=== PATIENT | female | born 1950 | race Caucasian/White ===

== ENCOUNTER 2016-08-29 19:37 | Inpatient (IN) | payer MEDICARE, OTHER ==
[2016-08-29] MEDS ORDERED: SODIUM CHLORIDE 0.9% 1,000 ML IV STA (20:14)
[2016-08-29 20:28] LABS: Basophils # (A) 0.1 k/uL (0-0.2); Basophils % (A) 1 %; CH 27.8; CHCM 33.2; Eosinophils # (A) 0.2 k/uL (0-0.7); Eosinophils % (A) 2 %; HCT 39.1 % (34.0-46.0); HDW 2.71; HGB 12.7 gm/dL (11.4-16.0); Luc # (Auto) 0.14; Luc % (Auto) 2; Lymphocytes # (A) 1.3 k/uL (1.0-4.8); Lymphocytes % (A) 14 %; MCH 27.3 pg (25.0-35.0); MCHC 32.4 g/dL (31.0-37.0); Monocytes # (A) 0.4 k/uL (0-1.0); Monocytes % (A) 5 %; Neutrophils # (A) 6.9 k/uL (1.3-7.7); Neutrophils % (A) 77 %; RBC 4.64 m/uL (3.80-5.40); RDW 15.2 % (11.5-15.5); WBC (Perox) 9.68
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
[2016-08-29] MEDS ORDERED: ONDANSETRON 4 MG/2 ML VIAL IVP STA (20:32)
[2016-08-29 20:36] LABS: ALT 34 U/L (9-52); AST 26 U/L (14-36); Alkaline Phosphatase 113 U/L (38-126); Anion Gap 13 mmol/L; Blood Urea Nitrogen 12 mg/dL (7-17); Calcium 9.5 mg/dL (8.4-10.2); Carbon Dioxide 23 mmol/L (22-30); Chloride 110 mmol/L (98-107); Glucose 113 mg/dL (74-99); Magnesium 1.8 mg/dL (1.6-2.3); Non-African American GFR(MDRD) >60 (>60 ml/min/1.73 sqM); Potassium 4.1 mmol/L (3.5-5.1); Sodium 146 mmol/L (137-145); Total Bilirubin 0.5 mg/dL (0.2-1.3); Total Protein 7.3 g/dL (6.3-8.2)
[2016-08-29 20:38] LABS: Creatine Kinase 116 U/L (30-135)
[2016-08-29 20:40] LABS: MCV 84.3 fL (80.0-100.0)
[2016-08-29 20:41] LABS: INR 1.1 (<1.1); Partial Thromboplastin Time 23.1 sec (22.0-30.0); Prothrombin Time 10.7 sec (9.0-12.0)
[2016-08-29 20:52] LABS: Creatine Kinase MB 1.2 ng/mL (0.0-2.4); Troponin I <0.012 ng/mL (0.000-0.034)
[2016-08-29] MEDS ORDERED: MORPHINE SULFATE 4 MG/ML SYRINGE IVP STA (21:39)
[2016-08-29] MEDS ORDERED: HYDROmorphone 2 MG/ML 1 ML SYRINGE IVP STA (21:40)
--- NOTE | 2016-08-29 21:43 | XR ---
EXAMINATION TYPE: XR chest 2V DATE OF EXAM: 08/29/2016 9:37 PM COMPARISON: 06/21/2016 HISTORY: Chest pain TECHNIQUE: Frontal and lateral views of the chest are obtained. FINDINGS: There is no heart failure nor confluent pneumonic infiltrate. Heart and mediastinum are no rmal. There are no hilar masses. There are chest leads. Bony thorax is intact. IMPRESSION: No active cardiopulmonary disease. No change.
[2016-08-29] MEDS ORDERED: IPRATROPIUM-ALBUTEROL 3 ML NEB INHALATION PRN (22:41)
[2016-08-29] MEDS ORDERED: IPRATROPIUM-ALBUTEROL 3 ML NEB INHALATION STA (22:41)
[2016-08-29] MEDS: FUROSEMIDE 10 MG/ML 4 ML VIAL IV SCH (22:53)
[2016-08-30] MEDS: HYDROmorphone 1 MG/ML 1 ML SYRINGE IVP PRN ×3 (00:25→08:55)
[2016-08-30] MEDS: ONDANSETRON 4 MG/2 ML VIAL IVP PRN ×2 (02:10→09:00)
[2016-08-30] MEDS: ENOXAPARIN 40 MG/0.4 ML SYRINGE SQ SCH (08:55)
[2016-08-30] MEDS ORDERED: CHOLESTYRAMINE (WITH SUGAR) 4 GM PACKET PO PRN (09:07)
[2016-08-30 09:41] LABS: Basophils % (A) 1 %; CH 27.5; CHCM 31.7; Eosinophils # (A) 0.2 k/uL (0-0.7); Eosinophils % (A) 3 %; HCT 37.4 % (34.0-46.0); HDW 2.65; HGB 11.9 gm/dL (11.4-16.0); Hypochromasia Slight; Luc % (Auto) 1; Lymphocytes # (A) 1.2 k/uL (1.0-4.8); Lymphocytes % (A) 16 %; MCH 27.6 pg (25.0-35.0); MCHC 31.7 g/dL (31.0-37.0); MCV 87.3 fL (80.0-100.0); Mean Platelet Volume 7.8; Monocytes # (A) 0.6 k/uL (0-1.0); Monocytes % (A) 7 %; Neutrophils # (A) 5.4 k/uL (1.3-7.7); Neutrophils % (A) 72 %; RBC 4.29 m/uL (3.80-5.40); RDW 15.2 % (11.5-15.5); WBC 7.5 k/uL (3.8-10.6); WBC (Perox) 7.88
[2016-08-30 09:44] LABS: ALT 39 U/L (9-52); AST 21 U/L (14-36); Alkaline Phosphatase 97 U/L (38-126); Anion Gap 14 mmol/L; Blood Urea Nitrogen 13 mg/dL (7-17); Carbon Dioxide 24 mmol/L (22-30); Chloride 108 mmol/L (98-107); Glucose 111 mg/dL (74-99); Non-African American GFR(MDRD) >60 (>60 ml/min/1.73 sqM); Potassium 4.1 mmol/L (3.5-5.1); Sodium 146 mmol/L (137-145); Total Bilirubin 0.5 mg/dL (0.2-1.3)
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
[2016-08-30] MEDS ORDERED: LISINOPRIL 2.5 MG TAB PO SCH (10:00)
[2016-08-30] MEDS ORDERED: LISINOPRIL 5 MG TAB PO SCH (10:15)
[2016-08-30] MEDS: IPRATROPIUM-ALBUTEROL 3 ML NEB INHALATION SCH ×4 (11:26→21:30)
[2016-08-30] MEDS: FUROSEMIDE 10 MG/ML 4 ML VIAL IV SCH ×3 (11:46→20:10)
[2016-08-30] MEDS: HYDROcodone/APAP 7.5-325MG 1 EACH TAB PO PRN ×3 (13:17→20:46)
--- NOTE | 2016-08-30 13:38 | CONS ---
DATE OF CONSULTATION: Renée Krishnan is a 66-year-old female who presented with increasing shortness of breath and audible wheezing and stated that she had swelling in her legs. She was at [facility]. When she came in, she was treated with IV Lasix and she felt a lot better. She follows up with Dr. Cruz in the office. In November 2015, she underwent a coronary angiogram which showed normal coronary arteries and an ejection fraction of 60%. So far, her BNP is 592, troponin is negative x2. Her blood pressure was elevated at 153/75 mmHg. Medication list was reviewed and includes cholestyramine, Lasix, trazodone, omeprazole, melatonin, metoprolol succinate 25 mg daily, levothyroxine. Allergies to KETOROLAC, NSAIDS, PROCHLORPERAZINE, TRAMADOL and MORPHINE. REVIEW OF SYSTEMS: No fever, chills, or rigors. She did have a cough, phlegm, audible wheezing. No nausea, vomiting or diarrhea. No hematuria or dysuria. No strokes or seizures. She has back pain and lower extremity swelling. On examination, she is afebrile. Her blood pressure was 153/75 mmHg and 185/77 mmHg. Head and neck examination is normal. She is morbidly obese. Heart sounds S1 and S2 are soft. Breath sounds are reduced bilaterally with bilateral rhonchi. Extremities are warm. I do not see any pitting edema. ECG is normal. Cardiac enzymes have been normal. IMPRESSION: 1. Uncontrolled hypertension. 2. Morbid obesity, likely sleep apnea. 3. Diastolic heart failure secondary to uncontrolled hypertension. 4. Noncompliance with Lasix and medical treatment. SUGGEST: Maximize RENETTA inhibitors, add spironolactone. Continue IV Lasix and in the next 1 to 2 days she can switch to p.o. Lasix. This lady was prescribed Lasix and had not been taking it. She follows with Dr. Cruz and will continue to do so. Her main problem is hypertension and it is quite likely she may have sleep apnea. Without addressing that, her problems will continue.
--- NOTE | 2016-08-30 15:05 | ECHOF ---
Referral Reason:Shortness of breath CHF MEASUREMENTS -------- HEIGHT: 157.5 cm WEIGHT: 124.7 kg BP: IVSd: 1.1 cm (0.6 - 1.1) LVIDd: 4.8 cm (3.9 - 5.3) LVPWd: 1.0 cm (0.6 - 1.1) LVIDs: 3.5 cm LA Diam: 3.6 cm (2.7 - 3.8) RVIDd: 3.0 cm (< 3.3) Ao Diam: 3.3 cm (2.0 - 3.7) LA Diam: 3.9 cm (2.7 - 3.8) AV Cusp: 1.7 cm (1.5 - 2.6) EPSS: 0.3 cm MV E Izaiah: 0.64 m/s MV DecT: 249 ms MV A Izaiah: 1.23 m/s MV E/A Ratio: 0.52 RAP: 5.00 mmHg RVSP: 16.86 mmHg MV EF SLOPE: 116.60 mm/s (70 - 150) MV EXCURSION: 19.09 mm (> 18.000) FINDINGS -------- Sinus rhythm. This was a technically adequate study. Morbid Obesity There is mild concentric left ventricular hypertrophy. Overall left ventricular systolic function is low-normal with, an EF between 50 - 55 %. The right ventricle is normal in size. The left atrial size is normal. The right atrial size is normal. There is mild aortic valve sclerosis. There is no evidence of aortic regurgitation. Mild mitral annular calcification present. Mild mitral regurgitation is present. Mild tricuspid regurgitation present. There is no evidence of pulmonary hypertension. The right ventricular systolic pressure, as measured by Doppler, is 16.86mmHg. There is no pulmonic regurgitation present. The aortic root size is normal. There is no pericardial effusion. CONCLUSIONS -------- 1. Morbid Obesity 2. There is mild concentric left ventricular hypertrophy. 3. Overall left ventricular systolic function is low-normal with, an EF between 50 - 55 %. 4. There is mild aortic valve sclerosis. 5. Mild mitral annular calcification present. 6. Mild mitral regurgitation is present. 7. Mild tricuspid regurgitation present. 8. There is no evidence of pulmonary hypertension. 9. The right ventricular systolic pressure, as measured by Doppler, is 16.86mmHg. TRAINING AND DEVELOPMENT ASSISTANT: Jeni Shipley RDCS
--- NOTE | 2016-08-30 15:14 | CONS ---
DATE OF CONSULTATION: Renée Krishnan is a 66-year-old female who presented to the ED at [facility] with increasing shortness of breath. She had recently been at [facility] when she had fallen down and was there for approximately 7 days. She subsequently was sent to the rehab and gained about 30 pounds, most likely of fluid. She had been home and subsequently became worse as far as shortness of breath goes. She came to the ER and was admitted for further evaluation. She denied any fever or chills. The patient also had been having some occasional cough and some wheezing. Past medical history is positive for angina, congestive heart failure, osteoarthritis, upper GI bleed, peptic ulcer disease, prolapsed heart valve, irregular heartbeat occasionally, nephrolithiasis, eczema, chronic lower extremity edema, right lower extremity fracture, C. difficile colitis, adenoidectomy, bladder surgery, cholecystectomy, joint replacement in the form of right knee replacement, right knee arthroscopy, left hip replacement. Family history is positive for cancer in her father who of lung cancer. Mother had a history of coronary artery disease and lupus. The patient is a never smoker, does not drink alcohol excessively. Medications prior to admission were trazodone, omeprazole, Toprol XL, melatonin, Synthroid, hydrocodone with acetaminophen, Lasix, cholestyramine. The patient is allergic to TORADOL, NONSTEROIDAL ANTI-INFLAMMATORIES, COMPAZINE, MORPHINE and TRAMADOL. Review of systems is noncontributory except for obesity. On physical examination, respiratory rate is 18, pulse rate 82, temperature 97.5, blood pressure 143/71, O2 sat on room air is 95%. HEENT reveals pupils are equal. Mild prominence of the jugular vein. Chest reveals decreased breath sounds, prolonged expiration wheeze only on forced expiration. There are occasional basal crackles. Cardiovascular system reveals an S1 and S2. Abdomen is soft. There is 2+ pedal edema. Labs reveal a white count of 9, hemoglobin 12.7. Sodium 146, potassium 4.1, chloride 110, bicarb 23. Glucose 113. Albumin 4.4. Lipase is 164. NT-proBNP of 592. Troponin less than 0.012. Chest x-ray shows no active cardiopulmonary disease. IMPRESSION: 1. Shortness of breath that is multifactorial in part due to obesity and congestive heart failure due to most likely diastolic etiology with acute exacerbation. 2. Asthma. 3. Super obesity. 4. Narcotic dependence. 5. Possible obstructive sleep apnea though patient insists that she does not have obstructive sleep apnea as she apparently does not snore. At this point in time, would continue her on albuterol with ipratropium, aggressively diurese her with Lasix, keep her on GI and DVT prophylaxis. Add inhaled steroids to her regimen. Increase her activity level. We will follow closely with you and appreciate the opportunity to participate in her care.
[2016-08-30] MEDS: PANTOPRAZOLE 40 MG TABLET PO SCH (17:00)
[2016-08-30] MEDS: traZODone HCL 50 MG TAB PO SCH (20:07)
[2016-08-30] MEDS: MELATONIN 5 MG TABLET PO SCH (20:07)
[2016-08-30] MEDS: ALPRAZolam 0.25 MG TAB PO PRN (20:46)
[2016-08-30] MEDS ORDERED: LISINOPRIL 10 MG TAB PO SCH (21:00)
[2016-08-30] MEDS: BUDESONIDE 0.5 MG/2 ML NEBU INHALATION SCH (21:30)
[2016-08-31] MEDS: HYDROcodone/APAP 7.5-325MG 1 EACH TAB PO PRN ×5 (00:49→22:47)
[2016-08-31] MEDS ORDERED: LEVOTHYROXINE 75 MCG TAB PO SCH (06:30)
[2016-08-31] MEDS: IPRATROPIUM-ALBUTEROL 3 ML NEB INHALATION SCH ×4 (08:18→19:44)
[2016-08-31] MEDS: BUDESONIDE 0.5 MG/2 ML NEBU INHALATION SCH ×2 (08:18→19:44)
[2016-08-31 08:30] LABS: Potassium 4.7 mmol/L (3.5-5.1); Total Bilirubin 0.6 mg/dL (0.2-1.3); Total Protein 6.4 g/dL (6.3-8.2)
--- NOTE | 2016-08-31 10:04 | P.PN ---
Subjective 66-year-old female being seen this morning on rounds. Patient states that she could not take the IV Lasix last evening "did not want to be up on my going to the bathroom" the Lasix dose was held. Did note the creatinine is up this morning 2.1 on admission the creatinine was 0.8 did note the patient additionally had a low blood pressure systolic in the 70s at 4:00 in the morning currently patient states breathing feels slightly improved but continues to feel short of breath with any exertion. Did note cardiology's recommendations maximize the RENETTA inhibitor , Aldactone continue IV Lasix for the next couple days. It's also noted the patient has not been compliant in the outpatient setting with taking Lasix additionally pulmonology consultation was requested recommendations noted and appreciated and reviewed. Patient's shortness of breath was felt to be multifactorial partly due to morbid obesity congestive heart failure likely diastolic with an acute exacerbation. Patient likely has obstructive sleep apnea even though the patient insists that she does not snore Currently we'll hold lisinopril Lasix and Aldactone given the creatinine going up to 2 Echocardiogram was obtained did show an ejection fraction 50-55% no evidence of pulmonary hypertension Objective - Vital Signs Vital signs: Vital Signs Temp 97.4 F L 08/31/16 07:39 Pulse 86 08/31/16 08:36 Resp 18 08/31/16 07:39 BP 100/55 08/31/16 07:39 Pulse Ox 96 08/31/16 08:22 Intake & Output 08/30/16 08/31/16 08/31/16 18:59 06:59 18:59 Intake Total 360 240 Balance 360 240 Weight 147.5 kg Intake: Oral 360 240 Other: Voiding Method Bedside Commode Bedside Commode # Voids 1 1 # Bowel Movements 0 - Exam Physical exam 66-year-old female resting in bed states breathing feels slightly improved but continues to feel short of breath with exertion Lungs no audible wheezing diminished at the bases upper airways adequate air movement sats are 93% on room air Heart S1-S2 audible regular denying chest pain Abdomen obese soft nontender states urinating no difficulty denying any frequent stooling Extremities a trace pedal edema bilaterally - Labs CBC & Chem 7: 08/30/16 06:14 08/31/16 07:26 Labs: Abnormal Lab Results - Last 24 Hours (Table) 01/29/17 Range/Units 07:26 BUN 23 H (7-17) mg/dL Creatinine 2.13 H (0.52-1.04) mg/dL Glucose 105 H (74-99) mg/dL TSH 6.520 H (0.465-4.680) mIU/L Assessment and Plan Plan: Impression Present on admission shortness of breath increase edema to the lower extremities suspect exacerbation asthma and diastolic heart failure Super morbid obesity BMI 50.3 Heart catheterization November 2015 no evidence of coronary artery occlusive disease EF per LV gram 60% Chronic lower back pain narcotic dependence History of osteoarthritis involving the lumbar spine History of irritable bowel syndrome Hypothyroid on supplements EGD in June 2016 showed gastritis no acute findings Super morbid obesity suspect undiagnosed obstructive sleep apnea Chronic diastolic heart failure Acute renal failure suspect due to diuresing and hypovolemic Echocardiogram left ventricular systolic function normal EF 50-55% with no pulmonary hypertension echo done August 30 Plan Resume home meds as appropriate hold RENETTA inhibitor, Lasix, Aldactone Start aerosol bronchodilator Patient would benefit from Weight loss Monitor electrolytes keep in a therapeutic range DVT and GI prophylaxis Lasix 40 IV every 12 monitor the response we'll hold given creatinine up Low-sodium diet Daily weights Start RENETTA inhibitor monitor blood pressure and potassium level will hold Further recommendations pending will follow The above dictated assessment and findings were discussed with dr paez. Impression and the plan of care have been dictated as directed. Tessa Hawk nurse practitioner acting as a scribe for dr paez
[2016-08-31] MEDS: ALPRAZolam 0.25 MG TAB PO PRN ×2 (10:06→21:44)
[2016-08-31] MEDS: METOPROLOL SUCCINATE (ER) 25 MG TAB.ER.24H PO SCH (10:07)
[2016-08-31] MEDS: PANTOPRAZOLE 40 MG TABLET PO SCH ×2 (10:07→18:46)
[2016-08-31] MEDS: ENOXAPARIN 40 MG/0.4 ML SYRINGE SQ SCH (10:07)
[2016-08-31] MEDS: SPIRONOLACTONE 25 MG TAB PO SCH (10:15)
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
[2016-08-31] MEDS: SODIUM CHLORIDE 0.9% 1,000 ML IV SCH (11:21)
[2016-08-31] MEDS ORDERED: LEVOTHYROXINE 25 MCG TAB PO ONE (12:00)
--- NOTE | 2016-08-31 12:37 | US ---
EXAMINATION TYPE: US kidneys/renal and bladder DATE OF EXAM: 08/31/2016 12:27 PM COMPARISON: NONE CLINICAL HISTORY: [facility] EXAM MEASUREMENTS: Right Kidney: 9.6 x 5.6 x 5.4 cm Left Kidney: unable to visualize at this time TECHNOLOGIST IMPRESSION: portions visualized appear wnl. Limited examination due to body habitus, lo w patient tolerance (disgruntled about getting examination), and low cooperation (not rolling or hold ing breath during exam). Right Kidney: portions visualized appear wnl Left Kidney: not visualized at this time Bladder: not seen at this time likely due to bladder not filled Bilateral Jets seen: Not at this time There is no evidence for hydronephrosis at this point in time. No nephrolithiasis is seen. No celestine s are identified. The urinary bladder is anechoic. IMPRESSION: The right kidney is small without evidence of mass or obstruction. Left kidney is not identified.
[2016-08-31 14:27] LABS: Amorphous Sediment,Urine Rare /hpf; Appearance,Urine Turbid (Clear); Bacteria,Urine Few /hpf; Bilirubin,Urine Negative (Negative); Glucose,Urine (UA) Negative (Negative); Ketones,Urine Trace (Negative); Leukocyte Esterase,Urine Large (Negative); Mucus,Urine Occasional /hpf; Nitrite,Urine Negative (Negative); Particle Count 16089; Protein,Urine 1+ (Negative); Squamous Epithelial Cell,Urine 2 /hpf (0-4); UA Billing (MACRO vs. MICRO) MICRO; Urobilinogen,Urine <2.0 mg/dL (<2.0); WBC,Urine >182 /hpf (0-5)
--- NOTE | 2016-08-31 18:12 | PN ---
Renée Krishnan is a 66-year-old female who came in with fluctuating but elevated blood pressures. She is lying comfortably in bed today. Her blood pressure is in the mid 90s to low 100s. I started on RENETTA inhibitors and spironolactone. Today her blood pressure is 93/45 mm of mercury and 82/55 millimeters of mercury, her Lasix was discontinued. She is afebrile, heart rate is in the 80s. Head and neck examination is normal. Heart sounds are normal. Breath sounds are normal. No rhonchi. No crackles. EXTREMITIES: Warm. No edema. IMPRESSION: Uncontrolled hypertension currently now with low blood pressure. Suggest: Hold spironolactone and hold the Zestril for now. We will restart at a low dose tomorrow.
[2016-08-31] MEDS: traZODone HCL 50 MG TAB PO SCH (21:44)
[2016-08-31] MEDS: MELATONIN 5 MG TABLET PO SCH (21:44)
[2016-08-31] MEDS: MORPHINE SULFATE ER 15 MG TABLET PO PRN (21:44)
[2016-08-31] MEDS: CIPROFLOXACIN HCL 250 MG TAB PO SCH (21:44)
[2016-09-01] MEDS: LEVOTHYROXINE 100 MCG TAB PO SCH (05:23)
[2016-09-01] MEDS: LEVOTHYROXINE 75 MCG TAB PO SCH (05:23)
[2016-09-01] MEDS: HYDROcodone/APAP 7.5-325MG 1 EACH TAB PO PRN ×3 (05:44→22:32)
[2016-09-01] MEDS: SODIUM CHLORIDE 0.9% 1,000 ML IV SCH (05:46)
[2016-09-01 07:32] LABS: Basophils % (A) 1 %; CH 27.2; CHCM 31.5; Eosinophils # (A) 0.3 k/uL (0-0.7); Eosinophils % (A) 7 %; HCT 34.7 % (34.0-46.0); HDW 2.59; HGB 10.9 gm/dL (11.4-16.0); Hypochromasia Slight; Luc # (Auto) 0.17; Luc % (Auto) 3; Lymphocytes # (A) 1.3 k/uL (1.0-4.8); Lymphocytes % (A) 25 %; MCH 27.3 pg (25.0-35.0); MCHC 31.5 g/dL (31.0-37.0); MCV 86.6 fL (80.0-100.0); Mean Platelet Volume 6.7; Monocytes # (A) 0.4 k/uL (0-1.0); Monocytes % (A) 8 %; Neutrophils # (A) 2.9 k/uL (1.3-7.7); Neutrophils % (A) 57 %; RDW 14.7 % (11.5-15.5); WBC 5.1 k/uL (3.8-10.6); WBC (Perox) 5.49
[2016-09-01 07:45] LABS: Potassium 4.4 mmol/L (3.5-5.1); Total Bilirubin 0.5 mg/dL (0.2-1.3); Total Protein 6.2 g/dL (6.3-8.2)
[2016-09-01] MEDS: IPRATROPIUM-ALBUTEROL 3 ML NEB INHALATION SCH ×4 (08:25→19:53)
[2016-09-01] MEDS: BUDESONIDE 0.5 MG/2 ML NEBU INHALATION SCH ×2 (08:25→19:53)
[2016-09-01] MEDS: CIPROFLOXACIN HCL 250 MG TAB PO SCH ×2 (09:53→21:10)
[2016-09-01] MEDS: PANTOPRAZOLE 40 MG TABLET PO SCH ×2 (09:53→18:24)
[2016-09-01] MEDS: METOPROLOL SUCCINATE (ER) 25 MG TAB.ER.24H PO SCH (09:55)
[2016-09-01] MEDS: MORPHINE SULFATE ER 15 MG TABLET PO PRN ×2 (09:55→21:11)
[2016-09-01] MEDS: ALPRAZolam 0.25 MG TAB PO PRN ×3 (09:59→21:10)
--- NOTE | 2016-09-01 10:11 | PN ---
DATE OF SERVICE: 08/31/2016 She is less short of breath but feels weak today. She has had some episodes of hypotension. Her last blood pressure was 82/51 with a mean of 61, respiratory rate 18, pulse rate of 78, temperature 97.7, O2 sat on room air is 99%. HEENT reveals pupils are equal. Chest reveals decreased breath sounds at the base. Cardiovascular system reveals S1 and S2. Abdomen is soft. There is 1+ to 2+ pedal edema. BUN is 23, creatinine 2.13. Sodium 142, potassium 4.7, chloride 106, bicarbonate 25. IMPRESSION: 1. Congestive heart failure. 2. Morbid obesity. 3. Obstructive sleep apnea is likely, patient declined further work-up. 4. Acute renal failure, in part due to hypovolemia. At this point in time, would agree with holding the loop diuretic in the form of Lasix. Continue to hold the spironolactone as well. Allow her to retain some fluid. Echocardiogram shows no evidence of pulmonary hypertension at this time. Patient's prognosis is overall guarded.
--- NOTE | 2016-09-01 11:06 | P.PN ---
Subjective Patient is seen in follow for acute kidney injury. Her basic creatinine is near 1 and was elevated at 2.1 yesterday. She was noted to be hypotensive and was also maintained on multiple diuretics. Diuretics are currently held. Renal function is improved with creatinine of 1.5 today. She did receive IV fluids for a few hours yesterday. Her IV malfunctioned and she refused further IV fluids thereafter. She does admit to dyspnea with minimal exertion. States she has gained a lot of weight while at the rehab. Vital signs are stable. General: The patient appeared well nourished and normally developed. HEENT: Head exam is unremarkable. Neck is without jugular venous distension. LUNGS: Lungs are clear to auscultation and percussion. Breath sounds decreased. HEART: Rate and Rhythm are regular. First and second heart sounds normal. No murmurs, rubs or gallops. ABDOMEN: Abdominal exam reveals normal bowel sounds. Non-tender and non- distended. No evidence of peritonitis. EXTREMITITES: No clubbing, cyanosis, or edema. Objective - Vital Signs Vital signs: Vital Signs Temp 97.8 F 09/01/16 07:53 Pulse 77 09/01/16 07:53 Resp 18 09/01/16 07:53 BP 113/56 09/01/16 07:53 Pulse Ox 99 09/01/16 07:53 Intake & Output 08/31/16 09/01/16 09/01/16 18:59 06:59 18:59 Intake Total 480 150 Output Total 60 Balance 420 150 Weight 157 kg Intake: Oral 480 150 Output: Urine 60 Other: Voiding Method Bedside Commode Bedside Commode Bedside Commode # Voids 1 1 - Labs CBC & Chem 7: 09/01/16 07:13 09/01/16 07:13 Labs: Abnormal Lab Results - Last 24 Hours (Table) 08/31/16 09/01/16 09/01/16 Range/Units 13:35 07:13 07:13 Hgb 10.9 L (11.4-16.0) gm/dL BUN 33 H (7-17) mg/dL Creatinine 1.56 H (0.52-1.04) mg/dL Glucose 104 H (74-99) mg/dL Total Protein 6.2 L (6.3-8.2) g/dL Urine Appearance Turbid H (Clear) Urine Protein 1+ H (Negative) Urine Ketones Trace H (Negative) Ur Leukocyte Esterase Large H (Negative) Urine WBC >182 H (0-5) /hpf Urine WBC Clumps Many H (None) /hpf Amorphous Sediment Rare H (None) /hpf Urine Bacteria Few H (None) /hpf Hyaline Casts 16 H (0-2) /lpf Urine Mucus Occasional H (None) /hpf Assessment and Plan Plan: Assessment: #1. Nonoliguric acute kidney injury mostly prerenal in nature secondary to diuretics and hypotension. Creatinine improved to 1.5 today. Baseline creatinine 0.8. #2. Hypotension. Patient was on multiple antihypertensives. Improved. #3. Morbid obesity. #4. Pyuria. Plan: Agree with holding diuretics as well as lisinopril at this time. Hep-Lock IV fluids. Avoid nephrotoxic agents and hypotensive episodes. Repeat electrolytes in the morning. Check urine culture. Repeat chest x-ray. No evidence of fluid overload noted on chest x-ray done at admission.
[2016-09-01] MEDS: ENOXAPARIN 40 MG/0.4 ML SYRINGE SQ SCH (13:10)
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
--- NOTE | 2016-09-01 16:06 | XR ---
EXAMINATION TYPE: XR chest 1V portable DATE OF EXAM: 09/01/2016 3:22 PM HISTORY: Shortness of breath. COMPARISON: 08/29/2016 TECHNIQUE: Single view of the chest is submitted. FINDINGS: Demonstrated are scattered senescent parenchymal change. There is increased density left lower lobe. Underlying infiltrate is difficult to exclude. Correlate clinically and consider standard views of the chest. The heart is stable. Hilar and mediastinal structures are within normal limits. Degenerative changes are seen of the dorsal spine. IMPRESSION: 1. There is increased density left lower lobe. Underlying infiltrate is difficult to exclude. Correl ate clinically and consider standard views of the chest.
[2016-09-01] MEDS: MELATONIN 5 MG TABLET PO SCH (21:10)
[2016-09-01] MEDS: traZODone HCL 50 MG TAB PO SCH (21:10)
[2016-09-01] MEDS: LISINOPRIL 10 MG TAB PO SCH (21:13)
[2016-09-02] MEDS: BUDESONIDE 0.5 MG/2 ML NEBU INHALATION SCH ×2 (07:41→18:55)
[2016-09-02] MEDS: IPRATROPIUM-ALBUTEROL 3 ML NEB INHALATION SCH ×4 (07:41→18:55)
[2016-09-02 07:45] LABS: Basophils % (A) 1 %; CH 27.2; CHCM 31.2; Eosinophils # (A) 0.3 k/uL (0-0.7); Eosinophils % (A) 8 %; HCT 35.2 % (34.0-46.0); HDW 2.57; Hypochromasia Slight; Luc # (Auto) 0.13; Luc % (Auto) 3; Lymphocytes # (A) 1.1 k/uL (1.0-4.8); Lymphocytes % (A) 25 %; MCH 27.4 pg (25.0-35.0); MCHC 31.4 g/dL (31.0-37.0); MCV 87.4 fL (80.0-100.0); Mean Platelet Volume 6.7; Monocytes # (A) 0.3 k/uL (0-1.0); Monocytes % (A) 6 %; Neutrophils # (A) 2.4 k/uL (1.3-7.7); Neutrophils % (A) 57 %; RBC 4.02 m/uL (3.80-5.40); RDW 14.5 % (11.5-15.5); WBC 4.2 k/uL (3.8-10.6); WBC (Perox) 4.65
[2016-09-02 08:00] LABS: ALT 33 U/L (9-52); AST 18 U/L (14-36); Alkaline Phosphatase 88 U/L (38-126); Anion Gap 11 mmol/L; Blood Urea Nitrogen 25 mg/dL (7-17); Carbon Dioxide 25 mmol/L (22-30); Chloride 106 mmol/L (98-107); Glucose 101 mg/dL (74-99); Non-African American GFR(MDRD) >60 (>60 ml/min/1.73 sqM); Sodium 142 mmol/L (137-145); Total Bilirubin 0.5 mg/dL (0.2-1.3); Total Protein 6.1 g/dL (6.3-8.2)
[2016-09-02] MEDS: MORPHINE SULFATE ER 15 MG TABLET PO PRN (08:18)
[2016-09-02] MEDS: ENOXAPARIN 30 MG/0.3 ML SYRINGE SQ SCH (08:18)
[2016-09-02] MEDS: LEVOTHYROXINE 100 MCG TAB PO SCH (08:19)
[2016-09-02] MEDS: METOPROLOL SUCCINATE (ER) 25 MG TAB.ER.24H PO SCH (08:19)
[2016-09-02] MEDS: CIPROFLOXACIN HCL 250 MG TAB PO SCH ×2 (08:19→21:20)
[2016-09-02] MEDS: PANTOPRAZOLE 40 MG TABLET PO SCH ×2 (08:20→17:47)
[2016-09-02] MEDS: LEVOTHYROXINE 75 MCG TAB PO SCH (08:20)
[2016-09-02] MEDS: ALPRAZolam 0.25 MG TAB PO PRN ×2 (08:24→21:20)
[2016-09-02] MEDS ORDERED: FUROSEMIDE 10 MG/ML 10 ML VIAL IV STA (10:41)
[2016-09-02] MEDS ORDERED: FUROSEMIDE 20 MG TAB PO STA (10:48)
[2016-09-02] MEDS: oxyCODONE-APAP 10-325MG 1 EACH TAB PO PRN ×3 (11:11→23:00)
[2016-09-02] MEDS: LIDOCAINE 5% PATCH TOPICAL SCH (11:50)
--- NOTE | 2016-09-02 11:51 | PN ---
She was seen on 09/02/2016. She has remained hemodynamically stable. She has some increase in her shortness of breath. Blood pressure has been doing better overall. On physical examination, her blood pressure 122/78, respiratory rate 18, pulse rate 87, temperature 97.8, O2 sat on room air is 94%. HEENT is unremarkable. Chest reveals decreased breath sounds at bases. Cardiovascular system reveals an S1 and S2. Abdomen is soft. There is 1+ to 2+ pedal edema. White count is 4.2, hemoglobin of 11. Sodium 142, potassium 5, chloride 106, bicarb 25, BUN 25, creatinine 0.85. Urine leukocyte esterase is large with greater than 182 WBCs. IMPRESSION AT THIS TIME: 1. Congestive heart failure. 2. Obesity. 3. Urinary tract infection. 4. Acute kidney injury. Continue antibiotics. Upon review of her I's and O's. Her weight has gone up from 124 kg to 157 kg. She most likely has been retaining fluid. Will give her a single dose of Lasix today to hopefully optimize her fluid status. Otherwise, she may start to get worse from a pulmonary standpoint. She was counseled regarding her condition and this approach.
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
--- NOTE | 2016-09-02 13:14 | P.PN ---
Subjective Patient is having multiple nonspecific complaints today. She's complaining of neck pain and discomfort. She is also concerned that she started retaining fluid after her Lasix was stopped during this admission. She denies any shortness of breath or chest pain. Objective - Vital Signs Vital signs: Vital Signs Temp 98.3 F 09/02/16 12:00 Pulse 79 09/02/16 12:00 Resp 18 09/02/16 12:00 BP 120/59 09/02/16 12:00 Pulse Ox 95 09/02/16 12:00 Intake & Output 09/01/16 09/02/16 09/02/16 18:59 06:59 18:59 Intake Total 444 120 Output Total 225 Balance 219 120 Weight 157 kg Intake: Oral 444 120 Output: Urine 225 Other: Voiding Method Bedside Commode Bedside Commode Bedside Commode # Voids 1 3 1 - Exam General: The patient is awake and alert, in no distress Eye: there is normal conjunctiva bilaterally. Neck: The neck is supple, there is no JVD. Cardiovascular: Normal S1-S2, no S3-S4, no murmurs. Respiratory: Lungs clear to auscultation bilaterally Gastrointestinal: Abdomen is soft, nontender Musculoskeletal: There is no pedal edema. Neurological:. Speech is normal. Skin: Skin is warm and dry - Labs CBC & Chem 7: 09/02/16 07:06 09/02/16 07:06 Labs: Abnormal Lab Results - Last 24 Hours (Table) 09/02/16 09/02/16 Range/Units 07:06 07:06 Hgb 11.0 L (11.4-16.0) gm/dL BUN 25 H (7-17) mg/dL Glucose 101 H (74-99) mg/dL Total Protein 6.1 L (6.3-8.2) g/dL Microbiology - Last 24 Hours (Table) 09/01/16 13:32 Urine Culture - Preliminary Urine,Voided Assessment and Plan Plan: 1. Shortness of breath or lower extremity edema present on admission possibly secondary to diastolic congestive heart failure exacerbation. 2. Acute diastolic CHF exacerbation secondary to uncontrolled hypertension. Evaluated by cardiology. Will resume diuresis today with Lasix as kidney function is back to normal 3. Morbid obesity 4. Acute kidney injury mostly prerenal secondary to diuretics and hypotension. Creatinine is back to normal range. Nephrology following. 5. UTI patient started on Cipro. Await urine culture. 6. Neck pain with previous MRI of the neck in July after injury. Pain medication adjusted by pain management team. Continue current regimen otherwise. Repeat lab work in the morning. Anticipate discharge home tomorrow.
[2016-09-02] MEDS: LISINOPRIL 10 MG TAB PO SCH (21:20)
[2016-09-02] MEDS: traZODone HCL 50 MG TAB PO SCH (21:21)
[2016-09-02] MEDS: MELATONIN 5 MG TABLET PO SCH (21:21)
[2016-09-03] MEDS: LEVOTHYROXINE 75 MCG TAB PO SCH (05:35)
[2016-09-03] MEDS: oxyCODONE-APAP 10-325MG 1 EACH TAB PO PRN ×4 (05:35→21:02)
[2016-09-03] MEDS: LEVOTHYROXINE 100 MCG TAB PO SCH (05:35)
[2016-09-03] MEDS: LIDOCAINE 5% PATCH TOPICAL SCH (08:10)
[2016-09-03] MEDS: PANTOPRAZOLE 40 MG TABLET PO SCH ×2 (08:11→17:59)
[2016-09-03] MEDS: CIPROFLOXACIN HCL 250 MG TAB PO SCH ×2 (08:12→21:02)
[2016-09-03] MEDS: ENOXAPARIN 30 MG/0.3 ML SYRINGE SQ SCH (08:12)
[2016-09-03] MEDS: METOPROLOL SUCCINATE (ER) 25 MG TAB.ER.24H PO SCH (08:12)
[2016-09-03] MEDS: FUROSEMIDE 40 MG TAB PO SCH (08:12)
[2016-09-03] MEDS: ALPRAZolam 0.25 MG TAB PO PRN ×3 (08:15→21:01)
[2016-09-03] MEDS: BUDESONIDE 0.5 MG/2 ML NEBU INHALATION SCH ×2 (08:29→19:49)
[2016-09-03] MEDS: IPRATROPIUM-ALBUTEROL 3 ML NEB INHALATION SCH ×4 (08:30→19:49)
[2016-09-03 08:44] LABS: Basophils # (A) 0.1 k/uL (0-0.2); Basophils % (A) 1 %; CH 27.5; CHCM 31.7; Eosinophils # (A) 0.3 k/uL (0-0.7); Eosinophils % (A) 6 %; HCT 36.2 % (34.0-46.0); HDW 2.54; HGB 11.2 gm/dL (11.4-16.0); Luc # (Auto) 0.12; Luc % (Auto) 2; Lymphocytes # (A) 1.1 k/uL (1.0-4.8); Lymphocytes % (A) 20 %; MCHC 30.9 g/dL (31.0-37.0); MCV 87.1 fL (80.0-100.0); Mean Platelet Volume 8.3; Monocytes # (A) 0.5 k/uL (0-1.0); Monocytes % (A) 8 %; Neutrophils # (A) 3.7 k/uL (1.3-7.7); Neutrophils % (A) 64 %; RBC 4.16 m/uL (3.80-5.40); RDW 14.7 % (11.5-15.5); WBC 5.7 k/uL (3.8-10.6); WBC (Perox) 6.37
[2016-09-03 09:03] LABS: Calcium 9.3 mg/dL (8.4-10.2); Total Bilirubin 0.7 mg/dL (0.2-1.3); Total Protein 6.6 g/dL (6.3-8.2)
--- NOTE | 2016-09-03 09:38 | PN ---
DATE OF SERVICE: 09/03/2016 She has been hemodynamically stable. No episodes of hypotension. She has some improvement in her shortness of breath and did urinate after the oral Lasix yesterday. She complains of pain in the right flank. On physical examination, blood pressure 103/56, respiratory rate of 20, pulse rate of 60, temperature 97.5, O2 sat on 2 L by nasal cannula is 95%. HEENT is unremarkable. Chest reveals decreased breath sounds in the base. Cardiovascular system reveals an S1 and S2. Abdomen is soft. There is 1+ to 2+ pedal edema. IMPRESSION: 1. Congestive heart failure. 2. Obesity. 3. Urinary tract infection. 4. Acute kidney injury. Continue to optimize her fluid status. Continue antibiotics for her urinary tract infection. Continue pain management. Urine culture has shown greater than 100,000 ( ) and/or genital adria and may have essentially been a poor specimen. Will follow her closely during her hospital stay.
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
[2016-09-03] MEDS: ONDANSETRON ODT 4 MG TAB PO PRN ×2 (12:29→21:12)
--- NOTE | 2016-09-03 16:20 | PN ---
Patient is seen for followup for acute kidney injury. Her renal function had improved with serum creatinine down to 0.85 mg/dL yesterday, and today her creatinine is back up to 1.57. Blood pressure is noted to be on the lower side. Patient did have increased lower extremity edema, for which she had received Lasix. On examination, blood pressure is 90/52, heart rate 73 per minute. She is afebrile. EXAMINATION OF THE HEART: S1 and S2. EXAMINATION OF LUNGS: Bilateral breath sounds are heard. ABDOMEN: Soft, nontender. Examination of lower extremities shows edema 1+ bilaterally. BIAS BINDING FOLDER exam is grossly intact. Labs show sodium 141, potassium 5.0, BUN 34, serum creatinine 1.57. Hemoglobin 11.2 g/dL. ASSESSMENT: 1. Acute kidney injury associated with hypoperfusion. I will discontinue the lisinopril for now, as blood pressure remains on the lower side. We can continue with the Lasix. There is evidence of significant WBCs in the urine; however, urine culture did not grow anything specific. Patient is maintained on Cipro. Will repeat labs in a.m. Doubt underlying acute interstitial nephritis at this time. 2. Acute kidney injury on initial admission, mainly prerenal, with improvement in renal function and creatinine going down to 0.8 yesterday. PLAN: Discontinue lisinopril. Repeat labs in a.m. May continue with the Lasix for now.
[2016-09-03] MEDS: traZODone HCL 50 MG TAB PO SCH (21:02)
[2016-09-03] MEDS: MELATONIN 5 MG TABLET PO SCH (21:02)
--- NOTE | 2016-09-03 22:38 | P.PN ---
Subjective Principal diagnosis: Acute renal failure, CHF This is 66-year-old female is admitted with acute renal failure and uncontrolled hypertension. Patient was started on RENETTA inhibitor or so and also spinal lactone and patient developed hypotension. Patient is taken off diuretics and also RENETTA inhibitor. Today's blood pressure still low. Her creatinine has gone up to 1.5. Patient was seen by nephrology . It was suggested to discontinue lisinopril and continue with Lasix. Patient is alert but complaints of having flank discomfort and also some vague chest discomfort. Her blood pressure running in the range of 80-90. Objective - Vital Signs Vital signs: Vital Signs Temp 97.4 F L 09/03/16 14:55 Pulse 90 09/03/16 15:51 Resp 18 09/03/16 14:55 BP 94/50 09/03/16 14:55 Pulse Ox 96 09/03/16 14:55 Intake & Output 09/03/16 09/03/16 09/04/16 06:59 18:59 06:59 Intake Total 600 0 Balance 600 0 Intake: Oral 600 0 Other: Voiding Method Bedside Commode Bedside Commode # Voids 2 0 - Exam GENERAL EXAM: Patient is alert and oriented and planes of planned pain and also mild chest discomfort HEENT: Normocephalic. Normal reaction of pupils, equal size, normal range of extraocular motion. No erythema or exudates in the throat. NECK: No masses, no nuchal rigidity. CHEST: No chest wall deformity. LUNGS: Equal air entry with no crackles or wheeze. HEART: S1 and S2 normal with no audible mumurs or gallops. Regular rhythm, femorals equal on both sides.. ABDOMEN: No hepatosplenomegaly, normal bowel sounds, no guarding or rigidity. SKIN: No rashes CENTRAL NERVOUS SYSTEM: No focal deficits. EXTREMITIES: No cyanosis, clubbing or edema. - Labs CBC & Chem 7: 09/03/16 07:46 09/03/16 07:46 Labs: Abnormal Lab Results - Last 24 Hours (Table) 09/03/16 09/03/16 Range/Units 07:46 07:46 Hgb 11.2 L (11.4-16.0) gm/dL MCHC 30.9 L (31.0-37.0) g/dL BUN 34 H (7-17) mg/dL Creatinine 1.57 H (0.52-1.04) mg/dL Microbiology - Last 24 Hours (Table) 09/01/16 13:32 Urine Culture - Final Urine,Voided Assessment and Plan (1) Atypical chest pain Status: Acute (2) CHF (congestive heart failure) Status: Acute (3) Morbid obesity Status: Acute (4) Obesity hypoventilation syndrome Status: Acute (5) Hypertension Status: Acute Plan: Because of the low blood pressure will be on hold RENETTA inhibitor. Diuretic doses as per nephrology. Patient has atypical chest pain. The rest of the medication to be continued. We'll follow.
[2016-09-04] MEDS: LEVOTHYROXINE 75 MCG TAB PO SCH (05:48)
[2016-09-04] MEDS: LEVOTHYROXINE 100 MCG TAB PO SCH (05:48)
[2016-09-04] MEDS: oxyCODONE-APAP 10-325MG 1 EACH TAB PO PRN ×2 (06:05→20:00)
[2016-09-04] MEDS: METOPROLOL SUCCINATE (ER) 25 MG TAB.ER.24H PO SCH (07:51)
[2016-09-04] MEDS: ENOXAPARIN 30 MG/0.3 ML SYRINGE SQ SCH (07:55)
[2016-09-04] MEDS: FUROSEMIDE 40 MG TAB PO SCH (07:55)
[2016-09-04] MEDS: LIDOCAINE 5% PATCH TOPICAL SCH (07:56)
[2016-09-04] MEDS: CIPROFLOXACIN HCL 250 MG TAB PO SCH ×2 (07:56→20:19)
[2016-09-04] MEDS: PANTOPRAZOLE 40 MG TABLET PO SCH ×2 (07:56→17:48)
[2016-09-04] MEDS: BUDESONIDE 0.5 MG/2 ML NEBU INHALATION SCH ×2 (08:25→20:06)
[2016-09-04] MEDS: IPRATROPIUM-ALBUTEROL 3 ML NEB INHALATION SCH ×4 (08:25→20:06)
[2016-09-04] MEDS ORDERED: LISINOPRIL 2.5 MG TAB PO SCH (09:00)
[2016-09-04 10:20] LABS: Basophils % (A) 1 %; CH 27.3; Eosinophils # (A) 0.3 k/uL (0-0.7); Eosinophils % (A) 4 %; HCT 34.7 % (34.0-46.0); HDW 2.53; HGB 11.3 gm/dL (11.4-16.0); Luc # (Auto) 0.21; Luc % (Auto) 3; Lymphocytes # (A) 1.4 k/uL (1.0-4.8); Lymphocytes % (A) 18 %; MCH 27.9 pg (25.0-35.0); MCHC 32.6 g/dL (31.0-37.0); MCV 85.6 fL (80.0-100.0); Monocytes # (A) 0.5 k/uL (0-1.0); Monocytes % (A) 6 %; Neutrophils # (A) 5.4 k/uL (1.3-7.7); Neutrophils % (A) 69 %; RBC 4.05 m/uL (3.80-5.40); RDW 14.6 % (11.5-15.5); WBC 7.9 k/uL (3.8-10.6)
--- NOTE | 2016-09-04 10:32 | P.PN ---
Subjective Patient presented to the emergency room with lower extremity edema and shortness of breath. Treated for CHF exacerbation. She then had acute kidney injury with creatinine up to 2.13. Patient's neck pain appears is showing improvement. Pain medication is helping. She was hypotensive this morning with a blood pressure of 71/42. Repeat blood pressures 82/50. Blood pressure medications held. Patient reports that she had not urinated at all yesterday or yet this morning. Per I an O's she did have a void in the morning yesterday. Bladder scan completed revealing 280 miles. Swenson catheter will be inserted. Patient denies any chest pain or shortness of breath. Denies a nausea or vomiting. Objective - Vital Signs Vital signs: Vital Signs Temp 97.6 F 09/04/16 07:00 Pulse 83 09/04/16 07:00 Resp 22 09/04/16 07:00 BP 82/50 09/04/16 08:41 Pulse Ox 96 09/04/16 08:26 Intake & Output 09/03/16 09/04/16 09/04/16 18:59 06:59 18:59 Intake Total 150 0 Balance 150 0 Weight 155 kg Intake: Oral 150 0 Other: Voiding Method Bedside Commode Bedside Commode # Voids 0 0 - Exam Head normocephalic Neck supple Lungs clear Heart regular rate and rhythm S1-S2, no rub or gallop Abdomen is soft nontender nondistended positive bowel sounds no hepatosplenomegaly Extremities no edema Neuro alert and orientated to 3 - Labs CBC & Chem 7: 09/04/16 09:44 09/03/16 07:46 Labs: Abnormal Lab Results - Last 24 Hours (Table) 09/04/16 Range/Units 09:44 Hgb 11.3 L (11.4-16.0) gm/dL Assessment and Plan Plan: 1. Shortness of breath or lower extremity edema present on admission possibly secondary to diastolic congestive heart failure exacerbation. 2. Acute diastolic CHF exacerbation secondary to uncontrolled hypertension. Evaluated by cardiology. Cardiology following 3. Morbid obesity 4. Acute kidney injury mostly prerenal secondary to diuretics and hypotension. Nephrology following await their further recommendations. Patient currently has no IV access. Awaiting today's labs 5. UTI patient started on Cipro. Urine culture showing normal skin adria. Continue a short course of 5 days for antibiotics 6. Neck pain with previous MRI of the neck in July after injury. Per patient there is no evidence of any fracture or herniated disks. Evaluated by pain service. Continue with her current treatment. Pain is better controlled 7. Medical debility consult PT 8. Urinary retention: Swenson catheter inserted. 9. Hypotension: Blood pressure meds held this morning. Parameters placed around blood pressure medications. Continue to monitor closely.
[2016-09-04 11:12] LABS: Calcium 9.3 mg/dL (8.4-10.2); Potassium 5.8 mmol/L (3.5-5.1)
[2016-09-04] MEDS ORDERED: SODIUM POLYSTYRENE SULFONATE 15 GM/60 ML BOTTLE PO STA (13:49)
--- NOTE | 2016-09-04 17:10 | P.PN ---
Subjective Principal diagnosis: Acute exacerbation of CHF Patient seen and examined. Patient has multiple complaints including just not feeling good. She is unable to further quantify or qualify what is wrong with her. She states she just doesn't feel good. She is also complaining of pain all over. Feeling like she can't take a deep breath. She states that she has never been diagnosed with obstructive sleep apnea and has never been tested. She states "I know I don't have it." Objective - Vital Signs Vital signs: Vital Signs Temp 98.9 F 09/04/16 14:51 Pulse 87 09/04/16 14:51 Resp 22 09/04/16 14:51 BP 92/50 09/04/16 14:51 Pulse Ox 91 L 09/04/16 14:51 Intake & Output 09/03/16 09/04/16 09/04/16 18:59 06:59 18:59 Intake Total 150 240 Output Total 475 Balance 150 -235 Weight 155 kg Intake: Oral 150 240 Output: Urine 475 Other: Voiding Method Bedside Commode Bedside Commode # Voids 0 0 # Bowel Movements 0 - Exam Gen.: Patient is alert and oriented 3, no acute distress, morbidly obese Cardiovascular: Regular rate and rhythm, S1/S2 Lungs: Diminished breath sounds bilaterally Abdomen: Soft nontender nondistended positive bowel sounds Extremities: Trace edema - Labs CBC & Chem 7: 09/04/16 09:44 09/04/16 09:44 Labs: Abnormal Lab Results - Last 24 Hours (Table) 09/04/16 09/04/16 Range/Units 09:44 09:44 Hgb 11.3 L (11.4-16.0) gm/dL Potassium 5.8 H (3.5-5.1) mmol/L BUN 51 H (7-17) mg/dL Creatinine 3.20 H (0.52-1.04) mg/dL Glucose 113 H (74-99) mg/dL Assessment and Plan Plan: Acute exacerbation of diastolic congestive heart failure Super morbid obesity Urinary tract infection Acute kidney injury Likely underlying obstructive sleep apnea Hypothyroidism History of asthma, unknown type Hypertension Deconditioning O2 to maintain saturation greater than equal to 88% Bronchodilators and Pulmicort Antibiotics: Rocephin Will hold diuretics until evaluated by nephrology GI and DVT prophylaxis Would recommend outpatient PSG and weight loss
[2016-09-04] MEDS: MELATONIN 5 MG TABLET PO SCH (20:19)
[2016-09-04] MEDS: traZODone HCL 50 MG TAB PO SCH (20:19)
[2016-09-05] MEDS: oxyCODONE-APAP 10-325MG 1 EACH TAB PO PRN ×3 (04:32→16:55)
[2016-09-05] MEDS: LEVOTHYROXINE 75 MCG TAB PO SCH (05:42)
[2016-09-05] MEDS: LEVOTHYROXINE 100 MCG TAB PO SCH (05:42)
[2016-09-05] MEDS: ALPRAZolam 0.25 MG TAB PO PRN ×4 (05:45→19:56)
[2016-09-05] MEDS: IPRATROPIUM-ALBUTEROL 3 ML NEB INHALATION SCH ×4 (07:39→19:13)
[2016-09-05] MEDS: BUDESONIDE 0.5 MG/2 ML NEBU INHALATION SCH ×2 (07:39→19:13)
[2016-09-05] MEDS: PANTOPRAZOLE 40 MG TABLET PO SCH ×2 (08:16→16:56)
[2016-09-05] MEDS: CIPROFLOXACIN HCL 250 MG TAB PO SCH ×2 (08:16→20:33)
[2016-09-05] MEDS: SPIRONOLACTONE 25 MG TAB PO SCH (08:16)
[2016-09-05] MEDS: LIDOCAINE 5% PATCH TOPICAL SCH (08:17)
[2016-09-05] MEDS: ENOXAPARIN 30 MG/0.3 ML SYRINGE SQ SCH (08:17)
[2016-09-05 08:21] LABS: Basophils # (A) 0.1 k/uL (0-0.2); Basophils % (A) 1 %; CH 27.4; CHCM 32.1; Eosinophils # (A) 0.3 k/uL (0-0.7); Eosinophils % (A) 5 %; HCT 34.3 % (34.0-46.0); HDW 2.45; Luc # (Auto) 0.24; Luc % (Auto) 4; Lymphocytes # (A) 1.2 k/uL (1.0-4.8); Lymphocytes % (A) 19 %; MCH 27.4 pg (25.0-35.0); MCHC 31.9 g/dL (31.0-37.0); MCV 85.7 fL (80.0-100.0); Mean Platelet Volume 7.8; Monocytes # (A) 0.5 k/uL (0-1.0); Monocytes % (A) 8 %; Neutrophils % (A) 63 %; RDW 14.3 % (11.5-15.5); WBC 6.3 k/uL (3.8-10.6)
[2016-09-05 08:51] LABS: Calcium 8.8 mg/dL (8.4-10.2); Potassium 4.9 mmol/L (3.5-5.1)
[2016-09-05] MEDS ORDERED: diphenhydrAMINE 25 MG CAP PO PRN (12:43)
[2016-09-05] MEDS ORDERED: MINERAL OIL-WHITE PETROLATUM 120 GM JAR TOPICAL PRN (12:43)
--- NOTE | 2016-09-05 12:47 | P.PN ---
Subjective Patient's had a rise in her creatinine yesterday to 3.20 is down to 2.86 today. She did evidence of urinary retention Swenson catheter was inserted yesterday. Patient lying in bed comfortably. Nursing staff is now reporting that she is complaining of flank pain. Kidney ultrasound was ordered per nephrology Objective - Vital Signs Vital signs: Vital Signs Temp 96.1 F L 09/05/16 07:00 Pulse 76 09/05/16 08:00 Resp 20 09/05/16 07:00 BP 100/62 09/05/16 07:00 Pulse Ox 95 09/05/16 07:00 Intake & Output 09/04/16 09/05/16 09/05/16 18:59 06:59 18:59 Intake Total 240 740 Output Total 475 375 Balance -235 365 Weight 155 kg 155 kg Intake: Oral 240 740 Output: Urine 475 375 Other: Voiding Method Indwelling Catheter Indwelling Catheter # Voids 1 # Bowel Movements 0 - Exam Head normocephalic Neck supple Lungs clear Heart regular rate and rhythm S1-S2, no rub or gallop Abdomen is soft nontender nondistended positive bowel sounds no hepatosplenomegaly Extremities no edema Neuro alert and orientated to 3 - Labs CBC & Chem 7: 09/05/16 07:39 09/05/16 07:39 Labs: Abnormal Lab Results - Last 24 Hours (Table) 09/05/16 09/05/16 Range/Units 07:39 07:39 Hgb 11.0 L (11.4-16.0) gm/dL BUN 63 H (7-17) mg/dL Creatinine 2.86 H (0.52-1.04) mg/dL Glucose 118 H (74-99) mg/dL Assessment and Plan Plan: 1. Shortness of breath or lower extremity edema present on admission possibly secondary to diastolic congestive heart failure exacerbation. 2. Acute diastolic CHF exacerbation secondary to uncontrolled hypertension. Evaluated by cardiology. Cardiology following 3. Morbid obesity 4. Acute kidney injury mostly prerenal secondary to diuretics and hypotension. Creatinine 3.20 down to 2.86. Nephrology is following. Nephrology has ordered a kidney ultrasound 5. UTI patient started on Cipro. Urine culture showing normal skin adria. Continue a short course of 5 days for antibiotics 6. Neck pain with previous MRI of the neck in July after injury. Per patient there is no evidence of any fracture or herniated disks. Evaluated by pain service. Continue with her current treatment. Pain is better controlled 7. Medical debility continue physical therapy 8. Urinary retention: Swenson catheter in place 9. Hypotension: Blood pressure meds held this morning. Parameters placed around blood pressure medications. Continue to monitor closely. Blood pressures have shown some improvement. Start blood pressure has been in the low 100s
--- NOTE | 2016-09-05 15:27 | P.PN ---
Subjective Principal diagnosis: AECHF Patient seen and examined. Patient states her breathing is good today. She feels better today than she has in the past few days. She has been afebrile. No other concerns or complaints. Objective - Vital Signs Vital signs: Vital Signs Temp 96.1 F L 09/05/16 07:00 Pulse 76 09/05/16 08:00 Resp 20 09/05/16 07:00 BP 100/62 09/05/16 07:00 Pulse Ox 95 09/05/16 07:00 Intake & Output 09/04/16 09/05/16 09/05/16 18:59 06:59 18:59 Intake Total 240 740 Output Total 475 375 Balance -235 365 Weight 155 kg 155 kg Intake: Oral 240 740 Output: Urine 475 375 Other: Voiding Method Indwelling Catheter Indwelling Catheter # Voids 1 # Bowel Movements 0 - Exam Gen.: Patient is alert and oriented 3, no acute distress, morbidly obese Cardiovascular: Regular rate and rhythm, S1/S2 Lungs: Diminished breath sounds bilaterally Abdomen: Soft nontender nondistended positive bowel sounds Extremities: Trace edema - Labs CBC & Chem 7: 09/05/16 07:39 09/05/16 07:39 Labs: Abnormal Lab Results - Last 24 Hours (Table) 09/05/16 09/05/16 Range/Units 07:39 07:39 Hgb 11.0 L (11.4-16.0) gm/dL BUN 63 H (7-17) mg/dL Creatinine 2.86 H (0.52-1.04) mg/dL Glucose 118 H (74-99) mg/dL Assessment and Plan Plan: Acute exacerbation of diastolic congestive heart failure Super morbid obesity Urinary tract infection Acute kidney injury Likely underlying obstructive sleep apnea Hypothyroidism History of asthma, unknown type Hypertension Deconditioning O2 to maintain saturation greater than equal to 88% Bronchodilators and Pulmicort Antibiotics: Rocephin Will hold diuretics until further evaluated by nephrology GI and DVT prophylaxis Would recommend outpatient PSG and weight loss Respiratory status is stable
[2016-09-05 15:45] VITALS: BMI 62.4
--- NOTE | 2016-09-05 18:57 | PN ---
Patient is seen for follow-up for acute kidney injury. Yesterday, her serum creatinine had increased to 3.2 from 1.57 the day before. The potassium was up at 5.8. Lisinopril was discontinued. Patient was also hypotensive and therefore other medications were also adjusted. This morning patient is comfortable and she states she is having pain on the right side and she insists that it is in the right kidney. The patient denies any urinary symptoms. I had ordered an ultrasound of the kidneys; however, patient did have an ultrasound on the , which showed no significant abnormality in the right kidney.; Therefore, at this time we would hold off any further imaging. Renal function has improved. On examination, blood pressure is 100/62, heart rate 76 per minute. She is afebrile. Examination of the heart S1 and S2. Examination of the lungs: Bilateral breath sounds are heard. No crackles or wheezing is heard. ABDOMEN: Soft, obese, nontender. Examination of lower extremities shows edema 1+ bilaterally. Labs show sodium 140, potassium 4.9, BUN 63, serum creatinine 2.86. Hemoglobin 11.0 g/dL. ASSESSMENT: 1. Acute kidney injury with improvement in renal function and repeated elevation in serum creatinine over the last couple of days which is mainly secondary to hypotension, hypoperfusion. Patient was on RENETTA inhibitors in the setting of hypertension and the Lisinopril was discontinued. Medications have been adjusted. Systolic blood pressure has improved and patient renal function has improved as well. There was suggestion of some urine retention; however, the urine obtained on initial Swenson catheter insertion was less than 300. 2. Hyperkalemia associated with acute kidney injury status post Kayexalate, currently improved. Continue to maintain patient off of RENETTA inhibitors. 3. Mild volume overload. Patient was on Lasix which was held yesterday. We will continue to maintain her off of any IV fluids as oral intake is encouraged. 4. Pain in the right flank area. Patient has been reassured that ultrasound did not show any evidence of stones or cyst on the right kidney. The patient believes that she had a cyst on the right side. We will hold off on repeat ultrasound for now. PLAN: The repeat labs in the a.m. Continue to avoid any further nephrotoxic agents. Continue to hold off on RENETTA inhibitors and we may be able to start oral diuretics tomorrow.
[2016-09-05] MEDS: MELATONIN 5 MG TABLET PO SCH (20:33)
[2016-09-05] MEDS: traZODone HCL 50 MG TAB PO SCH (20:34)
[2016-09-06] MEDS: ALPRAZolam 0.25 MG TAB PO PRN ×5 (00:11→21:28)
[2016-09-06] MEDS: oxyCODONE-APAP 10-325MG 1 EACH TAB PO PRN ×4 (00:11→20:26)
[2016-09-06] MEDS: LEVOTHYROXINE 100 MCG TAB PO SCH (05:32)
[2016-09-06] MEDS: LEVOTHYROXINE 75 MCG TAB PO SCH (05:32)
[2016-09-06] MEDS: PANTOPRAZOLE 40 MG TABLET PO SCH ×2 (08:52→16:52)
[2016-09-06] MEDS: ENOXAPARIN 30 MG/0.3 ML SYRINGE SQ SCH (08:52)
[2016-09-06] MEDS: CIPROFLOXACIN HCL 250 MG TAB PO SCH ×2 (08:52→20:26)
[2016-09-06] MEDS: LIDOCAINE 5% PATCH TOPICAL SCH (08:53)
[2016-09-06 10:35] LABS: Calcium 9.6 mg/dL (8.4-10.2); Potassium 4.9 mmol/L (3.5-5.1)
[2016-09-06] MEDS: IPRATROPIUM-ALBUTEROL 3 ML NEB INHALATION SCH ×2 (12:44→19:24)
[2016-09-06] MEDS: BUDESONIDE 0.5 MG/2 ML NEBU INHALATION SCH ×2 (12:44→19:24)
--- NOTE | 2016-09-06 13:33 | P.PN ---
Subjective No events overnight. Patient is feeling depressed today as it's the Memorial of her sister. Objective - Vital Signs Vital signs: Vital Signs Temp 97.1 F L 09/06/16 07:00 Pulse 75 09/06/16 07:00 Resp 14 09/06/16 07:00 BP 108/56 09/06/16 07:00 Pulse Ox 90 L 09/06/16 07:00 Intake & Output 09/05/16 09/06/16 09/06/16 18:59 06:59 18:59 Output Total 700 900 Balance -700 -900 Weight 155 kg 159 kg Output: Urine 700 900 Other: Voiding Method Indwelling Catheter Indwelling Catheter Indwelling Catheter - Exam General: The patient is awake and alert, in no distress Eye: there is normal conjunctiva bilaterally. Neck: The neck is supple, there is no JVD. Cardiovascular: Normal S1-S2, no S3-S4, no murmurs. Respiratory: Lungs clear to auscultation bilaterally Gastrointestinal: Abdomen is soft, nontender Musculoskeletal: There is no pedal edema. Neurological:. Speech is normal. Skin: Skin is warm and dry - Labs CBC & Chem 7: 09/05/16 07:39 09/06/16 08:32 Labs: Abnormal Lab Results - Last 24 Hours (Table) 09/06/16 Range/Units 08:32 BUN 52 H (7-17) mg/dL Creatinine 1.28 H (0.52-1.04) mg/dL Glucose 150 H (74-99) mg/dL Assessment and Plan Plan: 1. Shortness of breath or lower extremity edema present on admission possibly secondary to diastolic congestive heart failure exacerbation. 2. Acute diastolic CHF exacerbation secondary to uncontrolled hypertension. Evaluated by cardiology. Cardiology following 3. Morbid obesity 4. Acute kidney injury mostly prerenal secondary to diuretics and hypotension. Creatinine 3.20 down to 2.86. Nephrology is following. Nephrology has ordered a kidney ultrasound 5. UTI patient started on Cipro. Urine culture showing normal skin adria. Continue a short course of 5 days for antibiotics 6. Neck pain with previous MRI of the neck in July after injury. Per patient there is no evidence of any fracture or herniated disks. Evaluated by pain service. Continue with her current treatment. Pain is better controlled 7. Medical debility continue physical therapy 8. Urinary retention: Swenson catheter in place. Plan to discontinue catheter today and voiding trial. Encouraged ambulation. Discontinue antibiotics tomorrow.
--- NOTE | 2016-09-06 14:38 | PN ---
Patient is seen for followup for acute kidney injury which was recently mostly due to hypotension and hypoperfusion. Patient's RENETTA inhibitors were held and her blood pressure medications were decreased. Renal function has improved significantly with creatinine down to 1.28 from 3.2 mg/dL on 09/04/2016. On examination today, blood pressure is 108/56, heart rate 75 per minute. She is afebrile. EXAMINATION OF THE HEART: S1 and S2. EXAMINATION OF THE LUNGS: Bilateral breath sounds are heard. ABDOMEN: Soft, morbidly obese. Examination of lower extremities shows edema 1+ bilaterally. Labs show serum creatinine 1.28, sodium 140, potassium 4.9. Hemoglobin 11.0 g/dL. ASSESSMENT: 1. Acute kidney injury secondary to hypotension, hypoperfusion, currently significantly improved. 2. Hyperkalemia associated with acute kidney injury and use of RENETTA inhibitors, currently resolved. 3. Morbid obesity. 4. Mild volume overload. 5. Urine retention with Swenson catheter in place. PLAN: Can resume oral Lasix and to repeat labs in a.m.
--- NOTE | 2016-09-06 15:29 | PN ---
DATE OF SERVICE: 09/06/2016. The patient remains hemodynamically stable. She complains of back pain. She is at her baseline as far as shortness of breath goes. Her blood pressure is 108/56, respiratory rate 14, pulse rate is 75, temperature 97.1, O2 sat on room air is 98%. HEENT reveals pupils are equal. Chest reveals decreased breath sounds. No wheeze. Cardiovascular system reveals an S1 and S2. ABDOMEN: Soft. There is no pedal edema. IMPRESSION: 1. Congestive heart failure. 2. Morbid obesity. 3. Obstructive sleep apnea is likely, but the patient declines further work-up. 4. Urinary tract infection. 5. Acute kidney injury. Optimize fluid status. Increase her activity level. Continue her on her current medications, which were reviewed. She was counseled regarding her condition.
[2016-09-06] MEDS: FUROSEMIDE 40 MG TAB PO SCH (16:52)
[2016-09-06] MEDS: traZODone HCL 50 MG TAB PO SCH (20:25)
[2016-09-06] MEDS: MELATONIN 5 MG TABLET PO SCH (20:25)
[2016-09-07] MEDS: oxyCODONE-APAP 10-325MG 1 EACH TAB PO PRN ×3 (05:04→18:43)
[2016-09-07] MEDS: LEVOTHYROXINE 100 MCG TAB PO SCH (05:26)
[2016-09-07] MEDS: LEVOTHYROXINE 75 MCG TAB PO SCH (05:26)
[2016-09-07] MEDS: ALPRAZolam 0.25 MG TAB PO PRN ×5 (05:26→23:58)
[2016-09-07] MEDS: IPRATROPIUM-ALBUTEROL 3 ML NEB INHALATION SCH ×4 (08:02→20:12)
[2016-09-07] MEDS: BUDESONIDE 0.5 MG/2 ML NEBU INHALATION SCH ×2 (08:02→20:12)
[2016-09-07 08:48] LABS: Anion Gap 10 mmol/L; Blood Urea Nitrogen 41 mg/dL (7-17); Calcium 9.6 mg/dL (8.4-10.2); Carbon Dioxide 31 mmol/L (22-30); Chloride 101 mmol/L (98-107); Glucose 127 mg/dL (74-99); Non-African American GFR(MDRD) 52 (>60 ml/min/1.73 sqM); Potassium 4.4 mmol/L (3.5-5.1); Sodium 142 mmol/L (137-145)
[2016-09-07] MEDS: ENOXAPARIN 30 MG/0.3 ML SYRINGE SQ SCH (09:38)
[2016-09-07] MEDS: CIPROFLOXACIN HCL 250 MG TAB PO SCH (09:38)
[2016-09-07] MEDS: PANTOPRAZOLE 40 MG TABLET PO SCH ×2 (09:38→17:16)
[2016-09-07] MEDS: LIDOCAINE 5% PATCH TOPICAL SCH (09:38)
[2016-09-07] MEDS: FUROSEMIDE 40 MG TAB PO SCH (09:38)
--- NOTE | 2016-09-07 13:57 | P.PN ---
Subjective No events overnight. Patient refused to have her Swenson catheter removed yesterday as planned for voiding trial. She is agreeable today. Objective - Vital Signs Vital signs: Vital Signs Temp 96.8 F L 09/07/16 07:00 Pulse 74 09/07/16 07:00 Resp 16 09/07/16 07:00 BP 117/67 09/07/16 07:00 Pulse Ox 97 09/07/16 07:00 Intake & Output 09/06/16 09/07/16 09/07/16 18:59 06:59 18:59 Intake Total 400 Output Total 700 400 Balance -700 0 Weight 155.5 kg Intake: Oral 400 Output: Urine 700 400 Other: Voiding Method Indwelling Catheter Indwelling Catheter Indwelling Catheter # Bowel Movements 0 - Exam General: The patient is awake and alert, in no distress Eye: there is normal conjunctiva bilaterally. Neck: The neck is supple, there is no JVD. Cardiovascular: Normal S1-S2, no S3-S4, no murmurs. Respiratory: Lungs clear to auscultation bilaterally Gastrointestinal: Abdomen is soft, nontender Musculoskeletal: There is no pedal edema. Neurological:. Speech is normal. Skin: Skin is warm and dry - Labs CBC & Chem 7: 09/05/16 07:39 09/07/16 08:19 Labs: Abnormal Lab Results - Last 24 Hours (Table) 09/07/16 Range/Units 08:19 Carbon Dioxide 31 H (22-30) mmol/L BUN 41 H (7-17) mg/dL Creatinine 1.06 H (0.52-1.04) mg/dL Glucose 127 H (74-99) mg/dL Assessment and Plan Plan: 1. Shortness of breath or lower extremity edema present on admission possibly secondary to diastolic congestive heart failure exacerbation. 2. Acute diastolic CHF exacerbation secondary to uncontrolled hypertension. Evaluated by cardiology. Cardiology following 3. Morbid obesity 4. Acute kidney injury mostly prerenal secondary to diuretics and hypotension. Creatinine 3.20 down to 2.86. Nephrology is following. Nephrology has ordered a kidney ultrasound 5. UTI: Urine culture showing normal skin adria. Finished 5 days course of Cipro 6. Neck pain with previous MRI of the neck in July after injury. Per patient there is no evidence of any fracture or herniated disks. Evaluated by pain service. Continue with her current treatment. Pain is better controlled 7. Medical debility continue physical therapy 8. Urinary retention: Swenson catheter in place. Plan to discontinue catheter today and voiding trial. Encouraged ambulation. Discharge home tomorrow. Patient was offered PT/OT evaluation and possible placement at [facility] that she completely refused. May set up home care and home PT tomorrow. Discharge home tomorrow if passed voiding trial. If not 40 catheter should be reinserted and patient will be discharged home with the Swenson and follow-up with urology as an outpatient.
[2016-09-07] MEDS: OLANZapine 2.5 MG TAB PO SCH ×2 (17:16→20:23)
[2016-09-07] MEDS: MELATONIN 5 MG TABLET PO SCH (20:23)
[2016-09-07] MEDS: traZODone HCL 50 MG TAB PO SCH (20:23)
--- NOTE | 2016-09-07 21:54 | CONS ---
DATE OF CONSULTATION: 09/06/2016 Purpose for consultation: Evaluate for depression. HISTORY OF PRESENTING ILLNESS: The patient was admitted to the medical floor through the emergency room due to issues with chest pain, shortness of breath and a history of CHF, and other medical complications. She apparently has had increasing debility and worsening of shortness of breath for some time. She also has chronic back pain. She was having difficulty sleeping. She was waking with shortness of breath. She has morbid obesity. Medical records do notate a history of anxiety and depression. Currently, the patient is on trazodone 150 mg at bedtime. In addition, she is on melatonin, which she has been taking nightly. She is prescribed Xanax 0.25 mg p.r.n., which she has not been using. Staff have noted since her hospitalization that she seems to have a fair amount of distress. She has had some recent losses and apparently has been struggling with grief. She had a brother, who this last November and then she had a son who one year ago apparently due to substance abuse issues. She has had other losses in the family. Her sister just and that seems to have raised a lot of grief issues as well as grief relating to the loss of others. The patient acknowledges that she has had depression for a long time. It seems to come and go. She seemed to suggest that she took Zoloft at one time though would not consider taking Zoloft again. She was not clear as to why. She acknowledges that she has been sleeping poorly. She wakes quite a bit through the night. She can have an irritable and negative outlook. Staff who work with her have noted that she seems to be fairly persistently down in her mood. Patient does not provide much information in regards to factors relating to her depression. When I talked to her about stress she may be experiencing, she acknowledged stress that she is having currently. She acknowledges that it is affecting how she is functioning, though on the other hand, she was very resistant to the idea of taking any medications. She was adamantly opposed to an antidepressant and in particular, named Zoloft and Prozac as ones that she would not take. I discussed other options and for the most part she was quite resistant to the idea of taking any medications at all, in spite of the fact that she could also acknowledged that she is struggling with serious grief and depression. The most immediate issue that I could discern was that today is the memorial for her sister who has just . MENTAL STATUS: Patient was in her bed to with her had half raised. She gave fairly good eye contact. Psychomotor activity was a little slowed. She answered questions with brief responses. She did not say a lot. She was not too spontaneous or interactive. Her affect was flat. Her mood seem depressed. She was moderately distressed. On cognition she was clear. ASSESSMENT: This 66-year-old female has likely diagnosis of major depression, chronic. She has ongoing significant grief issues. I talked at length about medication options. The patient was very adamant about the idea of not wanting to take antidepressants. She was not very clear about the reason though when we talked about antidepressants, she almost seemed angry about the idea of being on an antidepressant medication. I did suggest using a low dose of Zyprexa. I reviewed the indications for Zyprexa. I reviewed side effects and potential benefits. Patient again declined considering that though she did say that she would think about it and would have her son review the medication as well. I discussed that Zyprexa in low dose may be effective at helping clear her thoughts giving her some improvement in her mood and lessening anxiety and reducing some severe grief reaction is that she may be experiencing. I discussed with her that in addition to the ( ) benefits, the range of side effects are relatively low. I reviewed briefly weight related issues in regards to Zyprexa. I also suggested a range of other medications that could possibly be of benefit as well. At this point, the patient declines any psychotropic medications. He did express some concern relating to the use of medications such as benzodiazepines due to issues of not only respiratory depression, but also cognitive clouding. I will see patient again that tomorrow and see if she wishes to consider the alternative medication options. SAL
--- NOTE | 2016-09-07 23:22 | PN ---
DATE OF SERVICE: 09/07/2016. She has been hemodynamically stable and is not complaining of shortness of breath. She is complaining of pain in her entire body. On physical examination, her blood pressure 131/75, respiratory rate 18, pulse 84, temperature 97 degrees Fahrenheit. O2 sat on room air is 92%. HEENT is unremarkable. Chest is clear. Cardiovascular system reveals an S1 and S2. ABDOMEN: Soft. There is 1+ pedal edema. IMPRESSION: 1. Chronic pain. 2. Super morbid obesity with obstructive sleep apnea and obesity hypoventilation syndrome is likely. 3. Urinary tract infection. 4. Congestive heart failure. Her meds were reviewed. Continue her on the same. Increase her activity level. Her prognosis at this time is guarded.
[2016-09-08] MEDS: oxyCODONE-APAP 10-325MG 1 EACH TAB PO PRN ×3 (01:53→14:25)
[2016-09-08] MEDS: LEVOTHYROXINE 100 MCG TAB PO SCH (05:53)
[2016-09-08] MEDS: LEVOTHYROXINE 75 MCG TAB PO SCH (05:53)
[2016-09-08 07:55] VITALS: TEMP 96.2
[2016-09-08] MEDS: ALPRAZolam 0.25 MG TAB PO PRN ×2 (08:06→14:27)
[2016-09-08] MEDS: PANTOPRAZOLE 40 MG TABLET PO SCH (08:06)
[2016-09-08] MEDS: FUROSEMIDE 40 MG TAB PO SCH (08:06)
[2016-09-08] MEDS: OLANZapine 2.5 MG TAB PO SCH (08:06)
[2016-09-08] MEDS: ENOXAPARIN 30 MG/0.3 ML SYRINGE SQ SCH (08:06)
--- NOTE | 2016-09-08 08:06 | CONS ---
DATE OF CONSULTATION: 09/07/2016 PURPOSE FOR CONSULTATION: Evaluate for depression. INTERVAL HISTORY: Patient has been doing fair. From the standpoint of her renal and respiratory functions things have been improving. My understanding is from the patient, she will be going home tomorrow. Her creatinine has been normalizing. Her respiratory status has stabilized. The patient will be returning to home. She lives with her son. It is noteworthy that today she had talked about a number of stress issues. One is that her sister has recently , which has been very difficult for her and has brought up other grief issues. Another thing she is struggling with is being home and not having a productive activities. She feels that she worked for so many years in her life and now she does not have work situation that gives her a sense of purpose. There have been some volunteer social activities that has been offered to her by friends, though she tends to turn those down, feeling that she really needs some kind of basic work situation to feel productive and to meet some of the needs she has. She acknowledges that she pretty much blocks herself away in her room at her son's house and barely does anything at all. She does except that is not a good situation for her at all. She continues to report poor sleep. She says that she has a lot of anxiety as she is riddled with various thoughts of some grief issues, some typical life issues. Says she worries about both her sons and health issues. She acknowledges that she has trouble quieting her thoughts down and calming her mood. She acknowledges that depression has been something that has been there for her for some period of time. I had a telephone contact with the patient's son with whom she lives. I reviewed medications with the son and he stated a clear indication that he thought he would probably be helpful for her. The son talked with the patient this afternoon before I saw her and she was in agreement with taking the medication. One issue she is concerned about his that she has been on [place]. She says she has been on higher doses in the past. She has tried to go off and has had significant withdrawal issues particularly a lot of restlessness, and shaking in her legs as well as other symptoms. She has been working to slowly cut herself down on the medicine and feels that she has been successful at that though she does have the desire to go off of [place] altogether. She continues with some back pain complaints. When I reviewed issues relating to starting Zyprexa, she felt that it was reasonable consideration for her. When I saw the patient, she was lying down. She gave me good eye contact. She actually was quite spontaneous and interactive. She talked a lot about a number of different issues she has had. She shared concerns about negative experiences she has had getting medical help and has felt that at times that she has not had the best experience with some of her physicians and other medical staff. Her thoughts were clear and coherent. Her affect was anxious. She had a distressed manner. Her mood was dysphoric. She seemed somewhat distressed. ASSESSMENT: I would diagnose the patient with major depression and acute grief. She has significant stress issues. I have recommended to the patient that we start Zyprexa 2.5 mg twice a day. I clarified with the patient that while the primary indications for the medications include psychosis and bipolar disorder that in her case those are not the factors that we are using the medication for. I discussed with the patient that Zyprexa is commonly used as a medication to help in depression, that medication that can help reduce acute stress issues in situations such as grief or people suffering from significant emotional trauma. Patient may actually fit into that category. I will start the patient on 2.5 mg twice a day. I discussed with the patient that if she does not see improvement over 4 or 5 days to a week, her primary doctor could consider going up to possibly 2.5 mg 3 times a day or 5 mg twice a day. I discussed that she may some early response and if she tolerates the medicine though has not seen an early response with some calming and improvement in her overall level of function that titrating up on the medicine would be appropriate. I also discussed issues with withdrawal from things like opioids. I discussed that Zyprexa is a medicine I commonly use to help with early withdrawal. I indicated to the patient that if she was on a low to moderate dose of Zyprexa and felt it was helping her, she might also find that she could cut back on [place] with less in terms of withdrawal symptoms. I encouraged her to work with her doctor to look at cutting back or possibly going off of [place] altogether. If she were to go off [place], I noted that her physician may want to titrate up on the Zyprexa. I have commonly used doses in the range of 5 mg 3 times a day and occasionally higher for early withdrawal symptoms and discussed that if she can maintain herself off of opioid pain medications for about one month, many studies have shown that beyond that point in time, pain is significantly reduced and better managed off opioids then on. I noted that augmentation medications such as Neurontin sometimes can be helpful and generally not a problem. I did suggest that medicines such as Xanax are potentially problematic. I noted that any benzodiazepines such as Xanax, Valium or Ativan does have a side effect of interfering with cognitive function, which is not helpful in regards to resolving issues of grief and managing mood and anxiety issues over an extended period of time. The patient is on trazodone 150 mg at bedtime. With the addition of Xanax she may actually start sleeping and better. I would aim for 5 or 6 hours of solid sleep. Once she is on Zyprexa for a week or more her physician could look to just gets all her Zyprexa at bedtime. She may get some better sleep benefits from that. Though the issues of reducing anxiety and stress issues generally respond well even to once a day dosing. Over the next few weeks there might be consideration for adding an antidepressant into the picture, though that would take some additional education to the patient to understand the role of antidepressants. I note that when I had brought up the issue of antidepressants, she was reluctant to consider either Zoloft or Prozac. I did make mentioned to her that Prozac is a very effective antidepressant with limited side effects and that in fact of a combination of Zyprexa and Prozac have been studied in more severe depression and do have an FDA approved for more severe depression so that is at least one option to consider. I will continue to follow the patient while she is in the hospital. Her physician should feel free to call me at any point for further discussion about her mental health issues and medications.
[2016-09-08] MEDS: LIDOCAINE 5% PATCH TOPICAL SCH (08:07)
[2016-09-08] MEDS: BUDESONIDE 0.5 MG/2 ML NEBU INHALATION SCH (08:18)
[2016-09-08] MEDS: IPRATROPIUM-ALBUTEROL 3 ML NEB INHALATION SCH ×3 (08:18→15:54)
[2016-09-08 08:56] LABS: Anion Gap 11 mmol/L; Blood Urea Nitrogen 39 mg/dL (7-17); Calcium 9.4 mg/dL (8.4-10.2); Carbon Dioxide 30 mmol/L (22-30); Chloride 101 mmol/L (98-107); Glucose 102 mg/dL (74-99); Non-African American GFR(MDRD) >60 (>60 ml/min/1.73 sqM); Potassium 4.6 mmol/L (3.5-5.1); Sodium 142 mmol/L (137-145)
--- NOTE | 2016-09-08 10:45 | P.PN ---
Progress Note - Text SUBJECTIVE: Patient was seen for psychiatric follow-up ,patient was started on Zyprexa 2.5 mg BID on 09/[address] Servin ,patient denies any AM sedation ,still endorsing poor sleep despite being on Melatonin ,Trazodone and Zyprexa ,patient rates her anxiety 10 ,depression / ,10 being the worse ,denies any hopeless feeling , when I told her about SSRI or Remeron for anxiety and sleep ,she replied in angry voice:"I just started this new medication ,I do not want to change it ,I have my Xanax and it is helping me".she offered psych0-education regarding addiction potential of Xanax but patient was resistant to try any other medication MENTAL STATUS EXAM: Morbid obese female ,angry demeanor ,avoiding eyes contact ,superficially cooperative ,denies any psychotic features ,denies any suicidal or homicidal ideation ,no evidence for juanis or hypomania PLAN:Patient is not imminent for self harm , SW to give patient referral to outpatient counseling , patient can be discharged home when medically cleared
--- NOTE | 2016-09-08 12:22 | P.PN ---
Subjective Principal diagnosis: Acute exacerbation of CHF Patient seen and examined. Patient states her breathing is fine today. She states she is planning to go home today. She is adamant she will not go to an ECF or group home for rehab. She gets very angry when this is discussed with her. Objective - Vital Signs Vital signs: Vital Signs Temp 96.2 F L 09/08/16 07:00 Pulse 79 09/08/16 07:00 Resp 19 09/08/16 07:00 BP 120/72 09/08/16 07:00 Pulse Ox 99 09/08/16 07:00 Intake & Output 09/07/16 09/08/16 09/08/16 18:59 06:59 18:59 Intake Total 350 Output Total 1999 Balance -1999 350 Weight 150 kg Intake: Oral 350 Output: Urine/Stool Mix 1999 Other: Voiding Method Self-Catheterization Bedside Commode Bedside Commode # Voids 1 1 # Bowel Movements 1 - Exam Gen.: Patient is alert and oriented 3, no acute distress, morbidly obese Cardiovascular: Regular rate and rhythm, S1/S2 Lungs: Diminished breath sounds bilaterally Abdomen: Soft nontender nondistended positive bowel sounds Extremities: Trace edema - Labs CBC & Chem 7: 09/05/16 07:39 09/08/16 07:11 Labs: Abnormal Lab Results - Last 24 Hours (Table) 09/08/16 Range/Units 07:11 BUN 39 H (7-17) mg/dL Glucose 102 H (74-99) mg/dL Assessment and Plan Plan: Acute exacerbation of diastolic congestive heart failure Super morbid obesity Urinary tract infection Acute kidney injury Likely underlying obstructive sleep apnea Hypothyroidism History of asthma, unknown type Hypertension Deconditioning O2 to maintain saturation greater than equal to 88% Bronchodilators and Pulmicort Antibiotics: Rocephin Will hold diuretics until further evaluated by nephrology GI and DVT prophylaxis Would recommend outpatient PSG and weight loss Respiratory status is stable. Okay to DC from pulmonary standpoint
[2016-09-08 15:21] VITALS: BP 116/66; PULSE 87; RESP 17
--- NOTE | 2016-09-08 16:06 | P.DS ---
Providers Date of admission: 08/31/16 10:44 Expected date of discharge: 09/08/16 Attending physician: Amanda Garcia Consults: 09/01/16 13:28 Consult Physician Routine Consulting Provider: Pedrito Ballard Consult Reason/Comments: pain management Do you want consulting provider notified?: Yes 09/05/16 15:30 Consult Physician Routine Consulting Provider: Jillian Cedeno Consult Reason/Comments: depression Do you want consulting provider notified?: Already Contacted Cardiology Dr. ROBIN Nguyễn Primary care physician: [facility] Course: Discharge diagnosis 1. Shortness of breath or lower extremity edema present on admission possibly secondary to diastolic congestive heart failure exacerbation. 2. Acute diastolic CHF exacerbation secondary to uncontrolled hypertension. Evaluated by cardiology. Cardiology following 3. Morbid obesity 4. Acute kidney injury mostly prerenal secondary to diuretics and hypotension. Kidney function has shown improvement creatinine is at 1.06 5. UTI: Urine culture showing normal skin adria. Finished 5 days course of Cipro 6. Neck pain with previous MRI of the neck in July after injury. Per patient there is no evidence of any fracture or herniated disks. Evaluated by pain service. Continue with her current treatment. Pain is better controlled 7. Medical debility continue physical therapy 8. Urinary retention: Resolved. Hospital course This is a 66-year-old female initially presented with worsening shortness of breath and lower extremity edema and was treated for an acute CHF exacerbation.. She was given IV Lasix and then developed acute kidney injury. It is felt that her acute kidney injury was related to the diuretics as well as hypotension. RENETTA inhibitor, spironolactone, and metoprolol were discontinued. Lasix was held for a few days. Dose adjusted to 40 mg by mouth daily. Patient was evaluated by cardiology, pulmonary service and nephrology. Patient had kidney ultrasound completed showing right kidney is small without evidence of mass or obstruction. Nephrology eventually restarted Lasix. Again patient is tolerating the Lasix 40 mg daily and will continue that at home. Patient had a urinary tract infection during this admission and completed a five-day course of treatment. She was complaining of neck pain that's chronic she was seen evaluated by pain service. Patient was placed on Percocets. She is requesting to be placed back on her [place] as at home. Patient had urinary retention again this resolved after having a few days with a Swenson catheter and decompressing the bladder. I she is urinating well no evidence of urinary retention. Patient 's symptoms have improved. She was evaluated by physical therapy and encouraged to go to rehab. Patient is refusing rehab and will have home care set up. Patient is medically stable for discharge. Please refer to chart for any further details. Patient Condition at Discharge: Stable Plan - Discharge Summary New Discharge Prescriptions: Furosemide [Lasix] 40 mg PO DAILY #30 tab OLANZapine [ZyPREXA] 2.5 mg PO BID #60 tab Discharge Medication List Levothyroxine Sodium [Synthroid] 150 mcg PO DAILY 01/25/15 [History] Metoprolol Succinate [Toprol XL] 25 mg PO DAILY 01/25/15 [History] HYDROcodone/APAP 7.5-325MG [[place] 7.5-325] 1 tab PO QID PRN 10/24/15 [History] Melatonin 5 mg PO HS 10/24/15 [History] Omeprazole 20 mg PO BID 10/24/15 [History] traZODone HCL 150 mg PO HS 11/23/15 [History] Cholestyramine (with Sugar) [Cholestyramine Powder] 1 packet PO TID PRN [History] Furosemide [Lasix] 40 mg PO DAILY #30 tab 09/08/16 [Rx] OLANZapine [ZyPREXA] 2.5 mg PO BID #60 tab 09/08/16 [Rx] Follow up Appointment(s)/Referral(s): Rosa Lloyd MD [Primary Care Provider] - 1 Week Andrew Blas MD [STAFF PHYSICIAN] - 1 Week Patient Instructions/Handouts: Heart Failure (DC) Activity/Diet/Wound Care/Special Instructions: Diet: cardiac Activity as tolerated Discharge Disposition: HOME WITH HOME HEALTH SERVICES
--- NOTE | 2016-09-08 20:58 | CONS ---
DATE OF CONSULTATION: 09/08/2016 PURPOSE FOR CONSULTATION: Evaluate for depression. INTERVAL HISTORY: Patient has been doing fair. She slept fair last night. She said she woke some on and off. She had some restlessness yesterday and again this morning, particularly where she shakes her legs. She calls it the "heebgurpreet jeebselvin." She says that is a reaction she gets when she has tried stopping her opioid pain medications. It is noted that she has not been receiving opioid pain medications until today this afternoon. I saw her before she got a 2:30 dose of Percocet. The patient was started on a low dose of Zyprexa yesterday and continued on the medication today. She has not had any complaints related to her medications. She notes that going home is the best option for her, even though she recognizes that she needs some rehabilitation for gaining strength for the strength she has lost during her hospitalization. She believes that she can manage to make an effort at home. It is difficult to say if she has had any change in her mood, though she does seem to be a little more aware of her situation and able to think through appropriate issues for discharge. When I saw the patient earlier in the morning, she was quite sleepy. I saw her around noontime and she was more interactive. She had a calm, quiet manner. Her thoughts were clear. She did not appear to be distressed. ASSESSMENT: I will continue the current diagnosis. The patient has significant grief issues, particularly relating to the loss of her sister and a recent memorial for the sister. She has had long-term issues with depression. 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 We discussed at length issues relating to opioid withdrawal. Her aim is to be off opioid pain medications. I recommend continuing Zyprexa 2.5 mg twice a day. In my previous note, I outlined longer term use of Zyprexa and potential use of Zyprexa in opioid withdrawal issues. Though she does have some leg shaking, it is not clear that she is having EPS from Zyprexa. Zyprexa has a very low incidence of EPS. Patient herself seems to relate it to being off opioid pain medications. She was given progress notes where I detailed information about diagnosis and treatment plan. I encouraged her to do review these at length with her physician as appropriate.
--- NOTE | 2016-09-08 22:14 | PN ---
Patient is seen for followup for acute kidney injury. Her renal function has improved significantly. Patient has been restarted on oral Lasix. She will likely be discharged today. On examination, blood pressure is 116/66, heart rate of 87 per minute. Patient is afebrile. EXAMINATION OF THE HEART: S1 and S2. EXAMINATION OF THE LUNGS: Bilateral breath sounds are heard. ABDOMEN: Soft, morbidly obese. Examination of lower extremities shows edema 1+ bilaterally. Labs show sodium 142, potassium 4.6, serum creatinine down to 0.9. Hemoglobin 11.0 g/dL. ASSESSMENT: 1. Acute kidney injury associated with hypoperfusion and RENETTA inhibitors on board, currently significantly improved. Continue off of IV fluids. May continue with the Lasix as well. 2. Morbid obesity. 3. Hyperkalemia associated with acute kidney injury and use of RENETTA inhibitors, currently resolved. 4. Urine retention with removal of Swenson catheter. PLAN: Patient is stable for discharge. Continue off of RENETTA inhibitors for now.
[2016-09-09] MEDS ORDERED: ENOXAPARIN 40 MG/0.4 ML SYRINGE SQ SCH (09:00)
== END 2016-09-08 16:37 | disposition home or self-care (01) | DRG 292 ==
LOC: EC 19:37 → 3OBS 22:41 → OBSVTOIN 08-31 10:44 → 4MS4W 09-02 13:53
PROVIDERS: ADMIT Internal Medicine; ATTEND Internal Medicine
PROC: 0T9B70Z Drainage of Bladder with Drainage Device, Via Natural or Artificial Opening (ICD-10-PCS; principal; 2016-09-04)
DX: I11.0 Hypertensive heart disease with heart failure (principal); N17.9 Acute kidney failure, unspecified; I95.9 Hypotension, unspecified; E86.1 Hypovolemia; F11.20 Opioid dependence, uncomplicated; E66.2 Morbid (severe) obesity with alveolar hypoventilation; J45.901 Unspecified asthma with (acute) exacerbation; E87.5 Hyperkalemia; Z68.43 Body mass index [BMI] 50.0-59.9, adult; N39.0 Urinary tract infection, site not specified; G89.29 Other chronic pain; I50.33 Acute on chronic diastolic (congestive) heart failure; M51.24 Other intervertebral disc displacement, thoracic region; T50.2X5A Adverse effect of carbonic-anhydrase inhibitors, benzothiadiazides and other diuretics, initial encounter; R33.9 Retention of urine, unspecified; M51.36 Other intervertebral disc degeneration, lumbar region; M79.1 Myalgia; T50.1X6A Underdosing of loop [high-ceiling] diuretics, initial encounter; F43.20 Adjustment disorder, unspecified; M51.27 Other intervertebral disc displacement, lumbosacral region; M47.816 Spondylosis without myelopathy or radiculopathy, lumbar region; F41.9 Anxiety disorder, unspecified; I25.2 Old myocardial infarction; K29.70 Gastritis, unspecified, without bleeding; E03.9 Hypothyroidism, unspecified; R53.1 Weakness; K58.9 Irritable bowel syndrome, unspecified; F32.9 Major depressive disorder, single episode, unspecified; R32 Unspecified urinary incontinence; M54.2 Cervicalgia; L30.9 Dermatitis, unspecified; G47.9 Sleep disorder, unspecified; M13.0 Polyarthritis, unspecified; Z90.49 Acquired absence of other specified parts of digestive tract; Z87.442 Personal history of urinary calculi; Z80.1 Family history of malignant neoplasm of trachea, bronchus and lung; Z87.11 Personal history of peptic ulcer disease; Z82.3 Family history of stroke; Z82.49 Family history of ischemic heart disease and other diseases of the circulatory system; Z85.42 Personal history of malignant neoplasm of other parts of uterus; Z96.651 Presence of right artificial knee joint; Z96.642 Presence of left artificial hip joint; Z88.6 Allergy status to analgesic agent; Z79.899 Other long term (current) drug therapy; Z87.19 Personal history of other diseases of the digestive system; Z88.5 Allergy status to narcotic agent; Z88.8 Allergy status to other drugs, medicaments and biological substances; Z87.440 Personal history of urinary (tract) infections; Z87.448 Personal history of other diseases of urinary system; Z87.01 Personal history of pneumonia (recurrent); Z87.828 Personal history of other (healed) physical injury and trauma; Z87.81 Personal history of (healed) traumatic fracture; Z86.19 Personal history of other infectious and parasitic diseases; Z91.81 History of falling; Z91.19 Patient's noncompliance with other medical treatment and regimen; Z91.128 Patient's intentional underdosing of medication regimen for other reason; Z83.3 Family history of diabetes mellitus; Z81.4 Family history of other substance abuse and dependence; Z84.1 Family history of disorders of kidney and ureter; Z90.710 Acquired absence of both cervix and uterus; Z80.52 Family history of malignant neoplasm of bladder
CPT/HCPCS: 36415; 71010; 71020; 76770; 80048; 80053; 81001; 82550; 82553; 83690; 83735; 83880; 84439; 84443; 84484; 85025; 85610; 85730; 87086; 93005; 93306; 94640; 94760; 96361; 96372; 96374; 96375; 99285

== ENCOUNTER 2016-09-15 16:59 | Inpatient (IN) | payer MEDICARE, OTHER ==
[2016-09-15] MEDS ORDERED: HYDROmorphone 1 MG/ML 1 ML SYRINGE IVP STA ×2 (18:04→20:32)
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
[2016-09-15 18:44] LABS: Basophils % (A) 0 %; CH 27.7; CHCM 33.2; Eosinophils # (A) 0.2 k/uL (0-0.7); Eosinophils % (A) 3 %; HCT 36.5 % (34.0-46.0); HDW 2.72; Luc # (Auto) 0.19; Luc % (Auto) 2; Lymphocytes # (A) 1.8 k/uL (1.0-4.8); Lymphocytes % (A) 20 %; MCH 27.5 pg (25.0-35.0); MCHC 32.8 g/dL (31.0-37.0); MCV 83.7 fL (80.0-100.0); Mean Platelet Volume 7.3; Monocytes # (A) 0.4 k/uL (0-1.0); Monocytes % (A) 4 %; Neutrophils # (A) 6.4 k/uL (1.3-7.7); Neutrophils % (A) 71 %; RBC 4.36 m/uL (3.80-5.40); RDW 14.2 % (11.5-15.5); WBC 9.1 k/uL (3.8-10.6); WBC (Perox) 9.65
[2016-09-15 19:00] LABS: Carbon Dioxide 22 mmol/L (22-30); Chloride 109 mmol/L (98-107); Glucose 95 mg/dL (74-99); Sodium 143 mmol/L (137-145)
[2016-09-15 19:01] LABS: ALT 27 U/L (9-52); AST 22 U/L (14-36); Alkaline Phosphatase 103 U/L (38-126); Anion Gap 12 mmol/L; Blood Urea Nitrogen 9 mg/dL (7-17); Calcium 9.6 mg/dL (8.4-10.2); Magnesium 1.7 mg/dL (1.6-2.3); Non-African American GFR(MDRD) >60 (>60 ml/min/1.73 sqM); Total Bilirubin 0.8 mg/dL (0.2-1.3)
[2016-09-15 19:03] LABS: Potassium 4.3 mmol/L (3.5-5.1)
[2016-09-15 19:21] LABS: Creatine Kinase MB 0.4 ng/mL (0.0-2.4); Troponin I <0.012 ng/mL (0.000-0.034)
--- NOTE | 2016-09-15 19:42 | CT ---
EXAMINATION TYPE: CT brain wo con DATE OF EXAM: 09/15/2016 7:30 PM COMPARISON: 12/26/2015 HISTORY: PT STATES OF FALL WITH HEAD INJURY. CT DLP: 1052 mGycm Automated exposure control for dose reduction was used. FINDINGS: Ventricles have normal size. There is no mass effect nor midline shift. There is no sign of intracran ial hemorrhage. Calvarium is intact. There is a 2 x 1.5 cm rounded calcified mass in the suprasellar region. Margins are sharp. There is no surrounding edema. IMPRESSION: Suprasellar calcified mass is unchanged compared to old CT scan. Appearance could relate to a meningi samantha or osteochondroma. No acute intracranial abnormality.
[2016-09-15] MEDS ORDERED: ONDANSETRON 4 MG/2 ML VIAL IVP STA (19:56)
--- NOTE | 2016-09-15 20:19 | XR ---
EXAMINATION TYPE: XR ribs RT w pa chest xray DATE OF EXAM: 09/15/2016 8:12 PM COMPARISON: NONE HISTORY: Right-sided rib pain. Short of breath. TECHNIQUE: 5 views FINDINGS: Heart and mediastinum are normal. Lungs are clear. There is no sign of pleural effusion or pneumothorax. The right ribs appear intact. IMPRESSION: No active cardiopulmonary disease. Normal right ribs.
--- NOTE | 2016-09-15 20:21 | XR ---
EXAMINATION TYPE: XR pelvis AP view DATE OF EXAM: 09/15/2016 8:12 PM COMPARISON: 01/25/2015 HISTORY: Pain after a fall TECHNIQUE: Single view FINDINGS: The pelvic ring is intact. There is a left hip prosthesis. Sacroiliac joints appear normal. I see no acute fracture. There is spurring of the right acetabulum. IMPRESSION: Osteoarthritis in the right hip joint. No fracture seen.
--- NOTE | 2016-09-15 20:22 | XR ---
EXAMINATION TYPE: XR thoracic spine 2V DATE OF EXAM: 09/15/2016 8:13 PM COMPARISON: NONE HISTORY: Back pain TECHNIQUE: 3 views FINDINGS: Thoracic vertebra have fairly normal alignment. There is anterior spurring throughout the t horacic spine. I see no compression fracture. There is a mild upper thoracic kyphotic curvature. Pos terior elements are intact. There is no paraspinal mass. IMPRESSION: Moderate multilevel spondylosis. No fracture seen.
[2016-09-15] MEDS ORDERED: FUROSEMIDE 10 MG/ML 4 ML VIAL IV STA (20:32)
[2016-09-15] MEDS ORDERED: NITROGLYCERIN OINT 1 INCH/GM PACKET TOPICAL STA (20:32)
[2016-09-15 22:28] LABS: INR 1.1 (<1.1); Prothrombin Time 10.7 sec (9.0-12.0)
[2016-09-15 22:35] LABS: Partial Thromboplastin Time 18.2 sec (22.0-30.0)
[2016-09-15] MEDS ORDERED: CHOLESTYRAMINE (WITH SUGAR) 4 GM PACKET PO PRN (22:45)
[2016-09-16] MEDS: OLANZapine 2.5 MG TAB PO SCH ×3 (00:06→19:32)
[2016-09-16] MEDS: PANTOPRAZOLE 40 MG TABLET PO SCH ×3 (00:06→19:20)
[2016-09-16] MEDS: MELATONIN 5 MG TABLET PO SCH ×2 (00:06→19:20)
[2016-09-16] MEDS: traZODone HCL 50 MG TAB PO SCH ×2 (00:06→19:20)
[2016-09-16] MEDS: HYDROcodone/APAP 7.5-325MG 1 EACH TAB PO PRN (00:08)
[2016-09-16] MEDS: ONDANSETRON 4 MG/2 ML VIAL IVP PRN ×2 (01:21→09:47)
[2016-09-16] MEDS: HYDROmorphone 1 MG/ML 1 ML SYRINGE IVP PRN ×6 (01:21→23:33)
[2016-09-16] MEDS: METOPROLOL SUCCINATE (ER) 25 MG TAB.ER.24H PO SCH (09:47)
[2016-09-16] MEDS: FUROSEMIDE 40 MG TAB PO SCH (09:48)
[2016-09-16] MEDS: LEVOTHYROXINE 75 MCG TAB PO SCH (09:48)
[2016-09-16 10:12] VITALS: BMI 63.3
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
[2016-09-17] MEDS: HYDROmorphone 1 MG/ML 1 ML SYRINGE IVP PRN ×5 (04:02→20:29)
[2016-09-17] MEDS: FUROSEMIDE 40 MG TAB PO SCH (07:36)
[2016-09-17] MEDS: LEVOTHYROXINE 75 MCG TAB PO SCH (07:36)
[2016-09-17] MEDS: METOPROLOL SUCCINATE (ER) 25 MG TAB.ER.24H PO SCH (07:36)
[2016-09-17] MEDS: OLANZapine 2.5 MG TAB PO SCH ×2 (07:37→19:45)
[2016-09-17] MEDS: PANTOPRAZOLE 40 MG TABLET PO SCH ×2 (07:37→19:45)
[2016-09-17 08:16] LABS: Anion Gap 13 mmol/L; Blood Urea Nitrogen 14 mg/dL (7-17); Calcium 8.8 mg/dL (8.4-10.2); Carbon Dioxide 25 mmol/L (22-30); Chloride 107 mmol/L (98-107); Glucose 104 mg/dL (74-99); Non-African American GFR(MDRD) >60 (>60 ml/min/1.73 sqM); Potassium 4.5 mmol/L (3.5-5.1); Sodium 145 mmol/L (137-145)
[2016-09-17 09:14] LABS: Basophils % (A) 1 %; Eosinophils # (A) 0.3 k/uL (0-0.7); Eosinophils % (A) 4 %; HCT 35.3 % (34.0-46.0); HDW 2.53; HGB 11.1 gm/dL (11.4-16.0); Hypochromasia Slight; Luc # (Auto) 0.13; Luc % (Auto) 2; Lymphocytes # (A) 1.1 k/uL (1.0-4.8); Lymphocytes % (A) 16 %; MCH 27.4 pg (25.0-35.0); MCHC 31.4 g/dL (31.0-37.0); MCV 87.3 fL (80.0-100.0); Mean Platelet Volume 6.2; Monocytes # (A) 0.3 k/uL (0-1.0); Monocytes % (A) 5 %; Neutrophils % (A) 74 %; RBC 4.05 m/uL (3.80-5.40); RDW 14.2 % (11.5-15.5); WBC 6.8 k/uL (3.8-10.6); WBC (Perox) 7.19
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
--- NOTE | 2016-09-17 12:35 | P.PN ---
Subjective Principal diagnosis: CHF exacerbation Patient was seen and evaluated today by cardiology. There is concern about possible diastolic heart failure exacerbation with elevated BNP. She was started on IV Lasix. She did not have a bowel movement since yesterday. Objective - Vital Signs Vital signs: Vital Signs Temp 98.1 F 09/17/16 07:00 Pulse 76 09/17/16 07:00 Resp 16 09/17/16 07:00 BP 129/57 09/17/16 07:00 Pulse Ox 93 L 09/17/16 07:00 Intake & Output 09/16/16 09/17/16 09/17/16 18:59 06:59 18:59 Intake Total 420 300 Output Total 800 Balance -380 300 Weight 157 kg 139.5 kg Intake: Oral 420 300 Output: Urine 800 Other: Voiding Method Toilet Bedside Commode # Voids 2 # Bowel Movements 1 - Exam General: The patient is awake and alert, in no distress Eye: there is normal conjunctiva bilaterally. Neck: The neck is supple, there is no JVD. Cardiovascular: Normal S1-S2, no S3-S4, no murmurs. Respiratory: Lungs clear to auscultation bilaterally Gastrointestinal: Abdomen is soft, nontender Musculoskeletal: There is no pedal edema. Neurological:. Speech is normal. Skin: Skin is warm and dry - Labs CBC & Chem 7: 09/17/16 08:52 09/17/16 06:32 Labs: Abnormal Lab Results - Last 24 Hours (Table) 09/17/16 09/17/16 Range/Units 06:32 08:52 Hgb 11.1 L (11.4-16.0) gm/dL Glucose 104 H (74-99) mg/dL Assessment and Plan Plan: 1. Opiate dependence with chronic arthritis pain 2. One episode of diarrhea awaiting stool sample to rule out C. diff 3. Underlying diastolic congestive heart failure with mild exacerbation at this time started on IV Lasix 4. Morbid obesity 5. Obesity hypoventilation syndrome/chronic dyspnea Awaiting stool sample to rule out C. diff. continue IV Lasix for 24 hours per cardiology recommendations. Echocardiogram done in August 2016 reviewed showed preserved ejection fraction of 50-55%. No pulmonary hypertension. No significant valvular abnormality. Consult PT/OT. Consult social work for placement possibly to ECF to prevent further re-admissions. Patient was counseled extensively on previous admissions regarding opiate use. She was seen and evaluated by psychiatry at some point and recommended Zyprexa twice daily.
[2016-09-17] MEDS: traZODone HCL 50 MG TAB PO SCH (19:45)
[2016-09-17] MEDS: FUROSEMIDE 10 MG/ML 4 ML VIAL IV SCH (19:46)
[2016-09-17] MEDS: MELATONIN 5 MG TABLET PO SCH (19:46)
[2016-09-18] MEDS: HYDROmorphone 1 MG/ML 1 ML SYRINGE IVP PRN ×4 (01:19→12:52)
[2016-09-18] MEDS: LEVOTHYROXINE 75 MCG TAB PO SCH (08:15)
[2016-09-18] MEDS: METOPROLOL SUCCINATE (ER) 25 MG TAB.ER.24H PO SCH (08:15)
[2016-09-18] MEDS: OLANZapine 2.5 MG TAB PO SCH ×2 (08:15→19:49)
[2016-09-18] MEDS: FUROSEMIDE 10 MG/ML 4 ML VIAL IV SCH ×2 (08:15→18:32)
[2016-09-18] MEDS: PANTOPRAZOLE 40 MG TABLET PO SCH ×2 (08:16→21:49)
[2016-09-18 09:12] LABS: Basophils % (A) 1 %; CH 27.4; CHCM 32.5; Eosinophils # (A) 0.5 k/uL (0-0.7); Eosinophils % (A) 7 %; HCT 36.2 % (34.0-46.0); HDW 2.62; HGB 11.7 gm/dL (11.4-16.0); Luc # (Auto) 0.16; Luc % (Auto) 2; Lymphocytes # (A) 1.3 k/uL (1.0-4.8); Lymphocytes % (A) 18 %; MCH 27.3 pg (25.0-35.0); MCHC 32.3 g/dL (31.0-37.0); MCV 84.6 fL (80.0-100.0); Mean Platelet Volume 6.4; Monocytes # (A) 0.3 k/uL (0-1.0); Monocytes % (A) 3 %; Neutrophils # (A) 5.1 k/uL (1.3-7.7); Neutrophils % (A) 69 %; RBC 4.29 m/uL (3.80-5.40); RDW 14.3 % (11.5-15.5); WBC 7.3 k/uL (3.8-10.6); WBC (Perox) 7.31
[2016-09-18 09:44] LABS: Anion Gap 12 mmol/L; Blood Urea Nitrogen 18 mg/dL (7-17); Carbon Dioxide 26 mmol/L (22-30); Chloride 104 mmol/L (98-107); Glucose 138 mg/dL (74-99); Non-African American GFR(MDRD) >60 (>60 ml/min/1.73 sqM); Potassium 4.1 mmol/L (3.5-5.1); Sodium 142 mmol/L (137-145)
--- NOTE | 2016-09-18 11:17 | P.PN ---
Subjective CHF exacerbation Patient is still complaining of shortness of breath. Is only able to walk to the bedside commode. She started on IV Lasix yesterday. Cardiology is following. She denies any chest pain. Denies any nausea or vomiting. She had a formed stool yesterday. Diarrhea has resolved. Denies difficulty urinating. Objective - Vital Signs Vital signs: Vital Signs Temp 98.1 F 09/18/16 07:00 Pulse 75 09/18/16 07:00 Resp 16 09/18/16 07:00 BP 139/71 09/18/16 07:00 Pulse Ox 94 L 09/18/16 07:00 Intake & Output 09/17/16 09/18/16 09/18/16 18:59 06:59 18:59 Intake Total 240 Balance 240 Weight 139.5 kg Intake: Oral 240 Other: Voiding Method Bedside Commode Bedside Commode # Voids 1 2 # Bowel Movements 1 - Exam Head normocephalic Neck supple Lungs clear to auscultation bilaterally no wheezing or crackles Heart regular rate and rhythm S1-S2, no rub or gallop Abdomen is soft nontender nondistended positive bowel sounds no hepatosplenomegaly Extremities no edema Neuro alert and orientated to 3 - Labs CBC & Chem 7: 09/18/16 09:00 09/18/16 09:00 Labs: Abnormal Lab Results - Last 24 Hours (Table) 09/18/16 Range/Units 09:00 BUN 18 H (7-17) mg/dL Glucose 138 H (74-99) mg/dL Assessment and Plan Plan: 1. Acute diastolic CHF exacerbation: Currently on IV Lasix. Echo done in August 2016 showing an EF of 50-55%. Cardiology is following 2. Opiate dependence with chronic arthritis pain 3. Episode of diarrhea now rate resolved. Unable to collect stool for C. diff 4. Morbid obesity 5. Obesity hypoventilation syndrome with chronic dyspnea 6. Medical debility: Continue with physical therapy. Possible ECF placement at time of discharge
[2016-09-18] MEDS: HYDROcodone/APAP 7.5-325MG 1 EACH TAB PO PRN ×3 (11:25→21:49)
--- NOTE | 2016-09-18 13:20 | P.PN ---
Progress Note - Text This is a pleasant 66-year-old female patient who sees Dr. IFEOMA Cruz as an outpatient with a past medical history significant for obesity, hypertension, and chronic diastolic congestive heart failure, presented to the hospital complaining of shortness of breath. The patient stated that she was having dinner with a friend when she tried to get up and walk toward her current and then she fell. She did not lose her consciousness. After that incident, the patient started experiencing exertional dyspnea. She stated that she have chronic orthopnea. No chest pain or chest discomfort. She stated that she gained significant amount of weight over the last several weeks and she has been experiencing intermittent bilateral lower extremities edema. The patient presented to the emergency room and she was going to be discharged home when her oxygen drop upon walking. For that reason the patient was kept in the hospital. The EKG showed sinus rhythm without any significant ST or T-wave abnormalities. The only abnormalities I can find on the blood work was elevated BNP which was more than 1000. On physical examination I was able to hear pansystolic murmur left upper sternal border. But the patient underwent an echocardiogram that was performed earlier last month and showed normal of the function without any significant valvular abnormalities. I I would keep the patient on the IV Lasix for additional 24 hours with anticipation of discharge tomorrow. She seems to be diuresing very well.
[2016-09-18] MEDS: MELATONIN 5 MG TABLET PO SCH (19:48)
[2016-09-18] MEDS: traZODone HCL 50 MG TAB PO SCH (19:48)
[2016-09-19] MEDS: HYDROcodone/APAP 7.5-325MG 1 EACH TAB PO PRN ×3 (03:08→11:41)
[2016-09-19] MEDS: ONDANSETRON 4 MG/2 ML VIAL IVP PRN (03:08)
[2016-09-19 07:24] LABS: Basophils % (A) 1 %; CH 27.3; CHCM 31.9; Eosinophils # (A) 0.3 k/uL (0-0.7); Eosinophils % (A) 5 %; HDW 2.59; HGB 11.6 gm/dL (11.4-16.0); Luc # (Auto) 0.17; Luc % (Auto) 2; Lymphocytes # (A) 1.3 k/uL (1.0-4.8); Lymphocytes % (A) 19 %; MCH 27.7 pg (25.0-35.0); MCHC 32.3 g/dL (31.0-37.0); MCV 85.8 fL (80.0-100.0); Mean Platelet Volume 6.3; Monocytes # (A) 0.3 k/uL (0-1.0); Monocytes % (A) 5 %; Neutrophils # (A) 4.8 k/uL (1.3-7.7); Neutrophils % (A) 69 %; RDW 14.2 % (11.5-15.5); WBC (Perox) 7.36
[2016-09-19 08:00] LABS: Anion Gap 12 mmol/L; Blood Urea Nitrogen 23 mg/dL (7-17); Carbon Dioxide 27 mmol/L (22-30); Chloride 100 mmol/L (98-107); Glucose 110 mg/dL (74-99); Non-African American GFR(MDRD) >60 (>60 ml/min/1.73 sqM); Potassium 4.3 mmol/L (3.5-5.1); Sodium 139 mmol/L (137-145)
[2016-09-19] MEDS ORDERED: ALPRAZolam 0.5 MG TAB PO STA (10:37)
[2016-09-19] MEDS: FUROSEMIDE 10 MG/ML 4 ML VIAL IV SCH (11:14)
[2016-09-19] MEDS: PANTOPRAZOLE 40 MG TABLET PO SCH (11:15)
[2016-09-19] MEDS: LEVOTHYROXINE 75 MCG TAB PO SCH (11:17)
[2016-09-19] MEDS: METOPROLOL SUCCINATE (ER) 25 MG TAB.ER.24H PO SCH (11:17)
[2016-09-19] MEDS: OLANZapine 2.5 MG TAB PO SCH (11:18)
--- NOTE | 2016-09-19 13:10 | P.PN ---
Progress Note - Text This is a pleasant 66-year-old female patient who sees Dr. IFEOMA Cruz as an outpatient with a past medical history significant for obesity, hypertension, and chronic diastolic congestive heart failure, presented to the hospital complaining of shortness of breath. The patient stated that she was having dinner with a friend when she tried to get up and walk toward her current and then she fell. She did not lose her consciousness. After that incident, the patient started experiencing exertional dyspnea. She stated that she have chronic orthopnea. No chest pain or chest discomfort. She stated that she gained significant amount of weight over the last several weeks and she has been experiencing intermittent bilateral lower extremities edema. The patient presented to the emergency room and she was going to be discharged home when her oxygen drop upon walking. For that reason the patient was kept in the hospital. The EKG showed sinus rhythm without any significant ST or T-wave abnormalities. The only abnormalities I can find on the blood work was elevated BNP which was more than 1000. I am going to change the Lasix to by mouth. The patient can be discharged home.
--- NOTE | 2016-09-19 13:20 | P.DS ---
Providers Date of admission: 09/17/16 15:14 Expected date of discharge: 09/19/16 Attending physician: Marycruz Hopkins Consults: Dr. Momin Primary care physician: Rosa Lloyd Hospital Course: Discharge diagnosis 1. Acute diastolic CHF exacerbation: Currently on IV Lasix. Echo done in August 2016 showing an EF of 50-55%. Cardiology is following 2. Opiate dependence with chronic arthritis pain 3. Episode of diarrhea now rate resolved. Unable to collect stool for C. diff 4. Morbid obesity 5. Obesity hypoventilation syndrome with chronic dyspnea 6. Medical debility Hospital course This is 66-year-old female with past medical history noted below significant for opiate dependence who presented to the emergency room with worsening back pain and shortness of breath. Patient said that after she was released from the hospital last week she went with her friend for lunch in [place] and right-sided to get out of the restaurant she missed a step and feet and landed on her buttock. She said that she also hit her head in the process. She had no loss of consciousness. She had a computed tomography scan of the brain, x- ray of the thoracic spine, x-ray of the left hip which were all unremarkable. No evidence of any fractures. Patient is complaining of shortness of breath she did have a drop in oxygen saturation in the emergency room 92%. Was started on IV Lasix for an acute CHF exacerbation. Chest x-ray initially was unremarkable. BNP elevated at 1270. Patient was evaluated by cardiology and she is placed on IV Lasix 40 every 12 hours. Her shortness of breath and oxygen saturation did improve. And she is stable for discharge. She will be going to [facility] for further [facility]. Patient still complaining of some chronic pain. her Dahlgren will be increased to 10 mg every 6 hours as needed for pain. And she will be given Xanax 0.25 mg daily as needed for her anxiety. Patient is medically stable for discharge. Please refer to chart for any further details. Patient Condition at Discharge: Stable Plan - Discharge Summary New Discharge Prescriptions: ALPRAZolam [Xanax] 0.25 mg PO DAILY PRN #20 tab PRN Reason: Anxiety Furosemide [Lasix] 20 mg PO DIRECTED #60 tab HYDROcodone/APAP 10-325MG [Dahlgren 10-325] 1 tab PO Q6H PRN #40 tab PRN Reason: Pain Discharge Medication List Levothyroxine Sodium [Synthroid] 150 mcg PO DAILY 01/25/15 [History] Metoprolol Succinate [Toprol XL] 25 mg PO DAILY 01/25/15 [History] Melatonin 5 mg PO HS 10/24/15 [History] Omeprazole 20 mg PO BID 10/24/15 [History] traZODone HCL 150 mg PO HS 11/23/15 [History] Cholestyramine (with Sugar) [Cholestyramine Powder] 1 packet PO TID PRN [History] OLANZapine [ZyPREXA] 2.5 mg PO BID #60 tab 09/08/16 [Rx] ALPRAZolam [Xanax] 0.25 mg PO DAILY PRN #20 tab 09/19/16 [Rx] Furosemide [Lasix] 20 mg PO DIRECTED #60 tab 09/19/16 [Rx] HYDROcodone/APAP 10-325MG [Dahlgren 10-325] 1 tab PO Q6H PRN #40 tab 09/19/16 [Rx] Follow up Appointment(s)/Referral(s): Rosa Lloyd MD [Primary Care Provider] - 1 Week Activity/Diet/Wound Care/Special Instructions: Diet: cardiac Activity: as tolerated check BMP in 1 week Ok to d/c to [facility] Discharge Disposition: TRANSFER TO SNF/ECF
[2016-09-19] MEDS ORDERED: FUROSEMIDE 40 MG TAB PO SCH (16:00)
[2016-09-19 16:54] VITALS: BP 118/69; PULSE 91; RESP 16; TEMP 99.4
== END 2016-09-19 14:10 | DRG 292 ==
LOC: EC 16:59 → 3SUR 21:17 → OBSVTOIN 09-17 15:14 → 3SUR 09-17 19:54
PROVIDERS: ADMIT Internal Medicine; ATTEND Internal Medicine
DX: I11.0 Hypertensive heart disease with heart failure (principal); E66.2 Morbid (severe) obesity with alveolar hypoventilation; F11.20 Opioid dependence, uncomplicated; E03.9 Hypothyroidism, unspecified; I50.33 Acute on chronic diastolic (congestive) heart failure; F32.9 Major depressive disorder, single episode, unspecified; F41.9 Anxiety disorder, unspecified; G89.4 Chronic pain syndrome; I25.2 Old myocardial infarction; M19.90 Unspecified osteoarthritis, unspecified site; W10.9XXA Fall (on) (from) unspecified stairs and steps, initial encounter; Z79.899 Other long term (current) drug therapy; Z82.49 Family history of ischemic heart disease and other diseases of the circulatory system; Z85.42 Personal history of malignant neoplasm of other parts of uterus; Z87.19 Personal history of other diseases of the digestive system; Z87.442 Personal history of urinary calculi; Z88.6 Allergy status to analgesic agent; Z88.8 Allergy status to other drugs, medicaments and biological substances
CPT/HCPCS: 36415; 70450; 72070; 72170; 80048; 80053; 82553; 83605; 83735; 83880; 84484; 85025; 85610; 85730; 93005; 96374; 96375; 96376; 99285

== ENCOUNTER 2016-10-10 16:20 | Inpatient (IN) | payer MEDICARE, OTHER ==
[2016-10-10] MEDS ORDERED: IPRATROPIUM-ALBUTEROL 3 ML NEB INHALATION STA (16:46)
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
[2016-10-10 17:24] LABS: Basophils # (A) 0.1 k/uL (0-0.2); Basophils % (A) 1 %; CH 27.3; CHCM 31.8; Eosinophils # (A) 0.2 k/uL (0-0.7); Eosinophils % (A) 2 %; HCT 41.3 % (34.0-46.0); HDW 2.72; HGB 12.8 gm/dL (11.4-16.0); Hypochromasia Slight; Luc # (Auto) 0.17; Luc % (Auto) 2; Lymphocytes % (A) 11 %; MCH 26.7 pg (25.0-35.0); MCHC 30.9 g/dL (31.0-37.0); MCV 86.3 fL (80.0-100.0); Mean Platelet Volume 6.4; Monocytes # (A) 0.4 k/uL (0-1.0); Monocytes % (A) 4 %; Neutrophils % (A) 80 %; RBC 4.79 m/uL (3.80-5.40); RDW 14.7 % (11.5-15.5); WBC 8.8 k/uL (3.8-10.6)
[2016-10-10 17:28] LABS: ALT 25 U/L (9-52); AST 22 U/L (14-36); Alkaline Phosphatase 128 U/L (38-126); Anion Gap 13 mmol/L; Blood Urea Nitrogen 11 mg/dL (7-17); Calcium 9.6 mg/dL (8.4-10.2); Carbon Dioxide 25 mmol/L (22-30); Chloride 105 mmol/L (98-107); Glucose 119 mg/dL (74-99); Magnesium 1.5 mg/dL (1.6-2.3); Non-African American GFR(MDRD) >60 (>60 ml/min/1.73 sqM); Partial Thromboplastin Time 22.4 sec (22.0-30.0); Potassium 4.2 mmol/L (3.5-5.1); Prothrombin Time 10.4 sec (9.0-12.0); Sodium 143 mmol/L (137-145); Total Bilirubin 0.8 mg/dL (0.2-1.3); Total Protein 7.4 g/dL (6.3-8.2)
[2016-10-10 17:36] LABS: Creatine Kinase 124 U/L (30-135)
[2016-10-10] MEDS ORDERED: ONDANSETRON 4 MG/2 ML VIAL IVP STA (17:36)
[2016-10-10] MEDS ORDERED: ACETAMINOPHEN IV (For NPO) 1,000 MG in SALINE 1 100ML.BAG IVPB STA (17:36)
[2016-10-10 17:50] LABS: Creatine Kinase MB 3.5 ng/mL (0.0-2.4); Troponin I <0.012 ng/mL (0.000-0.034)
--- NOTE | 2016-10-10 18:20 | XR ---
EXAMINATION TYPE: XR chest 2V DATE OF EXAM: 10/10/2016 6:04 PM COMPARISON: 09/01/2016 HISTORY: Difficulty breathing TECHNIQUE: Frontal and lateral views of the chest are obtained. FINDINGS: Heart and mediastinum are normal. Lungs are clear of infiltrate. There are chest leads. Th ere is no heart failure. There are no hilar masses. Bony thorax is intact. IMPRESSION: No active cardiopulmonary disease. No change.
[2016-10-10] MEDS ORDERED: MAGNESIUM SULFATE-D5W PMX 1 GM in DEXTROSE/WATER 1 100ML.BAG IVPB ONE (18:30)
[2016-10-10] MEDS ORDERED: HYDROmorphone 1 MG/ML 1 ML SYRINGE IVP STA (19:00)
[2016-10-10] MEDS ORDERED: ALPRAZolam 0.25 MG TAB PO PRN (19:10)
[2016-10-10] MEDS: traZODone HCL 50 MG TAB PO SCH (22:42)
[2016-10-10] MEDS: MELATONIN 5 MG TABLET PO SCH (22:42)
[2016-10-10] MEDS: MORPHINE SULFATE ER 15 MG TABLET PO SCH (22:53)
[2016-10-10] MEDS: IPRATROPIUM-ALBUTEROL 3 ML NEB INHALATION SCH (23:36)
[2016-10-11] MEDS: HYDROmorphone 1 MG/ML 1 ML SYRINGE IVP PRN ×6 (00:10→20:30)
[2016-10-11] MEDS: methylPREDNISolone SOD SUCCI 125 MG/2 ML VIAL IV SCH ×5 (01:11→23:55)
[2016-10-11] MEDS: IPRATROPIUM-ALBUTEROL 3 ML NEB INHALATION SCH ×6 (05:55→23:05)
[2016-10-11] MEDS: LEVOTHYROXINE 75 MCG TAB PO SCH (05:55)
[2016-10-11 07:53] LABS: Glucose,Whole Blood 154 mg/dL (75-99)
[2016-10-11] MEDS: MORPHINE SULFATE ER 15 MG TABLET PO SCH ×2 (08:20→20:28)
[2016-10-11] MEDS: INSULIN LISPRO (humaLOG) 300 UNIT/3 ML VIAL SQ SCH ×4 (08:20→21:54)
[2016-10-11] MEDS: PANTOPRAZOLE 40 MG TABLET PO SCH (08:20)
[2016-10-11] MEDS: LEVOFLOXACIN 500 MG TAB PO SCH (08:20)
[2016-10-11] MEDS: METOPROLOL SUCCINATE (ER) 25 MG TAB.ER.24H PO SCH (08:20)
[2016-10-11 12:05] LABS: Glucose,Whole Blood 150 mg/dL (75-99)
[2016-10-11 13:55] LABS: Hemoglobin A1C 5.5 % (4.2-6.1)
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
[2016-10-11 17:16] LABS: Glucose,Whole Blood 154 mg/dL (75-99)
[2016-10-11] MEDS: traZODone HCL 50 MG TAB PO SCH (20:28)
[2016-10-11] MEDS: MELATONIN 5 MG TABLET PO SCH (20:29)
[2016-10-11 21:22] LABS: Glucose,Whole Blood 239 mg/dL (75-99)
[2016-10-11] MEDS: HEPARIN SODIUM,PORCINE 5,000 UNIT/ML 1 ML VIAL SQ SCH (21:56)
[2016-10-12] MEDS: HYDROmorphone 1 MG/ML 1 ML SYRINGE IVP PRN ×7 (00:29→21:22)
[2016-10-12] MEDS: IPRATROPIUM-ALBUTEROL 3 ML NEB INHALATION SCH ×5 (03:16→20:44)
[2016-10-12] MEDS: LEVOTHYROXINE 75 MCG TAB PO SCH (06:44)
[2016-10-12] MEDS: methylPREDNISolone SOD SUCCI 125 MG/2 ML VIAL IV SCH ×3 (06:44→20:34)
[2016-10-12 07:39] LABS: Glucose,Whole Blood 161 mg/dL (75-99)
[2016-10-12] MEDS: PANTOPRAZOLE 40 MG TABLET PO SCH (08:17)
[2016-10-12] MEDS: INSULIN LISPRO (humaLOG) 300 UNIT/3 ML VIAL SQ SCH ×4 (08:17→22:25)
[2016-10-12] MEDS: MORPHINE SULFATE ER 15 MG TABLET PO SCH ×2 (08:17→20:28)
[2016-10-12] MEDS: HEPARIN SODIUM,PORCINE 5,000 UNIT/ML 1 ML VIAL SQ SCH ×2 (08:17→22:28)
[2016-10-12] MEDS: LEVOFLOXACIN 500 MG TAB PO SCH (08:17)
[2016-10-12] MEDS: METOPROLOL SUCCINATE (ER) 25 MG TAB.ER.24H PO SCH (08:17)
[2016-10-12 08:27] LABS: Basophils % (A) 0 %; CH 27.5; CHCM 32.2; Eosinophils % (A) 0 %; HCT 34.7 % (34.0-46.0); HDW 2.61; HGB 10.9 gm/dL (11.4-16.0); Luc # (Auto) 0.11; Luc % (Auto) 2; Lymphocytes # (A) 0.8 k/uL (1.0-4.8); Lymphocytes % (A) 11 %; MCH 26.9 pg (25.0-35.0); MCHC 31.4 g/dL (31.0-37.0); MCV 85.8 fL (80.0-100.0); Mean Platelet Volume 7.3; Monocytes # (A) 0.3 k/uL (0-1.0); Monocytes % (A) 4 %; Neutrophils # (A) 6.3 k/uL (1.3-7.7); Neutrophils % (A) 83 %; RBC 4.04 m/uL (3.80-5.40); RDW 14.5 % (11.5-15.5); WBC 7.6 k/uL (3.8-10.6); WBC (Perox) 7.66
[2016-10-12 09:14] LABS: Anion Gap 8 mmol/L; Blood Urea Nitrogen 20 mg/dL (7-17); Calcium 9.4 mg/dL (8.4-10.2); Carbon Dioxide 26 mmol/L (22-30); Chloride 107 mmol/L (98-107); Glucose 146 mg/dL (74-99); Magnesium 1.8 mg/dL (1.6-2.3); Non-African American GFR(MDRD) >60 (>60 ml/min/1.73 sqM); Sodium 141 mmol/L (137-145)
--- NOTE | 2016-10-12 10:48 | P.PN ---
Subjective Principal diagnosis: Acute COPD exacerbation Patient is a 66-year-old female admitted to [facility] was worsening shortness of breath, she has a known history of congestive heart failure however, on presentation chest x-ray and BNP did not suggest acute CHF exacerbation, she was admitted to medical floor she was started on IV steroids and inhaled bronchodilators and IV antibiotics, preliminary diagnosis is COPD exacerbation. Patient denies ever smoking she states she was exposed to secondhand smoking all her life. Today she reports some improvement in her shortness of breath she was offered discharged home she states she is not ready yet she is still having significant shortness of breath. Objective - Vital Signs Vital signs: Vital Signs Temp 97.8 F 10/12/16 07:00 Pulse 84 10/12/16 07:00 Resp 20 10/12/16 07:00 BP 131/66 10/12/16 07:00 Pulse Ox 97 10/12/16 07:00 Intake & Output 10/11/16 10/12/16 10/12/16 17:59 06:59 18:59 Intake Total Balance Weight Intake: Oral Other: Voiding Method Bedside Commode Incontinent # Voids # Bowel Movements - Exam In general patient is alert and oriented 3 in no apparent distress HEENT head normocephalic and atraumatic Neck is supple no JVD no goiter no lymphadenopathy Chest exam reveals a few scattered crackles no wheezing Cardiac exam reveals regular heart sounds no gallops no murmurs Abdomen is soft nontender no organomegaly Extremity exam reveals no edema no cyanosis or clubbing - Labs CBC & Chem 7: 10/12/16 07:50 10/12/16 07:50 Labs: Abnormal Lab Results - Last 24 Hours (Table) 10/11/16 10/11/16 10/11/16 Range/Units 11:45 16:47 21:16 Hgb (11.4-16.0) gm/dL Lymphocytes # (1.0-4.8) k/uL BUN (7-17) mg/dL Glucose (74-99) mg/dL POC Glucose (mg/dL) 150 H 154 H 239 H (75-99) mg/dL 10/12/16 10/12/16 10/12/16 Range/Units 07:18 07:50 07:50 Hgb 10.9 L (11.4-16.0) gm/dL Lymphocytes # 0.8 L (1.0-4.8) k/uL BUN 20 H (7-17) mg/dL Glucose 146 H (74-99) mg/dL POC Glucose (mg/dL) 161 H (75-99) mg/dL Assessment and Plan Plan: #1 acute purulent bronchitis with low-grade fever #2 acute exacerbation of chronic obstructive pulmonary disease #3 underlying history of chronic congestive heart failure #4 chronic back pain #5 hyperglycemia due to steroid use maintained on insulin sliding scale At this time medication and labs were reviewed will continue was current management pulmonary consultation was requested will follow closely
[2016-10-12 11:44] LABS: Glucose,Whole Blood 167 mg/dL (75-99)
[2016-10-12] MEDS ORDERED: NITROGLYCERIN SL TABS 0.4 MG TAB SUBLINGUAL PRN (12:00)
[2016-10-12] MEDS ORDERED: ONDANSETRON 4 MG/2 ML VIAL IVP PRN (12:16)
--- NOTE | 2016-10-12 12:58 | PN ---
DATE OF SERVICE: 10/12/2016. HISTORY OF PRESENT ILLNESS: Patient is a 66-year-old female who initially came in with shortness of breath with any activity and low grade fever with occasional cough. She was admitted with dyspnea and history of acute on chronic diastolic CHF and COPD from secondhand smoke and problems with anxiety. She does also have problems with chronic pain. Patient is seen today. She is quite upset, she is crying and stating that she feels worse today than she did yesterday. She is noted to occasionally have a nonproductive cough. She is complaining at this time of problems with chest pain and nausea and subsequently will order an EKG and stat labs and put her on telemetry. Her vital signs are hemodynamically stable at this time. Lung sounds are diminished. She states that yesterday when she finally did urinate that her urine was black and subsequently will order a urine for further evaluation. Patient was advised to she probably could be discharged to home today by her PCP and patient is blatantly saying that she is not ready to be discharged. She has denies any problems with diarrhea. She has had lots of complaints about her diet. She states that she is being ignored. Her Solu-Medrol will be decreased. She is sating well on room air at 97%. She states that she has been up to the bedside commode. Will await her EKG and cardiac labs. She does have a history of heart catheterizations in the past and history of diastolic CHF and paroxysmal atrial fibrillation. On physical examination, vital signs show temperature of 97.8, heart rate 84, respiratory rate 20, blood pressure is 131/66, oxygen saturation is 97% on room air. LABS: WBCs are 7.6, hemoglobin 10.9, hematocrit 34.7, platelets are 301. Sodium is 141, potassium is 5, chloride 107, carbon dioxide 26, BUN 20, creatinine 0.7, glucose 167, calcium 9.4. Magnesium is 1.8. Blood cultures have been negative. GENERAL: She is a 66-year-old female who appears in no acute respiratory distress, though she is crying and anxious at this time. HEENT: Pupils are reactive. Mucous membranes are moist. Neck is short, supple, thick. LUNGS: Sounds are diminished throughout. No wheezing or rhonchi heard. CARDIOVASCULAR: S1 and S2 are heard; distant. ABDOMEN: Soft, obese. Extremities with 1+ edema. Dorsalis pedis pulses weakly palpable. NEUROLOGIC: She is awake, alert. IMPRESSION: 1. Atypical chest pain. 2. Dyspnea on admission. 3. Low-grade fever with cough. 4. History of acute on chronic diastolic congestive heart failure. 5. Chronic obstructive pulmonary disease with secondhand smoke. 6. Anxiety. 7. Chronic pain. 8. Hypothyroidism. 9. Hypertension with coronary artery disease. PLAN: Will order a stat EKG. Will put the patient on telemetry. Will order nitro sublingual as needed. Will do lab work-up for cardiac panel. Will collect a urine for questionable UTI. Will continue with GI and DVT prophylaxis. Her Solu-Medrol will be decreased. Will do repeat labs in the morning and will continue with medications as ordered at this time. Will continue to follow patient with you and make further changes as necessary.
[2016-10-12 14:03] LABS: Troponin I <0.012 ng/mL (0.000-0.034)
[2016-10-12 14:06] LABS: Creatine Kinase MB 2.7 ng/mL (0.0-2.4)
[2016-10-12 17:36] LABS: Glucose,Whole Blood 143 mg/dL (75-99)
[2016-10-12 17:41] LABS: Appearance,Urine Clear (Clear); Bilirubin,Urine Negative (Negative); Glucose,Urine (UA) Negative (Negative); Ketones,Urine Negative (Negative); Leukocyte Esterase,Urine Negative (Negative); Nitrite,Urine Negative (Negative); PH, Urine 5.5 (5.0-8.0); Protein,Urine Negative (Negative); Specific Gravity,Urine 1.022 (1.001-1.035); UA Billing (MACRO vs. MICRO) CHEM; Urobilinogen,Urine <2.0 mg/dL (<2.0)
[2016-10-12] MEDS ORDERED: IPRATROPIUM-ALBUTEROL 3 ML NEB INHALATION PRN (18:58)
[2016-10-12 20:03] LABS: Creatine Kinase MB 2.3 ng/mL (0.0-2.4); Troponin I <0.012 ng/mL (0.000-0.034)
[2016-10-12 20:29] LABS: Glucose,Whole Blood 149 mg/dL (75-99)
[2016-10-12] MEDS: traZODone HCL 50 MG TAB PO SCH (20:29)
[2016-10-12] MEDS: MELATONIN 5 MG TABLET PO SCH (20:30)
[2016-10-13] MEDS: HYDROmorphone 1 MG/ML 1 ML SYRINGE IVP PRN ×8 (00:22→21:30)
[2016-10-13 01:17] LABS: Creatine Kinase MB 1.8 ng/mL (0.0-2.4); Troponin I <0.012 ng/mL (0.000-0.034)
[2016-10-13] MEDS: LEVOTHYROXINE 75 MCG TAB PO SCH (06:37)
[2016-10-13 07:51] LABS: Glucose,Whole Blood 140 mg/dL (75-99)
[2016-10-13] MEDS: MORPHINE SULFATE ER 15 MG TABLET PO SCH ×2 (08:24→20:01)
[2016-10-13] MEDS: LEVOFLOXACIN 500 MG TAB PO SCH (08:24)
[2016-10-13] MEDS: HEPARIN SODIUM,PORCINE 5,000 UNIT/ML 1 ML VIAL SQ SCH ×2 (08:24→20:01)
[2016-10-13] MEDS: INSULIN LISPRO (humaLOG) 300 UNIT/3 ML VIAL SQ SCH ×4 (08:24→20:33)
[2016-10-13] MEDS: PANTOPRAZOLE 40 MG TABLET PO SCH (08:25)
[2016-10-13] MEDS: METOPROLOL SUCCINATE (ER) 25 MG TAB.ER.24H PO SCH (08:25)
[2016-10-13] MEDS: methylPREDNISolone SOD SUCCI 125 MG/2 ML VIAL IV SCH (08:25)
[2016-10-13] MEDS: IPRATROPIUM-ALBUTEROL 3 ML NEB INHALATION SCH ×4 (08:54→20:40)
[2016-10-13] MEDS: FUROSEMIDE 20 MG TAB PO SCH (11:25)
[2016-10-13 12:19] LABS: Glucose,Whole Blood 184 mg/dL (75-99)
--- NOTE | 2016-10-13 12:44 | PN ---
DATE OF SERVICE: 10/13/2016 HISTORY OF PRESENT ILLNESS: Patient is a 66-year-old female who states that she is still not feeling any better. She states that she feels that her chest is tight and that something is sitting on her chest. Will order a portable chest x-ray to be done. She has been just started back on Lasix, which she states that she was taking at home, and has not been ordered here. She is also asking for inhalers for at home. She feels that she is still not ready to be discharged, that she is not feeling any better. She did have cardiac work-up done yesterday which was negative for her chest pain. This was relayed to patient. She is denying any nausea, vomiting or diarrhea today. She was informed that her urine work-up from yesterday was also negative. She is getting nebulizer treatments. She denies having a nebulizer at home. On physical examination, vital signs show temperature of 98.3, heart rate 88, respiratory rate 16, blood pressure is 147/66, oxygen saturation 97% on 2 L. Labs for today show a glucose of 140, CK 116, CK-MB 1.8, and troponin was less than 0.012. Blood cultures have been negative. Urine culture still pending. GENERAL: She is a 66-year-old female who appears in no acute respiratory distress at this time. HEENT: Pupils are reactive. Mucous membranes are moist. Neck is short, supple, thick. Lung sounds remain diminished throughout. No wheezing or rhonchi are heard. CARDIOVASCULAR: S1 and S2 is heard. Appears regular. Abdomen is soft, obese. Extremities with 1+ at least edema noted. Right leg seems somewhat larger than left. NEUROLOGIC: She is awake, alert. She denies any leg pain at this time. IMPRESSION: 1. Dyspnea on admission, may have some components of asthma. 2. Atypical chest pain. 3. Low grade fever with cough. 4. History of acute on chronic diastolic congestive heart failure. 5. Possible chronic obstructive pulmonary disease related to secondhand smoke. 6. Anxiety. 7. Chronic pain. 8. Hypothyroidism. 9. Urinary retention. 10. Hypertension with coronary artery disease. PLAN: 1. Will order chest x-ray and see if she has had any fluid buildup. 2. Her Lasix has been resumed. 3. Will continue with GI and DVT prophylaxis. Will make adjustments to her steroids. 4. Patient is requesting an inhaler for home. 5. Will continue with supportive care.
--- NOTE | 2016-10-13 13:33 | P.PN ---
Subjective Acute COPD exacerbation Patient is a 66-year-old female admitted to [facility] was worsening shortness of breath, she has a known history of congestive heart failure however, on presentation chest x-ray and BNP did not suggest acute CHF exacerbation, she was admitted to medical floor she was started on IV steroids and inhaled bronchodilators and IV antibiotics, preliminary diagnosis is COPD exacerbation. Patient denies ever smoking she states she was exposed to secondhand smoking all her life. Patient reports that she still having shortness of breath. Also she feels that her legs are starting to have more swelling. Requesting that her home Lasix be restarted. She she did have episode chest pain yesterday. EKG had shown normal sinus rhythm and troponins were negative. Denies any nausea or vomiting. She is having bowel movement denies any difficulty urinating Objective - Vital Signs Vital signs: Vital Signs Temp 98.3 F 10/13/16 07:00 Pulse 88 10/13/16 09:28 Resp 16 10/13/16 07:00 BP 147/66 10/13/16 07:00 Pulse Ox 97 10/13/16 07:00 Intake & Output 10/12/16 10/13/16 10/13/16 18:59 06:59 18:59 Intake Total 480 920 Balance 480 920 Weight 159.5 kg Intake: Oral 480 920 Other: Voiding Method Bedside Commode Bedside Commode Incontinent Incontinent # Voids 1 2 1 # Bowel Movements 0 - Exam Head normocephalic Neck supple Lungs clear to auscultation bilaterally no wheezing or crackles Heart regular rate and rhythm S1-S2, no rub or gallop Abdomen is soft nontender nondistended positive bowel sounds no hepatosplenomegaly Extremities bilateral swelling lower extremities Neuro alert and orientated to 3 - Labs CBC & Chem 7: 10/12/16 07:50 10/12/16 07:50 Labs: Abnormal Lab Results - Last 24 Hours (Table) 10/12/16 10/12/16 10/12/16 Range/Units 12:56 12:56 17:24 POC Glucose (mg/dL) 143 H (75-99) mg/dL Creatine Kinase 140 H (30-135) U/L CK-MB (CK-2) 2.7 H* (0.0-2.4) ng/mL 10/12/16 10/12/1617 Range/Units 18:53 20:24 07:49 POC Glucose (mg/dL) 149 H 140 H (75-99) mg/dL Creatine Kinase 136 H (30-135) U/L CK-MB (CK-2) (0.0-2.4) ng/mL 10/13/16 Range/Units 12:18 POC Glucose (mg/dL) 184 H (75-99) mg/dL Creatine Kinase (30-135) U/L CK-MB (CK-2) (0.0-2.4) ng/mL Microbiology - Last 24 Hours (Table) 10/12/16 17:30 Urine Culture - Preliminary Urine,Clean Catch Assessment and Plan Plan: #1 acute purulent bronchitis: Continue Levaquin #2 acute exacerbation of chronic obstructive pulmonary disease: Continue IV Solu -Medrol. Pulmicort service following #3 underlying history of chronic congestive heart failure. Resume patient's home Lasix 20 mg by mouth daily. Pulmonary service ordered another chest x- ray. Continue to monitor #4 chronic back pain #5 hyperglycemia due to steroid use maintained on insulin sliding scale
--- NOTE | 2016-10-13 15:57 | XR ---
EXAMINATION TYPE: XR chest 1V portable DATE OF EXAM: 10/13/2016 3:18 PM COMPARISON: Prior chest x-ray 10 October 2016 HISTORY: Chest pressure TECHNIQUE: Single frontal view of the chest is obtained. FINDINGS: Patient is markedly rotated. Heart may be enlarged although accentuation of heart size may be due to rotation. There are overlying cardiac leads. No evident pneumothorax or pleural effusion. IMPRESSION: Cardiomegaly may be present, rotated exam, no definite acute abnormality
[2016-10-13 16:50] LABS: Glucose,Whole Blood 121 mg/dL (75-99)
[2016-10-13] MEDS: MELATONIN 5 MG TABLET PO SCH (20:01)
[2016-10-13] MEDS: traZODone HCL 50 MG TAB PO SCH (20:01)
[2016-10-13 20:48] LABS: Glucose,Whole Blood 160 mg/dL (75-99)
[2016-10-14] MEDS: HYDROmorphone 1 MG/ML 1 ML SYRINGE IVP PRN ×6 (00:51→16:03)
[2016-10-14] MEDS: LEVOTHYROXINE 75 MCG TAB PO SCH (06:23)
[2016-10-14 06:59] LABS: Glucose,Whole Blood 91 mg/dL (75-99)
[2016-10-14 07:35] VITALS: RESP 16
[2016-10-14] MEDS: IPRATROPIUM-ALBUTEROL 3 ML NEB INHALATION SCH ×3 (08:25→15:57)
[2016-10-14] MEDS ORDERED: methylPREDNISolone SOD SUCCI 125 MG/2 ML VIAL IV SCH (09:00)
[2016-10-14] MEDS: LEVOFLOXACIN 500 MG TAB PO SCH (09:06)
[2016-10-14] MEDS: METOPROLOL SUCCINATE (ER) 25 MG TAB.ER.24H PO SCH (09:06)
[2016-10-14] MEDS: PANTOPRAZOLE 40 MG TABLET PO SCH (09:07)
[2016-10-14] MEDS: MORPHINE SULFATE ER 15 MG TABLET PO SCH (09:07)
[2016-10-14] MEDS: HEPARIN SODIUM,PORCINE 5,000 UNIT/ML 1 ML VIAL SQ SCH (09:07)
[2016-10-14] MEDS: INSULIN LISPRO (humaLOG) 300 UNIT/3 ML VIAL SQ SCH ×2 (09:08→12:44)
[2016-10-14 09:35] LABS: ALT 26 U/L (9-52); AST 16 U/L (14-36); Alkaline Phosphatase 79 U/L (38-126); Anion Gap 7 mmol/L; Blood Urea Nitrogen 26 mg/dL (7-17); Calcium 8.9 mg/dL (8.4-10.2); Carbon Dioxide 31 mmol/L (22-30); Chloride 104 mmol/L (98-107); Glucose 86 mg/dL (74-99); Non-African American GFR(MDRD) >60 (>60 ml/min/1.73 sqM); Potassium 4.5 mmol/L (3.5-5.1); Sodium 142 mmol/L (137-145); Total Bilirubin 0.4 mg/dL (0.2-1.3)
[2016-10-14 09:39] LABS: Basophils % (A) 0 %; CH 27.6; CHCM 32.4; Eosinophils % (A) 0 %; HCT 33.8 % (34.0-46.0); HDW 2.52; HGB 10.9 gm/dL (11.4-16.0); Luc # (Auto) 0.16; Luc % (Auto) 2; Lymphocytes # (A) 1.5 k/uL (1.0-4.8); Lymphocytes % (A) 23 %; MCH 27.6 pg (25.0-35.0); MCHC 32.3 g/dL (31.0-37.0); MCV 85.5 fL (80.0-100.0); Mean Platelet Volume 7.6; Monocytes # (A) 0.4 k/uL (0-1.0); Monocytes % (A) 6 %; Neutrophils # (A) 4.6 k/uL (1.3-7.7); Neutrophils % (A) 68 %; RBC 3.95 m/uL (3.80-5.40); RDW 14.6 % (11.5-15.5); WBC 6.8 k/uL (3.8-10.6); WBC (Perox) 7.23
[2016-10-14 12:10] LABS: Glucose,Whole Blood 116 mg/dL (75-99)
--- NOTE | 2016-10-14 13:59 | P.DS ---
Providers Date of admission: 10/10/16 19:08 Expected date of discharge: 10/14/16 Attending physician: Amanda Garcia Consults: 10/11/16 13:05 Consult Physician Routine Consulting Provider: Abbie Jacob Consult Reason/Comments: dyspnea Do you want consulting provider notified?: Yes Primary care physician: Rosa Lloyd Hospital Course: Diagnosis on Discharge #1 Acute purulant bronchitis #2 Acute exacerbation of COPD #3 chronic diastolic congestive heart failure without any evidence of exacerbation at this time #4 morbid obesity #5 episode of chest tightness without lynda chest pain EKG and 3 sets of troponin normal Hospital course patient is a 66-year-old female who presented to [facility] with a chief complaint of cough and shortness of breath Chest x-ray on presentation failed to reveal any abnormality Repeat chest x-ray on 10/13/2016 also failed to reveal any longer abnormality Patient was evaluated by pulmonary, diagnosis was acute purulent bronchitis and acute exacerbation of chronic obstructive pulmonary disease Patient received IV antibiotic IV steroids and inhaled bronchodilators he improved gradually During this admission patient had an episode of chest tightness EKG and 3 sets of cardiac enzymes were negative Patient was discharged home on 10/14/2016 She should follow-up with her primary care physician within one week She should follow-up with pulmonary and with her fullerette within 1 week She will be continued on Levaquin 500 mg 1 daily for 5 more days She was also given a prescription for a nebulizer and DuoNeb 4 times daily as needed Otherwise she will continue with her home medications Patient Condition at Discharge: Stable Plan - Discharge Summary Discharge Medication List Levothyroxine Sodium [Synthroid] 150 mcg PO DAILY 01/25/15 [History] Metoprolol Succinate [Toprol XL] 25 mg PO DAILY 01/25/15 [History] Melatonin 5 mg PO HS 10/24/15 [History] Omeprazole 20 mg PO BID 10/24/15 [History] traZODone HCL 150 mg PO HS 11/23/15 [History] ALPRAZolam [Xanax] 0.25 mg PO DAILY PRN #20 tab 09/19/16 [Rx] Morphine Sulfate [Ms Contin] 15 mg PO Q12H 10/10/16 [History] Furosemide [Lasix] 20 mg PO DAILY tab 10/14/16 [Rx] Ipratropium-Albuterol Nebulize [Duoneb 0.5 mg-3 mg/3 ml Soln] 3 ml INHALATION RT -QID ampul.neb 10/14/16 [Rx] Levofloxacin [Levaquin] 500 mg PO DAILY tab 10/14/16 [Rx] Nitroglycerin Sl Tabs [Nitrostat] 0.4 mg SUBLINGUAL Q5M PRN #0 tab 10/14/16 [Rx] Follow up Appointment(s)/Referral(s): Abbie Jacob DO [Doctor of Osteopathic Medicine] - 1 Week Rosa Lloyd MD [Primary Care Provider] - 1 Week
[2016-10-14 16:08] VITALS: BP 136/79; PULSE 81; TEMP 98.6
[2016-10-14] MEDS: FUROSEMIDE 20 MG TAB PO SCH (17:46)
== END 2016-10-14 18:29 | disposition home or self-care (01) | DRG 191 ==
LOC: EC 16:20 → 4MS4W 19:08
PROVIDERS: ADMIT Internal Medicine; ATTEND Internal Medicine
DX: J44.0 Chronic obstructive pulmonary disease with (acute) lower respiratory infection (principal); I50.32 Chronic diastolic (congestive) heart failure; I11.0 Hypertensive heart disease with heart failure; I48.0 Paroxysmal atrial fibrillation; F32.9 Major depressive disorder, single episode, unspecified; E03.9 Hypothyroidism, unspecified; J20.9 Acute bronchitis, unspecified; J44.1 Chronic obstructive pulmonary disease with (acute) exacerbation; F41.9 Anxiety disorder, unspecified; G89.29 Other chronic pain; I25.10 Atherosclerotic heart disease of native coronary artery without angina pectoris; K58.9 Irritable bowel syndrome, unspecified; M13.0 Polyarthritis, unspecified; R33.9 Retention of urine, unspecified; Z77.22 Contact with and (suspected) exposure to environmental tobacco smoke (acute) (chronic); Z79.899 Other long term (current) drug therapy; Z80.1 Family history of malignant neoplasm of trachea, bronchus and lung; I25.2 Old myocardial infarction; Z82.49 Family history of ischemic heart disease and other diseases of the circulatory system; Z85.42 Personal history of malignant neoplasm of other parts of uterus; Z88.6 Allergy status to analgesic agent
CPT/HCPCS: 36415; 71010; 71020; 80048; 80053; 81003; 82550; 82553; 83036; 83605; 83735; 83880; 84484; 85025; 85610; 85730; 87040; 87086; 87502; 93005; 94640; 94760; 96365; 96366; 96367; 96375; 99291

== ENCOUNTER 2017-02-01 19:11 | Emergency (ER) | payer MEDICARE, OTHER ==
[2017-02-01] MEDS ORDERED: SODIUM CHLORIDE 0.9% 1,000 ML IV STA (19:45)
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
--- NOTE | 2017-02-01 20:20 | XR ---
EXAMINATION TYPE: XR KUB DATE OF EXAM: 02/01/2017 COMPARISON: NONE HISTORY: Pain TECHNIQUE: Single supine KUB image of the abdomen is obtained FINDINGS: Small bowel demonstrates no evidence for dilatation or air fluid levels. Gas and fecal material is seen in non-distended colon. No convincing evidence for pneumoperitoneum. No unusual calcifications. The lung bases are clear. The osseous structures are intact. IMPRESSION: 1. Overall nonobstructive bowel gas pattern.
--- NOTE | 2017-02-01 20:20 | XR ---
EXAMINATION TYPE: XR chest 2V DATE OF EXAM: 02/01/2017 COMPARISON: 10/13/2016 HISTORY: Shortness of breath TECHNIQUE: Frontal and lateral views of the chest are obtained. FINDINGS: Scattered senescent parenchymal changes noted. Hyperinflation compatible with COPD. No evidence for infiltrate. No evidence for atelectasis. Heart size is stable. Mediastinal structures are stable and grossly unremarkable. No evidence for hilar prominence. Degenerative changes dorsal spine. IMPRESSION: 1. No evidence for acute pulmonary disease.
[2017-02-01] MEDS ORDERED: ONDANSETRON 4 MG/2 ML VIAL IVP STA (21:40)
[2017-02-01] MEDS ORDERED: HYDROmorphone 1 MG/ML 1 ML SYRINGE IVP STA (21:40)
[2017-02-01 21:45] LABS: Basophils % (A) 1 %; CH 27.7; CHCM 33.4; Eosinophils # (A) 0.2 k/uL (0-0.7); Eosinophils % (A) 3 %; HCT 36.2 % (34.0-46.0); HDW 2.79; Luc # (Auto) 0.11; Luc % (Auto) 2; Lymphocytes # (A) 1.1 k/uL (1.0-4.8); Lymphocytes % (A) 16 %; MCH 27.7 pg (25.0-35.0); MCHC 33.3 g/dL (31.0-37.0); MCV 83.4 fL (80.0-100.0); Mean Platelet Volume 6.8; Monocytes # (A) 0.3 k/uL (0-1.0); Monocytes % (A) 5 %; Neutrophils # (A) 5.3 k/uL (1.3-7.7); Neutrophils % (A) 75 %; RBC 4.34 m/uL (3.80-5.40); WBC 7.1 k/uL (3.8-10.6); WBC (Perox) 7.39
[2017-02-01 21:53] LABS: INR 1.1 (<1.1); Prothrombin Time 11.1 sec (9.0-12.0)
[2017-02-01 21:54] LABS: ALT 35 U/L (9-52); AST 30 U/L (14-36); Alkaline Phosphatase 121 U/L (38-126); Amylase <30 U/L (30-110); Anion Gap 11 mmol/L; Blood Urea Nitrogen 9 mg/dL (7-17); Calcium 9.2 mg/dL (8.4-10.2); Carbon Dioxide 27 mmol/L (22-30); Chloride 105 mmol/L (98-107); Glucose 95 mg/dL (74-99); Magnesium 1.7 mg/dL (1.6-2.3); Non-African American GFR(MDRD) >60 (>60 ml/min/1.73 sqM); Sodium 143 mmol/L (137-145); Total Bilirubin 0.5 mg/dL (0.2-1.3); Total Protein 6.8 g/dL (6.3-8.2)
[2017-02-01 22:02] LABS: Creatine Kinase 26 U/L (30-135)
[2017-02-01 22:15] LABS: Creatine Kinase MB 0.3 ng/mL (0.0-2.4); Troponin I <0.012 ng/mL (0.000-0.034)
[2017-02-02 00:35] LABS: Appearance,Urine Clear (Clear); Bacteria,Urine Rare /hpf; Bilirubin,Urine Negative (Negative); Glucose,Urine (UA) Negative (Negative); Ketones,Urine 1+ (Negative); Leukocyte Esterase,Urine Moderate (Negative); Mucus,Urine Few /hpf; Nitrite,Urine Negative (Negative); PH, Urine 5.5 (5.0-8.0); Particle Count 5932; Protein,Urine Trace (Negative); RBC,Urine 2 /hpf (0-5); Squamous Epithelial Cell,Urine <1 /hpf (0-4); UA Billing (MACRO vs. MICRO) MICRO; WBC,Urine 26 /hpf (0-5)
[2017-02-02] MEDS ORDERED: HYDROmorphone 1 MG/ML 1 ML SYRINGE IVP STA (01:08)
[2017-02-02 01:23] VITALS: BP 132/77; PULSE 72; RESP 16; TEMP 97.6
== END 2017-02-02 02:05 | disposition home or self-care (01) ==
LOC: EC 19:11 → SUPCPDRO 19:11 → EC 02-02 02:05
DX: R10.84 Generalized abdominal pain (principal); R19.7 Diarrhea, unspecified; E66.01 Morbid (severe) obesity due to excess calories; E03.9 Hypothyroidism, unspecified; F41.9 Anxiety disorder, unspecified; F32.9 Major depressive disorder, single episode, unspecified; Z90.49 Acquired absence of other specified parts of digestive tract; Z96.651 Presence of right artificial knee joint; Z96.642 Presence of left artificial hip joint; Z79.899 Other long term (current) drug therapy; Z88.6 Allergy status to analgesic agent; Z88.8 Allergy status to other drugs, medicaments and biological substances
CPT/HCPCS: 36415; 93005; 83880; 80053; 82150; 82550; 82553; 83690; 83735; 84484; 85025; 85610; 85730; 81001; 87324; 87086; 87045; 89055; 87046; 71020; 74000; 99285; 96374; 96375; 96376; 96361; J2405; J1170 ×2; 87077; 87186; 99284

== ENCOUNTER 2017-02-02 13:09 | Inpatient (IN) | payer MEDICARE, OTHER ==
[2017-02-02] MEDS ORDERED: SODIUM CHLORIDE 0.9% 1,000 ML IV STA ×2 (13:37)
[2017-02-02] MEDS ORDERED: RX INFO: IV CONTRAST WAS GIVEN 1 EACH MISC MISCELLANE PRN (13:37)
[2017-02-02] MEDS ORDERED: HYDROmorphone 1 MG/ML 1 ML SYRINGE IVP STA ×2 (13:37→15:44)
[2017-02-02] MEDS ORDERED: ONDANSETRON 4 MG/2 ML VIAL IVP STA (13:37)
[2017-02-02] MEDS ORDERED: LEVOFLOXACIN 750MG-D5W PMX 750 MG in DEXTROSE/WATER 1 150ML.BAG IVPB STA (14:00)
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
[2017-02-02 14:15] LABS: Basophils % (A) 0 %; CH 27.2; CHCM 33.3; Eosinophils # (A) 0.2 k/uL (0-0.7); Eosinophils % (A) 3 %; HCT 35.2 % (34.0-46.0); HDW 2.88; HGB 12.2 gm/dL (11.4-16.0); Luc # (Auto) 0.09; Luc % (Auto) 1; Lymphocytes # (A) 0.6 k/uL (1.0-4.8); Lymphocytes % (A) 10 %; MCH 28.5 pg (25.0-35.0); MCHC 34.8 g/dL (31.0-37.0); MCV 82.1 fL (80.0-100.0); Mean Platelet Volume 7.3; Monocytes # (A) 0.2 k/uL (0-1.0); Monocytes % (A) 4 %; Neutrophils # (A) 5.5 k/uL (1.3-7.7); Neutrophils % (A) 83 %; RBC 4.29 m/uL (3.80-5.40); RDW 13.8 % (11.5-15.5); WBC 6.6 k/uL (3.8-10.6); WBC (Perox) 7.01
[2017-02-02 14:24] LABS: ALT 25 U/L (9-52); AST 24 U/L (14-36); Alkaline Phosphatase 104 U/L (38-126); Anion Gap 13 mmol/L; Blood Urea Nitrogen 9 mg/dL (7-17); Calcium 8.8 mg/dL (8.4-10.2); Carbon Dioxide 24 mmol/L (22-30); Chloride 106 mmol/L (98-107); Glucose 115 mg/dL (74-99); Non-African American GFR(MDRD) >60 (>60 ml/min/1.73 sqM); Potassium 3.9 mmol/L (3.5-5.1); Sodium 143 mmol/L (137-145); Total Bilirubin 0.5 mg/dL (0.2-1.3); Total Protein 6.6 g/dL (6.3-8.2)
--- NOTE | 2017-02-02 15:31 | CT ---
EXAMINATION TYPE: CT abdomen pelvis w con DATE OF EXAM: 02/02/2017 COMPARISON: 06/22/2016 INDICATION: Right upper quadrant pain with nausea and diarrhea. DLP: 2188.80 mGycm, Automated exposure control for dose reduction was used. CONTRAST: 50 mL of Omnipaque 300. Study performed without Oral Contrast TECHNIQUE: Axial images were obtained from above the diaphragm to the pubic rami in the axial plane a t 5 mm thick sections. Reconstructed images are reviewed on the computer in the coronal plane. FINDINGS: Limited CT sections are obtained the lung bases. The lung bases are clear. Some coronary artery estefania cification is likely present. CT ABDOMEN: Liver: Normal Spleen: Normal Pancreas: Some fatty infiltration of the pancreas. Adrenal glands: The adrenal glands are normal. Gallbladder: Not visualized. Kidneys: No masses are evident. No hydronephrosis is present. No cysts are present. Images obtaine d through the kidneys were delayed images. Aorta: Vascular calcification is within the aorta. Inferior vena cava: Normal. CT PELVIS: Mesenteric fat containing hernias in the periumbilical region. Diverticular changes are within the visualized colon. There are loops of bowel which are incompletely distended or lack oral contrast limiting their evaluation. Appendix: What appears to be the appendix is normal. Urinary bladder: Urinary bladder is limited evaluation due to beam hardening artifact from a left hip prosthesis. Genitourinary structures: Uterus and ovaries are not identified. Osseous structures: Left hip prosthesis is present facet degenerative changes are within the lumbar s pine. IMPRESSIONS: 1. Mild diverticulosis without acute diverticulitis.
[2017-02-02] MEDS ORDERED: ACETAMINOPHEN TAB 325 MG TAB PO PRN (16:26)
[2017-02-02] MEDS ORDERED: NALOXONE 0.4 MG/ML 1 ML VIAL IV PRN (16:26)
[2017-02-02] MEDS ORDERED: NITROGLYCERIN SL TABS 0.4 MG TAB SUBLINGUAL PRN (16:29)
[2017-02-02] MEDS ORDERED: ALBUTEROL NEBULIZED 2.5 MG/3 ML INHALATION PRN (16:29)
[2017-02-02 18:09] VITALS: BMI 73.1
[2017-02-02] MEDS: HYDROmorphone 1 MG/ML 1 ML SYRINGE IV PRN ×2 (18:16→22:21)
[2017-02-02] MEDS: traZODone HCL 50 MG TAB PO SCH (21:10)
[2017-02-03] MEDS: HYDROmorphone 1 MG/ML 1 ML SYRINGE IV PRN ×6 (01:24→23:38)
[2017-02-03] MEDS: ONDANSETRON 4 MG/2 ML VIAL IVP PRN ×3 (01:30→21:08)
[2017-02-03] MEDS: LEVOTHYROXINE 100 MCG TAB PO SCH (05:38)
[2017-02-03] MEDS: PYRIDOXINE 50 MG TAB PO SCH (07:55)
[2017-02-03] MEDS: PANTOPRAZOLE 40 MG/10 ML VIAL IVP SCH ×2 (07:55→21:08)
[2017-02-03] MEDS: METOPROLOL SUCCINATE (ER) 25 MG TAB.ER.24H PO SCH (07:55)
[2017-02-03] MEDS: HYDROcodone/APAP 10-325MG 1 EACH TAB PO PRN ×3 (07:56→21:15)
[2017-02-03] MEDS: ENOXAPARIN 40 MG/0.4 ML SYRINGE SQ SCH (08:49)
[2017-02-03] MEDS ORDERED: PANTOPRAZOLE 40 MG/10 ML VIAL IV SCH (09:00)
[2017-02-03] MEDS: LEVOFLOXACIN 750MG-D5W PMX 750 MG in DEXTROSE/WATER 1 150ML.BAG IVPB SCH (15:12)
[2017-02-03] MEDS: MELATONIN 3 MG TABLET PO SCH (21:10)
[2017-02-03] MEDS: traZODone HCL 50 MG TAB PO SCH (21:10)
[2017-02-04] MEDS: HYDROmorphone 1 MG/ML 1 ML SYRINGE IV PRN ×5 (04:58→20:59)
[2017-02-04] MEDS: LEVOTHYROXINE 100 MCG TAB PO SCH (05:42)
[2017-02-04] MEDS: HYDROcodone/APAP 10-325MG 1 EACH TAB PO PRN ×3 (05:45→18:29)
[2017-02-04] MEDS: PANTOPRAZOLE 40 MG/10 ML VIAL IVP SCH ×2 (08:22→21:11)
[2017-02-04] MEDS: METOPROLOL SUCCINATE (ER) 25 MG TAB.ER.24H PO SCH (08:22)
[2017-02-04] MEDS: PYRIDOXINE 50 MG TAB PO SCH (08:23)
[2017-02-04] MEDS: LEVOFLOXACIN 750MG-D5W PMX 750 MG in DEXTROSE/WATER 1 150ML.BAG IVPB SCH ×2 (15:16→16:19)
[2017-02-04] MEDS: LEVOFLOXACIN 750 MG TAB PO SCH (17:02)
[2017-02-04] MEDS: ONDANSETRON 4 MG/2 ML VIAL IVP PRN (20:59)
[2017-02-04] MEDS: traZODone HCL 50 MG TAB PO SCH (21:10)
[2017-02-04] MEDS: MELATONIN 3 MG TABLET PO SCH (21:11)
[2017-02-05] MEDS: HYDROmorphone 1 MG/ML 1 ML SYRINGE IV PRN ×6 (00:11→20:00)
[2017-02-05] MEDS: ONDANSETRON 4 MG/2 ML VIAL IVP PRN ×2 (06:23→15:05)
[2017-02-05] MEDS: LEVOTHYROXINE 100 MCG TAB PO SCH (06:23)
[2017-02-05] MEDS: METOPROLOL SUCCINATE (ER) 25 MG TAB.ER.24H PO SCH (09:51)
[2017-02-05] MEDS: ENOXAPARIN 40 MG/0.4 ML SYRINGE SQ SCH (09:51)
[2017-02-05] MEDS: PYRIDOXINE 50 MG TAB PO SCH (09:51)
[2017-02-05] MEDS: PANTOPRAZOLE 40 MG TABLET PO SCH ×2 (10:28→19:07)
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
[2017-02-05] MEDS: LEVOFLOXACIN 750 MG TAB PO SCH (15:05)
[2017-02-05] MEDS: HYDROcodone/APAP 10-325MG 1 EACH TAB PO PRN (15:05)
[2017-02-05 16:56] LABS: Basophils % (A) 0 %; CH 27.2; CHCM 33.6; Eosinophils # (A) 0.3 k/uL (0-0.7); Eosinophils % (A) 4 %; HCT 34.8 % (34.0-46.0); HDW 2.93; Luc # (Auto) 0.11; Luc % (Auto) 2; Lymphocytes % (A) 14 %; MCH 27.9 pg (25.0-35.0); MCHC 34.3 g/dL (31.0-37.0); MCV 81.2 fL (80.0-100.0); Mean Platelet Volume 7.6; Monocytes # (A) 0.4 k/uL (0-1.0); Monocytes % (A) 6 %; Neutrophils # (A) 5.4 k/uL (1.3-7.7); Neutrophils % (A) 75 %; RBC 4.29 m/uL (3.80-5.40); WBC 7.2 k/uL (3.8-10.6); WBC (Perox) 8.16
[2017-02-05 17:21] LABS: Anion Gap 8 mmol/L; Blood Urea Nitrogen 6 mg/dL (7-17); Calcium 8.8 mg/dL (8.4-10.2); Carbon Dioxide 26 mmol/L (22-30); Chloride 105 mmol/L (98-107); Glucose 98 mg/dL (74-99); Non-African American GFR(MDRD) >60 (>60 ml/min/1.73 sqM); Sodium 139 mmol/L (137-145)
[2017-02-05 17:23] LABS: Potassium 4.6 mmol/L (3.5-5.1)
[2017-02-05] MEDS: MELATONIN 3 MG TABLET PO SCH (20:53)
[2017-02-05] MEDS: traZODone HCL 50 MG TAB PO SCH (20:53)
[2017-02-06] MEDS: HYDROmorphone 1 MG/ML 1 ML SYRINGE IV PRN ×4 (02:09→20:29)
[2017-02-06] MEDS: HYDROcodone/APAP 10-325MG 1 EACH TAB PO PRN ×4 (03:50→22:02)
[2017-02-06] MEDS: LEVOTHYROXINE 100 MCG TAB PO SCH (05:43)
[2017-02-06] MEDS: PYRIDOXINE 50 MG TAB PO SCH (07:54)
[2017-02-06] MEDS: ONDANSETRON 4 MG/2 ML VIAL IVP PRN ×2 (07:59→20:29)
[2017-02-06] MEDS: PANTOPRAZOLE 40 MG TABLET PO SCH ×2 (08:03→16:58)
[2017-02-06] MEDS: METOPROLOL SUCCINATE (ER) 25 MG TAB.ER.24H PO SCH (08:05)
[2017-02-06 08:33] LABS: Basophils % (A) 1 %; CH 27.9; CHCM 34.6; Eosinophils # (A) 0.3 k/uL (0-0.7); Eosinophils % (A) 6 %; HCT 32.4 % (34.0-46.0); HGB 11.6 gm/dL (11.4-16.0); Luc # (Auto) 0.08; Luc % (Auto) 1; Lymphocytes % (A) 17 %; MCHC 35.8 g/dL (31.0-37.0); Mean Platelet Volume 8.7; Monocytes # (A) 0.4 k/uL (0-1.0); Monocytes % (A) 7 %; Neutrophils # (A) 4.2 k/uL (1.3-7.7); Neutrophils % (A) 69 %; RDW 14.2 % (11.5-15.5); WBC (Perox) 5.94
[2017-02-06 08:52] LABS: Anion Gap 8 mmol/L; Blood Urea Nitrogen 6 mg/dL (7-17); Calcium 8.7 mg/dL (8.4-10.2); Carbon Dioxide 26 mmol/L (22-30); Chloride 108 mmol/L (98-107); Glucose 100 mg/dL (74-99); Non-African American GFR(MDRD) >60 (>60 ml/min/1.73 sqM); Sodium 142 mmol/L (137-145)
[2017-02-06] MEDS: ENOXAPARIN 40 MG/0.4 ML SYRINGE SQ SCH (09:00)
[2017-02-06 09:01] LABS: Potassium 4.3 mmol/L (3.5-5.1)
[2017-02-06] MEDS ORDERED: LIDOCAINE 1% INJ 10MG/ML (20 ML MDV) ONE (13:28)
[2017-02-06] MEDS ORDERED: PROPOFOL 10 MG/ML 20 ML VIAL IV ONE (13:28)
[2017-02-06] MEDS ORDERED: IV FLUID CONTINUATION 800 ML IV ONE (13:42)
--- NOTE | 2017-02-06 13:43 | P.PCN ---
Date of Procedure: 02/06/17 Preoperative Diagnosis: Postoperative Diagnosis: Procedure(s) Performed: BRIEF HISTORY: Patient is a 66-year-old, pleasant, white female, scheduled for an upper endoscopy as a part of evaluation of epigastric pain and atypical chest pain for the last 1 month duration.. PROCEDURE PERFORMED: Esophagogastroduodenoscopy with biopsy. PREOPERATIVE DIAGNOSIS: Epigastric pain and atypical chest pain of one month duration. IV sedation per anesthesia. PROCEDURE: After informed consent was obtained, the patient was brought into the endoscopy unit. IV sedation was administered by Anesthesia under continuous monitoring. Initially the Olympus GIF-140 video endoscope was inserted into the mouth. Esophagus intubated without any difficulty. It was gradually advanced into the stomach and duodenum and carefully examined. The bulb and the second part of the duodenum appeared normal. biopsies were done from the duodenum to rule out celiac disease. The scope at this time was withdrawn to the stomach, adequately insufflated with air, and upon careful examination, mucosa of the antrum, had mild gastritis and biopsies were done from this area. The body, cardia and the fundus appeared normal. The scope was then withdrawn into the esophagus.small hiatal hernia noted. The GE junction was located at 39 cm from the incisors. The esophagus appeared normal. There were no erosions or ulcerations seen and the patient tolerated the procedure well. IMPRESSION: 1. Mild antral gastritis. 2. Small hiatal hernia. RECOMMENDATIONS: The findings of this examination were discussed with the patient. She was advised to follow with the biopsy results. She will be continued on her current medications and diet will be advanced as tolerated.. Implants: Indications for Procedure: Operative Findings: Description of Procedure:
[2017-02-06] MEDS: LEVOFLOXACIN 750 MG TAB PO SCH (15:24)
[2017-02-06] MEDS: ARIPiprazole 2 MG TAB PO SCH (15:27)
--- NOTE | 2017-02-06 15:39 | XR ---
EXAMINATION TYPE: XR chest 1V portable DATE OF EXAM: 02/06/2017 HISTORY: chf. REFERENCE: Previous study dated 02/01/2017. FINDINGS: The study is somewhat limited by the patient's size. The lungs appear clear. Heart size upper limits of normal. Pleural spaces are clear. IMPRESSION: NO ACUTE INTRATHORACIC ABNORMALITY.
--- NOTE | 2017-02-06 19:19 | HP ---
CHIEF COMPLAINT: Abdominal pain. HISTORY OF PRESENT ILLNESS: This 66-year-old woman with a past medical history of CHF, history of myocardial infarction, DJD, was complaining of abdominal pain. The patient previously had C difficile colitis. The patient also had diarrhea. Abdominal pain was felt in the upper part of the abdomen. It was provoked by food. The patient came to [facility] and was admitted for further evaluation and treatment. There is no history of any fever, rigor or chills. No history of headache, loss of consciousness, seizures. Abdominopelvic CT scan was done which was reviewed personally. It shows mild diverticulosis without any acute diverticulitis. PAST MEDICAL HISTORY: 1. History of CHF. 2. History of myocardial infarction. 3. DJD. 4. History of pneumonia. 5. History of colitis. HOME MEDICATIONS: 1. Abilify 2 mg p.o. daily. 2. Trazodone 150 mg at bedtime. 3. Vitamin B6 50 mg p.o. daily. 4. Nitrostat 0.4 sublingually p.r.n. 5. Toprol XL 25 mg daily. 6. Synthroid 100 mcg p.o. daily. 7. Stratton 1 tablet q.6 p.r.n. 8. Cipro 500 mg p.o. b.i.d. 9. Ventolin HFA 2 puffs q.i.d. p.r.n. ALLERGIES: 1. KETOROLAC. 2. ROBAXIN. 3. NSAIDS. 4. COMPAZINE. 5. ULTRAM. FAMILY HISTORY: History of cancer, CVA, hypertension, myocardial infarction, bladder and lung cancer in the family. SOCIAL HISTORY: No history of smoking. No history of alcohol intake. REVIEW OF SYSTEMS: ENT: No diminished hearing. No diminished vision. CARDIOVASCULAR SYSTEM: No angina. RESPIRATORY SYSTEM: No cough, hemoptysis. GI: As mentioned earlier. : No dysuria, retention. NERVOUS SYSTEM: No numbness, weakness. ALLERGY/IMMUNOLOGY: No asthma, hayfever. MUSCULOSKELETAL: As mentioned earlier. HEMATOLOGY/ONCOLOGY: No history of anemia. ENDOCRINE: Hypothyroidism. CONSTITUTIONAL: As mentioned earlier. DERMATOLOGIC: Negative. RHEUMATOLOGIC: Negative. PSYCHIATRY: As mentioned earlier. PHYSICAL EXAMINATION: Patient is alert and oriented x3. Pulse is 85, blood pressure 168/77, respiration 20, temperature 99.7, pulse ox 95% on room air. HEENT: Conjunctivae normal. Oral mucosa moist. NECK: No jugular venous congestion. No carotid bruit. No lymph node enlargement. CARDIAC: S1, S2 muffled. No S3. No S4. RESPIRATORY: Breath sounds diminished at the bases. No rhonchi. No crackles. ABDOMEN: Soft. Obese. Mild diffuse tenderness and discomfort in the epigastrium. No guarding. No rigidity. No mass palpable. No hepatosplenomegaly. Bowel sounds present. LEGS: No edema. No swelling. NERVOUS SYSTEM: Higher functions as mentioned earlier. Moves all 4 limbs. No focal motor or sensory deficit. LYMPHATICS: No lymph node palpable in neck, axillae or groin. SKIN: No ulcer, rash or bleeding. Labs at this time show CBC within normal limits. Glucose 115. ASSESSMENT: 1. Abdominal pain with possible acute gastritis or gastroenteritis. Rule out peptic ulcer disease. 2. History of congestive heart failure. 3. History of gastrointestinal bleed. 4. History of peptic ulcer disease. 5. History of colitis. 6. Multiple other medical problems. RECOMMENDATIONS AND DISCUSSION: In this 66-year-old woman who presented with multiple complex medical issues, we will monitor the patient closely, continue the current medications, continue with symptomatic treatment. Otherwise, at this time I would recommend gastroenterology evaluation, proton pump inhibitors. Guarded prognosis. Further recommendations to follow. See orders for further details. MTDD
--- NOTE | 2017-02-06 19:24 | PN ---
DATE OF SERVICE: 02/03/2017 This 66-year-old woman who was admitted with abdominal pain is suspected to have peptic ulcer disease. No chest pain. No palpitations. No fever. On exam, alert and oriented x3. Pulse 64, blood pressure 109/60, respiration 18 , temperature 97.3, pulse ox 93% on room air. HEENT: Conjunctivae normal. NECK: No jugular venous distention. CARDIOVASCULAR: S1, S2 muffled. RESPIRATORY: Breath sounds diminished at the bases. A few rhonchi. ABDOMEN: Soft. Mild diffuse tenderness in the epigastrium. No guarding. No rigidity. No mass palpable. LEGS: No edema. No swelling. NERVOUS SYSTEM: No focal deficit. LABS: CBC, BMP within normal limits. ASSESSMENT: 1. Upper abdominal pain, possibly acute gastroenteritis or peptic ulcer disease. 2. History of congestive heart failure. 3. History of myocardial infarction. 4. History of degenerative joint disease. 5. History of colitis. RECOMMENDATIONS AND DISCUSSION: I recommend to continue current medications, continue with symptomatic treatment. Continue with the proton pump inhibitors. Gastroenterology consultation. Possible EGD. Further recommendations to follow. MTDD
--- NOTE | 2017-02-06 19:29 | PN ---
DATE OF SERVICE: 02/04/2017 This 66-year-old woman who was admitted with upper abdominal discomfort and possible peptic ulcer disease is being closely monitored. No chest pain. No palpitations. No fever. On exam, alert and oriented x3. Pulse is 91, blood pressure 111/50, respiration 20, temperature 98.2, pulse ox 93% on room air. HEENT: Conjunctivae normal. NECK: No jugular venous distention. CARDIOVASCULAR: S1, S2 muffled. RESPIRATORY: Breath sounds diminished at the bases. No rhonchi. No crackles. ABDOMEN: Soft. Mild diffuse tenderness. LEGS: No edema. No swelling. NERVOUS SYSTEM: No focal deficit. LABS: CBC within normal limits. ASSESSMENT: 1. Upper abdominal pain; possibly peptic ulcer disease. 2. History of congestive heart failure. 3. History of gastrointestinal bleed. 4. History of pneumonia. 5. History of colitis. RECOMMENDATIONS AND DISCUSSION: I recommend to continue current medications, continue with symptomatic treatment. Possible endoscopy by Gastroenterology. Guarded prognosis. Symptomatic treatment will be continued. Further recommendations to follow. MTDD
--- NOTE | 2017-02-06 19:34 | PN ---
DATE OF SERVICE: 02/05/2017 This 66-year-old woman was admitted with upper abdominal pain. She is being evaluated for peptic ulcer disease. Dr. Rivero has recommended possible upper endoscopy tomorrow. No chest pain. No palpitations. No fever. Patient is unable to keep anything down, triggering significant upper abdominal pain. The patient is receiving Dilaudid around the clock. On exam, alert and oriented x3. Pulse is 68, blood pressure 125/72, respiration 13, temperature 98 degrees, pulse ox 92% on room air. HEENT: Conjunctivae normal. NECK: No jugular venous distention. CARDIOVASCULAR: S1, S2 muffled. RESPIRATORY: Breath sounds diminished at the bases. No rhonchi. No crackles. ABDOMEN: Soft. Mild diffuse tenderness in the epigastrium. LEGS: No edema. No swelling. NERVOUS SYSTEM: No focal deficit. LABS: CBC, BMP within normal limits. ASSESSMENT: 1. Upper abdominal pain, possibly peptic ulcer disease. 2. History congestive heart failure. 3. History of myocardial infarction. 4. History of coronary artery disease. 5. History of colitis. 6. Multiple other medical issues. RECOMMENDATIONS AND DISCUSSION: I recommend to continue current medications, continue symptomatic treatment. Otherwise, at this time repeat labs. Will closely follow with Gastroenterology for possible upper endoscopy. Prognosis guarded. Discussed with the patient, who understands and agrees. Dietary modifications. MTDD
[2017-02-06] MEDS: MELATONIN 3 MG TABLET PO SCH (20:37)
[2017-02-06] MEDS: traZODone HCL 50 MG TAB PO SCH (20:37)
[2017-02-07] MEDS: HYDROmorphone 1 MG/ML 1 ML SYRINGE IV PRN ×4 (03:08→20:43)
[2017-02-07] MEDS: ONDANSETRON 4 MG/2 ML VIAL IVP PRN ×3 (05:12→23:11)
[2017-02-07] MEDS: HYDROcodone/APAP 10-325MG 1 EACH TAB PO PRN ×4 (05:12→23:10)
[2017-02-07] MEDS: LEVOTHYROXINE 100 MCG TAB PO SCH (05:53)
[2017-02-07] MEDS: METOPROLOL SUCCINATE (ER) 25 MG TAB.ER.24H PO SCH (09:46)
[2017-02-07] MEDS: PANTOPRAZOLE 40 MG TABLET PO SCH ×2 (09:46→17:11)
[2017-02-07] MEDS: ARIPiprazole 2 MG TAB PO SCH (09:46)
[2017-02-07] MEDS: PYRIDOXINE 50 MG TAB PO SCH (09:46)
[2017-02-07] MEDS: ENOXAPARIN 40 MG/0.4 ML SYRINGE SQ SCH (09:47)
[2017-02-07] MEDS: LEVOFLOXACIN 750 MG TAB PO SCH (16:09)
[2017-02-07] MEDS: traZODone HCL 50 MG TAB PO SCH (20:43)
[2017-02-07] MEDS: MELATONIN 3 MG TABLET PO SCH (20:43)
[2017-02-08] MEDS: HYDROmorphone 1 MG/ML 1 ML SYRINGE IV PRN (04:28)
[2017-02-08] MEDS: HYDROcodone/APAP 10-325MG 1 EACH TAB PO PRN ×4 (06:16→20:47)
[2017-02-08] MEDS: LEVOTHYROXINE 100 MCG TAB PO SCH (06:16)
[2017-02-08] MEDS: ARIPiprazole 2 MG TAB PO SCH (08:11)
[2017-02-08] MEDS: PANTOPRAZOLE 40 MG TABLET PO SCH ×2 (08:11→18:16)
[2017-02-08] MEDS: ONDANSETRON 4 MG/2 ML VIAL IVP PRN ×2 (08:11→16:03)
[2017-02-08] MEDS: ENOXAPARIN 40 MG/0.4 ML SYRINGE SQ SCH (08:11)
[2017-02-08] MEDS: METOPROLOL SUCCINATE (ER) 25 MG TAB.ER.24H PO SCH (08:11)
[2017-02-08] MEDS: PYRIDOXINE 50 MG TAB PO SCH (08:11)
--- NOTE | 2017-02-08 08:49 | PN ---
DATE OF SERVICE: 02/06/2017 This 66-year-old woman who was admitted with abdominal pain is scheduled to have EGD today. No chest pain, no palpitations. No fever. On exam, alert and oriented x3. Pulse 75, blood pressure 120/76, respirations 18 , temperature 98.4, pulse ox 92% on room air. HEENT: Conjunctivae normal. NECK: No jugular venous distention. CARDIOVASCULAR: S1, S2. RESPIRATORY: Breath sounds are diminished at the bases. A few scattered rhonchi and crackles. ABDOMEN: Soft, nontender. LEGS: No edema. NERVOUS SYSTEM: No focal deficits. LABS: Hemoglobin 11.7. ASSESSMENT: 1. Acute abdominal pain possibly peptic ulcer disease rule out acute gastritis. 2. History of congestion heart failure. 3. History of myocardial infarction. 4. History of renal disease. RECOMMENDATIONS AND DISCUSSION: I recommend to continue the current medications , continue monitoring and symptomatic treatment. Otherwise closely monitor. EGD by Gastroenterology. Guarded prognosis. Further recommendations to follow. MTDD
[2017-02-08] MEDS: DIAZEPAM 2 MG TAB PO PRN ×2 (12:41→18:16)
[2017-02-08] MEDS: LEVOFLOXACIN 750 MG TAB PO SCH (16:03)
[2017-02-08] MEDS ORDERED: DICYCLOMINE 10 MG CAP PO PRN (18:44)
[2017-02-08] MEDS: traZODone HCL 50 MG TAB PO SCH (20:46)
[2017-02-08] MEDS: MELATONIN 3 MG TABLET PO SCH (20:46)
[2017-02-08] MEDS: SUCRALFATE 1 GM TAB PO SCH (20:47)
[2017-02-09] MEDS ORDERED: ONDANSETRON 4 MG/2 ML VIAL ONE (00:30)
[2017-02-09] MEDS ORDERED: DIAZEPAM 2 MG TAB ONE (00:30)
[2017-02-09] MEDS ORDERED: HYDROcodone/APAP 10-325MG 1 EACH TAB ONE (00:30)
[2017-02-09] MEDS: HYDROcodone/APAP 10-325MG 1 EACH TAB PO PRN ×3 (04:34→12:51)
[2017-02-09] MEDS: LEVOTHYROXINE 100 MCG TAB PO SCH (06:21)
[2017-02-09] MEDS: DIAZEPAM 2 MG TAB PO PRN ×2 (06:29→12:51)
[2017-02-09 07:41] VITALS: BP 121/63; PULSE 71; RESP 18; TEMP 96.8
[2017-02-09] MEDS: ENOXAPARIN 40 MG/0.4 ML SYRINGE SQ SCH (08:13)
[2017-02-09] MEDS: SUCRALFATE 1 GM TAB PO SCH ×2 (08:14→11:22)
[2017-02-09] MEDS: METOPROLOL SUCCINATE (ER) 25 MG TAB.ER.24H PO SCH (08:14)
[2017-02-09] MEDS: PYRIDOXINE 50 MG TAB PO SCH (08:14)
[2017-02-09] MEDS: PANTOPRAZOLE 40 MG TABLET PO SCH (08:14)
[2017-02-09] MEDS: ARIPiprazole 2 MG TAB PO SCH (08:14)
[2017-02-09] MEDS: ONDANSETRON 4 MG/2 ML VIAL IVP PRN (08:19)
--- NOTE | 2017-02-09 13:17 | PN ---
DATE OF SERVICE: 02/07/17 This 66 year old woman was admitted with severe abdominal pain. The EGD showed and duodenitis. No chest pain. No palpitations. ECF rehab is planned. No fever, no cough. PHYSICAL EXAMINATION: The patient is alert and oriented times three. Pulse is 65 Blood pressure is 114/78. Respiratory rate 18. Temperature 97.4. Pulse ox 95% on room air. HEENT: Conjunctivae normal. NECK: No JVD. CARDIOVASCULAR: S1, S2 muffled. RESPIRATORY: Breath sounds diminished at the bases. A few scattered rhonchi. ABDOMEN: Soft, mild diffuse discomfort in the epigastrium. no guarding. No rigidity. No mass palpable. LEGS: No edema. No swelling. NERVOUS SYSTEM: No focal deficits. LABS: CBC noted. ASSESSMENT: 1. Upper abdominal pain with possibly acute gastritis and duodenitis. 2. History of peptic ulcer disease. 3. History of congestive heart failure. 4. History of myocardial infarction. 5. History of coronary artery disease. 6. History fo colitis. 7. Multiple other medical issues. 8. Gait dysfunction. RECOMMENDATIONS AND DISCUSSION: Continue the current medications, continue symptomatic treatment. Otherwise, continue proton pump inhibitors. Closely follow up . See orders for further details. Discussed with Jesus ([id number]) the son. Prognosis guarded. Further recommendations to follow. Possible ECF rehab. [facility]
--- NOTE | 2017-02-09 13:35 | P.DS ---
Providers Date of admission: 02/02/17 16:29 Attending physician: Carine Miller Consults: 02/02/17 16:28 Consult Physician Urgent Consulting Provider: Ray Rivero Consult Reason/Comments: abd pain, diarrhea Do you want consulting provider notified?: Yes [facility] [place] [facility] Course: This 66-year-old woman who is being followed by Dr. garcia was admitted with upper abdominal pain and for possible acute gastritis and duodenitis to [facility]. The patient was evaluated by Dr. Amaral who performed EGD. EGD showed gastritis and duodenitis. The patient was treated symptomatically. The patient also had a chronic pain syndrome. On exam weight is a stable. cardio system S1-S2 normal. RS: resp sounds diminished. Abdomen soft no guarding or rigidity. Bowel sounds present. Next The patient be transferred to [facility] for continued rehabilitation and monitoring. I recommended the patient to follow up closely with Dr. Amaral and primary physician. Currently patient is stable but overall prognosis is guarded because of multiple medical issues. Final diagnosis. 1. Upper abdominal pain with the possibility of gastritis and/or Ranexa. 2. History of peptic ulcer disease. 3. History of CHF. 4. History of MO. I. History of coronary disease. 6. History of colitis. 7. Multiple medical issues. 8. Gait dysfunction. Patient Condition at Discharge: Fair Plan - Discharge Summary New Discharge Prescriptions: New Diazepam [Valium] 2.5 mg PO QID PRN #20 tab PRN Reason: Agitation Or Acute Anxiety Dicyclomine [Bentyl] 10 mg PO QID PRN cap PRN Reason: Abdominal Distention Melatonin 6 mg PO HS tab Pantoprazole [Protonix] 40 mg PO AC-BID tab Sucralfate [Carafate] 1 gm PO ACHS tab Continue Metoprolol Succinate [Toprol XL] 25 mg PO DAILY traZODone HCL 150 mg PO HS Nitroglycerin Sl Tabs [Nitrostat] 0.4 mg SUBLINGUAL Q5M PRN #0 tab PRN Reason: Chest Pain Levothyroxine Sodium [Synthroid] 100 mcg PO DAILY Albuterol Nebulized [Ventolin Nebulized] 2.5 mg INHALATION RT-QID PRN PRN Reason: Shortness Of Breath Pyridoxine [Vitamin B-6] 50 mg PO DAILY ARIPiprazole [Abilify] 2 mg PO DAILY Ciprofloxacin HCl [Cipro] 500 mg PO Q12HR #10 tablet HYDROcodone/APAP 10-325MG [Wheelwright 10-325] 1 tab PO Q6H PRN #20 PRN Reason: Pain Discharge Medication List Metoprolol Succinate [Toprol XL] 25 mg PO DAILY 01/25/15 [History] traZODone HCL 150 mg PO HS 11/23/15 [History] Nitroglycerin Sl Tabs [Nitrostat] 0.4 mg SUBLINGUAL Q5M PRN #0 tab 10/14/16 [Rx] Albuterol Nebulized [Ventolin Nebulized] 2.5 mg INHALATION RT-QID PRN 02/01/17 [ History] Levothyroxine Sodium [Synthroid] 100 mcg PO DAILY 02/01/17 [History] Pyridoxine [Vitamin B-6] 50 mg PO DAILY 02/01/17 [History] ARIPiprazole [Abilify] 2 mg PO DAILY 02/05/17 [History] Ciprofloxacin HCl [Cipro] 500 mg PO Q12HR #10 tablet 02/09/17 [Rx] Diazepam [Valium] 2.5 mg PO QID PRN #20 tab 02/09/17 [Rx] Dicyclomine [Bentyl] 10 mg PO QID PRN cap 02/09/17 [Rx] HYDROcodone/APAP 10-325MG [Wheelwright 10-325] 1 tab PO Q6H PRN #20 02/09/17 [Rx] Melatonin 6 mg PO HS tab 02/09/17 [Rx] Pantoprazole [Protonix] 40 mg PO AC-BID tab 02/09/17 [Rx] Sucralfate [Carafate] 1 gm PO ACHS tab 02/09/17 [Rx] Follow up Appointment(s)/Referral(s): Jorje Domingo MD [Primary Care Provider] - 1-2 days Activity/Diet/Wound Care/Special Instructions: diet soft bland act as tolerated Discharge Disposition: TRANSFER TO SNF/ECF
[2017-02-09 14:22] LABS: ALT 24 U/L (9-52); AST 27 U/L (14-36); Alkaline Phosphatase 86 U/L (38-126); Anion Gap 9 mmol/L; Blood Urea Nitrogen 8 mg/dL (7-17); Calcium 8.9 mg/dL (8.4-10.2); Carbon Dioxide 26 mmol/L (22-30); Chloride 106 mmol/L (98-107); Glucose 108 mg/dL (74-99); Non-African American GFR(MDRD) >60 (>60 ml/min/1.73 sqM); Potassium 4.1 mmol/L (3.5-5.1); Sodium 141 mmol/L (137-145); Total Bilirubin 0.6 mg/dL (0.2-1.3); Total Protein 5.9 g/dL (6.3-8.2)
[2017-02-09] MEDS: LEVOFLOXACIN 750 MG TAB PO SCH (15:28)
--- NOTE | 2017-02-09 20:29 | PN ---
DATE OF SERVICE: 02/08/2017 This 66-year-old woman was admitted with severe abdominal pain. She had gastritis and duodenitis on the EGD. No chest pain. No palpitations. No fever. On exam, alert and oriented x3. Pulse 66, blood pressure 109/71, respiration 18 , temperature 97.8, pulse ox 97% on room air. HEENT: Conjunctivae normal. NECK: No jugular venous distention. CARDIOVASCULAR: S1, S2 muffled. RESPIRATORY: Breath sounds diminished at the bases. Scattered rhonchi and crackles. ABDOMEN: Soft. Minimal diffuse tenderness. LEGS: No edema. No swelling. NERVOUS SYSTEM: No focal deficit. LABS: CRP is 22.3. ESR is 34. ASSESSMENT: 1. Upper abdominal pain, possibly severe esophagitis and gastritis, status post EGD. 2. History of congestive heart failure. 3. History of myocardial infarction. 4. History of coronary artery disease. 5. History of colitis. 6. Multiple medical issues. RECOMMENDATIONS AND DISCUSSION: I recommend to continue current medications, continue symptomatic treatment, monitor the patient closely. Guarded prognosis. Further recommendations to follow. MTDD
== END 2017-02-09 16:07 | DRG 392 ==
LOC: EC 13:09 → 3SUR 16:29 → 4MS4W 19:34
PROVIDERS: ADMIT Hospitalist; ATTEND Hospitalist
PROC: 0DB68ZX Excision of Stomach, Via Natural or Artificial Opening Endoscopic, Diagnostic (ICD-10-PCS; principal; 2017-02-02)
PROC: 0DB98ZX Excision of Duodenum, Via Natural or Artificial Opening Endoscopic, Diagnostic (ICD-10-PCS; principal; 2017-02-02)
DX: K29.60 Other gastritis without bleeding (principal); I50.9 Heart failure, unspecified; E66.01 Morbid (severe) obesity due to excess calories; E03.9 Hypothyroidism, unspecified; K29.80 Duodenitis without bleeding; G89.4 Chronic pain syndrome; I25.10 Atherosclerotic heart disease of native coronary artery without angina pectoris; K22.70 Barrett's esophagus without dysplasia; K44.9 Diaphragmatic hernia without obstruction or gangrene; K57.90 Diverticulosis of intestine, part unspecified, without perforation or abscess without bleeding; K58.9 Irritable bowel syndrome, unspecified; M13.0 Polyarthritis, unspecified; Z87.442 Personal history of urinary calculi; Z79.899 Other long term (current) drug therapy; Z80.1 Family history of malignant neoplasm of trachea, bronchus and lung; Z82.3 Family history of stroke; Z82.49 Family history of ischemic heart disease and other diseases of the circulatory system; Z85.42 Personal history of malignant neoplasm of other parts of uterus; Z86.19 Personal history of other infectious and parasitic diseases; I25.2 Old myocardial infarction; Z87.01 Personal history of pneumonia (recurrent); Z96.651 Presence of right artificial knee joint; Z88.6 Allergy status to analgesic agent; Z88.1 Allergy status to other antibiotic agents
CPT/HCPCS: 36415; 43239; 71010; 74177; 80048; 80053; 85025; 85652; 86140; 87324; 88305; 88342

== ENCOUNTER 2017-02-28 15:13 | Observation (INO) | payer MEDICARE, OTHER ==
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
[2017-02-28] MEDS ORDERED: ONDANSETRON 4 MG/2 ML VIAL IVP STA (16:13)
[2017-02-28] MEDS ORDERED: DICYCLOMINE 10 MG/ML 2 ML AMP IM STA (16:15)
[2017-02-28 17:05] LABS: Appearance,Urine Clear (Clear); Bilirubin,Urine Negative (Negative); Glucose,Urine (UA) Negative (Negative); Ketones,Urine Negative (Negative); Leukocyte Esterase,Urine Negative (Negative); Nitrite,Urine Negative (Negative); Protein,Urine Trace (Negative); Specific Gravity,Urine 1.011 (1.001-1.035); UA Billing (MACRO vs. MICRO) CHEM; Urobilinogen,Urine <2.0 mg/dL (<2.0)
--- NOTE | 2017-02-28 17:20 | XR ---
Abdomen HISTORY: Pain Frontal view of the abdomen on 2 images and correlated to prior exam 02/01/2017 There is no interval change. Air-fluid levels without bowel distention are noted. Postop change noted to the left hip. Calcifications compatible injection granuloma present in the gluteal regions. IMPRESSION: Correlate for enteritis or ileus.
[2017-02-28 17:45] LABS: Basophils % (A) 0 %; CH 27.2; CHCM 32.7; Eosinophils # (A) 0.1 k/uL (0-0.7); Eosinophils % (A) 1 %; HCT 39.3 % (34.0-46.0); HGB 12.7 gm/dL (11.4-16.0); Luc # (Auto) 0.08; Luc % (Auto) 1; Lymphocytes % (A) 14 %; MCH 27.1 pg (25.0-35.0); MCHC 32.4 g/dL (31.0-37.0); MCV 83.6 fL (80.0-100.0); Mean Platelet Volume 7.8; Monocytes # (A) 0.3 k/uL (0-1.0); Monocytes % (A) 5 %; Neutrophils # (A) 5.5 k/uL (1.3-7.7); Neutrophils % (A) 79 %; RDW 14.2 % (11.5-15.5); WBC (Perox) 7.27
[2017-02-28 18:02] LABS: ALT 30 U/L (9-52); AST 45 U/L (14-36); Alkaline Phosphatase 98 U/L (38-126); Amylase <30 U/L (30-110); Anion Gap 10 mmol/L; Blood Urea Nitrogen 6 mg/dL (7-17); Calcium 9.1 mg/dL (8.4-10.2); Carbon Dioxide 25 mmol/L (22-30); Chloride 105 mmol/L (98-107); Glucose 98 mg/dL (74-99); Non-African American GFR(MDRD) >60 (>60 ml/min/1.73 sqM); Sodium 140 mmol/L (137-145); Total Protein 7.3 g/dL (6.3-8.2)
[2017-02-28 18:07] LABS: Potassium 4.3 mmol/L (3.5-5.1)
[2017-02-28] MEDS ORDERED: HYDROmorphone 1 MG/ML 1 ML SYRINGE IVP STA (18:44)
[2017-02-28] MEDS ORDERED: SODIUM CHLORIDE 0.9% 1,000 ML IV ONE (18:46)
[2017-02-28] MEDS ORDERED: ALBUTEROL NEBULIZED 2.5 MG/3 ML INHALATION PRN (22:06)
[2017-02-28 22:42] VITALS: BMI 60.3
[2017-02-28] MEDS: HYDROmorphone 1 MG/ML 1 ML SYRINGE IVP PRN (23:20)
[2017-02-28] MEDS: METOPROLOL SUCCINATE (ER) 25 MG TAB.ER.24H PO SCH (23:21)
[2017-02-28] MEDS: traZODone HCL 100 MG TAB PO SCH (23:21)
[2017-03-01] MEDS: HYDROmorphone 1 MG/ML 1 ML SYRINGE IVP PRN ×2 (04:52→08:52)
[2017-03-01] MEDS: METOPROLOL SUCCINATE (ER) 25 MG TAB.ER.24H PO SCH (08:52)
[2017-03-01] MEDS: ONDANSETRON 4 MG/2 ML VIAL IVP PRN ×2 (12:17→21:51)
[2017-03-01] MEDS ORDERED: HYDROcodone/APAP 10-325MG 1 EACH TAB PO PRN (12:55)
[2017-03-01] MEDS ORDERED: DIAZEPAM 2 MG TAB PO PRN (12:55)
[2017-03-01] MEDS ORDERED: LOPERAMIDE 2 MG CAP PO PRN (12:55)
[2017-03-01] MEDS: MORPHINE SULFATE ER 15 MG TABLET PO SCH ×2 (13:12→21:52)
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
[2017-03-01] MEDS ORDERED: DIPHENOX-ATROP 2.5-0.025 MG 1 EACH TAB PO PRN (16:55)
[2017-03-01] MEDS: traZODone HCL 100 MG TAB PO SCH (21:51)
[2017-03-02 04:12] VITALS: TEMP 97.6
[2017-03-02] MEDS ORDERED: LEVOTHYROXINE 100 MCG TAB PO SCH (06:30)
[2017-03-02 08:43] VITALS: BP 119/65; PULSE 77; RESP 18
[2017-03-02] MEDS: METOPROLOL SUCCINATE (ER) 25 MG TAB.ER.24H PO SCH (08:52)
[2017-03-02] MEDS: MORPHINE SULFATE ER 15 MG TABLET PO SCH (08:54)
[2017-03-02] MEDS ORDERED: ARIPiprazole 2 MG TAB PO SCH (09:00)
--- NOTE | 2017-03-02 12:58 | P.DS ---
Providers Date of admission: 02/28/17 18:47 Attending physician: Carine Miller Consults: 03/01/17 16:54 Consult Physician Stat Consulting Provider: Ray Rivero Consult Reason/Comments: Abdominal Pain, Diarrhea Do you want consulting provider notified?: Yes Primary care [facility] [place] Hospital Course: This is a 66-year-old female who was recently admitted to the hospital with epigastric pain. Patient at that time underwent an upper endoscopy was noted to have small hiatal hernia and gastritis. Patient states that her pain has been non-resolving for the last 2 months. States also that she has had watery loose stools for the last 2 months. Patient has a diagnosis of IBS. Patient states her her last colonoscopy was over 5 years ago States that the she has tried Imodium, Questran and other medications to decrease her diarrhea however nothing has helped Patient states that she has been feeling weak states that her pain is severe Pain in the abdomen as epigastric states that is on the top of her abdomen is worsened with any movement including sitting up or making a lateral movements across the chest Denies having any fevers headaches blurry vision nausea vomiting 03/02/2017 Patient was seen by her GI specialist. Patient apparently was not reasonable and answer questions I walk into the room to ask about her progress patient states that the that she is annoyed at the fact that I did not want to give her medications and I'll help her appropriately This was regarding the refusing of IV Dilaudid as this is a chronic pain issue Patient at the time of my evaluation was resting comfortably however stated that her pain was 10 out of 10 Patient states that she has had loose stools about 3 and states that she cannot live like this The GI specialist offered different medications for the above-described condition Physical exam Gen. appearance oriented 3 in no distress, obese Neck is supple no JVD Lungs good air entry clear to auscultation no rhonchi or wheezing Heart S1-S2 heard regular rate and rhythm no murmurs appreciated Abdomen reproducible pain on her abdominal wall superiorly no palpation of deep palpation consistent with a abdominal wall trauma or panniculitis Neurologically cranial nerves II-12 grossly intact no focal motor or sensory deficits noted Skin no abnormalities appreciated Assessment and Plan Plan: Abdominal pain this is likely due to abdominal muscle tear Chronic watery diarrhea in a patient with a history of IBS. Hiatal hernia Neuropathy Obesity Essential hypertension Dyslipidemia Patient does take Bentyl at home we'll prescribe the patient Lomotil and will be discharged home This is more of a chronic issue and needs to be followed up outpatient There is some difficulty in communicating with the patient as she refuses to understand the different etiologies of of her problem Plan - Discharge Summary New Discharge Prescriptions: New Diphenox-Atrop 2.5-0.025 mg [Lomotil] 1 each PO Q6HR PRN #15 tab PRN Reason: Diarrhea Continue Metoprolol Succinate [Toprol XL] 25 mg PO DAILY traZODone HCL 150 mg PO HS Nitroglycerin Sl Tabs [Nitrostat] 0.4 mg SUBLINGUAL Q5M PRN #0 tab PRN Reason: Chest Pain Levothyroxine Sodium [Synthroid] 100 mcg PO DAILY Albuterol Nebulized [Ventolin Nebulized] 2.5 mg INHALATION RT-QID PRN PRN Reason: Shortness Of Breath Pyridoxine [Vitamin B-6] 50 mg PO DAILY ARIPiprazole [Abilify] 2 mg PO DAILY Dicyclomine [Bentyl] 10 mg PO QID PRN cap PRN Reason: Abdominal Distention Melatonin 6 mg PO HS tab Pantoprazole [Protonix] 40 mg PO AC-BID tab Sucralfate [Carafate] 1 gm PO ACHS tab HYDROcodone/APAP 10-325MG [[place] 10-325] 1 tab PO Q6H PRN #20 PRN Reason: Pain Loperamide [Imodium] 2 mg PO Q6H PRN #1 cap PRN Reason: Diarrhea Diazepam [Valium] 2 mg PO QID PRN PRN Reason: Agitation Or Acute Anxiety Discharge Medication List Metoprolol Succinate [Toprol XL] 25 mg PO DAILY 01/25/15 [History] traZODone HCL 150 mg PO HS 11/23/15 [History] Nitroglycerin Sl Tabs [Nitrostat] 0.4 mg SUBLINGUAL Q5M PRN #0 tab 10/14/16 [Rx] Albuterol Nebulized [Ventolin Nebulized] 2.5 mg INHALATION RT-QID PRN 02/01/17 [ History] Levothyroxine Sodium [Synthroid] 100 mcg PO DAILY 02/01/17 [History] Pyridoxine [Vitamin B-6] 50 mg PO DAILY 02/01/17 [History] ARIPiprazole [Abilify] 2 mg PO DAILY 02/05/17 [History] Dicyclomine [Bentyl] 10 mg PO QID PRN cap 02/09/17 [Rx] HYDROcodone/APAP 10-325MG [[place] 10-325] 1 tab PO Q6H PRN #20 02/09/17 [Rx] Loperamide [Imodium] 2 mg PO Q6H PRN #1 cap 02/09/17 [Rx] Melatonin 6 mg PO HS tab 02/09/17 [Rx] Pantoprazole [Protonix] 40 mg PO AC-BID tab 02/09/17 [Rx] Sucralfate [Carafate] 1 gm PO ACHS tab 02/09/17 [Rx] Diazepam [Valium] 2 mg PO QID PRN 02/28/17 [History] Diphenox-Atrop 2.5-0.025 mg [Lomotil] 1 each PO Q6HR PRN #15 tab 03/02/17 [Rx] Follow up Appointment(s)/Referral(s): Ray Rivero MD [STAFF PHYSICIAN] - 1 Week Jorje Domingo MD [Primary Care Provider] - 1-2 days Discharge Disposition: HOME SELF-CARE
[2017-03-02] MEDS ORDERED: DICYCLOMINE 20 MG TAB PO SCH (13:00)
--- NOTE | 2017-03-02 16:56 | CONS ---
DATE OF CONSULTATION: 03/01/2017 REASON FOR CONSULTATION: Abdominal pain and diarrhea. HISTORY OF PRESENT ILLNESS: The patient is a 66-year-old white female with a long-standing history of irritable bowel syndrome, admitted to the hospital with severe abdominal pain and diarrhea for the last 2 months' duration. The patient says that she has bowel movements anywhere from 10 to 15 a day which are loose to watery in consistency, but no blood or mucus in the stool. She complains of epigastric discomfort associated with ( ) regurgitation, heartburn, some nausea and vomiting. She was admitted 3 weeks ago to the hospital for similar symptoms. She had an upper endoscopy done by me that showed evidence of mild gastritis and small hiatal hernia. Last colonoscopy apparently was about 4 or 5 years and, according to the patient, was within normal limits. She was subsequently diagnosed with irritable bowel syndrome and was treated on an outpatient basis with Imodium, Bentyl, Lomotil, Questran, and patient says that none of these medications help her. She is quite frustrated and very upset with the ongoing symptoms. She denies any weight loss. Past medical history is significant for: 1. Congestive heart failure. 2. Coronary artery disease, status post ME in the past. 3. Osteoarthritis. 4. Hypothyroidism. 5. Chronic back pain. PAST SURGICAL HISTORY: 1. Bladder surgery. 2. Adenoidectomy. 3. Cholecystectomy. 4. Cardiac catheterization. 5. Hysterectomy. 6. Right knee replacement. 7. Right arthroscopy. 8. Bladder suspension. Medications at home include: 1. Toprol. 2. Ventolin. 3. Trazodone. 4. Synthroid. 5. Vitamin B6. 6. Abilify. 7. Valium. ALLERGIES: 1. ( ) 2. TORADOL. 3. NSAIDS. 4. COMPAZINE. SOCIAL HISTORY: Non-smoker. No alcohol use. FAMILY HISTORY: Father had CVA, hypertension. Mother had ME. REVIEW OF SYSTEMS: CARDIOPULMONARY: No chest pain, shortness of breath. GENITOURINARY: No dysuria or hematuria. MUSCULOSKELETAL: Chronic back pain. NEUROLOGY: Unremarkable. PSYCHIATRY: Anxiety, depression. ENT/VISION: Unremarkable. CONSTITUTIONAL: No recent weight loss. No fever, chills, night sweats. HEMATOLOGY: Unremarkable. ENDOCRINE: Unremarkable. On physical examination, blood pressure 107/59, pulse 56, temperature 97.6. HEENT EXAMINATION: Unremarkable. Conjunctivae are pink, sclerae anicteric. Oral cavity with no lesions. NECK: No JVD or lymph node enlargement. Chest was clear to auscultation. Abdomen is very obese. Tender in the epigastric area as well as in the lower abdomen. EXTREMITIES: No pedal edema. SKIN: No rashes. NEURO: Alert and oriented x3. No focal deficits. LABS: WBC 7, hemoglobin 12.7, platelet 304. Basic metabolic panel is within normal limits. Amylase and lipase are normal. ALT, AST, total bilirubin and alkaline phosphatase are normal. Urine analysis is negative. C difficile toxin is negative. IMPRESSION: This is a patient with long-standing history of irritable bowel syndrome, admitted to the hospital with ongoing severe abdominal pain with worsening diarrhea, bowel movements anywhere from 10 to 15 a day, loose to watery in consistency, for the last 2 months' duration. She was treated with various anti-motility agents on an outpatient basis, including Imodium, Bentyl, Lomotil, with no help. She has also tried Questran 1 packet 4 times daily, with no help. At present, since being in the hospital, she is getting Imodium every 6 hours and Lomotil every 6 hours as needed. Still very upset that no medications are working at this time. RECOMMENDATIONS: 1. Will start her on Bentyl 20 mg 4 times daily and continue Lomotil for now. 2. If there is no help, I will add Questran 1 packet 4 times daily. 3. Start her on soft diet. 4. Will continue to follow the patient closely during her hospital stay. Thank you for this consultation. SAL
== END 2017-03-02 13:22 | disposition home or self-care (01) ==
LOC: EC 15:13 → 3OBS 18:47
PROVIDERS: ADMIT Hospitalist; ATTEND Hospitalist
DX: K58.0 Irritable bowel syndrome with diarrhea (principal); M19.90 Unspecified osteoarthritis, unspecified site; I50.9 Heart failure, unspecified; I11.0 Hypertensive heart disease with heart failure; I25.2 Old myocardial infarction; G89.29 Other chronic pain; E03.9 Hypothyroidism, unspecified; F32.9 Major depressive disorder, single episode, unspecified; K44.9 Diaphragmatic hernia without obstruction or gangrene; F41.9 Anxiety disorder, unspecified; G62.9 Polyneuropathy, unspecified; E78.5 Hyperlipidemia, unspecified; E66.9 Obesity, unspecified; I25.10 Atherosclerotic heart disease of native coronary artery without angina pectoris; M54.9 Dorsalgia, unspecified; Z82.3 Family history of stroke; Z79.899 Other long term (current) drug therapy; Z88.6 Allergy status to analgesic agent; Z88.5 Allergy status to narcotic agent; Z88.8 Allergy status to other drugs, medicaments and biological substances; Z87.442 Personal history of urinary calculi; Z82.49 Family history of ischemic heart disease and other diseases of the circulatory system; Z85.9 Personal history of malignant neoplasm, unspecified; Z68.44 Body mass index [BMI] 60.0-69.9, adult; Z87.19 Personal history of other diseases of the digestive system
CPT/HCPCS: 96361 ×2; 96376 ×2; 96372; 96374; 96375; 99285; 36415; 80053; 82150; 83690; 85025; 81003; 87324; 74000; G0378 ×3; J0500; J2405 ×2; J1170 ×2

== ENCOUNTER 2017-11-10 05:15 | Inpatient (IN) | payer MEDICARE, OTHER ==
[2017-11-10] MEDS ORDERED: methylPREDNISolone SOD SUCCI 125 MG/2 ML VIAL IV STA (05:48)
[2017-11-10] MEDS ORDERED: SODIUM CHLORIDE 0.9% 1,000 ML IV STA (05:48)
[2017-11-10] MEDS ORDERED: MORPHINE SULFATE 4MG/4ML SYRG IVP STA ×2 (05:48→08:00)
[2017-11-10] MEDS ORDERED: ONDANSETRON 4 MG/2 ML VIAL IVP STA (05:48)
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
[2017-11-10 06:26] LABS: Basophils % (A) 0 %; Eosinophils # (A) 0.1 k/uL (0-0.7); Eosinophils % (A) 2 %; HCT 32.8 % (34.0-46.0); HGB 10.4 gm/dL (11.4-16.0); Hypochromasia Slight; Lymphocytes % (A) 22 %; MCH 26.6 pg (25.0-35.0); MCHC 31.7 g/dL (31.0-37.0); MCV 83.8 fL (80.0-100.0); Mean Platelet Volume 6.8; Monocytes # (A) 0.2 k/uL (0-1.0); Monocytes % (A) 4 %; Neutrophils # (A) 3.2 k/uL (1.3-7.7); Neutrophils % (A) 70 %; Platelet Count 250 k/uL (150-450); RBC 3.91 m/uL (3.80-5.40); RDW 13.8 % (11.5-15.5); WBC 4.6 k/uL (3.8-10.6)
--- NOTE | 2017-11-10 06:32 | XR ---
EXAM: XR Chest, 2 Views CLINICAL HISTORY: ITS.REASON XR Reason: difficulty breathing TECHNIQUE: Frontal and lateral views of the chest. COMPARISON: 06/29/17 FINDINGS: Lungs: Mild interstitial prominence. Lower lobe airspace disease, left more prominent than right. Pleural space: Unremarkable. No pneumothorax. Heart: Mild cardiomegaly is present with pulmonary venous congestion. Mediastinum: Stable appearance with uncoiled configuration of the aorta. Bones/joints: Degenerative disc changes with disc space height loss and osteophytosis. IMPRESSION: 1. Cardiomegaly with central venous prominence. Correlate for congestive failure. Mild interstitial prominence may be related to low lung volume though component of interstitial edema not excluded. 2. Lower lobe airspace disease favors atelectasis though nonspecific. Alveolar edema or pneumonia also in the differential.
[2017-11-10] MEDS ORDERED: IPRATROPIUM-ALBUTEROL 3 ML NEB INHALATION STA (06:34)
[2017-11-10 06:36] LABS: ALT 41 U/L (9-52); AST 26 U/L (14-36); Albumin 3.4 g/dL (3.5-5.0); Alkaline Phosphatase 181 U/L (38-126); Anion Gap 11 mmol/L; Blood Urea Nitrogen 7 mg/dL (7-17); Calcium 8.4 mg/dL (8.4-10.2); Carbon Dioxide 25 mmol/L (22-30); Chloride 106 mmol/L (98-107); Glucose 123 mg/dL (74-99); Potassium 3.8 mmol/L (3.5-5.1); Sodium 142 mmol/L (137-145); Total Bilirubin 0.3 mg/dL (0.2-1.3); Total Protein 5.9 g/dL (6.3-8.2)
[2017-11-10 06:40] LABS: D-Dimer 1.39 mg/L FEU (<0.60); Partial Thromboplastin Time 24.5 sec (22.0-30.0); Prothrombin Time 9.9 sec (9.0-12.0)
[2017-11-10] MEDS ORDERED: RX INFO: IV CONTRAST WAS GIVEN 1 EACH MISC MISCELLANE PRN (06:43)
[2017-11-10 06:55] LABS: Creatine Kinase 46 U/L (30-135)
[2017-11-10 07:08] LABS: Creatine Kinase MB 0.5 ng/mL (0.0-2.4); Troponin I <0.012 ng/mL (0.000-0.034)
[2017-11-10] MEDS: SODIUM CHLORIDE 0.9% 1,000 ML IV SCH (08:37)
[2017-11-10] MEDS ORDERED: AZITHROMYCIN 500 MG in SODIUM CHLORIDE 0.9% 250 ML IVPB SCH (09:00)
[2017-11-10] MEDS ORDERED: cefTRIAXone IN SWFI 1,000 MG/10 ML SYRINGE IVP SCH (09:00)
[2017-11-10] MEDS ORDERED: ALBUTEROL NEBULIZED 2.5 MG/3 ML INHALATION PRN (09:39)
[2017-11-10] MEDS ORDERED: PNEUMONIA PROTOCOL UTILIZED 1 EACH MISC PO PRN (09:39)
[2017-11-10] MEDS ORDERED: MORPHINE ORAL SOLN 10 MG/5 ML CUP PO PRN (09:42)
[2017-11-10] MEDS ORDERED: ALPRAZolam 0.25 MG TAB PO PRN (09:42)
[2017-11-10] MEDS ORDERED: NALOXONE 0.4 MG/ML 1 ML VIAL IV PRN (09:42)
[2017-11-10] MEDS ORDERED: ACETAMINOPHEN TAB 325 MG TAB PO PRN (09:42)
[2017-11-10] MEDS ORDERED: MELATONIN 3 MG TABLET PO PRN (09:42)
[2017-11-10] MEDS ORDERED: FUROSEMIDE 40 MG TAB PO PRN (10:17)
[2017-11-10] MEDS ORDERED: DIAZEPAM 2 MG TAB PO PRN (10:17)
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
[2017-11-10] MEDS: OSELTAMIVIR 75 MG CAP PO SCH ×2 (12:08→20:28)
[2017-11-10] MEDS: methylPREDNISolone SOD SUCCI 125 MG/2 ML VIAL IV SCH ×3 (12:09→23:46)
[2017-11-10 12:40] LABS: Glucose,Whole Blood 166 mg/dL (75-99)
[2017-11-10] MEDS: oxyCODONE-APAP 7.5-325MG 1 EACH TAB PO PRN ×3 (14:15→23:29)
[2017-11-10 14:45] VITALS: BMI 58.5
[2017-11-10] MEDS: IPRATROPIUM-ALBUTEROL 3 ML NEB INHALATION SCH ×2 (15:20→19:19)
[2017-11-10] MEDS: MORPHINE ORAL SOLN 10 MG/5 ML CUP PO PRN ×2 (16:20→20:25)
[2017-11-10] MEDS: PIPERACILLIN-TAZOBACTAM 3.375 GM in DEXTROSE/WATER 1 50ML.BAG IVPB SCH ×2 (16:20→23:29)
[2017-11-10 16:29] LABS: Hemoglobin A1C 5.1 % (4.0-6.0)
[2017-11-10 17:18] LABS: Glucose,Whole Blood 211 mg/dL (75-99)
[2017-11-10] MEDS: PANTOPRAZOLE 40 MG TABLET PO SCH (18:40)
[2017-11-10] MEDS: PRAMIPEXOLE 0.25 MG TAB PO SCH (20:26)
[2017-11-10] MEDS: MELATONIN 3 MG TABLET PO SCH (20:26)
[2017-11-10 21:05] LABS: Glucose,Whole Blood 183 mg/dL (75-99)
[2017-11-11] MEDS: SODIUM CHLORIDE 0.9% 1,000 ML IV SCH ×3 (00:13→20:39)
[2017-11-11] MEDS: MORPHINE ORAL SOLN 10 MG/5 ML CUP PO PRN ×5 (02:44→23:13)
[2017-11-11] MEDS: IPRATROPIUM-ALBUTEROL 3 ML NEB INHALATION SCH ×4 (03:57→19:30)
[2017-11-11] MEDS: LEVOTHYROXINE 100 MCG TAB PO SCH (05:48)
[2017-11-11] MEDS: methylPREDNISolone SOD SUCCI 125 MG/2 ML VIAL IV SCH ×4 (05:48→23:10)
[2017-11-11] MEDS: oxyCODONE-APAP 7.5-325MG 1 EACH TAB PO PRN ×4 (05:53→20:37)
[2017-11-11 07:49] LABS: Glucose,Whole Blood 153 mg/dL (75-99)
[2017-11-11] MEDS: ENOXAPARIN 40 MG/0.4 ML SYRINGE SQ SCH (08:10)
[2017-11-11] MEDS: PANTOPRAZOLE 40 MG TABLET PO SCH ×2 (08:10→16:49)
[2017-11-11] MEDS: OSELTAMIVIR 75 MG CAP PO SCH ×2 (08:10→20:37)
[2017-11-11] MEDS: PIPERACILLIN-TAZOBACTAM 3.375 GM in DEXTROSE/WATER 1 50ML.BAG IVPB SCH (08:10)
--- NOTE | 2017-11-11 08:54 | XR ---
EXAMINATION TYPE: XR chest 2V DATE OF EXAM: 11/11/2017 COMPARISON: 11/10/2017 INDICATION: Pneumonia TECHNIQUE: Frontal and lateral views of the chest are obtained. FINDINGS: The heart size is normal. The pulmonary vasculature is normal. The lungs are clear. Previous left lower lobe infiltrate is resolved. IMPRESSION: 1. No acute pulmonary process.
[2017-11-11 09:04] LABS: ALT 33 U/L (9-52); AST 25 U/L (14-36); Albumin 3.8 g/dL (3.5-5.0); Alkaline Phosphatase 161 U/L (38-126); Anion Gap 15 mmol/L; Blood Urea Nitrogen 11 mg/dL (7-17); Calcium 8.8 mg/dL (8.4-10.2); Carbon Dioxide 22 mmol/L (22-30); Chloride 106 mmol/L (98-107); Glucose 152 mg/dL (74-99); Magnesium 1.9 mg/dL (1.6-2.3); Phosphorus 2.6 mg/dL (2.5-4.5); Potassium 4.3 mmol/L (3.5-5.1); Sodium 143 mmol/L (137-145); Total Bilirubin 0.2 mg/dL (0.2-1.3); Total Protein 6.5 g/dL (6.3-8.2)
[2017-11-11] MEDS ORDERED: LEVOFLOXACIN 750MG-D5W PMX 750 MG in DEXTROSE/WATER 1 150ML.BAG IVPB SCH (09:41)
[2017-11-11 11:52] LABS: Glucose,Whole Blood 177 mg/dL (75-99)
[2017-11-11 12:14] LABS: HCT 36.3 % (34.0-46.0); Hypochromasia Moderate; MCH 26.1 pg (25.0-35.0); MCHC 30.3 g/dL (31.0-37.0); MCV 86.1 fL (80.0-100.0); Mean Platelet Volume 7.4; Platelet Count 306 k/uL (150-450); RBC 4.22 m/uL (3.80-5.40); RDW 13.6 % (11.5-15.5); WBC 3.7 k/uL (3.8-10.6)
[2017-11-11] MEDS ORDERED: BENZONATATE 100 MG CAP PO PRN (12:27)
--- NOTE | 2017-11-11 15:57 | P.PN ---
Subjective Progress Note Date: 11/11/17 Principal diagnosis: Shortness of breath and cough Patient is a 67-year-old female with a past medical history of COPD, congestive heart failure, morbid obesity, arthritis, and multiple other comorbid conditions who presented to the ER via EMS with complaints of shortness of breath. In the ER she underwent an extensive evaluation. She was slightly hypertensive on arrival with a blood pressure 163/77. Her laboratory analysis showed slightly low hemoglobin at 10.4. Her labs were otherwise unremarkable. She did come back influenza A positive. Chest x-ray showed bibasilar infiltrate which on review by myself appears more left sided and radiology felt likely atelectasis . She did have a positive d-dimer at 1.39. However she has a chronically positive d-dimer and was recently at [facility] less than one week ago where she underwent an extensive evaluation for possible DVT and clot all which came back negative. Patient does not feel as though she has a blood clot does not want a CT or VQ scan secondary to not being able to lay flat, discussed risk vs benefits including , chronic shortness of breath, and heart strain. She still did not want to proceed with further testing. However patient was alert and oriented 3 with clear thought process she just has gone through this multiple times. her Wells was 0 and therefore this seems reasonable. She was admitted to the general medical floor for further monitoring and care. she did struggle with pain control and her morphine and Percocet dose was escalated. On the morning of 11/11 and a repeat chest x-ray was obtained which showed no acute process. She has been afebrile and white blood cell was decreased at 3.7. Patient seen and examined at bedside. She states she is still coughing that is nonproductive. She states she feels like she is choking. She also complains of shortness. She has chest tightness still with cough but no overt chest pain. Her diarrhea is resolved. We discussed that she is here as observation status she has remained afebrile her white blood cell count was never elevated. Her chest x-ray is negative. She was positive for influenza she is frustrated at being observation again and she was recently observation twice at [facility] though this was for leg pain. we did discuss that if she continues on her current course she will be discharged tomorrow. She again expresses full social stressors including lack of financial means, inability to obtain rides, inability to adequately grocery shop , and inability to get to doctor appointments. We again discussed Meals on Wheels, Medicaid ride, and food pantry. She again states she does not want meals on wheels meals or food pantry, as this is not adequate food. She says she has exhausted all of her options and no one can help her. I discussed seeing if we can obtain a wheelchair for her from her insurance company. She states that she lives in a trailer and was too small for her wheelchair and she can't use it. She then states she has a wheelchair she could not get up. I suggested this so she could use a wheelchair van for rides to and from appointments. I brought up the fact that stress can negatively impact your health status, and that some of what she is going through may be secondary to stress and its effects on your immune system. She became very upset about this stating that someone told her that before and she ended up in the psychiatry unit but then required to have her gallbladder out. She then started crying. She did become upset and started yelling. She then stated it is not because of me but that she is just frustrated of always being admitted as observation going home 2 days later and then having to come back to the hospital again. However it appears that her recent hospitalizations are rather unrelated. Objective - Vital Signs Vital signs: Vital Signs Temp 98.2 F 11/11/17 15:00 Pulse 69 11/11/17 15:00 Resp 16 11/11/17 15:00 BP 136/76 11/11/17 15:00 Pulse Ox 95 11/11/17 15:00 Intake & Output 11/10/17 11/11/17 11/11/17 18:59 06:59 18:59 Intake Total 450 1500 360 Balance 450 1500 360 Weight 145.15 kg 145.15 kg Intake: Intake, IV Titration 450 400 360 Amount Levofloxacin 750Mg-D5w 150 Pmx 750 mg In Dextrose/ Water 1 150ml.bag @ 100 mls/hr IVPB Q24HR [facility] Rx# :[id number] Piperacillin-Tazobactam 3 100 50 .375 gm In Dextrose/Water 1 50ml.bag @ 12.5 mls/hr IVPB Q8HR [facility] Rx#: [id number] Sodium Chloride 0.9% 1, 300 000 ml @ 100 mls/hr IV . Q10H STA Rx#:[id number] Sodium Chloride 0.9% 1, 450 160 000 ml @ 75 mls/hr IV . [id number] [facility] Rx#:[id number] Oral 1100 Other: Voiding Method Toilet Toilet Toilet # Voids 2 2 2 - Exam General: non toxic, no distress, appears at stated age, morbid obesity Derm: warm, dry Head: atraumatic, normocephalic, symmetric Eyes: EOMI, no lid lag, anicteric sclera Mouth: no lip lesion, mucus membranes moist Cardiovascular: S1S2 reg, no murmur, positive posterior tibial pulse bilateral, Lungs: decreased breath sounds bilaterally, no wheeze, no rhonchi, no rales , no accessory muscle use Abdominal: soft, nontender to palpation, no guarding, no appreciable organomegaly Ext: no gross muscle atrophy, trace edema bilateral lower extremities, no contractures Neuro: CN II-XI grossly intact, no focal neuro deficits Psych: Alert, oriented, upset, crying - Labs CBC & Chem 7: 11/11/17 07:52 11/11/17 07:52 Labs: Abnormal Lab Results - Last 24 Hours (Table) 11/10/17 11/10/17 11/11/17 Range/Units 17:17 20:45 07:48 WBC (3.8-10.6) k/uL Hgb (11.4-16.0) gm/dL MCHC (31.0-37.0) g/dL Glucose (74-99) mg/dL POC Glucose (mg/dL) 211 H 183 H 153 H (75-99) mg/dL Alkaline Phosphatase (38-126) U/L 11/11/17 11/11/17 11/11/17 Range/Units 07:52 07:52 11:51 WBC 3.7 L (3.8-10.6) k/uL Hgb 11.0 L (11.4-16.0) gm/dL MCHC 30.3 L (31.0-37.0) g/dL Glucose 152 H (74-99) mg/dL POC Glucose (mg/dL) 177 H (75-99) mg/dL Alkaline Phosphatase 161 H (38-126) U/L Microbiology - Last 24 Hours (Table) 11/10/17 05:45 Blood Culture - Preliminary Blood No Growth after 24 hours Assessment and Plan Assessment: acute exacerbation of COPD -Pneumonia has been ruled out as repeat chest x-ray which provides better views shows no acute process on radiology's assessment and I am in agreement with this. I have personally reviewed chest x-ray and there appears to be no acute process at this point in time. A pneumonia would not have cleared this quickly. -steroids -Bronchodilators -Levaquin -Tessalon Perles to help with cough -Mucinex Influenza A positive -day 2 of 5 of Tamiflu, placed on this secondary to COPD HTN, now controlled -continue with as needed Lasix, not on additional medications at home Morbid obesity BMI 58.5 - structed outpatient weight loss Chronically elevated D-dimer - Patients D-dimer has been elevated every time it has been measured here -Her well's criteria is 0 as her surgery is 6 weeks out - Patient also refusing CTA or VQ scan -Doubt deep vein thrombosis or pulmonary emboli -Also had negative workup for DVT at [facility] one week ago Chronic diastolic congestive heart failure with ejection fraction 55-60% -Continue home Lasix -Not chronically on beta karol or RENETTA inhibitor -Monitor fluid status closely Acute on chronic low back pain and left knee pain -continue current Percocet dose -Morphine for breakthrough pain Social stressor - No transportation - limited financial means as spouse passed - refusing meals on wheels/ medicaid rides -Has met with social work and states she cannot help normocytic anemia -Likely related to recent knee surgery -Repeat CBC as outpatient in 4-6 weeks Diarrhea, resolved Chronic: Hypothyroidism Arthritis GERD IBS DVT prophylaxis: Lovenox Discussed with: Patient, floor nursing Anticipated discharge:[address]: home with home health A total of 35 minutes was spent on the care of this complex patient more than 50 % of the time was spent in counseling and care coordination.
[2017-11-11 17:19] LABS: Glucose,Whole Blood 166 mg/dL (75-99)
[2017-11-11 20:23] LABS: Glucose,Whole Blood 174 mg/dL (75-99)
[2017-11-11] MEDS: MELATONIN 3 MG TABLET PO SCH (20:37)
[2017-11-11] MEDS: PRAMIPEXOLE 0.25 MG TAB PO SCH (20:39)
[2017-11-11] MEDS: guaiFENesin 600 MG TABLET.ER PO SCH (20:43)
[2017-11-12] MEDS: oxyCODONE-APAP 7.5-325MG 1 EACH TAB PO PRN ×2 (01:33→07:37)
[2017-11-12] MEDS: IPRATROPIUM-ALBUTEROL 3 ML NEB INHALATION SCH ×4 (02:18→19:45)
[2017-11-12] MEDS: MORPHINE ORAL SOLN 10 MG/5 ML CUP PO PRN ×3 (04:36→19:28)
[2017-11-12] MEDS: methylPREDNISolone SOD SUCCI 125 MG/2 ML VIAL IV SCH ×3 (06:11→23:17)
[2017-11-12] MEDS: LEVOTHYROXINE 100 MCG TAB PO SCH (06:15)
[2017-11-12] MEDS: PANTOPRAZOLE 40 MG TABLET PO SCH ×2 (07:37→16:41)
[2017-11-12] MEDS: ENOXAPARIN 40 MG/0.4 ML SYRINGE SQ SCH (08:34)
[2017-11-12] MEDS: OSELTAMIVIR 75 MG CAP PO SCH ×2 (08:35→21:14)
[2017-11-12] MEDS: LEVOFLOXACIN 750 MG TAB PO SCH (08:35)
[2017-11-12] MEDS: guaiFENesin 600 MG TABLET.ER PO SCH ×2 (08:35→21:14)
--- NOTE | 2017-11-12 10:41 | P.PN ---
Subjective Progress Note Date: 11/12/17 Principal diagnosis: Shortness of breath and cough Patient is a 67-year-old female with a past medical history of COPD, congestive heart failure, morbid obesity, arthritis, and multiple other comorbid conditions who presented to the ER via EMS with complaints of shortness of breath. In the ER she underwent an extensive evaluation. She was slightly hypertensive on arrival with a blood pressure 163/77. Her laboratory analysis showed slightly low hemoglobin at 10.4. Her labs were otherwise unremarkable. She did come back influenza A positive. Chest x-ray showed bibasilar infiltrate which on review by myself appears more left sided and radiology felt likely atelectasis . She did have a positive d-dimer at 1.39. However she has a chronically positive d-dimer and was recently at [place] less than one week ago where she underwent an extensive evaluation for possible DVT and clot all which came back negative. Patient does not feel as though she has a blood clot does not want a CT or VQ scan secondary to not being able to lay flat, discussed risk vs benefits including , chronic shortness of breath, and heart strain. She still did not want to proceed with further testing. However patient was alert and oriented 3 with clear thought process she just has gone through this multiple times. Her Wells was 0 and therefore this seems reasonable. She was admitted to the general medical floor for further monitoring and care. She did struggle with pain control and her morphine and Percocet dose was escalated. On the morning of 11/11 a repeat chest x-ray was obtained which showed no acute process. She has been afebrile and white blood cell was decreased at 3.7. She continued to struggle with SOB and cough, she is winded with minimal exertion. Patient seen and examined at bedside. States that she is wheezing more today. Cough is less. Had a loose stool X 1. No chest pain. minimal nausea. Still worried about going home and she is talking to . Objective - Vital Signs Vital signs: Vital Signs Temp 97.7 F 11/12/17 07:25 Pulse 72 11/12/17 09:13 Resp 18 11/12/17 07:45 BP 160/95 11/12/17 07:25 Pulse Ox 96 11/12/17 07:25 Intake & Output 11/11/17 11/12/17 11/12/17 18:59 06:59 18:59 Intake Total 360 2740 240 Balance 360 2740 240 Weight 145.15 kg 145.15 kg Intake: Intake, IV Titration 360 950 Amount Levofloxacin 750Mg-D5w 150 Pmx 750 mg In Dextrose/ Water 1 150ml.bag @ 100 mls/hr IVPB Q24HR BRETT Rx# :[id number] Piperacillin-Tazobactam 3 50 50 .375 gm In Dextrose/Water 1 50ml.bag @ 12.5 mls/hr IVPB Q8HR BRETT Rx#: [id number] Sodium Chloride 0.9% 1, 160 900 000 ml @ 75 mls/hr IV . [id number] BRETT Rx#:[id number] Oral 1790 240 Other: Voiding Method Toilet Toilet Toilet Diaper # Voids 2 3 1 - Exam General: non toxic, no distress, appears at stated age, morbid obesity Derm: warm, dry Head: atraumatic, normocephalic, symmetric Eyes: EOMI, no lid lag, anicteric sclera Mouth: no lip lesion, mucus membranes moist Cardiovascular: S1S2 reg, no murmur, positive posterior tibial pulse bilateral, Lungs: minimal wheeze right base, no rhonchi, no rales , no accessory muscle use Abdominal: soft, nontender to palpation, no guarding, no appreciable organomegaly Ext: no gross muscle atrophy, trace edema bilateral lower extremities, no contractures Neuro: CN II-XI grossly intact, no focal neuro deficits Psych: Alert, oriented, upset, crying - Labs CBC & Chem 7: 11/11/17 07:52 11/11/17 07:52 Labs: Abnormal Lab Results - Last 24 Hours (Table) 11/11/17 11/11/17 11/11/17 Range/Units 07:52 11:51 17:15 WBC 3.7 L (3.8-10.6) k/uL Hgb 11.0 L (11.4-16.0) gm/dL MCHC 30.3 L (31.0-37.0) g/dL POC Glucose (mg/dL) 177 H 166 H (75-99) mg/dL 11/11/17 Range/Units 20:21 WBC (3.8-10.6) k/uL Hgb (11.4-16.0) gm/dL MCHC (31.0-37.0) g/dL POC Glucose (mg/dL) 174 H (75-99) mg/dL Microbiology - Last 24 Hours (Table) 11/10/17 05:45 Blood Culture - Preliminary Blood No Growth after 48 hours Assessment and Plan Assessment: acute exacerbation of COPD -steroids decrease, some swelling due to steroids, Lasix IVP X 1 -Bronchodilators -Levaquin -Tessalon Perles to help with cough -Mucinex Influenza A positive -day 3 of 5 of Tamiflu, placed on this secondary to COPD HTN, now controlled -continue with as needed Lasix, not on additional medications at home Morbid obesity BMI 58.5 - structured outpatient weight loss Chronically elevated D-dimer - Patients D-dimer has been elevated every time it has been measured here - Her well's criteria is 0 as her surgery is 6 weeks out - Patient also refusing CTA or VQ scan - Doubt deep vein thrombosis or pulmonary emboli - Also had negative workup for DVT at [place] one week ago Chronic diastolic congestive heart failure with ejection fraction 55-60% -Continue home Lasix -Not chronically on beta karol or RENETTA inhibitor -Monitor fluid status closely Acute on chronic low back pain and left knee pain -Increase percocet dose, and decrease frequency of morphine to help with pain. Social stressor - No transportation - limited financial means as spouse passed - refusing meals on wheels/ medicaid rides -Has met with social work and states she cannot help normocytic anemia -Likely related to recent knee surgery -Repeat CBC as outpatient in 4-6 weeks Diarrhea, resolved Chronic: Hypothyroidism Arthritis GERD IBS DVT prophylaxis: Lovenox Discussed with: Patient, floor nursing Anticipated discharge:[address]: home with home health A total of 35 minutes was spent on the care of this complex patient more than 50 % of the time was spent in counseling and care coordination.
[2017-11-12] MEDS ORDERED: FUROSEMIDE 10 MG/ML 4 ML VIAL IV STA (10:43)
[2017-11-12] MEDS: SODIUM CHLORIDE 0.9% 1,000 ML IV SCH ×2 (10:48→10:49)
[2017-11-12] MEDS: oxyCODONE-APAP 10-325MG 1 EACH TAB PO PRN ×3 (12:27→21:10)
[2017-11-12] MEDS: PRAMIPEXOLE 0.25 MG TAB PO SCH (21:14)
[2017-11-12] MEDS: MELATONIN 3 MG TABLET PO SCH (21:14)
[2017-11-12] MEDS: LACTOBACILLUS ACIDOPH & BULGAR 1 EACH PACKET PO SCH (21:15)
[2017-11-13] MEDS: MORPHINE ORAL SOLN 10 MG/5 ML CUP PO PRN ×4 (02:03→21:23)
[2017-11-13] MEDS: oxyCODONE-APAP 10-325MG 1 EACH TAB PO PRN ×4 (05:16→22:06)
[2017-11-13] MEDS: LEVOTHYROXINE 100 MCG TAB PO SCH (05:38)
[2017-11-13 07:39] LABS: HCT 34.8 % (34.0-46.0); HGB 11.2 gm/dL (11.4-16.0); Hypochromasia Slight; MCHC 32.1 g/dL (31.0-37.0); MCV 84.1 fL (80.0-100.0); Mean Platelet Volume 7.3; Platelet Count 277 k/uL (150-450); RBC 4.14 m/uL (3.80-5.40); RDW 13.4 % (11.5-15.5); WBC 6.2 k/uL (3.8-10.6)
[2017-11-13 08:06] LABS: Anion Gap 11 mmol/L; Blood Urea Nitrogen 20 mg/dL (7-17); Calcium 8.9 mg/dL (8.4-10.2); Carbon Dioxide 29 mmol/L (22-30); Chloride 101 mmol/L (98-107); Glucose 131 mg/dL (74-99); Potassium 4.2 mmol/L (3.5-5.1); Sodium 141 mmol/L (137-145)
[2017-11-13] MEDS: OSELTAMIVIR 75 MG CAP PO SCH ×2 (08:08→20:28)
[2017-11-13] MEDS: LEVOFLOXACIN 750 MG TAB PO SCH (08:08)
[2017-11-13] MEDS: methylPREDNISolone SOD SUCCI 125 MG/2 ML VIAL IV SCH (08:09)
[2017-11-13] MEDS: ENOXAPARIN 40 MG/0.4 ML SYRINGE SQ SCH (08:09)
[2017-11-13] MEDS: LACTOBACILLUS ACIDOPH & BULGAR 1 EACH PACKET PO SCH ×3 (08:09→20:29)
[2017-11-13] MEDS: guaiFENesin 600 MG TABLET.ER PO SCH ×2 (08:09→20:28)
[2017-11-13] MEDS: PANTOPRAZOLE 40 MG TABLET PO SCH ×2 (08:09→17:57)
[2017-11-13] MEDS: SODIUM CHLORIDE 0.9% 1,000 ML IV SCH (08:18)
[2017-11-13] MEDS: IPRATROPIUM-ALBUTEROL 3 ML NEB INHALATION SCH ×3 (10:20→18:47)
[2017-11-13 11:58] LABS: Glucose,Whole Blood 264 mg/dL (75-99)
--- NOTE | 2017-11-13 13:57 | P.PN ---
Subjective Progress Note Date: 11/13/17 Principal diagnosis: Shortness of breath and cough Patient is a 67-year-old female with a past medical history of COPD, congestive heart failure, morbid obesity, arthritis, and multiple other comorbid conditions who presented to the ER via EMS with complaints of shortness of breath. In the ER she underwent an extensive evaluation. She was slightly hypertensive on arrival with a blood pressure 163/77. Her laboratory analysis showed slightly low hemoglobin at 10.4. Her labs were otherwise unremarkable. She did come back influenza A positive. Chest x-ray showed bibasilar infiltrate which on review by myself appears more left sided and radiology felt likely atelectasis . She did have a positive d-dimer at 1.39. However she has a chronically positive d-dimer and was recently at [facility] less than one week ago where she underwent an extensive evaluation for possible DVT and clot all which came back negative. Patient does not feel as though she has a blood clot does not want a CT or VQ scan secondary to not being able to lay flat, discussed risk vs benefits including , chronic shortness of breath, and heart strain. She still did not want to proceed with further testing. However patient was alert and oriented 3 with clear thought process she just has gone through this multiple times. Her Wells was 0 and therefore this seems reasonable. She was admitted to the general medical floor for further monitoring and care. She did struggle with pain control and her morphine and Percocet dose was escalated. On the morning of 11/11 a repeat chest x-ray was obtained which showed no acute process. She has been afebrile and white blood cell was decreased at 3.7. She continued to struggle with SOB and cough, she is winded with minimal exertion. She worked with physical therapy and did well. Patient seen and examined at bedside. Still complains of not feeling well. Still struggling with a cough and wheeze. States she would not be able to take care of herself at home and would not be able to afford her Tamiflu. She cannot afford any medications. We discussed that she will likely go home tomorrow once her Tamiflu is completed and she is okay with this. Objective - Vital Signs Vital signs: Vital Signs Temp 97.0 F L 11/13/17 07:00 Pulse 72 11/13/17 10:32 Resp 16 11/13/17 07:00 BP 157/86 11/13/17 07:00 Pulse Ox 93 L 11/13/17 07:00 Intake & Output 11/12/17 11/13/17 11/13/17 18:59 06:59 18:59 Intake Total 430 130 Balance 430 130 Weight 145.15 kg 145.15 kg Intake: Intake, IV Titration 190 130 Amount Piperacillin-Tazobactam 3 50 .375 gm In Dextrose/Water 1 50ml.bag @ 12.5 mls/hr IVPB Q8HR BRETT Rx#: [id number] Sodium Chloride 0.9% 1, 140 130 000 ml @ 20 mls/hr IV . Q24H BRETT Rx#:[id number] Oral 240 Other: Voiding Method Toilet Bedside Commode Bedside Commode Diaper Diaper Diaper # Voids 3 2 # Bowel Movements 1 - Exam General: non toxic, no distress, appears at stated age, morbid obesity Derm: warm, dry Head: atraumatic, normocephalic, symmetric Eyes: EOMI, no lid lag, anicteric sclera Mouth: no lip lesion, mucus membranes moist Cardiovascular: S1S2 reg, no murmur, positive posterior tibial pulse bilateral, Lungs:decreased bs b/l bases, no rhonchi, no rales , no accessory muscle use Abdominal: soft, nontender to palpation, no guarding, no appreciable organomegaly Ext: no gross muscle atrophy, trace edema bilateral lower extremities, no contractures Neuro: CN II-XI grossly intact, no focal neuro deficits Psych: Alert, oriented, upset, crying - Labs CBC & Chem 7: 11/13/17 07:21 11/13/17 07:21 Labs: Abnormal Lab Results - Last 24 Hours (Table) 11/13/17 11/13/17 11/13/17 Range/Units 07:21 07:21 11:41 Hgb 11.2 L (11.4-16.0) gm/dL BUN 20 H (7-17) mg/dL Glucose 131 H (74-99) mg/dL POC Glucose (mg/dL) 264 H (75-99) mg/dL Microbiology - Last 24 Hours (Table) 11/10/17 05:45 Blood Culture - Preliminary Blood No Growth after 72 hours Assessment and Plan Assessment: acute exacerbation of COPD with acute bronchitis -change steroids to PO -Bronchodilators -Levaquin -Tessalon Perles to help with cough -Mucinex Influenza A positive -day 4 of 5 of Tamiflu, placed on this secondary to COPD HTN, now controlled -continue with as needed Lasix, not on additional medications at home Morbid obesity BMI 58.5 - structured outpatient weight loss Chronically elevated D-dimer - Patients D-dimer has been elevated every time it has been measured here - Her well's criteria is 0 as her surgery is 6 weeks out - Patient also refusing CTA or VQ scan - Doubt deep vein thrombosis or pulmonary emboli - Also had negative workup for DVT at [facility] one week ago Chronic diastolic congestive heart failure with ejection fraction 55-60% -Continue home Lasix -Not chronically on beta karol or RENETTA inhibitor -Monitor fluid status closely Acute on chronic low back pain and left knee pain -Increase percocet dose, and decrease frequency of morphine to help with pain. Social stressor - No transportation - limited financial means as spouse passed - refusing meals on wheels/ medicaid rides -Has met with social work and states she cannot help normocytic anemia -Likely related to recent knee surgery -Repeat CBC as outpatient in 4-6 weeks Diarrhea, resolved Chronic: Hypothyroidism Arthritis GERD IBS DVT prophylaxis: Lovenox Discussed with: Patient, floor nursing Anticipated discharge:[address]: home with home health A total of 35 minutes was spent on the care of this complex patient more than 50 % of the time was spent in counseling and care coordination.
[2017-11-13] MEDS ORDERED: AMPICILLIN-SULBACTAM 3 GM in SODIUM CHLORIDE 0.9% 100 ML IVPB SCH (18:00)
[2017-11-13] MEDS: MELATONIN 3 MG TABLET PO SCH (20:27)
[2017-11-13] MEDS: PRAMIPEXOLE 0.25 MG TAB PO SCH (20:28)
[2017-11-14] MEDS: MORPHINE ORAL SOLN 10 MG/5 ML CUP PO PRN ×2 (03:43→10:03)
[2017-11-14] MEDS: oxyCODONE-APAP 10-325MG 1 EACH TAB PO PRN ×2 (04:08→08:16)
[2017-11-14] MEDS: LEVOTHYROXINE 100 MCG TAB PO SCH (05:31)
[2017-11-14] MEDS: IPRATROPIUM-ALBUTEROL 3 ML NEB INHALATION SCH ×2 (07:57→13:37)
[2017-11-14] MEDS: OSELTAMIVIR 75 MG CAP PO SCH (08:15)
[2017-11-14] MEDS: PANTOPRAZOLE 40 MG TABLET PO SCH (08:15)
[2017-11-14] MEDS: guaiFENesin 600 MG TABLET.ER PO SCH (08:15)
[2017-11-14] MEDS: LACTOBACILLUS ACIDOPH & BULGAR 1 EACH PACKET PO SCH (08:15)
[2017-11-14] MEDS: LEVOFLOXACIN 750 MG TAB PO SCH (08:16)
[2017-11-14] MEDS: ENOXAPARIN 40 MG/0.4 ML SYRINGE SQ SCH (08:16)
[2017-11-14 08:24] VITALS: BP 151/87; RESP 18; TEMP 97
[2017-11-14] MEDS ORDERED: predniSONE 20 MG TAB PO SCH (09:00)
[2017-11-14] MEDS ORDERED: ALBUTEROL NEBULIZED 2.5 MG/3 ML INHALATION PRN (09:21)
--- NOTE | 2017-11-14 09:43 | P.DS ---
Providers Date of admission: 11/10/17 07:40 Expected date of discharge: 11/14/17 Attending physician: Juan Winston MD Primary care physician: Jorje Domingo - Discharge Diagnosis(es) (1) COPD (chronic obstructive pulmonary disease) with acute bronchitis Current Visit: Yes Status: Acute (2) Acute bronchitis Current Visit: Yes Status: Acute (3) Influenza A Current Visit: Yes Status: Acute (4) Chronic CHF Current Visit: Yes Status: Acute (5) Elevated d-dimer Current Visit: No Status: Acute (6) Hypertension Current Visit: No Status: Acute (7) Morbid obesity Current Visit: No Status: Acute Hospital Course: Patient is a 67-year-old female with a past medical history of COPD, congestive heart failure, morbid obesity, arthritis, and multiple other comorbid conditions who presented to the ER via EMS with complaints of shortness of breath. In the ER she underwent an extensive evaluation. She was slightly hypertensive on arrival with a blood pressure 163/77. Her laboratory analysis showed slightly low hemoglobin at 10.4. Her labs were otherwise unremarkable. She did come back influenza A positive. Chest x-ray showed bibasilar infiltrate which on review by myself appears more left sided and radiology felt likely atelectasis . She did have a positive d-dimer at 1.39. However she has a chronically positive d-dimer and was recently at [place] less than one week ago where she underwent an extensive evaluation for possible DVT and clot all which came back negative. Patient does not feel as though she has a blood clot does not want a CT or VQ scan secondary to not being able to lay flat, discussed risk vs benefits including , chronic shortness of breath, and heart strain. She still did not want to proceed with further testing. However patient was alert and oriented 3 with clear thought process she just has gone through this multiple times. Her Wells was 0 and therefore this seems reasonable. She was admitted to the general medical floor for further monitoring and care. She did struggle with pain control and her morphine and Percocet dose was escalated. On the morning of 11/11 a repeat chest x-ray was obtained which showed no acute process. She has been afebrile and white blood cell was decreased at 3.7. She continued to struggle with SOB and cough, she is winded with minimal exertion. She worked with physical therapy and did well. She had slow improvement of her hospitalization. Her blood pressure was mildly elevated during hospitalization but she did not want to adjust her blood pressure medications as she felt secondary to pain. She has been recently having her pain medicines escalated by her orthopedic team. Her oxycodone 7.5 with no longer working and we had to escalate her to oxycodone 10/325. I did run an [facility] automated prescription charting on her and what she reported to me was consistent with what I found on that chart. She did complete her duration of Tamiflu during hospital. She was given multiple resources but was resistant to trying them. We did arrange transportation home and gave her coupons to help with her prednisone, Levaquin, and Mirapex prescriptions. Patient seen and examined at bedside. Still with a cough. States she is wheezing we discussed that this is all upper airway and is not coming from her lungs. We also discussed that it'll take her several weeks to recover from influenza [place] and she can anticipate some low-level cough through that time Vital signs reviewed and stable. General: non toxic, no distress, appears at stated age morbid obesity Derm: warm, dry Head: atraumatic, normocephalic, symmetric Eyes: EOMI, no lid lag, anicteric sclera Mouth: no lip lesion, mucus membranes moist Cardiovascular: S1S2 reg, no murmur, positive posterior tibial pulse bilateral, Lungs: Decreased breath sounds bilateral bases, no rhonchi, no rales , no accessory muscle use Abdominal: soft, nontender to palpation, no guarding, no appreciable organomegaly Ext: no gross muscle atrophy, no edema, no contractures Neuro: CN II-XI grossly intact, no focal neuro deficits Psych: Alert, oriented, appropriate affect A total of 41 minutes of time were spent preparing this complex discharge summary . Pertinent Studies: Chest x-ray-no acute process Patient Condition at Discharge: Serious Plan - Discharge Summary Discharge Rx Participant: No New Discharge Prescriptions: New RX: guaiFENesin [Mucinex] 600 mg PO Q12HR #30 tablet.er RX: Levofloxacin [Levaquin] 750 mg PO DAILY #2 tab RX: oxyCODONE-APAP 10-325MG [Percocet 10-325 mg] 2 each PO Q4H PRN #21 tab PRN Reason: Pain RX: predniSONE 60 mg PO DAILY #6 tab Continue RX: Albuterol Nebulized [Ventolin Nebulized] 2.5 mg INHALATION RT-QID PRN PRN Reason: Shortness Of Breath RX: Furosemide [Lasix] 40 mg PO DAILY PRN PRN Reason: Edema RX: Omeprazole 20 mg PO BID RX: Melatonin 6 mg PO HS RX: Diazepam [Valium] 2 mg PO BID PRN PRN Reason: Anxiety RX: Levothyroxine Sodium [Synthroid] 100 mcg PO DAILY RX: Albuterol Inhaler [Ventolin Hfa Inhaler] 1 - 2 puff INHALATION RT-Q6H PRN PRN Reason: Shortness Of Breath Or Wheezing RX: Pramipexole [Mirapex] 0.25 mg PO HS #30 tab Discontinued oxyCODONE-APAP 7.5-325MG [Percocet 7.5-325 mg] 1 - 2 tab PO Q6HR PRN PRN Reason: Pain Discharge Medication List RX: Albuterol Nebulized [Ventolin Nebulized] 2.5 mg INHALATION RT-QID PRN [History] RX: Furosemide [Lasix] 40 mg PO DAILY PRN 06/29/17 [History] RX: Albuterol Inhaler [Ventolin Hfa Inhaler] 1 - 2 puff INHALATION RT-Q6H PRN [History] RX: Diazepam [Valium] 2 mg PO BID PRN 11/10/17 [History] RX: Levothyroxine Sodium [Synthroid] 100 mcg PO DAILY 11/10/17 [History] RX: Melatonin 6 mg PO HS 11/10/17 [History] RX: Omeprazole 20 mg PO BID 11/10/17 [History] RX: Levofloxacin [Levaquin] 750 mg PO DAILY #2 tab 11/14/17 [Rx] RX: Pramipexole [Mirapex] 0.25 mg PO HS #30 tab 11/14/17 [Rx] RX: guaiFENesin [Mucinex] 600 mg PO Q12HR #30 tablet.er 11/14/17 [Rx] RX: oxyCODONE-APAP 10-325MG [Percocet 10-325 mg] 2 each PO Q4H PRN #21 tab 11/14 [Rx] RX: predniSONE 60 mg PO DAILY #6 tab 11/14/17 [Rx] Follow up Appointment(s)/Referral(s): Jorje Domingo MD [Primary Care Provider] - 1-2 days
[2017-11-14 10:22] VITALS: PULSE 69
== END 2017-11-14 14:04 | disposition home health service (06) | DRG 194 ==
LOC: EC 05:15 → OBSVTOIN 07:40 → 4MS4W 07:40 → 5MS5E 09:15
PROVIDERS: ADMIT Family Medicine; ATTEND Family Medicine
DX: J10.1 Influenza due to other identified influenza virus with other respiratory manifestations (principal); J44.0 Chronic obstructive pulmonary disease with (acute) lower respiratory infection; I11.0 Hypertensive heart disease with heart failure; I50.32 Chronic diastolic (congestive) heart failure; E66.01 Morbid (severe) obesity due to excess calories; M51.24 Other intervertebral disc displacement, thoracic region; Z68.43 Body mass index [BMI] 50.0-59.9, adult; J44.1 Chronic obstructive pulmonary disease with (acute) exacerbation; J98.11 Atelectasis; J20.9 Acute bronchitis, unspecified; F41.9 Anxiety disorder, unspecified; F32.9 Major depressive disorder, single episode, unspecified; G89.29 Other chronic pain; M51.26 Other intervertebral disc displacement, lumbar region; M51.27 Other intervertebral disc displacement, lumbosacral region; K58.0 Irritable bowel syndrome with diarrhea; M19.91 Primary osteoarthritis, unspecified site; E03.9 Hypothyroidism, unspecified; K21.9 Gastro-esophageal reflux disease without esophagitis; D64.9 Anemia, unspecified; R79.1 Abnormal coagulation profile; T38.0X5A Adverse effect of glucocorticoids and synthetic analogues, initial encounter; R60.9 Edema, unspecified; I25.2 Old myocardial infarction; R32 Unspecified urinary incontinence; Z79.890 Hormone replacement therapy; Z79.899 Other long term (current) drug therapy; Z71.3 Dietary counseling and surveillance; Z85.42 Personal history of malignant neoplasm of other parts of uterus; Z96.653 Presence of artificial knee joint, bilateral; Z87.11 Personal history of peptic ulcer disease; Z87.81 Personal history of (healed) traumatic fracture; Z91.410 Personal history of adult physical and sexual abuse; Z90.49 Acquired absence of other specified parts of digestive tract; Z90.710 Acquired absence of both cervix and uterus; Z96.642 Presence of left artificial hip joint; Z87.01 Personal history of pneumonia (recurrent); Z87.442 Personal history of urinary calculi; Z88.5 Allergy status to narcotic agent; Z88.8 Allergy status to other drugs, medicaments and biological substances; Z91.041 Radiographic dye allergy status; Z82.69 Family history of other diseases of the musculoskeletal system and connective tissue; Z82.49 Family history of ischemic heart disease and other diseases of the circulatory system; Z80.1 Family history of malignant neoplasm of trachea, bronchus and lung; L30.9 Dermatitis, unspecified; M54.30 Sciatica, unspecified side; Z86.19 Personal history of other infectious and parasitic diseases
CPT/HCPCS: 36415; 71046; 80048; 80053; 82550; 82553; 83036; 83605; 83735; 83880; 84100; 84484; 85025; 85027; 85379; 85610; 85730; 87040; 87502; 93005; 94640; 94760; 96361; 96365; 96366; 96375; 96376; 99285

== ENCOUNTER 2017-12-02 20:42 | Observation (INO) | payer MEDICARE, OTHER ==
[2017-12-02 21:12] LABS: Basophils % (A) 1 %; Eosinophils # (A) 0.3 k/uL (0-0.7); Eosinophils % (A) 3 %; HCT 34.2 % (34.0-46.0); HGB 11.5 gm/dL (11.4-16.0); Lymphocytes # (A) 1.5 k/uL (1.0-4.8); Lymphocytes % (A) 18 %; MCH 26.6 pg (25.0-35.0); MCHC 33.6 g/dL (31.0-37.0); MCV 79.2 fL (80.0-100.0); Mean Platelet Volume 6.7; Monocytes # (A) 0.4 k/uL (0-1.0); Monocytes % (A) 4 %; Neutrophils # (A) 6.3 k/uL (1.3-7.7); Neutrophils % (A) 72 %; Platelet Count 327 k/uL (150-450); RBC 4.31 m/uL (3.80-5.40); RDW 13.5 % (11.5-15.5); WBC 8.7 k/uL (3.8-10.6)
[2017-12-02 21:29] LABS: ALT 31 U/L (9-52); AST 27 U/L (14-36); Alkaline Phosphatase 169 U/L (38-126); Anion Gap 14 mmol/L; Blood Urea Nitrogen 10 mg/dL (7-17); Calcium 9.5 mg/dL (8.4-10.2); Carbon Dioxide 25 mmol/L (22-30); Chloride 103 mmol/L (98-107); Glucose 130 mg/dL (74-99); Magnesium 1.6 mg/dL (1.6-2.3); Potassium 3.9 mmol/L (3.5-5.1); Sodium 142 mmol/L (137-145); Total Bilirubin 0.4 mg/dL (0.2-1.3); Total Protein 6.7 g/dL (6.3-8.2)
[2017-12-02 21:34] LABS: Partial Thromboplastin Time 22.3 sec (22.0-30.0); Prothrombin Time 9.9 sec (9.0-12.0)
[2017-12-02 21:37] LABS: D-Dimer 1.85 mg/L FEU (<0.60)
[2017-12-02 21:49] LABS: Creatine Kinase MB 0.4 ng/mL (0.0-2.4); Troponin I <0.012 ng/mL (0.000-0.034)
[2017-12-02] MEDS ORDERED: ONDANSETRON 4 MG/2 ML VIAL IVP STA (21:53)
[2017-12-02] MEDS ORDERED: HYDROcodone/APAP 10-325MG 1 EACH TAB PO ONE (21:53)
[2017-12-02] MEDS ORDERED: methylPREDNISolone SOD SUCCI 125 MG/2 ML VIAL IV STA (22:09)
--- NOTE | 2017-12-02 22:09 | XR ---
EXAMINATION: XR chest 3V DATE AND TIME: 12/02/2017 9:31 PM ORDERING PROVIDER: Ant Munson DO CLINICAL INDICATION: SOB, h/o CHF TECHNIQUE: AP and 2 lateral views COMPARISON: 11/11/2017 DESCRIPTION: The lungs are clear. The pleural spaces are negative. The cardiac silhouette is not enlarged. Tortuous thoracic aorta redemonstrated. The skeletal structures are intact without focal findings. The soft tissues are unremarkable. IMPRESSION: NO ACUTE PROCESS.
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
[2017-12-02] MEDS ORDERED: NALOXONE 0.4 MG/ML 1 ML VIAL IV PRN (22:30)
[2017-12-02] MEDS ORDERED: HYDROcodone/APAP 10-325MG 1 EACH TAB PO PRN (23:09)
[2017-12-02] MEDS ORDERED: FUROSEMIDE 40 MG TAB PO PRN (23:09)
[2017-12-03] MEDS ORDERED: IPRATROPIUM-ALBUTEROL 3 ML NEB INHALATION PRN (00:06)
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
[2017-12-03] MEDS: oxyCODONE-APAP 10-325MG 1 EACH TAB PO PRN ×2 (01:04→08:43)
[2017-12-03] MEDS ORDERED: MELATONIN 3 MG TABLET PO ONE (02:01)
[2017-12-03] MEDS ORDERED: PRAMIPEXOLE 0.25 MG TAB PO STA (02:02)
[2017-12-03] MEDS: PRAMIPEXOLE 0.25 MG TAB PO SCH ×2 (03:06→20:20)
[2017-12-03] MEDS ORDERED: HYDROcodone/APAP 10-325MG 1 EACH TAB PO ONE (03:17)
[2017-12-03 03:18] VITALS: BMI 54.8
[2017-12-03] MEDS: PANTOPRAZOLE 40 MG TABLET PO SCH ×2 (08:46→19:19)
[2017-12-03] MEDS: predniSONE 20 MG TAB PO SCH (08:46)
[2017-12-03] MEDS: LEVOTHYROXINE 100 MCG TAB PO SCH (08:47)
[2017-12-03] MEDS: HYDROcodone/APAP 10-325MG 1 EACH TAB PO PRN ×2 (13:54→19:21)
--- NOTE | 2017-12-03 14:41 | P.PN ---
Subjective Progress Note Date: 12/03/17 Principal diagnosis: shortness of breath Patient is a 67-year-old female with a history of diastolic congestive heart failure COPD without home O2, chronic back pain, and recent ones and pneumonia who presented to the hospital after her son found her with her lips turning blue called 911. She had recently been here 3 weeks ago where she was treated by myself for influenza, pneumonia, and mild CHF exacerbation. She had been discharged home on antibiotics and systemic steroids. She had improvement for quite some time but 2 days ago started becoming symptomatic again. In the ER she underwent an extensive evaluation. Her oxygen levels were found to be 90-92% on room air. She was also found to have an elevated d- dimer. The ED physician was concerned that she needs to be ruled out either a VQ scan or CTA of the chest. She was also diagnosed with acute exacerbation of COPD. She was started on steroids and bronchodilators and admitted for observation. She has a history of a chronically elevated d-dimer. Her most recent surgery was 9 weeks ago with left knee. She is adamantly refusing either CTA of the chest or VQ scan that she cannot lay flat and she ALLERGIC to iodine. She was offered prep for her iodine ALLERGY as well as medications to help her tolerate the procedure that she is still refused. Patient seen and examined at bedside. She states that she is having increased back pain. She also states that her shortness of breath is increased when laying on her left side. She reports that it was very hot the last 2 days at her house and her window was not opening and she then became short of breath and congested. She also explained that she takes [place] for pain at home. she denies any unusual diarrhea or constipation Objective - Vital Signs Vital signs: Vital Signs Temp 98.5 F 12/03/17 07:25 Pulse 95 12/03/17 11:20 Resp 18 12/03/17 11:10 BP 138/85 12/03/17 07:25 Pulse Ox 95 12/03/17 07:25 Intake & Output 12/02/17 12/03/17 12/03/17 18:59 06:59 18:59 Intake Total 240 Balance 240 Weight 137.4 kg Intake: Oral 240 Other: Voiding Method Toilet # Voids 2 - Exam General: non toxic, no distress, appears at stated age, obese Derm: warm, dry Head: atraumatic, normocephalic, symmetric Eyes: EOMI, no lid lag, anicteric sclera Mouth: no lip lesion, mucus membranes moist Cardiovascular: S1S2 reg, no murmur, positive posterior tibial pulse bilateral, Lungs: Decreased breath sounds on the right, no rhonchi, no rales , no accessory muscle use Abdominal: soft, nontender to palpation, no guarding, no appreciable organomegaly Ext: no gross muscle atrophy, no edema, no contractures Neuro: CN II-XI grossly intact, no focal neuro deficits Psych: Alert, oriented, appropriate affect - Labs CBC & Chem 7: 12/02/17 21:00 12/02/17 21:00 Labs: Abnormal Lab Results - Last 24 Hours (Table) 12/02/17 12/02/17 12/02/17 Range/Units 21:00 21:00 21:00 MCV 79.2 L (80.0-100.0) fL D-Dimer 1.85 H (<0.60) mg/L FEU Glucose 130 H (74-99) mg/dL Alkaline Phosphatase 169 H (38-126) U/L Assessment and Plan Assessment: Acute exacerbation of COPD -Steroids, bronchodilators, Mucinex, antibiotic -needs home assessment for O2 prior to discharge -Negative for influenza Hypertensive urgency on arrival, now improved -Not on any chronic antihypertensive medications Chronic low back pain -Resume patient's home [place] 10 2 tablets every 4 hours Subacute diarrhea -Patient suffers from this frequently -Rule out C. diff if recurs Chronic diastolic CHF, EF 55-60% -Continue home as needed Lasix -Not chronically on beta karol or RENETTA inhibitor Chronically elevated d-dimer -Patient continues to refuse VQ scan and CTA chest Morbid obesity with BMI 55.4 -Structured outpatient weight loss DVT prophylaxis: Lovenox Discussed with: Patient, nursing Anticipated discharge: 24-[address]: home with home health A total of 35 minutes was spent on the care of this complex patient more than 50 % of the time was spent in counseling and care coordination.
[2017-12-03] MEDS: IPRATROPIUM-ALBUTEROL 3 ML NEB INHALATION SCH ×2 (17:13→20:54)
[2017-12-03] MEDS: LORATADINE 10 MG TAB PO SCH (19:19)
[2017-12-03] MEDS: DOXYCYCLINE MONOHYDRATE 100 MG CAPSULE PO SCH (19:19)
[2017-12-03] MEDS: guaiFENesin 600 MG TABLET.ER PO SCH (20:20)
[2017-12-03] MEDS ORDERED: MELATONIN 3 MG TABLET PO SCH (21:00)
[2017-12-03] MEDS ORDERED: PRAMIPEXOLE 0.25 MG TAB PO SCH (21:00)
[2017-12-04 00:05] VITALS: RESP 16
[2017-12-04] MEDS: HYDROcodone/APAP 10-325MG 1 EACH TAB PO PRN ×3 (00:06→09:04)
[2017-12-04] MEDS ORDERED: ONDANSETRON 4 MG/2 ML VIAL IVP PRN (04:20)
--- NOTE | 2017-12-04 07:17 | XR ---
EXAMINATION TYPE: XR chest 2V DATE OF EXAM: 12/04/2017 COMPARISON: December 02, 2017 HISTORY: Shortness of breath TECHNIQUE: Frontal and lateral views of the chest are obtained. FINDINGS: Scattered senescent parenchymal changes noted. Hyperinflation compatible with COPD. No evidence for infiltrate. No evidence for atelectasis. Heart size is stable. Mediastinal structures are stable and grossly unremarkable. No evidence for hilar prominence. Degenerative changes dorsal spine. IMPRESSION: 1. No evidence for acute pulmonary disease.
[2017-12-04] MEDS: LEVOTHYROXINE 100 MCG TAB PO SCH (07:22)
[2017-12-04 07:36] LABS: HCT 34.5 % (34.0-46.0); HGB 10.8 gm/dL (11.4-16.0); Hypochromasia Slight; MCH 26.1 pg (25.0-35.0); MCHC 31.3 g/dL (31.0-37.0); MCV 83.3 fL (80.0-100.0); Mean Platelet Volume 7.1; Platelet Count 343 k/uL (150-450); RBC 4.14 m/uL (3.80-5.40); RDW 13.7 % (11.5-15.5); WBC 10.1 k/uL (3.8-10.6)
[2017-12-04 07:50] LABS: Anion Gap 13 mmol/L; Blood Urea Nitrogen 22 mg/dL (7-17); Calcium 9.3 mg/dL (8.4-10.2); Carbon Dioxide 25 mmol/L (22-30); Chloride 105 mmol/L (98-107); Glucose 108 mg/dL (74-99); Potassium 4.8 mmol/L (3.5-5.1); Sodium 143 mmol/L (137-145)
[2017-12-04] MEDS: IPRATROPIUM-ALBUTEROL 3 ML NEB INHALATION SCH ×2 (08:01→11:49)
[2017-12-04 08:49] VITALS: BP 143/73; TEMP 98.1
[2017-12-04] MEDS: DOXYCYCLINE MONOHYDRATE 100 MG CAPSULE PO SCH (08:56)
[2017-12-04] MEDS: LORATADINE 10 MG TAB PO SCH (08:56)
[2017-12-04] MEDS: PANTOPRAZOLE 40 MG TABLET PO SCH (08:56)
[2017-12-04] MEDS: guaiFENesin 600 MG TABLET.ER PO SCH (08:56)
[2017-12-04] MEDS: predniSONE 20 MG TAB PO SCH (08:56)
[2017-12-04] MEDS ORDERED: FUROSEMIDE 40 MG TAB PO SCH (09:00)
--- NOTE | 2017-12-04 10:35 | CT ---
EXAMINATION TYPE: CT chest wo con DATE OF EXAM: 12/04/2017 COMPARISON: CT chest November 23, 2015. Chest x-ray earlier today and older x-rays. HISTORY: SOB, possible mass, pneumonia CT DLP: 774 mGycm. Automated Exposure Control for Dose Reduction was Utilized. TECHNIQUE: CT scan of the thorax is performed without IV contrast. FINDINGS: Exam is slightly suboptimal secondary to patient's large body habitus. LUNGS: There is respiratory motion artifact degradation making evaluation slightly suboptimal especia lly for subcentimeter nodularity. No obvious parenchymal mass is present. No suspicious consolidation or groundglass opacity is seen. No pleural effusion or pneumothorax is noted. Tracheobronchial tree is patent. MEDIASTINUM: Lack of IV contrast is noted to limit evaluation for mediastinal and especially hilar a denopathy. There are no definitive greater than 1 cm hilar or mediastinal lymph nodes. No cardiomeg beatriz or pericardial effusion is seen. 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 Coronary artery calcification proximal LAD is seen near axial image 26, noted marker for coronary artery disease. OTHER: Moderate to severe multilevel spurring in the thoracic spine is present. IMPRESSION: No suspicious acute pulmonary process. No worrisome mass identified.
[2017-12-04 12:18] VITALS: PULSE 87
--- NOTE | 2017-12-04 12:18 | ECHOF ---
Referral Reason:CHF, right heart strain MEASUREMENTS -------- HEIGHT: 157.5 cm WEIGHT: 138.3 kg BP: RVIDd: 3.5 cm (< 3.3) IVSd: 1.1 cm (0.6 - 1.1) LVIDd: 4.0 cm (3.9 - 5.3) LVPWd: 1.2 cm (0.6 - 1.1) IVSs: 1.6 cm LVIDs: 1.6 cm LVPWs: 1.8 cm Ao Diam: 3.4 cm (2.0 - 3.7) AV Cusp: 1.7 cm (1.5 - 2.6) LA Diam: 3.2 cm (2.7 - 3.8) MV EXCURSION: 13.189 mm (> 18.000) MV EF SLOPE: 42 mm/s (70 - 150) EPSS: 0.6 cm MV E Izaiah: 0.73 m/s MV DecT: 184 ms MV A Izaiah: 0.64 m/s MV E/A Ratio: 1.14 RAP: 5.00 mmHg RVSP: 12.14 mmHg FINDINGS -------- Sinus rhythm. This was a technically difficult study with suboptimal views. The left ventricular size is normal. There is mild concentric left ventricular hypertrophy. Overa ll left ventricular systolic function is normal with, an EF between 55 - 60 %. The right ventricle is mildly enlarged. The left atrium is normal in size. The right atrium is normal in size. Aortic valve is trileaflet and is mildly thickened. There is trace mitral regurgitation. Trace tricuspid regurgitation present. The right ventricular systolic pressure, as measured by Dopp ler, is 12.14mmHg. Pulmonic valve appears structurally normal. The aortic root size is normal. The pericardium is normal. CONCLUSIONS -------- 1. Sinus rhythm. 2. This was a technically difficult study with suboptimal views. 3. The left ventricular size is normal. 4. There is mild concentric left ventricular hypertrophy. 5. Overall left ventricular systolic function is normal with, an EF between 55 - 60 %. 6. The right ventricle is mildly enlarged. 7. The left atrium is normal in size. 8. The right atrium is normal in size. 9. Aortic valve is trileaflet and is mildly thickened. 10. There is trace mitral regurgitation. 11. Trace tricuspid regurgitation present. 12. The right ventricular systolic pressure, as measured by Doppler, is 12.14mmHg. 13. Pulmonic valve appears structurally normal. 14. The aortic root size is normal. 15. The pericardium is normal. DRAPERY ESTIMATOR: Christina Patel RDCS
--- NOTE | 2017-12-04 12:57 | P.DS ---
Providers Date of admission: 12/02/17 22:32 Expected date of discharge: 12/04/17 Attending physician: Laura Wiley MD Primary care physician: Jorje Domingo - Discharge Diagnosis(es) (1) COPD exacerbation Current Visit: Yes Status: Acute (2) Elevated d-dimer Current Visit: Yes Status: Acute (3) Hypertensive urgency Current Visit: Yes Status: Acute (4) Chronic diastolic CHF (congestive heart failure), NYHA class 2 Current Visit: Yes Status: Acute (5) Chronic back pain Current Visit: No Status: Acute (6) Chronic diarrhea Current Visit: Yes Status: Acute (7) Morbid obesity with BMI of 50.0-59.9, adult Current Visit: No Status: Chronic Hospital Course: Patient is a 67-year-old female with a history of diastolic congestive heart failure COPD without home O2, chronic back pain, and recent influenza and pneumonia who presented to the hospital after her son found her with her lips turning blue and called 911. She had recently been here 3 weeks ago where she was treated by myself for influenza, pneumonia, and mild CHF exacerbation. She had been discharged home on antibiotics and systemic steroids. She had improvement for quite some time but 2 days ago started becoming symptomatic again. In the ER she underwent an extensive evaluation. Her oxygen levels were found to be 90-92% on room air. She was also found to have an elevated d-dimer. The ED physician was concerned that she needs to be ruled out either a VQ scan or CTA of the chest. She was also diagnosed with acute exacerbation of COPD. She was started on steroids and bronchodilators and admitted for observation. She has a history of a chronically elevated d- dimer. Her most recent surgery was 9 weeks ago with left knee. She is adamantly refusing either CTA of the chest or VQ scan that she cannot lay flat and she ALLERGIC to iodine. She was offered prep for her iodine ALLERGY as well as medications to help her tolerate the procedure that she is still refused. Her breathing had greatly improved after 1 day of steroids. She was still complaining of pain in between her sternum and back bone. We again discussed CTA with contrast she still refused despite discussing possibility of pulmonary embolism. She was agreeable to CT chest without contrast to rule out mass or obstructing lesion. CT chest was negative but did show a left sided aortic arch. She also under echo which showed preserved ejection fraction and no right heart strain. She was determined stable for discharge. She will complete a course of steroids, doxycycline, Claritin, and mucinex. We did discuss that she may have a shortness of breath at night and her symptoms of lip turning blue due to obstructive sleep apnea. I did discuss with her at length the need for outpatient sleep study and that most of the time these will be covered by her insurance and can be done at home. I have encouraged her to talk with her provider about this. We also discussed the fact that she may have difficulty laying on her left side secondary to her aberrant right subclavian artery that runs posterior to the esophagus. She stated that she will run out of her [place] because she was supposed to have an appointment with her PCP today but did not make that appointment. I did review her [place] prescription index. She last had [place] 10 mg filled on 11/27 with 80 tablets. This should have lasted her almost 7 days. She came in on day 5. I will therefore refill her [place] 10/325 with 60 tablets until she can make an appointment with her physician next week to avoid her running out of these suffering from opiate withdrawal. I have advised her that she needs to decrease the amount of opiates have changed her prescription to every 6 hours from every 4 hours. Patient seen and examined at bedside. Breathing is better, no chest pain, still having intermittent back pain. Concerned about transportation home and affording medications. Provided a coupon for medications. Vital signs reviewed and stable. General: non toxic, no distress, appears at stated age Derm: warm, dry Head: atraumatic, normocephalic, symmetric Eyes: EOMI, no lid lag, anicteric sclera Mouth: no lip lesion, mucus membranes moist Cardiovascular: S1S2 reg, no murmur, positive posterior tibial pulse bilateral, Lungs: decreased bs right base, no rhonchi, no rales , no accessory muscle use Abdominal: soft, nontender to palpation, no guarding, no appreciable organomegaly Ext: no gross muscle atrophy, no edema, no contractures Neuro: CN II-XI grossly intact, no focal neuro deficits Psych: Alert, oriented, appropriate affect A total of 25 minutes of time were spent preparing this complex discharge summary . Pertinent Studies: CT chest-no suspicious acute pulmonary process. No worrisome masses identified. Redemonstration of left aortic arch with a bare right subclavian running posterior to esophagus. Echocardiogram-ejection fraction 55-60%, RVSP 12.4 Patient Condition at Discharge: Stable Plan - Discharge Summary New Discharge Prescriptions: New Doxycycline Monohydrate [Vibramycin] 100 mg PO DAILY #3 capsule guaiFENesin [Mucinex] 600 mg PO Q12HR PRN #30 tablet.er PRN Reason: Congestion Loratadine [Claritin] 10 mg PO DAILY #30 tab predniSONE 40 mg PO DAILY 4 Days #8 tab Continue Albuterol Nebulized [Ventolin Nebulized] 2.5 mg INHALATION RT-QID PRN PRN Reason: Shortness Of Breath Furosemide [Lasix] 40 mg PO DAILY PRN PRN Reason: Edema Omeprazole 20 mg PO BID Melatonin 6 mg PO HS Levothyroxine Sodium [Synthroid] 100 mcg PO DAILY Albuterol Inhaler [Ventolin Hfa Inhaler] 1 - 2 puff INHALATION RT-Q6H PRN PRN Reason: Shortness Of Breath Or Wheezing Pramipexole [Mirapex] 0.25 mg PO HS #30 tablet Changed Hydrocodone/Acetaminophen [[place] 10-325] 2 tab PO Q6HR PRN #60 tablet PRN Reason: Pain Discharge Medication List Albuterol Nebulized [Ventolin Nebulized] 2.5 mg INHALATION RT-QID PRN 02/01/17 [ History] Furosemide [Lasix] 40 mg PO DAILY PRN 06/29/17 [History] Albuterol Inhaler [Ventolin Hfa Inhaler] 1 - 2 puff INHALATION RT-Q6H PRN [History] Levothyroxine Sodium [Synthroid] 100 mcg PO DAILY 11/10/17 [History] Melatonin 6 mg PO HS 11/10/17 [History] Omeprazole 20 mg PO BID 11/10/17 [History] Pramipexole [Mirapex] 0.25 mg PO HS #30 tablet 11/14/17 [Rx] Doxycycline Monohydrate [Vibramycin] 100 mg PO DAILY #3 capsule 12/04/17 [Rx] Hydrocodone/Acetaminophen [[place] 10-325] 2 tab PO Q6HR PRN #60 tablet 12/04/17 [ Rx] Loratadine [Claritin] 10 mg PO DAILY #30 tab 12/04/17 [Rx] guaiFENesin [Mucinex] 600 mg PO Q12HR PRN #30 tablet.er 12/04/17 [Rx] predniSONE 40 mg PO DAILY 4 Days #8 tab 12/04/17 [Rx] Follow up Appointment(s)/Referral(s): Jorje Domingo MD [Primary Care Provider] - 1-2 days Activity/Diet/Wound Care/Special Instructions: heart healthy diet Activity as tolerated You would benefit from a sleep study please discuss this with Dr. Domingo at your next appointment. Discharge Disposition: HOME SELF-CARE
== END 2017-12-04 15:20 | disposition home or self-care (01) ==
LOC: EC 20:42 → 3OBS 22:32
PROVIDERS: ADMIT Internal Medicine; ATTEND Internal Medicine
DX: J96.01 Acute respiratory failure with hypoxia (principal); J44.1 Chronic obstructive pulmonary disease with (acute) exacerbation; R07.89 Other chest pain; I16.0 Hypertensive urgency; R78.89 Finding of other specified substances, not normally found in blood; K58.9 Irritable bowel syndrome, unspecified; M19.90 Unspecified osteoarthritis, unspecified site; G89.29 Other chronic pain; M54.5 Low back pain; E03.9 Hypothyroidism, unspecified; E66.01 Morbid (severe) obesity due to excess calories; Z68.43 Body mass index [BMI] 50.0-59.9, adult; F32.9 Major depressive disorder, single episode, unspecified; F41.9 Anxiety disorder, unspecified; I50.32 Chronic diastolic (congestive) heart failure; I25.2 Old myocardial infarction; Z71.3 Dietary counseling and surveillance; Z79.890 Hormone replacement therapy; Z79.899 Other long term (current) drug therapy; Z85.42 Personal history of malignant neoplasm of other parts of uterus; Z88.8 Allergy status to other drugs, medicaments and biological substances; Z87.440 Personal history of urinary (tract) infections; Z88.6 Allergy status to analgesic agent; Z91.041 Radiographic dye allergy status; Z96.651 Presence of right artificial knee joint; Z96.642 Presence of left artificial hip joint; Z82.49 Family history of ischemic heart disease and other diseases of the circulatory system; Z80.1 Family history of malignant neoplasm of trachea, bronchus and lung; Z82.3 Family history of stroke; Z87.442 Personal history of urinary calculi; Z76.5 Malingerer [conscious simulation]; Z90.710 Acquired absence of both cervix and uterus
CPT/HCPCS: 96374 ×2; 96375 ×2; 99285 ×2; 96376; 36415; 94640 ×4; 94760; 93005; 93306; 85379; 83880; 80053; 80048; 82553; 83735; 84484; 85025; 85027; 85610; 85730; 87502; 71046 ×2; 71250; G0378 ×3; J2930; J2405 ×2; J7512 ×2

== ENCOUNTER 2017-12-26 18:03 | Inpatient (IN) | payer MEDICARE, OTHER ==
[2017-12-26] MEDS ORDERED: methylPREDNISolone SOD SUCCI 125 MG/2 ML VIAL IV STA (18:19)
[2017-12-26] MEDS ORDERED: IPRATROPIUM-ALBUTEROL 3 ML NEB INHALATION STA (18:19)
[2017-12-26] MEDS ORDERED: FUROSEMIDE 10 MG/ML 4 ML VIAL IV STA (18:19)
[2017-12-26] MEDS ORDERED: ASPIRIN 81 MG PO STA (18:20)
[2017-12-26] MEDS ORDERED: NITROGLYCERIN OINT 1 INCH/GM PACKET TOPICAL STA (18:20)
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
[2017-12-26] MEDS ORDERED: ONDANSETRON 4 MG/2 ML VIAL IVP STA (18:34)
[2017-12-26 18:42] LABS: Basophils % (A) 1 %; Eosinophils # (A) 0.2 k/uL (0-0.7); Eosinophils % (A) 3 %; Lymphocytes # (A) 1.2 k/uL (1.0-4.8); Lymphocytes % (A) 17 %; MCH 26.1 pg (25.0-35.0); MCHC 32.4 g/dL (31.0-37.0); MCV 80.4 fL (80.0-100.0); Mean Platelet Volume 6.4; Monocytes # (A) 0.3 k/uL (0-1.0); Monocytes % (A) 4 %; Neutrophils # (A) 5.2 k/uL (1.3-7.7); Neutrophils % (A) 74 %; Platelet Count 299 k/uL (150-450); RDW 14.3 % (11.5-15.5); WBC 7.1 k/uL (3.8-10.6)
[2017-12-26] MEDS ORDERED: HYDROcodone/APAP 10-325MG 1 EACH TAB PO ONE (18:43)
[2017-12-26 19:01] LABS: Creatine Kinase 27 U/L (30-135)
[2017-12-26 19:08] LABS: ALT 27 U/L (9-52); AST 24 U/L (14-36); Albumin 4.2 g/dL (3.5-5.0); Alkaline Phosphatase 118 U/L (38-126); Anion Gap 16 mmol/L; Blood Urea Nitrogen 12 mg/dL (7-17); Calcium 9.2 mg/dL (8.4-10.2); Carbon Dioxide 24 mmol/L (22-30); Chloride 102 mmol/L (98-107); Glucose 127 mg/dL (74-99); Potassium 3.9 mmol/L (3.5-5.1); Sodium 142 mmol/L (137-145); Total Bilirubin 0.5 mg/dL (0.2-1.3); Total Protein 6.7 g/dL (6.3-8.2)
[2017-12-26 19:09] LABS: Partial Thromboplastin Time 23.7 sec (22.0-30.0); Prothrombin Time 10.1 sec (9.0-12.0)
[2017-12-26 19:13] LABS: Creatine Kinase MB 0.2 ng/mL (0.0-2.4); Troponin I <0.012 ng/mL (0.000-0.034)
--- NOTE | 2017-12-26 19:49 | XR ---
EXAMINATION TYPE: XR chest 2V DATE OF EXAM: 12/26/2017 COMPARISON: 12/04/2017 HISTORY: Shortness of breath TECHNIQUE: Frontal and lateral views of the chest are obtained. FINDINGS: There is a new left basilar opacity overlying the thoracic spine on the lateral image. Car diomediastinal silhouette is nonenlarged. No lynda pulmonary vascular congestion. No sizable pleural effusion. Osseous structures are grossly intact with moderate degenerative changes of the thoracic sp ine. IMPRESSION: New left posterior basilar segment consolidation suspicious for pneumonia.
[2017-12-26] MEDS ORDERED: VANCOMYCIN IV PER PHARMACY 1 EACH MISC MISCELLANE PRN (19:54)
[2017-12-26] MEDS ORDERED: VANCOMYCIN 1,000 MG in SODIUM CHLORIDE 0.9% 250 ML IVPB STA (19:54)
[2017-12-26] MEDS ORDERED: PIPERACILLIN-TAZOBACTAM 3.375 GM in DEXTROSE/WATER 1 50ML.BAG IVPB STA (19:54)
[2017-12-26] MEDS ORDERED: VANCOMYCIN 2,250 MG in SODIUM CHLORIDE 0.9% 500 ML IVPB STA (20:02)
[2017-12-26] MEDS ORDERED: PNEUMONIA PROTOCOL UTILIZED 1 EACH MISC PO PRN (20:15)
[2017-12-26] MEDS ORDERED: guaiFENesin 600 MG TABLET.ER PO PRN (20:37)
[2017-12-26] MEDS ORDERED: FUROSEMIDE 40 MG TAB PO PRN (20:37)
[2017-12-26 21:32] VITALS: BMI 62.1
[2017-12-26] MEDS: MELATONIN 3 MG TABLET PO SCH (21:49)
[2017-12-26] MEDS: methylPREDNISolone SOD SUCCI 125 MG/2 ML VIAL IV SCH (22:21)
[2017-12-26] MEDS: PRAMIPEXOLE 0.25 MG TAB PO SCH (22:22)
[2017-12-26] MEDS ORDERED: MORPHINE SULFATE 4 MG/ML SYRINGE IVP STA (22:36)
[2017-12-26] MEDS: PIPERACILLIN-TAZOBACTAM 3.375 GM in DEXTROSE/WATER 1 50ML.BAG IVPB SCH (22:56)
[2017-12-27] MEDS: HYDROcodone/APAP 10-325MG 1 EACH TAB PO PRN ×4 (00:09→17:59)
[2017-12-27] MEDS ORDERED: ONDANSETRON 4 MG/2 ML VIAL IVP PRN (05:36)
[2017-12-27] MEDS: LEVOTHYROXINE 100 MCG TAB PO SCH (05:51)
[2017-12-27] MEDS ORDERED: VANCOMYCIN 2,250 MG in SODIUM CHLORIDE 0.9% 500 ML IVPB SCH (09:00)
[2017-12-27] MEDS: ENOXAPARIN 40 MG/0.4 ML SYRINGE SQ SCH (09:41)
[2017-12-27] MEDS: LORATADINE 10 MG TAB PO SCH (09:42)
[2017-12-27] MEDS: methylPREDNISolone SOD SUCCI 125 MG/2 ML VIAL IV SCH ×4 (09:42→21:22)
[2017-12-27] MEDS: PANTOPRAZOLE 40 MG TABLET PO SCH (09:43)
[2017-12-27] MEDS: PIPERACILLIN-TAZOBACTAM 3.375 GM in DEXTROSE/WATER 1 50ML.BAG IVPB SCH ×2 (13:10→17:27)
--- NOTE | 2017-12-27 20:35 | HP ---
HISTORY AND PHYSICAL DATE OF SERVICE: 12/27/2017 CHIEF COMPLAINT: Shortness of breath. HISTORY OF PRESENT ILLNESS: This 67-year-old woman with a past medical history of multiple medical problems, history of CHF, history of GI bleed, history of DJD, history of pneumonia, history of colitis, history of adenoidectomy, history of obesity, being followed by in the outpatient setting, was complaining of shortness of breath over the past several days. The patient was recently admitted to [facility] with complaints of chronic obstructive pulmonary disease, acute exacerbation. Patient also complaining of chest pain which is felt in the anterior part of the chest radiating to the back also. Please note patient had extensive cardiac evaluation by Dr. Kaden Cruz and including cardiac catheterization and other issues also. The patient also complaining of right arm tremors periodically also which is of recent onset. No history of trauma. PAST MEDICAL HISTORY: History of CHF, COPD, history of GI bleed, history pneumonia, history of colitis , history of adenoidectomy, history of bladder surgery. MEDICATIONS: Prior to admission include home medications are: 1. Melatonin 6 mg p.o. at bedtime. 2. Mirapex 0.25 mg. 3. Omeprazole. 4. Levothyroxine 100 mcg daily. 5. Hydrocodone 2 tablets p.r.n. 6. Lasix 40 mg. 7. Albuterol 2.5 q.i.d. p.r.n. ALLERGIES: IODINATED CONTRAST DYES, KETORALAC; NSAIDS, PROCHLORPERAZINE AND TRAMADOL. FAMILY HISTORY: History of cancer, CVA, TIA, hypertension, myocardial infarction and history of bladder cancer. SOCIAL HISTORY: No history of smoking. No history of alcohol intake. REVIEW OF SYSTEMS: ENT: No diminished vision, no diminished hearing. Cardiovascular: As mentioned earlier. Respiratory: As mentioned earlier. Respiratory: As mentioned earlier. GI no nausea or vomiting. no dysuria or retention. Central nervous system: No numbness or weakness. ALLERGY/IMMUNOLOGY: No asthma or hayfever. Musculoskeletal: As mentioned earlier. Hematology/Oncology: No history of anemia. Endocrine: Hypothyroidism. Constitutional: As mentioned earlier. Dermatology: Negative. Rheumatology: Negative. Psychiatry : As mentioned earlier. PHYSICAL EXAM: GENERAL APPEARANCE: The patient is alert and oriented times three. VITAL SIGNS: Pulse 92, blood pressure 150/70, respirations 16, temperature 98.4 , pulse ox 91% on 2 L. HEENT is conjunctivae normal. Oral mucosa moist. NECK is no jugular venous distention. No carotid bruit. No lymph node enlargement. CARDIOVASCULAR system: S1, S2 muffled. RESPIRATORY: Breath sounds diminished in the bases. Bilateral scattered rhonchi and crackles. Breath sounds diminished on the left side. ABDOMEN: Soft, nontender. No mass palpable. Legs no edema. No swelling. NERVOUS SYSTEM: Higher functions as mentioned earlier. Moves all four limbs. No focal deficits. LYMPHATICS: No lymph nodes palpable in the neck, axillae or groin. SKIN: No rashes. LAB STUDIES: At this time shows CBC within normal limits. Glucose 127, creatine kinase 27. The chest x-ray noted possible left lower lobe pneumonia. ASSESSMENT: 1. Chronic obstructive pulmonary disease acute exacerbation with possible left lower lobe pneumonia possibly gram-negative. 2. History of congestive heart failure. 3. History of gastrointestinal bleed. 4. History of coronary artery disease. 5. History of degenerative joint disease. 6. History of pneumonia. 7. History of colitis. 8. History of uterine cancer and surgery. 9. History of chronic back pain, degenerative joint disease. 10.History of C diff colitis. 11.History of cholecystectomy. 12.History of anxiety/depression. RECOMMENDATIONS AND DISCUSSION: In this 67-year-old woman who presented with multiple complex medical issues, we will monitor the patient closely. Continue the current medications, management and symptomatic treatment. Continue with bronchodilators and otherwise continue with steroids have been initiated. Broad-spectrum IV antibiotics have been used including Zosyn and Vanco. I would also recommend evaluation by Dr. Shoemaker from [facility]. Otherwise, followup labs will be recommended. Also resume the home medications. DVT prophylaxis. Proton pump inhibitors. Repeat labs. Prognosis guarded because of multiple complex medical issues. Further recommendations to follow. As mentioned earlier the patient also had chest pain which has been also evaluated. Troponins are negative. The chest x-ray was personally reviewed. I would order UA with micro and further recommendations to follow. MMODL / IJN: [id number] / MTDD
[2017-12-27 21:16] LABS: Amorphous Sediment,Urine Rare /hpf; Appearance,Urine Turbid (Clear); Bilirubin,Urine Negative (Negative); Blood,Urine Negative (Negative); Color,Urine Yellow; Glucose,Urine (UA) Trace (Negative); Ketones,Urine 1+ (Negative); Leukocyte Esterase,Urine Negative (Negative); Nitrite,Urine Negative (Negative); PH, Urine 5.5 (5.0-8.0); Protein,Urine Negative (Negative); Specific Gravity,Urine 1.025 (1.001-1.035); Squamous Epithelial Cell,Urine 1 /hpf (0-4); Uric Acid Crystals,Urine Occasional /hpf; Urobilinogen,Urine <2.0 mg/dL (<2.0)
[2017-12-27] MEDS: MELATONIN 3 MG TABLET PO SCH (21:17)
[2017-12-27] MEDS: MORPHINE SULFATE 4 MG/ML SYRINGE IVP PRN (21:17)
[2017-12-27] MEDS: PRAMIPEXOLE 0.25 MG TAB PO SCH (21:23)
[2017-12-28] MEDS: HYDROcodone/APAP 10-325MG 1 EACH TAB PO PRN ×4 (00:09→17:41)
[2017-12-28] MEDS: PIPERACILLIN-TAZOBACTAM 3.375 GM in DEXTROSE/WATER 1 50ML.BAG IVPB SCH ×3 (00:58→15:10)
[2017-12-28] MEDS: MORPHINE SULFATE 4 MG/ML SYRINGE IVP PRN ×4 (03:02→20:41)
[2017-12-28] MEDS: VANCOMYCIN 2,250 MG in SODIUM CHLORIDE 0.9% 500 ML IVPB SCH ×2 (04:54→19:09)
[2017-12-28] MEDS: LEVOTHYROXINE 100 MCG TAB PO SCH (06:04)
[2017-12-28] MEDS: IPRATROPIUM-ALBUTEROL 3 ML NEB INHALATION PRN ×4 (07:53→20:12)
[2017-12-28 08:08] LABS: Basophils % (A) 0 %; Eosinophils % (A) 0 %; HCT 35.3 % (34.0-46.0); HGB 11.3 gm/dL (11.4-16.0); Lymphocytes # (A) 0.7 k/uL (1.0-4.8); Lymphocytes % (A) 8 %; MCH 25.9 pg (25.0-35.0); MCHC 31.9 g/dL (31.0-37.0); Mean Platelet Volume 6.7; Monocytes # (A) 0.3 k/uL (0-1.0); Monocytes % (A) 3 %; Neutrophils # (A) 8.6 k/uL (1.3-7.7); Neutrophils % (A) 88 %; Platelet Count 364 k/uL (150-450); RBC 4.36 m/uL (3.80-5.40); RDW 14.4 % (11.5-15.5); WBC 9.8 k/uL (3.8-10.6)
[2017-12-28 08:18] LABS: Anion Gap 14 mmol/L; Blood Urea Nitrogen 18 mg/dL (7-17); Calcium 9.3 mg/dL (8.4-10.2); Carbon Dioxide 24 mmol/L (22-30); Chloride 104 mmol/L (98-107); Glucose 141 mg/dL (74-99); Potassium 4.5 mmol/L (3.5-5.1); Sodium 142 mmol/L (137-145)
[2017-12-28] MEDS: PANTOPRAZOLE 40 MG TABLET PO SCH (08:44)
[2017-12-28] MEDS: LORATADINE 10 MG TAB PO SCH (08:44)
[2017-12-28] MEDS: methylPREDNISolone SOD SUCCI 125 MG/2 ML VIAL IV SCH ×2 (08:45→13:49)
[2017-12-28] MEDS: ENOXAPARIN 40 MG/0.4 ML SYRINGE SQ SCH (08:45)
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
[2017-12-28] MEDS: MELATONIN 3 MG TABLET PO SCH (20:40)
[2017-12-28] MEDS: PRAMIPEXOLE 0.25 MG TAB PO SCH (20:40)
[2017-12-28 21:07] LABS: Glucose,Whole Blood 163 mg/dL (75-99)
--- NOTE | 2017-12-28 23:06 | PN ---
PROGRESS NOTE DATE OF SERVICE: 12/28/2017 This 67-year-old woman with a past history of multiple medical problems was admitted with COPD acute exacerbation, as well as left lower pneumonia. The patient is being closely monitored. Dr. Shoemaker is also following the patient closely. No chest pain. No palpitations. No fever. PHYSICAL EXAM: Alert and oriented x3. Pulse 80, blood pressure 149/70, respiration 18, temperature 99.2, pulse ox 98% on 2 L. HEENT: Conjunctivae normal. Oral mucosa moist. NECK: No jugular venous distention. No carotid bruit. No lymph node enlargement. CARDIOVASCULAR SYSTEM: S1, S2 muffled. RESPIRATORY: Breath sounds diminished in the bases. A few scattered rhonchi and crackles. Breath sounds diminished more on the left side. ABDOMEN: Soft, nontender. NERVOUS SYSTEM: No focal deficits. LABS: WBC 9.2, hemoglobin 11.3. ASSESSMENT: 1. Chronic obstructive pulmonary disease acute exacerbation with possible left lower lobe pneumonia with possibly gram-negative. 2. History of congestive heart failure. 3. History of gastrointestinal bleed. 4. History of coronary artery disease. 5. History of degenerative joint disease. 6. History of pneumonia. 7. History of colitis. 8. Uterine cancer and surgery. 9. History of chronic back pain and DJD. 10.History of Clostridium difficile colitis. 11.History of cholecystectomy. 12.Anxiety and depression. RECOMMENDATIONS AND DISCUSSION: Recommend to continue current management and continue with symptomatic treatment. Continue with broad-spectrum IV antibiotics. Otherwise, continue with the bronchodilators and closely follow with Dr. Shoemaker and Pulmonary. Further recommendations to follow. MMODL / IJN: [id number] /
[2017-12-29] MEDS: HYDROcodone/APAP 10-325MG 1 EACH TAB PO PRN ×4 (00:28→18:41)
[2017-12-29] MEDS: PIPERACILLIN-TAZOBACTAM 3.375 GM in DEXTROSE/WATER 1 50ML.BAG IVPB SCH ×4 (01:03→23:17)
[2017-12-29] MEDS: MORPHINE SULFATE 4 MG/ML SYRINGE IVP PRN ×3 (03:33→21:06)
[2017-12-29] MEDS: LEVOTHYROXINE 100 MCG TAB PO SCH (06:12)
[2017-12-29] MEDS: IPRATROPIUM-ALBUTEROL 3 ML NEB INHALATION PRN ×2 (07:23→11:08)
[2017-12-29] MEDS: PANTOPRAZOLE 40 MG TABLET PO SCH (07:41)
[2017-12-29] MEDS: LORATADINE 10 MG TAB PO SCH (07:41)
[2017-12-29] MEDS: ENOXAPARIN 40 MG/0.4 ML SYRINGE SQ SCH (07:41)
[2017-12-29 08:39] LABS: Basophils % (A) 0 %; Eosinophils % (A) 0 %; HCT 35.8 % (34.0-46.0); HGB 11.2 gm/dL (11.4-16.0); Hypochromasia Slight; Lymphocytes # (A) 1.2 k/uL (1.0-4.8); Lymphocytes % (A) 13 %; MCH 25.9 pg (25.0-35.0); MCHC 31.4 g/dL (31.0-37.0); MCV 82.4 fL (80.0-100.0); Mean Platelet Volume 6.7; Monocytes # (A) 0.5 k/uL (0-1.0); Monocytes % (A) 5 %; Neutrophils # (A) 7.6 k/uL (1.3-7.7); Neutrophils % (A) 81 %; Platelet Count 349 k/uL (150-450); RBC 4.35 m/uL (3.80-5.40); RDW 14.6 % (11.5-15.5); WBC 9.5 k/uL (3.8-10.6)
[2017-12-29 08:54] LABS: Anion Gap 15 mmol/L; Blood Urea Nitrogen 19 mg/dL (7-17); Calcium 9.1 mg/dL (8.4-10.2); Carbon Dioxide 25 mmol/L (22-30); Chloride 102 mmol/L (98-107); Glucose 102 mg/dL (74-99); Potassium 4.4 mmol/L (3.5-5.1); Sodium 142 mmol/L (137-145)
[2017-12-29] MEDS: VANCOMYCIN 2,250 MG in SODIUM CHLORIDE 0.9% 500 ML IVPB SCH (11:34)
--- NOTE | 2017-12-29 11:47 | CDI ---
Last Revision, July 2017 Documentation Clarification Form Date: 12/29/17 1142 From: Kasie Manriquez RN, CCDS Admit Date: 12/28/2017 12:19:00 PM Patient Name: Renée Krishnan Visit Number: [id number] ATTENTION: The Clinical Documentation Specialists (CDI) and [facility] Coding Staff appreciate your assistance in clarifying documentation. Please respond to the clarification below the line at the bottom and electronically sign. The CDI & [facility] Coding staff will review the response and follow-up if needed. Please note: Queries are made part of the Legal Health Record. If you have any questions, please contact the author of this message via ITS. Dr. Miller History/Risk Factors: Hx of CHF, COPD, GIB Clinical Indicators: VS/Pulse OX: Temp 99, hr 88, rr 16, b/p 167/81, spo2 100% 2l nc BNP: 275 12/14/17 Echocardiogram Results: EF 55-60%, mild concentric LVH Chest X Ray: New left posterior basilar segment consolidation suspicious for pneumonia. Treatment: Lasix 60 mg IVP x1, followed by Lasix 40 mg PO QD In your professional opinion, can you please clarify the acuity and type of CHF if known? Chronic Systolic Heart Failure: Chronic Diastolic Heart Failure: Chronic Systolic & Diastolic Heart Failure: Unable to Determine Other, please specify Please continue to document in your progress notes and discharge summary in order to capture severity of illness and risk of mortality. Include clinical findings that support your diagnosis. Chronic Diastolic Heart Failure: MTDD
--- NOTE | 2017-12-29 14:58 | PN ---
PROGRESS NOTE DATE OF SERVICE: 12/29/2017 This 67-year-old woman is admitted with COPD acute exacerbation as well as pneumonia, is being closely monitored. No chest pain. No palpitations. No fever. PHYSICAL EXAM: Alert and oriented x3. Pulse is 77, blood pressure 180/94, respiration 20, temperature 96.8, pulse ox 94% on 2 L. HEENT Conjunctivae normal. NECK: No jugular venous distension. CARDIOVASCULAR: S1, S2, muffled. RESPIRATORY: Breath sounds diminished at the bases, a few rhonchi, no crackles ABDOMEN: Soft, nontender. No mass. LEGS: No edema, no swelling. NERVOUS SYSTEM: No focal deficits. LABS: WBC 9, hemoglobin 11.2. ASSESSMENT: 1. Chronic obstructive pulmonary disease acute exacerbation with possible left lower lobe pneumonia possibly gram-negative. 2. History of congestive heart failure with chronic diastolic dysfunction. 3. History of gastrointestinal bleed. 4. History of coronary artery disease. 5. History of degenerative joint disease, history of pneumonia. 6. History of colitis. 7. History of colon cancer surgery, history of back pain DJD. 8. History of Clostridium difficile colitis, history of cholecystectomy. 9. Anxiety, depression. RECOMMENDATION AND DISCUSSION: Recommend to continue current medications monitor symptomatic treatment. Otherwise at this time I recommend continue with current medications. Continue with antibiotics closely follow with the broad-spectrum antibiotics. Patient is on Zosyn and Vanco. Closely follow with Dr. Carmen gross. Further recommendations. MMODL / IJN: [id number] /
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
--- NOTE | 2017-12-29 18:01 | P.PN ---
Subjective Progress Note Date: 12/29/17 Principal diagnosis: Probable left lower lobe pneumonia Consult dated 12/28/2017 67-year-old female who presented to the emergency department on December 26 and 1812 with complaints of shortness of breath. It apparently started the day prior to admission. In addition, the shortness of breath was primarily present with exertion not so much at rest. In addition, she complained of some bilateral lower extremity edema. She had a nonproductive cough. There is no fevers or chills. No nausea vomiting or diarrhea. She does have a long-standing history of congestive heart failure. In route from home, she was given breathing treatments by the EMS personnel. She was recently hospitalized about 6 weeks prior with a diagnosis of congestive heart failure "COPD" pneumonia and influenza. She is feeling a bit better. She is a lifelong nonsmoker. Denies any prior history of any lung disease per se. She states that she lived with a smoker. Denies any asthma emphysema or chronic bronchitis. Her past medical history includes angina, congestive heart failure, GI bleed, myocardial infarction, colitis, urinary incontinence, urinary tract infections, uterine cancer, upper GI bleed, hypothyroidism, kidney stones," Clostridium difficile colitis. On 12/29/2017 patient seen in follow-up on medical surgical floor, denies any worsening dyspnea, although remains very dyspneic with any exertion. She is still having some chest tightness with deep inspiration, particularly over left lower lung, and occasionally on the right side as well. She is being treated with a combination of Zosyn and vancomycin. She has a dry cough, and is not able to expectorate any sputum. She is receiving oral diuretics on as-needed basis, she has chronic lower extremity swelling. She is on room air, and her pulse ox is 94%, she is afebrile, denies any fever or chills. Blood culture has been negative at the 48 hour joe, lab work has been negative for any evidence of leukocytosis, electrolytes are within normal limits, BUN is 19, creatinine is 0.79, no acute events overnight, continue with current plan of treatment. Objective - Vital Signs Vital signs: Vital Signs Temp 98.7 F 12/29/17 15:00 Pulse 81 12/29/17 15:00 Resp 18 12/29/17 15:00 BP 146/83 12/29/17 15:00 Pulse Ox 94 L 12/29/17 15:00 Intake & Output 12/28/17 12/29/17 12/29/17 18:59 06:59 18:59 Output Total 1300 Balance -1300 Output: Urine 1300 Other: # Voids 1 1 # Bowel Movements 1 1 - Exam 67-year-old morbidly obese white female, no acute distress, oriented 3. HEENT examination is grossly unremarkable. Mucous membranes are moist. No oral lesions. Neck supple. Full range of motion. No adenopathy or thyromegaly. Neck veins are flat. Cardiovascular examination reveals regular rhythm rate. S1-S2 normal. No S3- S4 or murmur. Heart sounds are distant. Lungs reveal diminished breath sounds bilaterally. No wheezes. No crackles. Air exchange is reasonable. Abdomen obese. Bowel sounds are heard. No masses or tenderness. Extremities are intact. No cyanosis or clubbing. Slight edema is noted in the lower extremities. Skin without rash. Neurologic examination is prepared nonfocal. - Labs CBC & Chem 7: 12/29/17 07:49 12/29/17 07:49 Labs: Abnormal Lab Results - Last 24 Hours (Table) 12/28/17 12/29/17 12/29/17 Range/Units 20:55 07:49 07:49 Hgb 11.2 L (11.4-16.0) gm/dL BUN 19 H (7-17) mg/dL Glucose 102 H (74-99) mg/dL POC Glucose (mg/dL) 163 H (75-99) mg/dL Microbiology - Last 24 Hours (Table) 12/26/17 18:21 Blood Culture - Preliminary Blood No Growth after 48 hours Assessment and Plan Plan: Assessment: Probable left lower lobe pneumonia Recent hospitalization for COPD exacerbation and influenza tracheobronchitis Morbid obesity Medical noncompliance History of diastolic CHF History of GI bleed. Pneumonia by history History of colitis. Hypothyroidism Insomnia GERD Multiple other medical problems and comorbidities Plan: Plan dated 12/28/2017 The patient seemed be doing relatively well. Steroids were discontinued. She is not bronchospastic and she is a lifelong nonsmoker. We will review the medications. Additional recommendations suggestions are forthcoming. We'll make sure that she's got breathing treatments ordered. Plan dated 12/29/2017 Patient still complaining of some tightness in her chest, and some chest wall discomfort exacerbated by coughing and deep breathing. No fever, no chills, vital signs are stable, no chest congestio or phlegm production. Patient continues on empiric antibiotic coverage in the form of Zosyn and vancomycin. Continue monitoring fever pattern, continue monitoring labs. GI and DVT prophylaxis, nebulized treatments. We'll repeat chest x-ray in the morning I performed a history & physical examination of the patient and discussed their management with my nurse practitioner, Sahra Hendricks. I reviewed the nurse practitioner's note and agree with the documented findings and plan of care. Lung sounds are diminished breath sounds. The findings and the impression was discussed with the patient. I attest to the documentation by the nurse practitioner. Time with Patient: Less than 30
--- NOTE | 2017-12-29 20:17 | CT ---
EXAMINATION TYPE: CT brain wo con DATE OF EXAM: 12/29/2017 COMPARISON: Prior CT brain 09/15/2016 HISTORY: Patient with remote history of brain lesion. CT DLP: 1104.1 mGycm Automated exposure control for dose reduction was used. Helical imaging through the brain. FINDINGS: Exam is stable. No hemorrhage or hydrocephalus. Large calcified mass is present at the level of the p ituitary gland as on previous exam measuring approximately 19 mm in diameter. There is an inferior im pression on the brain as on prior exam. Anterior temporal calcified mass is also present in the right middle cranial fossa and is stable. IMPRESSION: STABLE CALCIFIED MASSES.
[2017-12-29] MEDS: MELATONIN 3 MG TABLET PO SCH (21:05)
[2017-12-29] MEDS: PRAMIPEXOLE 0.25 MG TAB PO SCH (21:05)
[2017-12-30] MEDS ORDERED: VANCOMYCIN TROUGH DUE 1 EACH MISC MISCELLANE ONE (01:00)
[2017-12-30] MEDS: HYDROcodone/APAP 10-325MG 1 EACH TAB PO PRN ×4 (01:11→19:52)
[2017-12-30] MEDS: VANCOMYCIN 2,250 MG in SODIUM CHLORIDE 0.9% 500 ML IVPB SCH (02:36)
[2017-12-30] MEDS: MORPHINE SULFATE 4 MG/ML SYRINGE IVP PRN (03:32)
[2017-12-30] MEDS: LEVOTHYROXINE 100 MCG TAB PO SCH (06:23)
--- NOTE | 2017-12-30 07:35 | XR ---
EXAMINATION TYPE: XR chest 2V DATE OF EXAM: 12/30/2017 COMPARISON: 12/26/2017 INDICATION: Follow-up left lower lobe pneumonia. TECHNIQUE: Frontal and lateral views of the chest are obtained. FINDINGS: The heart size is normal. The pulmonary vasculature is normal. The lungs are clear. No suspicious infiltrate left base. IMPRESSION: 1. No acute pulmonary process.
[2017-12-30] MEDS: PIPERACILLIN-TAZOBACTAM 3.375 GM in DEXTROSE/WATER 1 50ML.BAG IVPB SCH ×3 (08:12→23:11)
[2017-12-30] MEDS: LORATADINE 10 MG TAB PO SCH (08:12)
[2017-12-30] MEDS: ENOXAPARIN 40 MG/0.4 ML SYRINGE SQ SCH (08:12)
[2017-12-30] MEDS: PANTOPRAZOLE 40 MG TABLET PO SCH (08:12)
[2017-12-30] MEDS: MORPHINE SULFATE 2 MG/ML SYRINGE IVP PRN ×3 (11:05→18:49)
[2017-12-30] MEDS ORDERED: FUROSEMIDE 10 MG/ML 4 ML VIAL IV STA (11:54)
[2017-12-30 12:47] LABS: Basophils % (A) 0 %; Eosinophils # (A) 0.2 k/uL (0-0.7); Eosinophils % (A) 3 %; HCT 34.9 % (34.0-46.0); HGB 11.4 gm/dL (11.4-16.0); Lymphocytes # (A) 1.4 k/uL (1.0-4.8); Lymphocytes % (A) 18 %; MCH 26.2 pg (25.0-35.0); MCHC 32.7 g/dL (31.0-37.0); MCV 79.9 fL (80.0-100.0); Mean Platelet Volume 7.3; Monocytes # (A) 0.5 k/uL (0-1.0); Monocytes % (A) 7 %; Neutrophils # (A) 5.5 k/uL (1.3-7.7); Neutrophils % (A) 72 %; Platelet Count 328 k/uL (150-450); RBC 4.37 m/uL (3.80-5.40); RDW 14.7 % (11.5-15.5); WBC 7.6 k/uL (3.8-10.6)
[2017-12-30 13:01] LABS: Calcium 8.4 mg/dL (8.4-10.2); Potassium 4.3 mmol/L (3.5-5.1)
--- NOTE | 2017-12-30 13:59 | P.PN ---
Subjective Progress Note Date: 12/30/17 Principal diagnosis: Probable left lower lobe pneumonia Consult dated 12/28/2017 67-year-old female who presented to the emergency department on December 26 and 1812 with complaints of shortness of breath. It apparently started the day prior to admission. In addition, the shortness of breath was primarily present with exertion not so much at rest. In addition, she complained of some bilateral lower extremity edema. She had a nonproductive cough. There is no fevers or chills. No nausea vomiting or diarrhea. She does have a long-standing history of congestive heart failure. In route from home, she was given breathing treatments by the EMS personnel. She was recently hospitalized about 6 weeks prior with a diagnosis of congestive heart failure "COPD" pneumonia and influenza. She is feeling a bit better. She is a lifelong nonsmoker. Denies any prior history of any lung disease per se. She states that she lived with a smoker. Denies any asthma emphysema or chronic bronchitis. Her past medical history includes angina, congestive heart failure, GI bleed, myocardial infarction, colitis, urinary incontinence, urinary tract infections, uterine cancer, upper GI bleed, hypothyroidism, kidney stones," Clostridium difficile colitis. On 12/29/2017 patient seen in follow-up on medical surgical floor, denies any worsening dyspnea, although remains very dyspneic with any exertion. She is still having some chest tightness with deep inspiration, particularly over left lower lung, and occasionally on the right side as well. She is being treated with a combination of Zosyn and vancomycin. She has a dry cough, and is not able to expectorate any sputum. She is receiving oral diuretics on as-needed basis, she has chronic lower extremity swelling. She is on room air, and her pulse ox is 94%, she is afebrile, denies any fever or chills. Blood culture has been negative at the 48 hour joe, lab work has been negative for any evidence of leukocytosis, electrolytes are within normal limits, BUN is 19, creatinine is 0.79, no acute events overnight, continue with current plan of treatment. On 12/30/2017 patient seen in follow-up on medical surgical floor. She is complaining of ongoing dyspnea, worse with exertion. Still complaining of some chest tightness exacerbated by deep inspiration particularly over left lower chest wall area. Today's chest x-ray has been reviewed by Dr. Will and showed no acute pulmonary process, the lungs are clear, no suspicious infiltrate at the left base. Work has been negative for any evidence of leukocytosis, patient has been afebrile, denies any fever or chills, she is on room air, with a pulse ox of 95%, lung sounds are clear to auscultation. Patient in the past has had marginally elevated d-dimer, nonspecific, the most recent one on 12/02/2017 at 1.82. Patient has ALLERGIES to IV contrast, and has been refusing CT angiography, and refusing VQ scan stating that she is unable to lay flat for the test. Patient has been receiving Lasix on an as- needed basis chronic lower extremity edema, and she states her weight has been fluctuating significantly. Looking back at her previous admission weight it appears that she had a significant weight increase since her last admission from 138.4 kg on 12/04/2017 to 154.2 kg on 12/26/2017, of around 5.8 kg in less than a month. Patient has been quite cautious about taking diuretics on the regular basis related to a previous episode of dehydration, and acute injury. She seems quite frustrated with a lack of definitive reason for her ongoing shortness of breath. It was explained to her patient's it creates her inability and to undergo certain testing. For now will continue current antibiotic coverage, however there has been no evidence to support the bacterial pneumonia diagnosis. Objective - Vital Signs Vital signs: Vital Signs Temp 98.1 F 12/30/17 07:00 Pulse 82 12/30/17 07:00 Resp 19 12/30/17 11:36 BP 143/73 12/30/17 07:00 Pulse Ox 96 12/30/17 07:00 Intake & Output 12/29/17 12/30/17 12/30/17 18:59 06:59 18:59 Intake Total 600 200 Output Total 1300 Balance -1300 600 200 Intake: Oral 600 200 Output: Urine 1300 Other: Voiding Method Bedside Commode Bedside Commode # Voids 1 # Bowel Movements 1 - Exam 67-year-old morbidly obese white female, no acute distress, oriented 3. HEENT examination is grossly unremarkable. Mucous membranes are moist. No oral lesions. Neck supple. Full range of motion. No adenopathy or thyromegaly. Neck veins are flat. Cardiovascular examination reveals regular rhythm rate. S1-S2 normal. No S3- S4 or murmur. Heart sounds are distant. Lungs reveal clear breath sounds bilaterally. No wheezes. No crackles. Air exchange is reasonable. Abdomen obese. Bowel sounds are heard. No masses or tenderness. Extremities are intact. No cyanosis or clubbing. Slight edema is noted in the lower extremities. Skin without rash. Neurologic examination is prepared nonfocal. - Labs CBC & Chem 7: 12/30/17 12:10 12/30/17 12:10 Labs: Abnormal Lab Results - Last 24 Hours (Table) 12/30/17 12/30/17 Range/Units 12:10 12:10 MCV 79.9 L (80.0-100.0) fL BUN 23 H (7-17) mg/dL Microbiology - Last 24 Hours (Table) 12/26/17 18:21 Blood Culture - Preliminary Blood No Growth after 72 hours Assessment and Plan Plan: Assessment: Probable left lower lobe pneumonia. Today's chest x-ray showed no evidence of left lower lobe infiltrate, there has been no fever, no chest congestion no sputum production, no leukocytosis. She does complain of left lower lobe chest wall discomfort with deep inspiration Recent hospitalization for COPD exacerbation and influenza tracheobronchitis Morbid obesity Medical noncompliance History of diastolic CHF History of GI bleed. Pneumonia by history History of colitis. Hypothyroidism Insomnia GERD Multiple other medical problems and comorbidities Plan: Plan dated 12/28/2017 The patient seemed be doing relatively well. Steroids were discontinued. She is not bronchospastic and she is a lifelong nonsmoker. We will review the medications. Additional recommendations suggestions are forthcoming. We'll make sure that she's got breathing treatments ordered. Plan dated 12/29/2017 Patient still complaining of some tightness in her chest, and some chest wall discomfort exacerbated by coughing and deep breathing. No fever, no chills, vital signs are stable, no chest congestio or phlegm production. Patient continues on empiric antibiotic coverage in the form of Zosyn and vancomycin. Continue monitoring fever pattern, continue monitoring labs. GI and DVT prophylaxis, nebulized treatments. We'll repeat chest x-ray in the morning Plan dated 12/30/2017 We'll give the patient a dose of IV Lasix, came back at her previous admission there has been of 15.8 low weight increase in less than a month, it is possible that her dyspnea is related to fluid overload. Chest x-ray has been reviewed by Dr. Will, and showed no acute pulmonary process, no infiltrate, no pulmonary edema, no pleural effusion, no atelectasis. Patient remains afebrile , no fever or chills, we'll continue current antibiotic coverage for another 24 hours, so far there has been no evidence to substantiate the bacterial pneumonia diagnosis. Unfortunately patient is unable to undergo CTA chest or VQ scan due to her inability to have IV contrast or lie flat for the exam. Continue to follow I performed a history & physical examination of the patient and discussed their management with my nurse practitioner, Sahra Hendricks. I reviewed the nurse practitioner's note and agree with the documented findings and plan of care. Lung sounds are clear breath sounds. The findings and the impression was discussed with the patient. I attest to the documentation by the nurse practitioner. Time with Patient: Less than 30
--- NOTE | 2017-12-30 15:46 | EEG ---
ELECTROENCEPHALOGRAM REPORT DATE OF EE12/30/2017. REFERRING PHYSICIAN: Dr. Narayanan. INTERPRETING PHYSICIAN: Dr. Sonya Avery MD ELECTROENCEPHALOGRAPHIC EXAMINATION REPORT: INDICATION FOR EXAMINATION: This patient is a 67-year-old female being evaluated for right hand tremors. 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 AGE: [age]. EEG FINDINGS: A routine 21 channel awake digital EEG recording was accomplished utilizing the 10-20 international system with bipolar and referential montages. The background activity in the most alert resting state consists of a low to medium amplitude, fairly well developed and well sustained 8-9 hertz activity over the posterior head regions. This posterior rhythm attenuates to eye opening. There is a small amount of low amplitude 18-20 Hz beta activity seen maximally over the anterior head regions. Muscle and movement artifact was observed on a few occasions during the tracing. Hyperventilation was not performed. Photic stimulation at flash frequencies of 2-30 Hz produced a minimal occipital driving response. No epileptiform discharges were seen. IMPRESSION: This EEG is within normal limits for the patient's age. The EEG failed to reveal any focal, lateralized, or epileptiform abnormalities. Clinical correlation is recommended. MMODL / IJN: [id number] /
--- NOTE | 2017-12-30 18:09 | P.PN ---
Subjective Progress Note Date: 12/30/17 Progress note being dictated for Dr. Cunningham. Interval history: This a 67-year-old female admitted with acute COPD exacerbation, possible left lower lobe pneumonia, restrictive lung disease and multiple other medical issues. Maintained on empiric antibiotic.Complains of exertional dyspnea. Declining CT angiographically as well as VQ scan. Chest x- ray nonacute. Afebrile, normal WBC. Maintaining O2 sats in the mid 90s on room air. Denies chest pain, palpitations. Significant weight gain since last admission, 3 weeks ago; states fear of kidney failure, but has been compliant with her Lasix regimen. History of CHF, Recent suboptimal Echo of 12/04/2017 reports normal LV function, EF 55-60%. Objective - Vital Signs Vital signs: Vital Signs Temp 98.5 F 12/30/17 15:00 Pulse 88 12/30/17 15:45 Resp 17 12/30/17 15:45 BP 100/58 12/30/17 15:00 Pulse Ox 100 12/30/17 15:00 Intake & Output 12/29/17 12/30/17 12/30/17 18:59 06:59 18:59 Intake Total 600 200 Output Total 1300 300 Balance -1300 600 -100 Weight 154 kg Intake: Oral 600 200 Output: Urine 1300 300 Other: Voiding Method Bedside Commode Bedside Commode # Voids 1 # Bowel Movements 1 - Exam PHYSICAL EXAM: VITAL SIGNS: As above GENERAL: Sitting up in bed, no acute distress, eating lunch HEENT: Conjunctivae normal. eyes normal. Oral mucosa moist NECK: Supple, No JVD. No thyroid enlargement. CARDIOVASCULAR: S1, S2 muffled. Systolic murmur. RESPIRATION: Breath sounds diminished in the bases. No rhonchi or crackles. No bronchial breathing. ABDOMEN: Obese, Soft, nontender . No guarding. no masses palpable.Bowel sounds heard. LEGS: Minimal edema. no cyanosis, no pain. PSYCHIATRY: Alert and oriented -3, mood and affect normal. NERVOUS SYSTEM: Cranial N 2-12 grossly normal. Moves all 4 limbs. Diffuse weakness No focal deficits. Skin: no ulcer no rash - Labs CBC & Chem 7: 12/30/17 12:10 12/30/17 12:10 Labs: Abnormal Lab Results - Last 24 Hours (Table) 12/30/17 12/30/17 Range/Units 12:10 12:10 MCV 79.9 L (80.0-100.0) fL BUN 23 H (7-17) mg/dL Microbiology - Last 24 Hours (Table) 12/26/17 18:21 Blood Culture - Preliminary Blood No Growth after 72 hours Assessment and Plan Assessment: 1. Acute exacerbation COPD with possible left lower lobe pneumonia, possibly gram-negative, in a patient with restrictive lung disease 2. History of CHF with chronic diastolic dysfunction 3. CAD 4. Degenerative joint disease 5. Morbid obesity 6. Anxiety, depression Plan: Continue on current medication regime ,monitoring and symptomatic treatment. Maintain IV antibiotics. Lasix as per pulmonary. PT/OT. Dietary consulted. Discharge planning in progress for tomorrow, discussed with patient. The impression and plan of care has been dictated as directed. : I performed a history and examination of this patient, discussed the same with the dictator. I agree with the dictator's note ,documented as a scribe. Any additional findings or plans will be noted.
--- NOTE | 2017-12-30 18:57 | P.PN ---
Subjective Progress Note Date: 12/30/17 This patient is a 67-year-old right-handed white female who was initially admitted to hospital for acute COPD exacerbation. Neurology was consulted yesterday for further evaluation of right hand tremor. Patient underwent a computed tomography scan of the brain yesterday as she has a known history of intracranial calcification in the past. Apparently this was detected on an MRI 2 or 3 years ago at in [place]. The patient underwent computed tomography scan of the brain yesterday which revealed stable findings of large calcified mass at the level of the pituitary gland. This was noted on previous examination done in September 2016. Measurement of 19 mm is unchanged from previous CAT scan done in 2017. There was also a anterior temporal calcification noted in the right middle cranial fossa. Given her hand tremors there was concern for possibility of partial seizures. She did undergo an EEG today which is reviewed and is entirely normal for her age with no epileptiform discharges. Patient does not show any evidence of tremors today. As noted her tremors are very nonspecific. These are likely benign tremors if at all symptomatic. She does not require specific medication at this time. We have recommended she follow up with her neurosurgeon regarding the calcified brain lesions. She was seen at and had seen a specialist there. We would recommend she scheduled for follow-up with them even though the CAT scan reveals no significant change in the size of these calcified mass lesion. The patient otherwise seems to be doing fairly well. She is being considered for possible discharge home tomorrow. Her COPD and left lower lobe pneumonia have improved. She denies any headache at this time. We will continue to follow her progress closely during this admission. Objective - Vital Signs Vital signs: Vital Signs Temp 98.5 F 12/30/17 15:00 Pulse 88 12/30/17 15:45 Resp 17 12/30/17 15:45 BP 100/58 12/30/17 15:00 Pulse Ox 100 12/30/17 15:00 Intake & Output 12/29/17 12/30/17 12/30/17 18:59 06:59 18:59 Intake Total 600 200 Output Total 1300 300 Balance -1300 600 -100 Weight 154 kg Intake: Oral 600 200 Output: Urine 1300 300 Other: Voiding Method Bedside Commode Bedside Commode # Voids 1 # Bowel Movements 1 - Exam Physical examination: PHYSICAL EXAMINATION: Patient is resting comfortably in bed. VITAL SIGNS: Blood pressure is [100/58]. Heart rate is [88]. Respiration is [17] . Temperature is [98.5]. HEENT: Head is atraumatic, neck is supple, there were no carotid bruits. CHEST: Lungs are clear to auscultation and percussion. CARDIAC: S1, S2 normal rate and rhythm. There is no murmur. ABDOMEN: Soft and nontender. Bowel sounds are present. EXTREMITIES: There is no pedal edema. Peripheral pulses are present. Neurological examination: Patient's neurological examination is unchanged from yesterday and remains nonfocal. She has no evidence of rest tremor versus tension hand tremors on exam today. - Labs CBC & Chem 7: 12/30/17 12:10 12/30/17 12:10 Labs: Abnormal Lab Results - Last 24 Hours (Table) 12/30/17 12/30/17 Range/Units 12:10 12:10 MCV 79.9 L (80.0-100.0) fL BUN 23 H (7-17) mg/dL Microbiology - Last 24 Hours (Table) 12/26/17 18:21 Blood Culture - Preliminary Blood No Growth after 72 hours Assessment and Plan (1) Tremor Current Visit: Yes Status: Acute Code(s): R25.1 - TREMOR, UNSPECIFIED SNOMED Code(s): 44142407 (2) COPD exacerbation Current Visit: Yes Status: Acute Code(s): J44.1 - CHRONIC OBSTRUCTIVE PULMONARY DISEASE W (ACUTE) EXACERBATION SNOMED Code(s): 169487966 (3) Pneumonia Current Visit: Yes Status: Acute Code(s): J18.9 - PNEUMONIA, UNSPECIFIED ORGANISM SNOMED Code(s): 480466419 (4) CHF exacerbation Current Visit: No Status: Acute Code(s): I50.9 - HEART FAILURE, UNSPECIFIED SNOMED Code(s): 07827072 Plan: This patient is a 67-year-old female who was admitted to hospital for acute COPD exacerbation. Neurology was consulted yesterday for evaluation of right hand tremor. She underwent a computed tomography scan of the brain yesterday which reveals stable calcified mass in the pituitary region. Routine EEG was performed today and was reviewed and is normal for age. There is no evidence to suggest underlying seizure disorder for this patient. She does not require any specific medication for her treatment of the benign tremor at this time. We will continue to follow her progress closely. We reviewed the results of the CAT scan and EEG in detail with the patient today. We recommend she follow up with her specialist at regarding the calcified brain lesion. Her overall prognosis at this time remains guarded.
[2017-12-30] MEDS ORDERED: VANCOMYCIN 2,000 MG in SODIUM CHLORIDE 0.9% 500 ML IVPB SCH (20:00)
[2017-12-30] MEDS: MELATONIN 3 MG TABLET PO SCH (20:44)
[2017-12-30] MEDS: PRAMIPEXOLE 0.25 MG TAB PO SCH (20:44)
[2017-12-31] MEDS ORDERED: MORPHINE SULFATE 2 MG/ML SYRINGE ONE (01:55)
[2017-12-31] MEDS: HYDROcodone/APAP 10-325MG 1 EACH TAB PO PRN ×3 (06:34→12:44)
[2017-12-31] MEDS: LEVOTHYROXINE 100 MCG TAB PO SCH (06:39)
[2017-12-31] MEDS: PIPERACILLIN-TAZOBACTAM 3.375 GM in DEXTROSE/WATER 1 50ML.BAG IVPB SCH (07:31)
[2017-12-31] MEDS: PANTOPRAZOLE 40 MG TABLET PO SCH (07:32)
[2017-12-31] MEDS: ENOXAPARIN 40 MG/0.4 ML SYRINGE SQ SCH (07:32)
[2017-12-31] MEDS: LORATADINE 10 MG TAB PO SCH (07:32)
[2017-12-31 07:35] VITALS: BP 128/74; PULSE 84; RESP 18; TEMP 98.9
[2017-12-31 08:05] LABS: Basophils % (A) 0 %; Eosinophils # (A) 0.3 k/uL (0-0.7); Eosinophils % (A) 4 %; HCT 37.2 % (34.0-46.0); Hypochromasia Slight; Lymphocytes # (A) 1.3 k/uL (1.0-4.8); Lymphocytes % (A) 19 %; MCH 26.5 pg (25.0-35.0); MCHC 32.3 g/dL (31.0-37.0); MCV 82.1 fL (80.0-100.0); Monocytes # (A) 0.5 k/uL (0-1.0); Monocytes % (A) 7 %; Neutrophils # (A) 4.5 k/uL (1.3-7.7); Neutrophils % (A) 68 %; Platelet Count 266 k/uL (150-450); RBC 4.53 m/uL (3.80-5.40); RDW 14.9 % (11.5-15.5); WBC 6.6 k/uL (3.8-10.6)
[2017-12-31 08:31] LABS: Calcium 8.4 mg/dL (8.4-10.2); Potassium 4.8 mmol/L (3.5-5.1)
[2017-12-31] MEDS: MORPHINE SULFATE 2 MG/ML SYRINGE IVP PRN (09:06)
[2017-12-31] MEDS ORDERED: MORPHINE ORAL SOLN 10 MG/5 ML CUP PO PRN (10:01)
--- NOTE | 2017-12-31 11:58 | P.DS ---
Providers Date of admission: 12/29/17 14:47 Expected date of discharge: 12/31/17 Attending physician: Desmond Cunningham Consults: 12/27/17 16:47 Consult Physician Routine Consulting Provider: Regan Shoemaker Consult Reason/Comments: pneumonia Do you want consulting provider notified?: Yes 12/28/17 11:58 Consult Physician Routine Consulting Provider: Alma Avery Consult Reason/Comments: intermittent tremor Do you want consulting provider notified?: Yes Primary care physician: [facility] Course: Final Diagnoses: 1. Acute exacerbation COPD.Pneumonia ruled out as per pulmonary, in a patient with restrictive lung disease 2. History of CHF with chronic diastolic dysfunction, E 55-60%. 3. CAD 4. Degenerative joint disease 5. Morbid obesity 6. Anxiety, depression 7. Stable Calcified Brain Lesion, to be followed with pts. own NeurologySpecialist at [place]. Hospital Course:This a 67-year-old female admitted with acute COPD exacerbation , possible left lower lobe pneumonia, restrictive lung disease and multiple other medical issues. Maintained on empiric antibiotic.Evaluated by pulmonary, pneumonia ruled out with no antibiotics at discharge rec. per pulmonary.Declined CT angiographically as well as VQ scan. Chest x-ray nonacute. Afebrile, normal WBC. Maintaining O2 sats in the mid 90s on room air. Denies chest pain, palpitations. Dietary consulted, patient declined.Evaluated by Neurology for evalutaion of nonspecific right hand tremors. Brain CT reported stable findings of large calcified mass at the level of the pituitary gland. This was noted on previous examination, unchanged. There was also a anterior temporal calcification noted in the right middle cranial fossa. EEG completed, reported as normal with no epileptiform discharges. Tremors resolved.Neurology recommends patient follows up with her own Neurologist/Specialist at [facility].PT/OT consulted, patient declined.Patient has been cleared for discharge by Pulmonary and Neurology.Patient is being discharged home in a stable condition with guarded prognosis. The impression and plan of care has been dictated as directed. : I performed a history and examination of this patient, discussed the same with the dictator. I agree with the dictator's note ,documented as a scribe. Any additional findings or plans will be noted. TIme taken :35min. Patient Condition at Discharge: Stable Plan - Discharge Summary Discharge Rx Participant: Yes New Discharge Prescriptions: New Loratadine [Claritin] 10 mg PO DAILY tab Continue Albuterol Nebulized [Ventolin Nebulized] 2.5 mg INHALATION RT-QID PRN PRN Reason: Shortness Of Breath Furosemide [Lasix] 40 mg PO DAILY PRN PRN Reason: Edema Omeprazole 20 mg PO BID Melatonin 6 mg PO HS Levothyroxine Sodium [Synthroid] 100 mcg PO DAILY Albuterol Inhaler [Ventolin Hfa Inhaler] 1 - 2 puff INHALATION RT-Q6H PRN PRN Reason: Shortness Of Breath Or Wheezing Pramipexole [Mirapex] 0.25 mg PO HS #30 tablet Hydrocodone/Acetaminophen [[place] 10-325] 2 tab PO Q6HR PRN #60 tablet PRN Reason: Pain Discharge Medication List Albuterol Nebulized [Ventolin Nebulized] 2.5 mg INHALATION RT-QID PRN 02/01/17 [ History] Furosemide [Lasix] 40 mg PO DAILY PRN 06/29/17 [History] Albuterol Inhaler [Ventolin Hfa Inhaler] 1 - 2 puff INHALATION RT-Q6H PRN [History] Levothyroxine Sodium [Synthroid] 100 mcg PO DAILY 11/10/17 [History] Melatonin 6 mg PO HS 11/10/17 [History] Omeprazole 20 mg PO BID 11/10/17 [History] Pramipexole [Mirapex] 0.25 mg PO HS #30 tablet 11/14/17 [Rx] Hydrocodone/Acetaminophen [[place] 10-325] 2 tab PO Q6HR PRN #60 tablet 12/04/17 [ Rx] Loratadine [Claritin] 10 mg PO DAILY tab 12/31/17 [Rx] Follow up Appointment(s)/Referral(s): Jorje Domingo MD [Primary Care Provider] - 3 Days Anne Will MD [STAFF PHYSICIAN] - 2 Weeks Activity/Diet/Wound Care/Special Instructions: No antibx. rec. per pulmonary.
--- NOTE | 2017-12-31 12:25 | P.PN ---
Subjective Progress Note Date: 12/31/17 Principal diagnosis: Probable left lower lobe pneumonia Consult dated 12/28/2017 67-year-old female who presented to the emergency department on December 26 and 1812 with complaints of shortness of breath. It apparently started the day prior to admission. In addition, the shortness of breath was primarily present with exertion not so much at rest. In addition, she complained of some bilateral lower extremity edema. She had a nonproductive cough. There is no fevers or chills. No nausea vomiting or diarrhea. She does have a long-standing history of congestive heart failure. In route from home, she was given breathing treatments by the EMS personnel. She was recently hospitalized about 6 weeks prior with a diagnosis of congestive heart failure "COPD" pneumonia and influenza. She is feeling a bit better. She is a lifelong nonsmoker. Denies any prior history of any lung disease per se. She states that she lived with a smoker. Denies any asthma emphysema or chronic bronchitis. Her past medical history includes angina, congestive heart failure, GI bleed, myocardial infarction, colitis, urinary incontinence, urinary tract infections, uterine cancer, upper GI bleed, hypothyroidism, kidney stones," Clostridium difficile colitis. On 12/29/2017 patient seen in follow-up on medical surgical floor, denies any worsening dyspnea, although remains very dyspneic with any exertion. She is still having some chest tightness with deep inspiration, particularly over left lower lung, and occasionally on the right side as well. She is being treated with a combination of Zosyn and vancomycin. She has a dry cough, and is not able to expectorate any sputum. She is receiving oral diuretics on as-needed basis, she has chronic lower extremity swelling. She is on room air, and her pulse ox is 94%, she is afebrile, denies any fever or chills. Blood culture has been negative at the 48 hour joe, lab work has been negative for any evidence of leukocytosis, electrolytes are within normal limits, BUN is 19, creatinine is 0.79, no acute events overnight, continue with current plan of treatment. On 12/30/2017 patient seen in follow-up on medical surgical floor. She is complaining of ongoing dyspnea, worse with exertion. Still complaining of some chest tightness exacerbated by deep inspiration particularly over left lower chest wall area. Today's chest x-ray has been reviewed by Dr. Will and showed no acute pulmonary process, the lungs are clear, no suspicious infiltrate at the left base. Work has been negative for any evidence of leukocytosis, patient has been afebrile, denies any fever or chills, she is on room air, with a pulse ox of 95%, lung sounds are clear to auscultation. Patient in the past has had marginally elevated d-dimer, nonspecific, the most recent one on 12/02/2017 at 1.82. Patient has ALLERGIES to IV contrast, and has been refusing CT angiography, and refusing VQ scan stating that she is unable to lay flat for the test. Patient has been receiving Lasix on an as- needed basis chronic lower extremity edema, and she states her weight has been fluctuating significantly. Looking back at her previous admission weight it appears that she had a significant weight increase since her last admission from 138.4 kg on 12/04/2017 to 154.2 kg on 12/26/2017, of around 5.8 kg in less than a month. Patient has been quite cautious about taking diuretics on the regular basis related to a previous episode of dehydration, and acute injury. She seems quite frustrated with a lack of definitive reason for her ongoing shortness of breath. It was explained to her patient's it creates her inability and to undergo certain testing. For now will continue current antibiotic coverage, however there has been no evidence to support the bacterial pneumonia diagnosis. On 12/31/2017 patient remains stable from pulmonary standpoint, although continues to complain of exertional dyspnea. We gave the patient 1 dose of IV Lasix yesterday, patient states she has been diuresing, but but she still complains of shortness of breath. Patient is seen resting in bed, in no acute distress at rest, room air pulse ox is 97%, vital signs are stable, patient has been afebrile, lung sounds are clear. Yesterday's chest x-ray was normal, no evidence of infiltrates, no evidence of congestive heart failure, pleural effusion or atelectasis. Patient has been unable to undergo CT angiography related to her contrast ALLERGY, and refusing VQ scan because she is unable to lie flat. She has been treated empirically with combination of vancomycin and Zosyn, she has had no evidence of leukocytosis, no chest congestion no sputum production. Yesterday's chest x-ray ruled out pneumonia, today we will discontinue the antibiotics, is stable for discharge home. She does not want to follow with pulmonary service after discharge, and the patient can follow with her primary care provider. Objective - Vital Signs Vital signs: Vital Signs Temp 98.9 F 12/31/17 07:35 Pulse 84 12/31/17 07:35 Resp 18 12/31/17 07:35 BP 128/74 12/31/17 07:35 Pulse Ox 97 12/31/17 07:35 Intake & Output 12/30/17 12/31/17 12/31/17 18:59 06:59 18:59 Intake Total 200 550 50 Output Total 300 300 Balance -100 550 -250 Weight 154 kg 154 kg 154 kg Intake: Intake, IV Titration 550 50 Amount Piperacillin-Tazobactam 3 50 50 .375 gm In Dextrose/Water 1 50ml.bag @ 12.5 mls/hr IVPB Q8HR BRETT Rx#: [id number] Vancomycin 2,000 mg In 500 Sodium Chloride 0.9% 500 ml @ 167 mls/hr IVPB Q16H BRETT Rx#:[id number] Oral 200 Output: Urine 300 300 Other: Voiding Method Bedside Commode Bedside Commode Bedside Commode # Voids 1 1 # Bowel Movements 2 2 - Exam 67-year-old morbidly obese white female, no acute distress, oriented 3. HEENT examination is grossly unremarkable. Mucous membranes are moist. No oral lesions. Neck supple. Full range of motion. No adenopathy or thyromegaly. Neck veins are flat. Cardiovascular examination reveals regular rhythm rate. S1-S2 normal. No S3- S4 or murmur. Heart sounds are distant. Lungs reveal clear breath sounds bilaterally. No wheezes. No crackles. Air exchange is reasonable. Abdomen obese. Bowel sounds are heard. No masses or tenderness. Extremities are intact. No cyanosis or clubbing. Slight edema is noted in the lower extremities. Skin without rash. Neurologic examination is prepared nonfocal. - Labs CBC & Chem 7: 12/31/17 07:42 12/31/17 07:42 Labs: Abnormal Lab Results - Last 24 Hours (Table) 12/30/17 12/30/17 12/31/17 Range/Units 12:10 12:10 07:42 MCV 79.9 L (80.0-100.0) fL BUN 23 H 23 H (7-17) mg/dL Microbiology - Last 24 Hours (Table) 12/26/17 18:21 Blood Culture - Preliminary Blood No Growth after 96 hours Assessment and Plan Plan: Assessment: Probable left lower lobe pneumonia, ruled out. Yesterday's chest x-ray showed no evidence of left lower lobe infiltrate, there has been no fever, no chest congestion no sputum production, no leukocytosis, or no other evidence to support a diagnosis of bacterial pneumonia. Exertional dyspnea, possibly related to deconditioning Recent hospitalization for COPD exacerbation and influenza tracheobronchitis Morbid obesity Medical noncompliance History of diastolic CHF History of GI bleed. Pneumonia by history History of colitis. Hypothyroidism Insomnia GERD Multiple other medical problems and comorbidities Plan: Plan dated 12/28/2017 The patient seemed be doing relatively well. Steroids were discontinued. She is not bronchospastic and she is a lifelong nonsmoker. We will review the medications. Additional recommendations suggestions are forthcoming. We'll make sure that she's got breathing treatments ordered. Plan dated 12/29/2017 Patient still complaining of some tightness in her chest, and some chest wall discomfort exacerbated by coughing and deep breathing. No fever, no chills, vital signs are stable, no chest congestio or phlegm production. Patient continues on empiric antibiotic coverage in the form of Zosyn and vancomycin. Continue monitoring fever pattern, continue monitoring labs. GI and DVT prophylaxis, nebulized treatments. We'll repeat chest x-ray in the morning Plan dated 12/30/2017 We'll give the patient a dose of IV Lasix, came back at her previous admission there has been of 15.8 low weight increase in less than a month, it is possible that her dyspnea is related to fluid overload. Chest x-ray has been reviewed by Dr. Will, and showed no acute pulmonary process, no infiltrate, no pulmonary edema, no pleural effusion, no atelectasis. Patient remains afebrile , no fever or chills, we'll continue current antibiotic coverage for another 24 hours, so far there has been no evidence to substantiate the bacterial pneumonia diagnosis. Unfortunately patient is unable to undergo CTA chest or VQ scan due to her inability to have IV contrast or lie flat for the exam. Continue to follow Plan dated 12/31/2017 Patient states despite the empiric antibiotics, and diuresis he does not feel better, and she still remains dyspneic with exertion. So far there has been no evidence to support a diagnosis of bacterial pneumonia, there has been no fever or chills, no chest congestion or sputum production, no leukocytosis. We will discontinue the vancomycin and Zosyn, patient remains stable, no acute events overnight, increase activity as tolerated. She is maintaining good oxygenation on room air, denies any fever or chills, denies any chest pain. Her exertional dyspnea may be related to her overall deconditioning. Patient is stable for discharge home today. Patient does not wish to follow with pulmonary service, he can follow up with her primary care provider. I performed a history & physical examination of the patient and discussed their management with my nurse practitioner, Sahra Hendricks. I reviewed the nurse practitioner's note and agree with the documented findings and plan of care. Lung sounds are clear breath sounds. The findings and the impression was discussed with the patient. I attest to the documentation by the nurse practitioner. Time with Patient: Less than 30
== END 2017-12-31 15:54 | disposition home or self-care (01) | DRG 191 ==
LOC: EC 18:03 → 4MS4W 20:18 → OBSVTOIN 12-28 12:19 → INTOOBSV 12-28 12:19 → OBSVTOIN 12-29 14:47 → 4MS4W 12-30 09:36
PROVIDERS: ADMIT Internal Medicine; ATTEND Internal Medicine
DX: J44.1 Chronic obstructive pulmonary disease with (acute) exacerbation (principal); I50.32 Chronic diastolic (congestive) heart failure; I11.0 Hypertensive heart disease with heart failure; E03.9 Hypothyroidism, unspecified; E66.01 Morbid (severe) obesity due to excess calories; F32.9 Major depressive disorder, single episode, unspecified; F40.240 Claustrophobia; G47.00 Insomnia, unspecified; G89.29 Other chronic pain; G93.9 Disorder of brain, unspecified; I25.10 Atherosclerotic heart disease of native coronary artery without angina pectoris; I25.2 Old myocardial infarction; J98.4 Other disorders of lung; K21.9 Gastro-esophageal reflux disease without esophagitis; K58.9 Irritable bowel syndrome, unspecified; M13.0 Polyarthritis, unspecified; M46.90 Unspecified inflammatory spondylopathy, site unspecified; F41.9 Anxiety disorder, unspecified; L30.9 Dermatitis, unspecified; M51.24 Other intervertebral disc displacement, thoracic region; R32 Unspecified urinary incontinence; M54.9 Dorsalgia, unspecified; R25.1 Tremor, unspecified; M51.37 Other intervertebral disc degeneration, lumbosacral region; Z85.038 Personal history of other malignant neoplasm of large intestine; Z85.42 Personal history of malignant neoplasm of other parts of uterus; Z86.19 Personal history of other infectious and parasitic diseases; Z87.01 Personal history of pneumonia (recurrent); Z87.442 Personal history of urinary calculi; Z90.49 Acquired absence of other specified parts of digestive tract; Z90.710 Acquired absence of both cervix and uterus; Z91.19 Patient's noncompliance with other medical treatment and regimen; Z79.890 Hormone replacement therapy; Z79.899 Other long term (current) drug therapy; Z88.5 Allergy status to narcotic agent; Z88.6 Allergy status to analgesic agent; Z91.041 Radiographic dye allergy status; Z88.8 Allergy status to other drugs, medicaments and biological substances; Z87.440 Personal history of urinary (tract) infections; Z87.11 Personal history of peptic ulcer disease; Z96.642 Presence of left artificial hip joint; Z96.651 Presence of right artificial knee joint; Z80.1 Family history of malignant neoplasm of trachea, bronchus and lung; Z82.3 Family history of stroke; Z82.49 Family history of ischemic heart disease and other diseases of the circulatory system; Z80.52 Family history of malignant neoplasm of bladder; Z84.89 Family history of other specified conditions
CPT/HCPCS: 36415; 70450; 71046; 80048; 80053; 80202; 81001; 82550; 82553; 83880; 84484; 85025; 85610; 85730; 87040; 93005; 94640; 95816; 96374; 96375; 99285

== ENCOUNTER 2018-01-04 19:05 | Observation (INO) | payer MEDICARE, OTHER ==
[2018-01-04] MEDS ORDERED: IPRATROPIUM-ALBUTEROL 3 ML NEB INHALATION STA (20:05)
[2018-01-04] MEDS ORDERED: NITROGLYCERIN OINT 1 INCH/GM PACKET TOPICAL STA (20:05)
[2018-01-04] MEDS ORDERED: MORPHINE SULFATE 2 MG/ML SYRINGE IVP STA (20:07)
[2018-01-04] MEDS ORDERED: ONDANSETRON 4 MG/2 ML VIAL IVP STA (20:08)
[2018-01-04] MEDS ORDERED: ASPIRIN 81 MG PO STA (20:08)
[2018-01-04 20:17] LABS: Basophils % (A) 0 %; Eosinophils # (A) 0.3 k/uL (0-0.7); Eosinophils % (A) 3 %; HCT 35.5 % (34.0-46.0); HGB 11.4 gm/dL (11.4-16.0); Lymphocytes # (A) 1.3 k/uL (1.0-4.8); Lymphocytes % (A) 13 %; MCH 25.6 pg (25.0-35.0); MCHC 32.2 g/dL (31.0-37.0); MCV 79.3 fL (80.0-100.0); Mean Platelet Volume 6.6; Monocytes # (A) 0.6 k/uL (0-1.0); Monocytes % (A) 6 %; Neutrophils # (A) 8.2 k/uL (1.3-7.7); Neutrophils % (A) 78 %; Platelet Count 393 k/uL (150-450); RBC 4.47 m/uL (3.80-5.40); RDW 14.8 % (11.5-15.5); WBC 10.5 k/uL (3.8-10.6)
[2018-01-04 20:26] LABS: ALT 32 U/L (9-52); AST 17 U/L (14-36); Albumin 3.8 g/dL (3.5-5.0); Alkaline Phosphatase 106 U/L (38-126); Anion Gap 13 mmol/L; Blood Urea Nitrogen 14 mg/dL (7-17); Calcium 9.5 mg/dL (8.4-10.2); Carbon Dioxide 24 mmol/L (22-30); Chloride 105 mmol/L (98-107); Glucose 107 mg/dL (74-99); Potassium 4.1 mmol/L (3.5-5.1); Sodium 142 mmol/L (137-145); Total Bilirubin 0.3 mg/dL (0.2-1.3); Total Protein 6.3 g/dL (6.3-8.2)
[2018-01-04 20:28] LABS: Creatine Kinase 22 U/L (30-135)
[2018-01-04 20:41] LABS: Creatine Kinase MB 0.4 ng/mL (0.0-2.4); Prothrombin Time 9.8 sec (9.0-12.0); Troponin I <0.012 ng/mL (0.000-0.034)
--- NOTE | 2018-01-04 21:09 | XR ---
EXAMINATION: XR chest 2V DATE AND TIME: 01/04/2018 8:44 PM ORDERING PROVIDER: Regan Johnson CLINICAL INDICATION: difficulty breathing TECHNIQUE: PA and lateral COMPARISON: 12/30/2017 DESCRIPTION: The overlying soft tissues are very prominent. The radiograph is rotated RPO. There is consolidative opacity in the left lower lobe seen on both the frontal and lateral radiograph s, consistent with bronchopneumonia. Cardiac silhouette is mildly enlarged, appearing stable. Aortic ectasia noted, also appearing stable given the differences in technique. No acute skeletal or soft tissue findings are evident. IMPRESSION: RADIOGRAPHIC EVIDENCE OF LEFT LOWER LOBE BRONCHOPNEUMONIA. Would suggest six-week posttreatment follo w-up radiographs to prove resolution of the findings.
[2018-01-04] MEDS ORDERED: ACETAMINOPHEN IV (For NPO) 1,000 MG in EMPTY BAG 1 BAG IVPB ONE (22:15)
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
[2018-01-04] MEDS ORDERED: PIPERACILLIN-TAZOBACTAM 3.375 GM in DEXTROSE/WATER 1 50ML.BAG IVPB STA (22:52)
[2018-01-04] MEDS ORDERED: VANCOMYCIN IV PER PHARMACY 1 EACH MISC MISCELLANE PRN (22:52)
[2018-01-04] MEDS ORDERED: HYDROcodone/APAP 10-325MG 1 EACH TAB PO ONE (22:53)
[2018-01-04] MEDS ORDERED: PNEUMONIA PROTOCOL UTILIZED 1 EACH MISC PO PRN (22:59)
[2018-01-04] MEDS ORDERED: IPRATROPIUM-ALBUTEROL 3 ML NEB INHALATION PRN (22:59)
[2018-01-04] MEDS ORDERED: VANCOMYCIN 2,250 MG in SODIUM CHLORIDE 0.9% 500 ML IVPB STA (23:00)
[2018-01-04] MEDS ORDERED: HYDROcodone/APAP 10-325MG 1 EACH TAB PO PRN (23:01)
[2018-01-04] MEDS ORDERED: FUROSEMIDE 40 MG TAB PO PRN (23:01)
[2018-01-05] MEDS: PIPERACILLIN-TAZOBACTAM 3.375 GM in DEXTROSE/WATER 1 50ML.BAG IVPB SCH ×4 (00:24→23:30)
[2018-01-05 00:56] VITALS: BMI 60.2
[2018-01-05] MEDS: MELATONIN 3 MG TABLET PO SCH ×2 (01:08→20:07)
[2018-01-05] MEDS: methylPREDNISolone SOD SUCCI 125 MG/2 ML VIAL IV SCH ×5 (01:08→21:31)
[2018-01-05] MEDS: PRAMIPEXOLE 0.25 MG TAB PO SCH ×2 (01:08→20:07)
[2018-01-05] MEDS ORDERED: MORPHINE SULFATE 2 MG/ML SYRINGE IVP ONE (02:49)
[2018-01-05] MEDS: LEVOTHYROXINE 100 MCG TAB PO SCH (05:36)
[2018-01-05 07:14] LABS: Glucose,Whole Blood 175 mg/dL (75-99)
[2018-01-05] MEDS: ENOXAPARIN 40 MG/0.4 ML SYRINGE SQ SCH (08:17)
[2018-01-05] MEDS: PANTOPRAZOLE 40 MG TABLET PO SCH ×2 (08:17→20:07)
[2018-01-05] MEDS ORDERED: HYDROcodone/APAP 10-325MG 1 EACH TAB PO ONE (10:01)
--- NOTE | 2018-01-05 12:05 | CT ---
EXAMINATION TYPE: CT chest wo con DATE OF EXAM: 01/05/2018 COMPARISON: 12/04/2017 HISTORY: Pneumonia CT DLP: 833 mGycm, Automated exposure control for dose reduction was used. CONTRAST: Performed injected with 0 mL of Isovue 370. TECHNIQUE: Axial images were obtained at 5 mm thick sections. Reconstructed images are reviewed on Xray [employer] computer in the coronal plane. FINDINGS: Portion of the thyroid visualized is normal. No suspicious lung nodules or focal infiltrates are present. There is a retroesophageal right subclavian artery. No enlarged mediastinal or hilar adenopathy is evident. [place] lymphadenopathy is at the level the lety and pretracheal space. The ascending aorta diameter at the level of the main pulmonary artery is 3.5 cm. The main pulmonary artery diameter at the bifurcation is 2.6 cm. Coronary artery calcific ations present. Limited CT sections are obtained through the upper abdomen. Abdomen is essentially unremarkable. IMPRESSIONS: 1. No acute cardio pulmonary process by CT.
[2018-01-05 12:11] LABS: Glucose,Whole Blood 195 mg/dL (75-99)
[2018-01-05] MEDS: HYDROcodone/APAP 10-325MG 1 EACH TAB PO PRN ×2 (14:44→20:07)
[2018-01-05 16:51] LABS: Glucose,Whole Blood 209 mg/dL (75-99)
[2018-01-05] MEDS ORDERED: VANCOMYCIN 2,250 MG in SODIUM CHLORIDE 0.9% 500 ML IVPB SCH (17:00)
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
[2018-01-05 20:37] LABS: Glucose,Whole Blood 152 mg/dL (75-99)
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
[2018-01-06] MEDS: HYDROcodone/APAP 10-325MG 1 EACH TAB PO PRN ×5 (00:46→20:52)
[2018-01-06] MEDS ORDERED: ONDANSETRON 4 MG/2 ML VIAL IVP PRN (01:55)
[2018-01-06] MEDS: LEVOTHYROXINE 100 MCG TAB PO SCH (05:09)
[2018-01-06 07:10] LABS: Glucose,Whole Blood 147 mg/dL (75-99)
[2018-01-06] MEDS: methylPREDNISolone SOD SUCCI 125 MG/2 ML VIAL IV SCH ×4 (08:29→20:50)
[2018-01-06] MEDS: PANTOPRAZOLE 40 MG TABLET PO SCH ×2 (08:30→20:50)
[2018-01-06] MEDS: DOXYCYCLINE MONOHYDRATE 100 MG CAPSULE PO SCH ×2 (08:30→20:50)
[2018-01-06] MEDS: ENOXAPARIN 40 MG/0.4 ML SYRINGE SQ SCH (08:30)
[2018-01-06] MEDS ORDERED: DOXYCYCLINE 50 MG CAP PO SCH (09:00)
[2018-01-06 12:07] LABS: Glucose,Whole Blood 139 mg/dL (75-99)
--- NOTE | 2018-01-06 16:00 | P.PN ---
Subjective Progress Note Date: 01/06/18 Principal diagnosis: Acute COPD exacerbation, suspect component of ALLERGIC asthma and chronic asthma , sleep disorder breathing and sleep apnea, congestive heart failure likely acute on chronic diastolic heart failure, severe morbid obesity, coronary artery disease, restless leg syndrome, hypothyroidism 01/06/2018, patient seen eval examined clinically she is doing slightly better cough congestion and wheezing and improved significantly patient remains on IV steroids tolerating very well as well as on breathing treatments she has been taken off of the broad-spectrum antibiotics, labs reviewed medications reviewed currently patient is on doxycycline 100 mg daily with breathing treatments she is still feeling short of breath however denies any chest pain, computed tomography scan finding reviewed with the patient C7-year-old morbidly obese female without any significant history of smoking and nicotine use has a history of the influenza and pneumonia and respiratory failure back in the November 2017 followed by an episode of pneumonia and later part of December 2017 patient was discharged from the hospital and end of last month on oral steroids and antibiotic did well for a few days however in the last 1-2 day felt that shortness of breath is coming back with increased cough congestion unable to produce any sputum came into the hospital for further evaluation patient underwent a chest x-ray which revealed patchy left-sided infiltrate however a computed tomography scan of the chest was performed earlier this morning which I reviewed it no obvious infiltrate identified which is not dry nonproductive Ammann on specific questioning denies any seizure-like to a loss of consciousness) denies any weakness in any part of the body but does have generalized weakness, denies any chest pain left-sided radiation of pain some tightness in the center part of the chest was present at time of arrival however resolved now, denies any hemoptysis denies any thick purulent sputum production, denies any bowel or bladder dysfunction, patient has been suspected in past to have sleep apnea in the past however she refused Sleep study as she cannot use the CPAP machine. Objective - Vital Signs Vital signs: Vital Signs Temp 97.0 F L 01/06/18 15:16 Pulse 64 01/06/18 15:16 Resp 18 01/06/18 15:16 BP 150/73 01/06/18 15:16 Pulse Ox 99 01/06/18 15:16 Intake & Output 01/05/18 01/06/18 01/06/18 18:59 06:59 18:59 Intake Total 300 Balance 300 Intake: IV 300 Piperacillin-Tazobactam 3 50 .375 gm In Dextrose/Water 1 50ml.bag @ 12.5 mls/hr IVPB ONCE STA Rx#: [id number] Vancomycin 2,250 mg In 250 Sodium Chloride 0.9% 500 ml @ 167 mls/hr IVPB Q16H [facility] Rx#:[id number] Other: # Voids 1 1 # Bowel Movements 0 - Exam - Constitutional General appearance: disheveled, morbidly obese, no acute distress - EENT Eyes: anicteric sclerae, EOMI, PERRLA, normal appearance ENT: normal oropharynx Ears: bilateral: normal - Neck Neck: normal ROM Carotids: bilateral: upstroke normal, bruit absent - Respiratory Respiratory: bilateral: diminished, prolonged expiration, negative: dullness, rales, rhonchi, wheezing - Cardiovascular Heart sounds: normal: S1, S2 - Gastrointestinal General gastrointestinal: decreased bowel sounds, soft - Integumentary Integumentary: normal, normal turgor - Neurologic Neurologic: CNII-XII intact - Musculoskeletal Musculoskeletal: gait normal, generalized weakness, strength equal bilaterally - Psychiatric Psychiatric: A&O x's 3, appropriate affect, intact judgment & insight - Labs CBC & Chem 7: 01/04/18 19:25 01/04/18 19:25 Labs: Abnormal Lab Results - Last 24 Hours (Table) 01/05/18 01/05/18 01/06/18 Range/Units 16:48 20:27 07:00 POC Glucose (mg/dL) 209 H 152 H 147 H (75-99) mg/dL 01/06/18 Range/Units 12:00 POC Glucose (mg/dL) 139 H (75-99) mg/dL Microbiology - Last 24 Hours (Table) 01/04/18 19:25 Blood Culture - Preliminary Blood No Growth after 24 hours Assessment and Plan Assessment: Acute asthma exacerbation Tracheobronchitis acute Acute COPD exacerbation Suspect chronic moderate to severe persistent asthma History of prior pneumonia and influenza and pneumonia History of coronary artery disease with stent placement Computed tomography scan of the chest failed to reveal any significant infiltrate or pneumonia Morbid obesity suspect component of obstructive sleep apnea with very well have obesity hypoventilation as well Restless leg syndrome Hypothyroidism Plan: Agree with IV steroids, can be switched to oral at the time of discharge Gentle rehydration as tolerated Continue breathing treatments Can DC Vanco and Zosyn simple antibiotics like doxycycline 100 mg by mouth 2 times a day for 5-7 days Increase activity as tolerated DVT and peptic ulcer disease prophylaxis Further recommendations pending plan of care as per clinical response of the patient Time with Patient: Greater than 30
[2018-01-06 17:07] LABS: Glucose,Whole Blood 178 mg/dL (75-99)
[2018-01-06] MEDS: PRAMIPEXOLE 0.25 MG TAB PO SCH (20:50)
[2018-01-06] MEDS: MELATONIN 3 MG TABLET PO SCH (20:50)
[2018-01-06 21:54] LABS: Glucose,Whole Blood 150 mg/dL (75-99)
--- NOTE | 2018-01-06 23:40 | P.PN ---
Subjective Progress Note Date: 01/06/18 Principal diagnosis: Acute asthma exacerbation Patient is a 67-year-old female with a known history of smoking, history of influenza and pneumonia in November 2017, recent admission with COPD exacerbation and was discharged on 12/31/2017 came back to the hospital with worsening shortness of breath. Patient also has history of coronary artery disease and stent placement, colitis, IBS, urinary incontinence, uterine cancer with surgery , severe peptic/esophageal ulcer, prolapsed.heart valve, chronic back pain and herniated disc at multiple levels, fracture of the stepmom 2 and chronic sternal pain, hypothyroidism, bilateral lower extremity swelling and osteoarthritis and multiple other medical problems. Patient says that for the last 1-2 days patient felt very short of breath along with increased cough and congestion and was also noted have lips turning blue. Patient came back to the hospital for further evaluation. Patient does have cough without sputum production. Patient felt chest tightness. Denied any nausea vomiting or abdominal pain. Patient felt cold and clammy but denied any fever. No diarrhea. Chest x-ray showed patchy left-sided infiltrate/pneumonia. CT chest did not show any evidence of pneumonia. No acute process was noted in the CT. Pulmonary was consulted for further evaluation. 01/06/2018 Patient's breathing status is improved today. Otherwise no complaints of chest pain. Patient is being continued on IV steroids and breathing treatments and antibiotics have been changed to doxycycline by mouth for tracheal bronchitis. No rales and pneumonia on CT chest. Pulmonary is following. Anticipate discharge next 24 hours with more clinical improvement. All other review of systems negative except the above Current medications reviewed Objective - Vital Signs Vital signs: Vital Signs Temp 97.0 F L 01/06/18 15:16 Pulse 64 01/06/18 15:16 Resp 18 01/06/18 15:16 BP 150/73 01/06/18 15:16 Pulse Ox 94 L 01/06/18 18:04 Intake & Output 01/06/18 01/06/18 01/07/18 06:59 18:59 06:59 Other: # Voids 1 1 0 # Bowel Movements 0 0 - Exam PHYSICAL EXAMINATION: Patient is lying in the bed comfortably, no acute distress, awake alert and oriented. Morbidly obese. HEENT: Normocephalic. Neck is supple. Pupils reactive. Nostrils clear. Oral cavity is moist. Ears reveal no drainage. Neck reveals no JVD, carotid bruits, or thyromegaly. CHEST EXAMINATION: Trachea is central. Symmetrical expansion. Bilateral air entry improved with minimal expiratory wheeze. CARDIAC: Normal S1, S2 with no gallops. No murmurs ABDOMEN: Soft. Bowel sounds normal. No organomegaly. No abdominal bruits. Extremities: reveal no edema. No clubbing or cyanosis Neurologically awake, alert, oriented x3 with well-coordinated movements. No focal deficits noted Skin: No rash or skin lesions. Psychiatric: Coperative. Nonsuicidal Musculoskeletal: No joint swelling or deformity. Normal range of motion. - Labs CBC & Chem 7: 01/04/18 19:25 01/04/18 19:25 Labs: Abnormal Lab Results - Last 24 Hours (Table) 01/06/18 01/06/18 01/06/18 Range/Units 07:00 12:00 16:55 POC Glucose (mg/dL) 147 H 139 H 178 H (75-99) mg/dL 01/06/18 Range/Units 21:50 POC Glucose (mg/dL) 150 H (75-99) mg/dL Microbiology - Last 24 Hours (Table) 01/04/18 19:25 Blood Culture - Preliminary Blood No Growth after 24 hours Assessment and Plan Assessment: Shortness of breath multifactorial secondary to acute asthma/COPD exacerbation likely due to tracheobronchitis along with morbid obesity/obesity hypoventilation. No evidence of pneumonia as per CT. History of influenza and pneumonia in early this year Hypothyroidism Restless leg syndrome History of coronary disease with stent placement 2 Degenerative joint disease Chronic CHF with diastolic dysfunction ejection fraction 55-60% Anxiety and depression Morbid obesity BMI 55 Stable calcified brain lesion. Follow-up with her neurologist at [facility] DVT prophylaxis Plan: Patient will be continued on IV steroids and breathing treatments and was started on antibiotics in the form of vancomycin and Zosyn in the ER. Antibiotics changed to to doxycycline as per pulmonary recommendations. Continue the home medications and follow up closely. No evidence of pneumonia and the CT chest. Further recommendations based on the clinical course. Discussed with the patient in detail. Prognosis is guarded. Time with Patient: Greater than 30
[2018-01-07 00:41] VITALS: RESP 20
[2018-01-07] MEDS: HYDROcodone/APAP 10-325MG 1 EACH TAB PO PRN ×3 (00:42→14:20)
[2018-01-07] MEDS: MORPHINE SULFATE 2 MG/ML SYRINGE IVP PRN ×3 (01:33→10:24)
[2018-01-07] MEDS: LEVOTHYROXINE 100 MCG TAB PO SCH (06:08)
[2018-01-07 07:30] LABS: Glucose,Whole Blood 134 mg/dL (75-99)
[2018-01-07] MEDS: methylPREDNISolone SOD SUCCI 125 MG/2 ML VIAL IV SCH (08:10)
[2018-01-07] MEDS: DOXYCYCLINE MONOHYDRATE 100 MG CAPSULE PO SCH (08:11)
[2018-01-07] MEDS: PANTOPRAZOLE 40 MG TABLET PO SCH (08:11)
[2018-01-07] MEDS: ENOXAPARIN 40 MG/0.4 ML SYRINGE SQ SCH (08:11)
[2018-01-07 11:40] LABS: Glucose,Whole Blood 182 mg/dL (75-99)
[2018-01-07] MEDS ORDERED: predniSONE 50 MG TAB PO SCH (12:00)
--- NOTE | 2018-01-07 14:16 | P.PN ---
Subjective Progress Note Date: 01/07/18 Principal diagnosis: Acute COPD exacerbation, COPD mild to moderate suspect component of ALLERGIC asthma and chronic asthma, sleep disorder breathing and sleep apnea, congestive heart failure likely acute on chronic diastolic heart failure, severe morbid obesity, coronary artery disease, restless leg syndrome, hypothyroidism 01/07/2018, patient seen eval examined during the rounds clinically patient is doing slightly better and denies any wheezing cuff congestion breathing more comfortably findings on the x-ray as well as CAT scan has been reviewed with the patient at length patient is likely being discharged later on today has recommended follow-ups for further evaluation can be performed on patient setting 01/06/2018, patient seen eval examined clinically she is doing slightly better cough congestion and wheezing and improved significantly patient remains on IV steroids tolerating very well as well as on breathing treatments she has been taken off of the broad-spectrum antibiotics, labs reviewed medications reviewed currently patient is on doxycycline 100 mg daily with breathing treatments she is still feeling short of breath however denies any chest pain, computed tomography scan finding reviewed with the patient C7-year-old morbidly obese female without any significant history of smoking and nicotine use has a history of the influenza and pneumonia and respiratory failure back in the November 2017 followed by an episode of pneumonia and later part of December 2017 patient was discharged from the hospital and end of last month on oral steroids and antibiotic did well for a few days however in the last 1-2 day felt that shortness of breath is coming back with increased cough congestion unable to produce any sputum came into the hospital for further evaluation patient underwent a chest x-ray which revealed patchy left-sided infiltrate however a computed tomography scan of the chest was performed earlier this morning which I reviewed it no obvious infiltrate identified which is not dry nonproductive Ammann on specific questioning denies any seizure-like to a loss of consciousness) denies any weakness in any part of the body but does have generalized weakness, denies any chest pain left-sided radiation of pain some tightness in the center part of the chest was present at time of arrival however resolved now, denies any hemoptysis denies any thick purulent sputum production, denies any bowel or bladder dysfunction, patient has been suspected in past to have sleep apnea in the past however she refused Sleep study as she cannot use the CPAP machine. Objective - Vital Signs Vital signs: Vital Signs Temp 97 F L 01/07/18 06:15 Pulse 76 01/07/18 06:15 Resp 20 01/07/18 06:15 BP 149/96 01/07/18 06:15 Pulse Ox 94 L 01/07/18 06:15 Intake & Output 01/06/18 01/07/18 01/07/18 18:59 06:59 18:59 Intake Total 1000 600 Balance 1000 600 Weight 155 kg Intake: Oral 1000 600 Other: # Voids 1 2 2 # Bowel Movements 0 0 - Exam - Constitutional General appearance: disheveled, morbidly obese, no acute distress - EENT Eyes: anicteric sclerae, EOMI, PERRLA, normal appearance ENT: normal oropharynx Ears: bilateral: normal - Neck Neck: normal ROM Carotids: bilateral: upstroke normal, bruit absent - Respiratory Respiratory: bilateral: diminished, prolonged expiration, negative: dullness, rales, rhonchi, wheezing - Cardiovascular Heart sounds: normal: S1, S2 - Gastrointestinal General gastrointestinal: decreased bowel sounds, soft - Integumentary Integumentary: normal, normal turgor - Neurologic Neurologic: CNII-XII intact - Musculoskeletal Musculoskeletal: gait normal, generalized weakness, strength equal bilaterally - Psychiatric Psychiatric: A&O x's 3, appropriate affect, intact judgment & insight - Labs CBC & Chem 7: 01/04/18 19:25 01/04/18 19:25 Labs: Abnormal Lab Results - Last 24 Hours (Table) 01/06/18 01/06/18 01/07/18 Range/Units 16:55 21:50 07:20 POC Glucose (mg/dL) 178 H 150 H 134 H (75-99) mg/dL 01/07/18 Range/Units 11:37 POC Glucose (mg/dL) 182 H (75-99) mg/dL Microbiology - Last 24 Hours (Table) 01/04/18 19:25 Blood Culture - Preliminary Blood No Growth after 48 hours Assessment and Plan Assessment: Acute asthma exacerbation Tracheobronchitis acute Acute COPD exacerbation Acute exacerbation of CHF likely related to acute on chronic diastolic heart failure Suspect chronic moderate to severe persistent asthma History of prior pneumonia and influenza and pneumonia History of coronary artery disease with stent placement Computed tomography scan of the chest failed to reveal any significant infiltrate or pneumonia Morbid obesity suspect component of obstructive sleep apnea with very well have obesity hypoventilation as well Restless leg syndrome Hypothyroidism Plan: Agree with IV steroids, can be switched to oral at the time of discharge Gentle rehydration as tolerated Continue breathing treatments Continue doxycycline 100 mg by mouth 2 times a day for 5-7 days Increase activity as tolerated DVT and peptic ulcer disease prophylaxis Further recommendations pending plan of care as per clinical response of the patient Time with Patient: Greater than 30
[2018-01-07 15:33] VITALS: BP 146/64; PULSE 74; TEMP 97.6
--- NOTE | 2018-01-17 22:58 | P.DS ---
Providers Date of admission: 01/04/18 23:02 Expected date of discharge: 01/07/18 Attending physician: Ananth Hobson MD Consults: 01/05/18 13:11 Consult Physician Routine Consulting Provider: Peter Howard Consult Reason/Comments: pneumonia Do you want consulting provider notified?: Yes Primary care physician: [place] [facility] Course: Dsicharge diagnosis. Shortness of breath multifactorial secondary to acute asthma/COPD exacerbation likely due to tracheobronchitis along with morbid obesity/obesity hypoventilation. No evidence of pneumonia as per CT. History of influenza and pneumonia in early this year Hypothyroidism Restless leg syndrome History of coronary disease with stent placement 2 Degenerative joint disease Chronic CHF with diastolic dysfunction ejection fraction 55-60% Anxiety and depression Morbid obesity BMI 55 Stable calcified brain lesion. Follow-up with her neurologist at [facility] DVT prophylaxis Hospital course. Patient is a 67-year-old female with a known history of smoking, history of influenza and pneumonia in November 2017, recent admission with COPD exacerbation and was discharged on 12/31/2017 came back to the hospital with worsening shortness of breath. Patient also has history of coronary artery disease and stent placement, colitis, IBS, urinary incontinence, uterine cancer with surgery , severe peptic/esophageal ulcer, prolapsed.heart valve, chronic back pain and herniated disc at multiple levels, fracture of the stepmom 2 and chronic sternal pain, hypothyroidism, bilateral lower extremity swelling and osteoarthritis and multiple other medical problems. Patient says that for the last 1-2 days patient felt very short of breath along with increased cough and congestion and was also noted have lips turning blue. Patient came back to the hospital for further evaluation. Patient does have cough without sputum production. Patient felt chest tightness. Denied any nausea vomiting or abdominal pain. Patient felt cold and clammy but denied any fever. No diarrhea. Chest x-ray showed patchy left-sided infiltrate/pneumonia. CT chest did not show any evidence of pneumonia. No acute process was noted in the CT. Pulmonary was consulted for further evaluation. 01/06/2018 Patient's breathing status is improved today. Otherwise no complaints of chest pain. Patient is being continued on IV steroids and breathing treatments and antibiotics have been changed to doxycycline by mouth for tracheal bronchitis. No rales and pneumonia on CT chest. Pulmonary is following. Anticipate discharge next 24 hours with more clinical improvement. 01/07/18 Breathing status is much improved. pt denied any cP/SOB. no acut eovernight issues. Pt. was seen and examined. Plan: Patient was continued on IV steroids and breathing treatments and was started on antibiotics in the form of vancomycin and Zosyn in the ER. Antibiotics changed to to doxycycline as per pulmonary recommendations. Continued the home medications and follow up closely. No evidence of pneumonia and the CT chest. FDiscussed with the patient in detail. Prognosis is guarded. PHYSICAL EXAMINATION: Patient is lying in the bed comfortably, no acute distress, awake alert and oriented. Morbidly obese. HEENT: Normocephalic. Neck is supple. Pupils reactive. Nostrils clear. Oral cavity is moist. Ears reveal no drainage. Neck reveals no JVD, carotid bruits, or thyromegaly. CHEST EXAMINATION: Trachea is central. Symmetrical expansion. Bilateral air entry improved with minimal expiratory wheeze. CARDIAC: Normal S1, S2 with no gallops. No murmurs ABDOMEN: Soft. Bowel sounds normal. No organomegaly. No abdominal bruits. Extremities: reveal no edema. No clubbing or cyanosis Neurologically awake, alert, oriented x3 with well-coordinated movements. No focal deficits noted Skin: No rash or skin lesions. Psychiatric: Coperative. Nonsuicidal Musculoskeletal: No joint swelling or deformity. Normal range of motion. Vitals reviewed. time take >35 min Patient Condition at Discharge: Fair Plan - Discharge Summary New Discharge Prescriptions: New Doxycycline Monohydrate [Vibramycin] 100 mg PO BID 3 Days #6 capsule predniSONE See Taper PO DAILY #30 tab Continue Albuterol Nebulized [Ventolin Nebulized] 2.5 mg INHALATION RT-QID PRN PRN Reason: Shortness Of Breath Furosemide [Lasix] 40 mg PO DAILY PRN PRN Reason: Edema Omeprazole 20 mg PO BID Melatonin 6 mg PO HS Levothyroxine Sodium [Synthroid] 100 mcg PO DAILY Albuterol Inhaler [Ventolin Hfa Inhaler] 1 - 2 puff INHALATION RT-Q6H PRN PRN Reason: Shortness Of Breath Or Wheezing Pramipexole [Mirapex] 0.25 mg PO HS #30 tablet Hydrocodone/Acetaminophen [[place] 10-325] 1 - 2 tab PO Q6HR PRN PRN Reason: Pain Discharge Medication List Albuterol Nebulized [Ventolin Nebulized] 2.5 mg INHALATION RT-QID PRN 02/01/17 [ History] Furosemide [Lasix] 40 mg PO DAILY PRN 06/29/17 [History] Albuterol Inhaler [Ventolin Hfa Inhaler] 1 - 2 puff INHALATION RT-Q6H PRN [History] Levothyroxine Sodium [Synthroid] 100 mcg PO DAILY 11/10/17 [History] Melatonin 6 mg PO HS 11/10/17 [History] Omeprazole 20 mg PO BID 11/10/17 [History] Pramipexole [Mirapex] 0.25 mg PO HS #30 tablet 11/14/17 [Rx] Hydrocodone/Acetaminophen [[place] 10-325] 1 - 2 tab PO Q6HR PRN 01/04/18 [History ] Doxycycline Monohydrate [Vibramycin] 100 mg PO BID 3 Days #6 capsule 01/07/18 [ Rx] predniSONE See Taper PO DAILY #30 tab 01/07/18 [Rx] Follow up Appointment(s)/Referral(s): Peter Howard MD [STAFF PHYSICIAN] - 01/14/18 12:15 pm Patient Instructions/Handouts: Pneumonitis (DC) Discharge Disposition: HOME SELF-CARE
== END 2018-01-07 15:54 | disposition home or self-care (01) ==
LOC: EC 19:05 → 4MS4W 23:02
PROVIDERS: ADMIT Internal Medicine; ATTEND Internal Medicine
DX: J44.1 Chronic obstructive pulmonary disease with (acute) exacerbation (principal); R07.9 Chest pain, unspecified; E66.2 Morbid (severe) obesity with alveolar hypoventilation; Z68.43 Body mass index [BMI] 50.0-59.9, adult; I11.0 Hypertensive heart disease with heart failure; I50.32 Chronic diastolic (congestive) heart failure; G25.81 Restless legs syndrome; E03.9 Hypothyroidism, unspecified; I25.10 Atherosclerotic heart disease of native coronary artery without angina pectoris; Z85.42 Personal history of malignant neoplasm of other parts of uterus; G89.29 Other chronic pain; F32.9 Major depressive disorder, single episode, unspecified; F41.9 Anxiety disorder, unspecified; G47.33 Obstructive sleep apnea (adult) (pediatric); G93.9 Disorder of brain, unspecified; I25.2 Old myocardial infarction; M19.90 Unspecified osteoarthritis, unspecified site; K58.9 Irritable bowel syndrome, unspecified; J45.901 Unspecified asthma with (acute) exacerbation; Z86.19 Personal history of other infectious and parasitic diseases; Z87.01 Personal history of pneumonia (recurrent); Z80.1 Family history of malignant neoplasm of trachea, bronchus and lung; Z82.49 Family history of ischemic heart disease and other diseases of the circulatory system; Z87.442 Personal history of urinary calculi; Z87.891 Personal history of nicotine dependence; Z90.710 Acquired absence of both cervix and uterus; Z96.651 Presence of right artificial knee joint
CPT/HCPCS: 96376 ×3; 96366 ×2; 96372 ×3; 96375 ×2; 96368; 96365; 99285; 36415; 94640; 94760 ×2; 93005; 83880; 80053; 82550; 82553; 84484; 85025; 85610; 85730; 87040; 71046; 71250; G0378 ×4; J3370; J2930 ×3; J2405 ×2; J1650 ×3; J2270 ×3; J2543 ×2; J7512

== ENCOUNTER 2018-01-22 19:46 | Inpatient (IN) | payer MEDICARE, OTHER ==
[2018-01-22] MEDS ORDERED: ONDANSETRON 4 MG/2 ML VIAL IVP STA (20:30)
[2018-01-22] MEDS ORDERED: ASPIRIN 325 MG TAB PO STA (20:30)
[2018-01-22] MEDS ORDERED: IPRATROPIUM-ALBUTEROL 3 ML NEB INHALATION STA (20:31)
[2018-01-22] MEDS ORDERED: MORPHINE SULFATE 2 MG/ML SYRINGE IVP STA (20:33)
[2018-01-22 21:17] LABS: Basophils % (A) 0 %; Eosinophils # (A) 0.2 k/uL (0-0.7); Eosinophils % (A) 3 %; HCT 36.2 % (34.0-46.0); Lymphocytes # (A) 1.1 k/uL (1.0-4.8); Lymphocytes % (A) 13 %; MCH 26.5 pg (25.0-35.0); MCHC 33.1 g/dL (31.0-37.0); MCV 79.9 fL (80.0-100.0); Mean Platelet Volume 6.4; Monocytes # (A) 0.3 k/uL (0-1.0); Monocytes % (A) 4 %; Neutrophils # (A) 6.5 k/uL (1.3-7.7); Neutrophils % (A) 79 %; Platelet Count 252 k/uL (150-450); RBC 4.53 m/uL (3.80-5.40); RDW 15.6 % (11.5-15.5); WBC 8.3 k/uL (3.8-10.6)
[2018-01-22 21:31] LABS: Anion Gap 13 mmol/L; Blood Urea Nitrogen 8 mg/dL (7-17); Calcium 9.4 mg/dL (8.4-10.2); Carbon Dioxide 24 mmol/L (22-30); Chloride 104 mmol/L (98-107); Glucose 121 mg/dL (74-99); Potassium 3.8 mmol/L (3.5-5.1); Sodium 141 mmol/L (137-145)
--- NOTE | 2018-01-22 21:37 | XR ---
EXAMINATION TYPE: XR chest 2V DATE OF EXAM: 01/22/2018 COMPARISON: 01/04/2018 HISTORY: Short of breath TECHNIQUE: Frontal and lateral views of the chest are obtained. FINDINGS: There is no heart failure nor confluent pneumonic infiltrate. Heart size is normal. Bony t horax is intact. Costophrenic angles are clear. IMPRESSION: No active cardiopulmonary disease. Normal heart. No change.
[2018-01-22] MEDS ORDERED: HYDROmorphone 0.5 MG/0.5 ML SYRINGE IVP STA (21:46)
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
[2018-01-22] MEDS ORDERED: ONDANSETRON 4 MG/2 ML VIAL IVP PRN (23:52)
[2018-01-22] MEDS ORDERED: NALOXONE 0.4 MG/ML 1 ML VIAL IV PRN (23:52)
[2018-01-22] MEDS ORDERED: ACETAMINOPHEN TAB 325 MG TAB PO PRN (23:52)
[2018-01-22] MEDS ORDERED: IBUPROFEN 400 MG TAB PO PRN (23:52)
[2018-01-22] MEDS ORDERED: traMADol 50 MG TAB PO PRN (23:52)
[2018-01-23] MEDS ORDERED: IPRATROPIUM-ALBUTEROL 3 ML NEB INHALATION SCH
[2018-01-23] MEDS ORDERED: IPRATROPIUM-ALBUTEROL 3 ML NEB INHALATION PRN (00:45)
[2018-01-23] MEDS ORDERED: hydrOXYzine PAMOATE 25 MG CAP PO STA (01:26)
[2018-01-23] MEDS ORDERED: MELATONIN 3 MG TABLET PO STA (01:27)
[2018-01-23] MEDS ORDERED: MELATONIN 5 MG TABLET PO STA (01:27)
[2018-01-23] MEDS: MORPHINE SULFATE 2 MG/ML SYRINGE IV PRN ×4 (02:24→21:40)
[2018-01-23] MEDS: HYDROcodone/APAP 5-325MG 1 EACH TAB PO PRN ×3 (04:40→17:46)
[2018-01-23] MEDS: LEVOTHYROXINE 100 MCG TAB PO SCH (06:15)
[2018-01-23] MEDS: PANTOPRAZOLE 40 MG TABLET PO SCH ×2 (08:02→21:39)
[2018-01-23 08:17] LABS: Basophils % (A) 0 %; Eosinophils % (A) 0 %; HCT 33.9 % (34.0-46.0); HGB 10.8 gm/dL (11.4-16.0); Lymphocytes # (A) 0.6 k/uL (1.0-4.8); Lymphocytes % (A) 10 %; MCH 25.5 pg (25.0-35.0); MCHC 31.9 g/dL (31.0-37.0); MCV 79.8 fL (80.0-100.0); Mean Platelet Volume 6.8; Monocytes # (A) 0.2 k/uL (0-1.0); Monocytes % (A) 3 %; Neutrophils # (A) 5.4 k/uL (1.3-7.7); Neutrophils % (A) 86 %; Platelet Count 293 k/uL (150-450); RBC 4.25 m/uL (3.80-5.40); RDW 15.8 % (11.5-15.5); WBC 6.3 k/uL (3.8-10.6)
[2018-01-23 08:24] LABS: Anion Gap 13 mmol/L; Blood Urea Nitrogen 12 mg/dL (7-17); Calcium 9.1 mg/dL (8.4-10.2); Carbon Dioxide 23 mmol/L (22-30); Chloride 104 mmol/L (98-107); Glucose 131 mg/dL (74-99); Potassium 4.8 mmol/L (3.5-5.1); Sodium 140 mmol/L (137-145)
[2018-01-23] MEDS: IPRATROPIUM-ALBUTEROL 3 ML NEB INHALATION SCH ×4 (09:04→19:58)
[2018-01-23] MEDS ORDERED: diphenhydrAMINE 50 MG/ML 1 ML VIAL IVP STA (14:31)
[2018-01-23] MEDS ORDERED: methylPREDNISolone SOD SUCCI 125 MG/2 ML VIAL IV STA (14:31)
[2018-01-23] MEDS ORDERED: FAMOTIDINE 20 MG/2 ML VIAL IV STA (14:31)
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
--- NOTE | 2018-01-23 17:34 | CT ---
EXAMINATION TYPE: CT chest angio for PE DATE OF EXAM: 01/23/2018 COMPARISON: 11/23/2015 HISTORY: 67-year-old female shortness of breath R/O PE TECHNIQUE: Contiguous axial scanning of the chest performed with IV Contrast, patient injected with 1 00 mL of Isovue 370. Coronal/sagittal MIP reconstructions performed. CT DLP: 1376.6 mGycm Automated exposure control for dose reduction was used. FINDINGS: Heart upper limits of normal in size without pericardial effusion. Coronary vessel calcifications are present in remarkable for coronary artery disease. Aorta normal caliber with aberrant right subclavian artery which takes a retroesophageal course. The patient was rescanned due to poor bolus timing. The patient was a difficult flush limiting their injection to a rate of 2 mL/s. There is no large central pulmonary embolus. Both scans are otherwise nondiagnostic due largely to po or opacification. Respiratory motion artifacts are also present. Large caliber to the main right and left pulmonary arteries and 2.7 and 2.5 cm, respectively, suggest ing underlying pulmonary hypertension. Evaluation of the lung show strandy areas of atelectasis. There is mild diffuse bronchial wall thicke juliocesar which could represent bronchitis or asthma. No consolidation or pleural effusion. Tiny hiatal hernia. Visualized upper abdomen shows a prominent but not enlarged 1.2 cm portacaval lym ph node. Bones: Comminuted anterior endplate spondylosis. IMPRESSION: 1. NO LARGE CENTRAL PULMONARY EMBOLUS. THE PATIENT WAS RESCANNED DUE TO POOR BOLUS TIMING. BOTH SCANS ARE NONDIAGNOSTIC FOR PULMONARY EMBOLI IN THE LOBAR OR MORE DISTAL BRANCHES. 2. FINDINGS SUGGEST PULMONARY ARTERIAL HYPERTENSION. 3. MILD DIFFUSE BRONCHIAL WALL THICKENING COULD REFLECT BRONCHITIS OR ASTHMA.
[2018-01-23] MEDS: methylPREDNISolone SOD SUCCI 40 MG/ML 1 ML VIAL IV SCH ×2 (17:44→23:43)
[2018-01-23] MEDS: HEPARIN SODIUM,PORCINE 5,000 UNIT/ML 1 ML VIAL SQ SCH ×2 (17:46→23:43)
[2018-01-23] MEDS: INSULIN ASPART 100 UNIT/ML 1 ML 10 ML VIAL SQ SCH ×2 (17:48→21:38)
[2018-01-23 17:50] LABS: Glucose,Whole Blood 127 mg/dL (75-99)
[2018-01-23 20:51] LABS: Glucose,Whole Blood 170 mg/dL (75-99)
[2018-01-23] MEDS: hydrOXYzine PAMOATE 25 MG CAP PO SCH (21:37)
[2018-01-23] MEDS: PRAMIPEXOLE 0.25 MG TAB PO SCH (21:39)
[2018-01-23] MEDS: MELATONIN 3 MG TABLET PO SCH (21:39)
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
[2018-01-24] MEDS: HYDROcodone/APAP 5-325MG 1 EACH TAB PO PRN ×4 (02:12→21:19)
[2018-01-24] MEDS: LEVOTHYROXINE 100 MCG TAB PO SCH (05:10)
[2018-01-24] MEDS: MORPHINE SULFATE 2 MG/ML SYRINGE IV PRN ×4 (05:10→19:27)
[2018-01-24 07:13] LABS: Glucose,Whole Blood 174 mg/dL (75-99)
[2018-01-24] MEDS: HEPARIN SODIUM,PORCINE 5,000 UNIT/ML 1 ML VIAL SQ SCH ×2 (08:01→16:08)
[2018-01-24] MEDS: methylPREDNISolone SOD SUCCI 40 MG/ML 1 ML VIAL IV SCH ×2 (08:01→16:08)
[2018-01-24] MEDS: INSULIN ASPART 100 UNIT/ML 1 ML 10 ML VIAL SQ SCH ×4 (08:06→21:14)
[2018-01-24] MEDS: PANTOPRAZOLE 40 MG TABLET PO SCH ×2 (08:07→20:29)
[2018-01-24] MEDS: IPRATROPIUM-ALBUTEROL 3 ML NEB INHALATION SCH ×4 (08:23→20:08)
[2018-01-24 11:54] LABS: Glucose,Whole Blood 153 mg/dL (75-99)
[2018-01-24] MEDS: LORazepam 0.5 MG TAB PO PRN (17:15)
[2018-01-24 17:16] LABS: Glucose,Whole Blood 186 mg/dL (75-99)
[2018-01-24] MEDS: PRAMIPEXOLE 0.25 MG TAB PO SCH (20:28)
[2018-01-24] MEDS: MELATONIN 3 MG TABLET PO SCH (20:29)
[2018-01-24 20:52] LABS: Glucose,Whole Blood 139 mg/dL (75-99)
[2018-01-24] MEDS: hydrOXYzine PAMOATE 25 MG CAP PO SCH (21:14)
[2018-01-25] MEDS: methylPREDNISolone SOD SUCCI 40 MG/ML 1 ML VIAL IV SCH ×4 (00:07→23:36)
[2018-01-25] MEDS: HEPARIN SODIUM,PORCINE 5,000 UNIT/ML 1 ML VIAL SQ SCH ×4 (00:07→23:36)
[2018-01-25] MEDS: MORPHINE SULFATE 2 MG/ML SYRINGE IV PRN ×6 (00:08→23:36)
[2018-01-25] MEDS: HYDROcodone/APAP 5-325MG 1 EACH TAB PO PRN ×5 (03:17→21:43)
[2018-01-25] MEDS: LEVOTHYROXINE 100 MCG TAB PO SCH (06:21)
[2018-01-25] MEDS: PANTOPRAZOLE 40 MG TABLET PO SCH ×2 (06:22→20:01)
[2018-01-25] MEDS: LORazepam 0.5 MG TAB PO PRN ×2 (07:31→15:40)
[2018-01-25] MEDS: INSULIN ASPART 100 UNIT/ML 1 ML 10 ML VIAL SQ SCH ×4 (07:32→21:43)
[2018-01-25 07:57] LABS: Glucose,Whole Blood 131 mg/dL (75-99)
--- NOTE | 2018-01-25 08:17 | P.PN ---
Subjective Progress Note Date: 01/24/18 (Late entry note) Principal diagnosis: Right-sided chest pain, acute asthma exacerbation, severe COPD, pulmonary hypertension, obstructive sleep apnea and sleep disorder breathing 01/24/2018, patient seen eval examined during the rounds clinically not much change some degree or shortness of breath and right-sided pleuritic chest pain is still present but severity has improved computed tomography scan of the chest findings reviewed no major filling defect are seen small peripheral emboli however cannot be excluded due to flow of the dye but overall appears less likely, finding of the bronchial wall inflammation is seen suggestive of ongoing bronchitis inflammatory changes also evidence of urinary hypertension is seen patient however continued to refuse using BiPAP or CPAP machine Miss Chinchilla is a 67-year-old morbidly obese female who was seen eval reexamined on fourth floor this patient has been admitted into the hospital with 2 day history of pleuritic type of chest pain on the right side 2 days ago patient woke up for severe degree of chest pain however it has some paroxysmal Petrin deep breathing does have ongoing shortness of breath off note that patient oxygen level usually is 96% however she had some borderline the saturation on 2- 4 L oxygen her saturation were ranging from 90-94%, she denies any cough or sputum production denies any night sweats fever or chills, denies any seizure- like to a loss of consciousness), denies any other bowel or bladder dysfunction , she does feel some increased swelling of the lower extremity however is present bilateral In addition to above patient has been complaining of severe degree of leg movements related to restless leg as she has not receive her Mirapex Objective - Vital Signs Vital signs: Vital Signs Temp 97.6 F 01/25/18 06:43 Pulse 92 01/25/18 06:43 Resp 18 01/25/18 06:43 BP 164/78 01/25/18 06:43 Pulse Ox 94 L 01/25/18 06:43 Intake & Output 01/24/18 01/25/18 01/25/18 18:59 06:59 18:59 Intake Total 1200 600 Balance 1200 600 Intake: Oral 1200 600 Other: Voiding Method Bedside Commode # Voids 1 2 - Exam Head exam: Present: atraumatic, normocephalic, normal inspection Eye exam: Present: normal appearance, PERRL, EOMI. Absent: scleral icterus, conjunctival injection, periorbital swelling ENT exam: Present: normal exam, normal oropharynx Neck exam: Present: normal inspection. Absent: tenderness, meningismus, lymphadenopathy Respiratory exam: Present: respiratory distress, wheezes, accessory muscle use, decreased breath sounds. Absent: normal lung sounds bilaterally, rales, rhonchi , stridor, chest wall tenderness Cardiovascular Exam: Present: normal rhythm, tachycardia GI/Abdominal exam: Present: soft. Absent: distended, tenderness, guarding, rebound, rigid Extremities exam: Present: normal inspection, full ROM Back exam: Present: normal inspection Neurological exam: Present: alert, oriented X3, CN II-XII intact Psychiatric exam: Present: normal affect, normal mood Skin exam: Present: warm, dry, intact, normal color. Absent: rash - Labs CBC & Chem 7: 01/23/18 07:39 01/23/18 07:39 Labs: Abnormal Lab Results - Last 24 Hours (Table) 01/24/18 01/24/18 01/24/18 Range/Units 11:43 17:00 20:50 POC Glucose (mg/dL) 153 H 186 H 139 H (75-99) mg/dL 01/25/18 Range/Units 07:22 POC Glucose (mg/dL) 131 H (75-99) mg/dL Assessment and Plan Assessment: Acute onset of chest pain and shortness of breath appeared to be related to acute asthma as well as musculoskeletal pain reviewed spiral CT scan of the chest, major pulmonary embolism less likely Acute asthma exacerbation initiate and maintain patient on steroids breathing treatments and monitor clinical course closely Severe morbid obesity along with baseline sleep disorder breathing and sleep apnea, patient Polysomnogram as well as CPAP and/or or BiPAP machine in if patient agreeable History of coronary artery disease myocardial infarction Degenerative joint disease osteoarthritis especially of the spine with multiple herniated disc C. difficile infection by history History of atrial fibrillation in the past Plan: Reviewed computed tomography scan of the chest deep breathing exercise incentive spirometry Bronchodilators and IV steroids Further recommendations pending plan of care as per clinical response of the patient Maintain patient on DVT and peptic ulcer disease prophylaxis Time with Patient: Greater than 30
--- NOTE | 2018-01-25 08:20 | P.PN ---
Subjective Progress Note Date: 01/25/18 Principal diagnosis: Right-sided chest pain, acute asthma exacerbation, severe COPD, pulmonary hypertension, obstructive sleep apnea and sleep disorder breathing 01/24/2018, patient seen eval examined during the rounds clinically overall not much change continued to have issues with the right-sided pleuritic chest pain severity however slightly better she is being treated for acute asthma with deep breathing exercise incentive spirometry bronchodilators and IV steroids also on peptic ulcer disease prophylaxis and DVT prophylaxis patient continue to refuse CPAP and/or BiPAP or evaluation for sleep disorder breathing and sleep apnea 01/24/2018, patient seen eval examined during the rounds clinically not much change some degree or shortness of breath and right-sided pleuritic chest pain is still present but severity has improved computed tomography scan of the chest findings reviewed no major filling defect are seen small peripheral emboli however cannot be excluded due to flow of the dye but overall appears less likely, finding of the bronchial wall inflammation is seen suggestive of ongoing bronchitis inflammatory changes also evidence of urinary hypertension is seen patient however continued to refuse using BiPAP or CPAP machine Miss Chinchilla is a 67-year-old morbidly obese female who was seen eval reexamined on fourth floor this patient has been admitted into the hospital with 2 day history of pleuritic type of chest pain on the right side 2 days ago patient woke up for severe degree of chest pain however it has some paroxysmal Petrin deep breathing does have ongoing shortness of breath off note that patient oxygen level usually is 96% however she had some borderline the saturation on 2- 4 L oxygen her saturation were ranging from 90-94%, she denies any cough or sputum production denies any night sweats fever or chills, denies any seizure- like to a loss of consciousness), denies any other bowel or bladder dysfunction , she does feel some increased swelling of the lower extremity however is present bilateral In addition to above patient has been complaining of severe degree of leg movements related to restless leg as she has not receive her Mirapex Objective - Vital Signs Vital signs: Vital Signs Temp 97.6 F 01/25/18 06:43 Pulse 92 01/25/18 06:43 Resp 18 01/25/18 06:43 BP 164/78 01/25/18 06:43 Pulse Ox 94 L 01/25/18 06:43 Intake & Output 01/24/18 01/25/18 01/25/18 18:59 06:59 18:59 Intake Total 1200 600 Balance 1200 600 Intake: Oral 1200 600 Other: Voiding Method Bedside Commode # Voids 1 2 - Exam Head exam: Present: atraumatic, normocephalic, normal inspection Eye exam: Present: normal appearance, PERRL, EOMI. Absent: scleral icterus, conjunctival injection, periorbital swelling ENT exam: Present: normal exam, normal oropharynx Neck exam: Present: normal inspection. Absent: tenderness, meningismus, lymphadenopathy Respiratory exam: Present: respiratory distress, wheezes, accessory muscle use, decreased breath sounds. Absent: normal lung sounds bilaterally, rales, rhonchi , stridor, chest wall tenderness Cardiovascular Exam: Present: normal rhythm, tachycardia GI/Abdominal exam: Present: soft. Absent: distended, tenderness, guarding, rebound, rigid Extremities exam: Present: normal inspection, full ROM Back exam: Present: normal inspection Neurological exam: Present: alert, oriented X3, CN II-XII intact Psychiatric exam: Present: normal affect, normal mood Skin exam: Present: warm, dry, intact, normal color. Absent: rash - Labs CBC & Chem 7: 01/23/18 07:39 01/23/18 07:39 Labs: Abnormal Lab Results - Last 24 Hours (Table) 01/24/18 01/24/18 01/24/18 Range/Units 11:43 17:00 20:50 POC Glucose (mg/dL) 153 H 186 H 139 H (75-99) mg/dL 01/25/18 Range/Units 07:22 POC Glucose (mg/dL) 131 H (75-99) mg/dL Assessment and Plan Assessment: Acute onset of chest pain and shortness of breath appeared to be related to acute asthma as well as musculoskeletal pain reviewed spiral CT scan of the chest, major pulmonary embolism less likely Acute asthma exacerbation initiate and maintain patient on steroids breathing treatments and monitor clinical course closely Severe morbid obesity along with baseline sleep disorder breathing and sleep apnea, patient Pulmonary hypertension multifactorial Polysomnogram as well as CPAP and/or or BiPAP machine in if patient agreeable History of coronary artery disease myocardial infarction Degenerative joint disease osteoarthritis especially of the spine with multiple herniated disc C. difficile infection by history History of atrial fibrillation in the past Plan: Reviewed computed tomography scan of the chest deep breathing exercise incentive spirometry Bronchodilators and IV steroids Further recommendations pending plan of care as per clinical response of the patient Maintain patient on DVT and peptic ulcer disease prophylaxis Check duplex ultrasound of the lower extremity Time with Patient: Greater than 30
[2018-01-25] MEDS: IPRATROPIUM-ALBUTEROL 3 ML NEB INHALATION SCH ×4 (08:38→20:27)
[2018-01-25 11:59] LABS: Glucose,Whole Blood 101 mg/dL (75-99)
--- NOTE | 2018-01-25 14:55 | CDI ---
Last Revision, July 2017 Documentation Clarification Form Date: 01/25/18 From: Dulce Wu Admit Date: 01/22/2018 11:52:00 PM Patient Name: Reéne Krishnan Visit Number: [id number] ATTENTION: The Clinical Documentation Specialists (CDI) and [facility] Coding Staff appreciate your assistance in clarifying documentation. Please respond to the clarification below the line at the bottom and electronically sign. The CDI & [facility] Coding staff will review the response and follow-up if needed. Please note: Queries are made part of the Legal Health Record. If you have any questions, please contact the author of this message via ITS. Dr. Peter Howard, Asthma is documented in the consult note 01/23 and your progress notes 01/24 and 01/25. Patient presented with shortness of breath. Patient history/risk factors: smoker, pneumonia, COPD, asthma, UTIs angina, CHF , GI bleed, MT, OA, renal dx. , skin disorder, hypothyroid , uterine cancer, severe ulcers, , murmur, prolapsed heart valve, chronic back pain, bilateral lower leg edema, c-diff, morbid obesity Clinical Indicators: Radiology: CHEST CTA: pulmonary arterial htn, no PE, mild diffuse bronchial wall thickening reflect bronchitis or asthma Vital Signs on admission: t 99.7, p 105, R 24, 177/72, 98% 4L Treatment: Medication: Duoneb, IV Solu-Medrol Consults: pulmonary 4L nasal cannula In your professional opinion, can you please further specify the following, if known? Severity: Mild intermittent Mild persistent Moderate persistent Severe persistent Other, please specify Unable to determine Please continue to document in your progress notes and discharge summary in order to capture severity of illness and risk of mortality. Include clinical findings that support your diagnosis. MTDD
[2018-01-25 17:26] LABS: Glucose,Whole Blood 130 mg/dL (75-99)
[2018-01-25] MEDS: hydrOXYzine PAMOATE 25 MG CAP PO SCH (20:00)
[2018-01-25] MEDS: PRAMIPEXOLE 0.25 MG TAB PO SCH (20:01)
[2018-01-25] MEDS: MELATONIN 3 MG TABLET PO SCH (20:01)
[2018-01-25 21:20] LABS: Glucose,Whole Blood 183 mg/dL (75-99)
--- NOTE | 2018-01-26 01:44 | P.PN ---
Subjective Progress Note Date: 01/24/18 Principal diagnosis: Acute COPD exacerbation Patient is a 67-year-old female with a known history of smoking, history of influenza and pneumonia in November 2017, recent admission with COPD/asthma exacerbation and was discharged on 01/07/2018 came back to the hospital with sudden onset of shortness of breath. Patient also has history of coronary artery disease and stent placement, colitis, IBS, urinary incontinence, uterine cancer with surgery, severe peptic/esophageal ulcer, prolapsed.heart valve, chronic back pain and herniated disc at multiple levels, fracture of the stepmom 2 and chronic sternal pain, hypothyroidism, bilateral lower extremity swelling and osteoarthritis and multiple other medical problems. Patient has multiple admissions due to asthma/COPD exacerbation. patient was not a smoker in the past..Patient does have sudden onset of shortness of breath along with chest pain right anterior retrosternal worsens with deep breathing. Denied any sputum production patient does have cough but no sputum production. No fever no chills. Patient does have worsening shortness of breath and wheezing associated with chest discomfort last couple of days but her symptoms suddenly got worse before admission. She states that there is no increased lower extremity edema. Denies nausea vomiting abdominal pain however she does intermittently have chest pain. She took breathing treatments at home and the ambulance with steroids without improvement. Chest x-ray showed no active cardiopulmonary process CT angiogram showed no evidence of pulmonary embolism. Findings suggest pulmonary hypertension. Mild diffuse bronchial wall thickening could reflect bronchitis or asthma. Troponin 1 negative. BNP 354 01/24/2018 Patient is still complaining of shortness of breath with walking. Otherwise resting comfortably. Patient refused to use BiPAP at this time. Otherwise patient is being continued on IV steroids and breathing treatments. Patient became very emotionally upset due to her financial status and unable to pay her rent as well. We will Case management and social work will come to be consulted. We'll consult psychiatry as well. Pulmonary is following. No complaints of chest pain. No fever no chills. No nausea vomiting or abdominal pain. All other review of systems negative except the above Current medications reviewed Objective - Vital Signs Vital signs: Vital Signs Temp 98.4 F 01/24/18 14:34 Pulse 87 01/24/18 14:34 Resp 18 01/24/18 14:34 BP 137/72 01/24/18 14:34 Pulse Ox 98 01/24/18 14:34 Intake & Output 01/23/18 01/24/18 01/24/18 18:59 06:59 18:59 Intake Total 1200 600 Balance 1200 600 Intake: Oral 1200 600 Other: # Voids 4 3 3 - Exam PHYSICAL EXAMINATION: Patient is lying in the bed comfortably, no acute distress, awake alert and oriented. Morbid obese. HEENT: Normocephalic. Neck is supple. Pupils reactive. Nostrils clear. Oral cavity is moist. Ears reveal no drainage. Neck reveals no JVD, carotid bruits, or thyromegaly. CHEST EXAMINATION: Trachea is central. Symmetrical expansion. Bilateral basilar diminished air entry. Poor respiratory effort and diminished air movement CARDIAC: Normal S1, S2 with no gallops. No murmurs ABDOMEN: Soft. Bowel sounds normal. No organomegaly. No abdominal bruits. Extremities: Trace edema. No clubbing or cyanosis Neurologically awake, alert, oriented x3 with well-coordinated movements. No focal deficits noted Skin: No rash or skin lesions. Psychiatric: Cooperative. Nonsuicidal Musculoskeletal: No joint swelling or deformity. Normal range of motion. - Labs CBC & Chem 7: 01/23/18 07:39 01/23/18 07:39 Labs: Abnormal Lab Results - Last 24 Hours (Table) 01/23/18 01/23/18 01/24/18 Range/Units 17:28 20:49 07:01 POC Glucose (mg/dL) 127 H 170 H 174 H (75-99) mg/dL 01/24/18 Range/Units 11:43 POC Glucose (mg/dL) 153 H (75-99) mg/dL Assessment and Plan Assessment: Shortness of breath multifactorial secondary to acute asthma/COPD exacerbation along with morbid obesity/obesity hypoventilation. No evidence of pneumonia as per CT. Possible obstructive sleep apnea Recent admission with asthma exacerbation Pulmonary hypertension History of influenza and pneumonia in early this year Hypothyroidism Restless leg syndrome History of coronary disease with stent placement 2 Degenerative joint disease Chronic CHF with diastolic dysfunction ejection fraction 55-60% Anxiety and depression Morbid obesity BMI 55 Stable calcified brain lesion. Follow-up with her neurologist at [facility] DVT prophylaxis Plan: Patient will be continued on DuoNeb's and methylprednisolone 60 mg every 8. Pulmonary is following. CTA chest was done showed no evidence of pulmonary embolism. We will continue the home medications and follow closely. Further recommendations based on the clinical course. Prognosis is guarded with multiple medical problems and comorbid conditions. Time with Patient: Greater than 30
--- NOTE | 2018-01-26 01:45 | P.PN ---
Subjective Progress Note Date: 01/25/18 Principal diagnosis: Acute COPD exacerbation Patient is a 67-year-old female with a known history of smoking, history of influenza and pneumonia in November 2017, recent admission with COPD/asthma exacerbation and was discharged on 01/07/2018 came back to the hospital with sudden onset of shortness of breath. Patient also has history of coronary artery disease and stent placement, colitis, IBS, urinary incontinence, uterine cancer with surgery, severe peptic/esophageal ulcer, prolapsed.heart valve, chronic back pain and herniated disc at multiple levels, fracture of the stepmom 2 and chronic sternal pain, hypothyroidism, bilateral lower extremity swelling and osteoarthritis and multiple other medical problems. Patient has multiple admissions due to asthma/COPD exacerbation. patient was not a smoker in the past..Patient does have sudden onset of shortness of breath along with chest pain right anterior retrosternal worsens with deep breathing. Denied any sputum production patient does have cough but no sputum production. No fever no chills. Patient does have worsening shortness of breath and wheezing associated with chest discomfort last couple of days but her symptoms suddenly got worse before admission. She states that there is no increased lower extremity edema. Denies nausea vomiting abdominal pain however she does intermittently have chest pain. She took breathing treatments at home and the ambulance with steroids without improvement. Chest x-ray showed no active cardiopulmonary process CT angiogram showed no evidence of pulmonary embolism. Findings suggest pulmonary hypertension. Mild diffuse bronchial wall thickening could reflect bronchitis or asthma. Troponin 1 negative. BNP 354 01/24/2018 Patient is still complaining of shortness of breath with walking. Otherwise resting comfortably. Patient refused to use BiPAP at this time. Otherwise patient is being continued on IV steroids and breathing treatments. Patient became very emotionally upset due to her financial status and unable to pay her rent as well. We will Case management and social work will come to be consulted. We'll consult psychiatry as well. Pulmonary is following. No complaints of chest pain. No fever no chills. No nausea vomiting or abdominal pain. 01/25/2018 Today patient says that she feels better but still having right sided chest pain with deep breathing. No fever no chills. Patient is being continued on IV steroids and breathing treatments. Patient refuses to use BiPAP machine. Patient also refused to get bilateral lower extremity duplex scan due to pain with the procedure. No fever no chills. No other acute overnight issues. All other review of systems negative except the above Current medications reviewed Objective - Vital Signs Vital signs: Vital Signs Temp 98.0 F 01/25/18 14:09 Pulse 96 01/25/18 15:59 Resp 18 01/25/18 14:09 BP 157/84 01/25/18 14:09 Pulse Ox 95 01/25/18 15:47 Intake & Output 01/25/18 01/25/18 01/26/18 06:59 18:59 06:59 Intake Total 600 Balance 600 Intake: Oral 600 Other: Voiding Method Bedside Commode # Voids 2 3 2 # Bowel Movements 1 - Exam PHYSICAL EXAMINATION: Patient is lying in the bed comfortably, no acute distress, awake alert and oriented. Morbid obese. HEENT: Normocephalic. Neck is supple. Pupils reactive. Nostrils clear. Oral cavity is moist. Ears reveal no drainage. Neck reveals no JVD, carotid bruits, or thyromegaly. CHEST EXAMINATION: Trachea is central. Symmetrical expansion. Bilateral basilar diminished air entry. Poor respiratory effort and diminished air movement CARDIAC: Normal S1, S2 with no gallops. No murmurs ABDOMEN: Soft. Bowel sounds normal. No organomegaly. No abdominal bruits. Extremities: Trace edema. No clubbing or cyanosis Neurologically awake, alert, oriented x3 with well-coordinated movements. No focal deficits noted Skin: No rash or skin lesions. Psychiatric: Cooperative. Nonsuicidal Musculoskeletal: No joint swelling or deformity. Normal range of motion. - Labs CBC & Chem 7: 01/23/18 07:39 01/23/18 07:39 Labs: Abnormal Lab Results - Last 24 Hours (Table) 01/25/18 01/25/18 01/25/18 Range/Units 07:22 11:54 17:21 POC Glucose (mg/dL) 131 H 101 H 130 H (75-99) mg/dL 01/25/18 Range/Units 21:15 POC Glucose (mg/dL) 183 H (75-99) mg/dL Assessment and Plan Assessment: Shortness of breath multifactorial secondary to acute asthma/COPD exacerbation along with morbid obesity/obesity hypoventilation. No evidence of pneumonia as per CT. Possible obstructive sleep apnea Recent admission with asthma exacerbation Pulmonary hypertension History of influenza and pneumonia in early this year Hypothyroidism Restless leg syndrome History of coronary disease with stent placement 2 Degenerative joint disease Chronic CHF with diastolic dysfunction ejection fraction 55-60% Anxiety and depression Morbid obesity BMI 55 Stable calcified brain lesion. Follow-up with her neurologist at [facility] DVT prophylaxis Plan: Patient will be continued on DuoNeb's and methylprednisolone 60 mg every 8. Pulmonary is following. CTA chest was done showed no evidence of pulmonary embolism. We will continue the home medications and follow closely. Further recommendations based on the clinical course. Prognosis is guarded with multiple medical problems and comorbid conditions. Time with Patient: Greater than 30
[2018-01-26] MEDS: MORPHINE SULFATE 2 MG/ML SYRINGE IV PRN ×5 (03:40→21:26)
[2018-01-26] MEDS: LORazepam 0.5 MG TAB PO PRN ×4 (04:51→23:34)
[2018-01-26] MEDS: LEVOTHYROXINE 100 MCG TAB PO SCH (06:12)
[2018-01-26] MEDS: HYDROcodone/APAP 5-325MG 1 EACH TAB PO PRN ×5 (06:15→23:39)
[2018-01-26 07:09] LABS: Glucose,Whole Blood 128 mg/dL (75-99)
[2018-01-26] MEDS: IPRATROPIUM-ALBUTEROL 3 ML NEB INHALATION SCH ×4 (07:22→20:13)
[2018-01-26] MEDS: INSULIN ASPART 100 UNIT/ML 1 ML 10 ML VIAL SQ SCH ×4 (07:52→21:27)
[2018-01-26] MEDS: methylPREDNISolone SOD SUCCI 40 MG/ML 1 ML VIAL IV SCH ×3 (08:41→23:34)
[2018-01-26] MEDS: PANTOPRAZOLE 40 MG TABLET PO SCH ×2 (08:42→20:06)
[2018-01-26] MEDS: HEPARIN SODIUM,PORCINE 5,000 UNIT/ML 1 ML VIAL SQ SCH ×3 (08:42→23:34)
[2018-01-26 12:14] LABS: Glucose,Whole Blood 161 mg/dL (75-99)
--- NOTE | 2018-01-26 14:07 | P.CN ---
Psychiatric Consult - . Consult date: 01/26/18 Consult:: IDENTIFYING DATA: The patient is a 67-year-old female admitted to medicine service for treatment of acute exacerbation of COPD. HISTORY OF PRESENT ILLNESS: Her attending consulted psychiatry to evaluate her for depression. I reviewed the medical record and interviewed the patient. She described feeling depressed, sad, hopeless and helpless. She attributed her depression to several stresses the most significant of which was the loss of her in September of this year and ongoing and severe financial problems. Her as a consequence of chronic medical problems. They' ve for 32 years and she continues to mourn his . Her grief symptoms include rumination over his loss, feeling numbness reattach, bitterness about the loss and loss of ability to enjoy herself. Since his , she describes ongoing financial problems. She has been unable to pay the rent for her trailer. She is negotiated partial pain in his landlord and expects to be issued an eviction notice because she is unable to make this month 's rent payment. She stated that the trailer is in poor condition and unrepairable. 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 She described feelings depression, sadness, helplessness, hopelessness and worthlessness. She described ideas of guilt and feels are present illness as a punishment. She feels that life is not worth living but denied that she wishes she were or has thoughts of suicide. She has difficulty falling and staying asleep. She has decreased energy and experiences chronic fatigue and weakness. She feels tense, nervous and irritable. She denied recent loss of weight. These symptoms have been present for many years and fluctuating intensity. She denied experiencing periods of increased anxiety consistent with a panic attack. She ruminates about her financial problems but denied experiencing obsessions or compulsions. She denied use of alcohol or drugs. She denied psychotic symptoms such as auditory, visual or olfactory hallucinations, ideas reference, thought insertion, thought broadcasting etc. PAST PSYCHIATRIC HISTORY: She has a history of depression, depression treatment and admission to our psychiatric unit for the treatment of depression. She stated that her last admission was approximately 20 years ago. Her primary care provider has prescribed her several different antidepressant medications. During our discussion of treatment history she acknowledged intolerable, side effects or lack of response to every antidepressant that I was able to name. She denied a history of elevated mood, euphoria or sustained irritability consistent with juanis or hypomania. PAST MEDICAL HISTORY: See admission history and physical ALLERGIES: She has multiple drug ALLERGIES including Toradol, Robaxin, tramadol and Compazine. SUBSTANCE USE HISTORY: She denied a history of substance use problems. SOCIAL HISTORY: She lives with her 50-year-old son and a trailer in [place]. She receives Social Security income. She had 2 sons one of whom is .. MENTAL STATUS EXAM: She presented as an obese elderly female who was resting comfortably in bed. She made eye contact and appeared to attend to the interview. She had no distinguishing features or prominent physical abnormalities. She had a sad facial expression. She was alert and oriented to person, place and time. She showed psychomotor retardation but no abnormal movements. Her speech was spontaneous with markedly decreased volume. Her affect was depressed and not reactive. She denied suicidal ideation or wishes. She denied homicidal ideation. She expressed depressive cognitions including hopelessness, helplessness and worthlessness. She ruminated about her health, her divorce her and particularly to financial problems. She did not express phobias, ideas reference, paranoid ideation or delusions. Her thinking was abstract and associations were coherent and logical. She denied hallucinations and did not appear to be responding to internal stimuli. IMPRESSIONS: She is a 67-year-old female who has a history of a depressive disorder. She presented to [facility] for treatment of acute exacerbation of COPD. She has multiple stresses contributed to the depression most significant of which is ongoing financial problems. She she has many symptoms of depression. She's been treated with multiple antidepressants and is either not been able tolerate the medicine or described lack of efficacy to all of the antidepressants that I could name. Considering the the clear psychosocial stresses and lack of effectiveness of antidepressants should best be treated on an outpatient basis with individual therapy. PSYCHIATRIC DIAGNOSIS: Persistent depressive disorder, bereavement PLAN: There is no indication for psychiatric hospitalization is distressed time. This consult with social work about referral for outpatient mental health services that are available in her community. Thank you for the consult.
[2018-01-26 17:23] LABS: Glucose,Whole Blood 153 mg/dL (75-99)
--- NOTE | 2018-01-26 17:36 | P.PN ---
Subjective Progress Note Date: 01/26/18 Principal diagnosis: Right-sided chest pain, acute asthma exacerbation, severe COPD, pulmonary hypertension, obstructive sleep apnea and sleep disorder breathing, generalized aches and pain all over the body from head to toe 01/26/2018, patient seen eval examined during the rounds clinically patient is doing not much different from baseline is still complaining of chest pain shortness of breath she has pain in the [place] as well as pain in the legs she also complains of generalized headache as well patient is being evaluated for psychiatric about major depression, she has some nonproductive cough. labs reviewed medications reviewed, patient has refused the duplex ultrasound of the lower extremity 01/25/2018, patient seen eval examined during the rounds clinically overall not much change continued to have issues with the right-sided pleuritic chest pain severity however slightly better she is being treated for acute asthma with deep breathing exercise incentive spirometry bronchodilators and IV steroids also on peptic ulcer disease prophylaxis and DVT prophylaxis patient continue to refuse CPAP and/or BiPAP or evaluation for sleep disorder breathing and sleep apnea 01/24/2018, patient seen eval examined during the rounds clinically not much change some degree or shortness of breath and right-sided pleuritic chest pain is still present but severity has improved computed tomography scan of the chest findings reviewed no major filling defect are seen small peripheral emboli however cannot be excluded due to flow of the dye but overall appears less likely, finding of the bronchial wall inflammation is seen suggestive of ongoing bronchitis inflammatory changes also evidence of urinary hypertension is seen patient however continued to refuse using BiPAP or CPAP machine Miss Chinchilla is a 67-year-old morbidly obese female who was seen eval reexamined on fourth floor this patient has been admitted into the hospital with 2 day history of pleuritic type of chest pain on the right side 2 days ago patient woke up for severe degree of chest pain however it has some paroxysmal Petrin deep breathing does have ongoing shortness of breath off note that patient oxygen level usually is 96% however she had some borderline the saturation on 2- 4 L oxygen her saturation were ranging from 90-94%, she denies any cough or sputum production denies any night sweats fever or chills, denies any seizure- like to a loss of consciousness), denies any other bowel or bladder dysfunction , she does feel some increased swelling of the lower extremity however is present bilateral In addition to above patient has been complaining of severe degree of leg movements related to restless leg as she has not receive her Mirapex Objective - Vital Signs Vital signs: Vital Signs Temp 97.8 F 01/26/18 15:00 Pulse 98 01/26/18 17:17 Resp 18 01/26/18 15:00 BP 153/79 01/26/18 15:00 Pulse Ox 95 01/26/18 15:00 Intake & Output 01/25/18 01/26/18 01/26/18 18:59 06:59 18:59 Weight 146.51 kg Other: Voiding Method Bedside Commode # Voids 3 1 3 # Bowel Movements 1 1 - Exam Head exam: Present: atraumatic, normocephalic, normal inspection Eye exam: Present: normal appearance, PERRL, EOMI. Absent: scleral icterus, conjunctival injection, periorbital swelling ENT exam: Present: normal exam, normal oropharynx Neck exam: Present: normal inspection. Absent: tenderness, meningismus, lymphadenopathy Respiratory exam: Present: Bilateral good air entrywith no significant wheeze or rhonchi rales or rub Noted Cardiovascular Exam: Present: normal rhythm, tachycardia GI/Abdominal exam: Present: soft. Absent: distended, tenderness, guarding, rebound, rigid Extremities exam: Present: normal inspection, full ROM Back exam: Present: normal inspection Neurological exam: Present: alert, oriented X3, CN II-XII intact Psychiatric exam: Present: normal affect, normal mood Skin exam: Present: warm, dry, intact, normal color. Absent: rash - Labs CBC & Chem 7: 01/23/18 07:39 01/23/18 07:39 Labs: Abnormal Lab Results - Last 24 Hours (Table) 01/25/18 01/26/18 01/26/18 Range/Units 21:15 07:07 12:10 POC Glucose (mg/dL) 183 H 128 H 161 H (75-99) mg/dL 01/26/18 Range/Units 17:20 POC Glucose (mg/dL) 153 H (75-99) mg/dL Assessment and Plan Assessment: Generalized aches and pain all over the body Major depression Acute onset of chest pain and shortness of breath appeared to be related to acute asthma as well as musculoskeletal pain reviewed spiral CT scan of the chest, major pulmonary embolism less likely Acute asthma exacerbation initiate and maintain patient on steroids breathing treatments and monitor clinical course closely Severe morbid obesity along with baseline sleep disorder breathing and sleep apnea, patient Pulmonary hypertension multifactorial Polysomnogram as well as CPAP and/or or BiPAP machine in if patient agreeable History of coronary artery disease myocardial infarction Degenerative joint disease osteoarthritis especially of the spine with multiple herniated disc C. difficile infection by history History of atrial fibrillation in the past Plan: Reviewed computed tomography scan of the chest deep breathing exercise incentive spirometry Bronchodilators and IV steroids, steroids can be switched to oral Further recommendations pending plan of care as per clinical response of the patient Maintain patient on DVT and peptic ulcer disease prophylaxis Check duplex ultrasound of the lower extremity when patient is agreeable however currently patient is refusing it Time with Patient: Greater than 30
[2018-01-26] MEDS: MELATONIN 3 MG TABLET PO SCH (20:05)
[2018-01-26] MEDS: hydrOXYzine PAMOATE 25 MG CAP PO SCH (20:05)
[2018-01-26] MEDS: PRAMIPEXOLE 0.25 MG TAB PO SCH (20:05)
[2018-01-26 20:35] LABS: Glucose,Whole Blood 150 mg/dL (75-99)
[2018-01-27] MEDS: MORPHINE SULFATE 2 MG/ML SYRINGE IV PRN ×3 (02:13→20:59)
[2018-01-27] MEDS ORDERED: LEVOTHYROXINE 100 MCG TAB ONE (06:00)
[2018-01-27] MEDS ORDERED: MORPHINE SULFATE 2 MG/ML SYRINGE ONE ×2 (06:00)
[2018-01-27] MEDS ORDERED: methylPREDNISolone SOD SUCCI 125 MG/2 ML VIAL ONE (06:00)
[2018-01-27] MEDS ORDERED: PANTOPRAZOLE 40 MG TABLET PO ONE (06:00)
[2018-01-27] MEDS ORDERED: HEPARIN SODIUM,PORCINE 5,000 UNIT/ML 1 ML VIAL ONE (06:00)
[2018-01-27] MEDS ORDERED: LORazepam 0.5 MG TAB ONE (06:00)
[2018-01-27] MEDS ORDERED: IPRATROPIUM-ALBUTEROL 3 ML NEB ONE (06:00)
[2018-01-27 07:13] LABS: Glucose,Whole Blood 124 mg/dL (75-99)
[2018-01-27] MEDS: LEVOTHYROXINE 100 MCG TAB PO SCH (10:48)
[2018-01-27] MEDS: HEPARIN SODIUM,PORCINE 5,000 UNIT/ML 1 ML VIAL SQ SCH ×3 (10:48→23:08)
[2018-01-27] MEDS: methylPREDNISolone SOD SUCCI 40 MG/ML 1 ML VIAL IV SCH ×3 (10:48→23:07)
[2018-01-27] MEDS: INSULIN ASPART 100 UNIT/ML 1 ML 10 ML VIAL SQ SCH ×4 (10:48→21:21)
[2018-01-27] MEDS: IPRATROPIUM-ALBUTEROL 3 ML NEB INHALATION SCH ×4 (10:48→20:27)
[2018-01-27] MEDS: PANTOPRAZOLE 40 MG TABLET PO SCH ×2 (10:49→20:59)
[2018-01-27 11:38] LABS: Glucose,Whole Blood 107 mg/dL (75-99)
[2018-01-27] MEDS: LORazepam 0.5 MG TAB PO PRN ×3 (11:59→23:07)
[2018-01-27] MEDS: HYDROcodone/APAP 5-325MG 1 EACH TAB PO PRN ×3 (11:59→23:08)
[2018-01-27 13:12] VITALS: BMI 59.1
--- NOTE | 2018-01-27 14:11 | P.PN ---
Subjective Progress Note Date: 01/27/18 Principal diagnosis: Right-sided chest pain, acute asthma exacerbation, severe COPD, pulmonary hypertension, obstructive sleep apnea and sleep disorder breathing, generalized aches and pain all over the body from head to toe 01/27/2018, patient seen eval examined during the rounds clinically patient is not much change from baseline is still have generalized aches and pain is still episodes of shortness of breath and right-sided chest pain however severity has improved psychiatric services been following this patient as well 01/26/2018, patient seen eval examined during the rounds clinically patient is doing not much different from baseline is still complaining of chest pain shortness of breath she has pain in the [place] as well as pain in the legs she also complains of generalized headache as well patient is being evaluated for psychiatric about major depression, she has some nonproductive cough. labs reviewed medications reviewed, patient has refused the duplex ultrasound of the lower extremity 01/25/2018, patient seen eval examined during the rounds clinically overall not much change continued to have issues with the right-sided pleuritic chest pain severity however slightly better she is being treated for acute asthma with deep breathing exercise incentive spirometry bronchodilators and IV steroids also on peptic ulcer disease prophylaxis and DVT prophylaxis patient continue to refuse CPAP and/or BiPAP or evaluation for sleep disorder breathing and sleep apnea 01/24/2018, patient seen eval examined during the rounds clinically not much change some degree or shortness of breath and right-sided pleuritic chest pain is still present but severity has improved computed tomography scan of the chest findings reviewed no major filling defect are seen small peripheral emboli however cannot be excluded due to flow of the dye but overall appears less likely, finding of the bronchial wall inflammation is seen suggestive of ongoing bronchitis inflammatory changes also evidence of urinary hypertension is seen patient however continued to refuse using BiPAP or CPAP machine Miss Chinchilla is a 67-year-old morbidly obese female who was seen eval reexamined on fourth floor this patient has been admitted into the hospital with 2 day history of pleuritic type of chest pain on the right side 2 days ago patient woke up for severe degree of chest pain however it has some paroxysmal Petrin deep breathing does have ongoing shortness of breath off note that patient oxygen level usually is 96% however she had some borderline the saturation on 2- 4 L oxygen her saturation were ranging from 90-94%, she denies any cough or sputum production denies any night sweats fever or chills, denies any seizure- like to a loss of consciousness), denies any other bowel or bladder dysfunction , she does feel some increased swelling of the lower extremity however is present bilateral In addition to above patient has been complaining of severe degree of leg movements related to restless leg as she has not receive her Mirapex Objective - Vital Signs Vital signs: Vital Signs Temp 97.2 F L 01/26/18 22:43 Pulse 74 01/26/18 22:43 Resp 18 01/26/18 22:43 BP 136/72 01/26/18 22:43 Pulse Ox 94 L 01/26/18 22:43 Intake & Output 01/26/18 01/27/18 01/27/18 18:59 06:59 18:59 Intake Total 200 Balance 200 Weight 146.51 kg 146.51 kg Intake: Oral 200 Other: Voiding Method Bedside Commode Bedside Commode # Voids 2 1 1 # Bowel Movements 1 0 1 - Exam Head exam: Present: atraumatic, normocephalic, normal inspection Eye exam: Present: normal appearance, PERRL, EOMI. Absent: scleral icterus, conjunctival injection, periorbital swelling ENT exam: Present: normal exam, normal oropharynx Neck exam: Present: normal inspection. Absent: tenderness, meningismus, lymphadenopathy Respiratory exam: Present: Bilateral good air entrywith no significant wheeze or rhonchi rales or rub Noted Cardiovascular Exam: Present: normal rhythm, tachycardia GI/Abdominal exam: Present: soft. Absent: distended, tenderness, guarding, rebound, rigid Extremities exam: Present: normal inspection, full ROM Back exam: Present: normal inspection Neurological exam: Present: alert, oriented X3, CN II-XII intact Psychiatric exam: Present: normal affect, normal mood Skin exam: Present: warm, dry, intact, normal color. Absent: rash - Labs CBC & Chem 7: 01/23/18 07:39 01/23/18 07:39 Labs: Abnormal Lab Results - Last 24 Hours (Table) 01/26/18 01/26/18 01/27/18 Range/Units 17:20 20:31 07:05 POC Glucose (mg/dL) 153 H 150 H 124 H (75-99) mg/dL 01/27/18 Range/Units 11:37 POC Glucose (mg/dL) 107 H (75-99) mg/dL Assessment and Plan Assessment: Generalized aches and pain all over the body Major depression Acute onset of chest pain and shortness of breath appeared to be related to acute asthma as well as musculoskeletal pain reviewed spiral CT scan of the chest, major pulmonary embolism less likely Acute asthma exacerbation initiate and maintain patient on steroids breathing treatments and monitor clinical course closely Severe morbid obesity along with baseline sleep disorder breathing and sleep apnea, patient Pulmonary hypertension multifactorial Polysomnogram as well as CPAP and/or or BiPAP machine in if patient agreeable History of coronary artery disease myocardial infarction Degenerative joint disease osteoarthritis especially of the spine with multiple herniated disc C. difficile infection by history History of atrial fibrillation in the past Plan: Reviewed computed tomography scan of the chest deep breathing exercise incentive spirometry Bronchodilators and IV steroids, steroids can be switched to oral Further recommendations pending plan of care as per clinical response of the patient Maintain patient on DVT and peptic ulcer disease prophylaxis Check duplex ultrasound of the lower extremity when patient is agreeable however currently patient is refusing it Time with Patient: Greater than 30
[2018-01-27 17:09] LABS: Glucose,Whole Blood 157 mg/dL (75-99)
--- NOTE | 2018-01-27 20:55 | P.PN ---
Subjective Progress Note Date: 01/26/18 Progress note being dictated for Dr. Miller. Acute COPD exacerbation Patient is a 67-year-old female with a known history of smoking, history of influenza and pneumonia in November 2017, recent admission with COPD/asthma exacerbation and was discharged on 01/07/2018 came back to the hospital with sudden onset of shortness of breath. Patient also has history of coronary artery disease and stent placement, colitis, IBS, urinary incontinence, uterine cancer with surgery, severe peptic/esophageal ulcer, prolapsed.heart valve, chronic back pain and herniated disc at multiple levels, fracture of the stepmom 2 and chronic sternal pain, hypothyroidism, bilateral lower extremity swelling and osteoarthritis and multiple other medical problems. Patient has multiple admissions due to asthma/COPD exacerbation. patient was not a smoker in the past..Patient does have sudden onset of shortness of breath along with chest pain right anterior retrosternal worsens with deep breathing. Denied any sputum production patient does have cough but no sputum production. No fever no chills. Patient does have worsening shortness of breath and wheezing associated with chest discomfort last couple of days but her symptoms suddenly got worse before admission. She states that there is no increased lower extremity edema. Denies nausea vomiting abdominal pain however she does intermittently have chest pain. She took breathing treatments at home and the ambulance with steroids without improvement. Chest x-ray showed no active cardiopulmonary process CT angiogram showed no evidence of pulmonary embolism. Findings suggest pulmonary hypertension. Mild diffuse bronchial wall thickening could reflect bronchitis or asthma. Troponin 1 negative. BNP 354 01/24/2018 Patient is still complaining of shortness of breath with walking. Otherwise resting comfortably. Patient refused to use BiPAP at this time. Otherwise patient is being continued on IV steroids and breathing treatments. Patient became very emotionally upset due to her financial status and unable to pay her rent as well. We will Case management and social work will come to be consulted. We'll consult psychiatry as well. Pulmonary is following. No complaints of chest pain. No fever no chills. No nausea vomiting or abdominal pain. 01/25/2018 Today patient says that she feels better but still having right sided chest pain with deep breathing. No fever no chills. Patient is being continued on IV steroids and breathing treatments. Patient refuses to use BiPAP machine. Patient also refused to get bilateral lower extremity duplex scan due to pain with the procedure. No fever no chills. No other acute overnight issues. All other review of systems negative except the above Current medications reviewed 01/26/2018 no overnight events. Feeling better. Objective - Vital Signs Vital signs: Vital Signs Temp 97.8 F 01/26/18 15:00 Pulse 98 01/26/18 17:17 Resp 18 01/26/18 15:00 BP 153/79 01/26/18 15:00 Pulse Ox 95 01/26/18 15:00 Intake & Output 01/25/18 01/26/18 01/26/18 18:59 06:59 18:59 Weight 146.51 kg Other: Voiding Method Bedside Commode # Voids 3 1 3 # Bowel Movements 1 1 - Exam Patient is sitting up in the bed comfortably, no acute distress, awake alert and oriented. HEENT: Normocephalic. Neck is supple. Pupils reactive. Nostrils clear. Oral cavity is moist. Neck reveals no JVD, carotid bruits, or thyromegaly. CHEST EXAMINATION: Trachea is central. Symmetrical expansion. Bilateral basilar diminished air entry. Poor respiratory effort and diminished air movement CARDIAC: Normal S1, S2 with no gallops. No murmurs ABDOMEN: Soft. Bowel sounds normal. No organomegaly. No abdominal bruits. Extremities: Trace edema. No clubbing or cyanosis Neurologically awake, alert, oriented x3 with well-coordinated movements. No focal deficits noted Skin: No rash or skin lesions. Psychiatric: Cooperative. Nonsuicidal Musculoskeletal: No joint swelling or deformity. Normal range of motion. - Labs CBC & Chem 7: 01/23/18 07:39 01/23/18 07:39 Labs: Abnormal Lab Results - Last 24 Hours (Table) 01/25/18 01/26/18 01/26/18 Range/Units 21:15 07:07 12:10 POC Glucose (mg/dL) 183 H 128 H 161 H (75-99) mg/dL 01/26/18 Range/Units 17:20 POC Glucose (mg/dL) 153 H (75-99) mg/dL Assessment and Plan Assessment: Shortness of breath multifactorial secondary to acute asthma/COPD exacerbation along with morbid obesity/obesity hypoventilation. No evidence of pneumonia as per CT. Possible obstructive sleep apnea Recent admission with asthma exacerbation Pulmonary hypertension History of influenza and pneumonia in early this year Hypothyroidism Restless leg syndrome History of coronary disease with stent placement 2 Degenerative joint disease Chronic CHF with diastolic dysfunction ejection fraction 55-60% Anxiety and depression, bereavement Morbid obesity BMI 55 Stable calcified brain lesion. Follow-up with her neurologist at [facility] DVT prophylaxis Plan: Patient will be continued on DuoNeb's and methylprednisolone 60 mg every 8. Pulmonary is following. CTA chest was done showed no evidence of pulmonary embolism. We will continue the home medications and follow closely. Further recommendations based on the clinical course. Prognosis is guarded with multiple medical problems and comorbid conditions. 01/26/2018 Continue current medication regime ,monitoring and symptomatic treatment. Psychiatry consult in place with recommendations pending. Discharge planning in progress pending pulmonary clearance. The impression and plan of care has been dictated as directed. : I performed a history and examination of this patient, discussed the same with the dictator. I agree with the dictator's note ,documented as a scribe. Any additional findings or plans will be noted.
[2018-01-27] MEDS: MELATONIN 3 MG TABLET PO SCH (20:59)
[2018-01-27] MEDS: PRAMIPEXOLE 0.25 MG TAB PO SCH (20:59)
[2018-01-27] MEDS ORDERED: MIRTAZAPINE 15 MG TAB PO SCH ×2 (21:00)
[2018-01-27 21:11] LABS: Glucose,Whole Blood 165 mg/dL (75-99)
[2018-01-27] MEDS: hydrOXYzine PAMOATE 25 MG CAP PO SCH (21:19)
[2018-01-28] MEDS: MORPHINE SULFATE 2 MG/ML SYRINGE IV PRN ×4 (01:38→14:28)
[2018-01-28] MEDS: LORazepam 0.5 MG TAB PO PRN ×2 (05:42→12:19)
[2018-01-28] MEDS: LEVOTHYROXINE 100 MCG TAB PO SCH (06:54)
[2018-01-28 07:23] LABS: Glucose,Whole Blood 184 mg/dL (75-99)
[2018-01-28] MEDS: IPRATROPIUM-ALBUTEROL 3 ML NEB INHALATION SCH ×3 (07:24→15:50)
[2018-01-28] MEDS: INSULIN ASPART 100 UNIT/ML 1 ML 10 ML VIAL SQ SCH ×2 (08:08→12:19)
[2018-01-28] MEDS: HEPARIN SODIUM,PORCINE 5,000 UNIT/ML 1 ML VIAL SQ SCH (08:08)
[2018-01-28] MEDS: PANTOPRAZOLE 40 MG TABLET PO SCH (08:08)
[2018-01-28] MEDS: methylPREDNISolone SOD SUCCI 40 MG/ML 1 ML VIAL IV SCH (08:08)
[2018-01-28] MEDS: HYDROcodone/APAP 5-325MG 1 EACH TAB PO PRN ×2 (08:13→12:19)
[2018-01-28 11:54] LABS: Glucose,Whole Blood 162 mg/dL (75-99)
--- NOTE | 2018-01-28 12:35 | P.DS ---
Providers Date of admission: 01/22/18 23:52 Expected date of discharge: 01/28/18 Attending physician: Carine Miller Final Diagnoses: Shortness of breath multifactorial secondary to acute asthma/COPD exacerbation along with morbid obesity/obesity hypoventilation. No evidence of pneumonia as per CT. Possible obstructive sleep apnea Recent admission with asthma exacerbation Pulmonary hypertension History of influenza and pneumonia in early this year Hypothyroidism Restless leg syndrome History of coronary disease with stent placement 2 Degenerative joint disease Chronic CHF with diastolic dysfunction ejection fraction 55-60% Anxiety and depression, bereavement Morbid obesity BMI 55 Stable calcified brain lesion. Follow-up with her neurologist at [facility] course:Acute COPD exacerbation Patient is a 67-year-old female with a known history of smoking, history of influenza and pneumonia in November 2017, recent admission with COPD/asthma exacerbation and was discharged on 01/07/2018 came back to the hospital with sudden onset of shortness of breath. Patient also has history of coronary artery disease and stent placement, colitis, IBS, urinary incontinence, uterine cancer with surgery, severe peptic/esophageal ulcer, prolapsed.heart valve, chronic back pain and herniated disc at multiple levels, fracture of the stepmom 2 and chronic sternal pain, hypothyroidism, bilateral lower extremity swelling and osteoarthritis and multiple other medical problems. Patient has multiple admissions due to asthma/COPD exacerbation. patient was not a smoker in the past..Patient does have sudden onset of shortness of breath along with chest pain right anterior retrosternal worsens with deep breathing. Denied any sputum production patient does have cough but no sputum production. No fever no chills. Patient does have worsening shortness of breath and wheezing associated with chest discomfort last couple of days but her symptoms suddenly got worse before admission. She states that there is no increased lower extremity edema. Denies nausea vomiting abdominal pain however she does intermittently have chest pain. She took breathing treatments at home and the ambulance with steroids without improvement. Chest x-ray showed no active cardiopulmonary process CT angiogram showed no evidence of pulmonary embolism. Findings suggest pulmonary hypertension. Mild diffuse bronchial wall thickening could reflect bronchitis or asthma. Troponin 1 negative. BNP 354 Evaluated by pulmonary and psychiatry. Maintained on nebulized bronchodilators , IV steroids. Significant clinical improvement. Cleared by pulmonary for discharge. Patient became very emotionally upset due to her financial status and unable to pay her rent as well. Recently, her . Evaluated by psychiatry and community mental health recommended at discharge. Patient is being discharged to [facility] subacute rehab. In a stable condition with guarded prognosis. EXAM: GENERAL:Patient is sitting up in the bed comfortably, no acute distress, awake alert and oriented. CHEST EXAMINATION: Trachea is central. Symmetrical expansion. Bilateral basilar diminished air entry. Poor respiratory effort and diminished air movement CARDIAC: Normal S1, S2 with no gallops. No murmurs ABDOMEN: Soft. Bowel sounds normal. No organomegaly. No abdominal bruits. Neurologically awake, alert, oriented x3 with well-coordinated movements. No focal deficits noted Psychiatric: Cooperative. Nonsuicidal The impression and plan of care has been dictated as directed. : I performed a history and examination of this patient, discussed the same with the dictator. I agree with the dictator's note ,documented as a scribe. Any additional findings or plans will be noted. Time taken: 35 minutes Consults: 01/22/18 23:52 Consult Physician Routine Consulting Provider: Peter Howard Consult Reason/Comments: COPD exacerbation Do you want consulting provider notified?: Yes 01/25/18 18:46 Consult Physician Routine Consulting Provider: French Mcclendon Consult Reason/Comments: depression Do you want consulting provider notified?: Yes Primary care physician: Jorje Domingo Patient Condition at Discharge: Stable Plan - Discharge Summary Discharge Rx Participant: Yes New Discharge Prescriptions: New Acetaminophen Tab [Tylenol] 650 mg PO Q6HR PRN tab PRN Reason: Mild Pain Or Fever > 100.5 HYDROcodone/APAP 5-325MG [[place] 5-325] 1 each PO Q4HR PRN #18 tab PRN Reason: Moderate Pain Ipratropium-Albuterol Nebulize [Duoneb 0.5 mg-3 mg/3 ml Soln] 3 ml INHALATION RT-QID ampul.neb Ipratropium-Albuterol Nebulize [Duoneb 0.5 mg-3 mg/3 ml Soln] 3 ml INHALATION Q4H PRN ampul.neb PRN Reason: Shortness Of Breath Or Wheezing LORazepam [Ativan] 0.5 mg PO Q6HR PRN #12 tab PRN Reason: Anxiety Mirtazapine [Remeron] 15 mg PO HS tab predniSONE 10 mg PO DIRECTED #30 tab Continue Omeprazole 20 mg PO BID Melatonin 6 mg PO HS Levothyroxine Sodium [Synthroid] 100 mcg PO DAILY hydrOXYzine PAMOATE [Vistaril] 25 mg PO HS Pramipexole [Mirapex] 0.25 mg PO HS Discontinued Albuterol Nebulized [Ventolin Nebulized] 2.5 mg INHALATION RT-QID PRN PRN Reason: Shortness Of Breath Albuterol Inhaler [Ventolin Hfa Inhaler] 1 - 2 puff INHALATION RT-Q6H PRN PRN Reason: Shortness Of Breath Or Wheezing Hydrocodone/Acetaminophen [[place] 10-325] 1 - 2 tab PO Q6HR PRN PRN Reason: Pain Discharge Medication List Levothyroxine Sodium [Synthroid] 100 mcg PO DAILY 11/10/17 [History] Melatonin 6 mg PO HS 11/10/17 [History] Omeprazole 20 mg PO BID 11/10/17 [History] hydrOXYzine PAMOATE [Vistaril] 25 mg PO HS 01/22/18 [History] Pramipexole [Mirapex] 0.25 mg PO HS 01/23/18 [History] Acetaminophen Tab [Tylenol] 650 mg PO Q6HR PRN tab 01/28/18 [Rx] HYDROcodone/APAP 5-325MG [[place] 5-325] 1 each PO Q4HR PRN #18 tab 01/28/18 [Rx] Ipratropium-Albuterol Nebulize [Duoneb 0.5 mg-3 mg/3 ml Soln] 3 ml INHALATION Q4H PRN ampul.neb 01/28/18 [Rx] Ipratropium-Albuterol Nebulize [Duoneb 0.5 mg-3 mg/3 ml Soln] 3 ml INHALATION RT -QID ampul.neb 01/28/18 [Rx] LORazepam [Ativan] 0.5 mg PO Q6HR PRN #12 tab 01/28/18 [Rx] Mirtazapine [Remeron] 15 mg PO HS tab 01/28/18 [Rx] predniSONE 10 mg PO DIRECTED #30 tab 01/28/18 [Rx] Follow up Appointment(s)/Referral(s): Jorje Domingo MD [Primary Care Provider] - 1 Week (After discharge from subacute rehab) Nitish Olivares MD [REFERRING] - 3 Days (at [facility]) [facility] mental health, psychiatry [Other] - 1 Week Neurology, DrSukhjinder patient's own [place] [Other] - 2 Weeks Peter Howard MD [STAFF PHYSICIAN] - 2 Weeks Activity/Diet/Wound Care/Special Instructions: [facility] Diet: Cardiac Activity: Limited until follow up CBC, BMP in 3 days
[2018-01-28 15:05] VITALS: BP 156/94; PULSE 103; RESP 20; TEMP 98.4
--- NOTE | 2018-01-28 19:17 | P.PN ---
Subjective Progress Note Date: 01/27/18 Progress note being dictated for Dr. Miller. Acute COPD exacerbation Patient is a 67-year-old female with a known history of smoking, history of influenza and pneumonia in November 2017, recent admission with COPD/asthma exacerbation and was discharged on 01/07/2018 came back to the hospital with sudden onset of shortness of breath. Patient also has history of coronary artery disease and stent placement, colitis, IBS, urinary incontinence, uterine cancer with surgery, severe peptic/esophageal ulcer, prolapsed.heart valve, chronic back pain and herniated disc at multiple levels, fracture of the stepmom 2 and chronic sternal pain, hypothyroidism, bilateral lower extremity swelling and osteoarthritis and multiple other medical problems. Patient has multiple admissions due to asthma/COPD exacerbation. patient was not a smoker in the past..Patient does have sudden onset of shortness of breath along with chest pain right anterior retrosternal worsens with deep breathing. Denied any sputum production patient does have cough but no sputum production. No fever no chills. Patient does have worsening shortness of breath and wheezing associated with chest discomfort last couple of days but her symptoms suddenly got worse before admission. She states that there is no increased lower extremity edema. Denies nausea vomiting abdominal pain however she does intermittently have chest pain. She took breathing treatments at home and the ambulance with steroids without improvement. Chest x-ray showed no active cardiopulmonary process CT angiogram showed no evidence of pulmonary embolism. Findings suggest pulmonary hypertension. Mild diffuse bronchial wall thickening could reflect bronchitis or asthma. Troponin 1 negative. BNP 354 01/24/2018 Patient is still complaining of shortness of breath with walking. Otherwise resting comfortably. Patient refused to use BiPAP at this time. Otherwise patient is being continued on IV steroids and breathing treatments. Patient became very emotionally upset due to her financial status and unable to pay her rent as well. We will Case management and social work will come to be consulted. We'll consult psychiatry as well. Pulmonary is following. No complaints of chest pain. No fever no chills. No nausea vomiting or abdominal pain. 01/25/2018 Today patient says that she feels better but still having right sided chest pain with deep breathing. No fever no chills. Patient is being continued on IV steroids and breathing treatments. Patient refuses to use BiPAP machine. Patient also refused to get bilateral lower extremity duplex scan due to pain with the procedure. No fever no chills. No other acute overnight issues. All other review of systems negative except the above Current medications reviewed 01/26/2018 no overnight events. Feeling better. 01/27/2018 no overnight events. Afebrile, maintaining O2 sats in the 90s on room air. Good diet intake. Evaluated by psychiatry with recommendations noted. Objective - Vital Signs Vital signs: Vital Signs Temp 98.8 F 01/27/18 15:00 Pulse 91 01/27/18 15:00 Resp 16 01/27/18 15:00 BP 158/83 01/27/18 15:00 Pulse Ox 92 L 01/27/18 15:00 Intake & Output 01/27/18 01/27/18 01/28/18 06:59 18:59 06:59 Intake Total 200 Balance 200 Weight 146.51 kg 146.51 kg Intake: Oral 200 Other: Voiding Method Bedside Commode Bedside Commode # Voids 1 2 # Bowel Movements 0 1 - Exam Patient is sitting up in the bed comfortably, no acute distress, awake alert and oriented, teary-eyed. HEENT: Normocephalic. Neck is supple. Pupils reactive. Nostrils clear. Oral cavity is moist. Neck reveals no JVD, carotid bruits, or thyromegaly. CHEST EXAMINATION: Trachea is central. Symmetrical expansion. Bilateral basilar diminished air entry. Poor respiratory effort and diminished air movement CARDIAC: Normal S1, S2 with no gallops. No murmurs ABDOMEN: Soft. Bowel sounds normal. No organomegaly. No abdominal bruits. Extremities: Trace edema. No clubbing or cyanosis Neurologically awake, alert, oriented x3 with well-coordinated movements. No focal deficits noted Skin: No rash or skin lesions. Psychiatric: Cooperative. Nonsuicidal Musculoskeletal: No joint swelling or deformity. Normal range of motion. - Labs CBC & Chem 7: 01/23/18 07:39 01/23/18 07:39 Labs: Abnormal Lab Results - Last 24 Hours (Table) 01/27/18 01/27/18 01/27/18 Range/Units 07:05 11:37 17:07 POC Glucose (mg/dL) 124 H 107 H 157 H (75-99) mg/dL Assessment and Plan Assessment: Shortness of breath multifactorial secondary to acute asthma/COPD exacerbation along with morbid obesity/obesity hypoventilation. No evidence of pneumonia as per CT. Possible obstructive sleep apnea Recent admission with asthma exacerbation Pulmonary hypertension History of influenza and pneumonia in early this year Hypothyroidism Restless leg syndrome History of coronary disease with stent placement 2 Degenerative joint disease Chronic CHF with diastolic dysfunction ejection fraction 55-60% Anxiety and depression, bereavement Morbid obesity BMI 55 Stable calcified brain lesion. Follow-up with her neurologist at [facility] DVT prophylaxis Plan: Patient will be continued on DuoNeb's and methylprednisolone 60 mg every 8. Pulmonary is following. CTA chest was done showed no evidence of pulmonary embolism. We will continue the home medications and follow closely. Further recommendations based on the clinical course. Prognosis is guarded with multiple medical problems and comorbid conditions. 01/26/2018 Continue current medication regime ,monitoring and symptomatic treatment. Psychiatry consult in place with recommendations pending. Discharge planning in progress pending pulmonary clearance. 01/27/2018 continue on current medication regime ,monitoring and symptomatic treatment. Spiritual consult offered, patient declined. Discussed discharge planning for tomorrow with patient, pending pulmonary clearance. The impression and plan of care has been dictated as directed. : I performed a history and examination of this patient, discussed the same with the dictator. I agree with the dictator's note ,documented as a scribe. Any additional findings or plans will be noted.
--- NOTE | 2018-01-28 19:29 | P.PN ---
Subjective Progress Note Date: 01/28/18 Principal diagnosis: Right-sided chest pain, acute asthma exacerbation, severe COPD, pulmonary hypertension, obstructive sleep apnea and sleep disorder breathing, generalized aches and pain all over the body from head to toe 01/28/2018, patient seen eval examined during the rounds is still a problem associated last Deisy leg syndrome but severity has improved has some ongoing cough congestion but severity has improved as well patient is being planned for possible discharge in extended care facility later on labs reviewed medications reviewed care plan discussed with the patient at length 01/27/2018, patient seen eval examined during the rounds clinically patient is not much change from baseline is still have generalized aches and pain is still episodes of shortness of breath and right-sided chest pain however severity has improved psychiatric services been following this patient as well 01/26/2018, patient seen eval examined during the rounds clinically patient is doing not much different from baseline is still complaining of chest pain shortness of breath she has pain in the Tiffani as well as pain in the legs she also complains of generalized headache as well patient is being evaluated for psychiatric about major depression, she has some nonproductive cough. labs reviewed medications reviewed, patient has refused the duplex ultrasound of the lower extremity 01/25/2018, patient seen eval examined during the rounds clinically overall not much change continued to have issues with the right-sided pleuritic chest pain severity however slightly better she is being treated for acute asthma with deep breathing exercise incentive spirometry bronchodilators and IV steroids also on peptic ulcer disease prophylaxis and DVT prophylaxis patient continue to refuse CPAP and/or BiPAP or evaluation for sleep disorder breathing and sleep apnea 01/24/2018, patient seen eval examined during the rounds clinically not much change some degree or shortness of breath and right-sided pleuritic chest pain is still present but severity has improved computed tomography scan of the chest findings reviewed no major filling defect are seen small peripheral emboli however cannot be excluded due to flow of the dye but overall appears less likely, finding of the bronchial wall inflammation is seen suggestive of ongoing bronchitis inflammatory changes also evidence of urinary hypertension is seen patient however continued to refuse using BiPAP or CPAP machine Miss Chinchilla is a 67-year-old morbidly obese female who was seen eval reexamined on fourth floor this patient has been admitted into the hospital with 2 day history of pleuritic type of chest pain on the right side 2 days ago patient woke up for severe degree of chest pain however it has some paroxysmal Petrin deep breathing does have ongoing shortness of breath off note that patient oxygen level usually is 96% however she had some borderline the saturation on 2- 4 L oxygen her saturation were ranging from 90-94%, she denies any cough or sputum production denies any night sweats fever or chills, denies any seizure- like to a loss of consciousness), denies any other bowel or bladder dysfunction , she does feel some increased swelling of the lower extremity however is present bilateral In addition to above patient has been complaining of severe degree of leg movements related to restless leg as she has not receive her Mirapex Objective - Vital Signs Vital signs: Vital Signs Temp 98.4 F 01/28/18 14:11 Pulse 103 H 01/28/18 14:11 Resp 20 01/28/18 14:11 BP 156/94 01/28/18 14:11 Pulse Ox 95 01/28/18 14:11 Intake & Output 01/28/18 01/28/18 01/29/18 06:59 18:59 06:59 Intake Total 840 Balance 840 Intake: Oral 840 Other: # Voids 1 1 # Bowel Movements 0 1 - Exam Head exam: Present: atraumatic, normocephalic, normal inspection Eye exam: Present: normal appearance, PERRL, EOMI. Absent: scleral icterus, conjunctival injection, periorbital swelling ENT exam: Present: normal exam, normal oropharynx Neck exam: Present: normal inspection. Absent: tenderness, meningismus, lymphadenopathy Respiratory exam: Present: Bilateral good air entrywith no significant wheeze or rhonchi rales or rub Noted Cardiovascular Exam: Present: normal rhythm, tachycardia GI/Abdominal exam: Present: soft. Absent: distended, tenderness, guarding, rebound, rigid Extremities exam: Present: normal inspection, full ROM Back exam: Present: normal inspection Neurological exam: Present: alert, oriented X3, CN II-XII intact Psychiatric exam: Present: normal affect, normal mood Skin exam: Present: warm, dry, intact, normal color. Absent: rash - Labs CBC & Chem 7: 01/23/18 07:39 01/23/18 07:39 Labs: Abnormal Lab Results - Last 24 Hours (Table) 01/27/18 01/28/18 01/28/18 Range/Units 21:05 07:18 11:50 POC Glucose (mg/dL) 165 H 184 H 162 H (75-99) mg/dL Assessment and Plan Assessment: Generalized aches and pain all over the body Major depression Acute onset of chest pain and shortness of breath appeared to be related to acute asthma as well as musculoskeletal pain reviewed spiral CT scan of the chest, major pulmonary embolism less likely Acute asthma exacerbation initiate and maintain patient on steroids breathing treatments and monitor clinical course closely Severe morbid obesity along with baseline sleep disorder breathing and sleep apnea, patient Pulmonary hypertension multifactorial Polysomnogram as well as CPAP and/or or BiPAP machine in if patient agreeable History of coronary artery disease myocardial infarction Degenerative joint disease osteoarthritis especially of the spine with multiple herniated disc C. difficile infection by history History of atrial fibrillation in the past Plan: Reviewed computed tomography scan of the chest deep breathing exercise incentive spirometry Bronchodilators and IV steroids, steroids can be switched to oral Further recommendations pending plan of care as per clinical response of the patient Maintain patient on DVT and peptic ulcer disease prophylaxis Check duplex ultrasound of the lower extremity when patient is agreeable however currently patient is refusing it
--- NOTE | 2018-02-01 07:34 | CDI ---
Last Revision, July 2017 Documentation Clarification Form Date: 01/25/2018 2:54:00 PM From: Dulce uW Admit Date: 01/22/2018 11:52:00 PM Patient Name: Renée Krishnan Visit Number: [id number] Discharge Date: 01/29/28 ATTENTION: The Clinical Documentation Specialists (CDI) and [facility] Coding Staff appreciate your assistance in clarifying documentation. Please respond to the clarification below the line at the bottom and electronically sign. The CDI & [facility] Coding staff will review the response and follow-up if needed. Please note: Queries are made part of the Legal Health Record. If you have any questions, please contact the author of this message via ITS. Dr. Peter Howard, Asthma is documented in the consult note 01/23 and your progress notes 01/24 and 01/25. Patient presented with shortness of breath. Patient history/risk factors: smoker, pneumonia, copd, asthma, UTIs angina, chf , gi bleed, VT, OA, renal dx. , skin disorder, hypothyroid , uterine cancer, severe ulcers, , murmur, prolapsed heart valve, chronic back pain, bilateral lower leg edema, cdiff, morbid obesity Clinical Indicators: Radiology: CHEST CTA: pulmonary arterial htn, no PE, mild diffuse bronchial wall thickening reflect bronchitis or asthma Vital Signs on admission: t 99.7, p 105, R 24, 177/72, 98% 4L Treatment: Medication: Duoneb, IV Solu-Medrol Consults: pulmonary 4L nasal cannula In your professional opinion, can you please further specify the following, if known? Severity: Mild intermittent Mild persistent Moderate persistent Severe persistent Other, please specify Unable to determine Please continue to document in your progress notes, under the line below and/or in the discharge summary in order to capture severity of illness and risk of mortality. Include clinical findings that support your diagnosis. MTDD
== END 2018-01-28 15:55 | DRG 202 ==
LOC: EC 19:46 → 4MS4W 23:52
PROVIDERS: ADMIT Hospitalist; ATTEND Hospitalist
DX: J45.901 Unspecified asthma with (acute) exacerbation (principal); J44.1 Chronic obstructive pulmonary disease with (acute) exacerbation; I50.32 Chronic diastolic (congestive) heart failure; Z68.43 Body mass index [BMI] 50.0-59.9, adult; E66.2 Morbid (severe) obesity with alveolar hypoventilation; Z88.5 Allergy status to narcotic agent; I27.20 Pulmonary hypertension, unspecified; M51.24 Other intervertebral disc displacement, thoracic region; G47.33 Obstructive sleep apnea (adult) (pediatric); G25.81 Restless legs syndrome; I25.10 Atherosclerotic heart disease of native coronary artery without angina pectoris; F32.9 Major depressive disorder, single episode, unspecified; F41.9 Anxiety disorder, unspecified; I25.2 Old myocardial infarction; R09.02 Hypoxemia; G93.9 Disorder of brain, unspecified; G89.29 Other chronic pain; I34.1 Nonrheumatic mitral (valve) prolapse; M47.9 Spondylosis, unspecified; E03.9 Hypothyroidism, unspecified; K58.9 Irritable bowel syndrome, unspecified; R32 Unspecified urinary incontinence; M51.27 Other intervertebral disc displacement, lumbosacral region; M51.26 Other intervertebral disc displacement, lumbar region; L30.9 Dermatitis, unspecified; Z71.3 Dietary counseling and surveillance; Z79.890 Hormone replacement therapy; Z79.899 Other long term (current) drug therapy; Z87.01 Personal history of pneumonia (recurrent); Z87.11 Personal history of peptic ulcer disease; Z87.440 Personal history of urinary (tract) infections; Z85.42 Personal history of malignant neoplasm of other parts of uterus; Z87.19 Personal history of other diseases of the digestive system; Z87.81 Personal history of (healed) traumatic fracture; Z91.410 Personal history of adult physical and sexual abuse; Z87.442 Personal history of urinary calculi; Z86.19 Personal history of other infectious and parasitic diseases; Z90.710 Acquired absence of both cervix and uterus; Z96.651 Presence of right artificial knee joint; Z96.652 Presence of left artificial knee joint; Z96.642 Presence of left artificial hip joint; Z87.448 Personal history of other diseases of urinary system; Z87.891 Personal history of nicotine dependence; Z95.5 Presence of coronary angioplasty implant and graft; Z86.79 Personal history of other diseases of the circulatory system; Z90.49 Acquired absence of other specified parts of digestive tract; Z63.4 Disappearance and death of family member; Z88.8 Allergy status to other drugs, medicaments and biological substances; Z91.041 Radiographic dye allergy status; Z82.49 Family history of ischemic heart disease and other diseases of the circulatory system; Z80.1 Family history of malignant neoplasm of trachea, bronchus and lung; Z83.49 Family history of other endocrine, nutritional and metabolic diseases; Z82.3 Family history of stroke; Z80.52 Family history of malignant neoplasm of bladder
CPT/HCPCS: 36415; 71046; 71275; 80048; 83880; 84484; 85025; 93005; 94640; 94760; 96374; 96375; 99285

== ENCOUNTER 2018-02-19 20:18 | Emergency (ER) | payer MEDICARE, OTHER ==
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
[2018-02-19] MEDS ORDERED: MORPHINE SULFATE 4 MG/ML SYRINGE IVP STA (21:25)
[2018-02-19] MEDS ORDERED: ONDANSETRON 4 MG/2 ML VIAL IVP STA (21:25)
[2018-02-19 22:09] VITALS: RESP 18
--- NOTE | 2018-02-19 22:55 | CT ---
EXAMINATION TYPE: CT brain duine wo con DATE OF EXAM: 02/19/2018 COMPARISON: 12/29/2017 HISTORY: fall headache. Neck pain. CT DLP: 2019.4 mGycm Automated exposure control for dose reduction was used. TECHNIQUE: CT scan of the head and cervical spine are performed without contrast. FINDINGS: Ventricles have fairly normal size. There is no mass effect nor midline shift. There is n o sign of intracranial hemorrhage. There is mild atrophy. There is calcified sellar mass noted. This is centered at the anterior clinoid process in the midline. The mass is rounded and measures 1.8 cm i n diameter. There is 8 mm bony density which appears to be an exostosis of the inner table of the rig ht temporal bone in the middle cranial fossa. There is mild straightening of the cervical vertebra. There is spurring of the endplates from C4 to T 1. Posterior elements are intact. There is mild hypertrophic facet arthropathy. There is intact skull base. IMPRESSION: Calcified intracranial masses appear extra-axial and appears stable compared to old CT scan. No acute intracranial abnormality. Spondylotic changes in the cervical spine. No fracture. Cervical spine is stable compared to 6.
--- NOTE | 2018-02-19 23:08 | XR ---
EXAMINATION TYPE: XR lumbar spine 2 or 3V DATE OF EXAM: 02/19/2018 COMPARISON: 06/29/2017 HISTORY: Low back pain TECHNIQUE: 4 views FINDINGS: Lumbar vertebra have normal alignment. There is disc space narrowing from L3 to S1. Exam is limited by the patient size. There is spurring of the endplates. Posterior elements appear intact. S acroiliac joints are intact. IMPRESSION: No fracture seen. Spondylotic changes. Limited exam. No change.
--- NOTE | 2018-02-19 23:10 | XR ---
EXAMINATION TYPE: XR pelvis AP view DATE OF EXAM: 02/19/2018 COMPARISON: 09/15/2016 HISTORY: Pain TECHNIQUE: Single view FINDINGS: There is a left hip prosthesis. Components appear in anatomic position. Pelvic ring is inta ct. Sacroiliac joints appear intact. Proximal right femur and hip joint appear intact. IMPRESSION: Normal exam. No change compared to old exam.
[2018-02-19 23:11] VITALS: PULSE 99
[2018-02-19] MEDS ORDERED: Acetaminophen-Codeine 300-30mg TAB PO STA (23:16)
[2018-02-19] MEDS ORDERED: ACET/COD 300 MG/30 MG STARTER PACK 6 TAB BTL PO STA (23:16)
[2018-02-20 00:03] VITALS: BP 144/65; TEMP 98.8
== END 2018-02-20 00:02 | disposition home or self-care (01) ==
LOC: EC 20:18
DX: S09.90XA Unspecified injury of head, initial encounter (principal); M54.5 Low back pain; I50.9 Heart failure, unspecified; I25.2 Old myocardial infarction; E03.9 Hypothyroidism, unspecified; Z85.42 Personal history of malignant neoplasm of other parts of uterus; Z95.818 Presence of other cardiac implants and grafts; Z96.652 Presence of left artificial knee joint; Z96.643 Presence of artificial hip joint, bilateral; Z79.899 Other long term (current) drug therapy; Z91.041 Radiographic dye allergy status; Z88.6 Allergy status to analgesic agent; Z88.8 Allergy status to other drugs, medicaments and biological substances; W19.XXXA Unspecified fall, initial encounter; Y92.009 Unspecified place in unspecified non-institutional (private) residence as the place of occurrence of the external cause
CPT/HCPCS: 72100; 72170; 72125; 70450; 99284; 96374; 96375; J2270; J2405

== ENCOUNTER 2018-03-17 21:15 | Emergency (ER) | payer MEDICARE, OTHER ==
[2018-03-17] MEDS ORDERED: IPRATROPIUM-ALBUTEROL 3 ML NEB INHALATION STA ×3 (21:17→23:11)
[2018-03-17] MEDS ORDERED: methylPREDNISolone SOD SUCCI 125 MG/2 ML VIAL IV STA (21:17)
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
--- NOTE | 2018-03-17 21:40 | XR ---
EXAMINATION TYPE: XR chest 1V portable DATE OF EXAM: 03/17/2018 COMPARISON: 01/22/2018 HISTORY: Short of breath TECHNIQUE: Single frontal view of the chest is obtained. FINDINGS: Heart is normal. Thoracic aorta is atheromatous. Costophrenic angles are clear. Bony thora x is intact. IMPRESSION: No active cardiopulmonary disease. No change.
[2018-03-17] MEDS ORDERED: MORPHINE SULFATE 4 MG/ML SYRINGE IVP STA ×2 (21:57→23:09)
[2018-03-17] MEDS ORDERED: ONDANSETRON 4 MG/2 ML VIAL IVP STA (21:57)
[2018-03-17 23:00] LABS: Basophils % (A) 0 %; Eosinophils # (A) 0.3 k/uL (0-0.7); Eosinophils % (A) 4 %; HCT 33.7 % (34.0-46.0); HGB 10.9 gm/dL (11.4-16.0); Lymphocytes # (A) 1.5 k/uL (1.0-4.8); Lymphocytes % (A) 18 %; MCH 26.4 pg (25.0-35.0); MCHC 32.5 g/dL (31.0-37.0); MCV 81.3 fL (80.0-100.0); Mean Platelet Volume 8.1; Monocytes # (A) 0.5 k/uL (0-1.0); Monocytes % (A) 6 %; Neutrophils # (A) 5.7 k/uL (1.3-7.7); Neutrophils % (A) 70 %; Platelet Count 271 k/uL (150-450); RBC 4.14 m/uL (3.80-5.40); RDW 15.5 % (11.5-15.5); WBC 8.2 k/uL (3.8-10.6)
[2018-03-17 23:06] LABS: Prothrombin Time 10.1 sec (9.0-12.0)
[2018-03-17 23:09] LABS: ALT 30 U/L (9-52); AST 19 U/L (14-36); Albumin 3.4 g/dL (3.5-5.0); Alkaline Phosphatase 83 U/L (38-126); Anion Gap 7 mmol/L; Blood Urea Nitrogen 10 mg/dL (7-17); Calcium 8.8 mg/dL (8.4-10.2); Carbon Dioxide 25 mmol/L (22-30); Chloride 107 mmol/L (98-107); Glucose 127 mg/dL (74-99); Magnesium 1.7 mg/dL (1.6-2.3); Sodium 139 mmol/L (137-145); Total Bilirubin 0.2 mg/dL (0.2-1.3); Total Protein 5.9 g/dL (6.3-8.2)
[2018-03-17 23:20] LABS: Partial Thromboplastin Time 21.7 sec (22.0-30.0)
[2018-03-17 23:26] LABS: Creatine Kinase 33 U/L (30-135)
[2018-03-17 23:38] LABS: Creatine Kinase MB 0.5 ng/mL (0.0-2.4); Troponin I <0.012 ng/mL (0.000-0.034)
[2018-03-18 00:36] VITALS: BP 153/74; PULSE 98; RESP 20; TEMP 98.4
== END 2018-03-18 00:35 | disposition home or self-care (01) ==
LOC: EC 21:15
DX: J44.0 Chronic obstructive pulmonary disease with (acute) lower respiratory infection (principal); J20.9 Acute bronchitis, unspecified; E03.9 Hypothyroidism, unspecified; F41.9 Anxiety disorder, unspecified; Z79.899 Other long term (current) drug therapy; Z88.5 Allergy status to narcotic agent; Z88.6 Allergy status to analgesic agent; Z88.8 Allergy status to other drugs, medicaments and biological substances; Z91.041 Radiographic dye allergy status; Z85.42 Personal history of malignant neoplasm of other parts of uterus; Z87.19 Personal history of other diseases of the digestive system; Z87.2 Personal history of diseases of the skin and subcutaneous tissue; Z98.890 Other specified postprocedural states; Z80.1 Family history of malignant neoplasm of trachea, bronchus and lung
CPT/HCPCS: 36415; 94640 ×2; 93005; 83880; 80053; 82550; 82553; 83735; 84484; 85025; 85610; 85730; 71045; 99285; 96374; 96375 ×2; 96376; J2270; J2930; J2405

== ENCOUNTER 2018-03-19 16:59 | Inpatient (IN) | payer MEDICARE, OTHER ==
[2018-03-19] MEDS ORDERED: ONDANSETRON 4 MG/2 ML VIAL IVP STA (17:19)
[2018-03-19] MEDS ORDERED: MORPHINE SULFATE 4 MG/ML SYRINGE IV STA (17:19)
[2018-03-19] MEDS ORDERED: SODIUM CHLORIDE 0.9% 1,000 ML IV STA (17:19)
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
[2018-03-19 17:32] LABS: Basophils % (A) 0 %; Eosinophils # (A) 0.2 k/uL (0-0.7); Eosinophils % (A) 1 %; HCT 37.3 % (34.0-46.0); HGB 11.9 gm/dL (11.4-16.0); Lymphocytes # (A) 1.3 k/uL (1.0-4.8); Lymphocytes % (A) 10 %; MCH 26.1 pg (25.0-35.0); MCV 81.7 fL (80.0-100.0); Mean Platelet Volume 6.8; Monocytes # (A) 0.5 k/uL (0-1.0); Monocytes % (A) 4 %; Neutrophils # (A) 11.2 k/uL (1.3-7.7); Neutrophils % (A) 84 %; Platelet Count 360 k/uL (150-450); RBC 4.57 m/uL (3.80-5.40); RDW 15.7 % (11.5-15.5); WBC 13.3 k/uL (3.8-10.6)
[2018-03-19 17:42] LABS: ALT 28 U/L (9-52); AST 20 U/L (14-36); Albumin 4.1 g/dL (3.5-5.0); Alkaline Phosphatase 107 U/L (38-126); Amylase 65 U/L (30-110); Anion Gap 10 mmol/L; Blood Urea Nitrogen 12 mg/dL (7-17); Calcium 9.3 mg/dL (8.4-10.2); Carbon Dioxide 23 mmol/L (22-30); Chloride 107 mmol/L (98-107); Glucose 102 mg/dL (74-99); Lipase 53 U/L (23-300); Potassium 4.3 mmol/L (3.5-5.1); Sodium 140 mmol/L (137-145); Total Bilirubin 0.5 mg/dL (0.2-1.3); Total Protein 6.6 g/dL (6.3-8.2)
[2018-03-19 17:48] LABS: Partial Thromboplastin Time 22.8 sec (22.0-30.0)
[2018-03-19 17:58] LABS: Creatine Kinase 70 U/L (30-135)
[2018-03-19 18:11] LABS: Creatine Kinase MB 1.5 ng/mL (0.0-2.4); Troponin I <0.012 ng/mL (0.000-0.034)
[2018-03-19] MEDS ORDERED: FAMOTIDINE 20 MG/2 ML VIAL IV STA (18:42)
[2018-03-19] MEDS ORDERED: diphenhydrAMINE 50 MG/ML 1 ML VIAL IVP STA (18:42)
[2018-03-19] MEDS ORDERED: methylPREDNISolone SOD SUCCI 125 MG/2 ML VIAL IV STA (18:42)
--- NOTE | 2018-03-19 18:52 | XR ---
EXAMINATION TYPE: XR chest 2V DATE OF EXAM: 03/19/2018 COMPARISON: 03/17/2018 HISTORY: Fall TECHNIQUE: Frontal and lateral views of the chest are obtained. FINDINGS: There is no heart failure nor confluent pneumonic infiltrate. Costophrenic angles are santiago r. Bony thorax is intact. Heart size is normal. IMPRESSION: No active cardiopulmonary disease. No change.
--- NOTE | 2018-03-19 18:54 | XR ---
EXAMINATION TYPE: XR KUB DATE OF EXAM: 03/19/2018 COMPARISON: 02/28/2017 HISTORY: Abdominal pain TECHNIQUE: 4 views supine FINDINGS: There is no sign of intestinal obstruction or pneumoperitoneum. There is left hip prosthesi s. There are no pathologic calcification over the kidneys. IMPRESSION: Nonacute abdomen. No change.
--- NOTE | 2018-03-19 19:01 | XR ---
EXAMINATION TYPE: XR lumbar spine 2 or 3V DATE OF EXAM: 03/19/2018 COMPARISON: 02/19/2018 HISTORY: Back pain TECHNIQUE: 3 views FINDINGS: There is spurring in the lumbar spine. Vertebra have normal alignment. Exam is limited by t he patient's size. There is no compression fracture. Sacroiliac joints appear intact. IMPRESSION: Spondylotic changes. No fracture seen. No change.
[2018-03-19] MEDS ORDERED: LORazepam 2 MG/ML INJ IV STA (20:01)
--- NOTE | 2018-03-19 20:15 | CT ---
EXAMINATION TYPE: CT abdomen pelvis w con DATE OF EXAM: 03/19/2018 COMPARISON: 02/02/2017 HISTORY: Back pain from fall yesterday. Frequent urination and diarrhea since fall. CT DLP: 2447 mGycm Automated exposure control for dose reduction was used. TECHNIQUE: Helical acquisition of images was performed from the lung bases through the pelvis. CONTRAST: Performed without Oral Contrast and with IV Contrast, patient injected with 100ml mL of Isovue M300. FINDINGS: The lung bases are clear. There is no pleural effusion. Liver and spleen appear normal. There is no p ancreatic mass. Bile ducts are not dilated. Gallbladder is not seen. There is no adrenal mass. Kidneys have normal size and contour. There is no hydronephrosis. There is no retroperitoneal adenopathy. There is no ascites. There is left hip prosthesis. Bladder distends sm oothly. There are numerous sigmoid diverticula. Exam is limited by the patient's size. There are spon dylotic changes in the thoracic and lumbar spine. There is no compression fracture. The bony pelvis a ppears intact. IMPRESSION: NO FRACTURE SEEN. NO EVIDENCE OF TRAUMATIC INJURY WITHIN THE ABDOMEN AND PELVIS. NO RENAL OBSTRUCTION . SIGMOID DIVERTICULOSIS.
[2018-03-19] MEDS ORDERED: SODIUM CHLORIDE 0.9% 1,000 ML IV ONE (20:24)
[2018-03-19] MEDS ORDERED: NALOXONE 0.4 MG/ML 1 ML VIAL IV PRN (20:24)
[2018-03-19] MEDS ORDERED: ACETAMINOPHEN TAB 325 MG TAB PO PRN (20:24)
[2018-03-19] MEDS ORDERED: LORazepam 2 MG/ML INJ IV PRN (20:24)
[2018-03-19 20:40] LABS: Appearance,Urine Clear (Clear); Bilirubin,Urine Negative (Negative); Blood,Urine Negative (Negative); Color,Urine Light Yellow; Glucose,Urine (UA) Negative (Negative); Ketones,Urine Negative (Negative); Leukocyte Esterase,Urine Negative (Negative); Nitrite,Urine Negative (Negative); Protein,Urine Negative (Negative); Specific Gravity,Urine 1.043 (1.001-1.035); Urobilinogen,Urine <2.0 mg/dL (<2.0)
[2018-03-19] MEDS: MORPHINE SULFATE 4 MG/ML SYRINGE IV PRN (21:38)
[2018-03-20] MEDS: PANTOPRAZOLE 40 MG TABLET PO SCH ×2 (01:08→08:05)
[2018-03-20] MEDS: MIRTAZAPINE 15 MG TAB PO SCH ×2 (01:08→20:27)
[2018-03-20] MEDS: hydrOXYzine PAMOATE 25 MG CAP PO SCH ×2 (01:08→20:26)
[2018-03-20] MEDS: PRAMIPEXOLE 0.25 MG TAB PO SCH ×2 (01:09→20:27)
[2018-03-20] MEDS: HYDROcodone/APAP 10-325MG 1 EACH TAB PO PRN ×4 (01:09→20:26)
[2018-03-20] MEDS: PREGABALIN 50 MG CAP PO SCH ×4 (01:11→20:26)
[2018-03-20] MEDS: LEVOTHYROXINE 100 MCG TAB PO SCH (05:54)
[2018-03-20] MEDS: ONDANSETRON 4 MG/2 ML VIAL IVP PRN (05:54)
[2018-03-20] MEDS: MORPHINE SULFATE 4 MG/ML SYRINGE IV PRN ×4 (05:55→18:49)
[2018-03-20 08:25] LABS: Basophils % (A) 0 %; Eosinophils % (A) 1 %; HGB 10.9 gm/dL (11.4-16.0); Lymphocytes # (A) 0.7 k/uL (1.0-4.8); Lymphocytes % (A) 11 %; MCH 26.5 pg (25.0-35.0); MCHC 32.2 g/dL (31.0-37.0); MCV 82.3 fL (80.0-100.0); Mean Platelet Volume 6.9; Monocytes # (A) 0.2 k/uL (0-1.0); Monocytes % (A) 3 %; Neutrophils # (A) 5.7 k/uL (1.3-7.7); Neutrophils % (A) 85 %; Platelet Count 290 k/uL (150-450); RBC 4.13 m/uL (3.80-5.40); RDW 15.2 % (11.5-15.5); WBC 6.8 k/uL (3.8-10.6)
[2018-03-20 08:32] LABS: ALT 26 U/L (9-52); AST 18 U/L (14-36); Albumin 3.5 g/dL (3.5-5.0); Alkaline Phosphatase 80 U/L (38-126); Anion Gap 8 mmol/L; Blood Urea Nitrogen 13 mg/dL (7-17); Calcium 8.6 mg/dL (8.4-10.2); Carbon Dioxide 25 mmol/L (22-30); Chloride 107 mmol/L (98-107); Glucose 143 mg/dL (74-99); Potassium 4.6 mmol/L (3.5-5.1); Sodium 140 mmol/L (137-145); Total Bilirubin 0.5 mg/dL (0.2-1.3)
[2018-03-20] MEDS: IPRATROPIUM-ALBUTEROL 3 ML NEB INHALATION SCH ×4 (08:42→19:41)
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
[2018-03-21] MEDS: MORPHINE SULFATE 4 MG/ML SYRINGE IV PRN ×4 (03:50→23:22)
[2018-03-21] MEDS: HYDROcodone/APAP 10-325MG 1 EACH TAB PO PRN ×3 (06:15→20:26)
[2018-03-21] MEDS: LEVOTHYROXINE 100 MCG TAB PO SCH (06:16)
[2018-03-21] MEDS: IPRATROPIUM-ALBUTEROL 3 ML NEB INHALATION SCH ×4 (07:36→19:42)
[2018-03-21] MEDS: PANTOPRAZOLE 40 MG TABLET PO SCH (09:15)
[2018-03-21] MEDS: PREGABALIN 50 MG CAP PO SCH ×3 (09:19→20:27)
[2018-03-21] MEDS: HEPARIN SODIUM,PORCINE 5,000 UNIT/ML 1 ML VIAL SQ SCH ×2 (15:18→23:17)
[2018-03-21] MEDS: hydrOXYzine PAMOATE 25 MG CAP PO SCH (20:26)
[2018-03-21] MEDS: PRAMIPEXOLE 0.25 MG TAB PO SCH (20:27)
[2018-03-21] MEDS: MIRTAZAPINE 15 MG TAB PO SCH (20:27)
--- NOTE | 2018-03-21 23:10 | P.PN ---
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 Patient was also complaining of some epigastric pain as well. Patient says that she was at [facility] due to her lower back pain and fall. Patient had imaging studies there and was sent home with home physical therapy. Patient says that yesterday she was walking in the hallway and was trying to put the phone at charging station and suddenly fell down and landed on her sacral area. She Has not taken her [place] today due to the nausea vomiting. Is having increased pain in her lower back she had a fall yesterday. She states she went to lean against the sink and slipped falling down. Denies any bowel or bladder incontinence or retention. Denies any saddle anesthesia. Denies any lumbar radiculopathy. Patient doesn't pain in the epigastric. The abdomen. Patient denies any recent fever, chills, shortness of breath, chest pain, dysuria or hematuria, headaches or visual changes, or any other complaints. Patient had multiple admissions previously with asthma exacerbation and chronic pain. CT of the abdominal pelvis showed no evidence of traumatic injury within the abdomen and pelvis. No renal obstruction. Lumbar spine x-ray showed spondylitic changes no fractures is seen. WBC 13.3 on admission. UA negative 03/21/2018 Patient denied any complaints of nausea vomiting today. Abdominal pain resolved. Otherwise still complaining of pain especially lower back. Pain is being controlled with pain medications. Otherwise patient will be continued on PT OT and possible arrange for home PT upon discharge. Anticipate discharged tomorrow. No fever no chills. Objective - Vital Signs Vital signs: Vital Signs Temp 99.4 F 03/21/18 14:59 Pulse 78 03/21/18 15:47 Resp 18 03/21/18 14:59 BP 112/55 03/21/18 14:59 Pulse Ox 96 03/21/18 14:59 Intake & Output 03/21/18 03/21/18 03/22/18 06:59 18:59 06:59 Other: Voiding Method Bedside Commode # Voids 2 1 - Exam PHYSICAL EXAMINATION: Patient is lying in the bed comfortably, no acute distress, awake alert and oriented.. Morbidly obese. HEENT: Normocephalic. Neck is supple. Pupils reactive. Nostrils clear. Oral cavity is moist. Ears reveal no drainage. Neck reveals no JVD, carotid bruits, or thyromegaly. CHEST EXAMINATION: Trachea is central. Symmetrical expansion. Bibasilar diminished air entry. Lung bah clear to auscultation and percussion. CARDIAC: Normal S1, S2 with no gallops. No murmurs ABDOMEN: Soft. Nontender. Bowel sounds normal. No organomegaly. No abdominal bruits. Extremities: reveal no edema. No clubbing or cyanosis Neurologically awake, alert, oriented x3 with well-coordinated movements. No focal deficits noted Skin: No rash or skin lesions. Psychiatric: Coperative. Nonsuicidal Musculoskeletal: No joint swelling or deformity. Normal range of motion. - Labs CBC & Chem 7: 03/20/18 07:41 03/20/18 07:41 Assessment and Plan Assessment: Acute lower back pain status post fall/mechanical. Continued with pain medications. Improving now. Continue with PT OT Abdominal pain with nausea and vomiting resolved now. CT of abdomen pelvis negative Previous multiple admissions with asthma exacerbation and chronic pain History of colitis and IBS Urinary incontinence History of severe peptic/esophageal ulcers. Mitral valve prolapse. Neck slight chronic back pain Urinary disc at T8 due to 4 and L4 to S1 Nephrolithiasis with passage stone history Osteoarthritis History of C. diff Anxiety and depression Coronary artery disease history of stent placement Morbid obesity BMI 60.0 Possible obesity hypoventilation syndrome DVT prophylaxis Plan: Patient be continued on morphine for pain. Continue with [place] and avoid IV pain medications. Symptomatic management for nausea and vomiting. Continue with the breathing treatments continue the home medications and follow closely. Anticipate to be discharged home with pain improvement otherwise. Prognosis is guarded with multiple medical problems and comorbid conditions. Time with Patient: Greater than 30
[2018-03-22] MEDS: MORPHINE SULFATE 4 MG/ML SYRINGE IV PRN ×5 (05:00→21:47)
[2018-03-22] MEDS: LEVOTHYROXINE 100 MCG TAB PO SCH (06:36)
[2018-03-22] MEDS: HYDROcodone/APAP 10-325MG 1 EACH TAB PO PRN ×3 (06:36→16:35)
[2018-03-22] MEDS: IPRATROPIUM-ALBUTEROL 3 ML NEB INHALATION SCH ×4 (08:07→19:46)
[2018-03-22] MEDS: PANTOPRAZOLE 40 MG TABLET PO SCH (08:52)
[2018-03-22] MEDS: HEPARIN SODIUM,PORCINE 5,000 UNIT/ML 1 ML VIAL SQ SCH ×3 (08:52→23:17)
[2018-03-22] MEDS: PREGABALIN 50 MG CAP PO SCH ×3 (08:57→21:47)
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
--- NOTE | 2018-03-22 17:49 | P.PN ---
Subjective Progress Note Date: 03/22/18 Progress note being dictated for Dr. 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 Patient was also complaining of some epigastric pain as well. Patient says that she was at [facility] due to her lower back pain and fall. Patient had imaging studies there and was sent home with home physical therapy. Patient says that yesterday she was walking in the hallway and was trying to put the phone at charging station and suddenly fell down and landed on her sacral area. She Has not taken her [place] today due to the nausea vomiting. Is having increased pain in her lower back she had a fall yesterday. She states she went to lean against the sink and slipped falling down. Denies any bowel or bladder incontinence or retention. Denies any saddle anesthesia. Denies any lumbar radiculopathy. Patient doesn't pain in the epigastric. The abdomen. Patient denies any recent fever, chills, shortness of breath, chest pain, dysuria or hematuria, headaches or visual changes, or any other complaints. Patient had multiple admissions previously with asthma exacerbation and chronic pain. CT of the abdominal pelvis showed no evidence of traumatic injury within the abdomen and pelvis. No renal obstruction. Lumbar spine x-ray showed spondylitic changes no fractures is seen. WBC 13.3 on admission. UA negative 03/21/2018 Patient denied any complaints of nausea vomiting today. Abdominal pain resolved. Otherwise still complaining of pain especially lower back. Pain is being controlled with pain medications. Otherwise patient will be continued on PT OT and possible arrange for home PT upon discharge. Anticipate discharged tomorrow. No fever no chills. 03/22/2018 Patient sustained a significant fall with lower back pain. Evaluated by orthopedic spinal surgery, radiology studies reviewed - no evidence of vertebral body compression fracture, significant degenerative disc disease of L2 -3 and L5 to S1, and lumbar spine spurring. Back pain currently controlled.Afebrile, maintaining O2 sats in the high 90s on room air. Denies chest pain, palpitations or increasing shortness of breath. Objective - Vital Signs Vital signs: Vital Signs Temp 98.7 F 03/22/18 15:00 Pulse 64 03/22/18 15:00 Resp 18 03/22/18 15:00 BP 137/84 03/22/18 15:00 Pulse Ox 96 03/22/18 15:00 Intake & Output 03/21/18 03/22/18 03/22/18 18:59 06:59 18:59 Intake Total 600 Balance 600 Intake: Oral 600 Other: Voiding Method Bedside Commode Bedside Commode # Voids 1 3 1 # Bowel Movements 0 - Exam PHYSICAL EXAMINATION: Patient is lying in the bed comfortably, no acute distress, awake alert and oriented.. Morbidly obese. HEENT: Normocephalic. Neck is supple. Pupils reactive. Nostrils clear. Oral cavity is moist. Ears reveal no drainage. Neck reveals no JVD, carotid bruits, or thyromegaly. CHEST EXAMINATION: Trachea is central. Symmetrical expansion. Bibasilar diminished air entry. Lung bah clear to auscultation and percussion. CARDIAC: Normal S1, S2 with no gallops. No murmurs ABDOMEN: Soft. Nontender. Bowel sounds normal. No organomegaly. No abdominal bruits. Extremities: reveal no edema. No clubbing or cyanosis Neurologically awake, alert, oriented x3 with well-coordinated movements. No focal deficits noted Skin: No rash or skin lesions. Psychiatric: Coperative. Nonsuicidal Musculoskeletal: No joint swelling or deformity. Normal range of motion. - Labs CBC & Chem 7: 03/20/18 07:41 03/20/18 07:41 Assessment and Plan Assessment: Acute lower back pain status post fall/mechanical. Abdominal pain with nausea and vomiting resolved now. CT of abdomen pelvis negative Previous multiple admissions with asthma exacerbation and chronic pain History of colitis and IBS Urinary incontinence History of severe peptic/esophageal ulcers. Mitral valve prolapse. Neck slight chronic back pain L2-3 and L5-S1 degenerative disc disease Nephrolithiasis with passage stone history Osteoarthritis History of C. diff Anxiety and depression Coronary artery disease history of stent placement Morbid obesity BMI 60.0 Possible obesity hypoventilation syndrome Plan: Continue on current medication regime ,monitoring and symptomatic treatment. Patient sustained a significant fall, agreeable to subacute rehab. PT/OT. Dr. Penn consulted from orthopedic spine surgery with recommendations noted. Pain management. Maintain nebulized bronchodilators. Discharge planning in progress for subacute rehab. tomorrow. Prognosis is guarded with multiple medical problems and comorbid conditions. The impression and plan of care has been dictated as directed. : I performed a history and examination of this patient, discussed the same with the dictator. I agree with the dictator's note ,documented as a scribe. Any additional findings or plans will be noted.
[2018-03-22] MEDS: MIRTAZAPINE 15 MG TAB PO SCH (21:43)
[2018-03-22] MEDS: PRAMIPEXOLE 0.25 MG TAB PO SCH (21:43)
[2018-03-22] MEDS: hydrOXYzine PAMOATE 25 MG CAP PO SCH (21:47)
[2018-03-23] MEDS: HYDROcodone/APAP 10-325MG 1 EACH TAB PO PRN ×4 (01:25→20:11)
[2018-03-23] MEDS: ONDANSETRON 4 MG/2 ML VIAL IVP PRN (01:26)
[2018-03-23] MEDS: MORPHINE SULFATE 4 MG/ML SYRINGE IV PRN ×5 (03:47→22:16)
[2018-03-23] MEDS: LEVOTHYROXINE 100 MCG TAB PO SCH (06:25)
[2018-03-23] MEDS: HEPARIN SODIUM,PORCINE 5,000 UNIT/ML 1 ML VIAL SQ SCH ×3 (09:12→23:52)
[2018-03-23] MEDS: PANTOPRAZOLE 40 MG TABLET PO SCH (09:12)
[2018-03-23] MEDS: PREGABALIN 50 MG CAP PO SCH ×3 (09:12→21:15)
[2018-03-23] MEDS: IPRATROPIUM-ALBUTEROL 3 ML NEB INHALATION SCH ×4 (09:16→19:33)
[2018-03-23 13:32] LABS: Appearance,Urine Clear (Clear); Bacteria,Urine Few /hpf; Bilirubin,Urine Negative (Negative); Blood,Urine Negative (Negative); Color,Urine Light Yellow; Glucose,Urine (UA) Negative (Negative); Ketones,Urine Negative (Negative); Leukocyte Esterase,Urine Moderate (Negative); Nitrite,Urine Negative (Negative); Protein,Urine Negative (Negative); RBC,Urine 1 /hpf (0-5); Specific Gravity,Urine 1.012 (1.001-1.035); Squamous Epithelial Cell,Urine 1 /hpf (0-4); Urobilinogen,Urine <2.0 mg/dL (<2.0)
[2018-03-23] MEDS: LEVOFLOXACIN 500MG-D5W PMX 500 MG in DEXTROSE/WATER 1 100ML.BAG IVPB SCH (13:47)
--- NOTE | 2018-03-23 19:13 | P.PN ---
Subjective Progress Note Date: 03/23/18 Progress note being dictated for Dr. 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 Patient was also complaining of some epigastric pain as well. Patient says that she was at [facility] due to her lower back pain and fall. Patient had imaging studies there and was sent home with home physical therapy. Patient says that yesterday she was walking in the hallway and was trying to put the phone at charging station and suddenly fell down and landed on her sacral area. She Has not taken her [place] today due to the nausea vomiting. Is having increased pain in her lower back she had a fall yesterday. She states she went to lean against the sink and slipped falling down. Denies any bowel or bladder incontinence or retention. Denies any saddle anesthesia. Denies any lumbar radiculopathy. Patient doesn't pain in the epigastric. The abdomen. Patient denies any recent fever, chills, shortness of breath, chest pain, dysuria or hematuria, headaches or visual changes, or any other complaints. Patient had multiple admissions previously with asthma exacerbation and chronic pain. CT of the abdominal pelvis showed no evidence of traumatic injury within the abdomen and pelvis. No renal obstruction. Lumbar spine x-ray showed spondylitic changes no fractures is seen. WBC 13.3 on admission. UA negative 03/21/2018 Patient denied any complaints of nausea vomiting today. Abdominal pain resolved. Otherwise still complaining of pain especially lower back. Pain is being controlled with pain medications. Otherwise patient will be continued on PT OT and possible arrange for home PT upon discharge. Anticipate discharged tomorrow. No fever no chills. 03/22/2018 Patient sustained a significant fall with lower back pain. Evaluated by orthopedic spinal surgery, radiology studies reviewed - no evidence of vertebral body compression fracture, significant degenerative disc disease of L2 -3 and L5 to S1, and lumbar spine spurring. Back pain currently controlled.Afebrile, maintaining O2 sats in the high 90s on room air. Denies chest pain, palpitations or increasing shortness of breath. 03/23/18 Feels well this morning but feels that she has a urinary tract infection, complaining of frequency and pressure. Denies abdominal pain. Afebrile, normal WBC. Maintaining O2 sats low to mid 90s on room air. Back pain controlled. Denies chest pain, palpitations. Objective - Vital Signs Vital signs: Vital Signs Temp 98 F 03/23/18 15:00 Pulse 82 03/23/18 15:00 Resp 16 03/23/18 15:00 BP 124/58 03/23/18 15:00 Pulse Ox 90 L 03/23/18 15:00 Intake & Output 03/23/18 03/23/18 03/24/18 06:59 18:59 06:59 Intake Total 900 Output Total 400 Balance 900 -400 Intake: Oral 900 Output: Urine 400 Other: Voiding Method Bedside Commode Bedside Commode # Voids 1 # Bowel Movements 1 - Exam PHYSICAL EXAMINATION: Patient is sitting up in bed, no acute distress, awake alert and oriented. HEENT: Normocephalic. Neck is supple. Pupils reactive. Nostrils clear. Oral cavity is moist. Neck reveals no JVD, carotid bruits, or thyromegaly. CHEST EXAMINATION: Trachea is central. Symmetrical expansion. Bibasilar diminished air entry. Lung bah clear to auscultation and percussion. CARDIAC: Normal S1, S2 with no gallops. No murmurs ABDOMEN: Soft. Nontender. Bowel sounds normal. No organomegaly. No abdominal bruits. Extremities: reveal no edema. No clubbing or cyanosis Neurologically awake, alert, oriented x3 with well-coordinated movements. No focal deficits noted Psychiatric: Coperative. Nonsuicidal - Labs CBC & Chem 7: 03/20/18 07:41 03/20/18 07:41 Labs: Abnormal Lab Results - Last 24 Hours (Table) 03/23/18 Range/Units 13:00 Ur Leukocyte Esterase Moderate H (Negative) Urine WBC 38 H (0-5) /hpf Urine WBC Clumps Occasional H (None) /hpf Urine Bacteria Few H (None) /hpf Microbiology - Last 24 Hours (Table) 03/23/18 13:00 Urine Culture - Preliminary Urine,Clean Catch Assessment and Plan Assessment: Acute lower back pain status post fall/mechanical. Abdominal pain with nausea and vomiting resolved now. CT of abdomen pelvis negative Previous multiple admissions with asthma exacerbation and chronic pain History of colitis and IBS Urinary incontinence, possible acute UTI History of severe peptic/esophageal ulcers. Mitral valve prolapse. Neck slight chronic back pain L2-3 and L5-S1 degenerative disc disease Nephrolithiasis with passage stone history Osteoarthritis History of C. diff Anxiety and depression Coronary artery disease history of stent placement Morbid obesity BMI 60.0 Possible obesity hypoventilation syndrome Plan: Continue on current medication regime ,monitoring and symptomatic treatment. Urine culture, UA ordered. Empiric IV antibiotics -Levaquin ordered. PT/OT. Pain management. Maintain nebulized bronchodilators. Discharge planning in progress for subacute rehab. tomorrow. Prognosis is guarded with multiple medical problems and comorbid conditions. The impression and plan of care has been dictated as directed. : I performed a history and examination of this patient, discussed the same with the dictator. I agree with the dictator's note ,documented as a scribe. Any additional findings or plans will be noted.
[2018-03-23] MEDS: hydrOXYzine PAMOATE 25 MG CAP PO SCH (21:15)
[2018-03-23] MEDS: MIRTAZAPINE 15 MG TAB PO SCH (21:15)
[2018-03-23] MEDS: PRAMIPEXOLE 0.25 MG TAB PO SCH (21:15)
[2018-03-24] MEDS: MORPHINE SULFATE 4 MG/ML SYRINGE IV PRN ×3 (05:30→14:15)
[2018-03-24] MEDS: LEVOTHYROXINE 100 MCG TAB PO SCH (06:34)
[2018-03-24] MEDS: IPRATROPIUM-ALBUTEROL 3 ML NEB INHALATION SCH ×3 (08:07→15:29)
[2018-03-24] MEDS: PREGABALIN 50 MG CAP PO SCH (08:58)
[2018-03-24] MEDS: HEPARIN SODIUM,PORCINE 5,000 UNIT/ML 1 ML VIAL SQ SCH (08:58)
[2018-03-24] MEDS: PANTOPRAZOLE 40 MG TABLET PO SCH (08:58)
[2018-03-24] MEDS: LEVOFLOXACIN 500MG-D5W PMX 500 MG in DEXTROSE/WATER 1 100ML.BAG IVPB SCH (10:34)
[2018-03-24] MEDS: HYDROcodone/APAP 10-325MG 1 EACH TAB PO PRN (11:47)
--- NOTE | 2018-03-24 13:53 | P.DS ---
Providers Date of admission: 03/21/18 20:45 Expected date of discharge: 03/24/18 Attending physician: Carine Miller Final Diagnoses Acute lower back pain status post fall/mechanical. Abdominal pain with nausea and vomiting resolved now. CT of abdomen pelvis negative Previous multiple admissions with asthma exacerbation and chronic pain History of colitis and IBS Urinary incontinence, possible acute UTI History of severe peptic/esophageal ulcers. Mitral valve prolapse. Neck slight chronic back pain L2-3 and L5-S1 degenerative disc disease Nephrolithiasis with passage stone history Osteoarthritis History of C. 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 Patient was also complaining of some epigastric pain as well. Patient says that she was at [facility] due to her lower back pain and fall. Patient had imaging studies there and was sent home with home physical therapy. Patient says that yesterday she was walking in the hallway and was trying to put the phone at charging station and suddenly fell down and landed on her sacral area. She Has not taken her Simpson today due to the nausea vomiting. Is having increased pain in her lower back she had a fall yesterday. She states she went to lean against the sink and slipped falling down. Denies any bowel or bladder incontinence or retention. Denies any saddle anesthesia. Denies any lumbar radiculopathy. Patient doesn't pain in the epigastric. The abdomen. Patient denies any recent fever, chills, shortness of breath, chest pain, dysuria or hematuria, headaches or visual changes, or any other complaints. Patient had multiple admissions previously with asthma exacerbation and chronic pain. CT of the abdominal pelvis showed no evidence of traumatic injury within the abdomen and pelvis. No renal obstruction. Lumbar spine x-ray showed spondylitic changes no fractures is seen. WBC 13.3 on admission. UA negative 03/21/2018 Patient denied any complaints of nausea vomiting today. Abdominal pain resolved. Otherwise still complaining of pain especially lower back. Pain is being controlled with pain medications. Otherwise patient will be continued on PT OT and possible arrange for home PT upon discharge. Anticipate discharged tomorrow. No fever no chills. 03/22/2018 Patient sustained a significant fall with lower back pain. Evaluated by orthopedic spinal surgery, radiology studies reviewed - no evidence of vertebral body compression fracture, significant degenerative disc disease of L2 -3 and L5 to S1, and lumbar spine spurring. Back pain currently controlled.Afebrile, maintaining O2 sats in the high 90s on room air. Denies chest pain, palpitations or increasing shortness of breath. 03/23/18 Feels well this morning but feels that she has a urinary tract infection, complaining of frequency and pressure. Denies abdominal pain. Afebrile, normal WBC. Maintaining O2 sats low to mid 90s on room air. Back pain controlled. Denies chest pain, palpitations. 03/24/2018 significant clinical improvement. Final urine culture results pending. Afebrile, patient has been cleared by orthopedic surgery for discharge. Patient is being discharged to [facility] subacute rehab in a stable condition with guarded prognosis. Exam PHYSICAL EXAMINATION: Gen. :no acute distress, awake alert and oriented X 3. CHEST EXAMINATION: Trachea is central. Symmetrical expansion. Bibasilar diminished air entry. Lung bah clear to auscultation and percussion. CARDIAC: Normal S1, S2 with no gallops. No murmurs ABDOMEN: Soft. Nontender. Bowel sounds normal. No organomegaly. Neurologically No focal deficits noted The impression and plan of care has been dictated as directed. : I performed a history and examination of this patient, discussed the same with the dictator. I agree with the dictator's note ,documented as a scribe. Any additional findings or plans will be noted. Time taken: 35 minutes Consults: 03/22/18 16:19 Consult Physician Routine Consulting Provider: Shaniqua Penn Consult Reason/Comments: fall,back pain Do you want consulting provider notified?: Yes Primary care physician: Jorje Domingo Patient Condition at Discharge: Stable Plan - Discharge Summary Discharge Rx Participant: No New Discharge Prescriptions: New Levofloxacin [Levaquin] 500 mg PO DAILY #4 tab Acetaminophen Tab [Tylenol] 650 mg PO Q6HR PRN tab PRN Reason: Mild Pain Or Fever > 100.5 Pregabalin [Lyrica] 50 mg PO TID #9 cap Continue Omeprazole 20 mg PO BID Levothyroxine Sodium [Synthroid] 100 mcg PO DAILY hydrOXYzine PAMOATE [Vistaril] 25 mg PO HS Pramipexole [Mirapex] 0.25 mg PO HS Mirtazapine [Remeron] 15 mg PO HS tab HYDROcodone/APAP 10-325MG [Simpson 10-325] 1 tab PO QID PRN #12 tab PRN Reason: Pain Ipratropium-Albuterol Nebulize [Duoneb 0.5 mg-3 mg/3 ml Soln] 3 ml INHALATION RT-QID #0 ampul.neb Discharge Medication List Levothyroxine Sodium [Synthroid] 100 mcg PO DAILY 11/10/17 [History] Omeprazole 20 mg PO BID 11/10/17 [History] hydrOXYzine PAMOATE [Vistaril] 25 mg PO HS 01/22/18 [History] Pramipexole [Mirapex] 0.25 mg PO HS 01/23/18 [History] Mirtazapine [Remeron] 15 mg PO HS tab 01/28/18 [Rx] Acetaminophen Tab [Tylenol] 650 mg PO Q6HR PRN tab 03/24/18 [Rx] HYDROcodone/APAP 10-325MG [Simpson 10-325] 1 tab PO QID PRN #12 tab 03/24/18 [Rx] Ipratropium-Albuterol Nebulize [Duoneb 0.5 mg-3 mg/3 ml Soln] 3 ml INHALATION RT -QID #0 ampul.neb 03/24/18 [Rx] Levofloxacin [Levaquin] 500 mg PO DAILY #4 tab 03/24/18 [Rx] Pregabalin [Lyrica] 50 mg PO TID #9 cap 03/24/18 [Rx] Follow up Appointment(s)/Referral(s): Melchor Ortega MD [STAFF PHYSICIAN] - 3 Days (While at subacute rehab) Valentino Basurto PAC [PHYSICIAN MACHINE FILLER SERVICER] - As Needed (Patient may follow-up with Valentino Basurto PA-C or Dr. Manish Penn at [facility] on an as-needed basis following discharge. ) Jorje Domingo MD [Primary Care Provider] - 3 Days (After DC from subacute rehab) Patient Instructions/Handouts: Heart Failure (DC) Activity/Diet/Wound Care/Special Instructions: [facility] Diet cardiac Activity: As tolerated CBC, BMP in 3 days Discharge Disposition: TRANSFER TO SNF/ECF
[2018-03-24 15:09] VITALS: BP 123/59; PULSE 89; RESP 20; TEMP 98.7
[2018-03-25] MEDS ORDERED: LEVOFLOXACIN 500 MG TAB PO SCH (11:00)
== END 2018-03-24 16:23 | DRG 552 ==
LOC: EC 16:59 → 4MS4W 21:16 → OBSVTOIN 03-21 20:45
PROVIDERS: ADMIT Hospitalist; ATTEND Hospitalist
DX: M51.16 Intervertebral disc disorders with radiculopathy, lumbar region (principal); Z68.44 Body mass index [BMI] 60.0-69.9, adult; E66.2 Morbid (severe) obesity with alveolar hypoventilation; R11.2 Nausea with vomiting, unspecified; E03.9 Hypothyroidism, unspecified; Z79.890 Hormone replacement therapy; F32.9 Major depressive disorder, single episode, unspecified; F41.9 Anxiety disorder, unspecified; G89.29 Other chronic pain; I25.10 Atherosclerotic heart disease of native coronary artery without angina pectoris; I25.2 Old myocardial infarction; I34.1 Nonrheumatic mitral (valve) prolapse; I50.9 Heart failure, unspecified; J45.909 Unspecified asthma, uncomplicated; K58.9 Irritable bowel syndrome, unspecified; M13.0 Polyarthritis, unspecified; W01.0XXA Fall on same level from slipping, tripping and stumbling without subsequent striking against object, initial encounter; Z74.01 Bed confinement status; Z80.1 Family history of malignant neoplasm of trachea, bronchus and lung; Z82.49 Family history of ischemic heart disease and other diseases of the circulatory system; Z85.42 Personal history of malignant neoplasm of other parts of uterus; Z87.19 Personal history of other diseases of the digestive system; Z87.442 Personal history of urinary calculi; Z90.710 Acquired absence of both cervix and uterus; Z96.642 Presence of left artificial hip joint; Z96.651 Presence of right artificial knee joint; Z79.899 Other long term (current) drug therapy; Z88.8 Allergy status to other drugs, medicaments and biological substances; Z88.6 Allergy status to analgesic agent; Z91.041 Radiographic dye allergy status; Z87.01 Personal history of pneumonia (recurrent); Z87.440 Personal history of urinary (tract) infections; Z82.3 Family history of stroke; Z87.11 Personal history of peptic ulcer disease; I48.91 Unspecified atrial fibrillation; Z80.52 Family history of malignant neoplasm of bladder; Z95.5 Presence of coronary angioplasty implant and graft
CPT/HCPCS: 36415; 71046; 72100; 74018; 74177; 80053; 81001; 81003; 82150; 82550; 82553; 83690; 84484; 85025; 85610; 85730; 87086; 93005; 94640; 96361; 96374; 96375; 96376; 99285

== ENCOUNTER 2018-04-18 20:42 | Inpatient (IN) | payer MEDICARE, OTHER ==
[2018-04-18] MEDS ORDERED: methylPREDNISolone SOD SUCCI 125 MG/2 ML VIAL IV STA (21:23)
[2018-04-18] MEDS ORDERED: IPRATROPIUM-ALBUTEROL 3 ML NEB INHALATION STA ×2 (21:23→21:24)
[2018-04-18] MEDS ORDERED: FUROSEMIDE 10 MG/ML 4 ML VIAL IV STA (21:23)
[2018-04-18] MEDS ORDERED: ONDANSETRON 4 MG/2 ML VIAL IVP STA (22:02)
[2018-04-18 22:14] LABS: ALT 23 U/L (9-52); AST 21 U/L (14-36); Albumin 3.8 g/dL (3.5-5.0); Alkaline Phosphatase 104 U/L (38-126); Anion Gap 8 mmol/L; Blood Urea Nitrogen 9 mg/dL (7-17); Calcium 9.4 mg/dL (8.4-10.2); Carbon Dioxide 26 mmol/L (22-30); Chloride 108 mmol/L (98-107); Glucose 105 mg/dL (74-99); Magnesium 1.7 mg/dL (1.6-2.3); Potassium 3.9 mmol/L (3.5-5.1); Sodium 142 mmol/L (137-145); Total Bilirubin 0.6 mg/dL (0.2-1.3); Total Protein 6.4 g/dL (6.3-8.2)
[2018-04-18 22:16] LABS: Hypochromasia Slight; Partial Thromboplastin Time 22.5 sec (22.0-30.0); Prothrombin Time 10.1 sec (9.0-12.0)
[2018-04-18 22:28] LABS: Creatine Kinase 58 U/L (30-135)
[2018-04-18 22:41] LABS: Creatine Kinase MB 0.7 ng/mL (0.0-2.4); Troponin I <0.012 ng/mL (0.000-0.034)
[2018-04-18] MEDS ORDERED: diphenhydrAMINE 50 MG/ML 1 ML VIAL IVP STA (22:50)
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
--- NOTE | 2018-04-18 23:07 | XR ---
EXAMINATION TYPE: XR chest 2V DATE OF EXAM: 04/18/2018 COMPARISON: 03/19/2018 HISTORY: Difficulty breathing TECHNIQUE: Frontal and lateral views of the chest are obtained. FINDINGS: There is no heart failure nor confluent pneumonic infiltrate. There is mild coarsening of interstitial markings. There are chest leads. Bony thorax is intact. IMPRESSION: No heart failure or pulmonary consolidation. Inspiration is decreased compared to last e xam.
[2018-04-18] MEDS ORDERED: MORPHINE SULFATE 4 MG/ML SYRINGE IVP STA (23:11)
[2018-04-18 23:12] LABS: Mean Platelet Volume 6.9
[2018-04-18] MEDS ORDERED: IPRATROPIUM-ALBUTEROL 3 ML NEB INHALATION PRN (23:30)
[2018-04-18 23:44] LABS: RBC 4.21 m/uL (3.80-5.40); WBC 8.1 k/uL (3.8-10.6)
[2018-04-18 23:45] LABS: HCT 33.8 % (34.0-46.0); MCHC 32.4 g/dL (31.0-37.0); MCV 80.3 fL (80.0-100.0)
[2018-04-18 23:46] LABS: Lymphocytes % (A) 17 %; Monocytes % (A) 6 %; Neutrophils % (A) 72 %; Platelet Count 296 k/uL (150-450); RDW 14.5 % (11.5-15.5)
[2018-04-18 23:47] LABS: Basophils % (A) 1 %; Eosinophils % (A) 2 %; Lymphocytes # (A) 1.4 k/uL (1.0-4.8); Neutrophils # (A) 5.8 k/uL (1.3-7.7)
[2018-04-18 23:48] LABS: Eosinophils # (A) 0.2 k/uL (0-0.7); Monocytes # (A) 0.5 k/uL (0-1.0)
[2018-04-19 01:42] VITALS: BMI 64.0
[2018-04-19] MEDS: FUROSEMIDE 10 MG/ML 4 ML VIAL IV SCH ×4 (02:17→19:08)
[2018-04-19] MEDS: MORPHINE SULFATE 2 MG/ML SYRINGE IVP PRN ×2 (02:22→05:38)
[2018-04-19] MEDS: MIRTAZAPINE 15 MG TAB PO SCH ×2 (04:02→21:27)
[2018-04-19 06:13] LABS: Creatine Kinase MB 0.8 ng/mL (0.0-2.4); Troponin I 0.012 ng/mL (0.000-0.034)
[2018-04-19 06:53] LABS: Glucose,Whole Blood 179 mg/dL (75-99)
[2018-04-19] MEDS: MORPHINE SULFATE 4 MG/ML SYRINGE IVP PRN ×4 (08:48→22:35)
[2018-04-19] MEDS: ASPIRIN 325 MG TAB PO SCH (08:49)
[2018-04-19] MEDS: ONDANSETRON 4 MG/2 ML VIAL IVP PRN ×2 (08:49→16:21)
[2018-04-19] MEDS ORDERED: predniSONE 20 MG TAB PO SCH (09:00)
[2018-04-19 11:46] LABS: Glucose,Whole Blood 205 mg/dL (75-99)
[2018-04-19] MEDS: LORazepam 0.5 MG TAB PO PRN ×2 (12:04→18:17)
[2018-04-19 12:34] LABS: Creatine Kinase MB 1.4 ng/mL (0.0-2.4); Troponin I <0.012 ng/mL (0.000-0.034)
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
--- NOTE | 2018-04-19 15:08 | CT ---
EXAMINATION TYPE: CT chest wo con DATE OF EXAM: 04/19/2018 COMPARISON: None HISTORY: High resolution CT DLP: 845 mGycm High-resolution noncontrast CT of the chest was performed with the patient in the prone and supine po sitions. Lung and mediastinal window settings are submitted. The lungs appear to be well-aerated. I do not see evidence for fibrotic change. There is no eviden ce for bronchiectasis, groundglass infiltrate, nodule or mass. No pleural effusion is identified. I do not see evidence for hilar or mediastinal mass or adenopathy. IMPRESSION: No significant abnormality is seen. Correlate clinically.
[2018-04-19] MEDS: IPRATROPIUM-ALBUTEROL 3 ML NEB INHALATION SCH (16:36)
[2018-04-19] MEDS: PREGABALIN 50 MG CAP PO SCH ×2 (16:52→21:27)
[2018-04-19 17:27] LABS: Glucose,Whole Blood 158 mg/dL (75-99)
[2018-04-19] MEDS ORDERED: NON-FORMULARY DRUG (Omeprazole 20 MG) PO SCH (17:30)
[2018-04-19] MEDS: INSULIN ASPART 100 UNIT/ML 1 ML 10 ML VIAL SQ SCH ×2 (18:17→21:27)
[2018-04-19] MEDS: methylPREDNISolone SOD SUCCI 125 MG/2 ML VIAL IV SCH (18:17)
--- NOTE | 2018-04-19 18:57 | HP ---
HISTORY AND PHYSICAL DATE OF SERVICE: 04/29/2018 CHIEF COMPLAINT: Shortness of breath. HISTORY OF PRESENT ILLNESS: This 68-year-old woman with a past medical history of CHF, history of GI bleed, history of DJD, history of COPD, history of hypothyroidism, being for Dr. Domingo in the outpatient setting, was admitted with back pain; mechanical pain and fall and gait dysfunction. Patient was in [facility] on the [place]. Patient improved significantly. Currently apparently patient is living at home. Patient was complaining of increasing shortness of breath and cough for the past several days. Patient was complaining of some pain, also. Patient also complained of severe anxiety. The patient apparently is living with her son, but her son is hospitalized currently at this time. PAST MEDICAL HISTORY: 1. History of chest pain. 2. History of CHF. 3. GI bleed. 4. Myocardial infarction. 5. History of pneumonia. 6. History of DJD. 7. History of hypothyroidism. HOME MEDICATIONS: 1. Protonix 1 p.o. daily. 2. Prilosec 20 mg b.i.d. 3. Albuterol 1-2 puffs q.6 p.r.n. 4. Vistaril 25 mg at bedtime. 5. Lyrica 50 mg p.o. t.i.d. 6. Synthroid 100 mcg p.o. daily. 7. Ativan 0.5 mg t.i.d. p.r.n. 8. DuoNeb q.i.d. 9. [place] 1 tablet p.o. q.i.d. p.r.n. 10.MiraLAX 0.25 mg at bedtime. 11.Remeron 15 mg at bedtime. ALLERGIES: 1. IODINATED CONTRAST DYE. 2. KETOROLAC. 3. METHOCARBAMOL. 4. NSAIDS. 5. COMPAZINE. FAMILY HISTORY: History of cancer, CVA, TIA, hypertension, history of myocardial infarction, history of bladder and lung cancer. SOCIAL HISTORY: No history of smoking. No history of alcohol intake. REVIEW OF SYSTEMS: ENT: No diminished hearing. No diminished vision. CARDIOVASCULAR SYSTEM: No angina, palpitations. RESPIRATORY SYSTEM: As mentioned earlier. GI: No nausea, vomiting, diarrhea. : No dysuria or retention. NERVOUS SYSTEM: No numbness, weakness. ALLERGY/IMMUNOLOGY: No asthma, hayfever. MUSCULOSKELETAL: As mentioned earlier. HEMATOLOGY/ONCOLOGY: As mentioned earlier. ENDOCRINE: As mentioned earlier. CONSTITUTIONAL: As mentioned earlier. DERMATOLOGY: Negative. RHEUMATOLOGY: Negative. PSYCHIATRY: As mentioned earlier. PHYSICAL EXAMINATION: Patient is alert and oriented x3. Pulse is 83, blood pressure 130/76, respirations 16, temperature 97.6, pulse ox 96% on 2 L nasal cannula. HEENT: Conjunctivae normal. Oral mucosa moist. NECK: No jugular venous distention. No carotid bruit. No lymph node enlargement. CARDIOVASCULAR SYSTEM: S1, S2 muffled. RESPIRATORY SYSTEM: Breath sounds diminished at the bases. A few scattered rhonchi and crackles. Expiratory wheezing also heard. ABDOMEN: Soft, non-tender. No mass palpable. LEGS: No edema. No swelling. NERVOUS SYSTEM: Higher functions as mentioned earlier. Moves all 4 limbs. No focal motor or sensory deficit. LYMPHATICS: No lymph node palpable in neck, axillae or groin. SKIN: No ulcer, rash, bleeding. LABS: The D-dimer is 2.81, hemoglobin 11.1. ASSESSMENT: 1. Shortness of breath, possibly chronic obstructive pulmonary disease, acute exacerbation, with acute purulent tracheobronchitis. 2. History of recent fall and mechanical pain. 3. History of colitis and irritable bowel syndrome. 4. History of chest pain. 5. History of congestive heart failure. 6. History of gastrointestinal bleed. 7. History of myocardial infarction. 8. History of degenerative joint disease. 9. History if pneumonia. 10.History of renal disorder. 11.History of urinary incontinence. 12.History of frequent urinary tract infections. 13.History of fractures. 14.Hypothyroidism. 15.History of nephrolithiasis. 16.History of Clostridium difficile colitis. 17.Cholecystectomy. 18.Morbid obesity with a body mass index of 64. 19.History of anxiety, depression. RECOMMENDATIONS AND DISCUSSION: In this 68-year-old woman who presented with multiple complex medical issues, we will monitor the patient closely, continue the current medications, continue with symptomatic treatment. Otherwise at this time I would recommend continuing the bronchodilators, pain medications, empiric antibiotics. Closely monitor with Pulmonary and Cardiology for CHF. Guarded prognosis. Further recommendations to follow. See orders for further details. MMODL / IJN: [id number] /
[2018-04-19] MEDS: HYDROcodone/APAP 10-325MG 1 EACH TAB PO PRN (19:58)
[2018-04-19 20:23] LABS: Glucose,Whole Blood 207 mg/dL (75-99)
[2018-04-19] MEDS ORDERED: MIRTAZAPINE 15 MG TAB PO SCH (21:00)
[2018-04-19] MEDS: PRAMIPEXOLE 0.25 MG TAB PO SCH (21:27)
[2018-04-19] MEDS: MELATONIN 3 MG TABLET PO SCH (21:27)
[2018-04-19] MEDS: hydrOXYzine PAMOATE 25 MG CAP PO SCH (21:27)
[2018-04-19] MEDS: HEPARIN SODIUM,PORCINE 5,000 UNIT/ML 1 ML VIAL SQ SCH (21:27)
[2018-04-20] MEDS: MORPHINE SULFATE 4 MG/ML SYRINGE IVP PRN ×5 (00:09→20:48)
[2018-04-20] MEDS: LORazepam 0.5 MG TAB PO PRN (00:09)
[2018-04-20] MEDS: methylPREDNISolone SOD SUCCI 125 MG/2 ML VIAL IV SCH ×4 (00:09→17:25)
[2018-04-20] MEDS: IPRATROPIUM-ALBUTEROL 3 ML NEB INHALATION SCH ×5 (02:12→21:02)
[2018-04-20] MEDS: FORMOTEROL FUMARATE 20 MCG/2 ML NEBU INHALATION SCH ×3 (02:12→21:02)
[2018-04-20] MEDS: BUDESONIDE 1 MG/2 ML NEBU INHALATION SCH ×3 (02:12→21:02)
[2018-04-20] MEDS: LEVOTHYROXINE 100 MCG TAB PO SCH (05:25)
[2018-04-20 06:50] LABS: Glucose,Whole Blood 164 mg/dL (75-99)
[2018-04-20 07:48] LABS: Anion Gap 8 mmol/L; Blood Urea Nitrogen 18 mg/dL (7-17); Calcium 8.9 mg/dL (8.4-10.2); Carbon Dioxide 27 mmol/L (22-30); Chloride 107 mmol/L (98-107); Glucose 155 mg/dL (74-99); Potassium 4.5 mmol/L (3.5-5.1); Sodium 142 mmol/L (137-145)
[2018-04-20 08:04] LABS: Basophils % (A) 0 %; Eosinophils % (A) 1 %; HCT 33.4 % (34.0-46.0); HGB 10.7 gm/dL (11.4-16.0); Hypochromasia Slight; Lymphocytes # (A) 0.5 k/uL (1.0-4.8); Lymphocytes % (A) 6 %; MCH 26.4 pg (25.0-35.0); MCHC 32.2 g/dL (31.0-37.0); MCV 82.2 fL (80.0-100.0); Mean Platelet Volume 6.9; Monocytes # (A) 0.2 k/uL (0-1.0); Monocytes % (A) 3 %; Neutrophils # (A) 7.4 k/uL (1.3-7.7); Neutrophils % (A) 90 %; Platelet Count 325 k/uL (150-450); RBC 4.06 m/uL (3.80-5.40); RDW 14.3 % (11.5-15.5); WBC 8.3 k/uL (3.8-10.6)
[2018-04-20] MEDS: INSULIN ASPART 100 UNIT/ML 1 ML 10 ML VIAL SQ SCH ×4 (08:14→20:59)
[2018-04-20] MEDS: PANTOPRAZOLE 40 MG TABLET PO SCH (08:14)
[2018-04-20] MEDS: PREGABALIN 50 MG CAP PO SCH ×3 (08:14→22:17)
[2018-04-20] MEDS: ASPIRIN 325 MG TAB PO SCH (08:14)
[2018-04-20] MEDS: HEPARIN SODIUM,PORCINE 5,000 UNIT/ML 1 ML VIAL SQ SCH ×2 (08:14→20:49)
[2018-04-20] MEDS ORDERED: PANTOPRAZOLE PO SCH (09:00)
[2018-04-20] MEDS: HYDROcodone/APAP 10-325MG 1 EACH TAB PO PRN ×3 (09:51→20:07)
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
--- NOTE | 2018-04-20 10:19 | P.PN ---
Subjective Progress Note Date: 04/20/18 Principal diagnosis: Acute COPD exacerbation, tracheobronchitis, obstructive sleep apnea, sleep disorder breathing 04/20/2018, patient seen eval reexamined during the rounds clinically overall not much change aches and pains that has been present in the shoulder area and neck headache and throughout the body slightly better with the pain management, respiratory status slightly better patient continued to complain of the water retention however denies any hemoptysis denies any purulent sputum production does have intermittent cough does get short of breath on activity 68-year-old female well-known to me patient has severe degree of sleep disorder breathing and sleep apnea but has declined evaluation as well as treatment of with BiPAP in that regard patient has baseline condition of the COPD related to chronic persistent asthma as well as a history of congestive heart failure patient was at home and start developing increasing shortness of breath also intermittent cough congestion and wheezing symptoms started one to 2 day prior to coming into the hospital she also noted increased swelling of the lower extremity with the start gaining weight for the last several week with worsening overall problems decided to come into the hospital for further evaluation, Patient reports she is experiencing wheezing and feeling as though she cannot catch her breath. Patient also complains of chest pain which is worsened today than her baseline. Pain is described as tightness throughout her chest. She is uncertain if it's related to wheezing or related to her heart. She cannot identify any exacerbating or relieving factors to this pain. She has not attempted to be active to see if activity worsens the pain. On specific questioning she denies any chest pain but is more of a tightness, has generalized aches and pain all over the body denies any loss of consciousness) denies any hemoptysis denies any other bowel or bladder dysfunction Objective - Vital Signs Vital signs: Vital Signs Temp 97.9 F 04/20/18 07:05 Pulse 80 04/20/18 08:41 Resp 16 04/20/18 07:05 BP 154/87 04/20/18 07:05 Pulse Ox 91 L 04/20/18 07:05 Intake & Output 04/19/18 04/20/18 04/20/18 18:59 06:59 18:59 Intake Total 1450 417 Output Total 500 Balance 950 417 Weight 158.757 kg Intake: Oral 1450 417 Output: Urine 500 Other: Voiding Method Bedside Commode Bedside Commode Bedside Commode # Voids 2 - Exam GENERAL: Chronically ill-appearing, obese, in moderate respiratory distress HENT: Normocephalic, Atraumatic. Neck is soft and supple. No significant lymphadenopathy is noted. Oropharynx is clear. Moist mucous membranes. Neck has full range of motion without eliciting any pain. EYES: The sclera were anicteric and conjunctiva were pink and moist. Extraocular movements were intact and pupils were equal round and reactive to light. Eyelids were unremarkable. PULMONARY: Poor air entry basis fine wheezing are present on fours expiration CARDIOVASCULAR: There is a regular rate and rhythm without any murmurs gallops or rubs. ABDOMEN: Soft and nontender with normal bowel sounds. SKIN: Skin is clear with no lesions or rashes and otherwise unremarkable. : Rectal exam with decreased rectal tone which is unchanged from the patient, guaiac-negative NEUROLOGIC: Patient is alert and oriented x3. Cranial nerves II through XII are grossly intact. MUSCULOSKELETAL: 1+ pitting edema to the bilateral lower extremities, range of motion is limited by patient's body habitus, normal strength in all extremities LYMPHATICS: No significant lymphadenopathy is noted PSYCHIATRIC: Anxious Limitations: no limitations - Labs CBC & Chem 7: 04/20/18 07:03 04/20/18 07:03 Labs: Abnormal Lab Results - Last 24 Hours (Table) 04/19/18 04/19/18 04/19/18 Range/Units 11:44 11:48 17:13 Hgb (11.4-16.0) gm/dL Hct (34.0-46.0) % Lymphocytes # (1.0-4.8) k/uL D-Dimer 2.81 H (<0.60) mg/L FEU BUN (7-17) mg/dL Glucose (74-99) mg/dL POC Glucose (mg/dL) 205 H 158 H (75-99) mg/dL 04/19/18 04/20/18 04/20/18 Range/Units 20:18 06:46 07:03 Hgb 10.7 L (11.4-16.0) gm/dL Hct 33.4 L (34.0-46.0) % Lymphocytes # 0.5 L (1.0-4.8) k/uL D-Dimer (<0.60) mg/L FEU BUN (7-17) mg/dL Glucose (74-99) mg/dL POC Glucose (mg/dL) 207 H 164 H (75-99) mg/dL 04/20/18 Range/Units 07:03 Hgb (11.4-16.0) gm/dL Hct (34.0-46.0) % Lymphocytes # (1.0-4.8) k/uL D-Dimer (<0.60) mg/L FEU BUN 18 H (7-17) mg/dL Glucose 155 H (74-99) mg/dL POC Glucose (mg/dL) (75-99) mg/dL Assessment and Plan Assessment: Acute COPD exacerbation Chronic persistent mild to moderate asthma Tracheobronchitis Acute exacerbation of CHF likely diastolic heart failure likely secondary to do to above Prior history of recurrent fall generalized aches and pain colitis History of myocardial infarction Severe morbid obesity Sleep disorder breathing and sleep apnea Plan: Gentle diuresis Bronchodilators DVT and peptic ulcer disease prophylaxis IV steroids Supportive care and pain management Further recommendations pending plan of care as per clinical response of the patient Time with Patient: Greater than 30
[2018-04-20 11:11] LABS: Glucose,Whole Blood 242 mg/dL (75-99)
--- NOTE | 2018-04-20 14:51 | P.PN ---
Subjective Mrs. Krishnan is seen and examined sitting up in bed. She states she started coughing yesterday on some lemonade and has had an increased difficulty in breathing since. She was sent down for a VQ scan yesterday to assess for PE and was unable to tolerate the exam. High resolution CT of the chest was obtained and shows no significant abnormalities. Blood pressure 149/77 heart rate 88 afebrile maintaining oxygen saturation on room air. Laboratory data reviewed, hemoglobin 10.7, platelets 325, sodium 142, potassium 4.5, creatinine 0.7. Objective - Vital Signs Vital signs: Vital Signs Temp 97.8 F 04/20/18 14:20 Pulse 80 04/20/18 14:20 Resp 16 04/20/18 14:20 BP 149/77 04/20/18 14:20 Pulse Ox 100 04/20/18 14:20 Intake & Output 04/19/18 04/20/18 04/20/18 18:59 06:59 18:59 Intake Total 1450 657 Output Total 500 300 Balance 950 357 Weight 158.757 kg Intake: Oral 1450 657 Output: Urine 500 300 Other: Voiding Method Bedside Commode Bedside Commode Bedside Commode # Voids 2 1 - Exam GENERAL: Well-appearing, well-nourished and in no acute distress. Morbidly obese. NECK: Supple without JVD or thyromegaly. LUNGS: Breath sounds clear to auscultation bilaterally. Respiration equal and unlabored. No wheezes, rales or rhonchi. Diminished bilaterally. HEART: Distant heart sounds. Regular rate and rhythm without murmurs, rubs or gallops. S1 and S2 heard. EXTREMITIES: Normal range of motion, no edema. No clubbing or cyanosis. Peripheral pulses intact. - Labs CBC & Chem 7: 04/20/18 07:03 04/20/18 07:03 Labs: Abnormal Lab Results - Last 24 Hours (Table) 04/19/18 04/19/18 04/20/18 Range/Units 17:13 20:18 06:46 Hgb (11.4-16.0) gm/dL Hct (34.0-46.0) % Lymphocytes # (1.0-4.8) k/uL BUN (7-17) mg/dL Glucose (74-99) mg/dL POC Glucose (mg/dL) 158 H 207 H 164 H (75-99) mg/dL 04/20/18 04/20/18 04/20/18 Range/Units 07:03 07:03 11:06 Hgb 10.7 L (11.4-16.0) gm/dL Hct 33.4 L (34.0-46.0) % Lymphocytes # 0.5 L (1.0-4.8) k/uL BUN 18 H (7-17) mg/dL Glucose 155 H (74-99) mg/dL POC Glucose (mg/dL) 242 H (75-99) mg/dL Assessment and Plan Assessment: ASSESSMENT Shortness of breath, unknown etiology. No evidence of heart failure. Normal NTproBNP, normal chest xray and no peripheral edema. Elevated d-dimer. Chest pain, atypical. An acute event has been ruled out. Normal catheterization 2015. Morbid obesity PLAN An acute coronary event has been ruled out with no EKG evidence of ischemia and negative cardiac enzymes. Ongoing medical management per primary care team. Stable from a cardiac perspective. We will continue to follow as needed. Nurse Practitioner note has been reviewed, I agree with a documented findings and plan of care. Patient was seen and examined.
[2018-04-20 17:09] LABS: Glucose,Whole Blood 142 mg/dL (75-99)
[2018-04-20 19:56] LABS: Hemoglobin A1C 5.5 % (4.0-6.0)
[2018-04-20] MEDS: MELATONIN 3 MG TABLET PO SCH (20:49)
[2018-04-20] MEDS: MIRTAZAPINE 15 MG TAB PO SCH (20:49)
[2018-04-20] MEDS: hydrOXYzine PAMOATE 25 MG CAP PO SCH (20:49)
[2018-04-20] MEDS: PRAMIPEXOLE 0.25 MG TAB PO SCH (20:49)
[2018-04-20 20:56] LABS: Glucose,Whole Blood 151 mg/dL (75-99)
[2018-04-21] MEDS: MORPHINE SULFATE 4 MG/ML SYRINGE IVP PRN ×2 (00:35→07:51)
[2018-04-21] MEDS: methylPREDNISolone SOD SUCCI 125 MG/2 ML VIAL IV SCH ×3 (00:36→15:19)
[2018-04-21] MEDS: LEVOTHYROXINE 100 MCG TAB PO SCH (05:50)
[2018-04-21] MEDS: HYDROcodone/APAP 10-325MG 1 EACH TAB PO PRN (05:51)
[2018-04-21 07:23] LABS: Glucose,Whole Blood 169 mg/dL (75-99)
[2018-04-21] MEDS: INSULIN ASPART 100 UNIT/ML 1 ML 10 ML VIAL SQ SCH ×4 (07:51→21:11)
[2018-04-21] MEDS: PREGABALIN 50 MG CAP PO SCH ×3 (07:52→21:11)
[2018-04-21] MEDS: PANTOPRAZOLE 40 MG TABLET PO SCH (07:52)
[2018-04-21] MEDS: ASPIRIN 325 MG TAB PO SCH (07:52)
[2018-04-21] MEDS: HEPARIN SODIUM,PORCINE 5,000 UNIT/ML 1 ML VIAL SQ SCH ×2 (07:54→21:10)
[2018-04-21 08:07] LABS: Basophils % (A) 0 %; Eosinophils % (A) 0 %; HCT 33.8 % (34.0-46.0); HGB 10.8 gm/dL (11.4-16.0); Hypochromasia Slight; Lymphocytes # (A) 0.5 k/uL (1.0-4.8); Lymphocytes % (A) 6 %; MCH 26.7 pg (25.0-35.0); MCHC 32.1 g/dL (31.0-37.0); MCV 83.3 fL (80.0-100.0); Mean Platelet Volume 7.3; Monocytes # (A) 0.3 k/uL (0-1.0); Monocytes % (A) 3 %; Neutrophils # (A) 7.3 k/uL (1.3-7.7); Neutrophils % (A) 90 %; Platelet Count 335 k/uL (150-450); RBC 4.06 m/uL (3.80-5.40); RDW 14.4 % (11.5-15.5); WBC 8.2 k/uL (3.8-10.6)
[2018-04-21 08:21] LABS: Calcium 8.8 mg/dL (8.4-10.2); Potassium 4.4 mmol/L (3.5-5.1)
[2018-04-21] MEDS: BUDESONIDE 1 MG/2 ML NEBU INHALATION SCH ×2 (08:44→21:05)
[2018-04-21] MEDS: FORMOTEROL FUMARATE 20 MCG/2 ML NEBU INHALATION SCH ×2 (08:44→21:05)
[2018-04-21] MEDS: IPRATROPIUM-ALBUTEROL 3 ML NEB INHALATION SCH ×4 (08:44→21:07)
[2018-04-21] MEDS ORDERED: FENOFIBRATE 160 MG TAB PO SCH (09:00)
[2018-04-21 11:24] LABS: Glucose,Whole Blood 128 mg/dL (75-99)
[2018-04-21] MEDS: LORazepam 0.5 MG TAB PO PRN (13:15)
[2018-04-21] MEDS: oxyCODONE-APAP 7.5-325MG 1 EACH TAB PO PRN ×2 (15:28→21:12)
[2018-04-21] MEDS: methylPREDNISolone SOD SUCCI 40 MG/ML 1 ML VIAL IV SCH (15:29)
[2018-04-21 17:29] LABS: Glucose,Whole Blood 178 mg/dL (75-99)
[2018-04-21 20:00] LABS: Glucose,Whole Blood 205 mg/dL (75-99)
[2018-04-21] MEDS: hydrOXYzine PAMOATE 25 MG CAP PO SCH (21:10)
[2018-04-21] MEDS: MELATONIN 3 MG TABLET PO SCH (21:11)
[2018-04-21] MEDS: MIRTAZAPINE 15 MG TAB PO SCH (21:11)
[2018-04-21] MEDS: PRAMIPEXOLE 0.25 MG TAB PO SCH (21:11)
--- NOTE | 2018-04-21 23:43 | P.PN ---
Subjective Progress Note Date: 04/20/18 Principal diagnosis: Acute COPD exacerbation Patient is a 68-year-old female with known history of COPD, CHF with diastolic dysfunction, morbid obesity and obesity hypoventilation syndrome, chronic pain and pain syndrome and chronic back pain and history of recent fall and multiple other medical problems and frequent previous admissions came to ER with complaints of shortness of breath worsening for the past few days. Patient had previous admission with COPD exacerbation. Patient is also complaining of chronic back pain and history of falls and wants to be placed to rehab. Patient lives with her son who is also hospitalized now. Patient does have a history of anxiety and depression issues. 04/20/2018 Patient denied any complaints of chest pain. Patient does have shortness of breath and unable to ambulate the hallway. Following PT OT but could not make good effort due to pain. Requesting IV pain medications otherwise. Patient was sent to VQ scan yesterday (pulmonary embolism but unable to tolerate the exam. Spiral CT of the chest was obtained shows no significant abnormalities. No evidence of pulmonary embolism. Currently patient is saturating well on room air. Blood pressure is controlled. Patient is being continued on IV steroids and breathing treatments and pain medications in the form of morphine patient be changed to [place]. PT OT is following. No other acute overnight issues. Current medications reviewed. Objective - Vital Signs Vital signs: Vital Signs Temp 97.8 F 04/20/18 14:20 Pulse 80 04/20/18 14:20 Resp 16 04/20/18 14:20 BP 149/77 04/20/18 14:20 Pulse Ox 100 04/20/18 14:20 Intake & Output 04/19/18 04/20/18 04/20/18 18:59 06:59 18:59 Intake Total 1450 657 Output Total 500 300 Balance 950 357 Weight 158.757 kg Intake: Oral 1450 657 Output: Urine 500 300 Other: Voiding Method Bedside Commode Bedside Commode Bedside Commode # Voids 2 1 - Exam PHYSICAL EXAMINATION: Patient is lying in the bed comfortably, no acute distress, awake alert and oriented. Morbid obesity. HEENT: Normocephalic. Neck is supple. Pupils reactive. Nostrils clear. Oral cavity is moist. Ears reveal no drainage. Neck reveals no JVD, carotid bruits, or thyromegaly. CHEST EXAMINATION: Trachea is central. Symmetrical expansion. Bibasilar diminished air entry and expiratory wheezing. CARDIAC: Normal S1, S2 with no gallops. No murmurs ABDOMEN: Soft. Bowel sounds normal. No organomegaly. No abdominal bruits. Extremities: reveal no edema. No clubbing or cyanosis Neurologically awake, alert, oriented x3 with well-coordinated movements. No focal deficits noted Skin: No rash or skin lesions. Psychiatric: Coperative. Being emotional and crying sometimes with conversation Musculoskeletal: No joint swelling or deformity. Normal range of motion. - Labs CBC & Chem 7: 04/21/18 06:59 04/21/18 06:59 Labs: Abnormal Lab Results - Last 24 Hours (Table) 04/19/18 04/19/18 04/20/18 Range/Units 17:13 20:18 06:46 Hgb (11.4-16.0) gm/dL Hct (34.0-46.0) % Lymphocytes # (1.0-4.8) k/uL BUN (7-17) mg/dL Glucose (74-99) mg/dL POC Glucose (mg/dL) 158 H 207 H 164 H (75-99) mg/dL 04/20/18 04/20/18 04/20/18 Range/Units 07:03 07:03 11:06 Hgb 10.7 L (11.4-16.0) gm/dL Hct 33.4 L (34.0-46.0) % Lymphocytes # 0.5 L (1.0-4.8) k/uL BUN 18 H (7-17) mg/dL Glucose 155 H (74-99) mg/dL POC Glucose (mg/dL) 242 H (75-99) mg/dL Assessment and Plan Assessment: Shortness breath secondary to acute COPD exacerbation and possible tracheal bronchitis CTA is negative for pulmonary embolism Recent mechanical fall and chronic back pain and chronic pain syndrome History of CHF with diastolic dysfunction chronic GERD History of IA degenerative joint disease Urinary incontinence chronic Hypothyroidism Morbid obesity BMI 67 DVT prophylaxis Plan: Patient be continued on breathing treatments and IV steroids. Continue with pain management. Avoid IV pain medications. Rule out pulmonary embolism. PTOT and possible transfer to rehab. Time with Patient: Greater than 30
--- NOTE | 2018-04-21 23:45 | P.PN ---
Subjective Progress Note Date: 04/21/18 Principal diagnosis: Acute COPD exacerbation Patient is a 68-year-old female with known history of COPD, CHF with diastolic dysfunction, morbid obesity and obesity hypoventilation syndrome, chronic pain and pain syndrome and chronic back pain and history of recent fall and multiple other medical problems and frequent previous admissions came to ER with complaints of shortness of breath worsening for the past few days. Patient had previous admission with COPD exacerbation. Patient is also complaining of chronic back pain and history of falls and wants to be placed to rehab. Patient lives with her son who is also hospitalized now. Patient does have a history of anxiety and depression issues. 04/20/2018 Patient denied any complaints of chest pain. Patient does have shortness of breath and unable to ambulate the hallway. Following PT OT but could not make good effort due to pain. Requesting IV pain medications otherwise. Patient was sent to VQ scan yesterday (pulmonary embolism but unable to tolerate the exam. Spiral CT of the chest was obtained shows no significant abnormalities. No evidence of pulmonary embolism. Currently patient is saturating well on room air. Blood pressure is controlled. Patient is being continued on IV steroids and breathing treatments and pain medications in the form of morphine patient be changed to [place]. PT OT is following. No other acute overnight issues. 04/20/2018 Patient's breathing status is much improved. Otherwise still complaining of pain and shortness of breath with walking with physical therapy. PT OT recommends rehab transfer. Otherwise patient did use her REHAB days for dysuria. No fever no chills. No cough is from production. Patient continues to be on IV steroids. We will decrease dose to 40 mg every 8 hourly. Continue the oral pain management. Current medications reviewed. Objective - Vital Signs Vital signs: Vital Signs Temp 98.6 F 04/21/18 19:15 Pulse 80 04/21/18 19:15 Resp 14 04/21/18 19:15 BP 147/73 04/21/18 19:15 Pulse Ox 93 L 04/21/18 19:15 Intake & Output 04/21/18 04/21/18 04/22/18 06:59 18:59 06:59 Intake Total 400 437 Balance 400 437 Weight 166.043 kg Intake: Oral 400 437 Other: Voiding Method Bedside Commode Bedside Commode Bedside Commode # Voids 2 2 1 - Exam PHYSICAL EXAMINATION: Patient is lying in the bed comfortably, no acute distress, awake alert and oriented. Morbid obesity. HEENT: Normocephalic. Neck is supple. Pupils reactive. Nostrils clear. Oral cavity is moist. Ears reveal no drainage. Neck reveals no JVD, carotid bruits, or thyromegaly. CHEST EXAMINATION: Trachea is central. Symmetrical expansion. Prolonged expiration and poor inspiratory effort. No wheezing noted.. CARDIAC: Normal S1, S2 with no gallops. No murmurs ABDOMEN: Soft. Bowel sounds normal. No organomegaly. No abdominal bruits. Extremities: reveal no edema. No clubbing or cyanosis Neurologically awake, alert, oriented x3 with well-coordinated movements. No focal deficits noted Skin: No rash or skin lesions. Psychiatric: Coperative. Being emotional and crying sometimes with conversation Musculoskeletal: No joint swelling or deformity. Normal range of motion. - Labs CBC & Chem 7: 04/21/18 06:59 04/21/18 06:59 Labs: Abnormal Lab Results - Last 24 Hours (Table) 04/21/18 04/21/18 04/21/18 Range/Units 06:59 06:59 07:11 Hgb 10.8 L (11.4-16.0) gm/dL Hct 33.8 L (34.0-46.0) % Lymphocytes # 0.5 L (1.0-4.8) k/uL Chloride 108 H (98-107) mmol/L BUN 24 H (7-17) mg/dL Glucose 160 H (74-99) mg/dL POC Glucose (mg/dL) 169 H (75-99) mg/dL 04/21/18 04/21/18 04/21/18 Range/Units 11:23 17:27 19:58 Hgb (11.4-16.0) gm/dL Hct (34.0-46.0) % Lymphocytes # (1.0-4.8) k/uL Chloride (98-107) mmol/L BUN (7-17) mg/dL Glucose (74-99) mg/dL POC Glucose (mg/dL) 128 H 178 H 205 H (75-99) mg/dL Assessment and Plan Assessment: Shortness breath secondary to acute COPD exacerbation and possible tracheal bronchitis CTA is negative for pulmonary embolism Recent mechanical fall and chronic back pain and chronic pain syndrome History of CHF with diastolic dysfunction chronic GERD History of CT degenerative joint disease Urinary incontinence chronic Hypothyroidism Morbid obesity BMI 67 DVT prophylaxis Plan: Patient be continued on breathing treatments and IV steroids. Continue with pain management. Avoid IV pain medications. Ruled out pulmonary embolism. PTOT and possible transfer to rehab. Time with Patient: Greater than 30
[2018-04-22] MEDS: methylPREDNISolone SOD SUCCI 40 MG/ML 1 ML VIAL IV SCH ×2 (00:14→08:37)
[2018-04-22 01:15] VITALS: RESP 16
[2018-04-22] MEDS: oxyCODONE-APAP 7.5-325MG 1 EACH TAB PO PRN ×3 (03:33→15:30)
[2018-04-22] MEDS: LEVOTHYROXINE 100 MCG TAB PO SCH (05:49)
[2018-04-22 07:12] LABS: Glucose,Whole Blood 135 mg/dL (75-99)
[2018-04-22] MEDS: INSULIN ASPART 100 UNIT/ML 1 ML 10 ML VIAL SQ SCH ×2 (07:45→12:35)
[2018-04-22] MEDS: IPRATROPIUM-ALBUTEROL 3 ML NEB INHALATION SCH ×3 (08:35→16:45)
[2018-04-22] MEDS: BUDESONIDE 1 MG/2 ML NEBU INHALATION SCH (08:35)
[2018-04-22] MEDS: FORMOTEROL FUMARATE 20 MCG/2 ML NEBU INHALATION SCH (08:35)
[2018-04-22] MEDS: PREGABALIN 50 MG CAP PO SCH ×2 (08:37→15:30)
[2018-04-22] MEDS: ASPIRIN 325 MG TAB PO SCH (08:37)
[2018-04-22] MEDS: HEPARIN SODIUM,PORCINE 5,000 UNIT/ML 1 ML VIAL SQ SCH (08:37)
[2018-04-22 09:18] LABS: Basophils % (A) 0 %; Eosinophils # (A) 0.1 k/uL (0-0.7); Eosinophils % (A) 1 %; HCT 36.5 % (34.0-46.0); HGB 11.6 gm/dL (11.4-16.0); Hypochromasia Slight; Lymphocytes # (A) 0.8 k/uL (1.0-4.8); Lymphocytes % (A) 9 %; MCH 26.5 pg (25.0-35.0); MCHC 31.8 g/dL (31.0-37.0); MCV 83.5 fL (80.0-100.0); Mean Platelet Volume 6.9; Monocytes # (A) 0.3 k/uL (0-1.0); Monocytes % (A) 4 %; Neutrophils # (A) 7.7 k/uL (1.3-7.7); Neutrophils % (A) 86 %; Platelet Count 341 k/uL (150-450); RBC 4.37 m/uL (3.80-5.40); RDW 14.4 % (11.5-15.5); WBC 8.9 k/uL (3.8-10.6)
[2018-04-22] MEDS: LORazepam 0.5 MG TAB PO PRN (09:30)
[2018-04-22] MEDS ORDERED: NITROGLYCERIN SL TABS 0.4 MG TAB SUBLINGUAL PRN (09:35)
[2018-04-22] MEDS: PANTOPRAZOLE 40 MG TABLET PO SCH (09:42)
[2018-04-22 12:03] LABS: Glucose,Whole Blood 121 mg/dL (75-99)
[2018-04-22] MEDS: HYDROcodone/APAP 10-325MG 1 EACH TAB PO PRN (12:32)
--- NOTE | 2018-04-22 14:34 | P.PN ---
Subjective Progress Note Date: 04/22/18 Principal diagnosis: Acute COPD exacerbation, tracheobronchitis, obstructive sleep apnea, sleep disorder breathing 04/22/2018, patient seen eval reexamined during the rounds clinically from [place] standpoint doing better noted that steroids are being tapered down would recommend to change it to oral prednisone over next 24, continue other supportive care, care plan discussed with the patient as well as staff at length 04/21/18, patient seen and evaluated examined during the rounds still of ongoing cough congestion shortness of breath severity has not improved though she has been tolerating breathing treatments fairly well able to sleep relatively better now no more episodes of coughing spells happening at nighttime , patient continued to refuse CPAP machine and evaluation for sleep disorder breathing and sleep apnea, agree with lowering down the IV steroids 04/20/2018, patient seen eval reexamined during the rounds clinically overall not much change aches and pains that has been present in the shoulder area and neck headache and throughout the body slightly better with the pain management, respiratory status slightly better patient continued to complain of the water retention however denies any hemoptysis denies any purulent sputum production does have intermittent cough does get short of breath on activity 68-year-old female well-known to me patient has severe degree of sleep disorder breathing and sleep apnea but has declined evaluation as well as treatment of with BiPAP in that regard patient has baseline condition of the COPD related to chronic persistent asthma as well as a history of congestive heart failure patient was at home and start developing increasing shortness of breath also intermittent cough congestion and wheezing symptoms started one to 2 day prior to coming into the hospital she also noted increased swelling of the lower extremity with the start gaining weight for the last several week with worsening overall problems decided to come into the hospital for further evaluation, Patient reports she is experiencing wheezing and feeling as though she cannot catch her breath. Patient also complains of chest pain which is worsened today than her baseline. Pain is described as tightness throughout her chest. She is uncertain if it's related to wheezing or related to her heart. She cannot identify any exacerbating or relieving factors to this pain. She has not attempted to be active to see if activity worsens the pain. On specific questioning she denies any chest pain but is more of a tightness, has generalized aches and pain all over the body denies any loss of consciousness) denies any hemoptysis denies any other bowel or bladder dysfunction Objective - Vital Signs Vital signs: Vital Signs Temp 98.2 F 04/22/18 07:00 Pulse 88 04/22/18 08:57 Resp 16 04/22/18 07:00 BP 164/90 04/22/18 07:00 Pulse Ox 98 04/22/18 08:38 Intake & Output 04/21/18 04/22/18 04/22/18 18:59 06:59 18:59 Intake Total 437 580 Balance 437 580 Intake: Oral 437 580 Other: Voiding Method Bedside Commode Bedside Commode Bedside Commode # Voids 2 1 - Exam GENERAL: Chronically ill-appearing, obese, in moderate respiratory distress HENT: Normocephalic, Atraumatic. Neck is soft and supple. No significant lymphadenopathy is noted. Oropharynx is clear. Moist mucous membranes. Neck has full range of motion without eliciting any pain. EYES: The sclera were anicteric and conjunctiva were pink and moist. Extraocular movements were intact and pupils were equal round and reactive to light. Eyelids were unremarkable. PULMONARY: Poor air entry basis fine wheezing are present on fours expiration CARDIOVASCULAR: There is a regular rate and rhythm without any murmurs gallops or rubs. ABDOMEN: Soft and nontender with normal bowel sounds. SKIN: Skin is clear with no lesions or rashes and otherwise unremarkable. : Rectal exam with decreased rectal tone which is unchanged from the patient, guaiac-negative NEUROLOGIC: Patient is alert and oriented x3. Cranial nerves II through XII are grossly intact. MUSCULOSKELETAL: 1+ pitting edema to the bilateral lower extremities, range of motion is limited by patient's body habitus, normal strength in all extremities LYMPHATICS: No significant lymphadenopathy is noted PSYCHIATRIC: Anxious Limitations: no limitations - Labs CBC & Chem 7: 04/22/18 09:05 04/21/18 06:59 Labs: Abnormal Lab Results - Last 24 Hours (Table) 04/21/18 04/21/18 04/22/18 Range/Units 17:27 19:58 07:10 Lymphocytes # (1.0-4.8) k/uL POC Glucose (mg/dL) 178 H 205 H 135 H (75-99) mg/dL 04/22/18 04/22/18 Range/Units 09:05 12:00 Lymphocytes # 0.8 L (1.0-4.8) k/uL POC Glucose (mg/dL) 121 H (75-99) mg/dL Assessment and Plan Assessment: Acute COPD exacerbation Chronic persistent mild to moderate asthma Tracheobronchitis Acute exacerbation of CHF likely diastolic heart failure likely secondary to do to above Prior history of recurrent fall generalized aches and pain colitis History of myocardial infarction Severe morbid obesity Sleep disorder breathing and sleep apnea Plan: Gentle diuresis Bronchodilators DVT and peptic ulcer disease prophylaxis IV steroids, continued to progressively tapered down as tolerated, can be switched over next 24 hours Supportive care and pain management Further recommendations pending plan of care as per clinical response of the patient Time with Patient: Greater than 30
[2018-04-22 16:37] VITALS: BP 150/82; PULSE 91; TEMP 98.3
--- NOTE | 2018-04-23 00:10 | P.DS ---
Providers Date of admission: 04/18/18 23:35 Expected date of discharge: 04/22/18 Attending physician: Ananth Hobson MD Consults: 04/18/18 23:30 Consult Physician Routine Consulting Provider: [facility] Consult Reason/Comments: CHF Do you want consulting provider notified?: Yes, Notify in am Consult Physician Routine Consulting Provider: Peter Howard Consult Reason/Comments: COPD Do you want consulting provider notified?: Already Contacted [facility] Course: Discharge diagnosis Shortness breath secondary to acute COPD exacerbation CTA is negative for pulmonary embolism Recent mechanical fall and chronic back pain and chronic pain syndrome History of CHF with diastolic dysfunction chronic GERD History of [place] degenerative joint disease Urinary incontinence chronic Hypothyroidism Morbid obesity BMI 67 DVT prophylaxis Hospital course Patient is a 68-year-old female with known history of COPD, CHF with diastolic dysfunction, morbid obesity and obesity hypoventilation syndrome, chronic pain and pain syndrome and chronic back pain and history of recent fall and multiple other medical problems and frequent previous admissions came to ER with complaints of shortness of breath worsening for the past few days. Patient had previous admission with COPD exacerbation. Patient is also complaining of chronic back pain and history of falls and wants to be placed to rehab. Patient lives with her son who is also hospitalized now. Patient does have a history of anxiety and depression issues. 04/20/2018 Patient denied any complaints of chest pain. Patient does have shortness of breath and unable to ambulate the hallway. Following PT OT but could not make good effort due to pain. Requesting IV pain medications otherwise. Patient was sent to VQ scan yesterday (pulmonary embolism but unable to tolerate the exam. Spiral CT of the chest was obtained shows no significant abnormalities. No evidence of pulmonary embolism. Currently patient is saturating well on room air. Blood pressure is controlled. Patient is being continued on IV steroids and breathing treatments and pain medications in the form of morphine patient be changed to [place]. PT OT is following. No other acute overnight issues. 04/20/2018 Patient's breathing status is much improved. Otherwise still complaining of pain and shortness of breath with walking with physical therapy. PT OT recommends rehab transfer. Otherwise patient did use her REHAB days for dysuria. No fever no chills. No cough is from production. Patient continues to be on IV steroids. We will decrease dose to 40 mg every 8 hourly. Continue the oral pain management. 04/22/2018 Patient's breathing status is much improved now. She drives will be changed to oral. Monitor for antibiotics. PTOT recommends home PT. Patient is being discharged home today. Patient was recommended to follow with primary care physician. Counseled her medication compliance and follow-up. Vital Signs - 24 hr 04/22/18 04/22/18 04/22/18 00:35 07:00 08:38 Temperature 98.1 F 98.2 F Pulse Rate 88 Pulse Rate [ 70 96 Pulse Oximetery ] Respiratory 16 16 Rate Blood Pressure 125/73 164/90 [Left Radial Artery] O2 Sat by Pulse 97 96 98 Oximetry 04/22/18 04/22/18 04/22/18 08:52 08:57 15:00 Temperature 98.3 F Pulse Rate 84 88 Pulse Rate [ 91 Pulse Oximetery ] Respiratory 16 Rate Blood Pressure 150/82 [Left Radial Artery] O2 Sat by Pulse 94 L Oximetry PHYSICAL EXAMINATION: Patient is lying in the bed comfortably, no acute distress, awake alert and oriented. Morbid obesity. HEENT: Normocephalic. Neck is supple. Pupils reactive. Nostrils clear. Oral cavity is moist. Ears reveal no drainage. Neck reveals no JVD, carotid bruits, or thyromegaly. CHEST EXAMINATION: Trachea is central. Symmetrical expansion. Prolonged expiration and poor inspiratory effort. No wheezing noted.. CARDIAC: Normal S1, S2 with no gallops. No murmurs ABDOMEN: Soft. Bowel sounds normal. No organomegaly. No abdominal bruits. Extremities: reveal no edema. No clubbing or cyanosis Neurologically awake, alert, oriented x3 with well-coordinated movements. No focal deficits noted Skin: No rash or skin lesions. Psychiatric: Coperative. Being emotional and crying sometimes with conversation Musculoskeletal: No joint swelling or deformity. Normal range of motion. Total time taken greater than 35 minutes including 18 minutes for counseling and coordination of care. Patient Condition at Discharge: Stable Plan - Discharge Summary Discharge Rx Participant: No New Discharge Prescriptions: New predniSONE See Taper PO DAILY #18 tab oxyCODONE-APAP 7.5-325MG [Percocet 7.5-325 mg] 1 each PO Q4HR PRN 3 Days #18 tab PRN Reason: SEVERE Pain Continue Levothyroxine Sodium [Synthroid] 100 mcg PO DAILY hydrOXYzine PAMOATE [Vistaril] 25 mg PO HS Pramipexole [Mirapex] 0.25 mg PO HS Mirtazapine [Remeron] 15 mg PO HS tab Pregabalin [Lyrica] 50 mg PO TID #9 cap Ipratropium-Albuterol Nebulize [Duoneb 0.5 mg-3 mg/3 ml Soln] 3 ml INHALATION RT-QID #0 ampul.neb LORazepam [Ativan] 0.5 mg PO TID PRN #9 tab PRN Reason: Anxiety Omeprazole [PriLOSEC] 20 mg PO AC-BID Albuterol Inhaler [Ventolin Hfa Inhaler] 1 - 2 puff INHALATION RT-Q6H PRN PRN Reason: Shortness Of Breath Protonix Unknown Strength 1 tab PO DAILY Discontinued HYDROcodone/APAP 10-325MG [[place] 10-325] 1 tab PO QID PRN #12 tab PRN Reason: Pain Discharge Medication List Levothyroxine Sodium [Synthroid] 100 mcg PO DAILY 11/10/17 [History] hydrOXYzine PAMOATE [Vistaril] 25 mg PO HS 01/22/18 [History] Pramipexole [Mirapex] 0.25 mg PO HS 01/23/18 [History] Mirtazapine [Remeron] 15 mg PO HS tab 01/28/18 [Rx] Ipratropium-Albuterol Nebulize [Duoneb 0.5 mg-3 mg/3 ml Soln] 3 ml INHALATION RT -QID #0 ampul.neb 03/24/18 [Rx] LORazepam [Ativan] 0.5 mg PO TID PRN #9 tab 03/24/18 [Rx] Pregabalin [Lyrica] 50 mg PO TID #9 cap 03/24/18 [Rx] Albuterol Inhaler [Ventolin Hfa Inhaler] 1 - 2 puff INHALATION RT-Q6H PRN [History] Omeprazole [PriLOSEC] 20 mg PO AC-BID 04/19/18 [History] Protonix Unknown Strength 1 tab PO DAILY 04/19/18 [History] oxyCODONE-APAP 7.5-325MG [Percocet 7.5-325 mg] 1 each PO Q4HR PRN 3 Days #18 tab 04/22/18 [Rx] predniSONE See Taper PO DAILY #18 tab 04/22/18 [Rx] Follow up Appointment(s)/Referral(s): [facility], [NON-STAFF] - Jorje Domingo MD [Primary Care Provider] - 1-2 days Discharge Disposition: HOME WITH HOME HEALTH SERVICES
--- NOTE | 2018-04-23 06:08 | CDI ---
Last Revision, July 2017 Documentation Clarification Form Date: 04/23/2018 5:51:34 AM From: Eva Blanco Phone: If you have a question about this query, please contact Anel Wooten Brownell Operator at [phone] between 8am and 5pm. Admit Date: 04/18/2018 11:35:00 PM Patient Name: Renée Krishnan Visit Number: [id number] Discharge Date: 04/21/18 ATTENTION: The Clinical Documentation Specialists (CDI) and [facility] Coding Staff appreciate your assistance in clarifying documentation. Please respond to the clarification below the line at the bottom and electronically sign. The CDI & [facility] Coding staff will review the response and follow-up if needed. Please note: Queries are made part of the Legal Health Record. If you have any questions, please contact the author of this message via ITS. Dr. SMITH, Ananth Mcgovern MD History/Risk Factors:. COPD, bronchitis, chronic diastolic CHF, morbid obesity, family hx. Clinical Indicators: increased swelling of lower extremities, wheezing, cough congestion, cannot catch her breath, hx [place], CP VS/Pulse OX: lowest 91 RA 04/20/18 BNP: 787 Chest X Ray: negative Treatment: Gental diuresis Pulmonary consult documents Acute exacerbation of CHF likely diastolic heart failure secondary to above. Please clarify if patient had an acute exacerbation of diastolic heart failure. Diastolic Heart Failure: Acute Chronic Acute on Chronic Unable to Determine Other, please specify If so, was it POA? unable to determine MTDD
== END 2018-04-22 16:35 | disposition home health service (06) | DRG 191 ==
LOC: EC 20:42 → 3SUR 23:35
PROVIDERS: ADMIT Internal Medicine; ATTEND Internal Medicine
DX: J44.0 Chronic obstructive pulmonary disease with (acute) lower respiratory infection (principal); E66.2 Morbid (severe) obesity with alveolar hypoventilation; I50.32 Chronic diastolic (congestive) heart failure; Z68.44 Body mass index [BMI] 60.0-69.9, adult; E03.9 Hypothyroidism, unspecified; J44.1 Chronic obstructive pulmonary disease with (acute) exacerbation; F40.240 Claustrophobia; G89.4 Chronic pain syndrome; I25.2 Old myocardial infarction; J20.9 Acute bronchitis, unspecified; K21.9 Gastro-esophageal reflux disease without esophagitis; K58.9 Irritable bowel syndrome, unspecified; M19.90 Unspecified osteoarthritis, unspecified site; M79.7 Fibromyalgia; R32 Unspecified urinary incontinence; R79.1 Abnormal coagulation profile; Z79.899 Other long term (current) drug therapy; Z80.1 Family history of malignant neoplasm of trachea, bronchus and lung; Z82.3 Family history of stroke; Z82.49 Family history of ischemic heart disease and other diseases of the circulatory system; Z80.52 Family history of malignant neoplasm of bladder; Z85.42 Personal history of malignant neoplasm of other parts of uterus; Z86.19 Personal history of other infectious and parasitic diseases; Z87.01 Personal history of pneumonia (recurrent); Z87.19 Personal history of other diseases of the digestive system; Z87.440 Personal history of urinary (tract) infections; Z87.442 Personal history of urinary calculi; Z90.710 Acquired absence of both cervix and uterus; M54.9 Dorsalgia, unspecified; W19.XXXS Unspecified fall, sequela; Z96.653 Presence of artificial knee joint, bilateral; Z96.642 Presence of left artificial hip joint; Z79.890 Hormone replacement therapy; J45.40 Moderate persistent asthma, uncomplicated; Z88.5 Allergy status to narcotic agent; Z88.8 Allergy status to other drugs, medicaments and biological substances; Z91.041 Radiographic dye allergy status; Z88.6 Allergy status to analgesic agent; Z87.11 Personal history of peptic ulcer disease
CPT/HCPCS: 36415; 71046; 71250; 80048; 80053; 82272; 82550; 82553; 83036; 83735; 83880; 84484; 85025; 85379; 85610; 85730; 86850; 86900; 86901; 86920; 93005; 94640; 94760; 96374; 96375; 99291

== ENCOUNTER 2018-04-25 14:02 | Inpatient (IN) | payer MEDICARE, OTHER ==
[2018-04-25] MEDS ORDERED: IPRATROPIUM-ALBUTEROL 3 ML NEB INHALATION STA (14:07)
[2018-04-25] MEDS ORDERED: DEXAMETHASONE SOD PHOSPHATE 10 MG/ML 1 ML VIAL IV STA (14:08)
[2018-04-25 14:40] LABS: Basophils % (A) 0 %; Eosinophils # (A) 0.4 k/uL (0-0.7); Eosinophils % (A) 4 %; HGB 11.4 gm/dL (11.4-16.0); Hypochromasia Slight; Lymphocytes # (A) 1.3 k/uL (1.0-4.8); Lymphocytes % (A) 11 %; MCH 25.9 pg (25.0-35.0); MCHC 30.8 g/dL (31.0-37.0); MCV 84.3 fL (80.0-100.0); Mean Platelet Volume 6.3; Monocytes # (A) 0.3 k/uL (0-1.0); Monocytes % (A) 3 %; Neutrophils # (A) 8.9 k/uL (1.3-7.7); Neutrophils % (A) 81 %; Platelet Count 236 k/uL (150-450); RBC 4.39 m/uL (3.80-5.40); RDW 14.6 % (11.5-15.5)
--- NOTE | 2018-04-25 14:43 | XR ---
EXAMINATION TYPE: XR chest 2V DATE OF EXAM: 04/25/2018 COMPARISON: 04/18/2018 HISTORY: 68-year-old female shortness of breath, difficulty breathing TECHNIQUE: Frontal and lateral views FINDINGS: Rightward patient rotation altering the normal cardiac and mediastinal contours. Large patient body h abitus and underpenetrated exam. Heart appears borderline enlarged. Elongated/ectatic thoracic aorta. Lung bases particularly the left base is underpenetrated and not well assessed. No significant pleur al effusion seen. IMPRESSION: Suboptimal rotated and underpenetrated exam. No appreciable pneumothorax or pleural effusion.
[2018-04-25 14:49] LABS: ALT 21 U/L (9-52); AST 19 U/L (14-36); Albumin 3.5 g/dL (3.5-5.0); Alkaline Phosphatase 83 U/L (38-126); Anion Gap 8 mmol/L; Blood Urea Nitrogen 17 mg/dL (7-17); Calcium 8.6 mg/dL (8.4-10.2); Carbon Dioxide 26 mmol/L (22-30); Chloride 105 mmol/L (98-107); Glucose 136 mg/dL (74-99); Sodium 139 mmol/L (137-145); Total Bilirubin 0.6 mg/dL (0.2-1.3); Total Protein 5.9 g/dL (6.3-8.2)
[2018-04-25 14:52] LABS: Prothrombin Time 10.1 sec (9.0-12.0)
[2018-04-25 14:59] LABS: Partial Thromboplastin Time 21.4 sec (22.0-30.0)
[2018-04-25 15:10] LABS: Creatine Kinase 24 U/L (30-135)
[2018-04-25] MEDS ORDERED: ONDANSETRON 4 MG/2 ML VIAL IVP STA (15:21)
[2018-04-25 15:22] LABS: Creatine Kinase MB 0.5 ng/mL (0.0-2.4); Troponin I <0.012 ng/mL (0.000-0.034)
[2018-04-25] MEDS ORDERED: MORPHINE SULFATE 4 MG/ML SYRINGE IVP STA (15:22)
[2018-04-25 15:27] LABS: Amorphous Sediment,Urine Occasional /hpf; Appearance,Urine Turbid (Clear); Bacteria,Urine Moderate /hpf; Bilirubin,Urine Negative (Negative); Blood,Urine Small (Negative); Color,Urine Yellow; Glucose,Urine (UA) Negative (Negative); Ketones,Urine Negative (Negative); Leukocyte Esterase,Urine Large (Negative); Mucus,Urine Many /hpf; Nitrite,Urine Positive (Negative); Protein,Urine Trace (Negative); RBC,Urine 19 /hpf (0-5); Specific Gravity,Urine 1.018 (1.001-1.035); Urobilinogen,Urine <2.0 mg/dL (<2.0); WBC,Urine >182 /hpf (0-5)
[2018-04-25] MEDS ORDERED: cefTRIAXone 2,000 MG in SODIUM CHLORIDE 0.9% 100 ML IVPB STA (15:44)
[2018-04-25] MEDS ORDERED: AZITHROMYCIN 500 MG in SODIUM CHLORIDE 0.9% 250 ML IVPB STA (15:45)
[2018-04-25] MEDS ORDERED: NALOXONE 0.4 MG/ML 1 ML VIAL IV PRN (15:54)
[2018-04-25] MEDS ORDERED: SODIUM CHLORIDE 0.9% 500 ML IV ONE (15:54)
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
[2018-04-25] MEDS ORDERED: oxyCODONE-APAP 10-325MG 1 EACH TAB PO PRN (17:52)
[2018-04-25] MEDS ORDERED: oxyCODONE-APAP 7.5-325MG 1 EACH TAB PO PRN (20:01)
[2018-04-25] MEDS ORDERED: MORPHINE SULFATE 2 MG/ML SYRINGE IVP STA (20:43)
[2018-04-25] MEDS: MIRTAZAPINE 15 MG TAB PO SCH (21:25)
[2018-04-25] MEDS: PREGABALIN 50 MG CAP PO SCH (21:25)
[2018-04-25] MEDS: PRAMIPEXOLE 0.25 MG TAB PO SCH (21:25)
[2018-04-25] MEDS: hydrOXYzine PAMOATE 25 MG CAP PO SCH (21:28)
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
[2018-04-26] MEDS: HYDROcodone/APAP 10-325MG 1 EACH TAB PO PRN ×3 (01:35→13:26)
[2018-04-26] MEDS: LEVOTHYROXINE 100 MCG TAB PO SCH (06:20)
[2018-04-26] MEDS: IPRATROPIUM-ALBUTEROL 3 ML NEB INHALATION SCH ×4 (07:23→15:27)
[2018-04-26] MEDS: PANTOPRAZOLE 40 MG TABLET PO SCH (07:24)
[2018-04-26] MEDS: HEPARIN SODIUM,PORCINE 5,000 UNIT/ML 1 ML VIAL SQ SCH ×2 (07:27→15:43)
[2018-04-26] MEDS: PREGABALIN 50 MG CAP PO SCH ×3 (08:00→22:06)
[2018-04-26] MEDS: predniSONE 10 MG TAB PO SCH (08:00)
[2018-04-26] MEDS ORDERED: PANTOPRAZOLE PO SCH (09:00)
[2018-04-26] MEDS ORDERED: AZITHROMYCIN 500 MG in SODIUM CHLORIDE 0.9% 250 ML IVPB SCH (09:00)
[2018-04-26] MEDS ORDERED: ONDANSETRON 4 MG/2 ML VIAL IVP STA (09:13)
--- NOTE | 2018-04-26 16:00 | P.PN ---
Subjective Progress Note Date: 04/26/18 Principal diagnosis: Acute urinary tract infection COPD exacerbation Patient is a 68-year-old female with known history of COPD, CHF with diastolic dysfunction, morbid obesity and obesity hypoventilation syndrome, chronic pain and pain syndrome and chronic back pain and history of recent fall and multiple other medical problems and frequent previous admissions came to ER with complaints of shortness of breath worsening times one day. Patient was discharged on hospital on Thursday and was treated for acute COPD exacerbation. Patient had previous admission with COPD exacerbation. Patient had an extensive workup done for shortness of breath.. CT angiogram is negative for any pulmonary embolism. Patient was seen by pulmonary and cardiology during last admission. Patient is also complaining of chronic back pain and history of falls and wants to be placed to rehab. Patient lives with her son who is also hospitalized now. Patient does have a history of anxiety and depression issues. Patient was also complaining of subjective fever and chills. No complaints of chest pain. No nausea vomiting or abdominal pain. T-max is 100.3 on admission. Chest x-ray showed suboptimal rotated and underpenetrated exam. No appreciable pneumothorax or pleural effusion. EKG normal sinus rhythm Lactic acid 2.7. WBC 11.0 UA positive for infection 04/26/2018 Patient refused to get lab tests morning. Patient is being continued on breathing treatments and steroid tapering dose as per recent admission. Continued on antibiotics in the form of ceftriaxone for urinary tract infection. Follow-up urine culture report. Patient is still complaining of back pain and chest pain. Otherwise patient is lying in the bed comfortably. Patient is requesting IV morphine. Currently on Purchase 10 every 6 hourly when necessary. No fever no chills. No nausea vomiting or abdominal pain. No diarrhea. No chest pain or worsening shortness of breath. Current medications reviewed Objective - Vital Signs Vital signs: Vital Signs Temp 98.8 F 04/26/18 15:07 Pulse 99 04/26/18 15:39 Resp 18 04/26/18 15:07 BP 133/73 04/26/18 15:07 Pulse Ox 97 04/26/18 15:27 Intake & Output 04/25/18 04/26/18 04/26/18 18:59 06:59 18:59 Intake Total 820 540 Balance 820 540 Weight 149.685 kg Intake: Intake, IV Titration 100 300 Amount Azithromycin 500 mg In 250 Sodium Chloride 0.9% 250 ml @ 250 mls/hr IVPB ONCE ST[facility] Rx#:[id number] cefTRIAXone 1,000 mg In 100 50 Sodium Chloride 0.9% 50 ml @ 100 mls/hr IVPB Q24HR [facility] Rx#:[id number] Oral 720 240 Other: Voiding Method Bedside Commode Bedside Commode # Voids 3 - Exam PHYSICAL EXAMINATION: Patient is lying in the bed comfortably, no acute distress, awake alert and oriented. Morbid obesity. HEENT: Normocephalic. Neck is supple. Pupils reactive. Nostrils clear. Oral cavity is moist. Ears reveal no drainage. Neck reveals no JVD, carotid bruits, or thyromegaly. CHEST EXAMINATION: Trachea is central. Symmetrical expansion. Bibasilar diminished air entry. Mild expiratory wheeze. Lung bah clear to auscultation and percussion. CARDIAC: Normal S1, S2 with no gallops. No murmurs ABDOMEN: Soft. Bowel sounds normal. No organomegaly. No abdominal bruits. Extremities: reveal no edema. No clubbing or cyanosis Neurologically awake, alert, oriented x3 with well-coordinated movements. No focal deficits noted Skin: No rash or skin lesions. Psychiatric: Coperative. Anxious and emotional. Nonsuicidal Musculoskeletal: No joint swelling or deformity. Normal range of motion. - Labs CBC & Chem 7: 04/25/18 14:00 04/25/18 14:00 Labs: Microbiology - Last 24 Hours (Table) 04/25/18 15:15 Urine Culture - Preliminary Urine,Catheterized Assessment and Plan Assessment: Acute urinary tract infection. Urine culture report pending. Shortness breath secondary to acute COPD exacerbation. Obesity with possible obesity hypoventilation syndrome and obstructive sleep apnea Recent CTA is negative for pulmonary embolism Recent mechanical fall and chronic back pain and chronic pain syndrome History of CHF with diastolic dysfunction chronic GERD History of MO degenerative joint disease Urinary incontinence chronic Hypothyroidism Morbid obesity BMI 67 DVT prophylaxis Plan: Patient was started on antibiotics in the form of ceftriaxone. Patient will be be continued on DuoNeb's and prednisone tapering dose as per recent discharge. Continue the pain medications in the form of Percocet 10 as per patient's home regimen. Continue with other home medications and follow up closely. DVT prophylaxis. PT OT and an increase ambulation. Follow-up urine culture report. Further recommendations based on the clinical course. prognosis is guarded.. Time with Patient: Greater than 30
[2018-04-26] MEDS: ALBUTEROL NEBULIZED 2.5 MG/3 ML INHALATION PRN (19:09)
[2018-04-26] MEDS: oxyCODONE-APAP 10-325MG 1 EACH TAB PO PRN (19:58)
[2018-04-26] MEDS: hydrOXYzine PAMOATE 25 MG CAP PO SCH (21:33)
[2018-04-26] MEDS: MIRTAZAPINE 15 MG TAB PO SCH (21:33)
[2018-04-26] MEDS: PRAMIPEXOLE 0.25 MG TAB PO SCH (21:33)
[2018-04-27] MEDS: HEPARIN SODIUM,PORCINE 5,000 UNIT/ML 1 ML VIAL SQ SCH ×3 (01:14→16:06)
[2018-04-27] MEDS: oxyCODONE-APAP 10-325MG 1 EACH TAB PO PRN ×4 (03:32→21:31)
[2018-04-27] MEDS: LEVOTHYROXINE 100 MCG TAB PO SCH (06:14)
[2018-04-27] MEDS: IPRATROPIUM-ALBUTEROL 3 ML NEB INHALATION SCH ×4 (07:10→20:04)
[2018-04-27] MEDS: predniSONE 10 MG TAB PO SCH (07:57)
[2018-04-27] MEDS: PANTOPRAZOLE 40 MG TABLET PO SCH (07:57)
[2018-04-27] MEDS: PREGABALIN 50 MG CAP PO SCH ×3 (07:57→21:31)
[2018-04-27] MEDS: hydrOXYzine PAMOATE 25 MG CAP PO SCH (21:31)
[2018-04-27] MEDS: PRAMIPEXOLE 0.25 MG TAB PO SCH (21:31)
[2018-04-27] MEDS: MIRTAZAPINE 15 MG TAB PO SCH (21:31)
[2018-04-28] MEDS: HEPARIN SODIUM,PORCINE 5,000 UNIT/ML 1 ML VIAL SQ SCH ×3 (00:20→15:26)
[2018-04-28] MEDS: oxyCODONE-APAP 10-325MG 1 EACH TAB PO PRN ×3 (03:50→21:10)
[2018-04-28] MEDS: LEVOTHYROXINE 100 MCG TAB PO SCH (05:54)
[2018-04-28] MEDS: IPRATROPIUM-ALBUTEROL 3 ML NEB INHALATION SCH ×4 (08:02→19:38)
[2018-04-28] MEDS: predniSONE 10 MG TAB PO SCH (08:20)
[2018-04-28] MEDS: PREGABALIN 50 MG CAP PO SCH ×3 (08:20→22:54)
[2018-04-28] MEDS: PANTOPRAZOLE 40 MG TABLET PO SCH (08:20)
--- NOTE | 2018-04-28 08:22 | CDI ---
Last Revision, July 2017 Documentation Clarification Form Date: 04/28/18 From: Dulce Wu RN Admit Date: 04/25/2018 4:36:00 PM Patient Name: Renée Krishnan Visit Number: [id number] ATTENTION: The Clinical Documentation Specialists (CDI) and [facility] Coding Staff appreciate your assistance in clarifying documentation. Please respond to the clarification below the line at the bottom and electronically sign. The CDI & [facility] Coding staff will review the response and follow-up if needed. Please note: Queries are made part of the Legal Health Record. If you have any questions, please contact the author of this message via ITS. Dr. Ananth Hobson MD, Can you please render your opinion on the following documentation? Pt. admitted with COPD exacerbation and UTI. History/Risk Factors: COPD, CHF, morbid obesity, hypoventilation syndrome, chronic pain, falls, OA, renal disease, skin disorder, hypothyroid, arthritis , c diff, anxiety, and depression Clinical Indicators: WBC on admission: 11.0 Lactic acid: 2.7 Blood cultures: no growth after 48 hours Vitals signs on admission: T 100.3, P 98, R 24, 177/100, 100% 2L Treatment: Antibiotics: Azithromycin IVPB, Ceftriaxone VPB IV Bolus: .9 500ml x 1 In your professional opinion, please clarify if these findings signify one of the following conditions, whether the condition is POA, and cause, if known: Sepsis ruled in Sepsis ruled out SIRS, without underlying infectious process Other, please specify Unable to determine Present on Admission: Yes No Identify the (suspected) organism SIRS with leukocytosis and fever , possible sepsis secondary to pna an penile discharge, pt is on antibiotic MTDD
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
[2018-04-28] MEDS ORDERED: MORPHINE SULFATE 2 MG/ML SYRINGE IVP ONE ×2 (13:45→15:03)
[2018-04-28 14:27] LABS: Basophils % (A) 0 %; Eosinophils # (A) 0.1 k/uL (0-0.7); Eosinophils % (A) 1 %; HGB 11.2 gm/dL (11.4-16.0); Hypochromasia Slight; Lymphocytes # (A) 0.7 k/uL (1.0-4.8); Lymphocytes % (A) 6 %; MCHC 30.4 g/dL (31.0-37.0); MCV 85.5 fL (80.0-100.0); Mean Platelet Volume 6.7; Monocytes # (A) 0.3 k/uL (0-1.0); Monocytes % (A) 3 %; Neutrophils # (A) 10.5 k/uL (1.3-7.7); Neutrophils % (A) 90 %; Platelet Count 310 k/uL (150-450); RBC 4.33 m/uL (3.80-5.40); RDW 14.8 % (11.5-15.5); WBC 11.7 k/uL (3.8-10.6)
[2018-04-28 14:53] LABS: Anion Gap 7 mmol/L; Blood Urea Nitrogen 22 mg/dL (7-17); Calcium 8.7 mg/dL (8.4-10.2); Carbon Dioxide 27 mmol/L (22-30); Chloride 106 mmol/L (98-107); Glucose 164 mg/dL (74-99); Potassium 5.3 mmol/L (3.5-5.1); Sodium 140 mmol/L (137-145)
[2018-04-28] MEDS ORDERED: ALPRAZolam 0.25 MG TAB PO STA (15:13)
--- NOTE | 2018-04-28 16:01 | US ---
EXAMINATION TYPE: US venous doppler duplex LE DATE OF EXAM: 04/28/2018 3:53 PM COMPARISON: US 2017 CLINICAL HISTORY: Rule out DVT. Bilateral leg pain, patient on blood thinners, exam done portable. SIDE PERFORMED: Bilateral TECHNIQUE: The lower extremity deep venous system is examined utilizing real time linear array sonog mariana with graded compression, doppler sonography and color-flow sonography. VESSELS IMAGED: External Iliac Vein (EIV) Common Femoral Vein Deep Femoral Vein Greater Saphenous Vein * Femoral Vein Popliteal Vein Small Saphenous Vein * Proximal Calf Veins (* superficial vessels) Difficult and limited study due to patient body habitus, patient unable to tolerate transducer pres sure = compression images not done. Right Leg: Appears negative for DVT as visualized Left Leg: Appears negative for DVT as visualized IMPRESSION: No evidence for DVT at this time.
--- NOTE | 2018-04-28 20:54 | CT ---
EXAMINATION TYPE: CT chest wo con DATE OF EXAM: 04/28/2018 COMPARISON: 04/19/2018 HISTORY: Short of breath CT DLP: 567.9 mGycm. Automated Exposure Control for Dose Reduction was Utilized. TECHNIQUE: CT scan of the thorax is performed without IV contrast. FINDINGS: There is mild linear density at the lung bases. Lungs are clear of consolidation. There is no pericar dial effusion. There are no hilar masses. There is no mediastinal adenopathy. There is spurring in th e thoracic spine. There is no aortic aneurysm. IMPRESSION: Minimal subsegmental atelectasis at the lung bases. No pulmonary mass or consolidation. N o adverse change compared to old exam.
[2018-04-28] MEDS: hydrOXYzine PAMOATE 25 MG CAP PO SCH (21:10)
[2018-04-28] MEDS: PRAMIPEXOLE 0.25 MG TAB PO SCH (21:10)
[2018-04-28] MEDS: MIRTAZAPINE 15 MG TAB PO SCH (21:10)
[2018-04-29] MEDS: HEPARIN SODIUM,PORCINE 5,000 UNIT/ML 1 ML VIAL SQ SCH ×4 (00:46→23:58)
[2018-04-29] MEDS: oxyCODONE-APAP 10-325MG 1 EACH TAB PO PRN ×4 (04:33→22:42)
[2018-04-29] MEDS: LEVOTHYROXINE 100 MCG TAB PO SCH (06:34)
[2018-04-29] MEDS: IPRATROPIUM-ALBUTEROL 3 ML NEB INHALATION SCH ×4 (07:27→19:36)
[2018-04-29] MEDS: predniSONE 10 MG TAB PO SCH (08:01)
[2018-04-29] MEDS: PANTOPRAZOLE 40 MG TABLET PO SCH (08:01)
[2018-04-29 08:05] LABS: Anion Gap 7 mmol/L; Blood Urea Nitrogen 17 mg/dL (7-17); Calcium 8.7 mg/dL (8.4-10.2); Carbon Dioxide 27 mmol/L (22-30); Chloride 106 mmol/L (98-107); Glucose 81 mg/dL (74-99); Potassium 4.8 mmol/L (3.5-5.1); Sodium 140 mmol/L (137-145)
[2018-04-29] MEDS: PREGABALIN 50 MG CAP PO SCH ×3 (08:06→21:25)
[2018-04-29 08:09] LABS: Basophils % (A) 0 %; Eosinophils # (A) 0.2 k/uL (0-0.7); Eosinophils % (A) 2 %; HCT 37.3 % (34.0-46.0); HGB 11.6 gm/dL (11.4-16.0); Hypochromasia Marked; Lymphocytes # (A) 1.9 k/uL (1.0-4.8); Lymphocytes % (A) 19 %; Mean Platelet Volume 6.5; Monocytes # (A) 0.6 k/uL (0-1.0); Monocytes % (A) 6 %; Neutrophils % (A) 71 %; Platelet Count 264 k/uL (150-450); RBC 4.28 m/uL (3.80-5.40); RDW 14.8 % (11.5-15.5); WBC 9.8 k/uL (3.8-10.6)
[2018-04-29 09:32] LABS: Poikilocytosis (M) Present
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
[2018-04-29] MEDS: ALBUTEROL NEBULIZED 2.5 MG/3 ML INHALATION PRN (19:14)
[2018-04-29] MEDS: MIRTAZAPINE 15 MG TAB PO SCH (21:23)
[2018-04-29] MEDS: PRAMIPEXOLE 0.25 MG TAB PO SCH (21:23)
[2018-04-29] MEDS: hydrOXYzine PAMOATE 25 MG CAP PO SCH (21:23)
[2018-04-30] MEDS: oxyCODONE-APAP 10-325MG 1 EACH TAB PO PRN ×4 (05:36→22:55)
[2018-04-30] MEDS: LEVOTHYROXINE 100 MCG TAB PO SCH (05:36)
[2018-04-30] MEDS: HEPARIN SODIUM,PORCINE 5,000 UNIT/ML 1 ML VIAL SQ SCH ×3 (07:59→22:49)
[2018-04-30] MEDS: PANTOPRAZOLE 40 MG TABLET PO SCH (07:59)
[2018-04-30] MEDS: predniSONE 10 MG TAB PO SCH (08:01)
[2018-04-30] MEDS: IPRATROPIUM-ALBUTEROL 3 ML NEB INHALATION SCH ×4 (08:07→20:46)
[2018-04-30] MEDS: PREGABALIN 50 MG CAP PO SCH ×3 (09:05→22:49)
[2018-04-30] MEDS: LORazepam 0.5 MG TAB PO PRN ×2 (11:10→20:21)
[2018-04-30] MEDS ORDERED: MORPHINE SULFATE 2 MG/ML SYRINGE IVP ONE (12:57)
[2018-04-30] MEDS: hydrOXYzine PAMOATE 25 MG CAP PO SCH (20:20)
[2018-04-30] MEDS: PRAMIPEXOLE 0.25 MG TAB PO SCH (20:20)
[2018-04-30] MEDS: MIRTAZAPINE 15 MG TAB PO SCH (20:21)
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
[2018-05-01] MEDS: oxyCODONE-APAP 10-325MG 1 EACH TAB PO PRN ×3 (05:22→21:12)
[2018-05-01] MEDS: LEVOTHYROXINE 100 MCG TAB PO SCH (05:22)
[2018-05-01] MEDS: HEPARIN SODIUM,PORCINE 5,000 UNIT/ML 1 ML VIAL SQ SCH ×3 (07:53→23:41)
[2018-05-01] MEDS: PANTOPRAZOLE 40 MG TABLET PO SCH (07:53)
[2018-05-01] MEDS: predniSONE 10 MG TAB PO SCH (07:53)
[2018-05-01] MEDS: PREGABALIN 50 MG CAP PO SCH ×3 (07:54→22:15)
[2018-05-01] MEDS: LORazepam 0.5 MG TAB PO PRN ×2 (08:08→16:27)
[2018-05-01] MEDS: IPRATROPIUM-ALBUTEROL 3 ML NEB INHALATION SCH ×4 (09:40→19:16)
--- NOTE | 2018-05-01 13:38 | P.PN ---
Subjective Progress Note Date: 05/01/18 Principal diagnosis: Tracheobronchitis, UTI Mrs. Krishnan is a 68-year-old female with a past medical history of GA, osteoarthritis, CK 80, thyroid disorder coming into the hospital with a chief complaint of increasing shortness of breath and also a fever of 100.3. Patient had a computed tomography scan of the chest was that was negative for PE and has been admitted for further workup. Is currently on antibiotics for her COPD exacerbation which is secondary to acute tracheobronchitis. Patient's urine culture is positive for E. coli and Proteus mirabilis for which she is on ceftriaxone. Today the patient is lying in the bed appears to be in no acute distress.. On review of systems: Patient complains of increased shortness of breath when she goes to use the restroom. She states that it is her baseline. She denies having any chest pain or palpitations. No abdominal pain nausea vomiting or diarrhea. No dysuria or hematuria. Patient has history of chronic low back pain that has been stable. Objective - Vital Signs Vital signs: Vital Signs Temp 97.7 F 05/01/18 12:24 Pulse 115 H 05/01/18 12:34 Resp 18 05/01/18 12:24 BP 147/79 05/01/18 12:24 Pulse Ox 94 L 05/01/18 12:34 Intake & Output 04/30/18 05/01/18 05/01/18 18:59 06:59 18:59 Intake Total 1200 Output Total 300 450 Balance 900 -450 Weight 163.7 kg 165.5 kg Intake: Intake, IV Titration 50 Amount cefTRIAXone 1,000 mg In 50 Sodium Chloride 0.9% 50 ml @ 100 mls/hr IVPB Q24HR [facility] Rx#:[id number] Oral 1150 Output: Urine 300 450 Other: Voiding Method Bedside Commode Bedside Commode Bedside Commode # Voids 2 2 # Bowel Movements 1 - Exam GENERAL: The patient is alert and oriented x3, not in any acute distress. Morbidly obese. HEENT: Pupils are round and equally reacting to light. EOMI. No scleral icterus. No conjunctival pallor. Normocephalic, atraumatic. No pharyngeal erythema. No thyromegaly. CARDIOVASCULAR: S1 and S2 present. No murmurs, rubs, or gallops. PULMONARY: Mild wheezing bilaterally. Decreased breath sounds at the lower lung bases. ABDOMEN: Soft, nontender, nondistended, normoactive bowel sounds. Organomegaly difficult to appreciate due to huge body habitus MUSCULOSKELETAL: No joint swelling or deformity. EXTREMITIES: Patient has bilateral pedal edema up to the ankle. No leg swelling or pain or tenderness NEUROLOGICAL: Gross neurological examination did not reveal any focal deficits. SKIN: No rashes. - Labs CBC & Chem 7: 04/29/18 07:01 04/29/18 07:01 Labs: Microbiology - Last 24 Hours (Table) 04/25/18 14:00 Blood Culture - Preliminary Blood No Growth after 120 hours Assessment and Plan Assessment: ASSESSMENT Acute exacerbation of COPD due to tracheobronchitis UTI secondary to gram-negative organisms Chronic persistent asthma Morbidly obese with BMI of 66 Obesity with possible obesity hypoventilation syndrome and obstructive sleep apnea Recent CTA is negative for pulmonary embolism Recent mechanical fall and chronic back pain and chronic pain syndrome History of CHF with diastolic dysfunction chronic GERD History of GA degenerative joint disease Urinary incontinence chronic Hypothyroidism DVT prophylaxis Plan: Patient to be continued on antibiotics in the form of ceftriaxone. Continue with the prednisone and breathing treatments. Continue with the rest of her current medication regimen. Overall prognosis is guarded. Further recommendations depending on the progress of the patient. PT OT on board.
--- NOTE | 2018-05-01 17:41 | P.PN ---
Subjective Progress Note Date: 04/30/18 (late entry note) Principal diagnosis: Tracheobronchitis, acute COPD exacerbation, chronic persistent asthma, sleep disorder breathing and sleep apnea, severe degree of morbid obesity, sirs-like process related to urinary tract infection, polymicrobial urinary tract infection related to E. coli as well as Proteus April 30, 2018 patient seen eval examined during the rounds clinically patient has been doing slightly better with still feel congested get short of breath on minimal activity and exertion labs reviewed medications reviewed, patient remains on breathing treatments and IV Rocephin along with DVT prophylaxis bronchodilator and oral prednisone tolerating well Renée Krishnan is a 68-year-old female well-known to me for history of chronic persistent asthma and severe COPD she also has a history of sleep disorder breathing and sleep apnea of severe category however has declined the CPAP machine therapeutic trial, other active medical problems significant for a congestive heart failure related to chronic diastolic dysfunction along with severe degree of morbid obesity and compare obesity hypoventilation syndrome, patient presented emergency department with increasing shortness of breath cough congestion in the ER patient underwent a computed tomography scan of his chest which was negative for pulmonary embolism she also has a temperature 100.3 on arrival chest x-ray was essentially unremarkable white cell, mildly elevated along with lactic acid the urine was positive for vitiligo ascites strays suggestive of UTI, on specific questioning patient denies any seizure- like to a loss of consciousness), denies any chest pain or radiation pain Does have generalized body aches and pain denies any other bowel or bladder dysfunction Objective - Vital Signs Vital signs: Vital Signs Temp 97.7 F 05/01/18 12:24 Pulse 88 05/01/18 15:49 Resp 18 05/01/18 12:24 BP 147/79 05/01/18 12:24 Pulse Ox 94 L 05/01/18 12:34 Intake & Output 04/30/18 05/01/18 05/01/18 18:59 06:59 18:59 Intake Total 1200 Output Total 300 450 Balance 900 -450 Weight 163.7 kg 165.5 kg Intake: Intake, IV Titration 50 Amount cefTRIAXone 1,000 mg In 50 Sodium Chloride 0.9% 50 ml @ 100 mls/hr IVPB Q24HR [facility] Rx#:[id number] Oral 1150 Output: Urine 300 450 Other: Voiding Method Bedside Commode Bedside Commode Bedside Commode # Voids 2 2 2 # Bowel Movements 1 0 - Exam Patient is lying in the bed comfortably, no acute distress, awake alert and oriented. Morbid obesity. HEENT: Normocephalic. Neck is supple. Pupils reactive. Nostrils clear. Oral cavity is moist. Ears reveal no drainage. Neck reveals no JVD, carotid bruits, or thyromegaly. CHEST EXAMINATION: Trachea is central. Symmetrical expansion. Bibasilar diminished air entry. Mild expiratory wheeze. Lung bah clear to auscultation and percussion. CARDIAC: Normal S1, S2 with no gallops. No murmurs ABDOMEN: Soft. Bowel sounds normal. No organomegaly. No abdominal bruits. Extremities: reveal no edema. No clubbing or cyanosis Neurologically awake, alert, oriented x3 with well-coordinated movements. No focal deficits noted Skin: No rash or skin lesions. Psychiatric: Coperative. Anxious and emotional. Nonsuicidal Musculoskeletal: No joint swelling or deformity. Normal range of motion. - Labs CBC & Chem 7: 04/29/18 07:01 04/29/18 07:01 Labs: Microbiology - Last 24 Hours (Table) 04/25/18 14:00 Blood Culture - Preliminary Blood No Growth after 120 hours Assessment and Plan Assessment: Polymicrobial urinary tract infection related to E. coli and Proteus, both sensitive to Rocephin Tracheobronchitis Acute COPD exacerbation Chronic persistent asthma Severe morbid obesity Sleep disorder breathing and sleep apnea Possible urinary tract infection and Sirs-like process stated with that Plan: Broad-spectrum antibiotics with IV Rocephin Breathing treatments Oral prednisone Bronchodilators Deep breathing exercise incentive spirometry Increase activity as tolerated Patient continued to refuse CPAP or BiPAP machine as well as sleep apnea evaluation Time with Patient: Greater than 30
[2018-05-01] MEDS: MIRTAZAPINE 15 MG TAB PO SCH (21:12)
[2018-05-01] MEDS: PRAMIPEXOLE 0.25 MG TAB PO SCH (21:12)
[2018-05-01] MEDS: hydrOXYzine PAMOATE 25 MG CAP PO SCH (21:13)
[2018-05-02] MEDS: LORazepam 0.5 MG TAB PO PRN ×2 (03:34→11:45)
[2018-05-02] MEDS: oxyCODONE-APAP 10-325MG 1 EACH TAB PO PRN ×3 (03:34→16:56)
[2018-05-02] MEDS: LEVOTHYROXINE 100 MCG TAB PO SCH (06:16)
[2018-05-02] MEDS: IPRATROPIUM-ALBUTEROL 3 ML NEB INHALATION SCH ×4 (07:15→19:42)
[2018-05-02 07:18] LABS: Basophils % (A) 0 %; Eosinophils # (A) 0.2 k/uL (0-0.7); Eosinophils % (A) 1 %; HCT 34.7 % (34.0-46.0); HGB 10.6 gm/dL (11.4-16.0); Hypochromasia Moderate; Lymphocytes # (A) 2.1 k/uL (1.0-4.8); Lymphocytes % (A) 17 %; MCH 26.3 pg (25.0-35.0); MCHC 30.5 g/dL (31.0-37.0); MCV 86.1 fL (80.0-100.0); Mean Platelet Volume 6.2; Monocytes # (A) 0.5 k/uL (0-1.0); Monocytes % (A) 4 %; Neutrophils # (A) 9.5 k/uL (1.3-7.7); Neutrophils % (A) 76 %; Platelet Count 280 k/uL (150-450); RBC 4.03 m/uL (3.80-5.40); RDW 14.7 % (11.5-15.5); WBC 12.5 k/uL (3.8-10.6)
[2018-05-02 07:28] LABS: Anion Gap 7 mmol/L; Blood Urea Nitrogen 20 mg/dL (7-17); Calcium 8.7 mg/dL (8.4-10.2); Carbon Dioxide 29 mmol/L (22-30); Chloride 104 mmol/L (98-107); Glucose 94 mg/dL (74-99); Potassium 4.9 mmol/L (3.5-5.1); Sodium 140 mmol/L (137-145)
[2018-05-02] MEDS: PANTOPRAZOLE 40 MG TABLET PO SCH (10:12)
[2018-05-02] MEDS: HEPARIN SODIUM,PORCINE 5,000 UNIT/ML 1 ML VIAL SQ SCH ×2 (10:12→16:56)
[2018-05-02] MEDS: predniSONE 10 MG TAB PO SCH (10:13)
[2018-05-02] MEDS: PREGABALIN 50 MG CAP PO SCH ×3 (10:13→21:52)
[2018-05-02] MEDS ORDERED: oxyCODONE-APAP 10-325MG 1 EACH TAB PO ONE (13:58)
--- NOTE | 2018-05-02 16:55 | P.PN ---
Subjective Progress Note Date: 05/02/18 Principal diagnosis: Tracheobronchitis, UTI Mrs. Krishnan is a 68-year-old female with a past medical history of KS, osteoarthritis, CK 80, thyroid disorder coming into the hospital with a chief complaint of increasing shortness of breath and also a fever of 100.3. Patient had a computed tomography scan of the chest was that was negative for PE and has been admitted for further workup. Is currently on antibiotics for her COPD exacerbation which is secondary to acute tracheobronchitis. Patient's urine culture is positive for E. coli and Proteus mirabilis for which she is on ceftriaxone. Today the patient is lying in the bed appears to be in no acute distress. As soon as I walk into the room patient complains of pain that is 10 out of 10, even though she has been resting comfortably in the bed. Patient does have a history of pain seeking behavior. On review of systems: Patient complains of increased shortness of breath when she goes to use the restroom. She states that it is her baseline. She denies having any chest pain or palpitations. No abdominal pain nausea vomiting or diarrhea. No dysuria or hematuria. Patient has history of chronic low back pain that has been stable. Objective - Vital Signs Vital signs: Vital Signs Temp 98.2 F 05/02/18 12:21 Pulse 82 05/02/18 12:21 Resp 20 05/02/18 12:21 BP 148/83 05/02/18 12:21 Pulse Ox 97 05/02/18 12:21 Intake & Output 05/01/18 05/02/18 05/02/18 18:59 06:59 18:59 Intake Total 1550 Balance 1550 Weight 165.5 kg Intake: Oral 1550 Other: Voiding Method Bedside Commode Bedside Commode Bedside Commode # Voids 2 1 1 # Bowel Movements 0 1 0 - Exam GENERAL: The patient is alert and oriented x3, not in any acute distress. Morbidly obese, comfortable in the bed HEENT: Pupils are round and equally reacting to light. EOMI. No scleral icterus. No conjunctival pallor. Normocephalic, atraumatic. No pharyngeal erythema. No thyromegaly. CARDIOVASCULAR: S1 and S2 present. No murmurs, rubs, or gallops. PULMONARY: Mild wheezing bilaterally. Decreased breath sounds at the lower lung bases. ABDOMEN: Soft, nontender, nondistended, normoactive bowel sounds. Organomegaly difficult to appreciate due to huge body habitus MUSCULOSKELETAL: No joint swelling or deformity. EXTREMITIES: Patient has bilateral pedal edema up to the ankle. No leg swelling or pain or tenderness NEUROLOGICAL: Gross neurological examination did not reveal any focal deficits. SKIN: No rashes. - Labs CBC & Chem 7: 05/02/18 06:45 05/02/18 06:45 Labs: Abnormal Lab Results - Last 24 Hours (Table) 05/02/18 05/02/18 Range/Units 06:45 06:45 WBC 12.5 H (3.8-10.6) k/uL Hgb 10.6 L (11.4-16.0) gm/dL MCHC 30.5 L (31.0-37.0) g/dL Neutrophils # 9.5 H (1.3-7.7) k/uL BUN 20 H (7-17) mg/dL Microbiology - Last 24 Hours (Table) 04/25/18 14:00 Blood Culture - Final Blood No Growth after 144 hours Assessment and Plan Assessment: ASSESSMENT Acute exacerbation of COPD due to tracheobronchitis UTI secondary to gram-negative organisms Chronic persistent asthma Morbidly obese with BMI of 66 Obesity with possible obesity hypoventilation syndrome and obstructive sleep apnea Recent CTA is negative for pulmonary embolism Recent mechanical fall and chronic back pain and chronic pain syndrome History of CHF with diastolic dysfunction chronic GERD History of KS degenerative joint disease Urinary incontinence chronic Hypothyroidism DVT prophylaxis Plan: Patient to be continued on antibiotics in the form of ceftriaxone. Continue with the prednisone and breathing treatments. Continue with the rest of her current medication regimen. Overall prognosis is guarded. Further recommendations depending on the progress of the patient. PT OT on board.
[2018-05-02] MEDS: MIRTAZAPINE 15 MG TAB PO SCH (21:48)
[2018-05-02] MEDS: PRAMIPEXOLE 0.25 MG TAB PO SCH (21:48)
[2018-05-02] MEDS: hydrOXYzine PAMOATE 25 MG CAP PO SCH (21:48)
[2018-05-03] MEDS: LORazepam 0.5 MG TAB PO PRN ×4 (00:21→23:51)
[2018-05-03] MEDS: oxyCODONE-APAP 10-325MG 1 EACH TAB PO PRN ×5 (00:21→23:51)
[2018-05-03] MEDS: HEPARIN SODIUM,PORCINE 5,000 UNIT/ML 1 ML VIAL SQ SCH ×4 (00:21→23:52)
[2018-05-03] MEDS: LEVOTHYROXINE 100 MCG TAB PO SCH (06:11)
[2018-05-03] MEDS: IPRATROPIUM-ALBUTEROL 3 ML NEB INHALATION SCH ×4 (07:21→19:17)
[2018-05-03] MEDS: predniSONE 10 MG TAB PO SCH (08:31)
[2018-05-03] MEDS: PANTOPRAZOLE 40 MG TABLET PO SCH (08:31)
[2018-05-03] MEDS: PREGABALIN 50 MG CAP PO SCH ×3 (08:43→21:41)
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
[2018-05-03 09:53] LABS: Basophils % (A) 0 %; Eosinophils # (A) 0.2 k/uL (0-0.7); Eosinophils % (A) 1 %; HCT 34.6 % (34.0-46.0); HGB 10.7 gm/dL (11.4-16.0); Hypochromasia Slight; Lymphocytes # (A) 2.1 k/uL (1.0-4.8); Lymphocytes % (A) 18 %; MCH 26.3 pg (25.0-35.0); MCV 84.9 fL (80.0-100.0); Mean Platelet Volume 6.7; Monocytes # (A) 0.6 k/uL (0-1.0); Monocytes % (A) 5 %; Neutrophils % (A) 75 %; Platelet Count 269 k/uL (150-450); RBC 4.07 m/uL (3.80-5.40); RDW 14.5 % (11.5-15.5)
--- NOTE | 2018-05-03 18:16 | PN ---
PROGRESS NOTE DATE OF SERVICE: 05/02/2018. HISTORY: Ms. Renée Krishnan is seen, evaluated and examined during rounds. Her cough congestion and shortness of breath are slightly improved. She remains on broad-spectrum antibiotics for polymicrobial urinary tract infection. Her labs are reviewed. Medications reviewed. Patient is being monitored off of IV steroids. She is currently being switched to oral prednisone. EXAMINATION: Her vitals include blood pressure is 104/60, respirations 16, pulse 81, temperature 98, saturation of 96% on room air. HEENT atraumatic, normocephalic. Pharynx is clear, narrow pharyngeal opening is present. Neck is supple without lymphadenopathy, jugular venous distention or bruit. Lungs, bilateral good air entry is present without significant rales, rhonchi or rub. Heart, regular rate and rhythm. S1, S2 audible. Abdomen is soft. No rebound. Extremities +1 pedal pulses. Neurological examination, otherwise awake and alert. IMPRESSION: 1. Polymicrobial urinary tract infection associated with Proteus and E coli. The patient has been on IV Rocephin, tolerating well. 2. Acute chronic obstructive pulmonary disease exacerbation, on bronchodilator, IV steroids are being switched to oral, and on breathing treatments, tolerating well. 3. Severe morbid obesity. 4. Sleep-disordered breathing and sleep apnea. The patient has refused CPAP machine. We will follow clinical course closely. Further recommendations pending date. MMODL / IJN: [id number] /
--- NOTE | 2018-05-03 18:22 | PN ---
PROGRESS NOTE DATE OF SERVICE: 05/03/18 Ms. Renée Krishnan is seen, evaluated and examined. She is somewhat upset as she lost control of her urine and she is being cleaned up. From respiratory standpoint, she is doing relatively better. She has been switched from IV steroids to oral prednisone, breathing comfortably. Labs reviewed. MEDICATIONS: Reviewed. Her blood pressure is 131/62, respiratory rate 14, pulse 80, temp is 98, saturation 96% on 2 L oxygen. PHYSICAL EXAMINATION: Otherwise not much change from baseline. HEENT unremarkable. NECK: Supple. Lungs: Good air entry bilaterally. HEART: Regular rate and rhythm. ABDOMEN: Soft. Neurological exam is otherwise awake, and alert. CT scan of the chest and other laboratory data has been reviewed. IMPRESSION: 1. Chronic persistent asthma. Overall stable. 2. Chronic obstructive pulmonary disease. Overall stable. 3. Polymicrobial urinary tract infection on IV Rocephin, which can be switched to oral. 4. Severe morbid obesity and sleep-disordered breathing. Sleep apnea. Patient has declined and refused CPAP machine. Will follow. Agree with discharge planning. MMODL / IJN: [id number] /
[2018-05-03] MEDS: hydrOXYzine PAMOATE 25 MG CAP PO SCH (21:41)
[2018-05-03] MEDS: PRAMIPEXOLE 0.25 MG TAB PO SCH (21:41)
[2018-05-03] MEDS: MIRTAZAPINE 15 MG TAB PO SCH (21:42)
[2018-05-04] MEDS: LEVOTHYROXINE 100 MCG TAB PO SCH (05:57)
[2018-05-04] MEDS: oxyCODONE-APAP 10-325MG 1 EACH TAB PO PRN ×2 (05:57→12:43)
[2018-05-04] MEDS: PANTOPRAZOLE 40 MG TABLET PO SCH (08:24)
[2018-05-04] MEDS: HEPARIN SODIUM,PORCINE 5,000 UNIT/ML 1 ML VIAL SQ SCH (08:24)
[2018-05-04] MEDS: PREGABALIN 50 MG CAP PO SCH (08:25)
[2018-05-04] MEDS: predniSONE 10 MG TAB PO SCH (08:25)
[2018-05-04] MEDS: LORazepam 0.5 MG TAB PO PRN (08:27)
[2018-05-04] MEDS: IPRATROPIUM-ALBUTEROL 3 ML NEB INHALATION SCH ×2 (08:29→11:45)
[2018-05-04 09:07] LABS: HCT 36.6 % (34.0-46.0); HGB 11.4 gm/dL (11.4-16.0); Hypochromasia Slight; MCH 26.7 pg (25.0-35.0); MCHC 31.1 g/dL (31.0-37.0); MCV 85.9 fL (80.0-100.0); Mean Platelet Volume 6.6; Platelet Count 299 k/uL (150-450); RBC 4.26 m/uL (3.80-5.40); RDW 14.7 % (11.5-15.5); WBC 13.6 k/uL (3.8-10.6)
--- NOTE | 2018-05-04 10:13 | P.PN ---
Subjective Progress Note Date: 05/04/18 Principal diagnosis: Tracheobronchitis, acute COPD exacerbation, chronic persistent asthma, sleep disorder breathing and sleep apnea, severe degree of morbid obesity, sirs-like process related to urinary tract infection, polymicrobial urinary tract infection related to E. coli as well as Proteus 05/04/2018, patient seen eval reexamined during the rounds she is more composed less anxious and agitated breathing more comfortably she has significant symptoms and dyspnea on exertion however oxygen saturation remains stable she denies any shortness of breath cough or sputum production addressed patient is being planned for possible discharge later on today mom a care plan discussed with the primary service as well as patient at length April 30, 2018 patient seen eval examined during the rounds clinically patient has been doing slightly better with still feel congested get short of breath on minimal activity and exertion labs reviewed medications reviewed, patient remains on breathing treatments and IV Rocephin along with DVT prophylaxis bronchodilator and oral prednisone tolerating well Renée Krishnan is a 68-year-old female well-known to me for history of chronic persistent asthma and severe COPD she also has a history of sleep disorder breathing and sleep apnea of severe category however has declined the CPAP machine therapeutic trial, other active medical problems significant for a congestive heart failure related to chronic diastolic dysfunction along with severe degree of morbid obesity and compare obesity hypoventilation syndrome, patient presented emergency department with increasing shortness of breath cough congestion in the ER patient underwent a computed tomography scan of his chest which was negative for pulmonary embolism she also has a temperature 100.3 on arrival chest x-ray was essentially unremarkable white cell, mildly elevated along with lactic acid the urine was positive for vitiligo ascites strays suggestive of UTI, on specific questioning patient denies any seizure- like to a loss of consciousness), denies any chest pain or radiation pain Does have generalized body aches and pain denies any other bowel or bladder dysfunction Objective - Vital Signs Vital signs: Vital Signs Temp 98.3 F 05/04/18 07:15 Pulse 76 05/04/18 08:45 Resp 22 05/04/18 07:15 BP 106/60 05/04/18 07:15 Pulse Ox 97 05/04/18 07:15 Intake & Output 05/03/18 05/04/18 05/04/18 18:59 06:59 18:59 Intake Total 1330 1800 Output Total 450 Balance 880 1800 Weight 165.5 kg 161 kg Intake: Intake, IV Titration 50 Amount cefTRIAXone 1,000 mg In 50 Sodium Chloride 0.9% 50 ml @ 100 mls/hr IVPB Q24HR REPLACED BY [facility] Rx#:[id number] Oral 1280 1800 Output: Urine 450 Other: Voiding Method Bedside Commode Bedside Commode # Voids 3 1 # Bowel Movements 0 - Exam Patient is lying in the bed comfortably, no acute distress, awake alert and oriented. Morbid obesity. HEENT: Normocephalic. Neck is supple. Pupils reactive. Nostrils clear. Oral cavity is moist. Ears reveal no drainage. Neck reveals no JVD, carotid bruits, or thyromegaly. CHEST EXAMINATION: Trachea is central. Symmetrical expansion. Bibasilar diminished air entry. No more expiratory wheeze noted during current exam. Lung abh clear to auscultation and percussion. CARDIAC: Normal S1, S2 with no gallops. No murmurs ABDOMEN: Soft. Bowel sounds normal. No organomegaly. No abdominal bruits. Extremities: reveal no edema. No clubbing or cyanosis Neurologically awake, alert, oriented x3 with well-coordinated movements. No focal deficits noted Skin: No rash or skin lesions. Psychiatric: Coperative. Anxious and emotional. Nonsuicidal Musculoskeletal: No joint swelling or deformity. Normal range of motion. - Labs CBC & Chem 7: 05/04/18 07:36 05/02/18 06:45 Labs: Abnormal Lab Results - Last 24 Hours (Table) 05/04/18 Range/Units 07:36 WBC 13.6 H (3.8-10.6) k/uL Assessment and Plan Assessment: Polymicrobial urinary tract infection related to E. coli and Proteus, both sensitive to Rocephin Tracheobronchitis Acute COPD exacerbation Chronic persistent asthma Severe morbid obesity Sleep disorder breathing and sleep apnea Possible urinary tract infection and Sirs-like process stated with that Plan: Broad-spectrum antibiotics can be switched to oral Breathing treatments Oral prednisone Bronchodilators Deep breathing exercise incentive spirometry Increase activity as tolerated Patient continued to refuse CPAP or BiPAP machine as well as sleep apnea evaluation Agree with discharge planning and follow-up as needed Time with Patient: Greater than 30
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
[2018-05-04 11:42] VITALS: BMI 64.9
[2018-05-04 12:19] VITALS: BP 130/62; PULSE 79; RESP 18; TEMP 98
== END 2018-05-04 13:05 | disposition home health service (06) | DRG 871 ==
LOC: EC 14:02 → 5MS5E 15:54 → OBSVTOIN 16:36 → INTOOBSV 16:36 → 5MS5E 16:49 → OBSVTOIN 04-27 16:56
PROVIDERS: ADMIT Internal Medicine; ATTEND Internal Medicine
DX: A41.9 Sepsis, unspecified organism (principal); J18.9 Pneumonia, unspecified organism; I50.32 Chronic diastolic (congestive) heart failure; J44.0 Chronic obstructive pulmonary disease with (acute) lower respiratory infection; J44.1 Chronic obstructive pulmonary disease with (acute) exacerbation; N39.0 Urinary tract infection, site not specified; R18.8 Other ascites; Z68.44 Body mass index [BMI] 60.0-69.9, adult; B96.20 Unspecified Escherichia coli [E. coli] as the cause of diseases classified elsewhere; E03.9 Hypothyroidism, unspecified; E66.01 Morbid (severe) obesity due to excess calories; F32.9 Major depressive disorder, single episode, unspecified; F41.9 Anxiety disorder, unspecified; G47.33 Obstructive sleep apnea (adult) (pediatric); G89.4 Chronic pain syndrome; I25.10 Atherosclerotic heart disease of native coronary artery without angina pectoris; I25.2 Old myocardial infarction; I34.1 Nonrheumatic mitral (valve) prolapse; J20.9 Acute bronchitis, unspecified; K21.9 Gastro-esophageal reflux disease without esophagitis; K58.9 Irritable bowel syndrome, unspecified; L80 Vitiligo; M13.0 Polyarthritis, unspecified; R32 Unspecified urinary incontinence; T38.0X5A Adverse effect of glucocorticoids and synthetic analogues, initial encounter; Z79.899 Other long term (current) drug therapy; Z80.1 Family history of malignant neoplasm of trachea, bronchus and lung; Z82.49 Family history of ischemic heart disease and other diseases of the circulatory system; Z85.42 Personal history of malignant neoplasm of other parts of uterus; Z87.19 Personal history of other diseases of the digestive system; Z87.442 Personal history of urinary calculi; Z90.710 Acquired absence of both cervix and uterus; Z91.81 History of falling; Z96.651 Presence of right artificial knee joint; Z79.890 Hormone replacement therapy; Z79.891 Long term (current) use of opiate analgesic; Z79.52 Long term (current) use of systemic steroids; Z88.8 Allergy status to other drugs, medicaments and biological substances; Z88.6 Allergy status to analgesic agent; Z91.041 Radiographic dye allergy status
CPT/HCPCS: 36415; 71046; 71250; 80048; 80053; 81001; 82550; 82553; 83605; 83735; 83880; 84132; 84484; 85025; 85027; 85610; 85730; 87040; 87077; 87086; 87186; 93005; 93970; 94640; 94760; 96365; 96375; 99285

== ENCOUNTER 2018-05-17 18:00 | Inpatient (IN) | payer MEDICARE, OTHER ==
[2018-05-17] MEDS ORDERED: methylPREDNISolone SOD SUCCI 125 MG/2 ML VIAL IV STA (18:27)
[2018-05-17] MEDS ORDERED: FUROSEMIDE 10 MG/ML 4 ML VIAL IV STA (18:27)
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
[2018-05-17 19:44] LABS: Basophils % (A) 0 %; Eosinophils # (A) 0.3 k/uL (0-0.7); Eosinophils % (A) 4 %; HCT 31.7 % (34.0-46.0); HGB 10.7 gm/dL (11.4-16.0); Lymphocytes # (A) 1.3 k/uL (1.0-4.8); Lymphocytes % (A) 18 %; MCH 26.7 pg (25.0-35.0); MCHC 33.8 g/dL (31.0-37.0); Mean Platelet Volume 6.8; Monocytes # (A) 0.4 k/uL (0-1.0); Monocytes % (A) 5 %; Neutrophils # (A) 4.8 k/uL (1.3-7.7); Neutrophils % (A) 71 %; Platelet Count 313 k/uL (150-450); RBC 4.02 m/uL (3.80-5.40); RDW 14.2 % (11.5-15.5); WBC 6.8 k/uL (3.8-10.6)
[2018-05-17] MEDS ORDERED: HYDROmorphone 1 MG/ML 1 ML SYRINGE IVP STA ×2 (19:53→22:23)
[2018-05-17] MEDS ORDERED: ONDANSETRON 4 MG/2 ML VIAL IVP STA (19:53)
[2018-05-17 20:03] LABS: ALT 20 U/L (9-52); AST 18 U/L (14-36); Albumin 3.3 g/dL (3.5-5.0); Alkaline Phosphatase 84 U/L (38-126); Anion Gap 7 mmol/L; Blood Urea Nitrogen 11 mg/dL (7-17); Calcium 8.8 mg/dL (8.4-10.2); Carbon Dioxide 28 mmol/L (22-30); Chloride 107 mmol/L (98-107); Glucose 124 mg/dL (74-99); Magnesium 1.6 mg/dL (1.6-2.3); Potassium 3.8 mmol/L (3.5-5.1); Sodium 142 mmol/L (137-145); Total Bilirubin 0.4 mg/dL (0.2-1.3); Total Protein 5.9 g/dL (6.3-8.2)
[2018-05-17 20:06] LABS: Creatine Kinase 43 U/L (30-135)
[2018-05-17 20:19] LABS: Creatine Kinase MB 0.8 ng/mL (0.0-2.4); Troponin I <0.012 ng/mL (0.000-0.034)
--- NOTE | 2018-05-17 20:27 | XR ---
EXAMINATION: XR chest 2V DATE AND TIME: 05/17/2018 8:00 PM CLINICAL INDICATION: difficulty breathing TECHNIQUE: PA and lateral COMPARISON: 04/25/2018 FINDINGS: The overlying soft tissues are prominent. Given this factor, the lungs appear to be clear - as can be seen. The pleural spaces appear to be negative. The cardiac silhouette is not enlarged; thoracic aortic ectasia redemonstrated. The skeletal structures and soft tissues are negative for acute findings. IMPRESSION: 1. NO DEFINITE ACUTE PROCESS SEEN. 2. THORACIC AORTIC ECTASIA.
[2018-05-17 20:53] LABS: Prothrombin Time 9.7 sec (9.0-12.0)
[2018-05-18] MEDS: methylPREDNISolone SOD SUCCI 125 MG/2 ML VIAL IV SCH ×4 (00:14→16:56)
[2018-05-18] MEDS ORDERED: HYDROcodone/APAP 10-325MG 1 EACH TAB PO ONE (00:30)
[2018-05-18] MEDS ORDERED: PRAMIPEXOLE 0.25 MG TAB PO STA (00:31)
[2018-05-18] MEDS ORDERED: PREGABALIN 50 MG CAP PO STA (00:31)
[2018-05-18] MEDS: IPRATROPIUM-ALBUTEROL 3 ML NEB INHALATION SCH ×5 (01:03→21:30)
[2018-05-18 01:41] VITALS: BMI 56.9
[2018-05-18] MEDS: LEVOTHYROXINE 100 MCG TAB PO SCH (05:12)
[2018-05-18] MEDS: HYDROmorphone 1 MG/ML 1 ML SYRINGE IVP PRN (05:13)
[2018-05-18] MEDS: HYDROcodone/APAP 10-325MG 1 EACH TAB PO SCH ×4 (08:06→21:32)
[2018-05-18] MEDS: FUROSEMIDE 40 MG TAB PO SCH (08:06)
[2018-05-18] MEDS: PANTOPRAZOLE 40 MG TABLET PO SCH ×2 (08:06→16:55)
[2018-05-18] MEDS: PREGABALIN 50 MG CAP PO SCH ×3 (08:06→21:32)
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
[2018-05-18] MEDS: PRAMIPEXOLE 0.25 MG TAB PO SCH (21:32)
[2018-05-18] MEDS: LORazepam 0.5 MG TAB PO PRN (21:38)
[2018-05-19] MEDS: IPRATROPIUM-ALBUTEROL 3 ML NEB INHALATION SCH ×6 (00:15→21:42)
[2018-05-19] MEDS: guaiFENesin 600 MG TABLET.ER PO PRN (00:43)
[2018-05-19] MEDS: methylPREDNISolone SOD SUCCI 125 MG/2 ML VIAL IV SCH ×4 (00:43→17:21)
[2018-05-19] MEDS: HYDROmorphone 1 MG/ML 1 ML SYRINGE IVP PRN ×4 (04:35→19:44)
[2018-05-19] MEDS: LEVOTHYROXINE 100 MCG TAB PO SCH (06:13)
[2018-05-19] MEDS: PREGABALIN 50 MG CAP PO SCH ×3 (07:22→21:46)
[2018-05-19] MEDS: FUROSEMIDE 40 MG TAB PO SCH (07:22)
[2018-05-19] MEDS: HYDROcodone/APAP 10-325MG 1 EACH TAB PO SCH ×4 (07:22→23:49)
[2018-05-19] MEDS: PANTOPRAZOLE 40 MG TABLET PO SCH ×2 (07:22→17:21)
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
--- NOTE | 2018-05-19 19:54 | P.PN ---
Subjective Progress Note Date: 05/19/18 Principal diagnosis: Chronic persistent severe asthma, GERD, severe morbid obesity, obstructive sleep apnea, hypertension hypertensive cardiovascular disease, history of GI bleed, 05/19/2018, patient seen eval reexamined during the rounds breathing has been a stable status intermittent shortness of breath and dry nonproductive cough overall respiratory status is stable, patient is being evaluated for possible endoscopy for Scales's esophagus by GI services patient remains on 3 L oxygen saturation has been a stable into mid 90s overall if needed her eyes may proceed with endoscopy however patient remains at [id number] risk of respiratory failure during procedure given her morbid obesity sleep apnea This patient is a 68-year-old female who is a morbidly obese with severe degree of sleep disorder breathing and sleep apnea patient has declined STACI evaluation and CPAP machine she is been having issues associated with cough and shortness of breath came into the hospital also had some loose stool but has resolved now she has chronic edema of the lower extremity she has been on Lasix seems to be helping Objective - Vital Signs Vital signs: Vital Signs Temp 98.1 F 05/19/18 16:25 Pulse 84 05/19/18 16:46 Resp 16 05/19/18 18:48 BP 146/83 05/19/18 16:25 Pulse Ox 98 05/19/18 16:25 Intake & Output 05/19/18 05/19/18 05/20/18 06:59 18:59 06:59 Intake Total 1400 240 Output Total 200 Balance 1400 40 Weight 162.704 kg Intake: Oral 1400 240 Output: Gastric Drainage 200 Other: Voiding Method Bedside Commode # Voids 3 4 - Exam General appearance: alert, anxious Head exam: Present: atraumatic, normocephalic, normal inspection Eye exam: Present: normal appearance, PERRL, EOMI. Absent: scleral icterus, conjunctival injection, periorbital swelling ENT exam: Present: normal exam, mucous membranes moist Neck exam: Present: normal inspection. Absent: tenderness, meningismus, lymphadenopathy Respiratory exam: Present: decreased breath sounds, other (Decreased breath sounds especially on the left at this time no definite wheezing she did receive a nebulizer in route by EMS). Absent: respiratory distress, wheezes, rales, rhonchi, stridor Cardiovascular Exam: Present: regular rate, normal rhythm, normal heart sounds. Absent: systolic murmur, diastolic murmur, rubs, gallop, clicks GI/Abdominal exam: Present: soft, normal bowel sounds. Absent: distended, tenderness, guarding, rebound, rigid Extremities exam: Present: full ROM, normal capillary refill, pedal edema. Absent: tenderness, joint swelling, calf tenderness Back exam: Present: normal inspection Neurological exam: Present: alert, oriented X3, CN II-XII intact Psychiatric exam: Present: normal affect, normal mood Skin exam: Present: warm, dry, intact, normal color. Absent: rash - Labs CBC & Chem 7: 05/17/18 19:25 05/17/18 19:25 Assessment and Plan Assessment: Chronic persistent asthma Baseline COPD Sleep disorder breathing and sleep apnea Congestive heart failure chronic diastolic heart failure History of GERD Plan: Continue breathing treatment Steroids can be switched to oral Patient can be discharged home from pulmonary standpoint pending GI workup May proceed with endoscopy however creatinine post procedure needs to be monitor observe closely given presence of sleep disorder breathing and sleep apnea and chronic asthma Time with Patient: Greater than 30
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
--- NOTE | 2018-05-19 21:45 | P.PN ---
Subjective Progress Note Date: 05/19/18 Principal diagnosis: Acute COPD exacerbation Dysphagia Patient is a 68-year-old female with known history of COPD, CHF with diastolic dysfunction, morbid obesity and obesity hypoventilation syndrome, chronic pain and pain syndrome and chronic back pain and history of recent fall and multiple other medical problems and frequent previous admissions came to ER with complaints of shortness of breath came to ER with complaints of shortness of breath last night which is progressively getting worse and not responding to her breathing treatments at home. No complaints of fever or chills. Does have cough without sputum production. No complaints of chest pain. No headache or dizziness or lightheadedness. Patient is also complaining of choking-like feeling with solid foods and is also complaining of dysphagia. Patient says that she has a history of Scales's esophagitis during previous EGD. She also feels like she is getting fluid overloaded. Patient says that she's trying to lose weight by controlling her diet. Patient was recently discharged from hospital and was treated for E. coli and Proteus urinary tract infection. Chest x-ray showed no acute process. Thoracic aortic ectasia is seen. EKG showed normal sinus rhythm. 05/19/2018 Patient denied any complaints of chest pain or worsening shortness of breath. Patient is still complaining of pain. Also complains of dysphagia. Patient was seen by GI and recommended endoscopy tomorrow. IV steroids will be changed to by mouth. No fever no chills. No chest pain. No nausea vomiting or abdominal pain. All other review of systems negative except the above. Current medications reviewed. Objective - Vital Signs Vital signs: Vital Signs Temp 98.1 F 05/19/18 16:25 Pulse 84 05/19/18 16:46 Resp 16 05/19/18 18:48 BP 146/83 05/19/18 16:25 Pulse Ox 98 05/19/18 16:25 Intake & Output 05/19/18 05/19/18 05/20/18 06:59 18:59 06:59 Intake Total 1400 240 Output Total 200 Balance 1400 40 Weight 162.704 kg Intake: Oral 1400 240 Output: Gastric Drainage 200 Other: Voiding Method Bedside Commode # Voids 3 4 - Exam PHYSICAL EXAMINATION: Patient is lying in the bed comfortably, no acute distress, awake alert and oriented. Morbid obesity. HEENT: Normocephalic. Neck is supple. Pupils reactive. Nostrils clear. Oral cavity is moist. Ears reveal no drainage. Neck reveals no JVD, carotid bruits, or thyromegaly. CHEST EXAMINATION: Trachea is central. Symmetrical expansion. Bibasilar diminished air entry. Prolonged expiration. Lung bah clear to auscultation and percussion. CARDIAC: Normal S1, S2 with no gallops. No murmurs ABDOMEN: Soft. Bowel sounds normal. No organomegaly. No abdominal bruits. Extremities: reveal no edema. No clubbing or cyanosis Neurologically awake, alert, oriented x3 with well-coordinated movements. No focal deficits noted Skin: No rash or skin lesions. Psychiatric: Coperative. Anxious and emotional. Nonsuicidal Musculoskeletal: No joint swelling or deformity. Normal range of motion. - Labs CBC & Chem 7: 05/17/18 19:25 05/17/18 19:25 Assessment and Plan Assessment: Chronic persistent asthma. Improving clinically. Shortness breath secondary to acute COPD exacerbation Dysphagia with history of Scales's esophagitis Obesity with possible obesity hypoventilation syndrome and obstructive sleep apnea Recent urinary tract infection Recent CTA is negative for pulmonary embolism Recent mechanical fall and chronic back pain and chronic pain syndrome History of CHF with diastolic dysfunction chronic GERD History of [place] degenerative joint disease Urinary incontinence chronic Hypothyroidism Morbid obesity BMI 67 DVT prophylaxis with heparin subcu Plan: Patient will be continued on DuoNeb's and IV steroids. IV steroids can be changed prednisone by mouth. Pulmonary is following. GI is planning for endoscopy tomorrow. Nothing by mouth after midnight.. We will continue the pain management and follow up closely. Further recommendations based on the clinical course. Prognosis is guarded with multiple medical problems and comorbid conditions. Time with Patient: Greater than 30
[2018-05-19] MEDS: PRAMIPEXOLE 0.25 MG TAB PO SCH (21:46)
[2018-05-19] MEDS ORDERED: IPRATROPIUM-ALBUTEROL 3 ML NEB INHALATION PRN (21:49)
[2018-05-19] MEDS: LORazepam 0.5 MG TAB PO PRN (22:00)
[2018-05-19] MEDS: HEPARIN SODIUM,PORCINE 5,000 UNIT/ML 1 ML VIAL SQ SCH (23:52)
[2018-05-20] MEDS: HYDROmorphone 1 MG/ML 1 ML SYRINGE IVP PRN ×5 (02:24→20:24)
[2018-05-20] MEDS: HYDROcodone/APAP 10-325MG 1 EACH TAB PO SCH ×3 (05:36→17:22)
[2018-05-20] MEDS: LEVOTHYROXINE 100 MCG TAB PO SCH (05:36)
[2018-05-20] MEDS: HEPARIN SODIUM,PORCINE 5,000 UNIT/ML 1 ML VIAL SQ SCH ×2 (07:59→15:30)
[2018-05-20] MEDS: FUROSEMIDE 40 MG TAB PO SCH (08:00)
[2018-05-20] MEDS: predniSONE 20 MG TAB PO SCH (08:00)
[2018-05-20] MEDS: PANTOPRAZOLE 40 MG TABLET PO SCH ×2 (08:00→17:22)
[2018-05-20] MEDS: PREGABALIN 50 MG CAP PO SCH ×3 (08:00→22:15)
[2018-05-20] MEDS: IPRATROPIUM-ALBUTEROL 3 ML NEB INHALATION SCH ×4 (09:07→19:49)
[2018-05-20] MEDS ORDERED: LIDOCAINE 1% INJ 10MG/ML (20 ML MDV) ONE (12:39)
[2018-05-20] MEDS ORDERED: PROPOFOL 10 MG/ML 20 ML VIAL IV ONE (12:39)
[2018-05-20] MEDS ORDERED: SODIUM CHLORIDE 0.9% 500 ML 500 ML IV ONE (12:48)
--- NOTE | 2018-05-20 13:23 | P.PCN ---
Date of Procedure: 05/20/18 Procedure(s) Performed: Procedure: Esophagogastroduodenoscopy. Preoperative diagnosis: Dysphagia. Postoperative diagnosis: 1. Small sliding hiatal hernia with no obvious esophagitis or complicated reflux disease. 2. Normal stomach and then duodenum. Preparation and sedation: Was provided by anesthesia. Brief clinical history: The patient is a 68-year-old female with a history of COPD, IBS, GERD, hiatal hernia, morbid obesity BMI 65, sleep apnea, Scales's esophagus and shortness of breath. Consultation requested for dysphagia. Patient states over the last week or so she's had feelings of food being stuck in the mid to distal esophagus. No emesis. Denies hematemesis hematochezia or melena. Presently she is requiring O2 via nasal cannula 3 L oxygen saturation around 95%. EGD January 2017 for evaluation of epigastric pain identified mild antral gastritis small hiatal hernia no evidence of esophageal strictures or Scales's. EGD June 2016 findings of small sliding hiatal hernia Scales's esophagus no evidence of esophagitis or strictures. Most current laboratory studies white count 6.8. Hemoglobin 10.7. Platelets 313. INR 1.0. I will details are summarized in the history and physical and dictated consultation notes. Procedure: With the patient on her left lateral decubitus position and after informed consent and adequate sedation, I passed the Olympus-GIF 160 video upper endoscope through the cricopharyngeus down the esophagus. GE junction was irregular at around 40 cm from the incisors and there was no definite Scales's esophagus on this exam today. There was a small sliding hiatal hernia. No evidence of esophagitis or strictures. No abnormalities in the esophagus to account for her symptoms. The endoscope was then passed into the stomach which was insufflated with air and inspected in detail including the retroflex view in the cardia. No abnormalities were noted. Pyloric channel, duodenal bulb, post bulbar area and descending duodenum appeared within normal limits. The patient tolerated the procedure well. Plan: The patient was reassured. Will allow regular diet. Further plans based on her course. Consideration would be given for a motility study if her symptoms persist and especially if there is nutritional compromise.
--- NOTE | 2018-05-20 15:36 | P.PN ---
Subjective Progress Note Date: 05/20/18 Principal diagnosis: Chronic persistent severe asthma, GERD, severe morbid obesity, obstructive sleep apnea, hypertension hypertensive cardiovascular disease, history of GI bleed, 05/20/2018, patient seen quentin examined during the rounds clinically has been doing well shortness of breath and cough is present but overall stable care plan discussed with the GI service patient is for endoscopy by Dr. Amaral overall from respiratory standpoint she is doing better after endoscopy she can be monitored and observed and eventually can be discharged tomorrow 05/19/2018, patient seen quentin reexamined during the rounds breathing has been a stable status intermittent shortness of breath and dry nonproductive cough overall respiratory status is stable, patient is being evaluated for possible endoscopy for Scales's esophagus by GI services patient remains on 3 L oxygen saturation has been a stable into mid 90s overall if needed her eyes may proceed with endoscopy however patient remains at [id number] risk of respiratory failure during procedure given her morbid obesity sleep apnea This patient is a 68-year-old female who is a morbidly obese with severe degree of sleep disorder breathing and sleep apnea patient has declined STACI evaluation and CPAP machine she is been having issues associated with cough and shortness of breath came into the hospital also had some loose stool but has resolved now she has chronic edema of the lower extremity she has been on Lasix seems to be helping Objective - Vital Signs Vital signs: Vital Signs Temp 98.2 F 05/20/18 15:00 Pulse 91 05/20/18 15:00 Resp 18 05/20/18 15:00 BP 139/73 05/20/18 15:00 Pulse Ox 94 L 05/20/18 15:00 Intake & Output 05/19/18 05/20/18 05/20/18 18:59 06:59 18:59 Intake Total 240 100 Output Total 200 2 Balance 40 98 Intake: IV 100 Oral 240 Output: Gastric Drainage 200 Urine 2 Other: Voiding Method Bedside Commode # Voids 4 2 - Exam General appearance: alert, anxious Head exam: Present: atraumatic, normocephalic, normal inspection Eye exam: Present: normal appearance, PERRL, EOMI. Absent: scleral icterus, conjunctival injection, periorbital swelling ENT exam: Present: normal exam, mucous membranes moist Neck exam: Present: normal inspection. Absent: tenderness, meningismus, lymphadenopathy Respiratory exam: Present: decreased breath sounds, other (Decreased breath sounds especially on the left at this time no definite wheezing she did receive a nebulizer in route by EMS). Absent: respiratory distress, wheezes, rales, rhonchi, stridor Cardiovascular Exam: Present: regular rate, normal rhythm, normal heart sounds. Absent: systolic murmur, diastolic murmur, rubs, gallop, clicks GI/Abdominal exam: Present: soft, normal bowel sounds. Absent: distended, tenderness, guarding, rebound, rigid Extremities exam: Present: full ROM, normal capillary refill, pedal edema. Absent: tenderness, joint swelling, calf tenderness Back exam: Present: normal inspection Neurological exam: Present: alert, oriented X3, CN II-XII intact Psychiatric exam: Present: normal affect, normal mood Skin exam: Present: warm, dry, intact, normal color. Absent: rash - Labs CBC & Chem 7: 05/17/18 19:25 05/17/18 19:25 Assessment and Plan Assessment: Chronic persistent asthma Baseline COPD Sleep disorder breathing and sleep apnea Congestive heart failure chronic diastolic heart failure History of GERD Plan: Continue breathing treatment Steroids can be switched to oral Patient can be discharged home from pulmonary standpoint pending GI workup May proceed with endoscopy however creatinine post procedure needs to be monitor observe closely given presence of sleep disorder breathing and sleep apnea and chronic asthma Time with Patient: Greater than 30
[2018-05-20] MEDS: PRAMIPEXOLE 0.25 MG TAB PO SCH (20:23)
[2018-05-20] MEDS ORDERED: ONDANSETRON 4 MG/2 ML VIAL IVP SCH (21:00)
[2018-05-20] MEDS ORDERED: ONDANSETRON 4 MG/2 ML VIAL IVP PRN (21:20)
[2018-05-21] MEDS: guaiFENesin 600 MG TABLET.ER PO PRN (00:16)
[2018-05-21] MEDS: HYDROcodone/APAP 10-325MG 1 EACH TAB PO SCH ×4 (00:16→18:10)
[2018-05-21] MEDS: HEPARIN SODIUM,PORCINE 5,000 UNIT/ML 1 ML VIAL SQ SCH ×3 (00:16→17:23)
[2018-05-21] MEDS: HYDROmorphone 1 MG/ML 1 ML SYRINGE IVP PRN ×6 (01:44→23:06)
--- NOTE | 2018-05-21 02:58 | P.PN ---
Subjective Progress Note Date: 05/20/18 Principal diagnosis: Acute COPD exacerbation Dysphagia Patient is a 68-year-old female with known history of COPD, CHF with diastolic dysfunction, morbid obesity and obesity hypoventilation syndrome, chronic pain and pain syndrome and chronic back pain and history of recent fall and multiple other medical problems and frequent previous admissions came to ER with complaints of shortness of breath came to ER with complaints of shortness of breath last night which is progressively getting worse and not responding to her breathing treatments at home. No complaints of fever or chills. Does have cough without sputum production. No complaints of chest pain. No headache or dizziness or lightheadedness. Patient is also complaining of choking-like feeling with solid foods and is also complaining of dysphagia. Patient says that she has a history of Scales's esophagitis during previous EGD. She also feels like she is getting fluid overloaded. Patient says that she's trying to lose weight by controlling her diet. Patient was recently discharged from hospital and was treated for E. coli and Proteus urinary tract infection. Chest x-ray showed no acute process. Thoracic aortic ectasia is seen. EKG showed normal sinus rhythm. 05/19/2018 Patient denied any complaints of chest pain or worsening shortness of breath. Patient is still complaining of pain. Also complains of dysphagia. Patient was seen by GI and recommended endoscopy tomorrow. IV steroids will be changed to by mouth. No fever no chills. No chest pain. No nausea vomiting or abdominal pain. All other review of systems negative except the above. 05/20/2018 Patient says that she had shortness of breath this morning. Also had choking feeling. Patient did have EGD today which showed Postoperative diagnosis: 1. Small sliding hiatal hernia with no obvious esophagitis or complicated reflux disease. 2. Normal stomach and then duodenum. Patient is being continued on steroids and breathing treatments. And pain medications. Pulmonary is following. Further recommendations from GI standpoint regarding her dysphagia. Current medications reviewed. Objective - Vital Signs Vital signs: Vital Signs Temp 98.2 F 05/20/18 15:00 Pulse 86 05/20/18 15:39 Resp 18 05/20/18 15:00 BP 139/73 05/20/18 15:00 Pulse Ox 94 L 05/20/18 15:00 Intake & Output 05/20/18 05/20/18 05/21/18 06:59 18:59 06:59 Intake Total 100 Output Total 2 Balance 98 Intake: IV 100 Output: Urine 2 Other: # Voids 2 - Exam PHYSICAL EXAMINATION: Patient is lying in the bed comfortably, no acute distress, awake alert and oriented. Morbid obesity. HEENT: Normocephalic. Neck is supple. Pupils reactive. Nostrils clear. Oral cavity is moist. Ears reveal no drainage. Neck reveals no JVD, carotid bruits, or thyromegaly. CHEST EXAMINATION: Trachea is central. Symmetrical expansion. Bibasilar diminished air entry. Prolonged expiration. Lung bah clear to auscultation and percussion. CARDIAC: Normal S1, S2 with no gallops. No murmurs ABDOMEN: Soft. Bowel sounds normal. No organomegaly. No abdominal bruits. Extremities: reveal no edema. No clubbing or cyanosis Neurologically awake, alert, oriented x3 with well-coordinated movements. No focal deficits noted Skin: No rash or skin lesions. Psychiatric: Coperative. Anxious and emotional. Nonsuicidal Musculoskeletal: No joint swelling or deformity. Normal range of motion. - Labs CBC & Chem 7: 05/17/18 19:25 05/17/18 19:25 Assessment and Plan Assessment: Chronic persistent asthma. Improving clinically. Shortness breath secondary to acute COPD exacerbation Dysphagia with history of Scales's esophagitis. EGD on 05/20/2018 negative for any stricture or Scales's esophagitis. Obesity with possible obesity hypoventilation syndrome and obstructive sleep apnea Recent urinary tract infection Recent CTA is negative for pulmonary embolism Recent mechanical fall and chronic back pain and chronic pain syndrome History of CHF with diastolic dysfunction chronic GERD History of [place] degenerative joint disease Urinary incontinence chronic Hypothyroidism Morbid obesity BMI 67 DVT prophylaxis with heparin subcu Plan: Patient will be continued on DuoNeb's and IV steroids. IV steroids were changed prednisone by mouth. Pulmonary is following. Status post- EGD. We will continue the pain management and follow up closely. Further recommendations based on the clinical course. Prognosis is guarded with multiple medical problems and comorbid conditions. Time with Patient: Greater than 30
[2018-05-21] MEDS: LEVOTHYROXINE 100 MCG TAB PO SCH (06:02)
[2018-05-21] MEDS: predniSONE 20 MG TAB PO SCH (08:04)
[2018-05-21] MEDS: FUROSEMIDE 40 MG TAB PO SCH ×2 (08:04→11:22)
[2018-05-21] MEDS: PANTOPRAZOLE 40 MG TABLET PO SCH ×2 (08:04→17:23)
[2018-05-21] MEDS: PREGABALIN 50 MG CAP PO SCH ×3 (08:09→20:29)
[2018-05-21 09:34] LABS: Calcium 8.5 mg/dL (8.4-10.2); Potassium 3.9 mmol/L (3.5-5.1)
[2018-05-21 09:44] LABS: Basophils % (A) 0 %; Eosinophils # (A) 0.1 k/uL (0-0.7); Eosinophils % (A) 1 %; HCT 37.1 % (34.0-46.0); HGB 11.9 gm/dL (11.4-16.0); Hypochromasia Slight; Lymphocytes # (A) 1.8 k/uL (1.0-4.8); Lymphocytes % (A) 26 %; MCHC 32.2 g/dL (31.0-37.0); Mean Platelet Volume 6.7; Monocytes # (A) 0.5 k/uL (0-1.0); Monocytes % (A) 7 %; Neutrophils # (A) 4.7 k/uL (1.3-7.7); Neutrophils % (A) 65 %; Platelet Count 331 k/uL (150-450); RBC 4.41 m/uL (3.80-5.40); RDW 14.7 % (11.5-15.5); WBC 7.1 k/uL (3.8-10.6)
[2018-05-21 09:48] LABS: MCV 84.1 fL (80.0-100.0)
[2018-05-21] MEDS: IPRATROPIUM-ALBUTEROL 3 ML NEB INHALATION SCH ×4 (10:00→19:14)
[2018-05-21] MEDS: LORazepam 0.5 MG TAB PO PRN (11:21)
--- NOTE | 2018-05-21 14:33 | P.PN ---
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 Amaral postoperative note I've discussed with the patient at length given that ongoing chronic symptoms that would likely to be encountered which would likely will not resolve as her baseline status is bed bound with minimal activity and when she also does not go to doctors offices she has refused the BiPAP machine as well 05/20/2018, patient seen eval examined during the rounds clinically has been doing well shortness of breath and cough is present but overall stable care plan discussed with the GI service patient is for endoscopy by Dr. Amaral overall from respiratory standpoint she is doing better after endoscopy she can be monitored and observed and eventually can be discharged tomorrow 05/19/2018, patient seen evjudith reexamined during the rounds breathing has been a stable status intermittent shortness of breath and dry nonproductive cough overall respiratory status is stable, patient is being evaluated for possible endoscopy for Scales's esophagus by GI services patient remains on 3 L oxygen saturation has been a stable into mid 90s overall if needed her eyes may proceed with endoscopy however patient remains at [id number] risk of respiratory failure during procedure given her morbid obesity sleep apnea This patient is a 68-year-old female who is a morbidly obese with severe degree of sleep disorder breathing and sleep apnea patient has declined STACI evaluation and CPAP machine she is been having issues associated with cough and shortness of breath came into the hospital also had some loose stool but has resolved now she has chronic edema of the lower extremity she has been on Lasix seems to be helping Objective - Vital Signs Vital signs: Vital Signs Temp 97.0 F L 05/21/18 06:34 Pulse 82 05/21/18 13:43 Resp 16 05/21/18 06:34 BP 129/68 05/21/18 06:34 Pulse Ox 98 05/21/18 06:34 Intake & Output 05/20/18 05/21/18 05/21/18 18:59 06:59 18:59 Intake Total 100 Output Total 2 Balance 98 Intake: IV 100 Output: Urine 2 Other: # Voids 2 3 - Exam General appearance: alert, anxious Head exam: Present: atraumatic, normocephalic, normal inspection Eye exam: Present: normal appearance, PERRL, EOMI. Absent: scleral icterus, conjunctival injection, periorbital swelling ENT exam: Present: normal exam, mucous membranes moist Neck exam: Present: normal inspection. Absent: tenderness, meningismus, lymphadenopathy Respiratory exam: Present: decreased breath sounds, other (Decreased breath sounds especially on the left at this time no definite wheezing she did receive a nebulizer in route by EMS). Absent: respiratory distress, wheezes, rales, rhonchi, stridor Cardiovascular Exam: Present: regular rate, normal rhythm, normal heart sounds. Absent: systolic murmur, diastolic murmur, rubs, gallop, clicks GI/Abdominal exam: Present: soft, normal bowel sounds. Absent: distended, tenderness, guarding, rebound, rigid Extremities exam: Present: full ROM, normal capillary refill, pedal edema. Absent: tenderness, joint swelling, calf tenderness Back exam: Present: normal inspection Neurological exam: Present: alert, oriented X3, CN II-XII intact Psychiatric exam: Present: normal affect, normal mood Skin exam: Present: warm, dry, intact, normal color. Absent: rash - Labs CBC & Chem 7: 05/21/18 08:21 05/21/18 08:21 Labs: Abnormal Lab Results - Last 24 Hours (Table) 05/21/18 Range/Units 08:21 BUN 31 H (7-17) mg/dL Glucose 110 H (74-99) mg/dL Assessment and Plan Assessment: Shortness of breath on activity and exertion Chronic persistent asthma Baseline COPD Sleep disorder breathing and sleep apnea Congestive heart failure chronic diastolic heart failure History of GERD Plan: Continue breathing treatment Steroids can be switched to oral Patient can be discharged home from pulmonary standpoint pending GI workup Time with Patient: Greater than 30
[2018-05-21] MEDS: PRAMIPEXOLE 0.25 MG TAB PO SCH (20:29)
--- NOTE | 2018-05-21 21:44 | P.PN ---
Subjective Progress Note Date: 05/21/18 Principal diagnosis: Globus, dysphagia Patient had EGD which was negative for any anatomical defect or pathology to explain dysphagia. She reports feeling frustrated about her breathing and shortness of breath and episodes of dysphagia. No nausea vomiting or change in bowel habits at this time. Objective - Vital Signs Vital signs: Vital Signs Temp 98.0 F 05/21/18 15:00 Pulse 88 05/21/18 15:00 Resp 18 05/21/18 15:00 BP 110/52 05/21/18 15:00 Pulse Ox 92 L 05/21/18 15:00 Intake & Output 05/21/18 05/21/18 05/22/18 06:59 18:59 06:59 Other: # Voids 2 4 # Bowel Movements 1 - Exam On physical examination, patient appears comfortable in no apparent distress. HEAD: Normocephalic, atraumatic. EYES: No scleral icterus. No conjunctival injection. MOUTH: No lesions, tongue midline. NECK: Trachea midline, no gross abnormalities. CHEST: Decreased air entry in all lung bah ABDOMEN: Soft, morbidly obese. Bowel sounds are positive. No guarding or rigidity. EXTREMITIES: No pedal edema. SKIN: No rashes, no jaundice. NEUROLOGIC: Alert and oriented x3. - Labs CBC & Chem 7: 05/21/18 08:21 05/21/18 08:21 Labs: Abnormal Lab Results - Last 24 Hours (Table) 05/21/18 Range/Units 08:21 BUN 31 H (7-17) mg/dL Glucose 110 H (74-99) mg/dL Assessment and Plan (1) Dysphagia Narrative/Plan: Patient has reported dysphagia to both solids and liquids. EGD done in evaluation was negative for any malignancy, anatomical defect or pathology to explain dysphagia. His possible that the patient may have an underlying motility disorder which may be chronic or secondary to current medical illness. This can be further evaluated with a motility study in the outpatient setting with recommendations to continue symptomatic treatment with eating/swallowing precautions. Current Visit: Yes Status: Acute Code(s): R13.10 - DYSPHAGIA, UNSPECIFIED SNOMED Code(s): 38453391 (2) GERD (gastroesophageal reflux disease) Narrative/Plan: History of GERD and possible Scales's esophagus with no mucosal changes seen on EGD. Current Visit: Yes Status: Acute Code(s): K21.9 - GASTRO-ESOPHAGEAL REFLUX DISEASE WITHOUT ESOPHAGITIS SNOMED Code(s): 530224233 (3) Irritable bowel syndrome (IBS) Narrative/Plan: History of irritable bowel syndrome, diarrhea predominant. Current Visit: No Status: Acute Code(s): K58.9 - IRRITABLE BOWEL SYNDROME WITHOUT DIARRHEA SNOMED Code(s): 03360945 Plan: Supportive care Okay for diet as tolerated Continue Protonix therapy Small bites, swallowing with sips of water, eating and drinking an upright position and other symptomatic treatments for dysphagia No anatomical or pathologic findings to explain dysphagia, this may be related to a acute or chronic motility disorder with further evaluation in the outpatient setting with motility study if the patient is agreeable This is been discussed and explained to the patient in detail, no further recommendations at this time Will stand by, please feel free to call us back with any questions or concerns
[2018-05-22] MEDS: HYDROcodone/APAP 10-325MG 1 EACH TAB PO SCH ×3 (00:04→12:30)
[2018-05-22] MEDS: HEPARIN SODIUM,PORCINE 5,000 UNIT/ML 1 ML VIAL SQ SCH ×2 (00:04→09:02)
[2018-05-22] MEDS: HYDROmorphone 1 MG/ML 1 ML SYRINGE IVP PRN ×3 (03:24→11:27)
[2018-05-22] MEDS: LEVOTHYROXINE 100 MCG TAB PO SCH (06:12)
[2018-05-22] MEDS: IPRATROPIUM-ALBUTEROL 3 ML NEB INHALATION SCH ×2 (07:20→11:12)
[2018-05-22 07:41] VITALS: BP 118/67; PULSE 76; RESP 16; TEMP 98
[2018-05-22] MEDS: FUROSEMIDE 40 MG TAB PO SCH ×2 (09:01→09:08)
[2018-05-22] MEDS: predniSONE 20 MG TAB PO SCH (09:01)
[2018-05-22] MEDS: PANTOPRAZOLE 40 MG TABLET PO SCH (09:01)
[2018-05-22] MEDS: PREGABALIN 50 MG CAP PO SCH (09:08)
--- NOTE | 2018-05-22 09:38 | P.PN ---
Subjective Progress Note Date: 05/22/18 Principal diagnosis: Chronic persistent severe asthma, GERD, severe morbid obesity, obstructive sleep apnea, hypertension hypertensive cardiovascular disease, history of GI bleed, 05/22/2018, patient seen quentin examined during the rounds clinically patient has been doing well however patient has somewhat restless night, while I walked into the room patient was sleeping comfortably no obvious respiratory distress was present on noted woke her up she expressed that she was somewhat restless at night but however denies any chest pain she has predominantly dyspnea on exertion but denies any shortness of breath at rest she is being planned for discharge later on today her hemodynamic status stable, labs reviewed as well slight pretibial azotemia is present likely multifactorial associated with the steroids as well, discussed with RN to check room air pulse ox with activity at the time of discharge, 05/21/2018, patient seen quentin examined during the rounds clinically overall not much change from baseline patient has chronic shortness of breath on activity and exertion also intermittent dry cough overall not much different from baseline she says status post endoscopy and 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 Amaral postoperative note I've discussed with the patient at length given that ongoing chronic symptoms that would likely to be encountered which would likely will not resolve as her baseline status is bed bound with minimal activity and when she also does not go to doctors offices she has refused the BiPAP machine as well 05/20/2018, patient seen quentin examined during the rounds clinically has been doing well shortness of breath and cough is present but overall stable care plan discussed with the GI service patient is for endoscopy by Dr. Amaral overall from respiratory standpoint she is doing better after endoscopy she can be monitored and observed and eventually can be discharged tomorrow 05/19/2018, patient seen quentin reexamined during the rounds breathing has been a stable status intermittent shortness of breath and dry nonproductive cough overall respiratory status is stable, patient is being evaluated for possible endoscopy for Scales's esophagus by GI services patient remains on 3 L oxygen saturation has been a stable into mid 90s overall if needed her eyes may proceed with endoscopy however patient remains at [id number] risk of respiratory failure during procedure given her morbid obesity sleep apnea This patient is a 68-year-old female who is a morbidly obese with severe degree of sleep disorder breathing and sleep apnea patient has declined STACI evaluation and CPAP machine she is been having issues associated with cough and shortness of breath came into the hospital also had some loose stool but has resolved now she has chronic edema of the lower extremity she has been on Lasix seems to be helping Objective - Vital Signs Vital signs: Vital Signs Temp 98.0 F 05/22/18 07:13 Pulse 76 05/22/18 07:13 Resp 16 05/22/18 07:13 BP 118/67 05/22/18 07:13 Pulse Ox 99 05/22/18 07:13 Intake & Output 05/21/18 05/22/18 05/22/18 18:59 06:59 18:59 Intake Total 240 Balance 240 Intake: Oral 240 Other: Voiding Method Bedside Commode # Voids 4 1 # Bowel Movements 1 - Exam General appearance: alert, anxious Head exam: Present: atraumatic, normocephalic, normal inspection Eye exam: Present: normal appearance, PERRL, EOMI. Absent: scleral icterus, conjunctival injection, periorbital swelling ENT exam: Present: normal exam, mucous membranes moist Neck exam: Present: normal inspection. Absent: tenderness, meningismus, lymphadenopathy Respiratory exam: Present: decreased breath sounds, other (Decreased breath sounds especially on the left at this time no definite wheezing she did receive a nebulizer in route by EMS). Absent: respiratory distress, wheezes, rales, rhonchi, stridor Cardiovascular Exam: Present: regular rate, normal rhythm, normal heart sounds. Absent: systolic murmur, diastolic murmur, rubs, gallop, clicks GI/Abdominal exam: Present: soft, normal bowel sounds. Absent: distended, tenderness, guarding, rebound, rigid Extremities exam: Present: full ROM, normal capillary refill, pedal edema. Absent: tenderness, joint swelling, calf tenderness Back exam: Present: normal inspection Neurological exam: Present: alert, oriented X3, CN II-XII intact Psychiatric exam: Present: normal affect, normal mood Skin exam: Present: warm, dry, intact, normal color. Absent: rash - Labs CBC & Chem 7: 05/21/18 08:21 05/21/18 08:21 Assessment and Plan Assessment: Shortness of breath on activity and exertion Severe morbid obesity Chronic persistent asthma Baseline COPD Sleep disorder breathing and sleep apnea Congestive heart failure chronic diastolic heart failure History of GERD Plan: Continue breathing treatment Steroids can be tapered and DC on outpatient setting Patient can be discharged home from pulmonary standpoint Check pulse ox at room air before and after activity prior to discharge for home O2 assessment Time with Patient: Greater than 30
--- NOTE | 2018-05-22 10:47 | P.PN ---
Subjective Progress Note Date: 05/21/18 Principal diagnosis: Acute COPD exacerbation Dysphagia Patient is a 68-year-old female with known history of COPD, CHF with diastolic dysfunction, morbid obesity and obesity hypoventilation syndrome, chronic pain and pain syndrome and chronic back pain and history of recent fall and multiple other medical problems and frequent previous admissions came to ER with complaints of shortness of breath came to ER with complaints of shortness of breath last night which is progressively getting worse and not responding to her breathing treatments at home. No complaints of fever or chills. Does have cough without sputum production. No complaints of chest pain. No headache or dizziness or lightheadedness. Patient is also complaining of choking-like feeling with solid foods and is also complaining of dysphagia. Patient says that she has a history of Scales's esophagitis during previous EGD. She also feels like she is getting fluid overloaded. Patient says that she's trying to lose weight by controlling her diet. Patient was recently discharged from hospital and was treated for E. coli and Proteus urinary tract infection. 05/21/2018; Patient is seen and evaluated in the room at bedside; patient is concerned about EGD results and relates she was told she has some growth on right side of the stomach; EGD report reviewed and discussed with patient in great detail no such growth has been reported in EGD; patient relates that she would then want to stay another day since her breathing is still hard and not at baseline Objective - Vital Signs Vital signs: Vital Signs Temp 97.0 F L 05/21/18 06:34 Pulse 79 05/21/18 06:34 Resp 16 05/21/18 06:34 BP 129/68 05/21/18 06:34 Pulse Ox 98 05/21/18 06:34 Intake & Output 05/20/18 05/21/18 05/21/18 18:59 06:59 18:59 Intake Total 100 Output Total 2 Balance 98 Intake: IV 100 Output: Urine 2 Other: # Voids 2 - Exam Patient is lying in the bed comfortably, no acute distress, awake alert and oriented. Morbid obesity. HEENT: Normocephalic. Neck is supple. Pupils reactive. Nostrils clear. Oral cavity is moist. Ears reveal no drainage. Neck reveals no JVD, carotid bruits, or thyromegaly. CHEST EXAMINATION: Trachea is central. Symmetrical expansion. Bibasilar diminished air entry. Prolonged expiration. Lung bah clear to auscultation and percussion. CARDIAC: Normal S1, S2 with no gallops. No murmurs ABDOMEN: Soft. Bowel sounds normal. No organomegaly. No abdominal bruits. Extremities: reveal no edema. No clubbing or cyanosis Neurologically awake, alert, oriented x3 with well-coordinated movements. No focal deficits noted Skin: No rash or skin lesions. Psychiatric: Coperative. Anxious and emotional. Nonsuicidal Musculoskeletal: No joint swelling or deformity. Normal range of motion. - Labs CBC & Chem 7: 05/21/18 08:21 05/21/18 08:21 Assessment and Plan Assessment: Chronic persistent asthma. Improving clinically. Shortness breath secondary to acute COPD exacerbation Dysphagia with history of Scales's esophagitis. EGD on 05/20/2018 negative for any stricture or Scales's esophagitis. Obesity with possible obesity hypoventilation syndrome and obstructive sleep apnea Recent urinary tract infection Recent CTA is negative for pulmonary embolism Recent mechanical fall and chronic back pain and chronic pain syndrome History of CHF with diastolic dysfunction chronic GERD History of PA degenerative joint disease Urinary incontinence chronic Hypothyroidism Morbid obesity BMI 67 DVT prophylaxis with heparin subcu Plan: Patient will be continued on DuoNeb's and IV steroids. IV steroids were changed prednisone by mouth. Pulmonary is following. Status post- EGD. We will continue the pain management and follow up closely. Further recommendations based on the clinical course. Prognosis is guarded with multiple medical problems and comorbid conditions. Anticipated discharge in next 24 hours Time with Patient: Greater than 30
== END 2018-05-22 14:16 | disposition home or self-care (01) | DRG 191 ==
LOC: EC 18:00 → 4MS4W 23:16 → OBSVTOIN 05-20 08:37
PROVIDERS: ADMIT Internal Medicine; ATTEND Internal Medicine
PROC: 0DJ08ZZ Inspection of Upper Intestinal Tract, Via Natural or Artificial Opening Endoscopic (ICD-10-PCS; principal; 2018-05-20 07:30)
DX: J44.1 Chronic obstructive pulmonary disease with (acute) exacerbation (principal); E66.2 Morbid (severe) obesity with alveolar hypoventilation; Z68.44 Body mass index [BMI] 60.0-69.9, adult; I50.32 Chronic diastolic (congestive) heart failure; I11.0 Hypertensive heart disease with heart failure; R13.10 Dysphagia, unspecified; M51.24 Other intervertebral disc displacement, thoracic region; M51.26 Other intervertebral disc displacement, lumbar region; M51.27 Other intervertebral disc displacement, lumbosacral region; K44.9 Diaphragmatic hernia without obstruction or gangrene; L30.9 Dermatitis, unspecified; G47.33 Obstructive sleep apnea (adult) (pediatric); E03.9 Hypothyroidism, unspecified; J45.50 Severe persistent asthma, uncomplicated; I25.2 Old myocardial infarction; K58.0 Irritable bowel syndrome with diarrhea; M19.91 Primary osteoarthritis, unspecified site; F41.9 Anxiety disorder, unspecified; I77.810 Thoracic aortic ectasia; G89.4 Chronic pain syndrome; M54.9 Dorsalgia, unspecified; R32 Unspecified urinary incontinence; Z79.890 Hormone replacement therapy; Z79.891 Long term (current) use of opiate analgesic; Z79.52 Long term (current) use of systemic steroids; Z79.899 Other long term (current) drug therapy; Z87.440 Personal history of urinary (tract) infections; Z90.49 Acquired absence of other specified parts of digestive tract; Z90.710 Acquired absence of both cervix and uterus; Z85.42 Personal history of malignant neoplasm of other parts of uterus; Z96.651 Presence of right artificial knee joint; Z96.642 Presence of left artificial hip joint; Z87.442 Personal history of urinary calculi; Z87.01 Personal history of pneumonia (recurrent); Z87.11 Personal history of peptic ulcer disease; Z87.19 Personal history of other diseases of the digestive system; Z86.79 Personal history of other diseases of the circulatory system; Z87.81 Personal history of (healed) traumatic fracture; Z88.5 Allergy status to narcotic agent; Z88.8 Allergy status to other drugs, medicaments and biological substances; Z91.041 Radiographic dye allergy status; Z82.3 Family history of stroke; Z82.49 Family history of ischemic heart disease and other diseases of the circulatory system; Z80.1 Family history of malignant neoplasm of trachea, bronchus and lung; Z80.52 Family history of malignant neoplasm of bladder; Z83.49 Family history of other endocrine, nutritional and metabolic diseases
CPT/HCPCS: 36415; 43235; 71046; 80048; 80053; 82550; 82553; 83735; 83880; 84484; 85025; 85610; 85730; 93005; 94640; 94760; 96374; 96375; 96376; 99291

== ENCOUNTER 2018-05-24 13:07 | Observation (INO) | payer MEDICARE, OTHER ==
[2018-05-24] MEDS ORDERED: IPRATROPIUM-ALBUTEROL 3 ML NEB INHALATION STA (13:16)
[2018-05-24] MEDS ORDERED: methylPREDNISolone SOD SUCCI 125 MG/2 ML VIAL IV STA (13:16)
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
[2018-05-24] MEDS ORDERED: ONDANSETRON 4 MG/2 ML VIAL IVP STA (14:04)
[2018-05-24 14:27] LABS: Basophils % (A) 0 %; Eosinophils # (A) 0.2 k/uL (0-0.7); Eosinophils % (A) 2 %; HCT 35.1 % (34.0-46.0); HGB 11.3 gm/dL (11.4-16.0); Lymphocytes # (A) 1.7 k/uL (1.0-4.8); Lymphocytes % (A) 13 %; MCH 26.2 pg (25.0-35.0); MCHC 32.1 g/dL (31.0-37.0); MCV 81.5 fL (80.0-100.0); Mean Platelet Volume 6.7; Monocytes # (A) 0.5 k/uL (0-1.0); Monocytes % (A) 4 %; Neutrophils # (A) 10.6 k/uL (1.3-7.7); Neutrophils % (A) 80 %; Platelet Count 356 k/uL (150-450); RBC 4.31 m/uL (3.80-5.40); RDW 14.7 % (11.5-15.5); WBC 13.2 k/uL (3.8-10.6)
[2018-05-24 14:35] LABS: ALT 27 U/L (9-52); AST 17 U/L (14-36); Albumin 3.4 g/dL (3.5-5.0); Alkaline Phosphatase 91 U/L (38-126); Anion Gap 7 mmol/L; Blood Urea Nitrogen 13 mg/dL (7-17); Calcium 8.8 mg/dL (8.4-10.2); Carbon Dioxide 26 mmol/L (22-30); Chloride 104 mmol/L (98-107); Glucose 85 mg/dL (74-99); Potassium 4.5 mmol/L (3.5-5.1); Sodium 137 mmol/L (137-145); Total Bilirubin 0.6 mg/dL (0.2-1.3)
[2018-05-24 14:48] LABS: Creatine Kinase 28 U/L (30-135)
[2018-05-24] MEDS ORDERED: MORPHINE SULFATE 4 MG/ML SYRINGE IVP STA ×2 (14:57→17:49)
[2018-05-24 15:01] LABS: Creatine Kinase MB 0.8 ng/mL (0.0-2.4); Troponin I <0.012 ng/mL (0.000-0.034)
--- NOTE | 2018-05-24 15:54 | XR ---
EXAMINATION TYPE: XR chest 2V DATE OF EXAM: 05/24/2018 COMPARISON: 05/17/2018 HISTORY: Shortness of breath TECHNIQUE: Frontal and lateral views of the chest are obtained. FINDINGS: Scattered senescent parenchymal changes noted. Hyperinflation compatible with COPD. No evidence for infiltrate. No evidence for atelectasis. Heart size is stable. Mediastinal structures are stable and grossly unremarkable. No evidence for hilar prominence. Degenerative changes dorsal spine. IMPRESSION: 1. No evidence for acute pulmonary disease.
[2018-05-24] MEDS ORDERED: IPRATROPIUM-ALBUTEROL 3 ML NEB INHALATION PRN (16:38)
[2018-05-24] MEDS: IPRATROPIUM-ALBUTEROL 3 ML NEB INHALATION SCH (19:04)
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
[2018-05-24] MEDS ORDERED: LORazepam 0.5 MG TAB PO PRN (20:45)
[2018-05-24] MEDS ORDERED: ALBUTEROL INHALER 60 PUFF/8 GM INHALER INHALATION PRN (20:45)
[2018-05-24] MEDS: methylPREDNISolone SOD SUCCI 125 MG/2 ML VIAL IV SCH (20:55)
[2018-05-24 21:51] LABS: Glucose,Whole Blood 240 mg/dL (75-99)
[2018-05-24] MEDS: PRAMIPEXOLE 0.25 MG TAB PO SCH (22:16)
[2018-05-24] MEDS: INSULIN ASPART 100 UNIT/ML 1 ML 10 ML VIAL SQ SCH (22:16)
[2018-05-24] MEDS: PREGABALIN 50 MG CAP PO SCH (22:16)
[2018-05-24] MEDS: HYDROcodone/APAP 10-325MG 1 EACH TAB PO SCH (23:38)
[2018-05-25] MEDS: methylPREDNISolone SOD SUCCI 125 MG/2 ML VIAL IV SCH ×3 (00:04→12:21)
[2018-05-25] MEDS: HYDROmorphone 1 MG/ML 1 ML SYRINGE IVP PRN ×3 (03:15→11:50)
[2018-05-25] MEDS: LEVOTHYROXINE 100 MCG TAB PO SCH (06:14)
[2018-05-25] MEDS: HYDROcodone/APAP 10-325MG 1 EACH TAB PO SCH ×2 (06:15→13:01)
[2018-05-25 07:02] LABS: Glucose,Whole Blood 200 mg/dL (75-99)
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
[2018-05-25] MEDS: IPRATROPIUM-ALBUTEROL 3 ML NEB INHALATION SCH ×4 (07:37→19:32)
[2018-05-25 07:41] LABS: Basophils % (A) 0 %; Eosinophils # (A) 0.1 k/uL (0-0.7); Eosinophils % (A) 1 %; HCT 36.1 % (34.0-46.0); HGB 11.4 gm/dL (11.4-16.0); Lymphocytes % (A) 6 %; MCH 26.1 pg (25.0-35.0); MCHC 31.5 g/dL (31.0-37.0); Monocytes # (A) 0.3 k/uL (0-1.0); Monocytes % (A) 2 %; Neutrophils # (A) 13.7 k/uL (1.3-7.7); Neutrophils % (A) 91 %; Platelet Count 408 k/uL (150-450); RBC 4.35 m/uL (3.80-5.40); RDW 14.7 % (11.5-15.5); WBC 15.2 k/uL (3.8-10.6)
[2018-05-25] MEDS: PREGABALIN 50 MG CAP PO SCH ×3 (07:43→21:19)
[2018-05-25] MEDS: AZITHROMYCIN 500 MG TAB PO SCH (07:43)
[2018-05-25] MEDS: PANTOPRAZOLE 40 MG TABLET PO SCH ×2 (07:43→17:17)
[2018-05-25] MEDS: FUROSEMIDE 40 MG TAB PO SCH (07:43)
[2018-05-25] MEDS: INSULIN ASPART 100 UNIT/ML 1 ML 10 ML VIAL SQ SCH ×4 (07:44→20:43)
[2018-05-25 08:04] LABS: Anion Gap 8 mmol/L; Blood Urea Nitrogen 18 mg/dL (7-17); Calcium 9.3 mg/dL (8.4-10.2); Carbon Dioxide 26 mmol/L (22-30); Chloride 104 mmol/L (98-107); Glucose 163 mg/dL (74-99); Potassium 5.5 mmol/L (3.5-5.1); Sodium 138 mmol/L (137-145)
[2018-05-25 12:22] LABS: Glucose,Whole Blood 145 mg/dL (75-99)
[2018-05-25] MEDS ORDERED: HYDROmorphone 2 MG TAB PO PRN (12:45)
[2018-05-25] MEDS: predniSONE 10 MG TAB PO SCH (15:43)
[2018-05-25 17:05] LABS: Glucose,Whole Blood 163 mg/dL (75-99)
[2018-05-25] MEDS ORDERED: HYDROcodone/APAP 10-325MG 1 EACH TAB PO PRN (17:08)
[2018-05-25] MEDS: HYDROcodone/APAP 10-325MG 1 EACH TAB PO PRN ×2 (17:13→21:18)
--- NOTE | 2018-05-25 17:26 | P.PN ---
Subjective Progress Note Date: 05/25/18 Principal diagnosis: COPD exacerbation, chronic cough, depression, generalized anxiety disorder, hypothyroidism, obesity hypoventilation syndrome, noncompliance 05/25/2018, patient seen eval examined during the rounds from respiratory standpoint doing fairly well still of intermittent shortness of breath cough severity however has improved 68-year-old morbidly obese female with the some component of noncompliance associated with treatment and evaluation of sleep-disordered breathing and sleep apnea patient also has a history of COPD and obesity hypoventilation she has chronic ongoing dyspnea on exertion recently she has been hospitalized for shortness of breath she has been treated with IV steroids breathing treatment with some improvement was eventually discharged patient was okay for a day or so and then started developing increasing shortness of breath cough worsening our chronic pain as well with those problem patient called me advised to come into the hospital for further evaluation, patient has declined extended care facility placement as well he does have intermittent cough off note that her saturation was 90% however improved to 95% on 2 L oxygen she responded well with bronchodilator she was talking on the phone as I walked in however did break into tears though on specific questioning he denies any seizure-like a loss of consciousness) denies any chest pain or radiation of pain denies any night sweats fever that she chills denies any bowel or bladder related problem patient does have chronic anasarca which has not changed Objective - Vital Signs Vital signs: Vital Signs Temp 97.8 F 05/25/18 15:51 Pulse 97 05/25/18 15:51 Resp 16 05/25/18 15:51 BP 138/77 05/25/18 15:51 Pulse Ox 97 05/25/18 15:51 Intake & Output 05/24/18 05/25/18 05/25/18 18:59 06:59 18:59 Intake Total 666 936 Balance 666 936 Weight 154.221 kg 155.3 kg Intake: Oral 666 936 Other: Voiding Method Bedside Commode Diaper # Voids 2 - Exam - Constitutional General appearance: cooperative, disheveled, morbidly obese, no acute distress - EENT Eyes: anicteric sclerae, EOMI, PERRLA, poor dentition, normal appearance ENT: normal oropharynx Ears: bilateral: normal - Neck Neck: normal ROM Carotids: bilateral: upstroke normal, bruit absent Thyroid: bilateral: normal size - Respiratory Respiratory: bilateral: diminished, negative: dullness, rales, rhonchi, wheezing - Cardiovascular Heart sounds: normal: S1, S2 - Gastrointestinal General gastrointestinal: distended, normal bowel sounds - Integumentary Integumentary: normal, normal turgor - Neurologic Neurologic: CNII-XII intact - Musculoskeletal Musculoskeletal: gait normal, generalized weakness, strength equal bilaterally - Psychiatric Psychiatric: A&O x's 3, appropriate affect, intact judgment & insight - Labs CBC & Chem 7: 05/25/18 07:00 05/25/18 07:00 Labs: Abnormal Lab Results - Last 24 Hours (Table) 05/24/18 05/25/18 05/25/18 Range/Units 21:49 06:45 07:00 WBC 15.2 H (3.8-10.6) k/uL Neutrophils # 13.7 H (1.3-7.7) k/uL Potassium (3.5-5.1) mmol/L BUN (7-17) mg/dL Glucose (74-99) mg/dL POC Glucose (mg/dL) 240 H 200 H (75-99) mg/dL 05/25/18 05/25/18 05/25/18 Range/Units 07:00 12:01 16:54 WBC (3.8-10.6) k/uL Neutrophils # (1.3-7.7) k/uL Potassium 5.5 H (3.5-5.1) mmol/L BUN 18 H (7-17) mg/dL Glucose 163 H (74-99) mg/dL POC Glucose (mg/dL) 145 H 163 H (75-99) mg/dL Assessment and Plan Assessment: Acute COPD exacerbation Severe degree of obstructive sleep apnea Severe morbid obesity Noncompliance Borderline hyperglycemia likely related to steroids Plan: Continue supportive care Breathing treatment and steroids Oral antibiotics Please activity as tolerated Patient will benefit from placement in extended care facility or jail, can be discharged home from pulmonary standpoint Time with Patient: Greater than 30
[2018-05-25] MEDS: PRAMIPEXOLE 0.25 MG TAB PO SCH (21:19)
[2018-05-26] MEDS: HYDROcodone/APAP 10-325MG 1 EACH TAB PO PRN ×2 (01:35→05:56)
[2018-05-26] MEDS: LEVOTHYROXINE 100 MCG TAB PO SCH (05:56)
[2018-05-26] MEDS: IPRATROPIUM-ALBUTEROL 3 ML NEB INHALATION SCH ×2 (07:15→11:59)
[2018-05-26 07:24] VITALS: BP 145/86; PULSE 83; RESP 16; TEMP 98.4
[2018-05-26] MEDS: INSULIN ASPART 100 UNIT/ML 1 ML 10 ML VIAL SQ SCH (09:31)
[2018-05-26] MEDS: PREGABALIN 50 MG CAP PO SCH (09:39)
[2018-05-26] MEDS: predniSONE 10 MG TAB PO SCH (09:40)
[2018-05-26] MEDS: PANTOPRAZOLE 40 MG TABLET PO SCH (09:40)
[2018-05-26] MEDS: AZITHROMYCIN 500 MG TAB PO SCH (09:40)
[2018-05-26] MEDS: FUROSEMIDE 40 MG TAB PO SCH (09:40)
[2018-05-26] MEDS ORDERED: SODIUM POLYSTYRENE SULFONATE 15 GM/60 ML BOTTLE PO STA (09:43)
--- NOTE | 2018-05-26 23:34 | P.PN ---
Subjective Progress Note Date: 05/25/18 Principal diagnosis: Chronic persistent asthma Patient is a 68-year-old female with known history of COPD, CHF with diastolic dysfunction, morbid obesity and obesity hypoventilation syndrome, chronic pain and pain syndrome and chronic back pain and history of recent fall and multiple other medical problems and frequent previous admissions came to ER with complaints of shortness of breath came to ER with complaints of shortness of breath last night which is progressively getting worse and not responding to her breathing treatments at home. Patient is also complaining of bilateral leg swelling. Patient called her pulmonary physician Dr. Howard and was recommended to come to the hospital. No complaints of fever or chills. Does have cough without sputum production. No complaints of chest pain. No headache or dizziness or lightheadedness. She also feels like she is getting fluid overloaded. Patient says that she's trying to lose weight by controlling her diet. Patient was recently discharged from hospital and was treated for E. coli and Proteus urinary tract infection. Patient was complaining of choking-like feeling with solid foods and is also complaining of dysphagia. Patient says that she has a history of Scales's esophagitis during previous EGD. Patient had EGD during recent admission showed no evidence of Scales's esophagus of obstruction or peptic ulcer disease. Chest x-ray showed no acute process. EKG showed normal sinus rhythm. 05/25/2018 Patient says that her breathing is better. No complaints of chest pain. Patient is requesting to increase her pain medications. Potassium level was 5.5 today. Kayexalate was ordered. Otherwise no acute overnight issues. No fever no chills. No nausea vomiting or abdominal pain. No diarrhea or dysuria. Current medications reviewed. Objective - Vital Signs Vital signs: Vital Signs Temp 97.8 F 05/25/18 15:51 Pulse 97 05/25/18 15:51 Resp 16 05/25/18 15:51 BP 138/77 05/25/18 15:51 Pulse Ox 97 05/25/18 15:51 Intake & Output 05/24/18 05/25/18 05/25/18 18:59 06:59 18:59 Intake Total 666 936 Balance 666 936 Weight 154.221 kg 155.3 kg Intake: Oral 666 936 Other: Voiding Method Bedside Commode Diaper # Voids 2 - Exam PHYSICAL EXAMINATION: Patient is lying in the bed comfortably, no acute distress, awake alert and oriented. Morbid obesity. HEENT: Normocephalic. Neck is supple. Pupils reactive. Nostrils clear. Oral cavity is moist. Ears reveal no drainage. Neck reveals no JVD, carotid bruits, or thyromegaly. CHEST EXAMINATION: Trachea is central. Symmetrical expansion. Bibasilar diminished air entry. Mild expiratory wheeze. Lung bah clear to auscultation and percussion. CARDIAC: Normal S1, S2 with no gallops. No murmurs ABDOMEN: Soft. Bowel sounds normal. No organomegaly. No abdominal bruits. Extremities: reveal no edema. No clubbing or cyanosis Neurologically awake, alert, oriented x3 with well-coordinated movements. No focal deficits noted Skin: No rash or skin lesions. Psychiatric: Coperative. Anxious and emotional. Nonsuicidal Musculoskeletal: No joint swelling or deformity. Normal range of motion. - Labs CBC & Chem 7: 05/25/18 07:00 05/25/18 07:00 Labs: Abnormal Lab Results - Last 24 Hours (Table) 05/24/18 05/25/18 05/25/18 Range/Units 21:49 06:45 07:00 WBC 15.2 H (3.8-10.6) k/uL Neutrophils # 13.7 H (1.3-7.7) k/uL Potassium (3.5-5.1) mmol/L BUN (7-17) mg/dL Glucose (74-99) mg/dL POC Glucose (mg/dL) 240 H 200 H (75-99) mg/dL 05/25/18 05/25/18 Range/Units 07:00 12:01 WBC (3.8-10.6) k/uL Neutrophils # (1.3-7.7) k/uL Potassium 5.5 H (3.5-5.1) mmol/L BUN 18 H (7-17) mg/dL Glucose 163 H (74-99) mg/dL POC Glucose (mg/dL) 145 H (75-99) mg/dL Assessment and Plan Assessment: Chronic persistent asthma. Improving clinically. Shortness breath secondary to acute COPD exacerbation and asthma Dysphagia with history of Scales's esophagitis. EGD on 05/20/2018 negative for any stricture or Scales's esophagitis. Obesity with possible obesity hypoventilation syndrome and obstructive sleep apnea Recent urinary tract infection Recent CTA is negative for pulmonary embolism Recent mechanical fall and chronic back pain and chronic pain syndrome History of CHF with diastolic dysfunction chronic GERD History of DC degenerative joint disease Urinary incontinence chronic Hypothyroidism Morbid obesity BMI 67 DVT prophylaxis with heparin subcu Plan: Patient will be continued on steroids which will be changed to by mouth. No evidence of wheezing today. Continue with the DuoNeb's and pain medications in the form of [place] 10 as per her home dose. Continue the current medications and follow closely. Anticipate discharge next 24 hours with more clinical improvement. Prognosis is guarded with multiple medical problems and comorbid conditions. Time with Patient: Greater than 30
--- NOTE | 2018-05-26 23:38 | P.DS ---
Providers Date of admission: 05/24/18 16:38 Expected date of discharge: 05/26/18 Attending physician: Carine Miller Consults: 05/24/18 16:38 Consult Physician Routine Consulting Provider: Peter Howard Consult Reason/Comments: COPD Do you want consulting provider notified?: Yes Primary care physician: [facility] Course: Discharge diagnosis Chronic persistent asthma. Improving clinically.. Shortness breath secondary to acute COPD exacerbation and asthma Dysphagia with history of Scales's esophagitis. EGD on 05/20/2018 negative for any stricture or Scales's esophagitis. Obesity with possible obesity hypoventilation syndrome and obstructive sleep apnea Recent urinary tract infection Recent CTA is negative for pulmonary embolism Recent mechanical fall and chronic back pain and chronic pain syndrome History of CHF with diastolic dysfunction chronic GERD History of AR degenerative joint disease Urinary incontinence chronic Hypothyroidism Morbid obesity BMI 67 DVT prophylaxis with heparin subcu Hospital course Patient is a 68-year-old female with known history of COPD, CHF with diastolic dysfunction, morbid obesity and obesity hypoventilation syndrome, chronic pain and pain syndrome and chronic back pain and history of recent fall and multiple other medical problems and frequent previous admissions came to ER with complaints of shortness of breath came to ER with complaints of shortness of breath last night which is progressively getting worse and not responding to her breathing treatments at home. Patient is also complaining of bilateral leg swelling. Patient called her pulmonary physician Dr. Howard and was recommended to come to the hospital. No complaints of fever or chills. Does have cough without sputum production. No complaints of chest pain. No headache or dizziness or lightheadedness. She also feels like she is getting fluid overloaded. Patient says that she's trying to lose weight by controlling her diet. Patient was recently discharged from hospital and was treated for E. coli and Proteus urinary tract infection. Patient was complaining of choking-like feeling with solid foods and is also complaining of dysphagia. Patient says that she has a history of Scales's esophagitis during previous EGD. Patient had EGD during recent admission showed no evidence of Scales's esophagus of obstruction or peptic ulcer disease. Chest x-ray showed no acute process. EKG showed normal sinus rhythm. 05/25/2018 Patient says that her breathing is better. No complaints of chest pain. Patient is requesting to increase her pain medications. Potassium level was 5.5 today. Kayexalate was ordered. Otherwise no acute overnight issues. No fever no chills. No nausea vomiting or abdominal pain. No diarrhea or dysuria. 05/26/2018 Presents status is much improved now. Patient wants to be discharged home. Otherwise potassium was 5.5 yesterday. Kayexalate dose was given. Patient refused lab workup this morning. No other acute overnight issues. No cough or sputum production. Patient is fairly stable to be discharged home. Plan: Patient was continued on IV steroids which have been changed to by mouth in the form of prednisone. Continue with tapering dose. Continue with breathing treatments and recommended to follow with primary care physician pulmonary clinic as an outpatient. Patient is otherwise saturating well on room air at 95 %. Does not require home oxygen. Patient was discharged home in stable condition. Discharge physical examination was done and vitals reviewed. Vital Signs - 24 hr 05/25/18 05/26/18 05/26/18 23:51 00:00 04:00 Temperature 98.0 F Pulse Rate [ 85 78 78 Pulse Oximetery ] Respiratory 15 16 16 Rate Blood Pressure 119/72 [Left Arm] O2 Sat by Pulse 99 Oximetry 05/26/18 05/26/18 05/26/18 04:46 07:23 08:00 Temperature 98.0 F 98.4 F Pulse Rate [ 73 83 83 Pulse Oximetery ] Respiratory 15 16 16 Rate Blood Pressure 128/76 145/86 [Left Arm] O2 Sat by Pulse 96 95 Oximetry Patient Condition at Discharge: Stable Plan - Discharge Summary Discharge Rx Participant: No New Discharge Prescriptions: New Ipratropium-Albuterol Nebulize [Duoneb 0.5 mg-3 mg/3 ml Soln] 3 ml INHALATION RT-QID ampul.neb Continue Levothyroxine Sodium [Synthroid] 100 mcg PO DAILY Pramipexole [Mirapex] 0.25 mg PO HS Pregabalin [Lyrica] 50 mg PO TID #9 cap LORazepam [Ativan] 0.5 mg PO TID PRN #9 tab PRN Reason: Anxiety Omeprazole [PriLOSEC] 20 mg PO AC-BID Albuterol Inhaler [Ventolin Hfa Inhaler] 1 - 2 puff INHALATION RT-Q6H PRN PRN Reason: Shortness Of Breath Furosemide [Lasix] 40 mg PO DAILY HYDROcodone/APAP 10-325MG [[place] 10-325] 1 tab PO QID predniSONE See Taper PO DAILY Discharge Medication List Levothyroxine Sodium [Synthroid] 100 mcg PO DAILY 11/10/17 [History] Pramipexole [Mirapex] 0.25 mg PO HS 01/23/18 [History] LORazepam [Ativan] 0.5 mg PO TID PRN #9 tab 03/24/18 [Rx] Pregabalin [Lyrica] 50 mg PO TID #9 cap 03/24/18 [Rx] Albuterol Inhaler [Ventolin Hfa Inhaler] 1 - 2 puff INHALATION RT-Q6H PRN [History] Omeprazole [PriLOSEC] 20 mg PO AC-BID 04/19/18 [History] Furosemide [Lasix] 40 mg PO DAILY 05/17/18 [History] HYDROcodone/APAP 10-325MG [[place] 10-325] 1 tab PO QID 05/17/18 [History] predniSONE See Taper PO DAILY 05/24/18 [History] Ipratropium-Albuterol Nebulize [Duoneb 0.5 mg-3 mg/3 ml Soln] 3 ml INHALATION RT -QID ampul.neb 05/26/18 [Rx] Follow up Appointment(s)/Referral(s): Jorje Domingo MD [Primary Care Provider] - 1-2 days Activity/Diet/Wound Care/Special Instructions: [place] [facility] transportation: #[phone] Discharge Disposition: HOME SELF-CARE
--- NOTE | 2018-06-01 14:37 | CDI ---
Outpatient Documentation Clarification Form Date: 06-01-18 CDS/Car [place] Name: YUMIKO LAM Phone: If any questions, call Anel Wooten Rn Concurrent Review at [phone] Patient Name: BRIONNA FRIEDMAN Admit Date: 05-24-18 Discharge Date: 05-26-18 ATTENTION: The [facility] Coding Staff appreciate your assistance in clarifying documentation. Please respond to the clarification below the line at the bottom and electronically sign. The [facility] Coding staff will review the response and follow-up if needed. Please note: Queries are made part of the Legal Health Record. If you have any questions, please contact the Rn Concurrent Review. Dear Dr. DEL TORO, 1. PLEASE SPECIFY DEGREE OF CHRONIC PERSISTENT ASTHMA BELOW THE LINE. IE: MILD MODERATE SEVERE 2. PLEASE ADD DIAGNOSIS OF HYPERKALEMIA IF APPLICABLE BELOW THE LINE. PT'S POTASSIUM ELEVATED, TREATED WITH KAYEXALATE. Moderate persistent Thank you for your kind consideration. MTDD
== END 2018-05-26 11:27 | disposition home or self-care (01) ==
LOC: EC 13:07 → 1SOBS 16:38
PROVIDERS: ADMIT Hospitalist; ATTEND Hospitalist
DX: R06.02 Shortness of breath (principal); J44.1 Chronic obstructive pulmonary disease with (acute) exacerbation; J45.40 Moderate persistent asthma, uncomplicated; R13.10 Dysphagia, unspecified; K22.70 Barrett's esophagus without dysplasia; Z68.44 Body mass index [BMI] 60.0-69.9, adult; E66.01 Morbid (severe) obesity due to excess calories; E03.9 Hypothyroidism, unspecified; R32 Unspecified urinary incontinence; M19.90 Unspecified osteoarthritis, unspecified site; I25.2 Old myocardial infarction; K21.9 Gastro-esophageal reflux disease without esophagitis; I50.32 Chronic diastolic (congestive) heart failure; G89.4 Chronic pain syndrome; M79.89 Other specified soft tissue disorders; Z87.440 Personal history of urinary (tract) infections; Z87.01 Personal history of pneumonia (recurrent); K52.9 Noninfective gastroenteritis and colitis, unspecified; Z79.899 Other long term (current) drug therapy; Z79.890 Hormone replacement therapy; Z88.5 Allergy status to narcotic agent; Z88.8 Allergy status to other drugs, medicaments and biological substances; Z91.048 Other nonmedicinal substance allergy status; Z82.49 Family history of ischemic heart disease and other diseases of the circulatory system; Z82.3 Family history of stroke; Z80.1 Family history of malignant neoplasm of trachea, bronchus and lung; Z80.52 Family history of malignant neoplasm of bladder; Z87.891 Personal history of nicotine dependence; Z87.19 Personal history of other diseases of the digestive system; Z86.19 Personal history of other infectious and parasitic diseases; M54.9 Dorsalgia, unspecified; Z87.11 Personal history of peptic ulcer disease; N28.9 Disorder of kidney and ureter, unspecified; R09.02 Hypoxemia; G47.33 Obstructive sleep apnea (adult) (pediatric); Z91.19 Patient's noncompliance with other medical treatment and regimen; Z85.42 Personal history of malignant neoplasm of other parts of uterus; Z87.442 Personal history of urinary calculi; R20.2 Paresthesia of skin; R20.0 Anesthesia of skin; Z79.891 Long term (current) use of opiate analgesic; Z91.041 Radiographic dye allergy status; R73.9 Hyperglycemia, unspecified; F32.9 Major depressive disorder, single episode, unspecified; F41.9 Anxiety disorder, unspecified; Z84.89 Family history of other specified conditions; D72.829 Elevated white blood cell count, unspecified; R60.1 Generalized edema; F41.1 Generalized anxiety disorder
CPT/HCPCS: 99285; 96374 ×2; 96375 ×4; 96376 ×4; 36415; 94640 ×3; 93005; 83880; 80053; 80048; 82550; 82553; 83735; 84484; 85025 ×2; 87324; 83036; 71046; G0378 ×3; J2270; J2930 ×2; J2405; J1170; J7512 ×2

== ENCOUNTER 2018-06-18 07:21 | Inpatient (IN) | payer MEDICARE, OTHER ==
[2018-06-18 08:21] LABS: Basophils % (A) 0 %; Eosinophils # (A) 0.1 k/uL (0-0.7); Eosinophils % (A) 2 %; HCT 34.4 % (34.0-46.0); HGB 11.5 gm/dL (11.4-16.0); Lymphocytes # (A) 1.2 k/uL (1.0-4.8); Lymphocytes % (A) 19 %; MCH 26.8 pg (25.0-35.0); MCHC 33.6 g/dL (31.0-37.0); MCV 79.8 fL (80.0-100.0); Mean Platelet Volume 6.3; Monocytes # (A) 0.4 k/uL (0-1.0); Monocytes % (A) 6 %; Neutrophils # (A) 4.6 k/uL (1.3-7.7); Neutrophils % (A) 70 %; Platelet Count 418 k/uL (150-450); RBC 4.31 m/uL (3.80-5.40); RDW 15.9 % (11.5-15.5); WBC 6.5 k/uL (3.8-10.6)
[2018-06-18 08:33] LABS: ALT 27 U/L (9-52); AST 21 U/L (14-36); Albumin 3.8 g/dL (3.5-5.0); Alkaline Phosphatase 94 U/L (38-126); Anion Gap 10 mmol/L; Blood Urea Nitrogen 11 mg/dL (7-17); Calcium 9.1 mg/dL (8.4-10.2); Carbon Dioxide 26 mmol/L (22-30); Chloride 102 mmol/L (98-107); Glucose 122 mg/dL (74-99); Potassium 3.4 mmol/L (3.5-5.1); Sodium 138 mmol/L (137-145); Total Bilirubin 0.8 mg/dL (0.2-1.3); Total Protein 6.3 g/dL (6.3-8.2)
[2018-06-18] MEDS ORDERED: ONDANSETRON 4 MG/2 ML VIAL IVP STA (09:49)
[2018-06-18] MEDS ORDERED: MORPHINE SULFATE 4 MG/ML SYRINGE IVP STA (09:57)
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
[2018-06-18] MEDS ORDERED: HYDROmorphone 1 MG/ML 1 ML SYRINGE IVP STA (10:59)
--- NOTE | 2018-06-18 11:43 | CT ---
EXAMINATION TYPE: CT abdomen pelvis wo con DATE OF EXAM: 06/18/2018 COMPARISON: 03/19/2018 HISTORY: Nausea, Vomiting, Diarrhea CT DLP: 1791.4 mGycm Automated exposure control for dose reduction was used. TECHNIQUE: Helical acquisition of images was performed from the lung bases through the pelvis. FINDINGS: LUNG BASES: No significant abnormality is appreciated. LIVER/GB: No significant abnormality is appreciated. PANCREAS: There may be minimal ill-definition of the fat surrounding the pancreatic head which be cor related with serum enzymes. SPLEEN: No significant abnormality is seen. ADRENALS: No significant abnormality is seen. KIDNEYS: No significant abnormality is seen. URINARY BLADDER: No significant abnormality is seen. PELVIC ADENOPATHY: None visualized. OSSEOUS STRUCTURES: Hypertrophic and degenerative change of the vertebral column. Postsurgical chanel e involving the left hip. Arthropathy of the right hip noted. BOWEL: Diverticulosis of the colon no CT evidence of diverticulitis. Stomach is decompressed and allen ited in assessment. Bowel gas pattern nonspecific with no diagnostic evidence of obstruction. Artifac t from the left hip prostheses obscures evaluation of the bladder and pelvis. Previous hysterectomy s uspected. OTHER: There is a right lateral anterior abdominal wall hernia but no evidence of obstruction. IMPRESSION: 1. Nonspecific abdomen with no diagnostic evidence of obstruction. 2. Colonic diverticulosis. 3. Right lateral anterior abdominal wall hernia. 4. Slight ill definition of the fat surrounding the pancreatic head may be related to partial volume averaging. Correlate with serum enzymes to exclude early pancreatitis.
[2018-06-18 12:31] LABS: Amylase 31 U/L (30-110); Lipase 80 U/L (23-300)
[2018-06-18] MEDS ORDERED: NALOXONE 0.4 MG/ML 1 ML VIAL IV PRN (12:48)
[2018-06-18] MEDS ORDERED: POTASSIUM CHLORIDE ER 20 MEQ TAB.ER PO STA (12:50)
[2018-06-18] MEDS: SODIUM CHLORIDE 0.9% 1,000 ML IV SCH (13:01)
[2018-06-18] MEDS: HYDROmorphone 1 MG/ML 1 ML SYRINGE IVP PRN ×4 (14:17→23:55)
[2018-06-18] MEDS: ONDANSETRON 4 MG/2 ML VIAL IVP PRN ×2 (14:54→23:56)
[2018-06-18] MEDS ORDERED: guaiFENesin 600 MG TABLET.ER PO PRN (23:46)
[2018-06-18] MEDS ORDERED: IPRATROPIUM-ALBUTEROL 3 ML NEB INHALATION PRN (23:47)
[2018-06-18] MEDS ORDERED: QUEtiapine 25 MG TAB PO STA (23:49)
[2018-06-19] MEDS: SODIUM CHLORIDE 0.9% 1,000 ML IV SCH ×3 (00:33→16:00)
[2018-06-19] MEDS: HEPARIN SODIUM,PORCINE 5,000 UNIT/ML 1 ML VIAL SQ SCH ×3 (00:36→17:11)
[2018-06-19] MEDS: HYDROmorphone 1 MG/ML 1 ML SYRINGE IVP PRN ×6 (03:56→21:59)
[2018-06-19] MEDS: LEVOTHYROXINE 75 MCG TAB PO SCH (05:24)
[2018-06-19] MEDS: PANTOPRAZOLE 40 MG TABLET PO SCH ×2 (07:58→08:12)
[2018-06-19] MEDS: PREGABALIN 50 MG CAP PO SCH (08:02)
[2018-06-19] MEDS: ONDANSETRON 4 MG/2 ML VIAL IVP PRN ×2 (08:03→15:23)
[2018-06-19 08:54] LABS: Anisocytosis Slight; Basophils # (A) 0.1 k/uL (0-0.2); Basophils % (A) 1 %; Eosinophils # (A) 0.3 k/uL (0-0.7); Eosinophils % (A) 5 %; HCT 32.4 % (34.0-46.0); HGB 11.1 gm/dL (11.4-16.0); Lymphocytes # (A) 1.5 k/uL (1.0-4.8); Lymphocytes % (A) 23 %; MCH 27.6 pg (25.0-35.0); MCHC 34.2 g/dL (31.0-37.0); MCV 80.8 fL (80.0-100.0); Mean Platelet Volume 7.5; Monocytes # (A) 0.5 k/uL (0-1.0); Monocytes % (A) 7 %; Neutrophils # (A) 4.1 k/uL (1.3-7.7); Neutrophils % (A) 62 %; Platelet Count 341 k/uL (150-450); RBC 4.01 m/uL (3.80-5.40); RDW 16.3 % (11.5-15.5); WBC 6.6 k/uL (3.8-10.6)
[2018-06-19] MEDS ORDERED: FUROSEMIDE 40 MG TAB PO SCH (09:00)
[2018-06-19] MEDS ORDERED: PANTOPRAZOLE 40 MG/10 ML VIAL IV SCH (09:00)
[2018-06-19] MEDS ORDERED: HYDROmorphone 1 MG/ML 1 ML SYRINGE IVP STA (11:15)
[2018-06-19 15:41] VITALS: BMI 47.2
[2018-06-19 16:55] LABS: Appearance,Urine Cloudy (Clear); Bacteria,Urine Occasional /hpf; Bilirubin,Urine Negative (Negative); Blood,Urine Negative (Negative); Color,Urine Yellow; Glucose,Urine (UA) Negative (Negative); Ketones,Urine Negative (Negative); Leukocyte Esterase,Urine Large (Negative); Mucus,Urine Few /hpf; Nitrite,Urine Positive (Negative); PH, Urine 5.5 (5.0-8.0); Protein,Urine Trace (Negative); RBC,Urine 4 /hpf (0-5); Specific Gravity,Urine 1.013 (1.001-1.035); Squamous Epithelial Cell,Urine 5 /hpf (0-4); Urobilinogen,Urine <2.0 mg/dL (<2.0)
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
--- NOTE | 2018-06-19 17:11 | P.PN ---
Subjective Progress Note Date: 06/19/18 Principal diagnosis: Acute viral gastroenteritis Acute urinary tract infection Patient is a 68-year-old female with known history of COPD, CHF with diastolic dysfunction, morbid obesity and obesity hypoventilation syndrome, chronic pain and pain syndrome and chronic back pain and history of recent fall and multiple other medical problems and frequent previous admissions came to ER with complaints of nausea and vomiting and unable to tolerate oral diet for the past 1 week. Patient was also having loose stools as well. Otherwise denied any complaints of shortness of breath. No chest pain. Patient does have abdominal pain mainly right lower quadrant. Denied any hematemesis or melena. Denied any NSAID use at home. Patient was on steroids previously but which was stopped during last admission. No fever no chills. No headache or dizziness or lightheadedness. Patient recently had EGD which showed small hiatal hernia and no evidence of esophagitis. Patient otherwise denied any dysuria or hematuria. Patient is complaining of pain and is requesting IV pain medications. Patient does have a history of E. coli and Proteus urinary tract infection previously CT of abdomen pelvis showed nonspecific abdomen with no diagnostic evidence of obstruction. Colonic diverticulosis. Right lateral anterior abdominal wall hernia. Slight ill-definition of the fat surrounding the pancreatic head may be related to the partial volume averaging. Lipase is not elevated. 06/19/2018 Patient is still complaining of abdominal pain and is requesting IV pain medications to be increased. Still having nausea and episodes of vomiting and not tolerating oral diet. No fever no chills. UA showed nitrite positive and large leukocyte esterase with WBC greater than 116. Patient will be started on antibiotics of ceftriaxone and follow-up urine culture. Otherwise no fever no chills. No chest pain or shortness of breath. No headache or dizziness or lightheadedness. Current medications reviewed. Active Medications Albuterol/Ipratropium (Duoneb 0.5 Mg-3 Mg/3 Ml Soln) 3 ml INHALATION RT-QID PRN PRN Reason: Shortness Of Breath Or Wheezing Guaifenesin (Mucinex) 600 mg PO Q12H PRN PRN Reason: Congestion Heparin Sodium (Porcine) (Heparin) 5,000 unit SQ Q8HR BRETT Last Admin: 06/19/18 08:02 Dose: 5,000 unit Hydromorphone HCl (Dilaudid) 0.5 mg IVP Q3HR PRN PRN Reason: Moderate Pain Last Admin: 06/19/18 14:41 Dose: 0.5 mg Hydromorphone HCl (Dilaudid) 1 mg IVP Q4HR PRN PRN Reason: SEVERE PAIN Sodium Chloride (Saline 0.9%) 1,000 mls @ 100 mls/hr IV .Q10H [facility] Last Admin: 06/19/18 16:00 Dose: Not Given Ceftriaxone Sodium 1,000 mg/ (Sodium Chloride) 50 mls @ 100 mls/hr IVPB Q24HR [facility] Levothyroxine Sodium (Synthroid) 150 mcg PO DAILY@0630 [facility] Last Admin: 06/19/18 05:24 Dose: Not Given Melatonin (Melatonin) 10 mg PO HS [facility] Naloxone HCl (Narcan) 0.2 mg IV Q2M PRN PRN Reason: Opioid Reversal Ondansetron HCl (Zofran) 4 mg IVP Q8HR PRN PRN Reason: Nausea And Vomiting Last Admin: 06/19/18 15:23 Dose: 4 mg Pantoprazole Sodium (Protonix) 40 mg PO AC-BID [facility] Last Admin: 06/19/18 08:12 Dose: Not Given Pramipexole Dihydrochloride (Mirapex) 0.25 mg PO HS [facility] Pregabalin (Lyrica) 50 mg PO DAILY [facility] Last Admin: 06/19/18 08:02 Dose: Not Given Quetiapine Fumarate (Seroquel) 25 mg PO HS [facility] Objective - Vital Signs Vital signs: Vital Signs Temp 97 F L 06/19/18 14:38 Pulse 87 06/19/18 14:38 Resp 22 06/19/18 14:38 BP 137/82 06/19/18 14:38 Pulse Ox 95 06/19/18 14:38 Intake & Output 06/18/18 06/19/18 06/19/18 18:59 06:59 18:59 Intake Total 1440 800 Output Total 200 Balance 1240 800 Weight 117.027 kg 117.027 kg Intake: Intake, IV Titration 1440 800 Amount Sodium Chloride 0.9% 1, 1440 800 000 ml @ 100 mls/hr IV . Q10H [facility] Rx#:[id number] Output: Urine 200 Other: # Voids 2 # Bowel Movements 1 - Exam PHYSICAL EXAMINATION: Patient is lying in the bed comfortably, no acute distress, awake alert and oriented.. HEENT: Normocephalic. Neck is supple. Pupils reactive. Nostrils clear. Oral cavity is moist. Ears reveal no drainage. Neck reveals no JVD, carotid bruits, or thyromegaly. CHEST EXAMINATION: Trachea is central. Symmetrical expansion. Lung bah clear to auscultation and percussion. CARDIAC: Normal S1, S2 with no gallops. No murmurs ABDOMEN: Soft. Nontender abdomen. Bowel sounds normal. No organomegaly. No abdominal bruits. Extremities: reveal no edema. No clubbing or cyanosis Neurologically awake, alert, oriented x3 with well-coordinated movements. No focal deficits noted Skin: No rash or skin lesions. Psychiatric: Coperative. Nonsuicidal Musculoskeletal: No joint swelling or deformity. Normal range of motion. - Labs CBC & Chem 7: 06/19/18 07:41 06/18/18 08:00 Labs: Abnormal Lab Results - Last 24 Hours (Table) 06/19/18 06/19/18 Range/Units 07:41 15:00 Hgb 11.1 L (11.4-16.0) gm/dL Hct 32.4 L (34.0-46.0) % RDW 16.3 H (11.5-15.5) % Urine Appearance Cloudy H (Clear) Urine Protein Trace H (Negative) Urine Nitrite Positive H (Negative) Ur Leukocyte Esterase Large H (Negative) Urine WBC 116 H (0-5) /hpf Ur Squamous Epith Cells 5 H (0-4) /hpf Urine Bacteria Occasional H (None) /hpf Urine Mucus Few H (None) /hpf Assessment and Plan Assessment: Nausea vomiting and diarrhea along with abdominal pain. Likely due to viral gastroenteritis. C. diff negative. Acute urinary tract infection Chronic persistent asthma. Stable now.. COPD stable. Dysphagia with history of Scales's esophagitis. EGD on 05/20/2018 negative for any stricture or Scales's esophagitis. Showed small hiatal hernia. Obesity with possible obesity hypoventilation syndrome and obstructive sleep apnea Recent urinary tract infection Recent CTA is negative for pulmonary embolism Recent mechanical fall and chronic back pain and chronic pain syndrome History of CHF with diastolic dysfunction chronic GERD History of MS degenerative joint disease Urinary incontinence chronic Hypothyroidism Morbid obesity BMI 67 DVT prophylaxis with heparin subcu Plan: Patient be continued on IV fluids, normal saline and pain management with Dilaudid IV. Continue with symptomatic management for nausea and vomiting. C. diff toxin is negative. Follow-up urine culture report. And with antibiotics in the form of ceftriaxone. Continue with the home blood pressure medications and breathing treatments. Hold Lasix due to patient not eating well. Follow closely. Further recommendations based on the clinical course. Prognosis is guarded with multiple medical problems and comorbid conditions. Time with Patient: Greater than 30
[2018-06-19] MEDS: PRAMIPEXOLE 0.25 MG TAB PO SCH (20:35)
[2018-06-19] MEDS: QUEtiapine 25 MG TAB PO SCH (20:35)
[2018-06-19] MEDS: MELATONIN 5 MG TABLET PO SCH (20:37)
[2018-06-20] MEDS: SODIUM CHLORIDE 0.9% 1,000 ML IV SCH ×4 (03:39→23:44)
[2018-06-20] MEDS: HEPARIN SODIUM,PORCINE 5,000 UNIT/ML 1 ML VIAL SQ SCH ×4 (03:39→22:46)
[2018-06-20] MEDS: ONDANSETRON 4 MG/2 ML VIAL IVP PRN ×2 (03:46→17:50)
[2018-06-20] MEDS: HYDROmorphone 1 MG/ML 1 ML SYRINGE IVP PRN ×6 (03:47→22:45)
[2018-06-20] MEDS: LEVOTHYROXINE 75 MCG TAB PO SCH (07:21)
[2018-06-20] MEDS: PANTOPRAZOLE 40 MG TABLET PO SCH ×2 (08:23→17:50)
[2018-06-20] MEDS: PREGABALIN 50 MG CAP PO SCH (08:24)
[2018-06-20] MEDS: DEXTROSE 5%-0.9% NACL 1,000 ML IV SCH ×2 (15:15→22:47)
[2018-06-20] MEDS: QUEtiapine 25 MG TAB PO SCH (21:31)
[2018-06-20] MEDS: PRAMIPEXOLE 0.25 MG TAB PO SCH (21:31)
[2018-06-20] MEDS: MELATONIN 5 MG TABLET PO SCH (21:31)
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
--- NOTE | 2018-06-21 01:52 | P.PN ---
Subjective Progress Note Date: 06/20/18 Principal diagnosis: Acute viral gastroenteritis Acute urinary tract infection Patient is a 68-year-old female with known history of COPD, CHF with diastolic dysfunction, morbid obesity and obesity hypoventilation syndrome, chronic pain and pain syndrome and chronic back pain and history of recent fall and multiple other medical problems and frequent previous admissions came to ER with complaints of nausea and vomiting and unable to tolerate oral diet for the past 1 week. Patient was also having loose stools as well. Otherwise denied any complaints of shortness of breath. No chest pain. Patient does have abdominal pain mainly right lower quadrant. Denied any hematemesis or melena. Denied any NSAID use at home. Patient was on steroids previously but which was stopped during last admission. No fever no chills. No headache or dizziness or lightheadedness. Patient recently had EGD which showed small hiatal hernia and no evidence of esophagitis. Patient otherwise denied any dysuria or hematuria. Patient is complaining of pain and is requesting IV pain medications. Patient does have a history of E. coli and Proteus urinary tract infection previously CT of abdomen pelvis showed nonspecific abdomen with no diagnostic evidence of obstruction. Colonic diverticulosis. Right lateral anterior abdominal wall hernia. Slight ill-definition of the fat surrounding the pancreatic head may be related to the partial volume averaging. Lipase is not elevated. 06/19/2018 Patient is still complaining of abdominal pain and is requesting IV pain medications to be increased. Still having nausea and episodes of vomiting and not tolerating oral diet. No fever no chills. UA showed nitrite positive and large leukocyte esterase with WBC greater than 116. Patient will be started on antibiotics of ceftriaxone and follow-up urine culture. Otherwise no fever no chills. No chest pain or shortness of breath. No headache or dizziness or lightheadedness. 06/20/2018 Patient is still complaining of abdominal pain mainly right lower quadrant. Patient is unable to tolerate oral diet. Still having nausea and episodes of vomiting. Continued on IV pain medications in the form of Dilaudid. Continue with IV fluids. GI is following. Urine culture is growing gram-negative bacilli. Continued on ceftriaxone. Denied any complaints of chest pain or shortness of breath. No fever no chills. No headache or dizziness or lightheadedness. C. diff toxin is negative. IV fluids will be changed to D5 normal saline. Current medications reviewed. Active Medications Albuterol/Ipratropium (Duoneb 0.5 Mg-3 Mg/3 Ml Soln) 3 ml INHALATION RT-QID PRN PRN Reason: Shortness Of Breath Or Wheezing Guaifenesin (Mucinex) 600 mg PO Q12H PRN PRN Reason: Congestion Heparin Sodium (Porcine) (Heparin) 5,000 unit SQ Q8HR [facility] Last Admin: 06/19/18 08:02 Dose: 5,000 unit Hydromorphone HCl (Dilaudid) 0.5 mg IVP Q3HR PRN PRN Reason: Moderate Pain Last Admin: 06/19/18 14:41 Dose: 0.5 mg Hydromorphone HCl (Dilaudid) 1 mg IVP Q4HR PRN PRN Reason: SEVERE PAIN Sodium Chloride (Saline 0.9%) 1,000 mls @ 100 mls/hr IV .Q10H [facility] Last Admin: 06/19/18 16:00 Dose: Not Given Ceftriaxone Sodium 1,000 mg/ (Sodium Chloride) 50 mls @ 100 mls/hr IVPB Q24HR [facility] Levothyroxine Sodium (Synthroid) 150 mcg PO DAILY@0630 [facility] Last Admin: 06/19/18 05:24 Dose: Not Given Melatonin (Melatonin) 10 mg PO HS [facility] Naloxone HCl (Narcan) 0.2 mg IV Q2M PRN PRN Reason: Opioid Reversal Ondansetron HCl (Zofran) 4 mg IVP Q8HR PRN PRN Reason: Nausea And Vomiting Last Admin: 06/19/18 15:23 Dose: 4 mg Pantoprazole Sodium (Protonix) 40 mg PO AC-BID [facility] Last Admin: 06/19/18 08:12 Dose: Not Given Pramipexole Dihydrochloride (Mirapex) 0.25 mg PO [facility] Pregabalin (Lyrica) 50 mg PO DAILY [facility] Last Admin: 06/19/18 08:02 Dose: Not Given Quetiapine Fumarate (Seroquel) 25 mg PO [facility] Objective - Vital Signs Vital signs: Vital Signs Temp 98.2 F 06/20/18 15:00 Pulse 82 06/20/18 15:00 Resp 20 06/20/18 15:00 BP 150/79 06/20/18 15:00 Pulse Ox 98 06/20/18 15:00 Intake & Output 06/19/18 06/20/18 06/20/18 18:59 06:59 18:59 Intake Total 800 Balance 800 Weight 117.027 kg Intake: Intake, IV Titration 800 Amount Sodium Chloride 0.9% 1, 800 000 ml @ 100 mls/hr IV . Q10H [facility] Rx#:[id number] Other: # Voids 1 2 # Bowel Movements 1 - Exam PHYSICAL EXAMINATION: Patient is lying in the bed comfortably, no acute distress, awake alert and oriented.. HEENT: Normocephalic. Neck is supple. Pupils reactive. Nostrils clear. Oral cavity is moist. Ears reveal no drainage. Neck reveals no JVD, carotid bruits, or thyromegaly. CHEST EXAMINATION: Trachea is central. Symmetrical expansion. Lung bah clear to auscultation and percussion. CARDIAC: Normal S1, S2 with no gallops. No murmurs ABDOMEN: Soft. Nontender abdomen. Bowel sounds normal. No organomegaly. No abdominal bruits. Extremities: reveal no edema. No clubbing or cyanosis Neurologically awake, alert, oriented x3 with well-coordinated movements. No focal deficits noted Skin: No rash or skin lesions. Psychiatric: Coperative. Nonsuicidal Musculoskeletal: No joint swelling or deformity. Normal range of motion. - Labs CBC & Chem 7: 06/19/18 07:41 06/18/18 08:00 Labs: Abnormal Lab Results - Last 24 Hours (Table) 06/19/18 Range/Units 15:00 Urine Appearance Cloudy H (Clear) Urine Protein Trace H (Negative) Urine Nitrite Positive H (Negative) Ur Leukocyte Esterase Large H (Negative) Urine WBC 116 H (0-5) /hpf Ur Squamous Epith Cells 5 H (0-4) /hpf Urine Bacteria Occasional H (None) /hpf Urine Mucus Few H (None) /hpf Microbiology - Last 24 Hours (Table) 06/19/18 15:00 Urine Culture - Preliminary Urine,Voided Assessment and Plan Assessment: Nausea vomiting and diarrhea along with abdominal pain. Likely due to viral gastroenteritis. C. diff negative. Acute urinary tract infection with gram-negative bacilli Chronic persistent asthma. Stable now.. COPD stable. Dysphagia with history of Scales's esophagitis. EGD on 05/20/2018 negative for any stricture or Scales's esophagitis. Showed small hiatal hernia. Obesity with possible obesity hypoventilation syndrome and obstructive sleep apnea Recent urinary tract infection Recent CTA is negative for pulmonary embolism Recent mechanical fall and chronic back pain and chronic pain syndrome History of CHF with diastolic dysfunction chronic GERD History of [place] degenerative joint disease Urinary incontinence chronic Hypothyroidism Morbid obesity BMI 67 DVT prophylaxis with heparin subcu Plan: Patient be continued on IV fluids, normal saline and pain management with Dilaudid IV. Continue with symptomatic management for nausea and vomiting. C. diff toxin is negative. Follow-up urine culture final report. And with antibiotics in the form of ceftriaxone. Continue with the home blood pressure medications and breathing treatments. Hold Lasix due to patient not eating well. Follow closely. Further recommendations based on the clinical course. Prognosis is guarded with multiple medical problems and comorbid conditions. Time with Patient: Greater than 30
[2018-06-21] MEDS: ONDANSETRON 4 MG/2 ML VIAL IVP PRN ×3 (03:39→16:09)
[2018-06-21] MEDS: HYDROmorphone 1 MG/ML 1 ML SYRINGE IVP PRN ×5 (03:39→20:04)
[2018-06-21] MEDS: LEVOTHYROXINE 75 MCG TAB PO SCH (05:09)
[2018-06-21] MEDS: HEPARIN SODIUM,PORCINE 5,000 UNIT/ML 1 ML VIAL SQ SCH ×2 (07:39→16:02)
[2018-06-21] MEDS: PREGABALIN 50 MG CAP PO SCH ×2 (07:39→07:46)
[2018-06-21] MEDS: PANTOPRAZOLE 40 MG TABLET PO SCH ×2 (07:39→16:02)
[2018-06-21] MEDS: DEXTROSE 5%-0.9% NACL 1,000 ML IV SCH ×2 (07:40→09:27)
[2018-06-21] MEDS: ALPRAZolam 0.25 MG TAB PO PRN (09:30)
[2018-06-21 10:16] LABS: Anisocytosis Slight; Basophils % (A) 0 %; Eosinophils # (A) 0.4 k/uL (0-0.7); Eosinophils % (A) 6 %; HCT 33.5 % (34.0-46.0); Lymphocytes # (A) 0.9 k/uL (1.0-4.8); Lymphocytes % (A) 14 %; MCH 26.7 pg (25.0-35.0); MCHC 32.9 g/dL (31.0-37.0); MCV 81.1 fL (80.0-100.0); Mean Platelet Volume 6.8; Monocytes # (A) 0.3 k/uL (0-1.0); Monocytes % (A) 5 %; Neutrophils # (A) 4.8 k/uL (1.3-7.7); Neutrophils % (A) 74 %; Platelet Count 326 k/uL (150-450); RBC 4.13 m/uL (3.80-5.40); RDW 16.2 % (11.5-15.5); WBC 6.5 k/uL (3.8-10.6)
[2018-06-21 10:56] LABS: Anion Gap 6 mmol/L; Blood Urea Nitrogen 3 mg/dL (7-17); Calcium 8.5 mg/dL (8.4-10.2); Carbon Dioxide 25 mmol/L (22-30); Chloride 109 mmol/L (98-107); Glucose 129 mg/dL (74-99); Potassium 3.5 mmol/L (3.5-5.1); Sodium 140 mmol/L (137-145)
--- NOTE | 2018-06-21 15:52 | P.PN ---
Subjective Progress Note Date: 06/21/18 Progress note being dictated for Dr. Miller. Interval history:Patient is a 68-year-old female with known history of COPD, CHF with diastolic dysfunction, morbid obesity and obesity hypoventilation syndrome, chronic pain and pain syndrome and chronic back pain and history of recent fall and multiple other medical problems and frequent previous admissions came to ER with complaints of nausea and vomiting and unable to tolerate oral diet for the past 1 week. Patient was also having loose stools as well. Otherwise denied any complaints of shortness of breath. No chest pain. Patient does have abdominal pain mainly right lower quadrant. Denied any hematemesis or melena. Denied any NSAID use at home. Patient was on steroids previously but which was stopped during last admission. No fever no chills. No headache or dizziness or lightheadedness. Patient recently had EGD which showed small hiatal hernia and no evidence of esophagitis. Patient otherwise denied any dysuria or hematuria. Patient is complaining of pain and is requesting IV pain medications. Patient does have a history of E. coli and Proteus urinary tract infection previously CT of abdomen pelvis showed nonspecific abdomen with no diagnostic evidence of obstruction. Colonic diverticulosis. Right lateral anterior abdominal wall hernia. Slight ill-definition of the fat surrounding the pancreatic head may be related to the partial volume averaging. Lipase is not elevated. 06/19/2018 Patient is still complaining of abdominal pain and is requesting IV pain medications to be increased. Still having nausea and episodes of vomiting and not tolerating oral diet. No fever no chills. UA showed nitrite positive and large leukocyte esterase with WBC greater than 116. Patient will be started on antibiotics of ceftriaxone and follow-up urine culture. Otherwise no fever no chills. No chest pain or shortness of breath. No headache or dizziness or lightheadedness. 06/20/2018 Patient is still complaining of abdominal pain mainly right lower quadrant. Patient is unable to tolerate oral diet. Still having nausea and episodes of vomiting. Continued on IV pain medications in the form of Dilaudid. Continue with IV fluids. GI is following. Urine culture is growing gram-negative bacilli. Continued on ceftriaxone. Denied any complaints of chest pain or shortness of breath. No fever no chills. No headache or dizziness or lightheadedness. C. diff toxin is negative. IV fluids will be changed to D5 normal saline. Review of systems: CONSTITUTIONAL: fatigue. HEENT: No recent visual problems or hearing problems. Denied any sore throat. CARDIOVASCULAR: No chest pain, orthopnea, PND, no palpitations, no syncope. PULMONARY: No shortness of breath, no cough, no hemoptysis. GASTROINTESTINAL: Positive nausea, positive vomiting, RLQ abdominal pain. Normoactive bowel sounds. NEUROLOGICAL: No headaches, no weakness, no numbness. HEMATOLOGICAL: Denies any bleeding or petechiae. GENITOURINARY: Denies any burning micturition, frequency, or urgency. MUSCULOSKELETAl: Generalized diffuse weakness ENDOCRINE: Denies any polyuria or polydipsia. The rest of the 14 point review of systems is negative Active Medications Albuterol/Ipratropium (Duoneb 0.5 Mg-3 Mg/3 Ml Soln) 3 ml INHALATION RT-QID PRN PRN Reason: Shortness Of Breath Or Wheezing Alprazolam (Xanax) 0.25 mg PO BID PRN PRN Reason: Anxiety Last Admin: 06/21/18 09:30 Dose: 0.25 mg Guaifenesin (Mucinex) 600 mg PO Q12H PRN PRN Reason: Congestion Heparin Sodium (Porcine) (Heparin) 5,000 unit SQ Q8HR [facility] Last Admin: 06/21/18 07:39 Dose: 5,000 unit Hydromorphone HCl (Dilaudid) 0.5 mg IVP Q3HR PRN PRN Reason: Moderate Pain Last Admin: 06/19/18 14:41 Dose: 0.5 mg Hydromorphone HCl (Dilaudid) 1 mg IVP Q4HR PRN PRN Reason: SEVERE PAIN Last Admin: 06/21/18 11:55 Dose: 1 mg Sodium Chloride (Saline 0.9%) 1,000 mls @ 100 mls/hr IV .Q10H [facility] Last Admin: 06/20/18 23:44 Dose: Not Given Ceftriaxone Sodium 1,000 mg/ (Sodium Chloride) 50 mls @ 100 mls/hr IVPB Q24HR [facility] Last Admin: 06/21/18 07:44 Dose: 100 mls/hr Dextrose/Sodium Chloride (Dextrose 5%-Ns Iv Soln) 1,000 mls @ 100 mls/hr IV .Q10H [facility] Last Admin: 06/21/18 09:27 Dose: 100 mls/hr Levothyroxine Sodium (Synthroid) 150 mcg PO DAILY@0630 [facility] Last Admin: 06/21/18 05:09 Dose: 150 mcg Melatonin (Melatonin) 10 mg PO [facility] Last Admin: 06/20/18 21:31 Dose: 10 mg Naloxone HCl (Narcan) 0.2 mg IV Q2M PRN PRN Reason: Opioid Reversal Ondansetron HCl (Zofran) 4 mg IVP Q8HR PRN PRN Reason: Nausea And Vomiting Last Admin: 06/21/18 07:31 Dose: 4 mg Pantoprazole Sodium (Protonix) 40 mg PO AC-BID [facility] Last Admin: 06/21/18 07:39 Dose: 40 mg Pramipexole Dihydrochloride (Mirapex) 0.25 mg PO [facility] Last Admin: 06/20/18 21:31 Dose: 0.25 mg Pregabalin (Lyrica) 50 mg PO DAILY [facility] Last Admin: 06/21/18 07:46 Dose: Not Given Quetiapine Fumarate (Seroquel) 25 mg PO [facility] Last Admin: 06/20/18 21:31 Dose: 25 mg 06/21/2018 complains of right lower quadrant abdominal pain, improving. Nauseated with no further emesis. No diarrhea this morning. Denies chest pain , palpitations, increased in shortness of breath. Maintained on Rocephin for acute UTI with gram-negative bacilli. Afebrile, normal WBC. Objective - Vital Signs Vital signs: Vital Signs Temp 98.5 F 06/21/18 07:00 Pulse 80 06/21/18 07:00 Resp 12 06/21/18 07:00 BP 133/83 06/21/18 07:00 Pulse Ox 98 06/21/18 07:00 Intake & Output 06/20/18 06/21/18 06/21/18 18:59 06:59 18:59 Intake Total 1400 Balance 1400 Intake: Intake, IV Titration 1400 Amount Dextrose 5%-0.9% NaCl 1, 1350 000 ml @ 100 mls/hr IV . Q10H [facility] Rx#:[id number] cefTRIAXone 1,000 mg In 50 Sodium Chloride 0.9% 50 ml @ 100 mls/hr IVPB Q24HR [facility] Rx#:[id number] Other: Voiding Method Bedside Commode # Voids 2 2 - Exam Patient is lying in the bed comfortably, no acute distress, awake alert and oriented.. HEENT: Normocephalic. Neck is supple. Pupils reactive. Oral mucosa moist Neck reveals no JVD, carotid bruits, or thyromegaly. CHEST EXAMINATION: Trachea is central. Symmetrical expansion. Lung bah clear to auscultation and percussion. CARDIAC: Normal S1, S2 with no gallops. No murmurs ABDOMEN: Soft. Nontender abdomen. Bowel sounds normal. No organomegaly. Extremities: reveal no edema. No clubbing or cyanosis Neurologically awake, alert, oriented x3 with well-coordinated movements. No focal deficits noted Skin: No rash or skin lesions. - Labs CBC & Chem 7: 06/21/18 09:40 06/21/18 09:40 Labs: Abnormal Lab Results - Last 24 Hours (Table) 06/21/18 06/21/18 Range/Units 09:40 09:40 Hgb 11.0 L (11.4-16.0) gm/dL Hct 33.5 L (34.0-46.0) % RDW 16.2 H (11.5-15.5) % Lymphocytes # 0.9 L (1.0-4.8) k/uL Chloride 109 H (98-107) mmol/L BUN 3 L (7-17) mg/dL Glucose 129 H (74-99) mg/dL Microbiology - Last 24 Hours (Table) 06/19/18 15:00 Urine Culture - Preliminary Urine,Voided Gram Neg Bacilli Assessment and Plan Assessment: Nausea vomiting and diarrhea along with abdominal pain. Likely due to viral gastroenteritis. C. diff negative. Improving. Acute urinary tract infection with gram-negative bacilli Chronic persistent asthma. Stable now.. COPD stable. Dysphagia with history of Scales's esophagitis. EGD on 05/20/2018 negative for any stricture or Scales's esophagitis. Showed small hiatal hernia. Obesity with possible obesity hypoventilation syndrome and obstructive sleep apnea Recent urinary tract infection Recent CTA is negative for pulmonary embolism Recent mechanical fall and chronic back pain and chronic pain syndrome History of CHF with diastolic dysfunction chronic GERD History of [place] degenerative joint disease Urinary incontinence chronic Hypothyroidism Morbid obesity BMI 67 Plan: Continue current medication regime ,monitoring and symptomatic treatment. Diet has been advanced to bland diet. Maintain IV fluid hydration until patient tolerating diet better. No urine culture results pending. Continue with Rocephin. Prognosis guarded given multiple complex medical issues. The impression and plan of care has been dictated as directed. : I performed a history and examination of this patient, discussed the same with the dictator. I agree with the dictator's note ,documented as a scribe. Any additional findings or plans will be noted.
[2018-06-21] MEDS: QUEtiapine 25 MG TAB PO SCH (20:05)
[2018-06-21] MEDS: MELATONIN 5 MG TABLET PO SCH (20:05)
[2018-06-21] MEDS: PRAMIPEXOLE 0.25 MG TAB PO SCH (20:05)
[2018-06-22] MEDS: HYDROmorphone 1 MG/ML 1 ML SYRINGE IVP PRN ×6 (00:26→21:48)
[2018-06-22] MEDS: HEPARIN SODIUM,PORCINE 5,000 UNIT/ML 1 ML VIAL SQ SCH ×3 (00:45→17:05)
[2018-06-22] MEDS: ONDANSETRON 4 MG/2 ML VIAL IVP PRN ×3 (03:31→21:49)
[2018-06-22] MEDS: DEXTROSE 5%-0.9% NACL 1,000 ML IV SCH ×2 (06:21→17:05)
[2018-06-22] MEDS: LEVOTHYROXINE 75 MCG TAB PO SCH (06:22)
[2018-06-22] MEDS: PANTOPRAZOLE 40 MG TABLET PO SCH ×2 (09:21→17:05)
[2018-06-22] MEDS: PREGABALIN 50 MG CAP PO SCH (09:21)
[2018-06-22] MEDS: HYDROcodone/APAP 7.5-325MG 1 EACH TAB PO PRN (14:48)
[2018-06-22] MEDS ORDERED: Potassium Replacement Protocol 1 EACH MISC MISCELLANE PRN (17:05)
--- NOTE | 2018-06-22 17:18 | P.PN ---
Subjective Progress Note Date: 06/22/18 Progress note being dictated for Dr. Miller. Interval history:Patient is a 68-year-old female with known history of COPD, CHF with diastolic dysfunction, morbid obesity and obesity hypoventilation syndrome, chronic pain and pain syndrome and chronic back pain and history of recent fall and multiple other medical problems and frequent previous admissions came to ER with complaints of nausea and vomiting and unable to tolerate oral diet for the past 1 week. Patient was also having loose stools as well. Otherwise denied any complaints of shortness of breath. No chest pain. Patient does have abdominal pain mainly right lower quadrant. Denied any hematemesis or melena. Denied any NSAID use at home. Patient was on steroids previously but which was stopped during last admission. No fever no chills. No headache or dizziness or lightheadedness. Patient recently had EGD which showed small hiatal hernia and no evidence of esophagitis. Patient otherwise denied any dysuria or hematuria. Patient is complaining of pain and is requesting IV pain medications. Patient does have a history of E. coli and Proteus urinary tract infection previously CT of abdomen pelvis showed nonspecific abdomen with no diagnostic evidence of obstruction. Colonic diverticulosis. Right lateral anterior abdominal wall hernia. Slight ill-definition of the fat surrounding the pancreatic head may be related to the partial volume averaging. Lipase is not elevated. 06/19/2018 Patient is still complaining of abdominal pain and is requesting IV pain medications to be increased. Still having nausea and episodes of vomiting and not tolerating oral diet. No fever no chills. UA showed nitrite positive and large leukocyte esterase with WBC greater than 116. Patient will be started on antibiotics of ceftriaxone and follow-up urine culture. Otherwise no fever no chills. No chest pain or shortness of breath. No headache or dizziness or lightheadedness. 06/20/2018 Patient is still complaining of abdominal pain mainly right lower quadrant. Patient is unable to tolerate oral diet. Still having nausea and episodes of vomiting. Continued on IV pain medications in the form of Dilaudid. Continue with IV fluids. GI is following. Urine culture is growing gram-negative bacilli. Continued on ceftriaxone. Denied any complaints of chest pain or shortness of breath. No fever no chills. No headache or dizziness or lightheadedness. C. diff toxin is negative. IV fluids will be changed to D5 normal saline. Review of systems: CONSTITUTIONAL: fatigue. HEENT: No recent visual problems or hearing problems. Denied any sore throat. CARDIOVASCULAR: No chest pain, orthopnea, PND, no palpitations, no syncope. PULMONARY: No shortness of breath, no cough, no hemoptysis. GASTROINTESTINAL: Positive nausea, positive vomiting, RLQ abdominal pain. Normoactive bowel sounds. NEUROLOGICAL: No headaches, no weakness, no numbness. HEMATOLOGICAL: Denies any bleeding or petechiae. GENITOURINARY: Denies any burning micturition, frequency, or urgency. MUSCULOSKELETAl: Generalized diffuse weakness ENDOCRINE: Denies any polyuria or polydipsia. The rest of the 14 point review of systems is negative Active Medications Albuterol/Ipratropium (Duoneb 0.5 Mg-3 Mg/3 Ml Soln) 3 ml INHALATION RT-QID PRN PRN Reason: Shortness Of Breath Or Wheezing Alprazolam (Xanax) 0.25 mg PO BID PRN PRN Reason: Anxiety Last Admin: 06/21/18 09:30 Dose: 0.25 mg Guaifenesin (Mucinex) 600 mg PO Q12H PRN PRN Reason: Congestion Heparin Sodium (Porcine) (Heparin) 5,000 unit SQ Q8HR [facility] Last Admin: 06/21/18 07:39 Dose: 5,000 unit Hydromorphone HCl (Dilaudid) 0.5 mg IVP Q3HR PRN PRN Reason: Moderate Pain Last Admin: 06/19/18 14:41 Dose: 0.5 mg Hydromorphone HCl (Dilaudid) 1 mg IVP Q4HR PRN PRN Reason: SEVERE PAIN Last Admin: 06/21/18 11:55 Dose: 1 mg Sodium Chloride (Saline 0.9%) 1,000 mls @ 100 mls/hr IV .Q10H [facility] Last Admin: 06/20/18 23:44 Dose: Not Given Ceftriaxone Sodium 1,000 mg/ (Sodium Chloride) 50 mls @ 100 mls/hr IVPB Q24HR [facility] Last Admin: 06/21/18 07:44 Dose: 100 mls/hr Dextrose/Sodium Chloride (Dextrose 5%-Ns Iv Soln) 1,000 mls @ 100 mls/hr IV .Q10H [facility] Last Admin: 06/21/18 09:27 Dose: 100 mls/hr Levothyroxine Sodium (Synthroid) 150 mcg PO DAILY@0630 [facility] Last Admin: 06/21/18 05:09 Dose: 150 mcg Melatonin (Melatonin) 10 mg PO [facility] Last Admin: 06/20/18 21:31 Dose: 10 mg Naloxone HCl (Narcan) 0.2 mg IV Q2M PRN PRN Reason: Opioid Reversal Ondansetron HCl (Zofran) 4 mg IVP Q8HR PRN PRN Reason: Nausea And Vomiting Last Admin: 06/21/18 07:31 Dose: 4 mg Pantoprazole Sodium (Protonix) 40 mg PO AC-BID [facility] Last Admin: 06/21/18 07:39 Dose: 40 mg Pramipexole Dihydrochloride (Mirapex) 0.25 mg PO [facility] Last Admin: 06/20/18 21:31 Dose: 0.25 mg Pregabalin (Lyrica) 50 mg PO DAILY [facility] Last Admin: 06/21/18 07:46 Dose: Not Given Quetiapine Fumarate (Seroquel) 25 mg PO [facility] Last Admin: 06/20/18 21:31 Dose: 25 mg 06/21/2018 complains of right lower quadrant abdominal pain, improving. Nauseated with no further emesis. No diarrhea this morning. Denies chest pain , palpitations, increased in shortness of breath. Maintained on Rocephin for acute UTI with gram-negative bacilli. Afebrile, normal WBC. 06/22/2018 consumed 100% of dinner last night , no breakfast this morning .C/O abdominal pain, nauseated, no emesis. Diarrhea improving, once this morning and twice during the night, negative for C. difficile colitis. Afebrile. Maintained on Rocephin. Urine cultures reporting Klebsiella pneumonia. Denies chest pain, palpitations or increasing shortness of breath. Objective - Vital Signs Vital signs: Vital Signs Temp 98.1 F 06/22/18 15:10 Pulse 86 06/22/18 15:10 Resp 16 06/22/18 15:10 BP 138/67 06/22/18 15:10 Pulse Ox 95 06/22/18 15:10 Intake & Output 06/21/18 06/22/18 06/22/18 18:59 06:59 18:59 Intake Total 1600 Balance 1600 Weight 117.027 kg Intake: Intake, IV Titration 1600 Amount Dextrose 5%-0.9% NaCl 1, 1600 000 ml @ 100 mls/hr IV . Q10H [facility] Rx#:[id number] Other: Voiding Method Bedside Commode # Voids 3 1 1 # Bowel Movements 1 1 1 - Exam Patient is sitting up in the bed comfortably, no acute distress, awake alert and oriented.. HEENT: Normocephalic. Neck is supple. Pupils reactive. Oral mucosa moist Neck reveals no JVD, carotid bruits, or thyromegaly. CHEST EXAMINATION: Trachea is central. Symmetrical expansion. Lung bah clear to auscultation and percussion. CARDIAC: Normal S1, S2 with no gallops. No murmurs ABDOMEN: Soft. Nontender abdomen. Bowel sounds normal. No organomegaly. Extremities: reveal no edema. No clubbing or cyanosis Neurologically awake, alert, oriented x3 with well-coordinated movements. No focal deficits noted Skin: No rash or skin lesions. - Labs CBC & Chem 7: 06/21/18 09:40 06/21/18 09:40 Labs: Microbiology - Last 24 Hours (Table) 06/19/18 15:00 Urine Culture - Final Urine,Voided Klebsiella pneumoniae Assessment and Plan Assessment: Nausea vomiting and diarrhea along with abdominal pain. Likely due to viral gastroenteritis. C. diff negative. Improving. Acute urinary tract infection with Klebsiella pneumoniae Chronic persistent asthma. Stable now.. COPD stable. Dysphagia with history of Scales's esophagitis. EGD on 05/20/2018 negative for any stricture or Scales's esophagitis. Showed small hiatal hernia. Obesity with possible obesity hypoventilation syndrome and obstructive sleep apnea Recent urinary tract infection Recent CTA is negative for pulmonary embolism Recent mechanical fall and chronic back pain and chronic pain syndrome History of CHF with diastolic dysfunction chronic GERD History of [place] degenerative joint disease Urinary incontinence chronic Hypothyroidism Morbid obesity BMI 67 Plan: Continue current medication regime ,monitoring and symptomatic treatment. [place] added to pain regime. Gentle IV fluid hydration until patient tolerating diet better. Maintain IV antibiotics. Patient updated on plan of care including discharge planning tomorrow. The impression and plan of care has been dictated as directed. : I performed a history and examination of this patient, discussed the same with the dictator. I agree with the dictator's note ,documented as a scribe. Any additional findings or plans will be noted.
[2018-06-22] MEDS: PRAMIPEXOLE 0.25 MG TAB PO SCH (21:48)
[2018-06-22] MEDS: QUEtiapine 25 MG TAB PO SCH (21:48)
[2018-06-22] MEDS: MELATONIN 5 MG TABLET PO SCH (21:48)
[2018-06-23] MEDS: HEPARIN SODIUM,PORCINE 5,000 UNIT/ML 1 ML VIAL SQ SCH ×3 (00:26→15:36)
[2018-06-23] MEDS: DEXTROSE 5%-0.9% NACL 1,000 ML IV SCH ×3 (02:37→23:00)
[2018-06-23] MEDS: HYDROmorphone 1 MG/ML 1 ML SYRINGE IVP PRN ×4 (03:18→21:40)
[2018-06-23] MEDS: LEVOTHYROXINE 75 MCG TAB PO SCH (06:24)
[2018-06-23] MEDS: HYDROcodone/APAP 7.5-325MG 1 EACH TAB PO PRN ×2 (06:26→15:36)
[2018-06-23] MEDS: ONDANSETRON 4 MG/2 ML VIAL IVP PRN (08:39)
[2018-06-23] MEDS: PANTOPRAZOLE 40 MG TABLET PO SCH ×2 (08:40→19:28)
[2018-06-23] MEDS: PREGABALIN 50 MG CAP PO SCH (10:07)
[2018-06-23] MEDS: ALPRAZolam 0.25 MG TAB PO PRN (10:17)
[2018-06-23] MEDS ORDERED: LOPERAMIDE 2 MG CAP PO PRN (14:13)
--- NOTE | 2018-06-23 20:30 | P.PN ---
Subjective Progress Note Date: 06/23/18 Progress note being dictated for Dr. Miller. Interval history:Patient is a 68-year-old female with known history of COPD, CHF with diastolic dysfunction, morbid obesity and obesity hypoventilation syndrome, chronic pain and pain syndrome and chronic back pain and history of recent fall and multiple other medical problems and frequent previous admissions came to ER with complaints of nausea and vomiting and unable to tolerate oral diet for the past 1 week. Patient was also having loose stools as well. Otherwise denied any complaints of shortness of breath. No chest pain. Patient does have abdominal pain mainly right lower quadrant. Denied any hematemesis or melena. Denied any NSAID use at home. Patient was on steroids previously but which was stopped during last admission. No fever no chills. No headache or dizziness or lightheadedness. Patient recently had EGD which showed small hiatal hernia and no evidence of esophagitis. Patient otherwise denied any dysuria or hematuria. Patient is complaining of pain and is requesting IV pain medications. Patient does have a history of E. coli and Proteus urinary tract infection previously CT of abdomen pelvis showed nonspecific abdomen with no diagnostic evidence of obstruction. Colonic diverticulosis. Right lateral anterior abdominal wall hernia. Slight ill-definition of the fat surrounding the pancreatic head may be related to the partial volume averaging. Lipase is not elevated. 06/19/2018 Patient is still complaining of abdominal pain and is requesting IV pain medications to be increased. Still having nausea and episodes of vomiting and not tolerating oral diet. No fever no chills. UA showed nitrite positive and large leukocyte esterase with WBC greater than 116. Patient will be started on antibiotics of ceftriaxone and follow-up urine culture. Otherwise no fever no chills. No chest pain or shortness of breath. No headache or dizziness or lightheadedness. 06/20/2018 Patient is still complaining of abdominal pain mainly right lower quadrant. Patient is unable to tolerate oral diet. Still having nausea and episodes of vomiting. Continued on IV pain medications in the form of Dilaudid. Continue with IV fluids. GI is following. Urine culture is growing gram-negative bacilli. Continued on ceftriaxone. Denied any complaints of chest pain or shortness of breath. No fever no chills. No headache or dizziness or lightheadedness. C. diff toxin is negative. IV fluids will be changed to D5 normal saline. Review of systems: CONSTITUTIONAL: fatigue. HEENT: No recent visual problems or hearing problems. Denied any sore throat. CARDIOVASCULAR: No chest pain, orthopnea, PND, no palpitations, no syncope. PULMONARY: No shortness of breath, no cough, no hemoptysis. GASTROINTESTINAL: Positive nausea, positive vomiting, RLQ abdominal pain. Normoactive bowel sounds. NEUROLOGICAL: No headaches, no weakness, no numbness. HEMATOLOGICAL: Denies any bleeding or petechiae. GENITOURINARY: Denies any burning micturition, frequency, or urgency. MUSCULOSKELETAl: Generalized diffuse weakness ENDOCRINE: Denies any polyuria or polydipsia. The rest of the 14 point review of systems is negative Active Medications Albuterol/Ipratropium (Duoneb 0.5 Mg-3 Mg/3 Ml Soln) 3 ml INHALATION RT-QID PRN PRN Reason: Shortness Of Breath Or Wheezing Alprazolam (Xanax) 0.25 mg PO BID PRN PRN Reason: Anxiety Last Admin: 06/21/18 09:30 Dose: 0.25 mg Guaifenesin (Mucinex) 600 mg PO Q12H PRN PRN Reason: Congestion Heparin Sodium (Porcine) (Heparin) 5,000 unit SQ Q8HR [facility] Last Admin: 06/21/18 07:39 Dose: 5,000 unit Hydromorphone HCl (Dilaudid) 0.5 mg IVP Q3HR PRN PRN Reason: Moderate Pain Last Admin: 06/19/18 14:41 Dose: 0.5 mg Hydromorphone HCl (Dilaudid) 1 mg IVP Q4HR PRN PRN Reason: SEVERE PAIN Last Admin: 06/21/18 11:55 Dose: 1 mg Sodium Chloride (Saline 0.9%) 1,000 mls @ 100 mls/hr IV .Q10H [facility] Last Admin: 06/20/18 23:44 Dose: Not Given Ceftriaxone Sodium 1,000 mg/ (Sodium Chloride) 50 mls @ 100 mls/hr IVPB Q24HR [facility] Last Admin: 06/21/18 07:44 Dose: 100 mls/hr Dextrose/Sodium Chloride (Dextrose 5%-Ns Iv Soln) 1,000 mls @ 100 mls/hr IV .Q10H [facility] Last Admin: 06/21/18 09:27 Dose: 100 mls/hr Levothyroxine Sodium (Synthroid) 150 mcg PO DAILY@0630 [facility] Last Admin: 06/21/18 05:09 Dose: 150 mcg Melatonin (Melatonin) 10 mg PO [facility] Last Admin: 06/20/18 21:31 Dose: 10 mg Naloxone HCl (Narcan) 0.2 mg IV Q2M PRN PRN Reason: Opioid Reversal Ondansetron HCl (Zofran) 4 mg IVP Q8HR PRN PRN Reason: Nausea And Vomiting Last Admin: 06/21/18 07:31 Dose: 4 mg Pantoprazole Sodium (Protonix) 40 mg PO AC-BID [facility] Last Admin: 06/21/18 07:39 Dose: 40 mg Pramipexole Dihydrochloride (Mirapex) 0.25 mg PO [facility] Last Admin: 06/20/18 21:31 Dose: 0.25 mg Pregabalin (Lyrica) 50 mg PO DAILY [facility] Last Admin: 06/21/18 07:46 Dose: Not Given Quetiapine Fumarate (Seroquel) 25 mg PO [facility] Last Admin: 06/20/18 21:31 Dose: 25 mg 06/21/2018 complains of right lower quadrant abdominal pain, improving. Nauseated with no further emesis. No diarrhea this morning. Denies chest pain , palpitations, increased in shortness of breath. Maintained on Rocephin for acute UTI with gram-negative bacilli. Afebrile, normal WBC. 06/22/2018 consumed 100% of dinner last night , no breakfast this morning .C/O abdominal pain, nauseated, no emesis. Diarrhea improving, once this morning and twice during the night, negative for C. difficile colitis. Afebrile. Maintained on Rocephin. Urine cultures reporting Klebsiella pneumonia. Denies chest pain, palpitations or increasing shortness of breath. 06/23/18 attempted to eat, developed abdominal cramping, nausea. Diarrhea.. Afebrile. Denies chest pain, palpitations. No increased shortness of breath. Objective - Vital Signs Vital signs: Vital Signs Temp 98.4 F 06/23/18 19:30 Pulse 84 06/23/18 19:30 Resp 16 06/23/18 19:30 BP 112/72 06/23/18 19:30 Pulse Ox 95 11/21/18 19:30 Intake & Output 06/23/18 06/23/18 06/24/18 06:59 18:59 06:59 Intake Total 1570 Balance 1570 Intake: Intake, IV Titration 800 Amount Dextrose 5%-0.9% NaCl 1, 800 000 ml @ 100 mls/hr IV . Q10H [facility] Rx#:[id number] Oral 770 Other: Voiding Method Bedside Commode # Voids 1 # Bowel Movements 1 - Exam Patient is sitting up in the bed, no acute distress, awake alert and oriented.. HEENT: Normocephalic. Neck is supple. Pupils reactive. Oral mucosa moist Neck reveals no JVD, carotid bruits, or thyromegaly. CHEST EXAMINATION: Trachea is central. Symmetrical expansion. Lung bah clear to auscultation and percussion. CARDIAC: Normal S1, S2 with no gallops. No murmurs ABDOMEN: Soft. Nontender abdomen. Bowel sounds normal. No organomegaly. Extremities: reveal no edema. No clubbing or cyanosis Neurologically awake, alert, oriented x3 with well-coordinated movements. No focal deficits noted - Labs CBC & Chem 7: 06/21/18 09:40 06/21/18 09:40 Assessment and Plan Assessment: Nausea vomiting and diarrhea along with abdominal pain. Likely due to viral gastroenteritis. C. diff negative. Improving. Acute urinary tract infection with Klebsiella pneumoniae Chronic persistent asthma. Stable now.. COPD stable. Dysphagia with history of Scales's esophagitis. EGD on 05/20/2018 negative for any stricture or Scales's esophagitis. Showed small hiatal hernia. Obesity with possible obesity hypoventilation syndrome and obstructive sleep apnea Recent urinary tract infection Recent CTA is negative for pulmonary embolism Recent mechanical fall and chronic back pain and chronic pain syndrome History of CHF with diastolic dysfunction chronic GERD History of [place] degenerative joint disease Urinary incontinence chronic Hypothyroidism Morbid obesity BMI 67 Plan: Continue current medication regime ,monitoring and symptomatic treatment. Recheck stool for C. difficile, and Imodium when necessary diarrhea as ordered. Maintain IV fluid hydration until patient tolerating diet better. Continue IV antibiotics. Patient updated on plan of care including potential discharge planning tomorrow, pending improvement. The impression and plan of care has been dictated as directed. : I performed a history and examination of this patient, discussed the same with the dictator. I agree with the dictator's note ,documented as a scribe. Any additional findings or plans will be noted.
[2018-06-23] MEDS: PRAMIPEXOLE 0.25 MG TAB PO SCH (21:40)
[2018-06-23] MEDS: QUEtiapine 25 MG TAB PO SCH (21:40)
[2018-06-23] MEDS: MELATONIN 5 MG TABLET PO SCH (21:40)
[2018-06-24] MEDS: HEPARIN SODIUM,PORCINE 5,000 UNIT/ML 1 ML VIAL SQ SCH ×3 (00:32→17:54)
[2018-06-24] MEDS: HYDROmorphone 1 MG/ML 1 ML SYRINGE IVP PRN ×5 (02:47→19:34)
[2018-06-24] MEDS: LEVOTHYROXINE 75 MCG TAB PO SCH (07:00)
[2018-06-24 08:27] LABS: Anisocytosis Slight; Basophils % (A) 0 %; Eosinophils # (A) 0.3 k/uL (0-0.7); Eosinophils % (A) 5 %; HCT 32.7 % (34.0-46.0); HGB 10.6 gm/dL (11.4-16.0); Lymphocytes # (A) 1.5 k/uL (1.0-4.8); Lymphocytes % (A) 25 %; MCH 26.5 pg (25.0-35.0); MCHC 32.3 g/dL (31.0-37.0); Mean Platelet Volume 7.9; Monocytes # (A) 0.4 k/uL (0-1.0); Monocytes % (A) 7 %; Neutrophils # (A) 3.7 k/uL (1.3-7.7); Neutrophils % (A) 61 %; Platelet Count 298 k/uL (150-450); RBC 3.99 m/uL (3.80-5.40); RDW 16.4 % (11.5-15.5); WBC 6.1 k/uL (3.8-10.6)
[2018-06-24 08:38] LABS: Anion Gap 2 mmol/L; Blood Urea Nitrogen 2 mg/dL (7-17); Calcium 8.5 mg/dL (8.4-10.2); Carbon Dioxide 27 mmol/L (22-30); Chloride 114 mmol/L (98-107); Glucose 105 mg/dL (74-99); Potassium 4.2 mmol/L (3.5-5.1); Sodium 143 mmol/L (137-145)
[2018-06-24] MEDS: ONDANSETRON 4 MG/2 ML VIAL IVP PRN (08:48)
[2018-06-24] MEDS: HYDROcodone/APAP 7.5-325MG 1 EACH TAB PO PRN ×3 (09:02→21:05)
[2018-06-24] MEDS: DEXTROSE 5%-0.9% NACL 1,000 ML IV SCH ×3 (10:44→19:37)
[2018-06-24] MEDS: PANTOPRAZOLE 40 MG TABLET PO SCH ×2 (10:44→17:53)
[2018-06-24] MEDS: PREGABALIN 50 MG CAP PO SCH (10:49)
[2018-06-24] MEDS: QUEtiapine 25 MG TAB PO SCH (21:05)
[2018-06-24] MEDS: MELATONIN 5 MG TABLET PO SCH (21:05)
[2018-06-24] MEDS: PRAMIPEXOLE 0.25 MG TAB PO SCH (21:05)
[2018-06-25] MEDS: ONDANSETRON 4 MG/2 ML VIAL IVP PRN (00:11)
[2018-06-25] MEDS: HEPARIN SODIUM,PORCINE 5,000 UNIT/ML 1 ML VIAL SQ SCH ×2 (00:11→07:55)
[2018-06-25] MEDS: HYDROmorphone 1 MG/ML 1 ML SYRINGE IVP PRN ×3 (00:11→10:16)
--- NOTE | 2018-06-25 00:30 | PN ---
PROGRESS NOTE DATE OF SERVICE: 06/24/2018 This 68-year-old woman who was admitted with nausea, vomiting, diarrhea, abdominal pain with possible acute gastroenteritis, being closely monitored. Patient had persistent abdominal symptoms and pain also. No chest pain. No palpitations. No fever. EXAM: Alert and oriented. Pulse 85, blood pressure 143/88, respirations 16, temp 98.1, pulse ox 94% on room air. HEENT: Conjunctivae normal. Oral mucosa. NECK: No jugular venous distention. No lymph node enlargement. CARDIOVASCULAR: S1, S2. RESPIRATORY: Diminished breath sounds at the bases. No rhonchi, no crackles. ABDOMEN: Soft. Mild diffuse discomfort. LEGS: No swelling. NERVOUS SYSTEM: No focal deficits. LABS: WBC 6.1, hemoglobin 10.6 sodium 140, potassium 4.2. ASSESSMENT: 1. Nausea, vomiting and diarrhea with abdominal pain continued with possibly gastroenteritis. Clostridium difficile is negative. 2. Acute urinary tract infection with Klebsiella pneumonia. 3. Chronic persistent asthma. 4. COPD, stable. 5. Dysphagia with history of Scales's esophagus. 6. Obesity with possible obesity hypoventilation syndrome, sleep apnea. 7. Recent recurrent urinary tract infection. 8. History of recent CT negative for pulmonary embolus. 9. Recent mechanical fall and chronic low back pain and chronic pain syndrome. 10.History of congestive heart failure with diastolic dysfunction, chronic. 11.GERD. 12.History of myocardial infarction. 13.History of DJD. 14.Hypothyroidism. 15.Morbid obesity. RECOMMENDATIONS AND DISCUSSION: Recommend to continue current management, continue symptomatic treatment. Continue with antibiotics. Continue the pain medications. Increase ambulation. Guarded prognosis. Further recommendations to follow. MMODL / IJN: [id number] /
[2018-06-25] MEDS: HYDROcodone/APAP 7.5-325MG 1 EACH TAB PO PRN ×2 (03:30→08:52)
[2018-06-25] MEDS: LEVOTHYROXINE 75 MCG TAB PO SCH (05:55)
[2018-06-25] MEDS: DEXTROSE 5%-0.9% NACL 1,000 ML IV SCH (05:59)
[2018-06-25 07:25] VITALS: RESP 12
[2018-06-25] MEDS: PANTOPRAZOLE 40 MG TABLET PO SCH (07:55)
[2018-06-25] MEDS: PREGABALIN 50 MG CAP PO SCH (07:55)
[2018-06-25 08:22] LABS: Anisocytosis Slight; Basophils % (A) 1 %; Eosinophils # (A) 0.3 k/uL (0-0.7); Eosinophils % (A) 5 %; HCT 32.5 % (34.0-46.0); Hypochromasia Slight; Lymphocytes # (A) 1.1 k/uL (1.0-4.8); Lymphocytes % (A) 23 %; MCH 26.3 pg (25.0-35.0); MCHC 30.9 g/dL (31.0-37.0); MCV 85.2 fL (80.0-100.0); Mean Platelet Volume 6.4; Monocytes # (A) 0.3 k/uL (0-1.0); Monocytes % (A) 6 %; Neutrophils % (A) 64 %; Platelet Count 271 k/uL (150-450); RBC 3.82 m/uL (3.80-5.40); WBC 4.8 k/uL (3.8-10.6)
[2018-06-25 08:37] LABS: Anion Gap 4 mmol/L; Blood Urea Nitrogen 2 mg/dL (7-17); Calcium 8.5 mg/dL (8.4-10.2); Carbon Dioxide 27 mmol/L (22-30); Chloride 112 mmol/L (98-107); Glucose 107 mg/dL (74-99); Potassium 3.6 mmol/L (3.5-5.1); Sodium 143 mmol/L (137-145)
[2018-06-25 14:47] VITALS: BP 133/86; PULSE 83; TEMP 98.1
--- NOTE | 2018-06-25 22:16 | DS ---
DISCHARGE SUMMARY DATE OF SERVICE: 06/25/2018 FINAL DIAGNOSES: 1. Nausea, vomiting, diarrhea with abdominal pain continued, possible gastroenteritis. C difficile is negative. 2. Acute urinary tract infection with Klebsiella pneumonia. 3. Chronic persistent asthma. 4. Chronic obstructive pulmonary disease, stable. 5. Dysphagia with history of Scales's esophagus. 6. Obesity with possible obesity hypoventilation syndrome, sleep apnea. 7. Recurrent urinary tract infections. 8. History of recent CT is negative for pulmonary embolus. 9. Recent mechanical fall and low back pain with chronic pain syndrome. 10.History of congestive heart failure with chronic diastolic dysfunction. 11.Gastroesophageal reflux disease. 12.History of myocardial infarction. 13.History of degenerative joint disease. 14.History of hypothyroidism. 15.History of morbid obesity. DISCHARGE DISPOSITION: The patient is being discharged in stable condition with guarded prognosis. HISTORY OF PRESENT ILLNESS: This is a 68-year-old woman with a past medical history of multiple medical problems was being followed by Dr. Welsh in the outpatient setting was admitted with multiple symptomatology as well as above list. The patient treated symptomatically. See orders for details. The patient improved significantly. On exam, vitals signs are stable. Cardiovascular S1, S2. Abdomen soft. Nervous system: No focal deficits. The patient also had a UTI, treated with antibiotics. DISCHARGE ADVICE AND MEDICATIONS: 1. Discharge diet is cardiac diet. 2. Activity limited until followup. 3. Follow up with Dr. Domingo in 2-3 days. MEDICATIONS: Medications are as follows: Medications will be: 1. Albuterol q.i.d. and p.r.n. 2. Lasix 40 mg b.i.d. 3. Mucinex 600 mg p.o. b.i.d. 4. [place] 10 mg q.i.d. p.r.n. 5. Synthroid 150 mcg p.o. daily. 6. Ativan 0.5 mg b.i.d. p.r.n. 7. Melatonin 10 mg p.o. q.h.s. 8. Prilosec 20 mg a.c. b.i.d. 9. Mirapex 0.25 mg q.h.s. 10.Lyrica 50 mg p.o. daily. 11.Seroquel 25 mg q.h.s. 12.Ceftin 500 mg p.o. b.i.d. for 3 days. Once again, the patient is being discharged in stable condition with guarded prognosis. MMODL / IJN: [id number] /
== END 2018-06-25 16:09 | disposition home or self-care (01) | DRG 392 ==
LOC: EC 07:21 → 4SSUR 12:46 → OBSVTOIN 06-20 14:29
PROVIDERS: ADMIT Internal Medicine; ATTEND Internal Medicine
DX: K52.9 Noninfective gastroenteritis and colitis, unspecified (principal); I50.32 Chronic diastolic (congestive) heart failure; N39.0 Urinary tract infection, site not specified; Z68.44 Body mass index [BMI] 60.0-69.9, adult; B96.1 Klebsiella pneumoniae [K. pneumoniae] as the cause of diseases classified elsewhere; E03.9 Hypothyroidism, unspecified; E66.01 Morbid (severe) obesity due to excess calories; G89.4 Chronic pain syndrome; I25.2 Old myocardial infarction; I48.91 Unspecified atrial fibrillation; J44.9 Chronic obstructive pulmonary disease, unspecified; K21.9 Gastro-esophageal reflux disease without esophagitis; K22.70 Barrett's esophagus without dysplasia; K43.9 Ventral hernia without obstruction or gangrene; K44.9 Diaphragmatic hernia without obstruction or gangrene; K57.30 Diverticulosis of large intestine without perforation or abscess without bleeding; K58.9 Irritable bowel syndrome, unspecified; M13.0 Polyarthritis, unspecified; R32 Unspecified urinary incontinence; Z79.899 Other long term (current) drug therapy; Z80.1 Family history of malignant neoplasm of trachea, bronchus and lung; Z82.49 Family history of ischemic heart disease and other diseases of the circulatory system; Z85.42 Personal history of malignant neoplasm of other parts of uterus; Z87.19 Personal history of other diseases of the digestive system; Z87.440 Personal history of urinary (tract) infections; Z87.442 Personal history of urinary calculi; Z90.49 Acquired absence of other specified parts of digestive tract; Z90.710 Acquired absence of both cervix and uterus; Z96.653 Presence of artificial knee joint, bilateral; Z79.891 Long term (current) use of opiate analgesic; Z79.890 Hormone replacement therapy; Z88.8 Allergy status to other drugs, medicaments and biological substances; Z88.6 Allergy status to analgesic agent; Z88.1 Allergy status to other antibiotic agents; Z91.041 Radiographic dye allergy status; G47.33 Obstructive sleep apnea (adult) (pediatric)
CPT/HCPCS: 36415; 74176; 80048; 80053; 81001; 82150; 83690; 85025; 87077; 87086; 87186; 87324; 87493; 96374; 96375; 99285

== ENCOUNTER 2018-07-11 10:17 | Inpatient (IN) | payer MEDICARE, OTHER ==
[2018-07-11] MEDS ORDERED: MORPHINE SULFATE 4 MG/ML SYRINGE IV STA ×2 (10:52→13:57)
[2018-07-11] MEDS ORDERED: ONDANSETRON 4 MG/2 ML VIAL IVP STA (10:52)
[2018-07-11] MEDS ORDERED: SODIUM CHLORIDE 0.9% 1,000 ML IV STA (10:52)
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
[2018-07-11 12:46] LABS: Basophils % (A) 0 %; Eosinophils # (A) 0.2 k/uL (0-0.7); Eosinophils % (A) 2 %; HCT 35.1 % (34.0-46.0); HGB 11.2 gm/dL (11.4-16.0); Lymphocytes # (A) 1.1 k/uL (1.0-4.8); Lymphocytes % (A) 13 %; MCH 26.2 pg (25.0-35.0); MCV 81.8 fL (80.0-100.0); Mean Platelet Volume 6.7; Monocytes # (A) 0.4 k/uL (0-1.0); Monocytes % (A) 5 %; Neutrophils # (A) 6.6 k/uL (1.3-7.7); Neutrophils % (A) 79 %; Platelet Count 363 k/uL (150-450); RBC 4.28 m/uL (3.80-5.40); RDW 15.9 % (11.5-15.5); WBC 8.4 k/uL (3.8-10.6)
[2018-07-11 12:54] LABS: ALT 25 U/L (9-52); AST 19 U/L (14-36); Albumin 3.9 g/dL (3.5-5.0); Alkaline Phosphatase 95 U/L (38-126); Amylase <30 U/L (30-110); Anion Gap 8 mmol/L; Blood Urea Nitrogen 4 mg/dL (7-17); Calcium 9.2 mg/dL (8.4-10.2); Carbon Dioxide 28 mmol/L (22-30); Chloride 104 mmol/L (98-107); Glucose 114 mg/dL (74-99); Lipase 46 U/L (23-300); Potassium 4.1 mmol/L (3.5-5.1); Sodium 140 mmol/L (137-145); Total Bilirubin 0.6 mg/dL (0.2-1.3); Total Protein 6.4 g/dL (6.3-8.2)
[2018-07-11 12:56] LABS: Partial Thromboplastin Time 23.4 sec (22.0-30.0); Prothrombin Time 10.3 sec (9.0-12.0)
[2018-07-11 13:06] LABS: Creatine Kinase 38 U/L (30-135)
[2018-07-11 13:19] LABS: Creatine Kinase MB 0.6 ng/mL (0.0-2.4); Troponin I <0.012 ng/mL (0.000-0.034)
[2018-07-11] MEDS ORDERED: FAMOTIDINE 20 MG/2 ML VIAL IV STA (13:28)
[2018-07-11] MEDS ORDERED: diphenhydrAMINE 50 MG/ML 1 ML VIAL IVP STA (13:28)
[2018-07-11] MEDS ORDERED: methylPREDNISolone SOD SUCCI 125 MG/2 ML VIAL IV STA (13:28)
--- NOTE | 2018-07-11 14:29 | XR ---
EXAMINATION TYPE: XR chest 2V DATE OF EXAM: 07/11/2018 COMPARISON: 05/24/2018 HISTORY: Right-sided pain TECHNIQUE: Frontal and lateral views of the chest are obtained. FINDINGS: There is no heart failure nor confluent pneumonic infiltrate. Costophrenic angles are santiago r. There are chest leads. There is spurring in the thoracic spine. Thoracic aorta is atheromatous. IMPRESSION: No active cardiopulmonary disease. Limited exam due to patient size. No adverse change c ompared to old exam.
--- NOTE | 2018-07-11 14:38 | CT ---
EXAMINATION TYPE: CT abdomen pelvis wo con DATE OF EXAM: 07/11/2018 COMPARISON: 06/18/2018 HISTORY: Nausea, vomiting and dehydration CT DLP: 2121.4 mGycm Automated exposure control for dose reduction was used. TECHNIQUE: Helical acquisition of images was performed from the lung bases through the pelvis. FINDINGS: Lung bases are clear of consolidation. There is no pleural effusion. Liver shows no focal defect. Jesus Alberto e ducts are not dilated. There is no pericardial effusion. Spleen appears normal. There is no pancrea tic mass. Gallbladder is absent. There is no adrenal mass. Kidneys of normal size and contour. There is no hydronephrosis. There is no evidence of retroperitoneal adenopathy. There is a left hip prosthesis. Bladder distends smoothly. There is no free fluid in the pelvis. Ther e is no inguinal hernia. There are few sigmoid diverticula. There is no sign of diverticulitis. There is no evidence of a andrew l obstruction. Appendix is not seen. There is no sign of appendicitis. There are spondylotic changes in the lumbar spine. I see no bony destructive process. Bony pelvis rafa ears intact. There is increased density in the subcutaneous fat over the lateral right side of the ab domen. Exam is limited by the patient's size. IMPRESSION: NO ACUTE ABNORMALITY SEEN WITHIN THE ABDOMEN AND PELVIS. SUBCUTANEOUS DENSITY ON THE RIGHT SIDE IS NO NSPECIFIC AND COULD RELATE TO EDEMA OR BRUISING. No change within the abdomen and pelvis compared to old exam.
[2018-07-11] MEDS ORDERED: DICYCLOMINE 10 MG/ML 2 ML AMP IM STA (15:09)
[2018-07-11 15:28] LABS: Appearance,Urine Clear (Clear); Bilirubin,Urine Negative (Negative); Blood,Urine Negative (Negative); Color,Urine Yellow; Glucose,Urine (UA) Negative (Negative); Ketones,Urine Negative (Negative); Leukocyte Esterase,Urine Negative (Negative); Nitrite,Urine Negative (Negative); Protein,Urine Negative (Negative); Urobilinogen,Urine <2.0 mg/dL (<2.0)
[2018-07-11] MEDS ORDERED: NALOXONE 0.4 MG/ML 1 ML VIAL IV PRN (19:07)
[2018-07-11] MEDS ORDERED: LORazepam 0.5 MG TAB PO PRN (23:00)
[2018-07-11] MEDS ORDERED: guaiFENesin 600 MG TABLET.ER PO PRN (23:00)
[2018-07-11] MEDS: HYDROmorphone 1 MG/ML 1 ML SYRINGE IVP PRN (23:09)
[2018-07-11] MEDS: ONDANSETRON 4 MG/2 ML VIAL IVP PRN (23:09)
[2018-07-11] MEDS: SODIUM CHLORIDE 0.9% 1,000 ML IV SCH (23:35)
[2018-07-11] MEDS: PANTOPRAZOLE 40 MG/10 ML VIAL IV SCH (23:36)
[2018-07-12] MEDS: QUEtiapine 25 MG TAB PO SCH ×2 (00:24→22:23)
[2018-07-12] MEDS: ONDANSETRON 4 MG/2 ML VIAL IVP PRN ×2 (05:30→17:55)
[2018-07-12] MEDS: LEVOTHYROXINE 75 MCG TAB PO SCH (05:31)
[2018-07-12] MEDS: HYDROmorphone 1 MG/ML 1 ML SYRINGE IVP PRN ×4 (05:31→22:23)
[2018-07-12] MEDS: MELATONIN 5 MG TABLET PO SCH ×2 (07:09→22:23)
[2018-07-12] MEDS: PANTOPRAZOLE 40 MG/10 ML VIAL IV SCH (09:27)
[2018-07-12] MEDS: FUROSEMIDE 40 MG TAB PO SCH (09:28)
[2018-07-12] MEDS: METOCLOPRAMIDE 5 MG/ML 2 ML VIAL IVP PRN (10:28)
[2018-07-12] MEDS: SODIUM CHLORIDE 0.9% 1,000 ML IV SCH ×2 (11:03→22:24)
[2018-07-12] MEDS ORDERED: HYDROmorphone 1 MG/ML 1 ML SYRINGE IVP STA ×2 (15:31→17:06)
[2018-07-12] MEDS ORDERED: PEG 3350-NA SULF,BICARB,CL/KCL 4,000 ML BOTTLE PO ONE (17:00)
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
[2018-07-12] MEDS ORDERED: LIDOCAINE 1% 20 ML VIAL (10MG/ML) FOR IV START INTRADERMA PRN (22:37)
[2018-07-13] MEDS ORDERED: DICYCLOMINE 20 MG TAB PO PRN (00:31)
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
[2018-07-13] MEDS: HYDROmorphone 1 MG/ML 1 ML SYRINGE IVP PRN ×6 (01:56→21:50)
[2018-07-13] MEDS: LACTATED RINGERS 1,000 ML IV SCH ×2 (04:59→22:16)
[2018-07-13] MEDS: LEVOTHYROXINE 75 MCG TAB PO SCH (05:00)
[2018-07-13] MEDS: PANTOPRAZOLE 40 MG/10 ML VIAL IV SCH (10:06)
[2018-07-13] MEDS: FUROSEMIDE 40 MG TAB PO SCH (10:11)
[2018-07-13] MEDS: LORazepam 0.5 MG TAB PO PRN (10:13)
[2018-07-13 10:20] LABS: Anion Gap 7 mmol/L; Blood Urea Nitrogen 4 mg/dL (7-17); Calcium 8.7 mg/dL (8.4-10.2); Carbon Dioxide 28 mmol/L (22-30); Chloride 107 mmol/L (98-107); Glucose 98 mg/dL (74-99); Potassium 4.2 mmol/L (3.5-5.1); Sodium 142 mmol/L (137-145)
[2018-07-13 10:40] LABS: Basophils % (A) 1 %; Eosinophils # (A) 0.4 k/uL (0-0.7); Eosinophils % (A) 5 %; HCT 33.3 % (34.0-46.0); HGB 10.7 gm/dL (11.4-16.0); Lymphocytes # (A) 1.1 k/uL (1.0-4.8); Lymphocytes % (A) 14 %; MCH 26.4 pg (25.0-35.0); MCHC 32.1 g/dL (31.0-37.0); MCV 82.2 fL (80.0-100.0); Monocytes # (A) 0.5 k/uL (0-1.0); Monocytes % (A) 6 %; Neutrophils # (A) 5.6 k/uL (1.3-7.7); Neutrophils % (A) 73 %; Platelet Count 321 k/uL (150-450); RBC 4.05 m/uL (3.80-5.40); RDW 15.8 % (11.5-15.5); WBC 7.8 k/uL (3.8-10.6)
--- NOTE | 2018-07-13 11:17 | P.PN ---
Subjective This is a pleasant 68 years old female with past medical history of atrial fibrillation, asthma/COPD, chest pain, GI bleed, posterior arthritis, pneumonia , colitis, urinary incontinence, irritable bowel syndrome, UTIs, peptic ulcer disease. C. diff. She presents with nausea vomiting and abdominal pain and diarrhea , the pain is in the left lower abdomin non radiating , non specific in character, moderate in severity has been going on for about 4-5 days. associated with watery diarreha , pt states it was 9 times 2 days ago. and twice yesterday but once today so far. it is watery with no blood in it as per pt pt with no fever, no leukocytosis, CT of the abd did not show specific cause for pt complaints. 07/13/2018 Patient still has abdominal pain. No nausea vomiting. Patient thought she has watery bowel movement from bowel preparation. Staph culture. Colonoscopy might be canceled today as patient did not have good bowel preparation however patient still wants to be done. Content the GI team for reevaluation for possible scope today. Increased pain medication of Dilaudid from 0.5 to 1 milligrams. Vital are stable. Labs are reviewed with no significant change Objective - Vital Signs Vital signs: Vital Signs Temp 97.8 F 07/13/18 00:58 Pulse 93 07/13/18 10:16 Resp 16 07/13/18 10:16 BP 164/85 07/13/18 10:16 Pulse Ox 93 L 07/13/18 10:16 Intake & Output 07/12/18 07/13/18 07/13/18 18:59 06:59 18:59 Intake Total 975 Balance 975 Intake: Intake, IV Titration 975 Amount Sodium Chloride 0.9% 1, 975 000 ml @ 75 mls/hr IV . [id number] [facility] Rx#:[id number] Other: # Voids 2 1 # Bowel Movements 1 - Labs CBC & Chem 7: 07/13/18 09:14 07/13/18 09:14 Labs: Abnormal Lab Results - Last 24 Hours (Table) 07/13/18 07/13/18 Range/Units 09:14 09:14 Hgb 10.7 L (11.4-16.0) gm/dL Hct 33.3 L (34.0-46.0) % RDW 15.8 H (11.5-15.5) % BUN 4 L (7-17) mg/dL Microbiology - Last 24 Hours (Table) 07/11/18 12:25 Blood Culture - Preliminary Blood No Growth after 24 hours Assessment and Plan Assessment: Gastroenteritis-like picture History of atrial fibrillation History of C. diff History of coronary artery disease and heart failure History of colitis History of irritable bowel syndrome History of urine incontinence. Plan: This is a pleasant 75 old female presents with gastroenteritis-like picture with abd pain and diarrhea. Continue with IV fluids, pain medication. GI consult is appreciated and the recommended scope Labs and medication were reviewed. c/w pain management. Continue same treatment. Continue with symptomatic treatment. Resume home medication. Monitor lytes and vitals. DVT and GI prophylaxis. Further recommendations of the clinical course of the patient DVT prophylaxis: Subcutaneous heparin GI Prophylaxis: Pepcid Prognosis is guarded
[2018-07-13] MEDS: SODIUM CHLORIDE 0.9% 1,000 ML IV SCH (15:58)
[2018-07-13] MEDS ORDERED: BISACODYL 5 MG TABLET.DR PO STA (16:50)
[2018-07-13] MEDS ORDERED: PEG 3350-NA SULF,BICARB,CL/KCL 4,000 ML BOTTLE PO ONE (17:00)
[2018-07-13] MEDS: ONDANSETRON 4 MG/2 ML VIAL IVP PRN (17:34)
[2018-07-13] MEDS: MELATONIN 5 MG TABLET PO SCH (21:20)
[2018-07-13] MEDS: QUEtiapine 25 MG TAB PO SCH (21:20)
[2018-07-14] MEDS: SODIUM CHLORIDE 0.9% 1,000 ML IV SCH ×2 (00:31→13:38)
[2018-07-14] MEDS: ONDANSETRON 4 MG/2 ML VIAL IVP PRN ×3 (02:57→22:40)
[2018-07-14] MEDS: HYDROmorphone 1 MG/ML 1 ML SYRINGE IVP PRN ×4 (02:57→20:26)
[2018-07-14] MEDS: LEVOTHYROXINE 75 MCG TAB PO SCH (05:49)
[2018-07-14] MEDS: HYDROcodone/APAP 10-325MG 1 EACH TAB PO PRN ×4 (05:51→23:54)
[2018-07-14] MEDS: METOCLOPRAMIDE 5 MG/ML 2 ML VIAL IVP PRN (07:43)
[2018-07-14] MEDS: FUROSEMIDE 40 MG TAB PO SCH (08:52)
[2018-07-14] MEDS: PANTOPRAZOLE 40 MG/10 ML VIAL IV SCH (08:52)
[2018-07-14 09:37] LABS: Anisocytosis Slight; Basophils % (A) 1 %; Eosinophils # (A) 0.4 k/uL (0-0.7); Eosinophils % (A) 6 %; HCT 32.8 % (34.0-46.0); HGB 10.4 gm/dL (11.4-16.0); Lymphocytes # (A) 0.9 k/uL (1.0-4.8); Lymphocytes % (A) 15 %; MCH 26.2 pg (25.0-35.0); MCHC 31.7 g/dL (31.0-37.0); MCV 82.6 fL (80.0-100.0); Mean Platelet Volume 7.5; Monocytes # (A) 0.4 k/uL (0-1.0); Monocytes % (A) 6 %; Neutrophils # (A) 4.5 k/uL (1.3-7.7); Neutrophils % (A) 71 %; Platelet Count 315 k/uL (150-450); RBC 3.97 m/uL (3.80-5.40); RDW 16.1 % (11.5-15.5); WBC 6.3 k/uL (3.8-10.6)
[2018-07-14 10:03] LABS: Anion Gap 9 mmol/L; Blood Urea Nitrogen 3 mg/dL (7-17); Calcium 8.9 mg/dL (8.4-10.2); Carbon Dioxide 27 mmol/L (22-30); Chloride 106 mmol/L (98-107); Glucose 97 mg/dL (74-99); Potassium 4.1 mmol/L (3.5-5.1); Sodium 142 mmol/L (137-145)
--- NOTE | 2018-07-14 10:51 | P.PN ---
Subjective This is a pleasant 68 years old female with past medical history of atrial fibrillation, asthma/COPD, chest pain, GI bleed, posterior arthritis, pneumonia , colitis, urinary incontinence, irritable bowel syndrome, UTIs, peptic ulcer disease. C. diff. She presents with nausea vomiting and abdominal pain and diarrhea , the pain is in the left lower abdomin non radiating , non specific in character, moderate in severity has been going on for about 4-5 days. associated with watery diarreha , pt states it was 9 times 2 days ago. and twice yesterday but once today so far. it is watery with no blood in it as per pt pt with no fever, no leukocytosis, CT of the abd did not show specific cause for pt complaints. 07/13/2018 Patient still has abdominal pain. No nausea vomiting. Patient thought she has watery bowel movement from bowel preparation. Staph culture. Colonoscopy might be canceled today as patient did not have good bowel preparation however patient still wants to be done. Content the GI team for reevaluation for possible scope today. Increased pain medication of Dilaudid from 0.5 to 1 milligrams. Vital are stable. Labs are reviewed with no significant change 07/14/2018 Patient possible going for colonoscopy today. She still have pain. vitals Stable. BMP was unremarkable. Patient still needs pain medication. Objective - Vital Signs Vital signs: Vital Signs Temp 98.1 F 07/14/18 07:35 Pulse 91 07/14/18 07:35 Resp 16 07/14/18 07:35 BP 167/91 07/14/18 07:35 Pulse Ox 96 07/14/18 07:35 Intake & Output 07/13/18 07/14/18 07/14/18 18:59 06:59 18:59 Intake Total 3290 Balance 3290 Intake: Intake, IV Titration 750 Amount Sodium Chloride 0.9% 1, 750 000 ml @ 75 mls/hr IV . [id number] [facility] Rx#:[id number] Oral 2540 Other: Voiding Method Bedside Commode # Voids 2 3 # Bowel Movements 3 - Exam GENERAL: The patient is alert and oriented x3, not in any acute distress. Well developed, well nourished. HEENT: Pupils are round and equally reacting to light. EOMI. No scleral icterus. No conjunctival pallor. Normocephalic, atraumatic. No pharyngeal erythema. No thyromegaly. CARDIOVASCULAR: S1 and S2 present. No murmurs, rubs, or gallops. PULMONARY: Chest is clear to auscultation, no wheezing or crackles. -ABDOMEN: Soft, mild right lower abdominal tenderness, with no rebound tenderness nondistended, normoactive bowel sounds. No palpable organomegaly. MUSCULOSKELETAL: No joint swelling or deformity. EXTREMITIES: No cyanosis, clubbing, or pedal edema. NEUROLOGICAL: Gross neurological examination did not reveal any focal deficits. SKIN: No rashes. - Labs CBC & Chem 7: 07/14/18 08:31 07/14/18 08:31 Labs: Abnormal Lab Results - Last 24 Hours (Table) 07/14/18 07/14/18 Range/Units 08:31 08:31 Hgb 10.4 L (11.4-16.0) gm/dL Hct 32.8 L (34.0-46.0) % RDW 16.1 H (11.5-15.5) % Lymphocytes # 0.9 L (1.0-4.8) k/uL BUN 3 L (7-17) mg/dL Microbiology - Last 24 Hours (Table) 07/11/18 12:25 Blood Culture - Preliminary Blood No Growth after 48 hours Assessment and Plan Assessment: Gastroenteritis-like picture History of atrial fibrillation History of C. diff History of coronary artery disease and heart failure History of colitis History of irritable bowel syndrome History of urine incontinence. Plan: This is a pleasant 75 old female presents with gastroenteritis-like picture with abd pain and diarrhea. Continue with IV fluids, pain medication. GI consult is appreciated and the recommended scope Labs and medication were reviewed. c/w pain management. Continue same treatment. Continue with symptomatic treatment. Resume home medication. Monitor lytes and vitals. DVT and GI prophylaxis. Further recommendations of the clinical course of the patient DVT prophylaxis: Subcutaneous heparin GI Prophylaxis: Pepcid Prognosis is guarded
[2018-07-14] MEDS ORDERED: LIDOCAINE 1% INJ 10MG/ML (20 ML MDV) ONE (15:36)
[2018-07-14] MEDS ORDERED: PROPOFOL 10 MG/ML 20 ML VIAL IV ONE (15:36)
[2018-07-14] MEDS ORDERED: MIDAZOLAM 2 MG/2 ML VIAL ONE (15:36)
[2018-07-14] MEDS ORDERED: LACTATED RINGERS 1,000 ML IV ONE (15:38)
--- NOTE | 2018-07-14 16:22 | P.PCN ---
Date of Procedure: 07/14/18 Description of Procedure: BRIEF HISTORY: The patient is a 68-year-old female who is well-known to the gastroenterology service with a medical history significant for atrial fibrillation, asthma/COPD , irritable bowel syndrome diarrhea predominant, and arthritis who presents to the hospital with complaints of abdominal pain and diarrhea. The patient reports right-sided abdominal pain which is severe in nature. She also reports a long-standing history of diarrhea but feels that this is been present over the past few days at a more severe level than prior. She states that she is going to the bathroom up to 10 times per day with loose bowel movements reported. She reports multiple episodes of stool incontinence and urgency with bowel movements. She has had multiple upper endoscopies with the last performed on 05/20/18 for reports of dysphagia which was significant for a hiatal hernia. She reports that her last colonoscopy was almost 10 years ago. On presentation the patient had a computed tomography scan of the abdomen which showed no acute abdominal or pelvic process and a surgically removed gallbladder. The patient has failed to follow up with gastroenterology in the outpatient setting she reports she has had lapses in her insurance. PROCEDURE PERFORMED: Colonoscopy with biopsies. PREOPERATIVE DIAGNOSIS: Abdominal pain, change in bowel habits. ESTIMATED BLOOD LOSS: Minimal. IV sedation per Anesthesia. PROCEDURE: After informed consent was obtained, the patient, was brought into the endoscopy unit. IV sedation was administered by Anesthesia under continuous monitoring. Digital rectal examination was normal. Initially the Olympus CF- 190 flexible video colonoscope was then inserted in the rectum, gradually advanced into the cecum without any difficulty. Careful examination was performed as the scope was gradually being withdrawn. Ileocecal valve and the appendiceal orifice were visualized and appeared normal. Prep was good. Mucosa of the cecum, ascending colon, transverse colon, descending colon, sigmoid colon , and rectum appeared normal. Random biopsies were taken in the right colon and transverse colon and the left colon. Mild scattered diverticulosis in the descending and sigmoid colon was found. Retroflexion was performed in the rectum and no lesions were seen, mild internal hemorrhoids were noted. The patient tolerated the procedure well. IMPRESSION: Normal-appearing colon from rectum to cecum, with mild internal hemorrhoids on retroflexion and mild diverticulosis seen. RECOMMENDATIONS: Findings of this examination were discussed with the patient. Await pathology from random biopsies. Continue symptomatic treatment. Computed tomography scan and colonoscopy essentially been negative. Can consider Doppler ultrasound for further evaluation of postprandial pain to rule out chronic mesenteric ischemia. We will continue to follow.
[2018-07-14] MEDS: MELATONIN 5 MG TABLET PO SCH (20:25)
[2018-07-14] MEDS: QUEtiapine 25 MG TAB PO SCH (20:25)
[2018-07-14] MEDS: LACTATED RINGERS 1,000 ML IV SCH (21:01)
[2018-07-15] MEDS: HYDROmorphone 1 MG/ML 1 ML SYRINGE IVP PRN ×5 (03:16→19:55)
[2018-07-15] MEDS: SODIUM CHLORIDE 0.9% 1,000 ML IV SCH ×2 (03:56→15:41)
[2018-07-15] MEDS: ONDANSETRON 4 MG/2 ML VIAL IVP PRN ×2 (05:33→11:46)
[2018-07-15] MEDS: HYDROcodone/APAP 10-325MG 1 EACH TAB PO PRN ×3 (05:33→18:19)
[2018-07-15] MEDS: LEVOTHYROXINE 75 MCG TAB PO SCH (05:33)
[2018-07-15] MEDS: FUROSEMIDE 40 MG TAB PO SCH (07:35)
[2018-07-15 07:40] LABS: Anisocytosis Slight; Basophils % (A) 1 %; Eosinophils # (A) 0.3 k/uL (0-0.7); Eosinophils % (A) 7 %; HCT 31.9 % (34.0-46.0); Lymphocytes % (A) 19 %; MCHC 31.5 g/dL (31.0-37.0); MCV 82.6 fL (80.0-100.0); Monocytes # (A) 0.4 k/uL (0-1.0); Monocytes % (A) 7 %; Neutrophils # (A) 3.4 k/uL (1.3-7.7); Neutrophils % (A) 66 %; Platelet Count 305 k/uL (150-450); RBC 3.86 m/uL (3.80-5.40); RDW 16.1 % (11.5-15.5); WBC 5.2 k/uL (3.8-10.6)
[2018-07-15 08:21] LABS: Anion Gap 7 mmol/L; Blood Urea Nitrogen 2 mg/dL (7-17); Calcium 8.7 mg/dL (8.4-10.2); Carbon Dioxide 27 mmol/L (22-30); Chloride 106 mmol/L (98-107); Glucose 87 mg/dL (74-99); Potassium 4.1 mmol/L (3.5-5.1); Sodium 140 mmol/L (137-145)
[2018-07-15] MEDS: PANTOPRAZOLE 40 MG/10 ML VIAL IV SCH (09:06)
--- NOTE | 2018-07-15 10:51 | P.PN ---
Subjective This is a pleasant 68 years old female with past medical history of atrial fibrillation, asthma/COPD, chest pain, GI bleed, posterior arthritis, pneumonia , colitis, urinary incontinence, irritable bowel syndrome, UTIs, peptic ulcer disease. C. diff. She presents with nausea vomiting and abdominal pain and diarrhea , the pain is in the left lower abdomin non radiating , non specific in character, moderate in severity has been going on for about 4-5 days. associated with watery diarreha , pt states it was 9 times 2 days ago. and twice yesterday but once today so far. it is watery with no blood in it as per pt pt with no fever, no leukocytosis, CT of the abd did not show specific cause for pt complaints. 07/13/2018 Patient still has abdominal pain. No nausea vomiting. Patient thought she has watery bowel movement from bowel preparation. Staph culture. Colonoscopy might be canceled today as patient did not have good bowel preparation however patient still wants to be done. Content the GI team for reevaluation for possible scope today. Increased pain medication of Dilaudid from 0.5 to 1 milligrams. Vital are stable. Labs are reviewed with no significant change 07/14/2018 Patient possible going for colonoscopy today. She still have pain. vitals Stable. BMP was unremarkable. Patient still needs pain medication. 07/15/2018 Patient had colonoscopy yesterday and the result showing mild diverticulosis, I did not show a possible cause for patient's symptoms. And GI follow-up is appreciated and the recommended Doppler ultrasound for further evaluation of postprandial pain to rule out chronic mesenteric ischemia. The radiology department and stated they don't do this test here. We're going to discussed with the team. Patient still complains from right lower quadrant abdominal pain , patient says that if she has this pain for more than 6 month. On and off. Associated with nausea vomiting sometimes. But states this morning she didn't have any vomiting. And she didn't have bowel movement since yesterday. However patient suddenly her vomiting is resolved and her diarrhea has been resolved. Review of systems CONSTITUTIONAL: No fever, no malaise, no fatigue. HEENT: No recent visual problems or hearing problems. Denied any sore throat. CARDIOVASCULAR: No orthopnea, PND, no palpitations, no syncope. PULMONARY: No shortness of breath, no cough, no hemoptysis. GASTROINTESTINAL: No diarrhea,Normoactive bowel sounds. NEUROLOGICAL: No headaches, no weakness, no numbness. HEMATOLOGICAL: Denies any bleeding or petechiae. GENITOURINARY: Denies any burning micturition, frequency, or urgency. MUSCULOSKELETAL/RHEUMATOLOGICAL: Denies any joint pain, swelling, or any muscle pain. ENDOCRINE: Denies any polyuria or polydipsia. Medications reviewed and include Bentyl, Lasix, Mucinex, [place], Dilaudid, Ringer lactate, Synthroid, Ativan, melatonin, Reglan, Narcan, Zofran, Protonix, and Seroquel Objective - Vital Signs Vital signs: Vital Signs Temp 98.2 F 07/15/18 07:48 Pulse 84 07/15/18 07:48 Resp 20 07/15/18 07:48 BP 148/85 07/15/18 07:48 Pulse Ox 92 L 07/15/18 07:48 Intake & Output 07/14/18 07/15/18 07/15/18 18:59 06:59 18:59 Intake Total 500 1050 Output Total 300 Balance 200 1050 Intake: IV 500 Intake, IV Titration 750 Amount Sodium Chloride 0.9% 1, 750 000 ml @ 75 mls/hr IV . [id number] [facility] Rx#:[id number] Oral 300 Output: Urine 300 Other: Voiding Method Bedside Commode Bedside Commode # Voids 2 2 - Exam GENERAL: The patient is alert and oriented x3, not in any acute distress. Well developed, well nourished. HEENT: Pupils are round and equally reacting to light. EOMI. No scleral icterus. No conjunctival pallor. Normocephalic, atraumatic. No pharyngeal erythema. No thyromegaly. CARDIOVASCULAR: S1 and S2 present. No murmurs, rubs, or gallops. PULMONARY: Chest is clear to auscultation, no wheezing or crackles. -ABDOMEN: Soft, mild right lower abdominal tenderness, with no rebound tenderness nondistended, normoactive bowel sounds. No palpable organomegaly. MUSCULOSKELETAL: No joint swelling or deformity. EXTREMITIES: No cyanosis, clubbing, or pedal edema. NEUROLOGICAL: Gross neurological examination did not reveal any focal deficits. SKIN: No rashes. - Labs CBC & Chem 7: 07/15/18 06:47 07/15/18 06:47 Labs: Abnormal Lab Results - Last 24 Hours (Table) 07/15/18 07/15/18 Range/Units 06:47 06:47 Hgb 10.0 L (11.4-16.0) gm/dL Hct 31.9 L (34.0-46.0) % RDW 16.1 H (11.5-15.5) % BUN 2 L (7-17) mg/dL Microbiology - Last 24 Hours (Table) 07/11/18 12:25 Blood Culture - Preliminary Blood No Growth after 72 hours Assessment and Plan Assessment: Gastroenteritis-like picture, with chronic right lower quadrant abdominal pain Diverticulosis, without inflammation. History of atrial fibrillation History of C. diff History of coronary artery disease and heart failure History of colitis History of irritable bowel syndrome History of urine incontinence. Plan: This is a pleasant 75 old female presents with gastroenteritis-like picture with abd pain and diarrhea. Continue with IV fluids, pain medication. GI consult is appreciated and the recommended scope Labs and medication were reviewed. c/w pain management. Continue same treatment. Continue with symptomatic treatment. Resume home medication. Monitor lytes and vitals. DVT and GI prophylaxis. Further recommendations of the clinical course of the patient DVT prophylaxis: Subcutaneous heparin GI Prophylaxis: Pepcid Prognosis is guarded
--- NOTE | 2018-07-15 13:40 | P.PN ---
Subjective Progress Note Date: 07/15/18 Principal diagnosis: Abdominal pain Status post unremarkable colonoscopy yesterday. Still reports right-sided abdominal pain after eating. Few loose nonbloody bowel moments. Afebrile. Objective - Vital Signs Vital signs: Vital Signs Temp 98.2 F 07/15/18 07:48 Pulse 84 07/15/18 07:48 Resp 20 07/15/18 07:48 BP 148/85 07/15/18 07:48 Pulse Ox 92 L 07/15/18 07:48 Intake & Output 07/14/18 07/15/18 07/15/18 18:59 06:59 18:59 Intake Total 500 1050 Output Total 300 Balance 200 1050 Intake: IV 500 Intake, IV Titration 750 Amount Sodium Chloride 0.9% 1, 750 000 ml @ 75 mls/hr IV . [id number] [facility] Rx#:[id number] Oral 300 Output: Urine 300 Other: Voiding Method Bedside Commode Bedside Commode # Voids 2 2 - Exam General appearance: The patient is alert, oriented, in no acute distress. HET: Head is normocephalic and atraumatic. Pupils are equal and reactive. Oropharynx is clear without lesions. Neck: Supple without lymphadenopathy. Trachea midline. Heart: S1 S2. Regular rate and rhythm. Lungs: No crackles or wheezes are heard. Abdomen: Soft, mild tenderness to the right side of abdomen, nondistended with bowel sounds. No peritoneal signs. No palpable organomegaly or masses. Extremities: Normal skin color and turgor. No cyanosis, rash, ulceration, clubbing, or edema. Radial and pedal pulses are 2/4 bilaterally. Neurological: No focal deficits. Strength and sensation are grossly intact. - Labs CBC & Chem 7: 07/15/18 06:47 07/15/18 06:47 Labs: Abnormal Lab Results - Last 24 Hours (Table) 07/15/18 07/15/18 Range/Units 06:47 06:47 Hgb 10.0 L (11.4-16.0) gm/dL Hct 31.9 L (34.0-46.0) % RDW 16.1 H (11.5-15.5) % BUN 2 L (7-17) mg/dL Microbiology - Last 24 Hours (Table) 07/11/18 12:25 Blood Culture - Preliminary Blood No Growth after 72 hours Assessment and Plan (1) Abdominal pain Narrative/Plan: Etiology unclear status post unremarkable colonoscopy. Still expressing persistent right-sided abdominal pain. Upper endoscopy in April was negative. Possible IBS possible chronic mesenteric ischemia. Current Visit: Yes Status: Acute Code(s): R10.9 - UNSPECIFIED ABDOMINAL PAIN SNOMED Code(s): 07225205 Plan: 1. Bentyl 20 mg 4 times a day. Diet as tolerated. Supportive measures. Consideration for Doppler ultrasound to further evaluation of postprandial pain to rule out chronic mesenteric ischemia. Assessment and plan a care discussed with Dr. Truong
[2018-07-15] MEDS: DICYCLOMINE 20 MG TAB PO SCH ×2 (18:20→19:55)
[2018-07-15] MEDS: MELATONIN 5 MG TABLET PO SCH (19:55)
[2018-07-15] MEDS: QUEtiapine 25 MG TAB PO SCH (19:55)
[2018-07-16] MEDS: ONDANSETRON 4 MG/2 ML VIAL IVP PRN ×3 (00:43→21:11)
[2018-07-16] MEDS: HYDROmorphone 1 MG/ML 1 ML SYRINGE IVP PRN ×6 (00:43→21:12)
[2018-07-16] MEDS: LACTATED RINGERS 1,000 ML IV SCH ×2 (02:12→22:43)
[2018-07-16] MEDS: LEVOTHYROXINE 75 MCG TAB PO SCH (05:15)
[2018-07-16] MEDS: SODIUM CHLORIDE 0.9% 1,000 ML IV SCH ×2 (05:54→21:16)
[2018-07-16] MEDS: FUROSEMIDE 40 MG TAB PO SCH (08:21)
[2018-07-16] MEDS: DICYCLOMINE 20 MG TAB PO SCH ×4 (09:02→22:42)
[2018-07-16] MEDS: PANTOPRAZOLE 40 MG TABLET PO SCH (09:03)
[2018-07-16] MEDS: HYDROcodone/APAP 10-325MG 1 EACH TAB PO PRN ×3 (10:07→22:23)
--- NOTE | 2018-07-16 11:03 | P.PN ---
Subjective This is a pleasant 68 years old female with past medical history of atrial fibrillation, asthma/COPD, chest pain, GI bleed, posterior arthritis, pneumonia , colitis, urinary incontinence, irritable bowel syndrome, UTIs, peptic ulcer disease. C. diff. She presents with nausea vomiting and abdominal pain and diarrhea , the pain is in the left lower abdomin non radiating , non specific in character, moderate in severity has been going on for about 4-5 days. associated with watery diarreha , pt states it was 9 times 2 days ago. and twice yesterday but once today so far. it is watery with no blood in it as per pt pt with no fever, no leukocytosis, CT of the abd did not show specific cause for pt complaints. 07/13/2018 Patient still has abdominal pain. No nausea vomiting. Patient thought she has watery bowel movement from bowel preparation. Staph culture. Colonoscopy might be canceled today as patient did not have good bowel preparation however patient still wants to be done. Content the GI team for reevaluation for possible scope today. Increased pain medication of Dilaudid from 0.5 to 1 milligrams. Vital are stable. Labs are reviewed with no significant change 07/14/2018 Patient possible going for colonoscopy today. She still have pain. vitals Stable. BMP was unremarkable. Patient still needs pain medication. 07/15/2018 Patient had colonoscopy yesterday and the result showing mild diverticulosis, I did not show a possible cause for patient's symptoms. And GI follow-up is appreciated and the recommended Doppler ultrasound for further evaluation of postprandial pain to rule out chronic mesenteric ischemia. The radiology department and stated they don't do this test here. We're going to discussed with the team. Patient still complains from right lower quadrant abdominal pain , patient says that if she has this pain for more than 6 month. On and off. Associated with nausea vomiting sometimes. But states this morning she didn't have any vomiting. And she didn't have bowel movement since yesterday. However patient suddenly her vomiting is resolved and her diarrhea has been resolved. 07/16/2018 Patient continued to have right mid abdominal pain which was going on for months on and off, and currently is bothered the patient with nausea vomiting and preventing her from eating. Colonoscopy was unremarkable for finding a cause. And gastroenterology team recommended to do a duplex study to rule out mesenteric ischemia, however this study is not available at this hospital, confirmed with radiology department. We'll discuss with the gastroenterology team for the next systems. I explained to the patient risks of a by mouth she is using with a recommendation to switch from IV up, as they might contributing to her systems eventually Might cause problems and side effects. Patient accepts this recommendation and she is trying to take the oral pills rather than the IV medication. Review of systems CONSTITUTIONAL: No fever, no malaise, no fatigue. HEENT: No recent visual problems or hearing problems. Denied any sore throat. CARDIOVASCULAR: No orthopnea, PND, no palpitations, no syncope. PULMONARY: No shortness of breath, no cough, no hemoptysis. GASTROINTESTINAL: No diarrhea,Normoactive bowel sounds. NEUROLOGICAL: No headaches, no weakness, no numbness. HEMATOLOGICAL: Denies any bleeding or petechiae. GENITOURINARY: Denies any burning micturition, frequency, or urgency. MUSCULOSKELETAL/RHEUMATOLOGICAL: Denies any joint pain, swelling, or any muscle pain. ENDOCRINE: Denies any polyuria or polydipsia. Medications reviewed and include Bentyl, Lasix, Mucinex, [place], Dilaudid, Ringer lactate, Synthroid, Ativan, melatonin, Reglan, Narcan, Zofran, Protonix, and Seroquel Objective - Vital Signs Vital signs: Vital Signs Temp 98.5 F 07/16/18 07:00 Pulse 85 07/16/18 07:00 Resp 15 07/16/18 07:00 BP 144/83 07/16/18 07:00 Pulse Ox 96 07/16/18 07:00 Intake & Output 07/15/18 07/16/18 07/16/18 18:59 06:59 18:59 Intake Total 840 937.5 240 Output Total 301 Balance 539 937.5 240 Weight 100.698 kg Intake: Intake, IV Titration 600 937.5 Amount Sodium Chloride 0.9% 1, 600 937.5 000 ml @ 75 mls/hr IV . [id number] [facility] Rx#:[id number] Oral 240 240 Output: Urine 300 Stool 1 Other: Voiding Method Bedside Commode Bedside Commode Bedside Commode # Voids 1 2 - Exam GENERAL: The patient is alert and oriented x3, not in any acute distress. Well developed, well nourished. HEENT: Pupils are round and equally reacting to light. EOMI. No scleral icterus. No conjunctival pallor. Normocephalic, atraumatic. No pharyngeal erythema. No thyromegaly. CARDIOVASCULAR: S1 and S2 present. No murmurs, rubs, or gallops. PULMONARY: Chest is clear to auscultation, no wheezing or crackles. -ABDOMEN: Soft, mild right lower abdominal tenderness, with no rebound tenderness nondistended, normoactive bowel sounds. No palpable organomegaly. MUSCULOSKELETAL: No joint swelling or deformity. EXTREMITIES: No cyanosis, clubbing, or pedal edema. NEUROLOGICAL: Gross neurological examination did not reveal any focal deficits. SKIN: No rashes. - Labs CBC & Chem 7: 07/15/18 06:47 07/15/18 06:47 Labs: Microbiology - Last 24 Hours (Table) 07/11/18 12:25 Blood Culture - Preliminary Blood No Growth after 96 hours Assessment and Plan Assessment: Gastroenteritis-like picture, with chronic right lower quadrant abdominal pain Diverticulosis, without inflammation. History of atrial fibrillation History of C. diff History of coronary artery disease and heart failure History of colitis History of irritable bowel syndrome History of urine incontinence. Plan: This is a pleasant 75 old female presents with gastroenteritis-like picture with abd pain and diarrhea. Patient needs Doppler ultrasounds are equivalent study to rule out ischemic mesentery. Continue with IV fluids, pain medication. GI consult is appreciated and the recommended scope Labs and medication were reviewed. c/w pain management. Continue same treatment. Continue with symptomatic treatment. Resume home medication. Monitor lytes and vitals. DVT and GI prophylaxis. Further recommendations of the clinical course of the patient DVT prophylaxis: Subcutaneous heparin GI Prophylaxis: Pepcid Prognosis is guarded
[2018-07-16 11:40] LABS: Basophils % (A) 0 %; Eosinophils # (A) 0.4 k/uL (0-0.7); Eosinophils % (A) 7 %; HCT 32.8 % (34.0-46.0); HGB 10.6 gm/dL (11.4-16.0); Hypochromasia Slight; Lymphocytes # (A) 0.8 k/uL (1.0-4.8); Lymphocytes % (A) 15 %; MCH 26.6 pg (25.0-35.0); MCHC 32.3 g/dL (31.0-37.0); MCV 82.3 fL (80.0-100.0); Mean Platelet Volume 6.7; Monocytes # (A) 0.3 k/uL (0-1.0); Monocytes % (A) 6 %; Neutrophils % (A) 71 %; Platelet Count 333 k/uL (150-450); RBC 3.98 m/uL (3.80-5.40); RDW 15.7 % (11.5-15.5); WBC 5.6 k/uL (3.8-10.6)
[2018-07-16 11:45] LABS: Anion Gap 7 mmol/L; Blood Urea Nitrogen 3 mg/dL (7-17); Calcium 8.6 mg/dL (8.4-10.2); Carbon Dioxide 27 mmol/L (22-30); Chloride 107 mmol/L (98-107); Glucose 119 mg/dL (74-99); Potassium 3.8 mmol/L (3.5-5.1); Sodium 141 mmol/L (137-145)
[2018-07-16] MEDS: LORazepam 0.5 MG TAB PO PRN (13:08)
[2018-07-16] MEDS: QUEtiapine 25 MG TAB PO SCH (21:12)
[2018-07-16] MEDS: MELATONIN 5 MG TABLET PO SCH (21:12)
[2018-07-17] MEDS: ONDANSETRON 4 MG/2 ML VIAL IVP PRN ×3 (03:12→17:54)
[2018-07-17] MEDS: HYDROmorphone 1 MG/ML 1 ML SYRINGE IVP PRN ×5 (03:12→20:59)
[2018-07-17] MEDS: LEVOTHYROXINE 75 MCG TAB PO SCH (05:56)
[2018-07-17] MEDS: PANTOPRAZOLE 40 MG TABLET PO SCH (07:36)
[2018-07-17 08:09] LABS: Basophils % (A) 0 %; Eosinophils # (A) 0.4 k/uL (0-0.7); Eosinophils % (A) 7 %; HCT 31.2 % (34.0-46.0); Hypochromasia Slight; Lymphocytes # (A) 1.1 k/uL (1.0-4.8); Lymphocytes % (A) 19 %; MCH 26.4 pg (25.0-35.0); MCHC 32.2 g/dL (31.0-37.0); MCV 82.2 fL (80.0-100.0); Mean Platelet Volume 7.5; Monocytes # (A) 0.3 k/uL (0-1.0); Monocytes % (A) 6 %; Neutrophils # (A) 3.7 k/uL (1.3-7.7); Neutrophils % (A) 66 %; Platelet Count 326 k/uL (150-450); RDW 15.7 % (11.5-15.5); WBC 5.7 k/uL (3.8-10.6)
[2018-07-17 08:26] LABS: Anion Gap 7 mmol/L; Blood Urea Nitrogen 5 mg/dL (7-17); Calcium 8.8 mg/dL (8.4-10.2); Carbon Dioxide 27 mmol/L (22-30); Chloride 110 mmol/L (98-107); Glucose 107 mg/dL (74-99); Sodium 144 mmol/L (137-145)
[2018-07-17 08:29] LABS: Potassium 4.8 mmol/L (3.5-5.1)
[2018-07-17] MEDS: FUROSEMIDE 40 MG TAB PO SCH (09:45)
[2018-07-17] MEDS: DICYCLOMINE 20 MG TAB PO SCH ×4 (09:45→21:01)
[2018-07-17] MEDS: HYDROcodone/APAP 10-325MG 1 EACH TAB PO PRN ×2 (10:29→17:53)
--- NOTE | 2018-07-17 11:25 | P.PN ---
Subjective This is a pleasant 68 years old female with past medical history of atrial fibrillation, asthma/COPD, chest pain, GI bleed, posterior arthritis, pneumonia , colitis, urinary incontinence, irritable bowel syndrome, UTIs, peptic ulcer disease. C. diff. She presents with nausea vomiting and abdominal pain and diarrhea , the pain is in the left lower abdomin non radiating , non specific in character, moderate in severity has been going on for about 4-5 days. associated with watery diarreha , pt states it was 9 times 2 days ago. and twice yesterday but once today so far. it is watery with no blood in it as per pt pt with no fever, no leukocytosis, CT of the abd did not show specific cause for pt complaints. 07/13/2018 Patient still has abdominal pain. No nausea vomiting. Patient thought she has watery bowel movement from bowel preparation. Staph culture. Colonoscopy might be canceled today as patient did not have good bowel preparation however patient still wants to be done. Content the GI team for reevaluation for possible scope today. Increased pain medication of Dilaudid from 0.5 to 1 milligrams. Vital are stable. Labs are reviewed with no significant change 07/14/2018 Patient possible going for colonoscopy today. She still have pain. vitals Stable. BMP was unremarkable. Patient still needs pain medication. 07/15/2018 Patient had colonoscopy yesterday and the result showing mild diverticulosis, I did not show a possible cause for patient's symptoms. And GI follow-up is appreciated and the recommended Doppler ultrasound for further evaluation of postprandial pain to rule out chronic mesenteric ischemia. The radiology department and stated they don't do this test here. We're going to discussed with the team. Patient still complains from right lower quadrant abdominal pain , patient says that if she has this pain for more than 6 month. On and off. Associated with nausea vomiting sometimes. But states this morning she didn't have any vomiting. And she didn't have bowel movement since yesterday. However patient suddenly her vomiting is resolved and her diarrhea has been resolved. 07/16/2018 Patient continued to have right mid abdominal pain which was going on for months on and off, and currently is bothered the patient with nausea vomiting and preventing her from eating. Colonoscopy was unremarkable for finding a cause. And gastroenterology team recommended to do a duplex study to rule out mesenteric ischemia, however this study is not available at this hospital, confirmed with radiology department. We'll discuss with the gastroenterology team for the next systems. I explained to the patient risks of a by mouth she is using with a recommendation to switch from IV up, as they might contributing to her systems eventually Might cause problems and side effects. Patient accepts this recommendation and she is trying to take the oral pills rather than the IV medication. 07/17/18 pt is still complaining from pain on her right abd, she states she still has loose bowel movement. She still taking Dilaudid and [place]. I explained to the patient more than once about the risk of these medications including but not limited to the risk of cardiopulmonary depression and at rest, risk of , risk of addiction. Patient verbalized understanding that she will told me she tried to lower the need for pain medication. GI team recommended duplex to rule out mesenteric ischemia, but this test is not available from this hospital as per radiology team. We'll advance diet as tolerated. Continue patient on IV fluids Review of systems CONSTITUTIONAL: No fever, no malaise, no fatigue. HEENT: No recent visual problems or hearing problems. Denied any sore throat. CARDIOVASCULAR: No orthopnea, PND, no palpitations, no syncope. PULMONARY: No shortness of breath, no cough, no hemoptysis. GASTROINTESTINAL: No diarrhea,Normoactive bowel sounds. NEUROLOGICAL: No headaches, no weakness, no numbness. HEMATOLOGICAL: Denies any bleeding or petechiae. GENITOURINARY: Denies any burning micturition, frequency, or urgency. MUSCULOSKELETAL/RHEUMATOLOGICAL: Denies any joint pain, swelling, or any muscle pain. ENDOCRINE: Denies any polyuria or polydipsia. Medications reviewed and include Bentyl, Lasix, Mucinex, [place], Dilaudid, Ringer lactate, Synthroid, Ativan, melatonin, Reglan, Narcan, Zofran, Protonix, and Seroquel Objective - Vital Signs Vital signs: Vital Signs Temp 99.1 F 07/17/18 07:33 Pulse 82 07/17/18 07:33 Resp 16 07/17/18 07:33 BP 145/87 07/17/18 07:33 Pulse Ox 94 L 07/17/18 07:33 Intake & Output 07/16/18 07/17/18 07/17/18 18:59 06:59 18:59 Intake Total 970 650 Balance 970 650 Intake: Intake, IV Titration 650 Amount Sodium Chloride 0.9% 1, 650 000 ml @ 75 mls/hr IV . [id number] [facility] Rx#:[id number] Oral 970 Other: Voiding Method Bedside Commode Bedside Commode # Voids 1 - Exam GENERAL: The patient is alert and oriented x3, not in any acute distress. Well developed, well nourished. HEENT: Pupils are round and equally reacting to light. EOMI. No scleral icterus. No conjunctival pallor. Normocephalic, atraumatic. No pharyngeal erythema. No thyromegaly. CARDIOVASCULAR: S1 and S2 present. No murmurs, rubs, or gallops. PULMONARY: Chest is clear to auscultation, no wheezing or crackles. -ABDOMEN: Soft, mild right lower abdominal tenderness, with no rebound tenderness nondistended, normoactive bowel sounds. No palpable organomegaly. MUSCULOSKELETAL: No joint swelling or deformity. EXTREMITIES: No cyanosis, clubbing, or pedal edema. NEUROLOGICAL: Gross neurological examination did not reveal any focal deficits. SKIN: No rashes. - Labs CBC & Chem 7: 07/17/18 07:20 07/17/18 07:20 Labs: Abnormal Lab Results - Last 24 Hours (Table) 07/16/18 07/16/18 07/17/18 Range/Units 11:18 11:18 07:20 Hgb 10.6 L 10.0 L (11.4-16.0) gm/dL Hct 32.8 L 31.2 L (34.0-46.0) % RDW 15.7 H 15.7 H (11.5-15.5) % Lymphocytes # 0.8 L (1.0-4.8) k/uL Chloride (98-107) mmol/L BUN 3 L (7-17) mg/dL Glucose 119 H (74-99) mg/dL 07/17/18 Range/Units 07:20 Hgb (11.4-16.0) gm/dL Hct (34.0-46.0) % RDW (11.5-15.5) % Lymphocytes # (1.0-4.8) k/uL Chloride 110 H (98-107) mmol/L BUN 5 L (7-17) mg/dL Glucose 107 H (74-99) mg/dL Microbiology - Last 24 Hours (Table) 07/11/18 12:25 Blood Culture - Preliminary Blood No Growth after 120 hours Assessment and Plan Assessment: Gastroenteritis-like picture, with chronic right lower quadrant abdominal pain Diverticulosis, without inflammation. History of atrial fibrillation History of C. diff History of coronary artery disease and heart failure History of colitis History of irritable bowel syndrome History of urine incontinence. Plan: This is a pleasant 75 old female presents with gastroenteritis-like picture with abd pain and diarrhea. Patient needs Doppler ultrasounds are equivalent study to rule out ischemic mesentery. Continue with IV fluids, pain medication. GI consult is appreciated and the recommended scope Labs and medication were reviewed. c/w pain management. Continue same treatment. Continue with symptomatic treatment. Resume home medication. Monitor lytes and vitals. DVT and GI prophylaxis. Further recommendations of the clinical course of the patient DVT prophylaxis: Subcutaneous heparin GI Prophylaxis: Pepcid Prognosis is guarded
[2018-07-17] MEDS: SODIUM CHLORIDE 0.9% 1,000 ML IV SCH ×2 (14:21→23:56)
[2018-07-17] MEDS: MELATONIN 5 MG TABLET PO SCH (21:00)
[2018-07-17] MEDS: QUEtiapine 25 MG TAB PO SCH (21:00)
[2018-07-17] MEDS: LACTATED RINGERS 1,000 ML IV SCH (23:57)
[2018-07-18] MEDS: HYDROmorphone 1 MG/ML 1 ML SYRINGE IVP PRN ×5 (01:50→22:16)
[2018-07-18] MEDS: HYDROcodone/APAP 10-325MG 1 EACH TAB PO PRN ×3 (05:39→17:50)
[2018-07-18] MEDS: LEVOTHYROXINE 75 MCG TAB PO SCH (05:39)
[2018-07-18] MEDS: FUROSEMIDE 40 MG TAB PO SCH ×2 (07:55→12:28)
[2018-07-18] MEDS: DICYCLOMINE 20 MG TAB PO SCH ×4 (07:55→22:16)
[2018-07-18] MEDS: PANTOPRAZOLE 40 MG TABLET PO SCH (07:55)
[2018-07-18 08:12] LABS: Anion Gap 8 mmol/L; Blood Urea Nitrogen 5 mg/dL (7-17); Calcium 9.1 mg/dL (8.4-10.2); Carbon Dioxide 24 mmol/L (22-30); Chloride 111 mmol/L (98-107); Glucose 103 mg/dL (74-99); Potassium 4.4 mmol/L (3.5-5.1); Sodium 143 mmol/L (137-145)
[2018-07-18 08:56] LABS: Basophils % (A) 0 %; Eosinophils # (A) 0.3 k/uL (0-0.7); Eosinophils % (A) 6 %; HCT 31.3 % (34.0-46.0); HGB 10.4 gm/dL (11.4-16.0); Hypochromasia Slight; Lymphocytes # (A) 1.2 k/uL (1.0-4.8); Lymphocytes % (A) 21 %; MCH 27.7 pg (25.0-35.0); MCHC 33.1 g/dL (31.0-37.0); MCV 83.6 fL (80.0-100.0); Mean Platelet Volume 7.6; Monocytes # (A) 0.4 k/uL (0-1.0); Monocytes % (A) 7 %; Neutrophils # (A) 3.7 k/uL (1.3-7.7); Neutrophils % (A) 65 %; Platelet Count 272 k/uL (150-450); RBC 3.75 m/uL (3.80-5.40); RDW 15.6 % (11.5-15.5); WBC 5.7 k/uL (3.8-10.6)
[2018-07-18] MEDS: SODIUM CHLORIDE 0.9% 1,000 ML IV SCH (11:24)
[2018-07-18] MEDS: ONDANSETRON 4 MG/2 ML VIAL IVP PRN (11:28)
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
[2018-07-18] MEDS: LORazepam 0.5 MG TAB PO PRN (12:40)
[2018-07-18] MEDS: QUEtiapine 25 MG TAB PO SCH (22:16)
[2018-07-18] MEDS: MELATONIN 5 MG TABLET PO SCH (22:16)
[2018-07-19] MEDS: HYDROcodone/APAP 10-325MG 1 EACH TAB PO PRN ×3 (01:27→16:58)
[2018-07-19] MEDS: HYDROmorphone 1 MG/ML 1 ML SYRINGE IVP PRN ×6 (03:14→22:35)
[2018-07-19] MEDS: LACTATED RINGERS 1,000 ML IV SCH ×2 (03:14→22:37)
[2018-07-19] MEDS: SODIUM CHLORIDE 0.9% 1,000 ML IV SCH ×2 (06:13→08:50)
[2018-07-19] MEDS: LEVOTHYROXINE 75 MCG TAB PO SCH (06:14)
[2018-07-19] MEDS: DICYCLOMINE 20 MG TAB PO SCH ×5 (08:49→22:35)
[2018-07-19] MEDS: PANTOPRAZOLE 40 MG TABLET PO SCH (08:49)
[2018-07-19] MEDS: FUROSEMIDE 40 MG TAB PO SCH (08:49)
--- NOTE | 2018-07-19 09:02 | P.PN ---
Subjective This is a pleasant 68 years old female with past medical history of atrial fibrillation, asthma/COPD, chest pain, GI bleed, posterior arthritis, pneumonia , colitis, urinary incontinence, irritable bowel syndrome, UTIs, peptic ulcer disease. C. diff. She presents with nausea vomiting and abdominal pain and diarrhea , the pain is in the left lower abdomin non radiating , non specific in character, moderate in severity has been going on for about 4-5 days. associated with watery diarreha , pt states it was 9 times 2 days ago. and twice yesterday but once today so far. it is watery with no blood in it as per pt pt with no fever, no leukocytosis, CT of the abd did not show specific cause for pt complaints. 07/13/2018 Patient still has abdominal pain. No nausea vomiting. Patient thought she has watery bowel movement from bowel preparation. Staph culture. Colonoscopy might be canceled today as patient did not have good bowel preparation however patient still wants to be done. Content the GI team for reevaluation for possible scope today. Increased pain medication of Dilaudid from 0.5 to 1 milligrams. Vital are stable. Labs are reviewed with no significant change 07/14/2018 Patient possible going for colonoscopy today. She still have pain. vitals Stable. BMP was unremarkable. Patient still needs pain medication. 07/15/2018 Patient had colonoscopy yesterday and the result showing mild diverticulosis, I did not show a possible cause for patient's symptoms. And GI follow-up is appreciated and the recommended Doppler ultrasound for further evaluation of postprandial pain to rule out chronic mesenteric ischemia. The radiology department and stated they don't do this test here. We're going to discussed with the team. Patient still complains from right lower quadrant abdominal pain , patient says that if she has this pain for more than 6 month. On and off. Associated with nausea vomiting sometimes. But states this morning she didn't have any vomiting. And she didn't have bowel movement since yesterday. However patient suddenly her vomiting is resolved and her diarrhea has been resolved. 07/16/2018 Patient continued to have right mid abdominal pain which was going on for months on and off, and currently is bothered the patient with nausea vomiting and preventing her from eating. Colonoscopy was unremarkable for finding a cause. And gastroenterology team recommended to do a duplex study to rule out mesenteric ischemia, however this study is not available at this hospital, confirmed with radiology department. We'll discuss with the gastroenterology team for the next systems. I explained to the patient risks of a by mouth she is using with a recommendation to switch from IV up, as they might contributing to her systems eventually Might cause problems and side effects. Patient accepts this recommendation and she is trying to take the oral pills rather than the IV medication. 07/17/18 pt is still complaining from pain on her right abd, she states she still has loose bowel movement. She still taking Dilaudid and Narco. I explained to the patient more than once about the risk of these medications including but not limited to the risk of cardiopulmonary depression and at rest, risk of , risk of addiction. Patient verbalized understanding that she will told me she tried to lower the need for pain medication. GI team recommended duplex to rule out mesenteric ischemia, but this test is not available from this hospital as per radiology team. We'll advance diet as tolerated. Continue patient on IV fluids 07/18/2018 Patient still have struggling with her diet and complaining of from right sided mid abdominal pain. Surgical consult is appreciated. Most likely patient have right lateral abdominal wall hernia without active small bowel obstruction. And the recommended surgical intervention, patient thinks is going to be in 1 month. Cardiology preop evaluation is ordered. Labs reviewed and are unremarkable except for anemia 10.4 hemoglobin. Vitals are stable. Review of systems CONSTITUTIONAL: No fever, no malaise, no fatigue. HEENT: No recent visual problems or hearing problems. Denied any sore throat. CARDIOVASCULAR: No orthopnea, PND, no palpitations, no syncope. PULMONARY: No shortness of breath, no cough, no hemoptysis. GASTROINTESTINAL: No diarrhea,Normoactive bowel sounds. NEUROLOGICAL: No headaches, no weakness, no numbness. HEMATOLOGICAL: Denies any bleeding or petechiae. GENITOURINARY: Denies any burning micturition, frequency, or urgency. MUSCULOSKELETAL/RHEUMATOLOGICAL: Denies any joint pain, swelling, or any muscle pain. ENDOCRINE: Denies any polyuria or polydipsia. Medications reviewed and include Bentyl, Lasix, Mucinex, [place], Dilaudid, Ringer lactate, Synthroid, Ativan, melatonin, Reglan, Narcan, Zofran, Protonix, and Seroquel Objective - Vital Signs Vital signs: Vital Signs Temp 99.5 F 07/18/18 14:18 Pulse 106 H 07/18/18 14:18 Resp 20 07/18/18 14:18 BP 162/71 07/18/18 14:18 Pulse Ox 93 L 07/18/18 14:18 Intake & Output 07/17/18 07/18/18 07/18/18 18:59 06:59 18:59 Intake Total 600 Balance 600 Weight 166.922 kg Intake: IV 600 Sodium Chloride 0.9% 1, 600 000 ml @ 75 mls/hr IV . [id number] [facility] Rx#:[id number] Other: Voiding Method Bedside Commode Bedside Commode # Voids 1 1 1 - Exam GENERAL: The patient is alert and oriented x3, not in any acute distress. Well developed, well nourished. HEENT: Pupils are round and equally reacting to light. EOMI. No scleral icterus. No conjunctival pallor. Normocephalic, atraumatic. No pharyngeal erythema. No thyromegaly. CARDIOVASCULAR: S1 and S2 present. No murmurs, rubs, or gallops. PULMONARY: Chest is clear to auscultation, no wheezing or crackles. -ABDOMEN: Soft, mild right lower abdominal tenderness, with no rebound tenderness nondistended, normoactive bowel sounds. No palpable organomegaly. MUSCULOSKELETAL: No joint swelling or deformity. EXTREMITIES: No cyanosis, clubbing, or pedal edema. NEUROLOGICAL: Gross neurological examination did not reveal any focal deficits. SKIN: No rashes. - Labs CBC & Chem 7: 07/18/18 06:55 07/18/18 06:55 Labs: Abnormal Lab Results - Last 24 Hours (Table) 07/18/18 07/18/18 Range/Units 06:55 06:55 RBC 3.75 L (3.80-5.40) m/uL Hgb 10.4 L (11.4-16.0) gm/dL Hct 31.3 L (34.0-46.0) % RDW 15.6 H (11.5-15.5) % Chloride 111 H (98-107) mmol/L BUN 5 L (7-17) mg/dL Glucose 103 H (74-99) mg/dL Microbiology - Last 24 Hours (Table) 07/11/18 12:25 Blood Culture - Final Blood No Growth after 144 hours Assessment and Plan Assessment: Gastroenteritis-like picture, with chronic right lower quadrant abdominal pain Diverticulosis, without inflammation. History of atrial fibrillation History of C. diff History of coronary artery disease and heart failure History of colitis History of irritable bowel syndrome History of urine incontinence. Plan: This is a pleasant 75 old female presents with gastroenteritis-like picture with abd pain and diarrhea. Patient needs Doppler ultrasounds are equivalent study to rule out ischemic mesentery. Continue with IV fluids, pain medication. GI consult is appreciated and the recommended scope Labs and medication were reviewed. c/w pain management. Continue same treatment. Continue with symptomatic treatment. Resume home medication. Monitor lytes and vitals. DVT and GI prophylaxis. Further recommendations of the clinical course of the patient DVT prophylaxis: Subcutaneous heparin GI Prophylaxis: Pepcid Prognosis is guarded
[2018-07-19 09:45] LABS: Anion Gap 7 mmol/L; Blood Urea Nitrogen 5 mg/dL (7-17); Carbon Dioxide 30 mmol/L (22-30); Chloride 104 mmol/L (98-107); Glucose 108 mg/dL (74-99); Potassium 3.9 mmol/L (3.5-5.1); Sodium 141 mmol/L (137-145)
[2018-07-19 10:13] LABS: Basophils % (A) 1 %; Eosinophils # (A) 0.3 k/uL (0-0.7); Eosinophils % (A) 5 %; HCT 35.9 % (34.0-46.0); HGB 11.5 gm/dL (11.4-16.0); Lymphocytes # (A) 1.2 k/uL (1.0-4.8); Lymphocytes % (A) 19 %; MCH 26.3 pg (25.0-35.0); MCHC 32.1 g/dL (31.0-37.0); MCV 81.9 fL (80.0-100.0); Mean Platelet Volume 9.1; Monocytes # (A) 0.5 k/uL (0-1.0); Monocytes % (A) 8 %; Neutrophils # (A) 4.1 k/uL (1.3-7.7); Neutrophils % (A) 66 %; Platelet Count 199 k/uL (150-450); RBC 4.39 m/uL (3.80-5.40); RDW 15.9 % (11.5-15.5); WBC 6.3 k/uL (3.8-10.6)
--- NOTE | 2018-07-19 12:02 | P.PN ---
Subjective Progress Note Date: 07/19/18 Patient noncompliant with bariatric pured diet. "Everything looks like vomiting.". Patient still requesting schedule narcotics. Imaging consistent with no evidence of bowel obstruction or incarceration. Patient has chronic abdominal pain. She is pending cardiology consultation. Surgical intervention with ventral hernia repair described. Surgical intervention pending cardiac risk assessment for history of COPD including congestive heart failure. Objective - Vital Signs Vital signs: Vital Signs Temp 99.0 F 07/19/18 08:45 Pulse 83 07/19/18 10:08 Resp 20 07/19/18 08:45 BP 149/89 07/19/18 10:08 Pulse Ox 92 L 07/19/18 08:45 Intake & Output 07/18/18 07/19/18 07/19/18 18:59 06:59 18:59 Intake Total 1120 Output Total 900 Balance 1120 -900 Weight 166.922 kg Intake: Intake, IV Titration 120 Amount Lactated Ringers 1,000 ml 120 @ 20 mls/hr IV .Q24H [facility] Rx#:[id number] Oral 1000 Output: Urine 900 Other: Voiding Method Bedside Commode Incontinent Incontinent # Voids 5 0 - Labs CBC & Chem 7: 07/19/18 08:25 07/19/18 08:25 Labs: Abnormal Lab Results - Last 24 Hours (Table) 07/19/18 07/19/18 Range/Units 08:25 08:25 RDW 15.9 H (11.5-15.5) % BUN 5 L (7-17) mg/dL Glucose 108 H (74-99) mg/dL Assessment and Plan (1) Right lower quadrant abdominal pain Current Visit: Yes Status: Acute Code(s): R10.31 - RIGHT LOWER QUADRANT PAIN SNOMED Code(s): 597293990 (2) Unintentional weight change Current Visit: Yes Status: Acute Code(s): R68.89 - OTHER GENERAL SYMPTOMS AND SIGNS SNOMED Code(s): 711771024 (3) Morbid obesity due to excess calories Current Visit: Yes Status: Acute Code(s): E66.01 - MORBID (SEVERE) OBESITY DUE TO EXCESS CALORIES SNOMED Code(s): 847290554 (4) COPD (chronic obstructive pulmonary disease) Current Visit: Yes Status: Acute Code(s): J44.9 - CHRONIC OBSTRUCTIVE PULMONARY DISEASE, UNSPECIFIED SNOMED Code(s): 31774261 (5) Congestive heart failure Current Visit: No Status: Acute Code(s): I50.9 - HEART FAILURE, UNSPECIFIED SNOMED Code(s): 54865068 (6) Hypothyroidism Current Visit: No Status: Acute Code(s): E03.9 - HYPOTHYROIDISM, UNSPECIFIED SNOMED Code(s): 76776441 (7) Inability to ambulate due to multiple joints Current Visit: No Status: Acute Code(s): R26.2 - DIFFICULTY IN WALKING, NOT ELSEWHERE CLASSIFIED SNOMED Code(s): 811156739 (8) Irritable bowel syndrome (IBS) Current Visit: No Status: Acute Code(s): K58.9 - IRRITABLE BOWEL SYNDROME WITHOUT DIARRHEA SNOMED Code(s): 46801954 (9) Obesity hypoventilation syndrome Current Visit: No Status: Acute Code(s): E66.2 - MORBID (SEVERE) OBESITY WITH ALVEOLAR HYPOVENTILATION SNOMED Code(s): 044915266 (10) Morbid obesity with BMI of 50.0-59.9, adult Current Visit: No Status: Chronic Code(s): E66.01 - MORBID (SEVERE) OBESITY DUE TO EXCESS CALORIES; Z68.43 - BODY MASS INDEX (BMI) 50-59.9, ADULT SNOMED Code(s): 895629212 (11) Diverticulosis large intestine w/o perforation or abscess w/bleeding Current Visit: Yes Status: Acute Code(s): K57.31 - DVRTCLOS OF LG INT W/O PERFORATION OR ABSCESS W BLEEDING SNOMED Code(s): 5558897
[2018-07-19] MEDS ORDERED: HYDROmorphone 0.5 MG/0.5 ML SYRINGE IVP PRN (12:45)
[2018-07-19] MEDS: LORazepam 0.5 MG TAB PO PRN (13:43)
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
[2018-07-19 15:09] VITALS: BMI 66.4
--- NOTE | 2018-07-19 15:18 | P.PN ---
Subjective Progress Note Date: 07/19/18 This is a pleasant 68 years old female with past medical history of atrial fibrillation, asthma/COPD, chest pain, GI bleed, posterior arthritis, pneumonia , colitis, urinary incontinence, irritable bowel syndrome, UTIs, peptic ulcer disease. C. diff. She presents with nausea vomiting and abdominal pain and diarrhea , the pain is in the left lower abdomin non radiating , non specific in character, moderate in severity has been going on for about 4-5 days. associated with watery diarreha , pt states it was 9 times 2 days ago. and twice yesterday but once today so far. it is watery with no blood in it as per pt pt with no fever, no leukocytosis, CT of the abd did not show specific cause for pt complaints. 07/13/2018 Patient still has abdominal pain. No nausea vomiting. Patient thought she has watery bowel movement from bowel preparation. Staph culture. Colonoscopy might be canceled today as patient did not have good bowel preparation however patient still wants to be done. Content the GI team for reevaluation for possible scope today. Increased pain medication of Dilaudid from 0.5 to 1 milligrams. Vital are stable. Labs are reviewed with no significant change 07/14/2018 Patient possible going for colonoscopy today. She still have pain. vitals Stable. BMP was unremarkable. Patient still needs pain medication. 07/15/2018 Patient had colonoscopy yesterday and the result showing mild diverticulosis, I did not show a possible cause for patient's symptoms. And GI follow-up is appreciated and the recommended Doppler ultrasound for further evaluation of postprandial pain to rule out chronic mesenteric ischemia. The radiology department and stated they don't do this test here. We're going to discussed with the team. Patient still complains from right lower quadrant abdominal pain , patient says that if she has this pain for more than 6 month. On and off. Associated with nausea vomiting sometimes. But states this morning she didn't have any vomiting. And she didn't have bowel movement since yesterday. However patient suddenly her vomiting is resolved and her diarrhea has been resolved. 07/16/2018 Patient continued to have right mid abdominal pain which was going on for months on and off, and currently is bothered the patient with nausea vomiting and preventing her from eating. Colonoscopy was unremarkable for finding a cause. And gastroenterology team recommended to do a duplex study to rule out mesenteric ischemia, however this study is not available at this hospital, confirmed with radiology department. We'll discuss with the gastroenterology team for the next systems. I explained to the patient risks of a by mouth she is using with a recommendation to switch from IV up, as they might contributing to her systems eventually Might cause problems and side effects. Patient accepts this recommendation and she is trying to take the oral pills rather than the IV medication. 07/17/18 pt is still complaining from pain on her right abd, she states she still has loose bowel movement. She still taking Dilaudid and Narco. I explained to the patient more than once about the risk of these medications including but not limited to the risk of cardiopulmonary depression and at rest, risk of , risk of addiction. Patient verbalized understanding that she will told me she tried to lower the need for pain medication. GI team recommended duplex to rule out mesenteric ischemia, but this test is not available from this hospital as per radiology team. We'll advance diet as tolerated. Continue patient on IV fluids 07/18/2018 Patient still have struggling with her diet and complaining of from right sided mid abdominal pain. Surgical consult is appreciated. Most likely patient have right lateral abdominal wall hernia without active small bowel obstruction. And the recommended surgical intervention, patient thinks is going to be in 1 month. Cardiology preop evaluation is ordered. Labs reviewed and are unremarkable except for anemia 10.4 hemoglobin. Vitals are stable. 07/19/2018 Patient still complaining of pain in the right lower quadrant. Surgery requested cardiac clearance for possible surgical intervention. Cardiology cleared the patient for surgery. Patient still complaining of pain. Says that some of the diet is causing her to have pain. Working with nutrition to get the right diet plan Objective - Vital Signs Vital signs: Vital Signs Temp 99.0 F 07/19/18 08:45 Pulse 83 07/19/18 10:08 Resp 20 07/19/18 08:45 BP 149/89 07/19/18 10:08 Pulse Ox 92 L 07/19/18 08:45 Intake & Output 07/18/18 07/19/18 07/19/18 18:59 06:59 18:59 Intake Total 1120 600 Output Total 900 Balance 1120 -900 600 Weight 166.922 kg 164.8 kg Intake: IV 600 Sodium Chloride 0.9% 1, 600 000 ml @ 75 mls/hr IV . [id number] BRETT Rx#:[id number] Intake, IV Titration 120 Amount Lactated Ringers 1,000 ml 120 @ 20 mls/hr IV .Q24H BRETT Rx#:[id number] Oral 1000 Output: Urine 900 Other: Voiding Method Bedside Commode Incontinent Incontinent # Voids 5 0 - Exam GENERAL: The patient is alert and oriented x3, not in any acute distress. Well developed, well nourished. HEENT: Pupils are round and equally reacting to light. EOMI. No scleral icterus. No conjunctival pallor. Normocephalic, atraumatic. No pharyngeal erythema. No thyromegaly. CARDIOVASCULAR: S1 and S2 present. No murmurs, rubs, or gallops. PULMONARY: Chest is clear to auscultation, no wheezing or crackles. -ABDOMEN: Soft, mild right lower abdominal tenderness, with no rebound tenderness nondistended, normoactive bowel sounds. No palpable organomegaly. MUSCULOSKELETAL: No joint swelling or deformity. EXTREMITIES: No cyanosis, clubbing, or pedal edema. NEUROLOGICAL: Gross neurological examination did not reveal any focal deficits. SKIN: No rashes. - Labs CBC & Chem 7: 07/19/18 08:25 07/19/18 08:25 Labs: Abnormal Lab Results - Last 24 Hours (Table) 07/19/18 07/19/18 Range/Units 08:25 08:25 RDW 15.9 H (11.5-15.5) % BUN 5 L (7-17) mg/dL Glucose 108 H (74-99) mg/dL Assessment and Plan Assessment: Gastroenteritis-like picture, with chronic right lower quadrant abdominal pain Diverticulosis, without inflammation. History of atrial fibrillation History of C. diff History of coronary artery disease and heart failure History of colitis History of irritable bowel syndrome History of urine incontinence. Plan: We'll continue pain management Continue diet regimen. Patient to work with nutrition to see what diet plan works for her so that she can go home and have surgery We will for surgeries on recommendations DVT and GI prophylaxis We'll order for lab work in the morning We'll follow up on the patient
[2018-07-19] MEDS: ONDANSETRON 4 MG/2 ML VIAL IVP PRN (22:34)
[2018-07-19] MEDS: MELATONIN 5 MG TABLET PO SCH (22:35)
[2018-07-19] MEDS: QUEtiapine 25 MG TAB PO SCH (22:35)
--- NOTE | 2018-07-19 23:02 | P.PN ---
Subjective Progress Note Date: 07/19/18 Principal diagnosis: Abdominal pain, diarrhea Patient has had her diet advanced which she is tolerated. She continues to complain of abdominal pain. She continues to report loose stool. Objective - Vital Signs Vital signs: Vital Signs Temp 98.3 F 07/19/18 19:35 Pulse 86 07/19/18 19:35 Resp 14 07/19/18 19:35 BP 131/79 07/19/18 19:35 Pulse Ox 94 L 07/19/18 19:35 Intake & Output 07/19/18 07/19/18 07/20/18 06:59 18:59 06:59 Intake Total 600 Output Total 900 Balance -900 600 Weight 164.8 kg Intake: IV 600 Sodium Chloride 0.9% 1, 600 000 ml @ 75 mls/hr IV . [id number] BRETT Rx#:[id number] Output: Urine 900 Other: Voiding Method Incontinent Incontinent # Voids 0 - Exam On physical examination, patient appears comfortable in no apparent distress. HEAD: Normocephalic, atraumatic. EYES: No scleral icterus. No conjunctival injection. MOUTH: No lesions, tongue midline. NECK: Trachea midline, no gross abnormalities. CHEST: Clear to auscultation with no wheezing or rhonchi appreciated. HEART: Regular rate and rhythm. ABDOMEN: Soft, obese. Bowel sounds are positive. No organomegaly. No guarding or rigidity. EXTREMITIES: Bilateral pedal edema. SKIN: No rashes, no jaundice. NEUROLOGIC: Alert and oriented x3. No focal deficits. - Labs CBC & Chem 7: 07/19/18 08:25 07/19/18 08:25 Labs: Abnormal Lab Results - Last 24 Hours (Table) 07/19/18 07/19/18 Range/Units 08:25 08:25 RDW 15.9 H (11.5-15.5) % BUN 5 L (7-17) mg/dL Glucose 108 H (74-99) mg/dL Assessment and Plan (1) Abdominal pain Narrative/Plan: Patient continues to complain of right-sided abdominal pain improved with bowel movements and worsened with food with negative imaging studies. She also had upper endoscopy in April which was negative for any etiology to explain her pain and a colonoscopy on this admission which did not show any pathology to explain patient's pain. The patient reports she has tried multiple medications for control the pain in the past with no success. Unclear etiology with differential including a functional disorder, in the setting of known irritable bowel syndrome. Current Visit: Yes Status: Acute Code(s): R10.9 - UNSPECIFIED ABDOMINAL PAIN SNOMED Code(s): 32889769 (2) Irritable bowel syndrome with diarrhea Current Visit: No Status: Chronic Code(s): K58.0 - IRRITABLE BOWEL SYNDROME WITH DIARRHEA SNOMED Code(s): 009766251 Plan: Supportive care Diet as tolerated Computed tomography scan reviewed Dicyclomine as needed Recent upper endoscopy and colonoscopy performed on this admission Continue fluid hydration Surgical consult appreciated, plan is for No further recommendations by the gastroenterology service at this time, the patient was follow-up in the outpatient setting for a further workup and treatment of her irritable bowel syndrome Thank you for allowing us to participate in the care of this patient, we will sign off, please call us back with any questions or concerns
[2018-07-20] MEDS: HYDROcodone/APAP 10-325MG 1 EACH TAB PO PRN ×3 (00:45→20:18)
[2018-07-20] MEDS: HYDROmorphone 1 MG/ML 1 ML SYRINGE IVP PRN ×7 (02:34→21:30)
[2018-07-20] MEDS: LEVOTHYROXINE 75 MCG TAB PO SCH (05:32)
[2018-07-20] MEDS: PANTOPRAZOLE 40 MG TABLET PO SCH (08:25)
[2018-07-20] MEDS: FUROSEMIDE 40 MG TAB PO SCH (08:28)
[2018-07-20] MEDS: DICYCLOMINE 20 MG TAB PO SCH ×4 (08:28→22:21)
[2018-07-20 11:27] LABS: Appearance,Urine Turbid (Clear); Bacteria,Urine Occasional /hpf; Bilirubin,Urine Negative (Negative); Blood,Urine Small (Negative); Color,Urine Yellow; Glucose,Urine (UA) Negative (Negative); Ketones,Urine Negative (Negative); Leukocyte Esterase,Urine Large (Negative); Mucus,Urine Rare /hpf; Nitrite,Urine Positive (Negative); Protein,Urine 1+ (Negative); RBC,Urine 7 /hpf (0-5); Specific Gravity,Urine 1.017 (1.001-1.035); Squamous Epithelial Cell,Urine 7 /hpf (0-4); WBC,Urine >182 /hpf (0-5)
[2018-07-20 11:59] LABS: Basophils % (A) 0 %; Eosinophils # (A) 0.3 k/uL (0-0.7); Eosinophils % (A) 5 %; HCT 34.5 % (34.0-46.0); HGB 11.1 gm/dL (11.4-16.0); Lymphocytes # (A) 0.9 k/uL (1.0-4.8); Lymphocytes % (A) 13 %; MCH 26.4 pg (25.0-35.0); MCHC 32.1 g/dL (31.0-37.0); MCV 82.3 fL (80.0-100.0); Mean Platelet Volume 7.8; Monocytes # (A) 0.4 k/uL (0-1.0); Monocytes % (A) 6 %; Neutrophils # (A) 4.9 k/uL (1.3-7.7); Neutrophils % (A) 74 %; Platelet Count 326 k/uL (150-450); RBC 4.19 m/uL (3.80-5.40); RDW 15.7 % (11.5-15.5); WBC 6.7 k/uL (3.8-10.6)
--- NOTE | 2018-07-20 12:02 | ECHOF ---
Referral Reason:pre op MEASUREMENTS -------- HEIGHT: 157.5 cm WEIGHT: 164.7 kg BP: IVSd: 1.6 cm (0.6 - 1.1) LVIDd: 4.4 cm (3.9 - 5.3) LVPWd: 1.6 cm (0.6 - 1.1) IVSs: 1.8 cm LVIDs: 2.5 cm LVPWs: 1.9 cm Ao Diam: 2.8 cm (2.0 - 3.7) AV Cusp: 2.3 cm (1.5 - 2.6) LA Diam: 3.2 cm (2.7 - 3.8) MV E Izaiah: 1.08 m/s MV DecT: 149 ms MV A Izaiah: 0.60 m/s MV E/A Ratio: 1.79 RAP: 5.00 mmHg RVSP: 12.42 mmHg FINDINGS -------- Sinus rhythm. This was a technically difficult study with suboptimal views. Morbid Obesity Limited Study The left ventricular size is normal. There is moderate concentric left ventricular hypertrophy. O verall left ventricular systolic function is normal with, an EF between 55 - 60 %. The RV was not well visualized. The left atrium was not well visualized. The right atrium was not well visualized. Lumason used The aortic valve was not well visualized. The mitral valve was not well visualized. The tricuspid valve was not well visualized. The pulmonic valve was not well visualized. CONCLUSIONS -------- 1. Sinus rhythm. 2. This was a technically difficult study with suboptimal views. 3. Morbid Obesity 4. Limited Study 5. The left ventricular size is normal. 6. There is moderate concentric left ventricular hypertrophy. 7. Overall left ventricular systolic function is normal with, an EF between 55 - 60 %. 8. The RV was not well visualized. 9. The left atrium was not well visualized. 10. The right atrium was not well visualized. 11. Lumason used 12. The aortic valve was not well visualized. 13. The mitral valve was not well visualized. 14. The tricuspid valve was not well visualized. 15. The pulmonic valve was not well visualized. BILLING COLLECTIONS SPECIALIST: Christina Patel [facility]
[2018-07-20 12:03] LABS: Anion Gap 5 mmol/L; Blood Urea Nitrogen 11 mg/dL (7-17); Calcium 9.1 mg/dL (8.4-10.2); Carbon Dioxide 34 mmol/L (22-30); Chloride 101 mmol/L (98-107); Glucose 107 mg/dL (74-99); Potassium 4.1 mmol/L (3.5-5.1); Sodium 140 mmol/L (137-145)
[2018-07-20 14:49] VITALS: RESP 16
--- NOTE | 2018-07-20 18:14 | P.PN ---
Subjective Progress Note Date: 07/20/18 CHIEF COMPLAINT: Chronic abdominal pain HISTORY OF PRESENT ILLNESS: The patient is 68-year-old female with super morbid obesity comes in her chronic abdominal pain. Imaging studies were consistent with fat containing right lower quadrant abdominal wall hernia. Cardiology assessment completed. Patient had been seen by bariatric dietitian for adjustment of her diet. PHYSICAL EXAM: VITAL SIGNS: Reviewed. GENERAL: Well-developed in no acute distress. HEENT: No sclera icterus. Extraocular movements grossly intact. Moist buccal mucosa. Head is atraumatic, normocephalic. Hears conversational speech. No nasal drainage. NECK: Supple without lymphadenopathy. CHEST: Non-labored respirations and equal bilateral excursions. CARDIOVASCULAR: Palpable 2+ radial pulses. ABDOMEN: Soft. Nondistended. No peritonitis on exam. Mild tenderness right lower quadrant. MUSCULOSKELETAL: No clubbing, cyanosis or edema. NEUROLOGIC: No focal or lateralizing signs. Cranial nerves II through XII grossly intact. PSYCH: Appropriate affect. Alert and oriented to person, place and time. SKIN: Well perfused. Good skin turgor. ASSESSMENT: 1. Super morbid obesity, BMI 66.5 2. Chronic right lower quadrant abdominal pain 3. Right lower quadrant ventral hernia without obstruction PLAN: 1. Outpatient management for robotic assisted ventral hernia described given patient's large body habitus. 2. Additionally, patient has inadequate protein intake. We'll need at least 4 weeks of optimal nutrition prior to surgical intervention. 3. Care plan described to patient for which outpatient surgical intervention reviewed. Objective - Vital Signs Vital signs: Vital Signs Temp 99.1 F 07/20/18 14:48 Pulse 88 07/20/18 14:48 Resp 16 07/20/18 14:48 BP 129/80 07/20/18 14:48 Pulse Ox 93 L 07/20/18 14:48 Intake & Output 07/19/18 07/20/18 07/20/18 18:59 06:59 18:59 Intake Total 600 975 Balance 600 975 Weight 164.8 kg Intake: IV 600 Sodium Chloride 0.9% 1, 600 000 ml @ 75 mls/hr IV . [id number] BRETT Rx#:[id number] Intake, IV Titration 825 Amount Sodium Chloride 0.9% 1, 825 000 ml @ 75 mls/hr IV . [id number] BRETT Rx#:[id number] Oral 150 Other: Voiding Method Incontinent Bedside Commode # Voids 1 2 - Labs CBC & Chem 7: 07/20/18 10:49 07/20/18 10:49 Labs: Abnormal Lab Results - Last 24 Hours (Table) 07/20/18 07/20/18 07/20/18 Range/Units 10:09 10:49 10:49 Hgb 11.1 L (11.4-16.0) gm/dL RDW 15.7 H (11.5-15.5) % Lymphocytes # 0.9 L (1.0-4.8) k/uL Carbon Dioxide 34 H (22-30) mmol/L Glucose 107 H (74-99) mg/dL Urine Appearance Turbid H (Clear) Urine Protein 1+ H (Negative) Urine Blood Small H (Negative) Urine Nitrite Positive H (Negative) Ur Leukocyte Esterase Large H (Negative) Urine RBC 7 H (0-5) /hpf Urine WBC >182 H (0-5) /hpf Urine WBC Clumps Many H (None) /hpf Ur Squamous Epith Cells 7 H (0-4) /hpf Urine Bacteria Occasional H (None) /hpf Urine Mucus Rare H (None) /hpf Microbiology - Last 24 Hours (Table) 07/20/18 10:09 Urine Culture - Preliminary Urine,Clean Catch Assessment and Plan (1) Right lower quadrant abdominal pain Current Visit: Yes Status: Acute Code(s): R10.31 - RIGHT LOWER QUADRANT PAIN SNOMED Code(s): 545574759 (2) Unintentional weight change Current Visit: Yes Status: Acute Code(s): R68.89 - OTHER GENERAL SYMPTOMS AND SIGNS SNOMED Code(s): 360455488 (3) Morbid obesity due to excess calories Current Visit: Yes Status: Acute Code(s): E66.01 - MORBID (SEVERE) OBESITY DUE TO EXCESS CALORIES SNOMED Code(s): 257508931 (4) COPD (chronic obstructive pulmonary disease) Current Visit: Yes Status: Acute Code(s): J44.9 - CHRONIC OBSTRUCTIVE PULMONARY DISEASE, UNSPECIFIED SNOMED Code(s): 76653932 (5) Congestive heart failure Current Visit: No Status: Acute Code(s): I50.9 - HEART FAILURE, UNSPECIFIED SNOMED Code(s): 29763925 (6) Hypothyroidism Current Visit: No Status: Acute Code(s): E03.9 - HYPOTHYROIDISM, UNSPECIFIED SNOMED Code(s): 84345554 (7) Inability to ambulate due to multiple joints Current Visit: No Status: Acute Code(s): R26.2 - DIFFICULTY IN WALKING, NOT ELSEWHERE CLASSIFIED SNOMED Code(s): 735445780 (8) Irritable bowel syndrome (IBS) Current Visit: No Status: Acute Code(s): K58.9 - IRRITABLE BOWEL SYNDROME WITHOUT DIARRHEA SNOMED Code(s): 86970469 (9) Obesity hypoventilation syndrome Current Visit: No Status: Acute Code(s): E66.2 - MORBID (SEVERE) OBESITY WITH ALVEOLAR HYPOVENTILATION SNOMED Code(s): 404440643 (10) Morbid obesity with BMI of 50.0-59.9, adult Current Visit: No Status: Chronic Code(s): E66.01 - MORBID (SEVERE) OBESITY DUE TO EXCESS CALORIES; Z68.43 - BODY MASS INDEX (BMI) 50-59.9, ADULT SNOMED Code(s): 597302627 (11) Diverticulosis large intestine w/o perforation or abscess w/bleeding Current Visit: Yes Status: Acute Code(s): K57.31 - DVRTCLOS OF LG INT W/O PERFORATION OR ABSCESS W BLEEDING SNOMED Code(s): 7187506 (12) Ventral hernia Current Visit: Yes Status: Acute Code(s): K43.9 - VENTRAL HERNIA WITHOUT OBSTRUCTION OR GANGRENE SNOMED Code(s): 252217582 (13) Chronic abdominal pain Current Visit: Yes Status: Acute Code(s): R10.9 - UNSPECIFIED ABDOMINAL PAIN ; G89.29 - OTHER CHRONIC PAIN SNOMED Code(s): 668427303 (14) Peritoneal adhesions Current Visit: Yes Status: Acute Code(s): K66.0 - PERITONEAL ADHESIONS ( POSTPROCEDURAL) (POSTINFECTION) SNOMED Code(s): 98418875 (15) Medical non-compliance Current Visit: Yes Status: Acute Code(s): Z91.19 - PATIENT'S NONCOMPLIANCE W OTH MEDICAL TREATMENT AND REGIMEN SNOMED Code(s): 607034469
--- NOTE | 2018-07-20 20:24 | P.PN ---
Subjective Progress Note Date: 07/20/18 This is a pleasant 68 years old female with past medical history of atrial fibrillation, asthma/COPD, chest pain, GI bleed, posterior arthritis, pneumonia , colitis, urinary incontinence, irritable bowel syndrome, UTIs, peptic ulcer disease. C. diff. She presents with nausea vomiting and abdominal pain and diarrhea , the pain is in the left lower abdomin non radiating , non specific in character, moderate in severity has been going on for about 4-5 days. associated with watery diarreha , pt states it was 9 times 2 days ago. and twice yesterday but once today so far. it is watery with no blood in it as per pt pt with no fever, no leukocytosis, CT of the abd did not show specific cause for pt complaints. 07/13/2018 Patient still has abdominal pain. No nausea vomiting. Patient thought she has watery bowel movement from bowel preparation. Staph culture. Colonoscopy might be canceled today as patient did not have good bowel preparation however patient still wants to be done. Content the GI team for reevaluation for possible scope today. Increased pain medication of Dilaudid from 0.5 to 1 milligrams. Vital are stable. Labs are reviewed with no significant change 07/14/2018 Patient possible going for colonoscopy today. She still have pain. vitals Stable. BMP was unremarkable. Patient still needs pain medication. 07/15/2018 Patient had colonoscopy yesterday and the result showing mild diverticulosis, I did not show a possible cause for patient's symptoms. And GI follow-up is appreciated and the recommended Doppler ultrasound for further evaluation of postprandial pain to rule out chronic mesenteric ischemia. The radiology department and stated they don't do this test here. We're going to discussed with the team. Patient still complains from right lower quadrant abdominal pain , patient says that if she has this pain for more than 6 month. On and off. Associated with nausea vomiting sometimes. But states this morning she didn't have any vomiting. And she didn't have bowel movement since yesterday. However patient suddenly her vomiting is resolved and her diarrhea has been resolved. 07/16/2018 Patient continued to have right mid abdominal pain which was going on for months on and off, and currently is bothered the patient with nausea vomiting and preventing her from eating. Colonoscopy was unremarkable for finding a cause. And gastroenterology team recommended to do a duplex study to rule out mesenteric ischemia, however this study is not available at this hospital, confirmed with radiology department. We'll discuss with the gastroenterology team for the next systems. I explained to the patient risks of a by mouth she is using with a recommendation to switch from IV up, as they might contributing to her systems eventually Might cause problems and side effects. Patient accepts this recommendation and she is trying to take the oral pills rather than the IV medication. 07/17/18 pt is still complaining from pain on her right abd, she states she still has loose bowel movement. She still taking Dilaudid and Narco. I explained to the patient more than once about the risk of these medications including but not limited to the risk of cardiopulmonary depression and at rest, risk of , risk of addiction. Patient verbalized understanding that she will told me she tried to lower the need for pain medication. GI team recommended duplex to rule out mesenteric ischemia, but this test is not available from this hospital as per radiology team. We'll advance diet as tolerated. Continue patient on IV fluids 07/18/2018 Patient still have struggling with her diet and complaining of from right sided mid abdominal pain. Surgical consult is appreciated. Most likely patient have right lateral abdominal wall hernia without active small bowel obstruction. And the recommended surgical intervention, patient thinks is going to be in 1 month. Cardiology preop evaluation is ordered. Labs reviewed and are unremarkable except for anemia 10.4 hemoglobin. Vitals are stable. 07/19/2018 Patient still complaining of pain in the right lower quadrant. Surgery requested cardiac clearance for possible surgical intervention. Cardiology cleared the patient for surgery. Patient still complaining of pain. Says that some of the diet is causing her to have pain. Working with nutrition to get the right diet plan 2017 Patient still complaining of pain the the right lower quadrant. She was also c/ o burning urine and suprapubic pain. Sheis toleratong food. no chest pain, no racing heart, no cough, no sob, no vomiting, no headache, no itch , no rash Objective - Vital Signs Vital signs: Vital Signs Temp 99.1 F 07/20/18 14:48 Pulse 88 07/20/18 14:48 Resp 16 07/20/18 14:48 BP 129/80 07/20/18 14:48 Pulse Ox 93 L 07/20/18 14:48 Intake & Output 07/20/18 07/20/18 07/21/18 06:59 18:59 06:59 Intake Total 975 Balance 975 Intake: Intake, IV Titration 825 Amount Sodium Chloride 0.9% 1, 825 000 ml @ 75 mls/hr IV . [id number] BRETT Rx#:[id number] Oral 150 Other: Voiding Method Bedside Commode # Voids 1 2 - Exam GENERAL: The patient is alert and oriented x3, not in any acute distress. Well developed, well nourished. HEENT: Pupils are round and equally reacting to light. EOMI. No scleral icterus. No conjunctival pallor. Normocephalic, atraumatic. No pharyngeal erythema. No thyromegaly. CARDIOVASCULAR: S1 and S2 present. No murmurs, rubs, or gallops. PULMONARY: Chest is clear to auscultation, no wheezing or crackles. -ABDOMEN: Soft, mild right lower abdominal tenderness, with no rebound tenderness nondistended, normoactive bowel sounds. No palpable organomegaly. MUSCULOSKELETAL: No joint swelling or deformity. EXTREMITIES: No cyanosis, clubbing, or pedal edema. NEUROLOGICAL: Gross neurological examination did not reveal any focal deficits. SKIN: No rashes. - Labs CBC & Chem 7: 07/20/18 10:49 07/20/18 10:49 Labs: Abnormal Lab Results - Last 24 Hours (Table) 07/20/18 07/20/18 07/20/18 Range/Units 10:09 10:49 10:49 Hgb 11.1 L (11.4-16.0) gm/dL RDW 15.7 H (11.5-15.5) % Lymphocytes # 0.9 L (1.0-4.8) k/uL Carbon Dioxide 34 H (22-30) mmol/L Glucose 107 H (74-99) mg/dL Urine Appearance Turbid H (Clear) Urine Protein 1+ H (Negative) Urine Blood Small H (Negative) Urine Nitrite Positive H (Negative) Ur Leukocyte Esterase Large H (Negative) Urine RBC 7 H (0-5) /hpf Urine WBC >182 H (0-5) /hpf Urine WBC Clumps Many H (None) /hpf Ur Squamous Epith Cells 7 H (0-4) /hpf Urine Bacteria Occasional H (None) /hpf Urine Mucus Rare H (None) /hpf Microbiology - Last 24 Hours (Table) 07/20/18 10:09 Urine Culture - Preliminary Urine,Clean Catch Assessment and Plan Assessment: 1. Gastroenteritis-like picture, with chronic right lower quadrant abdominal pain 2. Diverticulosis, without inflammation. 3. UTI 4. History of atrial fibrillation 5. History of C. diff 6. History of coronary artery disease and heart failure 7. History of colitis 8. History of irritable bowel syndrome 9. History of urine incontinence. Plan: We'll continue pain management UA was orderd which was positive. culture aand sensitivity sent. Started on rocephin Continue diet regimen. Patient to work with nutrition to see what diet plan works for her so that she can go home and have surgery Awaiting further recommendations form surgery GI signed off DVT and GI prophylaxis We'll order for lab work in the morning We'll follow up on the patient Time with Patient: Greater than 30
[2018-07-20] MEDS: LACTATED RINGERS 1,000 ML IV SCH (21:24)
[2018-07-20] MEDS: MELATONIN 5 MG TABLET PO SCH (21:29)
[2018-07-20] MEDS: QUEtiapine 25 MG TAB PO SCH (21:29)
[2018-07-21] MEDS: HYDROmorphone 1 MG/ML 1 ML SYRINGE IVP PRN ×4 (00:36→10:43)
[2018-07-21] MEDS: HYDROcodone/APAP 10-325MG 1 EACH TAB PO PRN ×2 (02:27→14:09)
[2018-07-21] MEDS: LEVOTHYROXINE 75 MCG TAB PO SCH (05:43)
[2018-07-21] MEDS: PANTOPRAZOLE 40 MG TABLET PO SCH (07:44)
[2018-07-21 07:54] VITALS: BP 108/67; PULSE 85; TEMP 97.8
[2018-07-21] MEDS ORDERED: CIPROFLOXACIN HCL 500 MG TAB PO SCH (09:00)
--- NOTE | 2018-07-21 09:14 | P.DS ---
Providers Date of admission: 07/13/18 19:11 Expected date of discharge: 07/21/18 Attending physician: Desmond Narayanan Consults: 07/17/18 18:07 Consult Physician Routine Consulting Provider: Veronica Max Consult Reason/Comments: abdominal pain Do you want consulting provider notified?: Yes 07/18/18 11:41 Consult Physician Routine Consulting Provider: Kajal Cruz Consult Reason/Comments: preop clearance Do you want consulting provider notified?: Yes Primary care physician: [facility] Course: Discharge diagnoses #1. Right low quadrant chronic abdominal pain possibly due to ventral hernia. Possibly need outpatient surgical intervention #2. UTI patient was discharged on Cipro #3. History of A. fib #4. History of COPD #5. History of C. diff his is a pleasant 68 years old female with past medical history of atrial fibrillation, asthma/COPD, chest pain, GI bleed, posterior arthritis, pneumonia , colitis, urinary incontinence, irritable bowel syndrome, UTIs, peptic ulcer disease. C. diff. She presents with nausea vomiting and abdominal pain and diarrhea , the pain is in the left lower abdomin non radiating , non specific in character, moderate in severity has been going on for about 4-5 days. associated with watery diarreha , pt states it was 9 times 2 days ago. and twice yesterday but once today so far. it is watery with no blood in it as per pt pt with no fever, no leukocytosis, CT of the abd did not show specific cause for pt complaints. 07/13/2018 Patient still has abdominal pain. No nausea vomiting. Patient thought she has watery bowel movement from bowel preparation. Staph culture. Colonoscopy might be canceled today as patient did not have good bowel preparation however patient still wants to be done. Content the GI team for reevaluation for possible scope today. Increased pain medication of Dilaudid from 0.5 to 1 milligrams. Vital are stable. Labs are reviewed with no significant change 07/14/2018 Patient possible going for colonoscopy today. She still have pain. vitals Stable. BMP was unremarkable. Patient still needs pain medication. 07/15/2018 Patient had colonoscopy yesterday and the result showing mild diverticulosis, I did not show a possible cause for patient's symptoms. And GI follow-up is appreciated and the recommended Doppler ultrasound for further evaluation of postprandial pain to rule out chronic mesenteric ischemia. The radiology department and stated they don't do this test here. We're going to discussed with the team. Patient still complains from right lower quadrant abdominal pain , patient says that if she has this pain for more than 6 month. On and off. Associated with nausea vomiting sometimes. But states this morning she didn't have any vomiting. And she didn't have bowel movement since yesterday. However patient suddenly her vomiting is resolved and her diarrhea has been resolved. 07/16/2018 Patient continued to have right mid abdominal pain which was going on for months on and off, and currently is bothered the patient with nausea vomiting and preventing her from eating. Colonoscopy was unremarkable for finding a cause. And gastroenterology team recommended to do a duplex study to rule out mesenteric ischemia, however this study is not available at this hospital, confirmed with radiology department. We'll discuss with the gastroenterology team for the next systems. I explained to the patient risks of a by mouth she is using with a recommendation to switch from IV up, as they might contributing to her systems eventually Might cause problems and side effects. Patient accepts this recommendation and she is trying to take the oral pills rather than the IV medication. 07/17/18 pt is still complaining from pain on her right abd, she states she still has loose bowel movement. She still taking Dilaudid and Narco. I explained to the patient more than once about the risk of these medications including but not limited to the risk of cardiopulmonary depression and at rest, risk of , risk of addiction. Patient verbalized understanding that she will told me she tried to lower the need for pain medication. GI team recommended duplex to rule out mesenteric ischemia, but this test is not available from this hospital as per radiology team. We'll advance diet as tolerated. Continue patient on IV fluids 07/18/2018 Patient still have struggling with her diet and complaining of from right sided mid abdominal pain. Surgical consult is appreciated. Most likely patient have right lateral abdominal wall hernia without active small bowel obstruction. And the recommended surgical intervention, patient thinks is going to be in 1 month. Cardiology preop evaluation is ordered. Labs reviewed and are unremarkable except for anemia 10.4 hemoglobin. Vitals are stable. 07/19/2018 Patient still complaining of pain in the right lower quadrant. Surgery requested cardiac clearance for possible surgical intervention. Cardiology cleared the patient for surgery. Patient still complaining of pain. Says that some of the diet is causing her to have pain. Working with nutrition to get the right diet plan 2017 Patient still complaining of pain the the right lower quadrant. She was also c/ o burning urine and suprapubic pain. Sheis toleratong food. no chest pain, no racing heart, no cough, no sob, no vomiting, no headache, no itch , no rash 07/21/2018 On the day of discharge the patient was still complaining of pain was a still same. The patient is tolerating diet. She has had a bowel movement yet but is passing gases. We'll probably discharge her on her pain medications at home, Bentyl and some laxatives to help with the bowel movements if okay with general surgery. On the day of discharge Patient's vitals were stable Gen-patient alert oriented seems to be no distress HEENT-head atraumatic normocephalic no pain no discharge from the ear or nose, throat no erythema no exudate CVS-S1-S2 positive Respiratory-normal breath sounds no rhonchi rales or wheezing Abdomen-soft, tender in the rigth lower quadrant,bowel sounds present Neuro-alert oriented 3, reflexes +2 positive all extremities, strength 5/5 positive all extremities Patient Condition at Discharge: Fair Plan - Discharge Summary Discharge Rx Participant: No New Discharge Prescriptions: New Ciprofloxacin HCl [Cipro] 500 mg PO BID #14 tab Dicyclomine [Bentyl] 20 mg PO QID #15 tab Continue Pramipexole [Mirapex] 0.25 mg PO HS Omeprazole [PriLOSEC] 20 mg PO AC-BID Furosemide [Lasix] 40 mg PO DAILY HYDROcodone/APAP 10-325MG [[place] 10-325] 1 tab PO QID PRN PRN Reason: Pain QUEtiapine [SEROquel] 25 mg PO HS Melatonin 10 mg PO HS Levothyroxine Sodium [Synthroid] 150 mcg PO DAILY guaiFENesin [Mucinex] 600 mg PO Q12H PRN PRN Reason: Congestion Albuterol Nebulized [Ventolin Nebulized] 2.5 mg INHALATION RT-Q4H PRN PRN Reason: Shortness Of Breath Pregabalin [Lyrica] 50 mg PO DAILY LORazepam [Ativan] 0.5 mg PO BID PRN PRN Reason: Anxiety Ondansetron [Zofran ODT] 8 mg PO Q8H Discharge Medication List Pramipexole [Mirapex] 0.25 mg PO HS 01/23/18 [History] Omeprazole [PriLOSEC] 20 mg PO AC-BID 04/19/18 [History] Furosemide [Lasix] 40 mg PO DAILY 05/17/18 [History] HYDROcodone/APAP 10-325MG [[place] 10-325] 1 tab PO QID PRN 05/17/18 [History] Albuterol Nebulized [Ventolin Nebulized] 2.5 mg INHALATION RT-Q4H PRN 06/18/18 [ History] LORazepam [Ativan] 0.5 mg PO BID PRN 06/18/18 [History] Levothyroxine Sodium [Synthroid] 150 mcg PO DAILY 06/18/18 [History] Melatonin 10 mg PO HS 06/18/18 [History] Pregabalin [Lyrica] 50 mg PO DAILY 06/18/18 [History] QUEtiapine [SEROquel] 25 mg PO HS 06/18/18 [History] guaiFENesin [Mucinex] 600 mg PO Q12H PRN 06/18/18 [History] Ondansetron [Zofran ODT] 8 mg PO Q8H 07/11/18 [History] Ciprofloxacin HCl [Cipro] 500 mg PO BID #14 tab 07/21/18 [Rx] Dicyclomine [Bentyl] 20 mg PO QID #15 tab 07/21/18 [Rx] Follow up Appointment(s)/Referral(s): Jorje Domingo MD [Primary Care Provider] - 1-2 days Activity/Diet/Wound Care/Special Instructions: DC PENDING FURTHER RECOMMENDATIONS FROM GENERAL SURGERY Discharge Disposition: HOME SELF-CARE
[2018-07-21 09:22] LABS: Anion Gap 8 mmol/L; Blood Urea Nitrogen 12 mg/dL (7-17); Calcium 9.3 mg/dL (8.4-10.2); Carbon Dioxide 29 mmol/L (22-30); Chloride 104 mmol/L (98-107); Glucose 133 mg/dL (74-99); Sodium 141 mmol/L (137-145)
[2018-07-21 10:11] LABS: Basophils % (A) 1 %; Eosinophils # (A) 0.4 k/uL (0-0.7); Eosinophils % (A) 8 %; HCT 34.3 % (34.0-46.0); Hypochromasia Slight; Lymphocytes # (A) 1.1 k/uL (1.0-4.8); Lymphocytes % (A) 22 %; MCH 26.3 pg (25.0-35.0); MCV 82.3 fL (80.0-100.0); Mean Platelet Volume 7.7; Monocytes # (A) 0.3 k/uL (0-1.0); Monocytes % (A) 7 %; Neutrophils % (A) 61 %; Platelet Count 318 k/uL (150-450); RBC 4.17 m/uL (3.80-5.40); RDW 15.3 % (11.5-15.5)
[2018-07-21] MEDS: DICYCLOMINE 20 MG TAB PO SCH ×2 (10:39→14:05)
[2018-07-21] MEDS: FUROSEMIDE 40 MG TAB PO SCH (10:40)
== END 2018-07-21 16:13 | disposition home or self-care (01) | DRG 394 ==
LOC: EC 10:17 → 4SSUR 19:07 → OBSVTOIN 07-13 19:11
PROVIDERS: ADMIT Internal Medicine; ATTEND Internal Medicine
PROC: 0DBL8ZX Excision of Transverse Colon, Via Natural or Artificial Opening Endoscopic, Diagnostic (ICD-10-PCS; principal; 2018-07-14 09:00)
PROC: 0DBG8ZX Excision of Left Large Intestine, Via Natural or Artificial Opening Endoscopic, Diagnostic (ICD-10-PCS; principal; 2018-07-14 09:00)
PROC: 0DBF8ZX Excision of Right Large Intestine, Via Natural or Artificial Opening Endoscopic, Diagnostic (ICD-10-PCS; principal; 2018-07-14 09:00)
DX: K43.9 Ventral hernia without obstruction or gangrene (principal); E66.2 Morbid (severe) obesity with alveolar hypoventilation; Z68.44 Body mass index [BMI] 60.0-69.9, adult; K55.1 Chronic vascular disorders of intestine; I42.9 Cardiomyopathy, unspecified; N39.0 Urinary tract infection, site not specified; I11.0 Hypertensive heart disease with heart failure; I50.9 Heart failure, unspecified; R15.9 Full incontinence of feces; M51.24 Other intervertebral disc displacement, thoracic region; J44.9 Chronic obstructive pulmonary disease, unspecified; D64.9 Anemia, unspecified; G89.29 Other chronic pain; K21.9 Gastro-esophageal reflux disease without esophagitis; K44.9 Diaphragmatic hernia without obstruction or gangrene; M79.7 Fibromyalgia; K58.0 Irritable bowel syndrome with diarrhea; K64.8 Other hemorrhoids; K57.30 Diverticulosis of large intestine without perforation or abscess without bleeding; F32.9 Major depressive disorder, single episode, unspecified; F41.9 Anxiety disorder, unspecified; K22.70 Barrett's esophagus without dysplasia; E03.9 Hypothyroidism, unspecified; N39.41 Urge incontinence; M19.90 Unspecified osteoarthritis, unspecified site; I25.2 Old myocardial infarction; I25.10 Atherosclerotic heart disease of native coronary artery without angina pectoris; K66.0 Peritoneal adhesions (postprocedural) (postinfection); M51.27 Other intervertebral disc displacement, lumbosacral region; M51.26 Other intervertebral disc displacement, lumbar region; L30.9 Dermatitis, unspecified; Z91.11 Patient's noncompliance with dietary regimen; Z71.3 Dietary counseling and surveillance; Z79.890 Hormone replacement therapy; Z79.899 Other long term (current) drug therapy; Z86.79 Personal history of other diseases of the circulatory system; Z87.01 Personal history of pneumonia (recurrent); Z87.440 Personal history of urinary (tract) infections; Z85.42 Personal history of malignant neoplasm of other parts of uterus; Z87.11 Personal history of peptic ulcer disease; Z87.442 Personal history of urinary calculi; Z86.19 Personal history of other infectious and parasitic diseases; Z90.49 Acquired absence of other specified parts of digestive tract; Z96.653 Presence of artificial knee joint, bilateral; Z96.642 Presence of left artificial hip joint; Z87.81 Personal history of (healed) traumatic fracture; Z87.19 Personal history of other diseases of the digestive system; Z90.710 Acquired absence of both cervix and uterus; Z88.5 Allergy status to narcotic agent; Z88.8 Allergy status to other drugs, medicaments and biological substances; Z91.041 Radiographic dye allergy status; Z82.49 Family history of ischemic heart disease and other diseases of the circulatory system; Z80.1 Family history of malignant neoplasm of trachea, bronchus and lung; Z80.52 Family history of malignant neoplasm of bladder; Z83.49 Family history of other endocrine, nutritional and metabolic diseases; Z82.3 Family history of stroke
CPT/HCPCS: 36415; 45380; 71046; 74176; 80048; 80053; 81001; 81003; 82150; 82550; 82553; 83605; 83690; 83880; 84484; 85025; 85610; 85730; 87040; 87077; 87086; 87186; 88305; 93005; 93306; 96361; 96372; 96374; 96375; 96376; 99285

== ENCOUNTER 2018-08-07 14:56 | Observation (INO) | payer MEDICARE, OTHER ==
[2018-08-07] MEDS ORDERED: SODIUM CHLORIDE 0.9% 500 ML 500 ML IV STA (15:59)
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
[2018-08-07 16:25] LABS: Basophils % (A) 0 %; Eosinophils # (A) 0.2 k/uL (0-0.7); Eosinophils % (A) 3 %; HCT 36.1 % (34.0-46.0); HGB 11.9 gm/dL (11.4-16.0); Lymphocytes # (A) 1.2 k/uL (1.0-4.8); Lymphocytes % (A) 13 %; MCH 26.5 pg (25.0-35.0); MCHC 32.9 g/dL (31.0-37.0); MCV 80.6 fL (80.0-100.0); Mean Platelet Volume 6.6; Monocytes # (A) 0.3 k/uL (0-1.0); Monocytes % (A) 4 %; Neutrophils # (A) 7.2 k/uL (1.3-7.7); Neutrophils % (A) 79 %; Platelet Count 315 k/uL (150-450); RBC 4.48 m/uL (3.80-5.40); RDW 15.2 % (11.5-15.5); WBC 9.1 k/uL (3.8-10.6)
[2018-08-07 16:36] LABS: ALT 43 U/L (9-52); AST 33 U/L (14-36); Alkaline Phosphatase 96 U/L (38-126); Anion Gap 10 mmol/L; Blood Urea Nitrogen 14 mg/dL (7-17); Calcium 9.7 mg/dL (8.4-10.2); Carbon Dioxide 26 mmol/L (22-30); Chloride 103 mmol/L (98-107); Glucose 119 mg/dL (74-99); Lipase 61 U/L (23-300); Magnesium 1.7 mg/dL (1.6-2.3); Potassium 4.5 mmol/L (3.5-5.1); Sodium 139 mmol/L (137-145); Total Bilirubin 0.6 mg/dL (0.2-1.3); Total Protein 6.5 g/dL (6.3-8.2)
[2018-08-07] MEDS ORDERED: methylPREDNISolone SOD SUCCI 125 MG/2 ML VIAL IV STA (17:17)
[2018-08-07] MEDS ORDERED: diphenhydrAMINE 50 MG/ML 1 ML VIAL IVP STA (17:17)
[2018-08-07] MEDS ORDERED: HYDROmorphone 0.5 MG/0.5 ML SYRINGE IVP STA ×2 (17:17→21:05)
[2018-08-07] MEDS ORDERED: FAMOTIDINE 20 MG/2 ML VIAL IV STA (17:17)
--- NOTE | 2018-08-07 19:20 | CT ---
EXAMINATION TYPE: CT abdomen pelvis w con DATE OF EXAM: 08/07/2018 COMPARISON: 07/11/2018 HISTORY: hx hernia, nausea,vomiting CT DLP: 3392 mGycm Automated exposure control for dose reduction was used. TECHNIQUE: Helical acquisition of images was performed from the lung bases through the pelvis. CONTRAST: Performed without Oral Contrast and with IV Contrast, patient injected with 100 mL of Isovue 300. FINDINGS: The lung bases are clear. There is no pleural effusion. Heart size is normal. Liver shows no focal defect. Exam is limited by the obesity. Spleen appears normal. There is no pancr eatic mass. The bile ducts are not dilated. Gallbladder appears contracted. There is no adrenal mass. Kidneys show satisfactory contrast opacification. There is no hydronephrosi s. There is no retroperitoneal adenopathy. There is no ascites. Bladder distends smoothly. There is left hip prosthesis. There is no inguinal hernia. There is no winston e fluid in the pelvis. There is no mesenteric edema or adenopathy. There is no sign of free air. I se e no sign of bowel obstruction. The ureters are not dilated. There are spondylotic changes in the lum bar spine. There is no compression fracture. There is mild sigmoid diverticulosis. There is no divert iculitis. IMPRESSION: NO ACUTE ABNORMALITY OF THE ABDOMEN AND PELVIS. THERE IS BROAD-BASED LARGE RIGHT LATERAL ABDOMINAL WA LL HERNIA UNCHANGED.
[2018-08-07] MEDS ORDERED: HYDROmorphone 0.5 MG/0.5 ML SYRINGE IVP PRN ×2 (21:21→23:00)
[2018-08-07] MEDS ORDERED: NALOXONE 0.4 MG/ML 1 ML VIAL IV PRN (21:21)
[2018-08-07] MEDS ORDERED: HYDROmorphone 1 MG/ML 1 ML SYRINGE IM PRN (22:59)
[2018-08-07] MEDS ORDERED: ALBUTEROL NEBULIZED 2.5 MG/3 ML INHALATION PRN (23:01)
[2018-08-07] MEDS ORDERED: guaiFENesin 600 MG TABLET.ER PO PRN (23:01)
[2018-08-07] MEDS ORDERED: DICYCLOMINE 20 MG TAB PO PRN (23:01)
[2018-08-07 23:12] VITALS: BMI 64.9
[2018-08-08] MEDS: HYDROmorphone 1 MG/ML 1 ML SYRINGE IVP PRN ×9 (00:10→23:49)
[2018-08-08 00:33] LABS: Appearance,Urine Clear (Clear); Bilirubin,Urine Negative (Negative); Blood,Urine Negative (Negative); Color,Urine Light Yellow; Glucose,Urine (UA) 3+ (Negative); Ketones,Urine Negative (Negative); Leukocyte Esterase,Urine Negative (Negative); Nitrite,Urine Negative (Negative); Protein,Urine Negative (Negative); Specific Gravity,Urine 1.019 (1.001-1.035); Urobilinogen,Urine <2.0 mg/dL (<2.0)
[2018-08-08] MEDS: ONDANSETRON 4 MG/2 ML VIAL IVP PRN ×2 (00:47→06:10)
[2018-08-08] MEDS: QUEtiapine 25 MG TAB PO SCH ×2 (01:56→21:02)
[2018-08-08] MEDS: LEVOTHYROXINE 75 MCG TAB PO SCH (06:26)
[2018-08-08] MEDS: FUROSEMIDE 40 MG TAB PO SCH (08:30)
[2018-08-08] MEDS: PREGABALIN 50 MG CAP PO SCH (12:16)
[2018-08-08] MEDS: PANTOPRAZOLE 40 MG TABLET PO SCH (12:17)
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
[2018-08-08] MEDS: PRAMIPEXOLE 0.25 MG TAB PO SCH (21:02)
[2018-08-08] MEDS: MELATONIN 5 MG TABLET PO SCH (21:02)
[2018-08-08] MEDS: SODIUM CHLORIDE 0.9% 1,000 ML IV SCH (23:31)
[2018-08-09] MEDS: HYDROmorphone 1 MG/ML 1 ML SYRINGE IVP PRN ×7 (02:50→21:09)
[2018-08-09] MEDS: LEVOTHYROXINE 75 MCG TAB PO SCH (05:39)
[2018-08-09] MEDS: FUROSEMIDE 40 MG TAB PO SCH (09:01)
[2018-08-09] MEDS: PREGABALIN 50 MG CAP PO SCH (09:01)
[2018-08-09] MEDS: PANTOPRAZOLE 40 MG TABLET PO SCH (09:01)
[2018-08-09] MEDS: LORazepam 0.5 MG TAB PO PRN ×2 (09:33→21:09)
[2018-08-09] MEDS: ONDANSETRON 4 MG/2 ML VIAL IVP PRN (09:33)
--- NOTE | 2018-08-09 13:30 | P.PN ---
<Zully Shabazz - Last Filed: 08/09/18 13:17> Subjective Progress Note Date: 08/09/18 CHIEF COMPLAINT: Abdominal pain HISTORY OF PRESENT ILLNESS: 68-year-old female who presented to the emergency room with chief complaint of abdominal pain. Computed tomography scan revealed large right lateral abdominal wall hernia unchanged from previous CT. Patient is requiring IV narcotics and continues to complain of severe abdominal pain. She was evaluated by Dr. Max during a previous hospitalization. Patient was placed on a bariatric diet in attempts to lose weight for future surgery. Patient reports she has been eating ground foods at home including ground steak, ground beef, cottage cheese, ground vegetables, pudding, and applesauce. Patient reports 19 pounds weight loss. BMI during previous hospitalization was 65.6. Current BMI 64.9. Patient extremely upset and tearful over her diet at this time. She spoke with the bariatric dietitian today as well. She does not want eggs brought on her tray and is upset at the portion sizes she is receiving. PHYSICAL EXAM: VITAL SIGNS: Reviewed GENERAL: Well-developed female in no acute distress. HEENT: No scleral icterus. Moist buccal mucosa. NECK: Supple without lymphadenopathy. CHEST: Equal expansion. Lungs clear. CARDIOVASCULAR: Regular rate regular rhythm rhythm. Distal 2+ pulses. ABDOMEN: Obese. Soft. Nondistended. Positive bowel sounds. MUSCULOSKELETAL: No clubbing, cyanosis, or edema. NEURO : Strength equal bilaterally. No seizure activity noted. PSYCH: Awake and alert. A/O x 3. SKIN: Well perfused. Good skin turgor. No cyanosis. No jaundice. ASSESSMENT: 1. Chronic right lower quadrant abdominal pain 2. Large ventral hernia without obstruction, CT reveals stable and unchanged from previous imaging in 07/2018 3. Super morbid obesity: BMI 64.9 PLAN: 1. Continue pain medications 2. Continue current diet 3. Will discuss above with Dr. Max. Further recommendations pending. Nurse practitioner note has been reviewed by physician. Signing provider agrees with the documented findings, assessment, and plan of care. Objective - Vital Signs Vital signs: Vital Signs Temp 97.8 F 08/09/18 08:00 Pulse 92 08/09/18 08:00 Resp 18 08/09/18 08:00 BP 133/77 08/09/18 08:00 Pulse Ox 97 08/09/18 08:00 Intake & Output 08/08/18 08/09/18 08/09/18 18:59 06:59 18:59 Intake Total 420 Balance 420 Intake: Oral 420 Other: Voiding Method Bedside Commode Bedside Commode Bedside Commode # Voids 1 - Labs CBC & Chem 7: 08/07/18 16:14 08/07/18 16:14 Assessment and Plan (1) Abdominal pain Current Visit: No Status: Acute Code(s): R10.9 - UNSPECIFIED ABDOMINAL PAIN SNOMED Code(s): 08606868 (2) Morbid obesity Current Visit: No Status: Acute Code(s): E66.01 - MORBID (SEVERE) OBESITY DUE TO EXCESS CALORIES SNOMED Code(s): 177505144 (3) Ventral hernia Current Visit: No Status: Acute Code(s): K43.9 - VENTRAL HERNIA WITHOUT OBSTRUCTION OR GANGRENE SNOMED Code(s): 103373448 <Veronica Max N - Last Filed: 08/10/18 09:17> Objective - Vital Signs Vital signs: Vital Signs Temp 98.0 F 08/10/18 07:51 Pulse 93 08/10/18 07:51 Resp 18 08/10/18 07:51 BP 126/76 08/10/18 07:51 Pulse Ox 95 08/10/18 07:51 Intake & Output 08/09/18 08/10/18 08/10/18 18:59 06:59 18:59 Intake Total 520 200 Balance 520 200 Weight 161.025 kg 161.025 kg Intake: Oral 520 200 Other: Voiding Method Bedside Commode Bedside Commode # Voids 1 - Labs CBC & Chem 7: 08/07/18 16:14 08/07/18 16:14 Assessment and Plan Plan: I had a long discussion regarding patient care plan at 08/09/18 19:00. She is complaining of taste of food and wants chronic pain meds. Pain has chronic abdominal pain for over 8 months. Her pain provider is her PCP. She has not seen a pain specialist. She reports losing 20 pounds in 2 weeks. She is very risk for any abdominal surgery including with her non-compliance to care. In presence of her nurse, she was told that a healthy diet and weight loss will help with any future surgery at this time. She is 230-pounds overweight and immobile. A bariatric diet was prescribed for her. With her multiple risk factors, care at [facility] and [place] was described to her as options. Weight loss was advised. She does not have an acute abdomen and hernia surgery is ELECTIVE. She has no bowel obstruction, free air, or intra-abdominal surgery to warrant urgent surgical intervention. Discharge home was described after consultation with pain specialist tomorrow. Patient was upset and the goals of her care was for safety and not for luxury of having any diet as she pleased including overuse of narcotics.
[2018-08-09] MEDS: HYDROcodone/APAP 10-325MG 1 EACH TAB PO PRN ×2 (13:51→19:43)
[2018-08-09] MEDS: PRAMIPEXOLE 0.25 MG TAB PO SCH (21:09)
[2018-08-09] MEDS: MELATONIN 5 MG TABLET PO SCH (21:09)
[2018-08-09] MEDS: QUEtiapine 25 MG TAB PO SCH (21:09)
[2018-08-09] MEDS: SODIUM CHLORIDE 0.9% 1,000 ML IV SCH (21:20)
[2018-08-10] MEDS: HYDROmorphone 1 MG/ML 1 ML SYRINGE IVP PRN ×4 (00:23→10:43)
[2018-08-10] MEDS: HYDROcodone/APAP 10-325MG 1 EACH TAB PO PRN (06:08)
[2018-08-10] MEDS: PANTOPRAZOLE 40 MG TABLET PO SCH (06:08)
[2018-08-10] MEDS: LEVOTHYROXINE 75 MCG TAB PO SCH (06:09)
[2018-08-10 07:52] VITALS: BP 126/76; PULSE 93; RESP 18; TEMP 98
--- NOTE | 2018-08-10 09:19 | P.PN ---
Progress Note - Text Progress Note Date: 08/10/18 Please see full note. Patient unhappy with her food selection. She will not have any surgery for her hernia as she is too high risk and non-compliant with care. She is pending pain specialist consultation prior to discharge today.
[2018-08-10] MEDS: PREGABALIN 50 MG CAP PO SCH (10:00)
[2018-08-10] MEDS: FUROSEMIDE 40 MG TAB PO SCH (10:06)
--- NOTE | 2018-08-10 11:08 | P.DS ---
Providers Date of admission: 08/07/18 21:26 Expected date of discharge: 08/10/18 Attending physician: Veronica Max Primary care physician: Jorje Domingo - Discharge Diagnosis(es) (1) Abdominal pain Current Visit: No Status: Acute (2) Morbid obesity Current Visit: No Status: Acute (3) Ventral hernia Current Visit: No Status: Acute Hospital Course: 68-year-old female who presented to the emergency room with chief complaint of abdominal pain. Computed tomography scan revealed large right lateral abdominal wall hernia unchanged from previous CT. Patient is requiring IV narcotics and continues to complain of severe abdominal pain. She was evaluated by Dr. Max during a previous hospitalization. Patient was placed on a bariatric diet in attempts to lose weight for future surgery. Patient reports she has been eating ground foods at home including ground steak , ground beef, cottage cheese, ground vegetables, pudding, and applesauce. Patient reports 19 pounds weight loss, unsure of validity of weight loss. BMI during previous hospitalization was 65.6. Current BMI 64.9. Patient extremely upset and tearful over her diet at this time. She spoke with the bariatric dietitian as well during hospitalization. Dr. Max will not be proceeding with any surgery on Renée as she is too high risk and non-compliant with care. Pain management consult is placed and patient may be discharged home after she is evaluated by pain management. She is to follow up with her primary care physician. Discharge Diagnosis: 1. Chronic right lower quadrant abdominal pain 2. Large ventral hernia without obstruction, CT reveals stable and unchanged from previous imaging in 07/2018 3. Super morbid obesity: BMI 64.9 Nurse practitioner note has been reviewed by physician. Signing provider agrees with the documented findings, assessment, and plan of care. Patient Condition at Discharge: Good Plan - Discharge Summary New Discharge Prescriptions: Continue Pramipexole [Mirapex] 0.25 mg PO HS Omeprazole [PriLOSEC] 20 mg PO AC-BID Furosemide [Lasix] 40 mg PO DAILY HYDROcodone/APAP 10-325MG [[place] 10-325] 1 tab PO QID PRN PRN Reason: Pain QUEtiapine [SEROquel] 25 mg PO HS Melatonin 10 mg PO HS Levothyroxine Sodium [Synthroid] 150 mcg PO DAILY guaiFENesin [Mucinex] 600 mg PO Q12H PRN PRN Reason: Congestion Albuterol Nebulized [Ventolin Nebulized] 2.5 mg INHALATION RT-QID PRN PRN Reason: Shortness Of Breath Pregabalin [Lyrica] 50 mg PO DAILY LORazepam [Ativan] 0.5 mg PO BID PRN PRN Reason: Anxiety Ondansetron [Zofran ODT] 8 mg PO Q8H PRN PRN Reason: Nausea Dicyclomine [Bentyl] 20 mg PO QID PRN PRN Reason: Gi Upset Discharge Medication List Pramipexole [Mirapex] 0.25 mg PO HS 01/23/18 [History] Omeprazole [PriLOSEC] 20 mg PO AC-BID 04/19/18 [History] Furosemide [Lasix] 40 mg PO DAILY 05/17/18 [History] HYDROcodone/APAP 10-325MG [[place] 10-325] 1 tab PO QID PRN 05/17/18 [History] Albuterol Nebulized [Ventolin Nebulized] 2.5 mg INHALATION RT-QID PRN 06/18/18 [ History] LORazepam [Ativan] 0.5 mg PO BID PRN 06/18/18 [History] Levothyroxine Sodium [Synthroid] 150 mcg PO DAILY 06/18/18 [History] Melatonin 10 mg PO HS 06/18/18 [History] Pregabalin [Lyrica] 50 mg PO DAILY 06/18/18 [History] QUEtiapine [SEROquel] 25 mg PO HS 06/18/18 [History] guaiFENesin [Mucinex] 600 mg PO Q12H PRN 06/18/18 [History] Ondansetron [Zofran ODT] 8 mg PO Q8H PRN 07/11/18 [History] Dicyclomine [Bentyl] 20 mg PO QID PRN 08/07/18 [History] Follow up Appointment(s)/Referral(s): Jorje Domingo MD [Primary Care Provider] - 1-2 days Patient Instructions/Handouts: Safe Use of Narcotics (GEN) Activity/Diet/Wound Care/Special Instructions: Continue bariatric diet for optimal weight loss. Discharge Disposition: HOME SELF-CARE
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
== END 2018-08-10 12:55 | disposition home or self-care (01) ==
LOC: EC 14:56 → 1SOBS 21:26
PROVIDERS: ADMIT Surgery Plastic and Reconstructive Surgery; ATTEND Surgery Plastic and Reconstructive Surgery
DX: K43.9 Ventral hernia without obstruction or gangrene (principal); G89.29 Other chronic pain; E66.01 Morbid (severe) obesity due to excess calories; Z68.44 Body mass index [BMI] 60.0-69.9, adult; Z91.19 Patient's noncompliance with other medical treatment and regimen; J44.9 Chronic obstructive pulmonary disease, unspecified; I50.9 Heart failure, unspecified; K58.9 Irritable bowel syndrome, unspecified; R32 Unspecified urinary incontinence; M54.9 Dorsalgia, unspecified; E03.9 Hypothyroidism, unspecified; M13.0 Polyarthritis, unspecified; K22.70 Barrett's esophagus without dysplasia; I25.2 Old myocardial infarction; F41.9 Anxiety disorder, unspecified; F32.9 Major depressive disorder, single episode, unspecified; Z87.19 Personal history of other diseases of the digestive system; Z87.01 Personal history of pneumonia (recurrent); Z87.440 Personal history of urinary (tract) infections; Z87.11 Personal history of peptic ulcer disease; Z85.42 Personal history of malignant neoplasm of other parts of uterus; Z87.442 Personal history of urinary calculi; Z16.24 Resistance to multiple antibiotics; Z90.49 Acquired absence of other specified parts of digestive tract; Z63.79 Other stressful life events affecting family and household; Z82.3 Family history of stroke; Z80.52 Family history of malignant neoplasm of bladder; Z80.1 Family history of malignant neoplasm of trachea, bronchus and lung; Z83.2 Family history of diseases of the blood and blood-forming organs and certain disorders involving the immune mechanism; Z79.899 Other long term (current) drug therapy; Z79.890 Hormone replacement therapy; Z88.5 Allergy status to narcotic agent; Z88.8 Allergy status to other drugs, medicaments and biological substances; Z91.041 Radiographic dye allergy status
CPT/HCPCS: 96375 ×2; 96376 ×4; 96361; 96374; 99285; 36415; 80053; 83690; 83735; 85025; 81003; 74177; G0378 ×4; J1200; J2930; J2405 ×2; J1170 ×4

== ENCOUNTER 2018-08-12 19:27 | Emergency (ER) | payer MEDICARE, OTHER ==
[2018-08-12] MEDS ORDERED: ALBUTEROL NEBULIZED 2.5 MG/3 ML INHALATION STA (21:42)
[2018-08-12] MEDS ORDERED: ONDANSETRON 4 MG/2 ML VIAL IVP STA (21:43)
[2018-08-12] MEDS ORDERED: HYDROcodone/APAP 10-325MG 1 EACH TAB PO ONE (21:45)
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
[2018-08-12 22:09] LABS: Basophils % (A) 0 %; Eosinophils # (A) 0.3 k/uL (0-0.7); Eosinophils % (A) 4 %; HCT 36.5 % (34.0-46.0); HGB 11.9 gm/dL (11.4-16.0); Lymphocytes # (A) 1.1 k/uL (1.0-4.8); Lymphocytes % (A) 13 %; MCH 26.7 pg (25.0-35.0); MCHC 32.7 g/dL (31.0-37.0); MCV 81.6 fL (80.0-100.0); Mean Platelet Volume 6.7; Monocytes # (A) 0.4 k/uL (0-1.0); Monocytes % (A) 4 %; Neutrophils # (A) 6.3 k/uL (1.3-7.7); Neutrophils % (A) 78 %; Platelet Count 287 k/uL (150-450); RBC 4.47 m/uL (3.80-5.40); RDW 15.5 % (11.5-15.5); WBC 8.1 k/uL (3.8-10.6)
[2018-08-12 22:21] LABS: ALT 41 U/L (9-52); AST 29 U/L (14-36); Albumin 3.8 g/dL (3.5-5.0); Alkaline Phosphatase 91 U/L (38-126); Anion Gap 8 mmol/L; Blood Urea Nitrogen 10 mg/dL (7-17); Calcium 9.4 mg/dL (8.4-10.2); Carbon Dioxide 25 mmol/L (22-30); Chloride 108 mmol/L (98-107); Glucose 113 mg/dL (74-99); Potassium 4.4 mmol/L (3.5-5.1); Sodium 141 mmol/L (137-145); Total Bilirubin 0.5 mg/dL (0.2-1.3); Total Protein 6.4 g/dL (6.3-8.2)
[2018-08-12 22:30] LABS: Creatine Kinase 69 U/L (30-135)
[2018-08-12 22:43] LABS: Creatine Kinase MB 0.7 ng/mL (0.0-2.4); Troponin I <0.012 ng/mL (0.000-0.034)
--- NOTE | 2018-08-13 00:03 | XR ---
EXAMINATION TYPE: XR chest 2V DATE OF EXAM: 08/12/2018 COMPARISON: 07/11/2018 HISTORY: Cough and difficulty breathing TECHNIQUE: Frontal and lateral views of the chest are obtained. FINDINGS: There is no heart failure nor confluent pneumonic infiltrate. Costophrenic angles are santiago r. Thoracic aorta is atheromatous. There is spurring in the thoracic spine. IMPRESSION: Atheromatous aorta. No active cardiopulmonary disease. No change.
[2018-08-13] MEDS ORDERED: predniSONE 20 MG TAB PO STA (00:17)
[2018-08-13] MEDS ORDERED: ALBUTEROL NEBULIZED 2.5 MG/3 ML INHALATION STA (00:17)
[2018-08-13] MEDS ORDERED: MORPHINE SULFATE 4 MG/ML SYRINGE IV STA (01:12)
[2018-08-13 05:42] VITALS: BP 156/86; PULSE 78; RESP 16; TEMP 97.6
== END 2018-08-13 03:00 | disposition home or self-care (01) ==
LOC: EC 19:27
DX: J44.1 Chronic obstructive pulmonary disease with (acute) exacerbation (principal); I50.9 Heart failure, unspecified; I25.2 Old myocardial infarction; M19.90 Unspecified osteoarthritis, unspecified site; E03.9 Hypothyroidism, unspecified; K22.70 Barrett's esophagus without dysplasia; F32.9 Major depressive disorder, single episode, unspecified; Z79.899 Other long term (current) drug therapy; Z91.041 Radiographic dye allergy status; Z88.6 Allergy status to analgesic agent; Z88.8 Allergy status to other drugs, medicaments and biological substances; Z88.5 Allergy status to narcotic agent; Z85.42 Personal history of malignant neoplasm of other parts of uterus; Z95.5 Presence of coronary angioplasty implant and graft; Z96.642 Presence of left artificial hip joint; Z96.653 Presence of artificial knee joint, bilateral
CPT/HCPCS: 36415; 94640 ×2; 93005; 85379; 80053; 82550; 82553; 83605; 84484; 85025; 87040; 87502; 71046; 99285; 96374; 96375; J2270; J2405; J7512

== ENCOUNTER 2018-10-27 21:16 | Observation (INO) | payer MEDICARE, OTHER ==
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
[2018-10-27] MEDS ORDERED: ONDANSETRON 4 MG/2 ML VIAL IVP STA (22:16)
[2018-10-27] MEDS ORDERED: HYDROmorphone 1 MG/ML 1 ML SYRINGE IVP STA (22:16)
[2018-10-27] MEDS ORDERED: PANTOPRAZOLE 40 MG/10 ML VIAL IVP STA (22:16)
[2018-10-27 22:17] LABS: Anisocytosis Slight; Basophils % (A) 1 %; Eosinophils # (A) 0.2 k/uL (0-0.7); Eosinophils % (A) 2 %; HCT 38.4 % (34.0-46.0); Lymphocytes # (A) 1.2 k/uL (1.0-4.8); Lymphocytes % (A) 13 %; MCH 24.8 pg (25.0-35.0); MCHC 31.3 g/dL (31.0-37.0); MCV 79.2 fL (80.0-100.0); Mean Platelet Volume 6.8; Microcytosis Slight; Monocytes # (A) 0.5 k/uL (0-1.0); Monocytes % (A) 5 %; Neutrophils # (A) 6.9 k/uL (1.3-7.7); Neutrophils % (A) 78 %; Platelet Count 320 k/uL (150-450); RBC 4.85 m/uL (3.80-5.40); RDW 16.1 % (11.5-15.5); WBC 8.8 k/uL (3.8-10.6)
--- NOTE | 2018-10-27 22:24 | XR ---
EXAM: XR Chest, 2 Views CLINICAL HISTORY: History of atrial fibrillation, asthma, heart failure, COPD. Previous DC. Reason: Chest Pain TECHNIQUE: Frontal and lateral views of the chest. COMPARISON: Chest radiograph on 08/13/2018 FINDINGS: Hardware: None. Lungs/pleura: Opacities in the mid and lower lung zones are likely related to overlying soft tissue density. No focal consolidation. Possible pulmonary vasculature congestion. Heart/mediastinum: Stable mild enlargement of the cardiomediastinal silhouette. Soft tissues: Unremarkable. Bones: No acute fracture. Degenerative changes of the spine. Upper abdomen: Normal. IMPRESSION: Overlying soft tissue density projected over the mid and lower lung zones. No focal consolidation. Possible mild pulmonary vasculature congestion.
[2018-10-27 22:27] LABS: INR 0.9 (<1.2); Prothrombin Time 10.1 sec (9.0-12.0)
[2018-10-27 22:37] LABS: Partial Thromboplastin Time 19.1 sec (22.0-30.0)
[2018-10-27 22:38] LABS: ALT 25 U/L (9-52); AST 22 U/L (14-36); Albumin 4.4 g/dL (3.5-5.0); Alkaline Phosphatase 117 U/L (38-126); Anion Gap 12 mmol/L; Blood Urea Nitrogen 9 mg/dL (7-17); Calcium 10.2 mg/dL (8.4-10.2); Carbon Dioxide 25 mmol/L (22-30); Chloride 106 mmol/L (98-107); Glucose 113 mg/dL (74-99); Lipase 91 U/L (23-300); Magnesium 1.7 mg/dL (1.6-2.3); Potassium 3.7 mmol/L (3.5-5.1); Sodium 143 mmol/L (137-145); Total Bilirubin 0.7 mg/dL (0.2-1.3); Total Protein 7.3 g/dL (6.3-8.2)
[2018-10-27] MEDS ORDERED: ASPIRIN 81 MG PO STA (23:43)
[2018-10-27] MEDS ORDERED: NITROGLYCERIN SL TABS 0.4 MG TAB SUBLINGUAL PRN (23:43)
[2018-10-28] MEDS: MORPHINE SULFATE 4 MG/ML SYRINGE IV PRN ×4 (00:23→12:05)
[2018-10-28 07:19] LABS: Cholesterol 151 mg/dL (<200); HDL Cholesterol 42 mg/dL (40-60); LDL Cholesterol,Calculated 74 mg/dL (0-99); Triglycerides 174 mg/dL (<150)
[2018-10-28] MEDS ORDERED: ASPIRIN 325 MG TAB PO SCH (09:00)
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
[2018-10-28] MEDS ORDERED: guaiFENesin 600 MG TABLET.ER PO PRN (13:31)
[2018-10-28] MEDS ORDERED: LORazepam 0.5 MG TAB PO PRN (13:31)
[2018-10-28] MEDS: HYDROcodone/APAP 10-325MG 1 EACH TAB PO PRN ×2 (15:01→20:52)
[2018-10-28] MEDS: LEVOTHYROXINE 75 MCG TAB PO SCH (15:01)
[2018-10-28] MEDS: PANTOPRAZOLE 40 MG TABLET PO SCH (15:01)
[2018-10-28 15:52] VITALS: BMI 62.1
[2018-10-28] MEDS ORDERED: ALBUTEROL NEBULIZED 2.5 MG/3 ML INHALATION PRN (16:28)
[2018-10-28] MEDS ORDERED: FUROSEMIDE 40 MG TAB PO PRN (16:28)
[2018-10-28] MEDS: FAMOTIDINE 20 MG TAB PO SCH (20:52)
[2018-10-28] MEDS ORDERED: QUEtiapine 25 MG TAB PO SCH (21:00)
--- NOTE | 2018-10-28 21:58 | HP ---
HISTORY AND PHYSICAL DATE OF SERVICE: 10/28/2018 CHIEF COMPLAINT: Epigastric and chest pain. HISTORY OF PRESENT ILLNESS: This 68-year-old woman with a past medical history of atrial fibrillation, asthma, history of chest pain, CHF, COPD, history of GI bleed, myocardial infarction, history of DJD, history of pneumonia, history of renal disease, history of colitis, history of adenoidectomy, bladder surgery, cholecystectomy, being followed by Dr. Domingo in the outpatient setting, was complaining of epigastric pain radiating up towards the chest, and patient came to [facility] and was admitted for further evaluation and treatment. There is no history of any fever, rigor or chills. No history of headache, loss of consciousness, seizures. The initial troponins were negative. Cardiology evaluation is in progress. There is no history of excessive sweating or palpitations. The pain was burning in character, according to her. PAST MEDICAL HISTORY: 1. History of atrial fibrillation. 2. History of asthma. 3. Chest pain. 4. CHF. 5. COPD. 6. GI bleed. 7. History of myocardial infarction. 8. DJD. 9. History of pneumonia. 10.History of colitis. 11.History of urinary incontinence. HOME MEDICATIONS: 1. Mucinex 600 mg p.o. b.i.d. p.r.n. 2. Seroquel 25 mg at bedtime. 3. Prilosec 20 mg before meals b.i.d. 4. Synthroid 150 mcg p.o. daily. 5. Ativan 0.5 mg b.i.d. p.r.n. 6. [place] 10 mg q.i.d. p.r.n. 7. Lasix 40 mg daily p.r.n. 8. Pepcid 20 mg p.o. b.i.d. 9. Ventolin 2.5 q.i.d. p.r.n. ALLERGIES: 1. IODINATED CONTRAST DYES. 2. TORADOL. 3. ROBAXIN. 4. NSAIDS. 5. COMPAZINE. 6. TRAMADOL. 7. ULTRAM. FAMILY HISTORY: History of cancer, CVA, TIA, hypertension, history of myocardial infarction, bladder and lung cancer. SOCIAL HISTORY: No history of smoking. No history of alcohol intake. REVIEW OF SYSTEMS: ENT: No diminished hearing. No diminished vision. CARDIOVASCULAR SYSTEM: As mentioned earlier. RESPIRATORY SYSTEM: As mentioned earlier. GI: As mentioned earlier. : No dysuria or retention. NERVOUS SYSTEM: No numbness, weakness. ALLERGY/IMMUNOLOGY: No asthma, hayfever. MUSCULOSKELETAL: As mentioned earlier. HEMATOLOGY/ONCOLOGY: No history of anemia. ENDOCRINE: No history of diabetes. CONSTITUTIONAL: As mentioned earlier. DERMATOLOGY: Negative. RHEUMATOLOGY: Negative. PSYCHIATRY: As mentioned earlier. PHYSICAL EXAMINATION: Patient is alert and oriented x3. Pulse 78, blood pressure 116/68, respiration 18, temperature 97.6, pulse ox 96% on room air. HEENT: Conjunctivae normal. NECK: No jugular venous distention. CARDIOVASCULAR SYSTEM: S1, S2 muffled. RESPIRATORY SYSTEM: Breath sounds diminished at the bases. Scattered rhonchi and crackles. ABDOMEN: Soft. Minimal discomfort in the epigastrium. No guarding. No rigidity. No mass palpable. LEGS: No edema. No swelling. NERVOUS SYSTEM: Higher functions as mentioned earlier. Moves all 4 limbs. No focal motor or sensory deficit. LYMPHATICS: No lymph node palpable in neck, axillae or groin. SKIN: No ulcer, rash, bleeding. JOINTS: No active deforming arthropathy. LABS: WBC 8.8, hemoglobin 12, MCV 79.2. Glucose 113. ASSESSMENT: 1. Epigastric and chest pain, possible gastroesophageal reflux disease. 2. Myocardial infarction ruled out. 3. Possible unstable angina. 4. Atrial fibrillation. 5. Asthma. 6. History of chest pain, angina. 7. History of congestive heart failure. 8. Chronic obstructive pulmonary disease. 9. History of gastrointestinal bleed. 10.History of myocardial infarction. 11.History of degenerative joint disease. 12.History of pneumonia. 13.History of colitis. 14.History of irritable bowel syndrome. 15.History of recurrent urinary tract infections. 16.History of Scales's esophagus. 17.History of Clostridium difficile colitis. 18.History of bladder surgery. 19.History of tonsillectomy. 20.Anxiety, depression. 21.Super morbid obesity with a body mass index of 62.2. RECOMMENDATIONS AND DISCUSSION: In this 68-year-old woman who presented with multiple complex medical issues, we will monitor the patient closely, continue the current medications, continue with symptomatic treatment. Resume the home medications. Otherwise, closely follow with Cardiology. Rule out myocardial infarction. Guarded prognosis because of multiple complex medical issues. Further recommendations to follow. A copy of this dictation is being forwarded to Dr. Domingo, who is the primary physician. HARRIS / YADIRAN: [id number] / [id number]
[2018-10-29] MEDS: HYDROcodone/APAP 10-325MG 1 EACH TAB PO PRN ×2 (03:32→09:11)
[2018-10-29 03:42] VITALS: RESP 18
[2018-10-29] MEDS: LEVOTHYROXINE 75 MCG TAB PO SCH ×2 (05:17→05:22)
[2018-10-29] MEDS ORDERED: LEVOTHYROXINE 75 MCG TAB PO SCH (06:30)
[2018-10-29 06:59] VITALS: BP 146/82; PULSE 71; TEMP 97.4
[2018-10-29] MEDS: PANTOPRAZOLE 40 MG TABLET PO SCH (07:52)
[2018-10-29] MEDS: FAMOTIDINE 20 MG TAB PO SCH (07:52)
[2018-10-29] MEDS ORDERED: ASPIRIN 81 MG PO SCH (09:00)
[2018-10-29] MEDS ORDERED: HYDROcodone/APAP 10-325MG 1 EACH TAB PO ONE (10:59)
--- NOTE | 2018-10-29 22:47 | DS ---
DISCHARGE SUMMARY DATE OF SERVICE: 10/29/2018. FINAL DIAGNOSES: 1. Epigastric and chest pain, possible gastroesophageal reflux disease. 2. Myocardial infarction ruled out. 3. Possible unstable angina. 4. Atrial fibrillation. 5. Asthma. 6. History of chest pain angina. 7. History of congestive heart failure. 8. History of chronic obstructive pulmonary disease. 9. History of gastrointestinal bleed. 10.History of myocardial infarction. 11.History of degenerative joint disease. 12.History of pneumonia. 13.History of colitis. 14.History of irritable bowel syndorme. 15.History of recurrent urinary tract infection. 16.History of Scales's esophagus. 17.History of C difficile colitis. 18.History of bladder surgery. 19.History of tonsillectomy. 20.Anxiety, depression. 21.Super morbid obesity with body mass index of 62.2. DISCHARGE DISPOSITION: The patient will be discharged in stable condition with guarded prognosis. HISTORY OF PRESENT ILLNESS: This 68-year-old woman with past medical history admitted with epigastric chest pain. Cardiology saw the patient. The patient cleared for discharge. On exam, vitals are stable. Cardiac systems: S1, S2. Abdomen soft. Central nervous system: No focal deficits. The patient was treated conservatively. Patient discharged in stable condition with guarded prognosis. DISCHARGE ADVICE AND MEDICATIONS: 1. Diet is cardiac diet. 2. Activity limited until follow up. FOLLOWUP: Follow up with Dr. Domingo in 2-3 days, primary physician. Follow up with Cardiology as recommended. MEDS: Other medications are as follows: Ativan 0.5 mg b.i.d. p.r.n., Lasix 40 mg p.r.n., Mucinex p.r.n., [place] 10 mg q.i.d. p.r.n. Pepcid 20 mg b.i.d., Prilosec 20 mg b.i.d., Seroquel 25 mg q.8, Synthroid 150 mcg subcu daily. Ventolin 2.5 q.i.d. p.r.n. Please send a copy of dictation to my office, Dr. Domingo and also Dr. Kaden Cruz. Follow up with Dr. Kaden Cruz as recommended. MMODL / IJN: [id number] /
== END 2018-10-29 12:30 | disposition home or self-care (01) ==
LOC: EC 21:16 → 1SOBS 23:44
PROVIDERS: ADMIT Hospitalist; ATTEND Hospitalist
DX: R07.89 Other chest pain (principal); R10.13 Epigastric pain; R11.2 Nausea with vomiting, unspecified; E03.9 Hypothyroidism, unspecified; K21.9 Gastro-esophageal reflux disease without esophagitis; F32.9 Major depressive disorder, single episode, unspecified; K58.0 Irritable bowel syndrome with diarrhea; F41.9 Anxiety disorder, unspecified; E66.01 Morbid (severe) obesity due to excess calories; Z68.44 Body mass index [BMI] 60.0-69.9, adult; Z96.653 Presence of artificial knee joint, bilateral; I48.91 Unspecified atrial fibrillation; G89.29 Other chronic pain; Z90.710 Acquired absence of both cervix and uterus; Z87.442 Personal history of urinary calculi; Z87.440 Personal history of urinary (tract) infections; Z87.19 Personal history of other diseases of the digestive system; Z87.01 Personal history of pneumonia (recurrent); Z86.19 Personal history of other infectious and parasitic diseases; Z85.42 Personal history of malignant neoplasm of other parts of uterus; Z79.899 Other long term (current) drug therapy; Z79.890 Hormone replacement therapy; I25.2 Old myocardial infarction; Z82.49 Family history of ischemic heart disease and other diseases of the circulatory system; Z82.3 Family history of stroke; Z80.1 Family history of malignant neoplasm of trachea, bronchus and lung
CPT/HCPCS: 96376; 96374; 96375 ×2; 99285; 36415; 94760; 94762; 93005; 83880; 80061; 80053; 83690; 83735; 84484 ×2; 85025; 85610; 85730; 71046; G0378 ×3; J2270; J2405; J1170; C9113

== ENCOUNTER 2018-12-15 13:16 | Observation (INO) | payer MEDICARE, OTHER ==
[2018-12-15] MEDS ORDERED: IPRATROPIUM-ALBUTEROL 3 ML NEB INHALATION STA (13:42)
[2018-12-15] MEDS ORDERED: HYDROmorphone 1 MG/ML 1 ML SYRINGE IVP STA (13:43)
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
[2018-12-15 14:56] LABS: Basophils % (A) 1 %; Eosinophils # (A) 0.2 k/uL (0-0.7); Eosinophils % (A) 3 %; HCT 34.7 % (34.0-46.0); Lymphocytes # (A) 0.9 k/uL (1.0-4.8); Lymphocytes % (A) 13 %; MCH 25.2 pg (25.0-35.0); MCHC 31.6 g/dL (31.0-37.0); MCV 79.7 fL (80.0-100.0); Mean Platelet Volume 6.8; Monocytes # (A) 0.3 k/uL (0-1.0); Monocytes % (A) 5 %; Neutrophils # (A) 5.2 k/uL (1.3-7.7); Neutrophils % (A) 77 %; Platelet Count 328 k/uL (150-450); RBC 4.35 m/uL (3.80-5.40); WBC 6.8 k/uL (3.8-10.6)
[2018-12-15 15:03] LABS: ALT 20 U/L (9-52); AST 22 U/L (14-36); Albumin 3.9 g/dL (3.5-5.0); Alkaline Phosphatase 109 U/L (38-126); Anion Gap 8 mmol/L; Blood Urea Nitrogen 5 mg/dL (7-17); Carbon Dioxide 25 mmol/L (22-30); Chloride 108 mmol/L (98-107); Glucose 94 mg/dL (74-99); Magnesium 1.6 mg/dL (1.6-2.3); Potassium 4.6 mmol/L (3.5-5.1); Sodium 141 mmol/L (137-145); Total Bilirubin 0.5 mg/dL (0.2-1.3); Total Protein 6.3 g/dL (6.3-8.2)
[2018-12-15 15:29] LABS: INR 1.1 (<1.2)
[2018-12-15 15:30] LABS: Prothrombin Time 11.9 sec (9.0-12.0)
--- NOTE | 2018-12-15 15:35 | XR ---
EXAMINATION TYPE: XR chest 2V DATE OF EXAM: 12/15/2018 COMPARISON: 10/27/2018 HISTORY: Difficulty breathing. Bilateral lower extremity pain. History of congestive heart failure. TECHNIQUE: Frontal and lateral views of the chest are obtained. FINDINGS: There is an enlarged cardiac mediastinal silhouette and hazy appearance of the lower lungs partially obscured by copious overlying soft tissues. No discrete pulmonary vascular congestion is s een. No sizable pneumothorax or pleural effusion. Mild degenerative changes of the spine. IMPRESSION: Cardiomegaly. No radiographic sequela of decompensated congestive heart failure at this time.
[2018-12-15 15:43] LABS: D-Dimer 1.86 mg/L FEU (<0.60)
[2018-12-15] MEDS ORDERED: methylPREDNISolone SOD SUCCI 125 MG/2 ML VIAL IV STA (16:30)
[2018-12-15] MEDS ORDERED: FAMOTIDINE 20 MG/2 ML VIAL IV STA (16:30)
[2018-12-15] MEDS ORDERED: diphenhydrAMINE 50 MG/ML 1 ML VIAL IVP STA (16:30)
[2018-12-15] MEDS ORDERED: HYDROmorphone 0.5 MG/0.5 ML SYRINGE IVP STA ×2 (16:47→19:28)
--- NOTE | 2018-12-15 19:16 | CT ---
EXAMINATION TYPE: CT chest angio for PE DATE OF EXAM: 12/15/2018 COMPARISON: CTA chest January 23, 2018. HISTORY: Back and chest pain CT DLP: 1016.8 mGycm. Automated Exposure Control for Dose Reduction was Utilized. CONTRAST: CTA scan of the thorax is performed with IV Contrast, patient injected with 80 mL of Isovue 370, pulm onary embolism protocol. MIP Images are created on CT scanner and reviewed. FINDINGS: Exam noted suboptimal due to patient's large body habitus. LUNGS: Elevation and eventration of right hemidiaphragm is redemonstrated. Dependent atelectasis righ t lower lobe is present. No suspicious focal consolidation. No pleural effusion or pneumothorax. No s uspicious nodules or masses. Tracheobronchial tree is patent. MEDIASTINUM: There is near equal contrast in right and left heart systems without convincing CT evide nce for acute pulmonary embolism. There are no greater than 1 cm hilar or mediastinal lymph nodes. No cardiomegaly or pericardial effusion is seen. Coronary artery calcification is present which is n oted marker for underlying coronary artery disease. Some ectatic course to descending thoracic aorta without dissection or aneurysm. OTHER: Moderate to severe multilevel spurring in the thoracic spine is redemonstrated. There is signi ficant contrast extravasation in the anterior left upper chest subcutaneous tissue. IMPRESSION: 1. No CT evidence for acute pulmonary embolism. 2. Low lung volumes without suspicious acute pulmonary process. 3. Contrast extravasation identified causing streak artifact anterior left upper chest subcutaneous f at. Technologist states approximately 50 cc was extravasated. Manage clinically if patient have sympt oms of pain. Short-term monitoring advised. Need to plastic surgical evaluation should be based on cl inical correlation.
--- NOTE | 2018-12-15 19:23 | US ---
EXAMINATION TYPE: US venous doppler duplex LE RT DATE OF EXAM: 12/15/2018 3:41 PM COMPARISON: Bilateral lower extremity venous ultrasound April 28, 2018 CLINICAL HISTORY: Pain. Morbid obesity. SIDE PERFORMED: Bilateral TECHNIQUE: The lower extremity deep venous system is examined utilizing real time linear array sonog mariana with graded compression, doppler sonography and color-flow sonography. VESSELS IMAGED: External Iliac Vein (EIV) Common Femoral Vein Deep Femoral Vein Greater Saphenous Vein * Femoral Vein Popliteal Vein Small Saphenous Vein * Proximal Calf Veins (* superficial vessels) Patient 5'2", 358lb Right Leg: Limited exam, EIV, CFV, DFV, GSV not seen due to large panus. Portions visualized appear negative for DVT. Grayscale, color doppler, spectral doppler imaging performed of the deep veins of the right lower ext remity. There is normal flow, compressibility, vascular waveforms in visualized portion. IMPRESSION: Suboptimal study without convincing evidence of acute DVT in visualized portions. Al e portions of the right lower extremity cannot be evaluated due to body habitus.
[2018-12-15] MEDS: IPRATROPIUM-ALBUTEROL 3 ML NEB INHALATION SCH (20:12)
[2018-12-15 22:09] VITALS: BMI 65.5
[2018-12-15] MEDS: HYDROcodone/APAP 10-325MG 1 EACH TAB PO PRN (22:34)
[2018-12-15] MEDS ORDERED: FUROSEMIDE 40 MG TAB PO PRN (22:49)
[2018-12-15] MEDS ORDERED: LORazepam 0.5 MG TAB PO PRN (22:50)
[2018-12-15] MEDS: HYDROmorphone 1 MG/ML 1 ML SYRINGE IVP PRN (23:05)
[2018-12-16] MEDS: methylPREDNISolone SOD SUCCI 125 MG/2 ML VIAL IV SCH ×3 (00:44→11:12)
[2018-12-16] MEDS: HYDROcodone/APAP 10-325MG 1 EACH TAB PO PRN ×4 (03:56→22:01)
[2018-12-16] MEDS: HYDROmorphone 1 MG/ML 1 ML SYRINGE IVP PRN ×3 (04:53→16:45)
[2018-12-16] MEDS: LEVOTHYROXINE 75 MCG TAB PO SCH (06:27)
--- NOTE | 2018-12-16 07:12 | HP ---
HISTORY AND PHYSICAL CHIEF COMPLAINTS: Shortness of breath as well as leg swelling. HISTORY OF PRESENT ILLNESS: This 68-year-old woman with a past medical history of multiple medical problems including history of atrial fibrillation, history of asthma, CHF, COPD, myocardial infarction, DJD, history of pneumonia being followed by Dr. Domingo in the outpatient setting was complaining of increased shortness of breath and as well as bilateral leg swelling and pain. The patient came to [facility] and admitted for further evaluation and treatment. The patient reports also some gained weight over the past several days and also complaining of significant diffuse aches and pains as well. There is no history of any fever, rigors. No history of headache, loss of consciousness or seizures. A CT angio was negative for pulmonary embolism. Ultrasound was negative for pulmonary embolism. Patient admitted for further evaluation and treatment. There is no history of any fever, rigors. No history of headache, loss of consciousness or seizures at this time. PAST MEDICAL HISTORY: History of asthma, chest pain, CHF, COPD, GI bleed, history of myocardial infarction, DJD, history of pneumonia, renal disease, hypothyroidism. MEDICATIONS: Medications are home medications: 1. Vistaril 50 mg p.o. q.h.s. 2. Synthroid 150 mcg p.o. daily. 3. Latty 10 mg q.i.d. p.r.n. 4. Lasix 40 mg daily p.r.n. 5. Ventolin 2.5 q.i.d. p.r.n. 6. Prilosec 20 mg a.c. b.i.d. 7. Ativan 0.5 mg b.i.d. p.r.n. ALLERGIES: Allergies are IODINATED CONTRAST, KETOROLAC, ROBAXIN, NSAIDS, COMPAZINE. FAMILY HISTORY: History of CA, history of CVA, TIA, hypertension, history of myocardial infarction. SOCIAL HISTORY: No history of smoking. No history of alcohol intake. REVIEW OF SYSTEMS: ENT: No diminished hearing or diminished vision. CARDIOVASCULAR SYSTEM: No angina. RESPIRATORY SYSTEM: As mentioned earlier. GI: No nausea. : No dysuria. NERVOUS SYSTEM: No numbness or weakness. ALLERGY/IMMUNOLOGY: Asthma. MUSCULOSKELETAL: As mentioned earlier. HEMATOLOGY/ONCOLOGY: No history of anemia. ENDOCRINE: Hypothyroidism. CONSTITUTIONAL: As mentioned earlier. DERMATOLOGY: Negative. RHEUMATOLOGY: Negative. PSYCHIATRY: As mentioned earlier. PHYSICAL EXAMINATION: The patient is alert and oriented x3. Pulse 80, blood pressure 160/89, respirations 16, temperature normal, pulse ox 94% on room air. HEENT: Conjunctivae normal. Oral mucosa moist. NECK: No jugular venous distention. No carotid bruit. No lymph node enlargement. CARDIOVASCULAR: S1, S2 muffled. No S3, no S4. RESPIRATORY: Breath sounds diminished at the bases. Bilateral scattered rhonchi and crackles. ABDOMEN: Soft, obese, nontender. LEGS: Bilateral leg edema. NERVOUS SYSTEM: Higher functions as mentioned earlier. Moves all 4 limbs. No focal motor or sensory deficits. LYMPHATICS: No lymphadenopathy of the neck, axillae or groin. SKIN: No ulcer, rash or bleeding. JOINTS: No active deforming arthropathy. LABS: WBC 6.8, hemoglobin is 11. INR is 1.1. ASSESSMENT: 1. Asthma, chronic obstructive pulmonary disease, acute exacerbation with shortness of breath. 2. Bilateral leg swelling. 3. Atrial fibrillation. 4. History of congestive heart failure. 5. History of gastrointestinal bleed. 6. History of myocardial infarction. 7. History of degenerative joint disease. 8. History of pneumonia. 9. History of hypothyroidism. 10.History of colitis. 11.History of urinary incontinence. 12.History of chronic pain syndrome. 13.History of degenerative joint disease. 14.History of Clostridium difficile colitis. 15.History of cholecystectomy. 16.History of anxiety, depression. RECOMMENDATIONS AND DISCUSSION: Recommend to continue current medication, continue with symptomatic treatment. Otherwise, continue the current medication. Continue with bronchodilators, symptomatic treatment. See orders for details. Otherwise prognosis guarded because of multiple complex medical issues. Further recommendations to follow. A copy of dictation forwarded to Dr. Domingo who is the primary physician. MMODL / IJN: [id number] / SAL
[2018-12-16] MEDS: IPRATROPIUM-ALBUTEROL 3 ML NEB INHALATION SCH ×4 (07:28→19:43)
[2018-12-16] MEDS: SYMBICORT 160-4.5 MCG INHALER INHALATION SCH ×2 (07:28→19:43)
[2018-12-16] MEDS: PANTOPRAZOLE 40 MG TABLET PO SCH ×2 (07:35→16:42)
[2018-12-16 09:41] LABS: Anion Gap 11 mmol/L; Blood Urea Nitrogen 13 mg/dL (7-17); Calcium 9.4 mg/dL (8.4-10.2); Carbon Dioxide 23 mmol/L (22-30); Chloride 106 mmol/L (98-107); Glucose 216 mg/dL (74-99); Potassium 4.5 mmol/L (3.5-5.1); Sodium 140 mmol/L (137-145)
[2018-12-16 10:42] LABS: Basophils % (A) 0 %; Eosinophils % (A) 0 %; HCT 37.2 % (34.0-46.0); HGB 11.9 gm/dL (11.4-16.0); Lymphocytes # (A) 0.6 k/uL (1.0-4.8); Lymphocytes % (A) 9 %; MCH 25.7 pg (25.0-35.0); MCHC 32.1 g/dL (31.0-37.0); MCV 80.2 fL (80.0-100.0); Mean Platelet Volume 7.5; Monocytes # (A) 0.2 k/uL (0-1.0); Monocytes % (A) 3 %; Neutrophils % (A) 88 %; Platelet Count 259 k/uL (150-450); RBC 4.64 m/uL (3.80-5.40); RDW 15.9 % (11.5-15.5); WBC 6.8 k/uL (3.8-10.6)
[2018-12-16] MEDS: HEPARIN SODIUM,PORCINE 5,000 UNIT/ML 1 ML VIAL SQ SCH (16:08)
[2018-12-16] MEDS ORDERED: hydrOXYzine PAMOATE 25 MG CAP PO SCH (21:00)
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
[2018-12-17] MEDS: HYDROmorphone 1 MG/ML 1 ML SYRINGE IVP PRN ×3 (00:56→12:33)
[2018-12-17] MEDS: HEPARIN SODIUM,PORCINE 5,000 UNIT/ML 1 ML VIAL SQ SCH ×2 (00:57→07:18)
[2018-12-17] MEDS: MAGNESIUM SULFATE-D5W PMX 1 GM in DEXTROSE/WATER 1 100ML.BAG IVPB SCH ×2 (00:59→03:19)
[2018-12-17] MEDS: LEVOTHYROXINE 75 MCG TAB PO SCH (06:08)
[2018-12-17] MEDS: HYDROcodone/APAP 10-325MG 1 EACH TAB PO PRN (06:08)
[2018-12-17] MEDS: IPRATROPIUM-ALBUTEROL 3 ML NEB INHALATION SCH ×2 (06:58→12:08)
[2018-12-17] MEDS: SYMBICORT 160-4.5 MCG INHALER INHALATION SCH (06:58)
[2018-12-17 07:10] VITALS: PULSE 84
[2018-12-17] MEDS: PANTOPRAZOLE 40 MG TABLET PO SCH (07:18)
[2018-12-17 07:26] VITALS: RESP 16
[2018-12-17 08:02] VITALS: BP 148/79; TEMP 98.2
[2018-12-17] MEDS ORDERED: predniSONE 10 MG TAB PO SCH (09:00)
--- NOTE | 2018-12-17 15:40 | P.DS ---
Providers Date of admission: 12/15/18 19:43 Expected date of discharge: 12/17/18 Attending physician: Carine Miller Primary care physician: [facility] Course: 68-year-old female with known history of COPD, CHF with diastolic dysfunction, morbid obesity and obesity hypoventilation syndrome, chronic pain and pain syndrome and chronic back pain and history of fall and multiple other medical problems and frequent previous admissions came to ER with complaints of increased leg swelling and shortness of breath and exertional dyspnea for the past few days. Patient does have a history of CHF with preserved ejection fraction. Patient says that her right leg is more swollen but is much improved now. Patient was also having shortness of breath and exertional dyspnea. Patient does have chronic pain and is taking Howard 10 at home. Otherwise denied any complaints of chest pain. No nausea vomiting or diarrhea. No fever no chills. No complaints of abdominal pain. No numbness or tingling. Denied any falls again recently. Right lower extremity swelling is completely resolved now. Ultrasound lower extremity is suboptimal study without convincing evidence of acute DVT in the visualized portions. Some portions of the right lower extremity cannot be evaluated due to body habitus. CT angiogram of the chest showed no acute pulmonary embolism. Lower lung volumes without suspicious acute pulmonary process. Contrast extravasation the identified causing streak artifact anterior left upper chest subcutaneous fat. Chest x-ray showed cardiomegaly. No radiographic sequelae of decompensated congestive heart failure at this time. BNP 990, magnesium 1.6, troponin 1 negative. All other laboratory data within normal limits. Patient was treated with DuoNeb nebulizer treatments and IV steroids which did improve symptoms; still rates were/to oral form and then slowly tapered without any complication; patient is planned to be discharged home with steroid taper and continue all current nebulizer and inhaler treatments and follow up with pulmonary and PCP as an outpatient Plan - Discharge Summary New Discharge Prescriptions: New predniSONE See Taper PO DIRECTED #21 tab Continue Omeprazole [PriLOSEC] 20 mg PO AC-BID Furosemide [Lasix] 40 mg PO DAILY PRN PRN Reason: Edema HYDROcodone/APAP 10-325MG [Howard 10-325] 1 tab PO QID PRN PRN Reason: Pain Levothyroxine Sodium [Synthroid] 150 mcg PO DAILY Albuterol Nebulized [Ventolin Nebulized] 2.5 mg INHALATION RT-QID PRN PRN Reason: Shortness Of Breath LORazepam [Ativan] 0.5 mg PO BID PRN PRN Reason: Anxiety hydrOXYzine PAMOATE [Vistaril] 50 mg PO HS Discharge Medication List Omeprazole [PriLOSEC] 20 mg PO AC-BID 04/19/18 [History] Furosemide [Lasix] 40 mg PO DAILY PRN 05/17/18 [History] HYDROcodone/APAP 10-325MG [Howard 10-325] 1 tab PO QID PRN 05/17/18 [History] Albuterol Nebulized [Ventolin Nebulized] 2.5 mg INHALATION RT-QID PRN 06/18/18 [History] LORazepam [Ativan] 0.5 mg PO BID PRN 06/18/18 [History] Levothyroxine Sodium [Synthroid] 150 mcg PO DAILY 06/18/18 [History] hydrOXYzine PAMOATE [Vistaril] 50 mg PO HS 12/15/18 [History] predniSONE See Taper PO DIRECTED #21 tab 12/17/18 [Rx] Follow up Appointment(s)/Referral(s): Jorje Domingo MD [Primary Care Provider] - 1-2 days Patient Instructions/Handouts: COPD (Chronic Obstructive Pulmonary Disease) (DC) Discharge Disposition: HOME SELF-CARE
== END 2018-12-17 14:45 | disposition home or self-care (01) ==
LOC: EC 13:16 → 4MS4W 19:43 → 4SSUR 12-16 17:16
PROVIDERS: ADMIT Hospitalist; ATTEND Hospitalist
DX: J44.1 Chronic obstructive pulmonary disease with (acute) exacerbation (principal); I50.32 Chronic diastolic (congestive) heart failure; J45.30 Mild persistent asthma, uncomplicated; R22.43 Localized swelling, mass and lump, lower limb, bilateral; E03.9 Hypothyroidism, unspecified; M79.661 Pain in right lower leg; M19.90 Unspecified osteoarthritis, unspecified site; I48.91 Unspecified atrial fibrillation; G89.4 Chronic pain syndrome; M54.9 Dorsalgia, unspecified; R79.89 Other specified abnormal findings of blood chemistry; K22.70 Barrett's esophagus without dysplasia; K44.9 Diaphragmatic hernia without obstruction or gangrene; K21.9 Gastro-esophageal reflux disease without esophagitis; R32 Unspecified urinary incontinence; K58.9 Irritable bowel syndrome, unspecified; E66.2 Morbid (severe) obesity with alveolar hypoventilation; Z68.44 Body mass index [BMI] 60.0-69.9, adult; F41.9 Anxiety disorder, unspecified; F32.9 Major depressive disorder, single episode, unspecified; L30.9 Dermatitis, unspecified; M51.27 Other intervertebral disc displacement, lumbosacral region; M51.24 Other intervertebral disc displacement, thoracic region; Z79.890 Hormone replacement therapy; Z79.891 Long term (current) use of opiate analgesic; Z79.899 Other long term (current) drug therapy; Z88.5 Allergy status to narcotic agent; Z88.8 Allergy status to other drugs, medicaments and biological substances; Z88.6 Allergy status to analgesic agent; Z91.041 Radiographic dye allergy status; Z87.442 Personal history of urinary calculi; Z87.19 Personal history of other diseases of the digestive system; Z85.42 Personal history of malignant neoplasm of other parts of uterus; Z87.01 Personal history of pneumonia (recurrent); Z86.19 Personal history of other infectious and parasitic diseases; Z90.49 Acquired absence of other specified parts of digestive tract; Z87.440 Personal history of urinary (tract) infections; Z16.24 Resistance to multiple antibiotics; Z87.81 Personal history of (healed) traumatic fracture; Z90.710 Acquired absence of both cervix and uterus; Z96.653 Presence of artificial knee joint, bilateral; Z96.642 Presence of left artificial hip joint; I25.2 Old myocardial infarction; Z77.22 Contact with and (suspected) exposure to environmental tobacco smoke (acute) (chronic); Z91.81 History of falling; Z82.49 Family history of ischemic heart disease and other diseases of the circulatory system; Z80.1 Family history of malignant neoplasm of trachea, bronchus and lung; Z83.49 Family history of other endocrine, nutritional and metabolic diseases; Z80.52 Family history of malignant neoplasm of bladder; Z82.3 Family history of stroke
CPT/HCPCS: 96376 ×4; 96365; 96366; 96372 ×2; 96375; 99285; 36415; 94640 ×4; 93005; 85379; 83880; 80053; 80048; 83735; 84484; 85025 ×2; 85610; 85730; 87040; 71046; 93971; 71275; G0378 ×3; J1200; J1644 ×2; J2930 ×2; J1170 ×4; J3475; J7512; Q9967

== ENCOUNTER 2018-12-23 12:00 | Inpatient (IN) | payer MEDICARE, OTHER ==
[2018-12-23] MEDS ORDERED: ALPRAZolam 0.25 MG TAB PO STA (12:45)
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
[2018-12-23] MEDS ORDERED: MORPHINE SULFATE 4 MG/ML SYRINGE IVP STA ×3 (13:42→15:20)
[2018-12-23 13:57] LABS: Basophils % (A) 0 %; Eosinophils # (A) 0.3 k/uL (0-0.7); Eosinophils % (A) 2 %; HCT 36.8 % (34.0-46.0); HGB 11.9 gm/dL (11.4-16.0); Lymphocytes # (A) 1.3 k/uL (1.0-4.8); Lymphocytes % (A) 12 %; MCH 25.5 pg (25.0-35.0); MCHC 32.4 g/dL (31.0-37.0); MCV 78.9 fL (80.0-100.0); Mean Platelet Volume 6.2; Microcytosis Slight; Monocytes # (A) 0.5 k/uL (0-1.0); Monocytes % (A) 5 %; Neutrophils # (A) 8.7 k/uL (1.3-7.7); Neutrophils % (A) 80 %; Platelet Count 371 k/uL (150-450); RBC 4.67 m/uL (3.80-5.40); RDW 15.7 % (11.5-15.5)
[2018-12-23] MEDS ORDERED: ONDANSETRON 4 MG/2 ML VIAL IVP STA (13:57)
[2018-12-23 14:03] LABS: INR 0.9 (<1.2); Partial Thromboplastin Time 23.6 sec (22.0-30.0); Prothrombin Time 9.8 sec (9.0-12.0)
--- NOTE | 2018-12-23 14:07 | XR ---
EXAMINATION TYPE: XR chest 2V DATE OF EXAM: 12/23/2018 COMPARISON: 12/15/2018 INDICATION: Difficulty breathing TECHNIQUE: Frontal and lateral views of the chest are obtained. FINDINGS: The heart size is normal. The pulmonary vasculature is normal. The lungs are clear. IMPRESSION: 1. No acute pulmonary process.
[2018-12-23 14:09] LABS: ALT 25 U/L (9-52); AST 20 U/L (14-36); Albumin 4.4 g/dL (3.5-5.0); Alkaline Phosphatase 128 U/L (38-126); Anion Gap 8 mmol/L; Blood Urea Nitrogen 9 mg/dL (7-17); Calcium 9.7 mg/dL (8.4-10.2); Carbon Dioxide 28 mmol/L (22-30); Chloride 104 mmol/L (98-107); Glucose 104 mg/dL (74-99); Potassium 4.7 mmol/L (3.5-5.1); Sodium 140 mmol/L (137-145); Total Bilirubin 0.8 mg/dL (0.2-1.3); Total Protein 7.1 g/dL (6.3-8.2)
[2018-12-23] MEDS ORDERED: IPRATROPIUM-ALBUTEROL 3 ML NEB INHALATION STA (14:42)
[2018-12-23] MEDS ORDERED: ALBUTEROL NEBULIZED 2.5 MG/3 ML INHALATION PRN (15:17)
[2018-12-23] MEDS ORDERED: FUROSEMIDE 40 MG TAB PO PRN (15:17)
[2018-12-23] MEDS: HYDROcodone/APAP 10-325MG 1 EACH TAB PO PRN (17:54)
[2018-12-23 18:21] VITALS: BMI 63.1
[2018-12-23 18:28] LABS: Appearance,Urine Cloudy (Clear); Bacteria,Urine Occasional /hpf; Bilirubin,Urine Negative (Negative); Blood,Urine Trace (Negative); Calcium Oxalate Crystals,Urine Occasional /hpf; Color,Urine Yellow; Glucose,Urine (UA) Negative (Negative); Ketones,Urine Negative (Negative); Leukocyte Esterase,Urine Large (Negative); Mucus,Urine Occasional /hpf; Nitrite,Urine Negative (Negative); Protein,Urine Negative (Negative); RBC,Urine 46 /hpf (0-5); Specific Gravity,Urine 1.016 (1.001-1.035); Squamous Epithelial Cell,Urine 3 /hpf (0-4); Urobilinogen,Urine <2.0 mg/dL (<2.0)
[2018-12-23] MEDS: MORPHINE SULFATE 4 MG/ML SYRINGE IVP PRN ×2 (18:42→22:39)
[2018-12-23] MEDS: hydrOXYzine PAMOATE 25 MG CAP PO SCH (22:39)
[2018-12-24] MEDS: HYDROcodone/APAP 10-325MG 1 EACH TAB PO PRN ×4 (00:29→22:40)
[2018-12-24] MEDS: MORPHINE SULFATE 4 MG/ML SYRINGE IVP PRN ×5 (02:41→20:06)
[2018-12-24] MEDS: LEVOTHYROXINE 75 MCG TAB PO SCH (06:03)
[2018-12-24] MEDS: predniSONE 20 MG TAB PO SCH (07:56)
[2018-12-24] MEDS: PANTOPRAZOLE 40 MG TABLET PO SCH (07:57)
[2018-12-24] MEDS: IPRATROPIUM-ALBUTEROL 3 ML NEB INHALATION PRN (12:05)
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
[2018-12-24] MEDS: hydrOXYzine PAMOATE 25 MG CAP PO SCH (20:07)
[2018-12-25] MEDS: MORPHINE SULFATE 4 MG/ML SYRINGE IVP PRN ×3 (00:17→08:13)
[2018-12-25] MEDS: LEVOTHYROXINE 75 MCG TAB PO SCH (05:08)
[2018-12-25] MEDS: HYDROcodone/APAP 10-325MG 1 EACH TAB PO PRN ×5 (05:08→22:39)
[2018-12-25] MEDS: predniSONE 20 MG TAB PO SCH (08:13)
[2018-12-25] MEDS: PANTOPRAZOLE 40 MG TABLET PO SCH (08:14)
[2018-12-25 08:16] LABS: Anion Gap 7 mmol/L; Blood Urea Nitrogen 16 mg/dL (7-17); Calcium 9.2 mg/dL (8.4-10.2); Carbon Dioxide 25 mmol/L (22-30); Chloride 105 mmol/L (98-107); Glucose 104 mg/dL (74-99); Potassium 4.7 mmol/L (3.5-5.1); Sodium 137 mmol/L (137-145)
[2018-12-25] MEDS: LORazepam 0.5 MG TAB PO PRN ×2 (08:19→20:00)
[2018-12-25 08:39] LABS: Anisocytosis Slight; HCT 33.8 % (34.0-46.0); HGB 10.9 gm/dL (11.4-16.0); MCH 26.1 pg (25.0-35.0); MCHC 32.3 g/dL (31.0-37.0); MCV 80.7 fL (80.0-100.0); Mean Platelet Volume 7.3; Platelet Count 284 k/uL (150-450); RBC 4.18 m/uL (3.80-5.40); RDW 16.3 % (11.5-15.5); WBC 8.7 k/uL (3.8-10.6)
--- NOTE | 2018-12-25 10:17 | P.PN ---
Subjective Progress Note Date: 12/25/18 Principal diagnosis: Generalized anxiety disorder, obesity hypoventilation syndrome, obstructive sleep apnea, COPD, chronic persistent asthma, morbid obesity, chronic back pain, history of uterine cancer, chronic back pain with herniated disc at L2-3 L4 5 and S1, hypothyroidism, colitis, degenerative joint disease 12/25/2018, patient seen eval reexamined during the rounds she is breathing comfortably, today symptoms have appears to be improved she frequently breaks into tears intermittently agitated and intermittently still having some pains which are more general involving thoracoabdominal and back Patient is a 68-year-old female with history of asthma COPD heart failure presented with dyspnea cough and shortness of breath Objective - Vital Signs Vital signs: Vital Signs Temp 98.1 F 12/25/18 05:38 Pulse 82 12/25/18 05:38 Resp 18 12/25/18 05:38 BP 109/64 12/25/18 05:38 Pulse Ox 94 L 12/25/18 05:38 Intake & Output 12/24/18 12/25/18 12/25/18 18:59 06:59 18:59 Intake Total 520 320 Output Total 200 Balance 320 320 Intake: Oral 520 320 Output: Urine 200 Other: Voiding Method Bedside Commode Bedside Commode Bedside Commode # Voids 2 3 - Constitutional General appearance: Present: disheveled, morbidly obese, no acute distress - EENT Eyes: Present: EOMI, PERRLA, normal appearance ENT: Present: normal oropharynx Ears: bilateral: normal - Neck Neck: Present: normal ROM Carotids: bilateral: upstroke normal - Respiratory Respiratory: bilateral: CTA - Cardiovascular Rhythm: regular Heart sounds: normal: S1, S2 - Gastrointestinal General gastrointestinal: Present: decreased bowel sounds, soft - Neurologic Neurologic: Present: CNII-XII intact - Musculoskeletal Musculoskeletal: Present: gait normal, generalized weakness, strength equal bilaterally - Psychiatric Psychiatric: Present: A&O x's 3, appropriate affect - Labs CBC & Chem 7: 12/25/18 07:23 12/25/18 07:23 Labs: Abnormal Lab Results - Last 24 Hours (Table) 12/25/18 12/25/18 Range/Units 07:23 07:23 Hgb 10.9 L (11.4-16.0) gm/dL Hct 33.8 L (34.0-46.0) % RDW 16.3 H (11.5-15.5) % Glucose 104 H (74-99) mg/dL - Imaging and Cardiology Chest x-ray: report reviewed, image reviewed (Chest x-ray within normal limits) Assessment and Plan Assessment: Chronic persistent asthma with exacerbation Chronic pain syndrome Morbid obesity Mood disorder and depression Plan: Continue breathing treatments Antibiotics Continue home medications DVT and peptic ulcer disease prophylaxis Increase activity as tolerated Further recommendations pending plan of care as per clinical response of patient Lungs are fairly stable agree with discharge planning to rehab Time with Patient: Greater than 30
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
[2018-12-25] MEDS: oxyCODONE ER 15 MG TAB.ER.12H PO SCH (20:00)
[2018-12-25] MEDS: hydrOXYzine PAMOATE 25 MG CAP PO SCH (20:01)
[2018-12-26] MEDS: HYDROcodone/APAP 10-325MG 1 EACH TAB PO PRN ×4 (03:10→17:07)
[2018-12-26] MEDS: PANTOPRAZOLE 40 MG TABLET PO SCH (07:09)
[2018-12-26] MEDS: LEVOTHYROXINE 75 MCG TAB PO SCH (07:09)
[2018-12-26] MEDS: predniSONE 20 MG TAB PO SCH ×2 (07:09→07:10)
[2018-12-26] MEDS ORDERED: cefTRIAXone 1,000 MG VIAL (IM USE) IM SCH (09:00)
[2018-12-26] MEDS: LORazepam 0.5 MG TAB PO PRN (09:33)
[2018-12-26] MEDS: oxyCODONE ER 15 MG TAB.ER.12H PO SCH (09:33)
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
--- NOTE | 2018-12-26 14:52 | ECHOF ---
Referral Reason: MEASUREMENTS -------- HEIGHT: 160.0 cm WEIGHT: 156.5 kg BP: IVSd: 1.6 cm (0.6 - 1.1) LVIDd: 3.8 cm (3.9 - 5.3) LVPWd: 1.5 cm (0.6 - 1.1) IVSs: 1.5 cm LVIDs: 1.8 cm LVPWs: 2.1 cm LA Diam: 1.6 cm (2.7 - 3.8) Ao Diam: 3.1 cm (2.0 - 3.7) AV Cusp: 1.4 cm (1.5 - 2.6) LA Diam: 3.1 cm (2.7 - 3.8) MV EXCURSION: 19.089 mm (> 18.000) MV EF SLOPE: 63 mm/s (70 - 150) EPSS: 0.5 cm MV E Izaiah: 0.86 m/s MV DecT: 188 ms MV A Izaiah: 0.85 m/s MV E/A Ratio: 1.02 AV maxP.66 mmHg AV meanP.89 mmHg RAP: 5.00 mmHg RVSP: 32.48 mmHg FINDINGS -------- Sinus rhythm. This was a technically difficult study with suboptimal views. Morbid Obesity Pt is uncooperative. Unable to use Lumason due to no I.V. The left ventricular size is normal. There is moderate concentric left ventricular hypertrophy. O verall left ventricular systolic function is normal with, an EF between 55 - 60 %. The RV was not well visualized. The left atrium was not well visualized. The right atrium was not well visualized. Aortic valve is trileaflet and is mildly thickened. There is mild aortic stenosis present. There is trace mitral regurgitation. Mild tricuspid regurgitation present. There is no evidence of pulmonary hypertension. The right v entricular systolic pressure, as measured by Doppler, is 32.48mmHg. The pulmonic valve was not well visualized. The aortic root size is normal. IVC Not well visulized. There is no pericardial effusion. CONCLUSIONS -------- 1. Sinus rhythm. 2. This was a technically difficult study with suboptimal views. 3. Morbid Obesity 4. Pt is uncooperative. Unable to use Lumason due to no I.V. 5. The left ventricular size is normal. 6. There is moderate concentric left ventricular hypertrophy. 7. Overall left ventricular systolic function is normal with, an EF between 55 - 60 %. 8. The RV was not well visualized. 9. The left atrium was not well visualized. 10. The right atrium was not well visualized. 11. Aortic valve is trileaflet and is mildly thickened. 12. There is mild aortic stenosis present. 13. There is trace mitral regurgitation. 14. Mild tricuspid regurgitation present. 15. There is no evidence of pulmonary hypertension. 16. The right ventricular systolic pressure, as measured by Doppler, is 32.48mmHg. 17. The pulmonic valve was not well visualized. 18. The aortic root size is normal. 19. IVC Not well visulized. 20. There is no pericardial effusion. SITE SUPERVISING TECHNICAL OPERATOR: Christina Patel RDCS
[2018-12-26] MEDS: MORPHINE SULFATE 4 MG/ML SYRINGE IVP PRN ×2 (15:14→19:20)
[2018-12-26] MEDS: CEPHALEXIN 500 MG CAP PO SCH ×2 (15:23→20:49)
[2018-12-26] MEDS: ALPRAZolam 0.5 MG TAB PO PRN (15:23)
[2018-12-26] MEDS: hydrOXYzine PAMOATE 25 MG CAP PO SCH (20:48)
[2018-12-26] MEDS ORDERED: oxyCODONE ER 20 MG TAB.ER.12H PO SCH (21:00)
[2018-12-27] MEDS: MORPHINE SULFATE 4 MG/ML SYRINGE IVP PRN ×6 (00:42→21:22)
[2018-12-27] MEDS: HYDROcodone/APAP 10-325MG 1 EACH TAB PO PRN ×3 (02:18→19:27)
[2018-12-27] MEDS: LEVOTHYROXINE 75 MCG TAB PO SCH (05:48)
[2018-12-27] MEDS: PANTOPRAZOLE 40 MG TABLET PO SCH (07:56)
[2018-12-27] MEDS: CEPHALEXIN 500 MG CAP PO SCH ×3 (07:56→19:27)
[2018-12-27] MEDS: predniSONE 20 MG TAB PO SCH (07:56)
--- NOTE | 2018-12-27 10:03 | P.PN ---
Subjective Progress Note Date: 12/27/18 Principal diagnosis: Generalized anxiety disorder, obesity hypoventilation syndrome, obstructive sleep apnea, COPD, chronic persistent asthma, morbid obesity, chronic back pain, history of uterine cancer, chronic back pain with herniated disc at L2-3 L4 5 and S1, hypothyroidism, colitis, degenerative joint disease 12/27/2018, patient seen and evaluated during the rounds, she continued to have pain in the chest and back which was chronic in nature morphine has been helping [place] is not very helpful from breathing standpoint she still have shortness of breath but severity has improved denies any cough or sputum production, she is on room air oxygen saturations 95% nonlabored breathing is present, labs and medications are reviewed, patient is being switched to oral antibiotics and oral prednisone which was tapered gradually 12/25/2018, patient seen eval reexamined during the rounds she is breathing comfortably, today symptoms have appears to be improved she frequently breaks into tears intermittently agitated and intermittently still having some pains which are more general involving thoracoabdominal and back Patient is a 68-year-old female with history of asthma COPD heart failure presented with dyspnea cough and shortness of breath Objective - Vital Signs Vital signs: Vital Signs Temp 98.4 F 12/27/18 05:00 Pulse 76 12/27/18 05:00 Resp 20 12/27/18 05:00 BP 115/71 12/27/18 05:00 Pulse Ox 95 12/27/18 05:00 Intake & Output 12/26/18 12/27/18 12/27/18 18:59 06:59 18:59 Intake Total 1080 1200 Balance 1080 1200 Intake: Oral 1080 1200 Other: Voiding Method Bedside Commode Bedside Commode # Voids 1 1 # Bowel Movements 1 - Exam - Constitutional General appearance: Present: disheveled, morbidly obese, no acute distress - EENT Eyes: Present: EOMI, PERRLA, normal appearance ENT: Present: normal oropharynx Ears: bilateral: normal - Neck Neck: Present: normal ROM Carotids: bilateral: upstroke normal - Respiratory Respiratory: bilateral: CTA - Cardiovascular Rhythm: regular Heart sounds: normal: S1, S2 - Gastrointestinal General gastrointestinal: Present: decreased bowel sounds, soft - Neurologic Neurologic: Present: CNII-XII intact - Musculoskeletal Musculoskeletal: Present: gait normal, generalized weakness, strength equal bilaterally - Psychiatric Psychiatric: Present: A&O x's 3, appropriate affect - Labs CBC & Chem 7: 12/25/18 07:23 12/25/18 07:23 Assessment and Plan Assessment: Chronic persistent asthma with exacerbation Chronic pain syndrome Morbid obesity Mood disorder and depression Plan: Continue breathing treatments Antibiotics Continue home medications DVT and peptic ulcer disease prophylaxis Increase activity as tolerated Further recommendations pending plan of care as per clinical response of patient Lungs are fairly stable agree with discharge planning to rehab Time with Patient: Greater than 30
[2018-12-27] MEDS: IPRATROPIUM-ALBUTEROL 3 ML NEB INHALATION PRN (15:43)
[2018-12-27] MEDS: hydrOXYzine PAMOATE 25 MG CAP PO SCH (19:27)
--- NOTE | 2018-12-27 21:32 | P.PN ---
Subjective 12/25/2018 Patient today was really frustrated as her IV blew and she can get her pain medications She is still complaining of pain in the chest and the back She said that she still short of breath because of the pain 12/26/2018 Patient says that her pain is not controlled. She was frustrated and furious about not having an IV. Still complains of back pain and chest soreness 12/27/18 Pt says pain is better still c/o of chest tightness and back pain Objective - Vital Signs Vital signs: Vital Signs Temp 98.0 F 12/27/18 13:00 Pulse 80 12/27/18 15:54 Resp 18 12/27/18 13:00 BP 124/84 12/27/18 13:00 Pulse Ox 97 12/27/18 13:00 Intake & Output 12/27/18 12/27/18 12/28/18 06:59 18:59 06:59 Intake Total 1200 540 Balance 1200 540 Intake: Oral 1200 540 Other: Voiding Method Bedside Commode Bedside Commode # Voids 1 3 # Bowel Movements 1 - Exam On exam, alert and oriented x3. HEENT: Conjunctivae normal. eyes normal. NECK: No JVD. No thyroid enlargement. No LNs CARDIOVASCULAR: his S2 positive. Patient is having reproducible tenderness on palpating her chest in the front RESPIRATION: Breath sounds diminished in the bases. No rhonchi or crackles. No b ronchial breathing. ABDOMEN: Soft, nontender . No guarding. no masses palpable. No ascites, No hep atosplenomegaly.Bowel sounds heard. LEGS: No edema. no swelling NERVOUS SYSTEM: Cranial N 2-12 grossly normal. Moves all 4 limbs. No focal deficits. No sensory deficit. No signs of cerebellar dysfucntion. Skin: no ulcer no rash - Labs CBC & Chem 7: 12/25/18 07:23 12/25/18 07:23 Assessment and Plan Assessment: - dyspnea and chest pain need to rule out the cause - History of chronic back pain - Obesity - history of uterine cancer - history of herniated disc 2-3 for, L4 5 and S1 - History of sternal fracture twice - History of hypothyroidism - History of arthritis - History of colitis Plan 12/24/2018 - we'll admit the patient to [facility] with telemetry - Pulmonology consulted for dyspnea and soreness in the chest - Patient thinks patient says that the pain is similar to when she had the st ernal fracture. She is also complaining of back pain. Orthopedic surgery consulted - We'll monitor troponin levels to make sure it is not cardiac and also order for echocardiogram although it seems on probability as the pain is reproducible - We'll resume the patient's home medications - Continue pain control - DVT and GI prophylaxis - We'll order for lab work in the morning - Patient is full code 12/25/2018 Patient was frustrated as her IV blew and she does not have an IV access for pain medications and anesthesia trying to put an IV line. To that time we'll give her [place]. Patient unhappy at this We will go to DC her morphine as she is no longer getting it Patient to go to rehab We'll consult we'll consult PT OT 12/26/2018 - We'll increase her oxycodone ER to 20 mg twice a day and continue with [place] every 4 hours - We'll change her Rocephin IV to keflex 500 mg by mouth 3 times a day - Anesthesia called again to see if they can get an IV ultrasound-guided - Continue rest of the medical care - PTOT consulted - Patient to go to rehab 12/27/18 - Continue morphine and norco - Pt continues to have chest pain, echo shows no wall motion abnormality, will consult cardio - Awaiting rehab placement - Will monitor. Time with Patient: Less than 30
[2018-12-27 23:11] VITALS: RESP 20
[2018-12-28] MEDS: MORPHINE SULFATE 4 MG/ML SYRINGE IVP PRN ×3 (02:54→11:55)
[2018-12-28] MEDS: HYDROcodone/APAP 10-325MG 1 EACH TAB PO PRN ×2 (04:08→09:57)
[2018-12-28] MEDS: LEVOTHYROXINE 75 MCG TAB PO SCH (05:39)
[2018-12-28] MEDS: CEPHALEXIN 500 MG CAP PO SCH (07:53)
[2018-12-28] MEDS: PANTOPRAZOLE 40 MG TABLET PO SCH (07:53)
[2018-12-28] MEDS: predniSONE 20 MG TAB PO SCH (08:09)
[2018-12-28] MEDS: IPRATROPIUM-ALBUTEROL 3 ML NEB INHALATION PRN (09:24)
[2018-12-28] MEDS: ALPRAZolam 0.5 MG TAB PO PRN (12:11)
[2018-12-28 13:30] VITALS: BP 135/75; PULSE 78; TEMP 98.3
--- NOTE | 2018-12-28 14:18 | P.PN ---
Subjective Progress Note Date: 12/28/18 Principal diagnosis: Generalized anxiety disorder, obesity hypoventilation syndrome, obstructive sleep apnea, COPD, chronic persistent asthma, morbid obesity, chronic back pain, history of uterine cancer, chronic back pain with herniated disc at L2-3 L4 5 and S1, hypothyroidism, colitis, degenerative joint disease 12/28/2018, patient seen eval reexamined during the rounds from respiratory standpoint doing fairly well but intermittently has episodes of anxiety and depression during which she complaining of chest pain and shortness of breath she has chronic back pain from respiratory standpoint she can be tapered off of prednisone agree with discharge planning placement in rehab , patient seen and evaluated during the rounds, she continued to have pain in the chest and back which was chronic in nature morphine has been helping Mcguffey is not very helpful from breathing standpoint she still have shortness of breath but severity has improved denies any cough or sputum production, she is on room air oxygen saturations 95% nonlabored breathing is present, labs and medications are reviewed, patient is being switched to oral antibiotics and oral prednisone which was tapered gradually 12/25/2018, patient seen eval reexamined during the rounds she is breathing comfortably, today symptoms have appears to be improved she frequently breaks into tears intermittently agitated and intermittently still having some pains which are more general involving thoracoabdominal and back Patient is a 68-year-old female with history of asthma COPD heart failure presented with dyspnea cough and shortness of breath Objective - Vital Signs Vital signs: Vital Signs Temp 98.3 F 12/28/18 12:43 Pulse 78 12/28/18 12:43 Resp 20 12/28/18 12:43 BP 135/75 12/28/18 12:43 Pulse Ox 92 L 12/28/18 12:43 Intake & Output 12/27/18 12/28/18 12/28/18 18:59 06:59 18:59 Intake Total 540 1100 200 Balance 540 1100 200 Intake: Oral 540 1100 200 Other: Voiding Method Bedside Commode Bedside Commode # Voids 3 3 2 # Bowel Movements 1 1 - Exam - Constitutional General appearance: Present: disheveled, morbidly obese, no acute distress - EENT Eyes: Present: EOMI, PERRLA, normal appearance ENT: Present: normal oropharynx Ears: bilateral: normal - Neck Neck: Present: normal ROM Carotids: bilateral: upstroke normal - Respiratory Respiratory: bilateral: CTA - Cardiovascular Rhythm: regular Heart sounds: normal: S1, S2 - Gastrointestinal General gastrointestinal: Present: decreased bowel sounds, soft - Neurologic Neurologic: Present: CNII-XII intact - Musculoskeletal Musculoskeletal: Present: gait normal, generalized weakness, strength equal bilaterally - Psychiatric Psychiatric: Present: A&O x's 3, appropriate affect - Labs CBC & Chem 7: 12/25/18 07:23 12/25/18 07:23 Assessment and Plan Assessment: Chronic persistent asthma with exacerbation Chronic pain syndrome Morbid obesity Mood disorder and depression Plan: Continue breathing treatments Antibiotics Continue home medications DVT and peptic ulcer disease prophylaxis Increase activity as tolerated Further recommendations pending plan of care as per clinical response of patient Lungs are fairly stable agree with discharge planning to rehab Time with Patient: Greater than 30
--- NOTE | 2018-12-28 14:54 | P.DS ---
Providers Date of admission: 12/25/18 15:13 Expected date of discharge: 12/28/18 Attending physician: Ananth Hobson MD Consults: 12/23/18 15:15 Consult Physician Routine Consulting Provider: Shaniqua Penn Consult Reason/Comments: back pain Do you want consulting provider notified?: Yes 12/24/18 02:01 Consult Physician Routine Consulting Provider: Peter Howard Consult Reason/Comments: patient known to you. dyspnea Do you want consulting provider notified?: Yes, Notify in am [facility] Course: Discharge diagnosis - dyspnea and chest pain. Ruled out ACS. - Chronic persistent asthma- - acute on chronic back pain - Morbid Obesity - Chronic pain syndrome - history of uterine cancer - history of herniated disc 2-3 for, L4 5 and S1 - History of sternal fracture twice - History of hypothyroidism - History of arthritis - History of colitis Hospital course this is a 68-year-old female with a history of multiple admissions in the past. Comes in with complaints of shortness of breath, chest pain and back pain.. The patient says thatshe was recently discharged from the hospital on 12/17/2018. She was feeling fine. Few days ago she started having shortness of breath again and this time started having chest pain which she described more as a soreness in the center of the chest. She is also having pain in her back which is chron ic for her.she otherwise does not complain of any cough, any fever or chills, any nausea vomiting, no diarrhea constipation, noting numbness on his extremities, and additional rest. ER course-temperature 97.4 pulse 85 respiration 20 blood pressure 153/94 satting 93% on 2 L. WBC 11.0 hemoglobin 11.9 platelets 371 sodium 140 potassium 4.7 BU and 9 creatinine 0.70.EKG shows normal sinus rhythm. Patient was admitted to the hospitalist service and consulted with orthopedic surgery and pulmonology. Patient was seen by orthopedic surgery and recommended to continue with current pain medications and follow up as an outpatient. Patient was seen by pulmonary as well and is being continued on antibiotics in the form of ceftriaxone, changed to Keflex while in the hospital. Continued on tapering steroid dose and breathing treatments for acute asthma/COPD exacerbation. Patient had 2-D echocardiogram done showed normal ejection fraction and no wall motion abnormalities noted. Patient will be continued on current pain medications with [place] 10 as needed and Xanax 0.5 twice a day. PT OT recommends transfer to rehab for therapy. Patient otherwise clinically stable to be discharged. On exam, alert and oriented x3. HEENT: Conjunctivae normal. eyes normal. NECK: No JVD. No thyroid enlargement. No LNs CARDIOVASCULAR: his S2 positive. Patient is having reproducible tenderness on palpating her chest in the front RESPIRATION: Breath sounds diminished in the bases. No rhonchi or crackles. No bronchial breathing. ABDOMEN: Soft, nontender . No guarding. no masses palpable. No ascites, No hepatosplenomegaly.Bowel sounds heard. LEGS: No edema. no swelling NERVOUS SYSTEM: Cranial N 2-12 grossly normal. Moves all 4 limbs. No focal deficits. No sensory deficit. No signs of cerebellar dysfucntion. Skin: no ulcer no rash Vital Signs 12/28/18 12/28/18 12/28/18 09:24 09:35 12:43 Temperature 98.3 F Pulse Rate 92 92 Pulse Rate [ 78 Pulse Oximetery ] Respiratory 20 Rate Blood Pressure 135/75 [Left Arm] O2 Sat by Pulse 92 L Oximetry Total time taken greater than 35 minutes including 18 minutes for counseling and coordination of care. Patient Condition at Discharge: Good Plan - Discharge Summary New Discharge Prescriptions: New predniSONE See Taper PO DAILY 6 Days #9 tab Continue Omeprazole [PriLOSEC] 20 mg PO AC-BID Furosemide [Lasix] 40 mg PO DAILY PRN PRN Reason: Edema Levothyroxine Sodium [Synthroid] 150 mcg PO DAILY Albuterol Nebulized [Ventolin Nebulized] 2.5 mg INHALATION RT-QID PRN PRN Reason: Shortness Of Breath hydrOXYzine PAMOATE [Vistaril] 50 mg PO HS LORazepam [Ativan] 0.5 mg PO BID PRN 3 Days #6 tab PRN Reason: Anxiety HYDROcodone/APAP 10-325MG [[place] 10-325] 1 tab PO QID PRN 3 Days #12 tab PRN Reason: Pain Discharge Medication List Omeprazole [PriLOSEC] 20 mg PO AC-BID 04/19/18 [History] Furosemide [Lasix] 40 mg PO DAILY PRN 05/17/18 [History] Albuterol Nebulized [Ventolin Nebulized] 2.5 mg INHALATION RT-QID PRN 06/18/18 [History] Levothyroxine Sodium [Synthroid] 150 mcg PO DAILY 06/18/18 [History] hydrOXYzine PAMOATE [Vistaril] 50 mg PO HS 12/15/18 [History] HYDROcodone/APAP 10-325MG [[place] 10-325] 1 tab PO QID PRN 3 Days #12 tab 12/28/18 [Rx] LORazepam [Ativan] 0.5 mg PO BID PRN 3 Days #6 tab 12/28/18 [Rx] predniSONE See Taper PO DAILY 6 Days #9 tab 12/28/18 [Rx] Follow up Appointment(s)/Referral(s): Valentino Basurto PAC [[facility]] - As Needed (Patient may follow-up with Valentino Basurto PA-C or Dr. Manish Penn at [facility] on an as-needed basis following discharge. ) Jorje Domingo MD [Primary Care Provider] - 1-2 days Discharge Disposition: TRANSFER TO SNF/ECF
--- NOTE | 2018-12-28 15:11 | CDI ---
Documentation Clarification Form Date: 12/28/2018 From: Neelam Wall Admit Date: 12/25/2018 3:13:00 PM Patient Name: Renée Krishnan Visit Number: [id number] Discharge Date: ATTENTION: The Clinical Documentation Specialists (CDI) and [facility] Coding Staff appreciate your assistance in clarifying documentation. Please respond to the clarification below the line at the bottom and electronically sign. The CDI & [facility] Coding staff will review the response and follow-up if needed. Please note: Queries are made part of the Legal Health Record. If you have any questions, please contact the author of this message via ITS. Dr. Desmond Narayanan MD The patient presented with Dyspnea and Chest Pain History/Risk Factors: 68 year old female with a medical history of COPD, Asthma , heart failure, afib Clinical Indicators: Pulmonary consult [place] persistent asthma with exacerbation Lab findings: wbc 8.7, hgb 10.9, Radiology findings: CXR no acute pulmonary process. Vital Signs: 109/64 82 98.1 94% ra Other Clinical Indicators: Treatment: prednisone; Keflex; Albuterol; Ipatropium; Consults: Pulmonary In your professional opinion, can you please clarify the diagnosis being treated with Keflex PO? * Acute Exacerbation of Asthma/ COPD with tracehobronchitis * Acute Exacerbation of Asthma/ COPD with bronchitis * Other, please specify * Unable to determine (Last Revision: November 2017) Acute Exacerbation of Asthma/ COPD with tracehobronchitis MTDD
--- NOTE | 2018-12-29 11:38 | CDI ---
Documentation Clarification Form Date: 12/29/18 From: Eli Pringle Phone: If questions call Anel Wooten @ [phone], Hours-8:30 am & 5 pm M- F Admit Date: 12/25/2018 3:13:00 PM Patient Name: Renée Krishnan Visit Number: [id number] Discharge Date: 12/28/2018 3:37:00 PM ATTENTION: The Clinical Documentation Specialists (CDI) and [facility] Coding Staff appreciate your assistance in clarifying documentation. Please respond to the clarification below the line at the bottom and electronically sign. The CDI & [facility] Coding staff will review the response and follow-up if needed. Please note: Queries are made part of the Legal Health Record. If you have any questions, please contact the author of this message via ITS. Dr. Peter Howard Chronic persistent asthma in exacerbaton is documented in your consult, PNs 12/25, 12/27, 12/28 & DS. History/risk factors: COPD, heart failure Radiology: CXR no acute pulmonary process Vital Signs: 109/64 82 98.1 94% ra Treatment: Duoneb, Albuterol nebulizer In your professional opinion, can you please further specify the severity of chronic persistent asthma? Severity Mild persistent Moderate persistent Severe persistent Other, please specify ____ Unable to determine MTDD
== END 2018-12-28 15:37 | DRG 191 ==
LOC: EC 12:00 → 4MS4W 15:15 → OBSVTOIN 12-25 15:13
PROVIDERS: ADMIT Internal Medicine; ATTEND Internal Medicine
DX: J44.1 Chronic obstructive pulmonary disease with (acute) exacerbation (principal); E66.2 Morbid (severe) obesity with alveolar hypoventilation; Z68.44 Body mass index [BMI] 60.0-69.9, adult; I50.32 Chronic diastolic (congestive) heart failure; R13.10 Dysphagia, unspecified; J44.0 Chronic obstructive pulmonary disease with (acute) lower respiratory infection; J20.9 Acute bronchitis, unspecified; E03.9 Hypothyroidism, unspecified; K22.70 Barrett's esophagus without dysplasia; K58.9 Irritable bowel syndrome, unspecified; G47.33 Obstructive sleep apnea (adult) (pediatric); M51.14 Intervertebral disc disorders with radiculopathy, thoracic region; M51.17 Intervertebral disc disorders with radiculopathy, lumbosacral region; M51.16 Intervertebral disc disorders with radiculopathy, lumbar region; G89.4 Chronic pain syndrome; F32.9 Major depressive disorder, single episode, unspecified; M19.90 Unspecified osteoarthritis, unspecified site; K44.9 Diaphragmatic hernia without obstruction or gangrene; R32 Unspecified urinary incontinence; J45.998 Other asthma; L30.9 Dermatitis, unspecified; I25.2 Old myocardial infarction; Z79.890 Hormone replacement therapy; Z79.899 Other long term (current) drug therapy; Z85.42 Personal history of malignant neoplasm of other parts of uterus; Z90.710 Acquired absence of both cervix and uterus; Z90.49 Acquired absence of other specified parts of digestive tract; Z96.653 Presence of artificial knee joint, bilateral; Z96.642 Presence of left artificial hip joint; Z86.19 Personal history of other infectious and parasitic diseases; Z87.442 Personal history of urinary calculi; Z87.19 Personal history of other diseases of the digestive system; Z86.79 Personal history of other diseases of the circulatory system; Z87.01 Personal history of pneumonia (recurrent); Z91.81 History of falling; Z88.5 Allergy status to narcotic agent; Z88.8 Allergy status to other drugs, medicaments and biological substances; Z91.041 Radiographic dye allergy status; Z82.49 Family history of ischemic heart disease and other diseases of the circulatory system; Z80.1 Family history of malignant neoplasm of trachea, bronchus and lung; Z83.49 Family history of other endocrine, nutritional and metabolic diseases; Z80.52 Family history of malignant neoplasm of bladder; Z82.3 Family history of stroke; F41.1 Generalized anxiety disorder
CPT/HCPCS: 36415; 71046; 80048; 80053; 81001; 83880; 84484; 85025; 85027; 85610; 85730; 93005; 93306; 94640; 96374; 96375; 96376; 99285

== ENCOUNTER 2019-01-21 19:32 | Emergency (ER) | payer MEDICARE, OTHER ==
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
[2019-01-21 20:52] LABS: ALT 28 U/L (9-52); AST 21 U/L (14-36); African American GFR (CKD) >90 (>60 ml/min/1.73 sqM); Albumin 4.3 g/dL (3.5-5.0); Alkaline Phosphatase 138 U/L (38-126); Anion Gap 10 mmol/L; Basophils # (A) 0.1 k/uL (0-0.2); Basophils % (A) 0 %; Blood Urea Nitrogen 10 mg/dL (7-17); Calcium 9.5 mg/dL (8.4-10.2); Carbon Dioxide 25 mmol/L (22-30); Chloride 106 mmol/L (98-107); Eosinophils # (A) 0.2 k/uL (0-0.7); Eosinophils % (A) 1 %; Glucose 110 mg/dL (74-99); HCT 34.9 % (34.0-46.0); HGB 11.2 gm/dL (11.4-16.0); Lymphocytes # (A) 1.4 k/uL (1.0-4.8); Lymphocytes % (A) 13 %; MCH 25.2 pg (25.0-35.0); MCV 78.6 fL (80.0-100.0); Monocytes # (A) 0.6 k/uL (0-1.0); Monocytes % (A) 6 %; Neutrophils # (A) 8.1 k/uL (1.3-7.7); Neutrophils % (A) 78 %; Platelet Count 362 k/uL (150-450); Potassium 4.3 mmol/L (3.5-5.1); RBC 4.44 m/uL (3.80-5.40); RDW 15.7 % (11.5-15.5); Sodium 141 mmol/L (137-145); Total Bilirubin 0.5 mg/dL (0.2-1.3); WBC 10.3 k/uL (3.8-10.6)
[2019-01-21] MEDS ORDERED: LORazepam 2 MG/ML INJ IM STA (20:57)
[2019-01-21] MEDS ORDERED: MORPHINE SULFATE 4 MG/ML SYRINGE IM STA (20:57)
[2019-01-21] MEDS ORDERED: LIDOCAINE 5% PATCH TOPICAL STA (21:22)
--- NOTE | 2019-01-21 21:35 | XR ---
EXAMINATION TYPE: XR chest 2V DATE OF EXAM: 01/21/2019 COMPARISON: 12/23/2018 HISTORY: Short of breath TECHNIQUE: Frontal and lateral views of the chest are obtained. FINDINGS: There is no heart failure nor confluent pneumonic infiltrate. Costophrenic angles are santiago r. There are chest leads. IMPRESSION: No active cardiopulmonary disease. No change.
--- NOTE | 2019-01-21 21:37 | XR ---
EXAMINATION TYPE: XR thoracic spine 2V DATE OF EXAM: 01/21/2019 COMPARISON: NONE HISTORY: Back pain TECHNIQUE: 3 views FINDINGS: Vertebra have normal alignment. There is hypertrophic spurring of the endplates. I see no c ompression fracture. There is no thoracic paraspinal mass. There is hypertrophic moderate bridging os teophyte formation. IMPRESSION: Spondylotic changes. No fracture. No significant change compared to chest x-ray of 019.
[2019-01-21] MEDS ORDERED: HYDROmorphone 1 MG/ML 1 ML SYRINGE IM STA (22:12)
[2019-01-21 23:02] VITALS: BP 126/99; PULSE 87; RESP 18; TEMP 98.2
== END 2019-01-21 23:01 | disposition home or self-care (01) ==
LOC: EC 19:32
DX: S29.012A Strain of muscle and tendon of back wall of thorax, initial encounter (principal); I48.91 Unspecified atrial fibrillation; I50.9 Heart failure, unspecified; I25.2 Old myocardial infarction; M19.90 Unspecified osteoarthritis, unspecified site; J44.9 Chronic obstructive pulmonary disease, unspecified; E03.9 Hypothyroidism, unspecified; K58.9 Irritable bowel syndrome, unspecified; Z79.890 Hormone replacement therapy; Z53.29 Procedure and treatment not carried out because of patient's decision for other reasons; Z79.899 Other long term (current) drug therapy; Z88.5 Allergy status to narcotic agent; Z88.6 Allergy status to analgesic agent; Z91.041 Radiographic dye allergy status; Z88.8 Allergy status to other drugs, medicaments and biological substances; Z96.653 Presence of artificial knee joint, bilateral; Z96.642 Presence of left artificial hip joint; Z95.818 Presence of other cardiac implants and grafts; W01.0XXA Fall on same level from slipping, tripping and stumbling without subsequent striking against object, initial encounter
CPT/HCPCS: 36415; 93005; 83880; 80053; 84484; 85025; 72070; 71046; 99285; 96372 ×3; J2060; J2270; J1170; 96374

== ENCOUNTER 2019-01-22 13:15 | Emergency (ER) | payer MEDICARE, OTHER ==
[2019-01-22 13:20] VITALS: TEMP 98.1
[2019-01-22] MEDS ORDERED: MORPHINE SULFATE 4 MG/ML SYRINGE IVP STA ×2 (15:43→17:23)
[2019-01-22] MEDS ORDERED: ONDANSETRON 4 MG/2 ML VIAL IVP STA (15:44)
[2019-01-22 15:51] LABS: Basophils # (A) 0.1 k/uL (0-0.2); Basophils % (A) 0 %; Eosinophils # (A) 0.2 k/uL (0-0.7); Eosinophils % (A) 1 %; HCT 38.3 % (34.0-46.0); HGB 12.1 gm/dL (11.4-16.0); Lymphocytes % (A) 10 %; MCH 25.2 pg (25.0-35.0); MCHC 31.5 g/dL (31.0-37.0); MCV 80.1 fL (80.0-100.0); Mean Platelet Volume 6.8; Monocytes # (A) 0.3 k/uL (0-1.0); Monocytes % (A) 3 %; Neutrophils # (A) 9.3 k/uL (1.3-7.7); Neutrophils % (A) 85 %; Platelet Count 371 k/uL (150-450); RBC 4.78 m/uL (3.80-5.40); RDW 15.7 % (11.5-15.5)
[2019-01-22 16:06] LABS: ALT 24 U/L (9-52); AST 30 U/L (14-36); African American GFR (CKD) >90 (>60 ml/min/1.73 sqM); Albumin 4.7 g/dL (3.5-5.0); Alkaline Phosphatase 142 U/L (38-126); Anion Gap 13 mmol/L; Blood Urea Nitrogen 11 mg/dL (7-17); Calcium 9.9 mg/dL (8.4-10.2); Carbon Dioxide 23 mmol/L (22-30); Chloride 106 mmol/L (98-107); Glucose 113 mg/dL (74-99); Potassium 4.5 mmol/L (3.5-5.1); Sodium 142 mmol/L (137-145); Total Bilirubin 0.7 mg/dL (0.2-1.3); Total Protein 7.4 g/dL (6.3-8.2)
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
--- NOTE | 2019-01-22 16:08 | XR ---
EXAMINATION TYPE: XR chest 2V DATE OF EXAM: 01/22/2019 COMPARISON: 01/21/2019 HISTORY: Short of breath TECHNIQUE: Frontal and lateral views of the chest are obtained. FINDINGS: There is no heart failure nor confluent pneumonic infiltrate. Thoracic aorta is atheromato us. There is no pleural effusion. Bony thorax is intact. IMPRESSION: No active cardiopulmonary disease. No change.
[2019-01-22] MEDS ORDERED: FUROSEMIDE 10 MG/ML 4 ML VIAL IV STA (16:09)
[2019-01-22 16:11] LABS: INR 0.9 (<1.2); Partial Thromboplastin Time 22.1 sec (22.0-30.0); Prothrombin Time 9.9 sec (9.0-12.0)
[2019-01-22 17:28] VITALS: BP 151/88; PULSE 104; RESP 18
== END 2019-01-22 19:14 | disposition home or self-care (01) ==
LOC: EC 13:15
DX: R06.02 Shortness of breath (principal); G89.29 Other chronic pain; M54.9 Dorsalgia, unspecified; R79.1 Abnormal coagulation profile; I50.9 Heart failure, unspecified; I25.2 Old myocardial infarction; E03.9 Hypothyroidism, unspecified; J44.9 Chronic obstructive pulmonary disease, unspecified; Z79.890 Hormone replacement therapy; Z79.899 Other long term (current) drug therapy; Z91.041 Radiographic dye allergy status; Z88.6 Allergy status to analgesic agent; Z88.8 Allergy status to other drugs, medicaments and biological substances; Z87.440 Personal history of urinary (tract) infections; Z96.642 Presence of left artificial hip joint; Z95.818 Presence of other cardiac implants and grafts
CPT/HCPCS: 36415; 93005; 85379; 83880; 80053; 84484; 85025; 85610; 85730; 71046; 99285; 96374; 96375 ×2; 96376; J2270; J1940; J2405

== ENCOUNTER 2019-02-17 16:39 | Inpatient (IN) | payer MEDICARE, OTHER ==
[2019-02-17] MEDS ORDERED: MORPHINE SULFATE 4 MG/ML SYRINGE IM STA (18:29)
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
[2019-02-17] MEDS ORDERED: MORPHINE SULFATE 4 MG/ML SYRINGE IVP STA (19:36)
[2019-02-17] MEDS ORDERED: SODIUM CHLORIDE 0.9% 500 ML 500 ML IV ONE (19:36)
[2019-02-17] MEDS ORDERED: NALOXONE 0.4 MG/ML 1 ML VIAL IV PRN (20:04)
[2019-02-17] MEDS ORDERED: SODIUM CHLORIDE 0.9% 1,000 ML IV SCH (20:15)
[2019-02-17 20:53] LABS: Basophils % (A) 0 %; Eosinophils # (A) 0.6 k/uL (0-0.7); Eosinophils % (A) 6 %; HCT 34.4 % (34.0-46.0); HGB 11.2 gm/dL (11.4-16.0); Lymphocytes # (A) 1.8 k/uL (1.0-4.8); Lymphocytes % (A) 17 %; MCH 26.2 pg (25.0-35.0); MCHC 32.5 g/dL (31.0-37.0); MCV 80.6 fL (80.0-100.0); Mean Platelet Volume 6.4; Monocytes # (A) 0.4 k/uL (0-1.0); Monocytes % (A) 4 %; Neutrophils # (A) 7.2 k/uL (1.3-7.7); Neutrophils % (A) 71 %; Platelet Count 306 k/uL (150-450); RBC 4.26 m/uL (3.80-5.40); RDW 15.6 % (11.5-15.5); WBC 10.1 k/uL (3.8-10.6)
[2019-02-17 21:08] LABS: ALT 18 U/L (9-52); AST 16 U/L (14-36); African American GFR (CKD) >90 (>60 ml/min/1.73 sqM); Albumin 3.8 g/dL (3.5-5.0); Alkaline Phosphatase 104 U/L (38-126); Anion Gap 8 mmol/L; Blood Urea Nitrogen 11 mg/dL (7-17); Calcium 9.1 mg/dL (8.4-10.2); Carbon Dioxide 24 mmol/L (22-30); Chloride 107 mmol/L (98-107); Glucose 114 mg/dL (74-99); Potassium 4.3 mmol/L (3.5-5.1); Sodium 139 mmol/L (137-145); Total Bilirubin 0.4 mg/dL (0.2-1.3); Total Protein 6.3 g/dL (6.3-8.2)
[2019-02-18] MEDS ORDERED: ALBUTEROL NEBULIZED 2.5 MG/3 ML INHALATION PRN (00:08)
[2019-02-18] MEDS ORDERED: ACETAMINOPHEN TAB 325 MG TAB PO PRN (00:17)
[2019-02-18] MEDS: MORPHINE SULFATE 4 MG/ML SYRINGE IV PRN ×5 (00:50→22:06)
[2019-02-18] MEDS: MELATONIN 5 MG TABLET PO SCH ×2 (00:54→20:27)
[2019-02-18] MEDS: QUEtiapine 25 MG TAB PO SCH ×2 (03:25→20:27)
[2019-02-18] MEDS: LEVOTHYROXINE 50 MCG TAB PO SCH (05:46)
[2019-02-18 07:36] LABS: Amorphous Sediment,Urine Rare /hpf; Appearance,Urine Clear (Clear); Bacteria,Urine Few /hpf; Bilirubin,Urine Negative (Negative); Blood,Urine Trace (Negative); Color,Urine Yellow; Glucose,Urine (UA) Negative (Negative); Ketones,Urine Negative (Negative); Leukocyte Esterase,Urine Small (Negative); Mucus,Urine Few /hpf; Nitrite,Urine Positive (Negative); PH, Urine 5.5 (5.0-8.0); Protein,Urine Trace (Negative); RBC,Urine 1 /hpf (0-5); Specific Gravity,Urine 1.022 (1.001-1.035); Squamous Epithelial Cell,Urine 3 /hpf (0-4); Urobilinogen,Urine <2.0 mg/dL (<2.0); WBC,Urine 12 /hpf (0-5)
[2019-02-18] MEDS: PANTOPRAZOLE 40 MG TABLET PO SCH (08:42)
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
[2019-02-18] MEDS: HYDROcodone/APAP 10-325MG 1 EACH TAB PO PRN ×2 (13:57→20:27)
--- NOTE | 2019-02-18 15:49 | CT ---
EXAMINATION TYPE: CT thor lumbar spine wo con DATE OF EXAM: 02/18/2019 COMPARISON: None HISTORY: Back pain. Pt states she fell at the end of January CT DLP: 3212.[address] of the thoracic and lumbar spine was performed. Bone and soft tissue window settings a re submitted as well as coronal and sagittal reconstructions. There is no evidence for fracture of the thoracic or lumbar segments. There is curvature seen convex to the right. Moderate to severe multilevel degenerative disc space narrowing is seen throughout the thoracic spine. Ventral spondylosis seen. No evidence for central stenosis at this time. Severe degen erative change lower lumbar spine with vacuum disc seen. There is grade 1 anterolisthesis of L4 on L5 measuring 4 mm. Central stenosis is noted at this level. IMPRESSION: 1. No evidence for acute fracture of the thoracic or lumbar spine. 2. Multilevel degenerative disc disease and spondylosis. 3. Grade 1 anterolisthesis L4 and L5 with central stenosis noted.
[2019-02-19] MEDS: MORPHINE SULFATE 4 MG/ML SYRINGE IV PRN ×5 (03:23→19:31)
[2019-02-19] MEDS: HYDROcodone/APAP 10-325MG 1 EACH TAB PO PRN ×3 (06:03→17:51)
[2019-02-19] MEDS: LEVOTHYROXINE 50 MCG TAB PO SCH (06:05)
[2019-02-19] MEDS: PANTOPRAZOLE 40 MG TABLET PO SCH (07:17)
--- NOTE | 2019-02-19 12:09 | P.PN ---
Subjective From the records This 68-year-old female with a past medical history significant for chronic back pain and has multiple admissions in the past for back pain comes in with the same complaint. The patient says that she was discharged to rehab during the last admission and then she did good and rehab. She said that she was doing fine until last few days when she started having pain again that has been persistent and uncontrolled with [place]. She said that the pain is so bad that she cannot longer perform any daily activities of life. She otherwise does not complain of any chest pain racing heart, no cough no shortness breath, no abdominal pain, nausea and vomiting, or diarrhea constipation, noting numbness on in the extremities, no itch no rash. ER course-temperature was 97.9 pulse rate is respirations 18 blood pressure 136/77 satting 96% on room air. Labwork was initial WBC 10.1 hemoglobin 11.2 platelets 306 sodium 139 potassium 4.3 B1 11 creatinine 0.55 GFR more than 90 LFTs are normal. Patient was admitted to the hospitalist service for further evaluation and management and was put on pain medications Subjective: This is first time taking care of the patient 02/19/2019 This is a pleasant 68 years old female with past medical history of COPD, CHF with diastolic dysfunction, morbid obesity and obesity hypoventilation syndrome, chronic pain and pain syndrome and chronic back pain and history of fall and multiple, she presents this time with back pain secondary to fall. Patient states last time she's been discharged from the hospital she went to rehab which benefited her significantly, eventually she could lower her [place] 10/325 mg dose from 4 times a day to 2 times a day, while she kept functioning well when she is been discharged from rehab. However about 2 weeks ago she tripped and fell on her back and she got hurt at her back, with increasingly progressive pain and she is currently on oral morphine and other pain medication as needed. She denies Weakness in her legs or abnormal sensation or bowel incontinence or urinary incontinence. No saddle anesthesia. She states that she supposed to see Dr. Penn from orthopedic team as an outpatient as he saw her last time on 12/2016 at this hospital. Yesterday she had thoracic and lumbar spines CAT scan: No acute fracture, multilevel degenerative disc disease and spondylosis with central stenosis at L4 to L5. Also patient is complaining of from dysuria, her urinalysis on admission was suspicious for infection. Review of systems CONSTITUTIONAL: No fever, no malaise, no fatigue. HEENT: No recent visual problems or hearing problems. Denied any sore throat. CARDIOVASCULAR: No orthopnea, PND, no palpitations, no syncope. PULMONARY: No shortness of breath, no cough, no hemoptysis. GASTROINTESTINAL: No diarrhea, no nausea, no vomiting, no abdominal pain. Normoactive bowel sounds. NEUROLOGICAL: No headaches, no weakness, no numbness. HEMATOLOGICAL: Denies any bleeding or petechiae. GENITOURINARY: Denies any burning micturition, frequency, or urgency. MUSCULOSKELETAL/RHEUMATOLOGICAL: Denies any joint pain or swelling, ENDOCRINE: Denies any polyuria or polydipsia. Active Medications Generic Name Dose Route Start Last Admin Trade Name Freq PRN Reason Stop Dose Admin Acetaminophen 650 mg 02/18/19 00:17 Tylenol Tab PO Q6HR PRN Fever and/ or Pain Hydrocodone Bitart/Acetaminophen 1 each 02/18/19 13:08 02/19/19 11:55 [place] 10 PO 1 each Q6H PRN Administration Pain Albuterol Sulfate 2.5 mg 02/18/19 00:08 Ventolin Nebulized INHALATION RT-QID PRN Shortness Of Breath Famotidine 20 mg 02/19/19 21:00 Pepcid IV Q12HR [facility] Heparin Sodium (Porcine) 5,000 unit 02/19/19 21:00 Heparin SQ Q12HR [facility] Ceftriaxone Sodium 1 gm/ 50 mls @ 100 mls/hr 02/19/19 12:15 Sodium Chloride IVPB Q24HR [facility] Levothyroxine Sodium 150 mcg 02/18/19 06:30 02/19/19 06:05 Synthroid PO 150 mcg DAILY@0630 BRETT Administration Melatonin 5 mg 02/18/19 00:30 02/18/19 20:27 Melatonin PO 5 mg HS BRETT Administration Morphine Sulfate 4 mg 02/17/19 20:04 02/19/19 11:05 Morphine Sulfate (Inj) IV 4 mg Q4HR PRN Administration Severe Pain Naloxone HCl 0.2 mg 02/17/19 20:04 Narcan IV Q2M PRN Opioid Reversal Pantoprazole Sodium 40 mg 02/18/19 07:30 02/19/19 07:17 Protonix PO 40 mg DAILY@0730 BRETT Administration Quetiapine Fumarate 25 mg 02/18/19 00:15 02/18/19 20:27 Seroquel PO 25 mg HS BRETT Administration Objective - Vital Signs Vital signs: Vital Signs Temp 97.4 F L 02/19/19 04:44 Pulse 79 02/19/19 04:44 Resp 20 02/19/19 04:44 BP 120/73 02/19/19 04:44 Pulse Ox 96 02/19/19 04:44 Intake & Output 02/18/19 02/19/19 02/19/19 18:59 06:59 18:59 Other: Voiding Method Bedside Commode Bedside Commode Bedside Commode # Voids 4 1 # Bowel Movements 0 - Exam GENERAL: The patient is alert and oriented x3, not in any acute distress. Well developed, well nourished. HEENT: Pupils are round and equally reacting to light. EOMI. No scleral icterus. No conjunctival pallor. Normocephalic, atraumatic. No pharyngeal erythema. No thyromegaly. CARDIOVASCULAR: S1 and S2 present. No murmurs, rubs, or gallops. PULMONARY: Chest is clear to auscultation, no wheezing or crackles. ABDOMEN: Soft, nontender, nondistended, normoactive bowel sounds. No palpable organomegaly. MUSCULOSKELETAL: No joint swelling or deformity. EXTREMITIES: No cyanosis, clubbing, or pedal edema. NEUROLOGICAL: Gross neurological examination cranial nerves are grossly intact. No asymmetry and strength examination both upper and lower extremity. Sensation is intact bilaterally. SKIN: No rashes. - Labs CBC & Chem 7: 02/17/19 20:35 02/17/19 20:35 Assessment and Plan Assessment: Recurrent falls Acute and chronic back pain Multilevel degenerative disc disease and spondylolisthesis, with central canal stenosis at L4-5. Acute urinary tract infection, History of COPD, not an active issue Chronic diastolic CHF. Morbid obesity Obesity hypoventilation syndrome Chronic pain syndrome Multiple admissions to the hospital this is a pleasant 68 years old female who presents with back pain. Continue with pain management. Consult orthopedic team. Plan: This is a pleasant 68 years old female who presents with acute back pain secondary to fall. CT thoracic and lumbar spine was done and results as above, we'll consult orthopedic team was known to the patient from prior admission. Total The patient short course of steroids. Continue with antibiotics for UTI. F ollow-up urine culture. Labs and medication were reviewed.. Continue same treatment. Continue with symptomatic treatment. Resume home medication. Monitor lytes and vitals. DVT and GI prophylaxis. Further recommendations of the clinical course of the patient DVT prophylaxis: Subcutaneous heparin GI Prophylaxis: Pepcid PT/OT: Recommended subacute rehab Prognosis is guarded
[2019-02-19] MEDS: MELATONIN 5 MG TABLET PO SCH (21:22)
[2019-02-19] MEDS: HEPARIN SODIUM,PORCINE 5,000 UNIT/ML 1 ML VIAL SQ SCH (21:22)
[2019-02-19] MEDS: FAMOTIDINE 20 MG/2 ML VIAL IV SCH (21:22)
[2019-02-19] MEDS: QUEtiapine 25 MG TAB PO SCH (21:22)
[2019-02-20] MEDS: MORPHINE SULFATE 4 MG/ML SYRINGE IV PRN ×6 (00:31→21:08)
[2019-02-20] MEDS: DEXAMETHASONE 4 MG TAB PO SCH ×5 (00:32→20:36)
[2019-02-20] MEDS: HYDROcodone/APAP 10-325MG 1 EACH TAB PO PRN ×3 (05:56→18:07)
[2019-02-20] MEDS: LEVOTHYROXINE 50 MCG TAB PO SCH (05:56)
[2019-02-20] MEDS: HEPARIN SODIUM,PORCINE 5,000 UNIT/ML 1 ML VIAL SQ SCH ×2 (07:35→20:36)
[2019-02-20] MEDS: FAMOTIDINE 20 MG/2 ML VIAL IV SCH (07:35)
[2019-02-20] MEDS: PANTOPRAZOLE 40 MG TABLET PO SCH (07:36)
--- NOTE | 2019-02-20 08:54 | P.PN ---
Subjective From the records This 68-year-old female with a past medical history significant for chronic back pain and has multiple admissions in the past for back pain comes in with the same complaint. The patient says that she was discharged to rehab during the last admission and then she did good and rehab. She said that she was doing fine until last few days when she started having pain again that has been persistent and uncontrolled with Amistad. She said that the pain is so bad that she cannot longer perform any daily activities of life. She otherwise does not complain of any chest pain racing heart, no cough no shortness breath, no abdominal pain, nausea and vomiting, or diarrhea constipation, noting numbness on in the extremities, no itch no rash. ER course-temperature was 97.9 pulse rate is respirations 18 blood pressure 136/77 satting 96% on room air. Labwork was initial WBC 10.1 hemoglobin 11.2 platelets 306 sodium 139 potassium 4.3 B1 11 creatinine 0.55 GFR more than 90 LFTs are normal. Patient was admitted to the hospitalist service for further evaluation and management and was put on pain medications Subjective: This is first time taking care of the patient 02/19/2019 This is a pleasant 68 years old female with past medical history of COPD, CHF with diastolic dysfunction, morbid obesity and obesity hypoventilation syndrome, chronic pain and pain syndrome and chronic back pain and history of fall and multiple, she presents this time with back pain secondary to fall. Patient states last time she's been discharged from the hospital she went to rehab which benefited her significantly, eventually she could lower her Amistad 10/325 mg dose from 4 times a day to 2 times a day, while she kept functioning well when she is been discharged from rehab. However about 2 weeks ago she tripped and fell on her back and she got hurt at her back, with increasingly progressive pain and she is currently on oral morphine and other pain medication as needed. She denies Weakness in her legs or abnormal sensation or bowel incontinence or urinary incontinence. No saddle anesthesia. She states that she supposed to see Dr. Penn from orthopedic team as an outpatient as he saw her last time on 12/2016 at this hospital. Yesterday she had thoracic and lumbar spines CAT scan: No acute fracture, multilevel degenerative disc disease and spondylosis with central stenosis at L4 to L5. Also patient is complaining of from dysuria, her urinalysis on admission was suspicious for infection. 02/20/2019 Patient is awake and oriented. Clinically complaining of from the same problem of back pain, no worsening or improvement. She still have some difficulty moving due to her chronic leg weakness and recent trauma to her back with back pain. Her level of back pain is about 8/10 in severity. Still complaining of from UTI symptoms. Vitas is stable and patient is afebrile. Patient was started on ceftriaxone and dexamethasone. Labs ordered. Patient also asking for appointment for her itchy scaly feet soles. Patient might need ECF upon discharge for rehab. Patient admission was switched to inpatient status, discussed with staff. Orthopedic team have been consulted, however patient does not look interested in surgery. Objective - Vital Signs Vital signs: Vital Signs Temp 97.9 F 02/20/19 05:31 Pulse 77 02/20/19 05:31 Resp 18 02/20/19 05:31 BP 152/89 02/20/19 05:31 Pulse Ox 95 02/20/19 05:31 Intake & Output 02/19/19 02/20/19 02/20/19 18:59 06:59 18:59 Other: Voiding Method Bedside Commode Bedside Commode Bedside Commode # Voids 2 2 - Exam GENERAL: The patient is alert and oriented x3, not in any acute distress. Well developed, well nourished. HEENT: Pupils are round and equally reacting to light. EOMI. No scleral icterus. No conjunctival pallor. Normocephalic, atraumatic. No pharyngeal erythema. No thyromegaly. CARDIOVASCULAR: S1 and S2 present. No murmurs, rubs, or gallops. PULMONARY: Chest is clear to auscultation, no wheezing or crackles. ABDOMEN: Soft, nontender, nondistended, normoactive bowel sounds. No palpable organomegaly. MUSCULOSKELETAL: No joint swelling or deformity. EXTREMITIES: No cyanosis, clubbing, or pedal edema. -NEUROLOGICAL: Gross neurological examination cranial nerves are grossly intact. No asymmetry and strength examination both upper and lower extremity. Patient has difficulty ambulating, looks related to her chronic problems and pain in her back. Sensation is intact bilaterally. SKIN: No rashes. - Labs CBC & Chem 7: 02/17/19 20:35 02/17/19 20:35 Assessment and Plan Assessment: Recurrent falls Acute and chronic back pain Multilevel degenerative disc disease and spondylolisthesis, with central canal stenosis at L4-5. Acute urinary tract infection, History of COPD, not an active issue Chronic diastolic CHF. Morbid obesity Obesity hypoventilation syndrome Chronic pain syndrome Multiple admissions to the hospital this is a pleasant 68 years old female who presents with back pain. Continue with pain management. Consult orthopedic team. Plan: This is a pleasant 68 years old female who presents with acute back pain secondary to fall. CT thoracic and lumbar spine was done and results as above, we'll consult orthopedic team was known to the patient from prior admission. Total The patient short course of steroids. Continue with antibiotics for UTI. Follow-up urine culture. Labs and medication were reviewed.. Continue same treatment. Continue with symptomatic treatment. Resume home medication. Monitor lytes and vitals. DVT and GI prophylaxis. Further recommendations of the clinical course of the patient DVT prophylaxis: Subcutaneous heparin GI Prophylaxis: Pepcid PT/OT: Recommended subacute rehab Prognosis is guarded
[2019-02-20] MEDS: CLOTRIMAZOLE 1% CREAM 15 GM TUBE TOPICAL SCH ×2 (09:22→20:38)
[2019-02-20 09:54] LABS: Basophils % (A) 0 %; Eosinophils # (A) 0.1 k/uL (0-0.7); Eosinophils % (A) 1 %; HCT 36.4 % (34.0-46.0); HGB 11.4 gm/dL (11.4-16.0); Lymphocytes # (A) 0.6 k/uL (1.0-4.8); Lymphocytes % (A) 8 %; MCH 25.5 pg (25.0-35.0); MCHC 31.2 g/dL (31.0-37.0); MCV 81.8 fL (80.0-100.0); Mean Platelet Volume 6.4; Monocytes # (A) 0.2 k/uL (0-1.0); Monocytes % (A) 2 %; Neutrophils # (A) 6.2 k/uL (1.3-7.7); Neutrophils % (A) 88 %; Platelet Count 308 k/uL (150-450); RBC 4.46 m/uL (3.80-5.40); RDW 15.3 % (11.5-15.5); WBC 7.1 k/uL (3.8-10.6)
[2019-02-20 10:07] LABS: Calcium 9.4 mg/dL (8.4-10.2); Potassium 4.8 mmol/L (3.5-5.1)
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
[2019-02-20] MEDS: MELATONIN 5 MG TABLET PO SCH (20:35)
[2019-02-20] MEDS: QUEtiapine 25 MG TAB PO SCH (20:36)
[2019-02-21] MEDS: MORPHINE SULFATE 4 MG/ML SYRINGE IV PRN ×6 (01:09→21:32)
[2019-02-21] MEDS: HYDROcodone/APAP 10-325MG 1 EACH TAB PO PRN ×4 (02:11→20:00)
[2019-02-21] MEDS: LEVOTHYROXINE 50 MCG TAB PO SCH (05:43)
[2019-02-21] MEDS: HEPARIN SODIUM,PORCINE 5,000 UNIT/ML 1 ML VIAL SQ SCH ×2 (07:17→20:00)
[2019-02-21] MEDS: PANTOPRAZOLE 40 MG TABLET PO SCH (07:17)
[2019-02-21] MEDS: DEXAMETHASONE 4 MG TAB PO SCH ×4 (07:18→21:32)
[2019-02-21] MEDS: CLOTRIMAZOLE 1% CREAM 15 GM TUBE TOPICAL SCH ×2 (07:22→20:00)
--- NOTE | 2019-02-21 08:25 | P.PN ---
Subjective From the records This 68-year-old female with a past medical history significant for chronic back pain and has multiple admissions in the past for back pain comes in with the same complaint. The patient says that she was discharged to rehab during the last admission and then she did good and rehab. She said that she was doing fine until last few days when she started having pain again that has been persistent and uncontrolled with Hood. She said that the pain is so bad that she cannot longer perform any daily activities of life. She otherwise does not complain of any chest pain racing heart, no cough no shortness breath, no abdominal pain, nausea and vomiting, or diarrhea constipation, noting numbness on in the extremities, no itch no rash. ER course-temperature was 97.9 pulse rate is respirations 18 blood pressure 136/77 satting 96% on room air. Labwork was initial WBC 10.1 hemoglobin 11.2 platelets 306 sodium 139 potassium 4.3 B1 11 creatinine 0.55 GFR more than 90 LFTs are normal. Patient was admitted to the hospitalist service for further evaluation and management and was put on pain medications Subjective: 02/19/2019 This is a pleasant 68 years old female with past medical history of COPD, CHF with diastolic dysfunction, morbid obesity and obesity hypoventilation syndrome, chronic pain and pain syndrome and chronic back pain and history of fall and multiple, she presents this time with back pain secondary to fall. Patient states last time she's been discharged from the hospital she went to rehab which benefited her significantly, eventually she could lower her Hood 10/325 mg dose from 4 times a day to 2 times a day, while she kept functioning well when she is been discharged from rehab. However about 2 weeks ago she tripped and fell on her back and she got hurt at her back, with increasingly progressive pain and she is currently on oral morphine and other pain medication as needed. She denies Weakness in her legs or abnormal sensation or bowel incontinence or urinary incontinence. No saddle anesthesia. She states that she supposed to see Dr. Penn from orthopedic team as an outpatient as he saw her last time on 12/2016 at this hospital. Yesterday she had thoracic and lumbar spines CAT scan: No acute fracture, multilevel degenerative disc disease and spondylosis with central stenosis at L4 to L5. Also patient is complaining of from dysuria, her urinalysis on admission was suspicious for infection. 02/20/2019 Patient is awake and oriented. Clinically complaining of from the same problem of back pain, no worsening or improvement. She still have some difficulty moving due to her chronic leg weakness and recent trauma to her back with back pain. Her level of back pain is about 8/10 in severity. Still complaining of from UTI symptoms. Vitas is stable and patient is afebrile. Patient was started on ceftriaxone and dexamethasone. Labs ordered. Patient also asking for appointment for her itchy scaly feet soles. Patient might need ECF upon discharge for rehab. Patient admission was switched to inpatient status, discussed with staff. Orthopedic team have been consulted, however patient does not look interested in surgery. 02/21/2019 Patient feels slight improvement and she thinks her steroids pills are helping her. She agrees to continue with the same pain pills she is taking currently. She still complaining from dysuria. Urine culture still pending. Orthopedic input is appreciated. Physical therapy recommended subacute rehab. cylinder worker has been consulted. Patient asked to change her diet to regular diet rather than heart healthy diet. Patient currently on ceftriaxone. Objective - Vital Signs Vital signs: Vital Signs Temp 97.6 F 02/21/19 05:00 Pulse 78 02/21/19 05:00 Resp 18 02/21/19 05:00 BP 146/77 02/21/19 05:00 Pulse Ox 96 02/21/19 05:00 Intake & Output 02/20/19 02/21/19 02/21/19 18:59 06:59 18:59 Intake Total 200 700 Balance 200 700 Weight 176.674 kg Intake: Oral 200 700 Other: Voiding Method Bedside Commode Bedside Commode # Voids 2 3 - Exam GENERAL: The patient is alert and oriented x3, not in any acute distress. Well developed, well nourished. HEENT: Pupils are round and equally reacting to light. EOMI. No scleral icterus. No conjunctival pallor. Normocephalic, atraumatic. No pharyngeal erythema. No thyromegaly. CARDIOVASCULAR: S1 and S2 present. No murmurs, rubs, or gallops. PULMONARY: Chest is clear to auscultation, no wheezing or crackles. ABDOMEN: Soft, nontender, nondistended, normoactive bowel sounds. No palpable organomegaly. MUSCULOSKELETAL: No joint swelling or deformity. EXTREMITIES: No cyanosis, clubbing, or pedal edema. -NEUROLOGICAL: Gross neurological examination cranial nerves are grossly intact. No asymmetry and strength examination both upper and lower extremity. Patient has difficulty ambulating, looks related to her chronic problems and pain in her back. Sensation is intact bilaterally. SKIN: No rashes. - Labs CBC & Chem 7: 02/20/19 09:30 02/20/19 09:30 Labs: Abnormal Lab Results - Last 24 Hours (Table) 02/20/19 02/20/19 Range/Units 09:30 09:30 Lymphocytes # 0.6 L (1.0-4.8) k/uL Glucose 175 H (74-99) mg/dL Microbiology - Last 24 Hours (Table) 02/20/19 10:30 Urine Culture - Preliminary Urine,Voided Assessment and Plan Assessment: Recurrent falls Acute and chronic back pain Multilevel degenerative disc disease and spondylolisthesis, with central canal stenosis at L4-5. Acute urinary tract infection, History of COPD, not an active issue Chronic diastolic CHF. Morbid obesity Obesity hypoventilation syndrome Chronic pain syndrome Multiple admissions to the hospital this is a pleasant 68 years old female who presents with back pain. Continue with pain management. Consult orthopedic team. Plan: This is a pleasant 68 years old female who presents with acute back pain secondary to fall. CT thoracic and lumbar spine was done and results as above, we'll consult orthopedic team was known to the patient from prior admission. Total The patient short course of steroids. Continue with antibiotics for UTI. Follow-up urine culture. Labs and medication were reviewed.. Continue same treatment. Continue with symptomatic treatment. Resume home medication. Monitor lytes and vitals. DVT and GI prophylaxis. Further recommendations of the clinical course of the patient DVT prophylaxis: Subcutaneous heparin GI Prophylaxis: Pepcid PT/OT: Recommended subacute rehab Prognosis is guarded
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
[2019-02-21] MEDS ORDERED: ALPRAZolam 0.25 MG TAB PO STA (16:01)
[2019-02-21] MEDS: MELATONIN 5 MG TABLET PO SCH (20:00)
[2019-02-21] MEDS: QUEtiapine 25 MG TAB PO SCH (20:00)
[2019-02-22] MEDS: MORPHINE SULFATE 4 MG/ML SYRINGE IV PRN ×6 (01:25→21:56)
[2019-02-22] MEDS: HYDROcodone/APAP 10-325MG 1 EACH TAB PO PRN ×4 (03:49→22:30)
[2019-02-22] MEDS: LEVOTHYROXINE 50 MCG TAB PO SCH (05:39)
[2019-02-22] MEDS: DEXAMETHASONE 4 MG TAB PO SCH ×4 (08:24→19:58)
[2019-02-22] MEDS: PANTOPRAZOLE 40 MG TABLET PO SCH (08:24)
[2019-02-22] MEDS: HEPARIN SODIUM,PORCINE 5,000 UNIT/ML 1 ML VIAL SQ SCH ×2 (08:24→19:58)
[2019-02-22] MEDS: CLOTRIMAZOLE 1% CREAM 15 GM TUBE TOPICAL SCH ×2 (08:24→19:58)
--- NOTE | 2019-02-22 08:28 | P.PN ---
Subjective From the records This 68-year-old female with a past medical history significant for chronic back pain and has multiple admissions in the past for back pain comes in with the same complaint. The patient says that she was discharged to rehab during the last admission and then she did good and rehab. She said that she was doing fine until last few days when she started having pain again that has been persistent and uncontrolled with [place]. She said that the pain is so bad that she cannot longer perform any daily activities of life. She otherwise does not complain of any chest pain racing heart, no cough no shortness breath, no abdominal pain, nausea and vomiting, or diarrhea constipation, noting numbness on in the extremities, no itch no rash. ER course-temperature was 97.9 pulse rate is respirations 18 blood pressure 136/77 satting 96% on room air. Labwork was initial WBC 10.1 hemoglobin 11.2 platelets 306 sodium 139 potassium 4.3 B1 11 creatinine 0.55 GFR more than 90 LFTs are normal. Patient was admitted to the hospitalist service for further evaluation and management and was put on pain medications Subjective: 02/19/2019 This is a pleasant 68 years old female with past medical history of COPD, CHF with diastolic dysfunction, morbid obesity and obesity hypoventilation syndrome, chronic pain and pain syndrome and chronic back pain and history of fall and multiple, she presents this time with back pain secondary to fall. Patient states last time she's been discharged from the hospital she went to rehab which benefited her significantly, eventually she could lower her [place] 10/325 mg dose from 4 times a day to 2 times a day, while she kept functioning well when she is been discharged from rehab. However about 2 weeks ago she tripped and fell on her back and she got hurt at her back, with increasingly progressive pain and she is currently on oral morphine and other pain medication as needed. She denies Weakness in her legs or abnormal sensation or bowel incontinence or urinary incontinence. No saddle anesthesia. She states that she supposed to see Dr. Penn from orthopedic team as an outpatient as he saw her last time on 12/2016 at this hospital. Yesterday she had thoracic and lumbar spines CAT scan: No acute fracture, multilevel degenerative disc disease and spondylosis with central stenosis at L4 to L5. Also patient is complaining of from dysuria, her urinalysis on admission was suspicious for infection. 02/20/2019 Patient is awake and oriented. Clinically complaining of from the same problem of back pain, no worsening or improvement. She still have some difficulty moving due to her chronic leg weakness and recent trauma to her back with back pain. Her level of back pain is about 8/10 in severity. Still complaining of from UTI symptoms. Vitas is stable and patient is afebrile. Patient was started on ceftriaxone and dexamethasone. Labs ordered. Patient also asking for appointment for her itchy scaly feet soles. Patient might need ECF upon discharge for rehab. Patient admission was switched to inpatient status, discussed with staff. Orthopedic team have been consulted, however patient does not look interested in surgery. 02/21/2019 Patient feels slight improvement and she thinks her steroids pills are helping her. She agrees to continue with the same pain pills she is taking currently. She still complaining from dysuria. Urine culture still pending. Orthopedic input is appreciated. Physical therapy recommended subacute rehab. chemical worker has been consulted. Patient asked to change her diet to regular diet rather than heart healthy diet. Patient currently on ceftriaxone. 02/22/2019 Patient states that her back pain is still improving and the pain level today is 7-8/10 compared to 10/10 on admission. She does not complain much of her leg weakness although it was limited by her pain but the she thinks she is improving. However she still have dysuria and urine culture came back positive for enterococcus. Patient already is on ceftriaxone however consult has been placed for infectious disease for help. Patient is eager to go to rehab as she benefited from its significantly last time, social services manager on the case. Objective - Vital Signs Vital signs: Vital Signs Temp 98.3 F 02/22/19 05:00 Pulse 72 02/22/19 05:00 Resp 18 02/22/19 05:00 BP 147/87 02/22/19 05:00 Pulse Ox 92 L 02/22/19 05:00 Intake & Output 02/21/19 02/22/19 02/22/19 18:59 06:59 18:59 Intake Total 700 240 Balance 700 240 Weight 176.901 kg Intake: Oral 700 240 Other: Voiding Method Bedside Commode # Voids 4 3 # Bowel Movements 0 - Exam GENERAL: The patient is alert and oriented x3, not in any acute distress. Well developed, well nourished. HEENT: Pupils are round and equally reacting to light. EOMI. No scleral icterus. No conjunctival pallor. Normocephalic, atraumatic. No pharyngeal erythema. No thyromegaly. CARDIOVASCULAR: S1 and S2 present. No murmurs, rubs, or gallops. PULMONARY: Chest is clear to auscultation, no wheezing or crackles. ABDOMEN: Soft, nontender, nondistended, normoactive bowel sounds. No palpable organomegaly. MUSCULOSKELETAL: No joint swelling or deformity. EXTREMITIES: No cyanosis, clubbing, or pedal edema. -NEUROLOGICAL: Gross neurological examination cranial nerves are grossly intact. No asymmetry and strength examination both upper and lower extremity. Patient has difficulty ambulating, looks related to her chronic problems and pain in her back. Sensation is intact bilaterally. SKIN: No rashes. - Labs CBC & Chem 7: 02/20/19 09:30 02/20/19 09:30 Labs: Microbiology - Last 24 Hours (Table) 02/20/19 10:30 Urine Culture - Preliminary Urine,Voided Group D Enterococcus Assessment and Plan Assessment: Recurrent falls Acute and chronic back pain. Orthopedic team consulted. Medical management Multilevel degenerative disc disease and spondylolisthesis, with central canal stenosis at L4-5. Acute urinary tract infection, with enterococcus in the urine culture History of COPD, not an active issue Chronic diastolic CHF. Morbid obesity Obesity hypoventilation syndrome Chronic pain syndrome Multiple admissions to the hospital this is a pleasant 68 years old female who presents with back pain. Continue with pain management. Consult orthopedic team. Plan: This is a pleasant 68 years old female who presents with acute back pain secondary to fall. CT thoracic and lumbar spine was done and results as above, orthopedic consult is appreciated, they recommended medical management.. Total The patient short course of steroids, as patient thinks she benefits from it. Continue with antibiotics for UTI and consult ID for enterococcus in UC. Follow-up urine culture. Labs and medication were reviewed.. Continue same treatment. Continue with symptomatic treatment. Resume home medication. Monitor lytes and vitals. DVT and GI prophylaxis. Further recommendations of the clinical course of the patient DVT prophylaxis: Subcutaneous heparin GI Prophylaxis: Pepcid PT/OT: Recommended subacute rehab Prognosis is guarded
[2019-02-22] MEDS: LORazepam 0.5 MG TAB PO PRN (16:20)
[2019-02-22] MEDS: AMPICILLIN-SULBACTAM 1.5 GM in SODIUM CHLORIDE 0.9% 50 ML IVPB SCH ×2 (17:14→23:32)
[2019-02-22] MEDS: MELATONIN 5 MG TABLET PO SCH (19:58)
[2019-02-22] MEDS: QUEtiapine 25 MG TAB PO SCH (19:58)
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
[2019-02-23] MEDS: MORPHINE SULFATE 4 MG/ML SYRINGE IV PRN ×5 (02:31→18:06)
[2019-02-23] MEDS: HYDROcodone/APAP 10-325MG 1 EACH TAB PO PRN ×3 (04:26→16:30)
[2019-02-23] MEDS: AMPICILLIN-SULBACTAM 1.5 GM in SODIUM CHLORIDE 0.9% 50 ML IVPB SCH ×3 (06:17→18:06)
[2019-02-23] MEDS: LEVOTHYROXINE 50 MCG TAB PO SCH (06:17)
[2019-02-23] MEDS: DEXAMETHASONE 4 MG TAB PO SCH ×3 (07:15→18:05)
[2019-02-23] MEDS: PANTOPRAZOLE 40 MG TABLET PO SCH (07:15)
[2019-02-23] MEDS: CLOTRIMAZOLE 1% CREAM 15 GM TUBE TOPICAL SCH ×2 (07:15→20:49)
[2019-02-23] MEDS: HEPARIN SODIUM,PORCINE 5,000 UNIT/ML 1 ML VIAL SQ SCH ×2 (07:15→20:49)
--- NOTE | 2019-02-23 07:20 | P.PN ---
Subjective From the records This 68-year-old female with a past medical history significant for chronic back pain and has multiple admissions in the past for back pain comes in with the same complaint. The patient says that she was discharged to rehab during the last admission and then she did good and rehab. She said that she was doing fine until last few days when she started having pain again that has been persistent and uncontrolled with [place]. She said that the pain is so bad that she cannot longer perform any daily activities of life. She otherwise does not complain of any chest pain racing heart, no cough no shortness breath, no abdominal pain, nausea and vomiting, or diarrhea constipation, noting numbness on in the extremities, no itch no rash. ER course-temperature was 97.9 pulse rate is respirations 18 blood pressure 136/77 satting 96% on room air. Labwork was initial WBC 10.1 hemoglobin 11.2 platelets 306 sodium 139 potassium 4.3 B1 11 creatinine 0.55 GFR more than 90 LFTs are normal. Patient was admitted to the hospitalist service for further evaluation and management and was put on pain medications Subjective: 02/19/2019 This is a pleasant 68 years old female with past medical history of COPD, CHF with diastolic dysfunction, morbid obesity and obesity hypoventilation syndrome, chronic pain and pain syndrome and chronic back pain and history of fall and multiple, she presents this time with back pain secondary to fall. Patient states last time she's been discharged from the hospital she went to rehab which benefited her significantly, eventually she could lower her [place] 10/325 mg dose from 4 times a day to 2 times a day, while she kept functioning well when she is been discharged from rehab. However about 2 weeks ago she tripped and fell on her back and she got hurt at her back, with increasingly progressive pain and she is currently on oral morphine and other pain medication as needed. She denies Weakness in her legs or abnormal sensation or bowel incontinence or urinary incontinence. No saddle anesthesia. She states that she supposed to see Dr. Penn from orthopedic team as an outpatient as he saw her last time on 12/2016 at this hospital. Yesterday she had thoracic and lumbar spines CAT scan: No acute fracture, multilevel degenerative disc disease and spondylosis with central stenosis at L4 to L5. Also patient is complaining of from dysuria, her urinalysis on admission was suspicious for infection. 02/20/2019 Patient is awake and oriented. Clinically complaining of from the same problem of back pain, no worsening or improvement. She still have some difficulty moving due to her chronic leg weakness and recent trauma to her back with back pain. Her level of back pain is about 8/10 in severity. Still complaining of from UTI symptoms. Vitas is stable and patient is afebrile. Patient was started on ceftriaxone and dexamethasone. Labs ordered. Patient also asking for appointment for her itchy scaly feet soles. Patient might need ECF upon discharge for rehab. Patient admission was switched to inpatient status, discussed with staff. Orthopedic team have been consulted, however patient does not look interested in surgery. 02/21/2019 Patient feels slight improvement and she thinks her steroids pills are helping her. She agrees to continue with the same pain pills she is taking currently. She still complaining from dysuria. Urine culture still pending. Orthopedic input is appreciated. Physical therapy recommended subacute rehab. tradeshow worker has been consulted. Patient asked to change her diet to regular diet rather than heart healthy diet. Patient currently on ceftriaxone. 02/22/2019 Patient states that her back pain is still improving and the pain level today is 7-8/10 compared to 10/10 on admission. She does not complain much of her leg weakness although it was limited by her pain but the she thinks she is improving. However she still have dysuria and urine culture came back positive for enterococcus. Patient already is on ceftriaxone however consult has been placed for infectious disease for help. Patient is eager to go to rehab as she benefited from its significantly last time, protective services social worker on the case. 02/22/2019 Patient clinically looks much difference than the last couple days, her back pain is isn't down slightly. Patient will need physical therapy after discharge from the hospital to help her with strengthening exercises. Patient has enterococcus UTI. Infectious disease consult is appreciated, patient was starte d on Unasyn and she will need IV antibiotics for 2 more days. Also repeat urinalysis urine culture. Start normal saline at 75 L/h. Objective - Vital Signs Vital signs: Vital Signs Temp 97.4 F L 02/23/19 04:30 Pulse 73 02/23/19 04:30 Resp 20 02/23/19 04:30 BP 154/80 02/23/19 04:30 Pulse Ox 96 02/23/19 04:30 Intake & Output 02/22/19 02/23/19 02/23/19 18:59 06:59 18:59 Intake Total 770 1500 Balance 770 1500 Weight 158.939 kg Intake: IV 50 cefTRIAXone 1 gm In 50 Sodium Chloride 0.9% 50 ml @ 100 mls/hr IVPB Q24HR BRETT Rx#:[id number] Oral 720 1500 Other: # Voids 3 - Exam GENERAL: The patient is alert and oriented x3, not in any acute distress. Well developed, well nourished. HEENT: Pupils are round and equally reacting to light. EOMI. No scleral icterus. No conjunctival pallor. Normocephalic, atraumatic. No pharyngeal erythema. No thyromegaly. CARDIOVASCULAR: S1 and S2 present. No murmurs, rubs, or gallops. PULMONARY: Chest is clear to auscultation, no wheezing or crackles. ABDOMEN: Soft, nontender, nondistended, normoactive bowel sounds. No palpable organomegaly. MUSCULOSKELETAL: No joint swelling or deformity. EXTREMITIES: No cyanosis, clubbing, or pedal edema. -NEUROLOGICAL: Gross neurological examination cranial nerves are grossly intact. No asymmetry and strength examination both upper and lower extremity. Patient has difficulty ambulating, looks related to her chronic problems and pain in her back. Sensation is intact bilaterally. SKIN: No rashes. - Labs CBC & Chem 7: 02/20/19 09:30 02/20/19 09:30 Labs: Microbiology - Last 24 Hours (Table) 02/20/19 10:30 Urine Culture - Final Urine,Voided Enterococcus faecalis Assessment and Plan Assessment: Recurrent falls Acute and chronic back pain. Orthopedic team consulted. Medical management Multilevel degenerative disc disease and spondylolisthesis, with central canal stenosis at L4-5. Acute urinary tract infection, with enterococcus in the urine culture History of COPD, not an active issue Chronic diastolic CHF. Morbid obesity Obesity hypoventilation syndrome Chronic pain syndrome Multiple admissions to the hospital this is a pleasant 68 years old female who presents with back pain. Continue with pain management. Consult orthopedic team. Plan: This is a pleasant 68 years old female who presents with acute back pain secondary to fall. CT thoracic and lumbar spine was done and results as above, orthopedic consult is appreciated, they recommended medical management.The patient is on short course of steroids, as patient thinks she benefits from it. Continue with antibiotics for UTI for enterococcus in UC. ID team input is appreciated. Continue with Unasyn while in-house. Repeat UA and urine culture.. Labs and medication were reviewed.. Continue same treatment. Continue with symptomatic treatment. Resume home medication. Monitor lytes and vitals. DVT and GI prophylaxis. Further recommendations of the clinical course of the patient DVT prophylaxis: Subcutaneous heparin GI Prophylaxis: Pepcid PT/OT: Recommended subacute rehab Prognosis is guarded
[2019-02-23] MEDS: SODIUM CHLORIDE 0.9% 1,000 ML IV SCH ×2 (07:45→12:08)
[2019-02-23 08:44] LABS: Appearance,Urine Clear (Clear); Bilirubin,Urine Negative (Negative); Blood,Urine Negative (Negative); Color,Urine Yellow; Glucose,Urine (UA) Negative (Negative); Ketones,Urine Negative (Negative); Leukocyte Esterase,Urine Negative (Negative); Nitrite,Urine Negative (Negative); PH, Urine 5.5 (5.0-8.0); Protein,Urine Negative (Negative); Urobilinogen,Urine <2.0 mg/dL (<2.0)
[2019-02-23] MEDS: LORazepam 0.5 MG TAB PO PRN (15:01)
--- NOTE | 2019-02-23 16:49 | PN ---
PROGRESS NOTE DATE OF SERVICE: 02/23/2019 REASON FOR FOLLOWUP: Enterococcus urinary tract infection. INTERVAL HISTORY: The patient is currently afebrile. The patient has been feeling better, breathing comfortably. Slight difficulties because of her back pain issue. No nausea, vomiting, abdominal pain or diarrhea. PHYSICAL EXAMINATION: Blood pressure 158/82 with a pulse of 88, temperature 98.3. She is 96% on room air. General description is an elderly female lying in bed in no distress. RESPIRATORY SYSTEM: Unlabored breathing. Clear to auscultation anteriorly. HEART: S1, S2. Regular rate and rhythm. ABDOMEN: Soft. No tenderness. LABS: The patient did have a repeat UA that is essentially negative. DIAGNOSTIC IMPRESSION AND PLAN: Patient with a positive urine culture with Enterococcus faecalis, possible mild cystitis, adequately treated. The patient did have significant urinary symptoms and the UA is negative. Unasyn can be safely discontinued. MMODL / IJN: [id number] /
[2019-02-23] MEDS: MELATONIN 5 MG TABLET PO SCH (20:49)
[2019-02-23] MEDS: QUEtiapine 25 MG TAB PO SCH (20:49)
[2019-02-23 22:20] VITALS: RESP 20
[2019-02-24] MEDS: DEXAMETHASONE 4 MG TAB PO SCH ×2 (00:58→08:18)
[2019-02-24] MEDS: MORPHINE SULFATE 4 MG/ML SYRINGE IV PRN ×4 (00:58→12:35)
[2019-02-24] MEDS: HYDROcodone/APAP 10-325MG 1 EACH TAB PO PRN ×3 (00:58→14:31)
[2019-02-24] MEDS: AMPICILLIN-SULBACTAM 1.5 GM in SODIUM CHLORIDE 0.9% 50 ML IVPB SCH ×3 (00:58→11:08)
[2019-02-24] MEDS: LEVOTHYROXINE 50 MCG TAB PO SCH (05:21)
[2019-02-24 06:07] VITALS: BP 144/80; PULSE 76; TEMP 98.9
--- NOTE | 2019-02-24 07:56 | P.PN ---
Subjective From the records This 68-year-old female with a past medical history significant for chronic back pain and has multiple admissions in the past for back pain comes in with the same complaint. The patient says that she was discharged to rehab during the last admission and then she did good and rehab. She said that she was doing fine until last few days when she started having pain again that has been persistent and uncontrolled with Danube. She said that the pain is so bad that she cannot longer perform any daily activities of life. She otherwise does not complain of any chest pain racing heart, no cough no shortness breath, no abdominal pain, nausea and vomiting, or diarrhea constipation, noting numbness on in the extremities, no itch no rash. ER course-temperature was 97.9 pulse rate is respirations 18 blood pressure 136/77 satting 96% on room air. Labwork was initial WBC 10.1 hemoglobin 11.2 platelets 306 sodium 139 potassium 4.3 B1 11 creatinine 0.55 GFR more than 90 LFTs are normal. Patient was admitted to the hospitalist service for further evaluation and management and was put on pain medications Subjective: 02/19/2019 This is a pleasant 68 years old female with past medical history of COPD, CHF with diastolic dysfunction, morbid obesity and obesity hypoventilation syndrome, chronic pain and pain syndrome and chronic back pain and history of fall and multiple, she presents this time with back pain secondary to fall. Patient states last time she's been discharged from the hospital she went to rehab which benefited her significantly, eventually she could lower her Danube 10/325 mg dose from 4 times a day to 2 times a day, while she kept functioning well when she is been discharged from rehab. However about 2 weeks ago she tripped and fell on her back and she got hurt at her back, with increasingly progressive pain and she is currently on oral morphine and other pain medication as needed. She denies Weakness in her legs or abnormal sensation or bowel incontinence or urinary incontinence. No saddle anesthesia. She states that she supposed to see Dr. Penn from orthopedic team as an outpatient as he saw her last time on 12/2016 at this hospital. Yesterday she had thoracic and lumbar spines CAT scan: No acute fracture, multilevel degenerative disc disease and spondylosis with central stenosis at L4 to L5. Also patient is complaining of from dysuria, her urinalysis on admission was suspicious for infection. 02/20/2019 Patient is awake and oriented. Clinically complaining of from the same problem of back pain, no worsening or improvement. She still have some difficulty moving due to her chronic leg weakness and recent trauma to her back with back pain. Her level of back pain is about 8/10 in severity. Still complaining of from UTI symptoms. Vitas is stable and patient is afebrile. Patient was started on ceftriaxone and dexamethasone. Labs ordered. Patient also asking for appointment for her itchy scaly feet soles. Patient might need ECF upon discharge for rehab. Patient admission was switched to inpatient status, discussed with staff. Orthopedic team have been consulted, however patient does not look interested in surgery. 02/21/2019 Patient feels slight improvement and she thinks her steroids pills are helping her. She agrees to continue with the same pain pills she is taking currently. She still complaining from dysuria. Urine culture still pending. Orthopedic input is appreciated. Physical therapy recommended subacute rehab. adoption worker has been consulted. Patient asked to change her diet to regular diet rather than heart healthy diet. Patient currently on ceftriaxone. 02/22/2019 Patient states that her back pain is still improving and the pain level today is 7-8/10 compared to 10/10 on admission. She does not complain much of her leg weakness although it was limited by her pain but the she thinks she is improving. However she still have dysuria and urine culture came back positive for enterococcus. Patient already is on ceftriaxone however consult has been placed for infectious disease for help. Patient is eager to go to rehab as she benefited from its significantly last time, social work therapist on the case. 02/22/2019 Patient clinically looks much difference than the last couple days, her back pain is isn't down slightly. Patient will need physical therapy after discharge from the hospital to help her with strengthening exercises. Patient has enterococcus UTI. Infectious disease consult is appreciated, patient was starte d on Unasyn and she will need IV antibiotics for 2 more days. Also repeat urinalysis urine culture. Start normal saline at 75 L/h. 02/23/2019 patient is awake, she still complaining of from ongoing low back pain which is going to be treated conservatively. Pain-free much is controlled with pain pills. Patient is afebrile and vital signs stable. Infectious disease input is appreciated. It looks like patient does not need more antibiotics as her repeat urine analysis is negative and she is been adequately treated with antibiotics. No diarrhea. Patient is medically stable for discharge today however patient wanted to go to rehab but she was not approved by her insurance company and I discussed with the patient today she does not want to pay out of pocket. She agrees for home with home care however states that her son is not available today to pick her up or to meet her at home so she wants to leave tomorrow morning. Probably will discharge the patient and Danube 10-325 mg, which patient used to take before but that higher dose. Patient is medically stable for discharge pending placement Objective - Vital Signs Vital signs: Vital Signs Temp 98.9 F 02/24/19 04:35 Pulse 76 02/24/19 04:35 Resp 20 02/24/19 04:35 BP 144/80 02/24/19 04:35 Pulse Ox 95 02/24/19 04:35 Intake & Output 02/23/19 02/24/19 02/24/19 18:59 06:59 18:59 Intake Total 480 1700 Balance 480 1700 Intake: Oral 480 1700 Other: Voiding Method Bedside Commode # Voids 3 3 # Bowel Movements 1 - Exam GENERAL: The patient is alert and oriented x3, not in any acute distress. Well developed, well nourished. HEENT: Pupils are round and equally reacting to light. EOMI. No scleral icterus. No conjunctival pallor. Normocephalic, atraumatic. No pharyngeal erythema. No thyromegaly. CARDIOVASCULAR: S1 and S2 present. No murmurs, rubs, or gallops. PULMONARY: Chest is clear to auscultation, no wheezing or crackles. ABDOMEN: Soft, nontender, nondistended, normoactive bowel sounds. No palpable organomegaly. MUSCULOSKELETAL: No joint swelling or deformity. EXTREMITIES: No cyanosis, clubbing, or pedal edema. -NEUROLOGICAL: Gross neurological examination cranial nerves are grossly intact. No asymmetry and strength examination both upper and lower extremity. Patient has difficulty ambulating, looks related to her chronic problems and pain in her back. Sensation is intact bilaterally. SKIN: No rashes. - Labs CBC & Chem 7: 02/20/19 09:30 02/20/19 09:30 Assessment and Plan Assessment: Recurrent falls. Acute and chronic back pain. Orthopedic team consulted. Medical management Multilevel degenerative disc disease and spondylolisthesis, with central canal stenosis at L4-5. Acute urinary tract infection, with enterococcus in the urine culture. Adequately treated and repeat UA is negative History of COPD, not an active issue Chronic diastolic CHF. Morbid obesity Obesity hypoventilation syndrome Chronic pain syndrome Multiple admissions to the hospital this is a pleasant 68 years old female who presents with back pain. Continue with pain management. Consult orthopedic team. Plan: This is a pleasant 68 years old female who presents with acute back pain secondary to fall. CT thoracic and lumbar spine was done and results as above, orthopedic consult is appreciated, they recommended medical management.The patient is on short course of steroids which we started to taper it off, as p abbey thinks she benefits from it. Discontinue antibiotics for UTI for enterococcus as patient is adequately treated. ID team input is appreciated. . Labs and medication were reviewed.. Continue same treatment. Continue with symptomatic treatment. Resume home medication. Monitor lytes and vitals. DVT and GI prophylaxis. Further recommendations of the clinical course of the patient DVT prophylaxis: Subcutaneous heparin GI Prophylaxis: Pepcid PT/OT: Recommended subacute rehab. However her medical insurance company declined her case, patient is not willing to pay out of pocket. The other option is going to be home with home health care. Patient is medically stable for discharge however her son is not available to meet her in the house today as per patient, patient status she is willing to go tomorrow morning. Long-term Prognosis is guarded
[2019-02-24] MEDS: PANTOPRAZOLE 40 MG TABLET PO SCH (08:18)
[2019-02-24] MEDS: HEPARIN SODIUM,PORCINE 5,000 UNIT/ML 1 ML VIAL SQ SCH (08:18)
[2019-02-24] MEDS: CLOTRIMAZOLE 1% CREAM 15 GM TUBE TOPICAL SCH (09:30)
[2019-02-24] MEDS ORDERED: ALPRAZolam 0.5 MG TAB PO STA (14:37)
--- NOTE | 2019-02-24 20:29 | PN ---
PROGRESS NOTE DATE OF SERVICE: 02/24/2019. REASON FOR FOLLOW UP: Enterococcus urinary tract infection. INTERVAL HISTORY: The patient was seen on rounds this morning. The patient has been afebrile. She is feeling better. Breathing comfortably. Still complaining of feeling weak and tired and back pain and urinary symptoms seems to have improved. PHYSICAL EXAMINATION: Blood pressure is 144/80 with a pulse of 73, temperature 98.9. She is 95% on room air. General description is an elderly female lying in bed in no distress. Respiratory system: Unlabored breathing. Clear to auscultation anteriorly. Heart is S1, S2. Regular rate and rhythm. ABDOMEN: Soft. No tenderness. LABS: The patient did have a repeat UA yesterday which was negative. DIAGNOSTIC IMPRESSION AND PLAN: Patient with Enterococcus urinary tract infection, possible cystitis, underlying infection has been adequately treated. Followup urine culture has been negative. No need for antibiotic on discharge. MMODL / IJN: [id number] /
--- NOTE | 2019-02-26 00:45 | P.DS ---
Providers Date of admission: 02/20/19 12:22 Attending physician: Carine Miller Consults: 02/21/19 21:41 Consult Physician Routine Consulting Provider: Caprice Stiles Consult Reason/Comments: enterococcus in the urine Do you want consulting provider notified?: Yes [facility] Course: date of service: 02/24/2019 Diagnoses: Recurrent falls. Acute and chronic back pain. Orthopedic team consulted. Medical management Multilevel degenerative disc disease and spondylolisthesis, with central canal stenosis at L4-5. Acute urinary tract infection, with enterococcus in the urine culture. Adequately treated and repeat UA is negative History of COPD, not an active issue Chronic diastolic CHF. Morbid obesity Obesity hypoventilation syndrome Chronic pain syndrome Multiple admissions to the hospital this is a pleasant 68 years old female who presents with back pain. Continue with pain management. Consult orthopedic team. Hospital course: This is a pleasant 68 years old female with past medical history of COPD, CHF with diastolic dysfunction, morbid obesity and obesity hypoventilation syndrome, chronic pain and pain syndrome and chronic back pain and history of multiple fall, she presents this time with back pain secondary to fall about 2 week prior to presentation. Patient states last time she's been discharged from the hospital she went to rehab which benefited her significantly, eventually she could lower her [place] 10/325 mg dose from 4 times a day to 2 times a day, while she kept functioning well when she is been discharged from rehab. However about 2 weeks prior she tripped and fell on her back and she got hurt at her back, with increasingly progressive pain, pt has no new focal neurological deficit, she is been evaluated by orthopedic team and recommended to continue with medical management. pt is treated with oral dexamethasone which is tapered off upon discharge. pt also has Enterococcus UTI which is adequately treated while been followed by ID team . repeat UA is negative with her urinary symptoms are resolved upon discharge as well. no need for antibiotic upon discharge. physical therapy recommended subacute rehab , however she has already used all her days and her insurance company rejected authorization and pt was not willing to pay out of her pocket so she is been discharged with [facility]. she wants to use her Albion she has at home to control her pain. Pt was instructed about the problems and management plan and Pt verbalized understanding and acceptance Pt is found stable and can be discharged to the community but needs follow up as outpt Pt instructed to follow up with her PCP in one week and she agrees. (see exam from same day progress note) Patient Condition at Discharge: Stable Plan - Discharge Summary New Discharge Prescriptions: New Dexamethasone [Hexadrol] 4 mg PO TID #9 tab HYDROcodone/APAP 10-325MG [[place] 10-325] 1 each PO Q6H PRN tab PRN Reason: Pain Continue Omeprazole [PriLOSEC] 20 mg PO AC-BID Furosemide [Lasix] 40 mg PO DAILY PRN PRN Reason: Edema Levothyroxine Sodium [Synthroid] 150 mcg PO DAILY Albuterol Nebulized [Ventolin Nebulized] 2.5 mg INHALATION RT-QID PRN PRN Reason: Shortness Of Breath HYDROcodone/APAP 10-325MG [[place] 10-325] 1 tab PO QID PRN 3 Days #12 tab PRN Reason: Pain QUEtiapine [SEROquel] 25 mg PO HS Discharge Medication List Omeprazole [PriLOSEC] 20 mg PO AC-BID 04/19/18 [History] Furosemide [Lasix] 40 mg PO DAILY PRN 05/17/18 [History] Albuterol Nebulized [Ventolin Nebulized] 2.5 mg INHALATION RT-QID PRN 06/18/18 [History] Levothyroxine Sodium [Synthroid] 150 mcg PO DAILY 06/18/18 [History] HYDROcodone/APAP 10-325MG [[place] 10-325] 1 tab PO QID PRN 3 Days #12 tab 12/28/18 [Rx] QUEtiapine [SEROquel] 25 mg PO HS 02/17/19 [History] Dexamethasone [Hexadrol] 4 mg PO TID #9 tab 02/24/19 [Rx] HYDROcodone/APAP 10-325MG [[place] 10-325] 1 each PO Q6H PRN tab 02/24/19 [Rx] Follow up Appointment(s)/Referral(s): Valentino Basurto PAC [[employer] [employer]PER[employer]OR] - As Needed (Patient may follow-up with Valentino Basurto PA-C or Dr. Manish Penn at [facility] on an as-needed basis following discharge. ) Jorje Domingo MD [Primary Care Provider] - 1-2 days Patient Instructions/Handouts: Back Pain (ED) Discharge Disposition: HOME SELF-CARE
== END 2019-02-24 15:34 | disposition home or self-care (01) | DRG 552 ==
LOC: EC 16:39 → 4MS4W 20:12 → OBSVTOIN 02-20 12:22
PROVIDERS: ADMIT Hospitalist; ATTEND Hospitalist
DX: M48.061 Spinal stenosis, lumbar region without neurogenic claudication (principal); J44.1 Chronic obstructive pulmonary disease with (acute) exacerbation; E66.2 Morbid (severe) obesity with alveolar hypoventilation; Z68.44 Body mass index [BMI] 60.0-69.9, adult; I50.32 Chronic diastolic (congestive) heart failure; N39.0 Urinary tract infection, site not specified; B95.2 Enterococcus as the cause of diseases classified elsewhere; E03.9 Hypothyroidism, unspecified; F32.9 Major depressive disorder, single episode, unspecified; F41.9 Anxiety disorder, unspecified; G89.4 Chronic pain syndrome; I25.10 Atherosclerotic heart disease of native coronary artery without angina pectoris; I25.2 Old myocardial infarction; I48.91 Unspecified atrial fibrillation; K22.70 Barrett's esophagus without dysplasia; Z87.11 Personal history of peptic ulcer disease; K58.9 Irritable bowel syndrome, unspecified; M13.0 Polyarthritis, unspecified; M51.37 Other intervertebral disc degeneration, lumbosacral region; M54.10 Radiculopathy, site unspecified; R29.6 Repeated falls; R62.7 Adult failure to thrive; Z79.890 Hormone replacement therapy; Z80.1 Family history of malignant neoplasm of trachea, bronchus and lung; Z82.49 Family history of ischemic heart disease and other diseases of the circulatory system; Z85.42 Personal history of malignant neoplasm of other parts of uterus; Z87.19 Personal history of other diseases of the digestive system; Z87.442 Personal history of urinary calculi; Z90.710 Acquired absence of both cervix and uterus; Z96.642 Presence of left artificial hip joint; Z96.653 Presence of artificial knee joint, bilateral; Z80.52 Family history of malignant neoplasm of bladder; Z90.49 Acquired absence of other specified parts of digestive tract; Z87.440 Personal history of urinary (tract) infections; R32 Unspecified urinary incontinence; Z87.01 Personal history of pneumonia (recurrent); Z88.5 Allergy status to narcotic agent; Z88.6 Allergy status to analgesic agent; Z91.041 Radiographic dye allergy status; Z82.3 Family history of stroke
CPT/HCPCS: 72128; 72131; 80048; 80053; 81001; 81003; 85025; 87077; 87086; 87186; 96372; 96374; 99284

== ENCOUNTER → 2019-04-07 | Outpatient (CLI) | payer MEDICARE, OTHER ==
[2019-04-07 13:49] VITALS: BP 147/85; PULSE 96; RESP 16
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
== END | disposition home or self-care (01) ==
LOC: PNWHC3 12:48
PROVIDERS: ATTEND Anesthesiology
DX: G89.29 Other chronic pain (principal); M48.061 Spinal stenosis, lumbar region without neurogenic claudication; M43.15 Spondylolisthesis, thoracolumbar region; M51.36 Other intervertebral disc degeneration, lumbar region; E66.01 Morbid (severe) obesity due to excess calories; I50.9 Heart failure, unspecified; J44.9 Chronic obstructive pulmonary disease, unspecified; I25.2 Old myocardial infarction; E03.9 Hypothyroidism, unspecified; M15.0 Primary generalized (osteo)arthritis; Z68.44 Body mass index [BMI] 60.0-69.9, adult; Z79.899 Other long term (current) drug therapy; Z88.6 Allergy status to analgesic agent; Z88.8 Allergy status to other drugs, medicaments and biological substances
CPT/HCPCS: 99211

== ENCOUNTER 2019-04-20 11:58 | Emergency (ER) | payer MEDICARE, OTHER ==
[2019-04-20 12:03] VITALS: RESP 18; TEMP 98
[2019-04-20] MEDS ORDERED: MORPHINE SULFATE 2 MG/ML SYRINGE IVP STA (12:35)
[2019-04-20] MEDS ORDERED: SODIUM CHLORIDE 0.9% 500 ML 500 ML IV STA (12:35)
[2019-04-20] MEDS ORDERED: ONDANSETRON 4 MG/2 ML VIAL IVP STA (12:36)
[2019-04-20 13:22] LABS: Basophils % (A) 0 %; Eosinophils # (A) 0.3 k/uL (0-0.7); Eosinophils % (A) 4 %; HCT 34.9 % (34.0-46.0); HGB 11.7 gm/dL (11.4-16.0); Lymphocytes % (A) 15 %; MCH 27.7 pg (25.0-35.0); MCHC 33.6 g/dL (31.0-37.0); MCV 82.5 fL (80.0-100.0); Mean Platelet Volume 6.8; Monocytes # (A) 0.3 k/uL (0-1.0); Monocytes % (A) 5 %; Neutrophils # (A) 4.9 k/uL (1.3-7.7); Neutrophils % (A) 74 %; Platelet Count 285 k/uL (150-450); RBC 4.24 m/uL (3.80-5.40); RDW 15.4 % (11.5-15.5); WBC 6.7 k/uL (3.8-10.6)
[2019-04-20 13:32] LABS: ALT 22 U/L (9-52); AST 25 U/L (14-36); African American GFR (CKD) >90 (>60 ml/min/1.73 sqM); Albumin 3.7 g/dL (3.5-5.0); Alkaline Phosphatase 93 U/L (38-126); Amylase 32 U/L (30-110); Anion Gap 8 mmol/L; Blood Urea Nitrogen 14 mg/dL (7-17); Calcium 8.9 mg/dL (8.4-10.2); Carbon Dioxide 28 mmol/L (22-30); Chloride 105 mmol/L (98-107); Glucose 100 mg/dL (74-99); Potassium 4.4 mmol/L (3.5-5.1); Sodium 141 mmol/L (137-145); Total Bilirubin 0.4 mg/dL (0.2-1.3); Total Protein 6.2 g/dL (6.3-8.2)
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
--- NOTE | 2019-04-20 13:57 | XR ---
EXAMINATION TYPE: XR KUB DATE OF EXAM: 04/20/2019 COMPARISON: None INDICATION: Epigastric pain TECHNIQUE: Single view abdomen supine view FINDINGS: Nonspecific bowel gas is present. Psoas margins are normal. No organomegaly is present. Left hip prosthesis present. IMPRESSION: 1. Unremarkable Abdomen
[2019-04-20] MEDS ORDERED: FAMOTIDINE 20 MG/2 ML VIAL IV STA (14:34)
[2019-04-20] MEDS ORDERED: HYDROmorphone 0.5 MG/0.5 ML SYRINGE IVP STA (14:34)
[2019-04-20 14:52] LABS: Appearance,Urine Cloudy (Clear); Bacteria,Urine Rare /hpf; Bilirubin,Urine Negative (Negative); Blood,Urine Negative (Negative); Color,Urine Yellow; Glucose,Urine (UA) Negative (Negative); Hyaline Casts,Urine 7 /lpf (0-2); Ketones,Urine Negative (Negative); Leukocyte Esterase,Urine Trace (Negative); Mucus,Urine Occasional /hpf; Nitrite,Urine Negative (Negative); PH, Urine 5.5 (5.0-8.0); Protein,Urine Trace (Negative); RBC,Urine 2 /hpf (0-5); Specific Gravity,Urine 1.025 (1.001-1.035); Squamous Epithelial Cell,Urine 2 /hpf (0-4); Urobilinogen,Urine <2.0 mg/dL (<2.0); WBC,Urine 6 /hpf (0-5)
[2019-04-20 15:05] VITALS: BP 135/72; PULSE 92
[2019-04-20] MEDS ORDERED: HYDROcodone/APAP 5-325MG 1 EACH TAB PO STA (15:31)
== END 2019-04-20 14:30 | disposition home or self-care (01) ==
LOC: EC 11:58
DX: R19.7 Diarrhea, unspecified (principal); G89.29 Other chronic pain; M54.5 Low back pain; K58.9 Irritable bowel syndrome, unspecified; K27.7 Chronic peptic ulcer, site unspecified, without hemorrhage or perforation; I48.91 Unspecified atrial fibrillation; E03.9 Hypothyroidism, unspecified; I50.9 Heart failure, unspecified; I25.2 Old myocardial infarction; J44.9 Chronic obstructive pulmonary disease, unspecified; M19.90 Unspecified osteoarthritis, unspecified site; F32.9 Major depressive disorder, single episode, unspecified; Z79.890 Hormone replacement therapy; Z79.51 Long term (current) use of inhaled steroids; Z79.899 Other long term (current) drug therapy; Z85.42 Personal history of malignant neoplasm of other parts of uterus; Z87.442 Personal history of urinary calculi; Z88.6 Allergy status to analgesic agent; Z88.8 Allergy status to other drugs, medicaments and biological substances; Z91.041 Radiographic dye allergy status; Z87.440 Personal history of urinary (tract) infections; Z87.19 Personal history of other diseases of the digestive system; Z95.5 Presence of coronary angioplasty implant and graft; Z90.49 Acquired absence of other specified parts of digestive tract; Z96.651 Presence of right artificial knee joint; Z96.641 Presence of right artificial hip joint
CPT/HCPCS: 36415; 80053; 82150; 83690; 85025; 81001; 87086; 87077; 87186; 74018; 99284; 96374; 96375 ×3; J2405; J2270; J1170

== ENCOUNTER 2019-05-23 12:24 | Inpatient (IN) | payer MEDICARE, OTHER ==
[2019-05-23] MEDS ORDERED: SODIUM CHLORIDE 0.9% 1,000 ML IV STA (13:16)
[2019-05-23] MEDS ORDERED: ONDANSETRON 4 MG/2 ML VIAL IVP STA (13:16)
[2019-05-23] MEDS ORDERED: MORPHINE SULFATE 4 MG/ML SYRINGE IVP STA (13:18)
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
[2019-05-23 13:46] LABS: INR 0.9 (<1.2); Partial Thromboplastin Time 23.5 sec (22.0-30.0)
[2019-05-23 13:48] LABS: ALT 23 U/L (9-52); AST 23 U/L (14-36); African American GFR (CKD) 90 (>60 ml/min/1.73 sqM); Alkaline Phosphatase 112 U/L (38-126); Amylase <30 U/L (30-110); Anion Gap 9 mmol/L; Blood Urea Nitrogen 8 mg/dL (7-17); Calcium 9.2 mg/dL (8.4-10.2); Carbon Dioxide 29 mmol/L (22-30); Chloride 104 mmol/L (98-107); Glucose 107 mg/dL (74-99); Potassium 4.4 mmol/L (3.5-5.1); Sodium 142 mmol/L (137-145); Total Bilirubin 0.7 mg/dL (0.2-1.3); Total Protein 6.9 g/dL (6.3-8.2)
[2019-05-23 13:56] LABS: Basophils % (A) 1 %; Eosinophils # (A) 0.2 k/uL (0-0.7); Eosinophils % (A) 3 %; HCT 36.5 % (34.0-46.0); HGB 11.8 gm/dL (11.4-16.0); Hypochromasia Slight; Lymphocytes % (A) 14 %; MCH 27.1 pg (25.0-35.0); MCHC 32.4 g/dL (31.0-37.0); MCV 83.7 fL (80.0-100.0); Mean Platelet Volume 5.9; Monocytes # (A) 0.3 k/uL (0-1.0); Monocytes % (A) 5 %; Neutrophils # (A) 5.2 k/uL (1.3-7.7); Neutrophils % (A) 75 %; Platelet Count 304 k/uL (150-450); RBC 4.36 m/uL (3.80-5.40); RDW 14.6 % (11.5-15.5); WBC 6.9 k/uL (3.8-10.6)
[2019-05-23] MEDS ORDERED: MORPHINE SULFATE 2 MG/ML SYRINGE IVP ONE (14:29)
[2019-05-23 15:27] LABS: Appearance,Urine Clear (Clear); Bilirubin,Urine Negative (Negative); Blood,Urine Negative (Negative); Color,Urine Yellow; Glucose,Urine (UA) Negative (Negative); Ketones,Urine Negative (Negative); Leukocyte Esterase,Urine Negative (Negative); Nitrite,Urine Negative (Negative); Protein,Urine Negative (Negative); Specific Gravity,Urine 1.018 (1.001-1.035); Urobilinogen,Urine <2.0 mg/dL (<2.0)
[2019-05-23] MEDS ORDERED: diphenhydrAMINE 50 MG/ML 1 ML VIAL IVP STA (15:32)
[2019-05-23] MEDS ORDERED: methylPREDNISolone SOD SUCCI 125 MG/2 ML VIAL IV STA (15:36)
[2019-05-23] MEDS ORDERED: FAMOTIDINE 20 MG/2 ML VIAL IV STA (15:36)
--- NOTE | 2019-05-23 16:29 | CT ---
EXAMINATION TYPE: CT abdomen pelvis w con DATE OF EXAM: 05/23/2019 COMPARISON: 08/07/2018 INDICATION: Generalized abdominal pain. DLP: 3653 mGycm, Automated exposure control for dose reduction was used. CONTRAST: 100 mL of Isovue 300. Study performed without Oral Contrast TECHNIQUE: Axial images were obtained from above the diaphragm to the pubic rami in the axial plane a t 5 mm thick sections. Reconstructed images are reviewed on the computer in the coronal plane. FINDINGS: Limited CT sections are obtained the lung bases. The lung bases are clear. Coronary artery calcific ation is noted. CT ABDOMEN: Liver: Normal Spleen: Normal Pancreas: Normal Adrenal glands: The adrenal glands are normal. Gallbladder: Normal Kidneys: No masses are evident. No hydronephrosis is present. No cysts are present. Delayed image s were obtained to the kidneys which are unremarkable. Inferior vena cava: Normal. Beam hardening artifact from left hip prosthesis is evident. CT PELVIS: Urinary bladder is decompressed and cannot be well evaluated. Multiple diverticuli within the sigmoid colon. The appendix is not identified. Vascular calcifications within the aorta. IMPRESSIONS: 1. No suspicious renal abnormality.
[2019-05-23] MEDS ORDERED: HYDROmorphone 0.5 MG/0.5 ML SYRINGE IVP STA (16:32)
[2019-05-23] MEDS ORDERED: LOPERAMIDE 2 MG CAP PO PRN (16:53)
[2019-05-23] MEDS ORDERED: MORPHINE SULFATE 4 MG/ML SYRINGE IV PRN (16:53)
[2019-05-23] MEDS ORDERED: ACETAMINOPHEN TAB 325 MG TAB PO PRN (16:53)
[2019-05-23] MEDS ORDERED: traMADol 50 MG TAB PO PRN (16:53)
[2019-05-23] MEDS ORDERED: NALOXONE 0.4 MG/ML 1 ML VIAL IV PRN (16:53)
[2019-05-23] MEDS: ONDANSETRON 4 MG/2 ML VIAL IVP PRN (17:55)
[2019-05-23] MEDS: SODIUM CHLORIDE 0.9% 1,000 ML IV SCH (21:11)
[2019-05-23 21:23] VITALS: BMI 67.0
[2019-05-23] MEDS: QUEtiapine 25 MG TAB PO SCH (23:00)
[2019-05-23] MEDS: HYDROmorphone 0.5 MG/0.5 ML SYRINGE IVP PRN (23:01)
[2019-05-23] MEDS: PREGABALIN 50 MG CAP PO SCH (23:01)
[2019-05-24] MEDS: HYDROcodone/APAP 7.5-325MG 1 EACH TAB PO PRN ×4 (02:00→20:31)
[2019-05-24] MEDS: HYDROmorphone 0.5 MG/0.5 ML SYRINGE IVP PRN ×4 (05:48→23:25)
[2019-05-24] MEDS: LEVOTHYROXINE 50 MCG TAB PO SCH (05:48)
[2019-05-24] MEDS: ONDANSETRON 4 MG/2 ML VIAL IVP PRN (05:52)
[2019-05-24] MEDS: PANTOPRAZOLE 40 MG TABLET PO SCH (08:21)
[2019-05-24] MEDS: PREGABALIN 50 MG CAP PO SCH ×2 (08:22→19:51)
[2019-05-24] MEDS: SODIUM CHLORIDE 0.9% 1,000 ML IV SCH ×2 (08:22→23:25)
[2019-05-24] MEDS ORDERED: PREGABALIN 50 MG CAP PO SCH (09:00)
[2019-05-24] MEDS ORDERED: HYDROmorphone 0.5 MG/0.5 ML SYRINGE IM PRN (10:00)
[2019-05-24] MEDS ORDERED: IPRATROPIUM-ALBUTEROL 3 ML NEB INHALATION PRN (13:35)
[2019-05-24] MEDS: QUEtiapine 25 MG TAB PO SCH (19:50)
[2019-05-24] MEDS ORDERED: QUEtiapine 25 MG TAB PO SCH (21:00)
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
[2019-05-25] MEDS: HYDROmorphone 0.5 MG/0.5 ML SYRINGE IVP PRN ×3 (05:26→17:58)
[2019-05-25] MEDS: LEVOTHYROXINE 50 MCG TAB PO SCH (05:26)
[2019-05-25] MEDS: CHOLESTYRAMINE (WITH SUGAR) 4 GM PACKET PO SCH ×2 (08:43→17:02)
[2019-05-25] MEDS: PANTOPRAZOLE 40 MG TABLET PO SCH (08:43)
[2019-05-25] MEDS: HYDROcodone/APAP 7.5-325MG 1 EACH TAB PO PRN ×3 (08:43→20:38)
[2019-05-25] MEDS: PREGABALIN 50 MG CAP PO SCH ×2 (08:43→21:11)
[2019-05-25] MEDS: DICYCLOMINE 20 MG TAB PO SCH ×4 (08:43→21:11)
[2019-05-25] MEDS: SODIUM CHLORIDE 0.9% 1,000 ML IV SCH (17:58)
--- NOTE | 2019-05-25 20:48 | P.PN ---
Subjective Progress Note Date: 05/25/19 Principal diagnosis: Abdominal pain, diarrhea, nausea and vomiting Patient is seen lying in bed. She ordered a double order of chicken fingers today and is obviously tolerating her diet. She also is no longer having diarrhea but when asked if it was the cholestyramine which helped she states that in addition to trying Lomotil, Imodium and Bentyl at home she had also been taking cholestyramine with no help. She subsequently refused her afternoon dose of Bentyl and cholestyramine. Objective - Vital Signs Vital signs: Vital Signs Temp 97.5 F L 05/25/19 05:06 Pulse 72 05/25/19 05:06 Resp 16 05/25/19 05:06 BP 100/61 05/25/19 05:06 Pulse Ox 93 L 05/25/19 05:06 Intake & Output 05/24/19 05/25/19 05/25/19 18:59 06:59 18:59 Intake Total 200 Balance 200 Weight 167.4 kg Intake: Oral 200 Other: Voiding Method Bedside Commode Bedside Commode Bedside Commode Incontinent # Voids 2 1 1 # Bowel Movements 2 1 - Exam On physical examination, patient appears comfortable in no apparent distress. HEAD: Normocephalic, atraumatic. EYES: No scleral icterus. No conjunctival injection. MOUTH: No lesions, tongue midline. NECK: Trachea midline, no gross abnormalities. ABDOMEN: Obese. Bowel sounds are positive. EXTREMITIES: No pedal edema. SKIN: No rashes, no jaundice. NEUROLOGIC: Alert and oriented x3. - Labs CBC & Chem 7: 05/23/19 13:26 05/23/19 13:26 Assessment and Plan (1) Abdominal pain Narrative/Plan: 69-year-old female with multiple medical comorbidities and numerous admissions for complaints of abdominal pain who presents back with similar complaints. Patient has had numerous imaging studies in the past with a no acute findings, as well as repeat computed tomography scan on current admission which was negative for any intra-abdominal pathology. She had EGD for dysphagia in 05/2018 negative for any stricture or mass with findings of a hiatal hernia, and colonoscopy on 07/2018 with findings of a normal-appearing colon with diverticulosis and internal hemorrhoids. The patient appears to have issues with pain control and drug-seeking behavior. She reports trying to cut down on narcotic use, and then requests higher doses of narcotics. Symptoms of abdominal pain are likely multifactorial with component of functional bowel disorder. Current Visit: Yes Status: Acute Code(s): R10.9 - UNSPECIFIED ABDOMINAL PAIN SNOMED Code(s): 22909456 (2) Diarrhea Current Visit: Yes Status: Acute Code(s): R19.7 - DIARRHEA, UNSPECIFIED SNOMED Code(s): 04459005 (3) Nausea & vomiting Current Visit: Yes Status: Acute Code(s): R11.2 - NAUSEA WITH VOMITING, UNSPECIFIED SNOMED Code(s): 76423109 Plan: Supportive care Okay for diet as tolerated Continue to monitor CBC, CMP Bentyl 20 mg every 6 hours Cholestyramine twice daily for diarrhea(history of cholecystectomy) Weight loss through diet and exercise recommended No plans for endoscopic evaluation with EGD in 05/2018 and colonoscopy in 07/2018 as noted above Thank you for allowing us to participate in the care of the patient, the GI service will stand by, please call us back with any questions or concerns
[2019-05-25] MEDS: QUEtiapine 25 MG TAB PO SCH (21:11)
[2019-05-25] MEDS ORDERED: MORPHINE SULFATE 4 MG/ML SYRINGE IVP ONE (22:00)
[2019-05-26] MEDS: HYDROmorphone 0.5 MG/0.5 ML SYRINGE IVP PRN ×5 (00:06→23:31)
[2019-05-26] MEDS: HYDROcodone/APAP 7.5-325MG 1 EACH TAB PO PRN ×4 (03:26→21:42)
[2019-05-26] MEDS: LEVOTHYROXINE 50 MCG TAB PO SCH (06:09)
[2019-05-26] MEDS: DICYCLOMINE 20 MG TAB PO SCH ×4 (09:28→21:38)
[2019-05-26] MEDS: PANTOPRAZOLE 40 MG TABLET PO SCH (09:29)
[2019-05-26] MEDS: CHOLESTYRAMINE (WITH SUGAR) 4 GM PACKET PO SCH ×2 (09:29→11:52)
[2019-05-26] MEDS: PREGABALIN 50 MG CAP PO SCH ×2 (09:29→21:37)
[2019-05-26] MEDS: SODIUM CHLORIDE 0.9% 1,000 ML IV SCH (11:53)
[2019-05-26] MEDS: ONDANSETRON 4 MG/2 ML VIAL IVP PRN (17:26)
[2019-05-26] MEDS: QUEtiapine 25 MG TAB PO SCH (21:37)
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
[2019-05-27] MEDS: HYDROcodone/APAP 7.5-325MG 1 EACH TAB PO PRN ×2 (04:08→09:47)
[2019-05-27] MEDS: SODIUM CHLORIDE 0.9% 1,000 ML IV SCH (04:38)
[2019-05-27 05:09] VITALS: BP 160/91; PULSE 77; RESP 18; TEMP 98.2
[2019-05-27] MEDS: HYDROmorphone 0.5 MG/0.5 ML SYRINGE IVP PRN (05:18)
[2019-05-27] MEDS: LEVOTHYROXINE 50 MCG TAB PO SCH (05:48)
[2019-05-27] MEDS: PANTOPRAZOLE 40 MG TABLET PO SCH (07:13)
[2019-05-27] MEDS: DICYCLOMINE 20 MG TAB PO SCH ×2 (07:13→10:50)
[2019-05-27] MEDS: PREGABALIN 50 MG CAP PO SCH (07:13)
[2019-05-27] MEDS: CHOLESTYRAMINE (WITH SUGAR) 4 GM PACKET PO SCH (07:13)
[2019-05-27] MEDS: ONDANSETRON 4 MG/2 ML VIAL IVP PRN (09:47)
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
[2019-05-27] MEDS ORDERED: HYDROmorphone 1 MG/ML 1 ML SYRINGE IVP PRN (10:45)
[2019-05-27 11:34] LABS: Basophils # (A) 0.2 k/uL (0-0.2); Basophils % (A) 2 %; Eosinophils # (A) 0.4 k/uL (0-0.7); Eosinophils % (A) 4 %; HCT 36.2 % (34.0-46.0); HGB 11.9 gm/dL (11.4-16.0); Lymphocytes % (A) 11 %; MCH 27.2 pg (25.0-35.0); MCHC 32.8 g/dL (31.0-37.0); MCV 83.1 fL (80.0-100.0); Mean Platelet Volume 6.6; Monocytes # (A) 0.5 k/uL (0-1.0); Monocytes % (A) 5 %; Neutrophils # (A) 7.3 k/uL (1.3-7.7); Neutrophils % (A) 78 %; Platelet Count 322 k/uL (150-450); RBC 4.36 m/uL (3.80-5.40); RDW 14.4 % (11.5-15.5); WBC 9.4 k/uL (3.8-10.6)
== END 2019-05-27 12:49 | DRG 392 ==
LOC: EC 12:24 → 4MS4W 16:52 → OBSVTOIN 05-24 14:06
PROVIDERS: ADMIT Hospitalist; ATTEND Hospitalist
DX: K52.9 Noninfective gastroenteritis and colitis, unspecified (principal); Z68.44 Body mass index [BMI] 60.0-69.9, adult; E03.9 Hypothyroidism, unspecified; E66.01 Morbid (severe) obesity due to excess calories; F32.9 Major depressive disorder, single episode, unspecified; F41.9 Anxiety disorder, unspecified; I48.91 Unspecified atrial fibrillation; J44.9 Chronic obstructive pulmonary disease, unspecified; G89.4 Chronic pain syndrome; Z96.653 Presence of artificial knee joint, bilateral; M13.0 Polyarthritis, unspecified; I34.1 Nonrheumatic mitral (valve) prolapse; I50.9 Heart failure, unspecified; Z87.19 Personal history of other diseases of the digestive system; Z87.01 Personal history of pneumonia (recurrent); Z85.41 Personal history of malignant neoplasm of cervix uteri; Z90.710 Acquired absence of both cervix and uterus; Z90.49 Acquired absence of other specified parts of digestive tract; Z87.440 Personal history of urinary (tract) infections; Z98.890 Other specified postprocedural states; Z79.890 Hormone replacement therapy; Z79.899 Other long term (current) drug therapy; Z88.5 Allergy status to narcotic agent; Z88.8 Allergy status to other drugs, medicaments and biological substances; Z88.6 Allergy status to analgesic agent; Z91.041 Radiographic dye allergy status; I25.2 Old myocardial infarction; Z85.42 Personal history of malignant neoplasm of other parts of uterus; Z87.81 Personal history of (healed) traumatic fracture; Z87.442 Personal history of urinary calculi; Z90.89 Acquired absence of other organs; Z80.1 Family history of malignant neoplasm of trachea, bronchus and lung; Z82.49 Family history of ischemic heart disease and other diseases of the circulatory system; Z82.3 Family history of stroke; Z83.2 Family history of diseases of the blood and blood-forming organs and certain disorders involving the immune mechanism; Z80.52 Family history of malignant neoplasm of bladder; Z91.81 History of falling
CPT/HCPCS: 36415; 74177; 80053; 81003; 82150; 83690; 85025; 85610; 85730; 87324; 96361; 96374; 96375; 96376; 99285

== ENCOUNTER 2019-11-07 16:35 | Inpatient (IN) | payer MEDICARE, OTHER ==
[2019-11-07] MEDS ORDERED: MORPHINE SULFATE 4 MG/ML SYRINGE IV STA (16:51)
[2019-11-07] MEDS ORDERED: LIDOCAINE 5% PATCH TOPICAL STA (16:51)
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
[2019-11-07] MEDS: SODIUM CHLORIDE 0.9% 1,000 ML IV STA ×2 (18:07→20:31)
[2019-11-07 18:09] LABS: Basophils % (A) 0 %; Eosinophils # (A) 0.2 k/uL (0-0.7); Eosinophils % (A) 2 %; HCT 35.9 % (34.0-46.0); HGB 11.5 gm/dL (11.4-16.0); Lymphocytes # (A) 1.3 k/uL (1.0-4.8); Lymphocytes % (A) 17 %; MCH 25.7 pg (25.0-35.0); MCHC 32.2 g/dL (31.0-37.0); MCV 79.9 fL (80.0-100.0); Monocytes # (A) 0.3 k/uL (0-1.0); Monocytes % (A) 4 %; Neutrophils # (A) 5.8 k/uL (1.3-7.7); Neutrophils % (A) 74 %; Platelet Count 325 k/uL (150-450); RBC 4.49 m/uL (3.80-5.40); RDW 14.4 % (11.5-15.5); WBC 7.9 k/uL (3.8-10.6)
[2019-11-07] MEDS ORDERED: ONDANSETRON 4 MG/2 ML VIAL IVP STA (18:09)
[2019-11-07 18:17] LABS: Partial Thromboplastin Time 22.6 sec (22.0-30.0); Prothrombin Time 10.1 sec (9.0-12.0)
[2019-11-07 18:24] LABS: African American GFR (CKD) >90 (>60 ml/min/1.73 sqM); Anion Gap 7 mmol/L; Blood Urea Nitrogen 9 mg/dL (7-17); Calcium 9.1 mg/dL (8.4-10.2); Carbon Dioxide 27 mmol/L (22-30); Chloride 104 mmol/L (98-107); Glucose 114 mg/dL (74-99); Non-African American GFR(CKD) 80 (>60 ml/min/1.73 sqM); Potassium 4.2 mmol/L (3.5-5.1); Sodium 138 mmol/L (137-145)
--- NOTE | 2019-11-07 18:40 | XR ---
EXAMINATION TYPE: XR knee complete RT DATE OF EXAM: 11/07/2019 CLINICAL HISTORY: pain TECHNIQUE: Three views of the right knee are obtained. COMPARISON: 12/26/2015 FINDINGS: There is no acute fracture/dislocation. Total knee arthroplasty is in place. Femoral and t ibial components appearing well seated. The overlying soft tissue appears unremarkable. IMPRESSION: There is no acute fracture or dislocation.ICD 10 NO FRACTURE, INITIAL EVALUATION
--- NOTE | 2019-11-07 19:08 | CT ---
EXAMINATION TYPE: CT CervThorLumbar spine wo con DATE OF EXAM: 11/07/2019 COMPARISON: 02/18/2019 HISTORY: Fall, pain. CT DLP: 3254.7 mGycm Automated exposure control for dose reduction was used. Unenhanced CT of the cervical, thoracic and l umbar spines was performed in the axial, coronal and sagittal planes. Bone and soft tissue window set tings are submitted. FINDINGS: There is no evidence for fracture or subluxation of the cervical, thoracic or lumbar spines. There is scattered moderate to severe multilevel degenerative disc. Scattered ventral spondylosis. Central s tenosis identified at L3-4 and L4-5. No paraspinal mass identified. IMPRESSION: NO EVIDENCE FOR FRACTURE OF THE CERVICAL, THORACIC OR LUMBAR SPINES.
[2019-11-07] MEDS ORDERED: NALOXONE 0.4 MG/ML 1 ML VIAL IV PRN (19:10)
[2019-11-07] MEDS ORDERED: ACETAMINOPHEN TAB 325 MG TAB PO PRN (19:10)
[2019-11-07] MEDS: SODIUM CHLORIDE 0.9% 1,000 ML IV SCH (19:15)
[2019-11-07] MEDS ORDERED: MORPHINE SULFATE 4 MG/ML SYRINGE IVP STA (19:15)
[2019-11-07] MEDS: oxyCODONE-APAP 5-325MG 1 EACH TAB PO PRN (20:30)
[2019-11-07] MEDS ORDERED: APIXABAN 5 MG TAB PO SCH (21:00)
[2019-11-07] MEDS: PREGABALIN 50 MG CAP PO SCH (21:57)
[2019-11-07] MEDS: FUROSEMIDE 20 MG TAB PO SCH (21:57)
[2019-11-07] MEDS: MELATONIN 5 MG TABLET PO SCH (21:57)
[2019-11-08] MEDS: oxyCODONE-APAP 5-325MG 1 EACH TAB PO PRN ×3 (02:47→12:06)
[2019-11-08] MEDS: LEVOTHYROXINE 75 MCG TAB PO SCH (06:15)
--- NOTE | 2019-11-08 07:26 | CT ---
EXAMINATION TYPE: CT brain wo con DATE OF EXAM: 11/08/2019 COMPARISON: 12/29/2017 HISTORY: 69-year-old female with pain after Fall TECHNIQUE: Examination was done in axial plane without intravenous contrast. Coronal and sagittal r econstructions performed. CT DLP: 999.8 mGycm Automated exposure control for dose reduction was used. FINDINGS: There is no evidence of acute intracranial hemorrhage, acute ischemic changes, or extra-axial fluid collection. There is no effacement of cerebral sulci or basal subarachnoid cisterns. There is no hy drocephalus. There is no midline shift. Sarkar-white matter distinction is preserved. Stable 1.9 cm round calcified sellar/suprasellar mass. Similar extension into the suprasellar region. Additional smaller masses suggested within the lateral aspect of the right middle cranial fossa marco a uring 7 mm. Moderate patchy white matter hypodensities in both cerebral hemispheres. Air-fluid level left sphenoid sinus. Some frothy partial opacification within the bilateral ethmoid a ir cells. IMPRESSION: 1. Stable calcified sellar/suprasellar 1.9 cm mass and a 7 mm extra-axial mass right middle cranial f wilver as compared to 12/29/2017. 2. Moderate patchy changes of chronic small vessel ischemic disease. No acute intracranial abnormalit y seen. 3. Air fluid level left sphenoid sinus and some frothy opacification ethmoid air cells. Correlate for any symptoms of acute sinusitis.
[2019-11-08] MEDS: ONDANSETRON 4 MG/2 ML VIAL IVP PRN (07:40)
[2019-11-08] MEDS: PREGABALIN 50 MG CAP PO SCH ×3 (07:40→20:53)
[2019-11-08] MEDS: FUROSEMIDE 80 MG TAB PO SCH (07:40)
[2019-11-08] MEDS: PANTOPRAZOLE 40 MG TABLET PO SCH (07:41)
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
[2019-11-08] MEDS ORDERED: LORazepam 0.5 MG TAB PO PRN (15:49)
[2019-11-08] MEDS: HEPARIN SODIUM,PORCINE 5,000 UNIT/ML 1 ML VIAL SQ SCH ×2 (16:31→16:35)
[2019-11-08] MEDS: oxyCODONE-APAP 7.5-325MG 1 EACH TAB PO PRN ×2 (16:33→20:53)
--- NOTE | 2019-11-08 17:12 | HP ---
HISTORY AND PHYSICAL DATE OF SERVICE: 11/08/2019 CHIEF COMPLAINTS: Fall and back pain and gait dysfunction. HISTORY OF PRESENT ILLNESS: This is a 69-year-old gentleman woman with a past medical history of multiple medical issues including atrial fibrillation, history of CHF, COPD, history of GI bleed, myocardial infarction, DJD, pulmonary embolism, eating disorder, colitis, being followed by Dr. Domingo in the outpatient setting, apparently not feeling well over the past several days. The patient also had some cough and fever and other symptoms along apparently with her son who was admitted in [facility] and the COVID- 19 test was negative. Apparently, patient came back home but apparently patient feeling extremely weak and patient stumbled and fell at home. Subsequently, patient complains of severe back and neck pain and difficulty in walking and ambulation. Also patient evaluated by Dr. Penn. The patient is found to have spinal stenosis and acute on chronic exacerbation with pain as suspected. No acute fractures detected, but; however, the patient has significant gait dysfunction also PT, OT is evaluating the patient also. CT scan of thoracic and lumbar spine showed no fractures as mentioned earlier. There is no history of any fever or rigors No history of headache or seizures at this time. PAST MEDICAL HISTORY: History of atrial fibrillation, history of CHF, COPD, GI bleed, myocardial infarction, DJD, pulmonary embolism. HOME MEDICATIONS: 1. Lasix 80 mg p.o. daily. 3. Oxycodone 7.5 mg q.6 p.r.n. 4. Synthroid 150 mcg p.o. daily. 5. Prilosec 20 mg b.i.d. 6. Melatonin 10 mg p.o. q.h.s. 7. Eliquis 5 mg p.o. b.i.d. 8. Lyrica 50 mg p.o. t.i.d. ALLERGIES: IODINATED CONTRAST DYES, COMPAZINE, ZANAFLEX, TORADOL, NSAIDS, ULTRAM. FAMILY HISTORY: History of CVA, TIA, hypertension, history of myocardial infarction, history of bladder cancer. SOCIAL HISTORY: No history of smoking. No history of alcohol intake. REVIEW OF SYSTEMS: ENT: No diminished vision. CARDIOVASCULAR: No angina. RESPIRATORY: As mentioned earlier. GI: As mentioned earlier. : As mentioned earlier. NERVOUS SYSTEM: As mentioned earlier. ALLERGY/IMMUNOLOGY: Asthma. MUSCULOSKELETAL: As mentioned earlier. HEMATOLOGY: No history of anemia. ENDOCRINE: Hypothyroidism. CONSTITUTIONAL: As mentioned earlier. DERMATOLOGY: Negative. RHEUMATOLOGY: Negative. PSYCHIATRY: As mentioned earlier. PHYSICAL EXAMINATION: Alert and oriented x3. Pulse 73, blood pressure 118/70, respiration 16, temperature 98 degrees, pulse ox 98% on room air. HEENT: Conjunctivae are normal. Oral mucosa moist. The weight is 158, .75 kg and BMI is 64. Oral mucosa moist. Neck: Obese. CARDIOVASCULAR: S1, S2, muffled. RESPIRATION: Decreased breath sounds at the bases, a few scattered rhonchi. No crackles. ABDOMEN: Soft, obese, nontender. LEGS: No edema. NERVOUS SYSTEM: Diffusely weak and significant difficulty examination because of severe pain even on slightest movement according to her. SKIN: No ulcers, rash. JOINTS: No active deformity. LYMPHATICS: No lymph node enlargement. LABS: WBC IS 7.2, hemoglobin 11.5, sodium 130. Other labs are noted. ASSESSMENT: 1. Fall with severe gait dysfunction with possibly acute on chronic pain syndrome and acute muscular injury. 2. History of spinal stenosis. Rule out acute exacerbation. 3. History of degenerative joint disease. 4. Super morbid obesity with BMI of 64. 5. History of atrial fibrillation. 6. History of congestive heart failure. 7. Chronic obstructive pulmonary disease. 8. History of myocardial infarction. 9. History of degenerative joint disease. 10.History of pneumonia. 11.Pulmonary embolism. 12.History of renal disease. 13.History hypothyroid. 14.History of colitis. 15.History IBS. 16.History of incontinence. 17.Cervical cancer. 18.History of peptic esophageal ulcers and Scales's esophagus. 19.History of hiatal hernia. 20.Herniated disk T2 to 3-4 and L5-S1. 21.History of fractured sternum. 22.History of hypothyroidism. 23.History of nephrolithiasis. 24.History of degenerative joint disease. 25.History of Clostridium difficile. 26.History of joint replacement. 27.History of anxiety, depression. 28.FULL CODE. RECOMMENDATION: In this 69-year-old woman who presented with multiple complex medical issues, at this time I recommend to continue the rest of the home medications, symptomatic treatment of the pain will be offered. Otherwise, Dr. Penn will be consulted. PT, OT evaluation. The patient had extreme difficulty is even slightly moving in the bed so this patient will require at least more than 2 nights hospital stay to diagnosis and treat the above- mentioned multiple complex medical issues. The COVID-19 has been negative in [place]. I would recommend contacting Infection Control for further followup. Otherwise, resume the home medications. DVT prophylaxis. Discussed with the patient and recommend PT, OT evaluation, possible ECF rehab and a copy of this will be forwarded to Dr. Domingo who is the primary physician. MMODL / IJN: [id number] / SAL
[2019-11-08] MEDS: MELATONIN 5 MG TABLET PO SCH (20:52)
[2019-11-08] MEDS: APIXABAN 5 MG TAB PO SCH (20:53)
[2019-11-08] MEDS: FUROSEMIDE 20 MG TAB PO SCH (20:53)
[2019-11-08] MEDS: SODIUM CHLORIDE 0.9% 1,000 ML IV SCH (22:00)
[2019-11-09] MEDS: LEVOTHYROXINE 75 MCG TAB PO SCH (05:11)
[2019-11-09] MEDS: oxyCODONE-APAP 7.5-325MG 1 EACH TAB PO PRN ×4 (05:59→22:40)
[2019-11-09] MEDS: PREGABALIN 50 MG CAP PO SCH ×3 (09:10→22:19)
[2019-11-09] MEDS: FUROSEMIDE 80 MG TAB PO SCH (09:10)
[2019-11-09] MEDS: PANTOPRAZOLE 40 MG TABLET PO SCH (09:10)
[2019-11-09] MEDS: APIXABAN 5 MG TAB PO SCH ×2 (09:10→22:18)
--- NOTE | 2019-11-09 11:09 | XR ---
EXAMINATION TYPE: XR chest 1V portable DATE OF EXAM: 11/09/2019 HISTORY: Shortness of breath. COMPARISON: 09/24/2019 TECHNIQUE: Single view of the chest is submitted. FINDINGS: Demonstrated are scattered senescent parenchymal change. Mild increased density right lower lobe may reflect developing infiltrate. The heart is stable. Hilar and mediastinal structures are within normal limits. Degenerative changes are seen of the dorsal spine. IMPRESSION: 1. Mild increased density right lower lobe may reflect developing infiltrate.
[2019-11-09] MEDS: HYDROmorphone 0.5 MG/0.5 ML SYRINGE IVP PRN ×2 (13:54→19:42)
[2019-11-09] MEDS: ONDANSETRON 4 MG/2 ML VIAL IVP PRN (15:45)
--- NOTE | 2019-11-09 16:03 | PN ---
PROGRESS NOTE DATE OF SERVICE: 11/09/2019 HISTORY OF PRESENT ILLNESS: This is a 69-year-old woman who was admitted with a fall and back and neck pain. Also had gait dysfunction. Patient apparently had 2 falls complaining of severe pain. Patient has significant lumbar stenosis patient also gait dysfunction, generalized weakness also. The patient apparently recently been tested for COVID outside hospital, which was negative. Currently, there is no fever, occasional cough is reported, but however, no shortness of breath and chest x-ray which was personally reviewed by me showed mild increased density in the right lower lobe, which could indicate infiltrate. There is no history of fever or rigors. PAST MEDICAL HISTORY: Reviewed. REVIEW OF SYSTEMS: CARDIOVASCULAR SYSTEM: No angina. RESPIRATIONS: As mentioned earlier. GI: As mentioned earlier. : No dysuria. NERVOUS SYSTEM: Weakness. CURRENT MEDICATIONS: Reviewed and include: 1. Tylenol. 2. Eliquis 5 mg p.o. b.i.d. 3. Lasix 20 mg. 4. Dilaudid. 5. Synthroid. 6. Ativan. 7. Melatonin. 8. Narcan. 9. Zofran. 10.Percocet. 11.Protonix. 12.Lyrica. 13.Doses are reviewed. PHYSICAL EXAM: Patient alert and oriented x3. Pulse 78, blood pressure 140/70, respiration 20, temperature 98.1, pulse ox 94% on room air. HEENT: Conjunctivae normal. NECK: No jugular venous distension. CARDIOVASCULAR: S1, S2, muffled. RESPIRATION: Breath sounds diminished at the bases, bilateral scattered rhonchi, no crackles. ABDOMEN: Soft, obese, nontender. LEGS: No edema. No cyanosis. NERVOUS SYSTEM: Diffusely weak. Extension of back, tenderness present. LABS: CBC within normal limits, otherwise glucose 114. C-reactive protein is 10.5. ASSESSMENT: 1. Fall and severe gait dysfunction with possible acute on chronic pain syndrome and acute muscular injury. 2. Possible right lower pneumonia, consider community-acquired. 3. History of spinal stenosis. Rule out acute exacerbation. 4. History of degenerative joint disease. 5. History of super morbid obesity with body mass index of 64. 6. History of atrial fibrillation. 7. History of congestive bajwa failure, ejection fraction unknown. 8. Chronic obstructive pulmonary disease. 9. History of myocardial infarction. 10.History of pneumonia. 11.History of pulmonary embolism. 12.History of chronic renal disease. 13.History hypothyroidism. 14.History of colitis. 15.History IBS. 16.History of incontinence. 17.History of cervical cancer. 18.History of esophageal ulcer with Scales's esophagus. 19.History of hiatal hernia. 20.History of herniated disk T2 to T3-4 and L5-S1. 21.History of fractured sternum. 22.History of hypothyroidism. 23.History of nephrolithiasis. 24.History of degenerative joint disease. 25.History of Clostridium difficile. 26.History of anxiety, depression. 27.FULL CODE. RECOMMENDATION AND DISCUSSION: In this 69-year-old woman who presented with multiple complex medical issues, will monitor the patient closely, continue with the current management. I would add a course of empiric IV antibiotics also. Otherwise PT, OT evaluation, possible ECF rehab. Guarded prognosis because of multiple complex medical issues as listed above and further recommendations to follow. MMODL / IJN: [id number] /
[2019-11-09] MEDS: SODIUM CHLORIDE 0.9% 1,000 ML IV SCH (20:20)
[2019-11-09] MEDS: MELATONIN 5 MG TABLET PO SCH (22:18)
[2019-11-09] MEDS: FUROSEMIDE 20 MG TAB PO SCH (22:18)
[2019-11-10] MEDS: HYDROmorphone 0.5 MG/0.5 ML SYRINGE IVP PRN ×5 (04:36→22:15)
[2019-11-10] MEDS: LEVOTHYROXINE 75 MCG TAB PO SCH (05:50)
[2019-11-10 07:22] LABS: Basophils # (A) 0.1 k/uL (0-0.2); Basophils % (A) 1 %; Eosinophils # (A) 0.4 k/uL (0-0.7); Eosinophils % (A) 6 %; HCT 36.6 % (34.0-46.0); HGB 11.3 gm/dL (11.4-16.0); Lymphocytes # (A) 1.3 k/uL (1.0-4.8); Lymphocytes % (A) 21 %; MCH 25.5 pg (25.0-35.0); MCHC 30.9 g/dL (31.0-37.0); MCV 82.5 fL (80.0-100.0); Mean Platelet Volume 7.3; Monocytes # (A) 0.4 k/uL (0-1.0); Monocytes % (A) 6 %; Neutrophils # (A) 4.2 k/uL (1.3-7.7); Neutrophils % (A) 65 %; Platelet Count 281 k/uL (150-450); RBC 4.44 m/uL (3.80-5.40); RDW 15.1 % (11.5-15.5); WBC 6.4 k/uL (3.8-10.6)
[2019-11-10 07:30] LABS: Calcium 8.9 mg/dL (8.4-10.2); Potassium 4.4 mmol/L (3.5-5.1)
[2019-11-10] MEDS: PANTOPRAZOLE 40 MG TABLET PO SCH (08:04)
[2019-11-10] MEDS: FUROSEMIDE 80 MG TAB PO SCH (08:04)
[2019-11-10] MEDS: APIXABAN 5 MG TAB PO SCH ×2 (08:04→21:46)
[2019-11-10] MEDS: PREGABALIN 50 MG CAP PO SCH ×3 (08:09→21:47)
[2019-11-10] MEDS: oxyCODONE-APAP 7.5-325MG 1 EACH TAB PO PRN (11:22)
--- NOTE | 2019-11-10 15:57 | PN ---
PROGRESS NOTE DATE OF SERVICE: 11/10/2019 This is a 69-year-old woman who was admitted with multiple medical problems including gait dysfunction and fall, being closely monitored. PT/OT is evaluating the patient also. Patient also has possibly right lower pneumonia also. The patient was given antibiotics also. The most recent chest x-ray which was reviewed personally by me showed some haziness on the left side of the chest and possible right lower lobe infiltrate also. The patient is being closely monitored. The patient also had issues with incontinence as well. PAST MEDICAL HISTORY: Reviewed. REVIEW OF SYSTEMS: CARDIOVASCULAR: As mentioned earlier. RESPIRATORY: As mentioned earlier. GI: As mentioned earlier. : No dysuria. NERVOUS SYSTEM: No numbness or weakness. CURRENT MEDICATIONS: Reviewed and include: 1. Tylenol p.r.n. 2. Eliquis 5 mg p.o. b.i.d. 3. Rocephin 1 g daily. 4. Lasix 20 mg q.h.s. 6. Dilaudid 0.5 mg q.4 p.r.n. 7. Synthroid 150 mg p.o. daily. 8. Ativan 0.5 mg q.6 p.r.n. 9. Melatonin. 10.Narcan. 11.Zofran. 12.Percocet. 13.Protonix. 14.Lyrica. 15.Doses reviewed. PHYSICAL EXAM: Patient alert and oriented x3. Pulse 81, blood pressure 116/69, respirations 16, temp 98.1, pulse ox 98% on room air. HEENT: Conjunctivae normal. NECK: No jugular venous distension. CARDIOVASCULAR: S1, S2, muffled. RESPIRATORY: Breath sounds diminished at the bases, a few scattered rhonchi, no crackles. ABDOMEN: Soft, nontender. LEGS: No edema. No swelling. LABS: WBC 6.3, hemoglobin is 7.3, sodium 139, potassium 4.4 and glucose 104. ASSESSMENT: 1. Fall and severe gait dysfunction with possible acute on chronic pain syndrome and acute muscular injury. 2. Possible right lower lobe pneumonia, community-acquired. 3. History of spinal stenosis. Rule out acute exacerbation. 4. History of degenerative joint disease. 5. Super morbid obesity with body mass index of 64. 6. History of atrial fibrillation, paroxysmal. 7. History of congestive heart failure, ejection fraction unknown. 8. Chronic obstructive pulmonary disease. 9. History of myocardial infarction. 10.History of pneumonia. 11.History of pulmonary embolism. 12.History of chronic kidney disease. 13.History of hypothyroidism. 14.History of colitis. 15.History of irritable bowel syndrome. 16.History of incontinence. 17.History of cervical cancer. 18.History of esophageal ulcer with Scales's esophagus. 19.History of hiatal hernia. 20.History of herniated disk T2 to T3-4 and L5-S1. 21.History of fractured sternum. 22.History of hypothyroidism. 23.History of nephrolithiasis. 24.History of degenerative joint disease. 25.History of Clostridium difficile colitis. 26.History of anxiety, depression. 27.FULL CODE. RECOMMENDATION: Recommend to continue current medications, continue to monitor symptomatic treatment. At this time I would recommend PT, OT evaluation. Continue with the antibiotics, doses reviewed. Incentive spirometry. Guarded prognosis because of multiple complex medical issues and further recommendations to follow. MMODL / IJN: [id number] / MTDD
[2019-11-10] MEDS: FUROSEMIDE 20 MG TAB PO SCH (21:46)
[2019-11-10] MEDS: MELATONIN 5 MG TABLET PO SCH (21:46)
[2019-11-11] MEDS: SODIUM CHLORIDE 0.9% 1,000 ML IV SCH (01:11)
[2019-11-11] MEDS: HYDROmorphone 0.5 MG/0.5 ML SYRINGE IVP PRN ×3 (03:58→12:35)
[2019-11-11] MEDS: LEVOTHYROXINE 75 MCG TAB PO SCH (06:45)
[2019-11-11] MEDS: PANTOPRAZOLE 40 MG TABLET PO SCH (07:27)
[2019-11-11] MEDS: PREGABALIN 50 MG CAP PO SCH (07:28)
[2019-11-11] MEDS: FUROSEMIDE 80 MG TAB PO SCH (07:28)
[2019-11-11] MEDS: oxyCODONE-APAP 7.5-325MG 1 EACH TAB PO PRN ×2 (07:31→14:26)
[2019-11-11] MEDS: APIXABAN 5 MG TAB PO SCH (07:56)
--- NOTE | 2019-11-11 11:52 | P.DS ---
Providers Date of admission: 11/08/19 13:23 Attending physician: Carine Miller Consults: 11/07/19 19:11 Consult Physician Routine Consulting Provider: Shaniqua Penn Consult Reason/Comments: back pain Do you want consulting provider notified?: Yes [facility] Course: Final diagnosis Fall and severe gait dysfunction with a possible acute on chronic pain syndrome and acute muscular injury Possible right lower lobe pneumonia recommend to get History of lumbar spinal stenosis rule out acute exacerbation history DJD Severe super morbid obesity body mass and 64 History of atrial fibrillation proximal History of CHF ejection fraction unknown COPD History of myocardial infarction History of pneumonia History of pulmonary embolism chronic kidney disease Stage II History of hypothyroidism History of colitis History of irritable bowel syndrome history of incontinence History of cervical cancer Esophageal ulcer with the Scales's esophagitis History of hiatal hernia. History of herniated disc t2 to T3 4 and L5-S1 History of fracture sternum* History of hypothyroidism History of nephrolithiasis and History DJD History of C. difficile colitis History of anxiety depression full code Discharge disposition This patient be discharged [facility] total time taken 35 minutes History of present illness This 69-year-old woman with a past medical history multiple medical was admitted to the [facility] weakness and features of pneumonia treated with the bronchodilators and antibiotics the patient had covid 19 testing in [place] which was negative recently. The patient was significantly PTOT evaluated and patient be discharged in a stable condition with guarded prognosis [facility] [place] under Dr. Ortega I recommended follow-up with Dr. garcia after discharge On exam vitals are stable cardio S1 and S2 normal respirator system few scattered rhonchi and crackles abdomen soft nontender no system diffusely weak Please refer to the discharge reconciliation list. Medications Patient Condition at Discharge: Fair Plan - Discharge Summary Discharge Rx Participant: No New Discharge Prescriptions: New LORazepam [Ativan] 0.5 mg PO Q6HR PRN #10 tab PRN Reason: Anxiety Cefuroxime Axetil [Ceftin] 500 mg PO BID 3 Days #6 tab Folic Acid 1 mg PO DAILY #30 tablet Multivitamins, Thera [Multivitamin] 1 tab PO DAILY #30 tablet Thiamine [Vitamin B-1] 100 mg PO DAILY #30 tablet Continue Omeprazole [PriLOSEC] 20 mg PO AC-BID Levothyroxine Sodium [Synthroid] 150 mcg PO DAILY Apixaban [Eliquis] 5 mg PO BID Pregabalin 50 mg PO TID Furosemide [Lasix] 20 mg PO HS Furosemide [Lasix] 80 mg PO DAILY Melatonin 10 mg PO HS Changed oxyCODONE-APAP 7.5-325MG [Percocet 7.5-325 mg] 1 tab PO Q6H PRN #10 tab PRN Reason: Pain Discharge Medication List Omeprazole [PriLOSEC] 20 mg PO AC-BID 04/19/18 [History] Levothyroxine Sodium [Synthroid] 150 mcg PO DAILY 06/18/18 [History] Apixaban [Eliquis] 5 mg PO BID 11/07/19 [History] Furosemide [Lasix] 20 mg PO HS 11/07/19 [History] Furosemide [Lasix] 80 mg PO DAILY 11/07/19 [History] Melatonin 10 mg PO HS 11/07/19 [History] Pregabalin 50 mg PO TID 11/07/19 [History] Cefuroxime Axetil [Ceftin] 500 mg PO BID 3 Days #6 tab 11/11/19 [Rx] Folic Acid 1 mg PO DAILY #30 tablet 11/11/19 [Rx] LORazepam [Ativan] 0.5 mg PO Q6HR PRN #10 tab 11/11/19 [Rx] Multivitamins, Thera [Multivitamin] 1 tab PO DAILY #30 tablet 11/11/19 [Rx] Thiamine [Vitamin B-1] 100 mg PO DAILY #30 tablet 11/11/19 [Rx] oxyCODONE-APAP 7.5-325MG [Percocet 7.5-325 mg] 1 tab PO Q6H PRN #10 tab 11/11/19 [Rx] Follow up Appointment(s)/Referral(s): Jorje Domingo MD [Primary Care Provider] - 1-2 days Activity/Diet/Wound Care/Special Instructions: Diet cardiac Activity as tolerated Please arrange follow-up with Dr. garcia after discharge Follow-up with Dr. Ortega in the [facility]
[2019-11-11 15:08] VITALS: BP 125/80; PULSE 97; RESP 18; TEMP 98.1
== END 2019-11-11 14:36 | DRG 91 ==
LOC: EC 16:35 → 6NMEDSUR 19:12 → OBSVTOIN 11-08 13:23
PROVIDERS: ADMIT Hospitalist; ATTEND Hospitalist
DX: G89.4 Chronic pain syndrome (principal); J18.9 Pneumonia, unspecified organism; Z68.44 Body mass index [BMI] 60.0-69.9, adult; T14.8XXA Other injury of unspecified body region, initial encounter; E03.9 Hypothyroidism, unspecified; E66.01 Morbid (severe) obesity due to excess calories; I25.2 Old myocardial infarction; I48.0 Paroxysmal atrial fibrillation; I50.9 Heart failure, unspecified; J44.9 Chronic obstructive pulmonary disease, unspecified; K22.70 Barrett's esophagus without dysplasia; M13.0 Polyarthritis, unspecified; M54.10 Radiculopathy, site unspecified; N18.2 Chronic kidney disease, stage 2 (mild); R32 Unspecified urinary incontinence; W01.0XXA Fall on same level from slipping, tripping and stumbling without subsequent striking against object, initial encounter; Y92.009 Unspecified place in unspecified non-institutional (private) residence as the place of occurrence of the external cause; Z79.01 Long term (current) use of anticoagulants; Z79.890 Hormone replacement therapy; Z79.899 Other long term (current) drug therapy; Z80.1 Family history of malignant neoplasm of trachea, bronchus and lung; Z82.49 Family history of ischemic heart disease and other diseases of the circulatory system; Z85.41 Personal history of malignant neoplasm of cervix uteri; Z86.19 Personal history of other infectious and parasitic diseases; Z86.59 Personal history of other mental and behavioral disorders; Z86.711 Personal history of pulmonary embolism; Z87.01 Personal history of pneumonia (recurrent); Z87.19 Personal history of other diseases of the digestive system; Z90.710 Acquired absence of both cervix and uterus; Z96.653 Presence of artificial knee joint, bilateral; Z88.8 Allergy status to other drugs, medicaments and biological substances; Z88.6 Allergy status to analgesic agent; Z88.1 Allergy status to other antibiotic agents; Z91.041 Radiographic dye allergy status
CPT/HCPCS: 36415; 70450; 71045; 72125; 72128; 72131; 80048; 85025; 85610; 85652; 85730; 86140; 93005; 96374; 96375; 96376; 99285

== ENCOUNTER 2020-02-11 12:01 | Observation (INO) | payer MEDICARE, OTHER ==
[2020-02-11 12:15] LABS: Glucose,Whole Blood 126 mg/dL (75-99)
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
[2020-02-11] MEDS ORDERED: ONDANSETRON 4 MG/2 ML VIAL IVP STA (12:35)
[2020-02-11] MEDS ORDERED: MORPHINE SULFATE 2 MG/ML SYRINGE IVP STA (12:35)
[2020-02-11 12:58] LABS: Basophils # (A) 0.1 k/uL (0-0.2); Basophils % (A) 1 %; Eosinophils # (A) 0.3 k/uL (0-0.7); Eosinophils % (A) 3 %; HCT 34.8 % (34.0-46.0); HGB 11.1 gm/dL (11.4-16.0); Hypochromasia Slight; Lymphocytes % (A) 12 %; MCH 25.8 pg (25.0-35.0); MCV 80.4 fL (80.0-100.0); Mean Platelet Volume 6.7; Monocytes # (A) 0.3 k/uL (0-1.0); Monocytes % (A) 3 %; Neutrophils # (A) 6.9 k/uL (1.3-7.7); Neutrophils % (A) 81 %; Platelet Count 250 k/uL (150-450); RBC 4.32 m/uL (3.80-5.40); RDW 15.3 % (11.5-15.5); WBC 8.5 k/uL (3.8-10.6)
[2020-02-11 13:08] LABS: INR 0.9 (<1.2); Partial Thromboplastin Time 22.8 sec (22.0-30.0); Prothrombin Time 9.9 sec (9.0-12.0)
--- NOTE | 2020-02-11 13:20 | CT ---
EXAMINATION TYPE: CT brain wo con DATE OF EXAM: 02/11/2020 COMPARISON: 11/08/2019 HISTORY: episode of incoherence CT DLP: 1099.[address] of the brain was performed. The ventricles, basal cisterns and sulci overlying the cerebral convexities demonstrate mild enlargem ent. There is no evidence for intracranial hemorrhage or sulcal effacement. There is decreased attenuation about the periventricular white matter and deep white matter of both c erebral hemispheres, compatible with chronic small vessel ischemia. Differential diagnosis does inclu de demyelination. No mass effects are seen.No midline shift. Osseous calvarium is intact. If symptoms persist consider MRI. IMPRESSION: 1. Age related atrophic and chronic small vessel ischemic change without acute intracranial process s een at this time.
--- NOTE | 2020-02-11 13:21 | XR ---
EXAMINATION TYPE: XR chest 2V DATE OF EXAM: 02/11/2020 COMPARISON: November 09, 2019 HISTORY: Shortness of breath TECHNIQUE: Frontal and lateral views of the chest are obtained. FINDINGS: Scattered senescent parenchymal changes noted. Hyperinflation compatible with COPD. No evidence for infiltrate. No evidence for atelectasis. Heart size is stable. Mediastinal structures are stable and grossly unremarkable. Unfolding of the thoracic aorta. No evidence for hilar prominence. Degenerative changes dorsal spine. IMPRESSION: 1. No evidence for acute pulmonary disease.
[2020-02-11 13:22] LABS: ALT 19 U/L (4-34); AST 20 U/L (14-36); African American GFR (CKD) >90 (>60 ml/min/1.73 sqM); Albumin 3.7 g/dL (3.5-5.0); Alkaline Phosphatase 124 U/L (38-126); Anion Gap 8 mmol/L; Blood Urea Nitrogen 12 mg/dL (7-17); Calcium 9.3 mg/dL (8.4-10.2); Carbon Dioxide 25 mmol/L (22-30); Chloride 107 mmol/L (98-107); Glucose 113 mg/dL (74-99); Magnesium 1.7 mg/dL (1.6-2.3); Non-African American GFR(CKD) >90 (>60 ml/min/1.73 sqM); Potassium 4.1 mmol/L (3.5-5.1); Sodium 140 mmol/L (137-145); Total Bilirubin 0.6 mg/dL (0.2-1.3); Total Protein 6.1 g/dL (6.3-8.2)
[2020-02-11] MEDS: oxyCODONE-APAP 7.5-325MG 1 EACH TAB PO PRN (17:28)
[2020-02-11] MEDS ORDERED: oxyCODONE-APAP 7.5-325MG 1 EACH TAB PO STA (19:26)
[2020-02-11] MEDS: MELATONIN 5 MG TABLET PO SCH (20:22)
[2020-02-11] MEDS: PREGABALIN 50 MG CAP PO SCH (20:22)
[2020-02-11] MEDS: APIXABAN 5 MG TAB PO SCH (20:22)
[2020-02-12] MEDS: oxyCODONE-APAP 7.5-325MG 1 EACH TAB PO PRN ×4 (02:09→22:39)
[2020-02-12] MEDS: LEVOTHYROXINE 75 MCG TAB PO SCH (05:51)
[2020-02-12] MEDS: PREGABALIN 50 MG CAP PO SCH ×2 (08:48→21:58)
[2020-02-12] MEDS: APIXABAN 5 MG TAB PO SCH ×2 (08:48→21:58)
[2020-02-12] MEDS: PANTOPRAZOLE 40 MG TABLET PO SCH ×2 (10:33→17:45)
[2020-02-12] MEDS ORDERED: MORPHINE SULFATE 4 MG/ML SYRINGE IVP STA (11:54)
[2020-02-12 12:14] VITALS: BMI 65.6
[2020-02-12] MEDS: TRIAMCINOLONE 0.1% CREAM 80 GM TUBE TOPICAL PRN ×2 (13:15→22:38)
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
[2020-02-12] MEDS ORDERED: oxyCODONE-APAP 7.5-325MG 1 EACH TAB PO SCH (16:45)
[2020-02-12 18:10] LABS: Appearance,Urine Clear (Clear); Bacteria,Urine Few /hpf; Bilirubin,Urine Negative (Negative); Blood,Urine Negative (Negative); Color,Urine Yellow; Glucose,Urine (UA) Negative (Negative); Hyaline Casts,Urine 1 /lpf (0-2); Ketones,Urine Negative (Negative); Leukocyte Esterase,Urine Small (Negative); Mucus,Urine Rare /hpf; Nitrite,Urine Positive (Negative); Protein,Urine Negative (Negative); RBC,Urine 2 /hpf (0-5); Specific Gravity,Urine 1.022 (1.001-1.035); Squamous Epithelial Cell,Urine <1 /hpf (0-4); Urobilinogen,Urine <2.0 mg/dL (<2.0); WBC,Urine 5 /hpf (0-5)
[2020-02-12] MEDS: MELATONIN 5 MG TABLET PO SCH (21:58)
[2020-02-13] MEDS: oxyCODONE-APAP 7.5-325MG 1 EACH TAB PO PRN ×4 (05:26→22:20)
[2020-02-13] MEDS: LEVOTHYROXINE 75 MCG TAB PO SCH (06:51)
[2020-02-13] MEDS: PANTOPRAZOLE 40 MG TABLET PO SCH ×2 (06:51→17:05)
--- NOTE | 2020-02-13 11:11 | P.PN ---
Subjective Progress Note Date: 02/12/20 Principal diagnosis: Acute TIA Patient is 69-year-old female with a known history of paroxysmal atrial fibrillation on anticoagulation with Eliquis, history of CVA/TIA, recent TIA admitted at [facility] status post stroke workup, COPD/asthma, history of [place], hypothyroidism, morbid obesity and chronic back pain and herniated disc and other multiple medical problems came to ER with complaints of slurred speech and confusion and also right upper extremity weakness. Patient says that she woke up around 5 AM and noticed she was having right arm weakness lasted for about half an hour and then subsided. Patient says that she also had slurred speech and difficulty to talk at the time. Patient went back to sleep and woke up and she had no more strokelike symptoms however patient doesn't feel right and complaints of feeling weak and not by herself. Denied any leg weakness. Denied any nausea vomiting or abdominal pain. Currently denied any difficulty in swallowing of slurred speech. No headache or dizziness or lightheadedness. No fever no chills. No chest pain or shortness of breath. Patient does have history of chronic back pain and requesting pain medications. EKG showed normal sinus rhythm. Chest x-ray showed no acute pulmonary process. CT head showed age-related atrophic and chronic small [place] ischemic changes without acute intracranial process seen at this time. Laboratory data showed hemoglobin 11.1, WBC 8.4 and platelets 250 Magnesium 1.7 ProBNP 70 and troponin 1 negative LDL 114 Patient refused to get MRI and says that she is claustrophobic. 02/12/2020 Patient says that her right hand weakness is improved. Patient is complaining of severe back pain and requesting IV pain medications. Patient is currently on Percocet 7.5 and morphine IV 14 mg was given. We'll avoid narcotics IV pain medications. Patient refused to get MRI. Neurology consult is pending for tomorrow. Otherwise patient did have full stroke workup recently at [facility]. Patient will be continued on current medications and follow-up TSH, B12, folate and A1c level. Urinalysis will be done. Current medications reviewed. Objective - Vital Signs Vital signs: Vital Signs Temp 98.3 F 02/12/20 15:16 Pulse 88 02/12/20 15:16 Resp 18 02/12/20 15:16 BP 132/80 02/12/20 15:16 Pulse Ox 93 L 02/12/20 15:16 Intake & Output 02/12/20 02/12/20 02/13/20 06:59 18:59 06:59 Intake Total 237 Balance 237 Weight 162.7 kg 162.7 kg Intake: Oral 237 Other: # Voids 1 1 # Bowel Movements 1 - Exam PHYSICAL EXAMINATION: Patient is lying in the bed comfortably, no acute distress, awake alert and oriented. Morbidly obese.. HEENT: Normocephalic. Neck is supple. Pupils reactive. Nostrils clear. Oral cavity is moist. Ears reveal no drainage. Neck reveals no JVD, carotid bruits, or thyromegaly. CHEST EXAMINATION: Trachea is central. Symmetrical expansion. Bibasilar diminished air entry. Lung bah clear to auscultation and percussion. CARDIAC: Normal S1, S2 with no gallops. Mild systolic murmur ABDOMEN: Soft. Bowel sounds normal. No organomegaly. No abdominal bruits. Extremities: reveal no edema. No clubbing or cyanosis Neurologically awake, alert, oriented x3 with well-coordinated movements. Muscle strength 5 out of 5 in all 4 extremities. 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 No other gross focal deficits noted Skin: No rash or skin lesions. Psychiatric: Coperative. Nonsuicidal Musculoskeletal: No joint swelling or deformity. Normal range of motion. - Labs CBC & Chem 7: 02/11/20 12:50 02/11/20 12:50 Labs: Abnormal Lab Results - Last 24 Hours (Table) 02/12/20 02/12/20 Range/Units 05:28 18:00 Triglycerides 274 H (<150) mg/dL Cholesterol 212 H (<200) mg/dL LDL Cholesterol, Calc 114 H (0-99) mg/dL Urine Nitrite Positive H (Negative) Ur Leukocyte Esterase Small H (Negative) Urine Bacteria Few H (None) /hpf Urine Mucus Rare H (None) /hpf Assessment and Plan Assessment: Right upper extremity weakness associated slurred speech and confusion resolved now. Possible TIA. Recent history of TIA, admitted at [facility] status post stroke workup. negative COPD/asthma stable Hyperlipidemia with LDL 104 History of CVA/TIA Morbid obesity BMI 65.6 History of [place] no history of PCI History of PE Hypothyroidism Urinary incontinence History of multiple UTIs History of uterine and cervical cancer with surgery History of peptic ulcer disease and is aphasic ulcers and Scales's esophagus Chronic back pain Herniated disc T2 to T3 and 4, L5 and L4 S1 History of nephrolithiasis Chronic bilateral lower activity swelling Generalized osteoarthritis Anxiety/depression No prior history of smoking Chronic pain syndrome DVT prophylaxis Plan: Patient be continued on telemetry monitoring. Continue with stroke precautions and neuro checks. CT head is negative. Patient refuses to get MRI at this time. Patient says that she is ALLERGIC to aspirin and NSAID's. Neurology was consulted. Patient is currently able to tolerate oral diet and no swallowing difficulty. Patient is requesting IV pain medications otherwise. Patient follows with pain clinic. Continue with the Percocet 7.5 3 times a day and avoid IV narcotic pain medications. Further recommendations based on clinical course. Prognosis is guarded. Time with Patient: Greater than 30
[2020-02-13] MEDS: PREGABALIN 50 MG CAP PO SCH ×2 (11:12→21:20)
[2020-02-13] MEDS: APIXABAN 5 MG TAB PO SCH ×2 (11:12→21:20)
[2020-02-13] MEDS: ALPRAZolam 0.25 MG TAB PO PRN ×2 (13:34→21:20)
[2020-02-13] MEDS: FUROSEMIDE 80 MG TAB PO SCH (13:34)
[2020-02-13] MEDS ORDERED: FUROSEMIDE 20 MG TAB PO SCH (17:00)
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
[2020-02-13] MEDS: MELATONIN 5 MG TABLET PO SCH (21:19)
[2020-02-14 00:13] VITALS: RESP 19
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
[2020-02-14] MEDS: oxyCODONE-APAP 7.5-325MG 1 EACH TAB PO PRN ×2 (04:04→11:46)
[2020-02-14] MEDS: ALPRAZolam 0.25 MG TAB PO PRN (06:01)
[2020-02-14] MEDS: PANTOPRAZOLE 40 MG TABLET PO SCH (06:01)
[2020-02-14] MEDS: LEVOTHYROXINE 75 MCG TAB PO SCH (06:01)
[2020-02-14] MEDS ORDERED: CYANOCOBALAMIN 500 MCG TAB PO SCH (09:00)
[2020-02-14] MEDS ORDERED: CYANOCOBALAMIN 1,000 MCG/ML 1 ML VIAL IM ONE (09:00)
[2020-02-14] MEDS: APIXABAN 5 MG TAB PO SCH (09:18)
[2020-02-14] MEDS: FUROSEMIDE 80 MG TAB PO SCH (09:18)
[2020-02-14] MEDS: PREGABALIN 50 MG CAP PO SCH (09:18)
[2020-02-14 09:29] VITALS: BP 114/64; PULSE 88; TEMP 97.7
--- NOTE | 2020-02-14 15:14 | P.PN ---
Subjective Progress Note Date: 02/14/20 Principal diagnosis: Transient ischemic attack The patient was seen at bedside today and states that she is frustated that she will be discharged. She said that she was about to have EEG but was restless. She denies of new weakness, numbness or new neurological deficit. Per the nanotechnologist, the patient was restless and notified the creative technologist she does not need another EEG. Yesterday she notified me that she does not have seizure and was recultant of having the test. Objective - Vital Signs Vital signs: Vital Signs Temp 97.7 F 02/14/20 09:20 Pulse 88 02/14/20 09:20 Resp 19 02/14/20 09:20 BP 114/64 02/14/20 09:20 Pulse Ox 94 L 02/14/20 09:20 Intake & Output 02/13/20 02/14/20 02/14/20 18:59 06:59 18:59 Intake Total 120 240 Output Total 900 1650 1200 Balance -780 -1650 -960 Weight 163.1 kg Intake: Oral 120 240 Output: Urine 900 1650 1200 - Exam Neurological: Higher mental function: The patient is awake, alert, oriented to self, place and time. Following simple and complex commands. No aphasia or neglect. Cranial Nerves: The pupils are round, equal, reactive to light and accomodation. EOM intact and no nystagmus. Normal facial sensation to touch throughout. No facial weakness noted. Hearing is normal to hand rub. No dysarthia. Motor: Gait is defered. The motor strength was limited because of patient pain but has 4-/5 over the right upper extremity and 4+/5 over the left upper extremity. In lower extremity it was 3-4/5 bilaterally. Normal tone and bulk. Cerebellum: Normal finger to nose bilaterally and no dysmetria. Reflexes: Could not be assessed because of patient was in pain. Plantars: Mute bilaterally. - Labs CBC & Chem 7: 02/11/20 12:50 02/11/20 12:50 Labs: Microbiology - Last 24 Hours (Table) 02/13/20 14:20 Urine Culture - Preliminary Urine,Voided Assessment and Plan Assessment: This is a 69 y/0 female with history of TIA, paroxysmal atrial fibrillation on Eliquis 5mg bid who On this hospital visit, she present with right hand weakness, slurring of her speech which resolve. she feels she is back to baseline. About two weeks ago had a TIA episode and was exactly similar to this per patient and her son and had stroke work-up at [facility] and it was negative according to patient. For these two episodes she had a headache night before, in the middle of occipital area then slep and next day she presented with this. But for both of these episode she does not recall the episode of her having weakness or slurring of speech but is going what her son is telling her. She denies urinary, bowel incontinence or tongue bite. She had CT head and was negative for acute ischemia. She could not get MRI Brain because she is claustrophobic. The 2 episodes she is having seems transient ischemic attack. Differential could be because of seizure since patient does not recall the events or could be complicated migraine since she had a headache night before episode. Plan: The stroke work-up: CT head showed age-related atrophic and chronic small vessel changes without acute intracranial process. Cannot get MRI Brain since patient is claustrophic. LDL: 114, cholestrol 212, HDL 43, TG 274. HbA1c: 6.0. TSH: 2.95 EKG: Normal sinus rhtyhm and ventricular rate 87. Patient had a transthoracic echocardiogram on 12/25/2018 showed ejection fraction of 55-60%. There is moderate concentric left ventricle hypertrophy. Atrial was not well visualized. Consider repeating a transthoracic echocardiogram since the patient's having repeated episodes. PT/OT and LEATHER PIECE INSPECTOR consulted. We attempted on getting EEG but patient was restless. She is fixated on saying that she does not have seizure. Patient and her son were notified to consider getting as outpatient. Patient was notified that is she continues to have headache episode to keep diary of headache and get management with outpatient neurologist. Low vitamin B12 (188): Patient will be placed on Vitamin B12. 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 The patient is on elaquis 5mg bid since has hx of paroxymal atrial fibrillation. Patient state cannot get ASA since had episode of GI bleed when on ASA and Xareltto and fixated of not being on ASA. Consider adding Plavix to Eliquis for secondary stroke prevention. Tunde Shoemaker MD Neurohospitalist Time with Patient: Less than 30
== END 2020-02-14 14:02 | disposition home or self-care (01) ==
LOC: EC 12:01 → 3SCARD 14:40
PROVIDERS: ADMIT Internal Medicine; ATTEND Internal Medicine
DX: R53.1 Weakness (principal); R47.81 Slurred speech; R41.0 Disorientation, unspecified; Z86.73 Personal history of transient ischemic attack (TIA), and cerebral infarction without residual deficits; M79.89 Other specified soft tissue disorders; I48.0 Paroxysmal atrial fibrillation; E78.5 Hyperlipidemia, unspecified; I50.9 Heart failure, unspecified; J44.9 Chronic obstructive pulmonary disease, unspecified; I25.2 Old myocardial infarction; M19.90 Unspecified osteoarthritis, unspecified site; K22.70 Barrett's esophagus without dysplasia; K44.9 Diaphragmatic hernia without obstruction or gangrene; E03.9 Hypothyroidism, unspecified; N28.9 Disorder of kidney and ureter, unspecified; K58.9 Irritable bowel syndrome, unspecified; R32 Unspecified urinary incontinence; Z85.42 Personal history of malignant neoplasm of other parts of uterus; R01.1 Cardiac murmur, unspecified; G89.4 Chronic pain syndrome; M51.24 Other intervertebral disc displacement, thoracic region; M51.26 Other intervertebral disc displacement, lumbar region; F41.9 Anxiety disorder, unspecified; F32.9 Major depressive disorder, single episode, unspecified; Z87.442 Personal history of urinary calculi; L30.9 Dermatitis, unspecified; Z87.81 Personal history of (healed) traumatic fracture; R20.0 Anesthesia of skin; R20.2 Paresthesia of skin; Z86.19 Personal history of other infectious and parasitic diseases; E66.01 Morbid (severe) obesity due to excess calories; Z68.44 Body mass index [BMI] 60.0-69.9, adult; Z90.49 Acquired absence of other specified parts of digestive tract; Z98.890 Other specified postprocedural states; Z87.01 Personal history of pneumonia (recurrent); Z86.711 Personal history of pulmonary embolism; Z87.440 Personal history of urinary (tract) infections; Z85.41 Personal history of malignant neoplasm of cervix uteri; Z87.19 Personal history of other diseases of the digestive system; Z90.710 Acquired absence of both cervix and uterus; F40.240 Claustrophobia; Z87.11 Personal history of peptic ulcer disease; Z96.653 Presence of artificial knee joint, bilateral; Z96.642 Presence of left artificial hip joint; Z82.3 Family history of stroke; Z82.49 Family history of ischemic heart disease and other diseases of the circulatory system; Z80.1 Family history of malignant neoplasm of trachea, bronchus and lung; Z86.2 Personal history of diseases of the blood and blood-forming organs and certain disorders involving the immune mechanism; Z80.52 Family history of malignant neoplasm of bladder; Z79.01 Long term (current) use of anticoagulants; Z79.890 Hormone replacement therapy; Z79.899 Other long term (current) drug therapy; Z79.891 Long term (current) use of opiate analgesic; Z88.5 Allergy status to narcotic agent; Z88.8 Allergy status to other drugs, medicaments and biological substances; Z88.6 Allergy status to analgesic agent; Z91.041 Radiographic dye allergy status
CPT/HCPCS: 96376; 96365; 96372; 96375; 99285; 36415; 93005; 97535; 97166; 82747; 83880; 80061; 80053; 84443; 82607; 83605; 83735; 84484 ×3; 85025; 85610; 85730; 81001; 87086; 87077; 87186; 83036; 71046; 70450; G0378 ×4; J2270 ×2; J3420; J2405; J0696 ×2

== ENCOUNTER 2020-05-20 12:33 | Observation (INO) | payer MEDICARE, OTHER ==
[2020-05-20 12:40] VITALS: RESP 18
[2020-05-20] MEDS ORDERED: IPRATROPIUM-ALBUTEROL 3 ML NEB INHALATION STA (12:51)
[2020-05-20] MEDS ORDERED: PANTOPRAZOLE 40 MG/10 ML VIAL IVP STA (12:51)
[2020-05-20] MEDS ORDERED: ONDANSETRON 4 MG/2 ML VIAL IVP STA (12:51)
[2020-05-20] MEDS ORDERED: SODIUM CHLORIDE 0.9% 1,000 ML IV STA (12:51)
[2020-05-20] MEDS ORDERED: SODIUM CHLORIDE 0.9% 500 ML 500 ML IV STA (12:51)
[2020-05-20] MEDS ORDERED: MORPHINE SULFATE 4 MG/ML SYRINGE IVP STA (13:03)
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
[2020-05-20 13:29] LABS: Basophils % (A) 0 %; Eosinophils # (A) 0.1 k/uL (0-0.7); Eosinophils % (A) 2 %; HCT 38.1 % (34.0-46.0); HGB 11.9 gm/dL (11.4-16.0); Hypochromasia Slight; Lymphocytes # (A) 1.1 k/uL (1.0-4.8); Lymphocytes % (A) 13 %; MCH 25.5 pg (25.0-35.0); MCHC 31.1 g/dL (31.0-37.0); MCV 82.1 fL (80.0-100.0); Mean Platelet Volume 7.1; Monocytes # (A) 0.3 k/uL (0-1.0); Monocytes % (A) 4 %; Neutrophils # (A) 6.6 k/uL (1.3-7.7); Neutrophils % (A) 80 %; Platelet Count 320 k/uL (150-450); RBC 4.65 m/uL (3.80-5.40); RDW 15.2 % (11.5-15.5); WBC 8.3 k/uL (3.8-10.6)
[2020-05-20 13:35] LABS: Albumin 4.2 g/dL (3.5-5.0); Calcium 9.4 mg/dL (8.4-10.2); Total Bilirubin 0.9 mg/dL (0.2-1.3)
[2020-05-20 13:44] LABS: Prothrombin Time 10.1 sec (9.0-12.0)
[2020-05-20 13:49] LABS: Partial Thromboplastin Time 21.6 sec (22.0-30.0)
[2020-05-20 13:54] LABS: Potassium 4.8 mmol/L (3.5-5.1)
--- NOTE | 2020-05-20 14:48 | XR ---
EXAMINATION TYPE: XR abdomen acute w cxr DATE OF EXAM: 05/20/2020 COMPARISON: 04/20/2019 HISTORY: Short of breath. GI bleeding. TECHNIQUE: 5 views FINDINGS: There is no heart failure nor confluent pneumonic infiltrate. Thoracic aorta is atheromatou s. Costophrenic angles are clear. There is no sign of intestinal obstruction or pneumoperitoneum. The re is left hip prosthesis. There are numerous phleboliths in the pelvis on the left side. There is no evidence of a mass. Exam limited by patient's size. IMPRESSION: No active cardiopulmonary disease. Nonacute abdomen.
[2020-05-20] MEDS ORDERED: SODIUM CHLORIDE 0.9% 1,000 ML IV SCH (15:00)
[2020-05-20] MEDS: methylPREDNISolone SOD SUCCI 125 MG/2 ML VIAL IV STA ×2 (15:24→15:28)
[2020-05-20] MEDS: MORPHINE SULFATE 4 MG/ML SYRINGE IVP PRN ×2 (17:31→20:33)
[2020-05-20] MEDS ORDERED: DICYCLOMINE 10 MG CAP PO PRN (19:29)
[2020-05-20] MEDS: IPRATROPIUM-ALBUTEROL 3 ML NEB INHALATION SCH (19:47)
[2020-05-20] MEDS ORDERED: MELATONIN 5 MG TABLET PO STA (19:57)
[2020-05-20] MEDS: ONDANSETRON 4 MG/2 ML VIAL IVP PRN (20:33)
[2020-05-20] MEDS: PREGABALIN 50 MG CAP PO SCH (20:34)
[2020-05-20] MEDS: oxyCODONE-APAP 7.5-325MG 1 EACH TAB PO PRN (21:33)
[2020-05-20] MEDS: methylPREDNISolone SOD SUCCI 125 MG/2 ML VIAL IV SCH (23:11)
[2020-05-21] MEDS: MORPHINE SULFATE 4 MG/ML SYRINGE IVP PRN ×3 (02:07→11:00)
[2020-05-21] MEDS: ONDANSETRON 4 MG/2 ML VIAL IVP PRN ×2 (02:08→08:14)
[2020-05-21] MEDS: methylPREDNISolone SOD SUCCI 125 MG/2 ML VIAL IV SCH ×2 (06:30→12:30)
[2020-05-21] MEDS ORDERED: LEVOTHYROXINE 75 MCG TAB PO SCH (06:30)
[2020-05-21 07:19] LABS: Basophils # (A) 0.1 k/uL (0-0.2); Basophils % (A) 1 %; Eosinophils # (A) 0.3 k/uL (0-0.7); Eosinophils % (A) 4 %; HCT 35.7 % (34.0-46.0); HGB 11.2 gm/dL (11.4-16.0); Hypochromasia Moderate; Lymphocytes # (A) 1.4 k/uL (1.0-4.8); Lymphocytes % (A) 22 %; MCH 26.4 pg (25.0-35.0); MCHC 31.3 g/dL (31.0-37.0); MCV 84.4 fL (80.0-100.0); Mean Platelet Volume 6.8; Monocytes # (A) 0.4 k/uL (0-1.0); Monocytes % (A) 6 %; Neutrophils # (A) 4.1 k/uL (1.3-7.7); Neutrophils % (A) 65 %; Platelet Count 293 k/uL (150-450); RBC 4.23 m/uL (3.80-5.40); RDW 15.3 % (11.5-15.5); WBC 6.3 k/uL (3.8-10.6)
[2020-05-21] MEDS: IPRATROPIUM-ALBUTEROL 3 ML NEB INHALATION SCH ×2 (07:52→11:20)
[2020-05-21] MEDS: PREGABALIN 50 MG CAP PO SCH (08:13)
[2020-05-21] MEDS: oxyCODONE-APAP 7.5-325MG 1 EACH TAB PO PRN (08:14)
[2020-05-21] MEDS ORDERED: FUROSEMIDE 80 MG TAB PO SCH (09:00)
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
[2020-05-21 09:51] VITALS: BP 124/62; PULSE 76; TEMP 97.6
[2020-05-21] MEDS ORDERED: FUROSEMIDE 20 MG TAB PO SCH (17:00)
== END 2020-05-21 13:15 | disposition home or self-care (01) ==
LOC: EC 12:33 → 1SOBS 14:58
PROVIDERS: ADMIT Hospitalist; ATTEND Hospitalist
DX: K92.2 Gastrointestinal hemorrhage, unspecified (principal); J44.0 Chronic obstructive pulmonary disease with (acute) lower respiratory infection; J20.9 Acute bronchitis, unspecified; R10.11 Right upper quadrant pain; J44.1 Chronic obstructive pulmonary disease with (acute) exacerbation; C53.9 Malignant neoplasm of cervix uteri, unspecified; E03.9 Hypothyroidism, unspecified; F32.9 Major depressive disorder, single episode, unspecified; F41.9 Anxiety disorder, unspecified; G89.29 Other chronic pain; I25.10 Atherosclerotic heart disease of native coronary artery without angina pectoris; I25.2 Old myocardial infarction; I48.91 Unspecified atrial fibrillation; I50.9 Heart failure, unspecified; K22.70 Barrett's esophagus without dysplasia; K44.9 Diaphragmatic hernia without obstruction or gangrene; M13.0 Polyarthritis, unspecified; M19.90 Unspecified osteoarthritis, unspecified site; Z79.01 Long term (current) use of anticoagulants; R19.5 Other fecal abnormalities; Z79.02 Long term (current) use of antithrombotics/antiplatelets; Z79.890 Hormone replacement therapy; Z79.899 Other long term (current) drug therapy; Z80.1 Family history of malignant neoplasm of trachea, bronchus and lung; Z82.49 Family history of ischemic heart disease and other diseases of the circulatory system; Z85.41 Personal history of malignant neoplasm of cervix uteri; Z86.711 Personal history of pulmonary embolism; Z86.73 Personal history of transient ischemic attack (TIA), and cerebral infarction without residual deficits; Z87.11 Personal history of peptic ulcer disease; Z87.19 Personal history of other diseases of the digestive system; Z87.442 Personal history of urinary calculi; Z90.710 Acquired absence of both cervix and uterus; Z96.653 Presence of artificial knee joint, bilateral
CPT/HCPCS: 96376 ×2; 96361; 96374; 96375; 99285; 36415; 94640; 86900; 86901; 80053; 82550; 83605; 84484; 85025 ×2; 85610; 85730; 86850; 74022; G0378 ×2; J2270 ×2; J2405 ×2; C9113

== ENCOUNTER 2020-08-12 21:24 | Inpatient (IN) | payer MEDICARE, OTHER ==
[2020-08-12] MEDS ORDERED: LORazepam 2 MG/ML INJ IV STA (21:37)
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
--- NOTE | 2020-08-12 22:23 | XR ---
EXAMINATION TYPE: XR chest 1V portable DATE OF EXAM: 08/12/2020 COMPARISON: 05/20/2020 HISTORY: Short of breath TECHNIQUE: Single view FINDINGS: There is some coarse mild increased interstitial density in the lungs. There is no heart fa ilure. Heart size is normal. There are no hilar masses. There are chest leads. IMPRESSION: No active cardiopulmonary disease. Chronic mild coarse density consistent with mild fibro sis.
[2020-08-12] MEDS ORDERED: ONDANSETRON 4 MG/2 ML VIAL IVP STA (22:41)
[2020-08-12] MEDS ORDERED: HYDROcodone/APAP 5-325MG 1 EACH TAB PO STA (22:42)
[2020-08-12 22:46] LABS: Anisocytosis Slight; Basophils # (A) 0.1 k/uL (0-0.2); Basophils % (A) 1 %; Eosinophils # (A) 0.2 k/uL (0-0.7); Eosinophils % (A) 3 %; HCT 34.9 % (34.0-46.0); HGB 11.6 gm/dL (11.4-16.0); Lymphocytes % (A) 15 %; MCH 27.5 pg (25.0-35.0); MCHC 33.4 g/dL (31.0-37.0); MCV 82.2 fL (80.0-100.0); Mean Platelet Volume 6.5; Monocytes # (A) 0.4 k/uL (0-1.0); Monocytes % (A) 5 %; Neutrophils # (A) 5.1 k/uL (1.3-7.7); Neutrophils % (A) 74 %; Platelet Count 284 k/uL (150-450); RBC 4.24 m/uL (3.80-5.40); RDW 16.3 % (11.5-15.5); WBC 6.9 k/uL (3.8-10.6)
[2020-08-12 23:02] LABS: INR 0.9 (<1.2)
[2020-08-12 23:03] LABS: Partial Thromboplastin Time 23.2 sec (22.0-30.0); Prothrombin Time 10.1 sec (9.0-12.0)
[2020-08-12 23:06] LABS: ALT 28 U/L (4-34); AST 34 U/L (14-36); African American GFR (CKD) >90 (>60 ml/min/1.73 sqM); Albumin 3.7 g/dL (3.5-5.0); Alkaline Phosphatase 120 U/L (38-126); Anion Gap 4 mmol/L; Blood Urea Nitrogen 10 mg/dL (7-17); Calcium 9.4 mg/dL (8.4-10.2); Carbon Dioxide 30 mmol/L (22-30); Chloride 104 mmol/L (98-107); Glucose 117 mg/dL (74-99); LDH 495 U/L (313-618); Magnesium 1.7 mg/dL (1.6-2.3); Non-African American GFR(CKD) >90 (>60 ml/min/1.73 sqM); Potassium 4.2 mmol/L (3.5-5.1); Sodium 138 mmol/L (137-145); Total Bilirubin 0.6 mg/dL (0.2-1.3); Total Protein 6.4 g/dL (6.3-8.2)
[2020-08-12 23:17] LABS: D-Dimer 1.6 mg/L FEU (<0.60)
[2020-08-12] MEDS ORDERED: PANTOPRAZOLE 40 MG/10 ML VIAL IVP STA (23:46)
[2020-08-12] MEDS ORDERED: diphenhydrAMINE 50 MG/ML 1 ML VIAL IVP STA (23:46)
[2020-08-13] MEDS ORDERED: MORPHINE SULFATE 4 MG/ML SYRINGE IVP STA (00:02)
[2020-08-13] MEDS ORDERED: IPRATROPIUM-ALBUTEROL 3 ML NEB INHALATION STA (00:10)
[2020-08-13] MEDS ORDERED: IPRATROPIUM-ALBUTEROL 3 ML NEB INHALATION PRN (00:10)
[2020-08-13] MEDS ORDERED: methylPREDNISolone SOD SUCCI 125 MG/2 ML VIAL IV STA (00:10)
[2020-08-13] MEDS: SODIUM CHLORIDE 0.9% 1,000 ML IV SCH ×2 (00:33→23:35)
--- NOTE | 2020-08-13 02:16 | CT ---
EXAM: CT Angiography Chest With Intravenous Contrast CLINICAL HISTORY: elevated d-dimer ITS.REASON CT Reason: PE TECHNIQUE: Axial computed tomographic angiography images of the chest with intravenous contrast. CTDI is 63.484 mGy and DLP is 1009 mGy-cm. This CT exam was performed using one or more of the following dose reduction techniques: automated exposure control, adjustment of the mA and/or kV according to patient size, and/or use of iterative reconstruction technique. MIP reconstructed images were created and reviewed. COMPARISON: CT 12/15/18. FINDINGS: Artifacts: Evaluation limited due to motion and patient's body habitus. Pulmonary arteries: No large central PE. Peripheral vessels not well evaluated and small PE cannot be excluded. Aorta: No aortic aneurysm or dissection. Great vessels of aortic arch: Aberrant right subclavian artery noted. Lungs: Mild patchy atelectasis or pneumonitis. Pleural space: No significant effusion. No pneumothorax. Heart: Aortic and coronary artery atherosclerotic calcifications. Bones/joints: No acute fracture. Soft tissues: Unremarkable as visualized. Lymph nodes: Small mediastinal lymph nodes. Adrenals: Fat density right adrenal nodule. IMPRESSION: 1. Motion artifact. No large central PE. 2. Additional findings, as above.
[2020-08-13] MEDS: MORPHINE SULFATE 4 MG/ML SYRINGE IVP PRN ×5 (04:25→21:24)
[2020-08-13] MEDS: methylPREDNISolone SOD SUCCI 125 MG/2 ML VIAL IV SCH ×2 (07:32→12:35)
[2020-08-13] MEDS ORDERED: ONDANSETRON ODT 8 MG TAB.RAPDIS PO PRN (08:28)
[2020-08-13] MEDS: RIFAXIMIN 550 MG TABLET PO SCH ×2 (09:22→20:03)
[2020-08-13] MEDS: PREGABALIN 50 MG CAP PO SCH ×2 (09:23→20:03)
[2020-08-13] MEDS: LEVOTHYROXINE 75 MCG TAB PO SCH (09:23)
[2020-08-13] MEDS: FUROSEMIDE 40 MG TAB PO SCH (09:23)
[2020-08-13] MEDS: APIXABAN 5 MG TAB PO SCH ×2 (09:26→20:03)
[2020-08-13] MEDS: oxyCODONE-APAP 7.5-325MG 1 EACH TAB PO PRN ×2 (10:30→18:08)
[2020-08-13] MEDS ORDERED: ACETAMINOPHEN TAB 500 MG TAB PO PRN (15:18)
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
[2020-08-13] MEDS: FUROSEMIDE 20 MG TAB PO SCH (18:08)
[2020-08-13] MEDS: FAMOTIDINE 20 MG TAB PO SCH (20:03)
[2020-08-13] MEDS: methylPREDNISolone SOD SUCCI 40 MG/ML 1 ML VIAL IV SCH (23:34)
[2020-08-13] MEDS: MELATONIN 5 MG TABLET PO SCH (23:35)
[2020-08-14] MEDS: MORPHINE SULFATE 4 MG/ML SYRINGE IVP PRN ×5 (01:36→21:44)
[2020-08-14] MEDS: oxyCODONE-APAP 7.5-325MG 1 EACH TAB PO PRN ×3 (05:42→23:42)
[2020-08-14] MEDS: LEVOTHYROXINE 75 MCG TAB PO SCH (05:42)
[2020-08-14] MEDS: methylPREDNISolone SOD SUCCI 40 MG/ML 1 ML VIAL IV SCH ×3 (07:40→23:42)
[2020-08-14] MEDS: APIXABAN 5 MG TAB PO SCH ×2 (07:45→20:05)
[2020-08-14] MEDS: FAMOTIDINE 20 MG TAB PO SCH ×2 (07:45→20:05)
[2020-08-14] MEDS: PREGABALIN 50 MG CAP PO SCH ×2 (07:45→20:05)
[2020-08-14] MEDS: FUROSEMIDE 40 MG TAB PO SCH (07:45)
[2020-08-14] MEDS: RIFAXIMIN 550 MG TABLET PO SCH ×2 (07:46→20:05)
--- NOTE | 2020-08-14 14:58 | P.PN ---
Subjective Progress Note Date: 08/14/20 Chief Complaint: Shortness of breath and pain Patient is a 70-year-old female with a known history of paroxysmal atrial fibrillation on anticoagulation with Eliquis, chronic back pain, history of PE, osteoarthritis, IBS, urine incontinence, history of uterine and cervical cancer with surgery, severe peptic ulcer disease, Scales's esophagus and history of GI bleed, mitral valve prolapse, herniated disc T234 and L4 5 S1 and hypothyroidism, morbid obesity and history of previous admission with complaints of pain presents to ER with complaints of shortness of breath. Patient says that she was diagnosed with covid 19 infection more than a month ago and was now hospital for 10 days. patient says that she is also having nausea and also diarrhea for the past 1-2 days which is improved now. Patient is also complaining of shortness of breath and no complaints of sputum production or cough. Denied any worsening leg swelling. No abdominal pain. No pleuritic chest pain. Patient also says that she has been anxious for the past few days. Patient is requesting IV pain medications. Chest x-ray showed no active cardiopulmonary disease. Chronic mild coarsened density consistent with mild fibrosis CT angiogram of the chest was done showed motion artifact. No large central PE. Additional findings showed mild patchy atelectasis or pneumonitis. Laboratory data showed WBC 6.9, hemoglobin 11.6 and platelet 284 D-dimer 1.6 Sodium 138, potassium 4.2, chloride 104, BUN 10 and creatinine 0.60 lactic acid 1.4 BNP 800, pro-calcitonin 0.05 not elevated Covid 19 PCR not detected. 08/14/2020 Patient is seen and evaluated in follow-up continues to have lower back pain and states her breathing is slightly better and she is currently maintained on room air at 95%. Patient states she continues to have back pain and weakness and was unable to get up and work with physical therapy today. Discussed with the patient about the possibility of rehab upon discharge and patient is adamant about going home and her son lives with her. Patient is maintained on IV steroids and will continue at this time and will continue with pain management. Patient does follow-up with pain management and Dr. Domingo in the outpatient setting. Patient has multiple other specialists follow-up appointments that she has been unable to attend due to car troubles, recent pandemic, and her back pain. Discussed with the patient about the importance of keeping follow-up appointments as this is part of her treatment plan and she verbalized understanding. Patient has had multiple hospitalizations due to uncontrolled pain. Review of systems: Constitutional: Reports fatigue, no reports of fever, or chills Cardiovascular: No reports of chest pain or palpitations Respiratory: Reports shortness of breath with slight improvement GI: No reports of nausea, vomiting, or diarrhea : No reports of dysuria or retention Neurovascular: No reports of weakness or numbness All medications have been reviewed Active Medications Acetaminophen (Acetaminophen Tab 500 Mg Tab) 1,000 mg PO Q6HR PRN PRN Reason: Fever and/ or Pain Last Admin: 08/13/20 15:52 Dose: 1,000 mg Documented by: Albuterol/Ipratropium (Ipratropium-Albuterol 3 Ml Neb) 3 ml INHALATION RT-Q4H PRN PRN Reason: Shortness Of Breath Or Wheezing Apixaban (Apixaban 5 Mg Tab) 5 mg PO BID [facility] Last Admin: 08/14/20 07:45 Dose: 5 mg Documented by: Famotidine (Famotidine 20 Mg Tab) 20 mg PO BID [facility] Last Admin: 08/14/20 07:45 Dose: 20 mg Documented by: Furosemide (Furosemide 20 Mg Tab) 20 mg PO DAILY@1700 [facility] Last Admin: 08/13/20 18:08 Dose: 20 mg Documented by: Furosemide (Furosemide 40 Mg Tab) 80 mg PO DAILY@0900 [facility] Last Admin: 08/14/20 07:45 Dose: 80 mg Documented by: Sodium Chloride (Saline 0.9%) 1,000 mls @ 20 mls/hr IV .Q24H [facility] Last Admin: 08/13/20 23:35 Dose: 20 mls/hr Documented by: Levothyroxine Sodium (Levothyroxine 75 Mcg Tab) 150 mcg PO DAILY@0630 [facility] Last Admin: 08/14/20 05:42 Dose: 150 mcg Documented by: Melatonin (Melatonin 5 Mg Tablet) 10 mg PO HS [facility] Last Admin: 08/13/20 23:35 Dose: 10 mg Documented by: Methylprednisolone Sodium Succinate (Methylprednisolone Sod Succi 40 Mg/Ml 1 Ml Vial) 40 mg IV Q8HR [facility] Last Admin: 08/14/20 07:40 Dose: 40 mg Documented by: Morphine Sulfate (Morphine Sulfate 4 Mg/Ml Syringe) 4 mg IVP Q4HR PRN PRN Reason: Pain Last Admin: 08/14/20 12:17 Dose: 4 mg Documented by: Ondansetron HCl (Ondansetron Odt 8 Mg Tab.Rapdis) 8 mg PO Q12HR PRN PRN Reason: Nausea Oxycodone/Acetaminophen (Oxycodone-Apap 7.5-325mg 1 Each Tab) 1 each PO TID PRN PRN Reason: Pain Last Admin: 08/14/20 05:42 Dose: 1 each Documented by: Pregabalin (Pregabalin 50 Mg Cap) 50 mg PO BID [facility] Last Admin: 08/14/20 07:45 Dose: 50 mg Documented by: Rifaximin (Rifaximin 550 Mg Tablet) 550 mg PO BID [facility] Stop: 09/12/20 09:01 Last Admin: 08/14/20 07:46 Dose: 550 mg Documented by: Ropinirole HCl (Ropinirole Hcl 0.25 Mg Tab) 0.25 mg PO DAILY [facility] Last Admin: 08/14/20 07:45 Dose: 0.25 mg Documented by: Objective - Vital Signs Vital signs: Vital Signs Temp 98.1 F 08/14/20 07:10 Pulse 89 08/14/20 07:10 Resp 18 08/14/20 07:10 BP 152/88 08/14/20 07:10 Pulse Ox 92 L 08/14/20 07:10 Intake & Output 08/13/20 08/14/20 08/14/20 18:59 06:59 18:59 Output Total 1200 450 600 Balance -1200 -450 -600 Output: Urine 1200 450 600 Other: Voiding Method Diaper Diaper Diaper Incontinent Incontinent Incontinent - Exam Patient is sitting up in the bed comfortably, no acute distress, awake alert and oriented. Morbidly obese.. HEENT: Normocephalic. Neck is supple. Pupils reactive. Nostrils clear. Oral cavity is moist. Ears reveal no drainage. Neck reveals no JVD, carotid bruits, or thyromegaly. CHEST EXAMINATION: Trachea is central. Symmetrical expansion. Bibasilar diminished air entry and mild expiratory wheeze. Although wheezing has slightly improved CARDIAC: Normal S1, S2 with no gallops. No murmurs ABDOMEN: Soft. Bowel sounds normal. No organomegaly. No abdominal bruits. Extremities: Bilateral lower extremity trace edema. No clubbing or cyanosis Neurologically awake, alert, oriented x3 with well-coordinated movements. No focal deficits noted Skin: No rash or skin lesions. Psychiatric: Cooperative. Non-suicidal Musculoskeletal: No joint swelling or deformity. Normal range of motion. - Labs CBC & Chem 7: 08/12/20 22:34 08/12/20 22:34 Assessment and Plan Assessment: Shortness of breath secondary to Acute asthma/COPD exacerbation Elevated d-dimer level without evidence of PE on CT angiogram Recent history of covid 19 infection Acute on chronic diarrhea. Improved now. Chronic pain Paroxysmal atrial fibrillation on anticoagulation with Eliquis History of DVT/PE History of gastric ulcer Urinary incontinence Hypothyroidism Osteoarthritis of multiple joints Morbid obesity BMI 64.0 History of CVA/TIA with no residual weakness Chronic low back pain Herniated disc t2-3-4, L4-5-S1, FX STERNUM X2(1ST ONE D/T DOMESTIC VIOLENCE DVT prophylaxis patient is already on full anticoagulation Anxiety/depression Restless leg syndrome No prior history of smoking Plan: Continue with current medications, management, and symptomatic treatment. Patient instructed to increase activity and work with PT/OT. Patient is adamant about going home when stabilized and discharge and is refusing any form of rehab. Patient states her son helps her in the home and lives with her. Patient also instructed to continue to follow-up with primary care provider along with pain management in the outpatient setting. Patient is maintained on IV steroids and have titrated down and will switch to oral prednisone tomorrow and is to be maintained on breathing treatments at this time. Pain Management to continue as ordered. Patient was requesting more frequent morphine and had a discussion with her about IV pain medications. Due to multiple complex medical issues, prognosis is guarded. Further recommendations to follow. Possible discharge in 24 hours.
[2020-08-14] MEDS: FUROSEMIDE 20 MG TAB PO SCH (16:33)
[2020-08-14] MEDS: MELATONIN 5 MG TABLET PO SCH (20:05)
[2020-08-15] MEDS: MORPHINE SULFATE 4 MG/ML SYRINGE IVP PRN ×4 (02:01→20:17)
[2020-08-15] MEDS: SODIUM CHLORIDE 0.9% 1,000 ML IV SCH (02:19)
[2020-08-15] MEDS: LEVOTHYROXINE 75 MCG TAB PO SCH (06:27)
[2020-08-15] MEDS: FAMOTIDINE 20 MG TAB PO SCH ×2 (08:20→20:16)
[2020-08-15] MEDS: methylPREDNISolone SOD SUCCI 40 MG/ML 1 ML VIAL IV SCH (08:21)
[2020-08-15] MEDS: RIFAXIMIN 550 MG TABLET PO SCH ×2 (08:21→20:16)
[2020-08-15] MEDS: APIXABAN 5 MG TAB PO SCH ×2 (08:21→20:16)
[2020-08-15] MEDS: FUROSEMIDE 40 MG TAB PO SCH (08:21)
[2020-08-15] MEDS: PREGABALIN 50 MG CAP PO SCH ×2 (08:21→20:16)
[2020-08-15] MEDS: oxyCODONE-APAP 7.5-325MG 1 EACH TAB PO PRN ×3 (08:22→22:51)
--- NOTE | 2020-08-15 15:14 | P.PN ---
Subjective Progress Note Date: 08/15/20 Chief Complaint: Shortness of breath and pain Patient is a 70-year-old female with a known history of paroxysmal atrial fibrillation on anticoagulation with Eliquis, chronic back pain, history of PE, osteoarthritis, IBS, urine incontinence, history of uterine and cervical cancer with surgery, severe peptic ulcer disease, Scales's esophagus and history of GI bleed, mitral valve prolapse, herniated disc T234 and L4 5 S1 and hypothyroidism, morbid obesity and history of previous admission with complaints of pain presents to ER with complaints of shortness of breath. Patient says that she was diagnosed with covid 19 infection more than a month ago and was now hospital for 10 days. patient says that she is also having nausea and also diarrhea for the past 1-2 days which is improved now. Patient is also complaining of shortness of breath and no complaints of sputum production or cough. Denied any worsening leg swelling. No abdominal pain. No pleuritic chest pain. Patient also says that she has been anxious for the past few days. Patient is requesting IV pain medications. Chest x-ray showed no active cardiopulmonary disease. Chronic mild coarsened density consistent with mild fibrosis CT angiogram of the chest was done showed motion artifact. No large central PE. Additional findings showed mild patchy atelectasis or pneumonitis. Laboratory data showed WBC 6.9, hemoglobin 11.6 and platelet 284 D-dimer 1.6 Sodium 138, potassium 4.2, chloride 104, BUN 10 and creatinine 0.60 lactic acid 1.4 BNP 800, pro-calcitonin 0.05 not elevated Covid 19 PCR not detected. 08/14/2020 Patient is seen and evaluated in follow-up continues to have lower back pain and states her breathing is slightly better and she is currently maintained on room air at 95%. Patient states she continues to have back pain and weakness and was unable to get up and work with physical therapy today. Discussed with the patient about the possibility of rehab upon discharge and patient is adamant about going home and her son lives with her. Patient is maintained on IV steroids and will continue at this time and will continue with pain management. Patient does follow-up with pain management and Dr. Domingo in the outpatient setting. Patient has multiple other specialists follow-up appointments that she has been unable to attend due to car troubles, recent pandemic, and her back pain. Discussed with the patient about the importance of keeping follow-up appointments as this is part of her treatment plan and she verbalized understanding. Patient has had multiple hospitalizations due to uncontrolled pain. 08/15/2020 Patient is seen in follow-up this morning states that her shortness of breath worsened and was placed back on oxygen. Patient is currently on 2 L of oxygen v ia nasal cannula at 95%. Discussed with nursing staff about discontinuing and weaning FiO2 as tolerated. She continues to have severe lower back pain and is maintained on Percocets along with morphine. We'll decrease the dose of morphine. Patient instructed to increase her activity as tolerated and work with physical therapy today. Will likely discharge tomorrow. Review of systems: Constitutional: Reports fatigue, no reports of fever, or chills Cardiovascular: No reports of chest pain or palpitations Respiratory: Reports shortness of breath GI: No reports of nausea, vomiting, or diarrhea : No reports of dysuria or retention Neurovascular: No reports of weakness or numbness All medications have been reviewed Active Medications Acetaminophen (Acetaminophen Tab 500 Mg Tab) 1,000 mg PO Q6HR PRN PRN Reason: Fever and/ or Pain Last Admin: 08/13/20 15:52 Dose: 1,000 mg Documented by: Albuterol/Ipratropium (Ipratropium-Albuterol 3 Ml Neb) 3 ml INHALATION RT-Q4H PRN PRN Reason: Shortness Of Breath Or Wheezing Apixaban (Apixaban 5 Mg Tab) 5 mg PO BID [facility] Last Admin: 08/15/20 08:21 Dose: 5 mg Documented by: Famotidine (Famotidine 20 Mg Tab) 20 mg PO BID [facility] Last Admin: 08/15/20 08:20 Dose: 20 mg Documented by: Furosemide (Furosemide 20 Mg Tab) 20 mg PO DAILY@1700 [facility] Last Admin: 08/14/20 16:33 Dose: 20 mg Documented by: Furosemide (Furosemide 40 Mg Tab) 80 mg PO DAILY@0900 [facility] Last Admin: 08/15/20 08:21 Dose: 80 mg Documented by: Levothyroxine Sodium (Levothyroxine 75 Mcg Tab) 150 mcg PO DAILY@0630 [facility] Last Admin: 08/15/20 06:27 Dose: 150 mcg Documented by: Melatonin (Melatonin 5 Mg Tablet) 10 mg PO HS [facility] Last Admin: 08/14/20 20:05 Dose: 10 mg Documented by: Morphine Sulfate (Morphine Sulfate 4 Mg/Ml Syringe) 4 mg IVP Q8H PRN PRN Reason: Pain Ondansetron HCl (Ondansetron Odt 8 Mg Tab.Rapdis) 8 mg PO Q12HR PRN PRN Reason: Nausea Oxycodone/Acetaminophen (Oxycodone-Apap 7.5-325mg 1 Each Tab) 1 each PO TID PRN PRN Reason: Pain Last Admin: 08/15/20 14:24 Dose: 1 each Documented by: Prednisone (Prednisone 20 Mg Tab) 40 mg PO [facility] Pregabalin (Pregabalin 50 Mg Cap) 50 mg PO BID [facility] Last Admin: 08/15/20 08:21 Dose: 50 mg Documented by: Rifaximin (Rifaximin 550 Mg Tablet) 550 mg PO BID [facility] Stop: 09/12/20 09:01 Last Admin: 08/15/20 08:21 Dose: 550 mg Documented by: Ropinirole HCl (Ropinirole Hcl 0.25 Mg Tab) 0.25 mg PO DAILY [facility] Last Admin: 08/15/20 08:21 Dose: 0.25 mg Documented by: Objective - Vital Signs Vital signs: Vital Signs Temp 97.6 F 08/15/20 07:38 Pulse 79 08/15/20 08:21 Resp 17 08/15/20 08:21 BP 156/89 08/15/20 07:38 Pulse Ox 95 08/15/20 07:38 Intake & Output 08/14/20 08/15/20 08/15/20 18:59 06:59 18:59 Output Total 2400 1250 Balance -2400 -1250 Output: Urine 2400 1250 Other: Voiding Method Diaper Diaper Incontinent Incontinent - Exam Patient is sitting up in the bed comfortably, no acute distress, awake alert and oriented. Morbidly obese.. HEENT: Normocephalic. Neck is supple. Pupils reactive. Nostrils clear. Oral cavity is moist. Ears reveal no drainage. Neck reveals no JVD, carotid bruits, or thyromegaly. CHEST EXAMINATION: Trachea is central. Symmetrical expansion. Bibasilar diminished air entry with no wheezing or rhonchi noted CARDIAC: Normal S1, S2 with no gallops. No murmurs ABDOMEN: Soft. Obese. Bowel sounds normal. No organomegaly. No abdominal bruits. Extremities: Bilateral lower extremity trace edema. No clubbing or cyanosis Neurologically awake, alert, oriented x3 with well-coordinated movements. No focal deficits noted Skin: No rash or skin lesions. Psychiatric: Cooperative. Non-suicidal Musculoskeletal: No joint swelling or deformity. Normal range of motion. - Labs CBC & Chem 7: 08/12/20 22:34 08/12/20 22:34 Assessment and Plan Assessment: Shortness of breath secondary to Acute asthma/COPD exacerbation Elevated d-dimer level without evidence of PE on CT angiogram Recent history of covid 19 infection Acute on chronic diarrhea. Improved now. Chronic pain Paroxysmal atrial fibrillation on anticoagulation with Eliquis History of DVT/PE History of gastric ulcer Urinary incontinence Hypothyroidism Osteoarthritis of multiple joints Morbid obesity BMI 64.0 History of CVA/TIA with no residual weakness Chronic low back pain Herniated disc t2-3-4, L4-5-S1, FX STERNUM X2(1ST ONE D/T DOMESTIC VIOLENCE DVT prophylaxis patient is already on full anticoagulation Anxiety/depression Restless leg syndrome No prior history of smoking Plan: Continue with current medications, management, and symptomatic treatment. Patient instructed to increase activity and work with PT/OT. Patient was maintained on IV steroids and will transition to oral prednisone today Pain Management to continue and has been adjusted. Due to multiple complex medical issues, prognosis is guarded. Further recommendations to follow. Probable discharge in 24 hours.
[2020-08-15] MEDS: FUROSEMIDE 20 MG TAB PO SCH (17:06)
[2020-08-15] MEDS: MELATONIN 5 MG TABLET PO SCH (20:16)
[2020-08-15] MEDS: predniSONE 20 MG TAB PO SCH (20:16)
[2020-08-16] MEDS: MORPHINE SULFATE 4 MG/ML SYRINGE IVP PRN ×3 (04:20→23:56)
[2020-08-16] MEDS: LEVOTHYROXINE 75 MCG TAB PO SCH (05:23)
[2020-08-16] MEDS: PREGABALIN 50 MG CAP PO SCH ×2 (08:35→21:37)
[2020-08-16] MEDS: FUROSEMIDE 40 MG TAB PO SCH (08:35)
[2020-08-16] MEDS: oxyCODONE-APAP 7.5-325MG 1 EACH TAB PO PRN ×2 (08:35→17:08)
[2020-08-16] MEDS: FAMOTIDINE 20 MG TAB PO SCH ×2 (08:35→21:37)
[2020-08-16] MEDS: APIXABAN 5 MG TAB PO SCH ×2 (08:35→21:38)
[2020-08-16] MEDS: RIFAXIMIN 550 MG TABLET PO SCH ×2 (08:36→21:38)
--- NOTE | 2020-08-16 13:24 | CDI ---
Documentation Clarification Form Date: 08/16/2020 01:22 PM CDS: Suzanne SunNAKIA, CCDS Admit Date: 08/15/2020 11:20 AM Patient Name: Renée Krishnan Discharge Date: ATTENTION: The Clinical Documentation Specialists (CDI) and [facility] Coding Staff appreciate your assistance in clarifying documentation. Please respond to the clarification below the line at the bottom and electronically sign. The CDI & [facility] Coding staff will review the response and follow-up if needed. Please note: Queries are made part of the Legal Health Record. If you have any questions, please contact the author of this message via ITS. Dear Dr. Desmond Narayanan: Asthma is documented in the 08/13 History & Physical and subsequent Progress Notes on 08/14 & 08/15: "Shortness of breath secondary to Acute Asthma/COPD Exacerbation, Elevated d-dimer level without evidence of PE on CT angiogram. Recent history of COVID 19 infection." History/risk factors: Paroxysmal Atrial Fibrillation, Angina, CHF, COPD, CVA/TIA, GI bleed, AK, OA, Pneumonia, PE, Hypothyroid, Colitis, IBS, Urinary Incontinence, Uterine & Cervical CA status post surgery, Severe peptic/esophageal ulcers, Scales's Esophagus, Dysphagia, Upper GI bleed, Hiatal Hernia, Murmur, Prolapsed Heart valve, Irregular heart beat occasionally, Chronic back pain, Herniated disc T2-3-4 & L4-5-S1, Fractured sternum x2, Kidney stones, Eczema, Bilateral lower leg edema, Right leg fracture, Generalized OA, Numbness & tingling in bilateral legs, C Diff, Morbid obesity (BMI 64.0), AK. Anxiety, Depression Clinical Indicators: Presented to the ED on 08/12 with SOB & fever, nausea and diarrhea, was hospitalized with COVID 19 pneumonia a month ago. ED Impression: Morbid obesity, COPD with acute bronchitis, Chronic back pain, Atypical chest pain, Gravely disabled. Admitted to OBSERVATION status, Admitted to INPATIENT status on 08/15. VS 08/15: T 98.1, P 69 - 79, R 17, BP 156/89, PO 94 - 95 2Lnc LAB 08/12 (no repeat): D Dimer 1.60^, Glucose 117^. COVID not detected. RAD: 08/12 CXR: No active cardiopulmonary disease. Chronic mild coarse density consistent with mild fibrosis. 08/13 CT Chest: No large central PE. Small PE cannot be excluded. Treatment 08/12: IV Ativan, IV Zofran, IV Protonix. 08/13: IV Morphine, IV Solumedrol, po Lasix, O2 2Lnc. 08/14: IV Solumedrol. 08/15: po Prednisone, IV Morphine, O2 2Lnc In your professional opinion, can you please further clarify the following, if known? Asthma ruled out Asthma with COPD With or Without Exacerbation Severity: o Mild intermittent o Mild persistent o Moderate persistent o Severe persistent o Other, please specify ____ o Unable to determine Form or Type o Cough variant o Extrinsic allergic o IIdiosyncratic o Intrinsic nonallergic o Late-onset o Mixed o Other, please specify____ o Unable to determine (Last Revision: November 2017) Severe persistent MTDD
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
[2020-08-16] MEDS: FUROSEMIDE 20 MG TAB PO SCH (17:08)
[2020-08-16] MEDS: MELATONIN 5 MG TABLET PO SCH (21:37)
[2020-08-16] MEDS: predniSONE 20 MG TAB PO SCH (21:38)
[2020-08-17] MEDS: oxyCODONE-APAP 7.5-325MG 1 EACH TAB PO PRN ×2 (04:03→11:16)
[2020-08-17] MEDS: LEVOTHYROXINE 75 MCG TAB PO SCH (05:37)
[2020-08-17] MEDS: FAMOTIDINE 20 MG TAB PO SCH (07:32)
[2020-08-17] MEDS: FUROSEMIDE 40 MG TAB PO SCH (07:32)
[2020-08-17] MEDS: PREGABALIN 50 MG CAP PO SCH (07:32)
[2020-08-17] MEDS: RIFAXIMIN 550 MG TABLET PO SCH (07:33)
[2020-08-17] MEDS: MORPHINE SULFATE 4 MG/ML SYRINGE IVP PRN ×2 (07:33→14:55)
[2020-08-17] MEDS: APIXABAN 5 MG TAB PO SCH (07:33)
[2020-08-17 08:12] VITALS: RESP 16
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
[2020-08-17 15:29] VITALS: BMI 64.0
[2020-08-17 15:32] VITALS: PULSE 85
[2020-08-17 15:33] VITALS: BP 108/68; TEMP 97.9
== END 2020-08-17 16:24 | disposition home or self-care (01) | DRG 191 ==
LOC: EC 21:24 → 1SOBS 08-13 00:10 → 4SSUR 08-13 11:38 → OBSVTOIN 08-15 11:20
PROVIDERS: ADMIT Hospitalist; ATTEND Hospitalist
DX: J44.1 Chronic obstructive pulmonary disease with (acute) exacerbation (principal); J45.51 Severe persistent asthma with (acute) exacerbation; Z68.44 Body mass index [BMI] 60.0-69.9, adult; J44.0 Chronic obstructive pulmonary disease with (acute) lower respiratory infection; E66.01 Morbid (severe) obesity due to excess calories; E03.9 Hypothyroidism, unspecified; I48.0 Paroxysmal atrial fibrillation; R32 Unspecified urinary incontinence; Z96.653 Presence of artificial knee joint, bilateral; I50.9 Heart failure, unspecified; Z20.828 Contact with and (suspected) exposure to other viral communicable diseases; G89.29 Other chronic pain; K22.70 Barrett's esophagus without dysplasia; F41.9 Anxiety disorder, unspecified; F32.9 Major depressive disorder, single episode, unspecified; J20.9 Acute bronchitis, unspecified; Z86.16 Personal history of COVID-19; M15.9 Polyosteoarthritis, unspecified; M54.5 Low back pain; I34.1 Nonrheumatic mitral (valve) prolapse; K58.0 Irritable bowel syndrome with diarrhea; R79.89 Other specified abnormal findings of blood chemistry; M51.24 Other intervertebral disc displacement, thoracic region; G25.81 Restless legs syndrome; Z87.442 Personal history of urinary calculi; Z82.49 Family history of ischemic heart disease and other diseases of the circulatory system; Z82.3 Family history of stroke; Z80.1 Family history of malignant neoplasm of trachea, bronchus and lung; Z80.52 Family history of malignant neoplasm of bladder; Z79.890 Hormone replacement therapy; Z79.899 Other long term (current) drug therapy; Z79.01 Long term (current) use of anticoagulants; Z88.8 Allergy status to other drugs, medicaments and biological substances; Z88.6 Allergy status to analgesic agent; Z91.041 Radiographic dye allergy status; Z86.73 Personal history of transient ischemic attack (TIA), and cerebral infarction without residual deficits; I25.2 Old myocardial infarction; Z87.01 Personal history of pneumonia (recurrent); Z87.440 Personal history of urinary (tract) infections; Z86.711 Personal history of pulmonary embolism; Z87.19 Personal history of other diseases of the digestive system; Z87.11 Personal history of peptic ulcer disease; Z85.41 Personal history of malignant neoplasm of cervix uteri; Z90.89 Acquired absence of other organs; Z90.710 Acquired absence of both cervix and uterus; Z90.49 Acquired absence of other specified parts of digestive tract; Z98.890 Other specified postprocedural states; Z86.718 Personal history of other venous thrombosis and embolism
CPT/HCPCS: 36415; 71045; 71275; 80053; 82728; 83605; 83615; 83735; 83880; 84145; 84484; 85025; 85379; 85610; 85730; 87635; 93005; 96374; 96375; 99285

== ENCOUNTER 2020-09-24 19:13 | Inpatient (IN) | payer MEDICARE, OTHER ==
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
[2020-09-24] MEDS ORDERED: methylPREDNISolone SOD SUCCI 125 MG/2 ML VIAL IV STA (19:59)
[2020-09-24] MEDS ORDERED: ALBUTEROL NEBULIZED 2.5 MG/3 ML INHALATION PRN (19:59)
[2020-09-24] MEDS ORDERED: IPRATROPIUM-ALBUTEROL 3 ML NEB INHALATION STA (19:59)
--- NOTE | 2020-09-24 20:12 | XR ---
EXAMINATION TYPE: XR chest 2V DATE OF EXAM: 09/24/2020 COMPARISON: 08/12/2020. HISTORY: Shortness of breath. TECHNIQUE: Frontal and lateral views of the chest are obtained. FINDINGS: There are bilateral diffuse moderate opacities. No pleural effusion, or pneumothorax seen. Cardiomegaly. The osseous structures are intact. IMPRESSION: Bilateral infiltrates and/or interstitial edema.
[2020-09-24] MEDS ORDERED: FUROSEMIDE 10 MG/ML 4 ML VIAL IV STA (20:32)
[2020-09-24] MEDS ORDERED: IPRATROPIUM-ALBUTEROL 3 ML NEB INHALATION PRN (20:32)
[2020-09-24] MEDS ORDERED: ONDANSETRON 4 MG/2 ML VIAL IVP STA (20:57)
[2020-09-24 21:41] LABS: Basophils # (A) 0.1 k/uL (0-0.2); Basophils % (A) 1 %; Eosinophils # (A) 0.2 k/uL (0-0.7); Eosinophils % (A) 2 %; HGB 11.6 gm/dL (11.4-16.0); Lymphocytes # (A) 1.3 k/uL (1.0-4.8); Lymphocytes % (A) 18 %; MCH 28.2 pg (25.0-35.0); MCHC 33.2 g/dL (31.0-37.0); MCV 84.9 fL (80.0-100.0); Mean Platelet Volume 7.1; Monocytes # (A) 0.4 k/uL (0-1.0); Monocytes % (A) 5 %; Neutrophils # (A) 5.3 k/uL (1.3-7.7); Neutrophils % (A) 73 %; Platelet Count 229 k/uL (150-450); RBC 4.12 m/uL (3.80-5.40); RDW 14.9 % (11.5-15.5); WBC 7.3 k/uL (3.8-10.6)
[2020-09-24 21:52] LABS: ALT 17 U/L (4-34); AST 20 U/L (14-36); African American GFR (CKD) >90 (>60 ml/min/1.73 sqM); Albumin 3.5 g/dL (3.5-5.0); Alkaline Phosphatase 92 U/L (38-126); Anion Gap 6 mmol/L; Blood Urea Nitrogen 17 mg/dL (7-17); Calcium 9.1 mg/dL (8.4-10.2); Carbon Dioxide 28 mmol/L (22-30); Chloride 107 mmol/L (98-107); Glucose 115 mg/dL (74-99); Magnesium 1.9 mg/dL (1.6-2.3); Non-African American GFR(CKD) 90 (>60 ml/min/1.73 sqM); Potassium 4.1 mmol/L (3.5-5.1); Sodium 141 mmol/L (137-145); Total Bilirubin 0.3 mg/dL (0.2-1.3)
[2020-09-24 22:00] LABS: INR 0.9 (<1.2); Partial Thromboplastin Time 22.1 sec (22.0-30.0); Prothrombin Time 10.1 sec (9.0-12.0)
[2020-09-25] MEDS: HYDROmorphone 0.5 MG/0.5 ML SYRINGE IVP PRN ×2 (00:28→04:36)
[2020-09-25] MEDS: PREGABALIN 50 MG CAP PO SCH ×3 (00:44→20:10)
[2020-09-25] MEDS: traZODone HCL 50 MG TAB PO SCH ×2 (00:44→20:10)
[2020-09-25] MEDS: ONDANSETRON 4 MG/2 ML VIAL IVP PRN (01:36)
[2020-09-25] MEDS: oxyCODONE-APAP 7.5-325MG 1 EACH TAB PO PRN ×3 (06:57→17:33)
[2020-09-25] MEDS: PANTOPRAZOLE 40 MG TABLET PO SCH (06:57)
[2020-09-25] MEDS: methylPREDNISolone SOD SUCCI 125 MG/2 ML VIAL IV SCH ×3 (06:58→17:34)
[2020-09-25] MEDS: LEVOTHYROXINE 50 MCG TAB PO SCH (06:58)
[2020-09-25] MEDS ORDERED: IPRATROPIUM 0.5 MG/2.5 ML NEBU INHALATION SCH (08:00)
[2020-09-25] MEDS: ATORVASTATIN 40 MG TAB PO SCH (09:32)
[2020-09-25] MEDS: FUROSEMIDE 10 MG/ML 4 ML VIAL IV SCH ×2 (09:33→20:10)
[2020-09-25] MEDS: IPRATROPIUM-ALBUTEROL 3 ML NEB INHALATION SCH ×4 (11:24→20:22)
[2020-09-25] MEDS: MORPHINE SULFATE 2 MG/ML SYRINGE IVP PRN ×2 (12:10→16:13)
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
[2020-09-25] MEDS: MORPHINE SULFATE 4 MG/ML SYRINGE IVP PRN (20:08)
[2020-09-25] MEDS: APIXABAN 5 MG TAB PO SCH (20:10)
[2020-09-25] MEDS: methylPREDNISolone SOD SUCCI 40 MG/ML 1 ML VIAL IV SCH (23:49)
[2020-09-26] MEDS: MORPHINE SULFATE 4 MG/ML SYRINGE IVP PRN ×5 (04:15→20:36)
[2020-09-26] MEDS: oxyCODONE-APAP 7.5-325MG 1 EACH TAB PO PRN ×3 (06:59→23:37)
[2020-09-26] MEDS: PANTOPRAZOLE 40 MG TABLET PO SCH (07:00)
[2020-09-26] MEDS: LEVOTHYROXINE 50 MCG TAB PO SCH (07:00)
[2020-09-26] MEDS ORDERED: ALBUTEROL NEBULIZED 2.5 MG/3 ML INHALATION PRN (07:48)
[2020-09-26] MEDS ORDERED: IPRATROPIUM 0.5 MG/2.5 ML NEBU INHALATION SCH (08:00)
[2020-09-26] MEDS ORDERED: ALBUTEROL HFA INHALER INHALATION PRN (08:10)
[2020-09-26 08:27] LABS: Calcium 9.3 mg/dL (8.4-10.2); Potassium 4.6 mmol/L (3.5-5.1)
[2020-09-26] MEDS: PREGABALIN 50 MG CAP PO SCH ×2 (09:20→20:34)
--- NOTE | 2020-09-26 09:20 | P.PN ---
Subjective This is a pleasant 68 years old female with past medical history of atrial fibrillation, asthma/COPD, heart failure, CVA/TIA, osteoarthritis, pulmonary embolism, atrium and cervical cancer, severe peptic disease with Scales's esophagitis and dysphagia, hiatal hernia, chronic low back pain, hypothyroidism bilateral lower extremity edema, generalized arthritis and numbness and tingling of both legs chest pain, GI bleed, posterior arthritis, pneumonia, colitis, urinary incontinence, irritable bowel syndrome, UTIs, peptic ulcer disease. C. diff. She presents because of worsening dyspnea Over 2-3 days associated with exertional dyspnea. She denies coughing or sputum. No acute chest pain. No abdominal or urinary complaints. No headache. Patient states that she feels on her back about 12 days ago when she was trying to transfer to the van and she has pain in the middle of her back Also patient states that about 2-4 weeks ago she was at [facility] for numbness in the fingers and she is been diagnosed with TIA, at that time she was prescribed Plavix but she does not want to take it also she does not take aspirin because she is ALLERGIC to it. However patient states that she has history of A. fib and she should be on E liquis given her history of multiple TIA but she ran out of it. Also she has history of clot in both lungs about 2 years ago Vitals are stable and she is saturating 93% on room air. Labs including CBC, INR, BMP, liver enzymes, troponin are unremarkable. Probe BNP is 955 Coronavirus nondetected He is hemodynamically stable and she is saturating 93% on room air. are unremarkable including CBC, BMP, liver enzymes, troponin, proBNP is at baseline at 955. Coronavirus nondetected. EKG showed normal sinus rhythm at [address]-T changes, Chest x-ray: Showing bilateral infiltrates and/or interstitial edema and MAPS was checked and she is on Percocet 3 times a day In the emergency room she was a started on Lasix 40 mg twice daily and methylcellulose drops 125 mg 1 09/26/2020 Patient thinks her breathing is still better today. She still complaining of from back pain. She refused CAT scan of the lumbar and thoracic spine yesterday, she agrees to do it today and discussed with the staff.her pain is controlled with morphine for now. she is saturating 91% on room air. She remains on Lasix IV 40 mg twice daily, Solu-Medrol 40 mg 3 times a day, and Eliquis 5 mg daily. review of systems CONSTITUTIONAL: No fever, no malaise, no fatigue. HEENT: No recent visual problems or hearing problems. Denied any sore throat. CARDIOVASCULAR: No orthopnea, PND, no palpitations, no syncope. PULMONARY: No shortness of breath, no cough, no hemoptysis. GASTROINTESTINAL: No diarrhea, no nausea, no vomiting, no abdominal pain. Normoactive bowel sounds. NEUROLOGICAL: No headaches, no weakness, no numbness. Active Medications Generic Name Dose Route Start Last Admin Trade Name Freq PRN Reason Stop Dose Admin Albuterol Sulfate 2 puff 09/26/20 08:10 Albuterol Hfa Inhaler INHALATION RT-Q2H PRN Shortness Of Breath Or Wheezing Apixaban 5 mg 09/25/20 21:00 09/25/20 20:10 Apixaban 5 Mg Tab PO 5 mg BID BRETT Administration Atorvastatin Calcium 40 mg 09/25/20 09:00 09/25/20 09:32 Atorvastatin 40 Mg Tab PO 40 mg DAILY BRETT Administration Furosemide 40 mg 09/25/20 09:00 09/25/20 20:10 Furosemide 10 Mg/Ml 4 Ml Vial IV 40 mg Q12HR BRETT Administration Levothyroxine Sodium 150 mcg 09/25/20 06:30 09/26/20 07:00 Levothyroxine 50 Mcg Tab PO 150 mcg DAILY@0630 BRETT Administration Methylprednisolone Sodium Succinate 40 mg 09/26/20 00:00 09/25/20 23:49 Methylprednisolone Sod Succi 40 Mg/Ml 1 Ml Vial IV 40 mg Q8HR BRETT Administration Morphine Sulfate 4 mg 09/25/20 18:42 09/26/20 04:15 Morphine Sulfate 4 Mg/Ml Syringe IVP 4 mg Q4HR PRN Administration Pain Ondansetron HCl 4 mg 09/25/20 00:13 09/25/20 01:36 Ondansetron 4 Mg/2 Ml Vial IVP 4 mg Q6HR PRN Administration Nausea And Vomiting Oxycodone/Acetaminophen 1 each 09/24/20 20:49 09/26/20 06:59 Oxycodone-Apap 7.5-325mg 1 Each Tab PO 1 each TID PRN Administration Pain Pantoprazole Sodium 20 mg 09/25/20 07:30 09/26/20 07:00 Pantoprazole 40 Mg Tablet PO 20 mg DAILY@0730 BRETT Administration Pregabalin 50 mg 09/25/20 00:15 09/25/20 20:10 Pregabalin 50 Mg Cap PO 50 mg BID BRETT Administration Tiotropium [place] 1 puff 09/26/20 09:00 Tiotropium 2.5 Mcg Inhaler INHALATION RT-DAILY BRETT Trazodone HCl 50 mg 09/25/20 00:15 09/25/20 20:10 Trazodone Hcl 50 Mg Tab PO 50 mg HS BRETT Administration Objective - Vital Signs Vital signs: Vital Signs Temp 97.8 F 09/26/20 04:00 Pulse 91 09/26/20 04:00 Resp 18 09/26/20 04:00 BP 159/73 09/26/20 04:00 Pulse Ox 91 L 09/26/20 04:00 Intake & Output 09/25/20 09/26/20 09/26/20 18:59 06:59 18:59 Intake Total 1340 20 240 Output Total 700 1750 Balance 640 -1730 240 Weight 169 kg Intake: IV 20 20 Invasive Line 1 20 20 Oral 1320 240 Output: Urine 700 1750 Other: Voiding Method External Catheter External Catheter - Labs CBC & Chem 7: 09/24/20 21:30 09/26/20 08:03 Labs: Abnormal Lab Results - Last 24 Hours (Table) 09/26/20 Range/Units 08:03 BUN 32 H (7-17) mg/dL Glucose 196 H (74-99) mg/dL Assessment and Plan Assessment: Acute on Chronic heart failure Go undergo back pain after a fall about 12 days ago History of CVA/TIA Osteoarthritis History of pulmonary embolism History of Uterine and cervical cancer History of Severe peptic disease with Scales's esophagus Hiatal hernia Chronic low back pain Hypothyroidism Generalized arthritis History of Numbness and tingling of both legs Diverticulosis, without inflammation. History of atrial fibrillation History of C. diff History of coronary artery disease and heart failure History of colitis History of irritable bowel syndrome History of urine incontinence. Morbid Obesity with BMI of 68.1 Plan: This is a pleasant 70 years old female who presents with possible CHF exacerbation. Back pain after a fall. Continue with Lasix twice daily while monitoring of electrolytes and kidney function. Pulmonary consult Check CAT scan of the lumbar on thoracic spine. Pain management. Patient agrees to take IV morphine today and switch to oral medication later on. Risks including but not limited to respiratory depression and/or are explained and she verbalized understanding and acceptance Labs and medication were reviewed.. Continue same treatment. Continue with symptomatic treatment. Resume home medication. Monitor lytes and vitals. DVT and GI prophylaxis. Further recommendations depends on the clinical course of the patient DVT prophylaxis: Eliquis GI Prophylaxis: Ppi PT/OT: Pending. Patient refuses to go to rehab anyway Prognosis is guarded
[2020-09-26] MEDS: APIXABAN 5 MG TAB PO SCH ×2 (09:28→20:34)
[2020-09-26] MEDS: ATORVASTATIN 40 MG TAB PO SCH (09:28)
[2020-09-26] MEDS: methylPREDNISolone SOD SUCCI 40 MG/ML 1 ML VIAL IV SCH ×3 (09:28→23:38)
--- NOTE | 2020-09-26 11:02 | CT ---
EXAMINATION TYPE: CT thor lumbar spine wo con DATE OF EXAM: 09/26/2020 COMPARISON: 11/07/2019 HISTORY: Pain CT DLP: [id number] mGycm Automated exposure control for dose reduction was used. FINDINGS: Exam significantly limited due to motion artifact. Grossly there is multilevel severe degenerative di sc disease and hypertrophic changes throughout the visualized thoracic and lumbar spine. Suspect mult ilevel foraminal encroachment particularly involving the lower lumbar spine. No obvious compression d eformities. Assessment spinal canal nearly nondiagnostic due to artifact and resolution. Multilevel degenerative disc disease and facet arthropathy. Suspect multilevel canal stenosis. MRI is recommended. No evidence of vertebral body compression fracture. Postsurgical change left hip. Subtl e deformities involving the posterior right fourth, fifth and sixth ribs. Minimal subsegmental consolidation in posterior pleural-based thickening. Coronary artery calcificati on noted. Atherosclerotic change aorta. IMPRESSION: 1. Markedly limited exam due to significant motion artifact. Suspect multilevel degenerative disc dis ease. Multilevel canal stenosis and foraminal encroachment recommend follow-up MRI given limitation e xam. 2. No obvious compression fractures. There is subtle deformities involving the posterior right fourth , fifth, and sixth ribs correlate for hairline fractures with point tenderness.
[2020-09-26] MEDS: TIOTROPIUM 2.5 MCG INHALER INHALATION SCH (11:04)
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
[2020-09-26] MEDS: FUROSEMIDE 10 MG/ML 4 ML VIAL IV SCH ×2 (13:07→20:34)
[2020-09-26] MEDS: traZODone HCL 50 MG TAB PO SCH (20:34)
[2020-09-27] MEDS: MORPHINE SULFATE 4 MG/ML SYRINGE IVP PRN ×2 (02:14→08:18)
[2020-09-27] MEDS: oxyCODONE-APAP 7.5-325MG 1 EACH TAB PO PRN (03:23)
[2020-09-27] MEDS: LEVOTHYROXINE 50 MCG TAB PO SCH (06:33)
[2020-09-27] MEDS: PANTOPRAZOLE 40 MG TABLET PO SCH (06:33)
[2020-09-27] MEDS: TIOTROPIUM 2.5 MCG INHALER INHALATION SCH (07:29)
[2020-09-27] MEDS: methylPREDNISolone SOD SUCCI 40 MG/ML 1 ML VIAL IV SCH ×3 (08:16→23:14)
[2020-09-27] MEDS: ATORVASTATIN 40 MG TAB PO SCH (08:17)
[2020-09-27] MEDS: APIXABAN 5 MG TAB PO SCH ×2 (08:17→20:59)
[2020-09-27] MEDS: FUROSEMIDE 10 MG/ML 4 ML VIAL IV SCH ×2 (08:17→20:59)
[2020-09-27] MEDS: PREGABALIN 50 MG CAP PO SCH ×2 (08:18→20:59)
[2020-09-27 09:28] LABS: Magnesium 2.2 mg/dL (1.6-2.3)
[2020-09-27] MEDS: oxyCODONE-APAP 10-325MG 1 EACH TAB PO PRN ×3 (10:58→23:14)
--- NOTE | 2020-09-27 13:08 | P.PN ---
Subjective This is a pleasant 68 years old female with past medical history of atrial fibrillation, asthma/COPD, heart failure, CVA/TIA, osteoarthritis, pulmonary embolism, atrium and cervical cancer, severe peptic disease with Scales's esophagitis and dysphagia, hiatal hernia, chronic low back pain, hypothyroidism bilateral lower extremity edema, generalized arthritis and numbness and tingling of both legs chest pain, GI bleed, posterior arthritis, pneumonia, colitis, urinary incontinence, irritable bowel syndrome, UTIs, peptic ulcer disease. C. diff. She presents because of worsening dyspnea Over 2-3 days associated with exertional dyspnea. She denies coughing or sputum. No acute chest pain. No abdominal or urinary complaints. No headache. Patient states that she feels on her back about 12 days ago when she was trying to transfer to the van and she has pain in the middle of her back Also patient states that about 2-4 weeks ago she was at [facility] for numbness in the fingers and she is been diagnosed with TIA, at that time she was prescribed Plavix but she does not want to take it also she does not take aspirin because she is ALLERGIC to it. However patient states that she has history of A. fib and she should be on E liquis given her history of multiple TIA but she ran out of it. Also she has history of clot in both lungs about 2 years ago Vitals are stable and she is saturating 93% on room air. Labs including CBC, INR, BMP, liver enzymes, troponin are unremarkable. Probe BNP is 955 Coronavirus nondetected He is hemodynamically stable and she is saturating 93% on room air. are unremarkable including CBC, BMP, liver enzymes, troponin, proBNP is at baseline at 955. Coronavirus nondetected. EKG showed normal sinus rhythm at [address]-T changes, Chest x-ray: Showing bilateral infiltrates and/or interstitial edema and MAPS was checked and she is on Percocet 3 times a day In the emergency room she was a started on Lasix 40 mg twice daily and methylcellulose drops 125 mg 1 09/26/2020 Patient thinks her breathing is still better today. She still complaining of from back pain. She refused CAT scan of the lumbar and thoracic spine yesterday, she agrees to do it today and discussed with the staff.her pain is controlled with morphine for now. she is saturating 91% on room air. She remains on Lasix IV 40 mg twice daily, Solu-Medrol 40 mg 3 times a day, and Eliquis 5 mg daily. 09/27/2020 Patient is breathing quietly, her oxygen saturation is 92-95% on room air. She is breathing at a rate of 16-19. Patient is afebrile. Creatinine is stable at 0.8 and sodium and potassium are within the reference range. Thoracal lumbar CAT scan showing marked limited exam due to significant motion artifact. Suspect multilevel degenerative disc disease. Multiple channel stenosis and foraminal encroachment with recommendation for follow-up on MRI due to limited exam. No obvious compression fracture. There is septal deformities involving the posterior right fourth, fifth and sixth ribs correlate for hairline fracture and point tenderness. I discussed the case with her son Dima upon her request when she called him for me. I discussed the case with him and management plan and he looks and agreement Patient today he agrees to stop IV morphine and to switch her to Percocet 10 mg every 6 hours, at home she was taking Percocet 7.5 mg every 8 hours, patient understands the plan to taper her to every 8 hours tomorrow and upon discharge she'll go back to her home dose. She remains also on Solu-Medrol 40 mg and Lasix 40 mg IV twice daily review of systems CONSTITUTIONAL: No fever, no malaise, no fatigue. HEENT: No recent visual problems or hearing problems. Denied any sore throat. CARDIOVASCULAR: No orthopnea, PND, no palpitations, no syncope. PULMONARY: No shortness of breath, no cough, no hemoptysis. GASTROINTESTINAL: No diarrhea, no nausea, no vomiting, no abdominal pain. Normoactive bowel sounds. NEUROLOGICAL: No headaches, no weakness, no numbness. Active Medications Generic Name Dose Route Start Last Admin Trade Name Freq PRN Reason Stop Dose Admin Albuterol Sulfate 2 puff 09/26/20 08:10 Albuterol Hfa Inhaler INHALATION RT-Q2H PRN Shortness Of Breath Or Wheezing Apixaban 5 mg 09/25/20 21:00 09/25/20 20:10 Apixaban 5 Mg Tab PO 5 mg BID BRETT Administration Atorvastatin Calcium 40 mg 09/25/20 09:00 09/25/20 09:32 Atorvastatin 40 Mg Tab PO 40 mg DAILY BRETT Administration Furosemide 40 mg 09/25/20 09:00 09/25/20 20:10 Furosemide 10 Mg/Ml 4 Ml Vial IV 40 mg Q12HR BRETT Administration Levothyroxine Sodium 150 mcg 09/25/20 06:30 09/26/20 07:00 Levothyroxine 50 Mcg Tab PO 150 mcg DAILY@0630 BRETT Administration Methylprednisolone Sodium Succinate 40 mg 09/26/20 00:00 09/25/20 23:49 Methylprednisolone Sod Succi 40 Mg/Ml 1 Ml Vial IV 40 mg Q8HR BRETT Administration Morphine Sulfate 4 mg 09/25/20 18:42 09/26/20 04:15 Morphine Sulfate 4 Mg/Ml Syringe IVP 4 mg Q4HR PRN Administration Pain Ondansetron HCl 4 mg 09/25/20 00:13 09/25/20 01:36 Ondansetron 4 Mg/2 Ml Vial IVP 4 mg Q6HR PRN Administration Nausea And Vomiting Oxycodone/Acetaminophen 1 each 09/24/20 20:49 09/26/20 06:59 Oxycodone-Apap 7.5-325mg 1 Each Tab PO 1 each TID PRN Administration Pain Pantoprazole Sodium 20 mg 09/25/20 07:30 09/26/20 07:00 Pantoprazole 40 Mg Tablet PO 20 mg DAILY@0730 BRETT Administration Pregabalin 50 mg 09/25/20 00:15 09/25/20 20:10 Pregabalin 50 Mg Cap PO 50 mg BID BRETT Administration Tiotropium [employer] 1 puff 09/26/20 09:00 Tiotropium 2.5 Mcg Inhaler INHALATION RT-DAILY BRETT Trazodone HCl 50 mg 09/25/20 00:15 09/25/20 20:10 Trazodone Hcl 50 Mg Tab PO 50 mg HS BRETT Administration Objective - Vital Signs Vital signs: Vital Signs Temp 97.3 F L 09/27/20 08:00 Pulse 88 09/27/20 08:00 Resp 16 09/27/20 08:00 BP 166/78 09/27/20 08:00 Pulse Ox 92 L 09/27/20 08:00 Intake & Output 09/26/20 09/27/20 09/27/20 18:59 06:59 18:59 Intake Total 1060 560 Output Total 1500 2150 750 Balance -440 -2150 -190 Weight 167.5 kg Intake: IV 20 Invasive Line 1 20 Oral 1040 560 Output: Urine 1500 2150 750 Other: Voiding Method External Catheter External Catheter External Catheter # Voids 1 - Exam -GENERAL: The patient is alert and oriented x3, not in any acute distress. Morbidly obese HEENT: Pupils are round and equally reacting to light. EOMI. No scleral icterus. No conjunctival pallor. Normocephalic, atraumatic. No pharyngeal erythema. No thyromegaly. CARDIOVASCULAR: S1 and S2 present. No murmurs, rubs, or gallops. -PULMONARY: Chest is clear to auscultation which are distant, no wheezing or crackles. ABDOMEN: Soft, nontender, nondistended, normoactive bowel sounds. No palpable organomegaly. MUSCULOSKELETAL: No joint swelling or deformity. EXTREMITIES: No cyanosis, clubbing, or pedal edema. NEUROLOGICAL: Gross neurological examination did not reveal any focal deficits. SKIN: No rashes. no petechiae. - Labs CBC & Chem 7: 09/24/20 21:30 09/27/20 07:57 Labs: Abnormal Lab Results - Last 24 Hours (Table) 09/27/20 Range/Units 07:57 BUN 43 H (7-17) mg/dL Glucose 144 H (74-99) mg/dL Assessment and Plan Assessment: Acute on Chronic heart failure Go undergo back pain after a fall about 12 days ago History of CVA/TIA Osteoarthritis History of pulmonary embolism History of Uterine and cervical cancer History of Severe peptic disease with Scales's esophagus Hiatal hernia Chronic low back pain Hypothyroidism Generalized arthritis History of Numbness and tingling of both legs Diverticulosis, without inflammation. History of atrial fibrillation History of C. diff History of coronary artery disease and heart failure History of colitis History of irritable bowel syndrome History of urine incontinence. Morbid Obesity with BMI of 68.1 Plan: This is a pleasant 70 years old female who presents with possible CHF exacerbation. Back pain after a fall. Continue with Lasix twice daily while monitoring of electrolytes and kidney function. Pulmonary consult She has multiple level degenerative disc disease of the spine. Consult spine orthopedic team. Pain management. Patient agrees to take Percocet oral medication. Risks including but not limited to respiratory depression and/or are explained and she verbalized understanding and acceptance Labs and medication were reviewed.. Continue same treatment. Continue with symptomatic treatment. Resume home medication. Monitor lytes and vitals. DVT and GI prophylaxis. Further recommendations depends on the clinical course of the patient DVT prophylaxis: Eliquis GI Prophylaxis: Ppi PT/OT: Pending. Patient refuses to go to rehab anyway Prognosis is guarded
--- NOTE | 2020-09-27 17:46 | P.PN ---
Progress Note - Text Progress Note Date: 09/27/20 I went in to see the patient today. She states that she has chronic thoracic and lumbar issues. She does not have any new changes in her spine or back or her extremities currently. She is not interested in having further evaluation with spine surgery. I have reviewed her imaging which shows chronic degenerative change but no acute fracture or change. We discussed the possibility of canceling the consultation and think that is okay and that is what she wants. It is okay for her to be discharged from a spine standpoint and to follow-up on an as-needed basis. We will canceling order for consult at this point per the patient request
[2020-09-27] MEDS: traZODone HCL 50 MG TAB PO SCH (20:59)
[2020-09-28 01:06] VITALS: RESP 18
[2020-09-28 01:07] VITALS: TEMP 97.1
[2020-09-28 05:27] VITALS: BP 144/71; PULSE 77
[2020-09-28] MEDS: ONDANSETRON 4 MG/2 ML VIAL IVP PRN (05:34)
[2020-09-28] MEDS: oxyCODONE-APAP 10-325MG 1 EACH TAB PO PRN (05:35)
[2020-09-28] MEDS: PANTOPRAZOLE 40 MG TABLET PO SCH (06:34)
[2020-09-28] MEDS: LEVOTHYROXINE 50 MCG TAB PO SCH (06:34)
[2020-09-28] MEDS: TIOTROPIUM 2.5 MCG INHALER INHALATION SCH (07:53)
[2020-09-28] MEDS ORDERED: oxyCODONE-APAP 10-325MG 1 EACH TAB PO PRN (07:54)
[2020-09-28] MEDS ORDERED: PANTOPRAZOLE 40 MG TABLET PO SCH (07:56)
[2020-09-28] MEDS ORDERED: predniSONE 20 MG TAB PO SCH (09:00)
[2020-09-28] MEDS ORDERED: FUROSEMIDE 40 MG TAB PO SCH (09:00)
[2020-09-28] MEDS: ATORVASTATIN 40 MG TAB PO SCH (09:31)
[2020-09-28] MEDS: PREGABALIN 50 MG CAP PO SCH (09:31)
[2020-09-28] MEDS: APIXABAN 5 MG TAB PO SCH (09:31)
--- NOTE | 2020-09-29 00:40 | P.DS ---
Providers Date of admission: 09/26/20 15:26 Attending physician: Desmond Narayanan Consults: 09/25/20 07:36 Consult Physician Routine Consulting Provider: Peter Howard Consult Reason/Comments: COPD Do you want consulting provider notified?: Yes [facility] Course: Diagnoses: Acute on Chronic heart failure Acute COPD exacerbation Acute back pain after a fall about 12 days ago History of CVA/TIA Osteoarthritis History of pulmonary embolism History of Uterine and cervical cancer History of Severe peptic disease with Sclaes's esophagus Hiatal hernia Chronic low back pain Hypothyroidism Generalized arthritis History of Numbness and tingling of both legs Diverticulosis, without inflammation. History of atrial fibrillation History of C. diff History of coronary artery disease and heart failure History of colitis History of irritable bowel syndrome History of urine incontinence. Morbid Obesity with BMI of 68.1 Hospital Course: This is a pleasant 68 years old female with past medical history of atrial fibrillation, asthma/COPD, heart failure, CVA/TIA, osteoarthritis, pulmonary embolism, atrium and cervical cancer, severe peptic disease with Scales's esophagitis and dysphagia, hiatal hernia, chronic low back pain, hypothyroidism bilateral lower extremity edema, generalized arthritis and numbness and tingling of both legs chest pain, GI bleed, posterior arthritis, pneumonia, colitis, urinary incontinence, irritable bowel syndrome, UTIs, peptic ulcer disease. C. diff. She presents because of worsening dyspnea Over 2-3 days associated with exertional dyspnea. She denies coughing or sputum. No acute chest pain. Patient states that she feels on her back about 12 days ago when she was trying to transfer to the van and she has pain in the middle of her back, CT of the thoracolumbar spine showing degenerative disease. Orthopedic surgeon recommended conservative therapy and follow-up as an outpatient Also patient was treated with IV steroids and IV Solu-Medrol, her breathing significantly improved per minute pulmonary was following the case closely. Patient remains on room air upon discharge Patient ran out for Eliquis 2 weeks prior to coming to the hospital and she went new prescription for her which is provided, Patient states is been taking it for pulmonary embolism for a year ago. Also she has history of TIA Patient not sure if she has atrial fibrillation before but that was documented. Risks of Eliquis are explained to the patient extensively including but not limited to the risk of brain bleed, organ dysfunction and/or and she agrees to continue with the Eliquis she was instructed to discuss her and it admission with her PCP within one week and she agrees patient states that her co-pay for the Eliquis is $1.3 r and it's okay with her I talked to her son Dima and the patient at bedside, both of them want her to be discharged today morning because she has an appointment with her pain physician in the office and she does not want to miss that and she cannot reschedule for the next week Patient is discharged on tapering steroids. Patient agrees to resume her oral pain medication upon discharge, also discharge on oral Lasix and bronchodilators Problems and management plan were discussed with the patient and he verbalized understanding and acceptance Patient was found stable and can be discharged home however he needs follow-up as an outpatient. Patient was instructed to follow up with PCP within one week and patient agrees Patient was instructed to follow up with water taxi ferry operator Dr. Howard in [address] hathaway spine surgeon as needed and she agrees Physical exam Gen: patient is a AAOx3, no distress. Morbidly obese CVS: S1-S2, RRR, no murmur Lungs: B/L CTA, no wheezing Abdomen: soft, no distention, no tenderness, positive bowel sounds Extremity: no leg edema or induration Time spent more than 35 minutes Patient Condition at Discharge: Stable Plan - Discharge Summary Discharge Rx Participant: No New Discharge Prescriptions: New Apixaban [Eliquis] 5 mg PO BID #60 tab Furosemide [Lasix] 40 mg PO BID@0900,1600 tab predniSONE 10 mg PO DIRECTED #26 tab Tiotropium 2.5 Mcg/Puff [Spiriva Respimat 2.5 Mcg] 1 puff INHALATION RT-DAILY #1 vial Albuterol Inhaler [Ventolin Hfa Inhaler] 2 puff INHALATION RT-Q2H PRN #1 vial PRN Reason: Shortness Of Breath Or Wheezing Continue Levothyroxine Sodium [Synthroid] 150 mcg PO DAILY Pregabalin 50 mg PO BID Ondansetron Odt [Zofran ODT] 8 mg PO Q12HR PRN PRN Reason: Nausea oxyCODONE-APAP 7.5-325MG [Percocet 7.5-325 mg] 1 tab PO TID PRN #12 tab PRN Reason: Pain traZODone HCL 50 mg PO HS Tiotropium 2.5 Mcg/Puff [Spiriva Respimat 2.5 Mcg] 1 puff INHALATION RT-DAILY Omeprazole [PriLOSEC] 20 mg PO BID Atorvastatin [Lipitor] 40 mg PO DAILY Discontinued Furosemide [Lasix] 20 mg PO HS@1700 Furosemide [Lasix] 80 mg PO DAILY@0900 Discharge Medication List Levothyroxine Sodium [Synthroid] 150 mcg PO DAILY 06/18/18 [History] Pregabalin 50 mg PO BID 02/11/20 [History] Ondansetron Odt [Zofran ODT] 8 mg PO Q12HR PRN 05/20/20 [History] oxyCODONE-APAP 7.5-325MG [Percocet 7.5-325 mg] 1 tab PO TID PRN #12 tab 08/16/20 [Rx] Atorvastatin [Lipitor] 40 mg PO DAILY 09/24/20 [History] Omeprazole [PriLOSEC] 20 mg PO BID 09/24/20 [History] Tiotropium 2.5 Mcg/Puff [Spiriva Respimat 2.5 Mcg] 1 puff INHALATION RT-DAILY 09/24/20 [History] traZODone HCL 50 mg PO HS 09/24/20 [History] Albuterol Inhaler [Ventolin Hfa Inhaler] 2 puff INHALATION RT-Q2H PRN #1 vial 09/28/20 [Rx] Apixaban [Eliquis] 5 mg PO BID #60 tab 09/28/20 [Rx] Furosemide [Lasix] 40 mg PO BID@0900,1600 tab 09/28/20 [Rx] Tiotropium 2.5 Mcg/Puff [Spiriva Respimat 2.5 Mcg] 1 puff INHALATION RT-DAILY #1 vial 09/28/20 [Rx] predniSONE 10 mg PO DIRECTED #26 tab 09/28/20 [Rx] Follow up Appointment(s)/Referral(s): Shaniqua Hathaway DO [Doctor of Osteopathic Medicine] - As Needed Peter Howard MD [STAFF PHYSICIAN] - 2 Weeks (office did not answer phone, please call thursday morning to make a follow up appointment) Jorje Domingo MD [Primary Care Provider] - 1-2 days (office is closed, please call thursday to make a follow up appointment) Patient Instructions/Handouts: Heart Failure (DC), COPD (Chronic Obstructive Pulmonary Disease) (DC) Activity/Diet/Wound Care/Special Instructions: Heart healthy diet, we recommend fluid restriction to 1.5-2 L per day and salt restriction Activity is restricted until you see your doctor's Discharge Disposition: HOME SELF-CARE
== END 2020-09-28 12:03 | disposition home or self-care (01) | DRG 190 ==
LOC: EC 19:13 → 3SCARD 20:32 → OBSVTOIN 09-26 15:26 → 3SCARD 09-26 17:02
PROVIDERS: ADMIT Internal Medicine; ATTEND Internal Medicine
PROC: 05HD33Z Insertion of Infusion Device into Right Cephalic Vein, Percutaneous Approach (ICD-10-PCS; principal; 2020-09-25 11:30)
DX: J44.1 Chronic obstructive pulmonary disease with (acute) exacerbation (principal); I50.33 Acute on chronic diastolic (congestive) heart failure; K22.10 Ulcer of esophagus without bleeding; Z68.44 Body mass index [BMI] 60.0-69.9, adult; I48.20 Chronic atrial fibrillation, unspecified; J98.11 Atelectasis; M51.24 Other intervertebral disc displacement, thoracic region; I11.0 Hypertensive heart disease with heart failure; Z20.822 Contact with and (suspected) exposure to COVID-19; J44.0 Chronic obstructive pulmonary disease with (acute) lower respiratory infection; E66.01 Morbid (severe) obesity due to excess calories; R13.10 Dysphagia, unspecified; K44.9 Diaphragmatic hernia without obstruction or gangrene; K58.9 Irritable bowel syndrome, unspecified; R32 Unspecified urinary incontinence; M51.26 Other intervertebral disc displacement, lumbar region; E03.9 Hypothyroidism, unspecified; G89.29 Other chronic pain; F41.9 Anxiety disorder, unspecified; F32.9 Major depressive disorder, single episode, unspecified; M15.9 Polyosteoarthritis, unspecified; K57.90 Diverticulosis of intestine, part unspecified, without perforation or abscess without bleeding; I25.10 Atherosclerotic heart disease of native coronary artery without angina pectoris; G47.33 Obstructive sleep apnea (adult) (pediatric); J20.9 Acute bronchitis, unspecified; R20.0 Anesthesia of skin; R20.2 Paresthesia of skin; T45.516A Underdosing of anticoagulants, initial encounter; Z91.120 Patient's intentional underdosing of medication regimen due to financial hardship; I25.2 Old myocardial infarction; Z79.890 Hormone replacement therapy; Z79.899 Other long term (current) drug therapy; Z90.49 Acquired absence of other specified parts of digestive tract; Z87.11 Personal history of peptic ulcer disease; Z86.711 Personal history of pulmonary embolism; Z85.41 Personal history of malignant neoplasm of cervix uteri; Z85.42 Personal history of malignant neoplasm of other parts of uterus; Z87.440 Personal history of urinary (tract) infections; Z87.01 Personal history of pneumonia (recurrent); Z87.81 Personal history of (healed) traumatic fracture; Z87.442 Personal history of urinary calculi; Z91.410 Personal history of adult physical and sexual abuse; Z86.73 Personal history of transient ischemic attack (TIA), and cerebral infarction without residual deficits; Z98.890 Other specified postprocedural states; Z90.710 Acquired absence of both cervix and uterus; Z96.653 Presence of artificial knee joint, bilateral; Z96.642 Presence of left artificial hip joint; Z87.19 Personal history of other diseases of the digestive system; Z91.81 History of falling; Z88.8 Allergy status to other drugs, medicaments and biological substances; Z88.6 Allergy status to analgesic agent; Z91.041 Radiographic dye allergy status; Z82.49 Family history of ischemic heart disease and other diseases of the circulatory system; Z80.1 Family history of malignant neoplasm of trachea, bronchus and lung; Z82.3 Family history of stroke; Z80.52 Family history of malignant neoplasm of bladder; Z83.2 Family history of diseases of the blood and blood-forming organs and certain disorders involving the immune mechanism
CPT/HCPCS: 36410; 36415; 71046; 72128; 72131; 76937; 80048; 80053; 83735; 83880; 84484; 85025; 85610; 85730; 87635; 93005; 94640; 96374; 96375; 99285

== ENCOUNTER 2020-10-13 17:43 | Inpatient (IN) | payer MEDICARE, OTHER ==
[2020-10-13] MEDS ORDERED: MORPHINE SULFATE 4 MG/ML SYRINGE IV STA (18:33)
[2020-10-13] MEDS ORDERED: ONDANSETRON 4 MG/2 ML VIAL IVP STA (18:33)
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
--- NOTE | 2020-10-13 18:54 | XR ---
EXAMINATION TYPE: XR chest 1V portable DATE OF EXAM: 10/13/2020 COMPARISON: 09/24/2020 HISTORY: Short of breath TECHNIQUE: Single view FINDINGS: There is no heart failure nor confluent pneumonic infiltrate. Thoracic aorta is atheromatou s. There are no hilar masses. Costophrenic angles are clear. Exam limited by patient's size. IMPRESSION: No active cardiopulmonary disease. No change.
[2020-10-13 21:10] LABS: African American GFR (CKD) >90 (>60 ml/min/1.73 sqM); Anion Gap 8 mmol/L; Blood Urea Nitrogen 12 mg/dL (7-17); Calcium 9.3 mg/dL (8.4-10.2); Carbon Dioxide 25 mmol/L (22-30); Chloride 104 mmol/L (98-107); Glucose 108 mg/dL (74-99); Non-African American GFR(CKD) 89 (>60 ml/min/1.73 sqM); Sodium 137 mmol/L (137-145)
[2020-10-13 21:15] LABS: Potassium 4.4 mmol/L (3.5-5.1)
[2020-10-13 21:22] LABS: Basophils # (A) 0.1 k/uL (0-0.2); Basophils % (A) 1 %; Eosinophils # (A) 0.2 k/uL (0-0.7); Eosinophils % (A) 2 %; HCT 37.8 % (34.0-46.0); HGB 12.5 gm/dL (11.4-16.0); Lymphocytes # (A) 1.5 k/uL (1.0-4.8); Lymphocytes % (A) 16 %; MCH 27.6 pg (25.0-35.0); MCHC 33.2 g/dL (31.0-37.0); MCV 83.3 fL (80.0-100.0); Mean Platelet Volume 7.7; Monocytes # (A) 0.7 k/uL (0-1.0); Monocytes % (A) 7 %; Neutrophils # (A) 6.7 k/uL (1.3-7.7); Neutrophils % (A) 73 %; Platelet Count 224 k/uL (150-450); RBC 4.54 m/uL (3.80-5.40); RDW 14.5 % (11.5-15.5); WBC 9.2 k/uL (3.8-10.6)
[2020-10-13] MEDS ORDERED: MORPHINE SULFATE 4 MG/ML SYRINGE IVP STA (21:26)
[2020-10-13] MEDS ORDERED: IPRATROPIUM-ALBUTEROL 3 ML NEB INHALATION PRN (23:14)
[2020-10-14] MEDS ORDERED: ONDANSETRON ODT 4 MG TAB PO PRN (01:17)
[2020-10-14] MEDS ORDERED: oxyCODONE-APAP 5-325MG 1 EACH TAB PO PRN (01:19)
[2020-10-14] MEDS ORDERED: HYDROmorphone 0.5 MG/0.5 ML SYRINGE IVP PRN (01:19)
[2020-10-14] MEDS ORDERED: ONDANSETRON 4 MG/2 ML VIAL IVP PRN (01:24)
[2020-10-14] MEDS: LEVOTHYROXINE 100 MCG TAB PO SCH (05:53)
[2020-10-14] MEDS: HYDROmorphone 0.5 MG/0.5 ML SYRINGE IVP PRN ×4 (05:55→21:52)
[2020-10-14] MEDS: predniSONE 20 MG TAB PO SCH (07:57)
[2020-10-14] MEDS: FUROSEMIDE 40 MG TAB PO SCH (07:57)
[2020-10-14] MEDS: PREGABALIN 50 MG CAP PO SCH ×2 (07:57→20:19)
[2020-10-14] MEDS: PANTOPRAZOLE 40 MG TABLET PO SCH (07:58)
[2020-10-14] MEDS: ATORVASTATIN 40 MG TAB PO SCH (07:58)
[2020-10-14] MEDS: oxyCODONE-APAP 7.5-325MG 1 EACH TAB PO SCH ×4 (07:58→20:19)
[2020-10-14] MEDS: APIXABAN 5 MG TAB PO SCH ×2 (07:58→20:19)
[2020-10-14] MEDS ORDERED: IPRATROPIUM 0.5 MG/2.5 ML NEBU INHALATION SCH (08:00)
[2020-10-14] MEDS: TIOTROPIUM 2.5 MCG INHALER INHALATION SCH (08:52)
[2020-10-14] MEDS: ALBUTEROL HFA INHALER INHALATION PRN ×4 (08:53→19:37)
[2020-10-14] MEDS: FUROSEMIDE 20 MG TAB PO SCH (16:54)
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
[2020-10-15] MEDS: HYDROmorphone 0.5 MG/0.5 ML SYRINGE IVP PRN ×6 (01:36→19:43)
[2020-10-15] MEDS: LEVOTHYROXINE 100 MCG TAB PO SCH (04:58)
[2020-10-15] MEDS: ALBUTEROL HFA INHALER INHALATION PRN ×5 (07:58→19:42)
[2020-10-15] MEDS: TIOTROPIUM 2.5 MCG INHALER INHALATION SCH (07:58)
[2020-10-15] MEDS: FUROSEMIDE 40 MG TAB PO SCH (08:00)
[2020-10-15] MEDS: APIXABAN 5 MG TAB PO SCH ×2 (08:00→19:44)
[2020-10-15] MEDS: predniSONE 20 MG TAB PO SCH (08:00)
[2020-10-15] MEDS: oxyCODONE-APAP 7.5-325MG 1 EACH TAB PO SCH ×4 (08:00→21:59)
[2020-10-15] MEDS: PANTOPRAZOLE 40 MG TABLET PO SCH (08:00)
[2020-10-15] MEDS: ATORVASTATIN 40 MG TAB PO SCH (08:00)
[2020-10-15] MEDS: PREGABALIN 50 MG CAP PO SCH ×2 (08:00→19:44)
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
--- NOTE | 2020-10-15 11:32 | P.PN ---
Subjective from records Patient is a 70-year-old female with a known history of paroxysmal atrial fibrillation on anticoagulation with Eliquis, chronic back pain, history of PE, osteoarthritis, IBS, urine incontinence, history of uterine and cervical cancer with surgery, severe peptic ulcer disease, Scales's esophagus and history of GI bleed, mitral valve prolapse, herniated disc T234 and L4 5 S1 and hypothyroidism, morbid obesity and history of previous admission with complaints of pain presents to ER with complaints of shortness of breath, exertional dyspnea and leg swelling. Patient states that she has been having worsening symptoms for the past 2 to 3 days. Patient states that her leg was stuck while she was getting out of the van. She did lean onto the floor. Denied any fall. She was helped by her son to get out. Patient was recently moved to the hospital 3 weeks ago for dyspnea, pleural effusion and sleep apnea. Patient was seen by pulmonary at the time. Otherwise patient denied any complaints of fever or chills. No nausea vomiting or abdominal pain or diarrhea. No dysuria or hematuria. Laboratory data reviewed. COVID-19 PCR not detected. Troponin x1 - and proBNP 306 subjective: 10/15/2020 this is a pleasant 70 years old female with multiple medical problems as above, she was admitted on 10/13 for shortness of breath suspected for mild acute COPD and CHF. Patient is currently on oral prednisone and oral Lasix.she is not tachypneic with a breathing rate 15-18. She is with oxygen saturating 92-94 similar to her saturation about one month ago when she was admitted to this hospital for the same. She has very mild leg swelling. Discussed the case with the pulmonary service and recommended to keep monitoring for another 24 hours patient is complaining of from her urine is dark and the total amount, will send for urinalysis and check bladder scan discussed with staff and pulmonary team review of systems CONSTITUTIONAL: No fever, no malaise, no fatigue. HEENT: No recent visual problems or hearing problems. Denied any sore throat. CARDIOVASCULAR: No orthopnea, PND, no palpitations, no syncope. PULMONARY: No shortness of breath, no cough, no hemoptysis. GASTROINTESTINAL: No diarrhea, no nausea, no vomiting, no abdominal pain. Normoactive bowel sounds. NEUROLOGICAL: No headaches, no weakness, no numbness. Active Medications Generic Name Dose Route Start Last Admin Trade Name Freq PRN Reason Stop Dose Admin Albuterol Sulfate 2 puff 10/14/20 01:17 10/15/20 10:38 Albuterol Hfa Inhaler INHALATION 2 puff RT-Q2H PRN Administration Shortness Of Breath Or Wheezing Apixaban 5 mg 10/14/20 09:00 10/15/20 08:00 Apixaban 5 Mg Tab PO 5 mg BID BRETT Administration Atorvastatin Calcium 40 mg 10/14/20 09:00 10/15/20 08:00 Atorvastatin 40 Mg Tab PO 40 mg DAILY BRETT Administration Furosemide 20 mg 10/14/20 17:00 10/14/20 16:54 Furosemide 20 Mg Tab PO 20 mg 1700 BRETT Administration Furosemide 80 mg 10/14/20 09:00 10/15/20 08:00 Furosemide 40 Mg Tab PO 80 mg 0900 BRETT Administration Hydromorphone HCl 0.5 mg 10/14/20 05:50 10/15/20 08:01 Hydromorphone 0.5 Mg/0.5 Ml Syringe IVP 0.5 mg Q3HR PRN Administration Pain Levothyroxine Sodium 150 mcg 10/14/20 06:30 10/15/20 04:58 Levothyroxine 100 Mcg Tab PO 150 mcg DAILY@0630 BRETT Administration Ondansetron HCl 4 mg 10/14/20 01:24 10/14/20 05:51 Ondansetron 4 Mg/2 Ml Vial IVP 4 mg Q6HR PRN Administration Nausea And Vomiting Oxycodone/Acetaminophen 1 each 10/14/20 09:00 10/15/20 08:00 Oxycodone-Apap 7.5-325mg 1 Each Tab PO 1 each QID BRETT Administration Pantoprazole Sodium 40 mg 10/14/20 07:30 10/15/20 08:00 Pantoprazole 40 Mg Tablet PO 40 mg DAILY@0730 BRETT Administration Prednisone 40 mg 10/14/20 09:00 10/15/20 08:00 Prednisone 20 Mg Tab PO 40 mg DAILY BRETT Administration Pregabalin 50 mg 10/14/20 09:00 10/15/20 08:00 Pregabalin 50 Mg Cap PO 50 mg BID BRETT Administration Tiotropium [place] 2 puff 10/14/20 09:00 10/15/20 07:58 Tiotropium 2.5 Mcg Inhaler INHALATION 2 puff RT-DAILY BRETT Administration Objective - Vital Signs Vital signs: Vital Signs Temp 98.1 F 10/15/20 07:36 Pulse 86 10/15/20 07:36 Resp 18 10/15/20 07:36 BP 109/70 10/15/20 07:36 Pulse Ox 94 L 10/15/20 07:36 Intake & Output 10/14/20 10/15/20 10/15/20 18:59 06:59 18:59 Intake Total 1080 300 Output Total 2500 1400 Balance -1420 -1100 Intake: Oral 1080 300 Output: Urine 2500 1400 Other: Voiding Method External Catheter External Catheter - Exam -GENERAL: The patient is alert and oriented x3, not in any acute distress. obese HEENT: Pupils are round and equally reacting to light. EOMI. No scleral icterus. No conjunctival pallor. Normocephalic, atraumatic. No pharyngeal erythema. No thyromegaly. CARDIOVASCULAR: S1 and S2 present. No murmurs, rubs, or gallops. PULMONARY: Chest is clear to auscultation, no wheezing or crackles. ABDOMEN: Soft, nontender, nondistended, normoactive bowel sounds. No palpable organomegaly. MUSCULOSKELETAL: No joint swelling or deformity. -EXTREMITIES: No cyanosis, clubbing, . Mild bilateral pitting edema. NEUROLOGICAL: Gross neurological examination did not reveal any focal deficits. SKIN: No rashes. No petechiae - Labs CBC & Chem 7: 10/13/20 20:45 10/13/20 20:45 Assessment and Plan Assessment: mild Acute on Chronic heart failure mild Acute COPD exacerbation chronic back pain with a fall last month History of CVA/TIA Osteoarthritis History of pulmonary embolism History of Uterine and cervical cancer History of Severe peptic disease with Scales's esophagus Hiatal hernia Chronic low back pain Hypothyroidism Generalized arthritis History of Numbness and tingling of both legs Diverticulosis, without inflammation. History of atrial fibrillation History of C. diff History of coronary artery disease and heart failure History of colitis History of irritable bowel syndrome History of urine incontinence. Morbid Obesity with BMI of 68.1 Plan: This is a pleasant 70 years old female who presents with possible mildCHF exacerbation, Continue with Lasix . Pulmonary consult She has multiple level degenerative disc disease of the spine. Consult spine orthopedic team. Pain management. Patient agrees to take Percocet oral medication. Risks including but not limited to respiratory depression and/or are explained and she verbalized understanding and acceptance Labs and medication were reviewed.. Continue same treatment. Continue with symptomatic treatment. Resume home medication. Monitor lytes and vitals. DVT and GI prophylaxis. Further recommendations depends on the clinical course of the patient DVT prophylaxis: Eliquis GI Prophylaxis: Ppi PT/OT: Pending. Patient refuses to go to rehab anyway long-term prognosis is guarded
[2020-10-15 16:10] LABS: Appearance,Urine Clear (Clear); Bilirubin,Urine Negative (Negative); Blood,Urine Negative (Negative); Color,Urine Light Yellow; Glucose,Urine (UA) Negative (Negative); Ketones,Urine Negative (Negative); Leukocyte Esterase,Urine Negative (Negative); Nitrite,Urine Negative (Negative); Protein,Urine Negative (Negative); Specific Gravity,Urine 1.009 (1.001-1.035); Urobilinogen,Urine <2.0 mg/dL (<2.0)
[2020-10-15] MEDS: FUROSEMIDE 20 MG TAB PO SCH (17:01)
[2020-10-16] MEDS: HYDROmorphone 0.5 MG/0.5 ML SYRINGE IVP PRN ×3 (02:19→08:06)
[2020-10-16] MEDS: LEVOTHYROXINE 100 MCG TAB PO SCH (05:07)
[2020-10-16] MEDS: ALBUTEROL HFA INHALER INHALATION PRN ×3 (08:03→15:50)
[2020-10-16] MEDS: TIOTROPIUM 2.5 MCG INHALER INHALATION SCH (08:03)
[2020-10-16] MEDS: predniSONE 20 MG TAB PO SCH (08:06)
[2020-10-16] MEDS: APIXABAN 5 MG TAB PO SCH ×2 (08:06→19:59)
[2020-10-16] MEDS: oxyCODONE-APAP 7.5-325MG 1 EACH TAB PO SCH (08:06)
[2020-10-16] MEDS: ATORVASTATIN 40 MG TAB PO SCH (08:06)
[2020-10-16] MEDS: FUROSEMIDE 40 MG TAB PO SCH (08:06)
[2020-10-16] MEDS: PANTOPRAZOLE 40 MG TABLET PO SCH (08:06)
[2020-10-16] MEDS: PREGABALIN 50 MG CAP PO SCH ×2 (08:06→19:59)
[2020-10-16 09:33] LABS: Magnesium 1.8 mg/dL (1.6-2.3)
[2020-10-16 09:39] LABS: Potassium 4.1 mmol/L (3.5-5.1)
--- NOTE | 2020-10-16 11:52 | P.PN ---
Subjective from records Patient is a 70-year-old female with a known history of paroxysmal atrial fibrillation on anticoagulation with Eliquis, chronic back pain, history of PE, osteoarthritis, IBS, urine incontinence, history of uterine and cervical cancer with surgery, severe peptic ulcer disease, Scales's esophagus and history of GI bleed, mitral valve prolapse, herniated disc T234 and L4 5 S1 and hypothyroidism, morbid obesity and history of previous admission with complaints of pain presents to ER with complaints of shortness of breath, exertional dyspnea and leg swelling. Patient states that she has been having worsening symptoms for the past 2 to 3 days. Patient states that her leg was stuck while she was getting out of the van. She did lean onto the floor. Denied any fall. She was helped by her son to get out. Patient was recently moved to the hospital 3 weeks ago for dyspnea, pleural effusion and sleep apnea. Patient was seen by pulmonary at the time. Otherwise patient denied any complaints of fever or chills. No nausea vomiting or abdominal pain or diarrhea. No dysuria or hematuria. Laboratory data reviewed. COVID-19 PCR not detected. Troponin x1 - and proBNP 306 subjective: 10/15/2020 this is a pleasant 70 years old female with multiple medical problems as above, she was admitted on 10/13 for shortness of breath suspected for mild acute COPD and CHF. Patient is currently on oral prednisone and oral Lasix.she is not tachypneic with a breathing rate 15-18. She is with oxygen saturating 92-94 similar to her saturation about one month ago when she was admitted to this hospital for the same. She has very mild leg swelling. Discussed the case with the pulmonary service and recommended to keep monitoring for another 24 hours patient is complaining of from her urine is dark and the total amount, will send for urinalysis and check bladder scan discussed with staff and pulmonary team 10/16/2020 Patient this morning was awakened alert, she was breathing quietly, her oxygen saturation this morning was 97% even better than last time and last month when I discharged her on 94%. Patient most likely have sleep apnea and she needs sleep study as an outpatient and she needs to follow up with cnc programmer, I instr ucted the patient to follow-up with Dr. Howard in 1-2 weeks after discharge for this reason and she verbalized understanding However patient was so adamant not to go home today, she is afraid that her br eathing may get worse and chest to come to the hospital. Because she states that there is no one at home to take her today. I discussed the case with cnc programmer Dr. Howard who took the patient and he agrees to give the patient 1 more day. Risks and benefits are explained for the patient She was complaining about her urine darkened, her urine analysis is normal with no blood or infection. Postvoid residual was checked by staff and was normal with no urine retention. Her magnesium and potassium were checked and they were normal today as well Possible discharge in 24 hours Objective - Vital Signs Vital signs: Vital Signs Temp 97.4 F L 10/16/20 07:53 Pulse 86 10/16/20 07:53 Resp 18 10/16/20 07:53 BP 143/82 10/16/20 07:53 Pulse Ox 97 10/16/20 08:04 Intake & Output 10/15/20 10/16/20 10/16/20 18:59 06:59 18:59 Output Total 2800 650 Balance -2800 -650 Output: Urine 2800 650 Other: Voiding Method External Catheter - Exam -GENERAL: The patient is alert and oriented x3, not in any acute distress. obese HEENT: Pupils are round and equally reacting to light. EOMI. No scleral icterus. No conjunctival pallor. Normocephalic, atraumatic. No pharyngeal erythema. No thyromegaly. CARDIOVASCULAR: S1 and S2 present. No murmurs, rubs, or gallops. PULMONARY: Chest is clear to auscultation, no wheezing or crackles. ABDOMEN: Soft, nontender, nondistended, normoactive bowel sounds. No palpable organomegaly. MUSCULOSKELETAL: No joint swelling or deformity. -EXTREMITIES: No cyanosis, clubbing, . Mild bilateral pitting edema. NEUROLOGICAL: Gross neurological examination did not reveal any focal deficits. SKIN: No rashes. No petechiae - Labs CBC & Chem 7: 10/13/20 20:45 10/16/20 08:54 Assessment and Plan Assessment: mild Acute on Chronic heart failure mild Acute COPD exacerbation chronic back pain with a fall last month History of CVA/TIA Osteoarthritis History of pulmonary embolism History of Uterine and cervical cancer History of Severe peptic disease with Scales's esophagus Hiatal hernia Chronic low back pain Hypothyroidism Generalized arthritis History of Numbness and tingling of both legs Diverticulosis, without inflammation. History of atrial fibrillation History of C. diff History of coronary artery disease and heart failure History of colitis History of irritable bowel syndrome History of urine incontinence. Morbid Obesity with BMI of 68.1 Plan: This is a pleasant 70 years old female who presents with possible mild CHF and COPD exacerbation, Continue with Lasix . Pulmonary consult on the case and the recommend 1 more day Patient agrees to take Percocet oral medication. Risks including but not limited to respiratory depression and/or are explained and she verbalized understanding and acceptance. Discontinue Dilaudid Labs and medication were reviewed.. Continue same treatment. Continue with symptomatic treatment. Resume home medication. Monitor lytes and vitals. DVT and GI prophylaxis. Further recommendations depends on the clinical course of the patient DVT prophylaxis: Eliquis GI Prophylaxis: Ppi PT/OT: Pending. Patient refuses to go to rehab anyway long-term prognosis is guarded
--- NOTE | 2020-10-16 12:01 | P.PN ---
Subjective Progress Note Date: 10/16/20 Principal diagnosis: Acute on chronic hypoxic history failure due to acute exacerbation of congestive heart failure likely acute on chronic diastolic heart failure Increased urinary problems with voiding Painful micturition Possible UTI Sleep disorder breathing and sleep apnea 10/16/2020, patient seen eval examined during the rounds patient has been complaining of shortness of breath however sats remains stable, BNP slightly elevated, patient has been on pain medicine with Dilaudid recommend to taper to by mouth nonnarcotic agents agree with discharge planning in next 24 hours from pulmonary standpoint Patient is a morbidly obese 70-year-old male well-known to me he has a history of chronic persistent asthma mild to moderate category, has problems associated with anasarca fluid overload pulmonary hypertension also chronic atrial fibrillation and has been on diuretic anticoagulation with the oral anticoagulant, other issues include pulmonary embolism degenerative joint disease osteoarthritis history of uterine and cervical cancer Scales's esophagus mitral valve prolapse severe back pain and chronic pain issues, patient presented emergency department with generalized swelling increased swelling of the lower extremity also has exertional dyspnea, covert testing is negative, troponin negative, with a change in chest x-ray currently patient is complaining of shortness of breath her oxygen saturation however room air is 94%, she is complaining of burning on passing urine she is also having very dark urine we'll send urine analysis and culture as well Objective - Vital Signs Vital signs: Vital Signs Temp 97.4 F L 10/16/20 07:53 Pulse 86 10/16/20 07:53 Resp 18 10/16/20 07:53 BP 143/82 10/16/20 07:53 Pulse Ox 97 10/16/20 08:04 Intake & Output 10/15/20 10/16/20 10/16/20 18:59 06:59 18:59 Output Total 2800 650 Balance -2800 -650 Output: Urine 2800 650 Other: Voiding Method External Catheter - Exam - Constitutional General appearance: disheveled, morbidly obese, no acute distress - EENT Eyes: PERRLA Ears: bilateral: normal - Neck Carotids: bilateral: upstroke normal Thyroid: bilateral: normal size - Respiratory Respiratory: bilateral: diminished - Cardiovascular Rhythm: regular Heart sounds: normal: S1, S2 - Gastrointestinal General gastrointestinal: distended, normal bowel sounds - Neurologic Neurologic: CNII-XII intact - Musculoskeletal Musculoskeletal: gait normal, generalized weakness, strength equal bilaterally - Psychiatric Psychiatric: A&O x's 3, appropriate affect, intact judgment & insight - Labs CBC & Chem 7: 10/13/20 20:45 10/16/20 08:54 Assessment and Plan Assessment: Acute on chronic hypoxic history failure due to acute exacerbation of congestive heart failure likely acute on chronic diastolic heart failure Increased urinary problems with voiding Painful micturition less likely UTI, as urine analysis is normal Sleep disorder breathing and sleep apnea Plan: Continue diuresis as planned continue bronchodilator Supplemental oxygen as needed discharge planning as per primary service Taper and DC narcotic agents SLEEP study as outpatient Time with Patient: Greater than 30
[2020-10-16] MEDS: oxyCODONE-APAP 7.5-325MG 1 EACH TAB PO PRN ×2 (13:37→19:58)
[2020-10-16] MEDS: FUROSEMIDE 20 MG TAB PO SCH (16:24)
[2020-10-16] MEDS ORDERED: MELATONIN 3 MG TABLET PO PRN (20:28)
[2020-10-17] MEDS: oxyCODONE-APAP 7.5-325MG 1 EACH TAB PO PRN ×3 (02:24→14:37)
[2020-10-17] MEDS: LEVOTHYROXINE 100 MCG TAB PO SCH (05:41)
[2020-10-17] MEDS: TIOTROPIUM 2.5 MCG INHALER INHALATION SCH (07:53)
[2020-10-17] MEDS: predniSONE 20 MG TAB PO SCH (09:02)
[2020-10-17] MEDS: APIXABAN 5 MG TAB PO SCH (09:03)
[2020-10-17] MEDS: PREGABALIN 50 MG CAP PO SCH (09:03)
[2020-10-17] MEDS: PANTOPRAZOLE 40 MG TABLET PO SCH (09:04)
[2020-10-17] MEDS: FUROSEMIDE 40 MG TAB PO SCH (09:04)
[2020-10-17] MEDS: ATORVASTATIN 40 MG TAB PO SCH (09:04)
[2020-10-17 13:34] VITALS: BP 122/76; PULSE 93; RESP 16; TEMP 98.5
--- NOTE | 2020-10-17 15:50 | P.PN ---
Subjective Progress Note Date: 10/17/20 Principal diagnosis: Acute on chronic hypoxic history failure due to acute exacerbation of congestive heart failure likely acute on chronic diastolic heart failure Increased urinary problems with voiding Painful micturition Possible UTI Sleep disorder breathing and sleep apnea 10/17/2020, patient seen eval reexamined during the rounds labs reviewed medications reviewed care plan discussed respiratory status remains stable, patient is off of room air, patient is concerned about swelling, denies any chest pain cough or sputum production, pain medicine are being tapered down, agree with discharge planning 10/16/2020, patient seen eval examined during the rounds patient has been complaining of shortness of breath however sats remains stable, BNP slightly elevated, patient has been on pain medicine with Dilaudid recommend to taper to by mouth nonnarcotic agents agree with discharge planning in next 24 hours from pulmonary standpoint Patient is a morbidly obese 70-year-old male well-known to me he has a history of chronic persistent asthma mild to moderate category, has problems associated with anasarca fluid overload pulmonary hypertension also chronic at rial fibrillation and has been on diuretic anticoagulation with the oral anticoagulant, other issues include pulmonary embolism degenerative joint disease osteoarthritis history of uterine and cervical cancer Scales's esophagus mitral valve prolapse severe back pain and chronic pain issues, patient presented emergency department with generalized swelling increased swelling of the lower extremity also has exertional dyspnea, covert testing is negative, troponin negative, with a change in chest x-ray currently patient is complaining of shortness of breath her oxygen saturation however room air is 94%, she is complaining of burning on passing urine she is also having very dark urine we'll send urine analysis and culture as well Objective - Vital Signs Vital signs: Vital Signs Temp 98.5 F 10/17/20 13:30 Pulse 93 10/17/20 13:30 Resp 16 10/17/20 13:30 BP 122/76 10/17/20 13:30 Pulse Ox 93 L 10/17/20 15:22 Intake & Output 10/16/20 10/17/20 10/17/20 18:59 06:59 18:59 Output Total 1600 1200 Balance -1600 -1200 Output: Urine 1600 1200 Other: Voiding Method External Catheter - Exam - Constitutional General appearance: disheveled, morbidly obese, no acute distress - EENT Eyes: PERRLA Ears: bilateral: normal - Neck Carotids: bilateral: upstroke normal Thyroid: bilateral: normal size - Respiratory Respiratory: bilateral: diminished - Cardiovascular Rhythm: regular Heart sounds: normal: S1, S2 - Gastrointestinal General gastrointestinal: distended, normal bowel sounds - Neurologic Neurologic: CNII-XII intact - Musculoskeletal Musculoskeletal: gait normal, generalized weakness, strength equal bilaterally - Psychiatric Psychiatric: A&O x's 3, appropriate affect, intact judgment & insight - Labs CBC & Chem 7: 10/13/20 20:45 10/16/20 08:54 Assessment and Plan Assessment: Acute on chronic hypoxic history failure due to acute exacerbation of congestive heart failure likely acute on chronic diastolic heart failure Increased urinary problems with voiding Painful micturition less likely UTI, as urine analysis is normal Sleep disorder breathing and sleep apnea Plan: Continue diuresis as planned continue bronchodilator Supplemental oxygen as needed discharge planning as per primary service Taper and DC narcotic agents SLEEP study as outpatient Time with Patient: Greater than 30
--- NOTE | 2020-10-17 23:37 | P.DS ---
Providers Date of admission: 10/15/20 11:14 Attending physician: Carine Miller Consults: 10/14/20 11:32 Consult Physician Routine Consulting Provider: Peter Howard Consult Reason/Comments: copd exacerbation Do you want consulting provider notified?: Yes [facility] Hospital Course: Diagnoses: mild Acute on Chronic heart failure mild Acute COPD exacerbation chronic back pain with a fall last month History of CVA/TIA Osteoarthritis History of pulmonary embolism History of Uterine and cervical cancer History of Severe peptic disease with Scales's esophagus Hiatal hernia Chronic low back pain Hypothyroidism Generalized arthritis History of Numbness and tingling of both legs Diverticulosis, without inflammation. History of atrial fibrillation History of C. diff History of coronary artery disease and heart failure History of colitis History of irritable bowel syndrome History of urine incontinence. Morbid Obesity with BMI of 68.1 Hospital course: Patient is a 70-year-old female with a known history of paroxysmal atrial fibrillation on anticoagulation with Eliquis, chronic back pain, history of PE, osteoarthritis, IBS, urine incontinence, history of uterine and cervical cancer with surgery, severe peptic ulcer disease, Scales's esophagus and history of GI bleed, mitral valve prolapse, herniated disc T234 and L4 5 S1 and hypothyroidism, morbid obesity and history of previous admission with complaints of pain.she was admitted on 10/13 for shortness of breath suspected for mild acute COPD and CHF. Patient is currently on oral prednisone and oral Lasix.she is not tachypneic with a breathing rate 15-18. She is with oxygen saturating 92-94 similar to her saturation about one month ago when she was admitted to this hospital for the same. She has very mild leg swelling. Patient has been evaluated by pulmonary service. Patient showed interval improvement on the day of discharge has no dyspnea or chest pain. No abdominal pain or nausea vomiting. No fever. Patient was cleared for discharge by pulmonary service As per pulmonary team recommendation, patient was instructed to taper down her Logan as it might affect her breathing, also she was advised to get a sleep study as an outpatient with pulmonary service. Patient was upset with a recommendation to lower her Logan, risks, benefits and alternatives are explained to her extensively, however I had talked to her son upon her request several times history Dima at [phone] and discussed the case with him . They told me that she's going to have a close follow-up with pain service in 8 days and he was trying to get her disorder appointment. Patient told me she has already prescription at home and that she's going to take her home medication to see her new PCP. Patient is planning to follow-up with the geriatric clinic at [facility], and this information confirmed to me by her son. patient is discharged on tapering steroids Problems and management plan were discussed with the patient and he verbalized understanding and acceptance Patient was found stable and can be discharged home however he needs follow-up as an outpatient. Patient was instructed to follow up with PCP within one week and patient agrees. Patient also was instructed to follow up with her manager domestic Dr. Hyatt in 1-2 weeks Physical exam Gen: patient is a AAOx3, no distress. Morbidly obese CVS: S1-S2, RRR, no murmur Lungs: B/L CTA, no wheezing Abdomen: soft, no distention, no tenderness, positive bowel sounds Extremity: no leg edema or induration Time spent more than 35 minutes Patient Condition at Discharge: Serious Plan - Discharge Summary Discharge Rx Participant: No New Discharge Prescriptions: New predniSONE 10 mg PO DIRECTED #18 tab Continue Levothyroxine Sodium [Synthroid] 150 mcg PO DAILY Pregabalin 50 mg PO BID Ondansetron Odt [Zofran ODT] 8 mg PO BID PRN PRN Reason: Nausea Atorvastatin [Lipitor] 40 mg PO DAILY Apixaban [Eliquis] 5 mg PO BID #60 tab Albuterol Inhaler [Ventolin Hfa Inhaler] 2 puff INHALATION RT-Q2H PRN #1 vial PRN Reason: Shortness Of Breath Or Wheezing Furosemide [Lasix] 20 mg PO DAILY@1700 rOPINIRole HCL [Requip] 0.25 mg PO HS Tiotropium 2.5 Mcg/Puff [Spiriva Respimat 2.5 Mcg] 2 puff INHALATION RT-DAILY Rifaximin [Xifaxan] 550 mg PO BID Furosemide [Lasix] 80 mg PO DAILY@0900 oxyCODONE-APAP 7.5-325MG [Percocet 7.5-325 mg] 1 tab PO TID PRN #0 PRN Reason: Pain Discharge Medication List Levothyroxine Sodium [Synthroid] 150 mcg PO DAILY 06/18/18 [History] Pregabalin 50 mg PO BID 02/11/20 [History] Ondansetron Odt [Zofran ODT] 8 mg PO BID PRN 05/20/20 [History] Atorvastatin [Lipitor] 40 mg PO DAILY 09/24/20 [History] Albuterol Inhaler [Ventolin Hfa Inhaler] 2 puff INHALATION RT-Q2H PRN #1 vial 09/28/20 [Rx] Apixaban [Eliquis] 5 mg PO BID #60 tab 09/28/20 [Rx] Furosemide [Lasix] 20 mg PO DAILY@1700 10/14/20 [History] Furosemide [Lasix] 80 mg PO DAILY@0900 10/14/20 [History] Rifaximin [Xifaxan] 550 mg PO BID 10/14/20 [History] Tiotropium 2.5 Mcg/Puff [Spiriva Respimat 2.5 Mcg] 2 puff INHALATION RT-DAILY 10/14/20 [History] rOPINIRole HCL [Requip] 0.25 mg PO HS 10/14/20 [History] oxyCODONE-APAP 7.5-325MG [Percocet 7.5-325 mg] 1 tab PO TID PRN #0 10/16/20 [Rx] predniSONE 10 mg PO DIRECTED #18 tab 10/16/20 [Rx] Follow up Appointment(s)/Referral(s): [facility],Equipment [NON-STAFF] - (Call [facility] to arrange delivery of your hospital bed once you are ready for it) Peter Howard MD [STAFF PHYSICIAN] - 1 Week (office closed at time of discharge. Please call to schedule appointment ) Jorje Dominog MD [Primary Care Provider] - 1-2 days (office closed at time of discharge. Please call to schedule appointment) Patient Instructions/Handouts: Heart Failure (DC), COPD (Chronic Obstructive Pulmonary Disease) (DC) Activity/Diet/Wound Care/Special Instructions: heart healthy , low carbohydrate diet with 1600 k estefania per day activity is restricted till you see your doctor we recommend to taper off your narcotics ( percocet ) and switch it to non narcotics Discharge Disposition: HOME SELF-CARE
== END 2020-10-17 15:51 | disposition home or self-care (01) | DRG 190 ==
LOC: EC 17:43 → 4SSUR 23:15 → OBSVTOIN 10-15 11:14
PROVIDERS: ADMIT Hospitalist; ATTEND Hospitalist
DX: J44.1 Chronic obstructive pulmonary disease with (acute) exacerbation (principal); I50.33 Acute on chronic diastolic (congestive) heart failure; Z68.44 Body mass index [BMI] 60.0-69.9, adult; J45.901 Unspecified asthma with (acute) exacerbation; I11.0 Hypertensive heart disease with heart failure; I48.0 Paroxysmal atrial fibrillation; Z79.01 Long term (current) use of anticoagulants; M54.9 Dorsalgia, unspecified; Z86.711 Personal history of pulmonary embolism; Z86.718 Personal history of other venous thrombosis and embolism; K58.9 Irritable bowel syndrome, unspecified; R32 Unspecified urinary incontinence; Z85.42 Personal history of malignant neoplasm of other parts of uterus; Z85.41 Personal history of malignant neoplasm of cervix uteri; R19.7 Diarrhea, unspecified; G89.29 Other chronic pain; Z87.11 Personal history of peptic ulcer disease; E03.9 Hypothyroidism, unspecified; M15.9 Polyosteoarthritis, unspecified; E66.01 Morbid (severe) obesity due to excess calories; Z86.73 Personal history of transient ischemic attack (TIA), and cerebral infarction without residual deficits; G25.81 Restless legs syndrome; F41.8 Other specified anxiety disorders; G47.33 Obstructive sleep apnea (adult) (pediatric); I25.10 Atherosclerotic heart disease of native coronary artery without angina pectoris; I25.2 Old myocardial infarction; I27.20 Pulmonary hypertension, unspecified; I34.1 Nonrheumatic mitral (valve) prolapse; R09.02 Hypoxemia; Z79.890 Hormone replacement therapy; Z79.899 Other long term (current) drug therapy; Z80.1 Family history of malignant neoplasm of trachea, bronchus and lung; Z82.49 Family history of ischemic heart disease and other diseases of the circulatory system; Z87.19 Personal history of other diseases of the digestive system; Z90.710 Acquired absence of both cervix and uterus; Z91.81 History of falling; Z96.653 Presence of artificial knee joint, bilateral; Z20.822 Contact with and (suspected) exposure to COVID-19
CPT/HCPCS: 36415; 71045; 80048; 81003; 83735; 83880; 84132; 84484; 85025; 87635; 93005; 94640; 94760

== ENCOUNTER 2021-01-10 18:19 | Inpatient (IN) | payer MEDICARE, OTHER ==
[2021-01-10] MEDS ORDERED: ONDANSETRON 4 MG/2 ML VIAL IVP STA ×2 (20:08→22:42)
[2021-01-10] MEDS ORDERED: SODIUM CHLORIDE 0.9% 500 ML 500 ML IV STA (20:08)
[2021-01-10] MEDS ORDERED: diphenhydrAMINE 50 MG/ML 1 ML VIAL IVP STA (20:08)
[2021-01-10] MEDS ORDERED: HYDROmorphone 0.5 MG/0.5 ML SYRINGE IVP STA (20:08)
[2021-01-10 20:51] LABS: Basophils # (A) 0.1 k/uL (0-0.2); Basophils % (A) 1 %; Eosinophils # (A) 0.2 k/uL (0-0.7); Eosinophils % (A) 2 %; HCT 35.7 % (34.0-46.0); HGB 11.9 gm/dL (11.4-16.0); Lymphocytes # (A) 0.7 k/uL (1.0-4.8); Lymphocytes % (A) 7 %; MCH 26.8 pg (25.0-35.0); MCHC 33.3 g/dL (31.0-37.0); MCV 80.4 fL (80.0-100.0); Mean Platelet Volume 6.7; Monocytes # (A) 0.2 k/uL (0-1.0); Monocytes % (A) 2 %; Neutrophils # (A) 9.2 k/uL (1.3-7.7); Neutrophils % (A) 89 %; Platelet Count 374 k/uL (150-450); RBC 4.44 m/uL (3.80-5.40); RDW 14.8 % (11.5-15.5); WBC 10.3 k/uL (3.8-10.6)
[2021-01-10 21:29] LABS: Albumin 4.7 g/dL (3.5-5.0); Calcium 9.7 mg/dL (8.4-10.2); Potassium 3.8 mmol/L (3.5-5.1); Total Bilirubin 0.6 mg/dL (0.2-1.3); Total Protein 7.3 g/dL (6.3-8.2)
--- NOTE | 2021-01-10 21:35 | XR ---
EXAMINATION: XR chest 2V DATE AND TIME: 01/10/2021 9:05 PM CLINICAL INDICATION: PHH; pain TECHNIQUE: AP and lateral COMPARISON: 10/13/2020 FINDINGS: The overlying soft tissues are prominent, limiting visualization and diagnostic inability o f radiographs. The lateral radiograph shows evidence of airlessness within the lung bases posteriorly. This can dina elate with atelectasis and/or pneumonia Remainder of the lung parenchyma appears to be clear bilaterally. The pleural spaces appear to be negative. The cardiac silhouette is mildly enlarged, unchanged. Tortuosity of the aorta redemonstrated. The skeletal structures and soft tissues are negative for acute findings. IMPRESSION: Bilateral lung base airlessness posteriorly and inferiorly.
[2021-01-10] MEDS ORDERED: HYDROmorphone 1 MG/ML 1 ML SYRINGE IVP STA (22:42)
[2021-01-10 23:00] LABS: Amorphous Sediment,Urine Occasional /hpf; Appearance,Urine Cloudy (Clear); Bilirubin,Urine 1+ (Negative); Blood,Urine Trace (Negative); Color,Urine Yellow; Glucose,Urine (UA) Trace (Negative); Hyaline Casts,Urine 1 /lpf (0-2); Ketones,Urine 1+ (Negative); Leukocyte Esterase,Urine Trace (Negative); Mucus,Urine Rare /hpf; Nitrite,Urine Negative (Negative); PH, Urine 5.5 (5.0-8.0); Protein,Urine 1+ (Negative); RBC,Urine 2 /hpf (0-5); Specific Gravity,Urine 1.026 (1.001-1.035); Squamous Epithelial Cell,Urine 1 /hpf (0-4); Urobilinogen,Urine <2.0 mg/dL (<2.0); WBC,Urine 1 /hpf (0-5)
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
[2021-01-11] MEDS ORDERED: NALOXONE 0.4 MG/ML 1 ML VIAL IV PRN (00:04)
[2021-01-11] MEDS: HYDROmorphone 0.5 MG/0.5 ML SYRINGE IVP PRN ×5 (01:03→19:58)
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
[2021-01-11] MEDS: ONDANSETRON 4 MG/2 ML VIAL IVP PRN ×2 (03:47→15:25)
[2021-01-11] MEDS ORDERED: ONDANSETRON 4 MG/2 ML VIAL IVP STA (06:59)
[2021-01-11] MEDS ORDERED: PANTOPRAZOLE 40 MG TABLET PO SCH (07:30)
[2021-01-11] MEDS: IPRATROPIUM 0.5 MG/2.5 ML NEBU INHALATION SCH ×4 (08:25→19:50)
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
--- NOTE | 2021-01-11 11:04 | P.PN ---
Subjective Progress Note Date: 01/11/21 Patient is still nauseated with some vomiting episodes. No abdominal pain, no chest pain, no shortness of breath. Objective - Vital Signs Vital signs: Vital Signs Temp 99.3 F 01/11/21 07:40 Pulse 74 01/11/21 07:40 Resp 18 01/11/21 08:00 BP 164/102 01/11/21 07:40 Pulse Ox 97 01/11/21 07:40 Intake & Output 01/10/21 01/11/21 01/11/21 18:59 06:59 18:59 Weight 163.293 kg 163.293 kg Other: Voiding Method External Catheter - Exam Constitutional: No acute distress, conversant, pleasant Eyes: Anicteric sclerae, moist conjunctiva, no lid-lag, PERRLA ENMT: NC/AT,Oropharynx clear, no erythema, exudates Neck:Supple, FROM, no masses, or JVD, Lungs: Clear to auscultation, Clear to percussion, Normal respiratory effort, no accessory muscle use Cardiovascular: Heart regular in rate and rhythm, No murmurs, gallops, or rubs no peripheral edema Abdominal: Soft Nontender, non distended, no guarding, no rebound or rigidity, obese Skin: Normal temperature, tone, texture, turgor, No induration No subcutaneous nodules, No rash, lesions, No ulcers Extremities:No digital cyanosis No clubbing, Pedal pulses intact and symmetrical Radial pulses intact and symmetrical Normal gait and station, No calf tenderness Psychiatric: Alert and oriented to person, place and time, Appropriate affect Intact judgement Neuro: Muscles Strength 5/5 in all 4 extremities, Sensation to light touch grossly present throughout, Cranial nerves II-XII grossly intact. No focal sensory deficits - Labs CBC & Chem 7: 01/10/21 20:38 01/10/21 20:38 Labs: Abnormal Lab Results - Last 24 Hours (Table) 01/10/21 01/10/21 01/10/21 Range/Units 20:38 20:38 20:38 Neutrophils # 9.2 H (1.3-7.7) k/uL Lymphocytes # 0.7 L (1.0-4.8) k/uL Glucose 165 H (74-99) mg/dL Alkaline Phosphatase 172 H (38-126) U/L Urine Appearance Cloudy H (Clear) Urine Protein 1+ H (Negative) Urine Glucose (UA) Trace H (Negative) Urine Ketones 1+ H (Negative) Urine Blood Trace H (Negative) Urine Bilirubin 1+ H (Negative) Ur Leukocyte Esterase Trace H (Negative) Amorphous Sediment Occasional H (None) /hpf Urine Mucus Rare H (None) /hpf Assessment and Plan Assessment: nausea vomiting and diarrhea possible underlying gastroenteritis rule out C. diff Check C. diff Hold diuretics Supportive care, start normal saline at 50 mL per hour Obtain CT abdomen pelvis Left-sided chest pain Cardiology input appreciated, medical management Chronic CHF currently compensated, unknown systolic or diastolic Hold diuretics due to repeated nausea vomiting and diarrhea as above Hypothyroid Resume levothyroxine COPD chronic without exacerbation Resume inhalers Supplemental oxygen as needed History of venous thromboembolic Paroxysmal A. fib on Eliquis Chronic pain Resume Percocet GI prophylaxis CODE STATUS: Full code DVT prophylaxis: On Eliquis Discussed with: Patient, and nurse Anticipated discharge place: Home likely tomorrow
[2021-01-11] MEDS: PROMETHAZINE 25 MG TAB PO PRN ×2 (11:35→16:43)
[2021-01-11] MEDS: LEVOTHYROXINE 75 MCG TAB PO SCH (13:37)
[2021-01-11] MEDS: ATORVASTATIN 40 MG TAB PO SCH (13:37)
[2021-01-11] MEDS: PREGABALIN 50 MG CAP PO SCH ×2 (13:37→19:57)
[2021-01-11] MEDS: RIFAXIMIN 550 MG TABLET PO SCH ×2 (13:37→19:57)
[2021-01-11] MEDS: PANTOPRAZOLE 40 MG/10 ML VIAL IVP SCH ×2 (13:37→19:58)
[2021-01-11] MEDS: APIXABAN 5 MG TAB PO SCH ×2 (13:38→19:57)
--- NOTE | 2021-01-11 13:57 | CT ---
EXAMINATION TYPE: CT abdomen pelvis wo con DATE OF EXAM: 01/11/2021 COMPARISON: 05/23/2019 INDICATION: nausea, vomiting, diarrhea DLP: 2870.3 mGycm, Automated exposure control for dose reduction was used. CONTRAST: 0 mL of Isovue 300. Study performed without Oral Contrast TECHNIQUE: Axial images were obtained from above the diaphragm to the pubic rami in the axial plane a t 5 mm thick sections. Reconstructed images are reviewed on the computer in the coronal plane. FINDINGS: Limited CT sections are obtained the lung bases. The lung bases are clear. CT ABDOMEN: Liver: Normal Spleen: Normal Pancreas: There is some mild fatty infiltration of the pancreas. Adrenal glands: The adrenal glands are normal. Gallbladder: Normal Kidneys: No masses are evident. No hydronephrosis is present. No cysts are present. Delayed images were obtained through the kidneys, which remain unremarkable. Aorta: Vascular calcification is within the aorta. Inferior vena cava: Normal. CT PELVIS: There is a periumbilical hernia containing mesenteric fat. No loops of bowel are normal. T he opening is approximately 5.6 cm. There is left hip prosthesis causing limitation on the lower pelvis evaluation. Study is limited lacking contrast limiting bowel evaluation . Appendix: Not identified. No dilated tubular structure or inflammatory changes evident. Urinary bladder: Normal. Genitourinary structures: Prostate appears normal Osseous structures: No suspicious lytic or sclerotic lesions. IMPRESSIONS: 1. Periumbilical hernia without loops of bowel or bowel obstruction.
[2021-01-11] MEDS: SODIUM CHLORIDE 0.9% 1,000 ML IV SCH (16:30)
[2021-01-11] MEDS: traZODone HCL 50 MG TAB PO SCH (19:58)
[2021-01-12] MEDS: HYDROmorphone 0.5 MG/0.5 ML SYRINGE IVP PRN ×7 (01:54→23:16)
[2021-01-12] MEDS: PROMETHAZINE 25 MG TAB PO PRN ×4 (03:34→19:25)
[2021-01-12] MEDS: ONDANSETRON 4 MG/2 ML VIAL IVP PRN ×2 (05:53→18:09)
[2021-01-12] MEDS: LEVOTHYROXINE 75 MCG TAB PO SCH (05:54)
[2021-01-12] MEDS: IPRATROPIUM 0.5 MG/2.5 ML NEBU INHALATION SCH ×4 (07:46→19:46)
[2021-01-12] MEDS: PREGABALIN 50 MG CAP PO SCH ×2 (08:23→19:24)
[2021-01-12] MEDS: ATORVASTATIN 40 MG TAB PO SCH (08:23)
[2021-01-12] MEDS: PANTOPRAZOLE 40 MG/10 ML VIAL IVP SCH ×2 (08:23→19:24)
[2021-01-12] MEDS: APIXABAN 5 MG TAB PO SCH ×2 (08:23→19:24)
[2021-01-12 08:47] LABS: HGB 9.3 g/dL (12.0-15.0); MCH 25.8 pg (27.0-32.0); MCV 85.9 fL (80.0-97.0); Mean Platelet Volume 9.8 fL (9.5-12.2); Platelet Count 299 X 10*3/uL (140-440); RBC 3.61 X 10*6/uL (4.10-5.20); RDW 14.8 % (11.5-14.5); WBC 6.37 X 10*3/uL (4.50-10.00)
[2021-01-12] MEDS: RIFAXIMIN 550 MG TABLET PO SCH ×2 (09:08→19:24)
[2021-01-12] MEDS: SODIUM CHLORIDE 0.9% 1,000 ML IV SCH (09:10)
[2021-01-12 09:24] LABS: African American GFR (CKD) 85.4 (60.0-200.0); Albumin 3.7 g/dL (3.80-4.90); Albumin/Globulin Ratio 2.06 (1.60-3.17); Anion Gap 7.9 mmol/L (4.00-12.00); BUN/Creat Ratio 11.25 Ratio (12.00-20.00); Calcium 9.1 mg/dL (8.7-10.3); Carbon Dioxide 26.1 mmol/L (21.6-31.8); Globulin 1.8 g/dL (1.6-3.3); Non-African American GFR(CKD) 73.7 (60.0-200.0); Potassium 3.2 mmol/L (3.5-5.5); Total Bilirubin 0.5 mg/dL (0.2-1.2); Total Protein 5.5 g/dL (6.2-8.2)
[2021-01-12] MEDS: oxyCODONE-APAP 7.5-325MG 1 EACH TAB PO PRN ×2 (11:11→18:10)
[2021-01-12 11:38] LABS: Basophils # (A) 0.06 X 10*3/uL (0.00-0.10); Basophils % (A) 0.9 %; Eosinophils # (A) 0.21 X 10*3/uL (0.04-0.35); Eosinophils % (A) 3.3 %; Lymphocytes # (A) 1.73 X 10*3/uL (0.90-5.00); Lymphocytes % (A) 27.2 %; Monocytes # (A) 0.44 X 10*3/uL (0.20-1.00); Monocytes % (A) 6.9 %; Neutrophils % (A) 61.2 %
--- NOTE | 2021-01-12 16:32 | P.PN ---
Subjective Progress Note Date: 01/12/21 No new complaints. Pt reports ongoing diarrhea, but does report improved appetite. Objective - Vital Signs Vital signs: Vital Signs Temp 98.4 F 01/12/21 14:34 Pulse 81 01/12/21 14:34 Resp 18 01/12/21 14:34 BP 109/63 01/12/21 14:34 Pulse Ox 95 01/12/21 14:34 Intake & Output 01/11/21 01/12/21 01/12/21 18:59 06:59 18:59 Intake Total 400 Output Total 100 0 Balance -100 400 Weight 163.293 kg Intake: Intake, IV Titration 400 Amount Sodium Chloride 0.9% 1, 400 000 ml @ 50 mls/hr IV . Q20H [facility] Rx#:[id number] Output: Urine 100 0 Other: Voiding Method External Catheter External Catheter External Catheter # Voids 1 0 # Bowel Movements 1 - Exam Gen: awake, alert, morbidly obese HEENT: normocephalic, atraumatic, good hearing acuity, moist mucous membranes Resp: good air exchange, breathing comfortably with no accessory muscle use, clear to auscultation bilaterally CVS: good distal perfusion x 4, regular rate and rhythm without murmurs GI: soft, NTTP, ND, appropriate bowel sounds : no SPT, no CVAT, allen catheter is present MSK: no pitting edema, no clubbing Neuro: non-focal, moving all extremities Psych: cooperative, euthymic mood - Labs CBC & Chem 7: 01/12/21 03:27 01/12/21 03:27 Labs: Abnormal Lab Results - Last 24 Hours (Table) 01/12/21 01/12/21 Range/Units 03:27 03:27 RBC 3.61 L (4.10-5.20) X 10*6/uL Hgb 9.3 L (12.0-15.0) g/dL Hct 31.0 L (37.2-46.3) % MCH 25.8 L (27.0-32.0) pg MCHC 30.0 L (32.0-37.0) g/dL RDW 14.8 H (11.5-14.5) % Potassium 3.2 L (3.5-5.5) mmol/L BUN/Creatinine Ratio 11.25 L (12.00-20.00) Ratio Alkaline Phosphatase 127 H (41-126) U/L Total Protein 5.5 L (6.2-8.2) g/dL Albumin 3.70 L (3.80-4.90) g/dL Assessment and Plan Assessment: Nausea, vomiting, diarrhea -Admit to telemetry, observation -C. diff pending -Stool occult blood pending -IV fluids -CT abdomen/pelvis negative for acute pathology -Daily CBC, BMP, magnesium -PT/OT Chronic congestive heart failure, unknown systolic or diastolic -Holding diuretics -cardiology consulted, appreciate recs -will not repeat echo Hyperlipidemia Hypothyroidism COPD without exacerbation History of DVT Paroxysmal atrial fibrillation Chronic pain -Resume levothyroxine -Resume inhalers -Supplemental oxygen as needed -Resume Percocet -Resume Eliquis -Resume statin CODE STATUS: Full code DVT prophylaxis: On Eliquis Anticipated discharge place: Home likely tomorrow
[2021-01-12] MEDS: traZODone HCL 50 MG TAB PO SCH (19:25)
[2021-01-13] MEDS: oxyCODONE-APAP 7.5-325MG 1 EACH TAB PO PRN ×4 (02:08→20:35)
[2021-01-13] MEDS: ONDANSETRON 4 MG/2 ML VIAL IVP PRN ×3 (02:09→23:16)
[2021-01-13] MEDS: SODIUM CHLORIDE 0.9% 1,000 ML IV SCH ×2 (04:23→22:51)
[2021-01-13] MEDS: HYDROmorphone 0.5 MG/0.5 ML SYRINGE IVP PRN ×4 (05:52→23:11)
[2021-01-13] MEDS: LEVOTHYROXINE 75 MCG TAB PO SCH (05:52)
[2021-01-13] MEDS: IPRATROPIUM 0.5 MG/2.5 ML NEBU INHALATION SCH ×3 (07:16→20:11)
[2021-01-13] MEDS: PROMETHAZINE 25 MG TAB PO PRN ×3 (07:57→20:35)
[2021-01-13 08:20] LABS: Calcium 8.5 mg/dL (8.4-10.2); Potassium 4.4 mmol/L (3.5-5.1)
[2021-01-13 09:10] LABS: Basophils # (A) 0.05 X 10*3/uL (0.00-0.10); Basophils % (A) 0.8 %; Eosinophils # (A) 0.42 X 10*3/uL (0.04-0.35); Eosinophils % (A) 6.6 %; HCT 32.4 % (37.2-46.3); HGB 9.8 g/dL (12.0-15.0); Lymphocytes # (A) 1.54 X 10*3/uL (0.90-5.00); Lymphocytes % (A) 24.3 %; MCH 26.3 pg (27.0-32.0); MCHC 30.2 g/dL (32.0-37.0); MCV 87.1 fL (80.0-97.0); Mean Platelet Volume 9.8 fL (9.5-12.2); Monocytes # (A) 0.54 X 10*3/uL (0.20-1.00); Monocytes % (A) 8.5 %; Neutrophils # (A) 3.77 X 10*3/uL (1.80-7.70); Neutrophils % (A) 59.6 %; Platelet Count 289 X 10*3/uL (140-440); RBC 3.72 X 10*6/uL (4.10-5.20); RDW 14.8 % (11.5-14.5); WBC 6.33 X 10*3/uL (4.50-10.00)
[2021-01-13] MEDS: PANTOPRAZOLE 40 MG TABLET PO SCH ×2 (09:35→20:36)
[2021-01-13] MEDS: ATORVASTATIN 40 MG TAB PO SCH (09:35)
[2021-01-13] MEDS: PREGABALIN 50 MG CAP PO SCH ×2 (09:35→20:36)
[2021-01-13] MEDS: RIFAXIMIN 550 MG TABLET PO SCH ×2 (09:35→20:36)
[2021-01-13] MEDS: APIXABAN 5 MG TAB PO SCH ×2 (09:35→20:36)
[2021-01-13 10:00] LABS: BUN/Creat Ratio 12.22 Ratio (12.00-20.00)
--- NOTE | 2021-01-13 12:14 | P.PN ---
Subjective Progress Note Date: 01/13/21 No new complaints today. Patient had 2-3 episodes of diarrhea yesterday, improved from admission. Her stool was negative for blood or C. diff. Her hemoglobin returned to baseline. Objective - Vital Signs Vital signs: Vital Signs Temp 97.6 F 01/13/21 07:00 Pulse 75 01/13/21 07:00 Resp 16 01/13/21 07:00 BP 122/77 01/13/21 07:00 Pulse Ox 93 L 01/13/21 07:00 Intake & Output 01/12/21 01/13/21 01/13/21 18:59 06:59 18:59 Intake Total 400 Output Total 0 Balance 400 Intake: Intake, IV Titration 400 Amount Sodium Chloride 0.9% 1, 400 000 ml @ 50 mls/hr IV . Q20H [facility] Rx#:[id number] Output: Urine 0 Other: Voiding Method External Catheter External Catheter External Catheter # Voids 0 0 # Bowel Movements 1 1 - Exam Gen: awake, alert, morbidly obese HEENT: normocephalic, atraumatic, good hearing acuity, moist mucous membranes Resp: good air exchange, breathing comfortably with no accessory muscle use, clear to auscultation bilaterally CVS: good distal perfusion x 4, regular rate and rhythm without murmurs GI: soft, NTTP, ND, appropriate bowel sounds : no SPT, no CVAT, allen catheter is present MSK: no pitting edema, no clubbing Neuro: non-focal, moving all extremities Psych: cooperative, euthymic mood - Labs CBC & Chem 7: 01/13/21 06:07 01/13/21 06:07 Labs: Abnormal Lab Results - Last 24 Hours (Table) 01/13/21 01/13/21 Range/Units 06:07 06:07 RBC 3.72 L (4.10-5.20) X 10*6/uL Hgb 9.8 L (12.0-15.0) g/dL Hct 32.4 L (37.2-46.3) % MCH 26.3 L (27.0-32.0) pg MCHC 30.2 L (32.0-37.0) g/dL RDW 14.8 H (11.5-14.5) % Eosinophils # 0.42 H (0.04-0.35) X 10*3/uL Sodium 136 L (137-145) mmol/L Assessment and Plan Assessment: Nausea, vomiting, diarrhea -Admit to telemetry, observation -C. diff negative -Stool occult blood negative -IV fluids -CT abdomen/pelvis negative for acute pathology -Daily CBC, BMP, magnesium -PT/OT Chronic congestive heart failure, unknown systolic or diastolic -Holding diuretics -cardiology consulted, appreciate recs -will not repeat echo Hyperlipidemia Hypothyroidism COPD without exacerbation History of DVT Paroxysmal atrial fibrillation Chronic pain -Resume levothyroxine -Resume inhalers -Supplemental oxygen as needed -Resume Percocet -Resume Eliquis -Resume statin CODE STATUS: Full code DVT prophylaxis: On Eliquis Anticipated discharge place: Home likely tomorrow
[2021-01-13] MEDS: traZODone HCL 50 MG TAB PO SCH (20:36)
[2021-01-13] MEDS ORDERED: MELATONIN 3 MG TABLET PO SCH (21:45)
[2021-01-14 02:37] VITALS: RESP 16
[2021-01-14] MEDS: oxyCODONE-APAP 7.5-325MG 1 EACH TAB PO PRN ×2 (04:27→11:56)
[2021-01-14] MEDS: PROMETHAZINE 25 MG TAB PO PRN ×2 (04:28→11:58)
[2021-01-14] MEDS: LEVOTHYROXINE 75 MCG TAB PO SCH (05:41)
[2021-01-14] MEDS: IPRATROPIUM 0.5 MG/2.5 ML NEBU INHALATION SCH ×3 (07:24→15:15)
[2021-01-14] MEDS: ONDANSETRON 4 MG/2 ML VIAL IVP PRN (08:40)
[2021-01-14] MEDS: HYDROmorphone 0.5 MG/0.5 ML SYRINGE IVP PRN (08:40)
[2021-01-14] MEDS: PREGABALIN 50 MG CAP PO SCH (08:41)
[2021-01-14] MEDS: APIXABAN 5 MG TAB PO SCH (08:41)
[2021-01-14] MEDS: RIFAXIMIN 550 MG TABLET PO SCH (08:41)
[2021-01-14] MEDS: ATORVASTATIN 40 MG TAB PO SCH (08:41)
[2021-01-14] MEDS: PANTOPRAZOLE 40 MG TABLET PO SCH (08:41)
--- NOTE | 2021-01-14 12:49 | P.DS ---
Providers Date of admission: 01/14/21 09:10 Expected date of discharge: 01/14/21 Attending physician: Laura Wiley MD Primary care physician: Physician Nonstaff Hospital Course: HPI: 70-year-old female with complex past medical history including chronic CHF, hypothyroid, paroxysmal A. fib Patient comes in due to refractory nausea vomiting and diarrhea for the past 1 week denies any fevers or chills denies any abdominal pain denies any recent traveling or sick contacts denies any unsanitary food or drink denies any urinary symptoms. She denies any GI bleeding patient's on blood smear for A. fib. Patient decided to come in today as she was getting frustrated with the symptoms and started having some left-sided upper chest pain which she claims that his chronic has been going on for couple months and she doesn't believe that this pain is related to her heart. If sinus related to any activity coughing or deep breath but she can identify couple spots on around her breast and the other one in her left armpit that she thinks is a source of the pain and she was planning on getting some mammograms done to rule out any underlying cancer. In the ED blood work was unremarkable patient was admitted for close monitoring and cardiology eval for chest pain Hospital Course: Nausea, vomiting, diarrhea Patient was admitted for nausea, vomiting, diarrhea. Her evaluation included CT abdomen/pelvis which was notably negative for any acute pathology. She also underwent C. diff, [employer] blood testing of the stool which was negative. She had approximately 3-4 loose bowel movements daily. She is also treated with IV fluids. Starting proximally 48 hours prior to discharge, patient started tolerating a regular diet, and her bowel movements improved. Suspicion for viral gastroenteritis as he had etiology for symptoms; therefore, patient was counseled on self-limiting nature of the disease, and recommended outpatient follow-up with PCP. Given patient's recurrent hospitalizations, as well as overall weakness, recommendation was made to obtain physical therapy/occupational therapy in an inpatient rehab setting, however, patient refused an preference of having PT/OT at home. Home care services were arranged on discharge. Chronic congestive heart failure, unknown systolic or diastolic Given patient's presenting symptoms, patient was given IV fluids as opposed to diuretics. Cardiology consult on this patient and agreed with the plan. Patient did not experience symptoms of dyspnea, orthopnea, chest heaviness during admission. Hyperlipidemia Hypothyroidism COPD without exacerbation History of DVT Paroxysmal atrial fibrillation Chronic pain No changes to her home medications on discharge I spent 45 minutes corrugating this complex discharge Assessment: Gen: awake, alert, morbidly obese HEENT: normocephalic, atraumatic, good hearing acuity, moist mucous membranes Resp: good air exchange, breathing comfortably with no accessory muscle use, clear to auscultation bilaterally CVS: good distal perfusion x 4, regular rate and rhythm without murmurs GI: soft, NTTP, ND, appropriate bowel sounds : no SPT, no CVAT, allne catheter is present MSK: no pitting edema, no clubbing Neuro: non-focal, moving all extremities Psych: cooperative, euthymic mood Patient Condition at Discharge: Good Plan - Discharge Summary Discharge Rx Participant: Yes New Discharge Prescriptions: Continue Levothyroxine Sodium [Synthroid] 150 mcg PO DAILY Pregabalin 50 mg PO BID Ondansetron Odt [Zofran ODT] 8 mg PO BID PRN PRN Reason: Nausea Atorvastatin [Lipitor] 40 mg PO DAILY Apixaban [Eliquis] 5 mg PO BID #60 tab Tiotropium 2.5 Mcg/Puff [Spiriva Respimat 2.5 Mcg] 2 puff INHALATION RT-DAILY Rifaximin [Xifaxan] 550 mg PO TID traZODone HCL 50 mg PO HS oxyCODONE HCL/ACETAMINOPHEN [Percocet 7.5-325 mg] 1 tab PO Q6HR PRN PRN Reason: Pain Discharge Medication List Levothyroxine Sodium [Synthroid] 150 mcg PO DAILY 06/18/18 [History] Pregabalin 50 mg PO BID 02/11/20 [History] Ondansetron Odt [Zofran ODT] 8 mg PO BID PRN 05/20/20 [History] Atorvastatin [Lipitor] 40 mg PO DAILY 09/24/20 [History] Apixaban [Eliquis] 5 mg PO BID #60 tab 09/28/20 [Rx] Rifaximin [Xifaxan] 550 mg PO TID 10/14/20 [History] Tiotropium 2.5 Mcg/Puff [Spiriva Respimat 2.5 Mcg] 2 puff INHALATION RT-DAILY 10/14/20 [History] oxyCODONE HCL/ACETAMINOPHEN [Percocet 7.5-325 mg] 1 tab PO Q6HR PRN 01/11/21 [History] traZODone HCL 50 mg PO HS 01/11/21 [History] Follow up Appointment(s)/Referral(s): Nonstaff,Physician [Primary Care Provider] - 1-2 days Discharge Disposition: HOME WITH HOME HEALTH SERVICES
[2021-01-14 14:05] VITALS: BP 106/64; PULSE 78; TEMP 98
[2021-01-14] MEDS ORDERED: oxyCODONE-APAP 7.5-325MG 1 EACH TAB PO STA (14:07)
== END 2021-01-14 17:30 | disposition home health service (06) | DRG 392 ==
LOC: EC 18:19 → 6NMEDSUR 01-11 → OBSVTOIN 01-14 09:10
PROVIDERS: ADMIT Internal Medicine; ATTEND Internal Medicine
DX: K52.9 Noninfective gastroenteritis and colitis, unspecified (principal); Z68.44 Body mass index [BMI] 60.0-69.9, adult; Z20.822 Contact with and (suspected) exposure to COVID-19; I48.0 Paroxysmal atrial fibrillation; I11.0 Hypertensive heart disease with heart failure; I50.9 Heart failure, unspecified; J44.9 Chronic obstructive pulmonary disease, unspecified; E66.01 Morbid (severe) obesity due to excess calories; R07.89 Other chest pain; E03.9 Hypothyroidism, unspecified; E78.5 Hyperlipidemia, unspecified; F32.9 Major depressive disorder, single episode, unspecified; N39.3 Stress incontinence (female) (male); K58.9 Irritable bowel syndrome, unspecified; L30.9 Dermatitis, unspecified; K44.9 Diaphragmatic hernia without obstruction or gangrene; I34.1 Nonrheumatic mitral (valve) prolapse; M51.25 Other intervertebral disc displacement, thoracolumbar region; M51.27 Other intervertebral disc displacement, lumbosacral region; K22.70 Barrett's esophagus without dysplasia; M15.9 Polyosteoarthritis, unspecified; R01.1 Cardiac murmur, unspecified; I25.2 Old myocardial infarction; F41.9 Anxiety disorder, unspecified; G89.29 Other chronic pain; Z96.653 Presence of artificial knee joint, bilateral; Z90.710 Acquired absence of both cervix and uterus; Z87.442 Personal history of urinary calculi; Z87.19 Personal history of other diseases of the digestive system; Z86.73 Personal history of transient ischemic attack (TIA), and cerebral infarction without residual deficits; Z86.718 Personal history of other venous thrombosis and embolism; Z86.711 Personal history of pulmonary embolism; Z85.41 Personal history of malignant neoplasm of cervix uteri; Z79.899 Other long term (current) drug therapy; Z79.890 Hormone replacement therapy; Z79.01 Long term (current) use of anticoagulants; Z87.440 Personal history of urinary (tract) infections; Z87.828 Personal history of other (healed) physical injury and trauma; Z87.01 Personal history of pneumonia (recurrent); Z91.041 Radiographic dye allergy status; Z88.6 Allergy status to analgesic agent; Z88.8 Allergy status to other drugs, medicaments and biological substances; Z96.642 Presence of left artificial hip joint; Z98.61 Coronary angioplasty status; Z87.11 Personal history of peptic ulcer disease; Z79.52 Long term (current) use of systemic steroids
CPT/HCPCS: 36415; 71046; 74176; 80048; 80053; 81001; 82272; 83605; 83690; 83735; 84484; 85025; 87324; 87635; 93005; 96361; 96374; 96375; 96376; 99285

== ENCOUNTER 2021-01-27 19:57 | Observation (INO) | payer MEDICARE, OTHER ==
[2021-01-27] MEDS ORDERED: IPRATROPIUM-ALBUTEROL 3 ML NEB INHALATION STA (20:29)
[2021-01-27] MEDS ORDERED: methylPREDNISolone SOD SUCCI 125 MG/2 ML VIAL IV STA (20:30)
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
[2021-01-27] MEDS ORDERED: methylPREDNISolone SOD SUCCI 125 MG/2 ML VIAL IM ONE (21:26)
--- NOTE | 2021-01-27 21:36 | XR ---
EXAMINATION TYPE: XR chest 2V DATE OF EXAM: 01/27/2021 COMPARISON: 01/10/2021 HISTORY: Abdominal pain There is no heart failure nor confluent pneumonic infiltrate. Costophrenic angles are clear. Thoracic aorta is atheromatous. Exam limited by patient's size. IMPRESSION: No active cardiopulmonary disease. No adverse change.
[2021-01-27] MEDS ORDERED: HYDROcodone/APAP 7.5-325MG 1 EACH TAB PO ONE (22:02)
[2021-01-27 22:03] LABS: Basophils % (A) 1 %; Eosinophils # (A) 0.2 k/uL (0-0.7); Eosinophils % (A) 3 %; HCT 32.8 % (34.0-46.0); HGB 11.1 gm/dL (11.4-16.0); Lymphocytes # (A) 1.1 k/uL (1.0-4.8); Lymphocytes % (A) 14 %; MCH 27.4 pg (25.0-35.0); MCHC 33.8 g/dL (31.0-37.0); MCV 81.1 fL (80.0-100.0); Mean Platelet Volume 6.9; Monocytes # (A) 0.4 k/uL (0-1.0); Monocytes % (A) 5 %; Neutrophils % (A) 77 %; Platelet Count 262 k/uL (150-450); RBC 4.04 m/uL (3.80-5.40); RDW 14.5 % (11.5-15.5); WBC 7.8 k/uL (3.8-10.6)
[2021-01-27 22:16] LABS: ALT 14 U/L (4-34); African American GFR (CKD) >90 (>60 ml/min/1.73 sqM); Albumin 3.8 g/dL (3.5-5.0); Anion Gap 8 mmol/L; Blood Urea Nitrogen 8 mg/dL (7-17); Calcium 9.2 mg/dL (8.4-10.2); Carbon Dioxide 29 mmol/L (22-30); Chloride 106 mmol/L (98-107); Glucose 122 mg/dL (74-99); Non-African American GFR(CKD) 90 (>60 ml/min/1.73 sqM); Sodium 143 mmol/L (137-145); Total Bilirubin 0.5 mg/dL (0.2-1.3); Total Protein 6.4 g/dL (6.3-8.2)
[2021-01-27 22:31] LABS: INR 0.9 (<1.2); Partial Thromboplastin Time 22.6 sec (22.0-30.0); Prothrombin Time 10.1 sec (9.0-12.0)
[2021-01-27 22:45] LABS: Potassium 4.2 mmol/L (3.5-5.1)
[2021-01-27 22:46] LABS: AST 26 U/L (14-36); Alkaline Phosphatase 121 U/L (38-126); Magnesium 1.7 mg/dL (1.6-2.3)
[2021-01-27] MEDS ORDERED: NALOXONE 0.4 MG/ML 1 ML VIAL IV PRN (22:58)
[2021-01-27] MEDS ORDERED: IPRATROPIUM-ALBUTEROL 3 ML NEB INHALATION PRN (23:00)
[2021-01-27] MEDS ORDERED: ONDANSETRON 4 MG/2 ML VIAL IVP STA (23:26)
[2021-01-27] MEDS ORDERED: MORPHINE SULFATE 4 MG/ML SYRINGE IVP STA (23:34)
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
[2021-01-28] MEDS: APIXABAN 5 MG TAB PO SCH ×3 (01:34→20:08)
[2021-01-28] MEDS: traZODone HCL 50 MG TAB PO SCH ×2 (01:35→20:08)
[2021-01-28] MEDS ORDERED: HYDROcodone/APAP 5-325MG 1 EACH TAB PO STA (02:45)
[2021-01-28] MEDS ORDERED: MORPHINE SULFATE 4 MG/ML SYRINGE IVP STA (03:02)
[2021-01-28 04:01] LABS: Appearance,Urine Clear (Clear); Bacteria,Urine Rare /hpf; Bilirubin,Urine Negative (Negative); Blood,Urine Negative (Negative); Color,Urine Yellow; Glucose,Urine (UA) Negative (Negative); Ketones,Urine Negative (Negative); Leukocyte Esterase,Urine Negative (Negative); Mucus,Urine Rare /hpf; Nitrite,Urine Positive (Negative); PH, Urine 5.5 (5.0-8.0); Protein,Urine Negative (Negative); Specific Gravity,Urine 1.022 (1.001-1.035); Squamous Epithelial Cell,Urine <1 /hpf (0-4); Urobilinogen,Urine <2.0 mg/dL (<2.0); WBC,Urine 1 /hpf (0-5)
[2021-01-28] MEDS: HYDROcodone/APAP 7.5-325MG 1 EACH TAB PO PRN ×5 (04:30→23:14)
[2021-01-28] MEDS: LEVOTHYROXINE 75 MCG TAB PO SCH (05:10)
[2021-01-28] MEDS: methylPREDNISolone SOD SUCCI 125 MG/2 ML VIAL IV SCH ×4 (05:10→23:15)
[2021-01-28] MEDS: PREGABALIN 50 MG CAP PO SCH ×2 (08:04→20:08)
[2021-01-28] MEDS: ATORVASTATIN 40 MG TAB PO SCH (08:05)
[2021-01-28] MEDS: IPRATROPIUM 0.5 MG/2.5 ML NEBU INHALATION SCH ×4 (08:19→20:26)
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
--- NOTE | 2021-01-28 15:42 | P.PN ---
Subjective Progress Note Date: 01/28/21 Patient's report that her breathing is little bit better compared to yesterday but she is not back to baseline. No acute events overnight. No bowel movement since admission. Diarrhea resolved. Objective - Vital Signs Vital signs: Vital Signs Temp 98.5 F 01/28/21 14:00 Pulse 86 01/28/21 14:00 Resp 20 01/28/21 14:00 BP 145/83 01/28/21 14:00 Pulse Ox 93 L 01/28/21 14:00 Intake & Output 01/27/21 01/28/21 01/28/21 18:59 06:59 18:59 Output Total 500 1000 Balance -500 -1000 Weight 161.479 kg Output: Urine 500 1000 Other: Voiding Method External Catheter Bedside Commode Diaper External Catheter # Bowel Movements 1 - Exam General: The patient is awake and alert, in no distress Eye: there is normal conjunctiva bilaterally. Neck: The neck is supple, there is no JVD. Cardiovascular: Normal S1-S2, no S3-S4, no murmurs. Respiratory: Lungs are diminished with no obvious wheezing Gastrointestinal: Abdomen is soft, nontender Musculoskeletal: There is no pedal edema. Neurological:. Speech is normal. Skin: Skin is warm and dry - Labs CBC & Chem 7: 01/27/21 21:24 01/27/21 21:24 Labs: Abnormal Lab Results - Last 24 Hours (Table) 01/27/21 01/27/21 01/28/21 Range/Units 21:24 21:24 01:38 Hgb 11.1 L (11.4-16.0) gm/dL Hct 32.8 L (34.0-46.0) % Glucose 122 H (74-99) mg/dL Urine Nitrite Positive H (Negative) Urine Bacteria Rare H (None) /hpf Urine Mucus Rare H (None) /hpf Assessment and Plan Assessment: This is a 70-year-old female with past medical history noted below that presented to the emergency room with worsening shortness of breath. Patient was evaluated in the ER and admitted to the hospital for further management of her medical problems noted below. 1. Acute COPD exacerbation, started on bronchodilators and IV steroids. Pulmonary consulted for further evaluation. 2. Acute on chronic hypoxic respiratory failure on home O2 3. Uncomplicated UTI, started on IV ceftriaxone awaiting urine culture 4. Chronic medical problems, hypothyroidism, chronic low back pain, chronic diastolic heart failure
[2021-01-29] MEDS ORDERED: MORPHINE SULFATE 4 MG/ML SYRINGE IVP STA (01:05)
[2021-01-29] MEDS: HYDROcodone/APAP 7.5-325MG 1 EACH TAB PO PRN ×2 (04:25→08:49)
[2021-01-29] MEDS: methylPREDNISolone SOD SUCCI 125 MG/2 ML VIAL IV SCH (05:32)
[2021-01-29] MEDS: LEVOTHYROXINE 75 MCG TAB PO SCH (05:32)
[2021-01-29] MEDS: PREGABALIN 50 MG CAP PO SCH (08:49)
[2021-01-29] MEDS: APIXABAN 5 MG TAB PO SCH (08:49)
[2021-01-29] MEDS: ATORVASTATIN 40 MG TAB PO SCH (08:49)
[2021-01-29 09:01] VITALS: BP 156/76; PULSE 72; RESP 18; TEMP 97.7
[2021-01-29] MEDS: IPRATROPIUM 0.5 MG/2.5 ML NEBU INHALATION SCH ×2 (09:10→12:13)
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
--- NOTE | 2021-01-29 10:49 | P.PN ---
Subjective Progress Note Date: 01/29/21 Principal diagnosis: Acute COPD exacerbation Tracheobronchitis Acute on chronic hypoxic respiratory failure Severe morbid obesity Intermittent diarrhea and not resolve Chronic atrial fibrillation and diastolic heart failure related to it on direct oral anticoagulant Patient is a 70-year-old morbidly obese female with the home oxygen due to congestive heart failure and severe COPD, in the last few days she's been having problems associated with shortness of breath generalized weakness ongoing diarrhea as well as breathing got worse increased cough and congestion however cough is mostly nonproductive she did response with breathing treatments her diarrhea is resolved today, 01/29/2021, patient seen eval examined during the rounds patient is on room air breathing fairly stable, complaining of swelling, torsemide has been on hold due to nausea vomiting diarrhea and poor by mouth intake, recommended to resume torsemide as she takes at home, wheezing have significantly improved, patient can be switched to oral prednisone and antibiotics agree with discharge planning recommend follow-up on outpatient basis Objective - Vital Signs Vital signs: Vital Signs Temp 97.7 F 01/29/21 08:00 Pulse 72 01/29/21 08:00 Resp 18 01/29/21 08:00 BP 156/76 01/29/21 08:00 Pulse Ox 93 L 01/29/21 09:11 Intake & Output 01/28/21 01/29/21 01/29/21 18:59 06:59 18:59 Intake Total 650 Output Total 1000 2600 Balance -1000 -1950 Weight 170.09 kg Intake: Intake, IV Titration 50 Amount cefTRIAXone 1 gm In 50 Sodium Chloride 0.9% 50 ml @ 100 mls/hr IVPB Q24H [facility] Rx#:[id number] Oral 600 Output: Urine 1000 2600 Other: Voiding Method Bedside Commode Bedside Commode Bedside Commode Diaper Diaper Diaper External Catheter External Catheter External Catheter # Bowel Movements 1 - Exam - Constitutional General appearance: morbidly obese, no acute distress - EENT Eyes: EOMI, PERRLA Ears: bilateral: normal - Neck Neck: normal ROM Carotids: bilateral: upstroke normal Thyroid: bilateral: normal size - Respiratory Respiratory: bilateral: diminished - Cardiovascular Rhythm: regular Heart sounds: normal: S1, S2 - Gastrointestinal General gastrointestinal: absent bowel sounds, distended, soft - Integumentary Integumentary: normal turgor - Neurologic Neurologic: CNII-XII intact - Musculoskeletal Musculoskeletal: generalized weakness, strength equal bilaterally - Psychiatric Psychiatric: A&O x's 3, appropriate affect, intact judgment & insight - Labs CBC & Chem 7: 01/27/21 21:24 01/27/21 21:24 Assessment and Plan Assessment: Acute COPD exacerbation Tracheobronchitis Acute on chronic hypoxic respiratory failure Severe morbid obesity Intermittent diarrhea and not resolve Chronic atrial fibrillation and diastolic heart failure related to it on direct oral anticoagulant Plan: Can be resumed on torsemide home dose, IV antibiotics and steroids can be changed to oral, agree with discharge planning and follow-up on outpatient basis Time with Patient: Greater than 30
== END 2021-01-29 12:45 | disposition home or self-care (01) ==
LOC: EC 19:57 → 4SSUR 23:05
PROVIDERS: ADMIT Internal Medicine; ATTEND Internal Medicine
DX: J44.1 Chronic obstructive pulmonary disease with (acute) exacerbation (principal); J96.21 Acute and chronic respiratory failure with hypoxia; N39.0 Urinary tract infection, site not specified; E03.9 Hypothyroidism, unspecified; G89.29 Other chronic pain; I50.32 Chronic diastolic (congestive) heart failure; M54.5 Low back pain; Z91.19 Patient's noncompliance with other medical treatment and regimen; E66.01 Morbid (severe) obesity due to excess calories; Z68.44 Body mass index [BMI] 60.0-69.9, adult; I48.20 Chronic atrial fibrillation, unspecified; Z99.81 Dependence on supplemental oxygen; R11.2 Nausea with vomiting, unspecified; R53.1 Weakness; I25.2 Old myocardial infarction; K58.9 Irritable bowel syndrome, unspecified; R32 Unspecified urinary incontinence; L30.9 Dermatitis, unspecified; F32.9 Major depressive disorder, single episode, unspecified; F41.9 Anxiety disorder, unspecified; K22.70 Barrett's esophagus without dysplasia; K58.0 Irritable bowel syndrome with diarrhea; M13.0 Polyarthritis, unspecified; Z20.822 Contact with and (suspected) exposure to COVID-19; Z86.73 Personal history of transient ischemic attack (TIA), and cerebral infarction without residual deficits; Z87.19 Personal history of other diseases of the digestive system; Z87.01 Personal history of pneumonia (recurrent); Z86.711 Personal history of pulmonary embolism; Z87.440 Personal history of urinary (tract) infections; Z85.42 Personal history of malignant neoplasm of other parts of uterus; Z85.41 Personal history of malignant neoplasm of cervix uteri; Z87.11 Personal history of peptic ulcer disease; Z87.442 Personal history of urinary calculi; Z16.24 Resistance to multiple antibiotics; Z96.653 Presence of artificial knee joint, bilateral; Z90.710 Acquired absence of both cervix and uterus; Z90.49 Acquired absence of other specified parts of digestive tract; Z79.890 Hormone replacement therapy; Z79.899 Other long term (current) drug therapy; Z79.01 Long term (current) use of anticoagulants; Z88.5 Allergy status to narcotic agent; Z88.8 Allergy status to other drugs, medicaments and biological substances; Z91.041 Radiographic dye allergy status; Z82.49 Family history of ischemic heart disease and other diseases of the circulatory system; Z82.3 Family history of stroke; Z80.1 Family history of malignant neoplasm of trachea, bronchus and lung; Z80.52 Family history of malignant neoplasm of bladder; Z82.69 Family history of other diseases of the musculoskeletal system and connective tissue
CPT/HCPCS: 96376 ×2; 96365; 96375 ×2; 96372; 99285; 36415; 94640; 94760; 93005; 83880; 80053; 83735; 84484; 85025; 85610; 85730; 81001; 87635; 71046; G0378 ×3; J2270 ×3; J2930 ×3; J2405; J0696 ×2

== ENCOUNTER 2021-02-08 05:36 | Observation (INO) | payer MEDICARE, OTHER ==
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
[2021-02-08] MEDS ORDERED: IPRATROPIUM-ALBUTEROL 3 ML NEB INHALATION STA (06:06)
[2021-02-08] MEDS ORDERED: SODIUM CHLORIDE 0.9% 1,000 ML IV STA (06:06)
[2021-02-08] MEDS ORDERED: HYDROmorphone 1 MG/ML 1 ML SYRINGE IVP PRN (06:08)
[2021-02-08] MEDS ORDERED: ONDANSETRON 4 MG/2 ML VIAL IVP PRN (06:08)
[2021-02-08] MEDS ORDERED: ONDANSETRON 4 MG/2 ML VIAL IVP STA (06:08)
[2021-02-08] MEDS ORDERED: HYDROmorphone 1 MG/ML 1 ML SYRINGE IVP STA (06:08)
[2021-02-08 06:21] LABS: Basophils # (A) 0.1 k/uL (0-0.2); Basophils % (A) 1 %; Eosinophils # (A) 0.3 k/uL (0-0.7); Eosinophils % (A) 3 %; HCT 32.8 % (34.0-46.0); HGB 11.1 gm/dL (11.4-16.0); Lymphocytes # (A) 1.7 k/uL (1.0-4.8); Lymphocytes % (A) 18 %; MCHC 33.8 g/dL (31.0-37.0); MCV 79.9 fL (80.0-100.0); Mean Platelet Volume 6.7; Monocytes # (A) 0.6 k/uL (0-1.0); Monocytes % (A) 6 %; Neutrophils # (A) 6.5 k/uL (1.3-7.7); Neutrophils % (A) 71 %; Platelet Count 296 k/uL (150-450); RDW 14.6 % (11.5-15.5); WBC 9.2 k/uL (3.8-10.6)
[2021-02-08 06:30] LABS: ALT 18 U/L (4-34); AST 22 U/L (14-36); African American GFR (CKD) >90 (>60 ml/min/1.73 sqM); Alkaline Phosphatase 130 U/L (38-126); Anion Gap 8 mmol/L; Blood Urea Nitrogen 5 mg/dL (7-17); Calcium 9.3 mg/dL (8.4-10.2); Carbon Dioxide 29 mmol/L (22-30); Chloride 103 mmol/L (98-107); Glucose 141 mg/dL (74-99); Magnesium 1.9 mg/dL (1.6-2.3); Non-African American GFR(CKD) 89 (>60 ml/min/1.73 sqM); Sodium 140 mmol/L (137-145); Total Bilirubin 0.3 mg/dL (0.2-1.3); Total Protein 6.3 g/dL (6.3-8.2)
--- NOTE | 2021-02-08 06:43 | XR ---
EXAMINATION TYPE: XR chest 1V portable DATE OF EXAM: 02/08/2021 COMPARISON: 01/27/2021 HISTORY: Short of breath TECHNIQUE: FINDINGS: There is no heart failure nor confluent pneumonic infiltrate. There is some linear density at the lung bases. Thoracic aorta is atheromatous. Exam limited by patient's size. IMPRESSION: There is probably some atelectasis at the lung bases. No heart failure seen.
[2021-02-08 06:58] LABS: INR 0.9 (<1.2); Partial Thromboplastin Time 22.2 sec (22.0-30.0); Prothrombin Time 9.8 sec (9.0-12.0)
[2021-02-08] MEDS ORDERED: IPRATROPIUM-ALBUTEROL 3 ML NEB INHALATION PRN (07:10)
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
[2021-02-08] MEDS: HYDROcodone/APAP 7.5-325MG 1 EACH TAB PO PRN ×3 (09:10→23:03)
[2021-02-08] MEDS: APIXABAN 5 MG TAB PO SCH ×2 (09:11→23:06)
[2021-02-08] MEDS: PREGABALIN 50 MG CAP PO SCH ×2 (09:11→23:05)
[2021-02-08] MEDS: LEVOTHYROXINE 75 MCG TAB PO SCH (09:11)
[2021-02-08] MEDS: ATORVASTATIN 40 MG TAB PO SCH (09:11)
[2021-02-08] MEDS: TORSEMIDE 20 MG TAB PO SCH (11:01)
[2021-02-08] MEDS ORDERED: methylPREDNISolone SOD SUCCI 125 MG/2 ML VIAL IV SCH (12:00)
[2021-02-08 14:49] VITALS: BMI 67.6
[2021-02-08] MEDS: methylPREDNISolone SOD SUCCI 40 MG/ML 1 ML VIAL IV SCH (15:11)
[2021-02-08] MEDS: IPRATROPIUM-ALBUTEROL 3 ML NEB INHALATION SCH ×3 (16:12→23:32)
[2021-02-08] MEDS ORDERED: MELATONIN 3 MG TABLET PO SCH (21:00)
[2021-02-08] MEDS ORDERED: traZODone HCL 50 MG TAB PO SCH (21:00)
[2021-02-09] MEDS ORDERED: MORPHINE SULFATE 2 MG/ML SYRINGE IVP STA (00:07)
[2021-02-09] MEDS: methylPREDNISolone SOD SUCCI 40 MG/ML 1 ML VIAL IV SCH ×2 (00:21→09:18)
[2021-02-09] MEDS: IPRATROPIUM-ALBUTEROL 3 ML NEB INHALATION SCH ×2 (04:31→08:11)
[2021-02-09] MEDS: HYDROcodone/APAP 7.5-325MG 1 EACH TAB PO PRN (06:01)
[2021-02-09] MEDS: LEVOTHYROXINE 75 MCG TAB PO SCH (06:01)
[2021-02-09 07:43] VITALS: BP 136/74; PULSE 89; RESP 16; TEMP 98.5
[2021-02-09] MEDS: PREGABALIN 50 MG CAP PO SCH (09:19)
[2021-02-09] MEDS: APIXABAN 5 MG TAB PO SCH (09:19)
[2021-02-09] MEDS: ATORVASTATIN 40 MG TAB PO SCH (09:19)
[2021-02-09] MEDS: TORSEMIDE 20 MG TAB PO SCH (09:20)
--- NOTE | 2021-02-09 10:44 | P.DS ---
Providers Date of admission: 02/08/21 07:10 Expected date of discharge: 02/09/21 Attending physician: Marycruz Hopkins Primary care physician: Physician Nonstaff Hospital Course: This is a 70-year-old female with complex past medical history noted below who presented to the emergency room with worsening shortness of breath. Patient was evaluated in the ER and be placed on observation for further management of her medical problems noted below 1. Acute COPD exacerbation, started on IV Solu-Medrol and duo nebs. Counseled extensively about the importance of nebulizer bronchodilators as patient was refusing that in the ER. Chest x-ray with no acute findings. 2. Chronic diastolic heart failure with no evidence of exacerbation. Patient is euvolemic and BNP is normal 3. History of pulmonary embolism on anticoagulation with Eliquis 4. Chronic arthritis/back pain 5. Morbid obesity 6. Medical noncompliance Patient's overall condition remained stable throughout her hospital stay. O2 sat duration around 93-94% on home oxygen of 3 L. Patient was constantly refusing bronchodilators throughout her hospital stay stating that this won't help. Patient was seen, evaluated, and examined by me this morning. She appeared comfortable and was able to speak full sentences. Her lungs were clear with mild end expiratory wheezing. Patient was requesting to be placed on BiPAP as that's what the respiratory therapist told her. I explained to her that there is no indication for BiPAP at this time as she is not having any increase in work of breathing and her oxygen saturation is within normal range. I offered her to obtain a blood gas but patient refused. Not only patient was able to speak full sentences but she was screaming loudly stating that she needs to be on BiPAP as that's what the respiratory therapist told her. Explained to the patient that there is not much else that we can offer her as long as she is refusing bronchodilators. I explained to her to her that her condition is stable to be discharged home. Patient was agreeable. Her overall prognosis is guarded. Home health care company discharged patient previously secondary to noncompliance. Patient Condition at Discharge: Poor Plan - Discharge Summary New Discharge Prescriptions: New Torsemide [Demadex] 40 mg PO DAILY #30 tab predniSONE [Deltasone] 40 mg PO DAILY 3 Days #6 tab Continue Levothyroxine Sodium [Synthroid] 150 mcg PO DAILY Pregabalin 50 mg PO BID Atorvastatin [Lipitor] 40 mg PO DAILY Apixaban [Eliquis] 5 mg PO BID #60 tab Tiotropium 2.5 Mcg/Puff [Spiriva Respimat 2.5 Mcg] 2 puff INHALATION RT-DAILY traZODone HCL 50 mg PO HS HYDROcodone/APAP 7.5-325MG [[place] 7.5-325] 1 tab PO Q6HR PRN PRN Reason: Pain rOPINIRole HCL [Requip] 0.25 mg PO BID Discontinued Ondansetron Odt [Zofran ODT] 8 mg PO BID PRN PRN Reason: Nausea Torsemide [Demadex] 100 - 150 mg PO DAILY PRN PRN Reason: Edema Discharge Medication List Levothyroxine Sodium [Synthroid] 150 mcg PO DAILY 06/18/18 [History] Pregabalin 50 mg PO BID 02/11/20 [History] Atorvastatin [Lipitor] 40 mg PO DAILY 09/24/20 [History] Apixaban [Eliquis] 5 mg PO BID #60 tab 09/28/20 [Rx] Tiotropium 2.5 Mcg/Puff [Spiriva Respimat 2.5 Mcg] 2 puff INHALATION RT-DAILY 10/14/20 [History] traZODone HCL 50 mg PO HS 01/11/21 [History] HYDROcodone/APAP 7.5-325MG [[place] 7.5-325] 1 tab PO Q6HR PRN 01/27/21 [History] rOPINIRole HCL [Requip] 0.25 mg PO BID 02/08/21 [History] Torsemide [Demadex] 40 mg PO DAILY #30 tab 02/09/21 [Rx] predniSONE [Deltasone] 40 mg PO DAILY 3 Days #6 tab 02/09/21 [Rx] Follow up Appointment(s)/Referral(s): Nonstaff,Physician [Primary Care Provider] - 1-2 days Discharge Disposition: HOME SELF-CARE
== END 2021-02-09 11:34 | disposition home or self-care (01) ==
LOC: EC 05:36 → 6NMEDSUR 07:10
PROVIDERS: ADMIT Internal Medicine; ATTEND Internal Medicine
DX: J44.1 Chronic obstructive pulmonary disease with (acute) exacerbation (principal); I50.32 Chronic diastolic (congestive) heart failure; M19.90 Unspecified osteoarthritis, unspecified site; M54.9 Dorsalgia, unspecified; E66.01 Morbid (severe) obesity due to excess calories; Z68.44 Body mass index [BMI] 60.0-69.9, adult; Z91.19 Patient's noncompliance with other medical treatment and regimen; I48.91 Unspecified atrial fibrillation; J44.0 Chronic obstructive pulmonary disease with (acute) lower respiratory infection; J20.9 Acute bronchitis, unspecified; I25.2 Old myocardial infarction; G89.29 Other chronic pain; E03.9 Hypothyroidism, unspecified; L30.9 Dermatitis, unspecified; F41.9 Anxiety disorder, unspecified; F32.9 Major depressive disorder, single episode, unspecified; R32 Unspecified urinary incontinence; K22.70 Barrett's esophagus without dysplasia; R60.0 Localized edema; Z99.81 Dependence on supplemental oxygen; Z86.73 Personal history of transient ischemic attack (TIA), and cerebral infarction without residual deficits; Z87.442 Personal history of urinary calculi; Z87.19 Personal history of other diseases of the digestive system; Z86.711 Personal history of pulmonary embolism; Z87.01 Personal history of pneumonia (recurrent); Z87.440 Personal history of urinary (tract) infections; Z85.42 Personal history of malignant neoplasm of other parts of uterus; Z85.41 Personal history of malignant neoplasm of cervix uteri; Z79.890 Hormone replacement therapy; Z79.01 Long term (current) use of anticoagulants; Z16.24 Resistance to multiple antibiotics; Z90.49 Acquired absence of other specified parts of digestive tract; Z90.710 Acquired absence of both cervix and uterus; Z96.653 Presence of artificial knee joint, bilateral; Z79.899 Other long term (current) drug therapy; Z88.5 Allergy status to narcotic agent; Z88.8 Allergy status to other drugs, medicaments and biological substances; Z91.041 Radiographic dye allergy status; Z82.49 Family history of ischemic heart disease and other diseases of the circulatory system; Z80.1 Family history of malignant neoplasm of trachea, bronchus and lung; Z82.3 Family history of stroke; Z80.52 Family history of malignant neoplasm of bladder; Z82.69 Family history of other diseases of the musculoskeletal system and connective tissue
CPT/HCPCS: 96376 ×2; 96375 ×3; 96374; 99285; 36415; 93005; 83880; 80053; 83735; 84484; 85025; 85610; 85730; 71045; G0378 ×2; J2920 ×2; J2405; J2270; J1170

== ENCOUNTER 2021-04-16 18:33 | Inpatient (IN) | payer MEDICARE, OTHER ==
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
[2021-04-16 19:35] LABS: ALT 14 U/L (4-34); AST 23 U/L (14-36); African American GFR (CKD) >90 (>60 ml/min/1.73 sqM); Albumin 3.3 g/dL (3.5-5.0); Alkaline Phosphatase 114 U/L (38-126); Anion Gap 7 mmol/L; Blood Urea Nitrogen 16 mg/dL (7-17); Calcium 8.9 mg/dL (8.4-10.2); Carbon Dioxide 27 mmol/L (22-30); Chloride 106 mmol/L (98-107); Glucose 132 mg/dL (74-99); Magnesium 1.7 mg/dL (1.6-2.3); Non-African American GFR(CKD) 85 (>60 ml/min/1.73 sqM); Potassium 4.1 mmol/L (3.5-5.1); Sodium 140 mmol/L (137-145); Total Bilirubin 0.4 mg/dL (0.2-1.3); Total Protein 5.8 g/dL (6.3-8.2)
--- NOTE | 2021-04-16 19:53 | XR ---
EXAMINATION TYPE: XR chest 2V DATE OF EXAM: 04/16/2021 COMPARISON: 02/08/2021 HISTORY: Difficulty breathing TECHNIQUE: 2 views FINDINGS: Exam limited by patient's size. There is no heart failure nor confluent pneumonic infiltrat e. Thoracic aorta is atheromatous. There is no evidence of pleural effusion. IMPRESSION: Limited exam. No active cardiopulmonary disease. No change.
[2021-04-16] MEDS ORDERED: oxyCODONE-APAP 10-325MG 1 EACH TAB PO ONE (20:08)
[2021-04-16 20:11] LABS: Basophils % (A) 0 %; Eosinophils # (A) 0.3 k/uL (0-0.7); Eosinophils % (A) 4 %; Lymphocytes # (A) 1.4 k/uL (1.0-4.8); Lymphocytes % (A) 20 %; MCH 26.3 pg (25.0-35.0); MCHC 32.5 g/dL (31.0-37.0); Mean Platelet Volume 7.1; Monocytes # (A) 0.3 k/uL (0-1.0); Monocytes % (A) 5 %; Neutrophils # (A) 4.9 k/uL (1.3-7.7); Neutrophils % (A) 70 %; Platelet Count 272 k/uL (150-450); RDW 15.5 % (11.5-15.5); WBC 7.1 k/uL (3.8-10.6)
[2021-04-16 20:27] LABS: INR 0.9 (<1.2); Prothrombin Time 9.8 sec (9.0-12.0)
[2021-04-16 20:33] LABS: Partial Thromboplastin Time 20.9 sec (22.0-30.0)
[2021-04-16] MEDS ORDERED: MORPHINE SULFATE 2 MG/ML SYRINGE IVP ONE (22:55)
[2021-04-16] MEDS ORDERED: MORPHINE SULFATE 2 MG/ML SYRINGE ONE (23:06)
[2021-04-16] MEDS ORDERED: oxyCODONE-APAP 10-325MG 1 EACH TAB ONE (23:53)
[2021-04-17] MEDS: ONDANSETRON 4 MG/2 ML VIAL IVP PRN ×3 (02:05→16:48)
[2021-04-17] MEDS: oxyCODONE-APAP 10-325MG 1 EACH TAB PO SCH ×4 (03:31→12:25)
[2021-04-17] MEDS: LEVOTHYROXINE 75 MCG TAB PO SCH (05:57)
[2021-04-17] MEDS: PREGABALIN 50 MG CAP PO SCH ×2 (07:22→20:12)
[2021-04-17] MEDS: PANTOPRAZOLE 40 MG TABLET PO SCH ×2 (07:22→20:12)
[2021-04-17] MEDS: APIXABAN 5 MG TAB PO SCH ×2 (07:22→20:12)
[2021-04-17] MEDS: ATORVASTATIN 40 MG TAB PO SCH (07:23)
[2021-04-17] MEDS: IPRATROPIUM 0.5 MG/2.5 ML NEBU INHALATION SCH ×2 (07:32→11:12)
[2021-04-17] MEDS ORDERED: TORSEMIDE 100 MG PO SCH (09:00)
[2021-04-17] MEDS ORDERED: TORSEMIDE 20 MG TAB PO SCH (09:45)
[2021-04-17 11:30] LABS: Appearance,Urine Cloudy (Clear); Bacteria,Urine Many /hpf; Bilirubin,Urine Negative (Negative); Blood,Urine Negative (Negative); Color,Urine Yellow; Glucose,Urine (UA) Negative (Negative); Ketones,Urine Negative (Negative); Leukocyte Esterase,Urine Small (Negative); Mucus,Urine Rare /hpf; Nitrite,Urine Positive (Negative); PH, Urine 5.5 (5.0-8.0); Protein,Urine Negative (Negative); RBC,Urine 2 /hpf (0-5); Specific Gravity,Urine 1.028 (1.001-1.035); Urobilinogen,Urine <2.0 mg/dL (<2.0); WBC,Urine 17 /hpf (0-5)
[2021-04-17] MEDS ORDERED: BUDESONIDE 1 MG/2 ML NEBU INHALATION SCH (13:33)
[2021-04-17] MEDS: TORSEMIDE 20 MG TAB PO SCH (14:07)
[2021-04-17] MEDS: DICYCLOMINE 10 MG CAP PO PRN (14:39)
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
[2021-04-17] MEDS: IPRATROPIUM-ALBUTEROL 3 ML NEB INHALATION SCH ×2 (15:28→19:54)
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
[2021-04-17] MEDS: oxyCODONE-APAP 10-325MG 1 EACH TAB PO PRN ×3 (16:48→23:27)
[2021-04-17] MEDS: FORMOTEROL FUMARATE 20 MCG/2 ML NEBU INHALATION SCH (19:58)
[2021-04-17] MEDS: traZODone HCL 50 MG TAB PO SCH (20:12)
[2021-04-18] MEDS: ONDANSETRON 4 MG/2 ML VIAL IVP PRN ×3 (00:25→21:15)
[2021-04-18] MEDS: IPRATROPIUM-ALBUTEROL 3 ML NEB INHALATION SCH ×6 (01:10→23:33)
[2021-04-18] MEDS: oxyCODONE-APAP 10-325MG 1 EACH TAB PO PRN ×5 (04:41→21:13)
[2021-04-18] MEDS: DICYCLOMINE 10 MG CAP PO PRN ×2 (04:42→12:06)
[2021-04-18] MEDS: LEVOTHYROXINE 75 MCG TAB PO SCH (05:29)
[2021-04-18] MEDS: FORMOTEROL FUMARATE 20 MCG/2 ML NEBU INHALATION SCH ×2 (07:35→19:56)
[2021-04-18] MEDS: APIXABAN 5 MG TAB PO SCH ×2 (08:13→21:12)
[2021-04-18] MEDS: PANTOPRAZOLE 40 MG TABLET PO SCH ×2 (08:14→21:13)
[2021-04-18] MEDS: PREGABALIN 50 MG CAP PO SCH ×2 (08:14→21:13)
[2021-04-18] MEDS: ATORVASTATIN 40 MG TAB PO SCH (08:14)
[2021-04-18] MEDS: TORSEMIDE 20 MG TAB PO SCH (12:09)
--- NOTE | 2021-04-18 19:29 | P.PN ---
Progress Note - Text Progress Note Date: 04/18/21 Chief Complaint: Shortness of breath History of presenting complaint This is a pleasant 71-year-old patient, follows with Dr. Vallejo out of [place]. Rather extensive medical history. Chronic stable medical conditions include atrial fibrillation, CAD with history of SD, primary osteoarthritis, hypothyroid, irritable bowel syndrome, urinary incontinence, peptic ulcer disease, hiatal hernia, chronic low back pain from herniated disc her pain medications are managed by her family doctor, Dr. Vallejo, hypothyroid generalized arthritis, peripheral neuropathy. Patient has a baseline does use a walker. Lives with her son 54 years of age. She also has home help. She has seen a pain specialist before but that did not work out. Patient presents with increasing shortness of breath loss to 3 days. No cough. Some wheezing. No fever. No lower extremity edema. Patient been having intermittent bowel spasms. She had initially ascribed to eating rice and vegetables yesterday. But she has been bothered by IBS for quite a while. She also states that family doctor is trying to get her to one of the [facility] for further workup April 18: Feels some congestion the chest. Eating some. Having bowel spasm. Bentyl is helping. Pain is relatively controlled with the current dose of oxycodone. Review of systems: Was done for constitutional, cardiovascular, GI, pulmonary. relevant finding as above Active Medications Albuterol/Ipratropium (Ipratropium-Albuterol 3 Ml Neb) 3 ml INHALATION RT-Q4H [facility] Last Admin: 04/18/21 15:54 Dose: Not Given Documented by: Apixaban (Apixaban 5 Mg Tab) 5 mg PO BID [facility]; Protocol Last Admin: 04/18/21 08:13 Dose: 5 mg Documented by: Atorvastatin Calcium (Atorvastatin 40 Mg Tab) 40 mg PO DAILY [facility] Last Admin: 04/18/21 08:14 Dose: 40 mg Documented by: Dicyclomine HCl (Dicyclomine 10 Mg Cap) 10 mg PO Q6H PRN PRN Reason: Bloating Last Admin: 04/18/21 12:06 Dose: 10 mg Documented by: Formoterol Fumarate (Formoterol Fumarate 20 Mcg/2 Ml Nebu) 20 mcg INHALATION RT-BID [facility] Last Admin: 04/18/21 07:35 Dose: 20 mcg Documented by: Ceftriaxone Sodium 1 gm/ (Sodium Chloride) 50 mls @ 100 mls/hr IVPB BID [facility] Last Admin: 04/18/21 08:14 Dose: 100 mls/hr Documented by: Levothyroxine Sodium (Levothyroxine 75 Mcg Tab) 150 mcg PO DAILY@0630 [facility] Last Admin: 04/18/21 05:29 Dose: 150 mcg Documented by: Ondansetron HCl (Ondansetron 4 Mg/2 Ml Vial) 4 mg IVP Q6HR PRN PRN Reason: Nausea And Vomiting Last Admin: 04/18/21 08:25 Dose: 4 mg Documented by: Oxycodone/Acetaminophen (Oxycodone-Apap 10-325mg 1 Each Tab) 1 each PO Q4H PRN PRN Reason: Breakthrough Pain Last Admin: 04/18/21 17:34 Dose: 1 each Documented by: Pantoprazole Sodium (Pantoprazole 40 Mg Tablet) 40 mg PO BID [facility] Last Admin: 04/18/21 08:14 Dose: 40 mg Documented by: Pregabalin (Pregabalin 50 Mg Cap) 50 mg PO BID [facility] Last Admin: 04/18/21 08:14 Dose: 50 mg Documented by: Ropinirole HCl (Ropinirole Hcl 0.25 Mg Tab) 0.25 mg PO BID [facility] Last Admin: 04/18/21 08:14 Dose: 0.25 mg Documented by: Torsemide (Torsemide 20 Mg Tab) 40 mg PO DAILY [facility] Last Admin: 04/18/21 12:09 Dose: 40 mg Documented by: Trazodone HCl (Trazodone Hcl 50 Mg Tab) 50 mg PO HS [facility] Last Admin: 04/17/21 20:12 Dose: 50 mg Documented by: Past medical history to include: Atrial fibrillation, congestive heart failure from diastolic dysfunction, myocardial infarction, osteoarthritis, pulmonary embolism, hypothyroid, irritable bowel syndrome, urinary incontinence, uterine and cervical cancer, peptic ulcer is original ulcer, Scales's esophagus, hiatal hernia, chronic low back pain from herniated disc, kidney stones, peripheral neuropathy, arthritis, uses a walker Social history: This with her 50 year 4-year-old son. Also has home help. Does use a walker. Family history: Stroke, hypertension, SD, bladder and lung cancer Physical examination: VITAL SIGNS: 98.2, 71, 19, 95/58, 97% room air GENERAL: Reclining in bed, awake EYES: Pupils equal. Conjunctiva normal. HEENT: External appearance of nose and ears normal, oral cavity grossly normal. NECK: JVD not raised; masses not palpable. HEART: First and second heart sounds are normal; minimal edema. LUNGS: Respiratory rate increased; decreased wheezing. ABDOMEN: Soft, nontender, liver spleen not palpable, no masses palpable. PSYCH: Alert and oriented x3; mood and affect anxious. MUSCULOSKELETAL: Evidence of OA in multiple joints INVESTIGATIONS, reviewed in the clinical context: April 18: Pro-calcitonin 0.08 White count 7.1 hemoglobin 11 platelets 272 potassium 4.1 creatinine 0.71 UA positive for nitrite, WBC, bacteria Coronavirus [PCR] not detected EKG tracing personally reviewed by me-normal sinus rhythm, rate 89 Chest x-ray film personally reviewed by me-underpenetrated. Questionable infiltrate. Assessment and plan: -Acute COPD exacerbation in a nonsmoker with a component of pickwickian syndrome: Slow to respond DuoNeb every 4, inhaled steroids -Possible pneumonia, suspect gram-negative organism IV ceftriaxone 1 g every 12 -Possible acute UTI with cystitis IV ceftriaxone -Acute flareup of irritable bowel syndrome Bentyl 10 mg every 6 when necessary -Paroxysmal atrial fibrillation, currently in sinus rhythm Telemetry. On eliquis 5 mg twice a day -Hypothyroid Synthroid 150 g a day -Peripheral neuropathy Lytic 50 mg twice a day -Restless leg syndrome requip 0.25 mg twice a day -Chronic congestive heart failure from diastolic dysfunction EF 55-60%. No acute exacerbation Demadex 40 mg daily. Fluid restriction 1600 mL a day -Chronic gait dysfunction, uses a walker to baseline -Chronic insomnia from multiple medical problems Trazodone 50 mg daily at bedtime -GERD, peptic ulcer disease Protonix 40 mg twice a day -Chronic low back pain from herniated disc and osteoarthritis oxycodone 10 every 4 when necessary. Care was discussed with the patient. Continue current medication treatment plan.
[2021-04-18] MEDS: traZODone HCL 50 MG TAB PO SCH (21:13)
[2021-04-18] MEDS: DICYCLOMINE 10 MG CAP PO SCH (21:13)
[2021-04-19] MEDS: IPRATROPIUM-ALBUTEROL 3 ML NEB INHALATION SCH ×4 (01:17→11:16)
[2021-04-19] MEDS: oxyCODONE-APAP 10-325MG 1 EACH TAB PO PRN ×4 (02:11→13:58)
[2021-04-19] MEDS: DICYCLOMINE 10 MG CAP PO SCH ×3 (02:12→13:33)
[2021-04-19 05:13] LABS: Basophils % (A) 1 %; Eosinophils # (A) 0.3 k/uL (0-0.7); Eosinophils % (A) 5 %; HCT 33.1 % (34.0-46.0); HGB 10.8 gm/dL (11.4-16.0); Lymphocytes # (A) 1.2 k/uL (1.0-4.8); Lymphocytes % (A) 19 %; MCH 26.7 pg (25.0-35.0); MCHC 32.7 g/dL (31.0-37.0); MCV 81.7 fL (80.0-100.0); Monocytes # (A) 0.4 k/uL (0-1.0); Monocytes % (A) 6 %; Neutrophils # (A) 4.3 k/uL (1.3-7.7); Neutrophils % (A) 68 %; Platelet Count 231 k/uL (150-450); RBC 4.05 m/uL (3.80-5.40); RDW 15.4 % (11.5-15.5); WBC 6.4 k/uL (3.8-10.6)
[2021-04-19 05:31] LABS: African American GFR (CKD) 62 (>60 ml/min/1.73 sqM); Anion Gap 6 mmol/L; Blood Urea Nitrogen 25 mg/dL (7-17); Calcium 8.2 mg/dL (8.4-10.2); Carbon Dioxide 34 mmol/L (22-30); Chloride 94 mmol/L (98-107); Glucose 114 mg/dL (74-99); Non-African American GFR(CKD) 54 (>60 ml/min/1.73 sqM); Potassium 3.7 mmol/L (3.5-5.1); Sodium 134 mmol/L (137-145)
[2021-04-19] MEDS: LEVOTHYROXINE 75 MCG TAB PO SCH (05:45)
[2021-04-19] MEDS: FORMOTEROL FUMARATE 20 MCG/2 ML NEBU INHALATION SCH (07:57)
[2021-04-19] MEDS: PANTOPRAZOLE 40 MG TABLET PO SCH (08:25)
[2021-04-19] MEDS: APIXABAN 5 MG TAB PO SCH (08:26)
[2021-04-19] MEDS: ATORVASTATIN 40 MG TAB PO SCH (08:26)
[2021-04-19] MEDS: PREGABALIN 50 MG CAP PO SCH (08:26)
[2021-04-19] MEDS: TORSEMIDE 20 MG TAB PO SCH (08:27)
--- NOTE | 2021-04-19 11:49 | P.PN ---
Subjective Progress Note Date: 04/19/21 Principal diagnosis: Shortness of breath UTI Acute on chronic diastolic heart failure, Third spacing increased swelling possible exacerbation of CHF acute on chronic diastolic heart failure Generalized weakness medical debility COPD not in exacerbation Severe morbid obesity Sleep disorder breathing and sleep apnea noncompliant with CPAP machine 04/19/2021, patient seen eval examined during the rounds labs reviewed medications reviewed, Estrace status remained stable patient had a breathing treatment and after that noted that FiO2 increased to 5 L, patient uses oxygen at 3 L, taper down to 3 L discussed with RN, patient remains on antibiotics breathing treatment tolerating very well, complaining of anasarca and fluid overload has been tolerating torsemide well, labs from today reviewed BUN/creatinine is 25 1.04, white cell count 6400 Miss Renée Krishnan is a 71-year-old female with the prior medical history of chronic congestive heart failure chronic diastolic heart failure as well as COPD, patient has a history of sleep disorder breathing and sleep apnea, non compliant with CPAP machine, morbidly obese predominantly bedbound, patient came into the hospital with 3 days history of increasing shortness of breath however she denies any chest pain or radiation of breath. Patient denies any fevers chills denies any nausea vomiting diarrhea, patient has been having constant back pain and backache for which she is still requiring Percocet, she feels that there is increased swelling of the lower extremity has well cannot move, labs are significant for mild anemia chest x-ray is unremarkable and negative for effusion or infiltrate, BNP is 135, urine is suggestive of possible inflammatory changes with presence of bacteria and nitrites, Objective - Vital Signs Vital signs: Vital Signs Temp 97.8 F 04/19/21 07:00 Pulse 81 04/19/21 11:30 Resp 16 04/19/21 11:30 BP 107/61 04/19/21 07:00 Pulse Ox 98 04/19/21 07:57 Intake & Output 04/18/21 04/19/21 04/19/21 18:59 06:59 18:59 Intake Total 120 Output Total 1200 2400 500 Balance -1200 -2400 -380 Intake: Oral 120 Output: Urine 1200 2400 500 Other: Voiding Method External Catheter External Catheter # Voids 1 - Exam - Constitutional General appearance: morbidly obese - EENT Eyes: EOMI, PERRLA Ears: bilateral: normal - Neck Neck: normal ROM Carotids: bilateral: upstroke normal Thyroid: bilateral: normal size - Respiratory Respiratory: bilateral: diminished - Cardiovascular Rhythm: regular Heart sounds: normal: S1, S2 - Integumentary Integumentary: normal turgor - Neurologic Neurologic: CNII-XII intact - Musculoskeletal Musculoskeletal: generalized weakness, strength equal bilaterally - Psychiatric Psychiatric: A&O x's 3, appropriate affect - Labs CBC & Chem 7: 04/19/21 05:00 04/19/21 05:00 Labs: Abnormal Lab Results - Last 24 Hours (Table) 04/19/21 04/19/21 Range/Units 05:00 05:00 Hgb 10.8 L (11.4-16.0) gm/dL Hct 33.1 L (34.0-46.0) % Sodium 134 L (137-145) mmol/L Chloride 94 L (98-107) mmol/L Carbon Dioxide 34 H (22-30) mmol/L BUN 25 H (7-17) mg/dL Glucose 114 H (74-99) mg/dL Calcium 8.2 L (8.4-10.2) mg/dL Assessment and Plan Assessment: Shortness of breath UTI Acute on chronic diastolic heart failure, Third spacing increased swelling possible exacerbation of CHF acute on chronic diastolic heart failure Generalized weakness medical debility COPD not in exacerbation Severe morbid obesity Sleep disorder breathing and sleep apnea noncompliant with CPAP machine Plan: Continue bronchodilators as needed Gentle diuresis Recommend antibiotics for UTI like Rocephin gram daily Hold on the steroids For pain management as per primary service Titrated oxygen down to baseline 3 L tolerated keep saturation over 92% and above Further plan of care as per clinical response of the patient
[2021-04-19 13:08] VITALS: BP 108/66; PULSE 76; RESP 18; TEMP 98.2
--- NOTE | 2021-04-19 13:25 | CDI ---
Documentation Clarification Form Date: 04/19/2021 12:53:10 PM From: Neelam Wall RN CCDS Admit Date: 04/19/2021 08:36:00 AM Patient Name: Renée Krishnan Visit Number: [id number] Discharge Date: ATTENTION: The Clinical Documentation Specialists (CDI) and [facility] Coding Staff appreciate your assistance in clarifying documentation. Please respond to the clarification below the line at the bottom and electronically sign. The CDI & [facility] Coding staff will review the response and follow-up if needed. Please note: Queries are made part of the Legal Health Record. If you have any questions, please contact the author of this message via ITS. Dr. Wilmer Sullivan Conflicting documentation has been found in the medical record. As attending physician, please provide clarification. Chronic congestive heart failure from diastolic dysfunction EF 55-60%. H&P, 04/17. Acute on chronic diastolic heart failure. Pulmonary Consult, 04/17. History/Risk Factors: 71-year-old female presents to the ED shortness of breath for three days. Medical History: CHF, Atrial Fibrillation, CAD and CA. Clinical Indicators: VSS: 04/16 B/P 155/63, HR 89, RR 16, Temp 98.1, SpO2 100% 3L nasal cannula BNP: 04/16 135 CXR: 04/16 No active cardiopulmonary disease. Third spacing increased swelling possible exacerbation of CHF acute on chronic diastolic heart failure. Pulmonary Consult 04/17 Treatment: 04/17 Demadex 100mg PO x 1, 04/17 to current Demadex 40mg PO Daily Please clarify which diagnosis is most appropriate: [ ] Chronic Diastolic CHF [ ] Acute on Chronic Diastolic CHF [ ] Other (please specify) [ ] Unable to determine (Template Last Revised: October 2020) see discharge summary. No need for change in documentation MTDD
--- NOTE | 2021-04-19 18:13 | P.DS ---
Providers Date of admission: 04/19/21 08:36 Expected date of discharge: 04/19/21 Attending physician: Wilmer Sullivan Consults: 04/17/21 10:58 Consult Physician Routine Consulting Provider: Peter Howard Consult Reason/Comments: copd Do you want consulting provider notified?: Yes Primary care physician: Mukul Vallejo MD Hospital Course: Chief Complaint: Shortness of breath History of presenting complaint This is a pleasant 71-year-old patient, follows with Dr. Vallejo out of [place]. Rather extensive medical history. Chronic stable medical conditions include atrial fibrillation, CAD with history of MD, primary osteoarthritis, hypothyroid, irritable bowel syndrome, urinary incontinence, peptic ulcer disease, hiatal hernia, chronic low back pain from herniated disc her pain medications are managed by her family doctor, Dr. Vallejo, hypothyroid generalized arthritis, peripheral neuropathy. Patient has a baseline does use a walker. Lives with her son 54 years of age. She also has home help. She has seen a pain specialist before but that did not work out. Patient presents with increasing shortness of breath loss to 3 days. No cough. Some wheezing. No fever. No lower extremity edema. Patient been having intermittent bowel spasms. She had initially ascribed to eating rice and vegetables yesterday. But she has been bothered by IBS for quite a while. She also states that family doctor is trying to get her to one of the [facility] for further workup Admitted with COPD exacerbation, possible pneumonia, acute UTI, acute flareup of irritable bowel syndrome. Treated with bronchodilators, IV ceftriaxone, Bentyl added April 18: Feels some congestion the chest. Eating some. Having bowel spasm. Bentyl is helping. Pain is relatively controlled with the current dose of oxycodone. April 19: Breathing much better. Oxygen level down to baseline 3 L. Care was discussed with Dr. Howard from pulmonary. Stable for discharge. Also discussed with the patient. Patient will be discharged, nebulizers. Some restriction discussed. Will follow with the PCP. Discussed with nurse. Discussion and discharge planning more than 35 minutes Consultation: Dr. Héctor Howard from pulmonary Past medical history to include: Atrial fibrillation, congestive heart failure from diastolic dysfunction, myocardial infarction, osteoarthritis, pulmonary embolism, hypothyroid, irritable bowel syndrome, urinary incontinence, uterine and cervical cancer, peptic ulcer is original ulcer, Scales's esophagus, hiatal hernia, chronic low back pain from herniated disc, kidney stones, peripheral neuropathy, arthritis, uses a walker Social history: This with her 50 year 4-year-old son. Also has home help. Does use a walker. Family history: Stroke, hypertension, MD, bladder and lung cancer Physical examination: VITAL SIGNS: 98.2, 76, 18, 108/66, 98% on 3 L GENERAL: Reclining in bed, awake, comfortable EYES: Pupils equal. Conjunctiva normal. HEENT: External appearance of nose and ears normal, oral cavity grossly normal. NECK: JVD not raised; masses not palpable. HEART: First and second heart sounds are normal; minimal edema. LUNGS: Respiratory rate increased; improved her entry ABDOMEN: Soft, nontender, liver spleen not palpable, no masses palpable. PSYCH: Alert and oriented x3; mood and affect anxious. MUSCULOSKELETAL: Evidence of OA in multiple joints INVESTIGATIONS, reviewed in the clinical context: April 19: White count 6.4 potassium 3.7 creatinine 1.04 April 18: Pro-calcitonin 0.08 White count 7.1 hemoglobin 11 platelets 272 potassium 4.1 creatinine 0.71 UA positive for nitrite, WBC, bacteria Coronavirus [PCR] not detected EKG tracing personally reviewed by me-normal sinus rhythm, rate 89 Chest x-ray film personally reviewed by me-underpenetrated. Questionable infiltrate. Assessment and plan: -Acute COPD exacerbation in a nonsmoker with a component of pickwickian synd tawana: DuoNeb tid, -Possible pneumonia, suspect gram-negative organism IV ceftriaxone . Ceftin twice a day for 3 days -Possible acute UTI with cystitis IV ceftriaxone. Complete course of Ceftin -Acute flareup of irritable bowel syndrome Bentyl 10 mg every 6 when necessary -Paroxysmal atrial fibrillation, currently in sinus rhythm Telemetry. On eliquis 5 mg twice a day -Hypothyroid Synthroid 150 g a day -Peripheral neuropathy Lytic 50 mg twice a day -Restless leg syndrome requip 0.25 mg twice a day -Chronic congestive heart failure from diastolic dysfunction EF 55-60%. No acute exacerbation Demadex 40 mg daily. Fluid restriction 2000 mL a day -Chronic gait dysfunction, uses a walker to baseline -Chronic insomnia from multiple medical problems Trazodone 50 mg daily at bedtime -GERD, peptic ulcer disease Protonix 40 mg twice a day -Chronic low back pain from herniated disc and osteoarthritis oxycodone 10 every 4 when necessary. Disposition: Home Plan - Discharge Summary Discharge Rx Participant: No New Discharge Prescriptions: New Cefuroxime Axetil [Ceftin] 500 mg PO BID 1 Days #6 tab Ipratropium-Albuterol Nebulize [Duoneb 0.5 mg-3 mg/3 ml Soln] 3 ml INHALATION TID #90 ml Dicyclomine [Bentyl] 10 mg PO Q6H PRN #30 cap PRN Reason: Spasms Torsemide [Demadex] 40 mg PO DAILY #60 tab Continue Levothyroxine Sodium [Synthroid] 150 mcg PO DAILY Pregabalin 50 mg PO BID Atorvastatin [Lipitor] 40 mg PO DAILY Apixaban [Eliquis] 5 mg PO BID #60 tab traZODone HCL 50 mg PO HS rOPINIRole HCL [Requip] 0.25 mg PO BID Omeprazole 20 mg PO BID oxyCODONE HCL/ACETAMINOPHEN [Percocet 10-325 mg] 1 tab PO Q4H Ondansetron Odt [Zofran ODT] 8 mg PO Q8HR PRN PRN Reason: Nausea And Vomiting Discontinued Tiotropium 2.5 Mcg/Puff [Spiriva Respimat 2.5 Mcg] 2 puff INHALATION RT-DAILY Torsemide [Demadex] 100 mg PO DAILY Discharge Medication List Levothyroxine Sodium [Synthroid] 150 mcg PO DAILY 06/18/18 [History] Pregabalin 50 mg PO BID 02/11/20 [History] Atorvastatin [Lipitor] 40 mg PO DAILY 09/24/20 [History] Apixaban [Eliquis] 5 mg PO BID #60 tab 09/28/20 [Rx] traZODone HCL 50 mg PO HS 01/11/21 [History] rOPINIRole HCL [Requip] 0.25 mg PO BID 02/08/21 [History] Omeprazole 20 mg PO BID 04/16/21 [History] Ondansetron Odt [Zofran ODT] 8 mg PO Q8HR PRN 04/16/21 [History] oxyCODONE HCL/ACETAMINOPHEN [Percocet 10-325 mg] 1 tab PO Q4H 04/16/21 [History] Cefuroxime Axetil [Ceftin] 500 mg PO BID 1 Days #6 tab 04/19/21 [Rx] Dicyclomine [Bentyl] 10 mg PO Q6H PRN #30 cap 04/19/21 [Rx] Ipratropium-Albuterol Nebulize [Duoneb 0.5 mg-3 mg/3 ml Soln] 3 ml INHALATION TID #90 ml 04/19/21 [Rx] Torsemide [Demadex] 40 mg PO DAILY #60 tab 04/19/21 [Rx] Follow up Appointment(s)/Referral(s): Mukul Vallejo MD [Primary Care Provider] - 1-2 days Peter Howard MD [STAFF PHYSICIAN] - 1 Week Patient Instructions/Handouts: Dyspnea (DC) Activity/Diet/Wound Care/Special Instructions: fluid restrict 2000 cc/day Discharge Disposition: HOME SELF-CARE
== END 2021-04-19 16:14 | disposition home or self-care (01) | DRG 190 ==
LOC: EC 18:33 → 6NMEDSUR 21:02 → OBSVTOIN 04-19 08:36
PROVIDERS: ADMIT Hospitalist; ATTEND Hospitalist
DX: J44.1 Chronic obstructive pulmonary disease with (acute) exacerbation (principal); J15.6 Pneumonia due to other Gram-negative bacteria; E66.2 Morbid (severe) obesity with alveolar hypoventilation; I50.32 Chronic diastolic (congestive) heart failure; N39.0 Urinary tract infection, site not specified; Z68.44 Body mass index [BMI] 60.0-69.9, adult; Z20.822 Contact with and (suspected) exposure to COVID-19; E03.9 Hypothyroidism, unspecified; F32.9 Major depressive disorder, single episode, unspecified; K58.9 Irritable bowel syndrome, unspecified; F41.9 Anxiety disorder, unspecified; F51.04 Psychophysiologic insomnia; K22.70 Barrett's esophagus without dysplasia; G25.81 Restless legs syndrome; G62.9 Polyneuropathy, unspecified; G89.29 Other chronic pain; I25.10 Atherosclerotic heart disease of native coronary artery without angina pectoris; I25.2 Old myocardial infarction; I48.0 Paroxysmal atrial fibrillation; R26.9 Unspecified abnormalities of gait and mobility; M51.24 Other intervertebral disc displacement, thoracic region; R53.81 Other malaise; K21.9 Gastro-esophageal reflux disease without esophagitis; M13.0 Polyarthritis, unspecified; Z79.01 Long term (current) use of anticoagulants; Z79.890 Hormone replacement therapy; Z79.899 Other long term (current) drug therapy; Z85.41 Personal history of malignant neoplasm of cervix uteri; Z86.73 Personal history of transient ischemic attack (TIA), and cerebral infarction without residual deficits; Z86.711 Personal history of pulmonary embolism; Z87.19 Personal history of other diseases of the digestive system; Z87.442 Personal history of urinary calculi; Z87.11 Personal history of peptic ulcer disease; Z90.710 Acquired absence of both cervix and uterus; Z91.19 Patient's noncompliance with other medical treatment and regimen; Z96.653 Presence of artificial knee joint, bilateral; Z91.041 Radiographic dye allergy status; Z88.6 Allergy status to analgesic agent; Z88.8 Allergy status to other drugs, medicaments and biological substances
CPT/HCPCS: 36415; 71046; 80048; 80053; 81001; 83605; 83735; 83880; 84145; 84484; 85025; 85610; 85730; 87635; 93005; 94640; 94760; 99285

== ENCOUNTER 2021-04-29 17:10 | Inpatient (IN) | payer MEDICARE, OTHER ==
[2021-04-29] MEDS ORDERED: oxyCODONE-APAP 10-325MG 1 EACH TAB PO STA ×2 (18:04→22:04)
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
[2021-04-29 18:51] LABS: Basophils % (A) 1 %; Eosinophils # (A) 0.2 k/uL (0-0.7); Eosinophils % (A) 2 %; HCT 31.5 % (34.0-46.0); HGB 10.5 gm/dL (11.4-16.0); Lymphocytes # (A) 1.2 k/uL (1.0-4.8); Lymphocytes % (A) 16 %; MCH 26.4 pg (25.0-35.0); MCHC 33.3 g/dL (31.0-37.0); MCV 79.2 fL (80.0-100.0); Mean Platelet Volume 6.9; Monocytes # (A) 0.3 k/uL (0-1.0); Monocytes % (A) 3 %; Neutrophils # (A) 5.7 k/uL (1.3-7.7); Neutrophils % (A) 76 %; Platelet Count 323 k/uL (150-450); RBC 3.98 m/uL (3.80-5.40); RDW 15.6 % (11.5-15.5); WBC 7.5 k/uL (3.8-10.6)
[2021-04-29 18:59] LABS: Partial Thromboplastin Time 22.8 sec (22.0-30.0); Prothrombin Time 10.3 sec (9.0-12.0)
[2021-04-29 19:03] LABS: ALT 14 U/L (4-34); AST 23 U/L (14-36); African American GFR (CKD) >90 (>60 ml/min/1.73 sqM); Albumin 3.5 g/dL (3.5-5.0); Alkaline Phosphatase 119 U/L (38-126); Anion Gap 7 mmol/L; Blood Urea Nitrogen 8 mg/dL (7-17); Calcium 8.9 mg/dL (8.4-10.2); Carbon Dioxide 25 mmol/L (22-30); Chloride 105 mmol/L (98-107); Glucose 112 mg/dL (74-99); Magnesium 1.8 mg/dL (1.6-2.3); Non-African American GFR(CKD) 86 (>60 ml/min/1.73 sqM); Potassium 4.2 mmol/L (3.5-5.1); Sodium 137 mmol/L (137-145); Total Bilirubin 0.6 mg/dL (0.2-1.3)
--- NOTE | 2021-04-29 19:03 | XR ---
EXAMINATION TYPE: XR chest 1V portable DATE OF EXAM: 04/29/2021 COMPARISON: 04/16/2021 HISTORY: Short of breath TECHNIQUE: Single view FINDINGS: Exam limited by patient's size. There is no heart failure nor confluent pneumonic infiltrat e. There is no evidence of pleural effusion. Heart is probably enlarged. There are no hilar masses. T here are chest leads. There is possible infiltrate in the left lower lobe. IMPRESSION: Limited exam. There is a possible new infiltrate left lower lobe compared to old exam. No heart failu re seen.
[2021-04-29] MEDS ORDERED: ALBUTEROL NEBULIZED 2.5 MG/3 ML INHALATION STA (19:26)
[2021-04-29] MEDS ORDERED: IPRATROPIUM-ALBUTEROL 3 ML NEB INHALATION STA (19:26)
[2021-04-29] MEDS ORDERED: methylPREDNISolone SOD SUCCI 125 MG/2 ML VIAL IV STA (19:27)
[2021-04-29] MEDS ORDERED: AZITHROMYCIN 500 MG in SODIUM CHLORIDE 0.9% 250 ML IVPB STA (19:28)
[2021-04-29] MEDS ORDERED: cefTRIAXone IN SWFI 1,000 MG/10 ML SYRINGE IVP STA (19:28)
[2021-04-29] MEDS ORDERED: ONDANSETRON 4 MG/2 ML VIAL IVP STA (19:34)
[2021-04-29] MEDS ORDERED: IPRATROPIUM-ALBUTEROL 3 ML NEB INHALATION PRN (19:36)
[2021-04-29] MEDS ORDERED: MORPHINE SULFATE 4 MG/ML SYRINGE IVP STA (19:43)
[2021-04-29] MEDS: IPRATROPIUM-ALBUTEROL 3 ML NEB INHALATION SCH (21:20)
[2021-04-30] MEDS: methylPREDNISolone SOD SUCCI 125 MG/2 ML VIAL IV SCH ×3 (00:18→12:16)
[2021-04-30] MEDS: MORPHINE SULFATE 2 MG/ML SYRINGE IVP SCH ×2 (00:19→04:34)
[2021-04-30] MEDS ORDERED: oxyCODONE-APAP 10-325MG 1 EACH TAB PO PRN (07:39)
[2021-04-30] MEDS: IPRATROPIUM-ALBUTEROL 3 ML NEB INHALATION SCH ×4 (08:29→20:07)
[2021-04-30] MEDS ORDERED: ONDANSETRON ODT 8 MG TAB.RAPDIS PO PRN (10:01)
[2021-04-30] MEDS ORDERED: DICYCLOMINE 10 MG CAP PO PRN (10:01)
[2021-04-30] MEDS ORDERED: oxyCODONE-APAP 10-325MG 1 EACH TAB PO SCH (10:15)
[2021-04-30] MEDS: TORSEMIDE 20 MG TAB PO SCH (10:56)
[2021-04-30] MEDS: ATORVASTATIN 40 MG TAB PO SCH (10:56)
[2021-04-30] MEDS: LEVOTHYROXINE 75 MCG TAB PO SCH (10:56)
[2021-04-30] MEDS: PANTOPRAZOLE 40 MG TABLET PO SCH (10:56)
[2021-04-30] MEDS: PREGABALIN 50 MG CAP PO SCH (10:56)
[2021-04-30] MEDS: APIXABAN 5 MG TAB PO SCH ×2 (10:56→21:25)
[2021-04-30] MEDS: oxyCODONE-APAP 10-325MG 1 EACH TAB PO SCH ×3 (12:16→20:29)
[2021-04-30] MEDS: NYSTATIN 100,000 UNIT/GM POWD 15 GM TOPICAL SCH ×2 (16:48→21:25)
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
[2021-04-30] MEDS: FORMOTEROL FUMARATE 20 MCG/2 ML NEBU INHALATION SCH (20:07)
[2021-04-30] MEDS: methylPREDNISolone SOD SUCCI 40 MG/ML 1 ML VIAL IV SCH (20:07)
[2021-04-30] MEDS: traZODone HCL 50 MG TAB PO SCH (21:25)
[2021-04-30] MEDS: DOXYCYCLINE 100 MG CAP PO SCH (21:25)
[2021-04-30] MEDS: FUROSEMIDE 100 MG in SODIUM CHLORIDE 0.9% 90 ML IV SCH (21:42)
[2021-05-01] MEDS: oxyCODONE-APAP 10-325MG 1 EACH TAB PO SCH ×6 (00:13→21:18)
[2021-05-01] MEDS: PREGABALIN 50 MG CAP PO SCH ×3 (00:14→21:20)
[2021-05-01] MEDS: methylPREDNISolone SOD SUCCI 40 MG/ML 1 ML VIAL IV SCH (04:14)
[2021-05-01] MEDS: LEVOTHYROXINE 75 MCG TAB PO SCH (05:53)
[2021-05-01 06:50] LABS: ALT 18 U/L (4-34); AST 22 U/L (14-36); African American GFR (CKD) 62 (>60 ml/min/1.73 sqM); Albumin 3.7 g/dL (3.5-5.0); Albumin/Globulin Ratio 1.4; Alkaline Phosphatase 103 U/L (38-126); Anion Gap 11 mmol/L; Blood Urea Nitrogen 23 mg/dL (7-17); Calcium 9.2 mg/dL (8.4-10.2); Carbon Dioxide 25 mmol/L (22-30); Chloride 101 mmol/L (98-107); Globulin 2.7 g/dL; Glucose 154 mg/dL (74-99); Magnesium 1.9 mg/dL (1.6-2.3); Non-African American GFR(CKD) 54 (>60 ml/min/1.73 sqM); Phosphorus 3.9 mg/dL (2.5-4.5); Potassium 4.6 mmol/L (3.5-5.1); Sodium 137 mmol/L (137-145); Total Bilirubin 0.4 mg/dL (0.2-1.3); Total Protein 6.4 g/dL (6.3-8.2)
[2021-05-01] MEDS: APIXABAN 5 MG TAB PO SCH ×2 (07:22→21:16)
[2021-05-01] MEDS: PANTOPRAZOLE 40 MG TABLET PO SCH (07:22)
[2021-05-01] MEDS: ATORVASTATIN 40 MG TAB PO SCH (07:22)
[2021-05-01] MEDS: DOXYCYCLINE 100 MG CAP PO SCH ×2 (07:24→21:20)
[2021-05-01] MEDS: TORSEMIDE 20 MG TAB PO SCH (07:24)
[2021-05-01] MEDS: NYSTATIN 100,000 UNIT/GM POWD 15 GM TOPICAL SCH ×2 (07:26→21:20)
[2021-05-01] MEDS: FORMOTEROL FUMARATE 20 MCG/2 ML NEBU INHALATION SCH ×2 (07:48→19:18)
[2021-05-01] MEDS: IPRATROPIUM-ALBUTEROL 3 ML NEB INHALATION SCH ×4 (07:48→19:18)
[2021-05-01] MEDS ORDERED: ALPRAZolam 0.5 MG TAB PO STA (08:53)
[2021-05-01 09:37] LABS: Basophils # (A) 0.01 X 10*3/uL (0.00-0.10); Basophils % (A) 0.1 %; Eosinophils # (A) 0 X 10*3/uL (0.04-0.35); Eosinophils % (A) 0 %; HCT 34.1 % (37.2-46.3); HGB 10.7 g/dL (12.0-15.0); Lymphocytes # (A) 0.62 X 10*3/uL (0.90-5.00); MCH 25.4 pg (27.0-32.0); MCHC 31.4 g/dL (32.0-37.0); MCV 80.8 fL (80.0-97.0); Mean Platelet Volume 9.9 fL (9.5-12.2); Monocytes # (A) 0.36 X 10*3/uL (0.20-1.00); Monocytes % (A) 4.6 %; Neutrophils # (A) 6.71 X 10*3/uL (1.80-7.70); Neutrophils % (A) 86.7 %; Platelet Count 348 X 10*3/uL (140-440); RBC 4.22 X 10*6/uL (4.10-5.20); RDW 15.9 % (11.5-14.5); WBC 7.75 X 10*3/uL (4.50-10.00)
[2021-05-01] MEDS: FUROSEMIDE 100 MG in SODIUM CHLORIDE 0.9% 90 ML IV SCH (10:02)
--- NOTE | 2021-05-01 10:02 | P.PN ---
Subjective Progress Note Date: 05/01/21 Principal diagnosis: Left lower lobe pneumonia Acute COPD exacerbation Anasarca and third spacing likely related to cor pulmonale, causing subjective shortness of breath ongoing Morbid obesity Dyslipidemia Chronic diastolic heart failure Hypothyroidism Sleep disorders and sleep apnea noncompliant with the CPAP machine 05/01/2021, patient seen and evaluated examined during the rounds labs reviewed medications reviewed care plan discussed, Lasix strip was interrupted and not continued overnight due to lack of IV axis, patient does have a midline now x- rays and rib is being resumed, she remains short of breath however cuff slightly better, labs reviewed hemoglobin and hematocrit remained stable, BUN/creatinine is 23 1.04, patient is on IV steroids were tapered down to 40 once a day Patient is a 71-year-old morbidly obese female she is hospitalized for urinary t ract infection few days ago now she presented again with shortness of breath acute onset it started yesterday while she was sleeping, patient on arrival found to be hypoxic currently she is on 35 L oxygen 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 of anasarca and swelling of the extremities, +3 is present, review her data revealed left lower lobe infiltrate along with interstitial edema, and labs are significant for BUN/creatinine of the 7 and 0.7, glucose 112, white cell count 7500 hemoglobin and hematocrit 1031, troponin less than 0.12, pro calcitonin 0.04, COVID-19 is negative, Objective - Vital Signs Vital signs: Vital Signs Temp 98.6 F 05/01/21 08:00 Pulse 69 05/01/21 08:00 Resp 18 05/01/21 08:00 BP 150/81 05/01/21 08:00 Pulse Ox 96 05/01/21 08:00 Intake & Output 04/30/21 05/01/21 05/01/21 18:59 06:59 18:59 Output Total 700 Balance -700 Weight 148 kg Output: Urine 700 Other: Voiding Method Indwelling Catheter Indwelling Catheter - Exam - Constitutional General appearance: disheveled, morbidly obese - EENT Eyes: PERRLA Ears: bilateral: normal - Neck Neck: normal ROM Carotids: bilateral: upstroke normal Thyroid: bilateral: normal size - Respiratory Respiratory: bilateral: diminished (Predominantly at the bases) - Cardiovascular Rhythm: regular Heart sounds: normal: S1, S2 - Gastrointestinal General gastrointestinal: decreased bowel sounds, distended - Integumentary Integumentary: decreased turgor - Neurologic Neurologic: CNII-XII intact - Musculoskeletal Musculoskeletal: generalized weakness, strength equal bilaterally - Psychiatric Psychiatric: A&O x's 3, appropriate affect, intact judgment & insight - Labs CBC & Chem 7: 05/01/21 05:31 09 05:31 Labs: Abnormal Lab Results - Last 24 Hours (Table) 05/01/21 05/01/21 Range/Units 05:31 05:31 Hgb 10.7 L (12.0-15.0) g/dL Hct 34.1 L (37.2-46.3) % MCH 25.4 L (27.0-32.0) pg MCHC 31.4 L (32.0-37.0) g/dL RDW 15.9 H (11.5-14.5) % Immature Gran # 0.05 H (0.00-0.04) X 10*3/uL Lymphocytes # 0.62 L (0.90-5.00) X 10*3/uL Eosinophils # 0 L (0.04-0.35) X 10*3/uL BUN 23 H (7-17) mg/dL Glucose 154 H (74-99) mg/dL Assessment and Plan Assessment: Left lower lobe pneumonia Acute COPD exacerbation Anasarca and third spacing likely related to cor pulmonale, causing subjective shortness of breath ongoing Morbid obesity Dyslipidemia Chronic diastolic heart failure Hypothyroidism Sleep disorders and sleep apnea noncompliant with the CPAP machine Plan: Agree with oral antibiotics like doxycycline Bronchodilators IV steroids however however for now we'll decrease to once daily Diuresis will put patient on Lasix drip Continue direct anticoagulants as taking before Further plan of care as per clinical response of the patient Time with Patient: Greater than 30
--- NOTE | 2021-05-01 13:03 | CDI ---
Documentation Clarification Form Date: 05/01/2021 12:49:50 PM From: Suzanne Sun CCS, CCDS Admit Date: 04/29/2021 07:36:00 PM Patient Name: Renée Krishnan Visit Number: [id number] Discharge Date: ATTENTION: The Clinical Documentation Specialists (CDI) and [facility] Coding Staff appreciate your assistance in clarifying documentation. Please respond to the clarification below the line at the bottom and electronically sign. The CDI & [facility] Coding staff will review the response and follow-up if needed. Please note: Queries are made part of the Legal Health Record. If you have any questions, please contact the author of this message via ITS. Dr. Peter Howard: Patient presented with wheezes, decreased breath sounds and increased respiratory rate per the 04/29 ED Note, the 04/30 H/P & the 04/30 Pulmonary Consult. Based on this information and the findings below, is there an additional diagnosis that is clinically appropriate for this patient? History/Risk Factors per the 04/30 H/P: COPD, IBS, Paroxysmal Atrial Fibrillation on Eliquis, Hypothyroid, Peripheral neuropathy, Restless Leg Syndrome, Chronic Diastolic CHF w/EF 55-60%, Chronic gait dysfunction, uses a walker; Chronic lower extremity w/non pitting edema, Chronic insomnia from multiple medical problems, GERD, Peptic ulcer disease, Chronic low back pain from herniated disc & osteoarthritis, CVA, GI bleed, NC, PE, Morbid Obesity, Anxiety, Depression, Non smoker. Home oxygen: 3.5L baseline Clinical Indicators: Presented to the ED on 04/29 with SOB via EMS. Currently wears 4L O2. ED Clinical Impression: COPD with acute bronchitis, COPD Exacerbation and Pneumonia 04/29 VS: T 97.8, P 79, R 24 (SOB), BP 147/84, PO 92 RA - 97 4Lnc, BMI: 59.7. 04/29 LAB: Hgb 10.5, Glucose 112, Total Protein 6.0 04/29 COVID negative 04/29 CXR: Possible new infiltrate left lower lobe, no heart failure seen. 04/29 EKG: R 71 sinus rhythm w/1st degree AV block. Treatment 04/29: O2 2Lnc - 4Lnc, INH Ventolin, INH Duoneb, IV Solumedrol, IV Azithromycin, IV Rocephin, IV Zofran, IV Morphine, po Percocet. Is there an additional diagnosis that is clinically appropriate for this patient? Acute on Chronic Hypoxic Respiratory Failure (Template Last Revised: October 2020) MTDD
--- NOTE | 2021-05-01 21:06 | P.PN ---
Progress Note - Text Progress Note Date: 05/01/21 Chief Complaint: Shortness of breath History of presenting complaint This is a pleasant 71-year-old patient, follows with Dr. Vallejo out of [place]. Rather extensive medical history. Chronic stable medical conditions include atrial fibrillation, CAD with history of NC, primary osteoarthritis, hypothyroid, irritable bowel syndrome, urinary incontinence, peptic ulcer disease, hiatal hernia, chronic low back pain from herniated disc her pain medications are managed by her family doctor, Dr. Vallejo, hypothyroid generalized arthritis, peripheral neuropathy. Patient has a baseline does use a walker. Lives with her son 54 years of age. She also has home help. She has seen a pain specialist before but that did not work out. Recently admitted from April 17 through April 19. Admitted with COPD exacerbation, possible pneumonia, acute UTI, acute flareup of irritable bowel syndrome. Treated with bronchodilators, IV ceftriaxone, Bentyl added Patient now presents with increasing shortness of breath. Wheezing. Slight cough. No sputum. No fever no chills. Complains lower extremity swelling. Appetite is fair. No change in bowel pattern. Has a BM every other day. Stating that she does not want to leave the hospital until she gets better. She had a phone visit with her family doctor Dr. Vallejo. Recently. Admitted with COPD exacerbation. Put on bronchodilators. Tyrese wrap. May 01: Patient was started on IV Lasix drip by Dr. Howard. Swenson catheter in place. Strict I's and O's. Patient is rather unhappy about being on a fluid restriction. Importance of the same explained to her in the presence of her son. Review of systems: Was done for constitutional, cardiovascular, GI, pulmonary. relevant finding as above Active Medications Albuterol/Ipratropium (Ipratropium-Albuterol 3 Ml Neb) 3 ml INHALATION RT-Q4H PRN PRN Reason: Shortness Of Breath Or Wheezing Albuterol/Ipratropium (Ipratropium-Albuterol 3 Ml Neb) 3 ml INHALATION RT-QID [facility] Last Admin: 05/01/21 19:18 Dose: Not Given Documented by: Apixaban (Apixaban 5 Mg Tab) 5 mg PO BID [facility]; Protocol Last Admin: 05/01/21 07:22 Dose: 5 mg Documented by: Atorvastatin Calcium (Atorvastatin 40 Mg Tab) 40 mg PO DAILY [facility] Last Admin: 05/01/21 07:22 Dose: 40 mg Documented by: Dicyclomine HCl (Dicyclomine 10 Mg Cap) 10 mg PO Q6H PRN PRN Reason: Spasms Doxycycline Monohydrate (Doxycycline 100 Mg Cap) 100 mg PO BID [facility] Last Admin: 05/01/21 07:24 Dose: 100 mg Documented by: Formoterol Fumarate (Formoterol Fumarate 20 Mcg/2 Ml Nebu) 20 mcg INHALATION RT-BID [facility] Last Admin: 05/01/21 19:18 Dose: Not Given Documented by: Furosemide 100 mg/ Sodium (Chloride) 100 mls @ 5 mls/hr IV .Q20H [facility] Last Admin: 05/01/21 10:02 Dose: 5 mg/hr, 5 mls/hr Documented by: Levothyroxine Sodium (Levothyroxine 75 Mcg Tab) 150 mcg PO DAILY@0630 [facility] Last Admin: 05/01/21 05:53 Dose: 150 mcg Documented by: Methylprednisolone Sodium Succinate (Methylprednisolone Sod Succi 40 Mg/Ml 1 Ml Vial) 40 mg IV DAILY [facility] Nystatin (Nystatin 100,000 Unit/Gm Powd 15 Gm) 1 applic TOPICAL BID [facility]; Protocol Last Admin: 05/01/21 07:26 Dose: 1 applic Documented by: Ondansetron HCl (Ondansetron Odt 8 Mg Tab.Rapdis) 8 mg PO Q8HR PRN PRN Reason: Nausea And Vomiting Oxycodone/Acetaminophen (Oxycodone-Apap 10-325mg 1 Each Tab) 1 each PO Q4HR PRN PRN Reason: Pain Last Admin: 04/30/21 07:45 Dose: 1 each Documented by: Oxycodone/Acetaminophen (Oxycodone-Apap 10-325mg 1 Each Tab) 1 each PO Q4H [facility] Last Admin: 05/01/21 15:29 Dose: 1 each Documented by: Pantoprazole Sodium (Pantoprazole 40 Mg Tablet) 40 mg PO AC-BRKFST [facility] Last Admin: 05/01/21 07:22 Dose: 40 mg Documented by: Pregabalin (Pregabalin 50 Mg Cap) 50 mg PO BID [facility] Last Admin: 05/01/21 07:22 Dose: 50 mg Documented by: Ropinirole HCl (Ropinirole Hcl 0.25 Mg Tab) 0.25 mg PO BID [facility] Last Admin: 05/01/21 07:22 Dose: 0.25 mg Documented by: Torsemide (Torsemide 20 Mg Tab) 40 mg PO DAILY [facility] Last Admin: 05/01/21 07:24 Dose: 40 mg Documented by: Trazodone HCl (Trazodone Hcl 50 Mg Tab) 50 mg PO HS [facility] Last Admin: 04/30/21 21:25 Dose: 50 mg Documented by: Past medical history to include: Atrial fibrillation, congestive heart failure from diastolic dysfunction, myocardial infarction, osteoarthritis, pulmonary embolism, hypothyroid, irritable bowel syndrome, urinary incontinence, uterine and cervical cancer, peptic ulcer is original ulcer, Scales's esophagus, hiatal hernia, chronic low back pain from herniated disc, kidney stones, peripheral neuropathy, arthritis, uses a walker Social history: Lives with her 54-year-old son. Also has home help. Does use a walker. Nonsmoker Family history: Stroke, hypertension, NC, bladder and lung cancer Physical examination: VITAL SIGNS: 98.6, 69, 18, 150/81, 96% on 4 L GENERAL:, reclining in bed, awake, anxious EYES: Pupils equal. Conjunctiva normal. HEENT: External appearance of nose and ears normal, oral cavity grossly normal. NECK: JVD not raised; masses not palpable. HEART: First and second heart sounds are normal; nonpitting edema. LUNGS: Respiratory rate increased; decreased breath sounds, some wheezing. ABDOMEN: Soft, nontender, liver spleen not palpable, no masses palpable. PSYCH: Alert and oriented x3; mood and affect anxious. MUSCULOSKELETAL: Evidence of OA in multiple joints INVESTIGATIONS, reviewed in the clinical context: May 01: WBC 7.7 hemoglobin 10.7 potassium 4.6 creatinine 1.04 White count 7.5 hemoglobin 10.5 platelets 323 potassium 4.2 creatinine 0.70 Troponin I less than 0.012 ProBNP 876. Pro-calcitonin 0.04 Coronavirus [PCR]: Not detected EKG tracing personally reviewed by me-normal sinus rhythm, first-degree AV block Chest x-ray film personally reviewed by me-underpenetrated. Possible infiltrate Assessment and plan: -Acute COPD exacerbation in a nonsmoker : Slow to respond DuoNeb 4 times a day, IV Solu-Medrol, long-acting beta agonist -Doubt pneumonia given that the pro-calcitonin 0.04. No fever no white count. Possible acute bronchitis. doxycycline - irritable bowel syndrome Bentyl 10 mg every 6 when necessary -Paroxysmal atrial fibrillation, currently in sinus rhythm Telemetry. On eliquis 5 mg twice a day -Hypothyroid Synthroid 150 g a day -Peripheral neuropathy Peripheral 50 mg twice a day -Restless leg syndrome requip 0.25 mg twice a day -Chronic congestive heart failure from diastolic dysfunction EF 55-60%. No acute exacerbation Demadex 40 mg daily. Fluid restriction 1500 mL a day -Chronic gait dysfunction, uses a walker to baseline -Chronic lower extremity nonpitting edema Bilateral Tyrese wrap -Chronic insomnia from multiple medical problems Trazodone 50 mg daily at bedtime -GERD, peptic ulcer disease Protonix 40 mg twice a day -Chronic low back pain from herniated disc and osteoarthritis oxycodone 10 every 4 when necessary. -Chronic medical debility Patient started on IV Lasix drip per pulmonary. Strict I's and O's. Other medications to continue. Care was discussed length with the patient and the son at the bedside. Also spoke to the nurse. Follow BMP. Total time spent about 40 minutes with over 25 dose of discussion.
[2021-05-01] MEDS: traZODone HCL 50 MG TAB PO SCH (21:16)
[2021-05-02] MEDS: oxyCODONE-APAP 10-325MG 1 EACH TAB PO SCH ×6 (01:02→20:44)
[2021-05-02] MEDS: FUROSEMIDE 100 MG in SODIUM CHLORIDE 0.9% 90 ML IV SCH ×2 (02:39→22:47)
[2021-05-02] MEDS ORDERED: ONDANSETRON ODT 4 MG TAB PO PRN (02:57)
[2021-05-02] MEDS: LEVOTHYROXINE 75 MCG TAB PO SCH (05:14)
[2021-05-02] MEDS: PANTOPRAZOLE 40 MG TABLET PO SCH (07:23)
[2021-05-02] MEDS: ATORVASTATIN 40 MG TAB PO SCH (07:23)
[2021-05-02] MEDS: PREGABALIN 50 MG CAP PO SCH ×2 (07:24→20:45)
[2021-05-02] MEDS: DOXYCYCLINE 100 MG CAP PO SCH ×2 (07:24→20:45)
[2021-05-02] MEDS: APIXABAN 5 MG TAB PO SCH ×2 (07:24→20:45)
[2021-05-02] MEDS: NYSTATIN 100,000 UNIT/GM POWD 15 GM TOPICAL SCH ×2 (07:25→20:45)
[2021-05-02] MEDS: methylPREDNISolone SOD SUCCI 40 MG/ML 1 ML VIAL IV SCH ×2 (07:25→07:29)
[2021-05-02] MEDS: TORSEMIDE 20 MG TAB PO SCH (07:25)
[2021-05-02 07:43] LABS: African American GFR (CKD) 60 (>60 ml/min/1.73 sqM); Anion Gap 11 mmol/L; Blood Urea Nitrogen 38 mg/dL (7-17); Calcium 8.7 mg/dL (8.4-10.2); Carbon Dioxide 30 mmol/L (22-30); Chloride 97 mmol/L (98-107); Glucose 96 mg/dL (74-99); Non-African American GFR(CKD) 52 (>60 ml/min/1.73 sqM); Sodium 138 mmol/L (137-145)
[2021-05-02] MEDS: IPRATROPIUM-ALBUTEROL 3 ML NEB INHALATION SCH ×4 (07:43→19:41)
[2021-05-02] MEDS: FORMOTEROL FUMARATE 20 MCG/2 ML NEBU INHALATION SCH ×2 (07:43→19:41)
--- NOTE | 2021-05-02 16:01 | P.PN ---
Progress Note - Text Progress Note Date: 05/02/21 Chief Complaint: Shortness of breath History of presenting complaint This is a pleasant 71-year-old patient, follows with Dr. Vallejo out of [place]. Rather extensive medical history. Chronic stable medical conditions include atrial fibrillation, CAD with history of IA, primary osteoarthritis, hypothyroid, irritable bowel syndrome, urinary incontinence, peptic ulcer disease, hiatal hernia, chronic low back pain from herniated disc her pain medications are managed by her family doctor, Dr. Vallejo, hypothyroid generalized arthritis, peripheral neuropathy. Patient has a baseline does use a walker. Lives with her son 54 years of age. She also has home help. She has seen a pain specialist before but that did not work out. Recently admitted from April 17 through April 19. Admitted with COPD exacerbation, possible pneumonia, acute UTI, acute flareup of irritable bowel syndrome. Treated with bronchodilators, IV ceftriaxone, Bentyl added Patient now presents with increasing shortness of breath. Wheezing. Slight cough. No sputum. No fever no chills. Complains lower extremity swelling. Appetite is fair. No change in bowel pattern. Has a BM every other day. Stating that she does not want to leave the hospital until she gets better. She had a phone visit with her family doctor Dr. Vallejo. Recently. Admitted with COPD exacerbation. Put on bronchodilators. Tyrese wrap. May 01: Patient was started on IV Lasix drip by Dr. Howard. Swenson catheter in place. Strict I's and O's. Patient is rather unhappy about being on a fluid restriction. Importance of the same explained to her in the presence of her son. May 02: Remains on IV Lasix drip. Over 5 L in negative fluid balance. Good urine output. Patient somewhat agitated and irritated. About a fluid restriction. Slight cough. I did ask the patient to like to contact her family doctor Dr. Vallejo. She doesn't want be due to that. Review of systems: Was done for constitutional, cardiovascular, GI, pulmonary. relevant finding as above Active Medications Albuterol/Ipratropium (Ipratropium-Albuterol 3 Ml Neb) 3 ml INHALATION RT-Q4H PRN PRN Reason: Shortness Of Breath Or Wheezing Albuterol/Ipratropium (Ipratropium-Albuterol 3 Ml Neb) 3 ml INHALATION RT-QID [facility] Last Admin: 05/02/21 10:57 Dose: 3 ml Documented by: Apixaban (Apixaban 5 Mg Tab) 5 mg PO BID [facility]; Protocol Last Admin: 05/02/21 07:24 Dose: 5 mg Documented by: Atorvastatin Calcium (Atorvastatin 40 Mg Tab) 40 mg PO DAILY [facility] Last Admin: 05/02/21 07:23 Dose: 40 mg Documented by: Dicyclomine HCl (Dicyclomine 10 Mg Cap) 10 mg PO Q6H PRN PRN Reason: Spasms Doxycycline Monohydrate (Doxycycline 100 Mg Cap) 100 mg PO BID [facility] Last Admin: 05/02/21 07:24 Dose: 100 mg Documented by: Formoterol Fumarate (Formoterol Fumarate 20 Mcg/2 Ml Nebu) 20 mcg INHALATION RT-BID [facility] Last Admin: 05/02/21 07:43 Dose: 20 mcg Documented by: Furosemide 100 mg/ Sodium (Chloride) 100 mls @ 5 mls/hr IV .Q20H [facility] Last Admin: 05/02/21 02:39 Dose: 5 mg/hr, 5 mls/hr Documented by: Levothyroxine Sodium (Levothyroxine 75 Mcg Tab) 150 mcg PO DAILY@0630 [facility] Last Admin: 05/02/21 05:14 Dose: 150 mcg Documented by: Methylprednisolone Sodium Succinate (Methylprednisolone Sod Succi 40 Mg/Ml 1 Ml Vial) 40 mg IV DAILY [facility] Last Admin: 05/02/21 07:29 Dose: 40 mg Documented by: Nystatin (Nystatin 100,000 Unit/Gm Powd 15 Gm) 1 applic TOPICAL BID [facility]; Protoc ol Last Admin: 05/02/21 07:25 Dose: 1 applic Documented by: Ondansetron HCl (Ondansetron Odt 4 Mg Tab) 8 mg PO Q8HR PRN PRN Reason: Nausea And Vomiting Oxycodone/Acetaminophen (Oxycodone-Apap 10-325mg 1 Each Tab) 1 each PO Q4HR PRN PRN Reason: Pain Last Admin: 04/30/21 07:45 Dose: 1 each Documented by: Oxycodone/Acetaminophen (Oxycodone-Apap 10-325mg 1 Each Tab) 1 each PO Q4H [facility] Last Admin: 05/02/21 15:50 Dose: 1 each Documented by: Pantoprazole Sodium (Pantoprazole 40 Mg Tablet) 40 mg PO AC-BRKFST [facility] Last Admin: 05/02/21 07:23 Dose: 40 mg Documented by: Pregabalin (Pregabalin 50 Mg Cap) 50 mg PO BID [facility] Last Admin: 05/02/21 07:24 Dose: 50 mg Documented by: Ropinirole HCl (Ropinirole Hcl 0.25 Mg Tab) 0.25 mg PO BID [facility] Last Admin: 05/02/21 07:24 Dose: 0.25 mg Documented by: Torsemide (Torsemide 20 Mg Tab) 40 mg PO DAILY [facility] Last Admin: 05/02/21 07:25 Dose: 40 mg Documented by: Trazodone HCl (Trazodone Hcl 50 Mg Tab) 50 mg PO HS [facility] Last Admin: 05/01/21 21:16 Dose: 50 mg Documented by: Past medical history to include: Atrial fibrillation, congestive heart failure from diastolic dysfunction, myocardial infarction, osteoarthritis, pulmonary embolism, hypothyroid, irritable bowel syndrome, urinary incontinence, uterine and cervical cancer, peptic ulcer is original ulcer, Scales's esophagus, hiatal hernia, chronic low back pain from herniated disc, kidney stones, peripheral neuropathy, arthritis, uses a walker Social history: Lives with her 54-year-old son. Also has home help. Does use a walker. Nonsmoker Family history: Stroke, hypertension, IA, bladder and lung cancer Physical examination: VITAL SIGNS: 98, 90, 16, 117 x 68, 95% on 2 L GENERAL:, reclining in bed, awake, anxious EYES: Pupils equal. Conjunctiva normal. HEENT: External appearance of nose and ears normal, oral cavity grossly normal. NECK: JVD not raised; masses not palpable. HEART: First and second heart sounds are normal; nonpitting edema. LUNGS: Respiratory rate increased; decreased breath sounds, some wheezing. ABDOMEN: Soft, nontender, liver spleen not palpable, no masses palpable. PSYCH: Alert and oriented x3; mood and affect anxious. MUSCULOSKELETAL: Evidence of OA in multiple joints INVESTIGATIONS, reviewed in the clinical context: May 02: Potassium 4 by cup 30 BUN 38 creatinine 1.06 May 01: WBC 7.7 hemoglobin 10.7 potassium 4.6 creatinine 1.04 White count 7.5 hemoglobin 10.5 platelets 323 potassium 4.2 creatinine 0.70 Troponin I less than 0.012 ProBNP 876. Pro-calcitonin 0.04 Coronavirus [PCR]: Not detected EKG tracing personally reviewed by me-normal sinus rhythm, first-degree AV block Chest x-ray film personally reviewed by me-underpenetrated. Possible infiltrate Assessment and plan: -Acute COPD exacerbation in a nonsmoker : Slow to respond DuoNeb 4 times a day, IV Solu-Medrol, long-acting beta agonist -Doubt pneumonia given that the pro-calcitonin 0.04. No fever no white count. Possible acute bronchitis. doxycycline - irritable bowel syndrome Bentyl 10 mg every 6 when necessary -Paroxysmal atrial fibrillation, currently in sinus rhythm Telemetry. On eliquis 5 mg twice a day -Hypothyroid Synthroid 150 g a day -Peripheral neuropathy Peripheral 50 mg twice a day -Restless leg syndrome requip 0.25 mg twice a day -Acute on Chronic congestive heart failure from diastolic dysfunction EF 55-60%. No acute exacerbation IV Lasix drip Fluid restriction 1500 mL a day. About 5 L in negative fluid balance -Chronic gait dysfunction, uses a walker to baseline -Chronic lower extremity nonpitting edema Bilateral Tyrese wrap -Chronic insomnia from multiple medical problems Trazodone 50 mg daily at bedtime -GERD, peptic ulcer disease Protonix 40 mg twice a day -Chronic low back pain from herniated disc and osteoarthritis oxycodone 10 every 4 when necessary. -Chronic medical debility On IV Lasix drip. Strict I's and O's. . Other medications to continue. Discussed with the patient. 90 discussion was held patient's about expectations clinical comorbidities. Questions answered. Total time spent today about 40 minutes with over 25 minutes of discussion.
[2021-05-02] MEDS: traZODone HCL 50 MG TAB PO SCH (20:45)
[2021-05-03] MEDS: oxyCODONE-APAP 10-325MG 1 EACH TAB PO SCH ×6 (00:24→21:16)
[2021-05-03] MEDS: LEVOTHYROXINE 75 MCG TAB PO SCH (06:01)
[2021-05-03] MEDS: IPRATROPIUM-ALBUTEROL 3 ML NEB INHALATION SCH ×4 (07:27→21:01)
[2021-05-03] MEDS: FORMOTEROL FUMARATE 20 MCG/2 ML NEBU INHALATION SCH ×2 (07:27→21:01)
[2021-05-03 08:28] LABS: African American GFR (CKD) 57 (>60 ml/min/1.73 sqM); Anion Gap 11 mmol/L; Blood Urea Nitrogen 48 mg/dL (7-17); Calcium 8.7 mg/dL (8.4-10.2); Carbon Dioxide 35 mmol/L (22-30); Chloride 93 mmol/L (98-107); Glucose 112 mg/dL (74-99); Non-African American GFR(CKD) 50 (>60 ml/min/1.73 sqM); Potassium 3.8 mmol/L (3.5-5.1); Sodium 139 mmol/L (137-145)
[2021-05-03] MEDS: methylPREDNISolone SOD SUCCI 40 MG/ML 1 ML VIAL IV SCH (08:52)
[2021-05-03] MEDS: PANTOPRAZOLE 40 MG TABLET PO SCH (08:52)
[2021-05-03] MEDS: ATORVASTATIN 40 MG TAB PO SCH (08:52)
[2021-05-03] MEDS: TORSEMIDE 20 MG TAB PO SCH (08:53)
[2021-05-03] MEDS: PREGABALIN 50 MG CAP PO SCH ×2 (08:53→21:14)
[2021-05-03] MEDS: APIXABAN 5 MG TAB PO SCH ×2 (08:53→21:14)
[2021-05-03] MEDS: NYSTATIN 100,000 UNIT/GM POWD 15 GM TOPICAL SCH ×2 (08:53→21:17)
[2021-05-03] MEDS: DOXYCYCLINE 100 MG CAP PO SCH ×2 (08:53→21:15)
--- NOTE | 2021-05-03 09:56 | P.PN ---
Subjective Progress Note Date: 05/03/21 Principal diagnosis: Left lower lobe pneumonia Acute COPD exacerbation Anasarca and third spacing likely related to cor pulmonale, causing subjective shortness of breath ongoing Morbid obesity Dyslipidemia Chronic diastolic heart failure Hypothyroidism Sleep disorders and sleep apnea noncompliant with the CPAP machine 05/03/2021, patient seen eval examined during the rounds labs reviewed medications reviewed care plan discussed, respiratory status remains stable denies any chest pain had some pain this morning however with repositioning improved, patient has been predominantly bedbound would recommend to obtain PT OT evaluation, patient has been on Lasix strip adequate urine output has been obtained, when necessary creatinine noted to be slightly up patient remains on torsemide will DC the Lasix drip and continue torsemide 05/01/2021, patient seen and evaluated examined during the rounds labs reviewed medications reviewed care plan discussed, Lasix strip was interrupted and not continued overnight due to lack of IV axis, patient does have a midline now x- rays and rib is being resumed, she remains short of breath however cuff slightly better, labs reviewed hemoglobin and hematocrit remained stable, BUN/creatinine is 23 1.04, patient is on IV steroids were tapered down to 40 once a day Patient is a 71-year-old morbidly obese female she is hospitalized for urinary tract infection few days ago now she presented again with shortness of breath acute onset it started yesterday while she was sleeping, patient on arrival found to be hypoxic currently she is on 35 L oxygen 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 of anasarca and swelling of the extremities, +3 is present, review her data revealed left lower lobe infiltrate along with inte rstitial edema, and labs are significant for BUN/creatinine of the 7 and 0.7, glucose 112, white cell count 7500 hemoglobin and hematocrit 1031, troponin less than 0.12, pro calcitonin 0.04, COVID-19 is negative, Objective - Vital Signs Vital signs: Vital Signs Temp 97.7 F 05/03/21 08:00 Pulse 79 05/03/21 08:00 Resp 16 05/03/21 08:00 BP 107/69 05/03/21 08:00 Pulse Ox 95 05/03/21 08:00 Intake & Output 05/02/21 05/03/21 05/03/21 18:59 06:59 18:59 Intake Total 1600 500 Output Total 3000 1400 Balance -3000 200 500 Weight 156 kg Intake: Intake, IV Titration 100 Amount Furosemide 100 mg In 100 Sodium Chloride 0.9% 90 ml @ 5 MG/HR 5 mls/hr IV .Q20H [facility] Rx#:[id number] Oral 1500 500 Output: Urine 3000 1400 Other: Voiding Method Indwelling Catheter Indwelling Catheter - Exam - Constitutional General appearance: disheveled, morbidly obese - EENT Eyes: PERRLA Ears: bilateral: normal - Neck Neck: normal ROM Carotids: bilateral: upstroke normal Thyroid: bilateral: normal size - Respiratory Respiratory: bilateral: diminished (Predominantly at the bases) - Cardiovascular Rhythm: regular Heart sounds: normal: S1, S2 - Gastrointestinal General gastrointestinal: decreased bowel sounds, distended - Integumentary Integumentary: decreased turgor - Neurologic Neurologic: CNII-XII intact - Musculoskeletal Musculoskeletal: generalized weakness, strength equal bilaterally - Psychiatric Psychiatric: A&O x's 3, appropriate affect, intact judgment & insight - Labs CBC & Chem 7: 05/01/21 05:31 05/03/21 07:38 Labs: Abnormal Lab Results - Last 24 Hours (Table) 05/03/21 Range/Units 07:38 Chloride 93 L (98-107) mmol/L Carbon Dioxide 35 H (22-30) mmol/L BUN 48 H (7-17) mg/dL Creatinine 1.11 H (0.52-1.04) mg/dL Glucose 112 H (74-99) mg/dL Assessment and Plan Assessment: Left lower lobe pneumonia, clinically improved Acute COPD exacerbation Anasarca and third spacing likely related to cor pulmonale, causing subjective shortness of breath ongoing Morbid obesity Dyslipidemia Chronic diastolic heart failure Hypothyroidism Sleep disorders and sleep apnea noncompliant with the CPAP machine Plan: Agree with oral antibiotics like doxycycline Bronchodilators IV steroids however however for now we'll decrease to once daily, can be switched to oral Diuresis will DC Lasix drip, and continue torsemide Continue direct anticoagulants as taking before Further plan of care as per clinical response of the patient Agree with discharge planning Time with Patient: Greater than 30
[2021-05-03] MEDS: acetaZOLAMIDE 250 MG TAB PO SCH ×2 (13:06→21:15)
--- NOTE | 2021-05-03 15:34 | P.PN ---
Progress Note - Text Progress Note Date: 05/03/21 Chief Complaint: Shortness of breath History of presenting complaint This is a pleasant 71-year-old patient, follows with Dr. Vallejo out of [place]. Rather extensive medical history. Chronic stable medical conditions include atrial fibrillation, CAD with history of NM, primary osteoarthritis, hypothyroid, irritable bowel syndrome, urinary incontinence, peptic ulcer disease, hiatal hernia, chronic low back pain from herniated disc her pain medications are managed by her family doctor, Dr. Vallejo, hypothyroid generalized arthritis, peripheral neuropathy. Patient has a baseline does use a walker. Lives with her son 54 years of age. She also has home help. She has seen a pain specialist before but that did not work out. Recently admitted from April 17 through April 19. Admitted with COPD exacerbation, possible pneumonia, acute UTI, acute flareup of irritable bowel syndrome. Treated with bronchodilators, IV ceftriaxone, Bentyl added Patient now presents with increasing shortness of breath. Wheezing. Slight cough. No sputum. No fever no chills. Complains lower extremity swelling. Appetite is fair. No change in bowel pattern. Has a BM every other day. Stating that she does not want to leave the hospital until she gets better. She had a phone visit with her family doctor Dr. Vallejo. Recently. Admitted with COPD exacerbation. Put on bronchodilators. Tyrese wrap. May 01: Patient was started on IV Lasix drip by Dr. Howard. Swenson catheter in place. Strict I's and O's. Patient is rather unhappy about being on a fluid restriction. Importance of the same explained to her in the presence of her son. May 02: Remains on IV Lasix drip. Over 5 L in negative fluid balance. Good urine output. Patient somewhat agitated and irritated. About a fluid restriction. Slight cough. I did ask the patient to like to contact her family doctor Dr. Vallejo. She doesn't want be due to that. May 03: Patient was taken off Lasix drip this morning. Patient about 7700 mL in negative fluid balance. Kept on fluid restriction. Oral intake about 50%. Discussed with Dr. Howard from pulmonary. Should be ready to be discharged later today or tomorrow. Patient refused to go home today like to go home tomorrow because of family being at home tomorrow Review of systems: Was done for constitutional, cardiovascular, GI, pulmonary. relevant finding as above Active Medications Acetazolamide (Acetazolamide 250 Mg Tab) 250 mg PO BID [facility] Last Admin: 05/03/21 13:06 Dose: 250 mg Documented by: Albuterol/Ipratropium (Ipratropium-Albuterol 3 Ml Neb) 3 ml INHALATION RT-Q4H PRN PRN Reason: Shortness Of Breath Or Wheezing Albuterol/Ipratropium (Ipratropium-Albuterol 3 Ml Neb) 3 ml INHALATION RT-QID [facility] Last Admin: 05/03/21 10:58 Dose: Not Given Documented by: Apixaban (Apixaban 5 Mg Tab) 5 mg PO BID [facility]; Protocol Last Admin: 05/03/21 08:53 Dose: 5 mg Documented by: Atorvastatin Calcium (Atorvastatin 40 Mg Tab) 40 mg PO DAILY [facility] Last Admin: 05/03/21 08:52 Dose: 40 mg Documented by: Dicyclomine HCl (Dicyclomine 10 Mg Cap) 10 mg PO Q6H PRN PRN Reason: Spasms Doxycycline Monohydrate (Doxycycline 100 Mg Cap) 100 mg PO BID [facility] Last Admin: 05/03/21 08:53 Dose: 100 mg Documented by: Formoterol Fumarate (Formoterol Fumarate 20 Mcg/2 Ml Nebu) 20 mcg INHALATION RT-BID [facility] Last Admin: 05/03/21 07:27 Dose: Not Given Documented by: Levothyroxine Sodium (Levothyroxine 75 Mcg Tab) 150 mcg PO DAILY@0630 [facility] Last Admin: 05/03/21 06:01 Dose: 150 mcg Documented by: Nystatin (Nystatin 100,000 Unit/Gm Powd 15 Gm) 1 applic TOPICAL BID [facility]; Protocol Last Admin: 05/03/21 08:53 Dose: 1 applic Documented by: Ondansetron HCl (Ondansetron Odt 4 Mg Tab) 8 mg PO Q8HR PRN PRN Reason: Nausea And Vomiting Oxycodone/Acetaminophen (Oxycodone-Apap 10-325mg 1 Each Tab) 1 each PO Q4HR PRN PRN Reason: Pain Last Admin: 04/30/21 07:45 Dose: 1 each Documented by: Oxycodone/Acetaminophen (Oxycodone-Apap 10-325mg 1 Each Tab) 1 each PO Q4H [facility] Last Admin: 05/03/21 13:05 Dose: 1 each Documented by: Pantoprazole Sodium (Pantoprazole 40 Mg Tablet) 40 mg PO AC-BRKFST [facility] Last Admin: 05/03/21 08:52 Dose: 40 mg Documented by: Prednisone (Prednisone 20 Mg Tab) 40 mg PO DAILY [facility] Pregabalin (Pregabalin 50 Mg Cap) 50 mg PO BID [facility] Last Admin: 05/03/21 08:53 Dose: 50 mg Documented by: Ropinirole HCl (Ropinirole Hcl 0.25 Mg Tab) 0.25 mg PO BID [facility] Last Admin: 05/03/21 08:52 Dose: 0.25 mg Documented by: Torsemide (Torsemide 20 Mg Tab) 40 mg PO DAILY [facility] Last Admin: 05/03/21 08:53 Dose: 40 mg Documented by: Trazodone HCl (Trazodone Hcl 50 Mg Tab) 50 mg PO [facility] Last Admin: 05/02/21 20:45 Dose: 50 mg Documented by: Past medical history to include: Atrial fibrillation, congestive heart failure from diastolic dysfunction, myocardial infarction, osteoarthritis, pulmonary embolism, hypothyroid, irritable bowel syndrome, urinary incontinence, uterine and cervical cancer, peptic ulcer is original ulcer, Scales's esophagus, hiatal hernia, chronic low back pain from herniated disc, kidney stones, peripheral neuropathy, arthritis, uses a walker Social history: Lives with her 54-year-old son. Also has home help. Does use a walker. Nonsmoker Family history: Stroke, hypertension, NM, bladder and lung cancer Physical examination: VITAL SIGNS: 98.3, 89, 16, 93/55, 90% on 2 L GENERAL:, reclining in bed, awake, anxious EYES: Pupils equal. Conjunctiva normal. HEENT: External appearance of nose and ears normal, oral cavity grossly normal. NECK: JVD not raised; masses not palpable. HEART: First and second heart sounds are normal; nonpitting edema. LUNGS: Respiratory rate increased; decreased breath sounds, some wheezing. ABDOMEN: Soft, nontender, liver spleen not palpable, no masses palpable. PSYCH: Alert and oriented x3; mood and affect anxious. MUSCULOSKELETAL: Evidence of OA in multiple joints INVESTIGATIONS, reviewed in the clinical context: May 03: Potassium 3.8 by cup 35 BUN 48 creatinine 1.11 May 02: Potassium 4 by cup 30 BUN 38 creatinine 1.06 May 01: WBC 7.7 hemoglobin 10.7 potassium 4.6 creatinine 1.04 White count 7.5 hemoglobin 10.5 platelets 323 potassium 4.2 creatinine 0.70 Troponin I less than 0.012 ProBNP 876. Pro-calcitonin 0.04 Coronavirus [PCR]: Not detected EKG tracing personally reviewed by me-normal sinus rhythm, first-degree AV block Chest x-ray film personally reviewed by me-underpenetrated. Possible infiltrate Assessment and plan: -Acute COPD exacerbation in a nonsmoker : Bed to [facility] 4 times a day, IV Solu-Medrol,-changed to by mouth meds prednisone long- acting beta agonist -Doubt pneumonia given that the pro-calcitonin 0.04. No fever no white count. Possible acute bronchitis. doxycycline - irritable bowel syndrome Bentyl 10 mg every 6 when necessary -Paroxysmal atrial fibrillation, currently in sinus rhythm Telemetry. On eliquis 5 mg twice a day -Hypothyroid Synthroid 150 g a day -Peripheral neuropathy Peripheral 50 mg twice a day -Restless leg syndrome requip 0.25 mg twice a day -Acute on Chronic congestive heart failure from diastolic dysfunction EF 55-60%. No acute exacerbation IV Lasix drip Fluid restriction 1500 mL a day. 7.7 L of fluid negative balance. DC Lasix drip -Chronic gait dysfunction, uses a walker to baseline -Chronic lower extremity nonpitting edema Bilateral Tyrese wrap -Chronic insomnia from multiple medical problems Trazodone 50 mg daily at bedtime -GERD, peptic ulcer disease Protonix 40 mg twice a day -Chronic low back pain from herniated disc and osteoarthritis oxycodone 10 every 4 when necessary. -Chronic medical debility Discussed with patient. Discussed with Dr. Howard. Patient beginning discharged tomorrow as she left family member at home. Changed to by mouth prednisone. IV Lasix drip discontinued. Communicated with the nurse Justin and rehabilitation case coordinator. Total time spent today about 40 minutes with over 25 minutes of discussion.
[2021-05-03] MEDS: predniSONE 20 MG TAB PO SCH (16:27)
[2021-05-03] MEDS: traZODone HCL 50 MG TAB PO SCH (21:14)
[2021-05-04] MEDS: oxyCODONE-APAP 10-325MG 1 EACH TAB PO SCH ×4 (01:00→12:56)
[2021-05-04 05:16] VITALS: RESP 18
[2021-05-04] MEDS: LEVOTHYROXINE 75 MCG TAB PO SCH (06:06)
[2021-05-04] MEDS: FORMOTEROL FUMARATE 20 MCG/2 ML NEBU INHALATION SCH (08:02)
[2021-05-04] MEDS: IPRATROPIUM-ALBUTEROL 3 ML NEB INHALATION SCH (08:03)
[2021-05-04] MEDS: TORSEMIDE 20 MG TAB PO SCH (08:34)
[2021-05-04] MEDS: predniSONE 20 MG TAB PO SCH (08:41)
[2021-05-04] MEDS: DOXYCYCLINE 100 MG CAP PO SCH (08:41)
[2021-05-04] MEDS: APIXABAN 5 MG TAB PO SCH (08:41)
[2021-05-04] MEDS: PREGABALIN 50 MG CAP PO SCH (08:41)
[2021-05-04] MEDS: PANTOPRAZOLE 40 MG TABLET PO SCH (08:41)
[2021-05-04] MEDS: ATORVASTATIN 40 MG TAB PO SCH (08:42)
[2021-05-04] MEDS: acetaZOLAMIDE 250 MG TAB PO SCH (08:42)
[2021-05-04] MEDS: NYSTATIN 100,000 UNIT/GM POWD 15 GM TOPICAL SCH (08:43)
[2021-05-04 08:47] VITALS: BP 119/72; PULSE 68; TEMP 97.8
--- NOTE | 2021-05-04 18:25 | P.DS ---
Providers Date of admission: 04/29/21 19:36 Expected date of discharge: 05/04/21 Attending physician: Wilmer Sullivan Consults: 04/29/21 19:36 Consult Physician Routine Consulting Provider: Peter Howard Consult Reason/Comments: COPD, PNA Do you want consulting provider notified?: Yes Primary care physician: Delio Vallejo MD Hospital Course: Chief Complaint: Shortness of breath History of presenting complaint This is a pleasant 71-year-old patient, follows with Dr. Vallejo out of [place]. Rather extensive medical history. Chronic stable medical conditions include atrial fibrillation, CAD with history of ID, primary osteoarthritis, hypothyroid, irritable bowel syndrome, urinary incontinence, peptic ulcer disease, hiatal hernia, chronic low back pain from herniated disc her pain medications are managed by her family doctor, Dr. Vallejo, hypothyroid generalized arthritis, peripheral neuropathy. Patient has a baseline does use a walker. Lives with her son 54 years of age. She also has home help. She has seen a pain specialist before but that did not work out. Recently admitted from April 17 through April 19. Admitted with COPD exacerbation, possible pneumonia, acute UTI, acute flareup of irritable bowel syndrome. Treated with bronchodilators, IV ceftriaxone, Bentyl added Patient now presents with increasing shortness of breath. Wheezing. Slight cough. No sputum. No fever no chills. Complains lower extremity swelling. Appetite is fair. No change in bowel pattern. Has a BM every other day. Stating that she does not want to leave the hospital until she gets better. She had a phone visit with her family doctor Dr. Vallejo. Recently. Admitted with COPD exacerbation. Put on bronchodilators. Tyrese wrap. May 01: Patient was started on IV Lasix drip by Dr. Howard. Swenson catheter in place. Strict I's and O's. Patient is rather unhappy about being on a fluid restriction. Importance of the same explained to her in the presence of her son. May 02: Remains on IV Lasix drip. Over 5 L in negative fluid balance. Good urine output. Patient somewhat agitated and irritated. About a fluid restriction. Slight cough. I did ask the patient to like to contact her family doctor Dr. Vallejo. She doesn't want be due to that. May 03: Patient was taken off Lasix drip this morning. Patient about 7700 mL in negative fluid balance. Kept on fluid restriction. Oral intake about 50%. Discussed with Dr. Howard from pulmonary. Should be ready to be discharged later today or tomorrow. Patient refused to go home today like to go home tomorrow because of family being at home tomorrow May 04: Breathing stable. Oral intake fair. Fluid restriction reinforced. Will go home on oral dose of Lasix. Follow-up with Dr. Howard. Consultation: Dr. Howard from pulmonary Past medical history to include: Atrial fibrillation, congestive heart failure from diastolic dysfunction, myocardial infarction, osteoarthritis, pulmonary embolism, hypothyroid, irritable bowel syndrome, urinary incontinence, uterine and cervical cancer, peptic ulcer is original ulcer, Scales's esophagus, hiatal hernia, chronic low back pain from herniated disc, kidney stones, peripheral neuropathy, arthritis, uses a walker Social history: Lives with her 54-year-old son. Also has home help. Does use a walker. Nonsmoker Family history: Stroke, hypertension, ID, bladder and lung cancer Physical examination: VITAL SIGNS: 97.8, 68, 18, 119 with 72, 97% on room air GENERAL:, reclining in bed, awake, comfortable EYES: Pupils equal. Conjunctiva normal. HEENT: External appearance of nose and ears normal, oral cavity grossly normal. NECK: JVD not raised; masses not palpable. HEART: First and second heart sounds are normal; nonpitting edema. LUNGS: Respiratory rate increased; decreased breath sounds, some wheezing. ABDOMEN: Soft, nontender, liver spleen not palpable, no masses palpable. PSYCH: Alert and oriented x3; mood and affect anxious. MUSCULOSKELETAL: Evidence of OA in multiple joints INVESTIGATIONS, reviewed in the clinical context: May 03: Potassium 3.8 by cup 35 BUN 48 creatinine 1.11 May 02: Potassium 4 by cup 30 BUN 38 creatinine 1.06 May 01: WBC 7.7 hemoglobin 10.7 potassium 4.6 creatinine 1.04 White count 7.5 hemoglobin 10.5 platelets 323 potassium 4.2 creatinine 0.70 Troponin I less than 0.012 ProBNP 876. Pro-calcitonin 0.04 Coronavirus [PCR]: Not detected EKG tracing personally reviewed by me-normal sinus rhythm, first-degree AV block Chest x-ray film personally reviewed by me-underpenetrated. Possible infiltrate Assessment and plan: -Acute COPD exacerbation in a nonsmoker : Improved DuoNeb , IV Solu-Medrol,-changed to by mouth meds prednisone long-acting beta agonist -Doubt pneumonia given that the pro-calcitonin 0.04. No fever no white count. Possible acute bronchitis. doxycycline - irritable bowel syndrome Bentyl 10 mg every 6 when necessary -Paroxysmal atrial fibrillation, currently in sinus rhythm Telemetry. On eliquis 5 mg twice a day -Hypothyroid Synthroid 150 g a day -Peripheral neuropathy Peripheral 50 mg twice a day -Restless leg syndrome requip 0.25 mg twice a day -Acute on Chronic congestive heart failure from diastolic dysfunction EF 55-60%. No acute exacerbation IV Lasix drip Fluid restriction 1500 mL a day. 7.7 L of fluid negative balance. DC Lasix drip. Oral diuretic -Chronic gait dysfunction, uses a walker to baseline -Chronic lower extremity nonpitting edema Bilateral Tyrese wrap-patient cannot tolerate -Chronic insomnia from multiple medical problems Trazodone 50 mg daily at bedtime -GERD, peptic ulcer disease Protonix 40 mg twice a day -Chronic low back pain from herniated disc and osteoarthritis oxycodone 10 every 4 when necessary. -Chronic medical debility Disposition: Home Plan - Discharge Summary Discharge Rx Participant: No New Discharge Prescriptions: New predniSONE 10 mg PO DAILY #30 tab Doxycycline [Vibramycin] 100 mg PO BID #6 cap Continue Levothyroxine Sodium [Synthroid] 150 mcg PO DAILY Pregabalin 50 mg PO BID Atorvastatin [Lipitor] 40 mg PO DAILY Apixaban [Eliquis] 5 mg PO BID #60 tab traZODone HCL 50 mg PO HS rOPINIRole HCL [Requip] 0.25 mg PO BID Omeprazole 20 mg PO BID oxyCODONE HCL/ACETAMINOPHEN [Percocet 10-325 mg] 1 tab PO Q4H Ondansetron Odt [Zofran ODT] 8 mg PO Q8HR PRN PRN Reason: Nausea And Vomiting Dicyclomine [Bentyl] 10 mg PO Q6H PRN #30 cap PRN Reason: Spasms Torsemide [Demadex] 40 mg PO DAILY #60 tab Ipratropium-Albuterol Nebulize [Duoneb 0.5 mg-3 mg/3 ml Soln] 3 ml INHALATION RT-TID PRN PRN Reason: Shortness Of Breath Discharge Medication List Levothyroxine Sodium [Synthroid] 150 mcg PO DAILY 06/18/18 [History] Pregabalin 50 mg PO BID 02/11/20 [History] Atorvastatin [Lipitor] 40 mg PO DAILY 09/24/20 [History] Apixaban [Eliquis] 5 mg PO BID #60 tab 09/28/20 [Rx] traZODone HCL 50 mg PO HS 01/11/21 [History] rOPINIRole HCL [Requip] 0.25 mg PO BID 02/08/21 [History] Omeprazole 20 mg PO BID 04/16/21 [History] Ondansetron Odt [Zofran ODT] 8 mg PO Q8HR PRN 04/16/21 [History] oxyCODONE HCL/ACETAMINOPHEN [Percocet 10-325 mg] 1 tab PO Q4H 04/16/21 [History] Dicyclomine [Bentyl] 10 mg PO Q6H PRN #30 cap 04/19/21 [Rx] Torsemide [Demadex] 40 mg PO DAILY #60 tab 04/19/21 [Rx] Ipratropium-Albuterol Nebulize [Duoneb 0.5 mg-3 mg/3 ml Soln] 3 ml INHALATION RT-TID PRN 04/29/21 [History] Doxycycline [Vibramycin] 100 mg PO BID #6 cap 05/04/21 [Rx] predniSONE 10 mg PO DAILY #30 tab 05/04/21 [Rx] Follow up Appointment(s)/Referral(s): [facility],Home Care [NON-STAFF] - (Aislinn Quinteros will call to schedule your first home care visit. ) Delio Vallejo MD [Primary Care Provider] - 1-2 days (Office closed at time of discharge. Please call Thursday to make your follow up appt.) Peter Howard MD [STAFF PHYSICIAN] - 1 Week (Office closed at time of discharge. Please call Thursday morning to make your follw up appt.) Patient Instructions/Handouts: Viral Pneumonia (DC), Swenson Catheter Placement and Care (DC), COPD (Chronic Obstructive Pulmonary Disease) (DC) Activity/Diet/Wound Care/Special Instructions: *Please make appointment for Dr. Howard at discharge. *Discharging RN - please call [facility] [phone] to set up w/c van at discharge. Pt will be billed for ride. Discharge Disposition: HOME SELF-CARE
== END 2021-05-04 14:23 | disposition home health service (06) | DRG 190 ==
LOC: EC 17:10 → 4SSUR 19:36
PROVIDERS: ADMIT Hospitalist; ATTEND Hospitalist
PROC: 05HF33Z Insertion of Infusion Device into Left Cephalic Vein, Percutaneous Approach (ICD-10-PCS; principal; 2021-05-01 09:40)
DX: J44.0 Chronic obstructive pulmonary disease with (acute) lower respiratory infection (principal); J96.21 Acute and chronic respiratory failure with hypoxia; I50.32 Chronic diastolic (congestive) heart failure; Z68.43 Body mass index [BMI] 50.0-59.9, adult; I27.81 Cor pulmonale (chronic); M51.24 Other intervertebral disc displacement, thoracic region; I48.0 Paroxysmal atrial fibrillation; G25.81 Restless legs syndrome; E66.01 Morbid (severe) obesity due to excess calories; J44.1 Chronic obstructive pulmonary disease with (acute) exacerbation; Z20.822 Contact with and (suspected) exposure to COVID-19; J20.9 Acute bronchitis, unspecified; I44.0 Atrioventricular block, first degree; E03.9 Hypothyroidism, unspecified; K21.9 Gastro-esophageal reflux disease without esophagitis; K22.70 Barrett's esophagus without dysplasia; K44.9 Diaphragmatic hernia without obstruction or gangrene; M51.26 Other intervertebral disc displacement, lumbar region; G89.29 Other chronic pain; I25.10 Atherosclerotic heart disease of native coronary artery without angina pectoris; E78.5 Hyperlipidemia, unspecified; K58.9 Irritable bowel syndrome, unspecified; I25.2 Old myocardial infarction; G62.9 Polyneuropathy, unspecified; R26.9 Unspecified abnormalities of gait and mobility; K27.9 Peptic ulcer, site unspecified, unspecified as acute or chronic, without hemorrhage or perforation; F41.9 Anxiety disorder, unspecified; F32.9 Major depressive disorder, single episode, unspecified; G47.30 Sleep apnea, unspecified; R13.10 Dysphagia, unspecified; R32 Unspecified urinary incontinence; L30.9 Dermatitis, unspecified; M19.91 Primary osteoarthritis, unspecified site; F51.04 Psychophysiologic insomnia; Z91.19 Patient's noncompliance with other medical treatment and regimen; Z79.01 Long term (current) use of anticoagulants; Z79.890 Hormone replacement therapy; Z79.899 Other long term (current) drug therapy; Z79.891 Long term (current) use of opiate analgesic; Z86.711 Personal history of pulmonary embolism; Z86.73 Personal history of transient ischemic attack (TIA), and cerebral infarction without residual deficits; Z87.01 Personal history of pneumonia (recurrent); Z87.440 Personal history of urinary (tract) infections; Z90.710 Acquired absence of both cervix and uterus; Z85.41 Personal history of malignant neoplasm of cervix uteri; Z87.442 Personal history of urinary calculi; Z86.19 Personal history of other infectious and parasitic diseases; Z90.89 Acquired absence of other organs; Z90.49 Acquired absence of other specified parts of digestive tract; Z87.19 Personal history of other diseases of the digestive system; Z96.653 Presence of artificial knee joint, bilateral; Z96.642 Presence of left artificial hip joint; Z74.01 Bed confinement status; Z87.448 Personal history of other diseases of urinary system; Z87.81 Personal history of (healed) traumatic fracture; Z98.890 Other specified postprocedural states; Z88.5 Allergy status to narcotic agent; Z71.3 Dietary counseling and surveillance; Z88.8 Allergy status to other drugs, medicaments and biological substances; Z88.6 Allergy status to analgesic agent; Z91.041 Radiographic dye allergy status; Z82.49 Family history of ischemic heart disease and other diseases of the circulatory system; Z80.1 Family history of malignant neoplasm of trachea, bronchus and lung; Z82.3 Family history of stroke; Z80.52 Family history of malignant neoplasm of bladder; Z82.69 Family history of other diseases of the musculoskeletal system and connective tissue
CPT/HCPCS: 36410; 36415; 71045; 76937; 80048; 80053; 83605; 83735; 83880; 84100; 84145; 84484; 85025; 85610; 85730; 87635; 93005; 94640; 94760; 99285

== ENCOUNTER 2021-05-30 19:20 | Observation (INO) | payer MEDICARE, OTHER ==
--- NOTE | 2021-05-30 19:52 | XR ---
EXAMINATION TYPE: XR chest 2V DATE OF EXAM: 05/30/2021 COMPARISON: 04/29/21 HISTORY: Shortness of breath TECHNIQUE: Frontal and lateral views of the chest are obtained. FINDINGS: Scattered senescent parenchymal changes noted. Hyperinflation compatible with COPD. No evidence for infiltrate. No evidence for atelectasis. Heart size is stable. Mediastinal structures are stable and grossly unremarkable. No evidence for hilar prominence. Degenerative changes dorsal spine. IMPRESSION: 1. No evidence for acute pulmonary disease.
[2021-05-30] MEDS ORDERED: ONDANSETRON 4 MG/2 ML VIAL IVP STA (20:15)
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
[2021-05-30 20:55] LABS: Basophils # (A) 0.1 k/uL (0-0.2); Basophils % (A) 1 %; Eosinophils # (A) 0.2 k/uL (0-0.7); Eosinophils % (A) 3 %; HCT 36.5 % (34.0-46.0); HGB 11.6 gm/dL (11.4-16.0); Lymphocytes # (A) 1.7 k/uL (1.0-4.8); Lymphocytes % (A) 20 %; MCH 25.9 pg (25.0-35.0); MCHC 31.8 g/dL (31.0-37.0); MCV 81.5 fL (80.0-100.0); Mean Platelet Volume 6.9; Monocytes # (A) 0.4 k/uL (0-1.0); Monocytes % (A) 5 %; Neutrophils # (A) 6.1 k/uL (1.3-7.7); Neutrophils % (A) 71 %; Platelet Count 376 k/uL (150-450); RBC 4.48 m/uL (3.80-5.40); RDW 15.6 % (11.5-15.5); WBC 8.6 k/uL (3.8-10.6)
[2021-05-30 21:04] LABS: Partial Thromboplastin Time 24.7 sec (22.0-30.0); Prothrombin Time 10.6 sec (9.0-12.0)
[2021-05-30 21:11] LABS: Albumin 3.9 g/dL (3.5-5.0); Magnesium 1.3 mg/dL (1.6-2.3); Potassium 3.1 mmol/L (3.5-5.1); Total Bilirubin 0.4 mg/dL (0.2-1.3); Total Protein 6.6 g/dL (6.3-8.2)
[2021-05-30] MEDS ORDERED: HYDROmorphone 1 MG/ML 1 ML SYRINGE IVP STA (21:52)
[2021-05-30] MEDS ORDERED: MAGNESIUM OXIDE 400 MG TAB PO STA (23:09)
[2021-05-30] MEDS ORDERED: methylPREDNISolone SOD SUCCI 125 MG/2 ML VIAL IV STA (23:11)
[2021-05-30] MEDS ORDERED: POTASSIUM BICARBONATE/CIT AC 20 MEQ TABLET.EFF PO ONE (23:15)
[2021-05-30] MEDS: IPRATROPIUM-ALBUTEROL 3 ML NEB INHALATION STA (23:20)
[2021-05-30] MEDS: HYDROmorphone 1 MG/ML 1 ML SYRINGE IVP PRN (23:24)
[2021-05-31] MEDS: IPRATROPIUM-ALBUTEROL 3 ML NEB INHALATION STA (00:33)
[2021-05-31] MEDS: methylPREDNISolone SOD SUCCI 125 MG/2 ML VIAL IV SCH ×3 (02:22→12:41)
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
[2021-05-31] MEDS: HYDROmorphone 1 MG/ML 1 ML SYRINGE IVP PRN (03:26)
[2021-05-31] MEDS ORDERED: POTASSIUM CHLORIDE ER 20 MEQ TAB.ER PO ONE (03:30)
[2021-05-31] MEDS ORDERED: IPRATROPIUM-ALBUTEROL 3 ML NEB INHALATION PRN (03:30)
[2021-05-31] MEDS: oxyCODONE-APAP 10-325MG 1 EACH TAB PO SCH ×4 (05:11→16:42)
[2021-05-31] MEDS ORDERED: LEVOTHYROXINE 75 MCG TAB PO SCH (06:30)
[2021-05-31] MEDS: IPRATROPIUM-ALBUTEROL 3 ML NEB INHALATION SCH ×3 (07:52→16:17)
[2021-05-31] MEDS ORDERED: NON FORMULARY DRUG (Tiotropium 2.5 Mcg/Puff 10 PUFF Each) INHALATION SCH (08:00)
[2021-05-31] MEDS: ALBUTEROL NEBULIZED 2.5 MG/3 ML INHALATION SCH ×3 (08:06→16:17)
[2021-05-31] MEDS ORDERED: PREGABALIN 50 MG CAP PO SCH (09:00)
[2021-05-31] MEDS ORDERED: ATORVASTATIN 40 MG TAB PO SCH (09:00)
[2021-05-31] MEDS ORDERED: FUROSEMIDE 40 MG TAB PO SCH (09:00)
[2021-05-31] MEDS ORDERED: APIXABAN 5 MG TAB PO SCH (09:00)
[2021-05-31 09:48] LABS: HCT 37.7 % (37.2-46.3); HGB 11.4 g/dL (12.0-15.0); MCH 25.6 pg (27.0-32.0); MCHC 30.2 g/dL (32.0-37.0); MCV 84.5 fL (80.0-97.0); Mean Platelet Volume 10.1 fL (9.5-12.2); Platelet Count 324 X 10*3/uL (140-440); RBC 4.46 X 10*6/uL (4.10-5.20); RDW 16.1 % (11.5-14.5)
[2021-05-31 10:52] LABS: African American GFR (CKD) 51.9 (60.0-200.0); BUN/Creat Ratio 9.67 Ratio (12.00-20.00); Blood Urea Nitrogen 11.6 mg/dL (9.0-27.0); Non-African American GFR(CKD) 44.8 (60.0-200.0); Potassium 3.6 mmol/L (3.5-5.5)
--- NOTE | 2021-05-31 11:26 | P.DS ---
Providers Date of admission: 05/30/21 23:11 Expected date of discharge: 05/31/21 Attending physician: Randell Chirinos MD Primary care physician: Delio Vallejo MD Hospital Course: The patient is a 71-year-old female with a PMH of A. fib on Eliquis, diastolic CHF, hypertension, hypothyroidism, chronic lower back pain, who presents to the emergency room with complaints of shortness of breath. Patient reports that over the past 1 week, she isn't gradually worsening shortness of breath which she attributes to her COPD and her CHF flaring up. Patient reports that she feels as though she has gained more water weight. She denied chest discomfort, orthopnea, PND. Denies fever, chills, cough. No nausea, vomiting, abdominal pain, diarrhea. Chest x-ray was unremarkable. Laboratory evaluation in the emergency room revealed Potassium 3.1, lactic acid 1.6, and troponin less than 0.02 with proBNP 110. The patient was admitted to the medicine service for further management of acute COPD exacerbation. Patient was started on IV Solu-M edrol and bronchodilators. Patient was seen and evaluated by me this morning. Her lungs were clear to auscultation bilaterally. She was concerned about a mole in the back of her neck that I observed measuring approximately 1.5 cm and appeared dark brown/black in color and slightly raised. I advised her to follow-up with dermatology as soon as possible. Patient will be discharged home in a stable condition. For further details about this hospitalization please refer to the electronic chart. General: The patient is awake and alert, in no distress Eye: there is normal conjunctiva bilaterally. Neck: The neck is supple, there is no JVD. Cardiovascular: Normal S1-S2, no S3-S4, no murmurs. Respiratory: Lungs clear to auscultation bilaterally Gastrointestinal: Abdomen is soft, nontender Musculoskeletal: There is no pedal edema. Neurological:. Speech is normal. Skin: Skin is warm and dry Patient Condition at Discharge: Fair Plan - Discharge Summary Discharge Rx Participant: No New Discharge Prescriptions: Continue Levothyroxine Sodium [Synthroid] 150 mcg PO DAILY Pregabalin 50 mg PO BID Atorvastatin [Lipitor] 40 mg PO DAILY Apixaban [Eliquis] 5 mg PO BID #60 tab predniSONE 10 mg PO DAILY #30 tab Doxycycline [Vibramycin] 100 mg PO BID #6 cap traZODone HCL 50 mg PO HS rOPINIRole HCL [Requip] 0.25 mg PO BID Omeprazole 20 mg PO BID oxyCODONE HCL/ACETAMINOPHEN [Percocet 10-325 mg] 1 tab PO Q4H Ondansetron Odt [Zofran ODT] 8 mg PO Q8HR PRN PRN Reason: Nausea And Vomiting Dicyclomine [Bentyl] 10 mg PO Q6H PRN #30 cap PRN Reason: Spasms Ipratropium-Albuterol Nebulize [Duoneb 0.5 mg-3 mg/3 ml Soln] 3 ml INHALATION RT-TID PRN PRN Reason: Shortness Of Breath Torsemide [Demadex] 100 mg PO DAILY Tiotropium 2.5 Mcg/Puff [Spiriva Respimat 2.5 Mcg] 2 puff INHALATION RT-DAILY Discharge Medication List Levothyroxine Sodium [Synthroid] 150 mcg PO DAILY 06/18/18 [History] Pregabalin 50 mg PO BID 02/11/20 [History] Atorvastatin [Lipitor] 40 mg PO DAILY 09/24/20 [History] Apixaban [Eliquis] 5 mg PO BID #60 tab 09/28/20 [Rx] traZODone HCL 50 mg PO HS 01/11/21 [History] rOPINIRole HCL [Requip] 0.25 mg PO BID 02/08/21 [History] Omeprazole 20 mg PO BID 04/16/21 [History] Ondansetron Odt [Zofran ODT] 8 mg PO Q8HR PRN 04/16/21 [History] oxyCODONE HCL/ACETAMINOPHEN [Percocet 10-325 mg] 1 tab PO Q4H 04/16/21 [History] Dicyclomine [Bentyl] 10 mg PO Q6H PRN #30 cap 04/19/21 [Rx] Ipratropium-Albuterol Nebulize [Duoneb 0.5 mg-3 mg/3 ml Soln] 3 ml INHALATION RT-TID PRN 04/29/21 [History] Doxycycline [Vibramycin] 100 mg PO BID #6 cap 05/04/21 [Rx] predniSONE 10 mg PO DAILY #30 tab 05/04/21 [Rx] Tiotropium 2.5 Mcg/Puff [Spiriva Respimat 2.5 Mcg] 2 puff INHALATION RT-DAILY 05/30/21 [History] Torsemide [Demadex] 100 mg PO DAILY 05/30/21 [History] Follow up Appointment(s)/Referral(s): Shannon Vallejo NPC [REFERRING] - 1-2 days Discharge Disposition: HOME SELF-CARE
[2021-05-31 14:57] VITALS: BP 97/56; PULSE 91; RESP 18; TEMP 98
[2021-05-31] MEDS ORDERED: traZODone HCL 50 MG TAB PO SCH (21:00)
== END 2021-05-31 18:32 | disposition home or self-care (01) ==
LOC: EC 19:20 → 6NMEDSUR 23:11
PROVIDERS: ADMIT Internal Medicine; ATTEND Internal Medicine
DX: J44.1 Chronic obstructive pulmonary disease with (acute) exacerbation (principal); E87.6 Hypokalemia; I11.0 Hypertensive heart disease with heart failure; I50.32 Chronic diastolic (congestive) heart failure; R09.02 Hypoxemia; I25.2 Old myocardial infarction; E03.9 Hypothyroidism, unspecified; Z20.822 Contact with and (suspected) exposure to COVID-19; I48.91 Unspecified atrial fibrillation; E66.01 Morbid (severe) obesity due to excess calories; Z68.43 Body mass index [BMI] 50.0-59.9, adult; M19.90 Unspecified osteoarthritis, unspecified site; M51.27 Other intervertebral disc displacement, lumbosacral region; K22.70 Barrett's esophagus without dysplasia; K58.9 Irritable bowel syndrome, unspecified; R32 Unspecified urinary incontinence; L30.9 Dermatitis, unspecified; F41.9 Anxiety disorder, unspecified; F32.9 Major depressive disorder, single episode, unspecified; Z79.899 Other long term (current) drug therapy; Z79.890 Hormone replacement therapy; Z79.01 Long term (current) use of anticoagulants; Z88.9 Allergy status to unspecified drugs, medicaments and biological substances; Z91.041 Radiographic dye allergy status; Z88.6 Allergy status to analgesic agent; Z88.5 Allergy status to narcotic agent; Z87.442 Personal history of urinary calculi; Z90.710 Acquired absence of both cervix and uterus; Z96.653 Presence of artificial knee joint, bilateral; Z86.19 Personal history of other infectious and parasitic diseases; Z86.711 Personal history of pulmonary embolism; Z86.73 Personal history of transient ischemic attack (TIA), and cerebral infarction without residual deficits; Z87.19 Personal history of other diseases of the digestive system; Z90.49 Acquired absence of other specified parts of digestive tract; Z96.641 Presence of right artificial hip joint; Z87.01 Personal history of pneumonia (recurrent); Z87.11 Personal history of peptic ulcer disease; Z85.41 Personal history of malignant neoplasm of cervix uteri; Z82.49 Family history of ischemic heart disease and other diseases of the circulatory system; Z80.1 Family history of malignant neoplasm of trachea, bronchus and lung; Z80.52 Family history of malignant neoplasm of bladder; Z82.69 Family history of other diseases of the musculoskeletal system and connective tissue; Z86.16 Personal history of COVID-19
CPT/HCPCS: 99285; 96376 ×2; 96374; 96375; 36415; 94640; 94760; 93005; 83880; 80053; 80048; 83605; 83735; 84484; 85025; 85027; 85610; 85730; 87635; 71046; G0378 ×2; J2930 ×2; J2405; J1170 ×2

== ENCOUNTER 2021-07-10 10:16 | Observation (INO) | payer MEDICARE, OTHER ==
[2021-07-10] MEDS ORDERED: methylPREDNISolone SOD SUCCI 125 MG/2 ML VIAL IV STA ×2 (10:19→11:46)
[2021-07-10] MEDS ORDERED: IPRATROPIUM-ALBUTEROL 3 ML NEB INHALATION STA (10:19)
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
[2021-07-10] MEDS ORDERED: ONDANSETRON 4 MG/2 ML VIAL IVP STA (10:51)
[2021-07-10] MEDS ORDERED: HYDROmorphone 1 MG/ML 1 ML SYRINGE IVP STA ×2 (10:51→11:43)
[2021-07-10 10:55] LABS: Basophils % (A) 0 %; Eosinophils # (A) 0.2 k/uL (0-0.7); Eosinophils % (A) 2 %; HGB 11.2 gm/dL (11.4-16.0); Lymphocytes # (A) 1.1 k/uL (1.0-4.8); Lymphocytes % (A) 12 %; MCH 26.8 pg (25.0-35.0); MCV 83.7 fL (80.0-100.0); Mean Platelet Volume 7.4; Monocytes # (A) 0.4 k/uL (0-1.0); Monocytes % (A) 4 %; Neutrophils # (A) 7.9 k/uL (1.3-7.7); Neutrophils % (A) 81 %; Platelet Count 323 k/uL (150-450); RBC 4.18 m/uL (3.80-5.40); RDW 15.7 % (11.5-15.5); WBC 9.8 k/uL (3.8-10.6)
[2021-07-10 11:14] LABS: Albumin 3.5 g/dL (3.5-5.0); Calcium 9.1 mg/dL (8.4-10.2); Magnesium 1.6 mg/dL (1.6-2.3); Potassium 4.3 mmol/L (3.5-5.1); Total Bilirubin 0.7 mg/dL (0.2-1.3); Total Protein 6.2 g/dL (6.3-8.2)
[2021-07-10 11:18] LABS: Partial Thromboplastin Time 22.2 sec (22.0-30.0); Prothrombin Time 10.5 sec (9.0-12.0)
--- NOTE | 2021-07-10 11:18 | XR ---
EXAMINATION TYPE: XR chest 2V DATE OF EXAM: 07/10/2021 COMPARISON: 05/30/2021 INDICATION: Difficulty breathing, CHF TECHNIQUE: Frontal and lateral views of the chest are obtained. FINDINGS: The heart size is normal. The pulmonary vasculature is normal. There is a left lower lobe infiltrate well visualized on the lateral projection. Correlate for pneumo ezio.. IMPRESSION: 1. Posterior left lower lobe infiltrate. Correlate for pneumonia.
[2021-07-10] MEDS ORDERED: FAMOTIDINE 20 MG/2 ML VIAL IV STA (11:45)
[2021-07-10] MEDS ORDERED: diphenhydrAMINE 50 MG/ML 1 ML VIAL IVP STA (11:45)
--- NOTE | 2021-07-10 13:41 | CT ---
EXAMINATION TYPE: CT angio chest DATE OF EXAM: 07/10/2021 COMPARISON: HISTORY: Elev. Ddimer CT DLP: 944.8 mGycm Automated exposure control for dose reduction was used. CONTRAST: CTA scan of the thorax is performed with IV Contrast, patient injected with 80 mL of Isovue 370, pulm onary embolism protocol. MIP images are created and reviewed. 3D reconstructed images are created o n an independent workstation and reviewed. FINDINGS: Collateral subcutaneous vessels enhance over the left upper chest. There is artifact due to contrast material. LUNGS: The lungs are grossly clear, there is no concerning parenchymal mass or nodule identified. T here is no pleural effusion or pneumothorax seen. The tracheobronchial tree is patent. AORTA: No additional significant abnormality is seen. 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 MEDIASTINUM: There is less than satisfactory enhancement of the pulmonary artery and its branches, th ere is no CT evidence for pulmonary embolism. There are no greater than 1 cm hilar or mediastinal ly mph nodes. No pericardial effusion is seen. There are coronary artery calcifications. OTHER: Fat containing right adrenal mass is present and stable compared to prior exam. IMPRESSION: THERE ARE ARE SOME LIMITATIONS TO THE EXAM. NO EVIDENT FILLING DEFECT IDENTIFIED WITH CERTAINTY TO HERNANDEZ GGEST PULMONARY EMBOLUS
[2021-07-10] MEDS ORDERED: cefTRIAXone IN SWFI 1,000 MG/10 ML SYRINGE IVP STA (14:04)
[2021-07-10] MEDS ORDERED: ONDANSETRON ODT 8 MG TAB.RAPDIS PO PRN (15:30)
[2021-07-10] MEDS ORDERED: PNEUMONIA PROTOCOL UTILIZED 1 EACH MISC PO PRN (15:41)
[2021-07-10] MEDS ORDERED: IPRATROPIUM-ALBUTEROL 3 ML NEB INHALATION PRN (15:41)
[2021-07-10] MEDS ORDERED: AZITHROMYCIN 500 MG in SODIUM CHLORIDE 0.9% 250 ML IVPB STA (15:41)
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
[2021-07-10] MEDS ORDERED: AZITHROMYCIN 500 MG TAB PO SCH (16:00)
[2021-07-10] MEDS: oxyCODONE-APAP 10-325MG 1 EACH TAB PO PRN ×2 (16:07→21:37)
[2021-07-10] MEDS: INSULIN ASPART (NovoLOG) 100 UNIT/ML VIAL SQ SCH ×2 (18:14→21:42)
[2021-07-10] MEDS: PANTOPRAZOLE 40 MG TABLET PO SCH (18:16)
[2021-07-10] MEDS: methylPREDNISolone SOD SUCCI 125 MG/2 ML VIAL IV SCH (18:17)
[2021-07-10] MEDS: IPRATROPIUM-ALBUTEROL 3 ML NEB INHALATION SCH ×2 (19:20→20:01)
[2021-07-10] MEDS ORDERED: HYDROmorphone 0.5 MG/0.5 ML SYRINGE IVP STA (19:55)
[2021-07-10] MEDS: DOXYCYCLINE 100 MG CAP PO SCH (21:37)
[2021-07-10] MEDS: APIXABAN 5 MG TAB PO SCH (21:38)
[2021-07-10] MEDS: traZODone HCL 50 MG TAB PO PRN (21:38)
[2021-07-10] MEDS: guaiFENesin 600 MG TABLET.ER PO SCH (21:39)
[2021-07-10] MEDS: TORSEMIDE 20 MG TAB PO SCH (22:07)
[2021-07-11] MEDS ORDERED: MORPHINE SULFATE 4 MG/ML SYRINGE IVP STA ×2 (01:42→04:41)
[2021-07-11] MEDS: oxyCODONE-APAP 10-325MG 1 EACH TAB PO PRN ×3 (03:20→16:18)
[2021-07-11] MEDS: methylPREDNISolone SOD SUCCI 125 MG/2 ML VIAL IV SCH ×3 (03:31→14:17)
[2021-07-11] MEDS: IPRATROPIUM-ALBUTEROL 3 ML NEB INHALATION SCH ×4 (07:21→20:06)
[2021-07-11] MEDS: PREGABALIN 50 MG CAP PO SCH ×3 (08:41→19:20)
[2021-07-11] MEDS ORDERED: AZITHROMYCIN 500 MG TAB PO SCH (09:00)
[2021-07-11 09:52] LABS: Anisocytosis Slight; HCT 37.6 % (34.0-46.0); HGB 11.7 gm/dL (11.4-16.0); Hypochromasia Moderate; MCH 27.4 pg (25.0-35.0); MCHC 31.2 g/dL (31.0-37.0); MCV 87.7 fL (80.0-100.0); Mean Platelet Volume 6.8; Platelet Count 342 k/uL (150-450); RBC 4.29 m/uL (3.80-5.40); RDW 16.1 % (11.5-15.5); WBC 6.7 k/uL (3.8-10.6)
[2021-07-11] MEDS: LEVOTHYROXINE 75 MCG TAB PO SCH (10:07)
[2021-07-11] MEDS: DOXYCYCLINE 100 MG CAP PO SCH ×2 (10:10→19:41)
[2021-07-11] MEDS: guaiFENesin 600 MG TABLET.ER PO SCH ×2 (10:10→19:19)
[2021-07-11 10:17] LABS: African American GFR (CKD) >90 (>60 ml/min/1.73 sqM); Anion Gap 9 mmol/L; Blood Urea Nitrogen 13 mg/dL (7-17); Calcium 8.9 mg/dL (8.4-10.2); Carbon Dioxide 24 mmol/L (22-30); Chloride 105 mmol/L (98-107); Glucose 158 mg/dL (74-99); Magnesium 1.8 mg/dL (1.6-2.3); Non-African American GFR(CKD) 79 (>60 ml/min/1.73 sqM); Potassium 4.4 mmol/L (3.5-5.1); Sodium 138 mmol/L (137-145)
[2021-07-11] MEDS: INSULIN ASPART (NovoLOG) 100 UNIT/ML VIAL SQ SCH ×4 (10:17→19:42)
[2021-07-11] MEDS ORDERED: HYDROmorphone 0.5 MG/0.5 ML SYRINGE IVP STA (10:17)
[2021-07-11] MEDS: PANTOPRAZOLE 40 MG TABLET PO SCH ×2 (10:18→17:11)
[2021-07-11] MEDS: APIXABAN 5 MG TAB PO SCH ×2 (12:07→19:20)
[2021-07-11] MEDS: TORSEMIDE 20 MG TAB PO SCH ×2 (13:07→19:41)
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
[2021-07-11] MEDS: traZODone HCL 50 MG TAB PO PRN (19:32)
--- NOTE | 2021-07-11 19:52 | P.PN ---
Progress Note - Text Progress Note Date: 07/11/21 for the past two days , patient requesting additional pain medications all night, and does not feel her pain well controlled with the PO percocet. please consider discussing pain management plan with the patient pain meds adjusted to dilaudid 0.5 mg IVP Q4h PRN for tonight
[2021-07-11 19:58] VITALS: RESP 18
[2021-07-11] MEDS: HYDROmorphone 0.5 MG/0.5 ML SYRINGE IVP PRN (20:21)
[2021-07-11] MEDS ORDERED: MELATONIN 3 MG TABLET PO SCH (21:00)
[2021-07-11] MEDS ORDERED: MELATONIN 5 MG TABLET PO SCH (21:00)
[2021-07-12] MEDS: HYDROmorphone 0.5 MG/0.5 ML SYRINGE IVP PRN (02:18)
[2021-07-12] MEDS: oxyCODONE-APAP 10-325MG 1 EACH TAB PO PRN ×3 (03:29→15:30)
[2021-07-12] MEDS: LEVOTHYROXINE 75 MCG TAB PO SCH (05:24)
[2021-07-12] MEDS: INSULIN ASPART (NovoLOG) 100 UNIT/ML VIAL SQ SCH ×2 (07:32→12:25)
[2021-07-12] MEDS: IPRATROPIUM-ALBUTEROL 3 ML NEB INHALATION SCH ×3 (07:54→15:36)
[2021-07-12] MEDS: DOXYCYCLINE 100 MG CAP PO SCH (08:22)
[2021-07-12] MEDS: APIXABAN 5 MG TAB PO SCH (08:22)
[2021-07-12] MEDS: TORSEMIDE 20 MG TAB PO SCH (08:22)
[2021-07-12] MEDS: PREGABALIN 50 MG CAP PO SCH (08:22)
[2021-07-12] MEDS: PANTOPRAZOLE 40 MG TABLET PO SCH (08:22)
[2021-07-12] MEDS: guaiFENesin 600 MG TABLET.ER PO SCH (08:22)
[2021-07-12] MEDS ORDERED: predniSONE 20 MG TAB PO SCH (09:00)
[2021-07-12 09:20] LABS: HCT 36.3 % (37.2-46.3); HGB 10.7 g/dL (12.0-15.0); MCH 25.8 pg (27.0-32.0); MCHC 29.5 g/dL (32.0-37.0); MCV 87.7 fL (80.0-97.0); Mean Platelet Volume 9.5 fL (9.5-12.2); Platelet Count 278 X 10*3/uL (140-440); RBC 4.14 X 10*6/uL (4.10-5.20); RDW 17.2 % (11.5-14.5); WBC 8.39 X 10*3/uL (4.50-10.00)
[2021-07-12 10:36] LABS: African American GFR (CKD) 84.8 (60.0-200.0); BUN/Creat Ratio 23.38 Ratio (12.00-20.00); Blood Urea Nitrogen 18.7 mg/dL (9.0-27.0); Calcium 8.6 mg/dL (8.7-10.3); Magnesium 2.1 mg/dL (1.5-2.4); Non-African American GFR(CKD) 73.1 (60.0-200.0); Potassium 4.1 mmol/L (3.5-5.5)
--- NOTE | 2021-07-12 11:33 | P.DS ---
Providers Date of admission: 07/10/21 15:41 Attending physician: Zoë Jaffe DO Consults: 07/10/21 14:35 Consult Physician Routine Consulting Provider: Peter Howard Consult Reason/Comments: COPD exacerb hypoxia Do you want consulting provider notified?: Yes Primary care physician: Physician Nonstaff Hospital Course: Consultants Pulmonary medicine Disposition: Home with healthcare patient is enrolled in PACE program Reason for admission This is a 71-year-old female with multiple medical problems including COPD, systolic dysfunction, morbid obesity, severe debility, chronic back pain on rail setter elpidio opiate treatment, osteoarthritis, degenerative joint disease of the spine, hypothyroidism, atrial fibrillation. Patient came to emergency department for evolution of shortness of breath. Patient stated that for the few days prior to this admission she was feeling some chest congestion and shortness of breath subjectively feeling a wheezing and nonproductive cough. No fever or chills. No nausea no vomiting. Patient felt as if her legs were swollen more than usual. She is typically on Demadex. Emergency department her vital signs were stable, she remained on room air. Troponin negative. Computed tomography scan and on the chest did not demonstrate any pulmonary embolism no infiltrates no pneumonia. Patient was admitted for further management Hospital course Pt was admitted, stared on steroids, antibiotics, bronchodilators. Pt wanted to be only on her demdex. Pulmonary evaluated as well. Respiratory ibrahim she remained on room air, able to lie flat,. She was cleared for discharge with the prednisone and doxycycline. Continue bronchodilators and Pulmicort inhalers continue home medications. During this hospital stay patient was complaining of long-standing chronic back pain. Patient was recently evaluated for the back pain by orthopedic surgery and they felt that just conservative management is appropriate and they felt the patient is not a candidate for any surgical intervention. Patient was offered imaging however she refused as she felt that this is her usual pain without any changes. Per nursing, Patient was refusing breathing treatments, insulin, x- ray. On the day of discharge examination was performed.. Discussed with the patient, patient informing that she is in the process of weaning off her Percocet for her primary care physician is currently set up 4 times a day as needed. advised against escalation of her opiate pain medications and recommended patient to continue weaning off her Percocet. Patient expressed wish and felt ready to go home today and she was discharged home in stable condition 45 minutes spent in this discharge. Assessment: On the day of discharge patient was awake alert oriented. Distress not shortness of breath nor any distress or labored breathing Lungs are completely clear for auscultation Cardiovascular regular rhythm and rate Abdomen soft nontender nondistended Extremities she does have some pitting edema but this is stable and improving periphery warm well perfused no cyanosis Muscular skeletal: I examined patient back. Range of motion was preserved. No swelling or deformities. Patient's pain was not brought up by any palpation or maneuvers there is no radiation of the pain down her legs bowel or stool or urine incontinence Patient Condition at Discharge: Fair Plan - Discharge Summary Discharge Rx Participant: No New Discharge Prescriptions: New Doxycycline [Vibramycin] 100 mg PO BID 3 Days #6 cap predniSONE 30 mg PO DAILY 3 Days #9 tab Continue Levothyroxine Sodium [Synthroid] 150 mcg PO DAILY Pregabalin 50 mg PO BID Apixaban [Eliquis] 5 mg PO BID #60 tab Albuterol Sulfate [Ventolin HFA] 1 - 2 puff INHALATION RT-QID PRN PRN Reason: Shortness Of Breath traZODone HCL 50 mg PO HS Omeprazole 20 mg PO BID oxyCODONE HCL/ACETAMINOPHEN [Percocet 10-325 mg] 1 tab PO QID Ondansetron Odt [Zofran ODT] 8 mg PO Q8HR PRN PRN Reason: Nausea And Vomiting Tiotropium 2.5 Mcg/Puff [Spiriva Respimat 2.5 Mcg] 2 puff INHALATION RT-DAILY Torsemide [Demadex] 20 mg PO BID Discharge Medication List Levothyroxine Sodium [Synthroid] 150 mcg PO DAILY 06/18/18 [History] Pregabalin 50 mg PO BID 02/11/20 [History] Apixaban [Eliquis] 5 mg PO BID #60 tab 09/28/20 [Rx] traZODone HCL 50 mg PO HS 01/11/21 [History] Omeprazole 20 mg PO BID 04/16/21 [History] Ondansetron Odt [Zofran ODT] 8 mg PO Q8HR PRN 04/16/21 [History] oxyCODONE HCL/ACETAMINOPHEN [Percocet 10-325 mg] 1 tab PO QID 04/16/21 [History] Tiotropium 2.5 Mcg/Puff [Spiriva Respimat 2.5 Mcg] 2 puff INHALATION RT-DAILY 05/30/21 [History] Albuterol Sulfate [Ventolin HFA] 1 - 2 puff INHALATION RT-QID PRN 07/10/21 [History] Torsemide [Demadex] 20 mg PO BID 07/10/21 [History] Doxycycline [Vibramycin] 100 mg PO BID 3 Days #6 cap 07/12/21 [Rx] predniSONE 30 mg PO DAILY 3 Days #9 tab 07/12/21 [Rx] Follow up Appointment(s)/Referral(s): Nonstaff,Physician [Primary Care Provider] - 1-2 days Discharge Disposition: HOME WITH HOME HEALTH SERVICES
[2021-07-12 15:06] VITALS: BP 135/81; PULSE 91; TEMP 97.6
--- NOTE | 2021-07-13 10:51 | P.PN ---
Subjective Progress Note Date: 07/12/21 Principal diagnosis: Left lower lobe pneumonia Acute on chronic hypoxic respiratory failure Chronic diastolic heart failure Severe morbid obesity Proximal atrial fibrillation Hypothyroidism Chronic pain syndrome 07/12/2021, patient seen eval examined shortness of breath slightly better, cough congestion is improved, swelling is improved, patient is still get short of breath and limited activity and exertion, oxygen saturation noted to be 94%, hemodynamic status stable, patient is being planned for discharge later on today by primary service, chest x-ray even though showing left lower lobe infiltrate however computed tomography scan of the chest negative, patient can finish up her oral antibiotics and tapering steroids at home with deep breathing sense incentive spirometry and follow up in office Patient is a 71-year-old female morbidly obese with multiple medical problems has been hospitalized several months ago has been participating in outpatient pace program, for last for 5 days have been feeling sick not well, intermittent cough is present, has been having shortness of breath and wheezing cough is mostly dry and nonproductive, denies any fever or chills, patient started retaining fluid has gained about 15 pounds become more short of breath increased swelling of lower extremity decided to come into the hospital for further evaluation patient's COVID-19 test came back negative influenza test also negative CT NG in no acute pulmonary embolism seen, initial checks x-ray suggestive of left lower lobe pneumonia on specific questioning the is no loss of consciousness) no bowel or bladder related problem issues, patient has a Swenson's catheter which has been removed, patient has been treated with bronchodilator, have received a dose of IV antibiotics in the emergency department now on by mouth doxycycline, also on prednisone Objective - Vital Signs Vital signs: Vital Signs Temp 97.8 F 07/12/21 07:00 Pulse 76 07/12/21 07:00 Resp 18 07/12/21 07:00 BP 131/80 07/12/21 07:00 Pulse Ox 97 07/12/21 07:00 Intake & Output 07/11/21 07/12/21 07/12/21 18:59 06:59 18:59 Intake Total 222 Output Total 1200 1350 Balance 222 -1200 -1350 Weight 156.489 kg Intake: Oral 222 Output: Urine 1200 1350 Other: Voiding Method External Catheter External Catheter External Catheter - Exam - Constitutional General appearance: disheveled, morbidly obese - EENT Eyes: PERRLA Ears: bilateral: normal - Neck Neck: normal ROM Carotids: bilateral: upstroke normal Thyroid: bilateral: normal size - Respiratory Respiratory: bilateral: diminished - Cardiovascular Rhythm: regular Heart sounds: normal: S1, S2 - Gastrointestinal General gastrointestinal: soft - Integumentary Integumentary: normal turgor - Neurologic Neurologic: CNII-XII intact - Musculoskeletal Musculoskeletal: gait normal, generalized weakness, strength equal bilaterally - Psychiatric Psychiatric: A&O x's 3, appropriate affect, intact judgment & insight - Labs CBC & Chem 7: 07/12/21 05:59 07/12/21 05:59 Labs: Abnormal Lab Results - Last 24 Hours (Table) 07/12/21 07/12/21 Range/Units 05:59 05:59 Hgb 10.7 L (12.0-15.0) g/dL Hct 36.3 L (37.2-46.3) % MCH 25.8 L (27.0-32.0) pg MCHC 29.5 L (32.0-37.0) g/dL RDW 17.2 H (11.5-14.5) % BUN/Creatinine Ratio 23.38 H (12.00-20.00) Ratio Calcium 8.6 L (8.7-10.3) mg/dL Microbiology - Last 24 Hours (Table) 07/10/21 11:41 Blood Culture - Preliminary Blood No Growth after 24 hours 07/10/21 11:48 Blood Culture - Preliminary Blood No Growth after 24 hours Assessment and Plan Assessment: Left lower lobe pneumonia/atelectasis Acute on chronic hypoxic respiratory failure Chronic diastolic heart failure Severe morbid obesity Proximal atrial fibrillation Hypothyroidism Chronic pain syndrome Noncompliance Plan: Agree with bronchodilators and oral steroids and doxycycline gentle diuresis as tolerated increase activity as tolerated agree with discharge planning and follow-up in outpatient basis Time with Patient: Greater than 30
== END 2021-07-12 15:32 | disposition home health service (06) ==
LOC: EC 10:16 → 6NMEDSUR 15:41
PROVIDERS: ADMIT Internal Medicine; ATTEND Internal Medicine
DX: J96.21 Acute and chronic respiratory failure with hypoxia (principal); J44.0 Chronic obstructive pulmonary disease with (acute) lower respiratory infection; J44.1 Chronic obstructive pulmonary disease with (acute) exacerbation; J18.9 Pneumonia, unspecified organism; I50.22 Chronic systolic (congestive) heart failure; I50.33 Acute on chronic diastolic (congestive) heart failure; I48.0 Paroxysmal atrial fibrillation; J98.11 Atelectasis; Z53.29 Procedure and treatment not carried out because of patient's decision for other reasons; F41.9 Anxiety disorder, unspecified; F32.A Depression, unspecified; E66.01 Morbid (severe) obesity due to excess calories; Z68.44 Body mass index [BMI] 60.0-69.9, adult; M54.9 Dorsalgia, unspecified; M19.90 Unspecified osteoarthritis, unspecified site; E03.9 Hypothyroidism, unspecified; R53.81 Other malaise; T38.3X6A Underdosing of insulin and oral hypoglycemic [antidiabetic] drugs, initial encounter; T50.996A Underdosing of other drugs, medicaments and biological substances, initial encounter; Z91.128 Patient's intentional underdosing of medication regimen for other reason; G89.4 Chronic pain syndrome; I25.2 Old myocardial infarction; R32 Unspecified urinary incontinence; K58.9 Irritable bowel syndrome, unspecified; L30.9 Dermatitis, unspecified; R60.9 Edema, unspecified; R20.0 Anesthesia of skin; R20.2 Paresthesia of skin; I44.0 Atrioventricular block, first degree; M47.9 Spondylosis, unspecified; K22.70 Barrett's esophagus without dysplasia; Z20.822 Contact with and (suspected) exposure to COVID-19; Z71.89 Other specified counseling; Z87.891 Personal history of nicotine dependence; Z91.19 Patient's noncompliance with other medical treatment and regimen; Z86.73 Personal history of transient ischemic attack (TIA), and cerebral infarction without residual deficits; Z87.19 Personal history of other diseases of the digestive system; Z87.01 Personal history of pneumonia (recurrent); Z86.711 Personal history of pulmonary embolism; Z86.16 Personal history of COVID-19; Z87.440 Personal history of urinary (tract) infections; Z85.41 Personal history of malignant neoplasm of cervix uteri; Z85.42 Personal history of malignant neoplasm of other parts of uterus; Z87.11 Personal history of peptic ulcer disease; Z87.442 Personal history of urinary calculi; Z16.24 Resistance to multiple antibiotics; Z90.49 Acquired absence of other specified parts of digestive tract; Z90.710 Acquired absence of both cervix and uterus; Z96.653 Presence of artificial knee joint, bilateral; Z79.890 Hormone replacement therapy; Z79.899 Other long term (current) drug therapy; Z79.01 Long term (current) use of anticoagulants; Z88.8 Allergy status to other drugs, medicaments and biological substances; Z97.8 Presence of other specified devices; Z82.49 Family history of ischemic heart disease and other diseases of the circulatory system; Z82.3 Family history of stroke; Z80.1 Family history of malignant neoplasm of trachea, bronchus and lung; Z80.52 Family history of malignant neoplasm of bladder; Z82.69 Family history of other diseases of the musculoskeletal system and connective tissue
CPT/HCPCS: 96376 ×4; 96365; 96375 ×3; 99285; 36415; 94640 ×2; 93005; 85379; 84439; 83880; 80053; 80048 ×2; 84443; 83605; 83735 ×3; 84484; 85025; 85027 ×2; 85610; 85730; 87040; 84145; 87636; 71046; 71275; G0378 ×3; J2270; J2930 ×2; J2405; J0456; J0696; J1170 ×4; J7512; Q9967

== ENCOUNTER 2022-01-25 17:55 | Emergency (ER) | payer OTHER ==
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
[2022-01-25] MEDS ORDERED: IPRATROPIUM-ALBUTEROL 3 ML NEB INHALATION STA (18:17)
[2022-01-25] MEDS ORDERED: predniSONE 20 MG TAB PO STA (18:17)
[2022-01-25 19:21] LABS: Basophils % (A) 0 %; Eosinophils # (A) 0.3 k/uL (0-0.7); Eosinophils % (A) 3 %; HCT 36.3 % (34.0-46.0); HGB 11.7 gm/dL (11.4-16.0); Hypochromasia Slight; Lymphocytes # (A) 1.5 k/uL (1.0-4.8); Lymphocytes % (A) 19 %; MCHC 32.2 g/dL (31.0-37.0); MCV 83.9 fL (80.0-100.0); Monocytes # (A) 0.3 k/uL (0-1.0); Monocytes % (A) 5 %; Neutrophils # (A) 5.3 k/uL (1.3-7.7); Neutrophils % (A) 71 %; Platelet Count 300 k/uL (150-450); RBC 4.32 m/uL (3.80-5.40); WBC 7.5 k/uL (3.8-10.6)
[2022-01-25 19:26] LABS: INR 0.9 (<1.2); Partial Thromboplastin Time 23.5 sec (22.0-30.0)
[2022-01-25 19:28] LABS: ALT 15 U/L (4-34); AST 23 U/L (14-36); African American GFR (CKD) >90 (>60 ml/min/1.73 sqM); Albumin 3.7 g/dL (3.5-5.0); Alkaline Phosphatase 109 U/L (38-126); Anion Gap 4 mmol/L; Blood Urea Nitrogen 13 mg/dL (7-17); Calcium 8.9 mg/dL (8.4-10.2); Carbon Dioxide 29 mmol/L (22-30); Chloride 105 mmol/L (98-107); Glucose 132 mg/dL (74-99); Non-African American GFR(CKD) 85 (>60 ml/min/1.73 sqM); Potassium 4.2 mmol/L (3.5-5.1); Sodium 138 mmol/L (137-145); Total Bilirubin 0.3 mg/dL (0.2-1.3); Total Protein 6.3 g/dL (6.3-8.2)
[2022-01-25] MEDS ORDERED: oxyCODONE-APAP 7.5-325MG 1 EACH TAB PO STA (19:50)
[2022-01-25] MEDS ORDERED: ONDANSETRON ODT 4 MG TAB PO STA (19:50)
[2022-01-25] MEDS ORDERED: ONDANSETRON 4 MG/2 ML VIAL IVP STA (20:00)
[2022-01-25 20:14] VITALS: BP 134/74; PULSE 81; RESP 22; TEMP 98.1
--- NOTE | 2022-01-25 21:30 | XR ---
EXAMINATION TYPE: XR chest 1V portable DATE OF EXAM: 01/25/2022 COMPARISON: 07/10/2021 HISTORY: Chest pain TECHNIQUE: Single view FINDINGS: Heart is normal. Lungs are clear of consolidation. Thoracic aorta is atheromatous. Costophr enic angles are clear. There are chest leads. IMPRESSION: No active cardiopulmonary disease. There appears to be clearing of the left lower lobe pn eumonia compared to old exam
== END 2022-01-25 22:45 | disposition home or self-care (01) ==
LOC: EC 17:55
DX: J44.1 Chronic obstructive pulmonary disease with (acute) exacerbation (principal); J44.9 Chronic obstructive pulmonary disease, unspecified; E07.9 Disorder of thyroid, unspecified; Z82.49 Family history of ischemic heart disease and other diseases of the circulatory system; Z20.822 Contact with and (suspected) exposure to COVID-19; Z79.899 Other long term (current) drug therapy; Z86.73 Personal history of transient ischemic attack (TIA), and cerebral infarction without residual deficits; Z88.9 Allergy status to unspecified drugs, medicaments and biological substances; Z88.8 Allergy status to other drugs, medicaments and biological substances; Z88.5 Allergy status to narcotic agent; Z88.6 Allergy status to analgesic agent
CPT/HCPCS: 36415; 94640; 93005; 83880; 80053; 83605; 84484; 85025; 85610; 85730; 87636; 71045; 99285; 96374; J2405; J7512

== ENCOUNTER 2022-06-03 18:57 | Observation (INO) | payer OTHER ==
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
[2022-06-03 19:48] LABS: Basophils # (A) 0.1 k/uL (0-0.2); Basophils % (A) 1 %; Eosinophils # (A) 0.3 k/uL (0-0.7); Eosinophils % (A) 4 %; HGB 11.3 gm/dL (11.4-16.0); Lymphocytes # (A) 1.1 k/uL (1.0-4.8); Lymphocytes % (A) 13 %; MCH 27.2 pg (25.0-35.0); MCHC 33.2 g/dL (31.0-37.0); Mean Platelet Volume 7.4; Monocytes # (A) 0.3 k/uL (0-1.0); Monocytes % (A) 4 %; Neutrophils # (A) 6.2 k/uL (1.3-7.7); Neutrophils % (A) 76 %; Platelet Count 264 k/uL (150-450); RBC 4.15 m/uL (3.80-5.40); RDW 14.3 % (11.5-15.5); WBC 8.1 k/uL (3.8-10.6)
[2022-06-03] MEDS ORDERED: oxyCODONE-APAP 10-325MG 1 EACH TAB PO STA (20:08)
--- NOTE | 2022-06-03 20:13 | XR ---
EXAMINATION TYPE: XR chest 2V DATE OF EXAM: 06/03/2022 7:48 PM COMPARISON: Same day earlier. TECHNIQUE: XR chest 2V Frontal and lateral views of the chest. CLINICAL INDICATION:Female, 72 years old with history of dyspnea.; FINDINGS: Lungs/Pleura: There is no evidence of pleural effusion, focal consolidation, or pneumothorax. Pulmonary vascularity: Unremarkable. Heart/mediastinum: Cardiomediastinal silhouette is unremarkable. Musculoskeletal: No acute osseous pathology. IMPRESSION: No acute cardiopulmonary disease/process.
[2022-06-03 20:17] LABS: African American GFR (CKD) >90 (>60 ml/min/1.73 sqM); Anion Gap 11 mmol/L; Blood Urea Nitrogen 12 mg/dL (7-17); Calcium 9.2 mg/dL (8.4-10.2); Carbon Dioxide 29 mmol/L (22-30); Chloride 101 mmol/L (98-107); Glucose 138 mg/dL (74-99); Magnesium 1.7 mg/dL (1.6-2.3); Non-African American GFR(CKD) 81 (>60 ml/min/1.73 sqM); Potassium 3.4 mmol/L (3.5-5.1); Sodium 141 mmol/L (137-145)
[2022-06-03] MEDS ORDERED: IPRATROPIUM-ALBUTEROL 3 ML NEB INHALATION STA (21:15)
[2022-06-03] MEDS ORDERED: DEXAMETHASONE SOD PHOSPHATE 10 MG/ML 1 ML VIAL IV STA (21:15)
[2022-06-03] MEDS ORDERED: NALOXONE 0.4 MG/ML 1 ML VIAL IVP PRN (21:29)
[2022-06-03] MEDS ORDERED: NALOXONE 0.4 MG/ML 1 ML VIAL IV PRN (21:32)
[2022-06-04] MEDS ORDERED: MELATONIN 5 MG TABLET PO PRN (00:12)
[2022-06-04] MEDS: GABAPENTIN 300 MG CAP PO SCH ×4 (00:51→21:21)
[2022-06-04] MEDS: oxyCODONE-APAP 10-325MG 1 EACH TAB PO PRN ×2 (00:51→08:20)
[2022-06-04] MEDS ORDERED: ALPRAZolam 0.25 MG TAB PO STA (01:51)
[2022-06-04] MEDS: IPRATROPIUM-ALBUTEROL 3 ML NEB INHALATION SCH ×4 (07:53→19:52)
[2022-06-04] MEDS ORDERED: ALBUTEROL HFA INHALER INHALATION PRN (08:44)
[2022-06-04] MEDS ORDERED: DOXEPIN HCL 6 MG PO SCH (08:45)
[2022-06-04] MEDS ORDERED: TORSEMIDE 20 MG TAB PO SCH (09:00)
[2022-06-04] MEDS ORDERED: POTASSIUM CHLORIDE ER 20 MEQ TAB.ER PO STA (10:35)
[2022-06-04] MEDS: BUDESONIDE 0.5 MG/2 ML NEBU INHALATION SCH (11:29)
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
[2022-06-04] MEDS ORDERED: FUROSEMIDE 10 MG/ML 4 ML VIAL IV SCH (13:00)
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
[2022-06-04] MEDS: oxyCODONE-APAP 10-325MG 1 EACH TAB PO SCH ×3 (13:57→21:22)
[2022-06-04] MEDS: FUROSEMIDE 10 MG/ML 4 ML VIAL IV SCH ×2 (13:57→21:21)
--- NOTE | 2022-06-04 16:59 | CA ---
Transthoracic Echo Report Name: Renée Krishnan Age: 72 Gender: F : 1950 Exam Date: 06/04/2022 14:02 Exam Location: [facility] Ht (in): 62 Wt (lb): 350 Ordering Physician: Madsion Araujo Attending/Referring Phys: Java Application Developer Jeni Shipley, LEA Procedure CPT: Indications: LV function Cardiac Hx: Technical Quality: Very technically difficult study Contrast 1: Total Dose (mL): Contrast 2: Lumason Total Dose (mL): 4 MEASUREMENTS (Male / Female) Normal Values 2D ECHO LV Diastolic Diameter PLAX 4.5 cm 4.2 - 5.9 / 3.9 - 5.3 cm LV Systolic Diameter PLAX 4.5 cm IVS Diastolic Thickness 1.5 cm 0.6 - 1.0 / 0.6 - 0.9 cm LVPW Diastolic Thickness 1.5 cm 0.6 - 1.0 / 0.6 - 0.9 cm LV Relative Wall Thickness 0.7 RV Internal Dim ED PLAX 3.2 cm Aortic Root Diameter 2.4 cm LA Systolic Diameter LX 3.2 cm 3.0 - 4.0 / 2.7 - 3.8 cm FINDINGS Left Ventricle Normal left ventricular size, mild moderatel thickness, systolic function with no obvious regional wall motion abnormalities. Left ventricular ejection fraction is estimated at 50-55%. Right Ventricle The right ventricle is normal in size and function. Right Atrium The right atrium is normal in size. Left Atrium The left atrium is normal in size. Mitral Valve Structurally normal mitral valve. Aortic Valve Aortic valve not well visualized. Tricuspid Valve Tricuspid valve not well visualized. Pulmonic Valve Pulmonic valve not well visualized. Pericardium Normal pericardium without effusion. Aorta Normal aortic root dimension. CONCLUSIONS Normal LV systolic function Technically suboptimal study Previewed by: Dr. Pb Cameron MD (Electronically Signed) Final Date: 04 June 2022 16:58
[2022-06-04] MEDS ORDERED: SERTRALINE 50 MG TAB PO SCH (17:00)
[2022-06-04] MEDS: carvediloL 6.25 MG TAB PO SCH (18:25)
[2022-06-04] MEDS: SERTRALINE 25 MG TAB PO SCH (18:25)
[2022-06-04] MEDS ORDERED: MELATONIN 5 MG TABLET PO SCH (20:00)
[2022-06-04] MEDS ORDERED: MIRTAZAPINE 15 MG TAB PO SCH (21:00)
[2022-06-04] MEDS: APIXABAN 5 MG TAB PO SCH (21:21)
[2022-06-04] MEDS: DOXYCYCLINE 100 MG CAP PO SCH (21:36)
[2022-06-05] MEDS: carvediloL 6.25 MG TAB PO SCH ×2 (06:50→17:07)
[2022-06-05] MEDS: oxyCODONE-APAP 10-325MG 1 EACH TAB PO SCH ×3 (06:50→17:07)
[2022-06-05] MEDS ORDERED: PANTOPRAZOLE 40 MG TABLET PO SCH (07:30)
[2022-06-05 07:51] LABS: African American GFR (CKD) 69 (>60 ml/min/1.73 sqM); Anion Gap 10 mmol/L; Blood Urea Nitrogen 26 mg/dL (7-17); Calcium 8.8 mg/dL (8.4-10.2); Carbon Dioxide 31 mmol/L (22-30); Chloride 98 mmol/L (98-107); Glucose 108 mg/dL (74-99); Non-African American GFR(CKD) 60 (>60 ml/min/1.73 sqM); Potassium 4.1 mmol/L (3.5-5.1); Sodium 139 mmol/L (137-145)
[2022-06-05] MEDS: APIXABAN 5 MG TAB PO SCH (07:53)
[2022-06-05] MEDS: GABAPENTIN 300 MG CAP PO SCH ×2 (07:53→17:07)
[2022-06-05] MEDS: DOXYCYCLINE 100 MG CAP PO SCH (07:53)
[2022-06-05] MEDS ORDERED: LEVOTHYROXINE 75 MCG TAB PO SCH (08:00)
[2022-06-05] MEDS: BUDESONIDE 0.5 MG/2 ML NEBU INHALATION SCH (08:43)
[2022-06-05] MEDS: IPRATROPIUM-ALBUTEROL 3 ML NEB INHALATION SCH ×3 (08:43→16:00)
[2022-06-05] MEDS ORDERED: TORSEMIDE 20 MG TAB PO SCH (09:00)
--- NOTE | 2022-06-05 11:22 | P.PN ---
Subjective This is a pleasant 72-year-old female past medical history significant for paroxysmal atrial fibrillation on Eliquis, congestive heart failure, hyper tension, dyslipidemia and mild nonobstructive coronary artery disease with 30% stenosis in the mid LAD on cardiac cath in 2016, COPD, CVA. She does not follow with a senior staff accountant, last seen Dr. Cruz in 2012. We have been asked to see in consultation for shortness of breath. Patient presents emergency department with complaints of worsening shortness of breath for the past 23 days. She also endorses symptoms of orthopnea, 15lb weight gain in the past week and worsening bilateral lower extremity edema. She states she normally sleeps with 1 pillow, but has been needing 2-3 to breath comfortably. She was started on IV Lasix 06/05/2022 Patient seen and examined at bedside, her main complaint is lower back pain and states that she did not get her pain medication like she takes it at home. She endorses wheezing. She continues to have some shortness of breath. She has had 3.5 L urine output over the past 24 hours. Her lower extremity edema has improved. Lungs are clear on auscultation. She states that her weight this morning is back to her baseline. Labs, sodium 139, potassium 4.1, BUN 26, serum current 0.9 PHYSICAL EXAMINATION Vitals reviewed CONSTITUTIONAL: No apparent distress. HEENT: Head is normocephalic. Neck supple No JVD. CHEST EXAMINATION: Lungs are clear to auscultation. No chest wall tenderness is noted on palpation or with deep breathing. HEART EXAMINATION: Regular rate and rhythm. S1, S2 heard. Systolic murmur at base, No gallops or rub. ABDOMEN: Soft, nontender. Positive bowel sounds. EXTREMITIES: 2+ peripheral pulses, no lower extremity edema and no calf tenderness. NEUROLOGIC EXAMINATION: Patient is awake, alert and oriented x3. ASSESSMENT Acute on chronic heart failure with preserved ejection fraction Paroxysmal atrial fibrillation on Eliquis Hypertension Dyslipidemia Mild nonobstructive coronary artery disease with 30% stenosis in the mid LAD on cardiac cath in 2016 COPD History of CVA Obesity, BMI 66 PLAN Transition to PO Torsemide Continue home Eliquis and Coreg From a cardiology perspective, patient can be discharged when cleared by primary and other consultants We will follow the patient as needed. Please reach out with any further questions or concerns. Nurse practitioner note has been reviewed by physician. Signing provider agrees with the documented findings, assessment, and plan of care. Objective - Vital Signs Vital signs: Vital Signs Temp 98.9 F 06/05/22 02:00 Pulse 79 06/05/22 02:00 Resp 17 06/05/22 02:00 BP 131/81 06/05/22 06:49 Pulse Ox 93 L 06/05/22 02:00 FiO2 Intake & Output 06/04/22 06/05/22 06/05/22 18:59 06:59 18:59 Output Total 2450 1100 Balance -2450 -1100 Weight 162.5 kg 165.5 kg Output: Urine 2450 1100 Other: Voiding Method External Catheter Incontinent External Catheter - Labs CBC & Chem 7: 06/03/22 19:30 06/05/22 07:21 Labs: Abnormal Lab Results - Last 24 Hours (Table) 06/05/22 Range/Units 07:21 Carbon Dioxide 31 H (22-30) mmol/L BUN 26 H (7-17) mg/dL Glucose 108 H (74-99) mg/dL
[2022-06-05] MEDS: CYCLOBENZAPRINE 10 MG TAB PO PRN ×2 (11:23→17:09)
[2022-06-05 15:21] VITALS: BP 98/52; RESP 18; TEMP 97.5
[2022-06-05 16:10] VITALS: PULSE 67
[2022-06-05] MEDS: SERTRALINE 25 MG TAB PO SCH (17:07)
--- NOTE | 2022-06-05 17:58 | P.DS ---
Providers Date of admission: 06/03/22 21:30 Expected date of discharge: 06/05/22 Attending physician: French Mckeon Consults: 06/04/22 11:20 Consult Physician Routine Consulting Provider: Peter Howard Consult Reason/Comments: COPD Do you want consulting provider notified?: Yes 06/04/22 12:11 Consult Physician Routine Consulting Provider: Pb Cameron Consult Reason/Comments: Short of breath/EKG changes Do you want consulting provider notified?: Yes Primary care physician: Physician Nonstaff Hospital Course: Chief Complaint: Short of breath This is a pleasant 72-year-old patient, follows with Dr. French Mckeon.. Rather extensive medical history. Chronic stable medical conditions include atrial fibrillation, CAD with history of DE, primary osteoarthritis, hypothyroid, irritable bowel syndrome, urinary incontinence, peptic ulcer disease, hiatal hernia, hypothyroid generalized arthritis, peripheral neuropathy. Patient has a baseline does use a walker. Lives with her son 54 years of age. She also has home help. Patient presented increasing shortness of breath. Patient had lower extremity swelling. No cough. No fever no chills. Patient rather keen to go home as soon as possible as she has to take care of her handicapped son. Has an appointment tomorrow. No chest pain.. Able to ambulate but has self with little help. She does follow the pace program. 06/05/2022: Patient didn't relevant dialysis. Put out close to 4 L negative fluid balance. Edema is gone down. Seen by cardiology. Cleared for discharge. Care was discussed at length with the patient. Spoke to the block and case maker nurse. V chair van is being arranged. Discussion and discharge planning more than 35 minutes Past medical history to include: Atrial fibrillation, congestive heart failure from diastolic dysfunction, myocardial infarction, osteoarthritis, pulmonary embolism, hypothyroid, irritable bowel syndrome, urinary incontinence, uterine and cervical cancer, peptic ulcer is original ulcer, Scales's esophagus, hiatal hernia, chronic low back pain from herniated disc, kidney stones, peripheral neuropathy, arthritis, uses a walker Social history: Lives with her 54-year-old son. Also has home help. Does use a walker. Nonsmoker Family history: Stroke, hypertension, DE, bladder and lung cancer Physical examination: VITAL SIGNS: 97.5, 70, 18, 98/52, 95% room air GENERAL:, reclining in bed, awake, comfortable EYES: Pupils equal. Conjunctiva normal. HEENT: External appearance of nose and ears normal, oral cavity grossly normal. NECK: JVD not raised; masses not palpable. HEART: First and second heart sounds are normal; edema. LUNGS: Respiratory rate increased; decreased breath sounds ABDOMEN: Soft, nontender, liver spleen not palpable, no masses palpable. PSYCH: Alert and oriented x3; mood and affect anxious. MUSCULOSKELETAL: Evidence of OA in multiple joints LYMPHATICS: No lymph nodes palpable in neck and INVESTIGATIONS, reviewed in the clinical context: 06/05/2022: Potassium 4.1 creatinine 0.95 White count 8.1 hemoglobin 11.3 platelets 264 percussion 3.4 creatinine 0.74. Troponin I less than 0.012 Chest x-ray film personally reviewed by me-questionable venous prominence EKG tracing personally reviewed by me-sinus rhythm. ST segment depression in inferolateral leads. Assessment and plan: -Acute on Chronic congestive heart failure from diastolic dysfunction EF 55-60%. IV Lasix. Negative fluid balance about 4 L. Swished over to Demadex. -COPD in a nonsmoker DuoNeb - irritable bowel syndrome Bentyl 10 mg every 6 when necessary -Paroxysmal atrial fibrillation, currently in sinus rhythm Telemetry. On eliquis 5 mg twice a day -Hypothyroid Synthroid 150 g a day -Peripheral neuropathy Neurontin -Restless leg syndrome requip 0.25 mg twice a day -Chronic gait dysfunction, uses a walker to baseline -Chronic lower extremity nonpitting edema -Chronic insomnia from multiple medical problems Amiodarone -GERD, peptic ulcer disease Omeprazole -Chronic low back pain from herniated disc and osteoarthritis oxycodone 10 every 4 when necessary. -Depression Zoloft Disposition: Home Patient Condition at Discharge: Fair Plan - Discharge Summary New Discharge Prescriptions: New rOPINIRole HCL [Requip] 1 mg PO HS #30 tab Continue Levothyroxine Sodium [Synthroid] 150 mcg PO DAILY@0800 Apixaban [Eliquis] 5 mg PO BID@0800,2000 Gabapentin [Neurontin] 300 mg PO TID Albuterol Inhaler [Ventolin Hfa Inhaler] 2 puff INHALATION RT-Q6H PRN PRN Reason: Shortness Of Breath Torsemide [Demadex] 20 mg PO DIRECTED PRN PRN Reason: INCREASED EDEMA/WEIGHT GAIN Mirtazapine [Remeron] 15 mg PO HS Magnesium Gluconate [Magonate] 500 mg PO BID Gabapentin [Neurontin] 100 mg PO DIRECTED PRN PRN Reason: prednisone tremors, 5day cycle Doxycycline Hyclate 100 mg PO BID Clobetasol Propionate [Temovate 0.05% Cream] 1 applic TOPICAL BID PRN PRN Reason: x14 day cycle, rash carvediloL [Coreg] 6.25 mg PO BID Omeprazole 20 mg PO BID@799,1999 Torsemide [Demadex] 20 mg PO BID Melatonin [Melatonin Dissolving Tablet] 10 mg PO HS@1999 Sertraline [Zoloft] 75 mg PO DAILY oxyCODONE-APAP 10-325MG [Percocet 10-325 mg] 1 tab PO QID Budesonide [Pulmicort] 0.5 mg INHALATION RT-DAILY predniSONE 50 mg PO DIRECTED PRN PRN Reason: 5DAY CYCLE, COPD EXACERBATION Ipratropium-Albuterol Nebulize [Duoneb 0.5 mg-3 mg/3 ml Soln] 3 ml INHALATION RT-QID PRN PRN Reason: Shortness Of Breath Benadryl Extra Strength 2-0.1% Cream 1 applic TOPICAL Q6H PRN PRN Reason: itching/rash Discharge Medication List Levothyroxine Sodium [Synthroid] 150 mcg PO DAILY@0800 06/18/18 [History] Omeprazole 20 mg PO BID@08,199904/16/21 [History] Torsemide [Demadex] 20 mg PO BID 07/10/21 [History] Apixaban [Eliquis] 5 mg PO BID@799,199901/25/22 [History] Melatonin [Melatonin Dissolving Tablet] 10 mg PO HS@199901/25/22 [History] Sertraline [Zoloft] 75 mg PO DAILY 01/25/22 [History] Albuterol Inhaler [Ventolin Hfa Inhaler] 2 puff INHALATION RT-Q6H PRN 06/03/22 [History] Gabapentin [Neurontin] 300 mg PO TID 06/03/22 [History] oxyCODONE-APAP 10-325MG [Percocet 10-325 mg] 1 tab PO QID 06/03/22 [History] Benadryl Extra Strength 2-0.1% Cream 1 applic TOPICAL Q6H PRN 06/04/22 [History] Budesonide [Pulmicort] 0.5 mg INHALATION RT-DAILY 06/04/22 [History] Clobetasol Propionate [Temovate 0.05% Cream] 1 applic TOPICAL BID PRN 06/04/22 [History] Doxycycline Hyclate 100 mg PO BID 06/04/22 [History] Gabapentin [Neurontin] 100 mg PO DIRECTED PRN 06/04/22 [History] Ipratropium-Albuterol Nebulize [Duoneb 0.5 mg-3 mg/3 ml Soln] 3 ml INHALATION RT-QID PRN 06/04/22 [History] Magnesium Gluconate [Magonate] 500 mg PO BID 06/04/22 [History] Mirtazapine [Remeron] 15 mg PO HS 06/04/22 [History] Torsemide [Demadex] 20 mg PO DIRECTED PRN 06/04/22 [History] carvediloL [Coreg] 6.25 mg PO BID 06/04/22 [History] predniSONE 50 mg PO DIRECTED PRN 06/04/22 [History] rOPINIRole HCL [Requip] 1 mg PO HS #30 tab 06/05/22 [Rx] Follow up Appointment(s)/Referral(s): French Mckeon MD [STAFF PHYSICIAN] - 06/12/22 10:15 am
== END 2022-06-05 18:01 ==
LOC: EC 18:57 → 6NMEDSUR 21:30 → 4SSUR 22:00
PROVIDERS: ADMIT Family Medicine; ATTEND Family Medicine
DX: I50.33 Acute on chronic diastolic (congestive) heart failure (principal); J44.9 Chronic obstructive pulmonary disease, unspecified; I48.0 Paroxysmal atrial fibrillation; I25.10 Atherosclerotic heart disease of native coronary artery without angina pectoris; I25.2 Old myocardial infarction; M19.90 Unspecified osteoarthritis, unspecified site; E03.9 Hypothyroidism, unspecified; K58.9 Irritable bowel syndrome, unspecified; R32 Unspecified urinary incontinence; K27.9 Peptic ulcer, site unspecified, unspecified as acute or chronic, without hemorrhage or perforation; K44.9 Diaphragmatic hernia without obstruction or gangrene; G62.9 Polyneuropathy, unspecified; G25.81 Restless legs syndrome; K22.70 Barrett's esophagus without dysplasia; F51.04 Psychophysiologic insomnia; F41.9 Anxiety disorder, unspecified; M51.24 Other intervertebral disc displacement, thoracic region; F32.A Depression, unspecified; M79.89 Other specified soft tissue disorders; Z90.710 Acquired absence of both cervix and uterus; Z90.49 Acquired absence of other specified parts of digestive tract; Z96.653 Presence of artificial knee joint, bilateral; Z79.899 Other long term (current) drug therapy; Z79.890 Hormone replacement therapy; Z79.01 Long term (current) use of anticoagulants; Z79.51 Long term (current) use of inhaled steroids; Z88.8 Allergy status to other drugs, medicaments and biological substances; Z88.5 Allergy status to narcotic agent; E66.01 Morbid (severe) obesity due to excess calories; Z68.44 Body mass index [BMI] 60.0-69.9, adult; Z86.711 Personal history of pulmonary embolism; E78.5 Hyperlipidemia, unspecified; Z86.73 Personal history of transient ischemic attack (TIA), and cerebral infarction without residual deficits; Z87.19 Personal history of other diseases of the digestive system; Z87.01 Personal history of pneumonia (recurrent); Z16.24 Resistance to multiple antibiotics; Z85.41 Personal history of malignant neoplasm of cervix uteri; Z85.42 Personal history of malignant neoplasm of other parts of uterus; Z87.442 Personal history of urinary calculi; Z87.440 Personal history of urinary (tract) infections; Z82.49 Family history of ischemic heart disease and other diseases of the circulatory system; Z82.3 Family history of stroke; Z80.52 Family history of malignant neoplasm of bladder; Z80.1 Family history of malignant neoplasm of trachea, bronchus and lung
CPT/HCPCS: 96376; 96375; 96374; 99285; 36415; 94640 ×3; 94760; 93005; 93306; 83880; 80048 ×2; 83735; 84484; 85025; 71046; G0378 ×4; J1100; J1940; Q9950

== ENCOUNTER → 2022-06-03 | Outpatient (CLI) | payer OTHER ==
--- NOTE | 2022-06-03 14:18 | XR ---
EXAMINATION TYPE: XR chest 2V DATE OF EXAM: 06/03/2022 COMPARISON: 01/25/2022 INDICATION: Increased difficulty in breathing TECHNIQUE: Single frontal view of the chest is obtained. FINDINGS: The heart size is normal. The pulmonary vasculature is normal. No suspicious focal consolidation is evident. There is some limitation due to patient body habitus. IMPRESSION: 1. No acute pulmonary process.
== END | disposition home or self-care (01) ==
LOC: RADXRMAIN 13:29
PROVIDERS: ATTEND Nurse Practitioner Family
DX: I50.31 Acute diastolic (congestive) heart failure (principal); J44.1 Chronic obstructive pulmonary disease with (acute) exacerbation; R06.00 Dyspnea, unspecified
CPT/HCPCS: 71046

== ENCOUNTER 2022-06-18 10:33 | Observation (INO) | payer OTHER ==
[2022-06-18] MEDS ORDERED: oxyCODONE-APAP 10-325MG 1 EACH TAB PO ONE (10:49)
[2022-06-18] MEDS ORDERED: METOCLOPRAMIDE 5 MG/ML 2 ML VIAL IVP STA (10:49)
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
--- NOTE | 2022-06-18 12:48 | CT ---
EXAMINATION TYPE: CT brain wo con CT DLP: 1200.4 mGycm, Automated exposure control for dose reduction was used. DATE OF EXAM: 06/18/2022 12:37 PM COMPARISON: Most recent 02/11/2020. CLINICAL INDICATION:Female, 72 years old with history of Head trauma, Fall TECHNIQUE: Brain: Axial CT images of the brain were obtained with coronal and sagittal reformats created and rev iewed. Contrast used: None. Oral contrast used: None. FINDINGS: Brain: Extra-axial spaces: No abnormal extra-axial fluid collections. Similar peripherally calcified lesion near the sella turcica measuring up to 16 mm and right middle cranial fossa measuring 4 mm. Ventricular system: Dilatation in proportion to cerebral atrophy. Cerebral parenchyma: Cerebral atrophy. No acute intraparenchymal hemorrhage or mass effect. The gao -white junction is well differentiated. Scattered hypoattenuating areas are seen within the white mat ter. Cerebellum: Unremarkable. Mass effect: No evidence of midline shift. Intracranial vasculature: Atherosclerotic calcifications of the intracranial vessels. Soft tissues: Normal. Calvarium/osseous structures: No depressed skull fracture. Paranasal sinuses and mastoid air cells: Mild scattered paranasal sinus disease. Visualized orbits: Orbital contents are intact. IMPRESSION: 1. No acute intracranial process. 2. Nonspecific white matter changes, likely secondary to chronic small vessel ischemic disease. 3. Similar for calcified lesion in the sella turcica and right middle cranial fossa dating back at le ast to 2016.
--- NOTE | 2022-06-18 12:49 | XR ---
EXAMINATION TYPE: XR chest 2V DATE OF EXAM: 06/18/2022 12:30 PM COMPARISON: Chest radiographs from 06/03/2022 TECHNIQUE: XR chest 2V Frontal and lateral views of the chest. CLINICAL INDICATION:Female, 72 years old with history of JAMESON, cough; FINDINGS: Lungs/Pleura: Increased density seen on lateral view projecting over the spine. There is no evidence of pleural effusion, focal consolidation, or pneumothorax. Pulmonary vascularity: Unremarkable. Heart/mediastinum: Cardiomediastinal silhouette is unremarkable. Musculoskeletal: No acute osseous pathology. IMPRESSION: Increased density over the spine which is worse from 06/03/2022 on lateral view, correlate for pneumon ia.
--- NOTE | 2022-06-18 12:59 | CT ---
EXAMINATION TYPE: CT abdomen pelvis wo con, CT lumbar spine wo con CT DLP: 2794.4 mGycm, Automated exposure control for dose reduction was used. DATE OF EXAM: 06/18/2022 12:37 PM COMPARISON: CT abdomen pelvis most recent from abdomen pelvis 01/11/2021 CLINICAL INDICATION:Female, 72 years old with history of Abdominal pain, acute, nonlocalized; Fall, b ack pain TECHNIQUE: Axial CT of the abdomen and pelvis. Sagittal and coronal reformats were created on a [employer] workstation. Axial imaging of the lumbar spine was performed with sagittal and coronal reformats. Contrast used: None Oral contrast used: None FINDINGS: LOWER CHEST: Unremarkable ABDOMEN LIVER: Unremarkable GALLBLADDER AND BILE DUCTS: The gallbladder surgically absent.. PANCREAS: Unremarkable. SPLEEN: Unremarkable. ADRENAL GLANDS: Right adrenal fat-containing lesion measuring up to 2.9 cm consistent myolipoma. KIDNEYS AND URETERS: No evidence of hydronephrosis or renal calculus. The ureters are unremarkable. PELVIS BLADDER: Unremarkable REPRODUCTIVE: Unremarkable. ABDOMEN & PELVIS STOMACH AND BOWEL: No evidence of bowel obstruction. PERITONEUM: No evidence of pneumoperitoneum. Trace free fluid seen around the liver. VASCULATURE: No evidence of aortic aneurysm. MUSCULOSKELETAL: No acute osseous abnormalities, left hip arthroplasty. Hardware appears intact. Mult ilevel disc degeneration changes seen throughout the spine. There is scattered disc space phenomenon, osteophyte formation. Overall the alignment is intact. No evidence of fracture of the lumbar spine. Sacralization of L5 suspected on the right. There is hypoplastic 12 ribs bilaterally. LYMPH NODES: No gross evidence for lymphadenopathy. SOFT TISSUE/ABDOMINAL WALL: Fat-containing umbilical hernia. IMPRESSION: 1. No evidence for acute intra-abdominal process. 2. No evidence for acute fracture within the lumbar spine. 3. Right myelolipoma. 4. Multilevel disc degeneration changes throughout the spine. 5. No evidence for significant spinal canal or neural foraminal stenosis 6. Fat-and fluid containing umbilical hernia. 7. Trace amount of free fluid seen around the liver.
[2022-06-18 13:16] LABS: Basophils # (A) 0.1 k/uL (0-0.2); Basophils % (A) 1 %; Eosinophils # (A) 0.5 k/uL (0-0.7); Eosinophils % (A) 5 %; HCT 37.3 % (34.0-46.0); HGB 12.5 gm/dL (11.4-16.0); Hypochromasia Slight; Lymphocytes # (A) 1.3 k/uL (1.0-4.8); Lymphocytes % (A) 13 %; MCH 27.6 pg (25.0-35.0); MCHC 33.4 g/dL (31.0-37.0); MCV 82.5 fL (80.0-100.0); Mean Platelet Volume 7.3; Monocytes # (A) 0.4 k/uL (0-1.0); Monocytes % (A) 3 %; Neutrophils # (A) 7.9 k/uL (1.3-7.7); Neutrophils % (A) 78 %; Platelet Count 274 k/uL (150-450); RBC 4.53 m/uL (3.80-5.40); RDW 14.1 % (11.5-15.5); WBC 10.2 k/uL (3.8-10.6)
[2022-06-18 13:25] LABS: INR 1.1 (<1.2); Partial Thromboplastin Time 26.8 sec (22.0-30.0); Prothrombin Time 11.5 sec (9.0-12.0)
[2022-06-18] MEDS ORDERED: PNEUMONIA PROTOCOL UTILIZED 1 EACH MISC PO PRN (13:25)
[2022-06-18] MEDS ORDERED: MORPHINE SULFATE 4 MG/ML SYRINGE IVP STA (13:27)
[2022-06-18] MEDS ORDERED: IPRATROPIUM-ALBUTEROL 3 ML NEB INHALATION STA (13:28)
[2022-06-18] MEDS ORDERED: methylPREDNISolone SOD SUCCI 125 MG/2 ML VIAL IV STA (13:28)
[2022-06-18 13:29] LABS: ALT 16 U/L (4-34); AST 20 U/L (14-36); African American GFR (CKD) >90 (>60 ml/min/1.73 sqM); Albumin 3.9 g/dL (3.5-5.0); Alkaline Phosphatase 111 U/L (38-126); Amylase <30 U/L (30-110); Anion Gap 6 mmol/L; Blood Urea Nitrogen 7 mg/dL (7-17); Calcium 8.4 mg/dL (8.4-10.2); Carbon Dioxide 28 mmol/L (22-30); Chloride 106 mmol/L (98-107); Glucose 111 mg/dL (74-99); Lipase 60 U/L (23-300); Non-African American GFR(CKD) 84 (>60 ml/min/1.73 sqM); Potassium 3.9 mmol/L (3.5-5.1); Sodium 140 mmol/L (137-145); Total Bilirubin 0.7 mg/dL (0.2-1.3); Total Protein 6.3 g/dL (6.3-8.2)
[2022-06-18] MEDS ORDERED: FUROSEMIDE 10 MG/ML 4 ML VIAL IV STA (14:56)
[2022-06-18 16:57] LABS: VBG PH 7.37 (7.31-7.41)
[2022-06-18 17:18] LABS: Appearance,Urine Clear (Clear); Bacteria,Urine Rare /hpf; Bilirubin,Urine Negative (Negative); Blood,Urine Negative (Negative); Color,Urine Yellow; Glucose,Urine (UA) Negative (Negative); Ketones,Urine Trace (Negative); Leukocyte Esterase,Urine Small (Negative); Mucus,Urine Few /hpf; Nitrite,Urine Negative (Negative); PH, Urine 5.5 (5.0-8.0); Protein,Urine Negative (Negative); RBC,Urine 1 /hpf (0-5); Specific Gravity,Urine 1.014 (1.001-1.035); Squamous Epithelial Cell,Urine <1 /hpf (0-4); Urobilinogen,Urine <2.0 mg/dL (<2.0)
[2022-06-18] MEDS ORDERED: ONDANSETRON 4 MG/2 ML VIAL IVP PRN (17:45)
[2022-06-18] MEDS ORDERED: NALOXONE 0.4 MG/ML 1 ML VIAL IV PRN (17:45)
[2022-06-18] MEDS ORDERED: ACETAMINOPHEN TAB 325 MG TAB PO PRN (17:45)
[2022-06-18] MEDS: oxyCODONE-APAP 10-325MG 1 EACH TAB PO SCH ×2 (19:10→22:04)
[2022-06-18] MEDS: PIPERACILLIN-TAZOBACTAM 3.375 GM in SODIUM CHLORIDE 0.9% 100 ML IVPB SCH (19:18)
[2022-06-18] MEDS: carvediloL 6.25 MG TAB PO SCH (22:03)
[2022-06-18] MEDS: APIXABAN 5 MG TAB PO SCH (22:03)
[2022-06-18] MEDS: TORSEMIDE 20 MG TAB PO SCH (22:03)
[2022-06-18] MEDS: GABAPENTIN 300 MG CAP PO SCH (22:03)
[2022-06-18] MEDS: MAGNESIUM OXIDE 400 MG TAB PO SCH (22:03)
[2022-06-18] MEDS: MELATONIN 5 MG TABLET PO SCH (22:03)
[2022-06-18] MEDS: MIRTAZAPINE 15 MG TAB PO SCH (22:04)
[2022-06-19] MEDS: PIPERACILLIN-TAZOBACTAM 3.375 GM in SODIUM CHLORIDE 0.9% 100 ML IVPB SCH ×4 (00:40→23:15)
[2022-06-19] MEDS: oxyCODONE-APAP 10-325MG 1 EACH TAB PO SCH ×4 (03:49→22:10)
[2022-06-19] MEDS: PANTOPRAZOLE 40 MG TABLET PO SCH (06:17)
[2022-06-19] MEDS: MAGNESIUM OXIDE 400 MG TAB PO SCH ×2 (08:31→22:08)
[2022-06-19] MEDS: SERTRALINE 50 MG TAB PO SCH (08:31)
[2022-06-19] MEDS: LEVOTHYROXINE 75 MCG TAB PO SCH (08:31)
[2022-06-19] MEDS: TORSEMIDE 20 MG TAB PO SCH ×2 (08:31→22:09)
[2022-06-19] MEDS: GABAPENTIN 300 MG CAP PO SCH ×3 (08:32→22:10)
[2022-06-19] MEDS: APIXABAN 5 MG TAB PO SCH ×2 (08:32→22:07)
[2022-06-19] MEDS: carvediloL 6.25 MG TAB PO SCH ×2 (08:32→22:08)
[2022-06-19] MEDS: AZITHROMYCIN 500 MG in SODIUM CHLORIDE 0.9% 250 ML IVPB SCH (10:18)
[2022-06-19] MEDS: BUDESONIDE 0.5 MG/2 ML NEBU INHALATION SCH (11:03)
[2022-06-19] MEDS: IPRATROPIUM-ALBUTEROL 3 ML NEB INHALATION PRN (15:26)
[2022-06-19] MEDS: CHOLESTYRAMINE (WITH SUGAR) 4 GM PACKET PO PRN (16:21)
--- NOTE | 2022-06-19 17:54 | XR ---
EXAMINATION TYPE: XR chest 1V DATE OF EXAM: 06/19/2022 CLINICAL HISTORY: Difficulty breathing and pneumonia progress study. TECHNIQUE: Single AP portable upright view of the chest is obtained. COMPARISON: Chest x-ray from one day earlier and older studies. FINDINGS: Suboptimal due to large body habitus. Stable mild cardiomegaly. Chronic parenchymal change s bilaterally without suspicious new focal airspace opacity, pleural effusion, or pneumothorax seen. Osseous structures are intact. IMPRESSION: Chronic changes and mild cardiomegaly without suspicious acute pulmonary process.
[2022-06-19] MEDS ORDERED: CHOLESTYRAMINE (WITH SUGAR) 4 GM PACKET PO SCH (18:00)
--- NOTE | 2022-06-19 18:54 | US ---
EXAMINATION TYPE: US axilla LT DATE OF EXAM: 06/19/2022 COMPARISON: CT chest earlier today CLINICAL HISTORY: lump palpated. Lump left axilla. Scanned area of concern no abnormalities seen. Targeted ultrasound left axilla shows no worrisome solid cystic mass or abnormal fluid collection. Fi ndings correlate with same day CT where axilla is partially imaged. IMPRESSION: As above.
--- NOTE | 2022-06-19 20:13 | CT ---
EXAMINATION TYPE: CT chest wo con DATE OF EXAM: 06/19/2022 COMPARISON: Prior chest CT July 10, 2021. Same day chest x-ray. HISTORY: dyspnea CT DLP: 585.90 mGycm. Automated Exposure Control for Dose Reduction was Utilized. TECHNIQUE: CT scan of the thorax is performed without IV contrast. FINDINGS: LUNGS: Focal posterior left basilar atelectasis and/or limited consolidation. Right lung is clear. N o pleural effusion or pneumothorax seen bilaterally. No suspicious pulmonary nodules or masses. The tracheobronchial tree is patent. MEDIASTINUM: Lack of IV contrast is noted to limit evaluation for mediastinal and especially hilar ad enopathy. There are no definitive greater than 1 cm mediastinal lymph nodes. No cardiomegaly or per icardial effusion is seen. Dense calcification at level of the mitral valve. Coronary artery calcific ation is present. OTHER: Dextroconvex scoliosis with multilevel spurring in the spine. IMPRESSION: Posterior left basal atelectasis and/or Limited consolidation extending from left hilar r egion. Right lung is clear.
[2022-06-19] MEDS: MIRTAZAPINE 15 MG TAB PO SCH (22:08)
[2022-06-19] MEDS: MELATONIN 5 MG TABLET PO SCH (22:08)
[2022-06-19] MEDS: SODIUM CHLORIDE 0.9% 1,000 ML IV SCH (23:15)
[2022-06-20] MEDS: oxyCODONE-APAP 10-325MG 1 EACH TAB PO SCH ×4 (04:09→21:14)
[2022-06-20] MEDS: SODIUM CHLORIDE 0.9% 1,000 ML IV SCH ×3 (05:03→19:38)
--- NOTE | 2022-06-20 05:29 | HP ---
HISTORY AND PHYSICAL HISTORY OF PRESENT ILLNESS: A 72-year-old white female who came to the hospital after she fell at home in the shower, slipped in the tub, hit her head, was unable to get up, was disoriented. She said bubbles came out of her mouth on Eliquis. She had large hematoma on the back of her head. This was a week ago. Over the last week, she has been getting more weak, nauseous, unable to eat, edentulous, pain in her abdomen, history of IBS. She was discharged from prior admission on June 05. Her legs are swollen again in bilateral lower extremities making it difficult to walk, difficulty breathing, productive cough. She is admitted for COPD, CHF, possible pneumonia. HOME MEDICINES: See list. REVIEW OF SYSTEMS: A 14-point review of systems otherwise negative. PAST MEDICAL HISTORY: Atrial fibrillation, angina, heart failure, COPD, CVA, TIA, GI bleed, osteoarthritis, pneumonia, pulmonary embolus, colitis, urinary incontinence. FAMILY HISTORY: Father with myocardial infarction, mother with same, myocardial infarction. PHYSICAL EXAMINATION: VITAL SIGNS: Stable. GENERAL: She is obese white female. BMI is over 40. HEMATOLOGIC: 2 to 3+ edema, anasarca type changes in the legs. PSYCH: She appears anxious, nervous, giving appropriate answers. NEUROLOGIC: Cranial nerves intact. GI: Soft, nontender. No mass or organomegaly. MUSCULOSKELETAL: Chest palpation paracervical spinal muscles, mild hematoma on the posterior scalp. CAT scan of the lumbar spine showed possible pneumonia, will admit her for pneumonia. IV antibiotics were ordered. CAT scan was negative for fracture and intracranial bleed. She has umbilical hernia, mild fluid around the liver, degenerative disk disease, pneumonia protocol, CHF treatment, Lasix, Zosyn, azithromycin, BNP is higher than last time she was here. Possible IV Lasix will be given. PROGNOSIS: Guarded. MMODL / IJN: [id number] /
[2022-06-20] MEDS: PANTOPRAZOLE 40 MG TABLET PO SCH (06:48)
[2022-06-20] MEDS: AZITHROMYCIN 500 MG in SODIUM CHLORIDE 0.9% 250 ML IVPB SCH (08:44)
[2022-06-20] MEDS: PIPERACILLIN-TAZOBACTAM 3.375 GM in SODIUM CHLORIDE 0.9% 100 ML IVPB SCH ×3 (08:44→23:24)
[2022-06-20] MEDS: TORSEMIDE 20 MG TAB PO SCH ×2 (08:45→21:14)
[2022-06-20] MEDS: LEVOTHYROXINE 75 MCG TAB PO SCH (08:45)
[2022-06-20] MEDS: APIXABAN 5 MG TAB PO SCH ×2 (08:45→21:12)
[2022-06-20] MEDS: SERTRALINE 50 MG TAB PO SCH (08:45)
[2022-06-20] MEDS: CHOLESTYRAMINE (WITH SUGAR) 4 GM PACKET PO PRN (08:45)
[2022-06-20] MEDS: GABAPENTIN 300 MG CAP PO SCH ×3 (08:45→21:14)
[2022-06-20] MEDS: carvediloL 6.25 MG TAB PO SCH ×2 (08:45→21:12)
[2022-06-20] MEDS: MAGNESIUM OXIDE 400 MG TAB PO SCH ×2 (08:46→21:13)
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
[2022-06-20 10:40] LABS: Basophils # (A) 0.05 X 10*3/uL (0.00-0.10); Basophils % (A) 0.6 %; Eosinophils # (A) 0.25 X 10*3/uL (0.04-0.35); HCT 35.1 % (37.2-46.3); HGB 10.8 g/dL (12.0-15.0); Immature Grans, Automated 0.6 %; Lymphocytes # (A) 1.76 X 10*3/uL (0.90-5.00); Lymphocytes % (A) 21.4 %; MCH 26.5 pg (27.0-32.0); MCHC 30.8 g/dL (32.0-37.0); Mean Platelet Volume 9.8 fL (9.5-12.2); Monocytes # (A) 0.55 X 10*3/uL (0.20-1.00); Monocytes % (A) 6.7 %; NRBC Per 100 WBC 0 /100 WBCS (0.0-0.0); Neutrophils # (A) 5.55 X 10*3/uL (1.80-7.70); Neutrophils % (A) 67.7 %; Platelet Count 266 X 10*3/uL (140-440); RBC 4.08 X 10*6/uL (4.10-5.20); RDW 15.3 % (11.5-14.5); WBC 8.21 X 10*3/uL (4.50-10.00)
[2022-06-20 10:45] LABS: African American GFR (CKD) 51.6 (60.0-200.0); Albumin 3.7 g/dL (3.8-4.9); Albumin/Globulin Ratio 1.76 (1.60-3.17); Anion Gap 12.2 mmol/L (10.00-18.00); BUN/Creat Ratio 18.83 Ratio (12.00-20.00); Blood Urea Nitrogen 22.6 mg/dL (9.0-27.0); Calcium 8.3 mg/dL (8.7-10.3); Carbon Dioxide 27.8 mmol/L (20.0-27.5); Globulin 2.1 g/dL (1.6-3.3); Non-African American GFR(CKD) 44.5 (60.0-200.0); Total Bilirubin 0.3 mg/dL (0.30-1.20); Total Protein 5.8 g/dL (6.2-8.2)
[2022-06-20] MEDS: BUDESONIDE 0.5 MG/2 ML NEBU INHALATION SCH (11:44)
[2022-06-20] MEDS ORDERED: KETOROLAC 15 MG/ML 1 ML VIAL IVP PRN (12:46)
[2022-06-20] MEDS: DAPAGLIFLOZIN PROPANEDIOL 10 MG TABLET PO SCH (15:06)
[2022-06-20] MEDS ORDERED: LOPERAMIDE 2 MG CAP PO PRN (17:36)
[2022-06-20] MEDS: MELATONIN 5 MG TABLET PO SCH (21:12)
[2022-06-20] MEDS: MIRTAZAPINE 15 MG TAB PO SCH (21:13)
[2022-06-21] MEDS: SODIUM CHLORIDE 0.9% 1,000 ML IV SCH ×2 (01:26→03:39)
--- NOTE | 2022-06-21 01:32 | PN ---
PROGRESS NOTE SUBJECTIVE: A 72-year-old white female. She had a fall at home. She has multiple contusions. Cardiology saw her. She had a chest CT scan for possible pneumonia. She has posterior consolidation of the left basilar lung for possible pneumonia. ASSESSMENT: Community-acquired pneumonia, fall, contusions, possible congestive heart failure. Prognosis extremely guarded. Cardiology consult for chest pain. Await further recommendations. Treat for pneumonia. Prognosis is guarded. PT, OT to ambulate. MMODL / IJN: [id number] /
[2022-06-21] MEDS: oxyCODONE-APAP 10-325MG 1 EACH TAB PO SCH ×2 (03:38→10:45)
[2022-06-21 04:24] VITALS: RESP 18
[2022-06-21] MEDS: PANTOPRAZOLE 40 MG TABLET PO SCH (06:04)
[2022-06-21] MEDS ORDERED: IPRATROPIUM-ALBUTEROL 3 ML NEB INHALATION PRN (07:23)
[2022-06-21] MEDS: DAPAGLIFLOZIN PROPANEDIOL 10 MG TABLET PO SCH (08:10)
[2022-06-21] MEDS: TORSEMIDE 20 MG TAB PO SCH (08:11)
[2022-06-21] MEDS: carvediloL 6.25 MG TAB PO SCH (08:11)
[2022-06-21] MEDS: APIXABAN 5 MG TAB PO SCH (08:11)
[2022-06-21] MEDS: GABAPENTIN 300 MG CAP PO SCH (08:11)
[2022-06-21] MEDS: MAGNESIUM OXIDE 400 MG TAB PO SCH (08:11)
[2022-06-21] MEDS: SERTRALINE 50 MG TAB PO SCH (08:12)
[2022-06-21] MEDS: LEVOTHYROXINE 75 MCG TAB PO SCH (08:12)
[2022-06-21] MEDS: IPRATROPIUM-ALBUTEROL 3 ML NEB INHALATION PRN ×2 (08:23→11:46)
[2022-06-21] MEDS: BUDESONIDE 0.5 MG/2 ML NEBU INHALATION SCH (08:23)
[2022-06-21 08:48] VITALS: BP 121/73; TEMP 98.4
[2022-06-21] MEDS ORDERED: CEFDINIR 300 MG CAP PO SCH (09:00)
[2022-06-21 11:54] VITALS: PULSE 72
--- NOTE | 2022-06-21 12:34 | PN ---
PROGRESS NOTE SUBJECTIVE: Renée is a 72-year-old lady, who is admitted to hospital with acute exacerbation of chronic diastolic heart failure. Her symptoms seem mainly due to underlying pneumonia with a component of heart failure. This morning, she is feeling better. Denies any chest pain or difficulty in breathing. Continues to have mild bilateral leg edema. She has a normal LV systolic function with an ejection fraction of 50% to 55%. CT scan shows atelectatic changes. OBJECTIVE: GENERAL: Today, she is comfortable at rest. VITAL SIGNS: Stable. CHEST: Reveals good air entry bilaterally. HEART: Reveals first and second heart sounds. No gallop. No murmur. ABDOMEN: Soft. EXTREMITIES: Reveals mild bilateral edema. LABORATORY DATA: Show that the hemoglobin is 10.8, platelet count is 266. Potassium is 4, creatinine is 1.2. MEDICATIONS: The patient is currently on: 1. Coreg. 2. Eliquis. 3. Demadex 20 b.i.d. ASSESSMENT: Acute exacerbation of chronic diastolic heart failure. PLAN: The patient is doing much better. Continue current medications. Followup with Cardiology on discharge. MMODL / IJN: [id number] /
[2022-06-21 15:17] LABS: African American GFR (CKD) 64.4 (60.0-200.0); Albumin 3.6 g/dL (3.8-4.9); Albumin/Globulin Ratio 1.91 (1.60-3.17); Anion Gap 9.9 mmol/L (10.00-18.00); BUN/Creat Ratio 19.04 Ratio (12.00-20.00); Carbon Dioxide 28.2 mmol/L (20.0-27.5); Globulin 1.9 g/dL (1.6-3.3); Non-African American GFR(CKD) 55.6 (60.0-200.0); Potassium 4.4 mmol/L (3.5-5.5); Total Bilirubin 0.3 mg/dL (0.30-1.20); Total Protein 5.6 g/dL (6.2-8.2)
== END 2022-06-21 12:23 | disposition home or self-care (01) ==
LOC: EC 10:33 → 6NMEDSUR 17:45
PROVIDERS: ADMIT Family Medicine; ATTEND Family Medicine
DX: J18.9 Pneumonia, unspecified organism (principal); J44.0 Chronic obstructive pulmonary disease with (acute) lower respiratory infection; J44.1 Chronic obstructive pulmonary disease with (acute) exacerbation; I11.0 Hypertensive heart disease with heart failure; I50.33 Acute on chronic diastolic (congestive) heart failure; S00.03XA Contusion of scalp, initial encounter; K58.9 Irritable bowel syndrome, unspecified; I48.91 Unspecified atrial fibrillation; I25.2 Old myocardial infarction; K22.70 Barrett's esophagus without dysplasia; E03.9 Hypothyroidism, unspecified; M51.25 Other intervertebral disc displacement, thoracolumbar region; M51.27 Other intervertebral disc displacement, lumbosacral region; F32.A Depression, unspecified; F41.9 Anxiety disorder, unspecified; E66.01 Morbid (severe) obesity due to excess calories; G31.9 Degenerative disease of nervous system, unspecified; D17.79 Benign lipomatous neoplasm of other sites; M25.78 Osteophyte, vertebrae; K42.9 Umbilical hernia without obstruction or gangrene; R59.0 Localized enlarged lymph nodes; J98.11 Atelectasis; I25.10 Atherosclerotic heart disease of native coronary artery without angina pectoris; M41.80 Other forms of scoliosis, site unspecified; Z86.73 Personal history of transient ischemic attack (TIA), and cerebral infarction without residual deficits; Z79.01 Long term (current) use of anticoagulants; Z79.890 Hormone replacement therapy; Z79.899 Other long term (current) drug therapy; Z79.51 Long term (current) use of inhaled steroids; Z88.8 Allergy status to other drugs, medicaments and biological substances; Z86.711 Personal history of pulmonary embolism; Z85.41 Personal history of malignant neoplasm of cervix uteri; Z87.19 Personal history of other diseases of the digestive system; Z87.442 Personal history of urinary calculi; Z90.49 Acquired absence of other specified parts of digestive tract; Z90.710 Acquired absence of both cervix and uterus; Z96.653 Presence of artificial knee joint, bilateral; Z82.49 Family history of ischemic heart disease and other diseases of the circulatory system; Z68.44 Body mass index [BMI] 60.0-69.9, adult; Z82.3 Family history of stroke; Z80.1 Family history of malignant neoplasm of trachea, bronchus and lung; Z20.822 Contact with and (suspected) exposure to COVID-19; Z96.642 Presence of left artificial hip joint; W18.2XXA Fall in (into) shower or empty bathtub, initial encounter; Y93.E1 Activity, personal bathing and showering; Y92.002 Bathroom of unspecified non-institutional (private) residence as the place of occurrence of the external cause
CPT/HCPCS: 96366 ×4; 96365; 96375; 99285; 36415; 94640 ×6; 93005; 36410; 76937; 83880; 80053 ×3; 82150; 82803; 83605; 83690; 84484; 85025 ×2; 85610; 85730; 86140; 81001; 87040; 87045; 87046; 87502; 84145; 87635; 71045; 71046; 76882; 72131; 70450; 71250; 74176; G0378 ×4; J2543 ×3; J2270; J1940; J2765; J2930; J0456 ×2

== ENCOUNTER 2022-07-05 10:31 | Observation (INO) | payer OTHER ==
[2022-07-05] MEDS ORDERED: ALBUTEROL NEBULIZED 2.5 MG/3 ML INHALATION STA (10:44)
[2022-07-05] MEDS ORDERED: IPRATROPIUM 0.5 MG/2.5 ML NEBU INHALATION STA (10:44)
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
--- NOTE | 2022-07-05 11:09 | XR ---
EXAMINATION TYPE: XR chest 2V DATE OF EXAM: 07/05/2022 10:59 AM COMPARISON: Chest radiographs from 06/19/2022 TECHNIQUE: XR chest 2V Frontal and lateral views of the chest. CLINICAL INDICATION:Female, 72 years old with history of difficulty breathing; FINDINGS: Lungs/Pleura: Scattered subtle reticular and hazy opacities. No evidence of pneumothorax, focal conso lidation or pleural effusion. Pulmonary vascularity: Unremarkable. Heart/mediastinum: Cardiomediastinal silhouette is unremarkable. Musculoskeletal: No acute osseous pathology. IMPRESSION: Subtle scattered opacities which may represent an atypical pneumonia. Correlate for covid 19.
[2022-07-05 11:10] LABS: Basophils # (A) 0.1 k/uL (0-0.2); Basophils % (A) 1 %; Eosinophils # (A) 0.3 k/uL (0-0.7); Eosinophils % (A) 5 %; HCT 36.8 % (34.0-46.0); HGB 12.1 gm/dL (11.4-16.0); Hypochromasia Slight; Lymphocytes # (A) 1.2 k/uL (1.0-4.8); Lymphocytes % (A) 19 %; MCH 27.6 pg (25.0-35.0); MCHC 32.8 g/dL (31.0-37.0); Mean Platelet Volume 7.4; Monocytes # (A) 0.4 k/uL (0-1.0); Monocytes % (A) 6 %; Neutrophils # (A) 4.2 k/uL (1.3-7.7); Neutrophils % (A) 67 %; Platelet Count 239 k/uL (150-450); RBC 4.38 m/uL (3.80-5.40); RDW 14.4 % (11.5-15.5); WBC 6.3 k/uL (3.8-10.6)
[2022-07-05 11:20] LABS: ALT 18 U/L (4-34); AST 21 U/L (14-36); African American GFR (CKD) >90 (>60 ml/min/1.73 sqM); Alkaline Phosphatase 109 U/L (38-126); Anion Gap 6 mmol/L; Blood Urea Nitrogen 9 mg/dL (7-17); Calcium 8.6 mg/dL (8.4-10.2); Carbon Dioxide 29 mmol/L (22-30); Chloride 107 mmol/L (98-107); Glucose 119 mg/dL (74-99); Magnesium 1.8 mg/dL (1.6-2.3); Non-African American GFR(CKD) 79 (>60 ml/min/1.73 sqM); Potassium 3.8 mmol/L (3.5-5.1); Sodium 142 mmol/L (137-145); Total Bilirubin 0.6 mg/dL (0.2-1.3); Total Protein 6.6 g/dL (6.3-8.2)
[2022-07-05 11:29] LABS: Partial Thromboplastin Time 26.3 sec (22.0-30.0); Prothrombin Time 10.2 sec (9.0-12.0)
[2022-07-05] MEDS ORDERED: methylPREDNISolone SOD SUCCI 125 MG/2 ML VIAL IV STA (11:51)
[2022-07-05] MEDS ORDERED: NALOXONE 0.4 MG/ML 1 ML VIAL IVP PRN (12:47)
[2022-07-05] MEDS: IPRATROPIUM-ALBUTEROL 3 ML NEB INHALATION SCH ×2 (17:16→21:19)
[2022-07-05] MEDS ORDERED: LOPERAMIDE 2 MG CAP PO PRN (17:39)
[2022-07-05] MEDS ORDERED: IPRATROPIUM-ALBUTEROL 3 ML NEB INHALATION PRN (17:39)
[2022-07-05] MEDS: oxyCODONE-APAP 10-325MG 1 EACH TAB PO SCH ×2 (17:52→22:45)
[2022-07-05] MEDS: methylPREDNISolone SOD SUCCI 125 MG/2 ML VIAL IV SCH (17:53)
[2022-07-05] MEDS: carvediloL 6.25 MG TAB PO SCH (17:53)
[2022-07-05] MEDS: MELATONIN 5 MG TABLET PO SCH (20:43)
[2022-07-05] MEDS: HYDROmorphone 1 MG/ML 1 ML SYRINGE IVP PRN (20:43)
[2022-07-05] MEDS: APIXABAN 5 MG TAB PO SCH (20:43)
[2022-07-05] MEDS: MIRTAZAPINE 15 MG TAB PO SCH (20:43)
[2022-07-05] MEDS ORDERED: TORSEMIDE 20 MG TAB PO SCH (21:00)
[2022-07-05] MEDS: GABAPENTIN 300 MG CAP PO SCH (22:45)
--- NOTE | 2022-07-05 23:40 | HP ---
HISTORY AND PHYSICAL HISTORY OF PRESENT ILLNESS: A 72-year-old white female, history of COPD, CHF, difficulty breathing over last couple of days. Did not want to come to hospital sciatica. Denies any fever or chills. Denies any vomiting or abdominal pain. She is in severe pain in her back. She needs her pain medications she says. She is gaining weight. HOME MEDICINES: 1. Synthroid 150 mcg daily. 2. Omeprazole 20 b.i.d. 3. Demadex 20 mg b.i.d. 4. Eliquis 5 mg b.i.d. 5. Melatonin 10 mg daily. 6. Zoloft 75 daily. 7. Neurontin 300 t.i.d. 8. Percocet q.i.d. of . 9. Pulmicort 0.5 b.i.d. 10.Neurontin 100 mg q.6h p.r.n. 11.DuoNeb updrafts q.i.d. 12.Remeron 15 at nighttime. 13.Coreg 6.25 b.i.d. 14.Prednisone 50 mg daily. ALLERGIES: See list. PAST MEDICAL HISTORY: Atrial fibrillation, cancer, angina, heart failure, COPD, CVA, TIA, myocardial infarction, osteoarthritis, PE, pneumonia, thyroid disorder, skin disease, colitis, urinary incontinence, UTI, cervical cancer. PAST SURGICAL HISTORY: Adenoidectomy, bladder surgery, cholecystectomy, heart catheterizations, hysterectomy, joint replacement, orthopedic surgery, and tonsillectomy. PHYSICAL EXAMINATION: VITAL SIGNS: Stable and afebrile. CARDIOVASCULAR: S1, S2. LUNGS: Rhonchi x4. HEMATOLOGY: Negative Homans. PSYCH: Fair mood and affect. GI: Soft, nontender. VITAL SIGNS: Blood pressure 170s/100s, O2 95, temperature 98.3, and pulse is 70s. EKG sinus rhythm. Chest x-ray is negative. Check BMP. Give her steroids. Prognosis is guarded. Please see further orders. MMODL / IJN: [id number] /
[2022-07-06] MEDS: FUROSEMIDE 10 MG/ML 4 ML VIAL IV SCH ×3 (00:06→20:28)
[2022-07-06] MEDS: methylPREDNISolone SOD SUCCI 125 MG/2 ML VIAL IV SCH ×5 (00:06→23:38)
--- NOTE | 2022-07-06 00:09 | CT ---
EXAMINATION TYPE: CT chest wo con DATE OF EXAM: 07/05/2022 COMPARISON: 06/19/2022 HISTORY: dyspnea hx of CHF and COPD CT DLP: 1004.7 mGycm Automated exposure control for dose reduction was used. Images obtained from the thoracic inlet through the diaphragm without contrast. There is some mild subsegmental atelectasis at the posterior lung bases. Heart size is top normal. No pericardial effusion. No pleural effusion. There are no hilar masses. There is no mediastinal adenop athy. Thoracic aorta is intact. No aneurysm. There is some bronchial cartilage calcification. The thoracic spine is intact. No compression fracture. The sternum is intact. IMPRESSION: There are some mild subsegmental atelectasis in the posterior lung bah without significant change compared to old exam. No suspicious pulmonary mass. No pleural fluid seen to suggest heart failure.
[2022-07-06] MEDS: HYDROmorphone 1 MG/ML 1 ML SYRINGE IVP PRN ×4 (01:26→20:28)
[2022-07-06] MEDS: PANTOPRAZOLE 40 MG TABLET PO SCH (06:27)
[2022-07-06] MEDS: carvediloL 6.25 MG TAB PO SCH ×2 (06:27→18:07)
[2022-07-06] MEDS: LEVOTHYROXINE 75 MCG TAB PO SCH (06:27)
[2022-07-06] MEDS: BUDESONIDE 0.5 MG/2 ML NEBU INHALATION SCH (07:08)
[2022-07-06] MEDS: IPRATROPIUM-ALBUTEROL 3 ML NEB INHALATION SCH ×4 (07:08→20:57)
[2022-07-06] MEDS: APIXABAN 5 MG TAB PO SCH ×2 (08:10→20:28)
[2022-07-06] MEDS: oxyCODONE-APAP 10-325MG 1 EACH TAB PO SCH ×4 (08:10→22:28)
[2022-07-06] MEDS: GABAPENTIN 300 MG CAP PO SCH ×3 (08:11→22:28)
[2022-07-06] MEDS: DAPAGLIFLOZIN PROPANEDIOL 10 MG TABLET PO SCH (08:11)
[2022-07-06] MEDS: SERTRALINE 25 MG TAB PO SCH (08:11)
[2022-07-06] MEDS: MIRTAZAPINE 15 MG TAB PO SCH (20:28)
[2022-07-06] MEDS: MELATONIN 5 MG TABLET PO SCH ×2 (20:28→22:28)
--- NOTE | 2022-07-07 00:53 | PN ---
PROGRESS NOTE SUBJECTIVE: A 72-year-old white female, admitted to the hospital with COPD exacerbation. She has history of bad COPD, nocturnal hypoxemia, sleep apnea. She does not have any oxygen at her house at night. She wakes up at night, short of breath for the last few days. She was admitted for COPD exacerbation. CAT scan has been ordered. Labs reviewed. Her oxygen level is 93 to 94% on room air during the day. OBJECTIVE: VITAL SIGNS: Blood pressure 122/66, temp 98.8, pulse is in the 70s, respiratory rate 16 to 18. CARDIOVASCULAR: S1-S2. LUNGS: Rales at the base. HEMATOLOGY: Negative Homans. PSYCH: Fair mood and affect. NEUROLOGIC: Alert and oriented x3. ASSESSMENT: Chronic obstructive pulmonary disease exacerbation, tracheobronchitis, possible aspiration, gastroesophageal reflux disease. Prognosis is guarded. Keep on steroids. Reflux precautions. Wait for Pulmonary to see her. Keep her on IV Lasix for possible diastolic CHF. Please see further orders. MMODL / IJN: [id number] /
[2022-07-07] MEDS: HYDROmorphone 1 MG/ML 1 ML SYRINGE IVP PRN ×4 (01:31→20:45)
[2022-07-07] MEDS: methylPREDNISolone SOD SUCCI 125 MG/2 ML VIAL IV SCH ×3 (05:41→17:10)
[2022-07-07] MEDS: carvediloL 6.25 MG TAB PO SCH ×2 (05:41→17:08)
[2022-07-07] MEDS: LEVOTHYROXINE 75 MCG TAB PO SCH (05:41)
[2022-07-07] MEDS: PANTOPRAZOLE 40 MG TABLET PO SCH (05:41)
[2022-07-07] MEDS: BUDESONIDE 0.5 MG/2 ML NEBU INHALATION SCH (08:12)
[2022-07-07] MEDS: IPRATROPIUM-ALBUTEROL 3 ML NEB INHALATION SCH ×4 (08:12→20:52)
[2022-07-07] MEDS: GABAPENTIN 300 MG CAP PO SCH ×3 (08:48→20:42)
[2022-07-07] MEDS: oxyCODONE-APAP 10-325MG 1 EACH TAB PO SCH (08:48)
[2022-07-07] MEDS: APIXABAN 5 MG TAB PO SCH ×2 (08:48→20:42)
[2022-07-07] MEDS: SERTRALINE 25 MG TAB PO SCH (08:49)
[2022-07-07] MEDS: DAPAGLIFLOZIN PROPANEDIOL 10 MG TABLET PO SCH (08:49)
[2022-07-07] MEDS: FUROSEMIDE 10 MG/ML 4 ML VIAL IV SCH ×3 (08:50→20:42)
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
--- NOTE | 2022-07-07 13:45 | US ---
EXAMINATION TYPE: US venous doppler duplex LE DATE OF EXAM: 07/07/2022 1:25 PM COMPARISON: NONE CLINICAL HISTORY: dvt. SOB SIDE PERFORMED: Bilateral TECHNIQUE: The lower extremity deep venous system is examined utilizing real time linear array sonog mariana with graded compression, doppler sonography and color-flow sonography. VESSELS IMAGED: Common Femoral Vein Deep Femoral Vein Greater Saphenous Vein * Femoral Vein Popliteal Vein Small Saphenous Vein * Proximal Calf Veins (* superficial vessels) Very Limited scan due to severe pt morbid obesity, unable to tolerate probe pressure, and uncoopera tive Right Leg: Only distal femoral and distal popliteal veins visualized and negative for DVT, all other veins not visualized due to severe pt morbid obesity and pt unable to tolerate probe pressure Left Leg: Only mid and distal femoral veins visualized and negative for DVT, all other veins not vis ualized due to severe pt morbid obesity and pt unable to tolerate probe pressure IMPRESSION: No evidence for DVT on this limited study.
[2022-07-07] MEDS: oxyCODONE-APAP 10-325MG 1 EACH TAB PO PRN (17:14)
[2022-07-07] MEDS: MIRTAZAPINE 15 MG TAB PO SCH (20:42)
[2022-07-07] MEDS: MELATONIN 5 MG TABLET PO SCH (20:48)
[2022-07-08] MEDS: oxyCODONE-APAP 10-325MG 1 EACH TAB PO PRN ×4 (00:15→18:05)
[2022-07-08] MEDS: methylPREDNISolone SOD SUCCI 125 MG/2 ML VIAL IV SCH ×4 (00:15→17:31)
[2022-07-08] MEDS: HYDROmorphone 1 MG/ML 1 ML SYRINGE IVP PRN ×5 (02:44→20:59)
[2022-07-08] MEDS: LEVOTHYROXINE 75 MCG TAB PO SCH (06:17)
[2022-07-08] MEDS: PANTOPRAZOLE 40 MG TABLET PO SCH (06:17)
[2022-07-08] MEDS: carvediloL 6.25 MG TAB PO SCH ×2 (06:18→17:31)
[2022-07-08] MEDS: IPRATROPIUM-ALBUTEROL 3 ML NEB INHALATION SCH ×4 (08:01→20:20)
[2022-07-08] MEDS: BUDESONIDE 0.5 MG/2 ML NEBU INHALATION SCH (08:01)
[2022-07-08] MEDS: APIXABAN 5 MG TAB PO SCH ×2 (08:04→21:00)
[2022-07-08] MEDS: GABAPENTIN 300 MG CAP PO SCH ×3 (08:04→20:59)
[2022-07-08] MEDS: DAPAGLIFLOZIN PROPANEDIOL 10 MG TABLET PO SCH (08:04)
[2022-07-08] MEDS: SERTRALINE 25 MG TAB PO SCH (08:05)
[2022-07-08] MEDS: FUROSEMIDE 10 MG/ML 4 ML VIAL IV SCH ×2 (08:05→20:58)
--- NOTE | 2022-07-08 13:52 | P.PN ---
Subjective Progress Note Date: 07/08/22 Principal diagnosis: Acute COPD exacerbation Elevated d-dimer, patient is on long-term anticoagulants with direct oral anticoagulant however DVT PE cannot be excluded Acute on chronic diastolic/systolic heart failure Bilateral basal atelectasis Morbid obesity Hypertension hypertensive cardiovascular disease Hypothyroidism Chronic neuropathy Major depression 07/08/2022, patient seen eval examined during the rounds labs reviewed medications reviewed care plan discussed, patient isn't on room air, she has some desaturation at nighttime when she came in oxygen seems to be helping, I have asked her for a polysomnogram multiple times in the past that patient has declined actually never followed up in the office she likely to be getting nocturnal pulse oximetry while in the hospital for home oxygen assessment labs reviewed medications reviewed, duplex ultrasound of the lower extremity negative for DVT, computed tomography scan of the chest as has been done unable to download the pictures Patient is a 72-year-old morbidly obese female has history of congestive heart failure with fluid overload and third spacing also have history of COPD she came into the hospital for 2-3 day history of increased shortness of breath and has intermittently wheezing she denies smoking or he does not abuse denies any substance use, does have cough is mostly nonproductive, she has chronic swelling of the lower extremity mostly she is bed bound, on arrival her CBC was normal wi th chemistry hypertension was slightly borderline glucose on the 119, chest x- ray bilateral interstitial infiltrate/scattered subtle opacities subsegmental atelectasis of the bases no active infiltrate or mass seen, folate is negative, BNP is 290 4 repeat was 1017 d-dimer is 0.86 currently patient denies any chest pain some shortness of breath is present, Objective - Vital Signs Vital signs: Vital Signs Temp 98.5 F 07/08/22 07:54 Pulse 76 07/08/22 11:25 Resp 20 07/08/22 07:54 BP 152/85 07/08/22 07:54 Pulse Ox 97 07/08/22 09:30 FiO2 21 07/08/22 08:02 Intake & Output 07/07/22 07/08/22 07/08/22 18:59 06:59 18:59 Intake Total 400 Output Total 600 1000 600 Balance -200 -1000 -600 Intake: Oral 400 Output: Urine 600 1000 600 Other: Voiding Method External Catheter External Catheter - Exam - Constitutional General appearance: disheveled, morbidly obese, no acute distress - EENT Eyes: PERRLA ENT: normal oropharynx Ears: bilateral: normal - Neck Carotids: bilateral: upstroke normal Thyroid: bilateral: normal size - Respiratory Respiratory: bilateral: CTA - Cardiovascular Rhythm: regular Heart sounds: normal: S1, S2 - Gastrointestinal General gastrointestinal: normal bowel sounds - Integumentary Integumentary: normal turgor - Neurologic Neurologic: CNII-XII intact - Musculoskeletal Musculoskeletal: gait normal, generalized weakness, strength equal bilaterally - Psychiatric Psychiatric: A&O x's 3, appropriate affect, intact judgment & insight - Labs CBC & Chem 7: 07/05/22 10:52 07/05/22 10:52 Assessment and Plan Assessment: Acute COPD exacerbation Elevated d-dimer, patient is on long-term anticoagulants with direct oral anticoagulant however DVT PE cannot be excluded Acute on chronic diastolic/systolic heart failure Bilateral basal atelectasis Nocturnal hypoxemia Morbid obesity Hypertension hypertensive cardiovascular disease Hypothyroidism Chronic neuropathy Major depression Plan: Continue bronchodilators and IV steroids however can initiate tapering Elevated d-dimer likely related chronic inflammation and patient being on direct oral anticoagulants Continue deep breathing exercises incentive spirometry Nocturnal pulse oximetry while in the hospital to evaluate assess for nocturnal oxygen need Continue home medications Duplex ultrasound lower extremity and computed tomography scan of the chest with IV contrast Further plan of care as per clinical response of the patient Time with Patient: Greater than 30
--- NOTE | 2022-07-08 14:48 | CT ---
EXAMINATION TYPE: CT angio chest DATE OF EXAM: 07/08/2022 COMPARISON: 07/05/2022, 07/10/2021 HISTORY: 72-year-old female with shortness of breath TECHNIQUE: Contiguous axial scanning of the chest performed with IV Contrast, patient injected with 1 30 mL of Isovue 370. Coronal/sagittal MIP reconstructions performed. CT DLP: 1187.8 mGycm Automated exposure control for dose reduction was used. FINDINGS: Heart limits of normal in size. No flattening of the mid interventricular septum or reflux of contras t into the hepatic veins. Mitral annular calcifications are noted. Mild LAD coronary artery calcifica tions. Borderline ectasia upper descending thoracic aorta 3.0 cm. Aberrant right subclavian artery that take s a richer esophageal course. Large caliber to the main right and left pulmonary arteries measuring up to 3.0 cm suggesting underly ing pulmonary arterial hypertension. There is borderline suboptimal contrast bolus with attenuation o f 218 Hounsfield units. No large central or lobar branch pulmonary embolus is seen. There is further limitation due to mild breathing motion artifact. No definite pulmonary embolus seen in the more dist al branches. Prominent dependent atelectasis along the posterior lungs. Strandy atelectasis at the lung bases. Visualized upper abdomen shows large spleen with low attenuation suggesting fatty infiltration. Bones: [facility] mid and lower thoracic spine. IMPRESSION: 1. BORDERLINE SUBOPTIMAL CONTRAST BOLUS AND MILD BREATHING MOTION. NO DEFINITE PULMONARY EMBOLUS IS S EEN. 2. THERE MAY BE UNDERLYING PULMONARY ARTERY HYPERTENSION. 3. PROMINENT DEPENDENT ATELECTASIS IN THE LUNGS. HYPOVENTILATORY CHANGES MAY BE DUE TO RESTRICTIVE ROHITH NG DISEASE FROM LARGE BODY HABITUS. CLINICALLY CORRELATE. 4. UNDERLYING HEPATOMEGALY WITH HEPATIC STEATOSIS.
[2022-07-08] MEDS: SILDENAFIL 20 MG TAB PO SCH ×2 (17:31→20:59)
[2022-07-08] MEDS: MIRTAZAPINE 15 MG TAB PO SCH (20:59)
--- NOTE | 2022-07-08 22:05 | PN ---
PROGRESS NOTE SUBJECTIVE: A 72-year-old white female with asthma, COPD exacerbation. She had a mildly elevated D- dimer. She is in with COPD exacerbation. I am going to order a pulmonary CTA if her creatinine improves. Prognosis is guarded. Continue steroids and needs O2 oxygen at nighttime. We have to set her up with oxygen at nighttime. She dropped down to 87 twice since she has been here at night. Continue current treatments for COPD exacerbation, diastolic heart failure, obesity. Prognosis guarded. OBJECTIVE: LUNGS: Clear. CARDIOVASCULAR: S1, S2. HEMATOLOGY: Large edema throughout all her body. PROGNOSIS: Extremely guarded. MMODL / IJN: [id number] /
[2022-07-09] MEDS: oxyCODONE-APAP 10-325MG 1 EACH TAB PO PRN ×3 (00:07→15:34)
[2022-07-09] MEDS: methylPREDNISolone SOD SUCCI 125 MG/2 ML VIAL IV SCH ×3 (00:07→13:03)
[2022-07-09] MEDS: LEVOTHYROXINE 75 MCG TAB PO SCH (04:48)
[2022-07-09] MEDS: HYDROmorphone 1 MG/ML 1 ML SYRINGE IVP PRN ×2 (04:48→09:48)
[2022-07-09] MEDS: carvediloL 6.25 MG TAB PO SCH ×2 (06:29→17:08)
[2022-07-09] MEDS: PANTOPRAZOLE 40 MG TABLET PO SCH (06:29)
[2022-07-09] MEDS: SERTRALINE 25 MG TAB PO SCH (07:49)
[2022-07-09] MEDS: APIXABAN 5 MG TAB PO SCH (07:49)
[2022-07-09] MEDS: DAPAGLIFLOZIN PROPANEDIOL 10 MG TABLET PO SCH (07:49)
[2022-07-09] MEDS: SILDENAFIL 20 MG TAB PO SCH ×2 (07:49→16:23)
[2022-07-09] MEDS: GABAPENTIN 300 MG CAP PO SCH ×2 (07:49→16:23)
[2022-07-09] MEDS: FUROSEMIDE 10 MG/ML 4 ML VIAL IV SCH (09:47)
[2022-07-09] MEDS: BUDESONIDE 0.5 MG/2 ML NEBU INHALATION SCH (09:50)
[2022-07-09] MEDS: IPRATROPIUM-ALBUTEROL 3 ML NEB INHALATION SCH ×3 (09:50→16:24)
[2022-07-09 12:00] VITALS: RESP 18
[2022-07-09 14:59] VITALS: BP 113/69; PULSE 70; TEMP 98.3
--- NOTE | 2022-07-09 15:11 | P.PN ---
Subjective Progress Note Date: 07/09/22 Principal diagnosis: Acute COPD exacerbation Elevated d-dimer, patient is on long-term anticoagulants with direct oral anticoagulant however DVT PE cannot be excluded Acute on chronic diastolic/systolic heart failure Bilateral basal atelectasis Morbid obesity Hypertension hypertensive cardiovascular disease Hypothyroidism Chronic neuropathy Major depression 07/09/2022, patient seen eval examined during rounds labs reviewed medications reviewed, patient has a oxygen desaturation study, with intermittent desaturation at nighttime patient is evaluated for home oxygen, patient remains on bronchodilator therapy with diuresis, now have been changed to oral steroids from IV 07/08/2022, patient seen eval examined during the rounds labs reviewed medications reviewed care plan discussed, patient isn't on room air, she has some desaturation at nighttime when she came in oxygen seems to be helping, I have asked her for a polysomnogram multiple times in the past that patient has declined actually never followed up in the office she likely to be getting nocturnal pulse oximetry while in the hospital for home oxygen assessment labs reviewed medications reviewed, duplex ultrasound of the lower extremity negative for DVT, computed tomography scan of the chest as has been done unable to download the pictures Patient is a 72-year-old morbidly obese female has history of congestive heart failure with fluid overload and third spacing also have history of COPD she came into the hospital for 2-3 day history of increased shortness of breath and has intermittently wheezing she denies smoking or he does not abuse denies any substance use, does have cough is mostly nonproductive, she has chronic swelling of the lower extremity mostly she is bed bound, on arrival her CBC was normal with chemistry hypertension was slightly borderline glucose on the 119, chest x- ray bilateral interstitial infiltrate/scattered subtle opacities subsegmental atelectasis of the bases no active infiltrate or mass seen, folate is negative, BNP is 290 4 repeat was 1017 d-dimer is 0.86 currently patient denies any chest pain some shortness of breath is present, Objective - Vital Signs Vital signs: Vital Signs Temp 98.3 F 07/09/22 14:55 Pulse 70 07/09/22 14:55 Resp 18 07/09/22 14:55 BP 113/69 07/09/22 14:55 Pulse Ox 96 07/09/22 14:55 FiO2 21 07/08/22 08:02 Intake & Output 07/08/22 07/09/22 07/09/22 18:59 06:59 18:59 Intake Total 1080 Output Total 3500 2700 Balance -2420 -2700 Weight 166 kg Intake: Oral 1080 Output: Urine 3500 2700 Other: Voiding Method External Catheter External Catheter # Bowel Movements 1 - Exam - Constitutional General appearance: disheveled, morbidly obese, no acute distress - EENT Eyes: PERRLA ENT: normal oropharynx Ears: bilateral: normal - Neck Carotids: bilateral: upstroke normal Thyroid: bilateral: normal size - Respiratory Respiratory: bilateral: CTA - Cardiovascular Rhythm: regular Heart sounds: normal: S1, S2 - Gastrointestinal General gastrointestinal: normal bowel sounds - Integumentary Integumentary: normal turgor - Neurologic Neurologic: CNII-XII intact - Musculoskeletal Musculoskeletal: gait normal, generalized weakness, strength equal bilaterally - Psychiatric Psychiatric: A&O x's 3, appropriate affect, intact judgment & insight - Labs CBC & Chem 7: 07/05/22 10:52 07/05/22 10:52 Assessment and Plan Assessment: Acute COPD exacerbation Elevated d-dimer, patient is on long-term anticoagulants with direct oral anticoagulant however DVT PE cannot be excluded Acute on chronic diastolic/systolic heart failure Bilateral basal atelectasis Nocturnal hypoxemia Morbid obesity Hypertension hypertensive cardiovascular disease Hypothyroidism Chronic neuropathy Major depression Plan: Continue bronchodilators and IV steroids however can initiate tapering Elevated d-dimer likely related chronic inflammation and patient being on direct oral anticoagulants Continue deep breathing exercises incentive spirometry Nocturnal pulse oximetry while in the hospital to evaluate assess for nocturnal oxygen need Continue home medications Duplex ultrasound lower extremity and computed tomography scan of the chest with IV contrast reviewed no major large pulmonary embolism seen Further plan of care as per clinical response of the patient Time with Patient: Greater than 30
--- NOTE | 2022-07-09 22:43 | DS ---
DISCHARGE SUMMARY HOSPITAL COURSE: The patient came in with COPD exacerbation, tracheobronchitis treated with IV steroids, IV Lasix for diastolic heart failure. She was not taking oxygen at home. We reordered her home oxygen for nighttime. We will have a set up at discharge for her to go back home. CT scan of the chest showed pulmonary hypertension. We ordered Revatio 20 mg t.i.d. for pulmonary hypertension, which has helped her breathing in the hospital. She will go home on nocturnal oxygen as an outpatient. MEDICATIONS: Sent home on; 1. Medrol Dosepak. 2. Revatio 20 mg t.i.d. 3. Synthroid 150 mcg daily. 4. Eliquis 5 mg b.i.d. 5. Neurontin 300 t.i.d. 6. Remeron 15 at bedtime. 7. Mag gluconate 500 b.i.d. 8. Coreg 6.25 b.i.d. 9. Requip 1 mg daily. 10.Farxiga 10 mg daily. 11.Imodium 2 mg q.i.d. p.r.n. 12.Omeprazole 20 b.i.d. 13.Demadex 20 b.i.d. 14.Melatonin 10 mg daily. 15.Zoloft 75 mg daily. 16.Percocet 10/325, she takes q.i.d. 17.Pulmicort nebulizer 0.5 b.i.d. 18.DuoNeb q.i.d. 19.Benadryl p.r.n. for itching. CONDITION: Stable. PROGNOSIS: Guarded. FOLLOWUP: Follow up as an outpatient. MMODL / IJN: [id number] /
[2022-07-10] MEDS ORDERED: methylPREDNISolone 4 MG TAB TAPER PO SCH (09:00)
== END 2022-07-09 17:35 | disposition home or self-care (01) ==
LOC: EC 10:31 → 6NMEDSUR 12:49 → 4SSUR 14:59
PROVIDERS: ADMIT Family Medicine; ATTEND Family Medicine
DX: J44.1 Chronic obstructive pulmonary disease with (acute) exacerbation (principal); I11.0 Hypertensive heart disease with heart failure; I50.43 Acute on chronic combined systolic (congestive) and diastolic (congestive) heart failure; I48.91 Unspecified atrial fibrillation; I25.2 Old myocardial infarction; E03.9 Hypothyroidism, unspecified; K22.70 Barrett's esophagus without dysplasia; M54.9 Dorsalgia, unspecified; G89.29 Other chronic pain; F32.A Depression, unspecified; F41.9 Anxiety disorder, unspecified; K44.9 Diaphragmatic hernia without obstruction or gangrene; K58.9 Irritable bowel syndrome, unspecified; J98.11 Atelectasis; K21.9 Gastro-esophageal reflux disease without esophagitis; M51.24 Other intervertebral disc displacement, thoracic region; R79.89 Other specified abnormal findings of blood chemistry; K76.0 Fatty (change of) liver, not elsewhere classified; G62.9 Polyneuropathy, unspecified; F32.9 Major depressive disorder, single episode, unspecified; I27.20 Pulmonary hypertension, unspecified; E66.01 Morbid (severe) obesity due to excess calories; Z86.711 Personal history of pulmonary embolism; Z79.84 Long term (current) use of oral hypoglycemic drugs; Z88.8 Allergy status to other drugs, medicaments and biological substances; Z86.73 Personal history of transient ischemic attack (TIA), and cerebral infarction without residual deficits; Z79.890 Hormone replacement therapy; Z79.899 Other long term (current) drug therapy; Z79.01 Long term (current) use of anticoagulants; Z79.51 Long term (current) use of inhaled steroids; Z87.442 Personal history of urinary calculi; Z85.41 Personal history of malignant neoplasm of cervix uteri; Z90.49 Acquired absence of other specified parts of digestive tract; Z96.653 Presence of artificial knee joint, bilateral; Z90.710 Acquired absence of both cervix and uterus; Z96.642 Presence of left artificial hip joint; Z82.49 Family history of ischemic heart disease and other diseases of the circulatory system; Z82.3 Family history of stroke; Z80.1 Family history of malignant neoplasm of trachea, bronchus and lung; Z20.822 Contact with and (suspected) exposure to COVID-19; Z68.44 Body mass index [BMI] 60.0-69.9, adult
CPT/HCPCS: 96376 ×4; 96374; 96375; 99285; 36415; 94640 ×8; 94760 ×2; 93005; 36410; 76937; 85379; 83880; 80053; 83605; 83735; 84484; 85025; 85610; 85730; 84145; 87635; 71046; 93970; 71250; 71275; G0378 ×6; J1940 ×4; J2930 ×5; J1170 ×5; Q9967

== ENCOUNTER 2022-07-28 15:12 | Observation (INO) | payer OTHER ==
--- NOTE | 2022-07-28 15:57 | XR ---
EXAMINATION TYPE: XR chest 2V DATE OF EXAM: 07/28/2022 COMPARISON: 07/05/2022 HISTORY: 72 year-old female shortness of breath, difficulty breathing TECHNIQUE: AP and lateral views FINDINGS: Heart borderline in size. Elongation/ectasia of the thoracic aorta. Interstitial prominence. No conso lidation or pleural effusion. Hazy densities relating to large patient body habitus. IMPRESSION: Borderline heart size. Interstitial prominence. Correlate to exclude mild pulmonary vascular congesti on.
[2022-07-28] MEDS ORDERED: oxyCODONE-APAP 10-325MG 1 EACH TAB PO STA (16:55)
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
[2022-07-28 17:44] LABS: Basophils % (A) 1 %; Eosinophils # (A) 0.3 k/uL (0-0.7); Eosinophils % (A) 6 %; HCT 49.1 % (34.0-46.0); Hypochromasia Slight; Lymphocytes # (A) 0.8 k/uL (1.0-4.8); Lymphocytes % (A) 16 %; MCH 26.5 pg (25.0-35.0); MCHC 31.5 g/dL (31.0-37.0); MCV 84.2 fL (80.0-100.0); Mean Platelet Volume 7.3; Monocytes # (A) 0.2 k/uL (0-1.0); Monocytes % (A) 4 %; Neutrophils # (A) 3.6 k/uL (1.3-7.7); Neutrophils % (A) 73 %; Platelet Count 143 k/uL (150-450); RBC 5.83 m/uL (3.80-5.40); RDW 14.2 % (11.5-15.5); WBC 4.9 k/uL (3.8-10.6)
[2022-07-28 18:01] LABS: HGB 15.5 gm/dL (11.4-16.0)
[2022-07-28 18:02] LABS: ALT 20 U/L (4-34); AST 25 U/L (14-36); African American GFR (CKD) >90 (>60 ml/min/1.73 sqM); Albumin 3.6 g/dL (3.5-5.0); Alkaline Phosphatase 104 U/L (38-126); Anion Gap 4 mmol/L; Blood Urea Nitrogen 16 mg/dL (7-17); Calcium 8.6 mg/dL (8.4-10.2); Carbon Dioxide 32 mmol/L (22-30); Chloride 105 mmol/L (98-107); Glucose 111 mg/dL (74-99); Magnesium 1.9 mg/dL (1.6-2.3); Non-African American GFR(CKD) 86 (>60 ml/min/1.73 sqM); Potassium 3.9 mmol/L (3.5-5.1); Sodium 141 mmol/L (137-145); Total Bilirubin 0.4 mg/dL (0.2-1.3); Total Protein 6.3 g/dL (6.3-8.2)
[2022-07-28 18:04] LABS: INR 0.9 (<1.2); Partial Thromboplastin Time 24.8 sec (22.0-30.0)
[2022-07-28] MEDS ORDERED: NALOXONE 0.4 MG/ML 1 ML VIAL IV PRN (20:10)
[2022-07-28] MEDS ORDERED: FUROSEMIDE 10 MG/ML 4 ML VIAL IV STA (20:12)
[2022-07-28] MEDS ORDERED: LOPERAMIDE 2 MG CAP PO PRN (20:13)
[2022-07-28] MEDS ORDERED: IPRATROPIUM-ALBUTEROL 3 ML NEB INHALATION PRN (20:13)
[2022-07-28] MEDS ORDERED: MIRTAZAPINE 15 MG TAB PO SCH (21:00)
[2022-07-28] MEDS ORDERED: MORPHINE SULFATE 4 MG/ML SYRINGE IVP STA (21:02)
[2022-07-28] MEDS: GABAPENTIN 300 MG CAP PO SCH (21:16)
[2022-07-28 22:07] LABS: Appearance,Urine Clear (Clear); Bilirubin,Urine Negative (Negative); Blood,Urine Negative (Negative); Color,Urine Colorless; Glucose,Urine (UA) Negative (Negative); Ketones,Urine Negative (Negative); Leukocyte Esterase,Urine Negative (Negative); Nitrite,Urine Negative (Negative); Protein,Urine Negative (Negative); Specific Gravity,Urine 1.007 (1.001-1.035); Urobilinogen,Urine <2.0 mg/dL (<2.0)
[2022-07-28] MEDS: oxyCODONE-APAP 10-325MG 1 EACH TAB PO PRN (23:31)
[2022-07-29] MEDS ORDERED: HEPARIN SODIUM,PORCINE/PF 5,000 UNIT/0.5 ML SYRINGE SQ SCH
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
[2022-07-29] MEDS: MORPHINE SULFATE 4 MG/ML SYRINGE IVP PRN ×2 (01:53→09:44)
[2022-07-29] MEDS: oxyCODONE-APAP 10-325MG 1 EACH TAB PO PRN ×2 (05:30→12:36)
[2022-07-29] MEDS ORDERED: carvediloL 6.25 MG TAB PO SCH (07:30)
[2022-07-29 07:53] VITALS: RESP 16
[2022-07-29] MEDS ORDERED: PANTOPRAZOLE 40 MG TABLET PO SCH (08:00)
[2022-07-29] MEDS ORDERED: APIXABAN 5 MG TAB PO SCH (08:00)
[2022-07-29] MEDS ORDERED: LEVOTHYROXINE 75 MCG TAB PO SCH (08:00)
[2022-07-29] MEDS ORDERED: DAPAGLIFLOZIN PROPANEDIOL 10 MG TABLET PO SCH (09:00)
[2022-07-29] MEDS ORDERED: TORSEMIDE 20 MG TAB PO SCH (09:00)
[2022-07-29] MEDS ORDERED: LOSARTAN 25 MG TAB PO SCH (09:00)
[2022-07-29] MEDS ORDERED: FUROSEMIDE 10 MG/ML 4 ML VIAL IV SCH (09:00)
[2022-07-29] MEDS ORDERED: SERTRALINE 25 MG TAB PO SCH (09:00)
[2022-07-29] MEDS ORDERED: SPIRONOLACTONE 25 MG TAB PO SCH (09:00)
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
[2022-07-29] MEDS: GABAPENTIN 300 MG CAP PO SCH (09:41)
[2022-07-29 10:26] LABS: Basophils # (A) 0.04 X 10*3/uL (0.00-0.10); Basophils % (A) 0.8 %; Eosinophils # (A) 0.38 X 10*3/uL (0.04-0.35); Eosinophils % (A) 7.2 %; HCT 32.6 % (37.2-46.3); Immature Grans, Automated 0.2 %; Lymphocytes # (A) 1.13 X 10*3/uL (0.90-5.00); Lymphocytes % (A) 21.5 %; MCHC 30.7 g/dL (32.0-37.0); MCV 84.9 fL (80.0-97.0); Mean Platelet Volume 9.3 fL (9.5-12.2); Monocytes # (A) 0.34 X 10*3/uL (0.20-1.00); Monocytes % (A) 6.5 %; NRBC Per 100 WBC 0 /100 WBCS (0.0-0.0); Neutrophils # (A) 3.35 X 10*3/uL (1.80-7.70); Neutrophils % (A) 63.8 %; Platelet Count 222 X 10*3/uL (140-440); RBC 3.84 X 10*6/uL (4.10-5.20); RDW 14.7 % (11.5-14.5); WBC 5.25 X 10*3/uL (4.50-10.00)
[2022-07-29 10:36] LABS: African American GFR (CKD) 84.2 (60.0-200.0); Anion Gap 8.4 mmol/L (10.00-18.00); BUN/Creat Ratio 16.5 Ratio (12.00-20.00); Blood Urea Nitrogen 13.2 mg/dL (9.0-27.0); Calcium 8.8 mg/dL (8.7-10.3); Carbon Dioxide 31.6 mmol/L (20.0-27.5); Non-African American GFR(CKD) 72.6 (60.0-200.0); Potassium 4.1 mmol/L (3.5-5.5)
--- NOTE | 2022-07-29 12:14 | P.DS ---
Providers Date of admission: 07/28/22 20:14 Expected date of discharge: 07/29/22 Attending physician: Laura Wiley MD Consults: 07/28/22 20:10 Consult Physician Routine Consulting Provider: [facility] Consult Reason/Comments: chf exacerbation Do you want consulting provider notified?: Yes Primary care physician: Jabier Evans MD Hospital Course: Discharge Diagnosis: Acute on chronic dyspnea Chronic hypoxic respiratory failure Heart failure with preserved ejection fraction, chronic COPD not in exacerbation Paroxysmal atrial fibrillation Hypothyroidism Hospital Course: 72 year old female with COPD on home oxygen , diastolic chf presented initially for worsening orthopnea and increased body weight. She had outpatient increase of her torsemide dose, did not relieve her symptoms. In the ED, chest x-ray showed very mild vascular congestive changes, proBNP was within normal limits, troponins were negative. EKG showed normal sinus rhythm. Lab work showed normocytic anemia, close to her baseline. Cardiology consulted. Patient not in acute heart failure exacerbation. Being discharge on oral diuretics. Also started on aldactone for HFpEF. Patient seen and examined at bedside. Vital signs reviewed and stable. General: nontoxic, no distress, appears at stated age, morbidly obese Derm: warm, dry Head: atraumatic, normocephalic, symmetric Eyes: EOMI, no lid lag, anicteric sclera Mouth: no lip lesion, mucus membranes moist Cardiovascular: S1S2 reg, no murmur Lungs: CTA bilateral, no rhonchi, no rales , no accessory muscle use Abdominal: soft, nontender to palpation, no guarding, no appreciable organomegaly Ext: no gross muscle atrophy, no edema, no contractures Neuro: CN II-XI grossly intact, no focal neuro deficits Psych: Alert, oriented, appropriate affect A total of 32 minutes of time were spent preparing this complex discharge summary. Patient was discharged on 07/29/22 at 11:50. Patient Condition at Discharge: Stable Plan - Discharge Summary New Discharge Prescriptions: New Spironolactone [Aldactone] 12.5 mg PO DAILY #14 tablet Continue Levothyroxine Sodium [Synthroid] 150 mcg PO DAILY@0800 Apixaban [Eliquis] 5 mg PO BID@0800,2000 Gabapentin [Neurontin] 300 mg PO TID Mirtazapine [Remeron] 15 mg PO HS carvediloL [Coreg] 6.25 mg PO BID rOPINIRole HCL [Requip] 1 mg PO HS #30 tab Dapagliflozin Propanediol [Farxiga] 10 mg PO DAILY 30 Days #30 tab Loperamide [Imodium] 2 mg PO QID PRN cap PRN Reason: Diarrhea Omeprazole 20 mg PO BID@0800,1999 Torsemide [Demadex] 20 mg PO BID Melatonin [Melatonin Dissolving Tablet] 10 mg PO HS@1999 Sertraline [Zoloft] 75 mg PO DAILY oxyCODONE-APAP 10-325MG [Percocet 10-325 mg] 1 tab PO QID PRN PRN Reason: Pain Ipratropium-Albuterol Nebulize [Duoneb 0.5 mg-3 mg/3 ml Soln] 3 ml INHALATION RT-QID PRN PRN Reason: Shortness Of Breath Discharge Medication List Levothyroxine Sodium [Synthroid] 150 mcg PO DAILY@0800 06/18/18 [History] Omeprazole 20 mg PO BID@799,199904/16/21 [History] Torsemide [Demadex] 20 mg PO BID 07/10/21 [History] Apixaban [Eliquis] 5 mg PO BID@0800,199901/25/22 [History] Melatonin [Melatonin Dissolving Tablet] 10 mg PO HS@199901/25/22 [History] Sertraline [Zoloft] 75 mg PO DAILY 01/25/22 [History] Gabapentin [Neurontin] 300 mg PO TID 06/03/22 [History] oxyCODONE-APAP 10-325MG [Percocet 10-325 mg] 1 tab PO QID PRN 06/03/22 [History] Ipratropium-Albuterol Nebulize [Duoneb 0.5 mg-3 mg/3 ml Soln] 3 ml INHALATION RT-QID PRN 06/04/22 [History] Mirtazapine [Remeron] 15 mg PO HS 06/04/22 [History] carvediloL [Coreg] 6.25 mg PO BID 06/04/22 [History] rOPINIRole HCL [Requip] 1 mg PO HS #30 tab 06/05/22 [Rx] Dapagliflozin Propanediol [Farxiga] 10 mg PO DAILY 30 Days #30 tab 06/21/22 [Rx] Loperamide [Imodium] 2 mg PO QID PRN cap 06/21/22 [Rx] Spironolactone [Aldactone] 12.5 mg PO DAILY #14 tablet 07/29/22 [Rx] Follow up Appointment(s)/Referral(s): Jabier Evans MD [Primary Care Provider] - 1-2 days Patient Instructions/Handouts: Heart Failure (DC) Activity/Diet/Wound Care/Special Instructions: Please see your PCP in 1-2 days. Discharge Disposition: HOME SELF-CARE
[2022-07-29 14:58] VITALS: BP 109/64; PULSE 86; TEMP 98
[2022-07-29] MEDS ORDERED: MELATONIN 5 MG TABLET PO SCH (20:00)
== END 2022-07-29 15:15 | disposition home or self-care (01) ==
LOC: EC 15:12 → 6NMEDSUR 20:14
PROVIDERS: ADMIT Internal Medicine; ATTEND Internal Medicine
DX: I11.0 Hypertensive heart disease with heart failure (principal); I50.32 Chronic diastolic (congestive) heart failure; J96.11 Chronic respiratory failure with hypoxia; J44.9 Chronic obstructive pulmonary disease, unspecified; Z99.81 Dependence on supplemental oxygen; I48.0 Paroxysmal atrial fibrillation; E03.9 Hypothyroidism, unspecified; K22.70 Barrett's esophagus without dysplasia; I25.10 Atherosclerotic heart disease of native coronary artery without angina pectoris; E78.5 Hyperlipidemia, unspecified; I25.2 Old myocardial infarction; D64.9 Anemia, unspecified; M15.9 Polyosteoarthritis, unspecified; K44.9 Diaphragmatic hernia without obstruction or gangrene; G89.29 Other chronic pain; M54.50 Low back pain, unspecified; K58.9 Irritable bowel syndrome, unspecified; L30.9 Dermatitis, unspecified; F32.A Depression, unspecified; F41.9 Anxiety disorder, unspecified; E66.01 Morbid (severe) obesity due to excess calories; Z68.44 Body mass index [BMI] 60.0-69.9, adult; Z20.822 Contact with and (suspected) exposure to COVID-19; Z79.890 Hormone replacement therapy; Z79.01 Long term (current) use of anticoagulants; Z79.84 Long term (current) use of oral hypoglycemic drugs; Z79.899 Other long term (current) drug therapy; Z88.5 Allergy status to narcotic agent; Z88.6 Allergy status to analgesic agent; Z88.8 Allergy status to other drugs, medicaments and biological substances; Z86.73 Personal history of transient ischemic attack (TIA), and cerebral infarction without residual deficits; Z86.711 Personal history of pulmonary embolism; Z87.19 Personal history of other diseases of the digestive system; Z85.42 Personal history of malignant neoplasm of other parts of uterus; Z87.01 Personal history of pneumonia (recurrent); Z87.440 Personal history of urinary (tract) infections; Z87.442 Personal history of urinary calculi; Z16.24 Resistance to multiple antibiotics; Z90.49 Acquired absence of other specified parts of digestive tract; Z91.410 Personal history of adult physical and sexual abuse; Z96.653 Presence of artificial knee joint, bilateral; Z96.642 Presence of left artificial hip joint; Z98.890 Other specified postprocedural states; Z80.1 Family history of malignant neoplasm of trachea, bronchus and lung; Z82.49 Family history of ischemic heart disease and other diseases of the circulatory system; Z82.3 Family history of stroke; Z84.89 Family history of other specified conditions
CPT/HCPCS: 96376; 96374; 96375; 99291; 36415; 94640; 93005; 85379; 83880; 80053; 80048; 83735; 84484; 85025 ×2; 85610; 85730; 81003; 87636; 71046; G0378 ×2; J2270 ×2; J1940; 96372

== ENCOUNTER 2022-07-30 18:52 | Observation (INO) | payer OTHER ==
[2022-07-30] MEDS ORDERED: NITROGLYCERIN OINT 1 INCH/GM PACKET TOPICAL STA (19:05)
[2022-07-30] MEDS ORDERED: ONDANSETRON 4 MG/2 ML VIAL IVP STA (19:07)
[2022-07-30 20:13] LABS: Basophils # (A) 0.1 k/uL (0-0.2); Basophils % (A) 1 %; Eosinophils # (A) 0.4 k/uL (0-0.7); Eosinophils % (A) 5 %; HCT 33.7 % (34.0-46.0); Lymphocytes # (A) 1.2 k/uL (1.0-4.8); Lymphocytes % (A) 17 %; MCH 27.6 pg (25.0-35.0); MCHC 33.8 g/dL (31.0-37.0); MCV 81.8 fL (80.0-100.0); Mean Platelet Volume 7.3; Monocytes # (A) 0.3 k/uL (0-1.0); Monocytes % (A) 4 %; Neutrophils # (A) 5.5 k/uL (1.3-7.7); Neutrophils % (A) 73 %; Platelet Count 284 k/uL (150-450); RBC 4.12 m/uL (3.80-5.40); RDW 14.2 % (11.5-15.5); WBC 7.6 k/uL (3.8-10.6)
[2022-07-30 20:19] LABS: HGB 11.4 gm/dL (11.4-16.0)
[2022-07-30 20:21] LABS: ALT 30 U/L (4-34); AST 33 U/L (14-36); African American GFR (CKD) >90 (>60 ml/min/1.73 sqM); Albumin 3.6 g/dL (3.5-5.0); Alkaline Phosphatase 114 U/L (38-126); Anion Gap 3 mmol/L; Blood Urea Nitrogen 13 mg/dL (7-17); Calcium 8.9 mg/dL (8.4-10.2); Carbon Dioxide 33 mmol/L (22-30); Chloride 103 mmol/L (98-107); Glucose 131 mg/dL (74-99); Magnesium 1.8 mg/dL (1.6-2.3); Non-African American GFR(CKD) 84 (>60 ml/min/1.73 sqM); Potassium 3.6 mmol/L (3.5-5.1); Sodium 139 mmol/L (137-145); Total Bilirubin 0.6 mg/dL (0.2-1.3); Total Protein 6.1 g/dL (6.3-8.2)
[2022-07-30 20:26] LABS: INR 0.9 (<1.2); Partial Thromboplastin Time 24.6 sec (22.0-30.0)
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
--- NOTE | 2022-07-30 21:11 | XR ---
EXAMINATION TYPE: XR chest 2V DATE OF EXAM: 07/30/2022 8:34 PM COMPARISON: Chest radiographs from 07/28/2022 TECHNIQUE: XR chest 2V Frontal and lateral views of the chest. CLINICAL INDICATION:Female, 72 years old with history of Chest Pain; FINDINGS: Lungs/Pleura: There is no evidence of pleural effusion, focal consolidation, or pneumothorax. Pulmonary vascularity: Pulmonary vascular congestion. Heart/mediastinum: Cardiomediastinal silhouette is enlarged and stable. Musculoskeletal: No acute osseous pathology. IMPRESSION: Cardiomegaly and mild pulmonary vascular congestion. Correlate with BNP for congestive heart failure.
[2022-07-30] MEDS ORDERED: NITROGLYCERIN SL TABS 0.4 MG TAB SUBLINGUAL PRN (21:23)
[2022-07-30] MEDS ORDERED: IPRATROPIUM-ALBUTEROL 3 ML NEB INHALATION PRN (22:06)
[2022-07-30] MEDS ORDERED: LOPERAMIDE 2 MG CAP PO PRN (22:06)
[2022-07-30] MEDS ORDERED: ONDANSETRON 4 MG/2 ML VIAL IVP PRN (22:07)
[2022-07-30] MEDS ORDERED: ACETAMINOPHEN IV (For NPO) 1,000 MG in EMPTY BAG 1 BAG IVPB ONE (22:30)
[2022-07-30] MEDS: PANTOPRAZOLE 40 MG/10 ML VIAL IVP SCH (22:43)
[2022-07-30] MEDS: METOCLOPRAMIDE 5 MG/ML 2 ML VIAL IVP PRN (22:45)
[2022-07-30] MEDS: oxyCODONE-APAP 10-325MG 1 EACH TAB PO PRN (23:16)
[2022-07-30] MEDS ORDERED: MIRTAZAPINE 15 MG TAB PO SCH (23:44)
[2022-07-30] MEDS ORDERED: MELATONIN 5 MG TABLET PO SCH (23:45)
[2022-07-30] MEDS: GABAPENTIN 300 MG CAP PO SCH (23:52)
[2022-07-30] MEDS: APIXABAN 5 MG TAB PO SCH (23:52)
[2022-07-30] MEDS: carvediloL 6.25 MG TAB PO SCH (23:52)
[2022-07-30] MEDS: NITROGLYCERIN OINT 1 INCH/GM PACKET TOPICAL SCH (23:53)
[2022-07-31 04:27] VITALS: TEMP 97.8
[2022-07-31] MEDS: METOCLOPRAMIDE 5 MG/ML 2 ML VIAL IVP PRN (05:36)
[2022-07-31] MEDS: NITROGLYCERIN OINT 1 INCH/GM PACKET TOPICAL SCH (05:37)
[2022-07-31] MEDS: oxyCODONE-APAP 10-325MG 1 EACH TAB PO PRN ×2 (05:37→11:38)
[2022-07-31] MEDS ORDERED: LEVOTHYROXINE 75 MCG TAB PO SCH (06:30)
[2022-07-31] MEDS ORDERED: PANTOPRAZOLE 40 MG TABLET PO SCH ×2 (07:30→21:00)
[2022-07-31 07:53] VITALS: BP 106/65; PULSE 78; RESP 19
[2022-07-31] MEDS ORDERED: APIXABAN 5 MG TAB PO SCH (08:00)
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
[2022-07-31 08:41] LABS: Chol/HDL Ratio 5.73 Ratio; LDL Cholesterol,Calculated 151.7 mg/dL (0.0-131.0)
[2022-07-31] MEDS: carvediloL 6.25 MG TAB PO SCH (08:58)
[2022-07-31] MEDS: APIXABAN 5 MG TAB PO SCH (08:58)
[2022-07-31] MEDS: GABAPENTIN 300 MG CAP PO SCH (08:59)
[2022-07-31] MEDS: PANTOPRAZOLE 40 MG/10 ML VIAL IVP SCH (08:59)
[2022-07-31] MEDS ORDERED: GABAPENTIN 300 MG CAP PO SCH (09:00)
[2022-07-31] MEDS ORDERED: SERTRALINE 25 MG TAB PO SCH (09:00)
[2022-07-31] MEDS ORDERED: TORSEMIDE 20 MG TAB PO SCH (09:00)
[2022-07-31] MEDS ORDERED: carvediloL 6.25 MG TAB PO SCH (09:00)
[2022-07-31] MEDS ORDERED: ASPIRIN 325 MG TAB PO SCH (09:00)
[2022-07-31] MEDS ORDERED: DAPAGLIFLOZIN PROPANEDIOL 10 MG TABLET PO SCH (09:00)
[2022-07-31] MEDS ORDERED: SPIRONOLACTONE 25 MG TAB PO SCH (09:00)
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
--- NOTE | 2022-07-31 15:35 | P.DS ---
Providers Date of admission: 07/30/22 21:23 Expected date of discharge: 07/31/22 Attending physician: Zoë Jaffe DO Consults: 07/30/22 21:23 Consult Physician Urgent Consulting Provider: [facility] Consult Reason/Comments: Chest pain Do you want consulting provider notified?: Yes Primary care physician: Jabier Evans MD Hospital Course: 72-year-old female presents emergency Department complaining of intermittent episodes of chest pain worse with deep breathing. Patient denies any radiation of the pain. Patient states it does cause her some shortness of breath. Patient also states she's had a couple episodes diarrhea and has been nauseated. Patient denies any fever chills or cough. Patient denies lightheadedness or dizziness. Patient denies any syncopal or near-syncopal episode. Evaluation in the emergency department revealed negative troponin. Rest of her laboratory findings were unremarkable. EKG showed normal sinus rhythm without acute changes. Chest x-ray showed vascular congestion but her BNP was normal. On admission troponin was cycled, remain negative. ACS was ruled out. Patient was seen by cardiology. No further cardiac workup was advised. Patient was cleared for discharge. She will be discharged home in a stable condition. Patient Condition at Discharge: Fair Plan - Discharge Summary New Discharge Prescriptions: Continue Levothyroxine Sodium [Synthroid] 150 mcg PO DAILY@0800 Apixaban [Eliquis] 5 mg PO BID@0800,1999 Gabapentin [Neurontin] 300 mg PO TID Mirtazapine [Remeron] 15 mg PO HS carvediloL [Coreg] 6.25 mg PO BID rOPINIRole HCL [Requip] 1 mg PO HS #30 tab Dapagliflozin Propanediol [Farxiga] 10 mg PO DAILY 30 Days #30 tab Loperamide [Imodium] 2 mg PO QID PRN cap PRN Reason: Diarrhea Omeprazole 20 mg PO BID@0800,2000 Torsemide [Demadex] 20 mg PO BID@0800,1500 Melatonin [Melatonin Dissolving Tablet] 10 mg PO HS@2000 Sertraline [Zoloft] 75 mg PO DAILY oxyCODONE-APAP 10-325MG [Percocet 10-325 mg] 1 tab PO QID PRN PRN Reason: Pain Ipratropium-Albuterol Nebulize [Duoneb 0.5 mg-3 mg/3 ml Soln] 3 ml INHALATION RT-QID PRN PRN Reason: Shortness Of Breath Spironolactone [Aldactone] 12.5 mg PO DAILY #14 tablet Discharge Medication List Levothyroxine Sodium [Synthroid] 150 mcg PO DAILY@0800 06/18/18 [History] Omeprazole 20 mg PO BID@08,199904/16/21 [History] Torsemide [Demadex] 20 mg PO BID@0800,1500 07/10/21 [History] Apixaban [Eliquis] 5 mg PO BID@799,199901/25/22 [History] Melatonin [Melatonin Dissolving Tablet] 10 mg PO HS@199901/25/22 [History] Sertraline [Zoloft] 75 mg PO DAILY 01/25/22 [History] Gabapentin [Neurontin] 300 mg PO TID 06/03/22 [History] oxyCODONE-APAP 10-325MG [Percocet 10-325 mg] 1 tab PO QID PRN 06/03/22 [History] Ipratropium-Albuterol Nebulize [Duoneb 0.5 mg-3 mg/3 ml Soln] 3 ml INHALATION RT-QID PRN 06/04/22 [History] Mirtazapine [Remeron] 15 mg PO HS 06/04/22 [History] carvediloL [Coreg] 6.25 mg PO BID 06/04/22 [History] rOPINIRole HCL [Requip] 1 mg PO HS #30 tab 06/05/22 [Rx] Dapagliflozin Propanediol [Farxiga] 10 mg PO DAILY 30 Days #30 tab 06/21/22 [Rx] Loperamide [Imodium] 2 mg PO QID PRN cap 06/21/22 [Rx] Spironolactone [Aldactone] 12.5 mg PO DAILY #14 tablet 07/29/22 [Rx] Follow up Appointment(s)/Referral(s): Jabier Evans MD [Primary Care Provider] - 1-2 days
[2022-07-31] MEDS ORDERED: MELATONIN 5 MG TABLET PO SCH (20:00)
[2022-07-31] MEDS ORDERED: MIRTAZAPINE 15 MG TAB PO SCH (21:00)
== END 2022-07-31 16:38 ==
LOC: EC 18:52 → 6NMEDSUR 21:23
PROVIDERS: ADMIT Internal Medicine; ATTEND Internal Medicine
DX: R07.89 Other chest pain (principal); R06.00 Dyspnea, unspecified; I25.10 Atherosclerotic heart disease of native coronary artery without angina pectoris; R10.9 Unspecified abdominal pain; R19.7 Diarrhea, unspecified; R60.0 Localized edema; R11.0 Nausea; I48.0 Paroxysmal atrial fibrillation; I11.0 Hypertensive heart disease with heart failure; I50.32 Chronic diastolic (congestive) heart failure; J44.9 Chronic obstructive pulmonary disease, unspecified; I25.2 Old myocardial infarction; G89.29 Other chronic pain; M54.9 Dorsalgia, unspecified; E03.9 Hypothyroidism, unspecified; F32.A Depression, unspecified; F41.9 Anxiety disorder, unspecified; E11.9 Type 2 diabetes mellitus without complications; E66.01 Morbid (severe) obesity due to excess calories; Z85.42 Personal history of malignant neoplasm of other parts of uterus; Z86.711 Personal history of pulmonary embolism; Z86.73 Personal history of transient ischemic attack (TIA), and cerebral infarction without residual deficits; Z85.41 Personal history of malignant neoplasm of cervix uteri; Z96.653 Presence of artificial knee joint, bilateral; Z96.642 Presence of left artificial hip joint; Z79.890 Hormone replacement therapy; Z79.899 Other long term (current) drug therapy; Z79.01 Long term (current) use of anticoagulants; Z79.84 Long term (current) use of oral hypoglycemic drugs; Z88.5 Allergy status to narcotic agent; Z88.6 Allergy status to analgesic agent; Z82.49 Family history of ischemic heart disease and other diseases of the circulatory system; Z82.3 Family history of stroke; Z80.1 Family history of malignant neoplasm of trachea, bronchus and lung; Z80.52 Family history of malignant neoplasm of bladder
CPT/HCPCS: 96375 ×2; 96376 ×2; 96374; 99285; 36415; 94760; 93005; 85379; 83880; 80061; 80053; 83735; 84484; 85025; 85610; 85730; 71046; G0378 ×2; J2765 ×2; J2405; C9113 ×2

== ENCOUNTER 2023-02-19 11:05 | Inpatient (IN) | payer OTHER ==
[2023-02-19] MEDS ORDERED: MORPHINE SULFATE 2 MG/ML SYRINGE IVP STA ×2 (11:42→14:44)
[2023-02-19] MEDS ORDERED: ONDANSETRON 4 MG/2 ML VIAL IVP STA (11:42)
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
--- NOTE | 2023-02-19 12:11 | XR ---
EXAMINATION TYPE: XR chest 2V DATE OF EXAM: 02/19/2023 COMPARISON: 07/30/2022 HISTORY: Shortness of breath TECHNIQUE: Frontal and lateral views of the chest are obtained. FINDINGS: Scattered senescent parenchymal changes noted. Hyperinflation compatible with COPD. No evidence for infiltrate. No evidence for atelectasis. Heart size is stable. Mediastinal structures are stable and grossly unremarkable. No evidence for hilar prominence. Degenerative changes dorsal spine. IMPRESSION: 1. No evidence for acute pulmonary disease.
[2023-02-19 12:40] LABS: Basophils % (A) 0 %; Eosinophils # (A) 0.2 k/uL (0-0.7); Eosinophils % (A) 1 %; HCT 35.7 % (34.0-46.0); Lymphocytes # (A) 0.9 k/uL (1.0-4.8); Lymphocytes % (A) 5 %; MCH 26.4 pg (25.0-35.0); MCHC 30.7 g/dL (31.0-37.0); MCV 86.1 fL (80.0-100.0); Mean Platelet Volume 7.1; Monocytes # (A) 0.6 k/uL (0-1.0); Monocytes % (A) 3 %; Neutrophils # (A) 15.7 k/uL (1.3-7.7); Neutrophils % (A) 90 %; Platelet Count 166 k/uL (150-450); RBC 4.15 m/uL (3.80-5.40); RDW 14.4 % (11.5-15.5); WBC 17.5 k/uL (3.8-10.6)
[2023-02-19 12:47] LABS: ALT 60 U/L (4-34); AST 34 U/L (14-36); African American GFR (CKD) 66 (>60 ml/min/1.73 sqM); Albumin 3.2 g/dL (3.5-5.0); Alkaline Phosphatase 88 U/L (38-126); Blood Urea Nitrogen 58 mg/dL (7-17); Calcium 8.3 mg/dL (8.4-10.2); Chloride 87 mmol/L (98-107); Glucose 135 mg/dL (74-99); Magnesium 2.7 mg/dL (1.6-2.3); Non-African American GFR(CKD) 57 (>60 ml/min/1.73 sqM); Potassium 3.3 mmol/L (3.5-5.1); Sodium 133 mmol/L (137-145); Total Bilirubin 1.4 mg/dL (0.2-1.3); Total Protein 5.6 g/dL (6.3-8.2)
[2023-02-19 12:50] LABS: Partial Thromboplastin Time 23.5 sec (22.0-30.0); Prothrombin Time 10.2 sec (9.0-12.0)
[2023-02-19 12:53] LABS: Anion Gap 9 mmol/L; Appearance,Urine Clear (Clear); Bilirubin,Urine Negative (Negative); Blood,Urine Negative (Negative); Color,Urine Yellow; Glucose,Urine (UA) 3+ (Negative); Ketones,Urine Negative (Negative); Leukocyte Esterase,Urine Negative (Negative); Nitrite,Urine Negative (Negative); Protein,Urine Negative (Negative); Specific Gravity,Urine 1.016 (1.001-1.035); Urobilinogen,Urine <2.0 mg/dL (<2.0)
[2023-02-19 12:58] LABS: Carbon Dioxide 37 mmol/L (22-30)
[2023-02-19] MEDS ORDERED: IPRATROPIUM-ALBUTEROL 3 ML NEB INHALATION PRN (17:31)
[2023-02-19] MEDS ORDERED: ONDANSETRON 4 MG/2 ML VIAL IVP PRN (17:31)
[2023-02-19] MEDS ORDERED: SODIUM CHLORIDE 0.9% 500 ML 500 ML IV ONE (17:47)
--- NOTE | 2023-02-19 18:12 | CT ---
EXAMINATION TYPE: CT chest wo con DATE OF EXAM: 02/19/2023 COMPARISON: Chest x-ray 02/19/2023 CTA chest 07/08/2022 HISTORY: aspiration CT DLP: 1060.6 mGycm. Automated Exposure Control for Dose Reduction was Utilized. TECHNIQUE: CT scan of the thorax is performed without IV contrast. FINDINGS: LUNGS: The lungs are grossly clear, there is no concerning parenchymal mass or nodule identified. Bib asilar subsegmental atelectasis. There is no pleural effusion or pneumothorax seen. The tracheobron chial tree is patent. MEDIASTINUM: Lack of IV contrast is noted to limit evaluation for mediastinal and especially hilar ad enopathy. There are no definitive greater than 1 cm hilar or mediastinal lymph nodes. Right IJ centr al venous catheter with distal tip terminating in the superior cavoatrial junction. No cardiomegaly o r pericardial effusion is seen. Incidentally noted aberrant right subclavian artery (series 201, image 21). Common origin of the righ t brachiocephalic and left common carotid arteries. OTHER: Mild atherosclerotic calcifications of the thoracic aorta. Osseous structures are intact. Hepa tic steatosis. IMPRESSION: 1. No acute cardiopulmonary process. 2. IJ central venous catheter in appropriate position. 3. Hepatic steatosis.
[2023-02-19] MEDS: HYDROmorphone 0.5 MG/0.5 ML SYRINGE IVP PRN ×2 (18:22→22:24)
--- NOTE | 2023-02-19 19:06 | HP ---
HISTORY AND PHYSICAL HISTORY OF PRESENT ILLNESS: A 72-year-old white female admitted for rehabilitation. Leg is tense and painful. She is unable to support herself. She needs to get into a alf for rehabilitation. wants her admitted. She did not do well at the other hospital recently and followed with the nurses. She was mildly nauseated, chronic headache. She was admitted for CHF and fluid overload, diuresis. She wears CPAP at night. She has elevated CO2 levels. HOME MEDICATIONS: 1. Demadex 20 b.i.d. 2. Synthroid 150 mcg daily. 3. Zoloft 50 daily. 4. Neurontin 300 t.i.d. 5. DuoNeb q.i.d. 6. Budesonide 0.5 b.i.d. 7. Incruse Ellipta daily. 8. Requip 2 mg at night. 9. Omeprazole 40 b.i.d. 10.Zofran p.r.n. 11.Aldactone 12.5 daily. 12.Albuterol updrafts daily. ALLERGIES: As mentioned above. REVIEW OF SYSTEMS: Fourteen-point review of systems is otherwise negative. PAST MEDICAL HISTORY: Atrial fibrillation, cancer, chest pain, angina, heart failure, COPD, CVA, TIA, myocardial infarction, osteoarthritis, pneumonia, PE, skin disorder, thyroid disorder, and history of anxiety and depression. PAST SURGICAL HISTORY: Adenoidectomy, bladder surgeries, cholecystectomy, heart catheterization, joint replacement/orthopedic surgery, and tonsillectomy. FAMILY HISTORY: Father, cancer. Mother, [place]. PHYSICAL EXAMINATION: GENERAL: Obese, white female. BMI is over 50. Well hydrated. HEENT: Normocephalic and atraumatic. MUSCULOSKELETAL: Range of motion is 3/5. PULMONARY: Fairly good breath sounds. No rales or wheezes. HEART: S1 and S2. ABDOMEN: Soft. SKIN: Dry. NEUROLOGIC: Cranial nerves are intact. PSYCHIATRIC: Fair mood and affect. VITAL SIGNS: Blood pressure 117/69, pulse 73, respiratory rate 16 to 18, O2 saturation 98%. ASSESSMENT: 1. Congestive heart failure. 2. Chronic obstructive pulmonary disease. 3. Generalized weakness. 4. Leukocytosis of unclear etiology, possible aspiration pneumonia. 5. Hypokalemia. 6. Hyponatremia. PLAN: Treat for infection. Consult Dr. Stiles. Please see further orders. Danie. MMODL / IJN: [id number] /
[2023-02-19] MEDS: PANTOPRAZOLE 40 MG TABLET PO SCH (21:23)
[2023-02-19] MEDS: carvediloL 6.25 MG TAB PO SCH (21:23)
[2023-02-19] MEDS: GABAPENTIN 300 MG CAP PO SCH (21:23)
[2023-02-19] MEDS: APIXABAN 5 MG TAB PO SCH (21:28)
[2023-02-19] MEDS: MELATONIN 5 MG TABLET PO SCH (22:24)
[2023-02-20] MEDS: LEVOTHYROXINE 75 MCG TAB PO SCH (05:50)
[2023-02-20] MEDS: FERROUS SULFATE 325 MG TAB PO SCH (05:50)
[2023-02-20] MEDS: HYDROmorphone 0.5 MG/0.5 ML SYRINGE IVP PRN ×2 (05:51→10:27)
[2023-02-20] MEDS: carvediloL 6.25 MG TAB PO SCH ×4 (08:18→23:29)
[2023-02-20] MEDS: PANTOPRAZOLE 40 MG TABLET PO SCH ×2 (08:18→21:23)
[2023-02-20] MEDS: GABAPENTIN 300 MG CAP PO SCH ×3 (08:18→21:22)
[2023-02-20] MEDS: SPIRONOLACTONE 25 MG TAB PO SCH (08:18)
[2023-02-20] MEDS: APIXABAN 5 MG TAB PO SCH ×2 (08:18→21:21)
[2023-02-20] MEDS: BUDESONIDE 0.5 MG/2 ML NEBU INHALATION SCH (08:35)
[2023-02-20] MEDS: IPRATROPIUM 0.5 MG/2.5 ML NEBU INHALATION SCH ×4 (08:36→20:08)
[2023-02-20] MEDS ORDERED: HYDROmorphone 1 MG/ML 1 ML SYRINGE IM PRN (11:18)
[2023-02-20] MEDS: bisacodyL 5 MG TABLET.DR PO PRN (11:18)
[2023-02-20] MEDS: HYDROmorphone 1 MG/ML 1 ML SYRINGE IVP PRN ×2 (15:11→21:20)
--- NOTE | 2023-02-20 16:42 | PN ---
PROGRESS NOTE A 72-year-old white female came in with CHF, diastolic heart failure, [id number]. She has IJ central venous catheter in proper position. See orders. Possibly give her IV Lasix. She is waiting for rehab placement. White count 17.5 with a left shift of 15.7. No signs of pneumonia. She has low sodium and low potassium. We will have to monitor potassium. She has high magnesium levels and elevated bilirubin. Urine looks negative. Not sure of her white count, so we are going to get Dr. Stiles involved. Continue with IV diuresis. Please see further orders and consults. MMODL / IJN: [id number] /
[2023-02-20 16:47] LABS: Basophils % (A) 0 %; Eosinophils # (A) 0.3 k/uL (0-0.7); Eosinophils % (A) 2 %; HCT 33.7 % (34.0-46.0); HGB 10.9 gm/dL (11.4-16.0); Lymphocytes # (A) 0.9 k/uL (1.0-4.8); Lymphocytes % (A) 6 %; MCH 28.1 pg (25.0-35.0); MCHC 32.4 g/dL (31.0-37.0); MCV 86.5 fL (80.0-100.0); Mean Platelet Volume 7.4; Monocytes # (A) 0.7 k/uL (0-1.0); Monocytes % (A) 5 %; Neutrophils # (A) 12.7 k/uL (1.3-7.7); Neutrophils % (A) 86 %; Platelet Count 143 k/uL (150-450); RDW 14.1 % (11.5-15.5); WBC 14.7 k/uL (3.8-10.6)
[2023-02-20 17:01] LABS: ALT 48 U/L (4-34); AST 25 U/L (14-36); African American GFR (CKD) 81 (>60 ml/min/1.73 sqM); Albumin 2.9 g/dL (3.5-5.0); Albumin/Globulin Ratio 1.3; Alkaline Phosphatase 85 U/L (38-126); Anion Gap 2 mmol/L; Blood Urea Nitrogen 29 mg/dL (7-17); Calcium 7.8 mg/dL (8.4-10.2); Chloride 90 mmol/L (98-107); Globulin 2.3 g/dL; Glucose 151 mg/dL (74-99); Non-African American GFR(CKD) 70 (>60 ml/min/1.73 sqM); Potassium 3.4 mmol/L (3.5-5.1); Sodium 132 mmol/L (137-145); Total Bilirubin 0.6 mg/dL (0.2-1.3); Total Protein 5.2 g/dL (6.3-8.2)
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
[2023-02-20 17:26] LABS: NT-Pro-B-Type Natriuretic Pept 461 pg/mL
[2023-02-20 17:50] LABS: Carbon Dioxide 37 mmol/L (22-30)
[2023-02-20] MEDS: SERTRALINE 50 MG TAB PO SCH (18:06)
[2023-02-20] MEDS: oxyCODONE-APAP 7.5-325MG 1 EACH TAB PO PRN (18:10)
[2023-02-20] MEDS: POTASSIUM CHLORIDE ER 20 MEQ TAB.ER PO SCH (21:21)
[2023-02-20] MEDS: MELATONIN 5 MG TABLET PO SCH (21:22)
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
[2023-02-21] MEDS: oxyCODONE-APAP 7.5-325MG 1 EACH TAB PO PRN ×3 (00:10→14:35)
[2023-02-21] MEDS: HYDROmorphone 1 MG/ML 1 ML SYRINGE IVP PRN ×5 (02:41→21:11)
[2023-02-21] MEDS: FERROUS SULFATE 325 MG TAB PO SCH (06:25)
[2023-02-21] MEDS: LEVOTHYROXINE 75 MCG TAB PO SCH (06:25)
[2023-02-21] MEDS: POTASSIUM CHLORIDE ER 20 MEQ TAB.ER PO SCH (08:25)
[2023-02-21] MEDS: SPIRONOLACTONE 25 MG TAB PO SCH (08:25)
[2023-02-21] MEDS: APIXABAN 5 MG TAB PO SCH ×2 (08:25→21:09)
[2023-02-21] MEDS: GABAPENTIN 300 MG CAP PO SCH ×3 (08:25→21:10)
[2023-02-21] MEDS: PANTOPRAZOLE 40 MG TABLET PO SCH ×2 (08:25→21:09)
--- NOTE | 2023-02-21 08:42 | P.PN ---
Subjective Progress Note Date: 02/21/23 The patient continues to complain of severe hip, knee, and ankle pain. She says her whole leg hurts. Objective - Vital Signs Vital signs: Vital Signs Temp 97.7 F 02/21/23 07:54 Pulse 81 02/21/23 07:54 Resp 18 02/21/23 07:54 BP 106/58 02/21/23 07:54 Pulse Ox 94 L 02/21/23 07:54 FiO2 Intake & Output 02/20/23 02/21/23 02/21/23 18:59 06:59 18:59 Weight 151 kg Other: Voiding Method External Catheter External Catheter External Catheter # Bowel Movements 1 - Exam The patient is resting in her bed eating her breakfast. She complains of severe pain throughout her left leg. Her left leg is obese. There are healed incisions over the hip and knee with no erythema or warmth. She has exquisite tenderness throughout the leg into the ankle and foot. - Labs CBC & Chem 7: 02/20/23 16:30 02/20/23 16:30 Labs: Abnormal Lab Results - Last 24 Hours (Table) 02/20/23 02/20/23 Range/Units 16:30 16:30 WBC 14.7 H (3.8-10.6) k/uL Hgb 10.9 L (11.4-16.0) gm/dL Hct 33.7 L (34.0-46.0) % Plt Count 143 L (150-450) k/uL Neutrophils # 12.7 H (1.3-7.7) k/uL Lymphocytes # 0.9 L (1.0-4.8) k/uL Sodium 132 L (137-145) mmol/L Potassium 3.4 L (3.5-5.1) mmol/L Chloride 90 L (98-107) mmol/L Carbon Dioxide 37 H (22-30) mmol/L BUN 29 H (7-17) mg/dL Glucose 151 H (74-99) mg/dL Calcium 7.8 L (8.4-10.2) mg/dL ALT 48 H (4-34) U/L Total Protein 5.2 L (6.3-8.2) g/dL Albumin 2.9 L (3.5-5.0) g/dL Assessment and Plan Assessment: Severe left leg pain History of prior total hip and knee replacement BMI 60.9 Plan: The patient is agreeable to get x-ray imaging of her hip, knee, ankle and foot. If this is normal we will sign off. The patient should follow up as an outpatient with her orthopedic surgeon who performed the total joint replacements, Dr. Pabon in [facility].
[2023-02-21] MEDS: IPRATROPIUM 0.5 MG/2.5 ML NEBU INHALATION SCH ×5 (09:21→17:59)
[2023-02-21] MEDS: BUDESONIDE 0.5 MG/2 ML NEBU INHALATION SCH (09:21)
[2023-02-21 09:23] LABS: Basophils # (A) 0.01 X 10*3/uL (0.00-0.10); Basophils % (A) 0.1 %; Eosinophils # (A) 0.33 X 10*3/uL (0.04-0.35); Eosinophils % (A) 2.8 %; HCT 32.2 % (37.2-46.3); HGB 9.9 d/dL (12.0-15.0); MCH 27.3 pg (27.0-32.0); MCHC 30.7 d/dL (32.0-37.0); Mean Platelet Volume 10.1 FL (9.5-12.2); Monocytes # (A) 0.99 X 10*3/uL (0.20-1.00); Monocytes % (A) 8.3 %; NRBC Per 100 WBC 0 X 10*3/uL (0.00-0.01); Neutrophils # (A) 9.32 X 10*3/uL (1.80-7.70); Neutrophils % (A) 77.6 %; Platelet Count 162 X 10*3/uL (140-440); RBC 3.62 X 10*6/uL (4.10-5.20); RDW 14.4 % (11.5-14.5); WBC 11.99 X 10*3/uL (4.50-10.00)
[2023-02-21 09:27] LABS: ALT 43 U/L (8-44); AST 19 U/L (13-35); Albumin 3.1 d/dL (3.8-4.9); Albumin/Globulin Ratio 1.63 Ratio (1.60-3.17); Alkaline Phosphatase 73 U/L (41-126); BUN/Creat Ratio 29.57 Ratio (12.00-20.00); Blood Urea Nitrogen 20.7 mg/dL (9.0-27.0); Calcium 8.5 mg/dL (8.7-10.3); Carbon Dioxide 36.2 mmol/L (21.6-31.8); Chloride 95 mmol/L (96-109); Globulin 1.9 d/dL (1.6-3.3); Glucose 110 mg/dL (70-110); Potassium 3.7 mmol/L (3.5-5.5); Sodium 139 mmol/L (135-145); Total Bilirubin 0.6 mg/dL (0.3-1.2)
[2023-02-21] MEDS: carvediloL 6.25 MG TAB PO SCH ×2 (09:29→21:15)
[2023-02-21] MEDS ORDERED: ALBUTEROL NEBULIZED 2.5 MG/3 ML INHALATION PRN (09:51)
--- NOTE | 2023-02-21 09:52 | XR ---
EXAMINATION TYPE: XR Hip LT and AP Pelvis DATE OF EXAM: 02/21/2023 9:48 AM INDICATION: Patient age:Female; 72 years old; Reason for study: pain; PHH. COMPARISON: Left hip radiograph 12/26/2015 TECHNIQUE: The left hip was examined in the frontal and lateral projections and a AP pelvis. FINDINGS: Limited examination due to patient's body habitus. Postsurgical changes from left total hip arthroplasty. Hardware appears intact with appropriate alignment. Mild osteoarthritic changes of the right hip.No evidence of any acute osseous pathology, joint dislocation, or soft tissue swelling. IMPRESSION: No acute osseous pathology. Postsurgical changes from left total hip arthroplasty. Hardware appears intact.
--- NOTE | 2023-02-21 09:54 | XR ---
EXAMINATION TYPE: XR knee complete LT DATE OF EXAM: 02/21/2023 COMPARISON: Bilateral knee radiographs 12/26/2015 HISTORY: Pain TECHNIQUE: 3 views of the left knee are submitted for evaluation. FINDINGS: Post surgical changes from left total knee arthroplasty. Hardware appears intact with appro priate alignment. There is no evidence for fracture or dislocation. Ankle mortise is intact. Soft tis sues are within normal limits. IMPRESSION: 1. No evidence for acute fracture. 2. Postsurgical changes from left total knee arthroplasty. Hardware appears intact with appropriate a lignment.
--- NOTE | 2023-02-21 09:58 | XR ---
EXAMINATION TYPE: XR ankle complete LT, XR foot complete LT DATE OF EXAM: 02/21/2023 COMPARISON: NONE HISTORY: Pain TECHNIQUE: Frontal, oblique, and lateral views of the left ankle. Frontal, lateral, and oblique views of the left foot. FINDINGS: There is no evidence for fracture or dislocation. Ankle mortise is intact. Mild degenerativ e changes of the ankle. Small plantar calcaneal enthesophyte. Hammertoe deformities of the first thro ugh fifth digits. Diffuse subcutaneous edema. This prominent along the dorsal midfoot/forefoot. IMPRESSION: 1. No evidence for acute fracture. 2. Mild degenerative changes ankle. 3. Hammertoe deformities. 4. Diffuse subcutaneous edema.
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
[2023-02-21] MEDS: FUROSEMIDE 10 MG/ML 2 ML VIAL IV SCH (12:50)
--- NOTE | 2023-02-21 14:10 | P.PN ---
Subjective Progress Note Date: 02/21/23 This patient is a 72-year-old female with multiple medical comorbidities and a BMI 59 who presented to [facility] emergency department yesterday for rehab placement. Patient states she was inpatient at [facility] for two weeks due to her heart. She was discharged about three days ago home under the care of her son. She states she has been having issues with walking at home due to left foot pain. She talked to her physician at [facility], who recommended she present to the ED for admission and rehab placement due to inability to care for herself and rehab placement. 02/21. Patient seen and examined. Complaining of shortness of breath on exertion and swelling of her extremities REVIEW OF SYSTEMS: CONSTITUTIONAL: No fever, no malaise,. CARDIOVASCULAR: No chest pain, no palpitations, no syncope. PULMONARY: As mentioned above GASTROINTESTINAL: No diarrhea, no nausea, no vomiting, no abdominal pain. NEUROLOGICAL: No headaches, no weakness, PHYSICAL EXAMINATION: GENERAL: The patient is alert and oriented x3, not in any acute distress. Well developed, well nourished. HEENT: Pupils are round and equally reacting to light. EOMI. No scleral icterus. No conjunctival pallor. Normocephalic, atraumatic. No pharyngeal erythema. No thyromegaly. CARDIOVASCULAR: S1 and S2 present. No murmurs, rubs, or gallops. PULMONARY: Chest is clear to auscultation, no wheezing or crackles. ABDOMEN: Soft, nontender, nondistended, normoactive bowel sounds. No palpable organomegaly. MUSCULOSKELETAL: No joint swelling or deformity. EXTREMITIES: 1+ pitting edema lower extremity bilaterally NEUROLOGICAL: Gross neurological examination did not reveal any focal deficits. SKIN: No rashes. Assessment and plan Leukocytosis Generalized weakness Hypothyroidism History of CHF History of COPD Monitor vital signs Monitor CBC Monitor CMP X-ray of left hip and knee ordered Continue pain management Continue Coreg, Eliquis Continue Synthroid PT and OT consulted orthopedic following ID following, don't recommend antibiotics at this time Follow-up on cardiology recommendations Labs and medication were reviewed.. Continue same treatment. Continue with symptomatic treatment. Resume home medication. Monitor labs and vitals. DVT and GI prophylaxis. Further recommendations as per clinical course of the patient Dictation was produced using [employer] dictation software. please excuse any grammatical, word or spelling errors. Objective - Vital Signs Vital signs: Vital Signs Temp 97.7 F 02/21/23 07:54 Pulse 81 02/21/23 07:54 Resp 18 02/21/23 07:54 BP 106/58 02/21/23 07:54 Pulse Ox 94 L 02/21/23 07:54 FiO2 Intake & Output 02/20/23 02/21/23 02/21/23 18:59 06:59 18:59 Weight 151 kg Other: Voiding Method External Catheter External Catheter External Catheter # Bowel Movements 1 - Labs CBC & Chem 7: 02/21/23 06:01 02/21/23 06:01 Labs: Abnormal Lab Results - Last 24 Hours (Table) 02/20/23 02/20/23 02/21/23 Range/Units 16:30 16:30 06:01 WBC 14.7 H 11.99 H (3.8-10.6) k/uL RBC 3.62 L (4.10-5.20) X 10*6/uL Hgb 10.9 L 9.9 L (11.4-16.0) gm/dL Hct 33.7 L 32.2 L (34.0-46.0) % MCHC 30.7 L (32.0-37.0) d/dL Plt Count 143 L (150-450) k/uL Neutrophils # 12.7 H 9.32 H (1.3-7.7) k/uL Lymphocytes # 0.9 L (1.0-4.8) k/uL Sodium 132 L (137-145) mmol/L Potassium 3.4 L (3.5-5.1) mmol/L Chloride 90 L (98-107) mmol/L Carbon Dioxide 37 H (22-30) mmol/L BUN 29 H (7-17) mg/dL BUN/Creatinine Ratio (12.00-20.00) Ratio Glucose 151 H (74-99) mg/dL Calcium 7.8 L (8.4-10.2) mg/dL ALT 48 H (4-34) U/L C-Reactive Protein (0.00-0.80) mg/dL Total Protein 5.2 L (6.3-8.2) g/dL Albumin 2.9 L (3.5-5.0) g/dL Procalcitonin (0.02-0.09) ng/mL 02/21/23 02/21/23 Range/Units 06:01 06:01 WBC (3.8-10.6) k/uL RBC (4.10-5.20) X 10*6/uL Hgb (11.4-16.0) gm/dL Hct (34.0-46.0) % MCHC (32.0-37.0) d/dL Plt Count (150-450) k/uL Neutrophils # (1.3-7.7) k/uL Lymphocytes # (1.0-4.8) k/uL Sodium (137-145) mmol/L Potassium (3.5-5.1) mmol/L Chloride 95 L (98-107) mmol/L Carbon Dioxide 36.2 H (22-30) mmol/L BUN (7-17) mg/dL BUN/Creatinine Ratio 29.57 H (12.00-20.00) Ratio Glucose (74-99) mg/dL Calcium 8.5 L (8.4-10.2) mg/dL ALT (4-34) U/L C-Reactive Protein 10.60 H (0.00-0.80) mg/dL Total Protein 5.0 L (6.3-8.2) g/dL Albumin 3.1 L (3.5-5.0) g/dL Procalcitonin 0.25 H (0.02-0.09) ng/mL
[2023-02-21] MEDS: SERTRALINE 50 MG TAB PO SCH (17:01)
[2023-02-21] MEDS ORDERED: ALPRAZolam 0.25 MG TAB PO STA (19:01)
[2023-02-21] MEDS: MELATONIN 5 MG TABLET PO SCH (21:09)
[2023-02-22] MEDS: HYDROmorphone 1 MG/ML 1 ML SYRINGE IVP PRN ×6 (01:20→23:41)
[2023-02-22] MEDS: oxyCODONE-APAP 7.5-325MG 1 EACH TAB PO PRN ×3 (04:42→18:21)
[2023-02-22] MEDS: FERROUS SULFATE 325 MG TAB PO SCH (06:20)
[2023-02-22] MEDS: LEVOTHYROXINE 75 MCG TAB PO SCH (06:20)
--- NOTE | 2023-02-22 08:05 | P.PN ---
Subjective Progress Note Date: 02/21/23 Principal diagnosis: Leukocytosis Patient is a 72-year-old female with a past medical history significant for atrial fibrillation heart failure with CVA TIA MD pneumonia history of recurrent UTI patient was recently admitted at [facility] with the patient did have Mackenzie catheter placement, now admitted to the hospital with left foot and leg pain and noticed to have elevated white count. On today's evaluation that is 02/21/2023 , the patient denies patient denies any, the patient is breathing comfortably on room air no chest pain shortness of breath, abdominal pain, still complaining of the pain to the left leg but no worsening Objective - Vital Signs Vital signs: Vital Signs Temp 97.7 F 02/21/23 07:54 Pulse 81 02/21/23 07:54 Resp 18 02/21/23 07:54 BP 99/63 02/21/23 14:35 Pulse Ox 94 L 02/21/23 07:54 FiO2 Intake & Output 02/20/23 02/21/23 02/21/23 18:59 06:59 18:59 Weight 151 kg Other: Voiding Method External Catheter External Catheter External Catheter # Bowel Movements 1 - Exam GENERAL DESCRIPTION: An elderly female lying in bed in no distress RESPIRATORY SYSTEM: Unlabored breathing , decreased breath sounds at bases HEART: S1 S2 regular rate and rhythm , ABDOMEN: Soft , no tenderness EXTREMITIES: No edema feet - Labs CBC & Chem 7: 02/21/23 06:01 02/21/23 06:01 Labs: Abnormal Lab Results - Last 24 Hours (Table) 02/20/23 02/20/23 02/21/23 Range/Units 16:30 16:30 06:01 WBC 14.7 H 11.99 H (3.8-10.6) k/uL RBC 3.62 L (4.10-5.20) X 10*6/uL Hgb 10.9 L 9.9 L (11.4-16.0) gm/dL Hct 33.7 L 32.2 L (34.0-46.0) % MCHC 30.7 L (32.0-37.0) d/dL Plt Count 143 L (150-450) k/uL Neutrophils # 12.7 H 9.32 H (1.3-7.7) k/uL Lymphocytes # 0.9 L (1.0-4.8) k/uL Sodium 132 L (137-145) mmol/L Potassium 3.4 L (3.5-5.1) mmol/L Chloride 90 L (98-107) mmol/L Carbon Dioxide 37 H (22-30) mmol/L BUN 29 H (7-17) mg/dL BUN/Creatinine Ratio (12.00-20.00) Ratio Glucose 151 H (74-99) mg/dL Calcium 7.8 L (8.4-10.2) mg/dL ALT 48 H (4-34) U/L C-Reactive Protein (0.00-0.80) mg/dL Total Protein 5.2 L (6.3-8.2) g/dL Albumin 2.9 L (3.5-5.0) g/dL Procalcitonin (0.02-0.09) ng/mL 02/21/23 02/21/23 Range/Units 06:01 06:01 WBC (3.8-10.6) k/uL RBC (4.10-5.20) X 10*6/uL Hgb (11.4-16.0) gm/dL Hct (34.0-46.0) % MCHC (32.0-37.0) d/dL Plt Count (150-450) k/uL Neutrophils # (1.3-7.7) k/uL Lymphocytes # (1.0-4.8) k/uL Sodium (137-145) mmol/L Potassium (3.5-5.1) mmol/L Chloride 95 L (98-107) mmol/L Carbon Dioxide 36.2 H (22-30) mmol/L BUN (7-17) mg/dL BUN/Creatinine Ratio 29.57 H (12.00-20.00) Ratio Glucose (74-99) mg/dL Calcium 8.5 L (8.4-10.2) mg/dL ALT (4-34) U/L C-Reactive Protein 10.60 H (0.00-0.80) mg/dL Total Protein 5.0 L (6.3-8.2) g/dL Albumin 3.1 L (3.5-5.0) g/dL Procalcitonin 0.25 H (0.02-0.09) ng/mL Assessment and Plan (1) Leukocytosis Current Visit: Yes Status: Acute Code(s): D72.829 - ELEVATED WHITE BLOOD CELL COUNT, UNSPECIFIED SNOMED Code(s): 577361901 Plan: 1patient with elevated white count in this patient presented back to the hospital with left foot and leg pain with no history of any trauma with a recent admission to the [facility] with similar symptoms patient did have elevated white count but no fever or other high white count did improve down to 48.7 yesterday without antibiotic therapy question of possible reactive patient did have negative a negative chest x-ray and CT of the chest she recently did have a Mackenzie catheter placement however no evidence of any swelling redness at the Mackenzie catheter site and no evidence of any cellulitis or joint swelling was noticed 2- blood culture are currently pending, inflammatory markers mildly elevated 3-hold on adding any empiric antibiotic therapy at this point as the patient does not look toxic and no obvious focus of infection, patient white count is trending down Dictation was produced using [email or web address] dictation software. please excuse any grammatical, word or spelling errors. Time with Patient: Less than 30
--- NOTE | 2023-02-22 09:14 | P.PN ---
Subjective Progress Note Date: 02/22/23 This patient is a 72-year-old female with multiple medical comorbidities and a BMI 59 who presented to [facility] emergency department yesterday for rehab placement. Patient states she was inpatient at [facility] for two weeks due to her heart. She was discharged about three days ago home under the care of her son. She states she has been having issues with walking at home due to left foot pain. She talked to her physician at [facility], who recommended she present to the ED for admission and rehab placement due to inability to care for herself and rehab placement. Patient's WBC was also elevated at admission. Orthopedics is consulted for evaluation of left leg pain. Patient is evaluated bedside this afternoon. She states her pain is localized to the left foot, and left thigh. She denies injuries or falls. Patient states she believes her pain is due to not using the left during her admission at [facility]. Patient states she worked with physical therapy earlier today and was able to ambulate with a walker. She ambulates at baseline without a walker. She states her pain has improved since admission. She takes Percocet at baseline due to back pain. No increases in back pain from her baseline. She denies numbness or tingling of the left lower extremity. She has no additional complaints. 02/22/23: Patient is examined bedside this morning with Dr. Baltazar. She continues to complain of pain diffusely throughout the left lower extremity. Patient was agreeable to x-rays yesterday. No new complaints. Objective - Vital Signs Vital signs: Vital Signs Temp 98.7 F 02/22/23 07:35 Pulse 64 02/22/23 07:35 Resp 16 02/22/23 07:35 BP 100/64 02/22/23 07:35 Pulse Ox 97 02/22/23 07:35 FiO2 Intake & Output 02/21/23 02/22/23 02/22/23 18:59 06:59 18:59 Output Total 600 200 Balance -600 -200 Output: Urine 600 200 Other: Voiding Method External Catheter External Catheter - Exam On examination, patient is sitting up in bed in no apparent distress. She is obese. She is alert and answers questions appropriately. Her head appears normocephalic and atraumatic. Focused examination of the left lower extremity is conducted. On inspection, there are no obvious deformities or signs of trauma. No erythema, warmth, swelling, open wounds. There is a healed incision at the anterior knee consistent with prior TKA. There is mild diffuse, nonspecific pain with palpation of the foot. Mild mild along the inner thigh. No pain with palpation of the lower leg, knee, hip. I am able to perform PROM of the hip, kn ee, ankle with minimal pain. Motor and sensory function intact left lower extremity. Left lower extremity is warm and well perfused. Calf non-tender. - Labs CBC & Chem 7: 02/21/23 06:01 02/21/23 06:01 Labs: Abnormal Lab Results - Last 24 Hours (Table) 02/21/23 02/21/23 02/21/23 Range/Units 06:01 06:01 06:01 WBC 11.99 H (4.50-10.00) X 10*3/uL RBC 3.62 L (4.10-5.20) X 10*6/uL Hgb 9.9 L (12.0-15.0) d/dL Hct 32.2 L (37.2-46.3) % MCHC 30.7 L (32.0-37.0) d/dL Neutrophils # 9.32 H (1.80-7.70) X 10*3/uL Chloride 95 L (96-109) mmol/L Carbon Dioxide 36.2 H (21.6-31.8) mmol/L BUN/Creatinine Ratio 29.57 H (12.00-20.00) Ratio Calcium 8.5 L (8.7-10.3) mg/dL C-Reactive Protein 10.60 H (0.00-0.80) mg/dL Total Protein 5.0 L (6.2-8.2) d/dL Albumin 3.1 L (3.8-4.9) d/dL Procalcitonin 0.25 H (0.02-0.09) ng/mL Assessment and Plan Assessment: Left foot pain Left thigh pain History left ALYSIA and left TKA at an outside facility Plan: - X-rays of the left hip, knee, ankle, and foot were obtained yesterday and were reviewed. No acute fractures or abnormalities identified. Left total hip arthroplasty and total knee arthroplasty stable with no acute findings. - Patient may ambulate with a walker and assistance. Continue physical therapy for mobilization. - We will sign off at this time. Recommend patient follow-up with her orthopedic surgeon for follow-up care on her left ALYSIA and left TKA.
[2023-02-22] MEDS: APIXABAN 5 MG TAB PO SCH ×2 (09:16→19:42)
[2023-02-22] MEDS: SPIRONOLACTONE 25 MG TAB PO SCH (09:17)
[2023-02-22] MEDS: POTASSIUM CHLORIDE ER 20 MEQ TAB.ER PO SCH (09:17)
[2023-02-22] MEDS: FUROSEMIDE 10 MG/ML 2 ML VIAL IV SCH (09:17)
[2023-02-22] MEDS: PANTOPRAZOLE 40 MG TABLET PO SCH ×2 (09:17→19:41)
[2023-02-22] MEDS: carvediloL 6.25 MG TAB PO SCH ×2 (09:17→19:42)
[2023-02-22] MEDS: GABAPENTIN 300 MG CAP PO SCH ×3 (09:20→19:42)
[2023-02-22] MEDS: IPRATROPIUM 0.5 MG/2.5 ML NEBU INHALATION SCH ×4 (09:29→20:24)
[2023-02-22] MEDS: BUDESONIDE 0.5 MG/2 ML NEBU INHALATION SCH (09:29)
[2023-02-22] MEDS: ONDANSETRON 4 MG TAB PO PRN (11:16)
--- NOTE | 2023-02-22 15:44 | P.PN ---
Subjective HISTORY OF PRESENTING ILLNESS This is a pleasant 72-year-old female past medical history significant for paroxysmal atrial fibrillation on Eliquis, congestive heart failure, hypertension, dyslipidemia and mild nonobstructive coronary artery disease with 30% stenosis in the mid LAD on cardiac cath in 2016, COPD, CVA. She does not follow with a build technician, last seen Dr. Cruz in 2012. We have been asked to see in consultation for heart failure. She is compliant with her Torsemide at home. She endorses being told she had an MN in 2006, no intervention performed. She states she has been told she has congestive heart failure. She was [facility] and treated for heart failure with some diuresis. She presented secondary to apparent mechanical fall and feeling her legs were weak. She denies any cough, fevers, chills. White blood cell count noted to be elevated as well as increased BUN to creatinine ratio. Her diuretics were held and BUN and creatinine improved. She states however she has been feeling more short of breath and believes she is having increased lower extremity edema. She appears to have chronic mild lower extremity edema. DIAGNOSTICS * Echocardiogram 06/2022 revealed normal LV systolic function. Technically suboptimal study * Cardiac catheterization in 2016 revealed 30% stenosis involving the mid LAD, no significant coronary artery disease, EF 60% 02/22 Patient seen and examined. Patient still having pain throughout the left lower extremity. Still feels she is short of breath. Was placed on IV Lasix yesterday with reported good urine output. No creatinine hasn't been resulted today. PHYSICAL EXAMINATION Vitals reviewed CONSTITUTIONAL: No apparent distress. HEENT: Head is normocephalic. Pupils are equal, round. Sclerae anicteric. Mucous membranes of the mouth are moist. No JVD. CHEST EXAMINATION: Lungs expiratory wheeze. No chest wall tenderness is noted on palpation or with deep breathing. HEART EXAMINATION: Regular rate and rhythm. S1, S2 heard. Systolic murmur at ba se, No gallops or rub. ABDOMEN: Soft, nontender. Positive bowel sounds. EXTREMITIES: 2+ peripheral pulses, trace bilateral lower extremity edema and no calf tenderness. NEUROLOGIC EXAMINATION: Patient is awake, alert and oriented x3. ASSESSMENT Acute on chronic heart failure with preserved ejection fraction Paroxysmal atrial fibrillation on Eliquis Hypertension Dyslipidemia Mild nonobstructive coronary artery disease with 30% stenosis in the mid LAD on cardiac cath in 2016 COPD History of CVA Mechanical fall PLAN Patient's BUN and creatinine had improved and we gave 2 doses of IV Lasix. Ap pears euvolemic with chronic lower extremity edema. Transition back to oral Lasix. No further recommendations from cardiology standpoint. Please call with any questions. Objective - Vital Signs Vital signs: Vital Signs Temp 98.5 F 02/22/23 13:24 Pulse 73 02/22/23 13:24 Resp 18 02/22/23 13:24 BP 100/57 02/22/23 13:24 Pulse Ox 94 L 02/22/23 13:24 FiO2 Intake & Output 02/21/23 02/22/23 02/22/23 18:59 06:59 18:59 Output Total 600 200 Balance -600 -200 Output: Urine 600 200 Other: Voiding Method External Catheter External Catheter External Catheter # Voids 1 # Bowel Movements 1 - Labs CBC & Chem 7: 02/21/23 06:01 02/21/23 06:01
--- NOTE | 2023-02-22 15:53 | P.PN ---
Subjective Progress Note Date: 02/22/23 This patient is a 72-year-old female with multiple medical comorbidities and a BMI 59 who presented to [facility] emergency department yesterday for rehab placement. Patient states she was inpatient at [facility] for two weeks due to her heart. She was discharged about three days ago home under the care of her son. She states she has been having issues with walking at home due to left foot pain. She talked to her physician at [facility], who recommended she present to the ED for admission and rehab placement due to inability to care for herself and rehab placement. 02/21. Patient seen and examined. Complaining of shortness of breath on exertion and swelling of her extremities 02/22. Patient seen and examined. Continues to complain of left knee pain REVIEW OF SYSTEMS: CONSTITUTIONAL: No fever, no malaise,. CARDIOVASCULAR: No chest pain, no palpitations, no syncope. PULMONARY: As mentioned above GASTROINTESTINAL: No diarrhea, no nausea, no vomiting, no abdominal pain. NEUROLOGICAL: No headaches, no weakness, PHYSICAL EXAMINATION: GENERAL: The patient is alert and oriented x3, not in any acute distress. Well developed, well nourished. HEENT: Pupils are round and equally reacting to light. EOMI. No scleral icterus. No conjunctival pallor. Normocephalic, atraumatic. No pharyngeal erythema. No thyromegaly. CARDIOVASCULAR: S1 and S2 present. No murmurs, rubs, or gallops. PULMONARY: Chest is clear to auscultation, no wheezing or crackles. ABDOMEN: Soft, nontender, nondistended, normoactive bowel sounds. No palpable organomegaly. MUSCULOSKELETAL: No joint swelling or deformity. EXTREMITIES: 1+ pitting edema lower extremity bilaterally NEUROLOGICAL: Gross neurological examination did not reveal any focal deficits. SKIN: No rashes. Assessment and plan Leukocytosis Generalized weakness Hypothyroidism History of CHF History of COPD Monitor vital signs Monitor CBC Monitor CMP X-ray of left hip and knee were reviewed by orthopedic, no evidence of any fracture, orthopedic. The patient for PT Continue pain management Continue Coreg, Eliquis Continue Synthroid ID following, don't recommend antibiotics at this time Follow-up on cardiology recommendations Follow-up on PTOT recommendations Labs and medication were reviewed.. Continue same treatment. Continue with symptomatic treatment. Resume home medication. Monitor labs and vitals. DVT and GI prophylaxis. Further recommendations as per clinical course of the patient Dictation was produced using [employer] dictation software. please excuse any grammatical, word or spelling errors. Objective - Vital Signs Vital signs: Vital Signs Temp 98.7 F 02/22/23 07:35 Pulse 64 02/22/23 07:35 Resp 16 02/22/23 07:35 BP 100/64 02/22/23 07:35 Pulse Ox 97 02/22/23 09:20 FiO2 Intake & Output 02/21/23 02/22/23 02/22/23 18:59 06:59 18:59 Output Total 600 200 Balance -600 -200 Output: Urine 600 200 Other: Voiding Method External Catheter External Catheter External Catheter # Voids 1 # Bowel Movements 1 - Labs CBC & Chem 7: 02/21/23 06:01 02/21/23 06:01
[2023-02-22] MEDS: SERTRALINE 50 MG TAB PO SCH (17:24)
[2023-02-22] MEDS: MELATONIN 5 MG TABLET PO SCH (19:42)
[2023-02-22] MEDS: NYSTATIN 100,000 UNIT/GM POWD 15 GM TOPICAL SCH (21:29)
[2023-02-23] MEDS: oxyCODONE-APAP 7.5-325MG 1 EACH TAB PO PRN (02:26)
[2023-02-23] MEDS: HYDROmorphone 1 MG/ML 1 ML SYRINGE IVP PRN ×5 (04:49→21:23)
[2023-02-23] MEDS: FERROUS SULFATE 325 MG TAB PO SCH (05:36)
[2023-02-23] MEDS: LEVOTHYROXINE 75 MCG TAB PO SCH (05:37)
[2023-02-23] MEDS: POTASSIUM CHLORIDE ER 20 MEQ TAB.ER PO SCH (08:36)
[2023-02-23] MEDS: GABAPENTIN 300 MG CAP PO SCH ×3 (08:36→21:20)
[2023-02-23] MEDS: carvediloL 6.25 MG TAB PO SCH ×2 (08:36→21:21)
[2023-02-23] MEDS: APIXABAN 5 MG TAB PO SCH ×2 (08:36→21:21)
[2023-02-23] MEDS: SPIRONOLACTONE 25 MG TAB PO SCH (08:36)
[2023-02-23] MEDS: PANTOPRAZOLE 40 MG TABLET PO SCH ×2 (08:36→21:21)
[2023-02-23] MEDS: NYSTATIN 100,000 UNIT/GM POWD 15 GM TOPICAL SCH ×2 (08:37→21:21)
[2023-02-23] MEDS: FUROSEMIDE 10 MG/ML 2 ML VIAL IV SCH (08:37)
[2023-02-23] MEDS: IPRATROPIUM 0.5 MG/2.5 ML NEBU INHALATION SCH ×4 (08:52→20:43)
[2023-02-23] MEDS: BUDESONIDE 0.5 MG/2 ML NEBU INHALATION SCH (08:52)
[2023-02-23] MEDS: bisacodyL 5 MG TABLET.DR PO PRN (09:00)
[2023-02-23] MEDS: BACLOFEN 10 MG TAB PO PRN (10:15)
[2023-02-23] MEDS: SERTRALINE 50 MG TAB PO SCH (17:13)
[2023-02-23] MEDS: MELATONIN 5 MG TABLET PO SCH (21:20)
[2023-02-24] MEDS: HYDROmorphone 1 MG/ML 1 ML SYRINGE IVP PRN ×5 (02:40→20:18)
[2023-02-24] MEDS: oxyCODONE-APAP 7.5-325MG 1 EACH TAB PO PRN ×2 (06:01→13:21)
[2023-02-24] MEDS: FERROUS SULFATE 325 MG TAB PO SCH (06:01)
[2023-02-24] MEDS: LEVOTHYROXINE 75 MCG TAB PO SCH (06:02)
[2023-02-24] MEDS: SPIRONOLACTONE 25 MG TAB PO SCH (07:51)
[2023-02-24] MEDS: carvediloL 6.25 MG TAB PO SCH ×2 (07:51→20:18)
[2023-02-24] MEDS: POTASSIUM CHLORIDE ER 20 MEQ TAB.ER PO SCH (07:51)
[2023-02-24] MEDS: bisacodyL 5 MG TABLET.DR PO PRN (07:51)
[2023-02-24] MEDS: APIXABAN 5 MG TAB PO SCH ×2 (07:51→20:17)
[2023-02-24] MEDS: GABAPENTIN 300 MG CAP PO SCH ×3 (07:51→20:18)
[2023-02-24] MEDS: FUROSEMIDE 10 MG/ML 2 ML VIAL IV SCH (07:51)
[2023-02-24] MEDS: PANTOPRAZOLE 40 MG TABLET PO SCH ×2 (07:51→20:17)
[2023-02-24] MEDS: NYSTATIN 100,000 UNIT/GM POWD 15 GM TOPICAL SCH ×2 (07:57→20:18)
[2023-02-24] MEDS: BUDESONIDE 0.5 MG/2 ML NEBU INHALATION SCH (08:18)
[2023-02-24] MEDS: IPRATROPIUM 0.5 MG/2.5 ML NEBU INHALATION SCH ×4 (08:18→20:35)
--- NOTE | 2023-02-24 08:44 | P.PN ---
Subjective Progress Note Date: 02/22/23 Principal diagnosis: Leukocytosis Patient is a 72-year-old female with a past medical history significant for atrial fibrillation heart failure with CVA TIA ID pneumonia history of recurrent UTI patient was recently admitted at [facility] with the patient did have Mackenzie catheter placement, now admitted to the hospital with left foot and leg pain and noticed to have elevated white count. On today's evaluation that is 02/22/2023 , the patient remains to be febrile, the patient is breathing comfortably on room air patient denies chest pain shortness of breath, abdominal pain, the patient has been complaining of the pain to the left leg but has shown improvement Objective - Vital Signs Vital signs: Vital Signs Temp 98.5 F 02/22/23 13:24 Pulse 73 02/22/23 13:24 Resp 18 02/22/23 13:24 BP 100/57 02/22/23 13:24 Pulse Ox 94 L 02/22/23 13:24 FiO2 Intake & Output 02/21/23 02/22/23 02/22/23 18:59 06:59 18:59 Output Total 600 200 Balance -600 -200 Output: Urine 600 200 Other: Voiding Method External Catheter External Catheter External Catheter # Voids 1 # Bowel Movements 1 - Exam GENERAL DESCRIPTION: An elderly female lying in bed in no distress RESPIRATORY SYSTEM: Unlabored breathing , decreased breath sounds at bases HEART: S1 S2 regular rate and rhythm , ABDOMEN: Soft , no tenderness EXTREMITIES: No edema feet - Labs CBC & Chem 7: 02/21/23 06:01 02/21/23 06:01 Assessment and Plan (1) Leukocytosis Current Visit: Yes Status: Acute Code(s): D72.829 - ELEVATED WHITE BLOOD CELL COUNT, UNSPECIFIED SNOMED Code(s): 465085759 Plan: 1patient with elevated white count in this patient presented back to the hospital with left foot and leg pain with no history of any trauma with a recent admission to the [facility] hospital with similar symptoms patient did have elevated white count but no fever or other high white count did improve down to 48.7 yesterday without antibiotic therapy question of possible reactive patient did have negative a negative chest x-ray and CT of the chest she recently did have a Mackenzie catheter placement however no evidence of any swelling redness at the Mackenzie catheter site and no evidence of any cellulitis or joint swelling was noticed 2- blood culture are currently pending, inflammatory markers mildly elevated 3Patient white count was done to 11.99 as of yesterday without any antibiotic therapy and she will monitor the patient closely off antibiotic therapy Dictation was produced using [employer] dictation software. please excuse any grammatical, word or spelling errors. Time with Patient: Less than 30
--- NOTE | 2023-02-24 08:45 | P.PN ---
Subjective Progress Note Date: 02/23/23 Principal diagnosis: Leukocytosis Patient is a 72-year-old female with a past medical history significant for atrial fibrillation heart failure with CVA TIA [place] pneumonia history of recurrent UTI patient was recently admitted at [facility] with the patient did have Mackenzie catheter placement, now admitted to the hospital with left foot and leg pain and noticed to have elevated white count. On today's evaluation that is 02/23/2023 , the patient continues to be febrile, the patient is breathing comfortably on room air patient denies chest pain shortness of breath, abdominal pain, the patient denies any worsening pain to the left leg or any weakness Objective - Vital Signs Vital signs: Vital Signs Temp 98.4 F 02/23/23 12:27 Pulse 64 02/23/23 12:27 Resp 16 02/23/23 12:27 BP 113/71 02/23/23 12:27 Pulse Ox 93 L 02/23/23 12:27 FiO2 Intake & Output 02/22/23 02/23/23 02/23/23 18:59 06:59 18:59 Intake Total 1790 Output Total 200 Balance -200 1790 Intake: Oral 1790 Output: Urine 200 Other: Voiding Method External Catheter External Catheter Bedside Commode External Catheter # Voids 1 3 # Bowel Movements 1 1 - Exam GENERAL DESCRIPTION: An elderly female lying in bed in no distress RESPIRATORY SYSTEM: Unlabored breathing , decreased breath sounds at bases HEART: S1 S2 regular rate and rhythm , ABDOMEN: Soft , no tenderness EXTREMITIES: No edema feet - Labs CBC & Chem 7: 02/21/23 06:01 02/21/23 06:01 Labs: Microbiology - Last 24 Hours (Table) 02/21/23 08:33 Blood Culture - Preliminary Blood Assessment and Plan (1) Leukocytosis Current Visit: Yes Status: Acute Code(s): D72.829 - ELEVATED WHITE BLOOD CELL COUNT, UNSPECIFIED SNOMED Code(s): 256002825 Plan: 1patient with elevated white count in this patient presented back to the hospital with left foot and leg pain with no history of any trauma with a recent admission to the [facility] with similar symptoms patient did have elevated white count but no fever or other high white count did improve down to 48.7 yesterday without antibiotic therapy question of possible reactive patient did have negative a negative chest x-ray and CT of the chest she recently did have a Mackenzie catheter placement however no evidence of any swelling redness at the Mackenzie catheter site and no evidence of any cellulitis or joint swelling was noticed 2- blood culture are currently pending, inflammatory markers mildly elevated 3Patient white count was done to 11.99 as of 02/21/2023 without any antibiotic therapy and she will monitor the patient closely off antibiotic therapy, we will repeat a CBC with a.m. lab Dictation was produced using [employer] dictation software. please excuse any grammatical, word or spelling errors. Time with Patient: Less than 30
--- NOTE | 2023-02-24 14:16 | P.PN ---
Subjective Progress Note Date: 02/24/23 Principal diagnosis: Leukocytosis Patient is a 72-year-old female with a past medical history significant for atrial fibrillation heart failure with CVA TIA CT pneumonia history of recurrent UTI patient was recently admitted at [facility] with the patient did have Mackenzie catheter placement, now admitted to the hospital with left foot and leg pain and noticed to have elevated white count. On today's evaluation that is 02/24/2023 , the patient remains to be febrile, the patient is breathing comfortably on room air patient denies chest pain shortness of breath, abdominal pain, the patient denies pain to the left leg /foot area is about the same denies any worsening or any weakness Objective - Vital Signs Vital signs: Vital Signs Temp 98.4 F 02/24/23 07:50 Pulse 70 02/24/23 07:50 Resp 16 02/24/23 07:50 BP 123/77 02/24/23 07:50 Pulse Ox 92 L 02/24/23 08:17 FiO2 21 02/24/23 08:17 Intake & Output 02/23/23 02/24/23 02/24/23 18:59 06:59 18:59 Output Total 400 350 Balance -400 -350 Output: Urine 400 350 Other: Voiding Method Bedside Commode External Catheter Bedside Commode External Catheter External Catheter - Exam GENERAL DESCRIPTION: An elderly female lying in bed in no distress RESPIRATORY SYSTEM: Unlabored breathing , decreased breath sounds at bases HEART: S1 S2 regular rate and rhythm , ABDOMEN: Soft , no tenderness EXTREMITIES: No edema feet - Labs CBC & Chem 7: 02/21/23 06:01 02/21/23 06:01 Labs: Microbiology - Last 24 Hours (Table) 02/21/23 08:33 Blood Culture - Preliminary Blood Assessment and Plan (1) Leukocytosis Current Visit: Yes Status: Acute Code(s): D72.829 - ELEVATED WHITE BLOOD CELL COUNT, UNSPECIFIED SNOMED Code(s): 437170872 Plan: 1patient with elevated white count in this patient presented back to the hospital with left foot and leg pain with no history of any trauma with a recent admission to the [facility] with similar symptoms patient did have elevated white count but no fever or other high white count did improve down to 48.7 yesterday without antibiotic therapy question of possible reactive patient did have negative a negative chest x-ray and CT of the chest she recently did have a Mackenzie catheter placement however no evidence of any swelling redness at the Mackenzie catheter site and no evidence of any cellulitis or joint swelling was noticed 2- blood culture are so far negative, inflammatory markers mildly elevated 3Patient white count was done to 11.99 as of 02/21/2023 without any antibiotic therapy we are waiting for the blood work from this morning and will monitor the patient closely off antibiotic therapy Dictation was produced using [employer] dictation software. please excuse any grammatical, word or spelling errors. Time with Patient: Less than 30
[2023-02-24 15:48] LABS: Basophils # (A) 0.02 X 10*3/uL (0.00-0.10); Basophils % (A) 0.3 %; Eosinophils # (A) 0.44 X 10*3/uL (0.04-0.35); Eosinophils % (A) 5.6 %; HCT 33.1 % (37.2-46.3); HGB 9.9 d/dL (12.0-15.0); Lymphocytes # (A) 0.94 X 10*3/uL (0.90-5.00); MCH 26.9 pg (27.0-32.0); MCHC 29.9 d/dL (32.0-37.0); MCV 89.9 FL (80.0-97.0); Mean Platelet Volume 9.7 FL (9.5-12.2); Monocytes # (A) 0.45 X 10*3/uL (0.20-1.00); Monocytes % (A) 5.7 %; NRBC Per 100 WBC 0 X 10*3/uL (0.00-0.01); Neutrophils # (A) 5.94 X 10*3/uL (1.80-7.70); Neutrophils % (A) 75.6 %; Platelet Count 175 X 10*3/uL (140-440); RBC 3.68 X 10*6/uL (4.10-5.20); WBC 7.85 X 10*3/uL (4.50-10.00)
[2023-02-24] MEDS: SERTRALINE 50 MG TAB PO SCH (16:13)
[2023-02-24 16:22] LABS: BUN/Creat Ratio 25.38 Ratio (12.00-20.00); Blood Urea Nitrogen 20.3 mg/dL (9.0-27.0); Calcium 8.9 mg/dL (8.7-10.3); Carbon Dioxide 32.4 mmol/L (21.6-31.8); Chloride 99 mmol/L (96-109); Glucose 136 mg/dL (70-110); Potassium 4.9 mmol/L (3.5-5.5); Sodium 141 mmol/L (135-145)
[2023-02-24] MEDS: MELATONIN 5 MG TABLET PO SCH (20:18)
--- NOTE | 2023-02-24 21:39 | PN ---
PROGRESS NOTE SUBJECTIVE: A 72-year-old white female. She is crying. She is upset. She is going to go to Physical Therapy because her son is going to lose his benefits, etc. She has been seen by orthopedic surgeon. She has been up, walking a few steps, but is not good enough to go home. OBJECTIVE: CARDIOVASCULAR: S1 and S2. LUNGS: Decreased breath sounds x4. She has been seen by Infectious Disease. White count is 11.99, hemoglobin is 9.9. Elevated white count. Negative chest x-ray. CT of the chest was negative. Blood culture is negative. She is due. She is going to possibly go home without infection medication for physical therapy, for which, she was also seen by the at home independent call center agent. They transitioned back to oral Lasix. Possible discharge to the rehab center. Prognosis is guarded. MMODL / IJN: [id number] /
[2023-02-25] MEDS: HYDROmorphone 1 MG/ML 1 ML SYRINGE IVP PRN ×5 (00:37→19:50)
[2023-02-25] MEDS: FERROUS SULFATE 325 MG TAB PO SCH (06:18)
[2023-02-25] MEDS: LEVOTHYROXINE 75 MCG TAB PO SCH (06:18)
[2023-02-25] MEDS: PANTOPRAZOLE 40 MG TABLET PO SCH ×2 (08:34→20:12)
[2023-02-25] MEDS: oxyCODONE-APAP 7.5-325MG 1 EACH TAB PO PRN ×2 (08:35→22:00)
[2023-02-25] MEDS: carvediloL 6.25 MG TAB PO SCH ×2 (08:35→20:12)
[2023-02-25] MEDS: APIXABAN 5 MG TAB PO SCH ×2 (08:35→20:12)
[2023-02-25] MEDS: SPIRONOLACTONE 25 MG TAB PO SCH (08:35)
[2023-02-25] MEDS: POTASSIUM CHLORIDE ER 20 MEQ TAB.ER PO SCH (08:35)
[2023-02-25] MEDS: GABAPENTIN 300 MG CAP PO SCH ×3 (08:36→20:12)
[2023-02-25] MEDS: FUROSEMIDE 10 MG/ML 2 ML VIAL IV SCH (08:36)
[2023-02-25] MEDS: NYSTATIN 100,000 UNIT/GM POWD 15 GM TOPICAL SCH (08:37)
[2023-02-25] MEDS: IPRATROPIUM 0.5 MG/2.5 ML NEBU INHALATION SCH ×4 (08:59→20:47)
[2023-02-25] MEDS: BUDESONIDE 0.5 MG/2 ML NEBU INHALATION SCH (08:59)
--- NOTE | 2023-02-25 15:22 | PN ---
PROGRESS NOTE SUBJECTIVE: The patient is up ambulating a little bit better. She does possibly rehab. She is ambulating a little bit better. She is saturating 94% on 2 L. OBJECTIVE: VITAL SIGNS: Blood pressure 107/63, respiratory rate 16 to 18, pulse 70s to 80s. CARDIOVASCULAR: S1, S2. LUNGS: Transmitted breath sounds. HEMATOLOGY: Negative Homans. PSYCHIATRIC: Fair mood and affect. ASSESSMENT AND PLAN: [id number], gait dysmobility due to left leg paresis, unclear etiology. PT/OT is improving her right-sided heart failure with preserved ejection fraction. Continue current treatments for breathing, heart failure etc. PT, OT, possible rehab placement going home in the next 24 hours. MMODL / IJN: [id number] /
[2023-02-25] MEDS: SERTRALINE 50 MG TAB PO SCH (15:48)
[2023-02-25] MEDS: MELATONIN 5 MG TABLET PO SCH (20:12)
[2023-02-26] MEDS: HYDROmorphone 1 MG/ML 1 ML SYRINGE IVP PRN ×6 (00:55→21:35)
[2023-02-26] MEDS: NYSTATIN 100,000 UNIT/GM POWD 15 GM TOPICAL SCH ×2 (00:58→09:37)
[2023-02-26] MEDS: oxyCODONE-APAP 7.5-325MG 1 EACH TAB PO PRN ×2 (04:09→20:13)
[2023-02-26] MEDS: LEVOTHYROXINE 75 MCG TAB PO SCH (05:31)
[2023-02-26] MEDS: FERROUS SULFATE 325 MG TAB PO SCH (05:31)
[2023-02-26] MEDS: BUDESONIDE 0.5 MG/2 ML NEBU INHALATION SCH (09:14)
[2023-02-26] MEDS: IPRATROPIUM 0.5 MG/2.5 ML NEBU INHALATION SCH ×4 (09:14→19:38)
[2023-02-26] MEDS: carvediloL 6.25 MG TAB PO SCH ×2 (09:33→20:13)
[2023-02-26] MEDS: GABAPENTIN 300 MG CAP PO SCH ×3 (09:33→20:13)
[2023-02-26] MEDS: PANTOPRAZOLE 40 MG TABLET PO SCH ×2 (09:33→20:12)
[2023-02-26] MEDS: SPIRONOLACTONE 25 MG TAB PO SCH (09:33)
[2023-02-26] MEDS: APIXABAN 5 MG TAB PO SCH ×2 (09:33→20:12)
[2023-02-26] MEDS: POTASSIUM CHLORIDE ER 20 MEQ TAB.ER PO SCH (09:33)
[2023-02-26] MEDS: FUROSEMIDE 10 MG/ML 2 ML VIAL IV SCH (09:34)
[2023-02-26 12:57] VITALS: BMI 65.4
[2023-02-26] MEDS: SERTRALINE 50 MG TAB PO SCH (17:35)
[2023-02-26] MEDS: MELATONIN 5 MG TABLET PO SCH (20:13)
[2023-02-26] MEDS: BACLOFEN 10 MG TAB PO PRN (21:36)
[2023-02-27] MEDS: NYSTATIN 100,000 UNIT/GM POWD 15 GM TOPICAL SCH ×2 (01:07→10:16)
[2023-02-27] MEDS: HYDROmorphone 1 MG/ML 1 ML SYRINGE IVP PRN ×3 (03:09→11:34)
[2023-02-27] MEDS: LEVOTHYROXINE 75 MCG TAB PO SCH (06:05)
[2023-02-27] MEDS: oxyCODONE-APAP 7.5-325MG 1 EACH TAB PO PRN ×2 (06:05→13:34)
[2023-02-27] MEDS: FERROUS SULFATE 325 MG TAB PO SCH (06:05)
[2023-02-27] MEDS: BUDESONIDE 0.5 MG/2 ML NEBU INHALATION SCH (07:52)
[2023-02-27] MEDS: IPRATROPIUM 0.5 MG/2.5 ML NEBU INHALATION SCH ×3 (07:52→14:51)
[2023-02-27] MEDS: FUROSEMIDE 10 MG/ML 2 ML VIAL IV SCH (09:57)
[2023-02-27] MEDS: APIXABAN 5 MG TAB PO SCH (10:14)
[2023-02-27] MEDS: carvediloL 6.25 MG TAB PO SCH (10:14)
[2023-02-27] MEDS: POTASSIUM CHLORIDE ER 20 MEQ TAB.ER PO SCH (10:14)
[2023-02-27] MEDS: SPIRONOLACTONE 25 MG TAB PO SCH (10:14)
[2023-02-27] MEDS: GABAPENTIN 300 MG CAP PO SCH (10:15)
[2023-02-27] MEDS: PANTOPRAZOLE 40 MG TABLET PO SCH (10:15)
[2023-02-27 11:22] VITALS: BP 109/61; PULSE 77; RESP 14; TEMP 97.6
[2023-02-27] MEDS: ONDANSETRON 4 MG TAB PO PRN (13:34)
--- NOTE | 2023-02-28 17:30 | P.DS ---
Providers Date of admission: 02/19/23 14:39 Attending physician: French Mckeon Consults: 02/20/23 15:00 Consult Physician Routine Consulting Provider: Caprice Stiles Consult Reason/Comments: leucocytosis Do you want consulting provider notified?: Yes 02/20/23 15:02 Consult Physician Routine Consulting Provider: Jori Boyd Reason/Comments: left leg weakness Do you want consulting provider notified?: Yes Primary care physician: Jabier Evans MD Hospital Course: Final Diagnosis Acute on chronic heart failure with preserved ejection fraction Paroxysmal atrial fibrillation on Eliquis Hypertension Dyslipidemia Mild nonobstructive coronary artery disease with 30% stenosis in the mid LAD on cardiac cath in 2016 COPD History of CVA Mechanical fall Hypokalemia Hyponatremia Morbid obesity BMI 65.6. Discharge Disposition Patient is stable for discharge home has been cleared by cardiology to folllow up in the office. Infectious disease recommending monitoring off anitbiotics and will see patient in the office. Recommend repeat labs in 2 to 3 days and see PCP in 1 to 2 days. Hospital Course Patient is a 72-year-old female with a past medical history significant for atrial fibrillation, heart failure,CVA TIA, [place], hypertension, dyslipidemia, and mild nonobstructive CAD. Patient has history of recurrent UTI patient was recently admitted at [facility] with the patient did have Mackenzie catheter placement, Patient [facility] also for chf. Patient comes in now for left foot and leg pain and noticed to have elevated white count. Patient reports being unable to ambulate and overall was admitted for evaluation for rehab placement. Patient was admitted to this hospital under medicine patient sees Dr Mckeon in the office. ID was also consulted, and orthopedics. Xrays were taken left lower extremity and the ankle foot xray of the left reveals no acute fracture, there are mild degenerative changes, hammertoe deformities, diffuse SQ emphysema. Orthopedics recommending conservative management and pain medication on board. PT/OT recommending subacute rehab for strengthening and patient has refused and would like to return home. Initial work up here shows sodium 133, potassium 3.3, BUN 58, creatinine 0.98, proBNP 461, procalcitonin level 0.25. ID felt patient can be monitored off anitbiotics. Cardiology diuresed here. She will repeat labs in 2 to 3 days and is stable today for discharge home. Follow up labs show White count is 7.85, hgb 9.9, sodium 141, potassium 4.9. Patient is denying chest pain, denying shortness of breath. No N/V/D. Has been minimally up ambulating and also has been transitioned back to oral lasix. She will be discharged home. Lungs are clear. Please see medication reconciliation for a list of current medication. Thank you for allowing us to participate in the care of this patient. The impression and plan of care has been dictated by Massiel Horvath, Nurse Practitioner as directed. Dr. Octavio MD I have performed a history and physical examination and medical decision making of this patient, discussed the same with the dictator, and agree with the dictators assessment and plan as written, documented as a scribe. Based on total visit time, I have performed more than 50% of this visit. Patient Condition at Discharge: Stable Plan - Discharge Summary Discharge Rx Participant: No New Discharge Prescriptions: New Ipratropium Nebulized [Atrovent Nebulized 0.2 MG/ML] 0.5 mg INHALATION RT-QID 30 Days #120 ml bisacodyL [Dulcolax] 5 mg PO DAILY PRN tab PRN Reason: Constipation Nystatin 100,000 Unit/gm Powd [Mycostatin Powder] 1 applic TOPICAL BID 30 Days #100 each Potassium Chloride ER [K-Dur 20] 20 meq PO DAILY 60 Days #60 tab Continue Levothyroxine Sodium [Synthroid] 150 mcg PO DAILY@0600 Apixaban [Eliquis] 5 mg PO BID@08,1999 Gabapentin [Neurontin] 300 mg PO TID@0800,1700,1999 carvediloL [Coreg] 6.25 mg PO BID@0800,1999 Clobetasol Propionate [Temovate 0.05% Cream] 1 applic TOPICAL BID PRN PRN Reason: rash, 14 day intervals Spironolactone [Aldactone] 12.5 mg PO DAILY@0800 Tiotropium 2.5 Mcg/Puff [Spiriva Respimat 2.5 Mcg] 1 puff INHALATION RT- DAILY@0800 Ferrous Sulfate [Iron (65 MG Elemental)] 325 mg PO DAILY@0600 Budesonide [Pulmicort] 0.5 mg INHALATION RT-DAILY diphenhydrAMINE & Zinc Cream [Benadryl Cream] 1 applic TOPICAL Q6H PRN PRN Reason: BACK OF HANDS, RASH/ITCHING Torsemide [Demadex] 20 mg PO BID@799,1999 Melatonin [Melatonin Dissolving Tablet] 10 mg PO HS@1999 Sertraline [Zoloft] 50 mg PO DAILY@170 Ipratropium-Albuterol Nebulize [Duoneb 0.5 mg-3 mg/3 ml Soln] 3 ml INHALATION RT-QID PRN PRN Reason: Shortness Of Breath rOPINIRole HCL [Requip] 2 mg PO HS@1999 Omeprazole 40 mg PO BID@799,1999 Ondansetron [Zofran] 4 mg PO BID PRN PRN Reason: Nausea Albuterol Nebulized [Ventolin Nebulized] 2.5 mg INHALATION RT-Q6H PRN PRN Reason: Shortness Of Breath oxyCODONE-APAP 7.5-325MG [Percocet 7.5-325 mg] 1 tab PO QID PRN PRN Reason: Pain Triamcinolone 0.1% Cream [Kenalog 0.1% Cream] 1 applicatio TOPICAL DAILY Discontinued Loperamide [Imodium] 2 - 4 mg PO DIRECTED PRN MDD 8 MG PRN Reason: Diarrhea Albuterol Inhaler [Ventolin Hfa Inhaler] 2 puff INHALATION RT-QID PRN PRN Reason: Shortness Of Breath Ondansetron Hcl 4mg/2ml Syringe 4 mg IV ONCE PRN PRN Reason: Nausea Umeclidinium [place] [Incruse Ellipta] 62.5 mcg INHALATION RT-DAILY@0800 Dapagliflozin Propanediol [Farxiga] 10 mg PO DAILY@0800 Doxepin HCl 6 mg PO HS PRN PRN Reason: SLEEP Discharge Medication List Levothyroxine Sodium [Synthroid] 150 mcg PO DAILY@0600 06/18/18 [History] Torsemide [Demadex] 20 mg PO BID@799,199907/10/21 [History] Apixaban [Eliquis] 5 mg PO BID@08,199901/25/22 [History] Melatonin [Melatonin Dissolving Tablet] 10 mg PO HS@199901/25/22 [History] Sertraline [Zoloft] 50 mg PO DAILY@17001/25/22 [History] Gabapentin [Neurontin] 300 mg PO TID@0800,170,199906/03/22 [History] Ipratropium-Albuterol Nebulize [Duoneb 0.5 mg-3 mg/3 ml Soln] 3 ml INHALATION RT-QID PRN 06/04/22 [History] carvediloL [Coreg] 6.25 mg PO BID@799,199906/04/22 [History] Albuterol Nebulized [Ventolin Nebulized] 2.5 mg INHALATION RT-Q6H PRN 02/19/23 [History] Budesonide [Pulmicort] 0.5 mg INHALATION RT-DAILY 02/19/23 [History] Clobetasol Propionate [Temovate 0.05% Cream] 1 applic TOPICAL BID PRN 02/19/23 [History] Ferrous Sulfate [Iron (65 MG Elemental)] 325 mg PO DAILY@0602/19/23 [History] Omeprazole 40 mg PO BID@799,199902/19/23 [History] Ondansetron [Zofran] 4 mg PO BID PRN 02/19/23 [History] Spironolactone [Aldactone] 12.5 mg PO DAILY@79902/19/23 [History] Tiotropium 2.5 Mcg/Puff [Spiriva Respimat 2.5 Mcg] 1 puff INHALATION RT- DAILY@79902/19/23 [History] Triamcinolone 0.1% Cream [Kenalog 0.1% Cream] 1 applicatio TOPICAL DAILY 02/19/23 [History] diphenhydrAMINE & Zinc Cream [Benadryl Cream] 1 applic TOPICAL Q6H PRN 02/19/23 [History] oxyCODONE-APAP 7.5-325MG [Percocet 7.5-325 mg] 1 tab PO QID PRN 02/19/23 [History] rOPINIRole HCL [Requip] 2 mg PO HS@199902/19/23 [History] Ipratropium Nebulized [Atrovent Nebulized 0.2 MG/ML] 0.5 mg INHALATION RT-QID 30 Days #120 ml 02/26/23 [Rx] Nystatin 100,000 Unit/gm Powd [Mycostatin Powder] 1 applic TOPICAL BID 30 Days #100 each 02/26/23 [Rx] Potassium Chloride ER [K-Dur 20] 20 meq PO DAILY 60 Days #60 tab 02/26/23 [Rx] bisacodyL [Dulcolax] 5 mg PO DAILY PRN tab 02/26/23 [Rx] Follow up Appointment(s)/Referral(s): Judd Batista DO [STAFF PHYSICIAN] - 03/05/23 1:30 pm ([address] is where you will go to this appointment and you will see Dr. Momin.) Jabier Evans MD [Primary Care Provider] - 03/02/23 (As previously discussed with [facility] ) Caprice Stiles MD [STAFF PHYSICIAN] - 1 Week (The office is closed please call thursday to schedule your follow up appointment.) Álvaro Baltazar MD [Medical Doctor] - 03/02/23 10:50 am Ambulatory/Diagnostic Orders: Basic Metabolic Panel [LAB.AMB] Time Frame: 3 Days, Location: None Selected Complete Blood Count w/diff [LAB.AMB] Time Frame: 3 Days, Location: None Selected Patient Instructions/Handouts: Potassium Chloride (By mouth), Nystatin (On the skin), Ipratropium/Albuterol (By breathing), Tunneled Central Lines (DC), Weakness (DC), Fall Prevention (DC) Activity/Diet/Wound Care/Special Instructions: Increase activity as tolerated. Regular diet as tolerated. Discharge Disposition: HOME WITH HOME HEALTH SERVICES
== END 2023-02-27 16:45 | disposition home health service (06) | DRG 291 ==
LOC: EC 11:05 → 5NMEDONC 14:39
PROVIDERS: ADMIT Family Medicine; ATTEND Family Medicine
DX: I11.0 Hypertensive heart disease with heart failure (principal); I50.33 Acute on chronic diastolic (congestive) heart failure; E87.1 Hypo-osmolality and hyponatremia; Z68.44 Body mass index [BMI] 60.0-69.9, adult; G83.14 Monoplegia of lower limb affecting left nondominant side; I25.10 Atherosclerotic heart disease of native coronary artery without angina pectoris; E03.9 Hypothyroidism, unspecified; E66.01 Morbid (severe) obesity due to excess calories; E78.5 Hyperlipidemia, unspecified; E87.6 Hypokalemia; J44.9 Chronic obstructive pulmonary disease, unspecified; I48.0 Paroxysmal atrial fibrillation; W18.30XA Fall on same level, unspecified, initial encounter; Z96.653 Presence of artificial knee joint, bilateral; I25.2 Old myocardial infarction; Z79.01 Long term (current) use of anticoagulants; Z79.51 Long term (current) use of inhaled steroids; Z79.84 Long term (current) use of oral hypoglycemic drugs; Z79.890 Hormone replacement therapy; Z79.899 Other long term (current) drug therapy; Z80.1 Family history of malignant neoplasm of trachea, bronchus and lung; Z82.49 Family history of ischemic heart disease and other diseases of the circulatory system; Z85.41 Personal history of malignant neoplasm of cervix uteri; Z86.73 Personal history of transient ischemic attack (TIA), and cerebral infarction without residual deficits; Z87.19 Personal history of other diseases of the digestive system; Z90.710 Acquired absence of both cervix and uterus; Z88.5 Allergy status to narcotic agent; Z88.8 Allergy status to other drugs, medicaments and biological substances
CPT/HCPCS: 36415; 71046; 71250; 73502; 80048; 80053; 81003; 83605; 83735; 83880; 84145; 84484; 85025; 85610; 85730; 86140; 87040; 93005; 94640; 94760; 96361; 96374; 96375; 96376; 99285

== ENCOUNTER 2023-03-08 16:26 | Inpatient (IN) | payer OTHER ==
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
[2023-03-08 17:13] LABS: Basophils % (A) 1 %; Eosinophils # (A) 0.5 k/uL (0-0.7); Eosinophils % (A) 9 %; HCT 32.3 % (34.0-46.0); HGB 10.8 gm/dL (11.4-16.0); Lymphocytes # (A) 1.2 k/uL (1.0-4.8); Lymphocytes % (A) 21 %; MCH 28.4 pg (25.0-35.0); MCHC 33.4 g/dL (31.0-37.0); Monocytes # (A) 0.4 k/uL (0-1.0); Monocytes % (A) 7 %; Neutrophils # (A) 3.5 k/uL (1.3-7.7); Neutrophils % (A) 60 %; RDW 15.6 % (11.5-15.5); WBC 5.7 k/uL (3.8-10.6)
[2023-03-08 17:14] LABS: Platelet Count 368 k/uL (150-450)
[2023-03-08 17:19] LABS: Partial Thromboplastin Time 23.5 sec (22.0-30.0); Prothrombin Time 10.4 sec (9.0-12.0)
[2023-03-08 17:24] LABS: ALT 21 U/L (4-34); AST 22 U/L (14-36); African American GFR (CKD) >90 (>60 ml/min/1.73 sqM); Albumin 3.4 g/dL (3.5-5.0); Alkaline Phosphatase 102 U/L (38-126); Anion Gap 10 mmol/L; Blood Urea Nitrogen 5 mg/dL (7-17); Calcium 9.1 mg/dL (8.4-10.2); Carbon Dioxide 22 mmol/L (22-30); Chloride 106 mmol/L (98-107); Glucose 106 mg/dL (74-99); Lipase 75 U/L (23-300); Magnesium 1.5 mg/dL (1.6-2.3); Non-African American GFR(CKD) >90 (>60 ml/min/1.73 sqM); Phosphorus 3.8 mg/dL (2.5-4.5); Potassium 3.4 mmol/L (3.5-5.1); Sodium 138 mmol/L (137-145); Total Bilirubin 0.7 mg/dL (0.2-1.3); Total Protein 6.1 g/dL (6.3-8.2)
[2023-03-08 17:33] LABS: NT-Pro-B-Type Natriuretic Pept 965 pg/mL
[2023-03-08] MEDS ORDERED: ONDANSETRON 4 MG/2 ML VIAL IVP STA (17:38)
[2023-03-08 18:20] LABS: C Reactive Protein 2.7 mg/dL (<1.0)
[2023-03-08] MEDS ORDERED: HYDROmorphone 1 MG/ML 1 ML SYRINGE IVP STA (18:46)
[2023-03-08] MEDS ORDERED: MORPHINE SULFATE 4 MG/ML SYRINGE IVP STA (20:06)
[2023-03-08] MEDS ORDERED: IPRATROPIUM-ALBUTEROL 3 ML NEB INHALATION STA (20:06)
[2023-03-08] MEDS ORDERED: SODIUM CHLORIDE 0.9% 1,000 ML IV STA (20:06)
[2023-03-08] MEDS ORDERED: SODIUM CHLORIDE 0.9% 500 ML 500 ML IV STA (20:06)
[2023-03-08] MEDS ORDERED: MORPHINE SULFATE 4 MG/ML SYRINGE IVP PRN (20:06)
[2023-03-08] MEDS ORDERED: ONDANSETRON 4 MG/2 ML VIAL IVP PRN (20:08)
[2023-03-08] MEDS ORDERED: NALOXONE 0.4 MG/ML 1 ML VIAL IV PRN (20:08)
[2023-03-09] MEDS: HYDROmorphone 1 MG/ML 1 ML SYRINGE IVP PRN ×5 (00:03→21:28)
[2023-03-09] MEDS ORDERED: IPRATROPIUM-ALBUTEROL 3 ML NEB INHALATION PRN (06:38)
[2023-03-09] MEDS ORDERED: bisacodyL 5 MG TABLET.DR PO PRN (06:38)
[2023-03-09] MEDS ORDERED: CLOBETASOL PROP 0.05% CR 15GM TOPICAL PRN (06:38)
[2023-03-09] MEDS ORDERED: diphenhydrAMINE 2% CREAM 28.4 GM TUBE TOPICAL PRN (06:38)
[2023-03-09] MEDS ORDERED: ALBUTEROL NEBULIZED 2.5 MG/3 ML INHALATION PRN (06:38)
[2023-03-09] MEDS ORDERED: NON FORMULARY DRUG (Tiotropium 2.5 Mcg/Puff 10 PUFF Each) INHALATION SCH (08:00)
[2023-03-09] MEDS: APIXABAN 5 MG TAB PO SCH ×2 (08:20→21:26)
[2023-03-09] MEDS: SPIRONOLACTONE 25 MG TAB PO SCH (08:20)
[2023-03-09] MEDS: POTASSIUM CHLORIDE ER 20 MEQ TAB.ER PO SCH (08:20)
[2023-03-09] MEDS: PANTOPRAZOLE 40 MG TABLET PO SCH ×2 (08:20→21:26)
[2023-03-09] MEDS: carvediloL 6.25 MG TAB PO SCH ×2 (08:20→21:26)
[2023-03-09] MEDS: oxyCODONE-APAP 7.5-325MG 1 EACH TAB PO PRN ×2 (08:29→15:18)
[2023-03-09] MEDS: GABAPENTIN 300 MG CAP PO SCH ×3 (08:29→21:26)
[2023-03-09] MEDS: TORSEMIDE 20 MG TAB PO SCH ×3 (09:03→21:31)
[2023-03-09] MEDS: MUPIROCIN 2% OINT 22 GM TUBE TOPICAL SCH ×2 (09:03→21:27)
[2023-03-09] MEDS: NYSTATIN 100,000 UNIT/GM POWD 15 GM TOPICAL SCH ×2 (09:03→21:27)
[2023-03-09] MEDS: BUDESONIDE 0.5 MG/2 ML NEBU INHALATION SCH (09:13)
[2023-03-09] MEDS: IPRATROPIUM 0.5 MG/2.5 ML NEBU INHALATION SCH ×4 (09:13→19:35)
[2023-03-09] MEDS: IPRATROPIUM-ALBUTEROL 3 ML NEB INHALATION PRN ×2 (09:13→16:03)
[2023-03-09] MEDS: SERTRALINE 50 MG TAB PO SCH (16:40)
[2023-03-09] MEDS: MELATONIN 5 MG TABLET PO SCH (21:26)
[2023-03-10] MEDS: oxyCODONE-APAP 7.5-325MG 1 EACH TAB PO PRN ×3 (00:25→18:44)
--- NOTE | 2023-03-10 01:26 | HP ---
HISTORY AND PHYSICAL HISTORY OF PRESENT ILLNESS: This 73-year-old female came in with nausea, vomiting, dehydration. No urination or diarrhea. Came in with shortness of breath. She had weakness of her legs on last admission. She was ambulating prior to going home. She comes in with weakness and fatigue, lack of energy, generalized abdominal pain. HOME MEDICATIONS: See list. ALLERGIES: See list. REVIEW OF SYSTEMS: A 14-point review of systems otherwise negative except for mentioned in HPI. PAST MEDICAL HISTORY: Atrial fibrillation, chest pain, angina, heart failure, diastolic, COPD, CVA, TIA, GI bleed, osteoarthritis, myocardial infarction, pulmonary embolism, renal disease, skin disorder, hypothyroidism, herniated disk, and history of C diff. PAST SURGICAL HISTORY: Appendectomy, cholecystectomy, bladder surgery, heart catheterization, hysterectomy, joint replacement, orthopedic surgery, tonsillectomy. FAMILY HISTORY: Father with cancer, CVA, hypertension and lupus in the father and mother lupus. PHYSICAL EXAMINATION: GENERAL: She is alert, oriented x3. ENDOCRINE: Obesity, BMI is over 40. HEENT: Normocephalic, atraumatic. LUNGS: Clear. CARDIOVASCULAR: S1, S2. EXTREMITIES: 2 to 3+ edema. BACK: Normal. NEUROLOGIC: Cranial nerves intact. PSYCH: Fair mood and affect. SKIN: Warm, dry, intact. VITAL SIGNS: Temp 98.4, pulse 103 to 104, blood pressure is 140s to 170s over 70s to 90s, O2 94 to 96. ASSESSMENT: Diarrhea, generalized weakness, dehydration, rule out C diff, acute on chronic anemia hypokalemia. GI consult, rehydrate. Prognosis guarded. Please see further orders. Check for C diff. MMODL / IJN: [id number] /
[2023-03-10] MEDS: HYDROmorphone 1 MG/ML 1 ML SYRINGE IVP PRN ×5 (05:34→23:04)
[2023-03-10] MEDS: FERROUS SULFATE 325 MG TAB PO SCH (05:35)
[2023-03-10] MEDS: LEVOTHYROXINE 75 MCG TAB PO SCH (05:35)
[2023-03-10] MEDS: SPIRONOLACTONE 25 MG TAB PO SCH (08:10)
[2023-03-10] MEDS: POTASSIUM CHLORIDE ER 20 MEQ TAB.ER PO SCH (08:10)
[2023-03-10] MEDS: carvediloL 6.25 MG TAB PO SCH ×2 (08:10→20:01)
[2023-03-10] MEDS: PANTOPRAZOLE 40 MG TABLET PO SCH ×2 (08:10→20:02)
[2023-03-10] MEDS: TORSEMIDE 20 MG TAB PO SCH ×2 (08:10→20:07)
[2023-03-10] MEDS: GABAPENTIN 300 MG CAP PO SCH ×3 (08:11→20:01)
[2023-03-10] MEDS: APIXABAN 5 MG TAB PO SCH ×2 (08:11→20:01)
[2023-03-10] MEDS: NYSTATIN 100,000 UNIT/GM POWD 15 GM TOPICAL SCH ×2 (08:12→23:05)
[2023-03-10] MEDS: MUPIROCIN 2% OINT 22 GM TUBE TOPICAL SCH ×2 (08:12→20:02)
[2023-03-10] MEDS: IPRATROPIUM 0.5 MG/2.5 ML NEBU INHALATION SCH ×4 (09:00→20:03)
[2023-03-10] MEDS: BUDESONIDE 0.5 MG/2 ML NEBU INHALATION SCH (09:00)
[2023-03-10 11:00] LABS: Basophils # (A) 0.04 X 10*3/uL (0.00-0.10); Basophils % (A) 0.7 %; Eosinophils # (A) 0.49 X 10*3/uL (0.04-0.35); Eosinophils % (A) 8.1 %; HCT 31.5 % (37.2-46.3); HGB 9.5 d/dL (12.0-15.0); Lymphocytes % (A) 19.9 %; MCH 27.4 pg (27.0-32.0); MCHC 30.2 d/dL (32.0-37.0); MCV 90.8 FL (80.0-97.0); Monocytes # (A) 0.61 X 10*3/uL (0.20-1.00); Monocytes % (A) 10.1 %; NRBC Per 100 WBC 0 X 10*3/uL (0.00-0.01); Neutrophils # (A) 3.57 X 10*3/uL (1.80-7.70); Neutrophils % (A) 59.4 %; Platelet Count 285 X 10*3/uL (140-440); RBC 3.47 X 10*6/uL (4.10-5.20); RDW 16.3 % (11.5-14.5); WBC 6.02 X 10*3/uL (4.50-10.00)
[2023-03-10 12:14] LABS: ALT 26 U/L (8-44); AST 22 U/L (13-35); Albumin 3.1 d/dL (3.8-4.9); Albumin/Globulin Ratio 1.72 Ratio (1.60-3.17); Alkaline Phosphatase 85 U/L (41-126); BUN/Creat Ratio 5.18 Ratio (12.00-20.00); Blood Urea Nitrogen 5.7 mg/dL (9.0-27.0); Calcium 7.9 mg/dL (8.7-10.3); Carbon Dioxide 20.7 mmol/L (21.6-31.8); Chloride 110 mmol/L (96-109); Globulin 1.8 d/dL (1.6-3.3); Glucose 110 mg/dL (70-110); Potassium 3.7 mmol/L (3.5-5.5); Sodium 143 mmol/L (135-145); Total Bilirubin 0.3 mg/dL (0.3-1.2); Total Protein 4.9 d/dL (6.2-8.2)
[2023-03-10] MEDS ORDERED: IOPAMIDOL CONTRAST (ORAL USE) VIAL PO PRN (13:43)
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
[2023-03-10] MEDS: SERTRALINE 50 MG TAB PO SCH (17:39)
[2023-03-10] MEDS: MELATONIN 5 MG TABLET PO SCH (20:01)
[2023-03-10] MEDS: methylPREDNISolone SOD SUCCI 40 MG/ML 1 ML VIAL IV SCH ×2 (20:02→23:04)
--- NOTE | 2023-03-11 01:01 | PN ---
PROGRESS NOTE SUBJECTIVE: A 73-year-old white female. She has had no diarrhea over the last 24 hours. She is saturating 92% on room air. She is to go to rehab center. She wants IV steroids for breathing and give her IV Solu-Medrol 40 q.8. OBJECTIVE: VITAL SIGNS: Temperature 98.7, pulse 88, respiratory rate 16 to 18, blood pressure 104 to 105 over 60s to 70s. GI: Soft. LUNGS: Scattered rhonchi and wheeze. CARDIOVASCULAR: S1, S2. HEMATOLOGY: Negative Homans. ASSESSMENT: Chronic obstructive pulmonary disease exacerbation, congestive heart failure diastolic, obesity. PROGNOSIS: Guarded. Continue current treatment. Follow up in next 24 to 48 hours. Make full admit. Sent to the rehab center. HARRIS / YADIRAN: [id number] /
[2023-03-11] MEDS: HYDROmorphone 1 MG/ML 1 ML SYRINGE IVP PRN ×6 (02:37→23:52)
[2023-03-11] MEDS: LEVOTHYROXINE 75 MCG TAB PO SCH (05:39)
[2023-03-11] MEDS: FERROUS SULFATE 325 MG TAB PO SCH (05:39)
[2023-03-11] MEDS: oxyCODONE-APAP 7.5-325MG 1 EACH TAB PO PRN ×3 (06:18→22:31)
[2023-03-11] MEDS: POTASSIUM CHLORIDE ER 20 MEQ TAB.ER PO SCH (08:13)
[2023-03-11] MEDS: SPIRONOLACTONE 25 MG TAB PO SCH (08:13)
[2023-03-11] MEDS: GABAPENTIN 300 MG CAP PO SCH ×3 (08:14→20:07)
[2023-03-11] MEDS: PANTOPRAZOLE 40 MG TABLET PO SCH ×2 (08:14→20:07)
[2023-03-11] MEDS: APIXABAN 5 MG TAB PO SCH ×2 (08:14→20:07)
[2023-03-11] MEDS: carvediloL 6.25 MG TAB PO SCH ×2 (08:14→20:07)
[2023-03-11] MEDS: methylPREDNISolone SOD SUCCI 40 MG/ML 1 ML VIAL IV SCH ×3 (08:14→22:32)
[2023-03-11] MEDS: TORSEMIDE 20 MG TAB PO SCH ×2 (08:15→20:07)
[2023-03-11] MEDS: IPRATROPIUM 0.5 MG/2.5 ML NEBU INHALATION SCH ×4 (08:41→19:30)
[2023-03-11] MEDS: BUDESONIDE 0.5 MG/2 ML NEBU INHALATION SCH (08:41)
[2023-03-11] MEDS: NYSTATIN 100,000 UNIT/GM POWD 15 GM TOPICAL SCH ×2 (09:00→20:08)
[2023-03-11] MEDS: MUPIROCIN 2% OINT 22 GM TUBE TOPICAL SCH ×2 (09:00→20:08)
[2023-03-11] MEDS: IPRATROPIUM-ALBUTEROL 3 ML NEB INHALATION PRN (12:01)
[2023-03-11] MEDS: SERTRALINE 50 MG TAB PO SCH (15:45)
--- NOTE | 2023-03-11 17:04 | P.PN ---
Subjective Progress Note Date: 03/11/23 CHIEF COMPLAINT: Weakness, nausea and diarrhea HISTORY OF PRESENT ILLNESS: Patient does complain of right-sided abdominal pain. However, she is tolerating diet. Diarrhea has resolved. She had a solid bowel movement today. She's had no nausea or vomiting. Patient was able to eat a sandwich without any problems. Patient refused the computed tomography scan of the abdomen and pelvis that was ordered yesterday. Afebrile. WBC 6.0 PHYSICAL EXAM: VITAL SIGNS: Reviewed GENERAL: Well-developed in no acute distress. HEENT: No sclera icterus. Extraocular movements grossly intact. Moist buccal mucosa. Head is atraumatic, normocephalic. Hears conversational speech. No nasal drainage. NECK: Supple without lymphadenopathy. CHEST: Non-labored respirations and equal bilateral excursions. CARDIOVASCULAR: Palpable 2+ radial pulses. ABDOMEN: Soft. Nondistended. MUSCULOSKELETAL: No clubbing or cyanosis. NEUROLOGIC: No focal or lateralizing signs. Cranial nerves II through XII grossly intact. PSYCH: Appropriate affect. Alert and oriented to person, place and time. SKIN: Well perfused. Good skin turgor. ASSESSMENT: 1. Chronic abdominal pain 2. Nausea and diarrhea resolved PLAN: -Continue regular diet -No surgical intervention planned -Surgical service will sign off. Please call with any questions or concerns Physician Look Out Tower Fire Watcher note has been reviewed by physician. Signing provider agrees with the documented findings, assessment, and plan of care. Objective - Vital Signs Vital signs: Vital Signs Temp 98.2 F 03/11/23 14:25 Pulse 96 03/11/23 14:25 Resp 18 03/11/23 14:25 BP 140/75 03/11/23 14:25 Pulse Ox 91 L 03/11/23 14:25 FiO2 Intake & Output 03/10/23 03/11/23 03/11/23 18:59 06:59 18:59 Output Total 700 1500 Balance -700 -1500 Output: Urine 700 1500 Other: Voiding Method External Catheter Diaper Diaper External Catheter External Catheter # Voids 1 # Bowel Movements 0 - Labs CBC & Chem 7: 03/10/23 06:28 03/10/23 06:28
[2023-03-11] MEDS: MELATONIN 5 MG TABLET PO SCH (20:07)
[2023-03-12] MEDS: HYDROmorphone 1 MG/ML 1 ML SYRINGE IVP PRN ×6 (02:54→20:31)
[2023-03-12] MEDS: oxyCODONE-APAP 7.5-325MG 1 EACH TAB PO PRN ×3 (05:59→22:33)
[2023-03-12] MEDS: LEVOTHYROXINE 75 MCG TAB PO SCH (05:59)
[2023-03-12] MEDS: FERROUS SULFATE 325 MG TAB PO SCH (06:00)
[2023-03-12] MEDS: BUDESONIDE 0.5 MG/2 ML NEBU INHALATION SCH (07:46)
[2023-03-12] MEDS: IPRATROPIUM 0.5 MG/2.5 ML NEBU INHALATION SCH ×4 (07:46→21:16)
[2023-03-12] MEDS: carvediloL 6.25 MG TAB PO SCH ×2 (07:58→20:30)
[2023-03-12] MEDS: GABAPENTIN 300 MG CAP PO SCH ×3 (07:58→20:30)
[2023-03-12] MEDS: POTASSIUM CHLORIDE ER 20 MEQ TAB.ER PO SCH (07:58)
[2023-03-12] MEDS: TORSEMIDE 20 MG TAB PO SCH ×2 (07:58→20:30)
[2023-03-12] MEDS: APIXABAN 5 MG TAB PO SCH ×2 (07:58→20:30)
[2023-03-12] MEDS: SPIRONOLACTONE 25 MG TAB PO SCH (07:58)
[2023-03-12] MEDS: NYSTATIN 100,000 UNIT/GM POWD 15 GM TOPICAL SCH ×2 (07:59→20:30)
[2023-03-12] MEDS: MUPIROCIN 2% OINT 22 GM TUBE TOPICAL SCH ×2 (07:59→20:30)
[2023-03-12] MEDS: PANTOPRAZOLE 40 MG TABLET PO SCH ×2 (07:59→20:30)
[2023-03-12] MEDS: methylPREDNISolone SOD SUCCI 40 MG/ML 1 ML VIAL IV SCH ×2 (07:59→15:20)
[2023-03-12 09:39] LABS: ALT 20 U/L (8-44); AST 11 U/L (13-35); Albumin 3.8 d/dL (3.8-4.9); Alkaline Phosphatase 84 U/L (41-126); BUN/Creat Ratio 22.44 Ratio (12.00-20.00); Blood Urea Nitrogen 20.2 mg/dL (9.0-27.0); Calcium 8.6 mg/dL (8.7-10.3); Carbon Dioxide 32.8 mmol/L (21.6-31.8); Chloride 99 mmol/L (96-109); Glucose 168 mg/dL (70-110); Potassium 4.5 mmol/L (3.5-5.5); Sodium 143 mmol/L (135-145); Total Bilirubin <0.2 mg/dL (0.3-1.2); Total Protein 5.8 d/dL (6.2-8.2)
[2023-03-12 10:07] LABS: Basophils # (A) 0.02 X 10*3/uL (0.00-0.10); Basophils % (A) 0.3 %; Eosinophils # (A) 0 X 10*3/uL (0.04-0.35); Eosinophils % (A) 0 %; HCT 33.2 % (37.2-46.3); HGB 10.4 d/dL (12.0-15.0); Lymphocytes # (A) 0.81 X 10*3/uL (0.90-5.00); Lymphocytes % (A) 10.4 %; MCH 27.5 pg (27.0-32.0); MCHC 31.3 d/dL (32.0-37.0); MCV 87.8 FL (80.0-97.0); Mean Platelet Volume 9.4 FL (9.5-12.2); Monocytes # (A) 0.45 X 10*3/uL (0.20-1.00); Monocytes % (A) 5.8 %; NRBC Per 100 WBC 0.02 X 10*3/uL (0.00-0.01); Neutrophils % (A) 79.4 %; Platelet Count 381 X 10*3/uL (140-440); RBC 3.78 X 10*6/uL (4.10-5.20); RBC Morphology Normal (Normal); RDW 15.1 % (11.5-14.5)
[2023-03-12] MEDS: SERTRALINE 50 MG TAB PO SCH (17:01)
[2023-03-12] MEDS: MELATONIN 5 MG TABLET PO SCH (20:30)
[2023-03-13] MEDS: methylPREDNISolone SOD SUCCI 40 MG/ML 1 ML VIAL IV SCH ×2 (00:03→08:46)
--- NOTE | 2023-03-13 01:28 | PN ---
PROGRESS NOTE SUBJECTIVE: A 73-year-old white female physical therapy. She is not ambulating at all today with physical therapy. OBJECTIVE: VITAL SIGNS: Reviewed. CARDIOVASCULAR: S1, S2. LUNGS: Clear. GI: Soft. HEMATOLOGY: Negative Homans. ASSESSMENT: Chronic obstructive pulmonary disease, diastolic heart failure, hypercapnic respiratory failure, morbid obesity, sleep apnea. PLAN: Continue to have current treatments, PT/OT due to left leg weakness . Prognosis is guarded. MMODL / IJN: [id number] /
[2023-03-13] MEDS: HYDROmorphone 1 MG/ML 1 ML SYRINGE IVP PRN ×3 (02:44→12:15)
[2023-03-13 03:27] VITALS: RESP 16
[2023-03-13] MEDS: oxyCODONE-APAP 7.5-325MG 1 EACH TAB PO PRN ×2 (06:30→14:42)
[2023-03-13] MEDS: LEVOTHYROXINE 75 MCG TAB PO SCH (06:30)
[2023-03-13] MEDS: FERROUS SULFATE 325 MG TAB PO SCH (06:30)
[2023-03-13] MEDS: BUDESONIDE 0.5 MG/2 ML NEBU INHALATION SCH (07:40)
[2023-03-13] MEDS: IPRATROPIUM 0.5 MG/2.5 ML NEBU INHALATION SCH ×3 (07:40→14:55)
[2023-03-13] MEDS: PANTOPRAZOLE 40 MG TABLET PO SCH (08:46)
[2023-03-13] MEDS: carvediloL 6.25 MG TAB PO SCH (08:46)
[2023-03-13] MEDS: TORSEMIDE 20 MG TAB PO SCH (08:47)
[2023-03-13] MEDS: POTASSIUM CHLORIDE ER 20 MEQ TAB.ER PO SCH (08:47)
[2023-03-13] MEDS: GABAPENTIN 300 MG CAP PO SCH (08:47)
[2023-03-13] MEDS: SPIRONOLACTONE 25 MG TAB PO SCH (08:47)
[2023-03-13] MEDS: NYSTATIN 100,000 UNIT/GM POWD 15 GM TOPICAL SCH (08:47)
[2023-03-13] MEDS: APIXABAN 5 MG TAB PO SCH (08:47)
[2023-03-13] MEDS: MUPIROCIN 2% OINT 22 GM TUBE TOPICAL SCH (08:48)
[2023-03-13 12:10] VITALS: BP 153/92; PULSE 77; TEMP 98.4
--- NOTE | 2023-03-13 14:14 | P.DS ---
Providers Date of admission: 03/08/23 20:09 Expected date of discharge: 03/13/23 Attending physician: French Mckeon Primary care physician: Jabier Evans MD Hospital Course: This is a pleasant 73-year-old patient, follows with Dr. French Mckeon.. Rather extensive medical history. Chronic stable medical conditions include atrial fibrillation, CAD with history of [place], primary osteoarthritis, hypothyroid, irritable bowel syndrome, urinary incontinence, peptic ulcer disease, hiatal hernia, hypothyroid generalized arthritis, peripheral neuropathy. Patient has a baseline does use a walker. Lives with her son 54 years of age. She also has home help. 03/13/2023: I'm rounding for Dr. French Mckeon. In bed. Tolerating diet. Had a bowel movement. Seen by surgery. No surgical intervention. On regular diet. Spoke to the machine adjuster leader case trim. We'll get discharged to rehab. Questions answered. Discussion and discharge planning more than 35 minutes Past medical history to include: Atrial fibrillation, congestive heart failure from diastolic dysfunction, myocardial infarction, osteoarthritis, pulmonary embolism, hypothyroid, irritable bowel syndrome, urinary incontinence, uterine and cervical cancer, peptic ulcer is original ulcer, Scales's esophagus, hiatal hernia, chronic low back pain from herniated disc, kidney stones, peripheral neuropathy, arthritis, uses a walker Social history: Lives with her 54-year-old son. Also has home help. Does use a walker. Nonsmoker Family history: Stroke, hypertension, [place], bladder and lung cancer Physical examination: VITAL SIGNS: 98.4, 77, 16, 153/92, 95% room air GENERAL:, reclining in bed, eating lunch, comfortable EYES: Pupils equal. Conjunctiva normal. HEENT: External appearance of nose and ears normal, oral cavity grossly normal. NECK: JVD not raised; masses not palpable. HEART: First and second heart sounds are normal; edema. LUNGS: Respiratory rate increased; decreased breath sounds ABDOMEN: Soft, nontender, liver spleen not palpable, no masses palpable. PSYCH: Alert and oriented x3; mood and affect anxious. MUSCULOSKELETAL: Evidence of OA in multiple joints INVESTIGATIONS, reviewed in the clinical context: White count 7.8 hemoglobin 10.4 platelets 381 sodium 143 potassium 4.5 creatinine 0.9 ProBNP 965 Assessment and plan: -Acute and chronic medical debility. Patient going to rehab. PTOT. -Acute on Chronic congestive heart failure from diastolic dysfunction EF 55-60%. -COPD in a nonsmoker - irritable bowel syndrome -Paroxysmal atrial fibrillation, currently in sinus rhythm -Hypothyroid -Peripheral neuropathy Neurontin -Restless leg syndrome requip 0.25 mg twice a day -Chronic gait dysfunction, uses a walker to baseline -Chronic lower extremity nonpitting edema -Chronic insomnia from multiple medical problems -GERD, peptic ulcer disease Omeprazole -Chronic low back pain from herniated disc and osteoarthritis oxycodone 10 every 4 when necessary. -Depression Zoloft Disposition: [place] Plan - Discharge Summary Discharge Rx Participant: No New Discharge Prescriptions: New predniSONE 10 mg PO DAILY #30 tab Continue Levothyroxine Sodium [Synthroid] 150 mcg PO DAILY@0600 Apixaban [Eliquis] 5 mg PO BID@0800,1999 carvediloL [Coreg] 6.25 mg PO BID@0800,1999 Clobetasol Propionate [Temovate 0.05% Cream] 1 applic TOPICAL BID PRN PRN Reason: rash, 14 day intervals Spironolactone [Aldactone] 12.5 mg PO DAILY@0800 Ferrous Sulfate [Iron (65 MG Elemental)] 325 mg PO DAILY@0600 Budesonide [Pulmicort] 0.5 mg INHALATION RT-DAILY diphenhydrAMINE & Zinc Cream [Benadryl Cream] 1 applic TOPICAL Q6H PRN PRN Reason: BACK OF HANDS, RASH/ITCHING Ipratropium Nebulized [Atrovent Nebulized 0.2 MG/ML] 0.5 mg INHALATION RT-QID 30 Days #120 ml bisacodyL [Dulcolax] 5 mg PO DAILY PRN tab PRN Reason: Constipation Nystatin 100,000 Unit/gm Powd [Mycostatin Powder] 1 applic TOPICAL BID 30 Days #100 each Mupirocin 2% Oint [Bactroban 2% Oint] 1 applic TOPICAL BID oxyCODONE-APAP 7.5-325MG [Percocet 7.5-325 mg] 1 tab PO QID PRN #12 tab PRN Reason: Pain Torsemide [Demadex] 20 mg PO BID@0800,2000 Melatonin [Melatonin Dissolving Tablet] 10 mg PO HS@1999 Sertraline [Zoloft] 50 mg PO DAILY@1700 Ipratropium-Albuterol Nebulize [Duoneb 0.5 mg-3 mg/3 ml Soln] 3 ml INHALATION RT-QID PRN PRN Reason: Shortness Of Breath rOPINIRole HCL [Requip] 2 mg PO HS@1999 Omeprazole 40 mg PO BID@799,1999 Ondansetron [Zofran] 4 mg PO BID PRN PRN Reason: Nausea Albuterol Nebulized [Ventolin Nebulized] 2.5 mg INHALATION RT-Q6H PRN PRN Reason: Shortness Of Breath Triamcinolone 0.1% Cream [Kenalog 0.1% Cream] 1 applicatio TOPICAL DAILY Potassium Chloride ER [K-Dur 20] 20 meq PO DAILY 60 Days #60 tab Semaglutide [Ozempic] 0.25 mg SQ DIRECTED Gabapentin [Neurontin] 300 mg PO TID@0800, #9 cap Discontinued Tiotropium 2.5 Mcg/Puff [Spiriva Respimat 2.5 Mcg] 1 puff INHALATION RT- DAILY@0800 Discharge Medication List Levothyroxine Sodium [Synthroid] 150 mcg PO DAILY@0606/18/18 [History] Torsemide [Demadex] 20 mg PO BID@08,199907/10/21 [History] Apixaban [Eliquis] 5 mg PO BID@799,199901/25/22 [History] Melatonin [Melatonin Dissolving Tablet] 10 mg PO HS@199901/25/22 [History] Sertraline [Zoloft] 50 mg PO DAILY@169901/25/22 [History] Ipratropium-Albuterol Nebulize [Duoneb 0.5 mg-3 mg/3 ml Soln] 3 ml INHALATION RT-QID PRN 06/04/22 [History] carvediloL [Coreg] 6.25 mg PO BID@799,199906/04/22 [History] Albuterol Nebulized [Ventolin Nebulized] 2.5 mg INHALATION RT-Q6H PRN 02/19/23 [History] Budesonide [Pulmicort] 0.5 mg INHALATION RT-DAILY 02/19/23 [History] Clobetasol Propionate [Temovate 0.05% Cream] 1 applic TOPICAL BID PRN 02/19/23 [History] Ferrous Sulfate [Iron (65 MG Elemental)] 325 mg PO DAILY@0602/19/23 [History] Omeprazole 40 mg PO BID@799,199902/19/23 [History] Ondansetron [Zofran] 4 mg PO BID PRN 02/19/23 [History] Spironolactone [Aldactone] 12.5 mg PO DAILY@0800 02/19/23 [History] Triamcinolone 0.1% Cream [Kenalog 0.1% Cream] 1 applicatio TOPICAL DAILY 02/19/23 [History] diphenhydrAMINE & Zinc Cream [Benadryl Cream] 1 applic TOPICAL Q6H PRN 02/19/23 [History] rOPINIRole HCL [Requip] 2 mg PO HS@199902/19/23 [History] Ipratropium Nebulized [Atrovent Nebulized 0.2 MG/ML] 0.5 mg INHALATION RT-QID 30 Days #120 ml 02/26/23 [Rx] Nystatin 100,000 Unit/gm Powd [Mycostatin Powder] 1 applic TOPICAL BID 30 Days #100 each 02/26/23 [Rx] Potassium Chloride ER [K-Dur 20] 20 meq PO DAILY 60 Days #60 tab 02/26/23 [Rx] bisacodyL [Dulcolax] 5 mg PO DAILY PRN tab 02/26/23 [Rx] Mupirocin 2% Oint [Bactroban 2% Oint] 1 applic TOPICAL BID 03/08/23 [History] Semaglutide [Ozempic] 0.25 mg SQ DIRECTED 03/08/23 [History] Gabapentin [Neurontin] 300 mg PO TID@0800,1699,1999 #9 cap 03/13/23 [Rx] oxyCODONE-APAP 7.5-325MG [Percocet 7.5-325 mg] 1 tab PO QID PRN #12 tab 03/13/23 [Rx] predniSONE 10 mg PO DAILY #30 tab 03/13/23 [Rx] Follow up Appointment(s)/Referral(s): French Mckeon MD [STAFF PHYSICIAN] - 1 Week Jabier Evans MD [Primary Care Provider] - 1-2 days Activity/Diet/Wound Care/Special Instructions: hold ozempic when at [facility]
[2023-03-16] MEDS ORDERED: NON FORMULARY DRUG (Semaglutide [Ozempic] 0.25 MG/0.2 ML Each) SQ SCH (07:00)
== END 2023-03-13 15:51 | DRG 391 ==
LOC: EC 16:26 → 6NMEDSUR 20:09 → OBSVTOIN 20:09 → 6NMEDSUR 21:43
PROVIDERS: ADMIT Family Medicine; ATTEND Family Medicine
DX: K58.0 Irritable bowel syndrome with diarrhea (principal); I50.33 Acute on chronic diastolic (congestive) heart failure; J44.1 Chronic obstructive pulmonary disease with (acute) exacerbation; Z68.44 Body mass index [BMI] 60.0-69.9, adult; I11.0 Hypertensive heart disease with heart failure; I25.2 Old myocardial infarction; D64.9 Anemia, unspecified; F32.A Depression, unspecified; E03.9 Hypothyroidism, unspecified; E66.01 Morbid (severe) obesity due to excess calories; G89.29 Other chronic pain; G62.9 Polyneuropathy, unspecified; G25.81 Restless legs syndrome; F51.04 Psychophysiologic insomnia; I48.0 Paroxysmal atrial fibrillation; K21.9 Gastro-esophageal reflux disease without esophagitis; K22.70 Barrett's esophagus without dysplasia; K44.9 Diaphragmatic hernia without obstruction or gangrene; R32 Unspecified urinary incontinence; M47.9 Spondylosis, unspecified; Z87.442 Personal history of urinary calculi; E86.0 Dehydration; Z28.21 Immunization not carried out because of patient refusal; R26.9 Unspecified abnormalities of gait and mobility; Z86.711 Personal history of pulmonary embolism; Z86.73 Personal history of transient ischemic attack (TIA), and cerebral infarction without residual deficits; Z87.11 Personal history of peptic ulcer disease; E87.6 Hypokalemia; Z79.890 Hormone replacement therapy; Z79.51 Long term (current) use of inhaled steroids; Z79.899 Other long term (current) drug therapy; Z82.3 Family history of stroke; Z82.49 Family history of ischemic heart disease and other diseases of the circulatory system; Z85.118 Personal history of other malignant neoplasm of bronchus and lung; Z86.19 Personal history of other infectious and parasitic diseases; Z87.19 Personal history of other diseases of the digestive system; Z85.41 Personal history of malignant neoplasm of cervix uteri; Z90.710 Acquired absence of both cervix and uterus; Z96.653 Presence of artificial knee joint, bilateral; Z88.6 Allergy status to analgesic agent; Z88.5 Allergy status to narcotic agent; Z88.8 Allergy status to other drugs, medicaments and biological substances; Z79.01 Long term (current) use of anticoagulants; Z91.410 Personal history of adult physical and sexual abuse
CPT/HCPCS: 36415; 51798; 80053; 83690; 83735; 83880; 84100; 84484; 85025; 85610; 85730; 86140; 93005; 94640; 94760

== ENCOUNTER 2023-04-07 20:32 | Emergency (ER) | payer MEDICARE, OTHER ==
[2023-04-07 20:39] VITALS: RESP 18; TEMP 98.9
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
[2023-04-07] MEDS ORDERED: HYDROmorphone 1 MG/ML 1 ML SYRINGE IM STA (21:57)
[2023-04-07 23:25] VITALS: BP 134/89; PULSE 85
--- NOTE | 2023-04-07 23:37 | XR ---
EXAM: XR Lumbosacral Spine, 2 or 3 Views CLINICAL HISTORY: ITS.REASON XR Reason: Pain TECHNIQUE: Frontal and lateral views of the lumbar spine and sacrum. COMPARISON: No relevant prior studies available. FINDINGS: Limitations: Evaluation severely limited due to body habitus. CT scan or MRI recommended for further evaluation. Vertebrae: Multilevel lumbar spondylosis. Intervertebral disc space narrowing. Multilevel posterior spondylitic ridging. Osseous demineralization. No definite compression fracture. Sacrum/coccyx: Unremarkable as visualized. No acute fracture. Disc spaces: See above. Soft tissues: Unremarkable. IMPRESSION: 1. No definite compression fracture. 2. Evaluation severely limited due to body habitus. CT scan or MRI recommended for further evaluation.
--- NOTE | 2023-04-07 23:45 | XR ---
EXAM: XR Pelvis, 1 or 2 Views CLINICAL HISTORY: ITS.REASON XR Reason: Pain TECHNIQUE: Frontal view of the pelvis. COMPARISON: No relevant prior studies available. FINDINGS: Bones/joints: Unremarkable. No dislocation. No fracture of the pelvis. No definite RIGHT hip fracture. Soft tissues: Unremarkable. IMPRESSION: 1. No fracture of the pelvis. 2. No definite RIGHT hip fracture. The need for CT scan should be determined clinically.
--- NOTE | 2023-04-07 23:48 | XR ---
EXAM: XR Bilateral Hips With Pelvis When Performed, 4 or More Views CLINICAL HISTORY: ITS.REASON XR Reason: Pain TECHNIQUE: Four or more views of the bilateral hips with pelvis when performed. COMPARISON: No relevant prior studies available. FINDINGS: Bones/joints: No acute fracture. LEFT hip arthroplasty. No periprosthetic fracture. Evaluation limited due to body habitus. The need for CT scan should be determined clinically. No dislocation. Soft tissues: Unremarkable. IMPRESSION: No acute fracture. LEFT hip arthroplasty. No periprosthetic fracture. Evaluation limited due to body habitus. The need for CT scan should be determined clinically.
[2023-04-08] MEDS ORDERED: HYDROcodone/APAP 10-325MG 1 EACH TAB PO ONE (01:49)
[2023-04-08] MEDS ORDERED: LIDOCAINE 5% PATCH TOPICAL SCH (09:00)
--- NOTE | 2023-04-08 10:38 | CT ---
EXAM: CT Lumbar Spine Without Intravenous Contrast CLINICAL HISTORY: ITS.REASON CT Reason: pain TECHNIQUE: Axial computed tomography images of the lumbar spine without intravenous contrast. CTDI is 85.9 mGy and DLP is 2871.4 mGy-cm. This CT exam was performed using one or more of the following dose reduction techniques: automated exposure control, adjustment of the mA and/or kV according to patient size, and/or use of iterative reconstruction technique. COMPARISON: No relevant prior studies available. FINDINGS: The vertebral body heights are maintained. The lumbar lordosis is preserved. There is no spondylolisthesis. The posterior elements are maintained, without evidence of acute fracture. The pedicles are intact. Multilevel lumbar spondylosis and degenerative disc disease. IMPRESSION: No acute fracture or subluxation of the lumbar spine. MTDD
== END 2023-04-08 02:52 | disposition home or self-care (01) ==
LOC: EC 20:32
DX: R53.1 Weakness (principal); G89.29 Other chronic pain; M54.50 Low back pain, unspecified; E66.01 Morbid (severe) obesity due to excess calories; I48.91 Unspecified atrial fibrillation; I50.9 Heart failure, unspecified; J44.9 Chronic obstructive pulmonary disease, unspecified; I25.2 Old myocardial infarction; E03.9 Hypothyroidism, unspecified; M19.90 Unspecified osteoarthritis, unspecified site; F41.9 Anxiety disorder, unspecified; F32.A Depression, unspecified; Z79.01 Long term (current) use of anticoagulants; Z79.51 Long term (current) use of inhaled steroids; Z79.899 Other long term (current) drug therapy; Z79.890 Hormone replacement therapy; Z88.5 Allergy status to narcotic agent; Z88.6 Allergy status to analgesic agent; Z88.8 Allergy status to other drugs, medicaments and biological substances; Z90.49 Acquired absence of other specified parts of digestive tract; Z86.73 Personal history of transient ischemic attack (TIA), and cerebral infarction without residual deficits; W19.XXXA Unspecified fall, initial encounter
CPT/HCPCS: 99285 ×2; 96372 ×2; 72100; 72170; 73521; 72131; J1170

== ENCOUNTER 2023-04-08 22:39 | Emergency (ER) | payer MEDICARE, OTHER ==
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
[2023-04-08] MEDS ORDERED: PROCHLORPERAZINE 5 MG TAB PO STA (23:49)
[2023-04-08] MEDS ORDERED: HYDROmorphone 1 MG/ML 1 ML SYRINGE IM STA (23:49)
[2023-04-09] MEDS: diphenhydrAMINE 50 MG CAP PO STA (00:31)
[2023-04-09 02:30] VITALS: BP 136/72; PULSE 96; RESP 20; TEMP 98.6
== END 2023-04-09 02:51 | disposition home or self-care (01) ==
LOC: EC 22:39
DX: G89.29 Other chronic pain (principal); M54.9 Dorsalgia, unspecified; R11.2 Nausea with vomiting, unspecified; R07.9 Chest pain, unspecified; I48.91 Unspecified atrial fibrillation; I50.9 Heart failure, unspecified; J44.9 Chronic obstructive pulmonary disease, unspecified; I25.2 Old myocardial infarction; E66.01 Morbid (severe) obesity due to excess calories; E03.9 Hypothyroidism, unspecified; F41.9 Anxiety disorder, unspecified; F32.A Depression, unspecified; Z86.73 Personal history of transient ischemic attack (TIA), and cerebral infarction without residual deficits; Z79.01 Long term (current) use of anticoagulants; Z79.890 Hormone replacement therapy; Z79.899 Other long term (current) drug therapy; Z79.51 Long term (current) use of inhaled steroids; Z68.44 Body mass index [BMI] 60.0-69.9, adult; Z88.5 Allergy status to narcotic agent; Z88.6 Allergy status to analgesic agent; Z88.8 Allergy status to other drugs, medicaments and biological substances
CPT/HCPCS: 99284; 96372; S0183; J1170

== ENCOUNTER 2023-05-06 09:17 | Inpatient (IN) | payer OTHER ==
[2023-05-06] MEDS ORDERED: methylPREDNISolone SOD SUCCI 125 MG/2 ML VIAL IV STA (09:33)
[2023-05-06] MEDS ORDERED: IPRATROPIUM 0.5 MG/2.5 ML NEBU INHALATION STA (09:33)
[2023-05-06] MEDS ORDERED: ALBUTEROL NEBULIZED 2.5 MG/3 ML INHALATION STA (09:33)
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
[2023-05-06 09:51] LABS: Basophils % (A) 0 %; Eosinophils # (A) 0.4 k/uL (0-0.7); Eosinophils % (A) 5 %; HCT 33.7 % (34.0-46.0); HGB 10.8 gm/dL (11.4-16.0); Lymphocytes # (A) 1.4 k/uL (1.0-4.8); Lymphocytes % (A) 17 %; MCH 27.6 pg (25.0-35.0); MCV 86.2 fL (80.0-100.0); Mean Platelet Volume 7.1; Monocytes # (A) 0.3 k/uL (0-1.0); Monocytes % (A) 4 %; Neutrophils # (A) 6.2 k/uL (1.3-7.7); Neutrophils % (A) 73 %; Platelet Count 320 k/uL (150-450); RBC 3.91 m/uL (3.80-5.40); RDW 15.2 % (11.5-15.5); WBC 8.4 k/uL (3.8-10.6)
[2023-05-06 10:01] LABS: INR 0.9 (<1.2); Partial Thromboplastin Time 29.1 sec (22.0-30.0); Prothrombin Time 9.9 sec (9.0-12.0)
[2023-05-06 10:16] LABS: ALT 17 U/L (4-34); AST 17 U/L (14-36); African American GFR (CKD) >90 (>60 ml/min/1.73 sqM); Albumin 3.2 g/dL (3.5-5.0); Alkaline Phosphatase 65 U/L (38-126); Anion Gap 7 mmol/L; Blood Urea Nitrogen 12 mg/dL (7-17); Calcium 9.2 mg/dL (8.4-10.2); Carbon Dioxide 29 mmol/L (22-30); Chloride 105 mmol/L (98-107); Glucose 123 mg/dL (74-99); Magnesium 1.7 mg/dL (1.6-2.3); Non-African American GFR(CKD) >90 (>60 ml/min/1.73 sqM); Potassium 3.9 mmol/L (3.5-5.1); Sodium 141 mmol/L (137-145); Total Bilirubin 0.5 mg/dL (0.2-1.3)
[2023-05-06 10:24] LABS: NT-Pro-B-Type Natriuretic Pept 842 pg/mL
[2023-05-06] MEDS ORDERED: ONDANSETRON 4 MG/2 ML VIAL IVP STA (10:25)
--- NOTE | 2023-05-06 10:51 | XR ---
EXAMINATION TYPE: XR chest 1V portable DATE OF EXAM: 05/06/2023 10:46 AM COMPARISON: Chest radiographs from 04/10/2023 TECHNIQUE: XR chest 1V portable Portable AP radiograph of the chest. CLINICAL INDICATION:Female, 73 years old with history of Cough; FINDINGS: Lungs/Pleura: There is no evidence of pleural effusion, focal consolidation, or pneumothorax. Pulmonary vascularity: Unremarkable. Heart/mediastinum: Cardiomediastinal silhouette is prominent stable. Musculoskeletal: No acute osseous pathology. Other findings: None Lines/Tubes: Right IJ central venous catheter distal tip terminating in the mid SVC. IMPRESSION: Chronic changes without acute pulmonary process. No significant change from prior.
[2023-05-06] MEDS ORDERED: NALOXONE 0.4 MG/ML 1 ML VIAL IVP PRN (11:12)
[2023-05-06] MEDS ORDERED: cefTRIAXone IN SWFI 1,000 MG/10 ML SYRINGE IVP STA (11:13)
[2023-05-06] MEDS ORDERED: oxyCODONE-APAP 7.5-325MG 1 EACH TAB PO STA (11:43)
[2023-05-06] MEDS: methylPREDNISolone SOD SUCCI 125 MG/2 ML VIAL IV SCH ×2 (11:44→17:42)
[2023-05-06] MEDS ORDERED: METOCLOPRAMIDE 5 MG/ML 2 ML VIAL IVP STA (11:59)
[2023-05-06] MEDS: IPRATROPIUM-ALBUTEROL 3 ML NEB INHALATION SCH ×3 (12:06→21:11)
[2023-05-06] MEDS ORDERED: MINERAL OIL-WHITE PETROLATUM 120 GM JAR TOPICAL PRN (15:00)
[2023-05-06] MEDS ORDERED: MAGNESIUM HYDROXIDE 2,400 MG/30 ML CUP PO PRN (15:00)
[2023-05-06] MEDS ORDERED: IPRATROPIUM-ALBUTEROL 3 ML NEB INHALATION PRN (15:00)
[2023-05-06] MEDS ORDERED: ONDANSETRON ODT 8 MG TAB.RAPDIS PO PRN (15:00)
[2023-05-06] MEDS: HYDROmorphone 1 MG/ML 1 ML SYRINGE IVP PRN ×2 (15:15→20:36)
[2023-05-06] MEDS: ONDANSETRON 4 MG/2 ML VIAL IVP PRN (17:40)
[2023-05-06] MEDS: SERTRALINE 50 MG TAB PO SCH (17:41)
[2023-05-06] MEDS: GABAPENTIN 300 MG CAP PO SCH ×2 (17:41→20:35)
[2023-05-06] MEDS: DICYCLOMINE 20 MG TAB PO SCH ×2 (17:42→20:35)
[2023-05-06] MEDS: APIXABAN 5 MG TAB PO SCH (20:35)
[2023-05-06] MEDS: carvediloL 6.25 MG TAB PO SCH (20:35)
[2023-05-06] MEDS: TORSEMIDE 20 MG TAB PO SCH (20:36)
--- NOTE | 2023-05-06 23:14 | HP ---
HISTORY AND PHYSICAL HISTORY OF PRESENT ILLNESS: This is a 73-year-old white female, multifactorial dyspnea on 4 L oxygen, increased cough and congestion over the past week. Received outpatient antibiotics, steroids by primary care physician, did not do well. She failed outpatient treatment. She came in with chest pain, shortness of breath, worsening breathing, multifactorial shortness of breath per ER doctor. She was admitted with IV steroids and IV antibiotics. HOME MEDICATIONS: Reviewed. ALLERGIES: Reviewed. PAST MEDICAL HISTORY: Atrial fibrillation, cancer, chest pain, angina, heart failure, COPD, CVA, GI bleed, myocardial infarction, osteoarthritis, pneumonia, pulmonary embolism, renal disease, skin disorder, hypothyroidism, colitis, urinary incontinence, seizure, uterine and cervical cancer, prolapsed heart valve, and herniated discs, anxiety, depression. SURGICAL HISTORY: Cholecystectomy, bladder surgery, adenoidectomy, heart catheterization, hysterectomy, joint replacement, orthopedic surgery, tonsillectomy, and also had knee replacements. PAST FAMILY HISTORY: Father with cancer, CVA, TIA, hypertension, myocardial infarction, bladder cancer. PHYSICAL EXAMINATION: VITAL SIGNS: Temperature 98.1, pulse 79 to 91, respiratory rate 18 to 22, and pulse ox is 96. CARDIOVASCULAR: S1, S2. LUNGS: Scattered rhonchi and wheeze. HEMATOLOGY: Negative for Homans. NEUROLOGIC: Alert and oriented x3. HEENT: Ophthalmologic, pupils equal, round, reactive. PSYCH: Fair mood and affect. EKG, sinus rhythm, no ST-T changes. ASSESSMENT: Acute on chronic diastolic heart failure, acute hypoxemic respiratory distress secondary to COPD, asthma, possible community-acquired pneumonia, and bronchitis. Prognosis guarded. Acute on chronic anemia, obesity, multiple medical problems including degenerative disease and neuropathy, generalized weakness, sleep apnea. Continue current treatment. She wears oxygen at home. She will have to continue the night to try breathing treatments and steroids etc. Prognosis is guarded. Please see further orders. MMODL / IJN: [id number] /
[2023-05-07] MEDS: methylPREDNISolone SOD SUCCI 125 MG/2 ML VIAL IV SCH ×5 (00:11→23:32)
[2023-05-07] MEDS: HYDROmorphone 1 MG/ML 1 ML SYRINGE IVP PRN ×6 (00:12→20:49)
[2023-05-07] MEDS: LEVOTHYROXINE 75 MCG TAB PO SCH (06:12)
[2023-05-07] MEDS: FERROUS SULFATE 325 MG TAB PO SCH (06:12)
[2023-05-07] MEDS: ONDANSETRON 4 MG/2 ML VIAL IVP PRN (06:36)
[2023-05-07] MEDS: BUDESONIDE 0.5 MG/2 ML NEBU INHALATION SCH (07:48)
[2023-05-07] MEDS: IPRATROPIUM-ALBUTEROL 3 ML NEB INHALATION SCH ×4 (07:48→20:07)
[2023-05-07] MEDS: GABAPENTIN 300 MG CAP PO SCH ×3 (08:22→20:48)
[2023-05-07] MEDS: carvediloL 6.25 MG TAB PO SCH ×2 (08:22→20:48)
[2023-05-07] MEDS: TORSEMIDE 20 MG TAB PO SCH ×2 (08:23→20:48)
[2023-05-07] MEDS: SPIRONOLACTONE 25 MG TAB PO SCH (08:23)
[2023-05-07] MEDS: PANTOPRAZOLE 40 MG TABLET PO SCH (08:23)
[2023-05-07] MEDS: AZITHROMYCIN 500 MG TAB PO SCH (08:23)
[2023-05-07] MEDS: DICYCLOMINE 20 MG TAB PO SCH ×4 (08:23→20:48)
[2023-05-07] MEDS: APIXABAN 5 MG TAB PO SCH ×2 (08:23→20:48)
[2023-05-07] MEDS: POTASSIUM CHLORIDE ER 20 MEQ TAB.ER PO SCH (08:23)
[2023-05-07] MEDS: DAPAGLIFLOZIN PROPANEDIOL 10 MG TABLET PO SCH (08:24)
[2023-05-07] MEDS: SERTRALINE 50 MG TAB PO SCH (16:50)
--- NOTE | 2023-05-07 23:29 | PN ---
PROGRESS NOTE SUBJECTIVE: A 73-year-old white female. Waiting for CAT scan. She appears to be breathing better. She just wants a regular diet. OBJECTIVE: VITAL SIGNS: Oxygen has cut down to 2-3 L, saturating in the high 90s. CARDIOVASCULAR: S1, S2. LUNGS: Scattered rhonchi and wheeze. HEMATOLOGY: Negative Homans. PSYCH: Fair mood and affect. ENDOCRINE: BMI is over 40. HEMATOLOGY: 2+ edema. ASSESSMENT: Congestive heart failure, acute on chronic diastolic tracheobronchitis, chronic obstructive pulmonary disease, asthma exacerbation. Continue IV steroids, updrafts, IV antibiotics, CT scan of the lungs, procalcitonin. Prognosis guarded. PT, OT. Advance to regular diet. Switch to oral pain medicines. Wean Dilaudid. Home soon. MMODL / IJN: [id number] /
[2023-05-07] MEDS: oxyCODONE-APAP 7.5-325MG 1 EACH TAB PO PRN (23:32)
[2023-05-08] MEDS: HYDROmorphone 1 MG/ML 1 ML SYRINGE IVP PRN ×6 (00:56→22:19)
[2023-05-08] MEDS: methylPREDNISolone SOD SUCCI 125 MG/2 ML VIAL IV SCH ×3 (06:03→18:05)
[2023-05-08] MEDS: LEVOTHYROXINE 75 MCG TAB PO SCH (06:04)
[2023-05-08] MEDS: FERROUS SULFATE 325 MG TAB PO SCH (06:04)
[2023-05-08] MEDS: DAPAGLIFLOZIN PROPANEDIOL 10 MG TABLET PO SCH (08:50)
[2023-05-08] MEDS: GABAPENTIN 300 MG CAP PO SCH ×3 (08:51→20:58)
[2023-05-08] MEDS: DICYCLOMINE 20 MG TAB PO SCH ×4 (08:51→20:58)
[2023-05-08] MEDS: APIXABAN 5 MG TAB PO SCH ×2 (08:51→20:58)
[2023-05-08] MEDS: PANTOPRAZOLE 40 MG TABLET PO SCH (08:52)
[2023-05-08] MEDS: AZITHROMYCIN 500 MG TAB PO SCH (08:52)
[2023-05-08] MEDS: POTASSIUM CHLORIDE ER 20 MEQ TAB.ER PO SCH (08:52)
[2023-05-08] MEDS: TORSEMIDE 20 MG TAB PO SCH ×2 (08:53→20:58)
[2023-05-08] MEDS: carvediloL 6.25 MG TAB PO SCH ×2 (08:53→20:57)
[2023-05-08] MEDS: oxyCODONE-APAP 7.5-325MG 1 EACH TAB PO PRN ×3 (08:57→20:58)
[2023-05-08] MEDS: BUDESONIDE 0.5 MG/2 ML NEBU INHALATION SCH (09:29)
[2023-05-08] MEDS: IPRATROPIUM-ALBUTEROL 3 ML NEB INHALATION SCH ×4 (09:30→19:53)
[2023-05-08] MEDS: SPIRONOLACTONE 25 MG TAB PO SCH (10:04)
[2023-05-08] MEDS ORDERED: RX INFO: IV CONTRAST WAS GIVEN 1 EACH MISC MISCELLANE PRN (14:06)
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
--- NOTE | 2023-05-08 14:56 | XR ---
EXAMINATION TYPE: XR humerus LT DATE OF EXAM: 05/08/2023 COMPARISON: NONE HISTORY: Pain TECHNIQUE: 2 views submitted. FINDINGS: The osseous structures are intact and hypertrophic arthropathy of the AC joint. Diffuse osteopenia. S mall well-corticated ossific density along the distal humerus. Upper humerus is not included in the f [id number]. Small olecranon spur. IMPRESSION: Limited images with lack of inclusion of the proximal humerus on the oblique image. No ob vious acute fracture or dislocation. Correlate for AC joint arthropathy.
--- NOTE | 2023-05-08 15:01 | CT ---
EXAMINATION TYPE: CT chest wo con DATE OF EXAM: 05/08/2023 COMPARISON: 02/19/2023 HISTORY: 73-year-old female with community-acquired pneumonia TECHNIQUE: Contiguous axial scanning of the chest without contrast. Coronal/sagittal reconstructions performed. CT DLP: 847.8mGycm. Automatic exposure control utilized for a dose reduction. FINDINGS: Right-sided CVC within the SVC. Heart upper limits of normal in size without pericardial effusion. LAD and RCA coronary artery calcif ications are present. Ascending aorta is ectatic at 3.5 cm. Bilateral scattered microcalcifications with aberrant right sub clavian artery that takes a retroesophageal course. Borderline caliber to the main right and left pulmonary arteries measuring up to 2.6 cm suggesting un derlying pulmonary arterial hypertension. No thoracic lymphadenopathy by CT size criteria. There is mild diffuse bronchial wall thickening. Dependent atelectasis in the posterior lungs. Some focal opacity posteromedial left lower lobe suspected to represent atelectasis, new from 02/28/20 23. Otherwise, no lynda air space opacity is seen. Visualized upper abdomen shows a fat attenuating nodule of the right adrenal gland measuring 3.0 cm s uggesting a benign adrenal myelolipoma. Gallbladder surgically absent. Bones: DISH mid to lower thoracic spine. Degenerative change both sternoclavicular joints. IMPRESSION: 1. Some focal opacity posteromedial left base could represent atelectasis versus a small area of pneu monia. 2. Mild bronchial wall thickening may be seen with bronchitis or chronic asthma. 3. Possible underlying pulmonary arterial hypertension.
[2023-05-08] MEDS: SERTRALINE 50 MG TAB PO SCH (16:11)
[2023-05-09] MEDS: oxyCODONE-APAP 7.5-325MG 1 EACH TAB PO PRN ×4 (00:59→18:35)
[2023-05-09] MEDS: methylPREDNISolone SOD SUCCI 125 MG/2 ML VIAL IV SCH ×5 (01:09→23:21)
[2023-05-09] MEDS: HYDROmorphone 1 MG/ML 1 ML SYRINGE IVP PRN ×6 (02:22→23:25)
[2023-05-09] MEDS: LEVOTHYROXINE 75 MCG TAB PO SCH (05:02)
[2023-05-09] MEDS: FERROUS SULFATE 325 MG TAB PO SCH (05:02)
[2023-05-09] MEDS: BUDESONIDE 0.5 MG/2 ML NEBU INHALATION SCH (08:09)
[2023-05-09] MEDS: IPRATROPIUM-ALBUTEROL 3 ML NEB INHALATION SCH ×4 (08:09→20:44)
[2023-05-09] MEDS: DAPAGLIFLOZIN PROPANEDIOL 10 MG TABLET PO SCH (08:40)
[2023-05-09] MEDS: APIXABAN 5 MG TAB PO SCH ×2 (08:40→19:23)
[2023-05-09] MEDS: PANTOPRAZOLE 40 MG TABLET PO SCH (08:40)
[2023-05-09] MEDS: AZITHROMYCIN 500 MG TAB PO SCH (08:40)
[2023-05-09] MEDS: SPIRONOLACTONE 25 MG TAB PO SCH (08:40)
[2023-05-09] MEDS: TORSEMIDE 20 MG TAB PO SCH ×2 (08:41→19:23)
[2023-05-09] MEDS: carvediloL 6.25 MG TAB PO SCH ×2 (08:41→19:23)
[2023-05-09] MEDS: GABAPENTIN 300 MG CAP PO SCH ×3 (08:41→19:22)
[2023-05-09] MEDS: POTASSIUM CHLORIDE ER 20 MEQ TAB.ER PO SCH (08:41)
[2023-05-09] MEDS: DICYCLOMINE 20 MG TAB PO SCH ×4 (08:41→19:23)
--- NOTE | 2023-05-09 13:22 | P.PN ---
Progress Note - Text Progress Note Date: 05/09/23 ASSESSMENT: 1. Left upper arm and axilla pain with recent fall and on Eliquis PLAN: -CT scan of chest shows possible pneumonia, no hematoma: medicine recs -Xray left humerus shows no acute fracture -Continue supportive care -No acute surgical intervention HPI: No acute process overnight PHYSICAL EXAM: VITAL SIGNS: Reviewed GENERAL: Well-developed in no acute distress. Extremities: Left humerus upper arm mild old yellow bruising. Palpable fatty tissue. No swelling. No hematoma noted. Left axilla palpated. Nontender. No palpable hematoma. Limited mobility of left arm. Temperature is warm NEUROLOGIC: Alert and oriented. Cranial nerves II through XII grossly intact.
[2023-05-09] MEDS: AZITHROMYCIN 500 MG in SODIUM CHLORIDE 0.9% 250 ML IVPB SCH (14:55)
--- NOTE | 2023-05-09 15:20 | PN ---
PROGRESS NOTE A 73-year-old white female. She had humerus x-ray due to pain and swelling in her left upper arm, which she was worried about. It shows small ossific density in the distal humerus. Osseous structures are intact. Hypertrophic arthropathy of the AC joint. No obvious fracture dislocation. She has better arthritis in the joint. The swelling is an area of the biceps tendon insertion, which is probably where her pain is coming from. CAT scan of the chest was done for hypoxic respiratory failure. She has a benign adrenal myelolipoma. She has some atelectasis, possibly a small area of pneumonia, bronchitis, chronic asthma, and pulmonary artery hypertension. She wears oxygen at home. She does breathing treatments. She will continue on this. Prognosis is guarded. Please see further orders. MMODL / IJN: [id number] /
[2023-05-09] MEDS: PIPERACILLIN-TAZOBACTAM 3.375 GM in SODIUM CHLORIDE 0.9% 100 ML IVPB SCH ×2 (17:08→23:21)
[2023-05-09] MEDS: SERTRALINE 50 MG TAB PO SCH (17:09)
[2023-05-10] MEDS: oxyCODONE-APAP 7.5-325MG 1 EACH TAB PO PRN ×4 (00:02→17:37)
[2023-05-10] MEDS: HYDROmorphone 1 MG/ML 1 ML SYRINGE IVP PRN ×5 (04:28→20:04)
[2023-05-10] MEDS: methylPREDNISolone SOD SUCCI 125 MG/2 ML VIAL IV SCH ×3 (06:01→17:37)
[2023-05-10] MEDS: LEVOTHYROXINE 75 MCG TAB PO SCH (06:01)
[2023-05-10] MEDS: FERROUS SULFATE 325 MG TAB PO SCH (06:01)
[2023-05-10] MEDS: BUDESONIDE 0.5 MG/2 ML NEBU INHALATION SCH (07:53)
[2023-05-10] MEDS: IPRATROPIUM-ALBUTEROL 3 ML NEB INHALATION SCH ×4 (07:53→21:29)
[2023-05-10] MEDS: AZITHROMYCIN 500 MG in SODIUM CHLORIDE 0.9% 250 ML IVPB SCH (08:35)
[2023-05-10] MEDS: GABAPENTIN 300 MG CAP PO SCH ×3 (08:42→20:07)
[2023-05-10] MEDS: DAPAGLIFLOZIN PROPANEDIOL 10 MG TABLET PO SCH (08:42)
[2023-05-10] MEDS: TORSEMIDE 20 MG TAB PO SCH ×2 (08:42→20:07)
[2023-05-10] MEDS: carvediloL 6.25 MG TAB PO SCH ×2 (08:43→20:07)
[2023-05-10] MEDS: DICYCLOMINE 20 MG TAB PO SCH ×4 (08:43→20:07)
[2023-05-10] MEDS: PANTOPRAZOLE 40 MG TABLET PO SCH (08:43)
[2023-05-10] MEDS: SPIRONOLACTONE 25 MG TAB PO SCH (08:43)
[2023-05-10] MEDS: APIXABAN 5 MG TAB PO SCH ×2 (08:43→20:06)
[2023-05-10] MEDS: POTASSIUM CHLORIDE ER 20 MEQ TAB.ER PO SCH (08:43)
[2023-05-10] MEDS: PIPERACILLIN-TAZOBACTAM 3.375 GM in SODIUM CHLORIDE 0.9% 100 ML IVPB SCH ×2 (08:54→16:51)
--- NOTE | 2023-05-10 09:44 | P.PN ---
Progress Note - Text Progress Note Date: 05/10/23 The patient is resting comfortably in her bed. She denies any left axillary pain. She is states that she feels slightly short of breath. CAT scan yesterday shows possible pneumonia. On exam vital signs appear stable. Left exam shows some minimal ecchymosis. No surgical is planned. She will continue receive supportive care.
[2023-05-10] MEDS: SERTRALINE 50 MG TAB PO SCH (16:51)
[2023-05-10] MEDS ORDERED: BACLOFEN 10 MG TAB PO PRN (21:41)
[2023-05-11] MEDS: HYDROmorphone 1 MG/ML 1 ML SYRINGE IVP PRN ×6 (00:04→22:48)
[2023-05-11] MEDS: methylPREDNISolone SOD SUCCI 125 MG/2 ML VIAL IV SCH ×4 (00:05→18:48)
[2023-05-11] MEDS: PIPERACILLIN-TAZOBACTAM 3.375 GM in SODIUM CHLORIDE 0.9% 100 ML IVPB SCH ×3 (00:05→16:49)
--- NOTE | 2023-05-11 03:41 | PN ---
PROGRESS NOTE SUBJECTIVE: This is a 73-year-old white female. She is slightly better with IV antibiotics over the last 24 hours. OBJECTIVE: CARDIOVASCULAR: S1, S2. LUNGS: Scattered rhonchi and wheeze. HEMATOLOGY: Negative for Homans. PSYCH: Fair mood and affect. ASSESSMENT: Acute hypoxic respiratory failure, atypical chest pain, community acquired pneumonia. Prognosis guarded. Follow up in next 24 to 48 hours. Possible discharge depending on patient's progress. Please see further orders. MMODL / IJN: [id number] /
[2023-05-11] MEDS: oxyCODONE-APAP 7.5-325MG 1 EACH TAB PO PRN ×3 (06:10→20:52)
[2023-05-11] MEDS: LEVOTHYROXINE 75 MCG TAB PO SCH (06:10)
[2023-05-11] MEDS: FERROUS SULFATE 325 MG TAB PO SCH (06:10)
[2023-05-11] MEDS: APIXABAN 5 MG TAB PO SCH ×2 (08:46→20:52)
[2023-05-11] MEDS: carvediloL 6.25 MG TAB PO SCH ×2 (08:46→20:51)
[2023-05-11] MEDS: GABAPENTIN 300 MG CAP PO SCH ×3 (08:46→20:52)
[2023-05-11] MEDS: SPIRONOLACTONE 25 MG TAB PO SCH (08:46)
[2023-05-11] MEDS: AZITHROMYCIN 500 MG in SODIUM CHLORIDE 0.9% 250 ML IVPB SCH (08:47)
[2023-05-11] MEDS: TORSEMIDE 20 MG TAB PO SCH ×2 (08:47→20:52)
[2023-05-11] MEDS: DAPAGLIFLOZIN PROPANEDIOL 10 MG TABLET PO SCH (08:48)
[2023-05-11] MEDS: POTASSIUM CHLORIDE ER 20 MEQ TAB.ER PO SCH (08:48)
[2023-05-11] MEDS: DICYCLOMINE 20 MG TAB PO SCH ×4 (08:48→20:52)
[2023-05-11] MEDS: PANTOPRAZOLE 40 MG TABLET PO SCH (08:48)
[2023-05-11] MEDS: IPRATROPIUM-ALBUTEROL 3 ML NEB INHALATION SCH ×4 (09:47→20:23)
[2023-05-11] MEDS: BUDESONIDE 0.5 MG/2 ML NEBU INHALATION SCH ×2 (09:47→20:23)
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
--- NOTE | 2023-05-11 13:44 | P.PN ---
Subjective Progress Note Date: 05/11/23 CHIEF COMPLAINT: COPD HISTORY OF PRESENT ILLNESS: Patient lying in bed comfortably. Denies any left axillary pain. Patient reports left arm pain is less. Afebrile. PHYSICAL EXAM: VITAL SIGNS: Reviewed. GENERAL: Well-developed in no acute distress. Extremities: Left arm minimal ecchymosis noted ASSESSMENT: 1. Left upper arm and axilla pain with recent fall and on Eliquis. Pain improving PLAN: -No surgical intervention planned -Continue supportive care Physician Criminal Justice Teacher note has been reviewed by physician. Signing provider agrees with the documented findings, assessment, and plan of care. Objective - Vital Signs Vital signs: Vital Signs Temp 98.0 F 05/11/23 07:49 Pulse 53 L 05/11/23 08:00 Resp 18 05/11/23 08:00 BP 161/78 05/11/23 07:49 Pulse Ox 94 L 05/11/23 07:49 FiO2 Intake & Output 05/10/23 05/11/23 05/11/23 18:59 06:59 18:59 Output Total 1650 1200 Balance -1650 -1200 Output: Urine 1650 1200 Other: Voiding Method External Catheter External Catheter External Catheter - Labs CBC & Chem 7: 05/06/23 09:38 05/06/23 09:38
[2023-05-11] MEDS: SERTRALINE 50 MG TAB PO SCH (16:49)
--- NOTE | 2023-05-11 23:29 | PN ---
PROGRESS NOTE SUBJECTIVE: This is a 73-year-old white female with COPD, atypical pneumonia. No surgical plan for inflammation of her shoulders is necessary. Pulmonary saw her for pneumonia, COPD, pulmonary hypertension, etc. Normal white count. ASSESSMENT: COPD exacerbation, tracheobronchitis, possible pneumonia, CHF, anasarca, sleep apnea, morbid obesity, bronchopneumonia, on Zosyn. Continue antibiotics, steroids, diuresis, oxygen, breathing treatments. Prognosis guarded. MMODL / IJN: [id number] /
[2023-05-12] MEDS: methylPREDNISolone SOD SUCCI 125 MG/2 ML VIAL IV SCH ×4 (00:43→17:11)
[2023-05-12] MEDS: PIPERACILLIN-TAZOBACTAM 3.375 GM in SODIUM CHLORIDE 0.9% 100 ML IVPB SCH ×3 (00:43→16:28)
[2023-05-12] MEDS: oxyCODONE-APAP 7.5-325MG 1 EACH TAB PO PRN ×4 (01:40→18:42)
[2023-05-12] MEDS: HYDROmorphone 1 MG/ML 1 ML SYRINGE IVP PRN ×5 (04:20→21:53)
[2023-05-12] MEDS: FERROUS SULFATE 325 MG TAB PO SCH (06:43)
[2023-05-12] MEDS: LEVOTHYROXINE 75 MCG TAB PO SCH (06:43)
[2023-05-12] MEDS: GABAPENTIN 300 MG CAP PO SCH ×3 (09:35→21:53)
[2023-05-12] MEDS: APIXABAN 5 MG TAB PO SCH ×2 (09:35→21:37)
[2023-05-12] MEDS: POTASSIUM CHLORIDE ER 20 MEQ TAB.ER PO SCH (09:35)
[2023-05-12] MEDS: DICYCLOMINE 20 MG TAB PO SCH ×4 (09:35→21:53)
[2023-05-12] MEDS: carvediloL 6.25 MG TAB PO SCH ×2 (09:35→21:53)
[2023-05-12] MEDS: TORSEMIDE 20 MG TAB PO SCH ×2 (09:36→21:37)
[2023-05-12] MEDS: DAPAGLIFLOZIN PROPANEDIOL 10 MG TABLET PO SCH (09:36)
[2023-05-12] MEDS: PANTOPRAZOLE 40 MG TABLET PO SCH (09:36)
[2023-05-12] MEDS: SPIRONOLACTONE 25 MG TAB PO SCH (09:36)
[2023-05-12] MEDS: IPRATROPIUM-ALBUTEROL 3 ML NEB INHALATION SCH ×4 (12:57→21:00)
--- NOTE | 2023-05-12 13:23 | P.PN ---
Subjective Progress Note Date: 05/12/23 CHIEF COMPLAINT: COPD HISTORY OF PRESENT ILLNESS: Patient lying in bed comfortably. Denies any left axillary pain. Patient reports left arm pain is tolerable. Afebrile. PHYSICAL EXAM: VITAL SIGNS: Reviewed. GENERAL: Well-developed in no acute distress. Extremities: Left arm minimal ecchymosis noted ASSESSMENT: 1. Left upper arm and axilla pain with recent fall and on Eliquis PLAN: -No surgical intervention planned -Continue supportive care Physician Vegetable Farm Manager note has been reviewed by physician. Signing provider agrees with the documented findings, assessment, and plan of care. Objective - Vital Signs Vital signs: Vital Signs Temp 98.4 F 05/12/23 06:56 Pulse 70 05/12/23 06:56 Resp 18 05/12/23 06:56 BP 151/93 05/12/23 06:56 Pulse Ox 94 L 05/12/23 06:56 FiO2 Intake & Output 05/11/23 05/12/23 05/12/23 18:59 06:59 18:59 Intake Total 200 Output Total 1150 1450 Balance -1150 -1250 Intake: Intake, IV Titration 200 Amount Piperacillin-Tazobactam 3 200 .375 gm In Sodium Chloride 0.9% 100 ml @ 25 mls/hr IVPB Q8HR [facility] Rx# :[id number] Output: Urine 1150 1450 Other: Voiding Method External Catheter External Catheter Incontinent External Catheter # Bowel Movements 1 - Labs CBC & Chem 7: 05/06/23 09:38 05/06/23 09:38
[2023-05-12 14:16] VITALS: BMI 64.0
--- NOTE | 2023-05-12 15:44 | P.PN ---
Subjective Progress Note Date: 05/12/23 Principal diagnosis: Acute COPD exacerbation on bronchodilators including corticosteroids and antiplatelet and IV steroids Shortness of breath also currently back congestive heart failure and anasarca Disorder breathing and sleep apnea Severe morbid obesity Bronchopneumonia on IV Zosyn 05/12/2023, patient seen and evaluated examined during rounds, ongoing shortness of breath intermittent dry cough is present, patient has generalized swelling and anasarca as well. She remains on 4 L oxygen, saturation is 94%, hemodynamic status stable. Patient fell down on the left common axilla general surgery is evaluated recommended no surgical intervention This is a 73-year-old morbidly obese female predominantly bed and wheelchair bound patient has been oxygen 4 L nasal cannula at home, for 1 week started having increasing shortness of breath cough she has been treated with outpatient oral antibiotics history are without any relief decided to come into the hospital, patient also had increased swelling of the lower extremity extending up to abdomen. On specific questioning denies any chest pain denies any loss of consciousness, denies any nausea vomiting diarrhea no night sweats fever or chills. Her past medical history seen by hypothyroidism, congestive heart fail ure, chronic atrial fibrillation, sleep apnea and sleep Disorder breathing, depression, COPD, congestive heart failure and chronic diastolic heart failure Objective - Vital Signs Vital signs: Vital Signs Temp 98.4 F 05/12/23 06:56 Pulse 76 05/12/23 13:09 Resp 18 05/12/23 06:56 BP 151/93 05/12/23 06:56 Pulse Ox 94 L 05/12/23 06:56 FiO2 Intake & Output 05/11/23 05/12/23 05/12/23 18:59 06:59 18:59 Intake Total 200 Output Total 1150 1450 Balance -1150 -1250 Weight 158.757 kg Intake: Intake, IV Titration 200 Amount Piperacillin-Tazobactam 3 200 .375 gm In Sodium Chloride 0.9% 100 ml @ 25 mls/hr IVPB Q8HR [facility] Rx# :[id number] Output: Urine 1150 1450 Other: Voiding Method External Catheter External Catheter Incontinent External Catheter # Bowel Movements 1 - Exam - Constitutional General appearance: disheveled, morbidly obese - EENT Eyes: EOMI, PERRLA ENT: hard of hearing Ears: bilateral: normal - Neck Neck: normal ROM Carotids: bilateral: upstroke normal Thyroid: bilateral: normal size - Respiratory Respiratory: bilateral: diminished - Cardiovascular Rhythm: regular Heart sounds: normal: S1, S2 - Integumentary Integumentary: decreased turgor - Musculoskeletal Musculoskeletal: generalized weakness, strength equal bilaterally - Psychiatric Psychiatric: A&O x's 3 - Labs CBC & Chem 7: 05/06/23 09:38 05/06/23 09:38 Assessment and Plan Assessment: Acute COPD exacerbation on bronchodilators including corticosteroids and antiplatelet and IV steroids Shortness of breath also currently back congestive heart failure and anasarca Disorder breathing and sleep apnea Severe morbid obesity Bronchopneumonia on IV Zosyn Status post fall with pain on the left axilla and shoulder, general surgery evaluated no active intervention needed Plan: Continue IV antibiotics bronchodilators and IV steroid Gentle diuresis Continue supplemental oxygen Deep breathing exercises incentive spirometry We'll follow closely Time with Patient: Greater than 30
[2023-05-12] MEDS: SERTRALINE 50 MG TAB PO SCH (16:26)
[2023-05-12] MEDS: BACLOFEN 10 MG TAB PO PRN (17:11)
--- NOTE | 2023-05-12 22:50 | PN ---
PROGRESS NOTE HISTORY: A 73-year-old white female. She came to the hospital with pneumonia. She is having muscle spasms. We are going to add Robaxin on multiple antibiotics. Breathing treatments, PT/OT involved. Talked to her about going home tomorrow. PHYSICAL EXAMINATION: CARDIOVASCULAR: S1 and S2. LUNGS: Transmitted upper sounds. GI: Soft. HEMATOLOGY: Negative Homans. PSYCH: Fair mood and affect. BMI is over 40. Plan, possible discharge home tomorrow breathing treatments, IV antibiotics, IV Lasix. Generalized debility muscle spasms. Prognosis guarded. MMODL / IJN: [id number] /
[2023-05-13] MEDS: methylPREDNISolone SOD SUCCI 125 MG/2 ML VIAL IV SCH ×4 (00:47→17:10)
[2023-05-13] MEDS: oxyCODONE-APAP 7.5-325MG 1 EACH TAB PO PRN ×3 (00:48→14:57)
[2023-05-13] MEDS: PIPERACILLIN-TAZOBACTAM 3.375 GM in SODIUM CHLORIDE 0.9% 100 ML IVPB SCH ×3 (00:48→14:59)
[2023-05-13] MEDS: HYDROmorphone 1 MG/ML 1 ML SYRINGE IVP PRN ×5 (03:21→21:03)
[2023-05-13] MEDS: FERROUS SULFATE 325 MG TAB PO SCH (06:12)
[2023-05-13] MEDS: LEVOTHYROXINE 75 MCG TAB PO SCH (06:12)
[2023-05-13] MEDS: BACLOFEN 10 MG TAB PO PRN ×2 (06:13→17:47)
[2023-05-13] MEDS: DAPAGLIFLOZIN PROPANEDIOL 10 MG TABLET PO SCH (08:23)
[2023-05-13] MEDS: TORSEMIDE 20 MG TAB PO SCH ×2 (08:23→21:03)
[2023-05-13] MEDS: POTASSIUM CHLORIDE ER 20 MEQ TAB.ER PO SCH (08:23)
[2023-05-13] MEDS: APIXABAN 5 MG TAB PO SCH ×2 (08:23→21:02)
[2023-05-13] MEDS: PANTOPRAZOLE 40 MG TABLET PO SCH (08:24)
[2023-05-13] MEDS: SPIRONOLACTONE 25 MG TAB PO SCH (08:24)
[2023-05-13] MEDS: GABAPENTIN 300 MG CAP PO SCH ×3 (08:24→21:02)
[2023-05-13] MEDS: DICYCLOMINE 20 MG TAB PO SCH ×4 (08:24→21:02)
[2023-05-13] MEDS: carvediloL 6.25 MG TAB PO SCH ×2 (08:24→21:03)
[2023-05-13] MEDS: IPRATROPIUM-ALBUTEROL 3 ML NEB INHALATION SCH ×4 (10:00→18:14)
[2023-05-13] MEDS: BUDESONIDE 0.5 MG/2 ML NEBU INHALATION SCH (10:00)
--- NOTE | 2023-05-13 14:58 | P.PN ---
Subjective Progress Note Date: 05/13/23 CHIEF COMPLAINT: COPD HISTORY OF PRESENT ILLNESS: Patient lying in bed comfortably. Denies any left axillary pain. Patient reports left arm pain is tolerable. Afebrile. PHYSICAL EXAM: VITAL SIGNS: Reviewed. GENERAL: Well-developed in no acute distress. Extremities: Left arm minimal ecchymosis noted ASSESSMENT: 1. Left upper arm and axilla pain with recent fall and on Eliquis PLAN: -No surgical intervention planned -Continue supportive care -Surgical service will sign off. Please call if any questions or concerns. Physician Mine Car Repairer note has been reviewed by physician. Signing provider agrees with the documented findings, assessment, and plan of care. Objective - Vital Signs Vital signs: Vital Signs Temp 97.6 F 05/13/23 06:56 Pulse 65 05/13/23 06:56 Resp 18 05/13/23 06:56 BP 130/72 05/13/23 06:56 Pulse Ox 93 L 05/13/23 06:56 FiO2 Intake & Output 05/12/23 05/13/23 05/13/23 18:59 06:59 18:59 Intake Total 1080 Output Total 066 944 7536 Balance 380 -500 -1400 Weight 158.757 kg Intake: Oral 1080 Output: Urine 298 406 2693 Other: Voiding Method Incontinent External Catheter External Catheter # Voids 1 3 # Bowel Movements 2 - Labs CBC & Chem 7: 05/06/23 09:38 05/06/23 09:38
[2023-05-13] MEDS: SERTRALINE 50 MG TAB PO SCH (17:13)
[2023-05-14] MEDS: PIPERACILLIN-TAZOBACTAM 3.375 GM in SODIUM CHLORIDE 0.9% 100 ML IVPB SCH ×3 (00:15→16:57)
[2023-05-14] MEDS: methylPREDNISolone SOD SUCCI 125 MG/2 ML VIAL IV SCH ×4 (00:29→16:59)
[2023-05-14] MEDS: HYDROmorphone 1 MG/ML 1 ML SYRINGE IVP PRN ×6 (00:29→21:31)
[2023-05-14] MEDS: LEVOTHYROXINE 75 MCG TAB PO SCH (05:12)
[2023-05-14] MEDS: FERROUS SULFATE 325 MG TAB PO SCH (05:12)
[2023-05-14] MEDS: BACLOFEN 10 MG TAB PO PRN (05:12)
[2023-05-14] MEDS: oxyCODONE-APAP 7.5-325MG 1 EACH TAB PO PRN ×2 (06:34→12:09)
[2023-05-14] MEDS: carvediloL 6.25 MG TAB PO SCH ×2 (08:33→20:47)
[2023-05-14] MEDS: SPIRONOLACTONE 25 MG TAB PO SCH (08:33)
[2023-05-14] MEDS: DAPAGLIFLOZIN PROPANEDIOL 10 MG TABLET PO SCH (08:33)
[2023-05-14] MEDS: DICYCLOMINE 20 MG TAB PO SCH ×4 (08:33→21:28)
[2023-05-14] MEDS: PANTOPRAZOLE 40 MG TABLET PO SCH (08:33)
[2023-05-14] MEDS: GABAPENTIN 300 MG CAP PO SCH ×3 (08:33→21:29)
[2023-05-14] MEDS: TORSEMIDE 20 MG TAB PO SCH ×2 (08:33→20:47)
[2023-05-14] MEDS: APIXABAN 5 MG TAB PO SCH ×2 (08:33→20:46)
[2023-05-14] MEDS: POTASSIUM CHLORIDE ER 20 MEQ TAB.ER PO SCH (08:33)
[2023-05-14] MEDS: BUDESONIDE 0.5 MG/2 ML NEBU INHALATION SCH (09:03)
[2023-05-14] MEDS: IPRATROPIUM-ALBUTEROL 3 ML NEB INHALATION SCH ×4 (09:03→21:12)
[2023-05-14] MEDS: SERTRALINE 50 MG TAB PO SCH (16:58)
[2023-05-14] MEDS ORDERED: RX INFO: IV CONTRAST WAS GIVEN 1 EACH MISC MISCELLANE PRN (20:30)
[2023-05-14] MEDS: LORazepam 2 MG/ML INJ IV PRN (21:31)
--- NOTE | 2023-05-14 21:37 | US ---
EXAMINATION TYPE: US carotid duplex BILAT DATE OF EXAM: 05/14/2023 COMPARISON: NONE CLINICAL INDICATION: Female, 73 years old with history of ; Question TIA. Area Sales Manager notes:Pt would not cooperate during exam. Pt states "this is a waste of time" and sighi ng repeatedly during entire exam. Pt kept asking over and over when I would be done. Pt would not let me apply any pressure to her neck. Pt sitting upright and would not turn head in either direction. TECHNIQUE: Carotid duplex ultrasound examination. Indirect Doppler criteria was utilized. FINDINGS: EXAM MEASUREMENTS: RIGHT: Peak Systolic Velocity (PSV) cm/sec ----- Right CCA: 65.1 ----- Right ICA: 75.5 ----- Right ECA: 79.4 ICA/CCA ratio: 1.2 RIGHT: End Diastole cm/sec ----- Right CCA: 11.6 ----- Right ICA: 14.2 ----- Right ECA: 7.7 LEFT: Peak Systolic Velocity (PSV) cm/sec ----- Left CCA: 66.9 ----- Left ICA: 87.8 ----- Left ECA: Not seen ICA/CCA ratio: 1.3 LEFT: End Diastole cm/sec ----- Left CCA: 13.1 ----- Left ICA: 24.1 ----- Left ECA: Not seen VERTEBRALS (direction of flow): Right Vertebral: Not seen Left Vertebral: Not seen Rhythm: Normal MANAGER OF PROJECT MANAGEMENT NOTES: Limited assessment. No plaque seen bilaterally. IMPRESSION: Portions of the exam are significantly limited due to patient noncooperation. No significant plaque is identified at the bifurcations. No hemodynamically significant ICA stenosis on either side. Criteria for Assigning % of Stenosis / Diameter reduction (Estimation based on the indirect measurements of the internal carotid artery velocities (ICA PSV). 1. Normal (no stenosis)=ICA PSV < 125 cm/s: ratio < 2.0: ICA EDV<40 cm/s. 2. Less than 50% stenosis=ICA PSV < 125 cm/s: ratio < 2.0: ICA EDV<40 cm/s. 3. 50 to 69% stenosis=ICA PSV of 125 to 230 cm/s: ration 2.0 ? 4.0: ICA EDV 40-100 cm/s. 4. Greater than 70% stenosis to near occlusion= ICA PSV > 230 cm/s: ratio > 4.0: ICA EDV > 100 cm/s. 5. Near occlusion= ICA PSV velocities may be low or undetectable: variable ratio and ICA EDV. 6. Total occlusion=unable to detect flow.
[2023-05-15] MEDS: PIPERACILLIN-TAZOBACTAM 3.375 GM in SODIUM CHLORIDE 0.9% 100 ML IVPB SCH ×3 (00:08→18:16)
[2023-05-15] MEDS: methylPREDNISolone SOD SUCCI 125 MG/2 ML VIAL IV SCH ×3 (00:09→13:23)
[2023-05-15] MEDS: HYDROmorphone 1 MG/ML 1 ML SYRINGE IVP PRN ×5 (00:32→23:07)
--- NOTE | 2023-05-15 04:26 | PN ---
PROGRESS NOTE OBJECTIVE: 73-year-old white female, being treated for pneumonia. She had worsening tremors hospital. She is stressed out. Recently discussed with the son, he is worried about possible TIAs. She had neurologic workup 2 years ago and 4 years ago. She had a CAT scan that was normal on admission. . Neurologic, mild tremors. Cogwheel rigidity negative. OBJECTIVE: VITAL SIGNS: Blood pressure , O2 is 98% on 4 L, temperature 98.5, pulse 85, respiratory rate 16 to 18. CARDIOVASCULAR: S1, S2. LUNGS: Transmitted upper sounds. ENDOCRINE: BMI is over 40. ASSESSMENT: Essential tremor versus anxiety tremor versus secondary side effects. Solu-Medrol, breathing treatments. Negative cogwheel rigidity. PT/OT, continue with that. She has been up in the chair. Her breathing is better. steroid taper, antibiotics, etc. Prognosis guarded. MMODL / IJN: [id number] /
[2023-05-15] MEDS: LEVOTHYROXINE 75 MCG TAB PO SCH (05:46)
[2023-05-15] MEDS: FERROUS SULFATE 325 MG TAB PO SCH (05:46)
[2023-05-15] MEDS: BACLOFEN 10 MG TAB PO PRN ×3 (05:53→14:09)
[2023-05-15] MEDS: LORazepam 2 MG/ML INJ IV PRN ×3 (06:50→23:07)
[2023-05-15] MEDS: BUDESONIDE 0.5 MG/2 ML NEBU INHALATION SCH (08:02)
[2023-05-15] MEDS: IPRATROPIUM-ALBUTEROL 3 ML NEB INHALATION SCH ×4 (08:02→18:59)
[2023-05-15] MEDS: APIXABAN 5 MG TAB PO SCH ×2 (08:42→23:03)
[2023-05-15] MEDS: carvediloL 6.25 MG TAB PO SCH ×2 (08:42→23:03)
[2023-05-15] MEDS: GABAPENTIN 300 MG CAP PO SCH ×3 (08:42→23:03)
[2023-05-15] MEDS: POTASSIUM CHLORIDE ER 20 MEQ TAB.ER PO SCH (09:24)
[2023-05-15] MEDS: oxyCODONE-APAP 7.5-325MG 1 EACH TAB PO PRN (09:24)
[2023-05-15] MEDS: SPIRONOLACTONE 25 MG TAB PO SCH (09:25)
[2023-05-15] MEDS: DAPAGLIFLOZIN PROPANEDIOL 10 MG TABLET PO SCH (09:25)
[2023-05-15] MEDS: DICYCLOMINE 20 MG TAB PO SCH ×4 (09:25→21:50)
[2023-05-15] MEDS: PANTOPRAZOLE 40 MG TABLET PO SCH (09:25)
[2023-05-15] MEDS: TORSEMIDE 20 MG TAB PO SCH ×2 (09:25→23:03)
--- NOTE | 2023-05-15 15:14 | P.PN ---
Subjective Progress Note Date: 05/15/23 Principal diagnosis: Acute COPD exacerbation on bronchodilators including corticosteroids and antiplatelet and IV steroids Shortness of breath also currently back congestive heart failure and anasarca Disorder breathing and sleep apnea Severe morbid obesity Bronchopneumonia on IV Zosyn 05/15/2023, patient seen eval examined during rounds labs reviewed medications reviewed, swelling in the lower extremity slightly better, patient however remains on 4 L oxygen, slightly anxious tremulous waiting for Ativan. Patient is afebrile, hemodynamic status stable, saturation 95% oxygen have been just lowered to 2 L now sats remained 95%. Patient remains on bronchodilator Y zhane ball also on diet-controlled anticoagulant, patient is also on aerosolized corticosteroids Solu-Medrol remains 60 mg IV every 6 we'll start titrating down however it can be discontinued prior to discharge 05/12/2023, patient seen and evaluated examined during rounds, ongoing shortness of breath intermittent dry cough is present, patient has generalized swelling and anasarca as well. She remains on 4 L oxygen, saturation is 94%, hemodynamic status stable. Patient fell down on the left common axilla general surgery is evaluated recommended no surgical intervention This is a 73-year-old morbidly obese female predominantly bed and wheelchair bound patient has been oxygen 4 L nasal cannula at home, for 1 week started having increasing shortness of breath cough she has been treated with outpatient oral antibiotics history are without any relief decided to come into the hospital, patient also had increased swelling of the lower extremity extending up to abdomen. On specific questioning denies any chest pain denies any loss of consciousness, denies any nausea vomiting diarrhea no night sweats fever or chills. Her past medical history seen by hypothyroidism, congestive heart failure, chronic atrial fibrillation, sleep apnea and sleep Disorder breathing, depression, COPD, congestive heart failure and chronic diastolic heart failure Objective - Vital Signs Vital signs: Vital Signs Temp 98.4 F 05/15/23 13:43 Pulse 64 05/15/23 13:43 Resp 17 05/15/23 13:43 BP 143/68 05/15/23 13:43 Pulse Ox 95 05/15/23 13:43 FiO2 Intake & Output 05/14/23 05/15/23 05/15/23 18:59 06:59 18:59 Output Total 0815 837 1550 Balance -1875 -800 -1300 Output: Urine 0719 911 5244 Other: Voiding Method External Catheter - Exam - Constitutional General appearance: disheveled, morbidly obese - EENT Eyes: EOMI, PERRLA ENT: hard of hearing Ears: bilateral: normal - Neck Neck: normal ROM Carotids: bilateral: upstroke normal Thyroid: bilateral: normal size - Respiratory Respiratory: bilateral: diminished - Cardiovascular Rhythm: regular Heart sounds: normal: S1, S2 - Integumentary Integumentary: decreased turgor - Musculoskeletal Musculoskeletal: generalized weakness, strength equal bilaterally - Psychiatric Psychiatric: A&O x's 3 - Labs CBC & Chem 7: 05/06/23 09:38 05/06/23 09:38 Assessment and Plan Assessment: Acute COPD exacerbation on bronchodilators including corticosteroids and antiplatelet and IV steroids can be switched to oral at the time of discharge Shortness of breath also currently back congestive heart failure and anasarca Disorder breathing and sleep apnea Severe morbid obesity Bronchopneumonia on IV Zosyn can be switched to oral at the time of discharge Status post fall with pain on the left axilla and shoulder, general surgery evaluated no active intervention needed Plan: Continue IV antibiotics bronchodilators and IV steroid Gentle diuresis Continue supplemental oxygen Deep breathing exercises incentive spirometry We'll follow closely Time with Patient: Greater than 30
[2023-05-15] MEDS: SERTRALINE 50 MG TAB PO SCH (18:17)
[2023-05-15] MEDS: methylPREDNISolone SOD SUCCI 40 MG/ML 1 ML VIAL IV SCH (23:04)
[2023-05-16] MEDS: PIPERACILLIN-TAZOBACTAM 3.375 GM in SODIUM CHLORIDE 0.9% 100 ML IVPB SCH ×3 (01:04→16:19)
[2023-05-16] MEDS: oxyCODONE-APAP 7.5-325MG 1 EACH TAB PO PRN ×2 (02:16→14:02)
[2023-05-16] MEDS: HYDROmorphone 1 MG/ML 1 ML SYRINGE IVP PRN ×4 (04:19→18:24)
[2023-05-16] MEDS: LEVOTHYROXINE 75 MCG TAB PO SCH (06:48)
[2023-05-16] MEDS: FERROUS SULFATE 325 MG TAB PO SCH (06:49)
[2023-05-16] MEDS: LORazepam 2 MG/ML INJ IV PRN ×2 (06:55→16:26)
--- NOTE | 2023-05-16 08:28 | PN ---
PROGRESS NOTE SUBJECTIVE: The patient says she is not ready to go home yet. She has no one at home even to help her. Currently, her son is in the hospital. She is getting up to chair little bit. Her breathing is still bad, it is 98 on room air though. OBJECTIVE: VITAL SIGNS: Blood pressure 129/73, temp 98.4, pulse 74, respiratory rate 16 to 18. CARDIOVASCULAR: S1, S2. LUNGS: Scattered rhonchi and wheeze. Decreased breath sounds. ABDOMEN: BMI is over 50 morbid obesity. Labs reviewed. Negative D-dimer. She was supposed to get a CAT scan of the head and carotid due to worsening dizziness. She refused the CAT scan of her head. She had another CAT scan on admission without contrast which was negative and carotid was also negative for blockage. She will continue on Ativan or Klonopin for anxiety etc. The patient possibly can go home in the next 24 to 48 hours. MMODL / IJN: [id number] /
[2023-05-16] MEDS: PANTOPRAZOLE 40 MG TABLET PO SCH (08:46)
[2023-05-16] MEDS: GABAPENTIN 300 MG CAP PO SCH ×3 (08:46→21:10)
[2023-05-16] MEDS: SPIRONOLACTONE 25 MG TAB PO SCH (08:46)
[2023-05-16] MEDS: BACLOFEN 10 MG TAB PO PRN ×2 (08:46→21:38)
[2023-05-16] MEDS: POTASSIUM CHLORIDE ER 20 MEQ TAB.ER PO SCH (08:46)
[2023-05-16] MEDS: carvediloL 6.25 MG TAB PO SCH ×2 (08:47→21:10)
[2023-05-16] MEDS: DICYCLOMINE 20 MG TAB PO SCH ×4 (08:47→21:10)
[2023-05-16] MEDS: APIXABAN 5 MG TAB PO SCH ×2 (08:47→21:10)
[2023-05-16] MEDS: DAPAGLIFLOZIN PROPANEDIOL 10 MG TABLET PO SCH (08:48)
[2023-05-16] MEDS: TORSEMIDE 20 MG TAB PO SCH ×2 (08:48→21:10)
[2023-05-16] MEDS: methylPREDNISolone SOD SUCCI 40 MG/ML 1 ML VIAL IV SCH ×2 (08:49→21:10)
[2023-05-16] MEDS: IPRATROPIUM-ALBUTEROL 3 ML NEB INHALATION SCH ×4 (09:05→21:23)
[2023-05-16] MEDS: BUDESONIDE 0.5 MG/2 ML NEBU INHALATION SCH (09:05)
--- NOTE | 2023-05-16 13:20 | PN ---
PROGRESS NOTE SUBJECTIVE: She was admitted with COPD, pneumonia is being treated. Dr. Stiles has been seeing her. Dr. Howard has been seeing her for Pulmonary. Continues on steroids, antibiotics, PT OT. She is getting out of bed a little bit. She still does not feel well. Her tremors are better with Ativan I gave her yesterday. She is breathing better. Possibly go home in next 24 to 48 hours. She has anasarca type changes, CHF changes, acute on chronic diastolic. She has obstructive sleep apnea. She wears oxygen at home. At nighttime, she is on 2 L during the day. She remains on broad-spectrum antibiotics bronchodilators, etc. She had a carotid ultrasound which was negative. She has refused a CAT scan of the brain. She came here with an MRI of the brain. She had a CAT scan on admission, showed no intracranial bleed. Carotids are normal. Prognosis is guarded. Continue current treatments. Follow up next 24 to 48 hours. OBJECTIVE: LUNGS: Clear. CARDIOVASCULAR: S1, S2. GI: Distended, obesity. HEMATOLOGY: Anasarca changes. Continue current treatments. Prognosis guarded, home soon. MMODL / IJN: [id number] /
--- NOTE | 2023-05-16 13:28 | PN ---
PROGRESS NOTE SUBJECTIVE: The patient has negative carotid Doppler. Dr. Howard saw her. She remains on oxygen for bilateral pneumonia, chronic atrial fibrillation, sleep apnea, acute on chronic anemia. She is on blood thinners for atrial fibrillation. Awaiting Oncology recommendations on medicines. She has COPD exacerbation, bilateral pneumonia. She has acute on chronic diastolic heart failure, anasarca, disordered breathing, sleep apnea. She has a wound on her left heel. She has positive bronchopneumonia. She has positive blood culture for which Dr. Stiles is recommending repeating blood cultures. Continue on IV antibiotics until then. PROGNOSIS: Guarded. We will check and monitor hemoglobin. MMODL / IJN: [id number] /
[2023-05-16] MEDS: SERTRALINE 50 MG TAB PO SCH (16:19)
[2023-05-17] MEDS: HYDROmorphone 1 MG/ML 1 ML SYRINGE IVP PRN ×6 (00:09→21:13)
[2023-05-17] MEDS: LORazepam 2 MG/ML INJ IV PRN ×3 (01:23→19:41)
[2023-05-17] MEDS: oxyCODONE-APAP 7.5-325MG 1 EACH TAB PO PRN ×2 (04:07→18:17)
[2023-05-17] MEDS: LEVOTHYROXINE 75 MCG TAB PO SCH (05:16)
[2023-05-17] MEDS: FERROUS SULFATE 325 MG TAB PO SCH (05:16)
[2023-05-17] MEDS: PANTOPRAZOLE 40 MG TABLET PO SCH ×2 (08:03→21:14)
[2023-05-17] MEDS: carvediloL 6.25 MG TAB PO SCH ×2 (08:03→19:32)
[2023-05-17] MEDS: SPIRONOLACTONE 25 MG TAB PO SCH (08:03)
[2023-05-17] MEDS: APIXABAN 5 MG TAB PO SCH ×2 (08:04→19:32)
[2023-05-17] MEDS: DICYCLOMINE 20 MG TAB PO SCH ×4 (08:04→21:14)
[2023-05-17] MEDS: POTASSIUM CHLORIDE ER 20 MEQ TAB.ER PO SCH (08:04)
[2023-05-17] MEDS: GABAPENTIN 300 MG CAP PO SCH ×3 (08:04→19:32)
[2023-05-17] MEDS: methylPREDNISolone SOD SUCCI 40 MG/ML 1 ML VIAL IV SCH ×2 (08:04→21:14)
[2023-05-17] MEDS: DAPAGLIFLOZIN PROPANEDIOL 10 MG TABLET PO SCH (08:05)
[2023-05-17] MEDS: TORSEMIDE 20 MG TAB PO SCH ×2 (08:07→19:32)
[2023-05-17 09:01] LABS: Basophils # (A) 0.02 X 10*3/uL (0.00-0.10); Basophils % (A) 0.2 %; Eosinophils # (A) 0 X 10*3/uL (0.04-0.35); Eosinophils % (A) 0 %; HCT 38.4 % (37.2-46.3); HGB 12.1 d/dL (12.0-15.0); Lymphocytes # (A) 0.45 X 10*3/uL (0.90-5.00); Lymphocytes % (A) 3.7 %; MCH 27.1 pg (27.0-32.0); MCHC 31.5 d/dL (32.0-37.0); MCV 86.1 FL (80.0-97.0); Mean Platelet Volume 9.9 FL (9.5-12.2); Monocytes # (A) 0.54 X 10*3/uL (0.20-1.00); Monocytes % (A) 4.4 %; NRBC Per 100 WBC 0 X 10*3/uL (0.00-0.01); Neutrophils # (A) 10.98 X 10*3/uL (1.80-7.70); Neutrophils % (A) 90.3 %; Platelet Count 227 X 10*3/uL (140-440); RBC 4.46 X 10*6/uL (4.10-5.20); RDW 14.7 % (11.5-14.5); WBC 12.16 X 10*3/uL (4.50-10.00)
[2023-05-17 09:14] LABS: ALT 36 U/L (8-44); AST 14 U/L (13-35); Albumin 3.7 d/dL (3.8-4.9); Albumin/Globulin Ratio 1.76 Ratio (1.60-3.17); Alkaline Phosphatase 58 U/L (41-126); Blood Urea Nitrogen 49.5 mg/dL (9.0-27.0); Calcium 9.2 mg/dL (8.7-10.3); Carbon Dioxide 37.1 mmol/L (21.6-31.8); Chloride 96 mmol/L (96-109); Globulin 2.1 d/dL (1.6-3.3); Glucose 128 mg/dL (70-110); Potassium 4.5 mmol/L (3.5-5.5); Sodium 144 mmol/L (135-145); Total Bilirubin 0.6 mg/dL (0.3-1.2); Total Protein 5.8 d/dL (6.2-8.2)
[2023-05-17] MEDS: BUDESONIDE 0.5 MG/2 ML NEBU INHALATION SCH (09:46)
[2023-05-17] MEDS: IPRATROPIUM-ALBUTEROL 3 ML NEB INHALATION SCH ×4 (09:46→21:29)
--- NOTE | 2023-05-17 12:26 | PN ---
PROGRESS NOTE VITAL SIGNS: Reviewed. Blood pressure is 143/83, saturating 98 on 4 L, pulse 64, respiratory rate 18 to 20. CARDIOVASCULAR: S1, S2. LUNGS: Scattered rhonchi and wheeze. HEMATOLOGY: Negative for Homans. PSYCH: Alert and oriented x3. Fair mood except for anxiety. She is very anxious and nervous. NEUROLOGIC: Cranial nerves intact. NEUROLOGIC: Cranial nerves intact. INTEGUMENT: No rashes. She has anasarca type changes. EXTREMITIES: Strength is may be 4/5 x4 extremities. She has been up in the chair a little bit. White count is 12.6. Her tremors are much better with the Ativan. Hemoglobin is 12.1, neutrophils 10.98. Sodium 144, potassium 4.5, CO2 is high at 37, possibly she has not been wearing her oxygen, elevating her CO2. She has sleep apnea. Sugars have been in the mid 100s. Albumin level is 3.7, improved from 3.2. home anyways. White count elevation possibly secondary to some steroids. She has chronic atrial fibrillation and sleep apnea. She has COPD exacerbation, diastolic CHF, acute on chronic anasarca changes, sleep apnea, morbid obesity, noncompliant with her oxygen and breathing treatments. She is on IV Zosyn for bronchopneumonia, possibly switch to oral on discharge home next day or so. MMODL / IJN: [id number] /
[2023-05-17] MEDS: SERTRALINE 50 MG TAB PO SCH (17:13)
[2023-05-17] MEDS: AZITHROMYCIN 500 MG in SODIUM CHLORIDE 0.9% 250 ML IVPB SCH (22:11)
[2023-05-18] MEDS: PIPERACILLIN-TAZOBACTAM 3.375 GM in SODIUM CHLORIDE 0.9% 100 ML IVPB SCH ×4 (00:09→23:16)
[2023-05-18] MEDS: oxyCODONE-APAP 7.5-325MG 1 EACH TAB PO PRN ×3 (02:11→21:07)
[2023-05-18] MEDS: LORazepam 2 MG/ML INJ IV PRN ×3 (03:05→17:30)
[2023-05-18] MEDS: FERROUS SULFATE 325 MG TAB PO SCH (06:01)
[2023-05-18] MEDS: LEVOTHYROXINE 75 MCG TAB PO SCH (06:02)
[2023-05-18] MEDS: HYDROmorphone 1 MG/ML 1 ML SYRINGE IVP PRN ×3 (06:02→19:29)
[2023-05-18] MEDS: PANTOPRAZOLE 40 MG TABLET PO SCH ×2 (06:34→17:31)
[2023-05-18] MEDS: GABAPENTIN 300 MG CAP PO SCH ×3 (08:15→19:29)
[2023-05-18] MEDS: carvediloL 6.25 MG TAB PO SCH ×2 (08:15→19:29)
[2023-05-18] MEDS: APIXABAN 5 MG TAB PO SCH ×2 (08:15→19:29)
[2023-05-18] MEDS: DICYCLOMINE 20 MG TAB PO SCH ×4 (08:15→19:29)
[2023-05-18] MEDS: SPIRONOLACTONE 25 MG TAB PO SCH (08:15)
[2023-05-18] MEDS: TORSEMIDE 20 MG TAB PO SCH ×2 (08:15→19:29)
[2023-05-18] MEDS: POTASSIUM CHLORIDE ER 20 MEQ TAB.ER PO SCH (08:15)
[2023-05-18] MEDS: DAPAGLIFLOZIN PROPANEDIOL 10 MG TABLET PO SCH (08:16)
[2023-05-18] MEDS: AZITHROMYCIN 500 MG in SODIUM CHLORIDE 0.9% 250 ML IVPB SCH (08:16)
[2023-05-18 08:54] LABS: HCT 36.1 % (37.2-46.3); HGB 11.2 d/dL (12.0-15.0); MCH 26.6 pg (27.0-32.0); MCV 85.7 FL (80.0-97.0); Mean Platelet Volume 9.5 FL (9.5-12.2); NRBC Per 100 WBC 0 X 10*3/uL (0.00-0.01); Platelet Count 195 X 10*3/uL (140-440); RBC 4.21 X 10*6/uL (4.10-5.20); RDW 14.7 % (11.5-14.5)
[2023-05-18 08:55] LABS: Basophils # (A) 0.02 X 10*3/uL (0.00-0.10); Basophils % (A) 0.1 %; Eosinophils # (A) 0 X 10*3/uL (0.04-0.35); Eosinophils % (A) 0 %; Lymphocytes # (A) 0.39 X 10*3/uL (0.90-5.00); Lymphocytes % (A) 2.9 %; Monocytes # (A) 0.55 X 10*3/uL (0.20-1.00); Neutrophils # (A) 12.47 X 10*3/uL (1.80-7.70); Neutrophils % (A) 91.7 %
[2023-05-18] MEDS: BUDESONIDE 0.5 MG/2 ML NEBU INHALATION SCH (09:17)
[2023-05-18] MEDS: IPRATROPIUM-ALBUTEROL 3 ML NEB INHALATION SCH ×4 (09:17→21:05)
[2023-05-18 09:20] LABS: ALT 37 U/L (8-44); AST 14 U/L (13-35); Albumin 3.5 d/dL (3.8-4.9); Albumin/Globulin Ratio 1.84 Ratio (1.60-3.17); Alkaline Phosphatase 57 U/L (41-126); BUN/Creat Ratio 46.33 Ratio (12.00-20.00); Blood Urea Nitrogen 55.6 mg/dL (9.0-27.0); Calcium 9.2 mg/dL (8.7-10.3); Carbon Dioxide 37.3 mmol/L (21.6-31.8); Chloride 96 mmol/L (96-109); Globulin 1.9 d/dL (1.6-3.3); Glucose 129 mg/dL (70-110); Potassium 4.3 mmol/L (3.5-5.5); Sodium 144 mmol/L (135-145); Total Bilirubin 0.5 mg/dL (0.3-1.2); Total Protein 5.4 d/dL (6.2-8.2)
[2023-05-18] MEDS: methylPREDNISolone SOD SUCCI 40 MG/ML 1 ML VIAL IV SCH ×2 (09:57→19:29)
[2023-05-18] MEDS: SERTRALINE 50 MG TAB PO SCH (17:31)
[2023-05-18] MEDS: PRIMIDONE 50 MG TAB PO SCH (21:37)
[2023-05-18] MEDS ORDERED: PRIMIDONE 25 MG TAB PO SCH (22:00)
--- NOTE | 2023-05-18 23:34 | PN ---
PROGRESS NOTE SUBJECTIVE: This is a 73-year-old white female, white count is 13.6, hemoglobin is 11.2. D-dimer is negative. Sodium was 144, potassium 4.3, CO2 is high at 37. We are trying to get her to wear possibly a CPAP machine. Lactic acid is good. Glucose is mid 100s. OBJECTIVE: VITAL SIGNS: Temperature 98.1, pulse 82, respiratory rate 16 to 18, blood pressure 120/78, and O2 is 98 on 4 L. PLAN: Continue to treat for possible tracheobronchitis and pneumonia, hypercapnic respiratory failure. Try BiPAP at night if needed, if she will not wear oxygen, continue breathing treatments. Prognosis guarded. Please see further orders. Possible discharge home if patient agrees on oral antibiotics on discharge. Prognosis guarded. MMODL / IJN: [id number] /
[2023-05-19] MEDS: LORazepam 2 MG/ML INJ IV PRN ×3 (01:32→18:14)
[2023-05-19] MEDS: FERROUS SULFATE 325 MG TAB PO SCH (05:40)
[2023-05-19] MEDS: LEVOTHYROXINE 75 MCG TAB PO SCH (05:40)
[2023-05-19] MEDS: HYDROmorphone 1 MG/ML 1 ML SYRINGE IVP PRN ×3 (05:40→21:32)
[2023-05-19] MEDS: PRIMIDONE 50 MG TAB PO SCH ×3 (08:57→21:30)
[2023-05-19] MEDS: carvediloL 6.25 MG TAB PO SCH ×2 (08:58→21:31)
[2023-05-19] MEDS: GABAPENTIN 300 MG CAP PO SCH ×3 (08:58→21:31)
[2023-05-19] MEDS: SPIRONOLACTONE 25 MG TAB PO SCH (08:58)
[2023-05-19] MEDS: DICYCLOMINE 20 MG TAB PO SCH ×4 (08:59→21:31)
[2023-05-19] MEDS: POTASSIUM CHLORIDE ER 20 MEQ TAB.ER PO SCH (08:59)
[2023-05-19] MEDS: methylPREDNISolone SOD SUCCI 40 MG/ML 1 ML VIAL IV SCH ×2 (08:59→21:29)
[2023-05-19] MEDS: APIXABAN 5 MG TAB PO SCH ×2 (08:59→21:31)
[2023-05-19] MEDS: PANTOPRAZOLE 40 MG TABLET PO SCH ×2 (08:59→17:26)
[2023-05-19] MEDS: AZITHROMYCIN 500 MG in SODIUM CHLORIDE 0.9% 250 ML IVPB SCH (09:00)
[2023-05-19] MEDS: BUDESONIDE 0.5 MG/2 ML NEBU INHALATION SCH (09:05)
[2023-05-19] MEDS: IPRATROPIUM-ALBUTEROL 3 ML NEB INHALATION SCH ×4 (09:05→20:01)
[2023-05-19] MEDS: TORSEMIDE 20 MG TAB PO SCH ×2 (09:07→21:31)
[2023-05-19] MEDS: DAPAGLIFLOZIN PROPANEDIOL 10 MG TABLET PO SCH (09:07)
[2023-05-19] MEDS: PIPERACILLIN-TAZOBACTAM 3.375 GM in SODIUM CHLORIDE 0.9% 100 ML IVPB SCH ×2 (10:29→17:27)
[2023-05-19 11:16] LABS: Basophils # (A) 0.01 X 10*3/uL (0.00-0.10); Basophils % (A) 0.1 %; Eosinophils # (A) 0 X 10*3/uL (0.04-0.35); Eosinophils % (A) 0 %; HCT 33.3 % (37.2-46.3); HGB 10.1 d/dL (12.0-15.0); Lymphocytes # (A) 0.52 X 10*3/uL (0.90-5.00); Lymphocytes % (A) 3.5 %; MCH 26.7 pg (27.0-32.0); MCHC 30.3 d/dL (32.0-37.0); MCV 88.1 FL (80.0-97.0); Mean Platelet Volume 9.6 FL (9.5-12.2); Monocytes # (A) 0.73 X 10*3/uL (0.20-1.00); Monocytes % (A) 4.9 %; NRBC Per 100 WBC 0 X 10*3/uL (0.00-0.01); Neutrophils # (A) 13.43 X 10*3/uL (1.80-7.70); Neutrophils % (A) 90.4 %; Platelet Count 173 X 10*3/uL (140-440); RBC 3.78 X 10*6/uL (4.10-5.20); WBC 14.85 X 10*3/uL (4.50-10.00)
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
--- NOTE | 2023-05-19 14:34 | XR ---
EXAMINATION TYPE: XR chest 1V portable DATE OF EXAM: 05/19/2023 COMPARISON: 05/06/2023 INDICATION: Pneumonia TECHNIQUE: Single frontal view of the chest is obtained. FINDINGS: The heart size is normal. The pulmonary vasculature is normal. The lungs are clear. Catheters present on the right with the tip in the superior vena cava region. IMPRESSION: 1. No acute pulmonary process.
[2023-05-19] MEDS: NYSTATIN 100,000 UNIT/ML SUSP 500,000 UNIT/5 ML CUP PO SCH ×3 (14:51→21:30)
[2023-05-19] MEDS: SERTRALINE 50 MG TAB PO SCH (17:26)
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
[2023-05-20] MEDS: PIPERACILLIN-TAZOBACTAM 3.375 GM in SODIUM CHLORIDE 0.9% 100 ML IVPB SCH ×2 (00:10→07:14)
[2023-05-20 05:03] LABS: Appearance,Urine Clear (Clear); Bilirubin,Urine Negative (Negative); Blood,Urine Negative (Negative); Color,Urine Colorless; Glucose,Urine (UA) 2+ (Negative); Ketones,Urine Negative (Negative); Leukocyte Esterase,Urine Negative (Negative); Nitrite,Urine Negative (Negative); Protein,Urine Negative (Negative); Specific Gravity,Urine 1.008 (1.001-1.035); Urobilinogen,Urine <2.0 mg/dL (<2.0)
[2023-05-20] MEDS: HYDROmorphone 1 MG/ML 1 ML SYRINGE IVP PRN ×2 (05:23→11:01)
[2023-05-20] MEDS: PANTOPRAZOLE 40 MG TABLET PO SCH ×2 (05:23→16:10)
[2023-05-20] MEDS: LEVOTHYROXINE 75 MCG TAB PO SCH (05:23)
[2023-05-20] MEDS: FERROUS SULFATE 325 MG TAB PO SCH (05:23)
--- NOTE | 2023-05-20 06:29 | PN ---
PROGRESS NOTE SUBJECTIVE: Renée Krishnan came in to the room tonight. She has all over her chest and she has normal oxygen. She has trouble with breathing in her sleep. Will go up her oxygen back on. Told her to stop eating while laying flat. She is aspirating, getting pneumonia. She says she wants to stay 3 or 4 days or more, she is waiting for a foot brace from Orthopedics. OBJECTIVE: CARDIOVASCULAR: S1, S2. LUNGS: Transmitted upper sounds. GI: Soft. HEMATOLOGY: Negative for Homans. PLAN: Wait for foot brace of the left foot. Continue breathing treatments, oxygen compliance. Stop eating in bed. Get PT OT involved. MMODL / IJN: [id number] /
[2023-05-20] MEDS: DICYCLOMINE 20 MG TAB PO SCH ×4 (07:17→21:53)
[2023-05-20] MEDS: carvediloL 6.25 MG TAB PO SCH ×2 (07:17→21:54)
[2023-05-20] MEDS: GABAPENTIN 300 MG CAP PO SCH ×3 (07:17→21:53)
[2023-05-20] MEDS: APIXABAN 5 MG TAB PO SCH ×2 (07:17→21:54)
[2023-05-20] MEDS: PRIMIDONE 50 MG TAB PO SCH ×3 (07:18→21:53)
[2023-05-20] MEDS: SPIRONOLACTONE 25 MG TAB PO SCH (07:18)
[2023-05-20] MEDS: POTASSIUM CHLORIDE ER 20 MEQ TAB.ER PO SCH (07:18)
[2023-05-20] MEDS: NYSTATIN 100,000 UNIT/ML SUSP 500,000 UNIT/5 ML CUP PO SCH ×4 (07:18→21:53)
[2023-05-20] MEDS: TORSEMIDE 20 MG TAB PO SCH ×2 (07:19→21:52)
[2023-05-20] MEDS: DAPAGLIFLOZIN PROPANEDIOL 10 MG TABLET PO SCH (07:19)
[2023-05-20] MEDS: methylPREDNISolone SOD SUCCI 40 MG/ML 1 ML VIAL IV SCH ×2 (08:20→21:53)
[2023-05-20] MEDS: IPRATROPIUM-ALBUTEROL 3 ML NEB INHALATION SCH ×4 (08:44→21:23)
[2023-05-20] MEDS: BUDESONIDE 0.5 MG/2 ML NEBU INHALATION SCH (08:44)
--- NOTE | 2023-05-20 11:46 | P.PN ---
Subjective Progress Note Date: 05/20/23 Principal diagnosis: Leukocytosis Patient is a 73-year-old male with multiple comorbidities including atrial fibrillation PE pneumonia [place] CVA TIA COPD heart failure, initially presented to hospital for evaluation of increasing shortness of breath chest x- ray did show some infiltrate and the patient be treated for possible pneumonia with Zosyn did have worsening of the white count probably this infectious disease consultation. On today's evaluation that is 05/20/2023, the patient remains to be afebrile the patient is breathing comfortably on 4 L nasal cannula oxygen, the patient denies chest pain, shortness of breath or cough, patient denies nausea/vomiting , no diarrhea and no abdominal pain Patient white count of 14.8 as of yesterday, CBC is pending from today urine was negative, chest x-ray negative Objective - Vital Signs Vital signs: Vital Signs Temp 97.7 F 05/20/23 07:17 Pulse 69 05/20/23 07:17 Resp 16 05/20/23 07:17 BP 111/73 05/20/23 07:17 Pulse Ox 99 05/20/23 07:17 FiO2 Intake & Output 05/19/23 05/20/23 05/20/23 18:59 06:59 18:59 Intake Total 200 Output Total 0 Balance 200 Intake: Intake, IV Titration 200 Amount Piperacillin-Tazobactam 3 200 .375 gm In Sodium Chloride 0.9% 100 ml @ 25 mls/hr IVPB Q8HR [facility] Rx# :[id number] Output: Urine 0 Other: Voiding Method External Catheter Incontinent Diaper Incontinent # Voids 4 - Exam GENERAL DESCRIPTION: An elderly female lying in bed in no distress RESPIRATORY SYSTEM: Unlabored breathing , decreased breath sounds at bases HEART: S1 S2 regular rate and rhythm , ABDOMEN: Soft , no tenderness EXTREMITIES: Diffuse swelling to bilateral lower extremity no redness - Labs CBC & Chem 7: 05/19/23 07:40 05/18/23 06:00 Labs: Abnormal Lab Results - Last 24 Hours (Table) 05/20/23 Range/Units 04:45 Urine Glucose (UA) 2+ H (Negative) Assessment and Plan (1) Leukocytosis Current Visit: No Status: Acute Code(s): D72.829 - ELEVATED WHITE BLOOD CELL COUNT, UNSPECIFIED SNOMED Code(s): 514322769 Plan: 1patient with a leukocytosis in this patient who has been in the hospital for almost 2 weeks now with initial presentation with increasing shortness of breath and cough and concerning for possible pneumonia for the patient has received Zosyn patient did not have any fever during this admission and is recovering of some sores in the mouth and evidence of thrush possibly responsible for this elevated white count has clinically doubt worsening pneumonia the patient refused chest x-ray this morning 2-blood cultures have been obtained , patient did have a normal CRP and procalcitonin, chest x-ray negative for acute infiltrate in urine is negative 3-we will continue with nystatin swish and swallow cannot use Diflucan because of interaction with other medication patient is already on and wait for a CBC f rom this morning Dictation was produced using [employer] dictation software. please excuse any grammatical, word or spelling errors. Time with Patient: Less than 30
[2023-05-20] MEDS ORDERED: VANCOMYCIN IV PER PHARMACY 1 EACH MISC MISCELLANE PRN (13:17)
[2023-05-20] MEDS ORDERED: VANCOMYCIN 2,250 MG in SODIUM CHLORIDE 0.9% 500 ML 500 ML IVPB ONE (13:30)
[2023-05-20 15:07] LABS: Basophils % (A) 0 %; Eosinophils % (A) 0 %; HCT 37.7 % (34.0-46.0); HGB 12.1 gm/dL (11.4-16.0); Lymphocytes # (A) 0.4 k/uL (1.0-4.8); Lymphocytes % (A) 2 %; MCH 27.6 pg (25.0-35.0); MCHC 32.2 g/dL (31.0-37.0); MCV 85.5 fL (80.0-100.0); Mean Platelet Volume 7.4; Monocytes # (A) 0.3 k/uL (0-1.0); Monocytes % (A) 2 %; Neutrophils # (A) 15.1 k/uL (1.3-7.7); Neutrophils % (A) 95 %; Platelet Count 196 k/uL (150-450); RBC 4.41 m/uL (3.80-5.40); RDW 14.5 % (11.5-15.5); WBC 15.9 k/uL (3.8-10.6)
[2023-05-20] MEDS: SERTRALINE 50 MG TAB PO SCH (16:10)
[2023-05-20] MEDS ORDERED: HYDROmorphone 0.5 MG/0.5 ML SYRINGE ONE (23:28)
[2023-05-21] MEDS: FERROUS SULFATE 325 MG TAB PO SCH (06:14)
[2023-05-21] MEDS: PANTOPRAZOLE 40 MG TABLET PO SCH ×2 (06:14→17:17)
[2023-05-21] MEDS: LEVOTHYROXINE 75 MCG TAB PO SCH (06:14)
[2023-05-21] MEDS: oxyCODONE-APAP 7.5-325MG 1 EACH TAB PO PRN ×4 (06:38→21:57)
[2023-05-21] MEDS: IPRATROPIUM-ALBUTEROL 3 ML NEB INHALATION SCH ×4 (08:38→21:09)
[2023-05-21] MEDS: BUDESONIDE 0.5 MG/2 ML NEBU INHALATION SCH (08:38)
[2023-05-21] MEDS: methylPREDNISolone SOD SUCCI 40 MG/ML 1 ML VIAL IV SCH ×2 (08:47→20:20)
[2023-05-21] MEDS: GABAPENTIN 300 MG CAP PO SCH ×3 (08:48→20:20)
[2023-05-21] MEDS: POTASSIUM CHLORIDE ER 20 MEQ TAB.ER PO SCH (08:48)
[2023-05-21] MEDS: APIXABAN 5 MG TAB PO SCH ×2 (08:48→20:20)
[2023-05-21] MEDS: DICYCLOMINE 20 MG TAB PO SCH ×4 (08:48→20:22)
[2023-05-21] MEDS: SPIRONOLACTONE 25 MG TAB PO SCH (08:48)
[2023-05-21] MEDS: carvediloL 6.25 MG TAB PO SCH ×2 (08:48→20:20)
[2023-05-21] MEDS: PRIMIDONE 50 MG TAB PO SCH ×3 (08:48→20:20)
[2023-05-21] MEDS: DAPAGLIFLOZIN PROPANEDIOL 10 MG TABLET PO SCH (08:49)
[2023-05-21] MEDS: NYSTATIN 100,000 UNIT/ML SUSP 500,000 UNIT/5 ML CUP PO SCH ×4 (08:49→20:20)
[2023-05-21] MEDS: TORSEMIDE 20 MG TAB PO SCH ×2 (08:49→20:21)
[2023-05-21] MEDS ORDERED: VANCOMYCIN 2,250 MG in SODIUM CHLORIDE 0.9% 500 ML 500 ML IVPB ONE (12:00)
--- NOTE | 2023-05-21 16:29 | P.PN ---
Subjective Progress Note Date: 05/21/23 Principal diagnosis: Leukocytosis Patient is a 73-year-old male with multiple comorbidities including atrial fibrillation PE pneumonia OR CVA TIA COPD heart failure, initially presented to hospital for evaluation of increasing shortness of breath chest x- ray did show some infiltrate and the patient be treated for possible pneumonia with Zosyn did have worsening of the white count probably this infectious disease consultation. On today's evaluation that is 05/21/2023, the patient denies any fever or any chills, the patient is breathing comfortably on room air 4 L nasal cannula supplemental oxygen , the patient denies chest pain or cough, patient denies abdominal pain, no nausea/vomiting and no diarrhea has been reported Patient white count 15.9 as of yesterday, no CBC was done today blood cultures came back positive with coagulase negative staph Objective - Vital Signs Vital signs: Vital Signs Temp 98.5 F 05/21/23 13:15 Pulse 87 05/21/23 13:15 Resp 19 05/21/23 13:15 BP 125/75 05/21/23 13:15 Pulse Ox 94 L 05/21/23 13:15 FiO2 Intake & Output 05/20/23 05/21/23 05/21/23 18:59 06:59 18:59 Other: Voiding Method Diaper Diaper Diaper Incontinent Incontinent Incontinent # Voids 3 3 # Bowel Movements 1 - Exam GENERAL DESCRIPTION: An elderly female lying in bed in no distress RESPIRATORY SYSTEM: Unlabored breathing , decreased breath sounds at bases HEART: S1 S2 regular rate and rhythm , ABDOMEN: Soft , no tenderness EXTREMITIES: Diffuse swelling to bilateral lower extremity no redness - Labs CBC & Chem 7: 05/20/23 06:00 05/18/23 06:00 Labs: Abnormal Lab Results - Last 24 Hours (Table) 05/20/23 Range/Units 06:00 WBC 15.9 H (3.8-10.6) k/uL Neutrophils # 15.1 H (1.3-7.7) k/uL Lymphocytes # 0.4 L (1.0-4.8) k/uL Microbiology - Last 24 Hours (Table) 05/19/23 07:30 Blood Culture Gram Stain - Final Blood Blood Culture - Final Coagulase Negative Staph Coagulase Negative Staph#2 Assessment and Plan (1) Leukocytosis Current Visit: No Status: Acute Code(s): D72.829 - ELEVATED WHITE BLOOD CELL COUNT, UNSPECIFIED SNOMED Code(s): 683813429 (2) Positive blood culture Current Visit: Yes Status: Acute Code(s): R78.81 - BACTEREMIA SNOMED Code(s): 050733483 Plan: 1patient with a leukocytosis in this patient who has been in the hospital for almost 2 weeks now with initial presentation with increasing shortness of breath and cough and concerning for possible pneumonia for the patient has received Zosyn patient did not have any fever during this admission and is recovering of some sores in the mouth and evidence of thrush possibly responsible for this elevated white count has clinically doubt worsening pneumonia the patient refused chest x-ray this morning 2-we will continue with nystatin swish and swallow 3-blood cultures came back positive with a coagulase negative staph patient did have a port and is slightly concerning blood cultures were obtained from the port yesterday and vancomycin was started which will be continued we will repeat her CBC and inflammatory markers with a.m. lab Dictation was produced using [employer] dictation software. please excuse any grammatical, word or spelling errors. Time with Patient: Less than 30
[2023-05-21] MEDS: SERTRALINE 50 MG TAB PO SCH (17:16)
[2023-05-21] MEDS: BACLOFEN 10 MG TAB PO PRN (21:57)
[2023-05-22] MEDS: FERROUS SULFATE 325 MG TAB PO SCH (05:46)
[2023-05-22] MEDS: LEVOTHYROXINE 75 MCG TAB PO SCH (05:46)
[2023-05-22] MEDS: oxyCODONE-APAP 7.5-325MG 1 EACH TAB PO PRN ×3 (05:46→17:13)
[2023-05-22] MEDS: IPRATROPIUM-ALBUTEROL 3 ML NEB INHALATION SCH ×4 (08:43→19:30)
[2023-05-22] MEDS: BUDESONIDE 0.5 MG/2 ML NEBU INHALATION SCH (08:43)
[2023-05-22] MEDS: methylPREDNISolone SOD SUCCI 40 MG/ML 1 ML VIAL IV SCH ×2 (08:49→21:30)
[2023-05-22] MEDS: PRIMIDONE 50 MG TAB PO SCH ×3 (08:50→21:29)
[2023-05-22] MEDS: PANTOPRAZOLE 40 MG TABLET PO SCH ×2 (08:50→17:13)
[2023-05-22] MEDS: SPIRONOLACTONE 25 MG TAB PO SCH (08:50)
[2023-05-22] MEDS: APIXABAN 5 MG TAB PO SCH ×2 (08:51→21:29)
[2023-05-22] MEDS: carvediloL 6.25 MG TAB PO SCH ×2 (08:51→21:29)
[2023-05-22] MEDS: GABAPENTIN 300 MG CAP PO SCH ×3 (08:51→21:29)
[2023-05-22] MEDS: POTASSIUM CHLORIDE ER 20 MEQ TAB.ER PO SCH (08:51)
[2023-05-22] MEDS: DAPAGLIFLOZIN PROPANEDIOL 10 MG TABLET PO SCH (08:51)
[2023-05-22] MEDS: DICYCLOMINE 20 MG TAB PO SCH ×4 (08:51→21:29)
[2023-05-22] MEDS: TORSEMIDE 20 MG TAB PO SCH ×2 (08:51→21:30)
[2023-05-22] MEDS: NYSTATIN 100,000 UNIT/ML SUSP 500,000 UNIT/5 ML CUP PO SCH ×4 (10:36→21:30)
[2023-05-22 11:28] LABS: Glucose,Whole Blood 216 mg/dL (70-110)
--- NOTE | 2023-05-22 16:33 | P.PN ---
Subjective Progress Note Date: 05/22/23 Principal diagnosis: Leukocytosis Patient is a 73-year-old male with multiple comorbidities including atrial fibrillation PE pneumonia MO CVA TIA COPD heart failure, initially presented to hospital for evaluation of increasing shortness of breath chest x- ray did show some infiltrate and the patient be treated for possible pneumonia with Zosyn did have worsening of the white count probably this infectious disease consultation. On today's evaluation that is 05/22/2023, the patient remains to be afebrile the patient is breathing comfortably on 4 L nasal cannula supplemental oxygen, the patient denies chest pain, has been complaining of some shortness of breath but no cough, patient denies nausea/vomiting , no diarrhea and no abdominal pain Patient white count 15.9 as of 05/20/2023, no CBC was done today blood cultures came back positive with coagulase negative staph Objective - Vital Signs Vital signs: Vital Signs Temp 98.5 F 05/22/23 11:26 Pulse 84 05/22/23 11:26 Resp 19 05/22/23 11:26 BP 137/85 05/22/23 11:26 Pulse Ox 94 L 05/22/23 11:26 FiO2 Intake & Output 05/21/23 05/22/23 05/22/23 18:59 06:59 18:59 Output Total 900 2100 Balance -900 -2100 Output: Urine 900 2100 Other: Voiding Method Diaper Diaper Diaper Incontinent Incontinent Incontinent External Catheter # Voids 2 2 # Bowel Movements 2 - Exam GENERAL DESCRIPTION: An elderly female lying in bed in no distress RESPIRATORY SYSTEM: Unlabored breathing , decreased breath sounds at bases HEART: S1 S2 regular rate and rhythm , ABDOMEN: Soft , no tenderness EXTREMITIES: Diffuse swelling to bilateral lower extremity no redness - Labs CBC & Chem 7: 05/20/23 06:00 05/18/23 06:00 Labs: Abnormal Lab Results - Last 24 Hours (Table) 05/22/23 Range/Units 11:27 POC Glucose (mg/dL) 216 H (70-110) mg/dL Microbiology - Last 24 Hours (Table) 05/20/23 14:45 Blood Culture - Preliminary Blood 05/19/23 07:30 Blood Culture Gram Stain - Final Blood Blood Culture - Final Coagulase Negative Staph Coagulase Negative Staph#2 Assessment and Plan (1) Leukocytosis Current Visit: No Status: Acute Code(s): D72.829 - ELEVATED WHITE BLOOD CELL COUNT, UNSPECIFIED SNOMED Code(s): 251681564 (2) Positive blood culture Current Visit: Yes Status: Acute Code(s): R78.81 - BACTEREMIA SNOMED Code(s): 078516463 Plan: 1patient with a leukocytosis in this patient who has been in the hospital for almost 2 weeks now with initial presentation with increasing shortness of breath and cough and concerning for possible pneumonia for the patient has received Zosyn patient did not have any fever during this admission and is recovering of some sores in the mouth and evidence of thrush possibly responsible for this elevated white count has clinically doubt worsening pneumonia the patient refused chest x-ray this morning 2-patient will continue with nystatin swish and swallow 3-blood cultures came back positive with a coagulase negative staph patient did have a port and is slightly concerning blood cultures were obtained from the port and those has been negative so far if there remains to be negative at 72 hours vancomycin can be safely discontinued Dictation was produced using [employer] dictation software. please excuse any grammatical, word or spelling errors. Time with Patient: Less than 30
[2023-05-22] MEDS: SERTRALINE 50 MG TAB PO SCH (17:13)
[2023-05-22] MEDS ORDERED: HYDROmorphone 0.5 MG/0.5 ML SYRINGE IM PRN (17:15)
[2023-05-22] MEDS: HYDROmorphone 0.5 MG/0.5 ML SYRINGE IVP PRN (22:13)
[2023-05-23] MEDS: oxyCODONE-APAP 7.5-325MG 1 EACH TAB PO PRN ×3 (01:59→14:29)
--- NOTE | 2023-05-23 04:26 | DS ---
DISCHARGE SUMMARY DISCHARGE DIAGNOSES: 1. Left footdrop. 2. Positive blood culture. 3. Altered mental status. 4. Chronic obstructive pulmonary disease severe end-stage on oxygen. 5. Morbid obesity. 6. Acute on chronic respiratory failure. 7. Acute on chronic diastolic heart failure. 8. Obstructive sleep apnea, refused to wear CPAP, so she wears oxygen at night 2 L. She was given antibiotics, steroids, updrafts, diuretics, PT OT multiple days in the hospital. She had worsening tremors. We gave her anxiety medicine for that, which improved her. We gave her Provigil helped her a little bit with that too. We took her off it but if it gets worse she could restart Provigil at 25 t.i.d. She continues to wear supplemental oxygen, bronchodilator, steroids. She is status post fall with pain on the left axilla and shoulder. General surgery saw her. No fractures are seen. She has biceps tendinitis on the left shoulder. She has a footdrop, most likely from neuropathy from her back. The patient was stable and cleared discharge because she could not ambulate more than 2 people to get her out of bed we can send to the rehab center to get her stronger so that she can get out of bed by herself. Orthopedic consult saw her as well as Infectious Disease. She has a history of prior CVA, TIA, GI bleed history, pulmonary embolus history, chronic renal disease, hypothyroidism. Orthopedic saw her and ordered a boot for her foot drop. They got a temporary boot on. They ordered a different AFO, but it has not cleared up, it is custom-made, it is going to take a couple weeks to get it. It also could be coming from her lumbar disk disease. She has severe lumbar disk disease, so if she probably needs AFO you could try to fit her for 1 at the nursing center. Continue her breathing treatments as a necessity as well as her oxygen. Elevate her bed 45 degrees and 24 hours oxygen. PROGNOSIS: Guarded. Please see further orders. MMODL / IJN: [id number] /
[2023-05-23] MEDS: LEVOTHYROXINE 75 MCG TAB PO SCH (05:06)
[2023-05-23] MEDS: FERROUS SULFATE 325 MG TAB PO SCH (05:06)
[2023-05-23] MEDS: HYDROmorphone 0.5 MG/0.5 ML SYRINGE IVP PRN ×2 (05:06→12:41)
[2023-05-23] MEDS ORDERED: VANCOMYCIN TROUGH DUE 1 EACH MISC MISCELLANE ONE (06:00)
[2023-05-23] MEDS: IPRATROPIUM-ALBUTEROL 3 ML NEB INHALATION SCH ×2 (07:48→11:25)
[2023-05-23] MEDS: BUDESONIDE 0.5 MG/2 ML NEBU INHALATION SCH (07:48)
[2023-05-23] MEDS: POTASSIUM CHLORIDE ER 20 MEQ TAB.ER PO SCH (08:55)
[2023-05-23] MEDS: PANTOPRAZOLE 40 MG TABLET PO SCH (08:55)
[2023-05-23] MEDS: PRIMIDONE 50 MG TAB PO SCH (08:55)
[2023-05-23] MEDS: APIXABAN 5 MG TAB PO SCH (08:55)
[2023-05-23] MEDS: GABAPENTIN 300 MG CAP PO SCH (08:55)
[2023-05-23] MEDS: DICYCLOMINE 20 MG TAB PO SCH ×2 (08:55→12:52)
[2023-05-23] MEDS: NYSTATIN 100,000 UNIT/ML SUSP 500,000 UNIT/5 ML CUP PO SCH ×2 (08:56→12:42)
[2023-05-23] MEDS: SPIRONOLACTONE 25 MG TAB PO SCH (08:56)
[2023-05-23] MEDS: carvediloL 6.25 MG TAB PO SCH (08:56)
[2023-05-23] MEDS: methylPREDNISolone SOD SUCCI 40 MG/ML 1 ML VIAL IV SCH (08:56)
[2023-05-23] MEDS: TORSEMIDE 20 MG TAB PO SCH (08:57)
[2023-05-23] MEDS: DAPAGLIFLOZIN PROPANEDIOL 10 MG TABLET PO SCH (08:57)
[2023-05-23 08:58] VITALS: BP 117/70; PULSE 66; TEMP 97.9
[2023-05-23 10:40] VITALS: RESP 18
--- NOTE | 2023-05-23 22:08 | PN ---
PROGRESS NOTE A 73-year-old white female with COPD, CHF, diastolic, acute on chronic, acute on chronic COPD, UTIs, congestive heart failure, GERD, oxygen dependent and CPAP dependent breathing, which she will have to keep up with the long-term. Requesting increased pain medicine, but discussed with her weaning off some medications as she is too lethargic, she has oxygen coming off which is affecting her health. We already stopped quite a few of the medicines. She is to wake up and get moving. She is going [place] rehab [place] in [place] or [place]. She is on diabetes medications. She needs to continue with Eliquis, Pulmicort, and DuoNeb updrafts. Never miss them as well as her oxygen during the day and CPAP at night, PT, OT. She also takes Trulicity shots, which she is not on here, but she will need to wear Trulicity shot 0.75 mg once a week subcu. She will also get other medications at long-term. MMODL / IJN: [id number] /
--- NOTE | 2023-05-24 01:23 | DS ---
DISCHARGE SUMMARY She needs to go on nystatin swish and swallow 5 mL q.i.d. for another 10 days and she needs to go on Trulicity 0.75 mg subcu weekly injection in her abdomen or upper thighs for diabetes and obesity. MMODL / IJN: [id number] /
--- NOTE | 2023-05-25 20:42 | CDI ---
Documentation Clarification Form Date: 05/25/2023 08:34:08 PM From: Stacy Montoya Phone: Admit Date: 05/06/2023 11:14:00 AM Patient Name: Renée Krishnan Visit Number: [id number] Discharge Date: 05/23/2023 03:18:00 PM ATTENTION: The Clinical Documentation Specialists (CDI) and [facility] Coding Staff appreciate your assistance in clarifying documentation. Please respond to the clarification below the line at the bottom and electronically sign. The CDI & [facility] Coding staff will review the response and follow-up if needed. Please note: Queries are made part of the Legal Health Record. If you have any questions, please contact the author of this message via ITS. Dr. French Mckeon Unspecified CKD is documented DC Summary 05/22. Additional clarification regarding the stage of CKD is requested. History/Risk Factors: 73yo F, Leftfoot drop, bacteremia d/t Coagulase NegativeStaph, AECOPD on O2, ACH/HRF, DMII, ACDDHF, STACI, morbid obesity Clinical Indicators: BUN 12 Creatinine 0.53 AfAm >90 NonAf >90 Treatment: monitored Please clarify the stage of the CKD, if known: [ ] CKD Stage 1 (GFR > 90) [ ] CKD Ruled Out [ ] Other, please specify [ ] Unable to determine (Template Last revised: September 2020) MTDD
--- NOTE | 2023-05-25 20:53 | CDI ---
Documentation Clarification Form Date: 05/25/2023 08:43:00 PM From: Stacy Montoya Phone: Admit Date: 05/06/2023 11:14:00 AM Patient Name: Renée Krishnan Visit Number: [id number] Discharge Date: 05/23/2023 03:18:00 PM ATTENTION: The Clinical Documentation Specialists (CDI) and [facility] Coding Staff appreciate your assistance in clarifying documentation. Please respond to the clarification below the line at the bottom and electronically sign. The CDI & [facility] Coding staff will review the response and follow-up if needed. Please note: Queries are made part of the Legal Health Record. If you have any questions, please contact the author of this message via ITS. Dr. French Mckeon Your patient has diagnostic/radiology results: Glucose 216. Please clarify if there is an additional diagnosis and/or clinical significance related to this result. History/Risk Factors: 73yo F, Left foot drop, bacteremia d/t Coagulase Negative Staph, AECOPD on O2, ACH/HRF, DMII, ACDDHF, STACI, morbid obesity Clinical indicators: Glucose 216 She was admitted with IV steroids and IV antibiotics Treatment: Home Medication Dapagliflozin Propanediol [Farxiga] 10 mg PO DAILY; Semaglutide [Ozempic] 0.25 mg SQ WE On bronchodilators including corticosteroids and antiplatelet and IV steroids can be switched to oral at the time of discharge Is there an additional diagnosis and/or clinical significance related to the above diagnostic/radiology result? [ ] Type 2 diabetes mellitus with hyperglycemia [ ] Result is not clinically significant (no additional diagnosis) [ ] Other, please specify [ ] Unable to determine (Template Last Reviewed: September 2020) MTDD
--- NOTE | 2023-05-28 01:29 | PN ---
PROGRESS NOTE Chronic kidney disease stage 2, type 2 diabetes mellitus, hyperglycemia. MMODL / IJN: [id number] /
== END 2023-05-23 15:18 | DRG 193 ==
LOC: EC 09:17 → 6NMEDSUR 11:13 → OBSVTOIN 11:14 → 4SSUR 16:12
PROVIDERS: ADMIT Family Medicine; ATTEND Family Medicine
DX: J18.0 Bronchopneumonia, unspecified organism (principal); I50.33 Acute on chronic diastolic (congestive) heart failure; J96.21 Acute and chronic respiratory failure with hypoxia; J96.22 Acute and chronic respiratory failure with hypercapnia; J44.1 Chronic obstructive pulmonary disease with (acute) exacerbation; R78.81 Bacteremia; I13.0 Hypertensive heart and chronic kidney disease with heart failure and stage 1 through stage 4 chronic kidney disease, or unspecified chronic kidney disease; Z68.44 Body mass index [BMI] 60.0-69.9, adult; I48.20 Chronic atrial fibrillation, unspecified; J44.0 Chronic obstructive pulmonary disease with (acute) lower respiratory infection; J45.901 Unspecified asthma with (acute) exacerbation; B37.0 Candidal stomatitis; E11.22 Type 2 diabetes mellitus with diabetic chronic kidney disease; E66.01 Morbid (severe) obesity due to excess calories; E11.65 Type 2 diabetes mellitus with hyperglycemia; Z87.19 Personal history of other diseases of the digestive system; M51.24 Other intervertebral disc displacement, thoracic region; Z99.81 Dependence on supplemental oxygen; E03.9 Hypothyroidism, unspecified; G47.33 Obstructive sleep apnea (adult) (pediatric); G89.29 Other chronic pain; K22.70 Barrett's esophagus without dysplasia; M51.26 Other intervertebral disc displacement, lumbar region; N18.2 Chronic kidney disease, stage 2 (mild); G25.0 Essential tremor; M51.27 Other intervertebral disc displacement, lumbosacral region; I44.0 Atrioventricular block, first degree; M21.372 Foot drop, left foot; M75.22 Bicipital tendinitis, left shoulder; G62.9 Polyneuropathy, unspecified; F41.9 Anxiety disorder, unspecified; B95.7 Other staphylococcus as the cause of diseases classified elsewhere; M79.622 Pain in left upper arm; K21.9 Gastro-esophageal reflux disease without esophagitis; M13.0 Polyarthritis, unspecified; M62.838 Other muscle spasm; T41.5X6A Underdosing of therapeutic gases, initial encounter; D17.79 Benign lipomatous neoplasm of other sites; R13.10 Dysphagia, unspecified; W19.XXXA Unspecified fall, initial encounter; Z96.653 Presence of artificial knee joint, bilateral; Z79.899 Other long term (current) drug therapy; Z79.890 Hormone replacement therapy; Z79.51 Long term (current) use of inhaled steroids; Z79.01 Long term (current) use of anticoagulants; Z79.85 Long-term (current) use of injectable non-insulin antidiabetic drugs; Z79.891 Long term (current) use of opiate analgesic; Z88.6 Allergy status to analgesic agent; Z88.8 Allergy status to other drugs, medicaments and biological substances; Z86.73 Personal history of transient ischemic attack (TIA), and cerebral infarction without residual deficits; Z86.711 Personal history of pulmonary embolism; Z86.19 Personal history of other infectious and parasitic diseases; I25.2 Old myocardial infarction; Z85.41 Personal history of malignant neoplasm of cervix uteri; Z91.410 Personal history of adult physical and sexual abuse; Z79.84 Long term (current) use of oral hypoglycemic drugs; Z74.01 Bed confinement status; Z99.3 Dependence on wheelchair
CPT/HCPCS: 36415; 71045; 71250; 80053; 81003; 83605; 83735; 83880; 84145; 84484; 85025; 85379; 85610; 85730; 86140; 87040; 93005; 93880; 94640; 94760; 96374; 96375; 99285

== ENCOUNTER 2023-06-23 17:15 | Inpatient (IN) | payer OTHER ==
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
[2023-06-23] MEDS ORDERED: SODIUM CHLORIDE 0.9% 1,000 ML IV STA (18:15)
--- NOTE | 2023-06-23 18:57 | XR ---
EXAMINATION TYPE: XR chest 1V portable DATE OF EXAM: 06/23/2023 6:49 PM CLINICAL INDICATION:Female, 73 years old with history of altered mental status; H COMPARISON: Chest radiographs from TECHNIQUE: XR chest 1V portable Frontal view of the chest. FINDINGS: Lungs/Pleura: There is no evidence of pleural effusion, focal consolidation, or pneumothorax. Pulmonary vascularity: Unremarkable. Heart/mediastinum: Cardiomediastinal silhouette is enlarged and stable. Atherosclerotic calcificatio ns are seen in the aorta. Musculoskeletal: No acute osseous pathology. Other findings: None Lines/Tubes: Right-sided catheter with distal tip at the cavoatrial junction. IMPRESSION: No acute cardiopulmonary disease/process.
[2023-06-23] MEDS ORDERED: MORPHINE SULFATE 4 MG/ML SYRINGE IV PRN (19:47)
[2023-06-23] MEDS ORDERED: NALOXONE 0.4 MG/ML 1 ML VIAL IV PRN (19:47)
[2023-06-23] MEDS ORDERED: ONDANSETRON 4 MG/2 ML VIAL IVP PRN (19:47)
--- NOTE | 2023-06-23 19:56 | CT ---
EXAMINATION TYPE: CT brain wo con CT DLP: 1156.4 mGycm, Automated exposure control for dose reduction was used. DATE OF EXAM: 06/23/2023 7:22 PM COMPARISON: 04/19/2023.. CLINICAL INDICATION:Female, 73 years old with history of Altered mental status, AMS TECHNIQUE: Brain: Axial CT images of the brain were obtained with coronal and sagittal reformats created and rev iewed. Contrast used: None. Oral contrast used: None. FINDINGS: Brain: Extra-axial spaces: No abnormal extra-axial fluid collections. Ventricular system: Dilatation in proportion to cerebral atrophy. Cerebral parenchyma: Cerebral atrophy. No acute intraparenchymal hemorrhage or mass effect. The gao -white junction is well differentiated. Scattered hypoattenuating areas are seen within the white mat ter. Cerebellum: Unremarkable. Mass effect: No evidence of midline shift. Intracranial vasculature: Atherosclerotic calcifications of the intracranial vessels. Soft tissues: Normal. Calvarium/osseous structures: No depressed skull fracture. Stable calcified lesion in the sella turci ca measuring 22 mm. Additional similar right middle cranial fossa calcified lesion also probably repr esenting a calcified meningioma measuring 7 mm. Paranasal sinuses and mastoid air cells: Mild scattered paranasal sinus disease. Visualized orbits: Orbital contents are intact. IMPRESSION: 1. No acute intracranial process. 2. Nonspecific white matter changes, likely secondary to chronic small vessel ischemic disease. 3. Si milar for calcified lesion in the sella turcica and right middle cranial fossa dating back at least t 2015.
[2023-06-23 20:07] LABS: Glucose,Whole Blood 130 mg/dL (70-110)
[2023-06-23] MEDS: SODIUM CHLORIDE 0.9% 1,000 ML IV SCH (20:33)
[2023-06-23 20:36] LABS: Anisocytosis Slight; Basophils % (A) 0 %; Eosinophils # (A) 0.2 k/uL (0-0.7); Eosinophils % (A) 2 %; HCT 35.5 % (34.0-46.0); HGB 11.1 gm/dL (11.4-16.0); Lymphocytes # (A) 1.3 k/uL (1.0-4.8); Lymphocytes % (A) 15 %; MCH 27.5 pg (25.0-35.0); MCHC 31.3 g/dL (31.0-37.0); MCV 87.7 fL (80.0-100.0); Mean Platelet Volume 8.6; Monocytes # (A) 0.7 k/uL (0-1.0); Monocytes % (A) 8 %; Neutrophils # (A) 6.3 k/uL (1.3-7.7); Neutrophils % (A) 73 %; Platelet Count 262 k/uL (150-450); RBC 4.05 m/uL (3.80-5.40); RDW 16.6 % (11.5-15.5); WBC 8.6 k/uL (3.8-10.6)
[2023-06-23 21:07] LABS: Partial Thromboplastin Time 27.1 sec (22.0-30.0); Prothrombin Time 10.9 sec (10.0-12.5)
[2023-06-23 21:24] LABS: ALT 14 U/L (4-34); AST 23 U/L (14-36); African American GFR (CKD) >90 (>60 ml/min/1.73 sqM); Albumin 3.2 g/dL (3.5-5.0); Alkaline Phosphatase 96 U/L (38-126); Anion Gap 8 mmol/L; Blood Urea Nitrogen 14 mg/dL (7-17); Calcium 9.3 mg/dL (8.4-10.2); Carbon Dioxide 30 mmol/L (22-30); Chloride 100 mmol/L (98-107); Glucose 111 mg/dL (74-99); Lactic Acid, Venous 1.1 mmol/L (0.7-2.0); Non-African American GFR(CKD) 80 (>60 ml/min/1.73 sqM); Potassium 4.2 mmol/L (3.5-5.1); Sodium 138 mmol/L (137-145); Total Bilirubin 0.5 mg/dL (0.2-1.3)
[2023-06-23 21:26] LABS: VBG PH 7.6 (7.31-7.41)
[2023-06-24 00:32] LABS: Appearance,Urine Cloudy (Clear); Bacteria,Urine Many /hpf; Bilirubin,Urine Negative (Negative); Blood,Urine Negative (Negative); Color,Urine Yellow; Glucose,Urine (UA) 1+ (Negative); Hyaline Casts,Urine 2 /lpf (0-2); Ketones,Urine Negative (Negative); Leukocyte Esterase,Urine Large (Negative); Mucus,Urine Rare /hpf; Nitrite,Urine Positive (Negative); Protein,Urine Trace (Negative); RBC,Urine 2 /hpf (0-5); Specific Gravity,Urine 1.017 (1.001-1.035); Squamous Epithelial Cell,Urine <1 /hpf (0-4); Urobilinogen,Urine <2.0 mg/dL (<2.0); WBC,Urine >182 /hpf (0-5)
[2023-06-24 01:02] LABS: Amphetamine Screen,Urine Not Detected (NotDetected); Barbiturate Screen,Urine Detected (NotDetected); Benzodiazepines Screen,Urine Not Detected (NotDetected); Cocaine Screen,Urine Not Detected (NotDetected); Methadone Screen, Urine Not Detected (NotDetected); Opiate Screen,Urine Not Detected (NotDetected); Oxycodone Screen, Urine Detected (NotDetected); Phencyclidine Screen,Urine Not Detected (NotDetected); Tricyclic Antidepressant,Urine Not Detected (NotDetected); Urn Cannabinoid Scrn Not Detected (NotDetected)
[2023-06-24] MEDS ORDERED: MORPHINE SULFATE 4 MG/ML SYRINGE ONE (03:55)
[2023-06-24] MEDS: SODIUM CHLORIDE 0.9% 1,000 ML IV SCH ×2 (08:37→22:57)
[2023-06-24 11:04] LABS: Basophils # (A) 0.08 X 10*3/uL (0.00-0.10); Eosinophils # (A) 0.18 X 10*3/uL (0.04-0.35); Eosinophils % (A) 2.2 %; HCT 33.1 % (37.2-46.3); HGB 10.1 g/dL (12.0-15.0); Lymphocytes # (A) 1.56 X 10*3/uL (0.90-5.00); Lymphocytes % (A) 18.6 %; MCH 27.3 pg (27.0-32.0); MCHC 30.5 g/dL (32.0-37.0); MCV 89.5 FL (80.0-97.0); Mean Platelet Volume 9.4 FL (9.5-12.2); Monocytes # (A) 0.69 X 10*3/uL (0.20-1.00); Monocytes % (A) 8.2 %; NRBC Per 100 WBC 0 X 10*3/uL (0.00-0.01); Neutrophils # (A) 5.81 X 10*3/uL (1.80-7.70); Neutrophils % (A) 69.4 %; Platelet Count 274 X 10*3/uL (140-440); RDW 17.8 % (11.5-14.5); WBC 8.37 X 10*3/uL (4.50-10.00)
[2023-06-24 11:34] LABS: ALT 9 U/L (8-44); AST 17 U/L (13-35); Albumin 3.1 g/dL (3.8-4.9); Albumin/Globulin Ratio 1.41 Ratio (1.60-3.17); Alkaline Phosphatase 81 U/L (41-126); BUN/Creat Ratio 15.57 Ratio (12.00-20.00); Blood Urea Nitrogen 10.9 mg/dL (9.0-27.0); Calcium 9.4 mg/dL (8.7-10.3); Carbon Dioxide 31.7 mmol/L (21.6-31.8); Chloride 101 mmol/L (96-109); Globulin 2.2 g/dL (1.6-3.3); Glucose 95 mg/dL (70-110); Magnesium 1.9 mg/dL (1.5-2.4); Phosphorus 3.7 mg/dL (2.4-5.1); Potassium 3.9 mmol/L (3.5-5.5); Sodium 144 mmol/L (135-145); Total Bilirubin 0.3 mg/dL (0.3-1.2); Total Protein 5.3 g/dL (6.2-8.2)
[2023-06-24] MEDS ORDERED: IPRATROPIUM-ALBUTEROL 3 ML NEB INHALATION PRN (15:51)
[2023-06-24] MEDS: PIPERACILLIN-TAZOBACTAM 3.375 GM in SODIUM CHLORIDE 0.9% 100 ML IVPB SCH ×2 (17:07→23:50)
[2023-06-24] MEDS: SILDENAFIL 20 MG TAB PO SCH ×2 (17:11→21:30)
[2023-06-24] MEDS: METOCLOPRAMIDE 10 MG TAB PO SCH (17:12)
[2023-06-24] MEDS: SERTRALINE 50 MG TAB PO SCH (17:12)
[2023-06-24] MEDS: IPRATROPIUM-ALBUTEROL 3 ML NEB INHALATION SCH ×2 (17:36→21:05)
[2023-06-24] MEDS: APIXABAN 5 MG TAB PO SCH (21:29)
[2023-06-24] MEDS: carvediloL 6.25 MG TAB PO SCH (21:30)
[2023-06-24] MEDS: TORSEMIDE 20 MG TAB PO SCH (21:30)
[2023-06-24] MEDS ORDERED: LOPERAMIDE 2 MG CAP PO PRN (22:19)
[2023-06-24] MEDS: DICYCLOMINE 20 MG TAB PO SCH (22:55)
[2023-06-24] MEDS: oxyCODONE-APAP 7.5-325MG 1 EACH TAB PO PRN (22:55)
--- NOTE | 2023-06-25 01:37 | HP ---
HISTORY AND PHYSICAL HISTORY OF PRESENT ILLNESS: A 73-year-old white female, comes to hospital, transferred from outside facility due to altered mental status, underlying urinary tract infection, possible CHF, COPD. The patient has altered mental status, which is new. HOME MEDICATIONS: Reviewed. ALLERGIES: Reviewed. PAST MEDICAL HISTORY: Atrial fibrillation, cancer, angina, COPD, CVA, TIA, GI bleed, osteoarthritis, pneumonia, pulmonary embolism, renal disease, thyroid disorder, anxiety, depression. REVIEW OF SYSTEMS: A 14-point review of systems is otherwise negative. PAST SURGICAL HISTORY: Adenoidectomy; bladder surgery; cholecystectomy; hysterectomy; joint replacement; orthopedic surgery; tonsillectomy; heart catheterization, stent x2. PHYSICAL EXAMINATION: VITAL SIGNS: Temperature 99.3, pulse 114, respiratory rate 20 to 24, blood pressure 140s over 100s. FAMILY HISTORY: Father with CVA, TIA, hypertension, myocardial infarction. Mother, myocardial infarction. PHYSICAL EXAMINATION: VITAL SIGNS: Stable. Afebrile. CARDIOVASCULAR: S1, S2. LUNGS: Transmitted upper airway sounds. HEMATOLOGY: Negative Homans. PSYCHIATRIC: Fair mood and affect. NEUROLOGIC: Alert and oriented x3. OPHTHALMOLOGIC: Pupils are equal, round, and reactive. ASSESSMENT: 1. Hyperglycemia. 2. Diabetic ketoacidosis. 3. Hypercapnia. 4. Urinary tract infection. 5. Diastolic congestive heart failure. 6. Chronic obstructive pulmonary disease. 7. Failure to thrive. 8. Obesity hypoventilation syndrome. 9. Altered mental status. 10.Delirium. 11.Respiratory alkalosis. 12.Metabolic alkalosis. 13.Morbid obesity. PLAN: Get multiple consults. Rehydrate. IV antibiotics, etc. Prognosis guarded. MMODL / IJN: [id number] /
[2023-06-25] MEDS: LEVOTHYROXINE 75 MCG TAB PO SCH (05:53)
[2023-06-25] MEDS: FERROUS SULFATE 325 MG TAB PO SCH (05:53)
[2023-06-25] MEDS: METOCLOPRAMIDE 10 MG TAB PO SCH ×3 (05:53→17:12)
[2023-06-25] MEDS: oxyCODONE-APAP 7.5-325MG 1 EACH TAB PO PRN ×2 (05:55→13:32)
[2023-06-25] MEDS: ALBUTEROL HFA INHALER INHALATION SCH ×4 (07:42→20:27)
[2023-06-25] MEDS: PIPERACILLIN-TAZOBACTAM 3.375 GM in SODIUM CHLORIDE 0.9% 100 ML IVPB SCH ×3 (07:48→23:51)
[2023-06-25] MEDS: APIXABAN 5 MG TAB PO SCH ×2 (07:48→20:34)
[2023-06-25] MEDS: GABAPENTIN 300 MG CAP PO SCH ×3 (07:48→20:34)
[2023-06-25] MEDS: TORSEMIDE 20 MG TAB PO SCH ×2 (07:49→20:34)
[2023-06-25] MEDS: SILDENAFIL 20 MG TAB PO SCH ×3 (07:49→20:34)
[2023-06-25] MEDS: PANTOPRAZOLE 40 MG TABLET PO SCH (07:49)
[2023-06-25] MEDS: DAPAGLIFLOZIN PROPANEDIOL 10 MG TABLET PO SCH (07:49)
[2023-06-25] MEDS: SPIRONOLACTONE 25 MG TAB PO SCH (07:49)
[2023-06-25] MEDS: carvediloL 6.25 MG TAB PO SCH ×2 (07:49→20:33)
[2023-06-25] MEDS: DICYCLOMINE 20 MG TAB PO SCH ×4 (07:50→20:34)
[2023-06-25] MEDS: POTASSIUM CHLORIDE ER 20 MEQ TAB.ER PO SCH (07:50)
[2023-06-25] MEDS ORDERED: ALBUTEROL NEBULIZED 2.5 MG/3 ML INHALATION SCH (08:00)
[2023-06-25] MEDS ORDERED: BUDESONIDE 0.5 MG/2 ML NEBU INHALATION SCH (08:00)
[2023-06-25 10:36] LABS: Appearance,Urine Clear (Clear); Bilirubin,Urine Negative (Negative); Blood,Urine Negative (Negative); Color,Urine Colorless; Glucose,Urine (UA) 2+ (Negative); Ketones,Urine Negative (Negative); Leukocyte Esterase,Urine Negative (Negative); Nitrite,Urine Negative (Negative); PH, Urine 6.5 (5.0-8.0); Protein,Urine Negative (Negative); Specific Gravity,Urine 1.006 (1.001-1.035); Urobilinogen,Urine <2.0 mg/dL (<2.0)
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
[2023-06-25] MEDS: SODIUM CHLORIDE 0.9% 1,000 ML IV SCH ×2 (13:32→20:35)
[2023-06-25] MEDS: SERTRALINE 50 MG TAB PO SCH (17:12)
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
--- NOTE | 2023-06-26 01:56 | PN ---
PROGRESS NOTE SUBJECTIVE: A white female came in with altered mental status, most likely secondary to COVID, metabolic encephalopathy secondary to this. She came out of the group home. She says she did not have COVID. She got confused and 1 day she came to the hospital. Continued treatment with antibiotics. Continue treatment for COVID. OBJECTIVE: VITAL SIGNS: Stable, afebrile. ENDOCRINE: She appears swollen, profound edema. CARDIOVASCULAR: Right-sided heart failure. ASSESSMENT: Chronic obstructive pulmonary disease, congestive heart failure, COVID-19, acute hypoxemic respiratory distress. Prognosis guarded. Please see further orders. MMODL / IJN: [id number] /
[2023-06-26] MEDS: oxyCODONE-APAP 7.5-325MG 1 EACH TAB PO PRN ×2 (06:18→12:31)
[2023-06-26] MEDS: LEVOTHYROXINE 75 MCG TAB PO SCH (06:19)
[2023-06-26] MEDS: FERROUS SULFATE 325 MG TAB PO SCH (06:19)
[2023-06-26] MEDS: METOCLOPRAMIDE 10 MG TAB PO SCH ×2 (06:19→12:31)
[2023-06-26] MEDS: PIPERACILLIN-TAZOBACTAM 3.375 GM in SODIUM CHLORIDE 0.9% 100 ML IVPB SCH (08:21)
[2023-06-26] MEDS: SILDENAFIL 20 MG TAB PO SCH (08:22)
[2023-06-26] MEDS: TORSEMIDE 20 MG TAB PO SCH (08:23)
[2023-06-26] MEDS: DAPAGLIFLOZIN PROPANEDIOL 10 MG TABLET PO SCH (08:23)
[2023-06-26] MEDS: POTASSIUM CHLORIDE ER 20 MEQ TAB.ER PO SCH (08:23)
[2023-06-26] MEDS: GABAPENTIN 300 MG CAP PO SCH (08:23)
[2023-06-26] MEDS: DICYCLOMINE 20 MG TAB PO SCH ×2 (08:23→14:13)
[2023-06-26] MEDS: APIXABAN 5 MG TAB PO SCH (08:24)
[2023-06-26] MEDS: PANTOPRAZOLE 40 MG TABLET PO SCH (08:24)
[2023-06-26] MEDS: carvediloL 6.25 MG TAB PO SCH (08:24)
[2023-06-26] MEDS: SPIRONOLACTONE 25 MG TAB PO SCH (08:24)
[2023-06-26] MEDS ORDERED: ASCORBIC ACID 500 MG TAB PO SCH (09:00)
[2023-06-26] MEDS ORDERED: CHOLECALCIFEROL 125 MCG (5000 IU) TABLET PO SCH (09:00)
[2023-06-26] MEDS ORDERED: ZINC SULFATE 220 MG CAP PO SCH (09:00)
[2023-06-26] MEDS: ALBUTEROL HFA INHALER INHALATION SCH ×2 (09:12→12:32)
--- NOTE | 2023-06-26 10:48 | P.PN ---
Subjective Progress Note Date: 06/26/23 Principal diagnosis: Aggressive heart failure The patient is a 73-year-old female patient who was known to our service from before with morbid obesity and chronic hypoxic respiratory failure as well as paroxysmal atrial fibrillation and heart failure with preserved ejection frac tion as well as hypertension and dyslipidemia. She was at the rehab facility recently and subsequently she went home. She was noted to have some change in mental status at home and for that reason she was brought to the hospital. Today she is completely back to baseline. Beside that she reports no pain in the chest and no dizziness or lightheadedness and feeling of heart racing or fluttering and no presyncope or syncope. She underwent a workup including chest x-ray did not show any acute abnormalities. The rest of the blood work came in to be unremarkable. Computed tomography scan of the brain came in to be unremarkable as well. She is on oxygen at 4 L normally at home and currently in the hospital now she is on 2 L only and she has been maintaining normal saturation. Overall the patient doesn't seems to be in overt congestive heart failure. She is known to have heart failure and she is on oral diuretics and has been compliant with the medication. Examination is remarkable for morbidly obese lady with diminished breathing sounds bilaterally and regular rate and rhythm and bilateral lower extremity edema which is a chronic and non-pitting edema. 06/26/2023 The patient was seen this morning beach she still euvolemic. From the cardiovascular standpoint of view, I would continue the current medical regimen. No need for the patient to be on any IV diuretics. She continues to be on anticoagulation. The mentation has improved significantly. The patient potentially can be discharged in the next 12-24 hours and we will continue the current medical regimen Assessment Change in mental status which has improved Heart failure appeared to be stable Paroxysmal atrial fibrillation Morbid obesity Multiple comorbid conditions Plan Continue the current medical regimen No need to start the patient on IV diuretics Continue the current dose of oral diuretics Follow-up with the patient Objective - Vital Signs Vital signs: Vital Signs Temp 98.1 F 06/26/23 07:28 Pulse 82 06/26/23 07:28 Resp 16 06/26/23 07:28 BP 103/61 06/26/23 07:28 Pulse Ox 98 06/26/23 07:28 FiO2 Intake & Output 06/25/23 06/26/23 06/26/23 18:59 06:59 18:59 Intake Total 700 240 Output Total 575 250 Balance -575 700 -10 Intake: Oral 700 240 Output: Urine 575 250 Other: Voiding Method Incontinent Incontinent External Catheter External Catheter # Bowel Movements 2 1 1 - Labs CBC & Chem 7: 06/24/23 07:03 06/24/23 07:03 Labs: Abnormal Lab Results - Last 24 Hours (Table) 06/25/23 Range/Units 12:27 SARS-CoV-2 (PCR) Detected A (Not Detectd)
--- NOTE | 2023-06-26 12:48 | P.PN ---
Subjective Progress Note Date: 06/26/23 This is 73-year-old female patient with a known history of obesity hypoventilation syndrome, chronic obstructive pulmonary disease from secondhand smoke, lifelong nonsmoker, chronic back pain, chronic atrial fibrillation anticoagulated with Eliquis, hypothyroidism, anxiety/depression, CVA/TIA. She presented here to the emergency room on 06/23/2023 with altered mental status and suspected urinary tract infection. Chest x-ray revealed no acute cardiopulmonary process. Computed tomography scan of the brain revealed no acute intracranial process. White count 8.3. Hemoglobin 10.1. Platelets 274. Sodium 144. Potassium 3.9. Bicarb 32. BUN 11. Creatinine 0.7. Glucose 95. Initial urinalysis was cloudy with positive nitrates and large WBCs and many bacteria. Urine drug screen was positive for oxycodone and barbiturates. She is also positive for COVID-19 infection. Follow-up urinalysis today is clear and negative nitrates. She is seen today in consultation on the regular medical floor. She is sitting up in bed. She is awake and alert and oriented 3. She denies any shortness of breath, cough or congestion. She states she does have home oxygen due to nocturnal hypoxemia. She is currently on 2 L/m per nasal cannula with O2 saturation of 100%. She's afebrile. Hemodynamically stable. She's been initiated on antibiotics in the form of Zosyn. She is on albuterol inhaler and oral diuretics. Anticoagulated with Eliquis. The patient is seen today 06/26/2023 in follow-up on the regular medical floor. She is currently sitting up at the bedside. Awake and alert in no acute distress. She is maintaining good O2 saturations in the upper 90s on 2 L/m per nasal cannula. She's afebrile. Hemodynamically stable. She is continued on vitamin supplements. Anticoagulated with Eliquis. Antibiotics in the form of Zosyn. Objective - Vital Signs Vital signs: Vital Signs Temp 98.1 F 06/26/23 07:28 Pulse 82 06/26/23 07:28 Resp 16 06/26/23 07:28 BP 103/61 06/26/23 07:28 Pulse Ox 98 06/26/23 07:28 FiO2 Intake & Output 06/25/23 06/26/23 06/26/23 18:59 06:59 18:59 Intake Total 700 240 Output Total 575 250 Balance -575 700 -10 Intake: Oral 700 240 Output: Urine 575 250 Other: Voiding Method Incontinent Incontinent External Catheter External Catheter # Bowel Movements 2 1 1 - Exam GENERAL EXAM: Alert, morbidly obese 73-year-old female, on 2 L nasal cannula, in no apparent distress. HEAD: Normocephalic. EYES: Normal reaction of pupils, equal size. NOSE: Clear with pink turbinates. THROAT: No erythema or exudates. NECK: No masses, no JVD. CHEST: No chest wall deformity. LUNGS: Equal air entry with no crackles, wheeze, rhonchi or dullness. CVS: S1 and S2 normal with no audible murmur, regular rhythm. ABDOMEN: No hepatosplenomegaly, normal bowel sounds, no guarding or rigidity. SPINE: No scoliosis or deformity SKIN: No rashes CENTRAL NERVOUS SYSTEM: No focal deficits, tone is normal in all 4 extremities. EXTREMITIES: There is no peripheral edema. No clubbing, no cyanosis. Periph eral pulses are intact. - Labs CBC & Chem 7: 06/24/23 07:03 06/24/23 07:03 Labs: Abnormal Lab Results - Last 24 Hours (Table) 06/25/23 Range/Units 12:27 SARS-CoV-2 (PCR) Detected A (Not Detectd) Assessment and Plan Assessment: Altered mental status suspect secondary to urinary tract infection, recovered Urinary tract infection suspected and culture pending, currently on Zosyn COVID-19 infection without evidence of pneumonia Obesity hypoventilation syndrome, on home oxygen History of COPD secondary to secondhand smoke, lifelong nonsmoker Diabetes mellitus Hypothyroidism History of anxiety/depression Poor overall functional performance based on the above-mentioned multiple comorbidities Plan: The patient was seen and evaluated Medications reviewed Continue CoVID vitamin supplements Anticoagulated with Eliquis Cleared for discharge I have personally seen and examined the patient, performed the documentation and the assessment and plan as written. Number of minutes spent on the visit: 10.
[2023-06-26 15:21] VITALS: BP 119/72; PULSE 90; RESP 14; TEMP 97.7
--- NOTE | 2023-06-26 15:59 | P.PN ---
Subjective Progress Note Date: 06/26/23 Principal diagnosis: Reason for follow-up is urinary tract infection and covid Patient is a 73-year-old female with a past medical history significant for atrial fibrillation COPD heart failure with CVA TIA PE history of recurrent UTIs apparently was recently diagnosed with a COVID-19, presented to hospital with mental status changes did have positive UA concerning for UTI On today's evaluation that is 06/26/2023, the patient denies any fever or any chills, the patient is breathing comfortably on 2 L nasal cannula supplemental oxygen, patient denies chest pain shortness of breath and no significant cough or sputum production, patient denies Abdominal pain, no nausea/vomiting and denies having any diarrhea, urinary symptoms have improved Patient did have white count of 8.37, creatinine 0.7 as of 06/24/2023 Objective - Vital Signs Vital signs: Vital Signs Temp 98.1 F 06/26/23 07:28 Pulse 82 06/26/23 07:28 Resp 16 06/26/23 07:28 BP 103/61 06/26/23 07:28 Pulse Ox 98 06/26/23 07:28 FiO2 Intake & Output 06/25/23 06/26/23 06/26/23 18:59 06:59 18:59 Intake Total 700 240 Output Total 575 250 Balance -575 700 -10 Intake: Oral 700 240 Output: Urine 575 250 Other: Voiding Method Incontinent Incontinent External Catheter External Catheter # Bowel Movements 2 1 1 - Exam GENERAL DESCRIPTION: An elderly female lying in bed in no distress RESPIRATORY SYSTEM: Unlabored breathing , clear to auscultation anteriorly HEART: S1 S2 regular rate and rhythm , ABDOMEN: Soft , no tenderness EXTREMITIES: No edema feet - Labs CBC & Chem 7: 06/24/23 07:03 06/24/23 07:03 Labs: Abnormal Lab Results - Last 24 Hours (Table) 06/25/23 Range/Units 12:27 SARS-CoV-2 (PCR) Detected A (Not Detectd) Assessment and Plan (1) UTI (urinary tract infection) Current Visit: Yes Status: Acute Code(s): N39.0 - URINARY TRACT INFECTION, SITE NOT SPECIFIED SNOMED Code(s): 63345694 Plan: 1patient presented to hospital with mental status changes which is likely multifactorial in this patient with a positive UA concerning for possible symptomatic bradycardia likely from Matera gram-negative pathogen patient chest x-ray was negative for acute infiltrate 2-patient did have a positive COVID test however she mentioned she did tested positive when she was [place] and no evidence of any COVID- pneumonia on the chest x-ray 3-patient to continue Zosyn while waiting for the culture to finalize and monitor clinical course closely Dictation was produced using [employer] dictation software. please excuse any grammatical, word or spelling errors. Time with Patient: Less than 30
== END 2023-06-26 16:05 | disposition home or self-care (01) | DRG 637 ==
LOC: EC 17:15 → 5NMEDONC 19:47 → 3SCARD 21:52 → 4SSUR 06-24 12:42 → 5NMEDONC 06-24 14:58 → 6NMEDSUR 06-24 16:50
PROVIDERS: ADMIT Family Medicine; ATTEND Family Medicine
DX: E11.10 Type 2 diabetes mellitus with ketoacidosis without coma (principal); G93.41 Metabolic encephalopathy; J96.22 Acute and chronic respiratory failure with hypercapnia; U07.1 COVID-19; J96.11 Chronic respiratory failure with hypoxia; I48.20 Chronic atrial fibrillation, unspecified; E66.2 Morbid (severe) obesity with alveolar hypoventilation; I50.32 Chronic diastolic (congestive) heart failure; E87.3 Alkalosis; F05 Delirium due to known physiological condition; N39.0 Urinary tract infection, site not specified; Z68.44 Body mass index [BMI] 60.0-69.9, adult; I50.810 Right heart failure, unspecified; I11.0 Hypertensive heart disease with heart failure; J44.9 Chronic obstructive pulmonary disease, unspecified; R62.7 Adult failure to thrive; M51.24 Other intervertebral disc displacement, thoracic region; E03.9 Hypothyroidism, unspecified; F32.9 Major depressive disorder, single episode, unspecified; K22.70 Barrett's esophagus without dysplasia; G89.29 Other chronic pain; F41.9 Anxiety disorder, unspecified; E78.5 Hyperlipidemia, unspecified; Z96.653 Presence of artificial knee joint, bilateral; Z77.22 Contact with and (suspected) exposure to environmental tobacco smoke (acute) (chronic); Z99.81 Dependence on supplemental oxygen; M13.0 Polyarthritis, unspecified; Z79.890 Hormone replacement therapy; Z79.01 Long term (current) use of anticoagulants; Z79.51 Long term (current) use of inhaled steroids; Z79.84 Long term (current) use of oral hypoglycemic drugs; Z88.6 Allergy status to analgesic agent; Z88.8 Allergy status to other drugs, medicaments and biological substances; Z88.5 Allergy status to narcotic agent; I25.2 Old myocardial infarction; Z85.41 Personal history of malignant neoplasm of cervix uteri; Z87.19 Personal history of other diseases of the digestive system; Z86.73 Personal history of transient ischemic attack (TIA), and cerebral infarction without residual deficits; Z80.1 Family history of malignant neoplasm of trachea, bronchus and lung; Z86.711 Personal history of pulmonary embolism; Z91.410 Personal history of adult physical and sexual abuse; Z79.899 Other long term (current) drug therapy
CPT/HCPCS: 36415; 70450; 71045; 80053; 80306; 81001; 81003; 82140; 82803; 83605; 83735; 84100; 84484; 85025; 85610; 85730; 87086; 87635; 93005; 94640; 94760; 96361; 96365; 96375; 99285

== ENCOUNTER 2023-07-20 11:22 | Emergency (ER) | payer MEDICARE, OTHER ==
[2023-07-20 12:17] VITALS: BP 136/86; PULSE 72; RESP 18; TEMP 97.8
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
--- NOTE | 2023-07-20 15:27 | XR ---
EXAMINATION TYPE: XR thoracic spine 2V DATE OF EXAM: 07/20/2023 COMPARISON: 2 view thoracic spine HISTORY: Back pain TECHNIQUE: 3 view thoracic spine FINDINGS: A 12 thoracic type vertebral bodies. Pedicles are intact. Spondylosis is present. There is narrowing of the disc height. Vertebral body heights are preserved. IMPRESSION: 1. No acute osseous thoracic spine degenerative . 2. Degenerative disc changes
== END 2023-07-20 20:53 | disposition home or self-care (01) ==
LOC: SUPCPDRO 11:22 → EC 11:22
DX: G89.29 Other chronic pain (principal); M54.6 Pain in thoracic spine; E03.9 Hypothyroidism, unspecified; I48.91 Unspecified atrial fibrillation; I11.0 Hypertensive heart disease with heart failure; I50.9 Heart failure, unspecified; I25.2 Old myocardial infarction; M19.90 Unspecified osteoarthritis, unspecified site; F41.9 Anxiety disorder, unspecified; F32.A Depression, unspecified; J44.9 Chronic obstructive pulmonary disease, unspecified; Z79.84 Long term (current) use of oral hypoglycemic drugs; Z79.890 Hormone replacement therapy; Z79.01 Long term (current) use of anticoagulants; Z79.899 Other long term (current) drug therapy; Z79.1 Long term (current) use of non-steroidal anti-inflammatories (NSAID); Z88.8 Allergy status to other drugs, medicaments and biological substances; Z88.6 Allergy status to analgesic agent; Z79.51 Long term (current) use of inhaled steroids; Z88.5 Allergy status to narcotic agent
CPT/HCPCS: 72070; 99283

== ENCOUNTER 2023-07-21 15:46 | Observation (INO) | payer MEDICARE, OTHER ==
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
[2023-07-21 18:23] LABS: Anisocytosis Slight; Basophils % (A) 1 %; Eosinophils # (A) 0.2 k/uL (0-0.7); Eosinophils % (A) 3 %; HCT 32.7 % (34.0-46.0); HGB 10.7 gm/dL (11.4-16.0); Lymphocytes # (A) 1.2 k/uL (1.0-4.8); Lymphocytes % (A) 17 %; MCH 29.6 pg (25.0-35.0); MCHC 32.8 g/dL (31.0-37.0); MCV 90.2 fL (80.0-100.0); Mean Platelet Volume 7.3; Monocytes # (A) 0.4 k/uL (0-1.0); Monocytes % (A) 6 %; Neutrophils # (A) 5.2 k/uL (1.3-7.7); Neutrophils % (A) 73 %; Platelet Count 222 k/uL (150-450); RBC 3.62 m/uL (3.80-5.40); RDW 16.6 % (11.5-15.5); WBC 7.2 k/uL (3.8-10.6)
[2023-07-21 18:34] LABS: ALT 15 U/L (4-34); AST 25 U/L (14-36); African American GFR (CKD) >90 (>60 ml/min/1.73 sqM); Alkaline Phosphatase 75 U/L (38-126); Anion Gap 5 mmol/L; Blood Urea Nitrogen 7 mg/dL (7-17); Calcium 8.8 mg/dL (8.4-10.2); Carbon Dioxide 27 mmol/L (22-30); Chloride 107 mmol/L (98-107); Glucose 105 mg/dL (74-99); Magnesium 1.6 mg/dL (1.6-2.3); Non-African American GFR(CKD) >90 (>60 ml/min/1.73 sqM); Phosphorus 4.1 mg/dL (2.5-4.5); Potassium 4.2 mmol/L (3.5-5.1); Sodium 139 mmol/L (137-145); Total Bilirubin 0.7 mg/dL (0.2-1.3); Total Protein 5.6 g/dL (6.3-8.2)
[2023-07-21] MEDS ORDERED: HYDROmorphone 1 MG/ML 1 ML SYRINGE IVP STA (18:35)
[2023-07-21] MEDS ORDERED: LORazepam 2 MG/ML INJ IV STA (18:36)
[2023-07-21 18:42] LABS: NT-Pro-B-Type Natriuretic Pept 1670 pg/mL
[2023-07-21] MEDS ORDERED: NALOXONE 0.4 MG/ML 1 ML VIAL IV PRN (22:19)
[2023-07-22] MEDS ORDERED: LOPERAMIDE 2 MG CAP PO PRN (00:03)
[2023-07-22] MEDS ORDERED: MAGNESIUM HYDROXIDE 2,400 MG/30 ML CUP PO PRN (00:03)
[2023-07-22] MEDS ORDERED: NON FORMULARY DRUG (Albuterol Inhaler 90 MCG Puff) INHALATION PRN (00:03)
[2023-07-22] MEDS ORDERED: IPRATROPIUM-ALBUTEROL 3 ML NEB INHALATION PRN (00:03)
[2023-07-22] MEDS ORDERED: ALBUTEROL NEBULIZED 2.5 MG/3 ML INHALATION PRN (00:03)
[2023-07-22] MEDS ORDERED: ONDANSETRON 4 MG/2 ML VIAL IVP PRN (00:06)
[2023-07-22] MEDS: oxyCODONE-APAP 10-325MG 1 EACH TAB PO PRN ×4 (00:56→20:04)
[2023-07-22] MEDS: LEVOTHYROXINE 75 MCG TAB PO SCH (06:11)
[2023-07-22] MEDS: FERROUS SULFATE 325 MG TAB PO SCH (06:11)
[2023-07-22] MEDS: METOCLOPRAMIDE 10 MG TAB PO SCH ×3 (06:34→16:58)
[2023-07-22] MEDS ORDERED: TORSEMIDE 20 MG TAB PO SCH (08:00)
[2023-07-22] MEDS ORDERED: APIXABAN 5 MG TAB PO SCH (08:00)
[2023-07-22] MEDS: PANTOPRAZOLE 40 MG TABLET PO SCH (08:10)
[2023-07-22] MEDS: DICYCLOMINE 20 MG TAB PO SCH ×4 (08:10→20:04)
[2023-07-22] MEDS: POTASSIUM CHLORIDE ER 20 MEQ TAB.ER PO SCH (08:10)
[2023-07-22] MEDS: GABAPENTIN 300 MG CAP PO SCH ×3 (08:10→20:03)
[2023-07-22] MEDS: SPIRONOLACTONE 25 MG TAB PO SCH (08:10)
[2023-07-22] MEDS: DAPAGLIFLOZIN PROPANEDIOL 10 MG TABLET PO SCH (08:11)
[2023-07-22] MEDS: carvediloL 6.25 MG TAB PO SCH ×2 (08:11→20:04)
[2023-07-22] MEDS: SILDENAFIL 20 MG TAB PO SCH ×3 (08:11→20:04)
[2023-07-22] MEDS: IPRATROPIUM-ALBUTEROL 3 ML NEB INHALATION SCH ×4 (08:41→21:53)
[2023-07-22] MEDS ORDERED: NON FORMULARY DRUG (Semaglutide [Ozempic] 0.25 MG/0.2 ML Each) SQ SCH (09:00)
[2023-07-22 11:32] LABS: Appearance,Urine Clear (Clear); Bacteria,Urine Rare /hpf; Bilirubin,Urine Negative (Negative); Blood,Urine Negative (Negative); Color,Urine Colorless; Glucose,Urine (UA) 3+ (Negative); Ketones,Urine Negative (Negative); Leukocyte Esterase,Urine Trace (Negative); Mucus,Urine Rare /hpf; Nitrite,Urine Negative (Negative); Protein,Urine Negative (Negative); Specific Gravity,Urine 1.005 (1.001-1.035); Squamous Epithelial Cell,Urine <1 /hpf (0-4); Urobilinogen,Urine <2.0 mg/dL (<2.0); WBC,Urine 5 /hpf (0-5)
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
[2023-07-22] MEDS: SERTRALINE 50 MG TAB PO SCH (16:58)
[2023-07-22] MEDS: BUMETANIDE 0.25 MG/ML 10 ML VIAL IV SCH (17:40)
--- NOTE | 2023-07-22 17:53 | CT ---
EXAMINATION TYPE: CT lumbar spine wo con DATE OF EXAM: 07/22/2023 COMPARISON: 04/08/2023 HISTORY: 73-year-old female Chronic lower back pain TECHNIQUE: Contiguous axial scanning of the lumbar spine without IV contrast. Coronal and sagittal re constructions performed. CT DLP: 3426.5 mGycm Automated exposure control for dose reduction was used. FINDINGS: Bridging anterior endplate spondylosis lower thoracic spine compatible with dish. There is moderate to advanced degenerative disc disease especially at L1-L3 levels. Advanced hypertro phic facet arthropathy and Baastrup's disease. Vertebral body heights are preserved. Degenerative grade 1 retrolisthesis L2-L3. Remaining alignment is maintained. Large patient body habitus causes prominent artifacts limiting the evaluation. On the right, moderate to severe neuroforaminal stenosis L3-L4 and L4-L5. Moderate at L2-L3. On the left, there is moderate neural foraminal stenosis L2-L3, L3-L4, and L4-L5. Nondiagnostic spinal canal due to the extent of artifact. There is a right L5 hemisacralization with an assimilation joint. IMPRESSION: 1. NONDIAGNOSTIC SPINAL CANAL DUE TO THE EXTENSIVE ARTIFACTS FROM PATIENT'S LARGE BODY HABITUS. 2. RIGHT L5 HEMISACRALIZATION WITH AN ASSIMILATION JOINT. 3. DISH IN THE LOWER THORACIC SPINE. 4. MODERATE TO ADVANCED DEGENERATIVE DISC DISEASE L1 THROUGH L3 LEVELS. ADVANCED HYPERTROPHIC FACET A RTHROPATHY AND BAASTRUP'S DISEASE. 5. DEGENERATIVE GRADE 1 RETROLISTHESIS L2-L3. 6. VARIABLE NEURAL FORAMINAL STENOSES OUTLINED ABOVE. MODERATE TO SEVERE ON THE RIGHT AT L3-L4 AND L4-L5.
--- NOTE | 2023-07-22 23:02 | HP ---
HISTORY AND PHYSICAL HISTORY OF PRESENT ILLNESS: This is a 73-year-old white female, chronic lower back pain secondary to degenerative disk disease, facet arthropathy, came to ER yesterday for severe pain, was sent home. Came back for shortness of breath today and increased leg swelling. She ran out of her home pain medicines also. She is living at home now. PAST MEDICAL HISTORY: OA, AFib, cancer, angina, pulmonary hypertension, GERD, COPD, CVA, renal disease, and skin disorder. PAST SURGICAL HISTORY: Adenoidectomy, bladder surgery, cholecystectomy, tonsillectomy, and Mackenzie port. FAMILY HISTORY: Father, bladder and lung cancer, CVA, hypertension, HI. REVIEW OF SYSTEMS: A 14-point review of systems otherwise negative except for severe swelling. PHYSICAL EXAMINATION: MUSCULOSKELETAL: She has severe tenderness over the sacroiliac joint, right side, left side is less than 20 degrees, extension of lumbar spine. status is positive. YONNY test positive. ASSESSMENT: Lumbar degenerative disk disease, possible osteoarthritis of the hip. She is on Eliquis, followup and do outpatient epidural shots as she is on Eliquis, continue her thyroid medicine and breathing treatments, etc. We will get Cardiology involved for IV Lasix for leg swelling, etc. Prognosis guarded. Please see further orders. MMODL / IJN: [id number] /
[2023-07-23] MEDS: oxyCODONE-APAP 10-325MG 1 EACH TAB PO PRN ×4 (03:36→23:13)
[2023-07-23] MEDS: LEVOTHYROXINE 75 MCG TAB PO SCH (05:33)
[2023-07-23] MEDS: BUMETANIDE 0.25 MG/ML 10 ML VIAL IV SCH (05:33)
[2023-07-23] MEDS: FERROUS SULFATE 325 MG TAB PO SCH (05:33)
[2023-07-23] MEDS: METOCLOPRAMIDE 10 MG TAB PO SCH ×3 (06:15→17:36)
[2023-07-23] MEDS: IPRATROPIUM-ALBUTEROL 3 ML NEB INHALATION SCH ×4 (08:11→18:42)
[2023-07-23] MEDS ORDERED: ENOXAPARIN 40 MG/0.4 ML SYRINGE SQ SCH (09:00)
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
[2023-07-23] MEDS: GABAPENTIN 300 MG CAP PO SCH ×3 (10:17→20:11)
[2023-07-23] MEDS: DAPAGLIFLOZIN PROPANEDIOL 10 MG TABLET PO SCH (10:17)
[2023-07-23] MEDS: DICYCLOMINE 20 MG TAB PO SCH ×4 (10:17→20:11)
[2023-07-23] MEDS: FUROSEMIDE 10 MG/ML 4 ML VIAL IV SCH ×3 (10:17→23:14)
[2023-07-23] MEDS: POTASSIUM CHLORIDE ER 20 MEQ TAB.ER PO SCH (10:17)
[2023-07-23] MEDS: PANTOPRAZOLE 40 MG TABLET PO SCH (10:18)
[2023-07-23] MEDS: carvediloL 6.25 MG TAB PO SCH ×2 (10:18→20:11)
[2023-07-23] MEDS: SPIRONOLACTONE 25 MG TAB PO SCH (10:18)
[2023-07-23] MEDS: SILDENAFIL 20 MG TAB PO SCH ×3 (10:18→20:11)
[2023-07-23] MEDS: APIXABAN 5 MG TAB PO SCH ×2 (10:18→20:11)
[2023-07-23] MEDS: SERTRALINE 50 MG TAB PO SCH (16:05)
--- NOTE | 2023-07-23 20:55 | XR ---
EXAMINATION TYPE: XR chest 2V DATE OF EXAM: 07/23/2023 COMPARISON: 06/23/2023 HISTORY: 73 year-old female shortness of breath, follow-up pneumonia TECHNIQUE: Frontal and lateral views FINDINGS: Right sided CVC tip at the lower SVC. Heart mildly enlarged. Tortuous/ectatic thoracic aorta redemons trated. Very large patient body habitus and AP technique limits the evaluation. No obvious sizable pl eural effusion is seen. No lynda consolidation. IMPRESSION: Large patient body habitus limits the evaluation. Similar mild cardiomegaly and tortuous/ectatic thor acic aorta.
[2023-07-23 21:37] VITALS: RESP 16
[2023-07-24] MEDS: oxyCODONE-APAP 10-325MG 1 EACH TAB PO PRN ×3 (05:43→16:54)
[2023-07-24] MEDS: LEVOTHYROXINE 75 MCG TAB PO SCH (05:43)
[2023-07-24] MEDS: FERROUS SULFATE 325 MG TAB PO SCH (05:43)
[2023-07-24] MEDS: METOCLOPRAMIDE 10 MG TAB PO SCH ×3 (06:51→16:55)
[2023-07-24] MEDS: IPRATROPIUM-ALBUTEROL 3 ML NEB INHALATION SCH ×3 (08:37→15:40)
[2023-07-24] MEDS ORDERED: TORSEMIDE 20 MG TAB PO SCH (09:00)
[2023-07-24 09:02] LABS: BUN/Creat Ratio 17.56 Ratio (12.00-20.00); Blood Urea Nitrogen 15.8 mg/dL (9.0-27.0); Calcium 8.7 mg/dL (8.7-10.3); Carbon Dioxide 29.9 mmol/L (21.6-31.8); Chloride 100 mmol/L (96-109); Glucose 97 mg/dL (70-110); Potassium 4.6 mmol/L (3.5-5.5); Sodium 142 mmol/L (135-145)
--- NOTE | 2023-07-24 09:32 | P.PN ---
Subjective HISTORY OF PRESENT ILLNESS: This is a 73-year-old female with a past medical history significant for mild coronary artery disease, paroxysmal atrial fibrillation, congestive heart failure, CVA, hypertension, hyperlipidemia, and morbid obesity. Patient does not follow with a stitchdown thread laster. We have been asked to see the patient in consultation for lower extremity edema. Patient examined at the bedside. Patient states she has had issues with edema for a long time. She states that it had gotten better for a while and now her edema has gotten worse. She denies any chest pain or pressure. She denies any shortness of breath. She states that she is undergoing physical therapy to increase her mobility. * EKG reveals sinus mechanism with no signs of acute ischemia. Baseline artifact. * Chest xray not available at the time of this dictation * Laboratory data: WBC 7.2. Hemoglobin 10.7. Platelet count 222. Sodium 139. Potassium 4.2. BUN 7. Creatinine 0.52. Troponin negative 1. ProBNP 1670. * Current home cardiac medications include carvedilol 6.25 mg twice a day, Demadex 20 mg twice a day, Aldactone 12.5 mg daily, Eliquis 5 mg twice a day. * Most recent echocardiogram obtained in June 2022 revealed normal LV systolic function with an ejection fraction of 50-55%. Technically suboptimal study. * Cardiac catheterization history: 2015 revealed 30% stenosis of mid LAD, no significant obstructive CAD. EF 60% 07/24/2023 Patient examined this morning at the bedside. Patient denies chest pain or pressure. She denies shortness of breath. Lower extremity edema is improving. She remains on IV Lasix. Patient was unable to tolerate bedside echo yesterday. Vital signs are stable today. PHYSICAL EXAM: VITAL SIGNS: Reviewed. GENERAL: Well-developed in no acute distress. HEENT: Head is normocephalic. Pupils are equal, round. Sclerae anicteric. Mucous membranes of the mouth are moist. Neck supple. No JVD or thyromegaly LUNGS: Respirations even and unlabored. Lungs essentially clear to auscultation bilaterally. HEART: Regular rate and rhythm. S1 and S2 heard. ABDOMEN: Soft. Nondistended. Nontender. EXTREMITIES: Normal range of motion. No clubbing or cyanosis. Peripheral pulses intact. Bilateral nonpitting edema noted, worse at feet and ankles, im proving NEUROLOGIC: Awake and alert. Oriented x 3. ASSESSMENT: Acute on chronic lower extremity edema; possible small component of heart failure versus chronic edema from immobility Chronic heart failure with preserved ejection fraction Mild nonobstructive coronary artery disease with 30% stenosis in mid LAD, per cardiac catheterization 2016 Paroxysmal atrial fibrillation, anticoagulated with Eliquis Hypertension Hyperlipidemia History of CVA COPD Morbid obesity: BMI 98.8 PLAN: Continue IV Lasix Resume home Demadex Continue additional cardiac medications Patient is cleared for discharge from a cardiac standpoint We will sign off. Please reconsult if needed. Nurse practitioner note has been reviewed by physician. Signing provider agrees with the documented findings, assessment, and plan of care. Objective - Vital Signs Vital signs: Vital Signs Temp 98.2 F 07/24/23 07:00 Pulse 88 07/24/23 08:47 Resp 16 07/24/23 07:00 BP 93/51 07/24/23 07:00 Pulse Ox 96 07/24/23 08:37 FiO2 3 07/24/23 08:37 Intake & Output 07/23/23 07/24/23 07/24/23 18:59 06:59 18:59 Intake Total 951 118 Output Total 2800 1100 Balance -1849 -1100 118 Intake: Oral 951 118 Output: Urine 2800 1100 Other: Voiding Method External Catheter External Catheter - Labs CBC & Chem 7: 07/21/23 18:00 07/24/23 05:36 Labs: Abnormal Lab Results - Last 24 Hours (Table) 07/24/23 Range/Units 05:36 Anion Gap 12.10 H (4.00-12.00) mmol/L
[2023-07-24] MEDS: FUROSEMIDE 10 MG/ML 4 ML VIAL IV SCH (09:48)
[2023-07-24] MEDS: SPIRONOLACTONE 25 MG TAB PO SCH (09:52)
[2023-07-24] MEDS: DICYCLOMINE 20 MG TAB PO SCH ×2 (09:55→11:48)
[2023-07-24] MEDS: SILDENAFIL 20 MG TAB PO SCH ×2 (09:58→16:54)
[2023-07-24] MEDS: DAPAGLIFLOZIN PROPANEDIOL 10 MG TABLET PO SCH (09:58)
[2023-07-24] MEDS: PANTOPRAZOLE 40 MG TABLET PO SCH (09:59)
[2023-07-24] MEDS: POTASSIUM CHLORIDE ER 20 MEQ TAB.ER PO SCH (09:59)
[2023-07-24] MEDS: APIXABAN 5 MG TAB PO SCH (09:59)
[2023-07-24] MEDS: GABAPENTIN 300 MG CAP PO SCH ×2 (09:59→16:55)
[2023-07-24] MEDS: carvediloL 6.25 MG TAB PO SCH (09:59)
[2023-07-24] MEDS: SERTRALINE 50 MG TAB PO SCH (16:55)
[2023-07-24 17:01] VITALS: BP 124/74; PULSE 83; TEMP 98.2
== END 2023-07-24 17:28 | disposition home or self-care (01) ==
LOC: EC 15:46 → 6NMEDSUR 22:20 → EEVIPCON 22:20 → 6NMEDSUR 22:42
PROVIDERS: ADMIT Family Medicine; ATTEND Family Medicine
DX: R60.0 Localized edema (principal); M51.36 Other intervertebral disc degeneration, lumbar region; I11.0 Hypertensive heart disease with heart failure; I50.32 Chronic diastolic (congestive) heart failure; J44.9 Chronic obstructive pulmonary disease, unspecified; I25.2 Old myocardial infarction; M19.90 Unspecified osteoarthritis, unspecified site; E03.9 Hypothyroidism, unspecified; K22.70 Barrett's esophagus without dysplasia; R32 Unspecified urinary incontinence; K58.9 Irritable bowel syndrome, unspecified; L30.9 Dermatitis, unspecified; E66.01 Morbid (severe) obesity due to excess calories; Z68.45 Body mass index [BMI] 70 or greater, adult; F32.9 Major depressive disorder, single episode, unspecified; F41.9 Anxiety disorder, unspecified; G89.29 Other chronic pain; R10.9 Unspecified abdominal pain; M79.606 Pain in leg, unspecified; I48.0 Paroxysmal atrial fibrillation; I27.20 Pulmonary hypertension, unspecified; K21.9 Gastro-esophageal reflux disease without esophagitis; N28.9 Disorder of kidney and ureter, unspecified; I25.10 Atherosclerotic heart disease of native coronary artery without angina pectoris; E78.5 Hyperlipidemia, unspecified; Z79.890 Hormone replacement therapy; Z79.899 Other long term (current) drug therapy; Z79.01 Long term (current) use of anticoagulants; Z79.84 Long term (current) use of oral hypoglycemic drugs; Z88.8 Allergy status to other drugs, medicaments and biological substances; Z86.73 Personal history of transient ischemic attack (TIA), and cerebral infarction without residual deficits; Z87.440 Personal history of urinary (tract) infections; Z85.41 Personal history of malignant neoplasm of cervix uteri; Z87.19 Personal history of other diseases of the digestive system; Z87.442 Personal history of urinary calculi; Z96.653 Presence of artificial knee joint, bilateral; Z90.49 Acquired absence of other specified parts of digestive tract; Z82.49 Family history of ischemic heart disease and other diseases of the circulatory system; Z80.1 Family history of malignant neoplasm of trachea, bronchus and lung; Z82.3 Family history of stroke; Z80.52 Family history of malignant neoplasm of bladder
CPT/HCPCS: 96376; 96375 ×3; 96374; 99285; 36415; 94640 ×6; 94760 ×2; 93005; 83880; 80053; 80048; 83735; 84100; 84484; 85025; 81001; 71046; 72131; G0378 ×4; J2060; J1940; J1170

== ENCOUNTER 2023-08-01 18:01 | Emergency (ER) | payer MEDICARE, OTHER ==
[2023-08-01] MEDS ORDERED: HYDROmorphone 1 MG/ML 1 ML SYRINGE IM STA (18:35)
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
--- NOTE | 2023-08-01 19:12 | XR ---
EXAMINATION TYPE: XR shoulder complete LT DATE OF EXAM: 08/01/2023 6:56 PM CLINICAL INDICATION:Female, 73 years old with history of pain; [facility] COMPARISON: 05/08/2023. TECHNIQUE: XR shoulder complete LT; shoulder was examined in AP, internally rotated and scapular Y p rojections. FINDINGS: No evidence of acute osseous pathology, joint dislocation, or soft tissue swelling. The remaining po rtions of the visualized chest are unremarkable. Degeneration changes of the shoulder osteoarthritis ration acromion clavicle and glenoid. Mild joint space narrowing. Right central venous catheter tip in superior cavoatrial junction. Heart is moderately enlarged for s ize. Pulmonary vasculature congestion. IMPRESSION: 1. No acute osseous pathology. 2. [id number]-[id number] osteoarthrosis changes of the left shoulder.
[2023-08-01] MEDS ORDERED: HYDROmorphone 2 MG TAB PO STA (20:15)
[2023-08-01 21:48] VITALS: BP 144/80; PULSE 96; RESP 18; TEMP 98.2
== END 2023-08-02 00:43 | disposition home or self-care (01) ==
LOC: EC 18:01
DX: M25.512 Pain in left shoulder (principal); E03.9 Hypothyroidism, unspecified; E66.01 Morbid (severe) obesity due to excess calories; F32.A Depression, unspecified; F41.9 Anxiety disorder, unspecified; I25.2 Old myocardial infarction; I48.91 Unspecified atrial fibrillation; I50.9 Heart failure, unspecified; J44.9 Chronic obstructive pulmonary disease, unspecified; Z79.01 Long term (current) use of anticoagulants; Z79.84 Long term (current) use of oral hypoglycemic drugs; Z79.890 Hormone replacement therapy; Z79.899 Other long term (current) drug therapy; Z88.5 Allergy status to narcotic agent; Z88.6 Allergy status to analgesic agent; Z88.8 Allergy status to other drugs, medicaments and biological substances; Z90.49 Acquired absence of other specified parts of digestive tract; Z68.44 Body mass index [BMI] 60.0-69.9, adult
CPT/HCPCS: 99285 ×2; 96372 ×2; 73030; J1170

== ENCOUNTER 2023-08-02 16:15 | Observation (INO) | payer MEDICARE, OTHER ==
[2023-08-02] MEDS ORDERED: IPRATROPIUM-ALBUTEROL 3 ML NEB INHALATION STA (16:51)
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
[2023-08-02] MEDS ORDERED: ONDANSETRON 4 MG/2 ML VIAL IVP STA (16:52)
[2023-08-02] MEDS ORDERED: HYDROmorphone 1 MG/ML 1 ML SYRINGE IVP STA (16:52)
[2023-08-02 17:49] LABS: Basophils % (A) 0 %; Eosinophils # (A) 0.3 k/uL (0-0.7); Eosinophils % (A) 4 %; HGB 11.1 gm/dL (11.4-16.0); Hypochromasia Slight; Lymphocytes # (A) 1.2 k/uL (1.0-4.8); Lymphocytes % (A) 16 %; MCH 29.2 pg (25.0-35.0); MCHC 31.6 g/dL (31.0-37.0); MCV 92.2 fL (80.0-100.0); Monocytes # (A) 0.4 k/uL (0-1.0); Monocytes % (A) 5 %; Neutrophils # (A) 5.6 k/uL (1.3-7.7); Neutrophils % (A) 73 %; Platelet Count 317 k/uL (150-450); RDW 15.5 % (11.5-15.5); WBC 7.7 k/uL (3.8-10.6)
[2023-08-02 17:57] LABS: INR 0.9 (<1.2); Partial Thromboplastin Time 24.7 sec (22.0-30.0); Prothrombin Time 10.4 sec (10.0-12.5)
[2023-08-02 18:00] LABS: ALT 16 U/L (4-34); AST 22 U/L (14-36); African American GFR (CKD) >90 (>60 ml/min/1.73 sqM); Albumin 3.2 g/dL (3.5-5.0); Alkaline Phosphatase 81 U/L (38-126); Anion Gap 7 mmol/L; Blood Urea Nitrogen 6 mg/dL (7-17); Calcium 8.8 mg/dL (8.4-10.2); Carbon Dioxide 26 mmol/L (22-30); Chloride 107 mmol/L (98-107); Glucose 109 mg/dL (74-99); Non-African American GFR(CKD) 89 (>60 ml/min/1.73 sqM); Potassium 3.8 mmol/L (3.5-5.1); Sodium 140 mmol/L (137-145); Total Bilirubin 0.5 mg/dL (0.2-1.3); Total Protein 5.8 g/dL (6.3-8.2)
[2023-08-02 18:08] LABS: NT-Pro-B-Type Natriuretic Pept 485 pg/mL
--- NOTE | 2023-08-02 19:05 | XR ---
EXAMINATION TYPE: XR chest 2V DATE OF EXAM: 08/02/2023 6:08 PM CLINICAL INDICATION:Female, 73 years old with history of difficulty breathing; [facility] COMPARISON: Chest radiographs from 07/23/2023. TECHNIQUE: XR chest 2V Frontal and lateral views of the chest. FINDINGS: Lungs/Pleura: There is no evidence of pleural effusion, focal consolidation, or pneumothorax. Pulmonary vascularity: Pulmonary vascular congestion. Heart/mediastinum: Cardiomediastinal silhouette is enlarged and stable. Musculoskeletal: No acute osseous pathology. Other findings: None Lines/Tubes: Right-sided PICC line with distal tip at the cavoatrial junction. IMPRESSION: Cardiomegaly and mild pulmonary vascular congestion. Correlate with BNP for congestive heart failure. Superimposed infection would be difficult to exclude given the appearance of the diffuse haziness of lungs.
[2023-08-02] MEDS ORDERED: FUROSEMIDE 10 MG/ML 10 ML VIAL IV STA (19:32)
[2023-08-02] MEDS ORDERED: NALOXONE 0.4 MG/ML 1 ML VIAL IV PRN (20:02)
[2023-08-02] MEDS ORDERED: ONDANSETRON ODT 8 MG TAB.RAPDIS PO PRN (20:56)
[2023-08-02] MEDS ORDERED: MAGNESIUM HYDROXIDE 2,400 MG/30 ML CUP PO PRN (20:56)
[2023-08-02] MEDS: oxyCODONE-APAP 7.5-325MG 1 EACH TAB PO PRN (21:13)
[2023-08-02] MEDS: DICYCLOMINE 20 MG TAB PO SCH (22:10)
[2023-08-02] MEDS: SILDENAFIL 20 MG TAB PO SCH (22:10)
[2023-08-03] MEDS: oxyCODONE-APAP 7.5-325MG 1 EACH TAB PO PRN ×3 (03:24→17:09)
[2023-08-03 06:09] LABS: Basophils % (A) 1 %; Eosinophils # (A) 0.2 k/uL (0-0.7); Eosinophils % (A) 4 %; HCT 31.2 % (34.0-46.0); HGB 9.8 gm/dL (11.4-16.0); Hypochromasia Slight; Lymphocytes # (A) 1.2 k/uL (1.0-4.8); Lymphocytes % (A) 23 %; MCHC 31.5 g/dL (31.0-37.0); MCV 92.1 fL (80.0-100.0); Mean Platelet Volume 7.5; Monocytes # (A) 0.4 k/uL (0-1.0); Monocytes % (A) 7 %; Neutrophils # (A) 3.4 k/uL (1.3-7.7); Neutrophils % (A) 64 %; Platelet Count 254 k/uL (150-450); RBC 3.39 m/uL (3.80-5.40); RDW 15.4 % (11.5-15.5); WBC 5.3 k/uL (3.8-10.6)
[2023-08-03] MEDS: FERROUS SULFATE 325 MG TAB PO SCH (06:11)
[2023-08-03] MEDS: LEVOTHYROXINE 75 MCG TAB PO SCH (06:11)
[2023-08-03] MEDS: METOCLOPRAMIDE 10 MG TAB PO SCH ×3 (06:11→17:09)
[2023-08-03] MEDS: IPRATROPIUM-ALBUTEROL 3 ML NEB INHALATION SCH ×4 (08:34→20:41)
[2023-08-03] MEDS: SPIRONOLACTONE 25 MG TAB PO SCH (09:09)
[2023-08-03] MEDS: FUROSEMIDE 10 MG/ML 4 ML VIAL IV SCH ×2 (09:09→20:03)
[2023-08-03] MEDS: POTASSIUM CHLORIDE ER 20 MEQ TAB.ER PO SCH (09:10)
[2023-08-03] MEDS: GABAPENTIN 300 MG CAP PO SCH ×3 (09:10→20:03)
[2023-08-03] MEDS: PANTOPRAZOLE 40 MG TABLET PO SCH (09:10)
[2023-08-03] MEDS: APIXABAN 5 MG TAB PO SCH ×2 (09:10→20:02)
[2023-08-03] MEDS: DAPAGLIFLOZIN PROPANEDIOL 10 MG TABLET PO SCH (09:10)
[2023-08-03] MEDS: carvediloL 6.25 MG TAB PO SCH ×2 (09:10→20:02)
[2023-08-03] MEDS: SILDENAFIL 20 MG TAB PO SCH (09:11)
[2023-08-03] MEDS: DICYCLOMINE 20 MG TAB PO SCH ×4 (09:11→21:32)
[2023-08-03 12:13] LABS: BUN/Creat Ratio 7.29 Ratio (12.00-20.00); Blood Urea Nitrogen 5.1 mg/dL (9.0-27.0); Calcium 8.5 mg/dL (8.7-10.3); Carbon Dioxide 26.1 mmol/L (21.6-31.8); Chloride 105 mmol/L (96-109); Glucose 100 mg/dL (70-110); Potassium 4.2 mmol/L (3.5-5.5); Sodium 141 mmol/L (135-145)
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
[2023-08-03] MEDS ORDERED: SERTRALINE 50 MG TAB PO SCH (17:00)
[2023-08-03] MEDS ORDERED: HYDROmorphone 1 MG/ML 1 ML SYRINGE IVP STA (21:23)
--- NOTE | 2023-08-03 22:08 | HP ---
HISTORY AND PHYSICAL HISTORY OF PRESENT ILLNESS: This is a 73-year-old white female, atrial fibrillation, past medical history of atrial fibrillation, COPD, presents with shortness of breath started last night, swelling in her lower extremities, taking her diuretic as directed. She came to the hospital with nausea, chronic back pain. No precipitating failure. Cardiology and Pulmonary are ordered. MEDICATIONS: Reviewed. ALLERGIES: To medicines reviewed. REVIEW OF SYSTEMS: A 14-point review of systems positive for PND, orthopnea, and dyspnea with exertion. She wears 2 L 24 hours a day at home. MEDICAL HISTORY: History of atrial fibrillation, COPD, CVA, TIA, osteoarthritis, community-acquired pneumonia, pulmonary embolism, skin disorder, thyroid disorder, colitis, IBS, herniated discs. Psych, anxiety, depression. SURGICAL HISTORY: Bladder surgery, cholecystectomy, heart catheterization, joint replacement, orthopedic surgery, tonsillectomy, heart catheterization, no stents, both knees replaced. FAMILY HISTORY: Mother with myocardial infarction. PHYSICAL EXAMINATION: VITAL SIGNS: Temperature 98.7, pulse 88 to 90, respiratory rate 18 to 20, blood pressure 145/109, and O2 97. GI: Distended, obesity. CARDIOVASCULAR: S1, S2. RESPIRATORY: Decreased breath sounds x4. HEENT: Normocephalic, atraumatic. Ophthalmologic, pupils equal, round, and reactive. NECK: Supple. NEUROLOGIC: Cranial nerves intact. PSYCH: Fair mood and affect. ASSESSMENT: Hypertension, acute on chronic diastolic heart failure, acute on chronic COPD exacerbation, asthma exacerbation, tracheobronchitis. Chest x-ray shows pulmonary edema. She will be given IV Lasix, admitted for acute on chronic diastolic CHF. Prognosis is guarded. Continue current treatment. Please see further orders. MMODL / IJN: [id number] /
[2023-08-04] MEDS: oxyCODONE-APAP 7.5-325MG 1 EACH TAB PO PRN ×3 (04:23→16:41)
[2023-08-04] MEDS: FERROUS SULFATE 325 MG TAB PO SCH (06:17)
[2023-08-04] MEDS: LEVOTHYROXINE 75 MCG TAB PO SCH (06:17)
[2023-08-04] MEDS: METOCLOPRAMIDE 10 MG TAB PO SCH ×2 (06:18→13:05)
[2023-08-04] MEDS: IPRATROPIUM-ALBUTEROL 3 ML NEB INHALATION SCH ×3 (07:20→15:09)
[2023-08-04] MEDS: FUROSEMIDE 10 MG/ML 4 ML VIAL IV SCH (08:37)
[2023-08-04] MEDS: DICYCLOMINE 20 MG TAB PO SCH ×2 (08:38→13:05)
[2023-08-04] MEDS: APIXABAN 5 MG TAB PO SCH (08:38)
[2023-08-04] MEDS: SPIRONOLACTONE 25 MG TAB PO SCH (08:38)
[2023-08-04] MEDS: POTASSIUM CHLORIDE ER 20 MEQ TAB.ER PO SCH (08:38)
[2023-08-04] MEDS: PANTOPRAZOLE 40 MG TABLET PO SCH (08:38)
[2023-08-04] MEDS: GABAPENTIN 300 MG CAP PO SCH (08:38)
[2023-08-04] MEDS: DAPAGLIFLOZIN PROPANEDIOL 10 MG TABLET PO SCH (08:38)
[2023-08-04] MEDS: carvediloL 6.25 MG TAB PO SCH (08:38)
--- NOTE | 2023-08-04 09:42 | P.PN ---
Subjective HISTORY OF PRESENT ILLNESS: Patient examined this morning at the bedside. She denies chest pain or pressure. She reports her shortness of breath is improving. She remains on nasal cannula to maintain oxygen saturations greater than 92%. She states that she wears oxygen at home. Patient remains on IV Lasix. Urine output over the last 24 hours is about 4.5 L. Vital signs this morning are stable. PHYSICAL EXAM: VITAL SIGNS: Reviewed. GENERAL: Well-developed in no acute distress. NECK: Supple. No JVD or thyromegaly LUNGS: Respirations even and unlabored. Lungs essentially clear to auscultation bilaterally. HEART: Regular rate and rhythm. S1 and S2 heard. EXTREMITIES: Normal range of motion. No clubbing or cyanosis. Peripheral pulses intact. Trace lower extremity edema ASSESSMENT: Shortness of breath Acute on chronic heart failure with preserved ejection fraction Medication noncompliance, patient not taking diuretics on an outpatient basis Paroxysmal atrial fibrillation History of COPD Hypertension History of CVA Morbid obesity PLAN: Continue current cardiac medications Give dose of IV Lasix this morning and then transition to oral diuretics: Bumex 1 mg twice a day Patient may be discharged home this afternoon from a cardiac standpoint Nurse practitioner note has been reviewed by physician. Signing provider agrees with the documented findings, assessment, and plan of care. Objective - Vital Signs Vital signs: Vital Signs Temp 98.0 F 08/04/23 07:00 Pulse 88 08/04/23 07:30 Resp 16 08/04/23 07:00 BP 103/63 08/04/23 07:00 Pulse Ox 96 08/04/23 07:00 FiO2 Intake & Output 08/03/23 08/04/23 08/04/23 18:59 06:59 18:59 Intake Total 1080 400 540 Output Total 2500 1950 Balance -1420 -1550 540 Intake: Oral 1080 400 540 Output: Urine 2500 1950 Other: Voiding Method External Catheter External Catheter External Catheter - Labs CBC & Chem 7: 08/03/23 05:35 08/03/23 05:35 Labs: Abnormal Lab Results - Last 24 Hours (Table) 08/03/23 Range/Units 05:35 BUN 5.1 L (9.0-27.0) mg/dL BUN/Creatinine Ratio 7.29 L (12.00-20.00) Ratio Calcium 8.5 L (8.7-10.3) mg/dL
[2023-08-04 14:48] VITALS: BP 80/46; PULSE 81; RESP 18; TEMP 97.9
[2023-08-04 15:47] LABS: Blood Urea Nitrogen 10.8 mg/dL (9.0-27.0); Calcium 8.7 mg/dL (8.7-10.3); Carbon Dioxide 31.4 mmol/L (21.6-31.8); Chloride 102 mmol/L (96-109); Glucose 112 mg/dL (70-110); Potassium 4.3 mmol/L (3.5-5.5); Sodium 142 mmol/L (135-145)
[2023-08-04] MEDS ORDERED: BUMETANIDE 1 MG TAB PO SCH (16:00)
--- NOTE | 2023-08-05 00:41 | PN ---
PROGRESS NOTE SUBJECTIVE: This 73-year-old white female came with congestive heart failure, discharge patient today. She is doing better. She is to go home with diuresis. IV Lasix is given this morning. She is switched over to Bumex 1 mg b.i.d., to follow up as an outpatient. CONDITION: Stable. PROGNOSIS: Guarded. Urine output is about 4.5 L for last 24 hours with IV Bumex. Acute on chronic heart failure, preserved ejection fraction. Medication noncompliance, paroxysmal atrial fib, COPD, pulmonary hypertension, CVA, morbid obesity, oral Bumex. Compliance with outpatient medicines. Follow up in the near future. Prognosis guarded. MMODL / IJN: [id number] /
== END 2023-08-04 17:00 | disposition home or self-care (01) ==
LOC: EC 16:15 → 6NMEDSUR 20:03
PROVIDERS: ADMIT Family Medicine; ATTEND Family Medicine
DX: I11.0 Hypertensive heart disease with heart failure (principal); I50.33 Acute on chronic diastolic (congestive) heart failure; I48.0 Paroxysmal atrial fibrillation; T50.2X6A Underdosing of carbonic-anhydrase inhibitors, benzothiadiazides and other diuretics, initial encounter; Z91.148 Patient's other noncompliance with medication regimen for other reason; I25.10 Atherosclerotic heart disease of native coronary artery without angina pectoris; J44.1 Chronic obstructive pulmonary disease with (acute) exacerbation; J45.901 Unspecified asthma with (acute) exacerbation; E78.5 Hyperlipidemia, unspecified; E03.9 Hypothyroidism, unspecified; K22.70 Barrett's esophagus without dysplasia; K44.9 Diaphragmatic hernia without obstruction or gangrene; K58.9 Irritable bowel syndrome, unspecified; I25.2 Old myocardial infarction; I27.20 Pulmonary hypertension, unspecified; G89.29 Other chronic pain; M51.24 Other intervertebral disc displacement, thoracic region; M51.27 Other intervertebral disc displacement, lumbosacral region; M19.90 Unspecified osteoarthritis, unspecified site; E66.01 Morbid (severe) obesity due to excess calories; Z68.44 Body mass index [BMI] 60.0-69.9, adult; Z59.7 Insufficient social insurance and welfare support; Z79.890 Hormone replacement therapy; Z79.01 Long term (current) use of anticoagulants; Z79.84 Long term (current) use of oral hypoglycemic drugs; Z79.85 Long-term (current) use of injectable non-insulin antidiabetic drugs; Z79.899 Other long term (current) drug therapy; Z88.6 Allergy status to analgesic agent; Z88.5 Allergy status to narcotic agent; Z88.8 Allergy status to other drugs, medicaments and biological substances; Z86.73 Personal history of transient ischemic attack (TIA), and cerebral infarction without residual deficits; Z86.711 Personal history of pulmonary embolism; Z85.41 Personal history of malignant neoplasm of cervix uteri; Z87.19 Personal history of other diseases of the digestive system; Z87.442 Personal history of urinary calculi; Z87.01 Personal history of pneumonia (recurrent); Z87.11 Personal history of peptic ulcer disease; Z90.710 Acquired absence of both cervix and uterus; Z90.49 Acquired absence of other specified parts of digestive tract; Z96.653 Presence of artificial knee joint, bilateral; Z96.642 Presence of left artificial hip joint; Z98.890 Other specified postprocedural states; Z82.49 Family history of ischemic heart disease and other diseases of the circulatory system; Z82.3 Family history of stroke; Z80.52 Family history of malignant neoplasm of bladder; Z80.1 Family history of malignant neoplasm of trachea, bronchus and lung; Z83.2 Family history of diseases of the blood and blood-forming organs and certain disorders involving the immune mechanism
CPT/HCPCS: 96376 ×2; 96374; 96375; 99285; 36415; 94640 ×5; 93005; 83880; 80053; 80048 ×2; 83605; 84484; 85025 ×2; 85610; 85730; 71046; G0378 ×3; J1940 ×3; J2405; J1170 ×2

== ENCOUNTER 2023-08-11 15:48 | Observation (INO) | payer MEDICARE, OTHER ==
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
[2023-08-11] MEDS ORDERED: ASPIRIN 81 MG PO STA (17:28)
[2023-08-11] MEDS ORDERED: NITROGLYCERIN OINT 1 INCH/GM PACKET TOPICAL STA (17:28)
--- NOTE | 2023-08-11 18:24 | XR ---
EXAMINATION TYPE: XR chest 2V DATE OF EXAM: 08/11/2023 6:17 PM CLINICAL INDICATION:Female, 73 years old with history of Chest Pain; [facility] COMPARISON: Chest radiographs from 08/02/2023 TECHNIQUE: XR chest 2V Frontal and lateral views of the chest. FINDINGS: Lungs/Pleura: There is no evidence of pleural effusion, focal consolidation, or pneumothorax. Pulmonary vascularity: Unremarkable. Heart/mediastinum: Cardiomediastinal silhouette is unremarkable. Musculoskeletal: No acute osseous pathology. Other findings: None Lines/Tubes: Right internal jugular central venous catheter with distal tip at the cavoatrial junction. IMPRESSION: No evidence for focal consolidation. Correlate with serum BNP for congestive heart failure changes. Right central venous catheter with tip in appropriate position.
[2023-08-11 18:26] LABS: Basophils % (A) 0 %; Eosinophils # (A) 0.2 k/uL (0-0.7); Eosinophils % (A) 2 %; HCT 32.3 % (34.0-46.0); HGB 10.7 gm/dL (11.4-16.0); Lymphocytes # (A) 1.3 k/uL (1.0-4.8); Lymphocytes % (A) 14 %; MCH 29.7 pg (25.0-35.0); MCHC 33.1 g/dL (31.0-37.0); MCV 89.6 fL (80.0-100.0); Mean Platelet Volume 7.6; Monocytes # (A) 0.4 k/uL (0-1.0); Monocytes % (A) 5 %; Neutrophils # (A) 7.5 k/uL (1.3-7.7); Neutrophils % (A) 78 %; Platelet Count 281 k/uL (150-450); RDW 14.5 % (11.5-15.5); WBC 9.5 k/uL (3.8-10.6)
[2023-08-11 18:35] LABS: INR 0.9 (<1.2); Prothrombin Time 10.1 sec (10.0-12.5)
[2023-08-11 18:43] LABS: ALT 18 U/L (4-34); AST 25 U/L (14-36); African American GFR (CKD) >90 (>60 ml/min/1.73 sqM); Alkaline Phosphatase 78 U/L (38-126); Anion Gap 4 mmol/L; Blood Urea Nitrogen 8 mg/dL (7-17); Calcium 8.8 mg/dL (8.4-10.2); Carbon Dioxide 28 mmol/L (22-30); Chloride 105 mmol/L (98-107); Glucose 113 mg/dL (74-99); Magnesium 1.7 mg/dL (1.6-2.3); Non-African American GFR(CKD) 89 (>60 ml/min/1.73 sqM); Sodium 137 mmol/L (137-145); Total Bilirubin 0.5 mg/dL (0.2-1.3); Total Protein 5.4 g/dL (6.3-8.2)
[2023-08-11] MEDS ORDERED: NITROGLYCERIN SL TABS 0.4 MG TAB SUBLINGUAL PRN (19:32)
[2023-08-11] MEDS: oxyCODONE-APAP 7.5-325MG 1 EACH TAB PO PRN (19:55)
[2023-08-11] MEDS: HYDROmorphone 0.5 MG/0.5 ML SYRINGE IVP PRN (22:50)
[2023-08-11] MEDS: NITROGLYCERIN OINT 1 INCH/GM PACKET TOPICAL SCH (23:56)
[2023-08-12] MEDS: oxyCODONE-APAP 7.5-325MG 1 EACH TAB PO PRN ×3 (01:50→15:45)
[2023-08-12] MEDS: HYDROmorphone 0.5 MG/0.5 ML SYRINGE IVP PRN ×2 (05:35→12:53)
[2023-08-12] MEDS: NITROGLYCERIN OINT 1 INCH/GM PACKET TOPICAL SCH ×4 (05:44→23:03)
[2023-08-12] MEDS: ASPIRIN 325 MG TAB PO SCH (09:35)
[2023-08-12 10:57] LABS: Chol/HDL Ratio 3.21 Ratio; LDL Cholesterol,Calculated 78.7 mg/dL (0.0-131.0)
[2023-08-12] MEDS ORDERED: ONDANSETRON 4 MG TAB PO PRN (14:47)
[2023-08-12] MEDS: IPRATROPIUM-ALBUTEROL 3 ML NEB INHALATION SCH ×2 (15:35→19:51)
[2023-08-12] MEDS: ENOXAPARIN 60 MG/0.6 ML SYRINGE SQ SCH (15:44)
[2023-08-12] MEDS ORDERED: oxyCODONE-APAP 10-325MG 1 EACH TAB PO SCH (18:00)
[2023-08-12] MEDS: PANTOPRAZOLE 40 MG TABLET PO SCH (18:02)
[2023-08-12] MEDS: FLUTICASONE 50MCG/SPRAY NASAL 16GM EA NOSTRIL SCH (19:43)
[2023-08-12] MEDS: MONTELUKAST 10 MG TAB PO SCH (21:05)
[2023-08-12] MEDS: TORSEMIDE 20 MG TAB PO SCH (21:05)
[2023-08-12] MEDS: HYDROmorphone 1 MG/ML 1 ML SYRINGE IVP PRN (21:06)
--- NOTE | 2023-08-13 00:12 | HP ---
HISTORY AND PHYSICAL HISTORY OF PRESENT ILLNESS: A 73-year-old white female, chronic chest discomfort, gets this once or twice a month. She came in. She thinks the Mackenzie in her right chest she has not been using in a few weeks. The nurse says it is plugged, concerned that this may be causing her chest pain. It may need to come out or be replaced. She also has COPD and asthma. She says she has been doing her breathing treatments at home, unclear etiology. HOME MEDICATIONS: 1. Synthroid 150 daily. 2. Demadex 20 b.i.d. 3. Eliquis 5 mg b.i.d. for atrial fibrillation. 4. Zoloft 50 mg daily. 5. DuoNeb q.i.d. 6. Coreg 6.25 b.i.d. 7. Temovate cream daily. 8. Ferrous sulfate daily. 9. Bactroban 2% topically daily. 10.Ozempic 0.25 mg once a week. 11.Ventolin inhaler 2 puffs at bedtime. 12.Farxiga 10 mg daily. 13.Reglan 10 mg a.c. t.i.d. 14.Protonix 40 mg daily. PAST SURGICAL HISTORY: Adenoidectomy, bladder surgery, cholecystectomy, heart catheterization, hysterectomy, joint replacement, orthopedic surgery, tonsillectomy, left and right knee replacements, EGD, colonoscopies, etc. SOCIAL HISTORY: Father, cancer, CVA, TIA, hypertension. Mother, myocardial infarction. PHYSICAL EXAMINATION: VITAL SIGNS: Temperature 98, pulse 70 to 90, respiratory rate 18 to 20, blood pressure 140s to 150s over 70s to 80s. CARDIOVASCULAR: S1, S2. MUSCULOSKELETAL: Tenderness to palpation of cervical and lumbar spine. GI: Soft, distended, obesity. HEMATOLOGY: 2+ edema. ASSESSMENT: Atypical chest pain, possible port obstruction. Consult Vascular. Restart home medications. Cardiology for chest pain. Continue home medications. Prognosis guarded. MMODL / IJN: [id number] /
[2023-08-13] MEDS: HYDROmorphone 1 MG/ML 1 ML SYRINGE IVP PRN ×3 (02:54→16:07)
[2023-08-13] MEDS: NITROGLYCERIN OINT 1 INCH/GM PACKET TOPICAL SCH (05:28)
--- NOTE | 2023-08-13 07:22 | PN ---
PROGRESS NOTE SUBJECTIVE: This is a 73-year-old white female. Hemoglobin 7.7, white count is 9.5, glucose 113, sodium 137, potassium 4.0, creatinine 0.62. Troponins negative x3. Albumin is 3.0. OBJECTIVE: CARDIOVASCULAR: S1, S2. LUNGS: Scattered wheeze and rhonchi. Wait for cardiology clearance for discharge, vascular consult for possible fixing her chest tube line, PICC line due to the venous catheter distal tip in the cavoatrial junction. Possible acute on chronic diastolic heart failure. Wait for cardiology to clear her as well as the vascular surgeon, Dr. Dahl and then would send her home. MMODL / IJN: [id number] /
[2023-08-13] MEDS: IPRATROPIUM-ALBUTEROL 3 ML NEB INHALATION SCH ×4 (08:30→22:43)
[2023-08-13] MEDS ORDERED: NON FORMULARY DRUG (Semaglutide [Ozempic] 0.25 MG/0.2 ML Each) SQ SCH (09:00)
[2023-08-13] MEDS: ASPIRIN 325 MG TAB PO SCH (09:42)
[2023-08-13] MEDS: ENOXAPARIN 60 MG/0.6 ML SYRINGE SQ SCH (09:42)
[2023-08-13] MEDS: PANTOPRAZOLE 40 MG TABLET PO SCH ×2 (09:43→17:44)
[2023-08-13] MEDS: FLUTICASONE 50MCG/SPRAY NASAL 16GM EA NOSTRIL SCH (09:43)
[2023-08-13] MEDS: TORSEMIDE 20 MG TAB PO SCH ×2 (09:43→21:12)
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
[2023-08-13] MEDS: oxyCODONE-APAP 7.5-325MG 1 EACH TAB PO PRN ×2 (13:55→21:12)
[2023-08-13] MEDS ORDERED: LIDOCAINE 1% INJ 10MG/ML (20 ML MDV) SQ ONE (15:24)
[2023-08-13] MEDS: MONTELUKAST 10 MG TAB PO SCH (21:12)
[2023-08-14] MEDS: HYDROmorphone 1 MG/ML 1 ML SYRINGE IVP PRN ×2 (03:28→09:27)
[2023-08-14] MEDS: PANTOPRAZOLE 40 MG TABLET PO SCH (06:18)
[2023-08-14] MEDS: oxyCODONE-APAP 7.5-325MG 1 EACH TAB PO PRN (06:18)
[2023-08-14 07:48] VITALS: BP 103/69; PULSE 89; RESP 16; TEMP 97.9
[2023-08-14] MEDS: IPRATROPIUM-ALBUTEROL 3 ML NEB INHALATION SCH ×2 (08:47→12:09)
[2023-08-14] MEDS ORDERED: ASPIRIN 81 MG PO SCH (09:00)
[2023-08-14] MEDS: ENOXAPARIN 60 MG/0.6 ML SYRINGE SQ SCH (09:26)
[2023-08-14] MEDS: TORSEMIDE 20 MG TAB PO SCH (09:27)
[2023-08-14] MEDS: FLUTICASONE 50MCG/SPRAY NASAL 16GM EA NOSTRIL SCH (09:28)
--- NOTE | 2023-08-14 11:13 | P.PN ---
Subjective Progress Note Date: 08/14/23 Consult reason: chest pain History of present illness: History of present illness: This is a 73-year-old female with a past medical history of paroxysmal atrial fibrillation, COPD, chronic HFpEF, mild CAD. She also has history of CVA, hypertension, dyslipidemia, morbid obesity. We have been asked to evaluate the patient for chest pain. Patient states she came into the hospital due to chest pain related to her Mackenzie catheter which has not been functioning properly. She states that Dr. Dahl is supposed to come in and fix it. She states she had the Mackenzie's catheter placed sometime in May at [facility] but is unable to relate why other than she has poor vein access for blood draws etc. Patient denies any chest pain other than at the Mackenzie site, no radiation. She states the pain is gone. She is scheduled to see Dr. Dahl regarding catheter. Patient is a poor historian. EKG sinus rhythm Chest x-ray: no consolidation. WBC 9.5, hemoglobin 10.7, platelet count 281. INR 0.9. Electrolytes and renal function are normal. Blood sugar 113. Troponin negative 3. Triglycerides 157, cholesterol 160, LDL 78, HDL 49. Liver function tests are normal. Magnesium 1.7. Home cardiac medications: Eliquis 5 mg twice daily, torsemide 20 mg twice daily. Echocardiogram performed 06/2022 revealed normal left ventricular function. 08/14 Patient refusepatient refusesd echocardiogram yesterday. No complaints of chest pain. Dr. Dahl is working on removal of Mackenzie catheter. Blood pressure 103/69, heart rate in the 80s. Physical examination: Gen: This is a morbidly obese 73-year-old female. VS: reviewed HEENT: Head is atraumatic, normocephalic. Pupils equal, round. Sclerae is anicteric. NECK: Supple. No JVD. LUNGS: Clear to auscultation. No wheezes or rhonchi. No intercostal retractions. HEART: Regular rate and rhythm. systolic murmur. ABDOMEN: Soft No tenderness. EXTREMITIES: No pedal edema. No calf tenderness. NEUROLOGICAL: Patient is awake, alert. Assessment: Atypical chest pain Mackenzie catheter malfunction Paroxysmal atrial fibrillation COPD Chronic diastolic heart failure Hypertension, dyslipidemia History of stroke Morbid obesity Plan: Continue patient's home cardiac medications Cardiology will sign off this case and follow on an as-needed basis. Please reconsult for any new concerns. No need for follow up. Nurse practitioner note has been reviewed, I agree with documented findings and plan of care. Patient was seen and examined. Objective - Vital Signs Vital signs: Vital Signs Temp 97.9 F 08/14/23 07:00 Pulse 89 08/14/23 07:00 Resp 16 08/14/23 07:00 BP 103/69 08/14/23 07:00 Pulse Ox 98 08/14/23 07:00 FiO2 Intake & Output 08/13/23 08/14/23 08/14/23 18:59 06:59 18:59 Output Total 900 700 Balance -900 -700 Weight 124.738 kg Output: Urine 900 700 Stool 0 Other: Voiding Method Diaper Diaper External Catheter External Catheter - Labs CBC & Chem 7: 08/11/23 17:52 08/11/23 17:52
[2023-08-14 11:44] LABS: Glucose,Whole Blood 94 mg/dL (70-110)
== END 2023-08-14 13:17 ==
LOC: EC 15:48 → 6NMEDSUR 19:33
PROVIDERS: ADMIT Family Medicine; ATTEND Family Medicine
DX: R07.89 Other chest pain (principal); T82.514A Breakdown (mechanical) of infusion catheter, initial encounter; Y71.2 Prosthetic and other implants, materials and accessory cardiovascular devices associated with adverse incidents; I48.0 Paroxysmal atrial fibrillation; I11.0 Hypertensive heart disease with heart failure; I50.32 Chronic diastolic (congestive) heart failure; J44.9 Chronic obstructive pulmonary disease, unspecified; E03.9 Hypothyroidism, unspecified; F41.9 Anxiety disorder, unspecified; F32.A Depression, unspecified; I25.10 Atherosclerotic heart disease of native coronary artery without angina pectoris; E78.5 Hyperlipidemia, unspecified; I25.2 Old myocardial infarction; E66.01 Morbid (severe) obesity due to excess calories; Z68.43 Body mass index [BMI] 50.0-59.9, adult; Z85.41 Personal history of malignant neoplasm of cervix uteri; Z85.42 Personal history of malignant neoplasm of other parts of uterus; Z86.711 Personal history of pulmonary embolism; Z86.73 Personal history of transient ischemic attack (TIA), and cerebral infarction without residual deficits; Z79.01 Long term (current) use of anticoagulants; Z79.890 Hormone replacement therapy; Z79.899 Other long term (current) drug therapy; Z88.5 Allergy status to narcotic agent; Z88.6 Allergy status to analgesic agent
CPT/HCPCS: 96376 ×4; 96372 ×2; 96374; 99285; 36415; 94640; 94760; 93005 ×2; 80061; 80053; 83735; 84484 ×2; 85025; 85610; 85730; 71046; G0378 ×4; J2001; J1650 ×2; J1170 ×5

== ENCOUNTER 2023-08-19 17:48 | Emergency (ER) | payer MEDICARE, OTHER ==
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
--- NOTE | 2023-08-19 19:33 | XR ---
EXAMINATION TYPE: XR chest 2V DATE OF EXAM: 08/19/2023 6:54 PM CLINICAL INDICATION:Female, 73 years old with history of dyspnea; COMPARISON: Chest radiographs from 08/11/2023. TECHNIQUE: XR chest 2V Frontal and lateral views of the chest. FINDINGS: Lungs/Pleura: There is no evidence of pleural effusion, focal consolidation, or pneumothorax. Pulmonary vascularity: Unremarkable. Heart/mediastinum: Cardiomediastinal silhouette is prominent in size. Musculoskeletal: No acute osseous pathology. Other findings: None Lines/Tubes: Right internal jugular central venous catheter with distal tip at the cavoatrial junction. IMPRESSION: Airspace opacities projecting the spine on lateral view, correlate for pneumonia.
[2023-08-19 20:18] LABS: Basophils % (A) 1 %; Eosinophils # (A) 0.3 k/uL (0-0.7); Eosinophils % (A) 3 %; HCT 32.7 % (34.0-46.0); HGB 10.8 gm/dL (11.4-16.0); Lymphocytes # (A) 1.5 k/uL (1.0-4.8); Lymphocytes % (A) 16 %; MCH 29.3 pg (25.0-35.0); MCHC 32.9 g/dL (31.0-37.0); MCV 89.1 fL (80.0-100.0); Mean Platelet Volume 7.5; Monocytes # (A) 0.4 k/uL (0-1.0); Monocytes % (A) 5 %; Neutrophils % (A) 75 %; Platelet Count 275 k/uL (150-450); RBC 3.67 m/uL (3.80-5.40); WBC 9.4 k/uL (3.8-10.6)
[2023-08-19 20:30] LABS: African American GFR (CKD) >90 (>60 ml/min/1.73 sqM); Anion Gap 4 mmol/L; Blood Urea Nitrogen 12 mg/dL (7-17); Calcium 9.1 mg/dL (8.4-10.2); Carbon Dioxide 28 mmol/L (22-30); Chloride 109 mmol/L (98-107); Glucose 103 mg/dL (74-99); Non-African American GFR(CKD) 89 (>60 ml/min/1.73 sqM); Potassium 3.5 mmol/L (3.5-5.1); Sodium 141 mmol/L (137-145)
[2023-08-19 20:38] LABS: NT-Pro-B-Type Natriuretic Pept 504 pg/mL
[2023-08-19] MEDS ORDERED: oxyCODONE-APAP 7.5-325MG 1 EACH TAB PO STA (21:26)
[2023-08-19 23:12] VITALS: BP 168/70; PULSE 98; RESP 20; TEMP 98
== END 2023-08-19 22:53 | disposition home or self-care (01) ==
LOC: EC 17:48
DX: R06.00 Dyspnea, unspecified (principal); E66.01 Morbid (severe) obesity due to excess calories; I25.2 Old myocardial infarction; I48.91 Unspecified atrial fibrillation; I50.9 Heart failure, unspecified; J44.9 Chronic obstructive pulmonary disease, unspecified; M19.90 Unspecified osteoarthritis, unspecified site; F41.9 Anxiety disorder, unspecified; F32.A Depression, unspecified; Z79.01 Long term (current) use of anticoagulants; Z79.899 Other long term (current) drug therapy; Z88.5 Allergy status to narcotic agent; Z88.6 Allergy status to analgesic agent; Z88.8 Allergy status to other drugs, medicaments and biological substances; Z90.49 Acquired absence of other specified parts of digestive tract; Z68.45 Body mass index [BMI] 70 or greater, adult
CPT/HCPCS: 36415; 71046; 80048; 83880; 84484; 85025; 93005; 99285

== ENCOUNTER 2023-09-07 19:50 | Emergency (ER) | payer MEDICARE, OTHER ==
[2023-09-07 20:49] VITALS: BP 138/73; PULSE 85; RESP 20; TEMP 98.4
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
--- NOTE | 2023-09-07 21:16 | XR ---
EXAMINATION TYPE: XR chest 2V DATE OF EXAM: 09/07/2023 9:07 PM CLINICAL INDICATION:Female, 73 years old with history of difficulty breathing; COMPARISON: Chest radiographs from 08/19/2023 TECHNIQUE: XR chest 2V Frontal and lateral views of the chest. FINDINGS: Lungs/Pleura: Airspace opacities project over the spine which are slightly improved compared to 2023. There is no evidence of pleural effusion, focal consolidation, or pneumothorax. Pulmonary vascularity: Unremarkable. Heart/mediastinum: Cardiomediastinal silhouette is unremarkable. Musculoskeletal: No acute osseous pathology. IMPRESSION: Persistent lower lobe airspace opacities throughout the spine which have improved from prior.
[2023-09-07] MEDS: Acetaminophen-Codeine 300-30mg TAB PO STA (22:23)
[2023-09-07 23:42] LABS: Basophils % (A) 0 %; Eosinophils # (A) 0.4 k/uL (0-0.7); Eosinophils % (A) 4 %; HCT 32.4 % (34.0-46.0); HGB 10.6 gm/dL (11.4-16.0); Lymphocytes # (A) 1.3 k/uL (1.0-4.8); Lymphocytes % (A) 16 %; MCH 28.2 pg (25.0-35.0); MCHC 32.7 g/dL (31.0-37.0); MCV 86.3 fL (80.0-100.0); Mean Platelet Volume 7.1; Monocytes # (A) 0.3 k/uL (0-1.0); Monocytes % (A) 4 %; Neutrophils # (A) 6.1 k/uL (1.3-7.7); Neutrophils % (A) 74 %; Platelet Count 258 k/uL (150-450); RBC 3.75 m/uL (3.80-5.40); RDW 13.2 % (11.5-15.5); WBC 8.3 k/uL (3.8-10.6)
[2023-09-07 23:51] LABS: ALT 13 U/L (4-34); AST 23 U/L (14-36); African American GFR (CKD) >90 (>60 ml/min/1.73 sqM); Albumin 3.4 g/dL (3.5-5.0); Alkaline Phosphatase 84 U/L (38-126); Anion Gap 6 mmol/L; Blood Urea Nitrogen 13 mg/dL (7-17); Calcium 8.8 mg/dL (8.4-10.2); Carbon Dioxide 28 mmol/L (22-30); Chloride 105 mmol/L (98-107); Glucose 142 mg/dL (74-99); INR 0.9 (<1.2); Magnesium 1.4 mg/dL (1.6-2.3); Non-African American GFR(CKD) >90 (>60 ml/min/1.73 sqM); Partial Thromboplastin Time 23.9 sec (22.0-30.0); Potassium 3.6 mmol/L (3.5-5.1); Prothrombin Time 10.4 sec (10.0-12.5); Sodium 139 mmol/L (137-145); Total Bilirubin 0.3 mg/dL (0.2-1.3); Total Protein 5.9 g/dL (6.3-8.2)
[2023-09-07 23:59] LABS: NT-Pro-B-Type Natriuretic Pept 283 pg/mL
[2023-09-08] MEDS: oxyCODONE-APAP 10-325MG 1 EACH TAB PO STA
[2023-09-08] MEDS: MAGNESIUM SULFATE-D5W PMX 1 GM in DEXTROSE/WATER 1 100ML.BAG IVPB ONE (00:28)
== END 2023-09-08 01:48 | disposition home or self-care (01) ==
LOC: EC 19:50
DX: R60.0 Localized edema (principal); I48.91 Unspecified atrial fibrillation; J44.9 Chronic obstructive pulmonary disease, unspecified; I50.9 Heart failure, unspecified; I25.2 Old myocardial infarction; E66.01 Morbid (severe) obesity due to excess calories; Z79.899 Other long term (current) drug therapy; Z79.01 Long term (current) use of anticoagulants; Z68.44 Body mass index [BMI] 60.0-69.9, adult; Z88.5 Allergy status to narcotic agent; Z88.8 Allergy status to other drugs, medicaments and biological substances
CPT/HCPCS: 36415; 93005; 83880; 80053; 83605; 83735; 84484; 85025; 85610; 85730; 71046; 99285; 96365; J3475

== ENCOUNTER 2023-09-19 21:57 | Emergency (ER) | payer MEDICARE, OTHER ==
[2023-09-19 22:29] VITALS: RESP 20; TEMP 97.6
[2023-09-19] MEDS: ACETAMINOPHEN TAB 500 MG TAB PO STA (22:57)
[2023-09-19 22:58] VITALS: BP 163/79; PULSE 95
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
== END 2023-09-20 00:55 | disposition home or self-care (01) ==
LOC: EC 21:57
DX: G89.29 Other chronic pain (principal); M54.50 Low back pain, unspecified; I25.2 Old myocardial infarction; I50.9 Heart failure, unspecified; J44.9 Chronic obstructive pulmonary disease, unspecified; E66.01 Morbid (severe) obesity due to excess calories; I48.91 Unspecified atrial fibrillation; Z79.01 Long term (current) use of anticoagulants; Z79.899 Other long term (current) drug therapy; Z68.44 Body mass index [BMI] 60.0-69.9, adult; Z88.5 Allergy status to narcotic agent; Z88.6 Allergy status to analgesic agent; Z88.8 Allergy status to other drugs, medicaments and biological substances; Z90.49 Acquired absence of other specified parts of digestive tract; Z86.711 Personal history of pulmonary embolism; Z86.73 Personal history of transient ischemic attack (TIA), and cerebral infarction without residual deficits
CPT/HCPCS: 99284

== ENCOUNTER 2023-11-04 13:47 | Emergency (ER) | payer MEDICARE, OTHER ==
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
[2023-11-04 14:32] VITALS: RESP 18; TEMP 98.2
[2023-11-04 17:04] VITALS: BP 108/88; PULSE 84
== END 2023-11-04 17:40 | disposition home or self-care (01) ==
LOC: EC 13:47
DX: G89.29 Other chronic pain (principal); M25.512 Pain in left shoulder; Z88.5 Allergy status to narcotic agent; Z88.6 Allergy status to analgesic agent; Z88.8 Allergy status to other drugs, medicaments and biological substances; Z90.49 Acquired absence of other specified parts of digestive tract; Z86.73 Personal history of transient ischemic attack (TIA), and cerebral infarction without residual deficits
CPT/HCPCS: 99283

== ENCOUNTER 2024-07-28 12:05 | Inpatient (IN) | payer MEDICARE, OTHER ==
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
[2024-07-28 13:50] LABS: Basophils % (A) 0 %; Eosinophils # (A) 0.3 k/uL (0-0.7); Eosinophils % (A) 4 %; HCT 35.2 % (34.0-46.0); HGB 11.2 gm/dL (11.4-16.0); Hypochromasia Slight; Lymphocytes # (A) 1.3 k/uL (1.0-4.8); Lymphocytes % (A) 16 %; MCH 27.6 pg (25.0-35.0); MCHC 31.8 g/dL (31.0-37.0); MCV 86.7 fL (80.0-100.0); Mean Platelet Volume 6.7; Monocytes # (A) 0.3 k/uL (0-1.0); Monocytes % (A) 4 %; Neutrophils # (A) 5.9 k/uL (1.3-7.7); Neutrophils % (A) 74 %; Platelet Count 319 k/uL (150-450); RBC 4.06 m/uL (3.80-5.40); WBC 7.9 k/uL (3.8-10.6)
--- NOTE | 2024-07-28 14:03 | XR ---
EXAMINATION TYPE: XR chest 2V DATE OF EXAM: 07/28/2024 1:28 PM COMPARISON: 09/07/2023 CLINICAL INDICATION: Female, 74 years old with shortness of breath, history of difficulty breathing, , TECHNIQUE: AP and lateral views FINDINGS: There are frontal view in particular is markedly limited due to large body habitus and overlying pann iculus. The mid and lower lungs are underpenetrated and not adequately assessed. Visualized upper jenifer gs appear clear. Heart appears borderline in size. On the lateral view, there is a large opacity post eriorly and inferiorly. IMPRESSION: Large posterior inferior opacity on the lateral view. Correlate for any symptoms of pneumonia. Follow -up after treatment to ensure clearance and exclude underlying neoplasm. [facility], , 07/28/2024 2:00 PM
[2024-07-28 14:20] LABS: ALT 11 U/L (4-34); AST 16 U/L (14-36); African American GFR (CKD) >90 (>60 ml/min/1.73 sqM); Albumin 3.7 g/dL (3.5-5.0); Alkaline Phosphatase 104 U/L (38-126); Anion Gap 5 mmol/L; Blood Urea Nitrogen 9 mg/dL (7-17); Calcium 9.1 mg/dL (8.4-10.2); Carbon Dioxide 32 mmol/L (22-30); Chloride 105 mmol/L (98-107); Glucose 116 mg/dL (74-99); Non-African American GFR(CKD) 83 (>60 ml/min/1.73 sqM); Potassium 3.8 mmol/L (3.5-5.1); Sodium 142 mmol/L (137-145); Total Bilirubin 0.3 mg/dL (0.2-1.3)
[2024-07-28 14:28] LABS: NT-Pro-B-Type Natriuretic Pept 604 pg/mL
[2024-07-28 14:37] LABS: INR 0.9 (<1.2); Prothrombin Time 10.2 sec (10.0-12.5)
[2024-07-28 14:41] LABS: Partial Thromboplastin Time 18.5 sec (22.0-30.0)
[2024-07-28] MEDS ORDERED: NALOXONE 0.4 MG/ML 1 ML VIAL IV PRN (14:55)
[2024-07-28] MEDS: MORPHINE SULFATE 2 MG/ML SYRINGE IVP ONE (14:59)
[2024-07-28] MEDS: ONDANSETRON 4 MG/2 ML VIAL IVP STA (14:59)
[2024-07-28] MEDS ORDERED: PNEUMONIA PROTOCOL UTILIZED 1 EACH MISC PO PRN (15:00)
[2024-07-28] MEDS: oxyCODONE-APAP 10-325MG 1 EACH TAB PO STA (15:02)
[2024-07-28] MEDS: IPRATROPIUM-ALBUTEROL 3 ML NEB INHALATION SCH (16:14)
[2024-07-28] MEDS: AZITHROMYCIN 500 MG in SODIUM CHLORIDE 0.9% 250 ML IVPB STA (17:51)
[2024-07-28] MEDS: HYDROmorphone 0.5 MG/0.5 ML SYRINGE IVP PRN (20:21)
[2024-07-28] MEDS: HYDROmorphone 0.5 MG/0.5 ML SYRINGE IVP STA (21:57)
[2024-07-28] MEDS: ONDANSETRON 4 MG/2 ML VIAL IVP PRN (21:58)
[2024-07-28] MEDS: CARBIDOPA-LEVODOPA 10-100 MG 1 EACH TAB PO SCH (22:03)
[2024-07-29] MEDS: HYDROmorphone 1 MG/ML 1 ML SYRINGE IVP PRN ×2 (01:57→11:44)
[2024-07-29] MEDS: PANTOPRAZOLE 40 MG TABLET PO SCH (06:05)
[2024-07-29] MEDS: SYMBICORT 160-4.5 MCG INHALER INHALATION SCH (07:47)
[2024-07-29] MEDS: ESCITALOPRAM 10 MG TAB PO SCH (09:47)
[2024-07-29] MEDS: ALPRAZolam 0.5 MG TAB PO SCH (09:47)
[2024-07-29] MEDS: LOSARTAN 25 MG TAB PO SCH (09:47)
[2024-07-29] MEDS: AZITHROMYCIN 500 MG TAB PO SCH (09:47)
[2024-07-29] MEDS: FERROUS SULFATE 325 MG TAB PO SCH (09:47)
[2024-07-29] MEDS: FUROSEMIDE 20 MG TAB PO SCH (09:47)
[2024-07-29] MEDS: FOLIC ACID 1 MG TAB PO SCH (09:47)
[2024-07-29 10:57] LABS: ALT 9 U/L (8-44); AST 14 U/L (13-35); Albumin 3.3 g/dL (3.8-4.9); Albumin/Globulin Ratio 1.65 Ratio (1.60-3.17); Alkaline Phosphatase 98 U/L (41-126); Calcium 8.6 mg/dL (8.7-10.3); Carbon Dioxide 26.2 mmol/L (21.6-31.8); Chloride 106 mmol/L (96-109); Glucose 96 mg/dL (70-110); Potassium 3.8 mmol/L (3.5-5.5); Sodium 143 mmol/L (135-145); Total Bilirubin <0.2 mg/dL (0.3-1.2); Total Protein 5.3 g/dL (6.2-8.2)
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
[2024-07-29] MEDS: ONDANSETRON 4 MG/2 ML VIAL IVP PRN (11:43)
--- NOTE | 2024-07-29 11:43 | XR ---
EXAMINATION TYPE: XR chest 2V DATE OF EXAM: 07/29/2024 9:13 AM COMPARISON: 07/28/2027 CLINICAL INDICATION: Female, 74 years old with history of pneumonia, , TECHNIQUE: AP and lateral views FINDINGS: The heart is upper limits of normal in size. Similar tortuous/ectatic thoracic aorta. Hazy densities relating to overlying soft tissue. There is improving posterior basilar opacity on the lateral view. No pleural effusion. Mild interstitial density may remain. Suspect chronic full-thickness rotator cuf f tear is both shoulders. IMPRESSION: 1. Mild interstitial prominence could reflect bronchitis or mild pulmonary vascular congestion. 2. Improving aeration posterior lung base on the lateral view. [facility], , 07/29/2024 11:41 AM
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
--- NOTE | 2024-07-30 09:33 | P.PN ---
Subjective Progress Note Date: 07/30/24 Principal diagnosis: Left lower lobe pneumonia Acute exacerbation of COPD Chronic persistent asthma Seizure disorder Disorder depression Chronic anemia Congestive heart failure with acute exacerbation likely related to pneumonia Morbid obesity Hypoxic respiratory failure Obesity hypoventilation syndrome Sleep disordered breathing and sleep apnea July 30, 2024, patient seen eval examined during rounds pain service has evaluated the patient and set up a plan for pain management. However patient continued to ask for IV pain medicine twice patient is afebrile with stable hemodynamics oxygen saturation 99% on 4 L nasal cannula blood cultures no growth, patient remains on bronchodilator as well as medicine for Parkinson's disease with IV Rocephin Dilaudid for pain control and home medicine Patient is a 74-year-old morbidly obese female, patient came into the hospital for increasing shortness of breath also increasing edema, patient is bedbound wheelchair-bound uses 2 L nasal cannula has a component of obesity hypoventilation sleep disordered breathing and sleep apnea, refused CPAP machine and evaluation for sleep apnea, chronic atrial fibrillation on direct acting oral anticoagulant and rate control, patient felt that she is still low please swelling up with increasing weight gain and lower extremity edema with increasing shortness of breath, she increased her using of nebulizer as well with those problem came into the hospital she also has generalized aches and pains worse than before and oral meds and not helping she r requested IV medicine, labs are significant for white cell count 7.48 hemoglobin hematocrit is 11/35 platelet count of 310 coags okay, sodium 142 potassium 3.8 BUN/creatinine 9/0.71 lactic acid is 1.5 glucose 116 BNP 604. Patient also has cough congestion and wet cough but unable to produce any sputum she had also have wheezing as well chest x-ray suggestive of possible pneumonia in retrocardiac area Objective - Vital Signs Vital signs: Vital Signs Temp 98.3 F 07/30/24 07:21 Pulse 90 07/30/24 07:21 Resp 17 07/30/24 07:21 BP 135/77 07/30/24 07:21 Pulse Ox 99 07/30/24 07:21 FiO2 Intake & Output 07/29/24 07/30/24 07/30/24 18:59 06:59 18:59 Intake Total 340 Balance 340 Intake: Oral 340 Other: Voiding Method External Catheter External Catheter # Voids 2 1 # Bowel Movements 1 - Exam Constitutional General appearance: disheveled, morbidly obese - EENT Eyes: EOMI, PERRLA, normal appearance Ears: bilateral: normal - Neck Neck: normal ROM Carotids: bilateral: upstroke normal - Respiratory Respiratory: bilateral: diminished - Cardiovascular Rhythm: regular Heart sounds: normal: S1, S2 - Gastrointestinal General gastrointestinal: decreased bowel sounds, soft - Neurologic Neurologic: CNII-XII intact - Musculoskeletal Musculoskeletal: gait normal, generalized weakness, strength equal bilaterally - Labs CBC & Chem 7: 07/28/24 13:42 07/29/24 07:10 Labs: Abnormal Lab Results - Last 24 Hours (Table) 07/29/24 Range/Units 07:10 BUN 7.0 L (9.0-27.0) mg/dL BUN/Creatinine Ratio 10.00 L (12.00-20.00) Ratio Calcium 8.6 L (8.7-10.3) mg/dL Total Bilirubin <0.2 L (0.3-1.2) mg/dL Total Protein 5.3 L (6.2-8.2) g/dL Albumin 3.3 L (3.8-4.9) g/dL Microbiology - Last 24 Hours (Table) 07/28/24 15:00 Blood Culture - Preliminary Blood 07/28/24 15:17 Blood Culture - Preliminary Blood Assessment and Plan Assessment: Left lower lobe pneumonia Acute exacerbation of COPD Chronic persistent asthma Chronic pain syndrome Seizure disorder Disorder depression Chronic anemia Congestive heart failure with acute exacerbation likely related to pneumonia Morbid obesity Hypoxic respiratory failure Obesity hypoventilation syndrome Sleep disordered breathing and sleep apnea Plan: Supplemental oxygen Bronchodilators IV steroids Broad-spectrum antibiotics Gentle diuresis Continue antihypertensive agent Continue antidepressant as well as antianxiety medicine Pain meds and management as per pain service Continue Protonix for GERD Time with Patient: Greater than 30
[2024-07-30] MEDS: FUROSEMIDE 10 MG/ML 4 ML VIAL IV SCH (10:35)
[2024-07-30] MEDS: METOCLOPRAMIDE 5 MG/ML 2 ML VIAL IVP PRN (12:33)
[2024-07-31] MEDS: oxyCODONE-APAP 10-325MG 1 EACH TAB PO SCH (06:51)
--- NOTE | 2024-07-31 12:20 | P.PN ---
Subjective Progress Note Date: 07/31/24 Principal diagnosis: Left lower lobe pneumonia Acute exacerbation of COPD Chronic persistent asthma Seizure disorder Disorder depression Chronic anemia Congestive heart failure with acute exacerbation likely related to pneumonia Morbid obesity Hypoxic respiratory failure Obesity hypoventilation syndrome Sleep disordered breathing and sleep apnea July 31, 2024, patient seen eval examined nausea is improved, patient willing to take diet regular as well as oral pain medicine and symptoms nausea and pain improved with current intervention, discussed with patient she is concerned about mass, likely retroperitoneal opacity related pneumonia and hiatal hernia, will check acute CT scan of the chest without contrast July 30, 2024, patient seen eval examined during rounds pain service has evaluated the patient and set up a plan for pain management. However patient continued to ask for IV pain medicine twice patient is afebrile with stable hemodynamics oxygen saturation 99% on 4 L nasal cannula blood cultures no growth, patient remains on bronchodilator as well as medicine for Parkinson's disease with IV Rocephin Dilaudid for pain control and home medicine Patient is a 74-year-old morbidly obese female, patient came into the hospital for increasing shortness of breath also increasing edema, patient is bedbound wheelchair-bound uses 2 L nasal cannula has a component of obesity hypoventilation sleep disordered breathing and sleep apnea, refused CPAP machine and evaluation for sleep apnea, chronic atrial fibrillation on direct acting oral anticoagulant and rate control, patient felt that she is still low please swelling up with increasing weight gain and lower extremity edema with increasing shortness of breath, she increased her using of nebulizer as well with those problem came into the hospital she also has generalized aches and pains worse than before and oral meds and not helping she r requested IV medicine, labs are significant for white cell count 7.48 hemoglobin hematocrit is 11/35 platelet count of 310 coags okay, sodium 142 potassium 3.8 BUN/creatinine 9/0.71 lactic acid is 1.5 glucose 116 BNP 604. Patient also has cough congestion and wet cough but unable to produce any sputum she had also have wheezing as well chest x-ray suggestive of possible pneumonia in retrocardiac area Objective - Vital Signs Vital signs: Vital Signs Temp 98.6 F 07/31/24 07:01 Pulse 84 07/31/24 09:06 Resp 17 07/31/24 08:45 BP 106/66 07/31/24 07:01 Pulse Ox 96 07/31/24 07:01 FiO2 Intake & Output 07/30/24 07/31/24 07/31/24 18:59 06:59 18:59 Output Total 1500 1450 Balance -1500 -1450 Output: Urine 1500 1450 Other: Voiding Method External Catheter External Catheter External Catheter # Bowel Movements 2 - Exam Constitutional General appearance: disheveled, morbidly obese - EENT Eyes: EOMI, PERRLA, normal appearance Ears: bilateral: normal - Neck Neck: normal ROM Carotids: bilateral: upstroke normal - Respiratory Respiratory: bilateral: diminished - Cardiovascular Rhythm: regular Heart sounds: normal: S1, S2 - Gastrointestinal General gastrointestinal: decreased bowel sounds, soft - Neurologic Neurologic: CNII-XII intact - Musculoskeletal Musculoskeletal: gait normal, generalized weakness, strength equal bilaterally - Labs CBC & Chem 7: 07/28/24 13:42 07/29/24 07:10 Labs: Microbiology - Last 24 Hours (Table) 07/28/24 15:00 Blood Culture - Preliminary Blood 07/28/24 15:17 Blood Culture - Preliminary Blood Assessment and Plan Assessment: Retrocardiac opacity, due to left lower lobe pneumonia and hiatal hernia Acute exacerbation of COPD Chronic persistent asthma Chronic pain syndrome Seizure disorder Disorder depression Chronic anemia Congestive heart failure with acute exacerbation likely related to pneumonia Morbid obesity Hypoxic respiratory failure Obesity hypoventilation syndrome Sleep disordered breathing and sleep apnea Plan: CT scan of the chest without contrast Supplemental oxygen Bronchodilators IV steroids, can be tapered to p.o. prednisone taper and DC as tolerated Broad-spectrum antibiotics Gentle diuresis Continue antihypertensive agent Continue antidepressant as well as antianxiety medicine Pain meds and management as per pain service Continue Protonix for GERD Time with Patient: Greater than 30
--- NOTE | 2024-08-01 15:11 | CT ---
EXAMINATION TYPE: CT chest wo con DATE OF EXAM: 08/01/2024 9:22 AM COMPARISON: None. CLINICAL INDICATION: Female, 74 years old with history of retro cardiac mass, JAMESON/CARDAIC MASS TECHNIQUE: Axial images were obtained at 5 mm thick sections. Reconstructed images are reviewed on [employer] computer in the coronal plane. Contrast used: mL of , (none if empty) Oral contrast used: (none if empty) CT DLP: 1264.5 mGycm, Automated exposure control for dose reduction was used. FINDINGS: Portion of the thyroid visualized is normal. No suspicious lung nodules or focal infiltrates are present. No enlarged mediastinal or hilar adenopathy is evident. The ascending aorta diameter at the level o f the main pulmonary artery is 3.5 cm. The main pulmonary artery diameter at the bifurcation is 3.4 cm. Coronary artery calcifications present. Limited CT sections are obtained through the upper abdomen. Abdomen is essentially unremarkable. IMPRESSION: 1. No masses within the retrocardiac region identified. [facility], , 08/01/2024 3:08 PM
--- NOTE | 2024-08-01 15:20 | CDI ---
Documentation Clarification Form Date: 08/01/2024 02:55:10 PM From: Neelam Wall RN CCDS Phone: [phone] Admit Date: 07/28/2024 03:12:00 PM Patient Name: Renée Krishnan Visit Number: [id number] Discharge Date: ATTENTION: The Clinical Documentation Specialists (CDI) and [facility] Coding Staff appreciate your assistance in clarifying documentation. Please respond to the clarification below the line at the bottom and electronically sign. The CDI & [facility] Coding staff will review the response and follow-up if needed. Please note: Queries are made part of the Legal Health Record. If you have any questions, please contact the author of this message via ITS. Doctor: Peter Howard Your patient has the documented diagnosis of unspecified CHF 07/29, . Additional information regarding the type of CHF is requested. History/Risk Factors: Clinical Indicators: VS/Pulse OX, 07/28: B/P 152/89; HR 93; Temp 98.0F Oral; RR 20; SpO2 98% 3L nc BNP 07/28: 604 Echocardiogram Results: 06/04: 50-55% Normal LV systolic function. Technically suboptimal study CXR 07/28: Large posterior inferior opaictiy on the lateral view. Correlate for any symptoms of pneumonia. CXR 07/29: Mild interstitial prominence could reflect bronchitis or mild pulmonary vascular congestion. Improving aeration posterior lung base on the lateral view. Treatment: 07/29 07/30 Lasix 20mg PO BID, 07/30 Lasix 40mg IV Q12H In your professional opinion, can you please clarify the and type of CHF if known? [ ] Acute Diastolic Heart Failure (preserved EF) [ ] Acute on Chronic Diastolic Heart Failure (preserved EF) [ ] Other, please specify [ ] Unable to determine Documented in medicine progress note 08/03/2024 Dr. Mckeon Acute on chronic diastolic heart failure (Template Last Revised: September 2020) MTDD
--- NOTE | 2024-08-02 04:20 | PN ---
PROGRESS NOTE CAT scan of the chest is pending per Dr. Howard. Pain Management saw her with Dr. Lilly Leyva for chronic pain. She is admitted with acute exacerbation of COPD, left lower lobe pneumonia, chronic persistent asthma, seizure disorder, depression, anemia, CHF secondary to pneumonia, morbid obesity, hypoxemic respiratory failure, obesity hypoventilation syndrome and sleep apnea. She is bed bound, wheelchair bound, using 2 L of nasal cannula. She refused the CPAP machine and evaluation for sleep apnea. Chronic AFib, oral anticoagulants for rate control. White count 7.48, hemoglobin is 11. Sodium 142, potassium 3.8, lactic acid was 1.5. BNP 604. OBJECTIVE: VITAL SIGNS: Temperature 98.6, pulse is 84, respiratory rate 18, blood pressure 106/66, O2 96. CARDIOVASCULAR: S1 and S2. LUNGS: Diminished x4. GI: Soft. NEUROLOGIC: Cranial nerves intact. PSYCH: Fair mood and affect. Neck is supple. No mass. HEENT: Normocephalic, atraumatic. Hemoglobin is 11.2, white blood cell count 7.9. Sodium 143, potassium 3.8. CAT scan of the chest that was ordered by Dr. Howard is pending. IV steroids tapered to prednisone. Broad-spectrum antibiotics. Diuresis. Antihypertensive medicines. Try to talk to her and get a CPAP machine outpatient. CHF, COPD, retrocardiac opacity due to left lower lobe pneumonia, hiatal hernia, CAT scan to make sure that is what it is; acute exacerbation of COPD, asthma, chronic pain syndrome, seizure disorder, depression, chronic anemia, CHF, obesity, hypoxemic respiratory failure, seizure disorder, sleep apnea. Continue current treatment. PROGNOSIS: Guarded. Ambulate as tolerated, IV antibiotics and steroids as mentioned. We will wait for CT report. MMODL / IJN: [id number] /
[2024-08-02 09:01] LABS: ALT 8 U/L (8-44); AST 18 U/L (13-35); Albumin 3.1 g/dL (3.8-4.9); Albumin/Globulin Ratio 1.55 Ratio (1.60-3.17); Alkaline Phosphatase 95 U/L (41-126); BUN/Creat Ratio 8.44 Ratio (12.00-20.00); Blood Urea Nitrogen 15.2 mg/dL (9.0-27.0); Calcium 8.4 mg/dL (8.7-10.3); Carbon Dioxide 34.7 mmol/L (21.6-31.8); Chloride 98 mmol/L (96-109); Glucose 107 mg/dL (70-110); Potassium 4.5 mmol/L (3.5-5.5); Sodium 141 mmol/L (135-145); Total Bilirubin <0.2 mg/dL (0.3-1.2); Total Protein 5.1 g/dL (6.2-8.2)
[2024-08-02 09:04] LABS: Basophils # (A) 0.04 X 10*3/uL (0.00-0.10); Basophils % (A) 0.6 %; Eosinophils # (A) 0.24 X 10*3/uL (0.04-0.35); Eosinophils % (A) 3.5 %; HCT 32.5 % (37.2-46.3); HGB 9.8 g/dL (12.0-15.0); Lymphocytes # (A) 1.23 X 10*3/uL (0.90-5.00); Lymphocytes % (A) 18.1 %; MCH 27.1 pg (27.0-32.0); MCHC 30.2 g/dL (32.0-37.0); MCV 89.8 FL (80.0-97.0); Mean Platelet Volume 9.8 FL (9.5-12.2); Monocytes # (A) 0.56 X 10*3/uL (0.20-1.00); Monocytes % (A) 8.2 %; NRBC Per 100 WBC 0 X 10*3/uL (0.00-0.01); Neutrophils # (A) 4.72 X 10*3/uL (1.80-7.70); Neutrophils % (A) 69.3 %; Platelet Count 247 X 10*3/uL (140-440); RBC 3.62 X 10*6/uL (4.10-5.20); RDW 14.7 % (11.5-14.5); WBC 6.81 X 10*3/uL (4.50-10.00)
[2024-08-03 10:20] LABS: ALT 12 U/L (4-34); AST 17 U/L (14-36); African American GFR (CKD) 48 (>60 ml/min/1.73 sqM); Albumin/Globulin Ratio 1.3; Alkaline Phosphatase 82 U/L (38-126); Anion Gap 3 mmol/L; Blood Urea Nitrogen 24 mg/dL (7-17); Calcium 8.7 mg/dL (8.4-10.2); Carbon Dioxide 38 mmol/L (22-30); Chloride 96 mmol/L (98-107); Globulin 2.3 g/dL; Glucose 124 mg/dL (74-99); Non-African American GFR(CKD) 42 (>60 ml/min/1.73 sqM); Potassium 4.4 mmol/L (3.5-5.1); Sodium 137 mmol/L (137-145); Total Bilirubin 0.2 mg/dL (0.2-1.3); Total Protein 5.3 g/dL (6.3-8.2)
[2024-08-03 10:23] LABS: Basophils % (A) 0 %; Eosinophils # (A) 0.2 k/uL (0-0.7); Eosinophils % (A) 3 %; HCT 31.6 % (34.0-46.0); HGB 10.1 gm/dL (11.4-16.0); Lymphocytes # (A) 1.2 k/uL (1.0-4.8); Lymphocytes % (A) 16 %; MCH 28.1 pg (25.0-35.0); MCHC 32.1 g/dL (31.0-37.0); MCV 87.7 fL (80.0-100.0); Mean Platelet Volume 8.7; Monocytes # (A) 0.5 k/uL (0-1.0); Monocytes % (A) 6 %; Neutrophils # (A) 5.7 k/uL (1.3-7.7); Neutrophils % (A) 74 %; Platelet Count 197 k/uL (150-450); RDW 14.8 % (11.5-15.5); WBC 7.8 k/uL (3.8-10.6)
[2024-08-03] MEDS: MIDODRINE 5 MG TAB PO SCH (11:16)
--- NOTE | 2024-08-03 22:32 | PN ---
PROGRESS NOTE DATE OF SERVICE: 08/02/2024 SUBJECTIVE: The patient still does not feel well. She is on IV Lasix. Her creatinine is going up. We are going to monitor her renal function. Maybe cut down on her Lasix. Possibly go home in a day or 2. OBJECTIVE: LUNGS: Scattered rhonchi and wheeze. CARDIOVASCULAR: S1 and S2. ENDOCRINE: BMI is over 40. PSYCH: Poor mood and affect. ASSESSMENT: Acute diastolic CHF, acute on chronic renal insufficiency, acute kidney injury, secondary to over-diuresis, depression, morbid obesity, sleep apnea, asthma, COPD, acute on chronic diastolic heart failure. Continue with IV Lasix. Monitor her weight gain. Possibly go home in the next 24 to 48 hours. Watch her creatinine levels. MMODL / IJN: [id number] /
[2024-08-04 14:18] VITALS: BMI 62.4
[2024-08-04] MEDS ORDERED: ZINC OXIDE PASTE (Z-GUARD) 1 APPLIC TOPICAL PRN (18:53)
--- NOTE | 2024-08-05 00:41 | PN ---
PROGRESS NOTE SUBJECTIVE: A 74-year-old white female with acute on chronic CHF. Her breathing is fairly good. She is upset with the care here . OBJECTIVE: CARDIOVASCULAR: S1 and S2. LUNGS: Transmitted upper sounds. Lungs are mostly clear. GI: Soft. HEMATOLOGY: Negative Homans. PSYCH: Fair mood and affect. ASSESSMENT: Acute on chronic CHF diastolic, morbid obesity, COPD, asthma, folic acid deficiency, pulmonary hypertension, TMJ, cervical lumbar disk disease. PLAN: Prognosis is guarded. Possible discharge home tomorrow as she is appeared to be stable and she has no ride to go home today. MMODL / IJN: [id number] /
[2024-08-05] MEDS: FUROSEMIDE 40 MG TAB PO SCH (08:37)
[2024-08-05 13:14] VITALS: BP 108/64; PULSE 71; RESP 15; TEMP 97.8
== END 2024-08-05 17:27 | disposition home or self-care (01) | DRG 291 ==
LOC: EEVIPCON 12:05 → EC 12:05 → 4SSUR 15:12
PROVIDERS: ADMIT Internal Medicine Sleep Medicine; ATTEND Internal Medicine Sleep Medicine
DX: I50.33 Acute on chronic diastolic (congestive) heart failure (principal); J18.9 Pneumonia, unspecified organism; J96.91 Respiratory failure, unspecified with hypoxia; E66.2 Morbid (severe) obesity with alveolar hypoventilation; N17.9 Acute kidney failure, unspecified; J45.901 Unspecified asthma with (acute) exacerbation; I48.20 Chronic atrial fibrillation, unspecified; J44.1 Chronic obstructive pulmonary disease with (acute) exacerbation; Z68.44 Body mass index [BMI] 60.0-69.9, adult; J44.0 Chronic obstructive pulmonary disease with (acute) lower respiratory infection; G40.909 Epilepsy, unspecified, not intractable, without status epilepticus; F32.A Depression, unspecified; G89.4 Chronic pain syndrome; M47.816 Spondylosis without myelopathy or radiculopathy, lumbar region; N18.9 Chronic kidney disease, unspecified; T50.2X5A Adverse effect of carbonic-anhydrase inhibitors, benzothiadiazides and other diuretics, initial encounter; X58.XXXA Exposure to other specified factors, initial encounter; Z74.1 Need for assistance with personal care; Z99.3 Dependence on wheelchair; I27.20 Pulmonary hypertension, unspecified; E53.8 Deficiency of other specified B group vitamins; D64.9 Anemia, unspecified; Z87.01 Personal history of pneumonia (recurrent); Z88.8 Allergy status to other drugs, medicaments and biological substances; K21.9 Gastro-esophageal reflux disease without esophagitis; I25.2 Old myocardial infarction; F41.9 Anxiety disorder, unspecified; K44.9 Diaphragmatic hernia without obstruction or gangrene; M13.0 Polyarthritis, unspecified; Z74.01 Bed confinement status; Z79.51 Long term (current) use of inhaled steroids; Z79.899 Other long term (current) drug therapy; Z82.49 Family history of ischemic heart disease and other diseases of the circulatory system; E03.9 Hypothyroidism, unspecified; K22.70 Barrett's esophagus without dysplasia; Z87.19 Personal history of other diseases of the digestive system; K58.9 Irritable bowel syndrome, unspecified; L30.9 Dermatitis, unspecified; M50.320 Other cervical disc degeneration, mid-cervical region, unspecified level; Z86.711 Personal history of pulmonary embolism; Z85.41 Personal history of malignant neoplasm of cervix uteri; Z90.710 Acquired absence of both cervix and uterus; Z96.653 Presence of artificial knee joint, bilateral; Z79.890 Hormone replacement therapy; Z86.14 Personal history of Methicillin resistant Staphylococcus aureus infection
CPT/HCPCS: 36415; 71046; 71250; 80053; 83605; 83880; 84145; 84484; 85025; 85610; 85730; 87040; 87449; 93005; 94640; 94760; 96365; 96375; 99285

== ENCOUNTER 2024-08-06 20:45 | Emergency (ER) | payer MEDICARE, OTHER ==
[2024-08-06 20:53] VITALS: TEMP 98.2
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
[2024-08-06] MEDS: droPERidol 5 MG/2 ML VIAL IM ONE (22:01)
[2024-08-06] MEDS: HYDROmorphone 1 MG/ML 1 ML SYRINGE IM STA (22:03)
--- NOTE | 2024-08-06 22:04 | XR ---
EXAMINATION TYPE: XR chest 1V portable DATE OF EXAM: 08/06/2024 9:57 PM COMPARISON: Multiple prior chest radiograph, most recently dated 07/29/2024. CLINICAL INDICATION: Female, 74 years old with history of cough; H TECHNIQUE: XR chest 1V portable Frontal view of the chest. FINDINGS: Indeterminate widening of the mediastinum, which could be in part positional related. Low lung volumes. Mild interstitial prominence bilaterally. No sizable pleural effusion. No pneumothorax. No acute osseous abnormality. IMPRESSION: 1. Possible widening of the mediastinum, which could be positional related. Recommend CTA chest for further violation if there is underlying clinical concern for aortic dissection. 2. Interstitial prominence bilaterally which could reflect mild pulmonary vascular congestion versus atypical infectious etiology. [facility], , 08/06/2024 10:01 PM
[2024-08-06 22:10] LABS: ALT 18 U/L (4-34); AST 58 U/L (14-36); African American GFR (CKD) >90 (>60 ml/min/1.73 sqM); Albumin 5.2 g/dL (3.5-5.0); Alkaline Phosphatase 74 U/L (38-126); Anion Gap 7 mmol/L; Blood Urea Nitrogen 20 mg/dL (7-17); Calcium 9.4 mg/dL (8.4-10.2); Carbon Dioxide 40 mmol/L (22-30); Chloride 92 mmol/L (98-107); Glucose 140 mg/dL (74-99); Magnesium 1.6 mg/dL (1.6-2.3); Non-African American GFR(CKD) 85 (>60 ml/min/1.73 sqM); Sodium 139 mmol/L (137-145); Total Bilirubin 2.5 mg/dL (0.2-1.3); Total Protein 9.1 g/dL (6.3-8.2)
[2024-08-06 22:20] LABS: Basophils % (A) 0 %; Eosinophils # (A) 0.1 k/uL (0-0.7); Eosinophils % (A) 1 %; HCT 40.6 % (34.0-46.0); HGB 12.8 gm/dL (11.4-16.0); Lymphocytes # (A) 0.5 k/uL (1.0-4.8); Lymphocytes % (A) 4 %; MCH 27.1 pg (25.0-35.0); MCHC 31.5 g/dL (31.0-37.0); MCV 86.2 fL (80.0-100.0); Mean Platelet Volume 8.2; Monocytes # (A) 0.4 k/uL (0-1.0); Monocytes % (A) 3 %; Neutrophils # (A) 11.5 k/uL (1.3-7.7); Neutrophils % (A) 91 %; Platelet Count 296 k/uL (150-450); RBC 4.71 m/uL (3.80-5.40); RDW 14.3 % (11.5-15.5); WBC 12.6 k/uL (3.8-10.6)
[2024-08-06 22:47] VITALS: BP 134/58; PULSE 89; RESP 15
== END 2024-08-06 23:13 | disposition home or self-care (01) ==
LOC: EC 20:45
DX: R11.2 Nausea with vomiting, unspecified (principal); Z88.5 Allergy status to narcotic agent; Z88.6 Allergy status to analgesic agent; Z88.8 Allergy status to other drugs, medicaments and biological substances
CPT/HCPCS: 36415; 80053; 83735; 85025; 71045; 99285; 96372; J1171; J1790

== ENCOUNTER 2024-08-19 10:33 | Emergency (ER) | payer MEDICARE, OTHER ==
[2024-08-19 10:40] VITALS: BP 142/80; PULSE 84; RESP 18; TEMP 97.9
[2024-08-19 12:14] LABS: ALT 8 U/L (4-34); AST 14 U/L (14-36); African American GFR (CKD) >90 (>60 ml/min/1.73 sqM); Alkaline Phosphatase 89 U/L (38-126); Anion Gap 6 mmol/L; Blood Urea Nitrogen 9 mg/dL (7-17); Calcium 8.6 mg/dL (8.4-10.2); Carbon Dioxide 31 mmol/L (22-30); Chloride 102 mmol/L (98-107); Glucose 110 mg/dL (74-99); Magnesium 1.4 mg/dL (1.6-2.3); Non-African American GFR(CKD) 86 (>60 ml/min/1.73 sqM); Potassium 3.3 mmol/L (3.5-5.1); Sodium 139 mmol/L (137-145); Total Bilirubin 0.2 mg/dL (0.2-1.3); Total Protein 5.2 g/dL (6.3-8.2)
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
[2024-08-19 12:24] LABS: INR 0.9 (<1.2); Partial Thromboplastin Time 22.1 sec (22.0-30.0); Prothrombin Time 10.4 sec (10.0-12.5)
[2024-08-19 12:28] LABS: Basophils % (A) 0 %; Eosinophils # (A) 0.3 k/uL (0-0.7); Eosinophils % (A) 3 %; HCT 34.1 % (34.0-46.0); HGB 11.2 gm/dL (11.4-16.0); Hypochromasia Slight; Lymphocytes % (A) 12 %; MCH 28.3 pg (25.0-35.0); MCHC 32.9 g/dL (31.0-37.0); MCV 86.2 fL (80.0-100.0); Mean Platelet Volume 6.5; Monocytes # (A) 0.3 k/uL (0-1.0); Monocytes % (A) 4 %; Neutrophils # (A) 6.8 k/uL (1.3-7.7); Neutrophils % (A) 80 %; Platelet Count 256 k/uL (150-450); RBC 3.96 m/uL (3.80-5.40); RDW 15.1 % (11.5-15.5); WBC 8.5 k/uL (3.8-10.6)
[2024-08-19] MEDS: POTASSIUM CHLORIDE ER 20 MEQ TAB.ER PO STA (13:29)
[2024-08-19] MEDS: ONDANSETRON 4 MG/2 ML VIAL IVP STA (13:31)
[2024-08-19] MEDS: HYDROmorphone 1 MG/ML 1 ML SYRINGE IVP STA (13:33)
== END 2024-08-19 15:19 | disposition home or self-care (01) ==
LOC: EC 10:33
DX: R53.1 Weakness (principal); R11.0 Nausea; Z88.5 Allergy status to narcotic agent; Z88.6 Allergy status to analgesic agent; Z88.8 Allergy status to other drugs, medicaments and biological substances
CPT/HCPCS: 36415; 93005; 80053; 83605; 83735; 85025; 85610; 85730; 99285; 96374; 96375; J2405; J1171

== ENCOUNTER 2024-08-20 01:27 | Emergency (ER) | payer MEDICARE, OTHER ==
[2024-08-20] MEDS: ONDANSETRON 4 MG/2 ML VIAL IM STA ×2 (01:59→04:27)
[2024-08-20] MEDS: MORPHINE SULFATE 4 MG/ML SYRINGE IM STA ×2 (01:59→04:24)
[2024-08-20] MEDS: METOCLOPRAMIDE 5 MG/ML 2 ML VIAL IVP STA (06:02)
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
[2024-08-20 11:41] VITALS: BP 140/55; PULSE 92; RESP 18; TEMP 98.4
== END 2024-08-20 11:30 | disposition home or self-care (01) ==
LOC: EC 01:27
DX: R11.2 Nausea with vomiting, unspecified (principal); Z88.5 Allergy status to narcotic agent; Z88.6 Allergy status to analgesic agent; Z88.8 Allergy status to other drugs, medicaments and biological substances
CPT/HCPCS: 99284; 96374; 96372; J2270; J2765; J2405

== ENCOUNTER 2024-08-21 15:22 | Emergency (ER) | payer MEDICARE, OTHER ==
[2024-08-21 15:35] VITALS: TEMP 98.6
[2024-08-21 17:09] VITALS: RESP 18
[2024-08-21] MEDS: HYDROmorphone 1 MG/ML 1 ML SYRINGE IM STA (17:09)
[2024-08-21] MEDS: HYDROmorphone 1 MG/ML 1 ML SYRINGE IVP STA (17:12)
--- NOTE | 2024-08-21 18:44 | CT ---
EXAMINATION TYPE: CT brain wo con DATE OF EXAM: 08/21/2024 6:00 PM COMPARISON: 06/23/2023 06/18/2022 CLINICAL INDICATION: Female, 74 years old with history of headache, c/o chronic headaches TECHNIQUE: Brain: Axial CT images of the brain were obtained with coronal and sagittal reformats created and rev iewed. Contrast used: None. Oral contrast used: None. CT DLP: 1096.4 mGycm, Automated exposure control for dose reduction was used. FINDINGS: Brain: Extra-axial spaces: No abnormal extra-axial fluid collections. Calcified lesion near the pituitary fo ssa just superiorly is likely representing a meningioma which is calcified measuring up to 17 mm. Fin dings similar dating back to at least 06/18/2022. Ventricular system: Dilatation in proportion to cerebral atrophy. Cerebral parenchyma: Cerebral atrophy. No acute intraparenchymal hemorrhage or mass effect. The gao -white junction is well differentiated. Scattered hypoattenuating areas are seen within the white mat ter. Cerebellum: Unremarkable. Mass effect: No evidence of midline shift. Intracranial vasculature: Atherosclerotic calcifications of the intracranial vessels. Soft tissues: Normal. Calvarium/osseous structures: No depressed skull fracture. Paranasal sinuses and mastoid air cells: Mild scattered paranasal sinus disease. Visualized orbits: Orbital contents are intact. IMPRESSION: 1. No acute intracranial process. 2. Nonspecific white matter changes, likely secondary to chronic small vessel ischemic disease. 3. Probable calcified meningioma just superior to the pituitary fossa. [facility], , 08/21/2024 6:42 PM
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
[2024-08-21] MEDS: HYDROmorphone 0.5 MG/0.5 ML SYRINGE IM STA (19:39)
[2024-08-21 20:34] VITALS: BP 144/85; PULSE 109
== END 2024-08-21 20:44 | disposition home or self-care (01) ==
LOC: EC 15:22
DX: R51.9 Headache, unspecified (principal); Z88.6 Allergy status to analgesic agent; Z88.8 Allergy status to other drugs, medicaments and biological substances
CPT/HCPCS: 70450; 99285; 96372 ×2; J1171 ×2

== ENCOUNTER 2024-08-22 17:59 | Emergency (ER) | payer MEDICARE, OTHER ==
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
[2024-08-22] MEDS: SODIUM CHLORIDE 0.9% 1,000 ML IV STA (21:42)
[2024-08-22] MEDS: HYDROmorphone 1 MG/ML 1 ML SYRINGE IVP STA ×2 (21:42→23:06)
[2024-08-22] MEDS: droPERidol 2.5 MG/ML VIAL IVP ONE (21:44)
[2024-08-22 23:05] VITALS: BP 166/90; PULSE 74; RESP 18; TEMP 98.9
== END 2024-08-22 23:25 | disposition home or self-care (01) ==
LOC: EC 17:59
DX: G89.29 Other chronic pain (principal); E66.01 Morbid (severe) obesity due to excess calories; R53.1 Weakness; Z88.8 Allergy status to other drugs, medicaments and biological substances; Z88.5 Allergy status to narcotic agent; Z88.6 Allergy status to analgesic agent; Z86.73 Personal history of transient ischemic attack (TIA), and cerebral infarction without residual deficits; Z68.41 Body mass index [BMI] 40.0-44.9, adult
CPT/HCPCS: 99284; 96374; 96375; 96376; 96361; J1171

== ENCOUNTER 2024-08-25 11:32 | Observation (INO) | payer MEDICARE, OTHER ==
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
[2024-08-25] MEDS: diphenhydrAMINE 50 MG/ML 1 ML VIAL IVP STA (13:37)
[2024-08-25] MEDS: METOCLOPRAMIDE 5 MG/ML 2 ML VIAL IVP STA (13:37)
[2024-08-25] MEDS: SODIUM CHLORIDE 0.9% 1,000 ML IV SCH (13:38)
[2024-08-25] MEDS: SODIUM CHLORIDE 0.9% 1,000 ML IV ONE (13:38)
[2024-08-25] MEDS: KETOROLAC 15 MG/ML 1 ML VIAL IVP STA (13:38)
[2024-08-25 13:43] LABS: Basophils % (A) 0 %; Eosinophils # (A) 0.2 k/uL (0-0.7); Eosinophils % (A) 2 %; HCT 33.5 % (34.0-46.0); HGB 10.8 gm/dL (11.4-16.0); Lymphocytes # (A) 1.4 k/uL (1.0-4.8); Lymphocytes % (A) 15 %; MCH 27.5 pg (25.0-35.0); MCHC 32.2 g/dL (31.0-37.0); MCV 85.6 fL (80.0-100.0); Mean Platelet Volume 6.8; Monocytes # (A) 0.5 k/uL (0-1.0); Monocytes % (A) 6 %; Neutrophils # (A) 7.2 k/uL (1.3-7.7); Neutrophils % (A) 76 %; Platelet Count 281 k/uL (150-450); RBC 3.91 m/uL (3.80-5.40); RDW 14.8 % (11.5-15.5); WBC 9.5 k/uL (3.8-10.6)
[2024-08-25 13:54] LABS: ALT 11 U/L (4-34); AST 20 U/L (14-36); African American GFR (CKD) 89 (>60 ml/min/1.73 sqM); Albumin 3.5 g/dL (3.5-5.0); Alkaline Phosphatase 92 U/L (38-126); Anion Gap 6 mmol/L; Blood Urea Nitrogen 9 mg/dL (7-17); Calcium 8.5 mg/dL (8.4-10.2); Carbon Dioxide 32 mmol/L (22-30); Chloride 102 mmol/L (98-107); Glucose 98 mg/dL (74-99); Magnesium 1.5 mg/dL (1.6-2.3); Non-African American GFR(CKD) 77 (>60 ml/min/1.73 sqM); Potassium 3.1 mmol/L (3.5-5.1); Sodium 140 mmol/L (137-145); Total Bilirubin 0.5 mg/dL (0.2-1.3); Total Protein 6.1 g/dL (6.3-8.2)
[2024-08-25] MEDS ORDERED: NALOXONE 0.4 MG/ML 1 ML VIAL IV PRN (14:10)
[2024-08-25 14:16] LABS: Influenza A Not Detected (Not Detectd); Influenza B Not Detected (Not Detectd); RSV Not Detected (Not Detectd)
[2024-08-25] MEDS: oxyCODONE-APAP 10-325MG 1 EACH TAB PO SCH (16:23)
[2024-08-25] MEDS: FUROSEMIDE 40 MG TAB PO SCH (16:23)
[2024-08-25] MEDS: MAGNESIUM SULFATE-D5W PMX 1 GM in DEXTROSE/WATER 1 100ML.BAG IVPB SCH (17:16)
[2024-08-25] MEDS: CARBIDOPA-LEVODOPA 10-100 MG 1 EACH TAB PO SCH (17:17)
[2024-08-25] MEDS: IPRATROPIUM-ALBUTEROL 3 ML NEB INHALATION SCH (17:43)
[2024-08-25] MEDS: SYMBICORT 160-4.5 MCG INHALER INHALATION SCH (17:46)
[2024-08-25] MEDS: POTASSIUM CHLORIDE 10 MEQ in WATER FOR INJECTION 1 100ML.BAG IVPB STA ×3 (18:28→23:53)
[2024-08-25] MEDS: MIDODRINE 5 MG TAB PO SCH (19:00)
[2024-08-25] MEDS: METOCLOPRAMIDE 5 MG/ML 2 ML VIAL IVP SCH (19:05)
[2024-08-25] MEDS: amLODIPine 5 MG TAB PO SCH (19:05)
[2024-08-25] MEDS: ONDANSETRON 4 MG/2 ML VIAL IVP PRN (20:43)
[2024-08-25] MEDS: hydrALAZINE HCL 50 MG TAB PO SCH (22:12)
[2024-08-25] MEDS: MAGNESIUM OXIDE 400 MG TAB PO SCH (22:51)
[2024-08-25] MEDS: HYDROmorphone 0.5 MG/0.5 ML SYRINGE IVP PRN (23:54)
--- NOTE | 2024-08-26 08:33 | CT ---
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 Study is performed within 24 hours of arrival to the hospital. Contrast used: mL of , (none if empty) CT DLP: 1096.4 mGycm, Automated exposure control for dose reduction was used. FINDINGS: No abnormal hyperdensity is present to suggest an acute intracranial hemorrhage. There is a large rounded calcification in the suprasellar cistern measuring 2.2 by approximately 1.8 cm x 2.0 cm. This was present previously. No acute infarcts are evident. Chronic appearing periventricular white matter hypodensity is present, likely on the basis of chronic white matter ischemic changes. Ventricles and sulci are appropriate for the patient age. No hydrocephalus is evident. Paranasal sinuses and mastoid air cells within the [id number] are clear. IMPRESSION: 1. No acute intracranial process. Follow up MRI can be performed as clinically indicated. 2. Chronic appearing periventricular white matter ischemic type changes. 3. Stable calcification in the suprasellar cistern [facility], , 08/26/2024 8:31 AM
[2024-08-26 08:36] LABS: ALT 7 U/L (8-44); AST 15 U/L (13-35); Albumin 3.3 g/dL (3.8-4.9); Albumin/Globulin Ratio 1.83 Ratio (1.60-3.17); Alkaline Phosphatase 89 U/L (41-126); BUN/Creat Ratio 9.14 Ratio (12.00-20.00); Blood Urea Nitrogen 6.4 mg/dL (9.0-27.0); Calcium 7.9 mg/dL (8.7-10.3); Carbon Dioxide 27.7 mmol/L (21.6-31.8); Chloride 102 mmol/L (96-109); Globulin 1.8 g/dL (1.6-3.3); Glucose 84 mg/dL (70-110); Potassium 3.2 mmol/L (3.5-5.5); Sodium 139 mmol/L (135-145); Total Bilirubin 0.4 mg/dL (0.3-1.2); Total Protein 5.1 g/dL (6.2-8.2)
[2024-08-26 08:44] LABS: Basophils # (A) 0.09 X 10*3/uL (0.00-0.10); Basophils % (A) 1.2 %; Eosinophils # (A) 0.21 X 10*3/uL (0.04-0.35); Eosinophils % (A) 2.7 %; HGB 10.1 g/dL (12.0-15.0); Lymphocytes # (A) 1.76 X 10*3/uL (0.90-5.00); MCH 27.1 pg (27.0-32.0); MCHC 31.6 g/dL (32.0-37.0); MCV 85.8 FL (80.0-97.0); Mean Platelet Volume 9.4 FL (9.5-12.2); Monocytes # (A) 0.66 X 10*3/uL (0.20-1.00); Monocytes % (A) 8.6 %; NRBC Per 100 WBC 0 X 10*3/uL (0.00-0.01); Neutrophils # (A) 4.92 X 10*3/uL (1.80-7.70); Neutrophils % (A) 64.2 %; Platelet Count 240 X 10*3/uL (140-440); RBC 3.73 X 10*6/uL (4.10-5.20); RDW 15.3 % (11.5-14.5); WBC 7.66 X 10*3/uL (4.50-10.00)
[2024-08-26] MEDS: FOLIC ACID 1 MG TAB PO SCH (10:46)
[2024-08-26] MEDS: PANTOPRAZOLE 40 MG TABLET PO SCH (10:46)
[2024-08-26] MEDS: ALPRAZolam 0.5 MG TAB PO SCH (10:46)
[2024-08-26] MEDS: FERROUS SULFATE 325 MG TAB PO SCH (10:46)
[2024-08-26] MEDS: LOSARTAN 25 MG TAB PO SCH (10:47)
[2024-08-26] MEDS ORDERED: Potassium Replacement Protocol 1 EACH MISC MISCELLANE PRN (10:51)
[2024-08-26] MEDS: ESCITALOPRAM 10 MG TAB PO SCH (11:57)
[2024-08-26] MEDS: POTASSIUM CHLORIDE ER 20 MEQ TAB.ER PO SCH (11:57)
--- NOTE | 2024-08-27 01:01 | CT ---
EXAMINATION TYPE: CT chest wo con DATE OF EXAM: 08/26/2024 6:31 PM COMPARISON: None. CLINICAL INDICATION: Female, 74 years old with history of hypoxia, Hypoxia. TECHNIQUE: Axial images were obtained at 5 mm thick sections. Reconstructed images are reviewed on [employer] computer in the coronal plane. Contrast used: mL of , (none if empty) Oral contrast used: (none if empty) CT DLP: 991.6 mGycm, Automated exposure control for dose reduction was used. FINDINGS: Portion of the thyroid visualized is normal. There is a posterior right subclavian aberrant artery posterior to the esophagus and trachea. No suspicious lung nodules or focal infiltrates are present. No enlarged mediastinal or hilar adenopathy is evident. The ascending aorta diameter at the level o f the main pulmonary artery is 3.5 cm. The main pulmonary artery diameter at the bifurcation is 3.3 cm. Coronary artery calcification is present. Limited CT sections are obtained through the upper abdomen. Abdomen is essentially unremarkable. IMPRESSION: 1. No acute pulmonary process [facility], Workstation: [facility], 08/27/2024 12:58 AM
[2024-08-27 13:23] LABS: BUN/Creat Ratio 7.14 Ratio (12.00-20.00); Calcium 8.3 mg/dL (8.7-10.3); Carbon Dioxide 29.6 mmol/L (21.6-31.8); Chloride 106 mmol/L (96-109); Glucose 108 mg/dL (70-110); Potassium 3.7 mmol/L (3.5-5.5); Sodium 147 mmol/L (135-145)
--- NOTE | 2024-08-27 19:18 | HP ---
HISTORY AND PHYSICAL HISTORY OF PRESENT ILLNESS: 74-year-old white female, came in with severe headaches. She states they have been there for over a month. She has progressive nausea, vomiting, unable to keep anything down. She came in with hypertension acceleration, placed her on the floor. CT of the head was negative. She was swabbed for pneumonia was all negative. HOME MEDICATIONS: Reviewed. REVIEW OF SYSTEMS: 14-point review of systems reviewed. ALLERGIES: Reviewed. PAST MEDICAL HISTORY: Atrial fibrillation, cancer, chest pain, angina, heart failure, COPD, CVA, TIA, GI bleed, osteoarthritis, pulmonary embolus, hypothyroidism. PAST SURGICAL HISTORY: Adenoidectomy, bladder surgery, cholecystectomy, heart catheterization, joint replacement, tonsillectomy. FAMILY HISTORY: Father with cancer, CVA, TIA, myocardial infarction. Mother, myocardial infarction. PHYSICAL EXAMINATION: GENERAL: Obese white female, in no acute distress, giving appropriate answers. CARDIOVASCULAR: S1, S2. LUNGS: Scattered wheeze and rhonchi x4. NEUROLOGIC: Alert and oriented x3. OPHTHALMOLOGIC: Pupils equal, round, and reactive. HEAD: Her headaches, she points to the frontal part of her head. CT was negative. VITAL SIGNS: Blood pressure on admission was super high at 188/104. ASSESSMENT: 1. Hypertensive encephalopathy. 2. Hypertension acceleration. 3. Cephalgia secondary to above. PLAN: Blood pressure medicines were evaluated and adjusted. Wait for further treatments with hypertension. Wait for Pulmonary consult to rule out pneumonia. Generalized weakness, PT/OT. Prognosis guarded. MMODL / IJN: [id number] /
--- NOTE | 2024-08-27 21:00 | PN ---
PROGRESS NOTE A 74-year-old white female. CAT scan of the chest is negative. Her headaches are better, but I increased her hypertension medications. She is on 2 L sat in the low 90s, temperature 98.3, blood pressure 119/73. She can possibly go home and follow up as an outpatient. She is stable from medical standpoint as far as I can see. Ambulate as tolerated. Increase magnesium and potassium to go home with. She has a little bit of low potassium. Will follow up as an outpatient. CONDITION: Stable. PROGNOSIS: Guarded. MMODL / IJN: [id number] /
[2024-08-27] MEDS: POTASSIUM CHLORIDE ER 20 MEQ TAB.ER PO SCH (21:44)
--- NOTE | 2024-08-29 05:27 | PN ---
PROGRESS NOTE SUBJECTIVE: A 74-year-old white female, says that she is unable to keep food down, she is dehydrated. She has hypokalemia, nausea, vomiting, diarrhea, unable to keep any foods down. Continues on current treatment, await for GI consult for nausea, vomiting, was unable to keep any liquid down. While checking for orthostatic hypotension, she appears to be possibly dehydrated. Give her some fluids overnight. Potassium replacement protocol. PHYSICAL EXAMINATION: CARDIOVASCULAR: S1 and S2. LUNGS: Transmitted upper sounds. ENDOCRINE: BMI is over 70. GI: Has Increased bowel sounds. HEMATOLOGY: 2+ to 3+ edema. She has hypotension secondary to possible dehydration. Possibly add some fluids overnight, cut down on her blood pressure medications at this time and her blood pressure is much better. PROGNOSIS: Guarded. Ambulate as tolerated. Check orthostatic hypotension. Wait for GI for nausea, vomiting, diarrhea, as well as Surgery. MMODL / IJN: [id number] /
[2024-08-29 09:30] LABS: BUN/Creat Ratio 8.38 Ratio (12.00-20.00); Blood Urea Nitrogen 6.7 mg/dL (9.0-27.0); Carbon Dioxide 32.3 mmol/L (21.6-31.8); Chloride 100 mmol/L (96-109); Glucose 95 mg/dL (70-110); Sodium 141 mmol/L (135-145)
[2024-08-29 09:31] LABS: ALT 6 U/L (8-44); AST 16 U/L (13-35); Albumin 3.3 g/dL (3.8-4.9); Albumin/Globulin Ratio 1.83 Ratio (1.60-3.17); Alkaline Phosphatase 91 U/L (41-126); Calcium 8.7 mg/dL (8.7-10.3); Globulin 1.8 g/dL (1.6-3.3); Total Bilirubin 0.5 mg/dL (0.3-1.2); Total Protein 5.1 g/dL (6.2-8.2)
[2024-08-29 09:57] LABS: Basophils # (A) 0.04 X 10*3/uL (0.00-0.10); Basophils % (A) 0.7 %; Eosinophils # (A) 0.37 X 10*3/uL (0.04-0.35); Eosinophils % (A) 6.5 %; HCT 32.8 % (37.2-46.3); HGB 9.9 g/dL (12.0-15.0); Lymphocytes # (A) 1.17 X 10*3/uL (0.90-5.00); Lymphocytes % (A) 20.5 %; MCH 27.8 pg (27.0-32.0); MCHC 30.2 g/dL (32.0-37.0); MCV 92.1 FL (80.0-97.0); Mean Platelet Volume 9.9 FL (9.5-12.2); Monocytes # (A) 0.49 X 10*3/uL (0.20-1.00); Monocytes % (A) 8.6 %; NRBC Per 100 WBC 0 X 10*3/uL (0.00-0.01); Neutrophils # (A) 3.64 X 10*3/uL (1.80-7.70); Neutrophils % (A) 63.5 %; Platelet Count 230 X 10*3/uL (140-440); RBC 3.56 X 10*6/uL (4.10-5.20); RDW 15.3 % (11.5-14.5); WBC 5.72 X 10*3/uL (4.50-10.00)
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
[2024-08-30 08:00] VITALS: RESP 17
[2024-08-30 13:53] VITALS: BP 107/65; PULSE 83; TEMP 98.4
--- NOTE | 2024-08-30 15:22 | P.PN ---
Subjective Progress Note Date: 08/30/24 SURGICAL PROGRESS NOTE CHIEF COMPLAINT: Nausea, vomiting and diarrhea HISTORY OF PRESENT ILLNESS: Patient reports 1 episode of diarrhea yesterday. She does report nausea no vomiting. She reports poor appetite. She has been doing more of a liquid diet. PHYSICAL EXAM: VITAL SIGNS: Reviewed. GENERAL: Well-developed in no acute distress. ABDOMEN: Soft. Obese. Nondistended. Mild tenderness with palpation of right side of abdomen. No rebound or guarding NEUROLOGIC: Alert and oriented. Cranial nerves II through XII grossly intact. ASSESSMENT: 1. Nausea, vomiting and diarrhea possibly due to a gastroenteritis PLAN: -No plans for endoscopy at this time. Endoscopy can be completed outpatient. -Continue medical management Physician Machine Rebuilder note has been reviewed by physician. Signing provider agrees with the documented findings, assessment, and plan of care. Attestation Patient seen and examined at bedside. States diarrhea has improved and states that she feels some nausea but denies vomiting. She states that she is tolerating the liquid diet. No plans for endoscopy at this time. Continue medical management. She can follow with GI as outpatient as she does follow with Dr. Cameron. Jerrod Fields, DO Objective - Vital Signs Vital signs: Vital Signs Temp 98.4 F 08/30/24 13:30 Pulse 83 08/30/24 13:30 Resp 17 08/30/24 13:30 BP 107/65 08/30/24 13:30 Pulse Ox 94 L 08/30/24 13:30 FiO2 Intake & Output 08/29/24 08/30/24 08/30/24 18:59 06:59 18:59 Intake Total 640 Balance 640 Intake: Oral 640 Other: Voiding Method Diaper Diaper Diaper Incontinent Incontinent Incontinent # Voids 1 1 1 # Bowel Movements 1 - Labs CBC & Chem 7: 08/29/24 03:59 08/29/24 03:59
== END 2024-08-30 17:35 | disposition home or self-care (01) ==
LOC: EC 11:32 → 4SSUR 14:28
PROVIDERS: ADMIT Family Medicine; ATTEND Family Medicine
DX: I67.4 Hypertensive encephalopathy (principal); E87.6 Hypokalemia; R19.7 Diarrhea, unspecified; R11.2 Nausea with vomiting, unspecified; G89.29 Other chronic pain; K58.9 Irritable bowel syndrome, unspecified; E03.9 Hypothyroidism, unspecified; I11.0 Hypertensive heart disease with heart failure; I50.9 Heart failure, unspecified; I25.2 Old myocardial infarction; I48.91 Unspecified atrial fibrillation; J44.9 Chronic obstructive pulmonary disease, unspecified; F32.A Depression, unspecified; F41.9 Anxiety disorder, unspecified; E66.01 Morbid (severe) obesity due to excess calories; M19.90 Unspecified osteoarthritis, unspecified site; Z79.51 Long term (current) use of inhaled steroids; Z79.899 Other long term (current) drug therapy; Z86.711 Personal history of pulmonary embolism; Z86.73 Personal history of transient ischemic attack (TIA), and cerebral infarction without residual deficits; Z87.11 Personal history of peptic ulcer disease; Z87.19 Personal history of other diseases of the digestive system; Z90.49 Acquired absence of other specified parts of digestive tract; Z68.45 Body mass index [BMI] 70 or greater, adult; Z88.8 Allergy status to other drugs, medicaments and biological substances; Z88.5 Allergy status to narcotic agent; Z95.5 Presence of coronary angioplasty implant and graft
CPT/HCPCS: 96376 ×5; 96365 ×2; 96366 ×3; 96375 ×3; 96368; 99284; 36415; 94640 ×9; 80053 ×3; 80048; 83735; 85025 ×3; 87636; 70450; 71250; G0378 ×6; J1200; J2765 ×6; J2405 ×2; J3475; J3480; J1171 ×6

== ENCOUNTER 2024-09-20 01:31 | Emergency (ER) | payer MEDICARE, OTHER ==
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
[2024-09-20] MEDS: ONDANSETRON 4 MG TAB PO STA (02:02)
[2024-09-20] MEDS: HYDROmorphone 1 MG/ML 1 ML SYRINGE IM STA (02:05)
--- NOTE | 2024-09-20 03:08 | XR ---
EXAM: XR Chest, 2 Views CLINICAL HISTORY: SOB. Duo-neb at home. chf TECHNIQUE: Frontal and lateral views of the chest. COMPARISON: CT chest from 06/19/22 FINDINGS: Lungs: Subtle airspace opacities over left upper lung zone, likely atelectasis or summation artifact. Pleural space: Unremarkable. Mediastinum: Unchanged. Bones/joints: No acute findings. Vasculature: Calcified aorta. IMPRESSION: Subtle airspace opacities over left upper lung zone, likely atelectasis or summation artifact. Pneumonia is less likely.
[2024-09-20 03:32] VITALS: BP 152/69; PULSE 83; RESP 18; TEMP 97.8
== END 2024-09-20 03:31 | disposition home or self-care (01) ==
LOC: EC 01:31
DX: R11.0 Nausea (principal); M54.9 Dorsalgia, unspecified; R07.9 Chest pain, unspecified; Z88.6 Allergy status to analgesic agent; Z88.5 Allergy status to narcotic agent; Z88.8 Allergy status to other drugs, medicaments and biological substances
CPT/HCPCS: 93005; 71046; 99285; 96372; J1171

== ENCOUNTER 2024-09-20 17:12 | Observation (INO) | payer MEDICARE, OTHER ==
[2024-09-20] MEDS: NITROGLYCERIN SL TABS 0.4 MG TAB SUBLINGUAL STA ×2 (18:31→22:43)
--- NOTE | 2024-09-20 19:10 | XR ---
EXAMINATION TYPE: XR chest 2V DATE OF EXAM: 09/20/2024 6:57 PM COMPARISON: Chest radiographs from 09/20/2024 CLINICAL INDICATION: Female, 74 years old with history of Chest Pain; [facility] TECHNIQUE: XR chest 2V Frontal and lateral views of the chest. FINDINGS: Lungs/Pleura: Airspace opacities affecting the spine lateral view. There is no evidence of pleural ef fusion, focal consolidation, or pneumothorax. Pulmonary vascularity: Unremarkable. Heart/mediastinum: Cardiomediastinal silhouette is unremarkable. Musculoskeletal: No acute osseous pathology. Other findings: None IMPRESSION: Left lower lung airspace opacities correlate for pneumonia [facility], , 09/20/2024 7:07 PM
[2024-09-20] MEDS: ONDANSETRON 4 MG/2 ML VIAL IVP STA (20:52)
[2024-09-20 20:53] LABS: Basophils % (A) 0 %; Eosinophils # (A) 0.3 k/uL (0-0.7); Eosinophils % (A) 4 %; HCT 33.2 % (34.0-46.0); HGB 10.9 gm/dL (11.4-16.0); Lymphocytes # (A) 1.1 k/uL (1.0-4.8); Lymphocytes % (A) 16 %; MCHC 32.9 g/dL (31.0-37.0); MCV 85.2 fL (80.0-100.0); Mean Platelet Volume 7.3; Monocytes # (A) 0.3 k/uL (0-1.0); Monocytes % (A) 5 %; Neutrophils # (A) 4.9 k/uL (1.3-7.7); Neutrophils % (A) 73 %; Platelet Count 265 k/uL (150-450); RDW 14.7 % (11.5-15.5); WBC 6.7 k/uL (3.8-10.6)
[2024-09-20] MEDS: MORPHINE SULFATE 4 MG/ML SYRINGE IVP STA (20:57)
[2024-09-20] MEDS: ONDANSETRON 4 MG/2 ML VIAL IM STA (21:03)
[2024-09-20] MEDS: MORPHINE SULFATE 4 MG/ML SYRINGE IM STA (21:03)
[2024-09-20 21:09] LABS: Partial Thromboplastin Time 22.8 sec (22.0-30.0); Prothrombin Time 10.7 sec (10.0-12.5)
[2024-09-20 21:18] LABS: ALT 20 U/L (4-34); AST 28 U/L (14-36); African American GFR (CKD) >90 (>60 ml/min/1.73 sqM); Albumin 3.6 g/dL (3.5-5.0); Alkaline Phosphatase 108 U/L (38-126); Anion Gap 7 mmol/L; Blood Urea Nitrogen 13 mg/dL (7-17); Calcium 9.1 mg/dL (8.4-10.2); Carbon Dioxide 33 mmol/L (22-30); Chloride 99 mmol/L (98-107); Glucose 117 mg/dL (74-99); Magnesium 1.5 mg/dL (1.6-2.3); Non-African American GFR(CKD) 85 (>60 ml/min/1.73 sqM); Potassium 3.6 mmol/L (3.5-5.1); Sodium 139 mmol/L (137-145); Total Bilirubin 0.6 mg/dL (0.2-1.3); Total Protein 6.1 g/dL (6.3-8.2)
[2024-09-20] MEDS: IPRATROPIUM-ALBUTEROL 3 ML NEB INHALATION STA (21:18)
[2024-09-20] MEDS: MAGNESIUM SULFATE-D5W PMX 1 GM in DEXTROSE/WATER 1 100ML.BAG IVPB ONE (21:43)
[2024-09-20] MEDS ORDERED: IPRATROPIUM-ALBUTEROL 3 ML NEB INHALATION PRN (22:12)
[2024-09-20] MEDS ORDERED: PNEUMONIA PROTOCOL UTILIZED 1 EACH MISC PO PRN (22:12)
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
[2024-09-21] MEDS: AZITHROMYCIN 500 MG in SODIUM CHLORIDE 0.9% 250 ML IVPB STA (01:01)
[2024-09-21] MEDS: oxyCODONE-APAP 10-325MG 1 EACH TAB PO PRN (01:17)
[2024-09-21] MEDS: NITROGLYCERIN SL TABS 0.4 MG TAB SUBLINGUAL PRN (06:11)
[2024-09-21] MEDS: MORPHINE SULFATE 2 MG/ML SYRINGE IVP PRN (06:12)
[2024-09-21] MEDS: SYMBICORT 160-4.5 MCG INHALER INHALATION SCH (07:51)
--- NOTE | 2024-09-21 08:03 | XR ---
EXAMINATION TYPE: XR chest 1V portable DATE OF EXAM: 09/21/2024 5:24 AM COMPARISON: Chest radiographs from 09/20/2024, CT chest 08/26/2024 TECHNIQUE: XR chest 1V portable Portable AP radiograph of the chest. CLINICAL INDICATION:Female, 74 years old with history of pneumonia; FINDINGS: The patient is rotated which somewhat limits evaluation. Lungs/Pleura: There is no evidence of pleural effusion, focal consolidation, or pneumothorax. Simila r diffuse interstitial prominence. Heart/mediastinum: Cardiomediastinal silhouette is prominent in size. Musculoskeletal: No acute osseous pathology. IMPRESSION: Similar diffuse interstitial prominence which could reflect bronchitis or mild pulmonary vascular con gestion. [facility], , 09/21/2024 8:01 AM
[2024-09-21] MEDS ORDERED: oxyCODONE-APAP 10-325MG 1 EACH TAB PO SCH (09:00)
[2024-09-21] MEDS: PANTOPRAZOLE 40 MG TABLET PO SCH (09:20)
[2024-09-21] MEDS: ESCITALOPRAM 10 MG TAB PO SCH (09:21)
[2024-09-21] MEDS: amLODIPine 5 MG TAB PO SCH (09:21)
[2024-09-21] MEDS: LOSARTAN 25 MG TAB PO SCH (09:22)
[2024-09-21] MEDS: AZITHROMYCIN 500 MG TAB PO SCH (09:23)
[2024-09-21] MEDS: FUROSEMIDE 40 MG TAB PO SCH (09:23)
[2024-09-21] MEDS: MAGNESIUM OXIDE 400 MG TAB PO SCH (09:25)
[2024-09-21] MEDS: ALPRAZolam 0.5 MG TAB PO SCH (09:26)
[2024-09-21] MEDS: CARBIDOPA-LEVODOPA 10-100 MG 1 EACH TAB PO SCH (09:27)
[2024-09-21] MEDS: MIDODRINE 5 MG TAB PO SCH (09:33)
[2024-09-21] MEDS ORDERED: MIDODRINE 5 MG TAB PO PRN (11:48)
[2024-09-21] MEDS: ENOXAPARIN 40 MG/0.4 ML SYRINGE SQ SCH (12:11)
[2024-09-21] MEDS: FOLIC ACID 1 MG TAB PO SCH (12:11)
[2024-09-21] MEDS: FERROUS SULFATE 325 MG TAB PO SCH (12:11)
[2024-09-21] MEDS: POTASSIUM CHLORIDE ER 20 MEQ TAB.ER PO SCH (12:11)
[2024-09-21] MEDS: TRIAMCINOLONE 0.1% CREAM 80 GM TUBE TOPICAL SCH (12:11)
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
[2024-09-21] MEDS: IPRATROPIUM-ALBUTEROL 3 ML NEB INHALATION SCH (14:58)
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
[2024-09-21] MEDS: DOXYCYCLINE 100 MG CAP PO SCH (20:09)
[2024-09-22] MEDS: ONDANSETRON 4 MG TAB PO PRN (06:34)
[2024-09-22] MEDS: METOCLOPRAMIDE 10 MG TAB PO PRN (08:13)
--- NOTE | 2024-09-22 10:29 | CA ---
Transthoracic Echo Report Name: Renée Krishnan Age: 74 Gender: F : 1950 Exam Date: 09/22/2024 08:16 Exam Location: [facility] Ht (in): 62 Wt (lb): 311 Ordering Physician: Juliette Turcios Attending/Referring Phys: [id number], Tam Optical Mechanic Esperanza Hernández RDCS Procedure CPT: Indications: LVF Cardiac Hx: Technical Quality: Poor, Very technically difficult study Contrast 1: Total Dose (mL): Contrast 2: Total Dose (mL): MEASUREMENTS (Male / Female) Normal Values 2D ECHO LV Diastolic Diameter PLAX 4.0 cm 4.2 - 5.9 / 3.9 - 5.3 cm LV Systolic Diameter PLAX 2.4 cm IVS Diastolic Thickness 1.4 cm 0.6 - 1.0 / 0.6 - 0.9 cm LVPW Diastolic Thickness 1.4 cm 0.6 - 1.0 / 0.6 - 0.9 cm LV Relative Wall Thickness 0.7 RV Internal Dim ED PLAX 2.6 cm LVOT Diameter 2.3 cm LA Systolic Diameter LX 3.9 cm 3.0 - 4.0 / 2.7 - 3.8 cm M-MODE Aortic Root Diameter MM 3.2 cm LA Systolic Diameter MM 4.2 cm LA Ao Ratio MM 1.3 AV Cusp Separation MM 1.7 cm FINDINGS Left Ventricle Left ventricular ejection fraction is estimated at 55-60 %. Moderately increased septal wall thickness. Moderately increased posterior wall thickness. No obvious regional wall motion abnormalities. Right Ventricle Right Atrium Left Atrium Mildly increased left atrial diameter. Mitral Valve Aortic Valve Tricuspid Valve Pulmonic Valve Pericardium Echo free space anterior to the right ventricle likely represents a fat pad. Aorta Normal size aortic root and proximal ascending aorta. CONCLUSIONS Limited study Normal LV systolic function. Moderate LVH No pericardial effusion Previewed by: Dr. Chinmay Momin MD (Electronically Signed) Final Date: 22 September 2024 10:28
--- NOTE | 2024-09-22 12:27 | P.PN ---
Subjective Progress Note Date: 09/22/24 Consult reason: chest pain History of present illness: This is a 74-year-old female with past medical history of paroxysmal atrial fibrillation, chronic HFpEF, mild CAD, CVA hypertension, dyslipidemia, GERD, Scales's esophagus and upper GI bleed history, COPD, chronic hypoxic respiratory failure on home O2 morbid obesity, she denies smoking history, r ecent diagnosis of Parkinson's per patient. Patient does not follow with a career agent. She last saw Dr. IFEOMA Cruz in 2012. We have been asked to evaluate patient for chest pain. Patient was evaluated for chest pain by cardiology during a hospitalization in August. At that time she had a Mackenzie catheter malfunction. Acute coronary syndrome was ruled out. Patient states that she has had chest pain on and off and not necessarily with exertion. It usually happens at rest. Pain is located in the midsternal area and it radiates to the back and she states she also has a bad back pain with chronic back pain. Patient gives history that she had a myocardial infarction 25 years ago and did not receive any stents at that time. She is unable to walk. She states her left leg goes out on her and she usually uses a walker to ambulate. Blood pressure 114/73, heart rate 88, pulse ox 100% on 4 L nasal cannula. Patient has been started on IV antibiotics and home cardiac medications. Patient is seen today in the emergency center waiting for bed on the observation unit. -EKG: Sinus rhythm with no acute ST changes. -Chest x-ray: Left lower lung airspace opacities correlate for pneumonia. -Laboratory studies: WBC 6.7, hemoglobin 10.9 CMP unremarkable. Troponin negative x 2. -Home cardiac medications: Amlodipine 5 mg daily, Lasix 40 mg twice daily, losartan 25 mg daily, magnesium oxide 400 mg twice daily, potassium chloride 20 mEq twice daily. -Cardiac catheterization [place] [address] IFEOMA Cruz revealed right dominant system. No significant coronary artery disease. EF 60% without mitral regurgitation. -Echocardiogram performed 06/04/2022 revealed normal LV systolic function, technically suboptimal study. 09/22 Patient seen and examined on the observation unit. Patient states that she did have some chest pain this morning in the left arm and took Percocet that did not seem to help and also nitroglycerin. Sublingual nitro did not seem to help her pain this morning. Last night she refused to take it because she states that it does not make any difference for her. Pain is also in her back area. Blood pressure 156/82, heart rate 87, pulse ox 95% on 2 L nasal cannula. Troponins have been negative x 3 draws. proBNP 311. A limited echocardiogram was obtained as patient was refusing further views. Echocardiogram revealed normal LV systolic function. Moderate LVH. No pericardial effusion. Physical examination: Gen: This is a morbidly obese 74-year-old female appears to be in no acute distress. VS: reviewed HEENT: Head is atraumatic, normocephalic. Pupils equal, round. Sclerae is anicteric. NECK: Supple. No JVD. LUNGS: Clear to auscultation. No wheezes or rhonchi. No intercostal retractions. HEART: Regular rate and rhythm. No murmur. ABDOMEN: Soft No tenderness. EXTREMITIES: No pedal edema. No calf tenderness. NEUROLOGICAL: Patient is awake, alert and oriented x3. Assessment: Left lower lung pneumonia Atypical chest pain, acute coronary syndrome ruled out History of paroxysmal atrial fibrillation--- note: patient is no longer on Eliq uis unknown reason Chronic HFpEF Mild CAD by cardiac catheterization in 2016 History of CVA Hypertension Dyslipidemia GERD COPD Chronic hypoxic respiratory failure on home O2 Morbid obesity with BMI of 56 Possible Parkinson's disease per patient, new diagnosis Plan: Continue current cardiac medications N.p.o. after midnight for possible cardiac catheterization Further recommendations as patient progresses. Nurse practitioner note has been reviewed, I agree with documented findings and plan of care. Patient was seen and examined. Objective - Vital Signs Vital signs: Vital Signs Temp 98.8 F 09/22/24 07:00 Pulse 84 09/22/24 08:55 Resp 18 09/22/24 07:00 BP 156/82 09/22/24 07:00 Pulse Ox 95 09/22/24 08:47 FiO2 Intake & Output 09/21/24 09/22/24 09/22/24 18:59 06:59 18:59 Intake Total 237 350 Output Total 900 1500 Balance -663 -1150 Weight 141.067 kg Intake: Oral 237 350 Output: Urine 900 1500 Other: Voiding Method Diaper Diaper External Catheter External Catheter - Labs CBC & Chem 7: 09/20/24 20:42 09/20/24 20:42 Labs: Microbiology - Last 24 Hours (Table) 09/20/24 23:41 Blood Culture - Preliminary Blood
[2024-09-22] MEDS: HYDROmorphone 0.5 MG/0.5 ML SYRINGE IVP PRN (14:05)
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
[2024-09-23] MEDS ORDERED: ALPRAZolam 0.25 MG TAB PO PRN (09:47)
[2024-09-23] MEDS ORDERED: NITROGLYCERIN SL TABS 0.4 MG TAB SUBLINGUAL PRN (09:47)
[2024-09-23] MEDS: ASPIRIN 325 MG TAB PO STA (10:09)
[2024-09-23] MEDS: ATORVASTATIN 80 MG TAB PO STA (10:15)
[2024-09-23 11:00] LABS: Glucose,Whole Blood 143 mg/dL (70-110)
[2024-09-23] MEDS: HEPARIN SODIUM,PORCINE 10,000 UNIT in SODIUM CHLORIDE 0.9% 1,000 ML IRRIGATION PRN (11:16)
[2024-09-23] MEDS: HEPARIN SODIUM,PORCINE (1 ML) 2,500 UNIT in SODIUM CHLORIDE 0.9% 250 ML IRRIGATION PRN (11:16)
[2024-09-23] MEDS: MIDAZOLAM 2 MG/2 ML VIAL IVP ONE (11:44)
[2024-09-23] MEDS: LIDOCAINE 1% INJ 10MG/ML (20 ML MDV) SQ ONE (11:44)
[2024-09-23] MEDS: fentaNYL (PF) 50 MCG/1 ML VIAL IVP ONE (11:44)
[2024-09-23] MEDS: VERAPAMIL SYRINGE (5 MG/10 ML) INTRAARTER ONE (11:46)
[2024-09-23] MEDS: HEPARIN SODIUM 1,000 UN/ML (10ML VL) IVP ONE (11:51)
[2024-09-23] MEDS: SODIUM CHLORIDE 0.9% 1,000 ML IV ONE (11:52)
[2024-09-23] MEDS: IOPAMIDOL-370 100ML BTL INJ ONE (11:55)
[2024-09-23] MEDS ORDERED: RX INFO: IV CONTRAST WAS GIVEN 1 EACH MISC MISCELLANE PRN (12:06)
--- NOTE | 2024-09-23 12:07 | P.PN ---
Subjective Progress Note Date: 09/23/24 Consult reason: chest pain History of present illness: This is a 74-year-old female with past medical history of paroxysmal atrial fibrillation, chronic HFpEF, mild CAD, CVA hypertension, dyslipidemia, GERD, Scales's esophagus and upper GI bleed history, COPD, chronic hypoxic respiratory failure on home O2 morbid obesity, she denies smoking history, r ecent diagnosis of Parkinson's per patient. Patient does not follow with a city planning engineer. She last saw Dr. IFEOMA Cruz in 2012. We have been asked to evaluate patient for chest pain. Patient was evaluated for chest pain by cardiology during a hospitalization in August. At that time she had a Mackenzie catheter malfunction. Acute coronary syndrome was ruled out. Patient states that she has had chest pain on and off and not necessarily with exertion. It usually happens at rest. Pain is located in the midsternal area and it radiates to the back and she states she also has a bad back pain with chronic back pain. Patient gives history that she had a myocardial infarction 25 years ago and did not receive any stents at that time. She is unable to walk. She states her left leg goes out on her and she usually uses a walker to ambulate. Blood pressure 114/73, heart rate 88, pulse ox 100% on 4 L nasal cannula. Patient has been started on IV antibiotics and home cardiac medications. Patient is seen today in the emergency center waiting for bed on the observation unit. -EKG: Sinus rhythm with no acute ST changes. -Chest x-ray: Left lower lung airspace opacities correlate for pneumonia. -Laboratory studies: WBC 6.7, hemoglobin 10.9 CMP unremarkable. Troponin negative x 2. -Home cardiac medications: Amlodipine 5 mg daily, Lasix 40 mg twice daily, losartan 25 mg daily, magnesium oxide 400 mg twice daily, potassium chloride 20 mEq twice daily. -Cardiac [place] [address] IFEOMA Cruz revealed right dominant system. No significant coronary artery disease. EF 60% without mitral regurgitation. -Echocardiogram performed 06/04/2022 revealed normal LV systolic function, technically suboptimal study. 09/22 Patient seen and examined on the observation unit. Patient states that she did have some chest pain this morning in the left arm and took Percocet that did not seem to help and also nitroglycerin. Sublingual nitro did not seem to help her pain this morning. Last night she refused to take it because she states that it does not make any difference for her. Pain is also in her back area. Blood pressure 156/82, heart rate 87, pulse ox 95% on 2 L nasal cannula. Troponins have been negative x 3 draws. proBNP 311. A limited echocardiogram was obtained as patient was refusing further views. Echocardiogram revealed normal LV systolic function. Moderate LVH. No pericardial effusion. 09/23 Patient seen and examined. Patient states that she is still having left-sided chest pain. Patient was made n.p.o. for possible cardiac catheterization. Disc ussed option of this and she is agreeable to move forward with this today. Blood pressure 121/66, heart rate 86, pulse ox 95% on room air.. Physical examination: Gen: This is a morbidly obese 74-year-old female appears to be in no acute distress. VS: reviewed HEENT: Head is atraumatic, normocephalic. Pupils equal, round. Sclerae is anicteric. NECK: Supple. No JVD. LUNGS: Clear to auscultation. No wheezes or rhonchi. No intercostal retractions. HEART: Regular rate and rhythm. No murmur. ABDOMEN: Soft No tenderness. EXTREMITIES: No pedal edema. No calf tenderness. NEUROLOGICAL: Patient is awake, alert and oriented x3. Assessment: Possible left lower lung pneumonia Atypical chest pain, acute coronary syndrome ruled out History of paroxysmal atrial fibrillation--- note: patient is no longer on Eliquis unknown reason Chronic HFpEF Mild CAD by cardiac catheterization in 2016 History of CVA Hypertension Dyslipidemia GERD COPD Chronic hypoxic respiratory failure on home O2 Morbid obesity with BMI of 56 Possible Parkinson's disease per patient, new diagnosis Plan: Continue current cardiac medications N.p.o. Patient underwent cardiac catheterization today with Dr. Momin which found no obstructive coronary artery disease. Patient is cleared for discharge from a cardiology perspective. Cardiology will sign off this case and follow on an as-needed basis. Please reconsult for any new concerns. Patient may follow-up in the office in one to 2 weeks. Nurse practitioner note has been reviewed, I agree with documented findings and plan of care. Patient was seen and examined. Objective - Vital Signs Vital signs: Vital Signs Temp 98.8 F 09/23/24 07:00 Pulse 86 09/23/24 07:00 Resp 17 09/23/24 08:04 BP 121/66 09/23/24 07:00 Pulse Ox 95 09/23/24 07:00 FiO2 Intake & Output 09/22/24 09/23/24 09/23/24 18:59 06:59 18:59 Intake Total 963 Output Total 1000 200 Balance -37 -200 Intake: Oral 963 Output: Urine 1000 200 Other: Voiding Method Diaper Diaper Diaper External Catheter External Catheter External Catheter # Bowel Movements 0 - Labs CBC & Chem 7: 09/20/24 20:42 09/20/24 20:42 Labs: Microbiology - Last 24 Hours (Table) 09/20/24 23:41 Blood Culture - Preliminary Blood
--- NOTE | 2024-09-23 12:08 | P.PCN ---
Date of Procedure: 09/23/24 Operative Findings: CARDIAC CATHETERIZATION PERFORMING PHYSICIAN: Chinmay Momin MD, RPVI PROCEDURE PERFORMED: 1. Selective right and left coronary angiogram 2. Ultrasound-guided access of the right radial artery INDICATION: Chest discomfort concerning for angina COMPLICATION: None APPROACH: Right radial artery LEVEL OF SEDATION: Moderate with a sedation length of 18 minutes PROCEDURE DESCRIPTION: After obtaining an informed consent, the patient was brought to cardiac produce laborer. Local anesthesia was performed using lidocaine subcutaneously. The right radial artery was cannulated using Seldinger technique, under ultrasound guidance, the guidewire passed easily, following that we advanced a 5-Welsh sheath dilator assembly, the wire and dilator were removed and sheath was flushed. Following that, 2 mg of verapamil along with 5000 unit heparin were given. Selective right and left coronary angiogram using a 5-Welsh JR4 and JL 3.5 catheters. Following that we did left heart catheterization using 5-Welsh pigtail catheter. The procedure was completed there was no complication. SELECTIVE CORONARY ANGIOGRAM: The right coronary artery: In large-caliber vessel and a dominant vessel appears to be angiographically normal Left main: Is angiographically normal and calcified vessel The left circumflex: Large-caliber vessel nondominant vessel with no evidence of high-grade The left anterior descending artery: Large-caliber vessel with mild luminal irregularities only. CONCLUSION: 1. Mild nonobstructive CAD POSTPROCEDURE MANAGEMENT: Medical treatment
[2024-09-23] MEDS: oxyCODONE-APAP 10-325MG 1 EACH TAB PO SCH (12:31)
[2024-09-23 13:26] VITALS: RESP 18; TEMP 98.9
[2024-09-23] MEDS: ALPRAZolam 0.5 MG TAB PO PRN (14:37)
[2024-09-23 15:11] VITALS: BP 107/53; PULSE 89
[2024-09-23] MEDS: SODIUM CHLORIDE 0.9% 1,000 ML IV SCH (16:26)
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
== END 2024-09-23 19:12 | disposition home or self-care (01) ==
LOC: EC 17:12 → 6NMEDSUR 22:12
PROVIDERS: ADMIT Hospitalist; ATTEND Hospitalist
DX: R07.89 Other chest pain (principal); M94.0 Chondrocostal junction syndrome [Tietze]; J44.0 Chronic obstructive pulmonary disease with (acute) lower respiratory infection; J96.11 Chronic respiratory failure with hypoxia; I11.0 Hypertensive heart disease with heart failure; I50.32 Chronic diastolic (congestive) heart failure; I25.10 Atherosclerotic heart disease of native coronary artery without angina pectoris; I25.2 Old myocardial infarction; I48.0 Paroxysmal atrial fibrillation; E03.9 Hypothyroidism, unspecified; E66.2 Morbid (severe) obesity with alveolar hypoventilation; R26.89 Other abnormalities of gait and mobility; R60.0 Localized edema; E78.5 Hyperlipidemia, unspecified; F32.A Depression, unspecified; F41.9 Anxiety disorder, unspecified; G62.9 Polyneuropathy, unspecified; G89.29 Other chronic pain; K21.9 Gastro-esophageal reflux disease without esophagitis; K58.9 Irritable bowel syndrome, unspecified; M19.90 Unspecified osteoarthritis, unspecified site; M54.50 Low back pain, unspecified; Z88.8 Allergy status to other drugs, medicaments and biological substances; Z88.6 Allergy status to analgesic agent; Z88.5 Allergy status to narcotic agent; Z79.891 Long term (current) use of opiate analgesic; Z79.51 Long term (current) use of inhaled steroids; Z79.899 Other long term (current) drug therapy; Z85.41 Personal history of malignant neoplasm of cervix uteri; Z86.711 Personal history of pulmonary embolism; Z86.73 Personal history of transient ischemic attack (TIA), and cerebral infarction without residual deficits; Z87.11 Personal history of peptic ulcer disease; Z87.19 Personal history of other diseases of the digestive system; Z68.43 Body mass index [BMI] 50.0-59.9, adult; Z99.81 Dependence on supplemental oxygen; Z87.01 Personal history of pneumonia (recurrent)
CPT/HCPCS: 96376 ×3; 96372 ×2; 96375 ×2; 96365; 96366 ×2; 96367; 99285; 36415; 94640 ×4; 94760; 93005; 93308; 93458; 83880; 80053; 87449; 83735; 84484 ×2; 85025; 85610; 85730; 87040; 84145; 71045; 71046; G0378 ×4; C1769 ×2; C1894; J2250; J2270 ×2; J1644 ×3; J2405; J0456; J0696 ×2; J2003; J1650 ×2; J3475; J1171 ×2; Q9967; J3010

== ENCOUNTER 2025-01-17 17:23 | Observation (INO) | payer MEDICARE, OTHER ==
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
--- NOTE | 2025-01-17 20:26 | XR ---
EXAMINATION TYPE: XR chest 2V DATE OF EXAM: 01/17/2025 8:14 PM COMPARISON: 09/21/2024 CLINICAL INDICATION: Female, 74 years old with history of Weakness, TECHNIQUE: XR chest 2V view(s) obtained. Exam limited due to body habitus. FINDINGS: The heart size is normal. The pulmonary vasculature is normal. The lungs are clear. Pedicle screws and fixation rods are present in the mid thoracic spine. IMPRESSION: 1. No acute pulmonary process. [facility], , 01/17/2025 8:24 PM
[2025-01-17] MEDS: HYDROmorphone 1 MG/ML 1 ML SYRINGE IVP STA (22:05)
[2025-01-17] MEDS: FUROSEMIDE 10 MG/ML 4 ML VIAL IV SCH (22:06)
[2025-01-17 22:15] LABS: Basophils # (A) 0.05 10*3/uL (0.00-0.10); Basophils % (A) 0.4 %; Eosinophils # (A) 0.04 10*3/uL (0.04-0.35); Eosinophils % (A) 0.3 %; HCT 35.9 % (37.2-46.3); HGB 11.7 g/dL (12.0-15.0); Lymphocytes % (A) 11.8 %; MCHC 32.6 g/dL (32.0-37.0); MCV 82.7 fL (80.0-97.0); Monocytes # (A) 0.75 10*3/uL (0.20-1.00); Monocytes % (A) 5.9 %; Neutrophils # (A) 10.33 10*3/uL (1.80-7.70); Neutrophils % (A) 81.3 %; Platelet Count 274 10*3/uL (140-440); RBC 4.34 10*6/uL (4.10-5.20); RDW 15.3 % (11.5-14.5); WBC 12.71 10*3/uL (4.50-10.00)
[2025-01-17 22:45] LABS: ALT 12 U/L (4-34); AST 26 U/L (14-36); African American GFR (CKD) >90 (>60 ml/min/1.73 sqM); Albumin 3.8 g/dL (3.5-5.0); Alkaline Phosphatase 97 U/L (38-126); Anion Gap 6 mmol/L; Blood Urea Nitrogen 15 mg/dL (7-17); Calcium 9.5 mg/dL (8.4-10.2); Carbon Dioxide 27 mmol/L (22-30); Chloride 103 mmol/L (98-107); Glucose 105 mg/dL (74-99); Magnesium 1.8 mg/dL (1.6-2.3); Non-African American GFR(CKD) 82 (>60 ml/min/1.73 sqM); Phosphorus 3.9 mg/dL (2.5-4.5); Sodium 136 mmol/L (137-145); Total Protein 6.3 g/dL (6.3-8.2)
[2025-01-17 22:52] LABS: NT-Pro-B-Type Natriuretic Pept 559 pg/mL
[2025-01-17 23:15] LABS: Partial Thromboplastin Time 23.3 sec (22.0-30.0); Prothrombin Time 11.4 sec (10.0-12.5)
[2025-01-18] MEDS: HYDROmorphone 1 MG/ML 1 ML SYRINGE IVP PRN (02:23)
[2025-01-18] MEDS ORDERED: ALPRAZolam 0.5 MG TAB PO PRN (11:00)
[2025-01-18] MEDS: BACLOFEN 10 MG TAB PO SCH (15:25)
[2025-01-18] MEDS: ACETAMINOPHEN TAB 500 MG TAB PO SCH (15:26)
[2025-01-18] MEDS: CARBIDOPA-LEVODOPA 10-100 MG 1 EACH TAB PO SCH (15:42)
[2025-01-18] MEDS: APIXABAN 2.5 MG TABLET PO SCH (21:50)
[2025-01-18] MEDS: ALPRAZolam 0.25 MG TAB PO PRN (22:16)
--- NOTE | 2025-01-19 04:13 | CT ---
EXAM: CT Chest, Abdomen and Pelvis Without Intravenous Contrast CLINICAL HISTORY: ITS.REASON CT Reason: dyspnea/abdominal pain TECHNIQUE: Axial computed tomography images of the chest, abdomen and pelvis without intravenous contrast. CTDI is 15.7 mGy and DLP is 930.8 mGy-cm. This CT exam was performed using one or more of the following dose reduction techniques: automated exposure control, adjustment of the mA and/or kV according to patient size, and/or use of iterative reconstruction technique. Incomplete imaging of the pelvis was obtained. COMPARISON: No relevant prior studies available. FINDINGS: Limitations: Limited evaluation in the absence of contrast. CHEST: Lungs: Mild dependent atelectatic changes within the lungs. No mass. Pleural space: Unremarkable. No significant effusion. No pneumothorax. Heart: Coronary artery calcifications. Mitral annular calcifications. No cardiomegaly. No significant pericardial effusion. ABDOMEN: Liver: Unremarkable. Gallbladder and bile ducts: Unremarkable. No calcified stones. No ductal dilation. Pancreas: Pancreatic fatty atrophy. No ductal dilation. Spleen: Unremarkable. No splenomegaly. Adrenals: Unremarkable. No mass. Kidneys and ureters: No evidence of radiopaque renal calculi or signs of collecting system dilatation. Stomach and bowel: Aberrant right subclavian artery. No evidence of diverticulum at its origin. No evidence of bowel obstruction. No mucosal thickening. PELVIS: Appendix: Normal appendix. Bladder: The visualized bladder is unremarkable. No stones. Reproductive: Hysterectomy changes. CHEST, ABDOMEN and PELVIS: Intraperitoneal space: Unremarkable. No significant fluid collection. No free air. Bones/joints: T7-T8 posterior spinal fusion hardware. Degenerative changes in the spine. Findings compatible with Diffuse Idiopathic Skeletal Hyperostosis (DISH). No acute fracture. Soft tissues: Umbilical hernia containing fat. Soft tissue calcifications noted overlying the right paraspinal and abdominal musculature. Vasculature: Atherosclerotic disease. Lymph nodes: Unremarkable. No enlarged lymph nodes. IMPRESSION: 1. Limited evaluation in the absence of contrast. 2. No evidence of radiopaque renal calculi or signs of collecting system dilatation. 3. Normal appendix. 4. No evidence of bowel obstruction. 5. Incidental findings as described.
--- NOTE | 2025-01-19 05:21 | HP ---
HISTORY AND PHYSICAL HISTORY OF PRESENT ILLNESS: A 74-year-old white female comes in with fluid overload, abdominal pain, . She has nausea, vomiting, diarrhea, recent debility, chronic pain, walks with very short of breath, associated with chest pain, nausea, vomiting, shortness of breath . Home medications were reviewed including Zofran, Xanax, Percocet, Lexapro, iron, folic acid, Cozaar, Protonix, Symbicort, Sinemet. She has been noncompliant with medications, including her breathing treatments and oxygen. PAST MEDICAL HISTORY: Atrial fibrillation, cancer, chest pain, angina, heart failure, COPD, CVA, TIA, GI bleed, myocardial infarction, osteoarthritis, pulmonary embolism, renal disease, skin disorder, herniated disk, pacemaker. FAMILY HISTORY: Mother with myocardial infarction. PHYSICAL EXAMINATION: VITAL SIGNS: Stable. Afebrile. CARDIOVASCULAR: S1, S2. LUNGS: Decreased breath sounds x4. GI: Soft. EXTREMITIES: 2 to 3+ edema. Large amount of lymphedema throughout her lower extremities. ABDOMEN: inspection. PSYCH: Fair mood and affect. Alert and oriented x3. NEUROLOGIC: Alert and oriented x3. SKIN: No rashes. Skin is dry and intact. ASSESSMENT AND PLAN: pain, acute on chronic obstructive pulmonary disease, gravely disabled, morbid obesity, lymphadenopathy, chronic congestive heart failure, diastolic; history of degenerative disk disease, severe TMJ. Prognosis is guarded. Please see further orders. MMODL / IJN: [id number] /
[2025-01-19] MEDS: LEVOTHYROXINE 75 MCG TAB PO SCH (05:45)
[2025-01-19] MEDS: IPRATROPIUM-ALBUTEROL 3 ML NEB INHALATION SCH (09:14)
[2025-01-19] MEDS: DAPAGLIFLOZIN PROPANEDIOL 5 MG TABLET PO SCH (09:43)
[2025-01-19] MEDS: MULTIVITAMINS, THERA 1 EACH TAB PO SCH (09:43)
[2025-01-19] MEDS: SPIRONOLACTONE 25 MG TAB PO SCH (09:43)
[2025-01-19] MEDS: CITALOPRAM HYDROBROMIDE 20 MG TAB PO SCH (09:43)
[2025-01-19] MEDS: FUROSEMIDE 20 MG TAB PO SCH (09:43)
[2025-01-19] MEDS: polyethylene glycoL 3350 17 GM POWD.PACK PO SCH (09:44)
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
[2025-01-19] MEDS: ONDANSETRON 4 MG/2 ML VIAL IVP PRN (12:47)
[2025-01-19 13:06] VITALS: BMI 53.0
--- NOTE | 2025-01-20 01:15 | PN ---
PROGRESS NOTE SUBJECTIVE: A 74-year-old female with CHF, had weakness and abdominal pain to the back. PHYSICAL EXAMINATION: CARDIOVASCULAR: S1 and S2. LUNGS: Clear. GI: Soft. HEMATOLOGY: Negative Homans. ASSESSMENT AND PLAN: Congestive heart failure with generalized weakness, chronic back pain, degenerative disc disease, chronic obstructive pulmonary disease, asthma, sleep apnea, noncompliant with medications. She needs to go to rehab as she is unable to ambulate . Prognosis guarded. MMODL / IJN: [id number] /
--- NOTE | 2025-01-20 10:13 | P.PN ---
Subjective HISTORY OF PRESENT ILLNESS: This is a 74-year-old female with a past medical history significant for atrial fibrillation, coronary artery disease, congestive heart failure, CVA, hypertension, hyperlipidemia, GERD, GI bleed, chronic hypoxic respiratory failure on home oxygen, and morbid obesity. Patient does not follow with a rotor coil taper. We have been asked to see the patient in consultation for congestive heart failure. Patient examined at the bedside. Patient states she presented to the hospital due to inability to walk. She states that her left leg has been very weak and she is unable to stand on it. She denied having any chest pain or pressure. She reports some mild shortness of breath at night when trying to sleep. She states that she did have a little bit of swelling in her legs. She states that her swelling and her shortness of breath are not any worse than her baseline and are actually improved today. She reports occasional dizziness. DIAGNOSTICS: - EKG reveals sinus mechanism with no signs of acute ischemia. - Chest xray negative for acute process. - Laboratory data: WBC 12.71. Hemoglobin 11.7. Platelet count 274. Sodium 136. Potassium 4.0. BUN 15. Creatinine 0.72. Troponin negative x 1. proBNP 559. - Current home cardiac medications include Aldactone 25 mg daily, Lasix 20 mg daily, Eliquis 2.5 mg twice a day, Jardiance 10 mg daily. - Most recent echocardiogram obtained in September 2024 revealed ejection fraction 55 to 60%, no obvious regional wall motion abnormalities, moderate LVH, no pericardial effusion - Cardiac catheterization history: 09/[address] Momin revealing mild nonobstructive CAD 01/20/2025 Patient examined this morning to bedside. Patient denies chest pain or pressure. She denies shortness of breath. Vital signs are stable. PHYSICAL EXAM: VITAL SIGNS: Reviewed. GENERAL: Well-developed in no acute distress. HEENT: Head is normocephalic. Pupils are equal, round. Sclerae anicteric. Mucous membranes of the mouth are moist. Neck supple. No JVD or thyromegaly LUNGS: Respirations even and unlabored. Lungs essentially clear to auscultation bilaterally. HEART: Regular rate and rhythm. S1 and S2 heard. ABDOMEN: Soft. Nondistended. Nontender. EXTREMITIES: Normal range of motion. No clubbing or cyanosis. Peripheral pulses intact. No lower extremity edema NEUROLOGIC: Awake and alert. Oriented x 3. ASSESSMENT: Generalized weakness with inability to walk Chronic heart failure with preserved EF, no evidence of acute exacerbation Paroxysmal atrial fibrillation Mild nonobstructive CAD Hypertension Hyperlipidemia History of GI bleed History of GERD Chronic hypoxic respiratory failure on home oxygen History of CVA Morbid obesity: BMI 53.0 PLAN: Patient is not clinically in congestive heart failure at the time of examination. Continue home dose of oral Lasix 20 mg daily Continue additional home cardiac medications Patient is currently stable for discharge from a cardiac standpoint We will sign off. Please reconsult if needed. Nurse practitioner note has been reviewed by physician. Signing provider agrees with the documented findings, assessment, and plan of care documented by RESIDENTIAL SALES as a scribe. Objective - Vital Signs Vital signs: Vital Signs Temp 97.7 F 01/20/25 07:00 Pulse 76 01/20/25 09:07 Resp 16 01/20/25 07:00 BP 100/64 01/20/25 07:00 Pulse Ox 96 01/20/25 08:56 FiO2 Intake & Output 01/19/25 01/20/25 01/20/25 18:59 06:59 18:59 Intake Total 240 Output Total 650 1000 Balance -410 -1000 Weight 131.542 kg Intake: Oral 240 Output: Urine 650 1000 Other: Voiding Method External Catheter - Labs CBC & Chem 7: 01/17/25 21:55 01/17/25 21:55
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
[2025-01-21] MEDS ORDERED: ZINC OXIDE PASTE (Z-GUARD) 1 APPLIC TOPICAL PRN (08:16)
[2025-01-21] MEDS: LIDOCAINE 4% PATCH TOPICAL SCH (17:03)
[2025-01-21 19:22] LABS: Appearance,Urine Cloudy (Clear); Bacteria,Urine Rare /hpf; Bilirubin,Urine Negative (Negative); Blood,Urine Negative (Negative); Color,Urine Yellow; Glucose,Urine (UA) 4+ (Negative); Hyaline Casts,Urine 1 /lpf (0-2); Ketones,Urine Negative (Negative); Leukocyte Esterase,Urine Moderate (Negative); Nitrite,Urine Positive (Negative); PH, Urine 5.5 (5.0-8.0); Protein,Urine Negative (Negative); RBC,Urine 20 /hpf (0-5); Specific Gravity,Urine 1.023 (1.001-1.035); Squamous Epithelial Cell,Urine <1 /hpf (0-4); Urobilinogen,Urine <2.0 mg/dL (<2.0); WBC,Urine 9 /hpf (0-5)
[2025-01-21] MEDS: methylPREDNISolone SOD SUCCI 40 MG/ML 1 ML VIAL IV SCH (20:17)
--- NOTE | 2025-01-21 20:48 | PN ---
PROGRESS NOTE SUBJECTIVE: A 74-year-old white female, acute on chronic CHF, complaining of abdominal pain, mid back pain, going to start lidocaine patches. Continue current pain medicine, PT and OT. She will need to go to a rehab center as she has no order of those. Apparently, she does want to go hotel or the restaurant. PHYSICAL EXAMINATION: CARDIOVASCULAR: S1, S2. LUNGS: Transmitted upper airway sounds. HEMATOLOGY: Negative Homans. EXTREMITIES: 2 to 3+ generalized edema. ASSESSMENT AND PLAN: Acute on chronic congestive heart failure, chronic obstructive pulmonary disease, degenerative disk disease, TMJ. Prognosis guarded. Continue with diuresis and control updrafts. Prognosis guarded. Lidocaine patches for pain. MMODL / IJN: [id number] /
[2025-01-22 08:31] LABS: Basophils # (A) 0.03 10*3/uL (0.00-0.10); Basophils % (A) 0.5 %; HCT 36.9 % (37.2-46.3); HGB 11.2 g/dL (12.0-15.0); Lymphocytes # (A) 0.56 10*3/uL (0.90-5.00); Lymphocytes % (A) 9.2 %; MCH 26.2 pg (27.0-32.0); MCHC 30.4 g/dL (32.0-37.0); MCV 86.4 fL (80.0-97.0); Monocytes # (A) 0.04 10*3/uL (0.20-1.00); Monocytes % (A) 0.7 %; Neutrophils # (A) 5.47 10*3/uL (1.80-7.70); Neutrophils % (A) 89.3 %; Platelet Count 286 10*3/uL (140-440); RBC 4.27 10*6/uL (4.10-5.20); RDW 14.9 % (11.5-14.5); WBC 6.12 10*3/uL (4.50-10.00)
[2025-01-22 09:06] LABS: ALT 11 U/L (4-34); AST 17 U/L (14-36); African American GFR (CKD) >90 (>60 ml/min/1.73 sqM); Albumin 3.7 g/dL (3.5-5.0); Albumin/Globulin Ratio 1.5; Alkaline Phosphatase 93 U/L (38-126); Anion Gap 10 mmol/L; Blood Urea Nitrogen 20 mg/dL (7-17); Calcium 9.3 mg/dL (8.4-10.2); Carbon Dioxide 25 mmol/L (22-30); Chloride 103 mmol/L (98-107); Globulin 2.5 g/dL; Glucose 141 mg/dL (74-99); Non-African American GFR(CKD) 87 (>60 ml/min/1.73 sqM); Potassium 4.9 mmol/L (3.5-5.1); Sodium 138 mmol/L (137-145); Total Bilirubin 0.3 mg/dL (0.2-1.3); Total Protein 6.2 g/dL (6.3-8.2)
[2025-01-22] MEDS: LORazepam 1 MG/0.5 ML VIAL IV PRN (14:23)
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
--- NOTE | 2025-01-24 12:03 | DS ---
DISCHARGE SUMMARY Olffl-[id number] diastolic CHF. Give her IV Lasix during the hospital. Pain control was given. She will be worked up for abdominal pain. CAT scan of abdomen and pelvis was negative. She has generalized weakness due to right-sided heart failure, acute-on- chronic diastolic heart failure, COPD, chronic atrial fibrillation, Parkinson's, cervical lumbar degenerative disk disease, diabetes mellitus, and hypothyroidism. Diet is regular. Ambulate as tolerated with physical therapy. She has 2 weeks of physical therapy to get her moving in a [facility] for rehab. She is stable. MEDICATIONS: 1. DuoNeb q.i.d. 2. Lidocaine patch 4% daily. 3. She takes Tylenol 500 t.i.d. 4. Aldactone 25 daily. 5. Celexa 20 daily. 6. Eliquis 2.5 b.i.d. 7. Multivitamin daily. 8. Sinemet 10/100 t.i.d. 9. Xanax 0.25 q.12h p.r.n. 10.Synthroid 150 mcg daily. 11.Lasix 20 mg daily. 12.Baclofen 10 mg q.8 hours p.r.n. 13.Jardiance 10 mg daily. 14.Oxy IR 10 mg q.6h p.r.n. CONDITION: Stable. PROGNOSIS: Guarded. Follow up as an outpatient. Please see further orders. Condition stable, just needs PT/OT. HARRIS / YADIRAN: [id number] /
[2025-01-24 14:03] VITALS: BP 129/68; PULSE 92; RESP 18; TEMP 98.4
[2025-01-24] MEDS: LORazepam 0.5 MG TAB PO PRN (16:07)
== END 2025-01-24 19:31 ==
LOC: EC 17:23 → 6NMEDSUR 19:54
PROVIDERS: ADMIT Family Medicine; ATTEND Family Medicine
DX: J44.1 Chronic obstructive pulmonary disease with (acute) exacerbation (principal); I11.0 Hypertensive heart disease with heart failure; I50.33 Acute on chronic diastolic (congestive) heart failure; J96.11 Chronic respiratory failure with hypoxia; M47.26 Other spondylosis with radiculopathy, lumbar region; M50.30 Other cervical disc degeneration, unspecified cervical region; I48.0 Paroxysmal atrial fibrillation; G20.A1 Parkinson's disease without dyskinesia, without mention of fluctuations; E03.9 Hypothyroidism, unspecified; E66.01 Morbid (severe) obesity due to excess calories; E78.5 Hyperlipidemia, unspecified; G47.30 Sleep apnea, unspecified; G89.29 Other chronic pain; I25.10 Atherosclerotic heart disease of native coronary artery without angina pectoris; I25.2 Old myocardial infarction; K21.9 Gastro-esophageal reflux disease without esophagitis; Z59.01 Sheltered homelessness; Z68.44 Body mass index [BMI] 60.0-69.9, adult; Z79.01 Long term (current) use of anticoagulants; Z79.84 Long term (current) use of oral hypoglycemic drugs; Z79.890 Hormone replacement therapy; Z79.899 Other long term (current) drug therapy; Z85.41 Personal history of malignant neoplasm of cervix uteri; Z85.42 Personal history of malignant neoplasm of other parts of uterus; Z86.711 Personal history of pulmonary embolism; Z86.73 Personal history of transient ischemic attack (TIA), and cerebral infarction without residual deficits; Z91.148 Patient's other noncompliance with medication regimen for other reason; Z91.81 History of falling; Z96.642 Presence of left artificial hip joint; Z96.653 Presence of artificial knee joint, bilateral; Z99.81 Dependence on supplemental oxygen; F32.9 Major depressive disorder, single episode, unspecified; F41.9 Anxiety disorder, unspecified; Z88.8 Allergy status to other drugs, medicaments and biological substances; Z88.6 Allergy status to analgesic agent; Z68.43 Body mass index [BMI] 50.0-59.9, adult
CPT/HCPCS: 96376 ×7; 96374 ×4; 96375 ×4; 99285; 94640 ×8; 94760 ×3; 93005; 97530 ×3; 97161; 97535 ×2; 97166; 83880; 80053 ×2; 83735; 84100; 84484; 85025 ×2; 85610; 85730; 81001; 71046; 71250; 74150; G0378 ×8; J2060 ×3; J2405; J1171 ×8; J2919 ×4; J1938 ×2

== ENCOUNTER 2025-02-13 17:55 | Emergency (ER) | payer MEDICARE, OTHER ==
[2025-02-13 18:20] VITALS: RESP 16
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
--- NOTE | 2025-02-13 20:20 | XR ---
EXAMINATION TYPE: XR humerus LT DATE OF EXAM: 02/13/2025 8:12 PM COMPARISON: None CLINICAL INDICATION: Female, 74 years old with history of Fall, spine and left arm pain; PHH, pain TECHNIQUE: XR humerus LT examined in frontal and lateral projections. FINDINGS: No evidence of acute osseous pathology, joint dislocation, or soft tissue swelling. The rem aining portions of the visualized chest are unremarkable. IMPRESSION: No acute osseous pathology. [facility], , 02/13/2025 8:17 PM
[2025-02-13] MEDS: HYDROmorphone 0.5 MG/0.5 ML SYRINGE IM STA (20:36)
[2025-02-13] MEDS: HYDROmorphone 1 MG/ML 1 ML SYRINGE IM STA (22:12)
--- NOTE | 2025-02-14 00:03 | CT ---
EXAM: CT Cervical Spine Without Intravenous Contrast CLINICAL HISTORY: ITS.REASON CT Reason: Fall, spine and left arm pain TECHNIQUE: Axial computed tomography images of the cervical spine without intravenous contrast. CTDI is 23.13 mGy and DLP is 1541.3 mGy-cm. This CT exam was performed using one or more of the following dose reduction techniques: automated exposure control, adjustment of the mA and/or kV according to patient size, and/or use of iterative reconstruction technique. COMPARISON: No relevant prior studies available. FINDINGS: The vertebral body heights are maintained. The craniocervical junction is intact. The atlanto-dens interval is maintained. The dens is intact. There is no spondylolisthesis. Multilevel cervical spondylosis and degenerative disc disease. Straightening of the cervical lordosis. IMPRESSION: No acute fracture or subluxation of the cervical spine. EXAM: CT Thoracic Spine Without Intravenous Contrast CLINICAL HISTORY: ITS.REASON CT Reason: Fall, spine and left arm pain TECHNIQUE: Axial computed tomography images of the thoracic spine without intravenous contrast. CTDI is 23.13 mGy and DLP is 1541.3 mGy-cm. This CT exam was performed using one or more of the following dose reduction techniques: automated exposure control, adjustment of the mA and/or kV according to patient size, and/or use of iterative reconstruction technique. COMPARISON: No relevant prior studies available. FINDINGS: The vertebral body heights are maintained. The thoracic kyphosis is preserved. There is no spondylolisthesis. Posterior fusion at T7-T8. The posterior elements are maintained, without evidence of acute fracture. The pedicles are intact. Multilevel thoracic spondylosis and degenerative disc disease. IMPRESSION: 1. No acute fracture or subluxation of the thoracic spine. 2. Posterior fusion at T7-T8. EXAM: CT Lumbar Spine Without Intravenous Contrast CLINICAL HISTORY: ITS.REASON CT Reason: Fall, spine and left arm pain TECHNIQUE: Axial computed tomography images of the lumbar spine without intravenous contrast. CTDI is 23.13 mGy and DLP is 1541.3 mGy-cm. This CT exam was performed using one or more of the following dose reduction techniques: automated exposure control, adjustment of the mA and/or kV according to patient size, and/or use of iterative reconstruction technique. COMPARISON: No relevant prior studies available. FINDINGS: The vertebral body heights are maintained. The lumbar lordosis is preserved. There is no spondylolisthesis. The posterior elements are maintained, without evidence of acute fracture. The pedicles are intact. Multilevel lumbar spondylosis and degenerative disc disease. IMPRESSION: No acute fracture or subluxation of the lumbar spine.
[2025-02-14] MEDS: oxyCODONE-APAP 7.5-325MG 1 EACH TAB PO STA (00:37)
[2025-02-14 01:06] VITALS: BP 113/72; PULSE 91; TEMP 98.2
== END 2025-02-14 00:40 | disposition home or self-care (01) ==
LOC: EC 17:55
DX: S40.022A Contusion of left upper arm, initial encounter (principal); M54.9 Dorsalgia, unspecified; Z88.6 Allergy status to analgesic agent; Z88.8 Allergy status to other drugs, medicaments and biological substances; W19.XXXA Unspecified fall, initial encounter
CPT/HCPCS: 73060; 72128; 72125; 72131; 99284; 96372 ×2; J1171 ×2

== ENCOUNTER 2025-02-19 13:42 | Emergency (ER) | payer MEDICARE, OTHER ==
[2025-02-19 13:51] VITALS: TEMP 98.7
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
[2025-02-19] MEDS: HYDROmorphone 1 MG/ML 1 ML SYRINGE IM STA (14:10)
[2025-02-19 14:53] VITALS: BP 118/82; PULSE 89; RESP 12
[2025-02-19] MEDS: HYDROmorphone 0.5 MG/0.5 ML SYRINGE IM STA (15:27)
== END 2025-02-19 15:45 | disposition home or self-care (01) ==
LOC: EC 13:42
DX: S16.1XXA Strain of muscle, fascia and tendon at neck level, initial encounter (principal); Z88.6 Allergy status to analgesic agent; Z88.5 Allergy status to narcotic agent; Z88.8 Allergy status to other drugs, medicaments and biological substances; Z86.73 Personal history of transient ischemic attack (TIA), and cerebral infarction without residual deficits; X58.XXXA Exposure to other specified factors, initial encounter
CPT/HCPCS: 99283; 96372; J1171 ×2

== ENCOUNTER 2025-02-19 21:58 | Emergency (ER) | payer MEDICARE, OTHER ==
[2025-02-19 22:09] VITALS: RESP 20
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
[2025-02-19] MEDS: HYDROmorphone 1 MG/ML 1 ML SYRINGE IM STA (22:35)
[2025-02-19] MEDS: hydrOXYzine HCL 25 MG TAB PO STA (22:46)
[2025-02-20 01:08] VITALS: BP 100/54; PULSE 97; TEMP 98.7
== END 2025-02-20 00:39 | disposition home or self-care (01) ==
LOC: EC 21:58
DX: E66.01 Morbid (severe) obesity due to excess calories (principal); M54.50 Low back pain, unspecified; Z68.44 Body mass index [BMI] 60.0-69.9, adult; Z88.8 Allergy status to other drugs, medicaments and biological substances; Z88.6 Allergy status to analgesic agent; Z88.5 Allergy status to narcotic agent
CPT/HCPCS: 99283; 96372; J1171